=== PATIENT | female | born 1960 | race African-American/Black ===

== ENCOUNTER 2016-12-31 13:04 | Inpatient (IN) | payer MEDICAID ==
[~2016-12-31] VITALS: Ht 154.9 cm; Wt 90.0 kg
[~2016-12-31 13:04] MED LIST: ACET325T16 PO; ALBU2.5V5 NEB; ALPR0.5T5 PO; APIX5TAB PO; ASCO500T3 PO; ASPI81TA2 PO; CARV12.5 PO; CEPH-264 PO; CETI10TA22 PO; CLON0.5T3 PO; DEXT15CA PO; DIGO125T16 PO; FAMO-63 PO; FLUT1DIS5 IH; FURO-68 PO; GABA-585 PO; GLIM2TAB PO; GLUC1KIT IM; INSU100V13 SQ; IPRA3AMP IH; LEVO100T5 PO; LEVOTHYROXINE 100 MCG TABLET PO SCH; LINA5TAB PO; LOPE2TAB56 PO; METF500T4 PO; METO100T11 PO; MONT10TA9 PO; NAPH15DR20 OP; NEO/5DRO EACHEYE; OMEP20TA PO; PRED-220 PO; RISP0.5T18 PO; ROPI1TAB PO; SIME80TA PO; SIMV20TA3 PO; [UNRECOGNIZED DRUG - CODE] PO
--- NOTE | 2016-12-31 13:25 | EKG ---
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
[2016-12-31 13:59] LABS: BASO # 0.1 x10^3/uL (0.0-0.2); BASO % 1 % (0-3); EOS % 3 % (0-3); HEMATOCRIT 33.1 % (36.0-47.0); HEMOGLOBIN 10.8 g/dL (12.0-15.5); LYMPH # 2.5 x10^3/uL (1.0-4.8); LYMPH % 29 % (24-48); MEAN CORPUSCULAR HEMOGLOBIN 30 pg (25-35); MEAN CORPUSCULAR HGB CONC 33 g/dL (31-37); MEAN CORPUSCULAR VOLUME 93 fL (79-100); MONO % 7 % (0-9); NEUT % 60 % (31-73); PLATELET COUNT 168 x10^3/uL (140-400); RED BLOOD COUNT 3.54 x10^6/uL (3.50-5.40); WHITE BLOOD COUNT 8.4 x10^3/uL (4.0-11.0)
[2016-12-31 14:01] LABS: CREATININE 1.1 mg/dL (0.6-1.0); GFR 62.4
[2016-12-31 14:07] LABS: ALBUMIN 3.3 g/dL (3.4-5.0); ALBUMIN/GLOBULIN RATIO 0.8 (1.0-1.7); TOTAL BILIRUBIN 0.2 mg/dL (0.2-1.0); TOTAL PROTEIN 7.7 g/dL (6.4-8.2)
--- NOTE | 2016-12-31 14:15 | RAD ---
Portable chest, 12/31/2016: History: Chest pain, pacemaker failure Comparison is made to a study from 09/30/2016. A left-sided transvenous pacemaker remains in place 3 leads extending into the heart. The patient is rotated to the left. The heart is mildly enlarged. The pulmonary vascularity is normal. No pulmonary infiltrate is seen. A density in the left lateral costophrenic angle is probably due to an epicardial fat pad accentuated by patient rotation. No definite pleural fluid is seen. IMPRESSION: Suboptimal exam demonstrating no acute abnormality.
[2016-12-31 14:16] LABS: CKMB INDEX 0.6 % (0-4)
[2016-12-31] MEDS ORDERED: MAGNESIUM SULFATE 1GM 100 ML IV ONE (15:00)
--- NOTE | 2016-12-31 15:13 | PHYS DOC ---
Past Medical History Past Medical History: Anxiety, Arthritis, CHF, Depression, Diabetes-Type II, GERD, Hypertension, Schizophrenia, Other Additional Past Medical Histor: SCHIZO,RESTLESS LEG Past Surgical History: Pacemaker, Other Additional Past Surgical Histo: Pacemaker/defib Alcohol Use: None Drug Use: None Adult General Chief Complaint Chief Complaint: OTHER COMPLAINTS [facility] HPI Patient is a 56 year old female who presents with complains of left-sided chest pain that was shocking and severe in nature and dropped her to her knees. This occurred approximately 12:10 or 12:30 today. She thinks her ICD fired. She has resultant fatigue. She denies current chest pain. States it was brief. She denies cough, fever or chills, hemoptysis, dyspnea, orthopnea, leg pain or swelling, back pain, abdominal pain. Review of Systems Review of Systems Constitutional: Denies fever or chills [] Eyes: Denies change in visual acuity, redness, or eye pain [] HENT: Denies nasal congestion or sore throat [] Respiratory: Denies cough or shortness of breath [] Cardiovascular: No additional information not addressed in HPI [] GI: Denies abdominal pain, nausea, vomiting, bloody stools or diarrhea [] : Denies dysuria or hematuria [] Musculoskeletal: Denies back pain or joint pain [] Integument: Denies rash or skin lesions [] Neurologic: Denies headache, focal weakness or sensory changes [] Endocrine: Denies polyuria or polydipsia [] Current Medications Current Medications Current Medications Medications (Trade) Dose Ordered Sig/Eber Start Time Stop Time Status Last Admin Dose Admin Levothyroxine Sodium (Synthroid) 100 mcg DAILY06 12/31/16 06:00 12/31/16 18:42 DC Magnesium Sulfate/ Dextrose (Magnesium Sulfate PREMIX 1GM) 100 ml @ 100 mls/hr 1X ONCE 12/31/16 15:00 12/31/16 15:59 DC 12/31/16 15:07 100 MLS/HR Allergies Allergies Allergies Coded Allergies Type Severity Reaction Last Updated Verified lactose Allergy Intermediate 02/25/16 Yes lisinopril Allergy Intermediate 08/08/15 Yes Physical Exam Physical Exam Constitutional: Well developed, well nourished, no acute distress, non-toxic appearance. [] HENT: Normocephalic, atraumatic, bilateral external ears normal, oropharynx moist, nose normal. [] Eyes: PERRLA, EOMI. [] Neck: Normal range of motion, no tenderness, supple. [] Cardiovascular:Heart rate regular rhythm [] Lungs & Thorax: Bilateral breath sounds clear to auscultation. Left upper chest wall tenderness with no palpable or visual abnormality. ICD to left upper chest with no overlying skin changes [] Abdomen: Bowel sounds normal, soft, no tenderness. [] Skin: Warm, dry, no erythema, no rash. [] Back: No tenderness, no CVA tenderness. [] Extremities: No tenderness, ROM intact, no edema. [] Neurologic: Alert and oriented X 3, normal motor function, normal sensory function, no focal deficits noted. [] Psychologic: Affect normal, judgement normal, mood normal. [] Current Patient Data Vital Signs Vital Signs Date Time Temp Pulse Resp B/P Pulse Ox O2 Delivery O2 Flow Rate FiO2 12/31/16 14:44 62 14 118/58 98 Nasal Cannula 2 12/31/16 13:08 98.0 98.0 Lab Values Laboratory Tests Test 12/31/16 13:25 White Blood Count 8.4x10^3/uL (4.0-11.0) Red Blood Count 3.54x10^6/uL (3.50-5.40) Hemoglobin 10.8g/dL (12.0-15.5) L Hematocrit 33.1% (36.0-47.0) L Mean Corpuscular Volume 93fL (79-100) Mean Corpuscular Hemoglobin 30pg (25-35) Mean Corpuscular Hemoglobin Concent 33g/dL (31-37) Red Cell Distribution Width 15.0% (11.5-14.5) H Platelet Count 168x10^3/uL (140-400) Neutrophils (%) (Auto) 60% (31-73) Lymphocytes (%) (Auto) 29% (24-48) Monocytes (%) (Auto) 7% (0-9) Eosinophils (%) (Auto) 3% (0-3) Basophils (%) (Auto) 1% (0-3) Neutrophils # (Auto) 5.0x10^3uL (1.8-7.7) Lymphocytes # (Auto) 2.5x10^3/uL (1.0-4.8) Monocytes # (Auto) 0.6x10^3/uL (0.0-1.1) Eosinophils # (Auto) 0.2x10^3/uL (0.0-0.7) Basophils # (Auto) 0.1x10^3/uL (0.0-0.2) Sodium Level 141mmol/L (136-145) Potassium Level 4.0mmol/L (3.5-5.1) Chloride Level 101mmol/L (98-107) Carbon Dioxide Level 32mmol/L (21-32) Anion Gap 8 (6-14) Blood Urea Nitrogen 12mg/dL (7-20) Creatinine 1.1mg/dL (0.6-1.0) H Estimated GFR (Cockcroft-Gault) 62.4 BUN/Creatinine Ratio 11 (6-20) Glucose Level 168mg/dL (70-99) H Calcium Level 9.0mg/dL (8.5-10.1) Magnesium Level 1.7mg/dL (1.8-2.4) L Total Bilirubin 0.2mg/dL (0.2-1.0) Aspartate Amino Transferase (AST) 25U/L (15-37) Alanine Aminotransferase (ALT) 28U/L (14-59) Alkaline Phosphatase 103U/L (46-116) Creatine Kinase 164U/L (26-192) Creatine Kinase MB (Mass) 1.0ng/mL (0.0-3.6) Creatine Kinase MB Relative Index 0.6% (0-4) Troponin I Quantitative < 0.017ng/mL (0.000-0.055) Total Protein 7.7g/dL (6.4-8.2) Albumin 3.3g/dL (3.4-5.0) L Albumin/Globulin Ratio 0.8 (1.0-1.7) L Laboratory Tests 12/31/16 13:25 Laboratory Tests 12/31/16 13:25 EKG EKG EKG as interpreted by me as Ventricularly paced rhythm, rate 73, PVC, no ischemic changes Radiology/Procedures Radiology/Procedures Chest xray as interpreted by me with no acute cardiopulmonary disease process Course & Med Decision Making Course & Med Decision Making Pertinent Labs and Imaging studies reviewed. (See chart for details) Workup is unremarkable other than hypomagnesemia which is replaced IV. Her [facility] pacer interrogation showed no events causing her symptoms. We will admit for ACS rule out. Discussed case with Geovanna CORBIN, cardiology. Discussed case with Dr. Leon, who will admit. Lisa Disclaimer Juan Albertoon Disclaimer This electronic medical record was generated, in whole or in part, using a voice recognition dictation system. Departure Departure Impression: Primary Impression: Chest pain Additional Impression: Hypomagnesemia Disposition: ADMITTED INPATIENT Condition: STABLE Referrals: YAW MTZ (PCP) Problem Qualifiers Primary Impression: Chest pain Chest pain type: unspecified Qualified Code: R07.9 - Chest pain, unspecified Guerline BLEDSOE MD Dec 31, 2016 15:13
[2016-12-31] MEDS ORDERED: ONDANSETRON PF 4 MG/2 ML VIAL. IV PRN ×2 (15:15→17:47)
[2016-12-31] MEDS ORDERED: FENTANYL PF 100 MCG/2 ML VIAL. IV PRN (15:15)
[2016-12-31] MEDS ORDERED: ACETAMINOPHEN 325 MG TABLET. PO PRN ×2 (15:15→18:00)
--- NOTE | 2016-12-31 16:33 | PDOC2 ---
YADY HUMPHREY ADDICTION PSYCHIATRIST 12/31/16 1633: CARDIAC CONSULT DATE OF CONSULT Date of Consult DATE: 12/31/16 TIME: 16:15 REASON FOR CONSULT Reason for Consult: chest pain REFERRING PHYSICIAN Referring Physician: Dr. Eliud Pizarro SOURCE Source: Chart review, Patient HISTORY OF PRESENT ILLNESS HISTORY OF PRESENT ILLNESS 56 year old female who was eating lunch today when she developed a "light pain" in the left chest without radiation or associated symptoms. Does report palpations. She though her ICD had fired and presented to the ER. Interrogation has been completed without evidence of device shocking pt and with appropriate function. Has a history of tachydysrhythmias occurring in September with multiple ICD shocks with subsequent lengthening of the VT zone and resolution of symptoms. EKG with V pacing; atrial sensing. Initial troponin not consistent with AMI. Mg 1.7 and has been replaced. 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) Pulmonary: Asthma CENTRAL NERVOUS SYSTEM: Other (restless legs; sleep disorder) GI: GERD, Other (dysphagia) Heme/Onc: No pertinent hx Hepatobiliary: No pertinent hx Psych: Anxiety, Depression, Schizophrenia Musculoskeletal: Osteoarthritis, Other (obesity) Rheumatologic: No pertinent hx Infectious disease: No pertinent hx ENT: No pertinent hx Renal/: UTI Endocrine: Diabetes, Hypothyroidism PAST SURGICAL HISTORY Past Surgical History Pacemaker ([facility] [employer] DRIVER-D; [employer] leads) FAMILY HISTORY Family History: Family History Unknown SOCIAL HISTORY Social History Smoke: <1 pack per day ALCOHOL: none Drugs: None Lives: Long Term CURRENT MEDICATIONS CURRENT MEDICATIONS Current Medications Medications (Trade) Dose Ordered Sig/Eber Route PRN Reason Start Time Stop Time Status Last Admin Dose Admin Magnesium Sulfate/ Dextrose (Magnesium Sulfate PREMIX 1GM) 100 ml @ 100 mls/hr 1X ONCE IV 12/31/16 15:00 12/31/16 15:59 DC 12/31/16 15:07 ALLERGIES ALLERGIES: Coded Allergies: lactose (Verified Allergy, Intermediate, 02/25/16) lisinopril (Verified Allergy, Intermediate, 08/08/15) ROS Review of System 14 point review completed with pertinent positives in HPI PHYSICAL EXAM General: Alert, Oriented X3, Cooperative, No acute distress HEENT: Atraumatic, PERRLA Lungs: Clear to auscultation, Normal air movement Heart: Regular rate, Normal S1, Normal S2, No murmurs, Other (well healed ICD implant site left pectoral ) Abdomen: Normal bowel sounds, Soft, No tenderness Extremities: No edema, Normal pulses Skin: No rashes Neuro: Normal speech Psych/Mental Status: Mental status NL, Mood NL MUSCULOSKELETAL: No deformity VITALS VITALS Vital Signs Date Time Temp Pulse Resp B/P Pulse Ox O2 Delivery O2 Flow Rate FiO2 12/31/16 13:08 98.0 65 15 153/74 99 Nasal Cannula 2 98.0 LABS Lab: Laboratory Tests Test 12/31/16 13:25 White Blood Count 8.4x10^3/uL (4.0-11.0) Red Blood Count 3.54x10^6/uL (3.50-5.40) Hemoglobin 10.8g/dL (12.0-15.5) Hematocrit 33.1% (36.0-47.0) Mean Corpuscular Volume 93fL (79-100) Mean Corpuscular Hemoglobin 30pg (25-35) Mean Corpuscular Hemoglobin Concent 33g/dL (31-37) Red Cell Distribution Width 15.0% (11.5-14.5) Platelet Count 168x10^3/uL (140-400) Neutrophils (%) (Auto) 60% (31-73) Lymphocytes (%) (Auto) 29% (24-48) Monocytes (%) (Auto) 7% (0-9) Eosinophils (%) (Auto) 3% (0-3) Basophils (%) (Auto) 1% (0-3) Neutrophils # (Auto) 5.0x10^3uL (1.8-7.7) Lymphocytes # (Auto) 2.5x10^3/uL (1.0-4.8) Monocytes # (Auto) 0.6x10^3/uL (0.0-1.1) Eosinophils # (Auto) 0.2x10^3/uL (0.0-0.7) Basophils # (Auto) 0.1x10^3/uL (0.0-0.2) Sodium Level 141mmol/L (136-145) Potassium Level 4.0mmol/L (3.5-5.1) Chloride Level 101mmol/L (98-107) Carbon Dioxide Level 32mmol/L (21-32) Anion Gap 8 (6-14) Blood Urea Nitrogen 12mg/dL (7-20) Creatinine 1.1mg/dL (0.6-1.0) Estimated GFR (Cockcroft-Gault) 62.4 BUN/Creatinine Ratio 11 (6-20) Glucose Level 168mg/dL (70-99) Calcium Level 9.0mg/dL (8.5-10.1) Magnesium Level 1.7mg/dL (1.8-2.4) Total Bilirubin 0.2mg/dL (0.2-1.0) Aspartate Amino Transf (AST/SGOT) 25U/L (15-37) Alanine Aminotransferase (ALT/SGPT) 28U/L (14-59) Alkaline Phosphatase 103U/L (46-116) Creatine Kinase 164U/L (26-192) Creatine Kinase MB (Mass) 1.0ng/mL (0.0-3.6) Creatine Kinase MB Relative Index 0.6% (0-4) Troponin I Quantitative < 0.017ng/mL (0.000-0.055) Total Protein 7.7g/dL (6.4-8.2) Albumin 3.3g/dL (3.4-5.0) Albumin/Globulin Ratio 0.8 (1.0-1.7) IMAGES IMAGES CXR: Comparison is made to a study from 09/30/2016. A left-sided transvenous pacemaker remains in place 3 leads extending into the heart. The patient is rotated to the left. The heart is mildly enlarged. The pulmonary vascularity is normal. No pulmonary infiltrate is seen. A density in the left lateral costophrenic angle is probably due to an epicardial fat pad accentuated by patient rotation. No definite pleural fluid is seen. IMPRESSION: Suboptimal exam demonstrating no acute abnormality. EKG EKG no acute changes ECHOCARDIOGRAM ECHOCARDIOGRAM 02/2016: TTE: Moderate LV systolic dysfunction. EF 35-40%. Moderate mitral regurgitation. ASSESSMENT/PLAN ASSESSMENT/PLAN 1. chest pain no acute changes in EKG and initial troponin not consistent with AMI continue serial markers re-evaluate in a.m. 2. 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 chronic systolic HF with mod MR well compensated continue medical management 4. HTN controlled with meds 5. HLD continue statin therapy 6. atrial fib history rate control with BB OAC with Eliquis Problems: DEANNA PEMBERTON MD 12/31/16 1724: CARDIAC CONSULT ALLERGIES ALLERGIES: Coded Allergies: lactose (Verified Allergy, Intermediate, 02/25/16) lisinopril (Verified Allergy, Intermediate, 08/08/15) ASSESSMENT/PLAN ASSESSMENT/PLAN Patient seen and examined agree with progress practitioner note. 56-year-old woman well known to us with prior history of atrial fibrillation with a rapid ventricular response and inappropriate ICD shocks who presents with what appears to be a feeling of recurrent shocks. Her ICD interrogation today did not reveal any significant pathology. Patient has had some GI upset and given her cognitive impairment this is likely the cause of her symptoms. No further cardiac testing necessary at this time. Continue supportive care. Monitor overnight for any arrhythmias. Okay to discharge back to nursing facility tomorrow. Thank you for this consultation. Problems: YADY HUMPHREY APRN Dec 31, 2016 16:33 DEANNA PEMBERTON MD Dec 31, 2016 17:24
--- NOTE | 2016-12-31 16:50 | PDOC1 ---
History and Physical Date of Admission Date of Admission DATE: 12/31/16 TIME: 16:44 Identification/Chief Complaint Chief Complaint syncope while eating at [facility] Source Source: Caregiver, Chart review, Patient History of Present Illness History of Present Illness 56 y/o female, poor historian, resident of [facility] few yrs now, was eating a meatloaf and claims passed out, Unsure of details, She felt her heart palpitating she says prior to passing out, NO other sxs. HAs an indwelling defib /pacer for tachyarrhythmias (reason for previous admits). Now feels ok, hungry, munching on some chips PAcer interrogated, apparently no firing Pt admitted under the advice of cards I last saw her Sep 1016 for the ff: 1. Tachycardia/SVT/AFIB RVR with ICD SHOCK 2. CHF, systolic, stable, mod MR 3. htn 4. HLD 5. DM2 6.Hx of schizophrenia 7. Depression 8. anxiety 9. GERD Past Medical History Cardiovascular: CHF, HTN, Hyperlipidemia, Other Pulmonary: Asthma CENTRAL NERVOUS SYSTEM: Other GI: GERD, Other Heme/Onc: No pertinent hx Hepatobiliary: No pertinent hx Psych: Anxiety, Depression, Schizophrenia Musculoskeletal: Osteoarthritis, Other Rheumatologic: No pertinent hx Infectious disease: No pertinent hx Renal/: UTI Endocrine: Diabetes, Hypothyroidism Past Surgical History Past Surgical History: Pacemaker Family History Family History: Family History Unknown Social History Smoke: No ALCOHOL: none Drugs: None Current Problem List Problem List Problems Medical Problems: (1) Chest pain Status: Acute Problems: Current Medications Current Medications Current Medications Magnesium Sulfate/ Dextrose (Magnesium Sulfate PREMIX 1GM) 100 ml @ 100 mls/hr 1X ONCE IV Last administered on 12/31/16t 15:07; Start 12/31/16 at 15:00; Stop 12/31/16 at 15:59; Status DC Ondansetron HCl (Zofran) 4 mg PRN Q8HRS PRN IV NAUSEA/VOMITING; Start 12/31/16 at 15:15; Stop 01/01/17 at 15:14 Fentanyl Citrate (Fentanyl 2ml Vial) 50 mcg PRN Q2HR PRN IV PAIN; Start at 15:15; Stop 01/01/17 at 15:14 Acetaminophen (Tylenol) 650 mg PRN Q4HRS PRN PO FEVER; Start 12/31/16 at 15:15 ; Stop 01/01/17 at 15:14 Active Scripts Active Mapap (Acetaminophen) 325 Mg Tablet 650 Mg PO PRN Q6HRS PRN Metoprolol Succinate ( Xl ) (Metoprolol Succinate) 100 Mg Tab.er.24h 100 Mg PO DAILY Lanoxin (Digoxin) 125 Mcg Tablet 125 Mcg PO DAILY Eliquis (Apixaban) 5 Mg Tablet 5 Mg PO BID Reported Clonazepam 0.5 Mg Tablet 1 Tab PO BID Zyrtec (Cetirizine Hcl) 10 Mg Tablet 1 Tab PO DAILY Ascorbic Acid 500 Mg Tablet 500 Mg PO BID Tradjenta (Linagliptin) 5 Mg Tablet 1 Tab PO DAILY Simvastatin 20 Mg Tablet 1 Tab PO QHS Risperdal (Risperidone) 0.5 Mg Tablet 1 Tab PO QHS Requip (Ropinirole Hcl) 1 Mg Tablet 1 Tab PO QHS Pepcid (Famotidine) 20 Mg Tablet 1 Tab PO BID Omeprazole 20 Mg Tablet.dr 1 Tab PO DAILY Naphazoline Hcl 15 Ml Drops 15 Ml OP Q4HRS PRN Montelukast Sodium Tablet (Montelukast Sodium) 10 Mg Tablet 1 Tab PO DAILY Metformin Hcl 500 Mg Tablet 0.5 Tab PO BID Anti-Diarrhea (Loperamide Hcl) 2 Mg Tablet 2 Mg PO DAILY PRN Levothyroxine Sodium 100 Mcg Tablet 1 Tab PO DAILY Levemir (Insulin Detemir) 100 Unit/1 Ml Vial 20 Unit SQ BID Lasix (Furosemide) 40 Mg Tablet 1 Tab PO DAILY Lactase Enzyme (Lactase) 4,500 Unit Tablet 4,500 Unit PO Duoneb 0.5-3(2.5) Mg/3 Ml (Albuterol/Ipratropium) 3 Ml Ampul.neb 3 Ml IH QID Glucagon Emergency Kit (Glucagon,Human Recombinant) 1 Mg Kit 1 Mg IM PRN Gas-X (Simethicone) 80 Mg Tab.chew 160 Mg PO Q2HR PRN Gabapentin 100 Mg Capsule 200 Mg PO TID Cough Relief (Dextromethorphan Hbr) 15 Mg Capsule 15 Mg PO Q6HRS PRN Aspirin 81 Mg Tab.chew 1 Tab PO DAILY Amaryl (Glimepiride) 2 Mg Tablet 2 Mg PO DAILY Alprazolam Er (Alprazolam) 0.5 Mg Tab.er.24h 0.25 Mg PO TID Albuterol Sulfate Neb Soln (Albuterol Sulfate) 2.5 Mg/3 Ml Vial.neb 1 Vial NEB PRN Q4HRS Advair 500-50 Diskus (Fluticasone/Salmeterol) 1 Each Disk.w.dev 1 Puff IH BID Allergies Allergies: Coded Allergies: lactose (Verified Allergy, Intermediate, 02/25/16) lisinopril (Verified Allergy, Intermediate, 08/08/15) ROS General: No: Appetite, Chills, Fatigue, Malaise, Night Sweats, Other PSYCHOLOGICAL ROS: No: Anxiety, Behavioral Disorder, Concentration difficultie , Decreased libido, Depression, Disorientation, Hallucinations, Hostility, Irritablity, Memory difficulties, Mood Swings, Obsessive thoughts, Other, Physical abuse, Sexual abuse, Sleep disturbances, Suicidal ideation Eyes: No Blurry vision, No Decreased vision, No Double vision, No Dry eyes, No Excessive tearing, No Eye Pain, No Itchy Eyes, No Loss of vision, No Other, No Photophobia, No Scotomata, No Uses contacts, No Uses glasses HEENT: No: Epistaxis, Heacaches, Hearing change, Nasal congestion, Nasal discharge, Oral lesions, Other, Sinus pain, Sneezing, Snoring, Sore Throat, Tinnitus, Vertigo, Visual Changes, Vocal changes ALLERGY AND IMMUNOLOGY: No: Hives, Insect Bite Sensitivity, Itchy/Watery Eyes, Nasal Congestion, Other, Post Nasal Drip, Seasonal Allergies Hematological and Lymphatic: No: Bleeding Problems, Blood Clots, Blood Transfusions, Brusing, Night Sweats, Other, Pallor, Swollen Lymph Nodes ENDOCRINE: No: Breast Changes, Galactorrhea, Hair Pattern Changes, Hot Flashes , Malaise/lethargy, Mood Swings, Other, Palpitations, Polydipsia/polyuria, Skin Changes, Temperature Intolerance, Unexpected Weight Changes Breast: No New/Changing Breast Lumps, No Nipple changes, No Nipple discharge, No Other Respiratory: No: Cough, Hemoptysis, Orthopnea, Other, Pleuritic Pain, SOB with excertion, Shortness of breath, Sputum Changes, Stridor, Tachypnea, Wheezing Cardiovascular: No Chest Pain, No Edema, No Lt Headedness, No Orthopnea, No Other, No Palpitations, No Paroxysmal Noc. Dyspnea Gastrointestinal: No Abdominal Pain, No Constipation, No Diarrhea, No Hematochezia, No Melena, No Nausea, No Other, No Vomiting Genitourinary: No , No , No , No , No , No , No , No Discharge, No Dysuria, No Flank Pain, No Frequency, No Hematuria, No Incontinence, No Other, No Pain, No Retention, No Urgency Musculoskeletal: No Gait Disturbance, No Joint Pain, No Joint Stiffness, No Joint Swelling, No Muscle Pain, No Muscular Weakness, No Other, No Pain In:, No Swelling In: Neurological: No Behavorial Changes, No Bowel/Bladder ControlChng, No Confusion , No Dizziness, No Gait Disturbance, No Headaches, No Impaired Coord/balance, No Memory Loss, No Numbness/Tingling, No Other, No Seizures, No Speech Problems , No Tremors, No Visual Changes, No Weakness Skin: No Acne, No Dry Skin, No Eczema, No Hair Changes, No Lumps, No Mole Changes, No Mottling, No Nail Changes, No Other, No Pruritus, No Rash, No Skin Lesion Changes Physical Exam General: Alert, Oriented X3, Cooperative, No acute distress HEENT: Atraumatic, PERRLA Lungs: Clear to auscultation Heart: S1S2, RRR, no thrills, no rubs Cardiovascular: S1 Breasts: Normal Abdomen: Normal bowel sounds, Soft, No tenderness, No hepatosplenomegaly, No masses Rectal Exam: not examined Extremities: No clubbing, No cyanosis, No edema, Normal pulses, No tenderness/ swelling Skin: No rashes, No breakdown, No significant lesion Neuro: Normal gait, Normal speech, Strength at 5/5 X4 ext, Normal tone, Sensation intact, Cranial nerves 3-12 NL, Reflexes 2+ Psych/Mental Status: Mental status NL, Mood NL Vitals Vitals Vital Signs Date Time Temp Pulse Resp B/P Pulse Ox O2 Delivery O2 Flow Rate FiO2 12/31/16 13:08 98.0 65 15 153/74 99 Nasal Cannula 2 98.0 Labs Labs Laboratory Tests Test 12/31/16 13:25 White Blood Count 8.4x10^3/uL (4.0-11.0) Red Blood Count 3.54x10^6/uL (3.50-5.40) Hemoglobin 10.8g/dL (12.0-15.5) Hematocrit 33.1% (36.0-47.0) Mean Corpuscular Volume 93fL (79-100) Mean Corpuscular Hemoglobin 30pg (25-35) Mean Corpuscular Hemoglobin Concent 33g/dL (31-37) Red Cell Distribution Width 15.0% (11.5-14.5) Platelet Count 168x10^3/uL (140-400) Neutrophils (%) (Auto) 60% (31-73) Lymphocytes (%) (Auto) 29% (24-48) Monocytes (%) (Auto) 7% (0-9) Eosinophils (%) (Auto) 3% (0-3) Basophils (%) (Auto) 1% (0-3) Neutrophils # (Auto) 5.0x10^3uL (1.8-7.7) Lymphocytes # (Auto) 2.5x10^3/uL (1.0-4.8) Monocytes # (Auto) 0.6x10^3/uL (0.0-1.1) Eosinophils # (Auto) 0.2x10^3/uL (0.0-0.7) Basophils # (Auto) 0.1x10^3/uL (0.0-0.2) Sodium Level 141mmol/L (136-145) Potassium Level 4.0mmol/L (3.5-5.1) Chloride Level 101mmol/L (98-107) Carbon Dioxide Level 32mmol/L (21-32) Anion Gap 8 (6-14) Blood Urea Nitrogen 12mg/dL (7-20) Creatinine 1.1mg/dL (0.6-1.0) Estimated GFR (Cockcroft-Gault) 62.4 BUN/Creatinine Ratio 11 (6-20) Glucose Level 168mg/dL (70-99) Calcium Level 9.0mg/dL (8.5-10.1) Magnesium Level 1.7mg/dL (1.8-2.4) Total Bilirubin 0.2mg/dL (0.2-1.0) Aspartate Amino Transf (AST/SGOT) 25U/L (15-37) Alanine Aminotransferase (ALT/SGPT) 28U/L (14-59) Alkaline Phosphatase 103U/L (46-116) Creatine Kinase 164U/L (26-192) Creatine Kinase MB (Mass) 1.0ng/mL (0.0-3.6) Creatine Kinase MB Relative Index 0.6% (0-4) Troponin I Quantitative < 0.017ng/mL (0.000-0.055) Total Protein 7.7g/dL (6.4-8.2) Albumin 3.3g/dL (3.4-5.0) Albumin/Globulin Ratio 0.8 (1.0-1.7) Laboratory Tests Test 12/31/16 13:25 White Blood Count 8.4x10^3/uL (4.0-11.0) Red Blood Count 3.54x10^6/uL (3.50-5.40) Hemoglobin 10.8g/dL (12.0-15.5) Hematocrit 33.1% (36.0-47.0) Mean Corpuscular Volume 93fL (79-100) Mean Corpuscular Hemoglobin 30pg (25-35) Mean Corpuscular Hemoglobin Concent 33g/dL (31-37) Red Cell Distribution Width 15.0% (11.5-14.5) Platelet Count 168x10^3/uL (140-400) Neutrophils (%) (Auto) 60% (31-73) Lymphocytes (%) (Auto) 29% (24-48) Monocytes (%) (Auto) 7% (0-9) Eosinophils (%) (Auto) 3% (0-3) Basophils (%) (Auto) 1% (0-3) Neutrophils # (Auto) 5.0x10^3uL (1.8-7.7) Lymphocytes # (Auto) 2.5x10^3/uL (1.0-4.8) Monocytes # (Auto) 0.6x10^3/uL (0.0-1.1) Eosinophils # (Auto) 0.2x10^3/uL (0.0-0.7) Basophils # (Auto) 0.1x10^3/uL (0.0-0.2) Sodium Level 141mmol/L (136-145) Potassium Level 4.0mmol/L (3.5-5.1) Chloride Level 101mmol/L (98-107) Carbon Dioxide Level 32mmol/L (21-32) Anion Gap 8 (6-14) Blood Urea Nitrogen 12mg/dL (7-20) Creatinine 1.1mg/dL (0.6-1.0) Estimated GFR (Cockcroft-Gault) 62.4 BUN/Creatinine Ratio 11 (6-20) Glucose Level 168mg/dL (70-99) Calcium Level 9.0mg/dL (8.5-10.1) Magnesium Level 1.7mg/dL (1.8-2.4) Total Bilirubin 0.2mg/dL (0.2-1.0) Aspartate Amino Transf (AST/SGOT) 25U/L (15-37) Alanine Aminotransferase (ALT/SGPT) 28U/L (14-59) Alkaline Phosphatase 103U/L (46-116) Creatine Kinase 164U/L (26-192) Creatine Kinase MB (Mass) 1.0ng/mL (0.0-3.6) Creatine Kinase MB Relative Index 0.6% (0-4) Troponin I Quantitative < 0.017ng/mL (0.000-0.055) Total Protein 7.7g/dL (6.4-8.2) Albumin 3.3g/dL (3.4-5.0) Albumin/Globulin Ratio 0.8 (1.0-1.7) VTE Prophylaxis Ordered VTE Prophylaxis Devices: Yes VTE Pharmacological Prophylaxi: Yes Assessment/Plan Assessment/Plan 1. Syncope could be sec to arrhythmia, apparently pacer did not fire based on interrogation at ER. 2. TACHYarrhythmias with indwelling pacer 2.SNU resident 3. CHF, systolic, stable, mod MR 4. htn 5. HLD 6. DM2 7.Hx of schizophrenia 8. Depression 9. anxiety 10. GERD PLAn: Admit Further plans per cards resume home meds MIght need to adjust rate controlling agents, pending course here [facility] tele PT/OT while in house Seen at ER , dw pt LOUIS ELIZABETH MD Dec 31, 2016 16:49
--- NOTE | 2016-12-31 16:58 | ACF ---
Admission Forms Criteria CHEST PAIN Clinical Indications for Admission to Inpatient Care (Place 'X' for any and all applicable criteria): Admission is indicated for chest pain and ANY ONE of the following(1)(2)(3)(4)(5 ): [ ]I. Angina with acute coronary syndrome (Also use Myocardial Infarction or Angina guideline) [ ]II. Hemodynamic instability [ ]III. Angina needing acute intervention as indicated by ALL of the following( 11)(12): [ ]a) Unstable angina is present as indicated by angina that is ANY ONE of the following: [ ]i) New onset [ ]ii) Nocturnal [ ]iii) Prolonged at rest [ ]iv) Progressive [ ]b) Angina warrants acute intervention as indicated by ANY ONE of the following: [ ]i) Recurrent angina (e.g, not responding as previously to treatment) [ ]ii) Angina at rest or with low-level activities despite initial medical therapy [ ]iii) New or presumably new ST-segment depression on ECG [ ]iv) Signs or symptoms of heart failure (eg, dyspnea, pulmonary edema) [ ]v) New or worsening mitral regurgitation [ ]vi) Hemodynamic instability [ ]vii) Dangerous arrhythmia (eg, sustained ventricular tachycardia) [ ]viii) History of percutaneous coronary intervention within 6 months [ ]ix) History of coronary artery bypass graft surgery [ ]x) LINNETTE risk score of 2 or greater[A] [ ]xi) History of Diabetes(14) [ ]xii) High-risk cardiac ischemia findings on noninvasive testing (e.g, echocardiogram, treadmill testing, nuclear scan) [ ]xiii) Chronic renal insufficiency (ie, estimated GFR less than 60 mL/min/1.732m) [ ]xiv) Left ventricular ejection fraction less than 40% [ ]IV. Evidence of TN (eg, cardiac biomarkers positive, ST-segment elevation on ECG) also use Myocardial Infarction Criteria Form. [ ]V. Pulmonary edema [ ]. Respiratory distress [ ]VII. Chest pain indicative of serious diagnosis other than coronary artery disease (eg, aortic dissection) [ ]VIII. Contraindications and/or Inappropriate clinical situations for Observational Care in patients with Chest Pain, when ANY ONE of the following is required: [ ]a) Patient with risk factor for pulmonary embolism, acute coronary syndrome and myocardial infarction (18) [ ]b) Patient with Pulmonary embolism require an average LOS of 4.3 days, therefore emergency department observation management is inappropriate 18,23 [ ]c) Painful condition/s in the elderly, have the highest rate of recidivism after emergency department observation management (10.8%) 20,21,22 [ ]d) Elevated cardiac biomarker requires intensive and exhaustive care (19) [X]IX. General contraindications and/or Inappropriate clinical situations for Observational Care in patients with Chest Pain, when ANY ONE of the following is required: [X]a) Prediction of prolongation of LOS based on ANY ONE of the following may be considered as a contraindication for observational care 2, 3, 4, 5, 6, 7, 8, 9, 10, 11 [ ]i) Age > 65 yrs. [ ]ii) Patient arriving by ambulance [ ]iii) Patient with high acuity [X]iv) Patient requiring vital sign monitoring [ ]v) Patient on IV medication [ ]b) Systolic blood pressures 180mmHg 3,12 [ ]c) Patient with altered mental status including delirium and other alteration of consciousness, (3) [ ]d) Patient whose discharge disposition will be to a nursing home home or rehabilitation home should not be managed in Emergency Department Observation Unit. CMS rule requires 3 days hospital stay before such placement. 3,13 [ ]e) Patient with failure to thrive due to broad array of etiologies 3,16,17 [ ]f) Inability to ambulate 3,14 Extended stay beyond goal length of stay may be needed for (1)(28): [ ]a) Specific condition diagnosed after evaluation (eg, pulmonary embolism, aortic dissection) [ ]b) Unstable angina [ ]c) Continued suspicion of acute coronary syndrome with inability to complete needed cardiac evaluation (eg, patient clinically unable to undergo stress testing) [ ]d) Myocardial infarction (Contents from ANGINA and CHEST PAIN clinical indications for admission to inpatient care have been integrated in this form) The original [facility] content created by [employer] has been revised. The portions of the content which have been revised are identified through the use of italic text or in bold, and [employer] has neither reviewed nor approved the modified material. All other unmodified content is copyright [employer] [facility]. Please see references footnoted in the original [facility] [employer] edition 2016 Admission Criteria Met?: Yes JEFFERY JEAN Dec 31, 2016 16:58
[2016-12-31 17:55] VITALS: BP 144/69
[2016-12-31] MEDS ORDERED: DEXTROSE 50% 25 GM / 50ML DISP.SYRIN. IV PRN (18:00)
[2016-12-31] MEDS ORDERED: SIMETHICONE 80 MG TAB.CHEW PO PRN (18:00)
[2016-12-31] MEDS ORDERED: ALBUTEROL SULFATE 2.5 MG/3 ML NEBU. NEB PRN (18:00)
[2016-12-31] MEDS ORDERED: GLUCAGON,HUMAN RECOMBINANT 1 MG/ML VIAL. IM PRN (18:15)
[2016-12-31] MEDS ORDERED: LOPERAMIDE 2 MG CAPSULE PO PRN (18:15)
[2016-12-31] MEDS ORDERED: TETRAHYDROZOLINE 0.05% OPHTH SOLUTION 15ML BOTTLE. OU PRN (18:15)
[2016-12-31] MEDS ORDERED: GUAIFENESIN DM 200MG/20MG 10 ML SYRUP. PO PRN (18:15)
[2016-12-31] MEDS: METOPROLOL SUCC 24HR ER 100 MG TAB.ER.24H. PO SCH (18:28)
[2016-12-31] MEDS: METFORMIN 500 MG TABLET. PO SCH (18:28)
[2016-12-31 19:40] VITALS: BP 129/60
[2016-12-31] MEDS ORDERED: BUDESONIDE 0.5 MG/2 ML NEBU NEB SCH (20:00)
[2016-12-31] MEDS: IPRATRPIUM/ALBUTEROL 0.5/2.5MG 3 ML NEBU. IH SCH (20:11)
[2016-12-31] MEDS ORDERED: MONTELUKAST SODIUM 10 MG TABLET. PO SCH (21:00)
[2016-12-31] MEDS ORDERED: risperiDONE 0.25 MG TABLET. PO SCH (21:00)
[2016-12-31] MEDS ORDERED: rOPINIRole 1 MG TABLET. PO SCH (21:00)
[2016-12-31] MEDS ORDERED: SIMVASTATIN 20 MG TABLET PO SCH (21:00)
[2016-12-31] MEDS: GABAPENTIN 100 MG CAPSULE. PO SCH (21:44)
[2016-12-31] MEDS: ALPRAZOLAM 0.25 MG TABLET PO SCH (21:45)
[2016-12-31] MEDS: APIXABAN 5 MG TABLET. PO SCH (21:45)
[2016-12-31] MEDS: CLONAZEPAM 0.5 MG TABLET PO SCH (21:45)
[2016-12-31] MEDS: FAMOTIDINE 20 MG TABLET. PO SCH (21:45)
[2016-12-31] MEDS: ASCORBIC ACID 500 MG TABLET PO SCH (21:45)
[2016-12-31] MEDS: INSULIN DETEMIR 300 UNITS/3 ML INSULN.PEN. SQ SCH (21:58)
[2016-12-31 23:50] VITALS: BP 102/56
[2017-01-01] MEDS ORDERED: LEVOTHYROXINE 100 MCG TABLET PO SCH (06:00)
[2017-01-01 07:06] VITALS: BP 150/70
[2017-01-01] MEDS: IPRATRPIUM/ALBUTEROL 0.5/2.5MG 3 ML NEBU. IH SCH ×2 (07:14→11:26)
[2017-01-01] MEDS ORDERED: PANTOPRAZOLE 40 MG TABLET. PO SCH (07:30)
[2017-01-01] MEDS ORDERED: INSULIN ASPART 300 UNITS/3 ML INSULN.PEN SQ SCH (08:00)
[2017-01-01] MEDS ORDERED: LINAGLIPTIN 5 MG TABLET PO SCH (09:00)
[2017-01-01] MEDS ORDERED: DIGOXIN 125 MCG TABLET PO SCH (09:00)
[2017-01-01] MEDS ORDERED: GLIMEPIRIDE 2 MG TABLET PO SCH (09:00)
[2017-01-01] MEDS ORDERED: CETIRIZINE HCL 10 MG TABLET PO SCH (09:00)
[2017-01-01] MEDS ORDERED: FUROSEMIDE 40 MG TABLET PO SCH (09:00)
[2017-01-01] MEDS ORDERED: ASPIRIN 81 MG TAB.CHEW PO SCH (09:00)
[2017-01-01] MEDS: ALPRAZOLAM 0.25 MG TABLET PO SCH (09:16)
[2017-01-01] MEDS: METFORMIN 500 MG TABLET. PO SCH (09:16)
[2017-01-01] MEDS: GABAPENTIN 100 MG CAPSULE. PO SCH (09:16)
[2017-01-01] MEDS: ASCORBIC ACID 500 MG TABLET PO SCH (09:17)
[2017-01-01] MEDS: METOPROLOL SUCC 24HR ER 100 MG TAB.ER.24H. PO SCH (09:17)
[2017-01-01] MEDS: APIXABAN 5 MG TABLET. PO SCH (09:18)
[2017-01-01] MEDS: CLONAZEPAM 0.5 MG TABLET PO SCH (09:19)
[2017-01-01] MEDS: FAMOTIDINE 20 MG TABLET. PO SCH (09:19)
[2017-01-01] MEDS: INSULIN DETEMIR 300 UNITS/3 ML INSULN.PEN. SQ SCH (09:24)
[2017-01-01 10:01] VITALS: BP 135/68
[2017-01-01] MEDS ORDERED: ANTI-COAG MONITOR BY PHARMACY. MC PRN (10:45)
--- NOTE | 2017-01-01 11:07 | PDOC ---
CARDIO Progress Notes Date and Time Date of Service 01/01/17 Time of Evaluation 1010 Subjective Subjective: No Chest Pain, No shortness of breath, No Palpitations, Other ( wants to sleep) Vitals Vitals Vital Signs Date Time Temp Pulse Resp B/P Pulse Ox O2 Delivery O2 Flow Rate FiO2 01/01/17 10:01 98.2 75 16 135/68 97 Nasal Cannula 2.0 98.2 Weight Weight [ ] Input and Output Intake and Output Intake and Output 01/01/17 07:00 Intake Total 550 ml Balance 550 ml Intake Oral 550 ml # Voids 2 Laboratory Labs Laboratory Tests Test 12/31/16 13:25 12/31/16 18:13 12/31/16 19:03 12/31/16 21:15 White Blood Count 8.4x10^3/uL (4.0-11.0) Red Blood Count 3.54x10^6/uL (3.50-5.40) Hemoglobin 10.8g/dL (12.0-15.5) Hematocrit 33.1% (36.0-47.0) Mean Corpuscular Volume 93fL (79-100) Mean Corpuscular Hemoglobin 30pg (25-35) Mean Corpuscular Hemoglobin Concent 33g/dL (31-37) Red Cell Distribution Width 15.0% (11.5-14.5) Platelet Count 168x10^3/uL (140-400) Neutrophils (%) (Auto) 60% (31-73) Lymphocytes (%) (Auto) 29% (24-48) Monocytes (%) (Auto) 7% (0-9) Eosinophils (%) (Auto) 3% (0-3) Basophils (%) (Auto) 1% (0-3) Neutrophils # (Auto) 5.0x10^3uL (1.8-7.7) Lymphocytes # (Auto) 2.5x10^3/uL (1.0-4.8) Monocytes # (Auto) 0.6x10^3/uL (0.0-1.1) Eosinophils # (Auto) 0.2x10^3/uL (0.0-0.7) Basophils # (Auto) 0.1x10^3/uL (0.0-0.2) Sodium Level 141mmol/L (136-145) Potassium Level 4.0mmol/L (3.5-5.1) Chloride Level 101mmol/L (98-107) Carbon Dioxide Level 32mmol/L (21-32) Anion Gap 8 (6-14) Blood Urea Nitrogen 12mg/dL (7-20) Creatinine 1.1mg/dL (0.6-1.0) Estimated GFR (Cockcroft-Gault) 62.4 BUN/Creatinine Ratio 11 (6-20) Glucose Level 168mg/dL (70-99) Calcium Level 9.0mg/dL (8.5-10.1) Magnesium Level 1.7mg/dL (1.8-2.4) Total Bilirubin 0.2mg/dL (0.2-1.0) Aspartate Amino Transf (AST/SGOT) 25U/L (15-37) Alanine Aminotransferase (ALT/SGPT) 28U/L (14-59) Alkaline Phosphatase 103U/L (46-116) Creatine Kinase 164U/L (26-192) Creatine Kinase MB (Mass) 1.0ng/mL (0.0-3.6) Creatine Kinase MB Relative Index 0.6% (0-4) Troponin I Quantitative < 0.017ng/mL (0.000-0.055) < 0.017ng/mL (0.000-0.055) Total Protein 7.7g/dL (6.4-8.2) Albumin 3.3g/dL (3.4-5.0) Albumin/Globulin Ratio 0.8 (1.0-1.7) Glucose (Fingerstick) 205mg/dL (70-99) 194mg/dL (70-99) Test 12/31/16 21:43 01/01/17 08:40 Glucose (Fingerstick) 202mg/dL (70-99) Troponin I Quantitative < 0.017ng/mL (0.000-0.055) Physical Exam HEENT: Neck Supple W Full Motion Chest: Symmetric LUNGS: Clear to Auscultation, Other (diminished bases ) Heart: S1S2, RRR Abdomen: Soft N/T Extremities: 2+ Dorsalis Pedis Neurology: alert, oriented, follow commands Assessment Assessment 1. Shest pain 2. Presumed ischemic CMP 3. Chronic systolic HF 4. HTN 5. AFIB Recommendations Troponin series normal- AMI ruled out. Device interrogated- no discharge No acute events overnight on telemetry okay to discharge back to nursing facility from CV standpoint. MATY ROJAS APRN Jan 01, 2017 11:07
--- NOTE | 2017-01-01 13:48 | PDOC3 ---
Discharge Summary [facility] Date of Admission: Dec 31, 2016 Discharge Date: Jan 01, 2017 Admitting Diagnosis 1. Syncope 2/2 vasovagal possibly 2. TACHYarrhythmias with indwelling pacer, normal PPM interrogation 2.SNU resident 3. CHF, systolic, stable, mod MR 4. htn 5. HLD 6. DM2 7.Hx of schizophrenia 8. Depression 9. anxiety 10. GERD Problems: Final Diagnosis Problems Medical Problems: (1) Chest pain Status: Acute (2) Hypomagnesemia Status: Acute CONSULTS card Brief Hospital Course Ms. Mulligan is a 56 old F, from [facility], ICD/ppm, Comes for syncope while eating a meatloaf, felt palpitation, some chest pain. PPM checked no records of tachycardia or fire. dc back to SNF wo intervention. dc time 35min HEENT: Atraumatic, PERRLA Lungs: Clear to auscultation Heart: S1S2, RRR, no thrills, no rubs Cardiovascular: S1 Breasts: Normal Abdomen: Normal bowel sounds, Soft, No tenderness, No hepatosplenomegaly, No masses Rectal Exam: not examined Extremities: No clubbing, No cyanosis, No edema, Normal pulses, No tenderness/ swelling Skin: No rashes, No breakdown, No significant lesion Neuro: Normal gait, Normal speech, Strength at 5/5 X4 ext, Normal tone, Sensation intact, Cranial nerves 3-12 NL, Reflexes 2+ Psych/Mental Status: Mental status NL, Mood NL Patient History: Patient reports no known family medical history. Problems: Disposition snf CONDITION AT DISCHARGE: Improved Diet cardiac Scheduled Albuterol Sulfate (Albuterol Sulfate Neb Soln) 1 VIAL NEB PRN Q4HRS (Reported) Alprazolam (Alprazolam Er) 0.25 MG PO TID (Reported) Apixaban (Eliquis) 5 MG PO BID Ascorbic Acid (Ascorbic Acid) 500 MG PO BID (Reported) Aspirin (Aspirin) 1 TAB PO DAILY (Reported) Cetirizine Hcl (Zyrtec) 1 TAB PO DAILY (Reported) Clonazepam (Clonazepam) 1 TAB PO BID (Reported) Digoxin (Lanoxin) 125 MCG PO DAILY Famotidine (Pepcid) 1 TAB PO BID (Reported) Fluticasone/Salmeterol (Advair 500-50 Diskus) 1 PUFF IH BID (Reported) Furosemide (Lasix) 1 TAB PO DAILY (Reported) Gabapentin (Gabapentin) 200 MG PO TID (Reported) Glimepiride (Amaryl) 2 MG PO DAILY (Reported) Glucagon,Human Recombinant (Glucagon Emergency Kit) 1 MG IM PRN (Reported) Insulin Detemir (Levemir) 20 UNIT SQ BID (Reported) Ipratropium/Albuterol Sulfate (Duoneb 0.5-3(2.5) Mg/3 Ml) 3 ML IH QID (Reported ) Levothyroxine Sodium (Levothyroxine Sodium) 1 TAB PO DAILY (Reported) Linagliptin (Tradjenta) 1 TAB PO DAILY (Reported) Metformin Hcl (Metformin Hcl) 0.5 TAB PO BID (Reported) Metoprolol Succinate (Metoprolol Succinate ( Xl )) 100 MG PO DAILY Montelukast Sodium (Montelukast Sodium Tablet) 1 TAB PO DAILY (Reported) Omeprazole (Omeprazole) 1 TAB PO DAILY (Reported) Risperidone (Risperdal) 1 TAB PO QHS (Reported) Ropinirole Hcl (Requip) 1 TAB PO QHS (Reported) Simvastatin (Simvastatin) 1 TAB PO QHS (Reported) Scheduled PRN Acetaminophen (Mapap) 650 MG PO PRN Q6HRS PRN PRN MILD PAIN / TEMP Dextromethorphan Hbr (Cough Relief) 15 MG PO Q6HRS PRN PRN COUGH (Reported) Loperamide Hcl (Anti-Diarrhea) 2 MG PO DAILY PRN PRN DIARRHEA (Reported) Naphazoline Hcl (Naphazoline Hcl) 15 ML OP Q4HRS PRN PRN DRY EYE (Reported) Simethicone (Gas-X) 160 MG PO Q2HR PRN PRN GAS / BLOATING (Reported) Miscellaneous Medications Lactase (Lactase Enzyme) 4,500 UNIT PO (Reported) Follow Up pcp in 2 weeks AIDEN FANG MD Jan 01, 2017 13:48
== END 2017-01-01 13:10 | DRG 303 ==
LOC: ER 13:04 → ED HOLD 15:00 → 2 NORTH 17:47
PROVIDERS: ADMIT Internal Medicine; ATTEND Internal Medicine
DX: I25.5 Ischemic cardiomyopathy (principal); I50.22 Chronic systolic (congestive) heart failure; E03.9 Hypothyroidism, unspecified; E11.9 Type 2 diabetes mellitus without complications; E78.5 Hyperlipidemia, unspecified; F20.9 Schizophrenia, unspecified; F17.200 Nicotine dependence, unspecified, uncomplicated; F41.9 Anxiety disorder, unspecified; G25.81 Restless legs syndrome; I11.0 Hypertensive heart disease with heart failure; I34.0 Nonrheumatic mitral (valve) insufficiency; I48.91 Unspecified atrial fibrillation; J45.909 Unspecified asthma, uncomplicated; K21.9 Gastro-esophageal reflux disease without esophagitis; Z95.810 Presence of automatic (implantable) cardiac defibrillator; Z79.899 Other long term (current) drug therapy; Z88.8 Allergy status to other drugs, medicaments and biological substances
CPT/HCPCS: 36415; 71010; 80053; 82553; 82947; 83735; 84484; 85027; 87641; 93005; 94250; 94640; 96374; J1815; J3475; J7620; 99285-25

== ENCOUNTER 2018-03-20 21:52 | Inpatient (IN) | payer MEDICAID ==
[2018-03-20] MEDS: IPRATRPIUM/ALBUTEROL 0.5/2.5MG 3 ML NEBU. NEB ×2 (20:40→21:02)
[2018-03-20 20:44] LABS: ADD MAN DIFF? NO
[2018-03-20 20:47] LABS: BILIRUBIN,URINE NEGATIVE (NEG); CLARITY,URINE CLEAR; COLOR,URINE YELLOW; GLUCOSE,URINE NEGATIVE (NEG); NITRITE,URINE NEGATIVE (NEG); PROTEIN,URINE 30 mg/dL (NEG-TRACE)
[2018-03-20 20:49] LABS: BASO % 0 % (0-3); EOS # 0.2 x10^3/uL (0.0-0.7); EOS % 2 % (0-3); HEMATOCRIT 34.6 % (36.0-47.0); HEMOGLOBIN 11.5 g/dL (12.0-15.5); LYMPH # 1.7 x10^3/uL (1.0-4.8); LYMPH % 25 % (24-48); MEAN CORPUSCULAR HEMOGLOBIN 31 pg (25-35); MEAN CORPUSCULAR HGB CONC 33 g/dL (31-37); MEAN CORPUSCULAR VOLUME 94 fL (79-100); MONO % 15 % (0-9); NEUT # 3.8 x10^3uL (1.8-7.7); NEUT % 57 % (31-73); PLATELET COUNT 166 x10^3/uL (140-400); RED CELL DISTRIBUTION WIDTH 16.3 % (11.5-14.5); WHITE BLOOD COUNT 6.6 x10^3/uL (4.0-11.0)
[2018-03-20 20:57] LABS: BASE EXCESS ABG 5 mmol/L (-3-3); HCO3 ABG 31 mmol/L (21-28); PCO2 ABG 57 mmHg (35-46); PH ABG 7.36 (7.35-7.45); PO2 ABG 87 mmHg (75-108); SAT O2 ABG 96 % (92-99)
[2018-03-20 20:59] LABS: BACTERIA,URINE 0 /HPF (0-FEW); RBC,URINE 0 /HPF (0-2); WBC,URINE OCC /HPF (0-4)
[2018-03-20 21:00] LABS: HYALINE CASTS, URINE FEW /HPF
[2018-03-20] MEDS: DEXTROSE 50% 25 GM / 50ML DISP.SYRIN. IV (21:02)
[2018-03-20 21:03] LABS: ANION GAP 8 (6-14); BLOOD UREA NITROGEN 13 mg/dL (7-20); BUN/CREATININE RATIO 9 (6-20); CALCIUM 8.4 mg/dL (8.5-10.1); CARBON DIOXIDE 34 mmol/L (21-32); CHLORIDE 100 mmol/L (98-107); CREATININE 1.4 mg/dL (0.6-1.0); GFR 47.1; GLUCOSE 75 mg/dL (70-99); SODIUM 142 mmol/L (136-145)
[2018-03-20] MEDS: ACETAMINOPHEN 325 MG TABLET. PO (21:04)
[2018-03-20] MEDS: IV NORMAL SALINE 500ML BAG 500 ML IV (21:05)
[2018-03-20 21:11] LABS: LACTIC ACID 1.3 mmol/L (0.4-2.0); TROPONINI 0.025 ng/mL (0.000-0.055)
[2018-03-20 21:13] LABS: ALBUMIN 3.3 g/dL (3.4-5.0); ALBUMIN/GLOBULIN RATIO 0.6 (1.0-1.7); ALK PHOS 89 U/L (46-116); ALT (SGPT) 24 U/L (14-59); AST (SGOT) 28 U/L (15-37); DIG 0.8 ng/mL (0.9-2.0); TOTAL BILIRUBIN 0.3 mg/dL (0.2-1.0); TOTAL PROTEIN 8.4 g/dL (6.4-8.2)
[2018-03-20 21:18] LABS: NT-PRO BNP 768 pg/mL (0-124)
[2018-03-20 21:30] LABS: PROCALCITONIN < 0.10 ng/mL (0.00-0.10)
[2018-03-20 21:44] LABS: POC GLUCOSE 68 mg/dL (70-99)
[2018-03-20 21:44] LABS: POC GLUCOSE 151 mg/dL (70-99)
[2018-03-20 22:34] LABS: POC GLUCOSE 147 mg/dL (70-99)
[2018-03-20] MEDS: PIPERACILLIN/TAZOBACTAM 3.375 GM in IV NORMAL SALINE 50ML 50 ML IV (22:41)
[2018-03-20] MEDS: VANCOMYCIN 2 GM in IV 1/2 NORMAL SALINE 500 ML IV (23:35)
[2018-03-21] MEDS: IV DEXTROSE 5 %-0.45 % NACL 1,000 ML IV (01:00)
[2018-03-21] MEDS: VANCOMYCIN PER PHARMACY MC (03:24)
[2018-03-21] MEDS: ACETAMINOPHEN 325 MG TABLET. PO ×3 (03:33→23:14)
[2018-03-21] MEDS: PIPERACILLIN/TAZOBACTAM 3.375 GM in IV NORMAL SALINE 50ML 50 ML IV ×4 (06:16→23:12)
[2018-03-21 08:40] LABS: POC GLUCOSE 151 mg/dL (70-99)
[2018-03-21] MEDS: LACTOBACILLUS RHAMNOSUS GG 1 CAPSULE. PO ×2 (08:45→21:35)
[2018-03-21] MEDS: DOXYCYCLINE HYCLATE 100 MG TABLET PO ×2 (14:01→21:35)
[2018-03-21 14:20] LABS: MRSA BY PCR Negative (Negative)
[2018-03-21 18:27] LABS: POC GLUCOSE 90 mg/dL (70-99)
[2018-03-21] MEDS: ACETAMINOPHEN 650 MG SUPP.RECT. PR (18:28)
[2018-03-21] MEDS: IV NORMAL SALINE 1000ML BAG 1,000 ML IV ×2 (21:05→21:35)
[2018-03-21 21:56] LABS: LACTIC ACID 1.2 mmol/L (0.4-2.0)
[2018-03-21] MEDS: FUROSEMIDE 40 MG/4 ML VIAL. IVP (22:26)
[2018-03-22] MEDS: VANCOMYCIN 1.5 GM in IV 1/2 NORMAL SALINE 500 ML IV (00:12)
[2018-03-22] MEDS: IV NORMAL SALINE 1000ML BAG 1,000 ML IV ×2 (01:13→05:59)
[2018-03-22 05:21] LABS: BASO % 1 % (0-3); EOS # 0.1 x10^3/uL (0.0-0.7); EOS % 1 % (0-3); HEMOGLOBIN 10.4 g/dL (12.0-15.5); LYMPH # 2.1 x10^3/uL (1.0-4.8); LYMPH % 37 % (24-48); MEAN CORPUSCULAR HEMOGLOBIN 31 pg (25-35); MEAN CORPUSCULAR HGB CONC 32 g/dL (31-37); MEAN CORPUSCULAR VOLUME 95 fL (79-100); MONO % 19 % (0-9); NEUT # 2.4 x10^3uL (1.8-7.7); NEUT % 43 % (31-73); PLATELET COUNT 120 x10^3/uL (140-400); RED BLOOD COUNT 3.38 x10^6/uL (3.50-5.40); RED CELL DISTRIBUTION WIDTH 16.6 % (11.5-14.5); WHITE BLOOD COUNT 5.6 x10^3/uL (4.0-11.0)
[2018-03-22] MEDS: PIPERACILLIN/TAZOBACTAM 3.375 GM in IV NORMAL SALINE 50ML 50 ML IV ×4 (05:21→22:50)
[2018-03-22 05:44] LABS: ADD MAN DIFF? YES
[2018-03-22 05:59] LABS: ANION GAP 8 (6-14); BLOOD UREA NITROGEN 11 mg/dL (7-20); CALCIUM 7.2 mg/dL (8.5-10.1); CARBON DIOXIDE 30 mmol/L (21-32); CHLORIDE 103 mmol/L (98-107); CREATININE 1.2 mg/dL (0.6-1.0); GFR 56.2; GLUCOSE 65 mg/dL (70-99); POTASSIUM 3.8 mmol/L (3.5-5.1); SODIUM 141 mmol/L (136-145)
[2018-03-22 07:04] LABS: % ATYL 2 % (0-0); % BANDS 6 % (0-9); % BASOS 1 % (0-3); % LYMPHS 42 % (24-48); % MONOS 10 % (0-10); % SEGS 39 % (35-66); PLT ESTIMATE DECREASED (ADEQUATE)
[2018-03-22] MEDS: IPRATRPIUM/ALBUTEROL 0.5/2.5MG 3 ML NEBU. NEB ×4 (08:05→19:53)
[2018-03-22] MEDS ORDERED: DEXTROSE 50% 25 GM / 50ML DISP.SYRIN. IV ×2 (08:44→13:45)
[2018-03-22 08:55] LABS: POC GLUCOSE 196 mg/dL (70-99)
[2018-03-22 08:55] LABS: POC GLUCOSE 60 mg/dL (70-99)
[2018-03-22] MEDS: LACTOBACILLUS RHAMNOSUS GG 1 CAPSULE. PO ×2 (09:42→20:41)
[2018-03-22] MEDS: ACETAMINOPHEN 325 MG TABLET. PO (09:42)
[2018-03-22] MEDS: DOXYCYCLINE HYCLATE 100 MG TABLET PO ×2 (09:42→20:41)
[2018-03-22 09:51] LABS: POC GLUCOSE 188 mg/dL (70-99)
[2018-03-22] MEDS ORDERED: IPRATRPIUM/ALBUTEROL 0.5/2.5MG 3 ML NEBU. NEB ×2 (12:00)
[2018-03-22 12:02] LABS: MYCOPLASMA PATIENT NEGATIVE (NEGATIVE); NEGATIVE OBC MYCO NEG; POSITIVE OBC MYCO POS
[2018-03-22 12:35] LABS: POC GLUCOSE 117 mg/dL (70-99)
[2018-03-22] MEDS: CALCIUM CARBONATE 500 MG TAB.CHEW PO (13:28)
[2018-03-22] MEDS: VANCOMYCIN PER PHARMACY MC ×2 (13:32→13:36)
[2018-03-22] MEDS ORDERED: risperiDONE 0.25 MG TABLET. PO (13:45)
[2018-03-22] MEDS: GABAPENTIN 100 MG CAPSULE. PO ×2 (14:38→20:41)
[2018-03-22] MEDS: ASPIRIN CHEWABLE 81 MG TABLET. PO (14:38)
[2018-03-22] MEDS: APIXABAN 5 MG TABLET. PO ×2 (14:38→20:41)
[2018-03-22] MEDS: clonazePAM 0.5 MG TABLET PO ×2 (14:38→20:41)
[2018-03-22] MEDS: FAMOTIDINE 20 MG TABLET. PO ×2 (14:38→20:41)
[2018-03-22] MEDS: ASCORBIC ACID 500 MG TABLET PO ×2 (14:38→20:41)
[2018-03-22] MEDS: FUROSEMIDE 20 MG TABLET PO (14:38)
[2018-03-22] MEDS: CETIRIZINE HCL 10 MG TABLET. PO (14:38)
[2018-03-22] MEDS: risperiDONE 1 MG TABLET. PO ×2 (14:39→20:41)
[2018-03-22] MEDS: DIGOXIN 125 MCG TABLET. PO (14:39)
[2018-03-22] MEDS: MONTELUKAST SODIUM 10 MG TABLET. PO (14:40)
[2018-03-22] MEDS: METOPROLOL SUCC 24HR ER 100 MG TAB.ER.24H. PO (14:40)
[2018-03-22] MEDS: SIMETHICONE 80 MG TAB.CHEW PO ×2 (15:12→20:09)
[2018-03-22] MEDS: TERBINAFINE 250 MG TABLET. PO (15:12)
[2018-03-22] MEDS: NYSTATIN 100,000 UNIT/GM TOPICAL CREAM 15GM TUBE. TP ×2 (15:13→20:41)
[2018-03-22] MEDS: INSULIN LISPRO 300 UNITS/3 ML INSULN.PEN. SQ (17:00)
[2018-03-22 17:58] LABS: POC GLUCOSE 96 mg/dL (70-99)
[2018-03-22] MEDS: rOPINIRole 1 MG TABLET. PO (20:41)
[2018-03-22] MEDS: SIMVASTATIN 20 MG TABLET PO (20:41)
[2018-03-22 20:59] LABS: POC GLUCOSE 73 mg/dL (70-99)
[2018-03-23] LABS: VANC TR 7.2 mcg/mL (10.0-20.0)
[2018-03-23] MEDS: VANCOMYCIN 1.5 GM in IV 1/2 NORMAL SALINE 500 ML IV (00:19)
[2018-03-23] MEDS: PIPERACILLIN/TAZOBACTAM 3.375 GM in IV NORMAL SALINE 50ML 50 ML IV ×4 (04:35→23:00)
[2018-03-23 05:07] LABS: ADD MAN DIFF? NO
[2018-03-23 05:14] LABS: BASO % 1 % (0-3); EOS # 0.3 x10^3/uL (0.0-0.7); EOS % 5 % (0-3); HEMATOCRIT 29.3 % (36.0-47.0); HEMOGLOBIN 9.6 g/dL (12.0-15.5); LYMPH # 1.8 x10^3/uL (1.0-4.8); LYMPH % 32 % (24-48); MEAN CORPUSCULAR HEMOGLOBIN 31 pg (25-35); MEAN CORPUSCULAR HGB CONC 33 g/dL (31-37); MEAN CORPUSCULAR VOLUME 94 fL (79-100); MONO # 0.9 x10^3/uL (0.0-1.1); MONO % 15 % (0-9); NEUT # 2.7 x10^3uL (1.8-7.7); NEUT % 47 % (31-73); PLATELET COUNT 122 x10^3/uL (140-400); RED BLOOD COUNT 3.11 x10^6/uL (3.50-5.40); RED CELL DISTRIBUTION WIDTH 16.4 % (11.5-14.5); WHITE BLOOD COUNT 5.7 x10^3/uL (4.0-11.0)
[2018-03-23 05:47] LABS: ANION GAP 5 (6-14); BLOOD UREA NITROGEN 9 mg/dL (7-20); CALCIUM 7.5 mg/dL (8.5-10.1); CARBON DIOXIDE 34 mmol/L (21-32); CHLORIDE 102 mmol/L (98-107); CREATININE 1.2 mg/dL (0.6-1.0); GFR 56.2; GLUCOSE 131 mg/dL (70-99); POTASSIUM 3.8 mmol/L (3.5-5.1); SODIUM 141 mmol/L (136-145)
[2018-03-23] MEDS: LEVOTHYROXINE 112 MCG TABLET PO (06:30)
[2018-03-23] MEDS: IPRATRPIUM/ALBUTEROL 0.5/2.5MG 3 ML NEBU. NEB ×4 (07:48→20:15)
[2018-03-23] MEDS: INSULIN LISPRO 300 UNITS/3 ML INSULN.PEN. SQ ×3 (08:00→17:00)
[2018-03-23 08:51] LABS: POC GLUCOSE 95 mg/dL (70-99)
[2018-03-23] MEDS: DOXYCYCLINE HYCLATE 100 MG TABLET PO ×2 (08:59→21:09)
[2018-03-23] MEDS: FUROSEMIDE 20 MG TABLET PO (08:59)
[2018-03-23] MEDS: clonazePAM 0.5 MG TABLET PO ×2 (08:59→21:09)
[2018-03-23] MEDS: GABAPENTIN 100 MG CAPSULE. PO ×3 (08:59→21:09)
[2018-03-23] MEDS: LINEZOLID 600 MG TABLET PO ×2 (08:59→21:09)
[2018-03-23] MEDS: ASPIRIN CHEWABLE 81 MG TABLET. PO (08:59)
[2018-03-23] MEDS: METOPROLOL SUCC 24HR ER 100 MG TAB.ER.24H. PO (09:00)
[2018-03-23] MEDS: LACTOBACILLUS RHAMNOSUS GG 1 CAPSULE. PO ×2 (09:00→21:09)
[2018-03-23] MEDS: APIXABAN 5 MG TABLET. PO ×2 (09:00→21:09)
[2018-03-23] MEDS: CETIRIZINE HCL 10 MG TABLET. PO (09:00)
[2018-03-23] MEDS: ASCORBIC ACID 500 MG TABLET PO ×2 (09:00→21:09)
[2018-03-23] MEDS: risperiDONE 1 MG TABLET. PO ×2 (09:01→21:09)
[2018-03-23] MEDS: DIGOXIN 125 MCG TABLET. PO (09:01)
[2018-03-23] MEDS: GLIMEPIRIDE 2 MG TABLET. PO (09:01)
[2018-03-23] MEDS: FAMOTIDINE 20 MG TABLET. PO ×2 (09:02→21:09)
[2018-03-23] MEDS: MONTELUKAST SODIUM 10 MG TABLET. PO (09:09)
[2018-03-23] MEDS: NYSTATIN 100,000 UNIT/GM TOPICAL CREAM 15GM TUBE. TP ×2 (09:09→21:09)
[2018-03-23] MEDS: TERBINAFINE 250 MG TABLET. PO (10:06)
[2018-03-23] MEDS: CALCIUM CARBONATE 500 MG TAB.CHEW PO ×2 (10:06→21:09)
[2018-03-23 12:11] LABS: POC GLUCOSE 161 mg/dL (70-99)
[2018-03-23] MEDS: SIMETHICONE 80 MG TAB.CHEW PO (15:31)
[2018-03-23 17:43] LABS: POC GLUCOSE 170 mg/dL (70-99)
[2018-03-23 19:35] LABS: POC GLUCOSE 195 mg/dL (70-99)
[2018-03-23] MEDS: SIMVASTATIN 20 MG TABLET PO (21:09)
[2018-03-23] MEDS: rOPINIRole 1 MG TABLET. PO (21:09)
[2018-03-23 22:27] LABS: LEGIONELLA AG UR Negative (Negative)
[2018-03-24 03:59] LABS: ADD MAN DIFF? NO
[2018-03-24 04:03] LABS: BASO % 1 % (0-3); EOS # 0.4 x10^3/uL (0.0-0.7); EOS % 6 % (0-3); HEMATOCRIT 28.8 % (36.0-47.0); HEMOGLOBIN 9.6 g/dL (12.0-15.5); LYMPH # 1.9 x10^3/uL (1.0-4.8); LYMPH % 27 % (24-48); MEAN CORPUSCULAR HEMOGLOBIN 32 pg (25-35); MEAN CORPUSCULAR HGB CONC 33 g/dL (31-37); MEAN CORPUSCULAR VOLUME 94 fL (79-100); MONO # 0.8 x10^3/uL (0.0-1.1); MONO % 11 % (0-9); NEUT # 3.9 x10^3uL (1.8-7.7); NEUT % 56 % (31-73); PLATELET COUNT 125 x10^3/uL (140-400); RED BLOOD COUNT 3.06 x10^6/uL (3.50-5.40); RED CELL DISTRIBUTION WIDTH 16.1 % (11.5-14.5)
[2018-03-24 04:17] LABS: ANION GAP 5 (6-14); BLOOD UREA NITROGEN 8 mg/dL (7-20); CALCIUM 8.1 mg/dL (8.5-10.1); CARBON DIOXIDE 37 mmol/L (21-32); CHLORIDE 102 mmol/L (98-107); CREATININE 1.1 mg/dL (0.6-1.0); GFR 62.2; GLUCOSE 131 mg/dL (70-99); POTASSIUM 3.6 mmol/L (3.5-5.1); SODIUM 144 mmol/L (136-145)
[2018-03-24] MEDS: PIPERACILLIN/TAZOBACTAM 3.375 GM in IV NORMAL SALINE 50ML 50 ML IV (05:00)
[2018-03-24] MEDS ORDERED: LEVOTHYROXINE 112 MCG TABLET (06:00)
[2018-03-24] MEDS: LEVOTHYROXINE 112 MCG TABLET PO (07:00)
[2018-03-24] MEDS: IPRATRPIUM/ALBUTEROL 0.5/2.5MG 3 ML NEBU. NEB ×3 (08:00→15:05)
[2018-03-24 08:12] LABS: POC GLUCOSE 169 mg/dL (70-99)
[2018-03-24] MEDS: GABAPENTIN 100 MG CAPSULE. PO ×2 (08:51→13:50)
[2018-03-24] MEDS: DOXYCYCLINE HYCLATE 100 MG TABLET PO (08:51)
[2018-03-24] MEDS: ASCORBIC ACID 500 MG TABLET PO (08:51)
[2018-03-24] MEDS: TERBINAFINE 250 MG TABLET. PO (08:51)
[2018-03-24] MEDS: METOPROLOL SUCC 24HR ER 100 MG TAB.ER.24H. PO (08:52)
[2018-03-24] MEDS: LACTOBACILLUS RHAMNOSUS GG 1 CAPSULE. PO (08:52)
[2018-03-24] MEDS: DIGOXIN 125 MCG TABLET. PO (08:52)
[2018-03-24] MEDS: clonazePAM 0.5 MG TABLET PO (08:52)
[2018-03-24] MEDS: GLIMEPIRIDE 2 MG TABLET. PO (08:53)
[2018-03-24] MEDS: ASPIRIN CHEWABLE 81 MG TABLET. PO (08:53)
[2018-03-24] MEDS: risperiDONE 1 MG TABLET. PO (08:53)
[2018-03-24] MEDS: MONTELUKAST SODIUM 10 MG TABLET. PO (08:53)
[2018-03-24] MEDS: APIXABAN 5 MG TABLET. PO (08:53)
[2018-03-24] MEDS: FAMOTIDINE 20 MG TABLET. PO (08:53)
[2018-03-24] MEDS: CETIRIZINE HCL 10 MG TABLET. PO (08:53)
[2018-03-24] MEDS: FUROSEMIDE 20 MG TABLET PO (09:00)
[2018-03-24] MEDS: INSULIN LISPRO 300 UNITS/3 ML INSULN.PEN. SQ ×2 (09:02→12:00)
[2018-03-24] MEDS: NYSTATIN 100,000 UNIT/GM TOPICAL CREAM 15GM TUBE. TP (09:03)
[2018-03-24] MEDS: CALCIUM CARBONATE 500 MG TAB.CHEW PO (10:21)
[2018-03-24] MEDS: LINEZOLID 600 MG TABLET PO (10:22)
[2018-03-24 11:49] LABS: POC GLUCOSE 142 mg/dL (70-99)
[2018-03-24 16:20] LABS: SPECIMEN SOURCE Urine (.); STREP PNEUMO ANTIGEN Negative (Negative)
[2018-03-24] MEDS ORDERED: CEFPODOXIME PROXETIL 100 MG TABLET. PO (21:00)
== END 2018-03-24 19:00 | disposition home or self-care (01) | DRG 871 ==
LOC: 6 SOUTH 03-23 09:30 → 4 NORTH 03-21 01:04 → ER 21:52 → 4 NORTH 03-21 18:05 → 1 WEST ICU 03-21 18:45
DX: A41.9 Sepsis, unspecified organism (principal); J18.9 Pneumonia, unspecified organism; J96.21 Acute and chronic respiratory failure with hypoxia; N17.0 Acute kidney failure with tubular necrosis; I13.0 Hypertensive heart and chronic kidney disease with heart failure and stage 1 through stage 4 chronic kidney disease, or unspecified chronic kidney disease; G93.41 Metabolic encephalopathy; E11.22 Type 2 diabetes mellitus with diabetic chronic kidney disease; I50.9 Heart failure, unspecified; J44.0 Chronic obstructive pulmonary disease with (acute) lower respiratory infection; J44.1 Chronic obstructive pulmonary disease with (acute) exacerbation; N18.3 Chronic kidney disease, stage 3 (moderate); E03.9 Hypothyroidism, unspecified; E78.5 Hyperlipidemia, unspecified; F25.9 Schizoaffective disorder, unspecified; F41.9 Anxiety disorder, unspecified; G25.81 Restless legs syndrome; I48.91 Unspecified atrial fibrillation; F32.9 Major depressive disorder, single episode, unspecified; J31.0 Chronic rhinitis; Y95 Nosocomial condition; K76.0 Fatty (change of) liver, not elsewhere classified; M19.90 Unspecified osteoarthritis, unspecified site; K21.9 Gastro-esophageal reflux disease without esophagitis; Z88.8 Allergy status to other drugs, medicaments and biological substances; Z79.4 Long term (current) use of insulin; Z83.3 Family history of diabetes mellitus; Z86.718 Personal history of other venous thrombosis and embolism; Z87.891 Personal history of nicotine dependence; Z95.0 Presence of cardiac pacemaker; Z99.81 Dependence on supplemental oxygen
CPT/HCPCS: 36415; 36600; 51702; 71045; 71250; 80048; 80053; 80162; 80202; 81001; 82805; 82962; 83605; 83880; 84145; 84484; 85007; 85025; 86738; 87040; 87449; 87641; 93005; 94640; 94760; 96361; 96374; 97161-GP; 97165-GO; 97530-GP; 99285-25; J1815; J1940; J2543; J3370; J7030; J7040; J7042; J7620

== ENCOUNTER 2018-06-12 16:36 | Emergency (ER) | payer MEDICAID ==
[2018-06-12] MEDS: IPRATRPIUM/ALBUTEROL 0.5/2.5MG 3 ML NEBU. NEB (17:11)
[2018-06-12 18:17] LABS: ADD MAN DIFF? NO
[2018-06-12 18:19] LABS: BASO # 0.1 x10^3/uL (0.0-0.2); BASO % 1 % (0-3); EOS # 0.3 x10^3/uL (0.0-0.7); EOS % 4 % (0-3); HEMATOCRIT 36.6 % (36.0-47.0); HEMOGLOBIN 12.3 g/dL (12.0-15.5); LYMPH % 21 % (24-48); MEAN CORPUSCULAR HEMOGLOBIN 31 pg (25-35); MEAN CORPUSCULAR HGB CONC 34 g/dL (31-37); MEAN CORPUSCULAR VOLUME 94 fL (79-100); MONO # 0.6 x10^3/uL (0.0-1.1); MONO % 6 % (0-9); NEUT # 6.7 x10^3uL (1.8-7.7); NEUT % 69 % (31-73); PLATELET COUNT 163 x10^3/uL (140-400); RED BLOOD COUNT 3.91 x10^6/uL (3.50-5.40); RED CELL DISTRIBUTION WIDTH 15.2 % (11.5-14.5); WHITE BLOOD COUNT 9.7 x10^3/uL (4.0-11.0)
[2018-06-12 18:34] LABS: ANION GAP 3 (6-14); BLOOD UREA NITROGEN 9 mg/dL (7-20); BUN/CREATININE RATIO 8 (6-20); CARBON DIOXIDE 36 mmol/L (21-32); CHLORIDE 99 mmol/L (98-107); CREATININE 1.1 mg/dL (0.6-1.0); GFR 62.2; GLUCOSE 142 mg/dL (70-99); POTASSIUM 3.8 mmol/L (3.5-5.1); SODIUM 138 mmol/L (136-145)
[2018-06-12 18:39] LABS: ALBUMIN 3.3 g/dL (3.4-5.0); ALBUMIN/GLOBULIN RATIO 0.7 (1.0-1.7); ALK PHOS 117 U/L (46-116); ALT (SGPT) 21 U/L (14-59); AST (SGOT) 23 U/L (15-37); TOTAL BILIRUBIN 0.1 mg/dL (0.2-1.0); TOTAL PROTEIN 8.1 g/dL (6.4-8.2)
[2018-06-12 18:46] LABS: BILIRUBIN,URINE NEGATIVE (NEG); CLARITY,URINE CLEAR; COLOR,URINE YELLOW; GLUCOSE,URINE NEGATIVE (NEG); NITRITE,URINE NEGATIVE (NEG); PROTEIN,URINE NEGATIVE (NEG-TRACE)
[2018-06-12 18:53] LABS: BACTERIA,URINE 0 /HPF (0-FEW); RBC,URINE 0 /HPF (0-2); SQUAMOUS EPITHELIAL CELL,UR OCC /LPF; WBC,URINE OCC /HPF (0-4)
[2018-06-12] MEDS: ALBUTEROL SULFATE 2.5 MG/3 ML NEBU. NEB (19:14)
== END 2018-06-12 22:46 | disposition home or self-care (01) ==
LOC: ER 22:46
DX: J40 Bronchitis, not specified as acute or chronic (principal); K21.9 Gastro-esophageal reflux disease without esophagitis; E11.9 Type 2 diabetes mellitus without complications; I11.0 Hypertensive heart disease with heart failure; I50.9 Heart failure, unspecified; F20.9 Schizophrenia, unspecified; Z95.0 Presence of cardiac pacemaker; Z88.8 Allergy status to other drugs, medicaments and biological substances; Z91.011 Allergy to milk products
CPT/HCPCS: 36415; 71046; 80053; 81001; 85025; 93005; 94640; 99285-25; J7613; J7620

== ENCOUNTER 2018-08-11 03:13 | Emergency (ER) | payer MEDICAID ==
[~2018-08-11] VITALS: Ht 167.6 cm; Wt 83.9 kg
[2018-08-11 03:13] VITALS: BP 151/87
[~2018-08-11 03:13] MED LIST changes: +ACET325T9 PO; +ASPI-630 PO; -ASPI81TA2 PO; +AZIT250T PO; +CALC200T3 PO; +CEFP100T PO; +CLON0.5T11 PO; -CLON0.5T3 PO; -DIGO125T16 PO; +DIGO125T79 PO; +DOXY100T PO; +FURO20TA3 PO; +GUAI237L83 PO; +IBUP-1027 PO; -IPRA3AMP IH; +IPRA3AMP29 IH; +IPRA3AMP29 NEB; +LACT1CAP19 PO; +LEVO112T4 PO; -LEVOTHYROXINE 100 MCG TABLET PO SCH; -LINA5TAB PO; +LINA5TAB4 PO; +METF500T16 PO; -METF500T4 PO; +METO-247 PO; -METO100T11 PO; +NAPH15DR11 OP; +NYST15CR TP; +NYST15PO9 TP; -OMEP20TA PO; +OMEP20TA8 PO; +PRED50TA PO; -RISP0.5T18 PO; +RISP0.5T24 PO; +RISP0.5T3 PO; +RISP1TAB3 PO; +TERB250T11 PO; +[UNRECOGNIZED DRUG - CODE] PO
[2018-08-11] MEDS ORDERED: IBUPROFEN 400 MG TABLET. PO ONE (04:00)
--- NOTE | 2018-08-11 04:33 | PHYS DOC ---
Past Medical History Past Medical History: A-Fib, Anxiety, CHF, Constipation, Diabetes-Type II, GERD , Hypothyroid, Schizophrenia Additional Past Medical Histor: SCHIZO,RESTLESS LEG Past Surgical History: Pacemaker Additional Past Surgical Histo: Pacemaker/defib Alcohol Use: None Drug Use: None Adult General Chief Complaint Chief Complaint: OTHER COMPLAINTS HPI HPI 58-year-old female presents via EMS with report of waking up with sensation of taking sound in her left ear which is now resolved. Patient reports she thought it might be her pacemaker. Denies any chest pain or palpitations. Patient does report sore throat and nasal congestion. Patient reports she has been seen before for similar without acute process. Denies trauma. Denies fevers/chills. Review of Systems Review of Systems Constitutional: Denies fever or chills [] Eyes: Denies change in visual acuity, redness, or eye pain [] HENT: Reports nasal congestion and sore throat [] Respiratory: Denies cough or shortness of breath [] Cardiovascular: Denies chest pain or palpitations GI: Denies abdominal pain, nausea, vomiting,or diarrhea [] : Denies dysuria or hematuria [] Musculoskeletal: Denies back pain or joint pain [] Integument: Denies rash or skin lesions [] Neurologic: Denies headache, focal weakness or sensory changes [] Complete systems were reviewed and found to be within normal limits, except as documented in this note. Current Medications Current Medications Current Medications Medications (Trade) Dose Ordered Sig/Eber Start Time Stop Time Status Last Admin Dose Admin Ibuprofen (Motrin) 400 mg 1X ONCE 08/11/18 04:00 08/11/18 04:01 DC 08/11/18 04:00 400 MG Allergies Allergies Allergies Coded Allergies Type Severity Reaction Last Updated Verified lactose Allergy Intermediate 02/25/16 Yes lisinopril Allergy Intermediate 08/08/15 Yes Physical Exam Physical Exam Constitutional: Well developed, well nourished, no acute distress, non-toxic appearance. [] HENT: Normocephalic, atraumatic, bilateral external ears with partial cerumen noted in canals, visible partial TMs appear clear, oropharynx moist, mild erythema noted to pharynx, postnasal drip noted Eyes: PERRL, EOMI, conjunctiva normal, no discharge. [] Neck: Normal range of motion, no tenderness, supple, no meningeal signs Cardiovascular: Heart rate regular rhythm, Refill less than 2 seconds Lungs & Thorax: Bilateral breath sounds clear to auscultation, no wheezes or rales Abdomen: Soft, no tenderness Skin: Warm, dry, no erythema, no rash. [] ] Extremities: No tenderness, ROM intact, no edema. [] Neurologic: Alert and oriented X 3, normal motor function, normal sensory function, no focal deficits noted. [] Psychologic: Affect normal, judgement normal, mood- anxious Current Patient Data Vital Signs Vital Signs Date Time Temp Pulse Resp B/P (MAP) Pulse Ox O2 Delivery O2 Flow Rate FiO2 08/11/18 03:13 98.6 62 20 151/87 (108) 97 Nasal Cannula 2.0 98.6 EKG EKG @0400 Paced rhythm at 60bpm Radiology/Procedures Radiology/Procedures 2 view CXR (preliminary interpretation by ED physician): NO acute process Course & Med Decision Making Course & Med Decision Making Pertinent Labs and Imaging studies reviewed. (See chart for details) Patient presents from [facility] with report of taking sound in her left ear. No history of trauma. Also reports some URI type symptoms. Symptomatic treatment provided with oral steroid. EKG paced. Chest x-ray without acute process. Patient reports resolution of symptoms.Patient stable for discharge back to [facility] with outpatient follow-up with PCP/census enumerator. Discussed findings and plan with patient, who acknowledges understanding and agreement. Dragon Disclaimer Dragon Disclaimer This electronic medical record was generated, in whole or in part, using a voice recognition dictation system. Departure Departure Impression: Primary Impression: Normally functioning cardiac pacemaker present Additional Impression: URI (upper respiratory infection) Disposition: 01 HOME, SELF-CARE Condition: IMPROVED Referrals: [facility] (PCP) Patient Instructions: Pacemaker Follow-up, Upper Respiratory Infection, Adult, [id number] Additional Instructions: Please follow up with your census enumerator for further evaluation of your pacemaker. Problem Qualifiers Additional Impression: URI (upper respiratory infection) URI type: unspecified URI Qualified Codes: J06.9 - Acute upper respiratory infection, unspecified ASHLYN TIM DO Aug 11, 2018 04:33
--- NOTE | 2018-08-11 05:33 | EKG ---
[facility] [address] [place] [address] Test Date: 2018-08-11 Test Time: 04:00:38 Pat Name: MARCOS CLIFTON Department: Room: Gender: F Undercover Agent: DANIELE : 1960 Requested By: ASHLYN TIM Order Number: [id number] Reading MD: Kael Poole Measurements Intervals [place] Rate: 60 P: 90 VA: 160 QRS: -50 QRSD: 14 T: -68 QT: 410 QTc: 410 Interpretive Statements AV SEQUENTIAL PACED RHYTHM Electronically Signed On 08-15-2018 11:56:20 CDT by Kael Poole
--- NOTE | 2018-08-11 06:02 | RAD ---
PROCEDURE: CHEST PA LATERAL CLINICAL INDICATION: PT CAN HEAR PACEMAKER TICKING; NO CHEST PAIN COMPARISON: 06/12/2018 FINDINGS: Stable position of left chest wall cardiac pacer with its leads projecting over the heart. No pneumothorax identified. Cardiac and mediastinal contours unremarkable. No pulmonary consolidation or acute airspace disease. No acute osseous abnormalities identified. IMPRESSION: No pulmonary consolidation or acute airspace disease. Electronically signed by: Rayray Garvey DO (08/11/2018 5:58 AM) [facility]
== END 2018-08-11 05:42 | disposition home or self-care (01) ==
LOC: ER 03:13
DX: J06.9 Acute upper respiratory infection, unspecified (principal); Z95.0 Presence of cardiac pacemaker; K21.9 Gastro-esophageal reflux disease without esophagitis; E11.9 Type 2 diabetes mellitus without complications; I48.91 Unspecified atrial fibrillation; E03.9 Hypothyroidism, unspecified; F20.9 Schizophrenia, unspecified; F41.9 Anxiety disorder, unspecified; Z86.79 Personal history of other diseases of the circulatory system; Z88.8 Allergy status to other drugs, medicaments and biological substances; Z91.011 Allergy to milk products
CPT/HCPCS: 71046; 93005; 99284

== ENCOUNTER 2019-03-18 00:02 | Emergency (ER) | payer MEDICAID ==
[~2019-03-18] VITALS: Ht 154.9 cm; Wt 82.1 kg
[~2019-03-18 00:02] MED LIST changes: +LINA5TAB PO; -LINA5TAB4 PO; +LOPE2CAP88 PO
--- NOTE | 2019-03-18 00:12 | PHYS DOC ---
Past Medical History Past Medical History: A-Fib, Anxiety, CHF, Constipation, Diabetes-Type II, GERD, Hypothyroid, Schizophrenia Additional Past Medical Histor: SCHIZO,RESTLESS LEG Past Surgical History: Pacemaker Additional Past Surgical Histo: Pacemaker/defib Alcohol Use: None Drug Use: None Adult General Chief Complaint Chief Complaint: NAUSEA/VOMITING/DIARRHA HPI HPI Patient is a 58 year old F who presents with nausea, vomiting, and diarrhea. Patient has been sick for the last 1.5 days with nausea, vomiting, and diarrhea. She was found slumped forward on the toilet tonight with complaints of feeling woozy. Pt. denies passing out. Pt. denies any head or neck pain at this time. apparently per ems vomiting and diarrhea has been going around at the nursing facility where she came from. she reported a fever but this was not given report to nursing staff and afebrile here. did have some mild abdo cramping with the diarrhea but no abdo pain at this tiem. Review of Systems Review of Systems Constitutional: Reports fever or chills [] Eyes: Denies change in visual acuity, redness, or eye pain [] HENT: Denies nasal congestion or sore throat [] Respiratory: Denies cough or shortness of breath [] Cardiovascular: No additional information not addressed in HPI [] GI: Reports abdominal pain, nausea, Musculoskeletal: Denies back pain or joint pain [] Integument: Denies rash or skin lesions [] Neurologic: Denies headache, focal weakness or sensory changes [] Endocrine: Denies polyuria or polydipsia [] All other systems were reviewed and found to be within normal limits, except as documented in this note. Current Medications Current Medications Current Medications Medications (Trade) Dose Ordered Sig/Eber Start Time Stop Time Status Last Admin Dose Admin Ondansetron HCl (Zofran) 4 mg 1X ONCE 03/18/19 00:30 03/18/19 00:31 DC 03/18/19 00:42 4 MG Sodium Chloride 1,000 ml @ 1,000 mls/hr 1X ONCE 03/18/19 00:30 03/18/19 01:29 DC 03/18/19 00:41 1,000 MLS/HR Allergies Allergies Allergies Coded Allergies Type Severity Reaction Last Updated Verified lactose Allergy Intermediate 02/25/16 Yes lisinopril Allergy Intermediate 08/08/15 Yes Physical Exam Physical Exam Constitutional: Well developed, well nourished, no acute distress, non-toxic appearance. [] HENT: Normocephalic, atraumatic, bilateral external ears normal, oropharynx moist, no oral exudates, nose normal. [] Eyes: PERRLA, EOMI, conjunctiva normal, no discharge. [] Neck: Normal range of motion, no tenderness, supple, no stridor. [] Cardiovascular:Heart rate regular rhythm, no murmur [] Lungs & Thorax: Bilateral breath sounds clear to auscultation [] Abdomen: Bowel sounds normal, soft, no tenderness, no masses, no pulsatile masses. [] Skin: Warm, dry, no erythema, no rash. [] Back: No tenderness, no CVA tenderness. [] Extremities: No tenderness, no cyanosis, no clubbing, ROM intact, no edema. [] Neurologic: Alert and oriented X 3, normal motor function, normal sensory function, no focal deficits noted. [] Psychologic: Affect normal, judgement normal, mood normal. [] Current Patient Data Vital Signs Vital Signs Date Time Temp Pulse Resp B/P (MAP) Pulse Ox O2 Delivery O2 Flow Rate FiO2 03/18/19 03:43 96 23 109/57 (74) 100 Nasal Cannula 3.0 03/18/19 00:40 98.8 98.8 Lab Values Laboratory Tests Test 03/18/19 00:30 03/18/19 00:55 White Blood Count 10.8 x10^3/uL (4.0-11.0) Red Blood Count 3.90 x10^6/uL (3.50-5.40) Hemoglobin 11.3 g/dL (12.0-15.5) L Hematocrit 35.7 % (36.0-47.0) L Mean Corpuscular Volume 92 fL (79-100) Mean Corpuscular Hemoglobin 29 pg (25-35) Mean Corpuscular Hemoglobin Concent 32 g/dL (31-37) Red Cell Distribution Width 16.2 % (11.5-14.5) H Platelet Count 175 x10^3/uL (140-400) Neutrophils (%) (Auto) 80 % (31-73) H Lymphocytes (%) (Auto) 11 % (24-48) L Monocytes (%) (Auto) 7 % (0-9) Eosinophils (%) (Auto) 2 % (0-3) Basophils (%) (Auto) 0 % (0-3) Neutrophils # (Auto) 8.6 x10^3uL (1.8-7.7) H Lymphocytes # (Auto) 1.2 x10^3/uL (1.0-4.8) Monocytes # (Auto) 0.7 x10^3/uL (0.0-1.1) Eosinophils # (Auto) 0.2 x10^3/uL (0.0-0.7) Basophils # (Auto) 0.0 x10^3/uL (0.0-0.2) Sodium Level 141 mmol/L (136-145) Potassium Level 3.9 mmol/L (3.5-5.1) Chloride Level 100 mmol/L (98-107) Carbon Dioxide Level 35 mmol/L (21-32) H Anion Gap 6 (6-14) Blood Urea Nitrogen 9 mg/dL (7-20) Creatinine 1.1 mg/dL (0.6-1.0) H Estimated GFR (Cockcroft-Gault) 61.9 BUN/Creatinine Ratio 8 (6-20) Glucose Level 145 mg/dL (70-99) H Calcium Level 8.6 mg/dL (8.5-10.1) Total Bilirubin 0.2 mg/dL (0.2-1.0) Aspartate Amino Transferase (AST) 18 U/L (15-37) Alanine Aminotransferase (ALT) 19 U/L (14-59) Alkaline Phosphatase 136 U/L (46-116) H Total Protein 7.4 g/dL (6.4-8.2) Albumin 3.3 g/dL (3.4-5.0) L Albumin/Globulin Ratio 0.8 (1.0-1.7) L Urine Collection Type U cath Urine Color Mandy Urine Clarity Clear Urine pH 6.0 Urine Specific [place] 1.025 Urine Protein >=300 mg/dL (NEG-TRACE) Urine Glucose (UA) Negative mg/dL (NEG) Urine Ketones (Stick) Trace mg/dL (NEG) Urine Blood Negative (NEG) Urine Nitrite Negative (NEG) Urine Bilirubin Small (NEG) Urine Urobilinogen Dipstick 1.0 mg/dL (0.2 mg/dL) Urine Leukocyte Esterase Small (NEG) Urine RBC Occ /HPF (0-2) Urine WBC 1-4 /HPF (0-4) Urine Squamous Epithelial Cells Few /LPF Urine Amorphous Sediment Present /HPF Urine Bacteria Few /HPF (0-FEW) Urine Hyaline Casts Few /HPF Urine Granular Casts Occasional /HPF Urine Mucus Slight /LPF Laboratory Tests 03/18/19 00:30 Laboratory Tests 03/18/19 00:30 EKG EKG P waves present, V paced rate of 82, ST flattening V5-6, no STEMI[] Radiology/Procedures Radiology/Procedures [] Course & Med Decision Making Course & Med Decision Making Pertinent Labs and Imaging studies reviewed. (See chart for details) []labs look stable pt felt better after iv fluids, no events on monitor. dm, gerd anxiety, asthma recent pacemaker placement last month from nursing facility p/w n/v/d and near syncope, no actual syncope. liely viral gastroenteritis, benign abdo exam, labs essentially unremarkable. no stool while in the er, so i ordred stool culture but it was not collectable. d/c back to snf in stable condition. Dragon Disclaimer Dragon Disclaimer This electronic medical record was generated, in whole or in part, using a voice recognition dictation system. Departure Departure Impression: Primary Impression: Nausea vomiting and diarrhea Disposition: 03 TRANSFER SNF Condition: STABLE Referrals: [facility] (PCP) Scripts Ondansetron Hcl (ZOFRAN) 4 Mg Tablet 4 MG PO PRN TID PRN for NAUSEA/VOMITING, #15 nausea/vomiting Prov: CLEMENT WHALEY MD 03/18/19 CLEMENT WHALEY MD March 18, 2019 00:12
[2019-03-18] MEDS ORDERED: ONDANSETRON PF 4 MG/2 ML VIAL. IV ONE (00:30)
[2019-03-18] MEDS ORDERED: IV NORMAL SALINE 1000ML BAG 1,000 ML IV ONE (00:30)
[2019-03-18 02:03] LABS: BILIRUBIN,URINE SMALL (NEG); CLARITY,URINE CLEAR; COLOR,URINE AMBER; NITRITE,URINE NEGATIVE (NEG); PROTEIN,URINE >=300 mg/dL (NEG-TRACE)
[2019-03-18 02:15] LABS: BASO % 0 % (0-3); EOS # 0.2 x10^3/uL (0.0-0.7); EOS % 2 % (0-3); HEMATOCRIT 35.7 % (36.0-47.0); HEMOGLOBIN 11.3 g/dL (12.0-15.5); LYMPH # 1.2 x10^3/uL (1.0-4.8); LYMPH % 11 % (24-48); MEAN CORPUSCULAR HEMOGLOBIN 29 pg (25-35); MEAN CORPUSCULAR HGB CONC 32 g/dL (31-37); MEAN CORPUSCULAR VOLUME 92 fL (79-100); MONO # 0.7 x10^3/uL (0.0-1.1); MONO % 7 % (0-9); NEUT # 8.6 x10^3uL (1.8-7.7); NEUT % 80 % (31-73); PLATELET COUNT 175 x10^3/uL (140-400); RED CELL DISTRIBUTION WIDTH 16.2 % (11.5-14.5); WHITE BLOOD COUNT 10.8 x10^3/uL (4.0-11.0)
[2019-03-18 02:17] LABS: CALCIUM 8.6 mg/dL (8.5-10.1); CREATININE 1.1 mg/dL (0.6-1.0); GFR 61.9; POTASSIUM 3.9 mmol/L (3.5-5.1)
[2019-03-18 02:22] LABS: ALBUMIN 3.3 g/dL (3.4-5.0); ALBUMIN/GLOBULIN RATIO 0.8 (1.0-1.7); TOTAL BILIRUBIN 0.2 mg/dL (0.2-1.0); TOTAL PROTEIN 7.4 g/dL (6.4-8.2)
[2019-03-18 02:33] LABS: AMORPHOUS SEDIMENT,UR PRESENT /HPF; BACTERIA,URINE FEW /HPF (0-FEW); HYALINE CASTS, URINE FEW /HPF; RBC,URINE OCC /HPF (0-2); SQUAMOUS EPITHELIAL CELL,UR FEW /LPF
[2019-03-18 02:34] LABS: GRANULAR CASTS,URINE OCCASIONAL /HPF
[2019-03-18] MEDS ORDERED: ONDA4TAB7 PO (02:51)
[2019-03-18 03:43] VITALS: BP 109/57
--- NOTE | 2019-03-18 08:19 | EKG ---
[facility] [address] [place] [address] Test Date: 2019-03-18 Test Time: 00:20:19 Pat Name: MARCOS CLIFTON Department: Room: Gender: F Director Of Sports Performance: : 1960 Requested By: CLEMENT WHALEY Order Number: [id number] Reading MD: Arcadio Riley MD Measurements Intervals [place] Rate: 82 P: 59 ND: 180 QRS: -84 QRSD: 144 T: 90 QT: 420 QTc: 494 Interpretive Statements PROBABLE BI-V PACED RHYTHM SINUS RHYTHM Electronically Signed On 03-21-2019 14:08:13 CDT by Arcadio Riley MD
== END 2019-03-18 03:50 ==
LOC: ER 00:02
DX: R11.2 Nausea with vomiting, unspecified (principal); R19.7 Diarrhea, unspecified; I48.91 Unspecified atrial fibrillation; E03.9 Hypothyroidism, unspecified; E11.9 Type 2 diabetes mellitus without complications; F20.9 Schizophrenia, unspecified; K21.9 Gastro-esophageal reflux disease without esophagitis; Z86.79 Personal history of other diseases of the circulatory system; Z95.810 Presence of automatic (implantable) cardiac defibrillator; Z91.011 Allergy to milk products; Z88.8 Allergy status to other drugs, medicaments and biological substances
CPT/HCPCS: 36415; 80053; 81001; 85025; 93005; 96361; 96374; 99285; J2405; J7030

== ENCOUNTER 2020-01-24 01:03 | Emergency (ER) | payer MEDICAID ==
[~2020-01-24] VITALS: Ht 154.9 cm; Wt 87.3 kg
[~2020-01-24 01:03] MED LIST changes: +ACET325T21 PO; +ATOR10TA60 PO; +B CO PO; +CALC500T31 PO; +CARV25TA PO; -CETI10TA22 PO; +CETI10TA24 PO; +CHLO15MO2 PO; +CLON-77 PO; -CLON0.5T11 PO; +GUAI600T47 PO; +GUAIFENESIN PO; +INSU100V6 SQ; +KETO5DRO89 EACHEYE; +LOPE-101 PO; -LOPE2CAP88 PO; +LORA10TA3 PO; +MAGN400T5 PO; +MONT10TA49 PO; -MONT10TA9 PO; +ONDA4TAB7 PO; +PANT40TA77 PO; +POLY15DR18 EACHEYE; +POLY15DR20 EACHEYE; +ROPI1TAB4 PO; +SIMV20TA18 PO; -SIMV20TA3 PO; +TRAM50TA PO
--- NOTE | 2020-01-24 01:29 | PHYS DOC ---
Past Medical History Past Medical History: A-Fib, Anxiety, Asthma, CHF, Constipation, Diabetes-Type II, GERD, Hypothyroid, Schizophrenia Additional Past Medical Histor: SCHIZOAFFECTIVE, RESTLESS LEG Past Surgical History: Pacemaker Additional Past Surgical Histo: Pacemaker/defib Smoking Status: Former Smoker Alcohol Use: None Drug Use: None Adult General Chief Complaint Chief Complaint: MECHANICAL FALL [facility] HPI Patient is a 59 year old presents for evaluation after fall in the bathroom. Patient states she lost her balance and hit hear head on the wall. Patient denies any LOC. Denies nausea or vomiting or headache or seizure. Patient with GCS 15. Patient is not on blood thinning medications. Patient has no complaints. Review of Systems Review of Systems Constitutional: Denies fever or chills [] Eyes: Denies change in visual acuity, redness, or eye pain [] HENT: Denies nasal congestion or sore throat [] Respiratory: Denies cough or shortness of breath [] Cardiovascular: No additional information not addressed in HPI [] GI: Denies abdominal pain, nausea, vomiting, bloody stools or diarrhea [] : Denies dysuria or hematuria [] Musculoskeletal: Denies back pain or joint pain [] Integument: Denies rash or skin lesions [] Neurologic: Denies headache, focal weakness or sensory changes [] Endocrine: Denies polyuria or polydipsia [] All other systems were reviewed and found to be within normal limits, except as documented in this note. Allergies Allergies Allergies Coded Allergies Type Severity Reaction Last Updated Verified lactose Allergy Intermediate 02/25/16 Yes lisinopril Allergy Intermediate 08/08/15 Yes Physical Exam Physical Exam Constitutional: Well developed, well nourished, no acute distress, non-toxic appearance. [] HENT: Normocephalic, atraumatic, bilateral external ears normal, oropharynx moist, no oral exudates, nose normal. [] Eyes: PERRLA, EOMI, conjunctiva normal, no discharge. [] Neck: Normal range of motion, no tenderness, supple, no stridor. [] Cardiovascular:Heart rate regular rhythm, no murmur [] Lungs & Thorax: Bilateral breath sounds clear to auscultation [] Abdomen: Bowel sounds normal, soft, no tenderness, no masses, no pulsatile masses. [] Skin: Warm, dry, no erythema, no rash. [] Back: No tenderness, no CVA tenderness. [] Extremities: No tenderness, no cyanosis, no clubbing, ROM intact, no edema. [] Neurologic: Alert and oriented X 3, normal motor function, normal sensory function, no focal deficits noted. [[id number]] Psychologic: Affect normal, judgement normal, mood normal. [] EKG EKG [] Radiology/Procedures Radiology/Procedures [] Course & Med Decision Making Course & Med Decision Making Pertinent Labs and Imaging studies reviewed. (See chart for details) []The [facility] Head CT Rule suggests a head CT is not necessary for this patient (sensitivity 83-100% for all intracranial traumatic findings, sensitivity 100% for findings requiring neurosurgical intervention). Dragon Disclaimer Dragon Disclaimer This electronic medical record was generated, in whole or in part, using a voice recognition dictation system. Departure Departure Impression: Primary Impression: Fall Disposition: 01 HOME, SELF-CARE Condition: STABLE Referrals: [facility] (PCP) Problem Qualifiers Primary Impression: Fall Encounter type: initial encounter Qualified Codes: W19.XXXA - Unspecified fall, initial encounter DONN MORALES DO Jan 24, 2020 01:29
[2020-01-24 03:39] VITALS: BP 122/60
== END 2020-01-24 03:45 | disposition home or self-care (01) ==
LOC: ER 01:03
DX: S09.90XA Unspecified injury of head, initial encounter (principal); J45.909 Unspecified asthma, uncomplicated; I48.91 Unspecified atrial fibrillation; E11.9 Type 2 diabetes mellitus without complications; K21.9 Gastro-esophageal reflux disease without esophagitis; E03.9 Hypothyroidism, unspecified; F20.9 Schizophrenia, unspecified; G25.81 Restless legs syndrome; Z87.891 Personal history of nicotine dependence; Z95.0 Presence of cardiac pacemaker; Z91.011 Allergy to milk products; Z88.8 Allergy status to other drugs, medicaments and biological substances; W18.39XA Other fall on same level, initial encounter; Y93.89 Activity, other specified; Y92.89 Other specified places as the place of occurrence of the external cause; Y99.8 Other external cause status
CPT/HCPCS: 99285-25

== ENCOUNTER 2020-10-28 17:28 | Emergency (ER) | payer MEDICAID ==
[~2020-10-28] VITALS: Ht 160 cm; Wt 72.2 kg
[~2020-10-28 17:28] MED LIST changes: +ACET-2061 PO; -ACET325T16 PO; -CETI10TA24 PO; +CETI10TA74 PO; -LEVO112T4 PO; +LEVO112T49 PO; -RISP0.5T3 PO; +RISP0.5T62 PO; -RISP1TAB3 PO; +RISP1TAB88 PO; -TERB250T11 PO; +TERB250T84 PO
--- NOTE | 2020-10-28 18:05 | PHYS DOC ---
Past Medical History Past Medical History: A-Fib, Anxiety, Asthma, CHF, Constipation, Diabetes-Type II, GERD, Hypothyroid, Schizophrenia Additional Past Medical Histor: SCHIZOAFFECTIVE, RESTLESS LEG (TORI DE LA TORRE DO) Past Surgical History: Pacemaker Additional Past Surgical Histo: Pacemaker/defib (TORI DE LA TORRE DO) Smoking Status: Former Smoker Alcohol Use: None Drug Use: None (TORI DE LA TORRE DO) General Adult EDM: Chief Complaint: MECHANICAL FALL HPI: HPI: 60-year-old female past medical history of schizophrenia (why she requires SNF), A. fib on no AC, CAD, CHF on 3L NC with pacemaker, and dm, presents to the ED brought in by EMS from custodial facility status post unwitnessed fall, found down next to her walker. Last seen normal at 5 PM. Patient reports she does not recall falling and woke up on the floor, was coming from her bathroom. EMS reported an oxygenation of 70%, negative covid test today. Multiple episodes of brown watery diarrhea. Patient had a negative Covid antigen test today per ems. On arrival patient is GCS 15, alert and oriented. Denies any active pain in the ED. patient is a full code. Med list reviewed and patient has no underlying lung disease. (TORI DE LA TORRE DO) Review of Systems: Review of Systems: Constitutional: Denies fever or chills. [] Eyes: Denies change in visual acuity. [] HENT: Denies nasal congestion or sore throat. [] Respiratory: Denies cough or shortness of breath. [] Cardiovascular: Denies chest pain or edema. [] GI: Denies abdominal pain, nausea, vomiting, bloody stools or diarrhea. [] : Denies dysuria. [] Musculoskeletal: Denies back pain or joint pain. [] Integument: Denies rash. [] Neurologic: Denies headache, midline neck stiffness, focal weakness or sensory changes. [] Endocrine: Denies polyuria or polydipsia. [] Lymphatic: Denies swollen glands. [] Psychiatric: Denies depression or anxiety. [] (TORI DE LA TORRE DO) Heart Score: Risk Factors: Risk Factors: DM, Current or recent (<one month) smoker, HTN, HLP, family history of CAD, obesity. Risk Scores: Score 0 - 3: 2.5% MACE over next 6 weeks - Discharge Home Score 4 - 6: 20.3% MACE over next 6 weeks - Admit for Clinical Observation Score 7 - 10: 72.7% MACE over next 6 weeks - Early Invasive Strategies (TORI DE LA TORRE DO) Allergies: Allergies: Allergies Coded Allergies Type Severity Reaction Last Updated Verified lactose Allergy Intermediate 02/25/16 Yes lisinopril Allergy Intermediate 08/08/15 Yes (TORI DE LA TORRE DO) Physical Exam: PE: Constitutional: GCS 15, obese, appears fatigued but moves all extremities and responding appropriately HENT: Normocephalic, atraumatic, Eyes: JACINDA, EOMI, conjunctiva normal, no discharge. Neck: Normal range of motion, supple, Cardiovascular: S1/2 present, regular rhythm Lungs & Thorax: Speaking in full sentences, bilateral equal chest rise, no tachypnea or increased work of breathing Abdomen: soft, no tenderness, Skin: Warm, dry, Extremities: No tenderness, no cyanosis, Neurologic: Alert and oriented X 3, normal motor function, normal sensory function, no focal deficits noted, NIHSS Psychologic: Affect very flat, mood normal. [] Nexus C-spine criteria are negative: There is no post midline tenderness, the patient is not intoxicated, there is a normal level of alertness, there are no focal neurologic deficits and there are no distracting injuries. (TORI DE LA TORRE DO) EKG: EKG: [] (TORI DE LA TORRE DO) EKG: Paced rhythm, heart rate 84 bpm, wide-complex, right axis deviation, no ischemic changes (MARY ELLEN FREEMAN MD) Radiology/Procedures: Radiology/Procedures: [] (TORI DE LA TORRE DO) Radiology/Procedures: EXAM: CHEST ONE VIEW. HISTORY: Altered mental status, fall. COMPARISON: 12/01/2019. FINDINGS: A left-sided pacemaker/defibrillator has its leads in the right atrium, right ventricle and a left cardiac vein. There are small pleural effusions on the left greater than right. Left greater than right basilar opacities may reflect atelectasis or infiltrate in this setting. There is no pneumothorax. The heart is not enlarged. Enlargement of the pulmonary arteries suggests pulmonary arterial hypertension. No fractures are appreciated in the pelvis. The joint spaces and alignment of both hips are maintained. The sacroiliac joints appear somewhat widened with surrounding sclerosis. IMPRESSION: 1. Suspect a small to moderate left pleural effusion, with left greater than right basilar atelectasis or infiltrate. 2. Findings suggesting bilateral sacroiliitis. CT HEAD AND C-SPINE WO Date: 10/28/2020 6:12 PM Clinical Indication: Reason: ams / Spl. Instructions: / History: Comparison: 12/11/2018. Technique: 5 mm axial tomographic images were obtained of the head without contrast. These were viewed on brain and bone windows. CT imaging of the cervical spine was performed without contrast. Coronal and sagittal reformatted images were performed. One or more of the following dose reduction techniques were utilized: Automated exposure control (AEC), Adjustment of mA and/or kV according to patient size, Use of iterative reconstruction technique such as ASiR, CT scan done according to ALARA and image gently/image wisely HEAD FINDINGS: The brain parenchyma is normal in attenuation. No intra- or extra-axial mass or fluid collection. No acute hemorrhage. The ventricles are normal in size, shape, and morphology. The daniels-white matter junction is normal. The basilar cisterns are patent. The visualized paranasal sinuses are normal. The visualized portions of the orbits and globes are normal. The mastoid air cells are clear. No aggressive osseous lesion or fracture. CERVICAL SPINE FINDINGS: Straightening of the cervical lordosis. No acute fracture. 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 The intervertebral disc heights are maintained. No high-grade spinal canal stenosis or neural foraminal narrowing. The thyroid gland is normal. No cervical lymphadenopathy. The visualized aerodigestive tract is unremarkable. The visualized lung apices are clear. IMPRESSION: 1. No acute intracranial process. 2. No acute osseous abnormality of the cervical spine. (MARY ELLEN FREEMAN MD) Course & Med Decision Making: Course & Med Decision Making Pertinent Labs and Imaging studies reviewed. (See chart for details) Concern for unwitnessed fall, possible syncope. Orders placed for infection, trauma and syncope/cardiac process. Pt HD stable, afebrile, On 4L NC, in no respiratory distress. Due to shift change patient was signed out to Dr. Freeman for follow-up, reevaluation and dispo. ([facility]) Course & Med Decision Making No injuries on imaging., Patient continued to have diarrhea and given Lomotil. We will treat for diarrhea. Labs are at patient's baseline (MARY ELLEN FREEMAN MD) Dragon Disclaimer: Lisa Disclaimer: This electronic medical record was generated, in whole or in part, using a voice recognition dictation system. (TORI DE LA TORRE DO) Departure Departure Impression: Primary Impression: Fall Additional Impression: Diarrhea Disposition: DC HOME SELF CARE/HOMELESS Condition: STABLE Referrals: [facility]Z (PCP) Patient Instructions: Diet for Diarrhea, Adult Scripts Diphenoxylate Hcl/Atropine (LOMOTIL TABLET) 1 Each Tablet 1 TAB PO TID for diarrhea for 3 Days, #9 TAB Prov: MARY ELLEN FREEMAN MD 10/28/20 Dicyclomine Hcl (DICYCLOMINE HCL) 20 Mg Tablet 1 TAB PO TID for diarrhea for 10 Days, #30 TAB 1 Refill Prov: MARY ELLEN FREEMAN MD 10/28/20 Azithromycin (ZITHROMAX) 250 Mg Tablet 250 MG PO as directed for ANTI-BIOTIC, #6 TAB 0 Refills Take 2 PO x 1 days Then take 1 PO q 24 hour for the next 4 days Prov: MARY ELLEN FREEMAN MD 10/28/20 TORI DE LA TORRE DO Oct 28, 2020 18:05 MARY ELLEN FREEMAN MD Oct 28, 2020 20:30
[2020-10-28 18:27] LABS: BILIRUBIN,URINE NEGATIVE (NEG); CLARITY,URINE CLEAR; COLOR,URINE YELLOW; NITRITE,URINE NEGATIVE (NEG); PH,URINE 6.5 (<5.0-8.0); PROTEIN,URINE 100 mg/dL (NEG-TRACE); UROBILINOGEN,URINE 0.2 mg/dL (0.2 mg/dL)
[2020-10-28 18:36] LABS: BARBITURATES NEG (NEG); BENZODIAZEPINES NEG (NEG); CANNABINOIDS NEG (NEG); COCAINE NEG (NEG); METHADONE NEG (NEG); OPIATES NEG (NEG); PHENCYCLIDINE NEG (NEG)
[2020-10-28 18:38] LABS: AMPHETAMINE/METHAMPHETAMINE NEG (NEG)
[2020-10-28 18:41] LABS: BASO % 0 % (0-3); EOS # 0.1 x10^3/uL (0.0-0.7); EOS % 2 % (0-3); HEMATOCRIT 30.9 % (36.0-47.0); LYMPH # 0.9 x10^3/uL (1.0-4.8); LYMPH % 17 % (24-48); MEAN CORPUSCULAR HEMOGLOBIN 30 pg (25-35); MEAN CORPUSCULAR HGB CONC 32 g/dL (31-37); MEAN CORPUSCULAR VOLUME 93 fL (79-100); MONO # 0.5 x10^3/uL (0.0-1.1); MONO % 10 % (0-9); NEUT # 3.8 x10^3/uL (1.8-7.7); NEUT % 71 % (31-73); PLATELET COUNT 136 x10^3/uL (140-400); RED BLOOD COUNT 3.33 x10^6/uL (3.50-5.40); RED CELL DISTRIBUTION WIDTH 15.9 % (11.5-14.5); WHITE BLOOD COUNT 5.3 x10^3/uL (4.0-11.0)
[2020-10-28 18:41] LABS: HYALINE CASTS, URINE MANY /HPF
[2020-10-28 18:42] LABS: BACTERIA,URINE 0 /HPF (0-FEW); RBC,URINE 0 /HPF (0-2); WBC,URINE 0 /HPF (0-4)
[2020-10-28 18:52] LABS: PROTHROMBIN TIME PATIENT 12.9 SEC (11.7-14.0)
[2020-10-28 18:53] LABS: CALCIUM 8.9 mg/dL (8.5-10.1); CREATININE 1.1 mg/dL (0.6-1.0); GFR 61.5; POTASSIUM 3.6 mmol/L (3.5-5.1)
[2020-10-28 18:56] LABS: ACETAMIN < 2.0 mcg/ml (10-30); ETHANOL < 10 mg/dL (0-10); SALIC < 2.8 mg/dL (2.8-20.0)
[2020-10-28 18:59] LABS: ALBUMIN 2.9 g/dL (3.4-5.0); ALBUMIN/GLOBULIN RATIO 0.7 (1.0-1.7); MAGNESIUM 2.2 mg/dL (1.8-2.4); TOTAL BILIRUBIN 0.2 mg/dL (0.2-1.0); TOTAL PROTEIN 7.2 g/dL (6.4-8.2)
--- NOTE | 2020-10-28 19:05 | RAD ---
CT HEAD AND C-SPINE WO Date: 10/28/2020 6:12 PM Clinical Indication: Reason: ams / Spl. Instructions: / History: Comparison: 12/11/2018. Technique: 5 mm axial tomographic images were obtained of the head without contrast. These were view ed on brain and bone windows. CT imaging of the cervical spine was performed without contrast. Coron al and sagittal reformatted images were performed. One or more of the following dose reduction techni ques were utilized: Automated exposure control (AEC), Adjustment of mA and/or kV according to patient size, Use of iterative reconstruction technique such as ASiR, CT scan done according to ALARA and im age gently/image wisely HEAD FINDINGS: The brain parenchyma is normal in attenuation. No intra- or extra-axial mass or fluid collection. No acute hemorrhage. The ventricles are normal in size, shape, and morphology. The daniels-white matter billy ction is normal. The basilar cisterns are patent. The visualized paranasal sinuses are normal. The visualized portions of the orbits and globes are no rmal. The mastoid air cells are clear. No aggressive osseous lesion or fracture. CERVICAL SPINE FINDINGS: Straightening of the cervical lordosis. No acute fracture. 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 The intervertebral disc heights are maintained. No high-grade spinal canal stenosis or neural foramin al narrowing. The thyroid gland is normal. No cervical lymphadenopathy. The visualized aerodigestive tract is unrem arkable. The visualized lung apices are clear. IMPRESSION: 1. No acute intracranial process. 2. No acute osseous abnormality of the cervical spine. Electronically signed by: Jason Leslie MD (10/28/2020 7:03 PM) [facility]
[2020-10-28] MEDS ORDERED: DIPHENOXYLATE/ATROPINE TABLET. PO ONE (19:30)
--- NOTE | 2020-10-28 19:46 | RAD ---
EXAM: CHEST ONE VIEW. HISTORY: Altered mental status, fall. COMPARISON: 12/01/2019. FINDINGS: A left-sided pacemaker/defibrillator has its leads in the right atrium, right ventricle and a left cardiac vein. There are small pleural effusions on the left greater than right. Left greater than right basilar opa cities may reflect atelectasis or infiltrate in this setting. There is no pneumothorax. The heart is not enlarged. Enlargement of the pulmonary arteries suggests pulmonary arterial hypertension. No fractures are appreciated in the pelvis. The joint spaces and alignment of both hips are maintaine d. The sacroiliac joints appear somewhat widened with surrounding sclerosis. IMPRESSION: 1. Suspect a small to moderate left pleural effusion, with left greater than right basilar atelectasi s or infiltrate. 2. Findings suggesting bilateral sacroiliitis. Electronically signed by: Valdemar Alonso MD (10/28/2020 7:44 PM) [facility] [place]
[2020-10-28] MEDS ORDERED: AZITHROMYCIN 250 MG TABLET. PO ONE (20:15)
[2020-10-28] MEDS ORDERED: fentaNYL PF VIAL 100 MCG/2 ML VIAL IVP ONE (20:15)
[2020-10-28] MEDS ORDERED: DICYCLOMINE 20 MG/2 ML VIAL. IM ONE (20:15)
[2020-10-28] MEDS ORDERED: AZIT250T PO (20:30)
[2020-10-28] MEDS ORDERED: DIPH1TAB PO (20:30)
[2020-10-28] MEDS ORDERED: DICY20TA3 PO (20:30)
[2020-10-28 20:42] VITALS: BP 123/70
[2020-10-31] MEDS ORDERED: FOLI0.4T2 PO (05:10)
== END 2020-10-28 21:18 | disposition home or self-care (01) ==
LOC: ER 17:28
DX: R19.7 Diarrhea, unspecified (principal); F20.9 Schizophrenia, unspecified; I48.91 Unspecified atrial fibrillation; J45.909 Unspecified asthma, uncomplicated; E11.9 Type 2 diabetes mellitus without complications; K21.9 Gastro-esophageal reflux disease without esophagitis; E03.9 Hypothyroidism, unspecified; Z87.891 Personal history of nicotine dependence; Z95.0 Presence of cardiac pacemaker; Z91.011 Allergy to milk products; Z88.8 Allergy status to other drugs, medicaments and biological substances; W18.39XA Other fall on same level, initial encounter; Y93.89 Activity, other specified; Y92.89 Other specified places as the place of occurrence of the external cause; Y99.8 Other external cause status
CPT/HCPCS: 36415; 70450; 71045; 72125; 72170; 80053; 80307; 80329; 81001; 82550; 83735; 83880; 84484; 85025; 85610; 85730; 87040; 96372; 96374; 99285; G0480; J0500; J3010; 99282; 99283

== ENCOUNTER 2020-10-30 03:20 | Inpatient (IN) | payer MEDICAID ==
[~2020-10-30] VITALS: Ht 165.1 cm; Wt 88.7 kg
[2020-10-30] VITALS (10 sets, daily range): BP systolic 111–152; BP diastolic 58–75
[~2020-10-30 03:20] MED LIST changes: +DICY20TA3 PO; +DIPH1TAB PO
[2020-10-30] MEDS ORDERED: ACETAMINOPHEN 650 MG SUPP.RECT. PR ONE (03:45)
[2020-10-30 04:03] LABS: BILIRUBIN,URINE NEGATIVE (NEG); CLARITY,URINE CLEAR; COLOR,URINE YELLOW; NITRITE,URINE POSITIVE (NEG); PROTEIN,URINE 30 mg/dL (NEG-TRACE); UROBILINOGEN,URINE 0.2 mg/dL (0.2 mg/dL)
[2020-10-30 04:03] LABS: BASO % 0 % (0-3); EOS % 0 % (0-3); LYMPH # 1.1 x10^3/uL (1.0-4.8); LYMPH % 18 % (24-48); MEAN CORPUSCULAR HEMOGLOBIN 30 pg (25-35); MEAN CORPUSCULAR HGB CONC 32 g/dL (31-37); MEAN CORPUSCULAR VOLUME 93 fL (79-100); MONO # 0.6 x10^3/uL (0.0-1.1); MONO % 10 % (0-9); NEUT # 4.4 x10^3/uL (1.8-7.7); NEUT % 72 % (31-73); PLATELET COUNT 137 x10^3/uL (140-400); RED BLOOD COUNT 3.31 x10^6/uL (3.50-5.40); RED CELL DISTRIBUTION WIDTH 16.1 % (11.5-14.5); WHITE BLOOD COUNT 6.2 x10^3/uL (4.0-11.0)
[2020-10-30 04:10] LABS: BARBITURATES NEG (NEG); BENZODIAZEPINES NEG (NEG); CANNABINOIDS NEG (NEG); COCAINE NEG (NEG); METHADONE NEG (NEG); OPIATES NEG (NEG); PHENCYCLIDINE NEG (NEG)
[2020-10-30 04:11] LABS: CALCIUM 8.3 mg/dL (8.5-10.1); CREATININE 1.8 mg/dL (0.6-1.0); GFR 34.8; POTASSIUM 4.7 mmol/L (3.5-5.1)
[2020-10-30 04:11] LABS: AMORPHOUS SEDIMENT,UR PRESENT /HPF; BACTERIA,URINE MODERATE /HPF (0-FEW); HYALINE CASTS, URINE MANY /HPF; RBC,URINE RARE /HPF (0-2)
[2020-10-30 04:12] LABS: GRANULAR CASTS,URINE OCCASIONAL /HPF
[2020-10-30 04:16] LABS: AMPHETAMINE/METHAMPHETAMINE NEG (NEG)
[2020-10-30 04:17] LABS: ALBUMIN/GLOBULIN RATIO 0.7 (1.0-1.7); MAGNESIUM 2.4 mg/dL (1.8-2.4); TOTAL BILIRUBIN 0.2 mg/dL (0.2-1.0); TOTAL PROTEIN 7.6 g/dL (6.4-8.2)
--- NOTE | 2020-10-30 04:25 | RAD ---
INDICATION: Reason: fever / Spl. Instructions: / History: COMPARISON: October 28, 2020 FINDINGS: Single view of chest obtained. Enlarged cardiomediastinal silhouette with AICD again seen. The left mid to lower lung is obscured by the overlying enlarged cardiac silhouette as well as patient rotation. Mild interstitial and groundg lass opacities bilaterally. IMPRESSION: * Mild interstitial and groundglass opacities which could be from mild edema or interstitial infiltr ate. The left lower lung is obscured by the overlying enlarged cardiac silhouette. Electronically signed by: Pepe Zuniga MD (10/30/2020 4:23 AM) [id number]
[2020-10-30] MEDS ORDERED: IV NORMAL SALINE 1000ML BAG 1,000 ML IV ONE ×2 (04:30→05:30)
--- NOTE | 2020-10-30 04:34 | RAD ---
INDICATION: Reason: ams / Spl. Instructions: / History: COMPARISON: October 28, 2020 TECHNIQUE: Axial CT images obtained through the head without intravenous contrast. One or more of the following individualized dose reduction techniques were utilized for this examinat ion: 1. Automated exposure control; 2. Adjustment of the mA and/or kV according to patient size; 3 . Use of iterative reconstruction technique. FINDINGS: No intracranial hemorrhage. No midline shift. Basal cisterns patents. Ventricles and sulci are globally prominent. No acute osseous abnormality. Orbits and paranasal sinuses unremarkable. Scattered foci of low attenuation within the white matter. Calcifications at the basal ganglia again seen. IMPRESSION: 1. No acute intracranial hemorrhage. 2. Scattered regions of low attenuation within the white matter. Non-specific in nature but frequen tly secondary to chronic small vessel ischemic disease. If there is high clinical concern for acute e tiology MRI could better assess acuity. 3. Prominence of ventricles and sulci which is frequently secondary to age related volume loss. Electronically signed by: Pepe Zuniga MD (10/30/2020 4:31 AM) [id number]
[2020-10-30] MEDS ORDERED: PIPERACILLIN/TAZOBACTAM 3.375 GM in IV NORMAL SALINE 50ML 50 ML IV ONE (04:45)
[2020-10-30 04:46] LABS: BASE EXCESS ABG 5 mmol/L (-3-3); HCO3 ABG 34 mmol/L (21-28); PO2 ABG 104 mmHg (65-108); SAT O2 ABG 97 % (92-99)
[2020-10-30 04:48] LABS: FIO2 ABG 36; PCO2 ABG 82 mmHg (35-46)
[2020-10-30 05:23] LABS: INFLUENZA A PATIENT NEGATIVE (NEGATIVE); INFLUENZA B PATIENT NEGATIVE (NEGATIVE)
--- NOTE | 2020-10-30 05:38 | PHYS DOC ---
Past Medical History Past Medical History: A-Fib, Anxiety, Asthma, CHF, Constipation, Diabetes-Type II, GERD, Hypothyroid, Schizophrenia Additional Past Medical Histor: SCHIZOAFFECTIVE, RESTLESS LEG Past Surgical History: Pacemaker Additional Past Surgical Histo: Pacemaker/defib Smoking Status: Former Smoker Alcohol Use: None Drug Use: None General Adult EDM: Chief Complaint: ALTERED MENTAL STATUS HPI: HPI: Patient is a 60 year old who was sent here from retirement due to altered mental status. Patient was evaluated here on October 28 because she was found on the floor in her room at the retirement. CT scan of her head was normal. Patient was discharged back to the retirement, her retirement doctor wanted to have every 12-hour neuro check, so they checked her normal status this morning and found to be confused, therefore EMS was called to take her here for evaluation. Patient is on clonazepam,Risperdal and tramadol. Review of Systems: Review of Systems: not able to evaluate due to her condition Heart Score: HEART Score for Chest Pain: HEART Score for Chest Pain Response (Comments) Value History Slighlty/Non-Suspicious 0 ECG Nonspecific Repolarizatio 1 Age >45 - < 65 1 Risk Factors >3 Risk Factors or Hx CAD 2 Troponin >3 x Normal Limit 2 Total 6 Risk Factors: Risk Factors: DM, Current or recent (<one month) smoker, HTN, HLP, family history of CAD, obesity. Risk Scores: Score 0 - 3: 2.5% MACE over next 6 weeks - Discharge Home Score 4 - 6: 20.3% MACE over next 6 weeks - Admit for Clinical Observation Score 7 - 10: 72.7% MACE over next 6 weeks - Early Invasive Strategies Current Medications: Current Medications Medications (Trade) Dose Ordered Sig/Eber Start Time Stop Time Status Last Admin Dose Admin Acetaminophen (Tylenol Supp) 975 mg 1X ONCE 10/30/20 03:45 10/30/20 03:46 DC 10/30/20 03:54 975 MG Piperacillin Sod/ Tazobactam Sod 3.375 gm/Sodium Chloride 50 ml @ 100 mls/hr 1X ONCE 10/30/20 04:45 10/30/20 05:14 DC 10/30/20 04:54 100 MLS/HR Sodium Chloride 1,000 ml @ 1,000 mls/hr 1X ONCE 10/30/20 05:30 10/30/20 06:29 UNV 10/30/20 05:15 1,000 MLS/HR Allergies: Allergies: Allergies Coded Allergies Type Severity Reaction Last Updated Verified lactose Allergy Intermediate 02/25/16 Yes lisinopril Allergy Intermediate 08/08/15 Yes Physical Exam: PE: Constitutional: Well developed, well nourished, mild acute distress, toxic appearance. [] HENT: Normocephalic, atraumatic, bilateral external ears normal, oropharynx m oist, no oral exudates, nose normal. [] Eyes: PERRLA, EOMI, conjunctiva normal, no discharge. [] Neck: Normal range of motion, no tenderness, supple, no stridor. [] Cardiovascular:Heart rate regular rhythm, no murmur [] Lungs & Thorax: Bilateral breath crackles to auscultation [] Abdomen: Bowel sounds normal, soft, no tenderness, no masses, no pulsatile masses. [] Skin: Warm, dry, no erythema, no rash. [] Back: No tenderness, no CVA tenderness. [] Extremities: No tenderness, no cyanosis, no clubbing, ROM intact, no edema. [] Neurologic: patient was confused, moving all extremities, her speech was slow but confused, Psychologic: not able to evaluate. Current Patient Data: Labs: Laboratory Tests Test 10/30/20 03:35 10/30/20 03:45 10/30/20 04:45 10/30/20 04:49 Urine Collection Type U cath Urine Color Yellow Urine Clarity Clear Urine pH 6.0 (<5.0-8.0) Urine Specific [place] 1.020 (1.000-1.030) Urine Protein 30 mg/dL (NEG-TRACE) Urine Glucose (UA) Negative mg/dL (NEG) Urine Ketones (Stick) Negative mg/dL (NEG) Urine Blood Negative (NEG) Urine Nitrite Positive (NEG) Urine Bilirubin Negative (NEG) Urine Urobilinogen Dipstick 0.2 mg/dL (0.2 mg/dL) Urine Leukocyte Esterase Small (NEG) Urine RBC Rare /HPF (0-2) Urine WBC 5-10 /HPF (0-4) Urine Squamous Epithelial Cells Occ /LPF Urine Amorphous Sediment Present /HPF Urine Bacteria Moderate /HPF (0-FEW) Urine Hyaline Casts Many /HPF Urine Granular Casts Occasional /HPF Urine Mucus Marked /LPF Urine Opiates Screen Neg (NEG) Urine Methadone Screen Neg (NEG) Urine Barbiturates Neg (NEG) Urine Phencyclidine Screen Neg (NEG) Urine Amphetamine/Methamphetamine Neg (NEG) Urine Benzodiazepines Screen Neg (NEG) Urine Cocaine Screen Neg (NEG) Urine Cannabinoids Screen Neg (NEG) Urine Ethyl Alcohol Neg (NEG) White Blood Count 6.2 x10^3/uL (4.0-11.0) Red Blood Count 3.31 x10^6/uL (3.50-5.40) L Hemoglobin 10.0 g/dL (12.0-15.5) L Hematocrit 31.0 % (36.0-47.0) L Mean Corpuscular Volume 93 fL (79-100) Mean Corpuscular Hemoglobin 30 pg (25-35) Mean Corpuscular Hemoglobin Concent 32 g/dL (31-37) Red Cell Distribution Width 16.1 % (11.5-14.5) H Platelet Count 137 x10^3/uL (140-400) L Neutrophils (%) (Auto) 72 % (31-73) Lymphocytes (%) (Auto) 18 % (24-48) L Monocytes (%) (Auto) 10 % (0-9) H Eosinophils (%) (Auto) 0 % (0-3) Basophils (%) (Auto) 0 % (0-3) Neutrophils # (Auto) 4.4 x10^3/uL (1.8-7.7) Lymphocytes # (Auto) 1.1 x10^3/uL (1.0-4.8) Monocytes # (Auto) 0.6 x10^3/uL (0.0-1.1) Eosinophils # (Auto) 0.0 x10^3/uL (0.0-0.7) Basophils # (Auto) 0.0 x10^3/uL (0.0-0.2) Sodium Level 140 mmol/L (136-145) Potassium Level 4.7 mmol/L (3.5-5.1) Chloride Level 101 mmol/L (98-107) Carbon Dioxide Level 37 mmol/L (21-32) H Anion Gap 2 (6-14) L Blood Urea Nitrogen 12 mg/dL (7-20) Creatinine 1.8 mg/dL (0.6-1.0) H Estimated GFR (Cockcroft-Gault) 34.8 BUN/Creatinine Ratio 7 (6-20) Glucose Level 89 mg/dL (70-99) Lactic Acid Level 1.1 mmol/L (0.4-2.0) Calcium Level 8.3 mg/dL (8.5-10.1) L Magnesium Level 2.4 mg/dL (1.8-2.4) Total Bilirubin 0.2 mg/dL (0.2-1.0) Aspartate Amino Transferase (AST) 108 U/L (15-37) H Alanine Aminotransferase (ALT) 35 U/L (14-59) Alkaline Phosphatase 146 U/L (46-116) H Troponin I Quantitative 1.024 ng/mL (0.000-0.055) Total Protein 7.6 g/dL (6.4-8.2) Albumin 3.0 g/dL (3.4-5.0) L Albumin/Globulin Ratio 0.7 (1.0-1.7) L O2 Saturation 97 % (92-99) Arterial Blood pH 7.24 (7.35-7.45) L Arterial Blood pCO2 at Patient Temp 82 mmHg (35-46) *H Arterial Blood pO2 at Patient Temp 104 mmHg (65-108) Arterial Blood HCO3 34 mmol/L (21-28) H Arterial Blood Base Excess 5 mmol/L (-3-3) H FiO2 36 Influenza Type A Antigen Negative (NEGATIVE) Influenza Type B Antigen Negative (NEGATIVE) Laboratory Tests 10/30/20 03:45 Laboratory Tests 10/30/20 03:45 Vital Signs: Vital Signs Date Time Temp Pulse Resp B/P (MAP) Pulse Ox O2 Delivery O2 Flow Rate FiO2 10/30/20 04:59 100 BiPAP/CPAP 10/30/20 03:20 102.9 67 22 102/62 (75) 4.0 102.9 EKG: EKG: EKG was done at 340, HR OF 88 BPM, PVCs, paced, no STEMI. Radiology/Procedures: Radiology/Procedures: Intubation: Indication: Respiratory failure Consent: Unable to give consent due to emergent nature. Medications Used: see nursing note Procedure: The patient was placed in the appropriate position. Intubation was performed using Glidescope, ET # 7.5, SECURED 24 AT LIP. Initial confirmation of placement included bilateral breath sounds, tube fogging, adequate chest rise, adequate pulse oximetry reading. A chest x-ray to verify correct placement of the tube showed appropriate tube position. The patient tolerated the procedure well. Complications: none. [][id number] [place] [address] IMAGING REPORT Signed PATIENT: MARCOS CLIFTON ACCOUNT: [id number] : 1960 LOCATION: ER AGE: 60 SEX: F EXAM STATUS: REG ER ORD. PHYSICIAN: JUAN FRANCISCO MCGINNIS DO REASON: fever PROCEDURE: CHEST AP ONLY INDICATION: Reason: fever / Spl. Instructions: / History: COMPARISON: October 28, 2020 FINDINGS: Single view of chest obtained. Enlarged cardiomediastinal silhouette with AICD again seen. The left mid to lower lung is obscured by the overlying enlarged cardiac silhouette as well as patient rotation. Mild interstitial and groundglass opacities bilaterally. IMPRESSION: * Mild interstitial and groundglass opacities which could be from mild edema or interstitial infiltrate. The left lower lung is obscured by the overlying enlarged cardiac silhouette. Electronically signed by: Andrea Mejia MD (10/30/2020 4:23 AM) DESKTOP- [id number] DICTATED and SIGNED BY: ANDREA MEJIA MD DATE: 10/30/20 [id number] [address] IMAGING REPORT Signed PATIENT: MARCOS CLIFTON ACCOUNT: [id number] : 1960 LOCATION: ER AGE: 60 SEX: F EXAM STATUS: REG ER ORD. PHYSICIAN: JUAN FRANCISCO MCGINNIS DO REASON: ams PROCEDURE: CT HEAD WO CONTRAST INDICATION: Reason: ams / Spl. Instructions: / History: COMPARISON: October 28, 2020 TECHNIQUE: Axial CT images obtained through the head without intravenous contrast. One or more of the following individualized dose reduction techniques were utilized for this examination: 1. Automated exposure control; 2. Adjustment of the mA and/or kV according to patient size; 3. Use of iterative reconstruction technique. FINDINGS: No intracranial hemorrhage. No midline shift. Basal cisterns patents. Ventricles and sulci are globally prominent. No acute osseous abnormality. Orbits and paranasal sinuses unremarkable. Scattered foci of low attenuation within the white matter. Calcifications at the basal ganglia again seen. IMPRESSION: 1. No acute intracranial hemorrhage. 2. Scattered regions of low attenuation within the white matter. Non-specific in nature but frequently secondary to chronic small vessel ischemic disease. If there is high clinical concern for acute etiology MRI could better assess acuity. 3. Prominence of ventricles and sulci which is frequently secondary to age related volume loss. Electronically signed by: Andrea Mejia MD (10/30/2020 4:31 AM) DESKTOP- [id number] DICTATED and SIGNED BY: ANDREA MEJIA MD DATE: 10/30/20 [id number] Course & Med Decision Making: Course & Med Decision Making Pertinent Labs and Imaging studies reviewed. (See chart for details) Patient is a 60-year-old female who was sent here from retirement due to altered mental status. Patient was found to be hypercapnic. She was placed on BiPAP. Patient also found to have UTI, she was given IV fluid and IV antibiotic. Patient was hypoxic, her troponin elevated suspicious for pulmonary embolus, her creatinine level elevated, we will obtain VQ scan to evaluate for PE. Patient was given treatment dose of Lovenox in ER. Patient was on BIPAP for more than 1 hour, not getting better, therefore she was intubated. Critical care time was [45] minutes which includes time at bedside, spent in discussion of patient's care with specialist and/or family members, with in terpretation of laboratory and/or radiological studies and is exclusive of procedures. Dragon Disclaimer: Dragon Disclaimer: This electronic medical record was generated, in whole or in part, using a voice recognition dictation system. Departure Departure Impression: Primary Impression: Respiratory failure Additional Impressions: Hypercapnia AMS (altered mental status) UTI (urinary tract infection) Person under investigation for COVID-19 Disposition: 09 ADMITTED INPT THIS HOSP Admitting Physician: [facility]HT[facility] (DR. SANTOS) Condition: IMPROVED Referrals: [facility] (PCP) JUAN FRANCISCO MCGINNIS DO Oct 30, 2020 05:38
[2020-10-30] MEDS ORDERED: ONDANSETRON PF 4 MG/2 ML VIAL. IV PRN (06:00)
[2020-10-30] MEDS ORDERED: PIP/TAZO PER PHARMACY MC PRN (06:00)
[2020-10-30 06:30] LABS: BASE EXCESS ABG 4 mmol/L (-3-3); HCO3 ABG 33 mmol/L (21-28); PO2 ABG 90 mmHg (65-108); SAT O2 ABG 94 % (92-99)
[2020-10-30 06:40] LABS: FIO2 ABG 40; PCO2 ABG 81 mmHg (35-46)
[2020-10-30] MEDS ORDERED: MIDAZOLAM HCL 100 MG in IV NORMAL SALINE 100ML 100 ML IV ONE (06:45)
[2020-10-30] MEDS ORDERED: fentaNYL PF VIAL 100 MCG/2 ML VIAL IV ONE (07:30)
--- NOTE | 2020-10-30 08:04 | EKG ---
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
[2020-10-30] MEDS: IV NORMAL SALINE 1000ML BAG 1,000 ML IV SCH ×2 (08:12→22:15)
--- NOTE | 2020-10-30 08:21 | RAD ---
Examination: XR CHEST 1V History: post intubation Comparison/Correlation: 04/30/2020 4:11 AM Findings: Portable supine frontal view of the chest was obtained. Triple lead left-sided ICD is prese nt. Enteric tube terminates overlying the femoral component. Left basilar opacification noted right l ranjana field is unremarkable. No pneumothorax although the patient supine which may limit assessment. Tr acheal tube terminates approximately 0.6 cm from the laura. Mediastinum is within the left hemithora x. Impression: Left basilar consolidation similar to previous exam. Mediastinal shift to the left is evident and may represent atelectatic components. Tracheal tube terminates near the laura. Retraction by 1-2 cm should be considered. Electronically signed by: Rajiv Fry MD (10/30/2020 8:18 AM) [id number]
--- NOTE | 2020-10-30 08:24 | PDOC ---
PULMONARY PROGRESS NOTES DATE: 10/30/20 TIME: 08:24 Vitals Vital Signs Date Time Temp Pulse Resp B/P (MAP) Pulse Ox O2 Delivery O2 Flow Rate FiO2 10/30/20 07:38 24 99 Ventilator 10/30/20 05:42 84 105/56 (72) 40.0 10/30/20 03:20 102.9 102.9 General: Alert, No acute distress HEENT: Other Lungs: Clear Cardiovascular: S1, S2 Abdomen: Soft, Non-tender Extremities: Other Labs Laboratory Tests Test 10/30/20 03:35 10/30/20 03:45 10/30/20 04:45 10/30/20 04:49 Urine Collection Type U cath Urine Color Yellow Urine Clarity Clear Urine pH 6.0 (<5.0-8.0) Urine Specific [place] 1.020 (1.000-1.030) Urine Protein 30 mg/dL (NEG-TRACE) Urine Glucose (UA) Negative mg/dL (NEG) Urine Ketones (Stick) Negative mg/dL (NEG) Urine Blood Negative (NEG) Urine Nitrite Positive (NEG) Urine Bilirubin Negative (NEG) Urine Urobilinogen Dipstick 0.2 mg/dL (0.2 mg/dL) Urine Leukocyte Esterase Small (NEG) Urine RBC Rare /HPF (0-2) Urine WBC 5-10 /HPF (0-4) Urine Squamous Epithelial Cells Occ /LPF Urine Amorphous Sediment Present /HPF Urine Bacteria Moderate /HPF (0-FEW) Urine Hyaline Casts Many /HPF Urine Granular Casts Occasional /HPF Urine Mucus Marked /LPF Urine Opiates Screen Neg (NEG) Urine Methadone Screen Neg (NEG) Urine Barbiturates Neg (NEG) Urine Phencyclidine Screen Neg (NEG) Urine Amphetamine/Methamphetamine Neg (NEG) Urine Benzodiazepines Screen Neg (NEG) Urine Cocaine Screen Neg (NEG) Urine Cannabinoids Screen Neg (NEG) Urine Ethyl Alcohol Neg (NEG) White Blood Count 6.2 x10^3/uL (4.0-11.0) Red Blood Count 3.31 x10^6/uL (3.50-5.40) Hemoglobin 10.0 g/dL (12.0-15.5) Hematocrit 31.0 % (36.0-47.0) Mean Corpuscular Volume 93 fL (79-100) Mean Corpuscular Hemoglobin 30 pg (25-35) Mean Corpuscular Hemoglobin Concent 32 g/dL (31-37) Red Cell Distribution Width 16.1 % (11.5-14.5) Platelet Count 137 x10^3/uL (140-400) Neutrophils (%) (Auto) 72 % (31-73) Lymphocytes (%) (Auto) 18 % (24-48) Monocytes (%) (Auto) 10 % (0-9) Eosinophils (%) (Auto) 0 % (0-3) Basophils (%) (Auto) 0 % (0-3) Neutrophils # (Auto) 4.4 x10^3/uL (1.8-7.7) Lymphocytes # (Auto) 1.1 x10^3/uL (1.0-4.8) Monocytes # (Auto) 0.6 x10^3/uL (0.0-1.1) Eosinophils # (Auto) 0.0 x10^3/uL (0.0-0.7) Basophils # (Auto) 0.0 x10^3/uL (0.0-0.2) Sodium Level 140 mmol/L (136-145) Potassium Level 4.7 mmol/L (3.5-5.1) Chloride Level 101 mmol/L (98-107) Carbon Dioxide Level 37 mmol/L (21-32) Anion Gap 2 (6-14) Blood Urea Nitrogen 12 mg/dL (7-20) Creatinine 1.8 mg/dL (0.6-1.0) Estimated GFR (Cockcroft-Gault) 34.8 BUN/Creatinine Ratio 7 (6-20) Glucose Level 89 mg/dL (70-99) Lactic Acid Level 1.1 mmol/L (0.4-2.0) Calcium Level 8.3 mg/dL (8.5-10.1) Magnesium Level 2.4 mg/dL (1.8-2.4) Total Bilirubin 0.2 mg/dL (0.2-1.0) Aspartate Amino Transf (AST/SGOT) 108 U/L (15-37) Alanine Aminotransferase (ALT/SGPT) 35 U/L (14-59) Alkaline Phosphatase 146 U/L (46-116) Troponin I Quantitative 1.024 ng/mL (0.000-0.055) Total Protein 7.6 g/dL (6.4-8.2) Albumin 3.0 g/dL (3.4-5.0) Albumin/Globulin Ratio 0.7 (1.0-1.7) O2 Saturation 97 % (92-99) Arterial Blood pH 7.24 (7.35-7.45) Arterial Blood pCO2 at Patient Temp 82 mmHg (35-46) Arterial Blood pO2 at Patient Temp 104 mmHg (65-108) Arterial Blood HCO3 34 mmol/L (21-28) Arterial Blood Base Excess 5 mmol/L (-3-3) FiO2 36 Influenza Type A Antigen Negative (NEGATIVE) Influenza Type B Antigen Negative (NEGATIVE) Test 10/30/20 06:29 O2 Saturation 94 % (92-99) Arterial Blood pH 7.23 (7.35-7.45) Arterial Blood pCO2 at Patient Temp 81 mmHg (35-46) Arterial Blood pO2 at Patient Temp 90 mmHg (65-108) Arterial Blood HCO3 33 mmol/L (21-28) Arterial Blood Base Excess 4 mmol/L (-3-3) FiO2 40 Laboratory Tests Test 10/30/20 03:35 10/30/20 03:45 10/30/20 04:45 10/30/20 04:49 Urine Collection Type U cath Urine Color Yellow Urine Clarity Clear Urine pH 6.0 (<5.0-8.0) Urine Specific [place] 1.020 (1.000-1.030) Urine Protein 30 mg/dL (NEG-TRACE) Urine Glucose (UA) Negative mg/dL (NEG) Urine Ketones (Stick) Negative mg/dL (NEG) Urine Blood Negative (NEG) Urine Nitrite Positive (NEG) Urine Bilirubin Negative (NEG) Urine Urobilinogen Dipstick 0.2 mg/dL (0.2 mg/dL) Urine Leukocyte Esterase Small (NEG) Urine RBC Rare /HPF (0-2) Urine WBC 5-10 /HPF (0-4) Urine Squamous Epithelial Cells Occ /LPF Urine Amorphous Sediment Present /HPF Urine Bacteria Moderate /HPF (0-FEW) Urine Hyaline Casts Many /HPF Urine Granular Casts Occasional /HPF Urine Mucus Marked /LPF Urine Opiates Screen Neg (NEG) Urine Methadone Screen Neg (NEG) Urine Barbiturates Neg (NEG) Urine Phencyclidine Screen Neg (NEG) Urine Amphetamine/Methamphetamine Neg (NEG) Urine Benzodiazepines Screen Neg (NEG) Urine Cocaine Screen Neg (NEG) Urine Cannabinoids Screen Neg (NEG) Urine Ethyl Alcohol Neg (NEG) White Blood Count 6.2 x10^3/uL (4.0-11.0) Red Blood Count 3.31 x10^6/uL (3.50-5.40) Hemoglobin 10.0 g/dL (12.0-15.5) Hematocrit 31.0 % (36.0-47.0) Mean Corpuscular Volume 93 fL (79-100) Mean Corpuscular Hemoglobin 30 pg (25-35) Mean Corpuscular Hemoglobin Concent 32 g/dL (31-37) Red Cell Distribution Width 16.1 % (11.5-14.5) Platelet Count 137 x10^3/uL (140-400) Neutrophils (%) (Auto) 72 % (31-73) Lymphocytes (%) (Auto) 18 % (24-48) Monocytes (%) (Auto) 10 % (0-9) Eosinophils (%) (Auto) 0 % (0-3) Basophils (%) (Auto) 0 % (0-3) Neutrophils # (Auto) 4.4 x10^3/uL (1.8-7.7) Lymphocytes # (Auto) 1.1 x10^3/uL (1.0-4.8) Monocytes # (Auto) 0.6 x10^3/uL (0.0-1.1) Eosinophils # (Auto) 0.0 x10^3/uL (0.0-0.7) Basophils # (Auto) 0.0 x10^3/uL (0.0-0.2) Sodium Level 140 mmol/L (136-145) Potassium Level 4.7 mmol/L (3.5-5.1) Chloride Level 101 mmol/L (98-107) Carbon Dioxide Level 37 mmol/L (21-32) Anion Gap 2 (6-14) Blood Urea Nitrogen 12 mg/dL (7-20) Creatinine 1.8 mg/dL (0.6-1.0) Estimated GFR (Cockcroft-Gault) 34.8 BUN/Creatinine Ratio 7 (6-20) Glucose Level 89 mg/dL (70-99) Lactic Acid Level 1.1 mmol/L (0.4-2.0) Calcium Level 8.3 mg/dL (8.5-10.1) Magnesium Level 2.4 mg/dL (1.8-2.4) Total Bilirubin 0.2 mg/dL (0.2-1.0) Aspartate Amino Transf (AST/SGOT) 108 U/L (15-37) Alanine Aminotransferase (ALT/SGPT) 35 U/L (14-59) Alkaline Phosphatase 146 U/L (46-116) Troponin I Quantitative 1.024 ng/mL (0.000-0.055) Total Protein 7.6 g/dL (6.4-8.2) Albumin 3.0 g/dL (3.4-5.0) Albumin/Globulin Ratio 0.7 (1.0-1.7) O2 Saturation 97 % (92-99) Arterial Blood pH 7.24 (7.35-7.45) Arterial Blood pCO2 at Patient Temp 82 mmHg (35-46) Arterial Blood pO2 at Patient Temp 104 mmHg (65-108) Arterial Blood HCO3 34 mmol/L (21-28) Arterial Blood Base Excess 5 mmol/L (-3-3) FiO2 36 Influenza Type A Antigen Negative (NEGATIVE) Influenza Type B Antigen Negative (NEGATIVE) Test 10/30/20 06:29 O2 Saturation 94 % (92-99) Arterial Blood pH 7.23 (7.35-7.45) Arterial Blood pCO2 at Patient Temp 81 mmHg (35-46) Arterial Blood pO2 at Patient Temp 90 mmHg (65-108) Arterial Blood HCO3 33 mmol/L (21-28) Arterial Blood Base Excess 4 mmol/L (-3-3) FiO2 40 Medications Active Scripts Medications Dose Route/Sig Max Daily Dose Days Date Category Dose Instructions Lomotil Tablet (Diphenoxylate Hcl/Atropine) 1 Each Tablet 1 Tab PO TID 3 10/28/20 Rx Dicyclomine Hcl 20 Mg Tablet 1 Tab PO TID 10 10/28/20 Rx Zithromax (Azithromycin) 250 Mg Tablet 250 Mg PO DIRECTED 10/28/20 Rx Take 2 PO x 1 days Then take 1 PO q 24 hour for the next 4 days Doxycycline Hyclate 100 Mg Tablet 1 Tab PO BID 3 12/04/19 Rx Culturelle (Lactobacillus Rhamnosus Gg) 1 Each Cap.sprink 1 Cap PO BID 14 12/04/19 Rx Zofran (Ondansetron Hcl) 4 Mg Tablet 4 Mg PO Q8HRS PRN 12/02/19 Reported Tramadol Hcl 50 Mg Tablet 50 Mg PO Q6HRS PRN 12/02/19 Reported Tears Again (Polyvinyl Alcohol) 15 Ml Drops 2 Drop EACHEYE Q4HRS 30 12/02/19 Reported Polyvinyl Alcohol 15 Ml Drops 2 Drop EACHEYE Q4HRS 30 12/02/19 Reported Ropinirole Hcl 1 Mg Tablet 1 Mg PO BID 12/02/19 Reported Pantoprazole Sodium (Pantoprazole Sodium) 40 Mg Tablet.dr 40 Mg PO DAILYAC 12/02/19 Reported B-Complex Plus Vitamin C (B Complex With Vitamin C) 1 Each Tablet 1 Each PO DAILY 12/02/19 Reported Magnesium Oxide 400 Mg Tablet 400 Mg PO DAILY 12/02/19 Reported Loratadine 10 Mg Tablet 10 Mg PO DAILY 12/02/19 Reported Ketotifen Fumarate 5 Ml Drops 1 Drop EACHEYE BID 12/02/19 Reported Humalog (Insulin Lispro) 100 Unit/1 Ml Vial 100 Unit SQ BIDWMEALS 12/02/19 Reported 70 - 150 0 units 151 - 200 0 units 201 - 250 2 units 251 - 300 3 units 301 - 349 4 units if FSBS is under 70 or 350 and over call MD [guaifenesin Syrup] 10 Ml PO Q4HRS PRN 12/02/19 Reported Mucinex (Guaifenesin) 600 Mg Tablet.er 600 Mg PO BID 12/02/19 Reported Coreg (Carvedilol) 25 Mg Tablet 50 Mg PO BIDWMEALS 12/02/19 Reported Peridex (Chlorhexidine Gluconate) 15 Ml Mouthwash 15 Ml PO BID 30 12/02/19 Reported Swish in mouth for 30 seconds then spit out Calcium Carbonate 500 Mg Tablet 500 Mg PO Q4HRS 12/02/19 Reported Atorvastatin Calcium 10 Mg Tablet 10 Mg PO HS 12/02/19 Reported Acetaminophen 325 Mg Tablet 650 Mg PO Q6HRS 12/02/19 Reported Metformin Hcl 500 Mg Tablet 250 Mg PO BIDWMEALS 12/03/18 Reported Imodium A-D (Loperamide HCl) 2 Mg Capsule 2 Mg PO DAILY PRN 12/03/18 Reported Risperidone 0.5 Mg Tablet 0.5 Mg PO DAILY 03/21/18 Reported Risperidone 1 Mg Tablet 1 Tab PO QHS 03/21/18 Reported Levothyroxine Sodium 112 Mcg Tablet 1 Tab PO DAILY 03/21/18 Reported Advair 500-50 Diskus (Fluticasone/Salmeterol) 1 Each Disk.w.dev 1 Puff IH BID 03/21/18 Reported Nystatin 15 Gm Powder 1 Scott TP PRN BID PRN 03/21/18 Reported Clonazepam (Clonazepam) 0.5 Mg Tablet 1 Tab PO BID 09/30/16 Reported Montelukast Sodium Tablet (Montelukast Sodium) 10 Mg Tablet 1 Tab PO HS 02/18/16 Reported Gas-X (Simethicone) 80 Mg Tab.chew 160 Mg PO Q2HR PRN 02/18/16 Reported Gabapentin (Gabapentin) 100 Mg Capsule 100 Mg PO TID 02/18/16 Reported MIGUEL NOE MD Oct 30, 2020 08:24
[2020-10-30 08:50] LABS: BASE EXCESS ABG 5 mmol/L (-3-3); HCO3 ABG 30 mmol/L (21-28); PCO2 ABG 49 mmHg (35-46); PO2 ABG 75 mmHg (65-108); SAT O2 ABG 95 % (92-99)
[2020-10-30 08:53] LABS: FIO2 ABG 40% VENT
[2020-10-30] MEDS: PROPOFOL 100 ML IV PRN ×3 (09:20→23:40)
[2020-10-30] MEDS ORDERED: FUROSEMIDE 40 MG/4 ML VIAL. IVP ONE (09:45)
--- NOTE | 2020-10-30 09:57 | PDOC2 ---
MATY ROJAS POLICE RESERVES COMMANDER 10/30/20 0957: CARDIAC CONSULT DATE OF CONSULT Date of Consult DATE: 10/30/20 TIME: 09:47 REASON FOR CONSULT Reason for Consult: SOA Elevated troponin REFERRING PHYSICIAN Referring Physician: Dr. Palomares SOURCE Source: Chart review, Patient HISTORY OF PRESENT ILLNESS HISTORY OF PRESENT ILLNESS This is a 60 yo female who presented from nursing facility secondary to altered mental status. Was noted with hypercapnia, respiratory distress. Initially placed on BiPAP, but eventually required intubation. Troponin noted to be elevated, which prompted this consult. PAST MEDICAL HISTORY Past Medical History Cardiovascular: CHF, HTN, Hyperlipidemia, Other (CMP with [employer]-D: [facility]) Pulmonary: Asthma CENTRAL NERVOUS SYSTEM: Other (restless legs; sleep disorder) GI: GERD, Other (dysphagia) Heme/Onc: No pertinent hx Hepatobiliary: No pertinent hx Psych: Anxiety, Depression, Schizophrenia Musculoskeletal: Osteoarthritis, Other (obesity) Rheumatologic: No pertinent hx Infectious disease: No pertinent hx ENT: No pertinent hx Renal/: UTI Endocrine: Diabetes, Hypothyroidism PAST SURGICAL HISTORY Past Surgical History Pacemaker ([facility] [employer]-D; [employer] leads) FAMILY HISTORY Family History: Family History Unknown SOCIAL HISTORY Smoke: Quit ALCOHOL: none Drugs: None Lives: [facility] CURRENT MEDICATIONS CURRENT MEDICATIONS Current Medications Medications (Trade) Dose Ordered Sig/Eber Route PRN Reason Start Time Stop Time Status Last Admin Dose Admin Acetaminophen (Tylenol Supp) 975 mg 1X ONCE ND 10/30/20 03:45 10/30/20 03:46 DC 10/30/20 03:54 Piperacillin Sod/ Tazobactam Sod 3.375 gm/Sodium Chloride 50 ml @ 100 mls/hr 1X ONCE IV 10/30/20 04:45 10/30/20 05:14 DC 10/30/20 04:54 Sodium Chloride 1,000 ml @ 1,000 mls/hr 1X ONCE IV 10/30/20 04:30 10/30/20 05:29 DC 10/30/20 04:52 Sodium Chloride 1,000 ml @ 1,000 mls/hr 1X ONCE IV 10/30/20 05:30 10/30/20 06:29 DC 10/30/20 05:15 Sodium Chloride 1,000 ml @ 75 mls/hr [id number] IV 10/30/20 06:00 10/31/20 05:59 10/30/20 08:12 Enoxaparin Sodium (Lovenox 120mg Syringe) 110 mg 1X ONCE SQ 10/30/20 06:15 10/30/20 06:16 DC 10/30/20 06:27 Midazolam HCl 100 mg/Sodium Chloride 100 ml @ 0 mls/hr ONCE ONCE IV 10/30/20 06:45 10/30/20 06:46 DC 10/30/20 07:10 Fentanyl Citrate (Fentanyl 2ml Vial) 100 mcg 1X ONCE IV 10/30/20 07:30 10/30/20 07:31 DC 10/30/20 07:38 Propofol 100 ml @ 3.408 mls/ hr CONT PRN IV PER PROTOCOL 10/30/20 09:00 10/30/20 09:20 ALLERGIES ALLERGIES: Coded Allergies: lactose (Verified Allergy, Intermediate, 02/25/16) lisinopril (Verified Allergy, Intermediate, 08/08/15) ROS Review of System unobtainable PHYSICAL EXAM General: No acute distress Lungs: Other (mechanical vent ) Heart: Regular rate Abdomen: Soft Extremities: No edema Skin: No significant lesion Neuro: Other (sedated) MUSCULOSKELETAL: Osteoarthritic changes both hands VITALS/I&O VITALS/I&O: Vital Signs Date Time Temp Pulse Resp B/P (MAP) Pulse Ox O2 Delivery O2 Flow Rate FiO2 10/30/20 09:00 80 115/68 (84) 95 Ventilator 10/30/20 08:55 24 10/30/20 08:53 99.1 99.1 10/30/20 05:42 40.0 I & O 10/29/20 10/29/20 10/30/20 15:00 23:00 07:00 Intake Total 50 ml Balance 50 ml LABS Lab: Laboratory Tests Test 10/30/20 03:35 10/30/20 03:45 10/30/20 04:45 10/30/20 04:49 Urine Collection Type U cath Urine Color Yellow Urine Clarity Clear Urine pH 6.0 (<5.0-8.0) Urine Specific [place] 1.020 (1.000-1.030) Urine Protein 30 mg/dL (NEG-TRACE) Urine Glucose (UA) Negative mg/dL (NEG) Urine Ketones (Stick) Negative mg/dL (NEG) Urine Blood Negative (NEG) Urine Nitrite Positive (NEG) Urine Bilirubin Negative (NEG) Urine Urobilinogen Dipstick 0.2 mg/dL (0.2 mg/dL) Urine Leukocyte Esterase Small (NEG) Urine RBC Rare /HPF (0-2) Urine WBC 5-10 /HPF (0-4) Urine Squamous Epithelial Cells Occ /LPF Urine Amorphous Sediment Present /HPF Urine Bacteria Moderate /HPF (0-FEW) Urine Hyaline Casts Many /HPF Urine Granular Casts Occasional /HPF Urine Mucus Marked /LPF Urine Opiates Screen Neg (NEG) Urine Methadone Screen Neg (NEG) Urine Barbiturates Neg (NEG) Urine Phencyclidine Screen Neg (NEG) Urine Amphetamine/Methamphetamine Neg (NEG) Urine Benzodiazepines Screen Neg (NEG) Urine Cocaine Screen Neg (NEG) Urine Cannabinoids Screen Neg (NEG) Urine Ethyl Alcohol Neg (NEG) White Blood Count 6.2 x10^3/uL (4.0-11.0) Red Blood Count 3.31 x10^6/uL (3.50-5.40) L Hemoglobin 10.0 g/dL (12.0-15.5) L Hematocrit 31.0 % (36.0-47.0) L Mean Corpuscular Volume 93 fL (79-100) Mean Corpuscular Hemoglobin 30 pg (25-35) Mean Corpuscular Hemoglobin Concent 32 g/dL (31-37) Red Cell Distribution Width 16.1 % (11.5-14.5) H Platelet Count 137 x10^3/uL (140-400) L Neutrophils (%) (Auto) 72 % (31-73) Lymphocytes (%) (Auto) 18 % (24-48) L Monocytes (%) (Auto) 10 % (0-9) H Eosinophils (%) (Auto) 0 % (0-3) Basophils (%) (Auto) 0 % (0-3) Neutrophils # (Auto) 4.4 x10^3/uL (1.8-7.7) Lymphocytes # (Auto) 1.1 x10^3/uL (1.0-4.8) Monocytes # (Auto) 0.6 x10^3/uL (0.0-1.1) Eosinophils # (Auto) 0.0 x10^3/uL (0.0-0.7) Basophils # (Auto) 0.0 x10^3/uL (0.0-0.2) Sodium Level 140 mmol/L (136-145) Potassium Level 4.7 mmol/L (3.5-5.1) Chloride Level 101 mmol/L (98-107) Carbon Dioxide Level 37 mmol/L (21-32) H Anion Gap 2 (6-14) L Blood Urea Nitrogen 12 mg/dL (7-20) Creatinine 1.8 mg/dL (0.6-1.0) H Estimated GFR (Cockcroft-Gault) 34.8 BUN/Creatinine Ratio 7 (6-20) Glucose Level 89 mg/dL (70-99) Lactic Acid Level 1.1 mmol/L (0.4-2.0) Calcium Level 8.3 mg/dL (8.5-10.1) L Magnesium Level 2.4 mg/dL (1.8-2.4) Total Bilirubin 0.2 mg/dL (0.2-1.0) Aspartate Amino Transferase (AST) 108 U/L (15-37) H Alanine Aminotransferase (ALT) 35 U/L (14-59) Alkaline Phosphatase 146 U/L (46-116) H Troponin I Quantitative 1.024 ng/mL (0.000-0.055) GR-Ozz-P-Type Natriuretic Peptide 1867 pg/mL (0-124) H Total Protein 7.6 g/dL (6.4-8.2) Albumin 3.0 g/dL (3.4-5.0) L Albumin/Globulin Ratio 0.7 (1.0-1.7) L O2 Saturation 97 % (92-99) Arterial Blood pH 7.24 (7.35-7.45) L Arterial Blood pCO2 at Patient Temp 82 mmHg (35-46) *H Arterial Blood pO2 at Patient Temp 104 mmHg (65-108) Arterial Blood HCO3 34 mmol/L (21-28) H Arterial Blood Base Excess 5 mmol/L (-3-3) H FiO2 36 Influenza Type A Antigen Negative (NEGATIVE) Influenza Type B Antigen Negative (NEGATIVE) Test 10/30/20 06:29 10/30/20 08:45 O2 Saturation 94 % (92-99) 95 % (92-99) Arterial Blood pH 7.23 (7.35-7.45) L 7.41 (7.35-7.45) Arterial Blood pCO2 at Patient Temp 81 mmHg (35-46) *H 49 mmHg (35-46) H Arterial Blood pO2 at Patient Temp 90 mmHg (65-108) 75 mmHg (65-108) Arterial Blood HCO3 33 mmol/L (21-28) H 30 mmol/L (21-28) H Arterial Blood Base Excess 4 mmol/L (-3-3) H 5 mmol/L (-3-3) H FiO2 40 40% vent Laboratory Tests 10/30/20 03:45 Laboratory Tests 10/30/20 03:45 ECHOCARDIOGRAM ECHOCARDIOGRAM <Conclusion> Basal posterior wall hypokinesis. The Ejection Fraction is 45%. Mild to moderate mitral regurgitation. Trace tricuspid regurgitation with an estimated PAP of 36 mmHg. There is no evidence of significant pericardial effusion. DATE: 12/04/19 1013 ASSESSMENT/PLAN ASSESSMENT/PLAN 1. Acute respiratory failure requiting intubation with a/c CHF and possible PNA 2. Acute on chronic systolic CHF; s/p IV diuresis 3. Cardiomyopathy; s/p [employer]-d ([facility]). Echo 12/04 with LVEF 45%. Device check with normal function. No arrhythmias noted 4. NSTEMI; initial trop 1. Most probable type II, demand ischemia 5. AFIB; v-paced with underlying SR 6. Hypertension; controlled 7. Hyperlipidemia; statin 8. Diabetes, II 9. Hypothyroidism; on replacement 10. Encephalopathy 11. Anxiety, depression, schizoaffective disorder. 12. PUI; COVID pending Recommendations Trend troponin Lipids ASA; monitor PLTs SQ Heparin Resume coreg; will start at low-dose. Titrate up at BP allows. Echo if COVID negative Additional diuresis PRN Lung optimization as per pulm Consider outpatient ischemic evaluation Supportive care RADHA SWAN MD 10/30/20 1909: CARDIAC CONSULT ASSESSMENT/PLAN ASSESSMENT/PLAN Agree with TRACKMOBILE OPERATOR's assessment and plan. Trop elevation prob demand ischemia Recent echo results noted above - will repeat if covid negative Plan ischemic evaluation as outpatient Continue diuresis for ac on chr systolic HF Last [employer] device check showed normal function Thank you for your consultation MATY ROJAS APRN Oct 30, 2020 09:57 RADHA SWAN MD Oct 30, 2020 19:09
[2020-10-30] MEDS ORDERED: ETOMIDATE 20 MG/10 ML VIAL. IV ONE (10:43)
[2020-10-30] MEDS ORDERED: SUCCINYLCHOLINE 200 MG/10 ML VIAL. ONE (10:43)
--- NOTE | 2020-10-30 10:53 | RAD ---
XR CHEST 1V 10/30/2020 10:13 AM INDICATION: Post intubation COMPARISON: 10/30/2020 TECHNIQUE: Portable frontal view of the chest is provided. FINDINGS/ IMPRESSION: The cardiomediastinal silhouette is similar in appearance. There is improving aeration of the left jerry ng base with persistent small left pleural effusion with adjacent compressive atelectasis versus infi ltrate. Endotracheal tube terminates 1 to 2 cm above the laura. This may be retracted 2 cm. Nasogastric tube is in similar position. Left chest wall cardiac device is identified with leads projecting over the right atrium, right ventricle and coronary sinus. No suspicious osseous abnormality. Electronically signed by: Minnie Mahmood MD (10/30/2020 10:51 AM) [id number]
--- NOTE | 2020-10-30 11:01 | PDOC ---
PULMONARY PROGRESS NOTES DATE: 10/30/20 TIME: 11:01 Vitals Vital Signs Date Time Temp Pulse Resp B/P (MAP) Pulse Ox O2 Delivery O2 Flow Rate FiO2 10/30/20 10:00 70 24 117/63 (81) 100 Ventilator 10/30/20 08:53 99.1 99.1 10/30/20 05:42 40.0 General: Alert, No acute distress HEENT: Other Lungs: Clear Cardiovascular: S1, S2 Abdomen: Soft, Non-tender Extremities: Other Labs Laboratory Tests Test 10/30/20 03:35 10/30/20 03:45 10/30/20 04:45 10/30/20 04:49 Urine Collection Type U cath Urine Color Yellow Urine Clarity Clear Urine pH 6.0 (<5.0-8.0) Urine Specific [place] 1.020 (1.000-1.030) Urine Protein 30 mg/dL (NEG-TRACE) Urine Glucose (UA) Negative mg/dL (NEG) Urine Ketones (Stick) Negative mg/dL (NEG) Urine Blood Negative (NEG) Urine Nitrite Positive (NEG) Urine Bilirubin Negative (NEG) Urine Urobilinogen Dipstick 0.2 mg/dL (0.2 mg/dL) Urine Leukocyte Esterase Small (NEG) Urine RBC Rare /HPF (0-2) Urine WBC 5-10 /HPF (0-4) Urine Squamous Epithelial Cells Occ /LPF Urine Amorphous Sediment Present /HPF Urine Bacteria Moderate /HPF (0-FEW) Urine Hyaline Casts Many /HPF Urine Granular Casts Occasional /HPF Urine Mucus Marked /LPF Urine Opiates Screen Neg (NEG) Urine Methadone Screen Neg (NEG) Urine Barbiturates Neg (NEG) Urine Phencyclidine Screen Neg (NEG) Urine Amphetamine/Methamphetamine Neg (NEG) Urine Benzodiazepines Screen Neg (NEG) Urine Cocaine Screen Neg (NEG) Urine Cannabinoids Screen Neg (NEG) Urine Ethyl Alcohol Neg (NEG) White Blood Count 6.2 x10^3/uL (4.0-11.0) Red Blood Count 3.31 x10^6/uL (3.50-5.40) Hemoglobin 10.0 g/dL (12.0-15.5) Hematocrit 31.0 % (36.0-47.0) Mean Corpuscular Volume 93 fL (79-100) Mean Corpuscular Hemoglobin 30 pg (25-35) Mean Corpuscular Hemoglobin Concent 32 g/dL (31-37) Red Cell Distribution Width 16.1 % (11.5-14.5) Platelet Count 137 x10^3/uL (140-400) Neutrophils (%) (Auto) 72 % (31-73) Lymphocytes (%) (Auto) 18 % (24-48) Monocytes (%) (Auto) 10 % (0-9) Eosinophils (%) (Auto) 0 % (0-3) Basophils (%) (Auto) 0 % (0-3) Neutrophils # (Auto) 4.4 x10^3/uL (1.8-7.7) Lymphocytes # (Auto) 1.1 x10^3/uL (1.0-4.8) Monocytes # (Auto) 0.6 x10^3/uL (0.0-1.1) Eosinophils # (Auto) 0.0 x10^3/uL (0.0-0.7) Basophils # (Auto) 0.0 x10^3/uL (0.0-0.2) Sodium Level 140 mmol/L (136-145) Potassium Level 4.7 mmol/L (3.5-5.1) Chloride Level 101 mmol/L (98-107) Carbon Dioxide Level 37 mmol/L (21-32) Anion Gap 2 (6-14) Blood Urea Nitrogen 12 mg/dL (7-20) Creatinine 1.8 mg/dL (0.6-1.0) Estimated GFR (Cockcroft-Gault) 34.8 BUN/Creatinine Ratio 7 (6-20) Glucose Level 89 mg/dL (70-99) Lactic Acid Level 1.1 mmol/L (0.4-2.0) Calcium Level 8.3 mg/dL (8.5-10.1) Magnesium Level 2.4 mg/dL (1.8-2.4) Total Bilirubin 0.2 mg/dL (0.2-1.0) Aspartate Amino Transf (AST/SGOT) 108 U/L (15-37) Alanine Aminotransferase (ALT/SGPT) 35 U/L (14-59) Alkaline Phosphatase 146 U/L (46-116) Troponin I Quantitative 1.024 ng/mL (0.000-0.055) OU-Vpf-V-Type Natriuretic Peptide 1867 pg/mL (0-124) Total Protein 7.6 g/dL (6.4-8.2) Albumin 3.0 g/dL (3.4-5.0) Albumin/Globulin Ratio 0.7 (1.0-1.7) O2 Saturation 97 % (92-99) Arterial Blood pH 7.24 (7.35-7.45) Arterial Blood pCO2 at Patient Temp 82 mmHg (35-46) Arterial Blood pO2 at Patient Temp 104 mmHg (65-108) Arterial Blood HCO3 34 mmol/L (21-28) Arterial Blood Base Excess 5 mmol/L (-3-3) FiO2 36 Influenza Type A Antigen Negative (NEGATIVE) Influenza Type B Antigen Negative (NEGATIVE) Test 10/30/20 06:29 10/30/20 08:45 10/30/20 09:25 O2 Saturation 94 % (92-99) 95 % (92-99) Arterial Blood pH 7.23 (7.35-7.45) 7.41 (7.35-7.45) Arterial Blood pCO2 at Patient Temp 81 mmHg (35-46) 49 mmHg (35-46) Arterial Blood pO2 at Patient Temp 90 mmHg (65-108) 75 mmHg (65-108) Arterial Blood HCO3 33 mmol/L (21-28) 30 mmol/L (21-28) Arterial Blood Base Excess 4 mmol/L (-3-3) 5 mmol/L (-3-3) FiO2 40 40% vent Troponin I Quantitative 1.101 ng/mL (0.000-0.055) Laboratory Tests Test 10/30/20 03:35 10/30/20 03:45 10/30/20 04:45 10/30/20 04:49 Urine Collection Type U cath Urine Color Yellow Urine Clarity Clear Urine pH 6.0 (<5.0-8.0) Urine Specific [place] 1.020 (1.000-1.030) Urine Protein 30 mg/dL (NEG-TRACE) Urine Glucose (UA) Negative mg/dL (NEG) Urine Ketones (Stick) Negative mg/dL (NEG) Urine Blood Negative (NEG) Urine Nitrite Positive (NEG) Urine Bilirubin Negative (NEG) Urine Urobilinogen Dipstick 0.2 mg/dL (0.2 mg/dL) Urine Leukocyte Esterase Small (NEG) Urine RBC Rare /HPF (0-2) Urine WBC 5-10 /HPF (0-4) Urine Squamous Epithelial Cells Occ /LPF Urine Amorphous Sediment Present /HPF Urine Bacteria Moderate /HPF (0-FEW) Urine Hyaline Casts Many /HPF Urine Granular Casts Occasional /HPF Urine Mucus Marked /LPF Urine Opiates Screen Neg (NEG) Urine Methadone Screen Neg (NEG) Urine Barbiturates Neg (NEG) Urine Phencyclidine Screen Neg (NEG) Urine Amphetamine/Methamphetamine Neg (NEG) Urine Benzodiazepines Screen Neg (NEG) Urine Cocaine Screen Neg (NEG) Urine Cannabinoids Screen Neg (NEG) Urine Ethyl Alcohol Neg (NEG) White Blood Count 6.2 x10^3/uL (4.0-11.0) Red Blood Count 3.31 x10^6/uL (3.50-5.40) Hemoglobin 10.0 g/dL (12.0-15.5) Hematocrit 31.0 % (36.0-47.0) Mean Corpuscular Volume 93 fL (79-100) Mean Corpuscular Hemoglobin 30 pg (25-35) Mean Corpuscular Hemoglobin Concent 32 g/dL (31-37) Red Cell Distribution Width 16.1 % (11.5-14.5) Platelet Count 137 x10^3/uL (140-400) Neutrophils (%) (Auto) 72 % (31-73) Lymphocytes (%) (Auto) 18 % (24-48) Monocytes (%) (Auto) 10 % (0-9) Eosinophils (%) (Auto) 0 % (0-3) Basophils (%) (Auto) 0 % (0-3) Neutrophils # (Auto) 4.4 x10^3/uL (1.8-7.7) Lymphocytes # (Auto) 1.1 x10^3/uL (1.0-4.8) Monocytes # (Auto) 0.6 x10^3/uL (0.0-1.1) Eosinophils # (Auto) 0.0 x10^3/uL (0.0-0.7) Basophils # (Auto) 0.0 x10^3/uL (0.0-0.2) Sodium Level 140 mmol/L (136-145) Potassium Level 4.7 mmol/L (3.5-5.1) Chloride Level 101 mmol/L (98-107) Carbon Dioxide Level 37 mmol/L (21-32) Anion Gap 2 (6-14) Blood Urea Nitrogen 12 mg/dL (7-20) Creatinine 1.8 mg/dL (0.6-1.0) Estimated GFR (Cockcroft-Gault) 34.8 BUN/Creatinine Ratio 7 (6-20) Glucose Level 89 mg/dL (70-99) Lactic Acid Level 1.1 mmol/L (0.4-2.0) Calcium Level 8.3 mg/dL (8.5-10.1) Magnesium Level 2.4 mg/dL (1.8-2.4) Total Bilirubin 0.2 mg/dL (0.2-1.0) Aspartate Amino Transf (AST/SGOT) 108 U/L (15-37) Alanine Aminotransferase (ALT/SGPT) 35 U/L (14-59) Alkaline Phosphatase 146 U/L (46-116) Troponin I Quantitative 1.024 ng/mL (0.000-0.055) IC-Xdk-N-Type Natriuretic Peptide 1867 pg/mL (0-124) Total Protein 7.6 g/dL (6.4-8.2) Albumin 3.0 g/dL (3.4-5.0) Albumin/Globulin Ratio 0.7 (1.0-1.7) O2 Saturation 97 % (92-99) Arterial Blood pH 7.24 (7.35-7.45) Arterial Blood pCO2 at Patient Temp 82 mmHg (35-46) Arterial Blood pO2 at Patient Temp 104 mmHg (65-108) Arterial Blood HCO3 34 mmol/L (21-28) Arterial Blood Base Excess 5 mmol/L (-3-3) FiO2 36 Influenza Type A Antigen Negative (NEGATIVE) Influenza Type B Antigen Negative (NEGATIVE) Test 10/30/20 06:29 10/30/20 08:45 10/30/20 09:25 O2 Saturation 94 % (92-99) 95 % (92-99) Arterial Blood pH 7.23 (7.35-7.45) 7.41 (7.35-7.45) Arterial Blood pCO2 at Patient Temp 81 mmHg (35-46) 49 mmHg (35-46) Arterial Blood pO2 at Patient Temp 90 mmHg (65-108) 75 mmHg (65-108) Arterial Blood HCO3 33 mmol/L (21-28) 30 mmol/L (21-28) Arterial Blood Base Excess 4 mmol/L (-3-3) 5 mmol/L (-3-3) FiO2 40 40% vent Troponin I Quantitative 1.101 ng/mL (0.000-0.055) Medications Active Scripts Medications Dose Route/Sig Max Daily Dose Days Date Category Dose Instructions Lomotil Tablet (Diphenoxylate Hcl/Atropine) 1 Each Tablet 1 Tab PO TID 3 10/28/20 Rx Dicyclomine Hcl 20 Mg Tablet 1 Tab PO TID 10 10/28/20 Rx Zithromax (Azithromycin) 250 Mg Tablet 250 Mg PO DIRECTED 10/28/20 Rx Take 2 PO x 1 days Then take 1 PO q 24 hour for the next 4 days Doxycycline Hyclate 100 Mg Tablet 1 Tab PO BID 3 12/04/19 Rx Culturelle (Lactobacillus Rhamnosus Gg) 1 Each Cap.sprink 1 Cap PO BID 14 12/04/19 Rx Zofran (Ondansetron Hcl) 4 Mg Tablet 4 Mg PO Q8HRS PRN 12/02/19 Reported Tramadol Hcl 50 Mg Tablet 50 Mg PO Q6HRS PRN 12/02/19 Reported Tears Again (Polyvinyl Alcohol) 15 Ml Drops 2 Drop EACHEYE Q4HRS 30 12/02/19 Reported Polyvinyl Alcohol 15 Ml Drops 2 Drop EACHEYE Q4HRS 30 12/02/19 Reported Ropinirole Hcl 1 Mg Tablet 1 Mg PO BID 12/02/19 Reported Pantoprazole Sodium (Pantoprazole Sodium) 40 Mg Tablet.dr 40 Mg PO DAILYAC 12/02/19 Reported B-Complex Plus Vitamin C (B Complex With Vitamin C) 1 Each Tablet 1 Each PO DAILY 12/02/19 Reported Magnesium Oxide 400 Mg Tablet 400 Mg PO DAILY 12/02/19 Reported Loratadine 10 Mg Tablet 10 Mg PO DAILY 12/02/19 Reported Ketotifen Fumarate 5 Ml Drops 1 Drop EACHEYE BID 12/02/19 Reported Humalog (Insulin Lispro) 100 Unit/1 Ml Vial 100 Unit SQ BIDWMEALS 12/02/19 Reported 70 - 150 0 units 151 - 200 0 units 201 - 250 2 units 251 - 300 3 units 301 - 349 4 units if FSBS is under 70 or 350 and over call MD [guaifenesin Syrup] 10 Ml PO Q4HRS PRN 12/02/19 Reported Mucinex (Guaifenesin) 600 Mg Tablet.er 600 Mg PO BID 12/02/19 Reported Coreg (Carvedilol) 25 Mg Tablet 50 Mg PO BIDWMEALS 12/02/19 Reported Peridex (Chlorhexidine Gluconate) 15 Ml Mouthwash 15 Ml PO BID 30 12/02/19 Reported Swish in mouth for 30 seconds then spit out Calcium Carbonate 500 Mg Tablet 500 Mg PO Q4HRS 12/02/19 Reported Atorvastatin Calcium 10 Mg Tablet 10 Mg PO HS 12/02/19 Reported Acetaminophen 325 Mg Tablet 650 Mg PO Q6HRS 12/02/19 Reported Metformin Hcl 500 Mg Tablet 250 Mg PO BIDWMEALS 12/03/18 Reported Imodium A-D (Loperamide HCl) 2 Mg Capsule 2 Mg PO DAILY PRN 12/03/18 Reported Risperidone 0.5 Mg Tablet 0.5 Mg PO DAILY 03/21/18 Reported Risperidone 1 Mg Tablet 1 Tab PO QHS 03/21/18 Reported Levothyroxine Sodium 112 Mcg Tablet 1 Tab PO DAILY 03/21/18 Reported Advair 500-50 Diskus (Fluticasone/Salmeterol) 1 Each Disk.w.dev 1 Puff IH BID 03/21/18 Reported Nystatin 15 Gm Powder 1 Scott TP PRN BID PRN 03/21/18 Reported Clonazepam (Clonazepam) 0.5 Mg Tablet 1 Tab PO BID 09/30/16 Reported Montelukast Sodium Tablet (Montelukast Sodium) 10 Mg Tablet 1 Tab PO HS 02/18/16 Reported Gas-X (Simethicone) 80 Mg Tab.chew 160 Mg PO Q2HR PRN 02/18/16 Reported Gabapentin (Gabapentin) 100 Mg Capsule 100 Mg PO TID 02/18/16 Reported Impression . Full consult dictated Acute hypoxemic hypercapnic respiratory failure Possible sepsis Acute on chronic heart failure Rule out COVID-19 See orders MIGUEL NOE MD Oct 30, 2020 11:01
[2020-10-30] MEDS ORDERED: VANCOMYCIN 1.75 GM in IV NORMAL SALINE 500ML BAG 500 ML IV ONE (11:30)
[2020-10-30] MEDS: PIPERACILLIN/TAZOBACTAM 4.5 GM in IV NORMAL SALINE 100ML 100 ML IV SCH ×3 (11:38→23:41)
--- NOTE | 2020-10-30 11:48 | CONS ---
DATE OF CONSULTATION: 10/30/2020 ATTENDING PHYSICIAN: Denisse Fernandes DO REASON FOR CONSULTATION: The patient is seen in Pulmonary consultation at the request of Dr. Fernandes for acute on chronic hypercapnic hypoxemic respiratory failure, seen in the Emergency Department. HISTORY OF PRESENT ILLNESS: The patient is a 60-year-old who presented from halfway due to altered mental status. She was recently evaluated on 10/28/2020 after being found on the floor, in the halfway. She had a CT head, which was normal and was discharged back to the halfway. She now presents with increasing respiratory distress and mental status change. Initial arterial blood gas revealed a pH of 7.24, PaCO2 of 82, paO2 of 104. The patient was tried on BiPAP, failed BiPAP, her pH remained at 7.23 with a PaCO2 of 81. She is now ventilated with mechanical ventilation. Last arterial blood gas revealed a pH of 7.41, PaCO2 of 49, PaO2 of 75. I saw her in the Emergency Department. At that time, she was sedated and intubated. PAST MEDICAL HISTORY: Remarkable for chronic atrial fibrillation, anxiety, COPD, chronic heart failure, type 2 diabetes, hypothyroidism, schizophrenia, restless legs. PAST SURGICAL HISTORY: Previous pacemaker defibrillator. SOCIAL HISTORY: She is a former smoker. REVIEW OF SYSTEMS: Unobtainable secondary to the patient's condition. CURRENT MEDICATIONS: List was reviewed in the Emergency Department, the patient had been given some IV antibiotics. She had been started on Zosyn. ALLERGIES: LISTED TO LACTULOSE AND LISINOPRIL. PHYSICAL EXAMINATION: VITAL SIGNS: Stable. O2 saturation was greater than 92%. She did have a T-max of 102.9. HEENT: Eyes: The sclerae were nonicteric. NECK: Jugular venous distention was elevated. No lymphadenopathy. CHEST: Full expansion. LUNGS: Scattered rhonchi, no wheezes. CARDIOVASCULAR: Regular rate and rhythm with S1, S2, no S3. ABDOMEN: Soft, nontender. EXTREMITIES: No clubbing, cyanosis. Minimal edema. NEUROLOGICAL: The patient was sedated. LABORATORY DATA: Reviewed. White count was normal. Hemoglobin and hematocrit were noted. Electrolytes were noted. BUN was 12, creatinine was 1.8. Arterial blood gases indicated above. Urine drug screen was negative. UA was noted. Serology for influenza was negative. Serology for SARS-CoV-2 is pending. Chest x-ray revealed mild interstitial ground glass opacities throughout both lung aden. IMPRESSION: 1. Acute on chronic hypoxemic hypercapnic respiratory failure. 2. Abnormal x-ray compatible with acute on chronic congestive heart failure, possibly COVID-19. 3. Abnormal x-ray. 4. COVID-19 person of suspect. 5. Acute metabolic toxic encephalopathy. 6. History of status post pacemaker defibrillator implantation. 7. Restless legs syndrome. 8. Schizoaffective disorder. 9. Acute on chronic systolic heart failure. 9. Non-ST segment elevation myocardial infarction. 10. Cardiomyopathy, ejection fraction on 11/2019 revealed EF of 45%. 11. Atrial fibrillation with V paced, currently underlying sinus rhythm. 12. Hyperlipidemia. 13. Hypothyroidism. 14. Fever, rule out bacteremia. 15. Sepsis. PLAN: 1. Recommend continuing empiric antibiotics. 2. Rule out SARS COVID-19. 3. Diurese IV Lasix x 1. 4. Consult Cardiology, already performed. 5. Follow clinical course and make adjustments on minute ventilation. 6. DVT and GI prophylaxis. 7. Blood cultures x 2. I do appreciate the privilege in sharing in the patient's care. Total cumulative critical care time from 10:00 a.m. to 10:58 a.m. MIGUEL NOE MD DR: RAVI/natalia JOB#: [id number] / [id number]
[2020-10-30] MEDS ORDERED: ASPIRIN CHEWABLE 81 MG TABLET. PO ONE (15:15)
[2020-10-30 15:36] LABS: PROTHROMBIN TIME PATIENT 13.3 SEC (11.7-14.0)
--- NOTE | 2020-10-30 16:15 | NUR ---
Rec'd from ER per cart. Placed on Vent. Ettube secured. Mitts on, VSS. Hutchins to DD. SR/Paced. IV x 3 patent, Sedated on Propofol IV. No family here. Covid pending placed in isolation. Skin warm dry Will cont adm process From [facility]. Phoned them for med list to be faxed
[2020-10-30] MEDS: VANCOMYCIN PER PHARMACY MC PRN (16:21)
--- NOTE | 2020-10-30 16:21 | NUR ---
Pharmacy Vancomycin Dosing Note S:Consulted to monitor and dose vancomycin started 10/30/20. O:MARCOS CLIFTON is a 60 year old F with Empiric. Height: 5 feet, 5 inches Weight: 113.6 kg [place] Body Weight: 57.00 Adjusted Body Weight: 79.64 Dosing Weight: Actual Other Antibiotics: zosyn LABS: Last BUN: 12 Last Creatinine: 1.8 Creatinine Clearance: 42 mL/min Last WBC: 6.2 Tmax (past 24 hours): 102.9 I/O: 1999 Last dose given 10/30/20 at 1236 Vancomycin Dosing: Loading Dose: 1750 mg x1 Dosing Weight: Actual Target Trough: 10-20 A: Based on: patient's age, weight and renal function. P: 1. Begin Vancomycin 1750 mg IV q24h after initial loading dose. 2. Follow up Trough level on 11/01/20 at 1230. 3. Pharmacy will continue to monitor, follow and adjust therapy as needed. KATIANA [facility], 10/30/20 [id number]
[2020-10-30] MEDS: CARVEDILOL 3.125 MG TABLET. PO SCH (17:00)
[2020-10-30] MEDS: HEPARIN for SUB-Q USE 5,000 UNIT/ML VIAL. SQ SCH (22:15)
[2020-10-31] VITALS (22 sets, daily range): BP systolic 125–181; BP diastolic 62–93
[2020-10-31] MEDS ORDERED: CLON0.2T PO (05:10)
[2020-10-31] MEDS ORDERED: GUAI473L15 PO (05:10)
[2020-10-31] MEDS ORDERED: IPRA3AMP29 NEB (05:10)
[2020-10-31] MEDS ORDERED: IBUP-1027 PO (05:10)
[2020-10-31] MEDS ORDERED: POLY17PO29 PO (05:10)
[2020-10-31] MEDS ORDERED: FOLI0.4T5 PO (05:10)
[2020-10-31] MEDS ORDERED: MULT-121 PO (05:10)
[2020-10-31] MEDS ORDERED: FAMO20TA5 PO (05:10)
[2020-10-31] MEDS ORDERED: PEG15DRO4 OS (05:10)
[2020-10-31] MEDS ORDERED: LORA0.5T96 PO (05:10)
[2020-10-31] MEDS ORDERED: BUPR150T15 PO (05:10)
[2020-10-31] MEDS: PROPOFOL 100 ML IV PRN ×3 (05:49→12:07)
[2020-10-31] MEDS: PIPERACILLIN/TAZOBACTAM 4.5 GM in IV NORMAL SALINE 100ML 100 ML IV SCH ×3 (05:51→17:50)
[2020-10-31] MEDS: HEPARIN for SUB-Q USE 5,000 UNIT/ML VIAL. SQ SCH ×3 (06:00→22:09)
[2020-10-31] MEDS: fentaNYL PF VIAL 100 MCG/2 ML VIAL IVP PRN ×4 (07:38→20:08)
--- NOTE | 2020-10-31 08:21 | PDOC ---
PULMONARY PROGRESS NOTES DATE: 10/31/20 TIME: 08:21 Subjective Pt. remains on vent support 40% and % of peep low grade fever overnight no other concerns from nursing Vitals Vital Signs Date Time Temp Pulse Resp B/P (MAP) Pulse Ox O2 Delivery O2 Flow Rate FiO2 10/31/20 07:38 16 Ventilator 10/31/20 06:00 72 160/74 (102) 100 10/30/20 23:00 98.7 98.7 10/30/20 16:00 40.0 Comments intubated/sedated General: Alert, No acute distress HEENT: Other Lungs: Clear Cardiovascular: S1, S2 Abdomen: Soft, Non-tender Extremities: Other Labs Laboratory Tests Test 10/30/20 03:35 10/30/20 03:45 10/30/20 04:45 10/30/20 04:49 Urine Collection Type U cath Urine Color Yellow Urine Clarity Clear Urine pH 6.0 (<5.0-8.0) Urine Specific [place] 1.020 (1.000-1.030) Urine Protein 30 mg/dL (NEG-TRACE) Urine Glucose (UA) Negative mg/dL (NEG) Urine Ketones (Stick) Negative mg/dL (NEG) Urine Blood Negative (NEG) Urine Nitrite Positive (NEG) Urine Bilirubin Negative (NEG) Urine Urobilinogen Dipstick 0.2 mg/dL (0.2 mg/dL) Urine Leukocyte Esterase Small (NEG) Urine RBC Rare /HPF (0-2) Urine WBC 5-10 /HPF (0-4) Urine Squamous Epithelial Cells Occ /LPF Urine Amorphous Sediment Present /HPF Urine Bacteria Moderate /HPF (0-FEW) Urine Hyaline Casts Many /HPF Urine Granular Casts Occasional /HPF Urine Mucus Marked /LPF Urine Opiates Screen Neg (NEG) Urine Methadone Screen Neg (NEG) Urine Barbiturates Neg (NEG) Urine Phencyclidine Screen Neg (NEG) Urine Amphetamine/Methamphetamine Neg (NEG) Urine Benzodiazepines Screen Neg (NEG) Urine Cocaine Screen Neg (NEG) Urine Cannabinoids Screen Neg (NEG) Urine Ethyl Alcohol Neg (NEG) White Blood Count 6.2 x10^3/uL (4.0-11.0) Red Blood Count 3.31 x10^6/uL (3.50-5.40) Hemoglobin 10.0 g/dL (12.0-15.5) Hematocrit 31.0 % (36.0-47.0) Mean Corpuscular Volume 93 fL (79-100) Mean Corpuscular Hemoglobin 30 pg (25-35) Mean Corpuscular Hemoglobin Concent 32 g/dL (31-37) Red Cell Distribution Width 16.1 % (11.5-14.5) Platelet Count 137 x10^3/uL (140-400) Neutrophils (%) (Auto) 72 % (31-73) Lymphocytes (%) (Auto) 18 % (24-48) Monocytes (%) (Auto) 10 % (0-9) Eosinophils (%) (Auto) 0 % (0-3) Basophils (%) (Auto) 0 % (0-3) Neutrophils # (Auto) 4.4 x10^3/uL (1.8-7.7) Lymphocytes # (Auto) 1.1 x10^3/uL (1.0-4.8) Monocytes # (Auto) 0.6 x10^3/uL (0.0-1.1) Eosinophils # (Auto) 0.0 x10^3/uL (0.0-0.7) Basophils # (Auto) 0.0 x10^3/uL (0.0-0.2) Prothrombin Time 13.3 SEC (11.7-14.0) Prothromb Time International Ratio 1.1 (0.8-1.1) Sodium Level 140 mmol/L (136-145) Potassium Level 4.7 mmol/L (3.5-5.1) Chloride Level 101 mmol/L (98-107) Carbon Dioxide Level 37 mmol/L (21-32) Anion Gap 2 (6-14) Blood Urea Nitrogen 12 mg/dL (7-20) Creatinine 1.8 mg/dL (0.6-1.0) Estimated GFR (Cockcroft-Gault) 34.8 BUN/Creatinine Ratio 7 (6-20) Glucose Level 89 mg/dL (70-99) Lactic Acid Level 1.1 mmol/L (0.4-2.0) Calcium Level 8.3 mg/dL (8.5-10.1) Magnesium Level 2.4 mg/dL (1.8-2.4) Total Bilirubin 0.2 mg/dL (0.2-1.0) Aspartate Amino Transf (AST/SGOT) 108 U/L (15-37) Alanine Aminotransferase (ALT/SGPT) 35 U/L (14-59) Alkaline Phosphatase 146 U/L (46-116) Troponin I Quantitative 1.024 ng/mL (0.000-0.055) DZ-Hop-Q-Type Natriuretic Peptide 1867 pg/mL (0-124) Total Protein 7.6 g/dL (6.4-8.2) Albumin 3.0 g/dL (3.4-5.0) Albumin/Globulin Ratio 0.7 (1.0-1.7) O2 Saturation 97 % (92-99) Arterial Blood pH 7.24 (7.35-7.45) Arterial Blood pCO2 at Patient Temp 82 mmHg (35-46) Arterial Blood pO2 at Patient Temp 104 mmHg (65-108) Arterial Blood HCO3 34 mmol/L (21-28) Arterial Blood Base Excess 5 mmol/L (-3-3) FiO2 36 Influenza Type A Antigen Negative (NEGATIVE) Influenza Type B Antigen Negative (NEGATIVE) Test 10/30/20 06:29 10/30/20 08:45 10/30/20 09:25 10/30/20 11:29 O2 Saturation 94 % (92-99) 95 % (92-99) Arterial Blood pH 7.23 (7.35-7.45) 7.41 (7.35-7.45) Arterial Blood pCO2 at Patient Temp 81 mmHg (35-46) 49 mmHg (35-46) Arterial Blood pO2 at Patient Temp 90 mmHg (65-108) 75 mmHg (65-108) Arterial Blood HCO3 33 mmol/L (21-28) 30 mmol/L (21-28) Arterial Blood Base Excess 4 mmol/L (-3-3) 5 mmol/L (-3-3) FiO2 40 40% vent Troponin I Quantitative 1.101 ng/mL (0.000-0.055) Nasal Screen MRSA (PCR) Negative (NEGATIVE) Test 10/30/20 12:56 Troponin I Quantitative 0.892 ng/mL (0.000-0.055) Laboratory Tests Test 10/30/20 08:45 10/30/20 09:25 10/30/20 11:29 10/30/20 12:56 O2 Saturation 95 % (92-99) Arterial Blood pH 7.41 (7.35-7.45) Arterial Blood pCO2 at Patient Temp 49 mmHg (35-46) Arterial Blood pO2 at Patient Temp 75 mmHg (65-108) Arterial Blood HCO3 30 mmol/L (21-28) Arterial Blood Base Excess 5 mmol/L (-3-3) FiO2 40% vent Troponin I Quantitative 1.101 ng/mL (0.000-0.055) 0.892 ng/mL (0.000-0.055) Nasal Screen MRSA (PCR) Negative (NEGATIVE) Medications Active Scripts Medications Dose Route/Sig Max Daily Dose Days Date Category Dose Instructions Lomotil Tablet (Diphenoxylate Hcl/Atropine) 1 Each Tablet 1 Tab PO TID 3 10/28/20 Rx Dicyclomine Hcl 20 Mg Tablet 1 Tab PO TID 10 10/28/20 Rx Zithromax (Azithromycin) 250 Mg Tablet 250 Mg PO DIRECTED 10/28/20 Rx Take 2 PO x 1 days Then take 1 PO q 24 hour for the next 4 days Doxycycline Hyclate 100 Mg Tablet 1 Tab PO BID 3 12/04/19 Rx Culturelle (Lactobacillus Rhamnosus Gg) 1 Each Cap.sprink 1 Cap PO BID 14 12/04/19 Rx Zofran (Ondansetron Hcl) 4 Mg Tablet 4 Mg PO Q8HRS PRN 12/02/19 Reported Tramadol Hcl 50 Mg Tablet 50 Mg PO Q6HRS PRN 12/02/19 Reported Tears Again (Polyvinyl Alcohol) 15 Ml Drops 2 Drop EACHEYE Q4HRS 30 12/02/19 Reported Polyvinyl Alcohol 15 Ml Drops 2 Drop EACHEYE Q4HRS 30 12/02/19 Reported Ropinirole Hcl 1 Mg Tablet 1 Mg PO BID 12/02/19 Reported Pantoprazole Sodium (Pantoprazole Sodium) 40 Mg Tablet.dr 40 Mg PO DAILYAC 12/02/19 Reported B-Complex Plus Vitamin C (B Complex With Vitamin C) 1 Each Tablet 1 Each PO DAILY 12/02/19 Reported Magnesium Oxide 400 Mg Tablet 400 Mg PO DAILY 12/02/19 Reported Loratadine 10 Mg Tablet 10 Mg PO DAILY 12/02/19 Reported Ketotifen Fumarate 5 Ml Drops 1 Drop EACHEYE BID 12/02/19 Reported Humalog (Insulin Lispro) 100 Unit/1 Ml Vial 100 Unit SQ BIDWMEALS 12/02/19 Reported 70 - 150 0 units 151 - 200 0 units 201 - 250 2 units 251 - 300 3 units 301 - 349 4 units if FSBS is under 70 or 350 and over call MD [guaifenesin Syrup] 10 Ml PO Q4HRS PRN 12/02/19 Reported Mucinex (Guaifenesin) 600 Mg Tablet.er 600 Mg PO BID 12/02/19 Reported Coreg (Carvedilol) 25 Mg Tablet 50 Mg PO BIDWMEALS 12/02/19 Reported Peridex (Chlorhexidine Gluconate) 15 Ml Mouthwash 15 Ml PO BID 30 12/02/19 Reported Swish in mouth for 30 seconds then spit out Calcium Carbonate 500 Mg Tablet 500 Mg PO Q4HRS 12/02/19 Reported Atorvastatin Calcium 10 Mg Tablet 10 Mg PO HS 12/02/19 Reported Acetaminophen 325 Mg Tablet 650 Mg PO Q6HRS 12/02/19 Reported Metformin Hcl 500 Mg Tablet 250 Mg PO BIDWMEALS 12/03/18 Reported Imodium A-D (Loperamide HCl) 2 Mg Capsule 2 Mg PO DAILY PRN 12/03/18 Reported Risperidone 0.5 Mg Tablet 0.5 Mg PO DAILY 03/21/18 Reported Risperidone 1 Mg Tablet 1 Tab PO QHS 03/21/18 Reported Levothyroxine Sodium 112 Mcg Tablet 1 Tab PO DAILY 03/21/18 Reported Advair 500-50 Diskus (Fluticasone/Salmeterol) 1 Each Disk.w.dev 1 Puff IH BID 03/21/18 Reported Nystatin 15 Gm Powder 1 Scott TP PRN BID PRN 03/21/18 Reported Clonazepam (Clonazepam) 0.5 Mg Tablet 1 Tab PO BID 09/30/16 Reported Montelukast Sodium Tablet (Montelukast Sodium) 10 Mg Tablet 1 Tab PO HS 02/18/16 Reported Gas-X (Simethicone) 80 Mg Tab.chew 160 Mg PO Q2HR PRN 02/18/16 Reported Gabapentin (Gabapentin) 100 Mg Capsule 100 Mg PO TID 02/18/16 Reported Comments CXR Impression: No significant change in left basilar aeration. No new infiltrates. Impression . IMPRESSION: 1. Acute on chronic hypoxemic hypercapnic respiratory failure. 2. Abnormal x-ray compatible with acute on chronic congestive heart failure, possibly COVID-19. 3. Abnormal x-ray. 4. COVID-19 person of suspect. 5. Acute metabolic toxic encephalopathy. 6. History of status post pacemaker defibrillator implantation. 7. Restless legs syndrome. 8. Schizoaffective disorder. 9. Acute on chronic systolic heart failure. 9. Non-ST segment elevation myocardial infarction. 10. Cardiomyopathy, ejection fraction on 11/2019 revealed EF of 45%. 11. Atrial fibrillation with V paced, currently underlying sinus rhythm. 12. Hyperlipidemia. 13. Hypothyroidism. 14. Fever, rule out bacteremia. 15. Sepsis. Plan . PLAN: Continue current vent support 40% and peep of 5, Plan for sdation vacation and CPAP trial if ABG adequate proceed with extubation Follow CXR/ABG Continue ABX: currently on DOXY and zosyn Follow cardiology recs Continue Filomena PT/OT [employer] for tube feeding recs DVT/GI PPX D/W RN and RT Critical Care time [id number] MIGUEL NOE MD Oct 31, 2020 08:21
[2020-10-31 08:34] LABS: BASE EXCESS ABG 2 mmol/L (-3-3); HCO3 ABG 26 mmol/L (21-28); PCO2 ABG 35 mmHg (35-46); PO2 ABG 112 mmHg (65-108); SAT O2 ABG 98 % (92-99)
[2020-10-31 09:05] LABS: FIO2 ABG 40%+5
[2020-10-31 09:18] LABS: CALCIUM 7.2 mg/dL (8.5-10.1); CREATININE 1.4 mg/dL (0.6-1.0); GFR 46.6; POTASSIUM 3.2 mmol/L (3.5-5.1)
--- NOTE | 2020-10-31 09:26 | RAD ---
Examination: XR CHEST 1V History: vent/resp. fail Comparison/Correlation: 10/30/2020 Findings: Portable upright frontal view chest was obtained. Tracheal tube again seen. Left-sided ICD noted. Enteric tube again seen. Heart size is within normal limits. Elevation of the left hemidiaphragm is present. Opacification of the left lung base is noted. Small left pleural effusion again seen. No pneumothorax. Impression: No significant change in left basilar aeration. No new infiltrates. Electronically signed by: Rajiv Fry MD (10/31/2020 9:23 AM) [id number]
[2020-10-31] MEDS: CARVEDILOL 3.125 MG TABLET. PO SCH (09:27)
[2020-10-31] MEDS: ASPIRIN CHEWABLE 81 MG TABLET. PO SCH (09:28)
[2020-10-31 09:39] LABS: CHOLESTEROL/HDL RATIO 5.7
[2020-10-31] MEDS ORDERED: POTASSIUM BICARB 20 MEQ EFFERVESCENT TABLET. PO ONE (09:45)
[2020-10-31] MEDS: VANCOMYCIN PER PHARMACY MC PRN (09:51)
--- NOTE | 2020-10-31 11:04 | PDOC ---
[employer] PROGRESS NOTE Date of Service DOS: DATE: 10/31/20 TIME: 10:57 Chief Complaint Chief Complaint Acute hypoxemic hypercapnic respiratory failure Possible sepsis Acute on chronic heart failure Blood cultures positive COVID-19 PUI Heart failure PMH [place] AICD in UTI Hypocalcemia Hypertriglyceridemia Hypokalemia Anemia Hypoglycemia Elevated Cr History of Present Illness History of Present Illness 10/31 Patient seen and examined in ICU Patient sedated with propofol Possible COVID - pending under investigation Discussed with RN Chart reviewed Blood culture positive Vent settings as follows AC/18/450/40 Vitals/I&O Vitals/I&O: Vital Signs Date Time Temp Pulse Resp B/P (MAP) Pulse Ox O2 Delivery O2 Flow Rate FiO2 10/31/20 10:40 18 Ventilator 10/31/20 09:27 72 160/74 10/31/20 07:55 99 10/30/20 23:00 98.7 98.7 10/30/20 16:00 40.0 I & O 10/30/20 10/30/20 10/31/20 14:59 22:59 06:59 Intake Total 2100 ml 565 ml 844 ml Output Total 1325 ml 455 ml 215 ml Balance 775 ml 110 ml 629 ml Physical Exam General: No acute distress, Other Heart: Regular rate Lungs: Clear Abdomen: Soft, Other Extremities: No edema Skin: No rashes, No breakdown, No significant lesion Labs Labs: Laboratory Tests Test 10/30/20 11:29 10/30/20 12:56 10/31/20 07:55 10/31/20 08:00 Nasal Screen MRSA (PCR) Negative (NEGATIVE) Troponin I Quantitative 0.892 ng/mL (0.000-0.055) White Blood Count 4.0 x10^3/uL (4.0-11.0) Red Blood Count 3.24 x10^6/uL (3.50-5.40) Hemoglobin 9.9 g/dL (12.0-15.5) Hematocrit 29.9 % (36.0-47.0) Mean Corpuscular Volume 92 fL (79-100) Mean Corpuscular Hemoglobin 30 pg (25-35) Mean Corpuscular Hemoglobin Concent 33 g/dL (31-37) Red Cell Distribution Width 16.6 % (11.5-14.5) Platelet Count 122 x10^3/uL (140-400) Sodium Level 141 mmol/L (136-145) Potassium Level 3.2 mmol/L (3.5-5.1) Chloride Level 102 mmol/L (98-107) Carbon Dioxide Level 28 mmol/L (21-32) Anion Gap 11 (6-14) Blood Urea Nitrogen 11 mg/dL (7-20) Creatinine 1.4 mg/dL (0.6-1.0) Estimated GFR (Cockcroft-Gault) 46.6 Glucose Level 43 mg/dL (70-99) Calcium Level 7.2 mg/dL (8.5-10.1) Triglycerides Level 369 mg/dL (0-150) Cholesterol Level 109 mg/dL (0-200) LDL Cholesterol, Calculated 16 mg/dL (0-100) VLDL Cholesterol, Calculated 74 mg/dL (0-40) Non-HDL Cholesterol Calculated 90 mg/dL (0-129) HDL Cholesterol 19 mg/dL (40-60) Cholesterol/HDL Ratio 5.7 O2 Saturation 98 % (92-99) Arterial Blood pH 7.48 (7.35-7.45) Arterial Blood pCO2 at Patient Temp 35 mmHg (35-46) Arterial Blood pO2 at Patient Temp 112 mmHg (65-108) Arterial Blood HCO3 26 mmol/L (21-28) Arterial Blood Base Excess 2 mmol/L (-3-3) FiO2 40%+5 Assessment and Plan Assessmemt and Plan Problems Medical Problems: (1) AMS (altered mental status) Status: Acute (2) Hypercapnia Status: Acute (3) Person under investigation for COVID-19 Status: Acute (4) Respiratory failure Status: Acute (5) UTI (urinary tract infection) Status: Acute ASSESSMENT Acute hypoxemic hypercapnic respiratory failure Possible sepsis Acute on chronic heart failure Blood cultures positive COVID-19 PUI Heart failure PMH AZ AICD in UTI Hypocalcemia Hypertriglyceridemia Hypokalemia Anemia Hypoglycemia Elevated Cr PLAN Continue ICU monitoring Continue with Vancomycin and Zosyn Trial of Lasix Continue with propofol Full code Continue home meds DVT prophylaxis Comment Review of Relevant I have reviewed the following items lucas (where applicable) has been applied. Medications: Current Medications Medications (Trade) Dose Ordered Sig/Eber Route PRN Reason Start Time Stop Time Status Last Admin Dose Admin Piperacillin Sod/ Tazobactam Sod 4.5 gm/Sodium Chloride 100 ml @ 200 mls/hr Q6HRS IV 10/30/20 12:00 10/31/20 05:51 Vancomycin HCl (Vanco Per Pharmacy) 1 each PRN DAILY PRN [facility] SEE COMMENTS 10/30/20 11:00 10/31/20 09:51 Vancomycin HCl 1.75 gm/Sodium Chloride 500 ml @ 250 mls/hr ONCE ONCE IV 10/30/20 11:30 10/30/20 13:29 DC 10/30/20 12:36 Aspirin (Aspirin Chewable) 81 mg DAILYWBKFT PO 10/31/20 08:00 10/31/20 09:28 Heparin Sodium (Porcine) (Heparin Sodium) 5,000 unit Q8HRS SQ 10/30/20 22:00 10/31/20 06:00 Carvedilol (Coreg) 3.125 mg BIDWMEALS PO 10/30/20 17:00 10/31/20 09:27 Fentanyl Citrate (Fentanyl 2ml Vial) 50 mcg PRN Q2HR PRN IVP PAIN 10/31/20 07:45 10/31/20 10:40 Justifications for Admission Other Justification SHAHNAZ SANTOS III DO Oct 31, 2020 11:04
--- NOTE | 2020-10-31 11:06 | PDOC ---
Infectious Disease Note Vital Sign Vital Signs Vital Signs Date Time Temp Pulse Resp B/P (MAP) Pulse Ox O2 Delivery O2 Flow Rate FiO2 10/31/20 10:40 18 Ventilator 10/31/20 09:27 72 160/74 10/31/20 07:55 99 10/30/20 23:00 98.7 98.7 10/30/20 16:00 40.0 Labs Lab Laboratory Tests Test 10/30/20 11:29 10/30/20 12:56 10/31/20 07:55 10/31/20 08:00 Nasal Screen MRSA (PCR) Negative (NEGATIVE) Troponin I Quantitative 0.892 ng/mL (0.000-0.055) White Blood Count 4.0 x10^3/uL (4.0-11.0) Red Blood Count 3.24 x10^6/uL (3.50-5.40) Hemoglobin 9.9 g/dL (12.0-15.5) Hematocrit 29.9 % (36.0-47.0) Mean Corpuscular Volume 92 fL (79-100) Mean Corpuscular Hemoglobin 30 pg (25-35) Mean Corpuscular Hemoglobin Concent 33 g/dL (31-37) Red Cell Distribution Width 16.6 % (11.5-14.5) Platelet Count 122 x10^3/uL (140-400) Sodium Level 141 mmol/L (136-145) Potassium Level 3.2 mmol/L (3.5-5.1) Chloride Level 102 mmol/L (98-107) Carbon Dioxide Level 28 mmol/L (21-32) Anion Gap 11 (6-14) Blood Urea Nitrogen 11 mg/dL (7-20) Creatinine 1.4 mg/dL (0.6-1.0) Estimated GFR (Cockcroft-Gault) 46.6 Glucose Level 43 mg/dL (70-99) Calcium Level 7.2 mg/dL (8.5-10.1) Triglycerides Level 369 mg/dL (0-150) Cholesterol Level 109 mg/dL (0-200) LDL Cholesterol, Calculated 16 mg/dL (0-100) VLDL Cholesterol, Calculated 74 mg/dL (0-40) Non-HDL Cholesterol Calculated 90 mg/dL (0-129) HDL Cholesterol 19 mg/dL (40-60) Cholesterol/HDL Ratio 5.7 O2 Saturation 98 % (92-99) Arterial Blood pH 7.48 (7.35-7.45) Arterial Blood pCO2 at Patient Temp 35 mmHg (35-46) Arterial Blood pO2 at Patient Temp 112 mmHg (65-108) Arterial Blood HCO3 26 mmol/L (21-28) Arterial Blood Base Excess 2 mmol/L (-3-3) FiO2 40%+5 Micro Microbiology 10/30/20 Blood Culture - Final, Complete 10/30/20 Urine Culture - Preliminary, Resulted Objective Assessment pt seen, consult dictated Plan Plan of Care / JUNITO AMOS MD Oct 31, 2020 11:06
[2020-10-31] MEDS ORDERED: LOPERAMIDE 2 MG CAPSULE PO PRN (11:15)
[2020-10-31] MEDS ORDERED: SIMETHICONE 80 MG TAB.CHEW PO PRN ×2 (11:15→12:00)
[2020-10-31] MEDS ORDERED: IBUPROFEN 400 MG TABLET. PO PRN (11:15)
[2020-10-31] MEDS ORDERED: NYSTATIN TOPICAL POWDER 15GM BOTTLE. TP PRN (11:15)
[2020-10-31] MEDS ORDERED: traMADol 50 MG TABLET PO PRN (11:15)
[2020-10-31] MEDS ORDERED: LORazepam 0.5 MG TABLET PO PRN (11:15)
[2020-10-31 11:45] LABS: BASO % 1 % (0-3); EOS # 0.1 x10^3/uL (0.0-0.7); EOS % 3 % (0-3); HEMATOCRIT 29.8 % (36.0-47.0); HEMOGLOBIN 9.9 g/dL (12.0-15.5); LYMPH # 0.7 x10^3/uL (1.0-4.8); LYMPH % 19 % (24-48); MEAN CORPUSCULAR HEMOGLOBIN 31 pg (25-35); MEAN CORPUSCULAR HGB CONC 33 g/dL (31-37); MEAN CORPUSCULAR VOLUME 93 fL (79-100); MONO # 0.3 x10^3/uL (0.0-1.1); MONO % 8 % (0-9); NEUT # 2.7 x10^3/uL (1.8-7.7); NEUT % 69 % (31-73); PLATELET COUNT 124 x10^3/uL (140-400); RED CELL DISTRIBUTION WIDTH 16.7 % (11.5-14.5); WHITE BLOOD COUNT 3.9 x10^3/uL (4.0-11.0)
--- NOTE | 2020-10-31 11:51 | PDOC ---
MATY ROJAS [employer] 10/31/20 1151: CARDIO Progress Notes Date and Time Date of Service 10/31/20 Time of Evaluation 1110 Subjective Subjective: Other (intubated ) Vitals Vitals Vital Signs Date Time Temp Pulse Resp B/P (MAP) Pulse Ox O2 Delivery O2 Flow Rate FiO2 10/31/20 10:40 18 Ventilator 10/31/20 09:27 72 160/74 10/31/20 07:55 99 10/30/20 23:00 98.7 98.7 10/30/20 16:00 40.0 Weight Weight [ ] Input and Output Intake and Output Intake and Output 10/31/20 07:00 Intake Total 3509 ml Output Total 1995 ml Balance 1514 ml Intake IV Total 2665 ml Blood Product IV Normal Saline Flush 844 ml Output Urine Total 1895 ml Gastric Drainage Total 100 ml # Bowel Movements 102 Laboratory Labs Laboratory Tests Test 10/30/20 12:56 10/31/20 07:55 10/31/20 08:00 Troponin I Quantitative 0.892 ng/mL (0.000-0.055) Sodium Level 141 mmol/L (136-145) Potassium Level 3.2 mmol/L (3.5-5.1) Chloride Level 102 mmol/L (98-107) Carbon Dioxide Level 28 mmol/L (21-32) Anion Gap 11 (6-14) Blood Urea Nitrogen 11 mg/dL (7-20) Creatinine 1.4 mg/dL (0.6-1.0) Estimated GFR (Cockcroft-Gault) 46.6 Glucose Level 43 mg/dL (70-99) Calcium Level 7.2 mg/dL (8.5-10.1) Triglycerides Level 369 mg/dL (0-150) Cholesterol Level 109 mg/dL (0-200) LDL Cholesterol, Calculated 16 mg/dL (0-100) VLDL Cholesterol, Calculated 74 mg/dL (0-40) Non-HDL Cholesterol Calculated 90 mg/dL (0-129) HDL Cholesterol 19 mg/dL (40-60) Cholesterol/HDL Ratio 5.7 O2 Saturation 98 % (92-99) Arterial Blood pH 7.48 (7.35-7.45) Arterial Blood pCO2 at Patient Temp 35 mmHg (35-46) Arterial Blood pO2 at Patient Temp 112 mmHg (65-108) Arterial Blood HCO3 26 mmol/L (21-28) Arterial Blood Base Excess 2 mmol/L (-3-3) FiO2 40%+5 Microbiology Micro Microbiology 10/30/20 Blood Culture - Final, Complete 10/30/20 Urine Culture - Preliminary, Resulted Physical Exam HEENT: Neck Supple W Full Motion Chest: Symmetric LUNGS: Other (mechanical ventilation ) Heart: RRR (SR) Abdomen: Other (soft ) Extremities: No Edema Neurology: other (sedated ) Assessment Assessment 1. Acute respiratory failure requiting intubation with a/c CHF and possible PNA 2. Acute on chronic systolic CHF; s/p IV diuresis 3. Cardiomypeak trop 1. Most probable type II, demand ischemia 5. AFIB; v-paced with underlying SR 6. Hypertension; mildly elevated 7. Hyperlipidemia; statin 8. Diabetes, II 9. Hypothyroidism; on replacement 10. Encephalopathy 11. Anxiety, depression, schizoaffective disorder. 12. PUI; COVID pending 13. Hypokalemia; replaced Recommendations ASA, statin therapy Increase coreg Echo if COVID negative Additional diuresis PRN Lung optimization as per pulm Plan outpatient ischemic evaluation Supportive care Justicifation of Admission Dx: Justifications for Admission: Justification of Admission Dx: Yes Comments: PUI Acute respiratory failure Acute on chronic CHF RADHA SWAN MD 11/01/20 0544: CARDIO Progress Notes Assessment Assessment Late entry for 10/31/20. Agree with FOOD SAFETY SCIENTIST's assessment and plan. Trop elevation prob demand ischemia Plan ischemic evaluation as outpatient Continue diuresis for ac on chr systolic HF Last [employer] CHIEF-D device check showed normal function We will obtain 2D echo if covid negative MATY ROJAS APRN Oct 31, 2020 11:51 RADHA SWAN MD Nov 01, 2020 05:44
[2020-10-31] MEDS: IPRATRPIUM/ALBUTEROL 0.5/2.5MG 3 ML NEBU. NEB SCH ×3 (12:00→20:00)
[2020-10-31] MEDS: INSULIN LISPRO 300 UNITS/3 ML VIAL. SQ SCH ×2 (12:00→17:00)
[2020-10-31] MEDS ORDERED: CARVEDILOL 12.5 MG TABLET. PO SCH (12:00)
[2020-10-31] MEDS: POLYETHYLENE GLYCOL 3350 17 GM PACKET. PO SCH (12:00)
[2020-10-31] MEDS ORDERED: POLYVINYL ALCOHOL EACHEYE SCH (12:00)
[2020-10-31] MEDS: ACETAMINOPHEN 325 MG TABLET. PO SCH ×3 (12:00→23:46)
[2020-10-31] MEDS ORDERED: ONDANSETRON ODT 4 MG TAB.RAPDIS. PO PRN (12:30)
[2020-10-31] MEDS ORDERED: HYPROMELLOSE OS SCH (13:00)
[2020-10-31] MEDS ORDERED: VANCOMYCIN 1.75 GM in IV NORMAL SALINE 500ML BAG 500 ML IV SCH (13:00)
[2020-10-31] MEDS ORDERED: PEG OS SCH (13:00)
[2020-10-31] MEDS: ALBUTEROL SULFATE 2.5 MG/3 ML NEBU. NEB SCH ×2 (13:00→18:00)
[2020-10-31] MEDS ORDERED: GLYCERIN OS SCH (13:00)
[2020-10-31] MEDS: DOXYCYCLINE HYCLATE 100 MG TABLET PO SCH ×2 (13:04→20:06)
[2020-10-31] MEDS: LACTOBACILLUS RHAMNOSUS GG 1 CAPSULE. PO SCH ×2 (13:04→20:05)
[2020-10-31] MEDS: cloNIDine HCL 0.2 MG TABLET PO SCH ×3 (13:04→20:06)
[2020-10-31] MEDS: VITAMIN B COMPLEX TABLET. PO SCH (13:04)
[2020-10-31] MEDS: buPROPion XL 150 MG TAB.ER.24H. PO SCH (13:04)
[2020-10-31] MEDS: CALCIUM CARBONATE 500 MG TABLET PO SCH ×3 (13:04→20:00)
[2020-10-31] MEDS: MULTIVITAMIN with MINERAL TABLET. PO SCH (13:05)
[2020-10-31] MEDS: GABAPENTIN 100 MG CAPSULE. PO SCH ×2 (13:05→20:07)
[2020-10-31] MEDS: MAGNESIUM OXIDE 400 MG TABLET PO SCH (13:05)
[2020-10-31] MEDS: FOLIC ACID 1 MG TABLET. PO SCH (13:06)
[2020-10-31] MEDS: clonazePAM 0.5 MG TABLET PO SCH ×2 (13:07→20:05)
--- NOTE | 2020-10-31 13:10 | NUR ---
SS following up with discharge planning. SS reviewed pt chart and discussed with pt RN. Pt is LTC resident from [facility], ; fax [phone]. COVID19 test pending. Jorge reported that pt is tested bi-weekly at facility with a rapid test. Pt was last tested on 10/28/2020 and was negative. Pt is currently on the vent at 40%. Pt on IV Zosyn. Per RN, possible extubation soon in next 24 hours. SS will continue to follow for discharge planning.
[2020-10-31] MEDS: DICYCLOMINE HCL 10 MG CAPSULE PO SCH ×2 (14:00→21:00)
[2020-10-31] MEDS: DIPHENOXYLATE/ATROPINE TABLET. PO SCH ×2 (14:00→20:05)
--- NOTE | 2020-10-31 15:16 | CONS ---
DATE OF CONSULTATION: 10/31/2020 REQUESTING PHYSICIAN: Denisse Fernandes DO. REASON FOR CONSULTATION: Blood culture positive, UTI. HISTORY OF PRESENT ILLNESS: This is a 60-year-old female from [facility]. The patient was brought in because of altered mental status. The patient was found on the floor. The patient was hypoxic and has congestive heart failure. The patient was on BiPAP and she could not maintain as she was intubated. Currently, the patient is orally intubated, on a ventilator. The patient's COVID test is pending. Blood culture 1/4 gram-positive cocci in clusters. Urine was abnormal and urine culture is positive with gram-negative mary 100,000 colony forming units. The patient has had low-grade fever when she came in 102.9 and the white count has been normal. The patient is currently receiving Zosyn and vancomycin. No nausea, vomiting or diarrhea noted as per the RN. PAST MEDICAL HISTORY: Positive for schizoaffective disorder, peripheral neuropathy, congestive heart failure. The patient has a pacemaker in place/defibrillator, hyperlipidemia, atrial fibrillation, hypertension, COPD, asthma, obesity, depression and anxiety. SOCIAL HISTORY: The patient is a [facility] resident. REVIEW OF SYSTEMS: As per HPI through the patient's RN. The patient is not able to provide any information. CURRENT MEDICATIONS: Reviewed. PHYSICAL EXAMINATION: GENERAL: Sedated, orally intubated female, not in any distress. VITAL SIGNS: Stable. Temperature 98.7, pulse 69, respirations 18, blood pressure 149/71. HEENT: Both pupils are round and reacting. No conjunctival lesion. No lesion in the mouth. NECK: Supple, no JVP, no lymphadenopathy. LUNGS: Clear. HEART: S1, S2 regular. ABDOMEN: Benign. EXTREMITIES: No edema or cyanosis. SKIN: Unremarkable. NEUROLOGIC: The patient cannot be judged as sedated, on the ventilator. LABORATORY DATA: White count is 4000, hemoglobin 9.9, platelets of 122,000. BUN and creatinine are 11 and 1.4. Troponin up to 1.1. BNP 1867. Urinalysis 5-10 wbc's. MRSA screen negative. Influenza screen negative. Blood culture and urine culture as I mentioned. Chest x-ray is showing bibasilar infiltrate. IMPRESSION: 1. Blood culture positive 1/4 gram-positive cocci, most likely to be contaminant. 2. Urinary tract infection, gram-negative mary. 3. Respiratory failure. 4. Pulmonary infiltrate, probably congestive heart failure, although respiratory infection cannot be ruled out since she was encephalopathic, aspiration is possible. 5. Encephalopathy. 6. Schizophrenia. 7. Congestive heart failure. 8. Hypertension. 9. Obesity. 10. COVID pending. RECOMMENDATIONS: We will discontinue vancomycin. Continue Zosyn, supportive care. We will continue to follow the culture results and adjust. Thank you very much, Dr. Fernandes, for giving me opportunity to participate in this patient's care. JUNITO AMOS MD DR: ALEXIS/natalia JOB#: [id number] / [id number]
[2020-10-31 15:47] LABS: BASE EXCESS ABG -1 mmol/L (-3-3); HCO3 ABG 24 mmol/L (21-28); PCO2 ABG 42 mmHg (35-46); PO2 ABG 110 mmHg (65-108); SAT O2 ABG 97 % (92-99)
[2020-10-31] MEDS: POLYVINYL ALCOHOL 1.4% OPHTH SOLUTION 15ML BOTTLE. OU SCH ×3 (16:00→23:46)
--- NOTE | 2020-10-31 16:28 | NUR ---
Propofol turned off earlier. Pt woke right up and VELÁSQUEZ and follow commands. Remained calm and handled 30 min SBT well. ABG to Dr crawford. VSWNL. Extubated and placed on nasal cannula, Will titrate to keep sat >94%. Pt watching tv. Attempted to call son Toni back. OG removed as well. Able to get home meds down OG prior to extubation.
--- NOTE | 2020-10-31 16:43 | NUR ---
Breathing txs held due to + COVID status
[2020-10-31] MEDS: CARVEDILOL 12.5 MG TABLET. PO SCH (17:00)
[2020-10-31] MEDS ORDERED: INSULIN REGULAR 100 UNIT/ML 3ML VIAL. SQ SCH (17:00)
[2020-10-31] MEDS: metFORMIN 500 MG TABLET PO SCH (17:00)
[2020-10-31 17:46] LABS: FIO2 ABG 40%
[2020-10-31] MEDS ORDERED: DEXTROSE 50% 25 GM / 50ML DISP.SYRIN. IV PRN (18:00)
[2020-10-31] MEDS: DEXTROSE 50% 25 GM / 50ML DISP.SYRIN. IV PRN (18:14)
[2020-10-31] MEDS ORDERED: BUDESONIDE 0.5 MG/2 ML NEBU. NEB SCH (20:00)
[2020-10-31] MEDS: guaiFENesin ORAL 200 MG/10 ML LIQUID. PO PRN (20:04)
[2020-10-31] MEDS: FAMOTIDINE 20 MG TABLET. PO SCH (20:05)
[2020-10-31] MEDS: ATORVASTATIN CALCIUM 10 MG TABLET. PO SCH (20:06)
[2020-10-31] MEDS: risperiDONE 1 MG TABLET. PO SCH (20:07)
[2020-10-31] MEDS ORDERED: NON FORMULARY ITEM (Fluticasone/Salmeterol (Advair 500-50 Diskus) 1 PUFF) IH SCH (21:00)
[2020-11-01] VITALS (17 sets, daily range): BP systolic 85–178; BP diastolic 42–92
[2020-11-01] MEDS: CALCIUM CARBONATE 500 MG TABLET PO SCH ×7 (00:17→23:54)
[2020-11-01] MEDS: PIPERACILLIN/TAZOBACTAM 4.5 GM in IV NORMAL SALINE 100ML 100 ML IV SCH ×4 (00:18→18:44)
[2020-11-01] MEDS: IPRATRPIUM/ALBUTEROL 0.5/2.5MG 3 ML NEBU. NEB SCH ×7 (01:07→23:54)
[2020-11-01] MEDS: POLYVINYL ALCOHOL 1.4% OPHTH SOLUTION 15ML BOTTLE. OU SCH ×6 (04:00→23:56)
[2020-11-01] MEDS: ALBUTEROL SULFATE 2.5 MG/3 ML NEBU. NEB SCH ×5 (06:00→23:54)
[2020-11-01] MEDS: ACETAMINOPHEN 325 MG TABLET. PO SCH ×4 (06:00→23:54)
[2020-11-01] MEDS: HEPARIN for SUB-Q USE 5,000 UNIT/ML VIAL. SQ SCH ×3 (06:29→22:28)
[2020-11-01] MEDS: metFORMIN 500 MG TABLET PO SCH ×3 (08:00→17:00)
[2020-11-01] MEDS: INSULIN LISPRO 300 UNITS/3 ML VIAL. SQ SCH ×3 (08:00→17:00)
--- NOTE | 2020-11-01 08:10 | PDOC ---
Infectious Disease Note Subjective Subjective pt is feeling ok, extubated, on 4 lit only ROS ROS no n/v/d/ Vital Sign Vital Signs Vital Signs Date Time Temp Pulse Resp B/P (MAP) Pulse Ox O2 Delivery O2 Flow Rate FiO2 11/01/20 07:00 88 21 125/64 (84) 98 Nasal Cannula 4.0 11/01/20 04:00 98.8 98.8 Physical Exam PHYSICAL EXAM GENERAL: awake , comfortable VITAL SIGNS: Stable. HEENT: Both pupils are round and reacting. No conjunctival lesion. No lesion in the mouth. NECK: Supple, no JVP, no lymphadenopathy. LUNGS: Clear. HEART: S1, S2 regular. ABDOMEN: Benign. EXTREMITIES: No edema or cyanosis. SKIN: Unremarkable. NEUROLOGIC: awake, able to communicate Labs Lab Laboratory Tests Test 10/31/20 15:30 10/31/20 17:58 10/31/20 18:30 O2 Saturation 97 % (92-99) Arterial Blood pH 7.38 (7.35-7.45) Arterial Blood pCO2 at Patient Temp 42 mmHg (35-46) Arterial Blood pO2 at Patient Temp 110 mmHg (65-108) Arterial Blood HCO3 24 mmol/L (21-28) Arterial Blood Base Excess -1 mmol/L (-3-3) FiO2 40% Glucose (Fingerstick) 50 mg/dL (70-99) 147 mg/dL (70-99) Micro BLOOD CULTURE Final GRAM POSITIVE COCCI IN CLUSTERS, SUGGESTIVE OF STAPH, IN 1 OF 4 BOTTLES, TWO SETS DRAWN. CALLED TO IRAIS MORALES RN ON CVICU AT 9:30 ON 10/31/20 DW MT SENT TO [facility] FOR FURTHER WORKUP. URINE CULTURE Preliminary Preliminary GREATER THAN 100,000 CFU/ML GRAM NEGATIVE RODS FINAL ID= [KLEBSIELLA PNEUMONIAE] on 10/31/20 at 0955 Testing Performed by: [address] [address] For Inquires, the Physician may contact the Microbiology department at [phone] KLEBSIELLA PNEUMONIAE Unless otherwise specified, Testing Performed by: [facility] [address] [place] [address] For Inquires, the Physician may contact the Microbiology department at [phone] Objective Assessment IMPRESSION: 1. Blood culture positive 1/4 gram-positive cocci, most likely to be contaminant. 2. Urinary tract infection, gram-negative mary. 3. Respiratory failure. 4. Pulmonary infiltrate, probably congestive heart failure, although respiratory infection cannot be ruled out since she was encephalopathic, aspiration is possible. 5. Encephalopathy. 6. Schizophrenia. 7. Congestive heart failure. 8. Hypertension. 9. Obesity. 10. COVID pending. Plan Plan of Care cont zosyn for now cxr and resp status has improved significantly, all sec to chf, cont supportive care JUNITO AMOS MD Nov 01, 2020 08:10
[2020-11-01] MEDS: ASPIRIN CHEWABLE 81 MG TABLET. PO SCH (08:41)
[2020-11-01] MEDS: risperiDONE 1 MG TABLET. PO SCH (08:41)
[2020-11-01] MEDS: GABAPENTIN 100 MG CAPSULE. PO SCH ×3 (08:41→20:56)
[2020-11-01] MEDS: clonazePAM 0.5 MG TABLET PO SCH ×2 (08:41→20:56)
[2020-11-01] MEDS: LEVOTHYROXINE 112 MCG TABLET PO SCH (08:42)
[2020-11-01] MEDS: DICYCLOMINE HCL 10 MG CAPSULE PO SCH ×3 (08:42→20:56)
[2020-11-01] MEDS: buPROPion XL 150 MG TAB.ER.24H. PO SCH (08:42)
[2020-11-01] MEDS: CETIRIZINE HCL 10 MG TABLET. PO SCH (08:42)
[2020-11-01] MEDS: cloNIDine HCL 0.2 MG TABLET PO SCH ×3 (08:42→20:56)
[2020-11-01] MEDS: DOXYCYCLINE HYCLATE 100 MG TABLET PO SCH ×2 (08:43→20:56)
[2020-11-01] MEDS: CARVEDILOL 12.5 MG TABLET. PO SCH ×2 (08:43→17:00)
[2020-11-01] MEDS: rOPINIRole 1 MG TABLET. PO SCH (08:53)
[2020-11-01] MEDS ORDERED: RISPERIDONE 0.5 MG PO SCH (09:00)
[2020-11-01] MEDS: MULTIVITAMIN with MINERAL TABLET. PO SCH (09:00)
[2020-11-01] MEDS: POLYETHYLENE GLYCOL 3350 17 GM PACKET. PO SCH (09:00)
[2020-11-01] MEDS: DIPHENOXYLATE/ATROPINE TABLET. PO SCH ×3 (09:00→20:56)
[2020-11-01] MEDS: MAGNESIUM OXIDE 400 MG TABLET PO SCH (09:00)
[2020-11-01] MEDS: FOLIC ACID 1 MG TABLET. PO SCH (09:00)
[2020-11-01] MEDS: VITAMIN B COMPLEX TABLET. PO SCH (09:00)
[2020-11-01] MEDS: LACTOBACILLUS RHAMNOSUS GG 1 CAPSULE. PO SCH ×2 (09:00→20:56)
[2020-11-01 09:02] LABS: BASO % 1 % (0-3); EOS # 0.1 x10^3/uL (0.0-0.7); EOS % 2 % (0-3); HEMATOCRIT 27.9 % (36.0-47.0); HEMOGLOBIN 8.9 g/dL (12.0-15.5); LYMPH # 0.9 x10^3/uL (1.0-4.8); LYMPH % 19 % (24-48); MEAN CORPUSCULAR HEMOGLOBIN 30 pg (25-35); MEAN CORPUSCULAR HGB CONC 32 g/dL (31-37); MEAN CORPUSCULAR VOLUME 94 fL (79-100); MONO # 0.4 x10^3/uL (0.0-1.1); MONO % 10 % (0-9); NEUT % 68 % (31-73); PLATELET COUNT 100 x10^3/uL (140-400); RED BLOOD COUNT 2.97 x10^6/uL (3.50-5.40); RED CELL DISTRIBUTION WIDTH 16.7 % (11.5-14.5); WHITE BLOOD COUNT 4.4 x10^3/uL (4.0-11.0)
[2020-11-01 09:18] LABS: CALCIUM 6.7 mg/dL (8.5-10.1); CREATININE 0.9 mg/dL (0.6-1.0); GFR 77.5
--- NOTE | 2020-11-01 09:36 | PDOC ---
PULMONARY PROGRESS NOTES DATE: 11/01/20 TIME: 09:36 Subjective Now extubated on 10/31 on 4 liters N/C lethargic today no other concerns from nursing Vitals Vital Signs Date Time Temp Pulse Resp B/P (MAP) Pulse Ox O2 Delivery O2 Flow Rate FiO2 11/01/20 08:43 94 116/56 11/01/20 07:00 21 98 Nasal Cannula 4.0 11/01/20 04:00 98.8 98.8 General: Alert, No acute distress HEENT: Other Lungs: Clear Cardiovascular: S1, S2 Abdomen: Soft, Non-tender Extremities: Other Labs Laboratory Tests Test 10/30/20 11:29 10/30/20 12:56 10/31/20 07:55 10/31/20 08:00 Nasal Screen MRSA (PCR) Negative (NEGATIVE) Troponin I Quantitative 0.892 ng/mL (0.000-0.055) White Blood Count 3.9 x10^3/uL (4.0-11.0) Red Blood Count 3.20 x10^6/uL (3.50-5.40) Hemoglobin 9.9 g/dL (12.0-15.5) Hematocrit 29.8 % (36.0-47.0) Mean Corpuscular Volume 93 fL (79-100) Mean Corpuscular Hemoglobin 31 pg (25-35) Mean Corpuscular Hemoglobin Concent 33 g/dL (31-37) Red Cell Distribution Width 16.7 % (11.5-14.5) Platelet Count 124 x10^3/uL (140-400) Neutrophils (%) (Auto) 69 % (31-73) Lymphocytes (%) (Auto) 19 % (24-48) Monocytes (%) (Auto) 8 % (0-9) Eosinophils (%) (Auto) 3 % (0-3) Basophils (%) (Auto) 1 % (0-3) Neutrophils # (Auto) 2.7 x10^3/uL (1.8-7.7) Lymphocytes # (Auto) 0.7 x10^3/uL (1.0-4.8) Monocytes # (Auto) 0.3 x10^3/uL (0.0-1.1) Eosinophils # (Auto) 0.1 x10^3/uL (0.0-0.7) Basophils # (Auto) 0.0 x10^3/uL (0.0-0.2) Sodium Level 141 mmol/L (136-145) Potassium Level 3.2 mmol/L (3.5-5.1) Chloride Level 102 mmol/L (98-107) Carbon Dioxide Level 28 mmol/L (21-32) Anion Gap 11 (6-14) Blood Urea Nitrogen 11 mg/dL (7-20) Creatinine 1.4 mg/dL (0.6-1.0) Estimated GFR (Cockcroft-Gault) 46.6 Glucose Level 43 mg/dL (70-99) Calcium Level 7.2 mg/dL (8.5-10.1) Triglycerides Level 369 mg/dL (0-150) Cholesterol Level 109 mg/dL (0-200) LDL Cholesterol, Calculated 16 mg/dL (0-100) VLDL Cholesterol, Calculated 74 mg/dL (0-40) Non-HDL Cholesterol Calculated 90 mg/dL (0-129) HDL Cholesterol 19 mg/dL (40-60) Cholesterol/HDL Ratio 5.7 O2 Saturation 98 % (92-99) Arterial Blood pH 7.48 (7.35-7.45) Arterial Blood pCO2 at Patient Temp 35 mmHg (35-46) Arterial Blood pO2 at Patient Temp 112 mmHg (65-108) Arterial Blood HCO3 26 mmol/L (21-28) Arterial Blood Base Excess 2 mmol/L (-3-3) FiO2 40%+5 Test 10/31/20 15:30 10/31/20 17:58 10/31/20 18:30 11/01/20 08:10 O2 Saturation 97 % (92-99) Arterial Blood pH 7.38 (7.35-7.45) Arterial Blood pCO2 at Patient Temp 42 mmHg (35-46) Arterial Blood pO2 at Patient Temp 110 mmHg (65-108) Arterial Blood HCO3 24 mmol/L (21-28) Arterial Blood Base Excess -1 mmol/L (-3-3) FiO2 40% Glucose (Fingerstick) 50 mg/dL (70-99) 147 mg/dL (70-99) White Blood Count 4.4 x10^3/uL (4.0-11.0) Red Blood Count 2.97 x10^6/uL (3.50-5.40) Hemoglobin 8.9 g/dL (12.0-15.5) Hematocrit 27.9 % (36.0-47.0) Mean Corpuscular Volume 94 fL (79-100) Mean Corpuscular Hemoglobin 30 pg (25-35) Mean Corpuscular Hemoglobin Concent 32 g/dL (31-37) Red Cell Distribution Width 16.7 % (11.5-14.5) Platelet Count 100 x10^3/uL (140-400) Neutrophils (%) (Auto) 68 % (31-73) Lymphocytes (%) (Auto) 19 % (24-48) Monocytes (%) (Auto) 10 % (0-9) Eosinophils (%) (Auto) 2 % (0-3) Basophils (%) (Auto) 1 % (0-3) Neutrophils # (Auto) 3.0 x10^3/uL (1.8-7.7) Lymphocytes # (Auto) 0.9 x10^3/uL (1.0-4.8) Monocytes # (Auto) 0.4 x10^3/uL (0.0-1.1) Eosinophils # (Auto) 0.1 x10^3/uL (0.0-0.7) Basophils # (Auto) 0.0 x10^3/uL (0.0-0.2) Sodium Level 142 mmol/L (136-145) Potassium Level 4.0 mmol/L (3.5-5.1) Chloride Level 103 mmol/L (98-107) Carbon Dioxide Level 30 mmol/L (21-32) Anion Gap 9 (6-14) Blood Urea Nitrogen 7 mg/dL (7-20) Creatinine 0.9 mg/dL (0.6-1.0) Estimated GFR (Cockcroft-Gault) 77.5 Glucose Level 66 mg/dL (70-99) Calcium Level 6.7 mg/dL (8.5-10.1) Laboratory Tests Test 10/31/20 15:30 10/31/20 17:58 10/31/20 18:30 11/01/20 08:10 O2 Saturation 97 % (92-99) Arterial Blood pH 7.38 (7.35-7.45) Arterial Blood pCO2 at Patient Temp 42 mmHg (35-46) Arterial Blood pO2 at Patient Temp 110 mmHg (65-108) Arterial Blood HCO3 24 mmol/L (21-28) Arterial Blood Base Excess -1 mmol/L (-3-3) FiO2 40% Glucose (Fingerstick) 50 mg/dL (70-99) 147 mg/dL (70-99) White Blood Count 4.4 x10^3/uL (4.0-11.0) Red Blood Count 2.97 x10^6/uL (3.50-5.40) Hemoglobin 8.9 g/dL (12.0-15.5) Hematocrit 27.9 % (36.0-47.0) Mean Corpuscular Volume 94 fL (79-100) Mean Corpuscular Hemoglobin 30 pg (25-35) Mean Corpuscular Hemoglobin Concent 32 g/dL (31-37) Red Cell Distribution Width 16.7 % (11.5-14.5) Platelet Count 100 x10^3/uL (140-400) Neutrophils (%) (Auto) 68 % (31-73) Lymphocytes (%) (Auto) 19 % (24-48) Monocytes (%) (Auto) 10 % (0-9) Eosinophils (%) (Auto) 2 % (0-3) Basophils (%) (Auto) 1 % (0-3) Neutrophils # (Auto) 3.0 x10^3/uL (1.8-7.7) Lymphocytes # (Auto) 0.9 x10^3/uL (1.0-4.8) Monocytes # (Auto) 0.4 x10^3/uL (0.0-1.1) Eosinophils # (Auto) 0.1 x10^3/uL (0.0-0.7) Basophils # (Auto) 0.0 x10^3/uL (0.0-0.2) Sodium Level 142 mmol/L (136-145) Potassium Level 4.0 mmol/L (3.5-5.1) Chloride Level 103 mmol/L (98-107) Carbon Dioxide Level 30 mmol/L (21-32) Anion Gap 9 (6-14) Blood Urea Nitrogen 7 mg/dL (7-20) Creatinine 0.9 mg/dL (0.6-1.0) Estimated GFR (Cockcroft-Gault) 77.5 Glucose Level 66 mg/dL (70-99) Calcium Level 6.7 mg/dL (8.5-10.1) Medications Active Scripts Medications Dose Route/Sig Max Daily Dose Days Date Category Dose Instructions Lomotil Tablet (Diphenoxylate Hcl/Atropine) 1 Each Tablet 1 Tab PO TID 3 10/28/20 Rx Dicyclomine Hcl 20 Mg Tablet 1 Tab PO TID 10 10/28/20 Rx Zithromax (Azithromycin) 250 Mg Tablet 250 Mg PO DIRECTED 10/28/20 Rx Take 2 PO x 1 days Then take 1 PO q 24 hour for the next 4 days Doxycycline Hyclate 100 Mg Tablet 1 Tab PO BID 3 12/04/19 Rx Culturelle (Lactobacillus Rhamnosus Gg) 1 Each Cap.sprink 1 Cap PO BID 14 12/04/19 Rx Zofran (Ondansetron Hcl) 4 Mg Tablet 4 Mg PO Q8HRS PRN 12/02/19 Reported Tramadol Hcl 50 Mg Tablet 50 Mg PO Q6HRS PRN 12/02/19 Reported Tears Again (Polyvinyl Alcohol) 15 Ml Drops 2 Drop EACHEYE Q4HRS 30 12/02/19 Reported Polyvinyl Alcohol 15 Ml Drops 2 Drop EACHEYE Q4HRS 30 12/02/19 Reported Ropinirole Hcl 1 Mg Tablet 1 Mg PO BID 12/02/19 Reported Pantoprazole Sodium (Pantoprazole Sodium) 40 Mg Tablet.dr 40 Mg PO DAILYAC 12/02/19 Reported B-Complex Plus Vitamin C (B Complex With Vitamin C) 1 Each Tablet 1 Each PO DAILY 12/02/19 Reported Magnesium Oxide 400 Mg Tablet 400 Mg PO DAILY 12/02/19 Reported Loratadine 10 Mg Tablet 10 Mg PO DAILY 12/02/19 Reported Ketotifen Fumarate 5 Ml Drops 1 Drop EACHEYE BID 12/02/19 Reported Humalog (Insulin Lispro) 100 Unit/1 Ml Vial 100 Unit SQ BIDWMEALS 12/02/19 Reported 70 - 150 0 units 151 - 200 0 units 201 - 250 2 units 251 - 300 3 units 301 - 349 4 units if FSBS is under 70 or 350 and over call MD [guaifenesin Syrup] 10 Ml PO Q4HRS PRN 12/02/19 Reported Mucinex (Guaifenesin) 600 Mg Tablet.er 600 Mg PO BID 12/02/19 Reported Coreg (Carvedilol) 25 Mg Tablet 50 Mg PO BIDWMEALS 12/02/19 Reported Peridex (Chlorhexidine Gluconate) 15 Ml Mouthwash 15 Ml PO BID 30 12/02/19 Reported Swish in mouth for 30 seconds then spit out Calcium Carbonate 500 Mg Tablet 500 Mg PO Q4HRS 12/02/19 Reported Atorvastatin Calcium 10 Mg Tablet 10 Mg PO HS 12/02/19 Reported Acetaminophen 325 Mg Tablet 650 Mg PO Q6HRS 12/02/19 Reported Metformin Hcl 500 Mg Tablet 250 Mg PO BIDWMEALS 12/03/18 Reported Imodium A-D (Loperamide HCl) 2 Mg Capsule 2 Mg PO DAILY PRN 12/03/18 Reported Risperidone 0.5 Mg Tablet 0.5 Mg PO DAILY 03/21/18 Reported Risperidone 1 Mg Tablet 1 Tab PO QHS 03/21/18 Reported Levothyroxine Sodium 112 Mcg Tablet 1 Tab PO DAILY 03/21/18 Reported Advair 500-50 Diskus (Fluticasone/Salmeterol) 1 Each Disk.w.dev 1 Puff IH BID 03/21/18 Reported Nystatin 15 Gm Powder 1 Scott TP PRN BID PRN 03/21/18 Reported Clonazepam (Clonazepam) 0.5 Mg Tablet 1 Tab PO BID 09/30/16 Reported Montelukast Sodium Tablet (Montelukast Sodium) 10 Mg Tablet 1 Tab PO HS 02/18/16 Reported Gas-X (Simethicone) 80 Mg Tab.chew 160 Mg PO Q2HR PRN 02/18/16 Reported Gabapentin (Gabapentin) 100 Mg Capsule 100 Mg PO TID 02/18/16 Reported Comments CXR Impression: No significant change in left basilar aeration. No new infiltrates. Impression . IMPRESSION: 1. Acute on chronic hypoxemic hypercapnic respiratory failure. 2. Abnormal x-ray compatible with acute on chronic congestive heart failure, possibly COVID-19. 3. Abnormal x-ray. 4. COVID-19 person of suspect. 5. Acute metabolic toxic encephalopathy. 6. History of status post pacemaker defibrillator implantation. 7. Restless legs syndrome. 8. Schizoaffective disorder. 9. Acute on chronic systolic heart failure. 9. Non-ST segment elevation myocardial infarction. 10. Cardiomyopathy, ejection fraction on 11/2019 revealed EF of 45%. 11. Atrial fibrillation with V paced, currently underlying sinus rhythm. 12. Hyperlipidemia. 13. Hypothyroidism. 14. Fever, rule out bacteremia. 15. Sepsis. Plan . PLAN: Continue supplemental oxygen now on 4 liters N/C Extubated on 121/17, lethargic today will obtain ABG, may need BIPAP Follow CXR/ABG Continue ABX: currently on DOXY and zosyn Follow cardiology recs Continue Diureses PT/OT/ST Start PPN for nutritional support DVT/GI PPX D/W RN and RT MIGUEL NOE MD Nov 01, 2020 09:36
--- NOTE | 2020-11-01 10:37 | PDOC ---
[facility] PROGRESS NOTE Date of Service DOS: DATE: 11/01/20 TIME: 10:30 Chief Complaint Chief Complaint COVID Positive Acute hypoxemic hypercapnic respiratory failure Acute on chronic heart failure Blood cultures positive Heart failure PMH FL AICD in UTI Hypocalcemia Hypertriglyceridemia Hypokalemia Anemia Moderate to Severe Hypoglycemia (43) Elevated Cr History of Present Illness History of Present Illness 10/31 Patient seen and examined in ICU Patient sedated with propofol Possible COVID - pending under investigation Discussed with RN Chart reviewed Blood culture positive Vent settings as follows AC//450/40 11/01 Patient is COVID positive Patient seen and examined in ICU Patient sedated with propofol Discussed with RN Discussed with Nurse Manager Chart reviewed Blood cultures are positive Vitals/I&O Vitals/I&O: Vital Signs Date Time Temp Pulse Resp B/P (MAP) Pulse Ox O2 Delivery O2 Flow Rate FiO2 11/01/20 09:00 100 28 134/68 (90) 96 Nasal Cannula 4.0 11/01/20 08:00 97.6 97.6 I & O 10/31/20 10/31/20 11/01/20 15:00 23:00 07:00 Intake Total 338 ml 120 ml Output Total 650 ml 425 ml Balance 338 ml -530 ml -425 ml Physical Exam Physical Exam: GENERAL: awake , comfortable VITAL SIGNS: Stable. HEENT: Both pupils are round and reacting. No conjunctival lesion. No lesion in the mouth. NECK: Supple, no JVP, no lymphadenopathy. LUNGS: Clear. HEART: S1, S2 regular. ABDOMEN: Benign. EXTREMITIES: No edema or cyanosis. SKIN: Unremarkable. NEUROLOGIC: awake, able to communicate General: No acute distress, Other Heart: Regular rate Lungs: Clear Abdomen: Soft, Other Extremities: No edema Skin: No rashes, No breakdown, No significant lesion Labs Labs: Laboratory Tests Test 10/31/20 15:30 10/31/20 17:58 10/31/20 18:30 11/01/20 08:10 O2 Saturation 97 % (92-99) Arterial Blood pH 7.38 (7.35-7.45) Arterial Blood pCO2 at Patient Temp 42 mmHg (35-46) Arterial Blood pO2 at Patient Temp 110 mmHg (65-108) Arterial Blood HCO3 24 mmol/L (21-28) Arterial Blood Base Excess -1 mmol/L (-3-3) FiO2 40% Glucose (Fingerstick) 50 mg/dL (70-99) 147 mg/dL (70-99) White Blood Count 4.4 x10^3/uL (4.0-11.0) Red Blood Count 2.97 x10^6/uL (3.50-5.40) Hemoglobin 8.9 g/dL (12.0-15.5) Hematocrit 27.9 % (36.0-47.0) Mean Corpuscular Volume 94 fL (79-100) Mean Corpuscular Hemoglobin 30 pg (25-35) Mean Corpuscular Hemoglobin Concent 32 g/dL (31-37) Red Cell Distribution Width 16.7 % (11.5-14.5) Platelet Count 100 x10^3/uL (140-400) Neutrophils (%) (Auto) 68 % (31-73) Lymphocytes (%) (Auto) 19 % (24-48) Monocytes (%) (Auto) 10 % (0-9) Eosinophils (%) (Auto) 2 % (0-3) Basophils (%) (Auto) 1 % (0-3) Neutrophils # (Auto) 3.0 x10^3/uL (1.8-7.7) Lymphocytes # (Auto) 0.9 x10^3/uL (1.0-4.8) Monocytes # (Auto) 0.4 x10^3/uL (0.0-1.1) Eosinophils # (Auto) 0.1 x10^3/uL (0.0-0.7) Basophils # (Auto) 0.0 x10^3/uL (0.0-0.2) Sodium Level 142 mmol/L (136-145) Potassium Level 4.0 mmol/L (3.5-5.1) Chloride Level 103 mmol/L (98-107) Carbon Dioxide Level 30 mmol/L (21-32) Anion Gap 9 (6-14) Blood Urea Nitrogen 7 mg/dL (7-20) Creatinine 0.9 mg/dL (0.6-1.0) Estimated GFR (Cockcroft-Gault) 77.5 Glucose Level 66 mg/dL (70-99) Calcium Level 6.7 mg/dL (8.5-10.1) Assessment and Plan Assessmemt and Plan Problems Medical Problems: (1) AMS (altered mental status) Status: Acute (2) Hypercapnia Status: Acute (3) Person under investigation for COVID-19 Status: Acute (4) Respiratory failure Status: Acute (5) UTI (urinary tract infection) Status: Acute ASSESSMENT: COVID Positive Acute hypoxemic hypercapnic respiratory failure Acute on chronic heart failure Blood cultures positive Heart failure PMH FL AICD in UTI Hypocalcemia Hypertriglyceridemia Hypokalemia Anemia Moderate to Severe Hypoglycemia (43) Elevated Cr PLAN: Continue COVID protocol Continue ICU monitoring Order potassium for hypokalemia Order dextrose for hypoglycemia PT/OT Speech Therapy Labs tomorrow Continue home meds Full code Comment Review of Relevant I have reviewed the following items lucas (where applicable) has been applied. Medications: Current Medications Medications (Trade) Dose Ordered Sig/Eber Route PRN Reason Start Time Stop Time Status Last Admin Dose Admin Atorvastatin Calcium (Lipitor) 10 mg HS PO 10/31/20 21:00 10/31/20 20:06 Bupropion HCl (Wellbutrin Xl) 150 mg DAILY PO 10/31/20 12:00 11/01/20 08:42 Calcium Carbonate/ Glycine (Oscal) 500 mg Q4HRS PO 10/31/20 12:00 11/01/20 00:17 Clonazepam (KlonoPIN) 0.5 mg BID PO 10/31/20 12:00 11/01/20 08:41 Clonidine HCl (Catapres) 0.2 mg TID PO 10/31/20 12:00 11/01/20 08:42 Diphenoxylate HCl/ Atropine (Lomotil) 1 tab TID PO 10/31/20 14:00 10/31/20 20:05 Doxycycline Hyclate (Vibra-Tab) 100 mg BID PO 10/31/20 12:00 11/01/20 08:43 Famotidine (Pepcid) 20 mg HS PO 10/31/20 21:00 10/31/20 20:05 Gabapentin (Neurontin) 100 mg TID PO 10/31/20 14:00 11/01/20 08:41 Lactobacillus Rhamnosus (Culturelle) 1 cap BID PO 10/31/20 12:00 10/31/20 20:05 Levothyroxine Sodium (Synthroid) 112 mcg DAILY06 PO 11/01/20 09:00 11/01/20 08:42 Risperidone (RisperDAL) 1 mg QHS PO 10/31/20 21:00 11/01/20 08:41 Ropinirole HCl (Requip) 2 mg DAILY PO 11/01/20 09:00 11/01/20 08:53 Vitamin B Complex (Dustin B) 1 tab DAILY PO 10/31/20 12:00 10/31/20 13:04 Dicyclomine HCl (Bentyl) 20 mg TID PO 10/31/20 14:00 11/01/20 08:42 Folic Acid (Folic Acid) 0.5 mg DAILY PO 10/31/20 12:00 10/31/20 13:06 Cetirizine HCl (ZyrTEC) 10 mg DAILY PO 11/01/20 09:00 11/01/20 08:42 Magnesium Oxide (Magnesium Oxide) 400 mg DAILY PO 10/31/20 12:00 10/31/20 13:05 Multivitamins (Thera M Plus) 1 tab DAILY PO 10/31/20 12:30 10/31/20 13:05 Glycerin/ Hypromellose/ Polyethylene (Artificial Tears) 2 drop Q4HRS OU 10/31/20 16:00 11/01/20 08:00 Guaifenesin (Robitussin) 200 mg PRN Q4HRS PRN PO COUGH 10/31/20 12:45 10/31/20 20:04 Dextrose (Dextrose 50%-Water Syringe) 12.5 gm PRN Q15MIN PRN IV SEE COMMENTS 10/31/20 11:45 10/31/20 18:14 Carvedilol (Coreg) 12.5 mg BIDWMEALS PO 10/31/20 17:00 11/01/20 08:43 Justifications for Admission Other Justification SHAHNAZ SANTOS III DO Nov 01, 2020 10:37
[2020-11-01] MEDS: DEXTROSE 50% 25 GM / 50ML DISP.SYRIN. IV PRN (10:39)
--- NOTE | 2020-11-01 10:55 | HP ---
ADMIT DATE: 10/30/2020 CHIEF COMPLAINT: Shortness of breath and mental status change. HISTORY OF PRESENT ILLNESS: The patient is a pleasant 60-year-old female who lives in a shelter. She was brought to the ER with mental status change. She has been short of breath. She was found on the floor in her room. While in the ER, she was noted to have fulminant respiratory failure and had to be intubated. The patient is being examined on the ICU floor where we are ruling out COVID-19. PAST MEDICAL HISTORY: AFib, anxiety, asthma, CHF, constipation, diabetes, GERD, hypothyroidism, schizophrenia, restless leg syndrome, pacemaker. ALLERGIES: LACTOSE AND LISINOPRIL. FAMILY HISTORY: Diabetes. SOCIAL HISTORY: She used to smoke. No drink or drugs. She lives in a shelter. MEDICATIONS: Reviewed, please refer to the MRAD. REVIEW OF SYSTEMS: Unable to obtain. The patient is intubated. PHYSICAL EXAMINATION: VITALS: Within normal limits and are stable. GENERAL: She is sedated on the vent. HEENT: Normal cephalic atraumatic, external auditory canals are patent EYES: Extraocular muscles are intact, pupils are equally round and reactive to light and accommodation MUSCULOSKELETAL: Well developed, well nourished, good range of motion ENDOCRINE: No thyromegaly was palpated LYMPHATICS: No cervical chain or axillary nodes were noted HEMATOPOIETIC: No bruising NECK: Supple, no JVD, no thyromegaly was noted. LUNGS: Clear to auscultation in all lung aden without rhonchi or wheezing. HEART: RRR, S1, S2 present. Peripheral pulses intact, no obvious murmurs were noted. ABDOMEN: Soft, nontender. Positive bowel sounds no organomegaly, normal bowel sounds. EXTREMITIES: Without any cyanosis, clubbing, or edema. Pedal pulses intact, Homans sign is negative. NEUROLOGIC: She is sedated on the vent PSYCHIATRIC: She is sedated on the vent. SKIN: No ulcerations or rashes, good skin turgor, no jaundice. VASCULAR: Good capillary refill, neurovascular bundle appears to be intact. ASSESSMENT AND PLAN: Respiratory failure with possible COVID-19 and acute on chronic systolic and diastolic heart failure. The patient will be admitted. We consulted Pulmonary Medicine for the vent management. Consult Infectious Disease. ICU monitoring, home meds, deep venous thrombosis prophylaxis. Full code. PROGNOSIS: Guarded. SHAHNAZ SANTOS DO DR: WILLIAM/natalia JOB#: [id number] / [id number]
--- NOTE | 2020-11-01 11:39 | PDOC ---
ANURAG MANRIQUE [employer]INGO CLEANER 11/01/20 1139: CARDIO Progress Notes Date and Time Date of Service 11/01/2020 Time of Evaluation 1010 Subjective Subjective: Other (asleep) Vitals Vitals Vital Signs Date Time Temp Pulse Resp B/P (MAP) Pulse Ox O2 Delivery O2 Flow Rate FiO2 11/01/20 10:00 100 28 134/68 (90) 96 Nasal Cannula 4.0 11/01/20 08:00 97.6 97.6 Weight Weight [ ] Input and Output Intake and Output Intake and Output 11/01/20 07:00 Intake Total 458 ml Output Total 1075 ml Balance -617 ml Intake Oral 120 ml IV Total 338 ml Output Urine Total 1075 ml # Bowel Movements 1 Laboratory Labs Laboratory Tests Test 10/31/20 15:30 10/31/20 17:58 10/31/20 18:30 11/01/20 08:10 O2 Saturation 97 % (92-99) Arterial Blood pH 7.38 (7.35-7.45) Arterial Blood pCO2 at Patient Temp 42 mmHg (35-46) Arterial Blood pO2 at Patient Temp 110 mmHg (65-108) Arterial Blood HCO3 24 mmol/L (21-28) Arterial Blood Base Excess -1 mmol/L (-3-3) FiO2 40% Glucose (Fingerstick) 50 mg/dL (70-99) 147 mg/dL (70-99) White Blood Count 4.4 x10^3/uL (4.0-11.0) Red Blood Count 2.97 x10^6/uL (3.50-5.40) Hemoglobin 8.9 g/dL (12.0-15.5) Hematocrit 27.9 % (36.0-47.0) Mean Corpuscular Volume 94 fL (79-100) Mean Corpuscular Hemoglobin 30 pg (25-35) Mean Corpuscular Hemoglobin Concent 32 g/dL (31-37) Red Cell Distribution Width 16.7 % (11.5-14.5) Platelet Count 100 x10^3/uL (140-400) Neutrophils (%) (Auto) 68 % (31-73) Lymphocytes (%) (Auto) 19 % (24-48) Monocytes (%) (Auto) 10 % (0-9) Eosinophils (%) (Auto) 2 % (0-3) Basophils (%) (Auto) 1 % (0-3) Neutrophils # (Auto) 3.0 x10^3/uL (1.8-7.7) Lymphocytes # (Auto) 0.9 x10^3/uL (1.0-4.8) Monocytes # (Auto) 0.4 x10^3/uL (0.0-1.1) Eosinophils # (Auto) 0.1 x10^3/uL (0.0-0.7) Basophils # (Auto) 0.0 x10^3/uL (0.0-0.2) Sodium Level 142 mmol/L (136-145) Potassium Level 4.0 mmol/L (3.5-5.1) Chloride Level 103 mmol/L (98-107) Carbon Dioxide Level 30 mmol/L (21-32) Anion Gap 9 (6-14) Blood Urea Nitrogen 7 mg/dL (7-20) Creatinine 0.9 mg/dL (0.6-1.0) Estimated GFR (Cockcroft-Gault) 77.5 Glucose Level 66 mg/dL (70-99) Calcium Level 6.7 mg/dL (8.5-10.1) Microbiology Micro Microbiology 10/30/20 Blood Culture - Final, Complete 10/30/20 Urine Culture - Final, Complete 10/30/20 Antimicrobic Susceptibility - Final, Complete Physical Exam HEENT: Neck Supple W Full Motion Chest: Symmetric LUNGS: Other (diffuse crackles) Heart: RRR (V paced) Abdomen: Other (soft ) Extremities: Other (LE edema) Neurology: other (asleep) Assessment Assessment 1. Acute respiratory failure requiting intubation with a/c CHF and Covid PNA: post extubation 2. Acute on chronic systolic CHF 3. NSTEMI: peak trop 1. Most probable type II, demand ischemia 4. Cardiomyopathy: prior Ef at 45% 5. AFIB; v-paced with underlying SR 6. Hypertension; better 7. Hyperlipidemia; statin. High TG 8. Diabetes, II 9. Hypothyroidism; on replacement 10. Encephalopathy 11. Anxiety, depression, schizoaffective disorder. 13. Hypokalemia; resolved Recommendations 1. ASA, statin therapy. Consider Vascepa upon DC. Dietitian consult 2. Lasix IV today then PO daily. Unclear allergy to lisinopril. If no adverse issues then consider ARB. 3. Continue secondary prevention measures 4. Echo outpt when recovered from COVID 5. Lung optimization as per pulm 6. Plan outpatient ischemic evaluation 7. Supportive care Justicifation of Admission Dx: Justifications for Admission: Justification of Admission Dx: Yes RADHA SWAN MD 11/01/20 3400: CARDIO Progress Notes Assessment Assessment Agree with ASSISTANT PLANT MANAGER's assessment and plan. Trop elevation prob demand ischemia Plan ischemic evaluation as outpatient Ac on chr systolic HF better compensated with diuresis Last NATURAL HISTORY COLLECTIONS CURATOR-D device check showed normal function ANURAG MANRIQUE APRN Nov 01, 2020 11:39 RADHA SWAN MD Nov 01, 2020 18:50
[2020-11-01] MEDS ORDERED: FUROSEMIDE 40 MG/4 ML VIAL. IVP ONE (11:45)
--- NOTE | 2020-11-01 12:00 | NUR ---
Noon PO medications non administered due to pt being somnolent. RN asked pt if her psych medications always made her this tired and pt unable to respond appropriate. Spoke with son this AM and updated on pt condition. Will attempt to get a phone in her room so she can call him when she wakes up more.
[2020-11-01] MEDS ORDERED: AMINO AC 3%/ELECTROLYTE/GLYCER 1,000 ML IV SCH (13:00)
--- NOTE | 2020-11-01 13:04 | NUR ---
SS following up with discharge planning. SS reviewed pt chart and discussed with pt RN. Pt is currently requiring oxygen. COVID19 positive on PCR. Pt on IV Zosyn and PPN. Pt is LTC resident from [place], ; fax [phone]. SS phoned and faxed clinical updates to [place]. SS will continue to follow for discharge planning.
[2020-11-01] MEDS: AMINO AC 3%/ELECTROLYTE/GLYCER 1,000 ML IV SCH (13:42)
--- NOTE | 2020-11-01 14:00 | NUR ---
Pt's 1400 PO medications non administered-- pt still somnolent. BP 96/59.
--- NOTE | 2020-11-01 14:30 | NUR ---
Dr. Tracy rounded on pt and ordered blood gas and Bipap due to pt's mental status change. RT paged.
[2020-11-01 16:39] LABS: BASE EXCESS ABG 6 mmol/L (-3-3); HCO3 ABG 33 mmol/L (21-28); PO2 ABG 81 mmHg (65-108); SAT O2 ABG 95 % (92-99)
[2020-11-01 16:41] LABS: FIO2 ABG 38; PCO2 ABG 66 mmHg (35-46)
--- NOTE | 2020-11-01 16:54 | NUR ---
Speech evaluated pt and decided pt is not alert enough and does not have a strong enough swallow to have a diet order. NPO order placed. PO medications non administered. Pt receiving PPN @ 80/hr.
[2020-11-01] MEDS: FAMOTIDINE 20 MG TABLET. PO SCH (20:56)
[2020-11-01] MEDS: ATORVASTATIN CALCIUM 10 MG TABLET. PO SCH (20:56)
[2020-11-02] MEDS: PIPERACILLIN/TAZOBACTAM 4.5 GM in IV NORMAL SALINE 100ML 100 ML IV SCH ×4 (00:13→16:59)
[2020-11-02] MEDS: ACETAMINOPHEN 650 MG SUPP.RECT. PR PRN ×2 (00:13→07:27)
[2020-11-02 03:00] VITALS: BP 171/96
[2020-11-02] MEDS: AMINO AC 3%/ELECTROLYTE/GLYCER 1,000 ML IV SCH ×2 (03:08→14:27)
[2020-11-02] MEDS: IPRATRPIUM/ALBUTEROL 0.5/2.5MG 3 ML NEBU. NEB SCH ×2 (03:19→06:39)
[2020-11-02] MEDS: ACETAMINOPHEN 325 MG TABLET. PO SCH ×3 (03:19→17:28)
[2020-11-02] MEDS: LEVOTHYROXINE 112 MCG TABLET PO SCH (03:19)
[2020-11-02] MEDS: CALCIUM CARBONATE 500 MG TABLET PO SCH ×5 (03:19→20:00)
[2020-11-02] MEDS: ALBUTEROL SULFATE 2.5 MG/3 ML NEBU. NEB SCH (03:19)
[2020-11-02] MEDS: POLYVINYL ALCOHOL 1.4% OPHTH SOLUTION 15ML BOTTLE. OU SCH ×5 (03:24→22:18)
[2020-11-02] MEDS: HEPARIN for SUB-Q USE 5,000 UNIT/ML VIAL. SQ SCH ×3 (05:58→22:22)
--- NOTE | 2020-11-02 06:10 | NUR ---
NURSING NOTE Pt tolerated Bipap the whole shift. Pt frequently tried to take off the mask, had to reinterate to pt the need to wear bipap. Pt would vu. Frequent oral care provided. Pt currently resting at this time, O2@98% on bipap, RR 27, HR 104. Will monitor.
[2020-11-02] MEDS ORDERED: IPRATRPIUM/ALBUTEROL 0.5/2.5MG 3 ML NEBU. NEB PRN (07:00)
[2020-11-02 07:15] VITALS: BP 169/97
[2020-11-02 07:53] LABS: BASE EXCESS ABG 7 mmol/L (-3-3); FIO2 ABG 35%; HCO3 ABG 35 mmol/L (21-28); PCO2 ABG 58 mmHg (35-46); PO2 ABG 62 mmHg (65-108); SAT O2 ABG 92 % (92-99)
[2020-11-02] MEDS: metFORMIN 500 MG TABLET PO SCH ×2 (08:00→16:32)
[2020-11-02] MEDS: INSULIN LISPRO 300 UNITS/3 ML VIAL. SQ SCH ×3 (08:00→16:32)
[2020-11-02] MEDS: POTASSIUM CHLORIDE 10 MEQ TABLET.ER. PO SCH (08:00)
[2020-11-02] MEDS: ASPIRIN CHEWABLE 81 MG TABLET. PO SCH (08:00)
[2020-11-02] MEDS: CARVEDILOL 12.5 MG TABLET. PO SCH ×2 (08:00→16:32)
--- NOTE | 2020-11-02 08:00 | NUR ---
pt very agitated and anxious. patient stating she feels "delirious." patient keeps removing bipap and requesting water. patient given oral care by this rn. patient not wanting to keep bipap mask on. patient keeps yelling "help" and trying to get out of bed. Dr Fernandes paged for orders.
--- NOTE | 2020-11-02 08:21 | PDOC ---
[facility] [facility] PROGRESS NOTE Date of Service DOS: DATE: 11/02/20 TIME: 08:18 Chief Complaint Chief Complaint COVID Positive Acute hypoxemic hypercapnic respiratory failure Acute on chronic heart failure Blood cultures positive Heart failure PMH NH AICD in UTI Hypocalcemia Hypertriglyceridemia Anemia Low platelets Hypoglycemia (43) Elevated Cr History of Present Illness History of Present Illness 10/31 Patient seen and examined in ICU Patient sedated with propofol Possible COVID - pending under investigation Discussed with RN Chart reviewed Blood culture positive Vent settings as follows AC//450/40 11/01 Patient is COVID positive Patient seen and examined in ICU Patient sedated with propofol Discussed with RN Discussed with Counter Tender Chart reviewed Blood cultures are positive 11/02 Patient is COVID positive Patient seen and examined in ICU Propofol IV Discussed with RN Chart Reviewed Blood cultures positive Vitals/I&O Vitals/I&O: Vital Signs Date Time Temp Pulse Resp B/P (MAP) Pulse Ox O2 Delivery O2 Flow Rate FiO2 11/02/20 07:20 96 BiPAP/CPAP 11/02/20 07:15 100.8 97 22 169/97 (121) 100.8 11/01/20 14:00 4.0 I & O 11/01/20 11/01/20 11/02/20 15:00 23:00 07:00 Intake Total 1100 ml Output Total 515 ml 860 ml 850 ml Balance -515 ml -860 ml 250 ml Physical Exam Physical Exam: GENERAL: awake , comfortable VITAL SIGNS: Stable. HEENT: Both pupils are round and reacting. No conjunctival lesion. No lesion in the mouth. NECK: Supple, no JVP, no lymphadenopathy. LUNGS: Clear. HEART: S1, S2 regular. ABDOMEN: Benign. EXTREMITIES: No edema or cyanosis. SKIN: Unremarkable. NEUROLOGIC: awake, able to communicate General: No acute distress, Other Heart: Regular rate Lungs: Clear Abdomen: Soft, Other Extremities: No edema Skin: No rashes, No breakdown, No significant lesion Labs Labs: Laboratory Tests Test 11/01/20 12:08 11/01/20 16:30 11/01/20 18:36 11/02/20 07:30 Glucose (Fingerstick) 102 mg/dL (70-99) 124 mg/dL (70-99) O2 Saturation 95 % (92-99) 92 % (92-99) Arterial Blood pH 7.32 (7.35-7.45) 7.39 (7.35-7.45) Arterial Blood pCO2 at Patient Temp 66 mmHg (35-46) 58 mmHg (35-46) Arterial Blood pO2 at Patient Temp 81 mmHg (65-108) 62 mmHg (65-108) Arterial Blood HCO3 33 mmol/L (21-28) 35 mmol/L (21-28) Arterial Blood Base Excess 6 mmol/L (-3-3) 7 mmol/L (-3-3) FiO2 38 35% Test 11/02/20 07:35 Glucose (Fingerstick) 108 mg/dL (70-99) Assessment and Plan Assessmemt and Plan Problems Medical Problems: (1) AMS (altered mental status) Status: Acute (2) Hypercapnia Status: Acute (3) Person under investigation for COVID-19 Status: Acute (4) Respiratory failure Status: Acute (5) UTI (urinary tract infection) Status: Acute ASSESSMENT: COVID Positive Acute hypoxemic hypercapnic respiratory failure Acute on chronic heart failure Blood cultures positive Heart failure PMH NH AICD in UTI Hypocalcemia Hypertriglyceridemia Anemia Low platelets Hypoglycemia (43) Elevated Cr PLAN: Continue ICU monitoring PT/OT Speech therapy Home meds Full code Comment Review of Relevant I have reviewed the following items lucas (where applicable) has been applied. Medications: Current Medications Medications (Trade) Dose Ordered Sig/Eber Route PRN Reason Start Time Stop Time Status Last Admin Dose Admin Levothyroxine Sodium (Synthroid) 112 mcg DAILY06 PO 11/01/20 09:00 11/01/20 08:42 Ropinirole HCl (Requip) 2 mg DAILY PO 11/01/20 09:00 11/01/20 08:53 Cetirizine HCl (ZyrTEC) 10 mg DAILY PO 11/01/20 09:00 11/01/20 08:42 Furosemide (Lasix) 40 mg 1X ONCE IVP 11/01/20 11:45 11/01/20 11:46 DC 11/01/20 12:04 Amino Acids/ Glycerin/ Electrolytes 1,000 ml @ 80 mls/hr [id number] IV 11/01/20 13:30 11/02/20 03:08 Acetaminophen (Tylenol Supp) 650 mg PRN Q6HRS PRN ME MILD PAIN / TEMP > 100.3'F 11/02/20 00:00 11/02/20 07:27 Justifications for Admission Other Justification SHAHNAZ SANTOS III DO Nov 02, 2020 08:21
[2020-11-02] MEDS: CETIRIZINE HCL 10 MG TABLET. PO SCH (09:00)
[2020-11-02] MEDS: FUROSEMIDE 40 MG TABLET. PO SCH (09:00)
[2020-11-02] MEDS: POLYETHYLENE GLYCOL 3350 17 GM PACKET. PO SCH (09:00)
[2020-11-02] MEDS: LACTOBACILLUS RHAMNOSUS GG 1 CAPSULE. PO SCH ×2 (09:00→21:00)
[2020-11-02] MEDS: MAGNESIUM OXIDE 400 MG TABLET PO SCH (09:00)
[2020-11-02] MEDS: DIPHENOXYLATE/ATROPINE TABLET. PO SCH ×3 (09:00→21:00)
[2020-11-02] MEDS: DICYCLOMINE HCL 10 MG CAPSULE PO SCH ×3 (09:00→21:00)
[2020-11-02] MEDS: DOXYCYCLINE HYCLATE 100 MG TABLET PO SCH (09:00)
[2020-11-02] MEDS: MULTIVITAMIN with MINERAL TABLET. PO SCH (09:00)
[2020-11-02] MEDS: GABAPENTIN 100 MG CAPSULE. PO SCH ×3 (09:00→21:00)
[2020-11-02] MEDS: cloNIDine HCL 0.2 MG TABLET PO SCH ×3 (09:00→21:00)
[2020-11-02] MEDS: clonazePAM 0.5 MG TABLET PO SCH ×2 (09:00→21:00)
[2020-11-02] MEDS: FOLIC ACID 1 MG TABLET. PO SCH (09:00)
[2020-11-02] MEDS: rOPINIRole 1 MG TABLET. PO SCH (09:00)
[2020-11-02] MEDS: buPROPion XL 150 MG TAB.ER.24H. PO SCH (09:00)
[2020-11-02] MEDS: VITAMIN B COMPLEX TABLET. PO SCH (09:00)
[2020-11-02 11:00] VITALS: BP 173/95
[2020-11-02] MEDS: LABETALOL 20 MG/4 ML DISP.SYRIN. IVP PRN ×2 (11:39→14:40)
[2020-11-02] MEDS: HALOPERIDOL LACTATE 5 MG/ML VIAL. IVP PRN (11:39)
--- NOTE | 2020-11-02 13:18 | PDOC ---
PULMONARY PROGRESS NOTES DATE: 11/02/20 TIME: 13:15 Subjective Now extubated on 10/31 on BIPAP 35% Pt. is confused/agitated low grade fever overnight no other concerns from nursing Vitals Vital Signs Date Time Temp Pulse Resp B/P (MAP) Pulse Ox O2 Delivery O2 Flow Rate FiO2 11/02/20 12:38 100 Nasal Cannula 4.0 11/02/20 11:39 105 173/95 11/02/20 11:00 97.9 26 97.9 General: No acute distress, Confused HEENT: Other Lungs: Clear Cardiovascular: S1, S2 Abdomen: Soft, Non-tender Extremities: Other Labs Laboratory Tests Test 10/31/20 15:30 10/31/20 17:58 10/31/20 18:30 11/01/20 08:10 O2 Saturation 97 % (92-99) Arterial Blood pH 7.38 (7.35-7.45) Arterial Blood pCO2 at Patient Temp 42 mmHg (35-46) Arterial Blood pO2 at Patient Temp 110 mmHg (65-108) Arterial Blood HCO3 24 mmol/L (21-28) Arterial Blood Base Excess -1 mmol/L (-3-3) FiO2 40% Glucose (Fingerstick) 50 mg/dL (70-99) 147 mg/dL (70-99) White Blood Count 4.4 x10^3/uL (4.0-11.0) Red Blood Count 2.97 x10^6/uL (3.50-5.40) Hemoglobin 8.9 g/dL (12.0-15.5) Hematocrit 27.9 % (36.0-47.0) Mean Corpuscular Volume 94 fL (79-100) Mean Corpuscular Hemoglobin 30 pg (25-35) Mean Corpuscular Hemoglobin Concent 32 g/dL (31-37) Red Cell Distribution Width 16.7 % (11.5-14.5) Platelet Count 100 x10^3/uL (140-400) Neutrophils (%) (Auto) 68 % (31-73) Lymphocytes (%) (Auto) 19 % (24-48) Monocytes (%) (Auto) 10 % (0-9) Eosinophils (%) (Auto) 2 % (0-3) Basophils (%) (Auto) 1 % (0-3) Neutrophils # (Auto) 3.0 x10^3/uL (1.8-7.7) Lymphocytes # (Auto) 0.9 x10^3/uL (1.0-4.8) Monocytes # (Auto) 0.4 x10^3/uL (0.0-1.1) Eosinophils # (Auto) 0.1 x10^3/uL (0.0-0.7) Basophils # (Auto) 0.0 x10^3/uL (0.0-0.2) Sodium Level 142 mmol/L (136-145) Potassium Level 4.0 mmol/L (3.5-5.1) Chloride Level 103 mmol/L (98-107) Carbon Dioxide Level 30 mmol/L (21-32) Anion Gap 9 (6-14) Blood Urea Nitrogen 7 mg/dL (7-20) Creatinine 0.9 mg/dL (0.6-1.0) Estimated GFR (Cockcroft-Gault) 77.5 Glucose Level 66 mg/dL (70-99) Calcium Level 6.7 mg/dL (8.5-10.1) Test 11/01/20 12:08 11/01/20 16:30 11/01/20 18:36 11/02/20 07:30 Glucose (Fingerstick) 102 mg/dL (70-99) 124 mg/dL (70-99) O2 Saturation 95 % (92-99) 92 % (92-99) Arterial Blood pH 7.32 (7.35-7.45) 7.39 (7.35-7.45) Arterial Blood pCO2 at Patient Temp 66 mmHg (35-46) 58 mmHg (35-46) Arterial Blood pO2 at Patient Temp 81 mmHg (65-108) 62 mmHg (65-108) Arterial Blood HCO3 33 mmol/L (21-28) 35 mmol/L (21-28) Arterial Blood Base Excess 6 mmol/L (-3-3) 7 mmol/L (-3-3) FiO2 38 35% Test 11/02/20 07:35 11/02/20 11:44 Glucose (Fingerstick) 108 mg/dL (70-99) 122 mg/dL (70-99) Laboratory Tests Test 11/01/20 16:30 11/01/20 18:36 11/02/20 07:30 11/02/20 07:35 O2 Saturation 95 % (92-99) 92 % (92-99) Arterial Blood pH 7.32 (7.35-7.45) 7.39 (7.35-7.45) Arterial Blood pCO2 at Patient Temp 66 mmHg (35-46) 58 mmHg (35-46) Arterial Blood pO2 at Patient Temp 81 mmHg (65-108) 62 mmHg (65-108) Arterial Blood HCO3 33 mmol/L (21-28) 35 mmol/L (21-28) Arterial Blood Base Excess 6 mmol/L (-3-3) 7 mmol/L (-3-3) FiO2 38 35% Glucose (Fingerstick) 124 mg/dL (70-99) 108 mg/dL (70-99) Test 11/02/20 11:44 Glucose (Fingerstick) 122 mg/dL (70-99) Medications Active Scripts Medications Dose Route/Sig Max Daily Dose Days Date Category Dose Instructions Lomotil Tablet (Diphenoxylate Hcl/Atropine) 1 Each Tablet 1 Tab PO TID 3 10/28/20 Rx Dicyclomine Hcl 20 Mg Tablet 1 Tab PO TID 10 10/28/20 Rx Zithromax (Azithromycin) 250 Mg Tablet 250 Mg PO DIRECTED 10/28/20 Rx Take 2 PO x 1 days Then take 1 PO q 24 hour for the next 4 days Doxycycline Hyclate 100 Mg Tablet 1 Tab PO BID 3 12/04/19 Rx Culturelle (Lactobacillus Rhamnosus Gg) 1 Each Cap.sprink 1 Cap PO BID 14 12/04/19 Rx Zofran (Ondansetron Hcl) 4 Mg Tablet 4 Mg PO Q8HRS PRN 12/02/19 Reported Tramadol Hcl 50 Mg Tablet 50 Mg PO Q6HRS PRN 12/02/19 Reported Tears Again (Polyvinyl Alcohol) 15 Ml Drops 2 Drop EACHEYE Q4HRS 30 12/02/19 Reported Polyvinyl Alcohol 15 Ml Drops 2 Drop EACHEYE Q4HRS 30 12/02/19 Reported Ropinirole Hcl 1 Mg Tablet 1 Mg PO BID 12/02/19 Reported Pantoprazole Sodium (Pantoprazole Sodium) 40 Mg Tablet.dr 40 Mg PO DAILYAC 12/02/19 Reported B-Complex Plus Vitamin C (B Complex With Vitamin C) 1 Each Tablet 1 Each PO DAILY 12/02/19 Reported Magnesium Oxide 400 Mg Tablet 400 Mg PO DAILY 12/02/19 Reported Loratadine 10 Mg Tablet 10 Mg PO DAILY 12/02/19 Reported Ketotifen Fumarate 5 Ml Drops 1 Drop EACHEYE BID 12/02/19 Reported Humalog (Insulin Lispro) 100 Unit/1 Ml Vial 100 Unit SQ BIDWMEALS 12/02/19 Reported 70 - 150 0 units 151 - 200 0 units 201 - 250 2 units 251 - 300 3 units 301 - 349 4 units if FSBS is under 70 or 350 and over call MD [guaifenesin Syrup] 10 Ml PO Q4HRS PRN 12/02/19 Reported Mucinex (Guaifenesin) 600 Mg Tablet.er 600 Mg PO BID 12/02/19 Reported Coreg (Carvedilol) 25 Mg Tablet 50 Mg PO BIDWMEALS 12/02/19 Reported Peridex (Chlorhexidine Gluconate) 15 Ml Mouthwash 15 Ml PO BID 30 12/02/19 Reported Swish in mouth for 30 seconds then spit out Calcium Carbonate 500 Mg Tablet 500 Mg PO Q4HRS 12/02/19 Reported Atorvastatin Calcium 10 Mg Tablet 10 Mg PO HS 12/02/19 Reported Acetaminophen 325 Mg Tablet 650 Mg PO Q6HRS 12/02/19 Reported Metformin Hcl 500 Mg Tablet 250 Mg PO BIDWMEALS 12/03/18 Reported Imodium A-D (Loperamide HCl) 2 Mg Capsule 2 Mg PO DAILY PRN 12/03/18 Reported Risperidone 0.5 Mg Tablet 0.5 Mg PO DAILY 03/21/18 Reported Risperidone 1 Mg Tablet 1 Tab PO QHS 03/21/18 Reported Levothyroxine Sodium 112 Mcg Tablet 1 Tab PO DAILY 03/21/18 Reported Advair 500-50 Diskus (Fluticasone/Salmeterol) 1 Each Disk.w.dev 1 Puff IH BID 03/21/18 Reported Nystatin 15 Gm Powder 1 Scott TP PRN BID PRN 03/21/18 Reported Clonazepam (Clonazepam) 0.5 Mg Tablet 1 Tab PO BID 09/30/16 Reported Montelukast Sodium Tablet (Montelukast Sodium) 10 Mg Tablet 1 Tab PO HS 02/18/16 Reported Gas-X (Simethicone) 80 Mg Tab.chew 160 Mg PO Q2HR PRN 02/18/16 Reported Gabapentin (Gabapentin) 100 Mg Capsule 100 Mg PO TID 02/18/16 Reported Comments CXR Impression: No significant change in left basilar aeration. No new infiltrates. Impression . IMPRESSION: 1. Acute on chronic hypoxemic hypercapnic respiratory failure. 2. Abnormal x-ray compatible with acute on chronic congestive heart failure, possibly COVID-19. 3. Abnormal x-ray. 4. COVID-19 person of suspect. 5. Acute metabolic toxic encephalopathy. 6. History of status post pacemaker defibrillator implantation. 7. Restless legs syndrome. 8. Schizoaffective disorder. 9. Acute on chronic systolic heart failure. 9. Non-ST segment elevation myocardial infarction. 10. Cardiomyopathy, ejection fraction on 11/2019 revealed EF of 45%. 11. Atrial fibrillation with V paced, currently underlying sinus rhythm. 12. Hyperlipidemia. 13. Hypothyroidism. 14. Fever, rule out bacteremia. 15. Sepsis. Plan . PLAN: Continue supplemental oxygen now oBIPAP 35%, continue BIPAP Extubated on 121/17, Follow CXR-- avoid sedative medications PRN haldol for agitation Continue ABX: currently on DOXY and zosyn Follow cardiology recs Continue Didilipes PT/OT/ST PPN for nutritional support, Failed swallow study DVT/GI PPX D/W RN and RT MIGUEL NOE MD Nov 02, 2020 13:18
[2020-11-02 15:01] VITALS: BP 166/77
--- NOTE | 2020-11-02 16:11 | PDOC ---
Infectious Disease Note Subjective Subjective pt is less responsive, on bipap now ROS ROS no n/v/d/fever Vital Sign Vital Signs Vital Signs Date Time Temp Pulse Resp B/P (MAP) Pulse Ox O2 Delivery O2 Flow Rate FiO2 11/02/20 15:01 99.2 93 26 166/77 (106) 97 BiPAP/CPAP 99.2 11/02/20 12:38 4.0 Physical Exam PHYSICAL EXAM GENERAL: , comfortable VITAL SIGNS: Stable. HEENT: Both pupils are round and reacting. No conjunctival lesion. No lesion in the mouth. NECK: Supple, no JVP, no lymphadenopathy. LUNGS: Clear. HEART: S1, S2 regular. ABDOMEN: Benign. EXTREMITIES: No edema or cyanosis. SKIN: Unremarkable. NEUROLOGIC: lethargic Labs Lab Laboratory Tests Test 11/01/20 16:30 11/01/20 18:36 11/02/20 07:30 11/02/20 07:35 O2 Saturation 95 % (92-99) 92 % (92-99) Arterial Blood pH 7.32 (7.35-7.45) 7.39 (7.35-7.45) Arterial Blood pCO2 at Patient Temp 66 mmHg (35-46) 58 mmHg (35-46) Arterial Blood pO2 at Patient Temp 81 mmHg (65-108) 62 mmHg (65-108) Arterial Blood HCO3 33 mmol/L (21-28) 35 mmol/L (21-28) Arterial Blood Base Excess 6 mmol/L (-3-3) 7 mmol/L (-3-3) FiO2 38 35% Glucose (Fingerstick) 124 mg/dL (70-99) 108 mg/dL (70-99) Test 11/02/20 11:44 Glucose (Fingerstick) 122 mg/dL (70-99) Micro BLOOD CULTURE Final GRAM POSITIVE COCCI IN CLUSTERS, SUGGESTIVE OF STAPH, IN 1 OF 4 BOTTLES, TWO SETS DRAWN. CALLED TO IRAIS MORALES RN ON CVICU AT 9:30 ON 10/31/20 DW MT SENT TO [facility] FOR FURTHER WORKUP. URINE CULTURE Preliminary Preliminary GREATER THAN 100,000 CFU/ML GRAM NEGATIVE RODS FINAL ID= [KLEBSIELLA PNEUMONIAE] on 10/31/20 at 0955 Testing Performed by: [address] [id number] For Inquires, the Physician may contact the Microbiology department at [phone] KLEBSIELLA PNEUMONIAE Unless otherwise specified, Testing Performed by: [address] [address] For Inquires, the Physician may contact the Microbiology department at [phone] Objective Assessment IMPRESSION: 1. Blood culture positive 1/4 gram-positive cocci, most likely to be contaminant. 2. Urinary tract infection, gram-negative mary. 3. Respiratory failure. 4. Pulmonary infiltrate, probably congestive heart failure, although respiratory infection cannot be ruled out since she was encephalopathic, aspiration is possible. 5. Encephalopathy. 6. Schizophrenia. 7. Congestive heart failure. 8. Hypertension. 9. Obesity. 10. COVID pending. Plan Plan of Care cont zosyn for now cxr and resp status has improved significantly, all sec to chf, cont supportive care JUNITO AMOS MD Nov 02, 2020 16:11
[2020-11-02 19:30] VITALS: BP 165/89
[2020-11-02] MEDS: FAMOTIDINE 20 MG TABLET. PO SCH (21:00)
[2020-11-02] MEDS: ATORVASTATIN CALCIUM 10 MG TABLET. PO SCH (21:00)
[2020-11-02] MEDS: risperiDONE 1 MG TABLET. PO SCH (21:00)
[2020-11-02 23:00] VITALS: BP 154/91
[2020-11-03] VITALS (30 sets, daily range): BP systolic 67–155; BP diastolic 46–97
[2020-11-03] MEDS: POLYVINYL ALCOHOL 1.4% OPHTH SOLUTION 15ML BOTTLE. OU SCH ×7 (00:52→23:27)
[2020-11-03] MEDS: PIPERACILLIN/TAZOBACTAM 4.5 GM in IV NORMAL SALINE 100ML 100 ML IV SCH ×5 (00:54→23:27)
[2020-11-03] MEDS: LABETALOL 20 MG/4 ML DISP.SYRIN. IVP PRN (00:56)
[2020-11-03] MEDS: HALOPERIDOL LACTATE 5 MG/ML VIAL. IVP PRN ×2 (03:08→10:33)
[2020-11-03] MEDS: CALCIUM CARBONATE 500 MG TABLET PO SCH ×7 (03:10→23:27)
[2020-11-03] MEDS: AMINO AC 3%/ELECTROLYTE/GLYCER 1,000 ML IV SCH ×2 (04:30→16:19)
[2020-11-03 04:35] LABS: BASE EXCESS ABG 3 mmol/L (-3-3); HCO3 ABG 28 mmol/L (21-28); PCO2 ABG 49 mmHg (35-46); PO2 ABG 68 mmHg (65-108); SAT O2 ABG 92 % (92-99)
--- NOTE | 2020-11-03 04:45 | NUR ---
Pt's RR 40-50 per minute on BIPAP without any improvement from haldol. HR 120's. Paged RT. Did ABGs. Results have improved from yesterday. Will continue to monitor.
[2020-11-03 04:49] LABS: FIO2 ABG 35
[2020-11-03] MEDS: ACETAMINOPHEN 325 MG TABLET. PO SCH ×5 (06:00→23:27)
[2020-11-03] MEDS: LEVOTHYROXINE 112 MCG TABLET PO SCH (06:00)
[2020-11-03] MEDS ORDERED: ALBUTEROL SULFATE 2.5 MG/3 ML NEBU. NEB PRN (06:00)
[2020-11-03] MEDS: HEPARIN for SUB-Q USE 5,000 UNIT/ML VIAL. SQ SCH ×3 (06:21→21:39)
[2020-11-03] MEDS: ASPIRIN CHEWABLE 81 MG TABLET. PO SCH (08:00)
[2020-11-03] MEDS: metFORMIN 500 MG TABLET PO SCH ×2 (08:00→15:58)
[2020-11-03] MEDS: POTASSIUM CHLORIDE 10 MEQ TABLET.ER. PO SCH (08:00)
[2020-11-03] MEDS: INSULIN LISPRO 300 UNITS/3 ML VIAL. SQ SCH ×3 (08:00→16:41)
[2020-11-03] MEDS: CARVEDILOL 12.5 MG TABLET. PO SCH (08:00)
[2020-11-03] MEDS: DICYCLOMINE HCL 10 MG CAPSULE PO SCH ×3 (08:17→21:00)
[2020-11-03] MEDS: clonazePAM 0.5 MG TABLET PO SCH ×2 (08:18→21:00)
[2020-11-03] MEDS: LACTOBACILLUS RHAMNOSUS GG 1 CAPSULE. PO SCH ×2 (08:18→21:00)
[2020-11-03] MEDS: FUROSEMIDE 40 MG TABLET. PO SCH (08:18)
[2020-11-03] MEDS: FOLIC ACID 1 MG TABLET. PO SCH (08:18)
[2020-11-03] MEDS: cloNIDine HCL 0.2 MG TABLET PO SCH ×3 (08:18→21:00)
[2020-11-03] MEDS: MULTIVITAMIN with MINERAL TABLET. PO SCH (08:19)
[2020-11-03] MEDS: GABAPENTIN 100 MG CAPSULE. PO SCH ×3 (08:19→21:00)
[2020-11-03] MEDS: DIPHENOXYLATE/ATROPINE TABLET. PO SCH ×3 (08:19→21:00)
[2020-11-03] MEDS: VITAMIN B COMPLEX TABLET. PO SCH (08:19)
[2020-11-03] MEDS: rOPINIRole 1 MG TABLET. PO SCH (08:19)
[2020-11-03] MEDS: MAGNESIUM OXIDE 400 MG TABLET PO SCH (08:19)
[2020-11-03] MEDS: POLYETHYLENE GLYCOL 3350 17 GM PACKET. PO SCH (08:19)
[2020-11-03] MEDS: buPROPion XL 150 MG TAB.ER.24H. PO SCH (08:20)
[2020-11-03] MEDS: CETIRIZINE HCL 10 MG TABLET. PO SCH (08:20)
--- NOTE | 2020-11-03 09:55 | PDOC ---
[facility] [facility] PROGRESS NOTE Date of Service DOS: DATE: 11/03/20 TIME: 09:54 Chief Complaint Chief Complaint COVID Positive Acute hypoxemic hypercapnic respiratory failure Acute on chronic heart failure Blood cultures positive Heart failure PMH [place] AICD in UTI Hypocalcemia Hypertriglyceridemia Anemia Low platelets Hypoglycemia (43) Elevated Cr History of Present Illness History of Present Illness 10/31 Patient seen and examined in ICU Patient sedated with propofol Possible COVID - pending under investigation Discussed with RN Chart reviewed Blood culture positive Vent settings as follows AC/18/450/40 11/01 Patient is COVID positive Patient seen and examined in ICU Patient sedated with propofol Discussed with RN Discussed with Rep[employer]r [employer] Chart reviewed Blood cultures are positive 11/02 Patient is COVID positive Patient seen and examined in ICU Propofol IV Discussed with RN Chart Reviewed Blood cultures positive 11/03/2020 Patient resting w/ NAD on Bipap Patient is COVID positive Patient seen and examined in ICU Propofol IV Discussed with RN Chart Reviewed Blood cultures positive Vitals/I&O Vitals/I&O: Vital Signs Date Time Temp Pulse Resp B/P (MAP) Pulse Ox O2 Delivery O2 Flow Rate FiO2 11/03/20 07:09 96 BiPAP/CPAP 11/03/20 07:00 99.2 107 44 116/68 (84) 99.2 11/02/20 12:38 4.0 I & O 11/02/20 11/02/20 11/03/20 15:00 23:00 07:00 Intake Total 0 ml 1100 ml Output Total 850 ml 525 ml Balance -850 ml 575 ml Physical Exam Physical Exam: GENERAL: , comfortable VITAL SIGNS: Stable. HEENT: Both pupils are round and reacting. No conjunctival lesion. No lesion in the mouth. NECK: Supple, no JVP, no lymphadenopathy. LUNGS: Clear. HEART: S1, S2 regular. ABDOMEN: Benign. EXTREMITIES: No edema or cyanosis. SKIN: Unremarkable. NEUROLOGIC: lethargic General: No acute distress, Other Heart: Regular rate Lungs: Clear Abdomen: Soft, Other Extremities: No edema Skin: No rashes, No breakdown, No significant lesion Labs Labs: Laboratory Tests Test 11/02/20 11:44 11/02/20 16:18 11/02/20 22:29 11/03/20 04:26 Glucose (Fingerstick) 122 mg/dL (70-99) 117 mg/dL (70-99) 147 mg/dL (70-99) O2 Saturation 92 % (92-99) Arterial Blood pH 7.38 (7.35-7.45) Arterial Blood pCO2 at Patient Temp 49 mmHg (35-46) Arterial Blood pO2 at Patient Temp 68 mmHg (65-108) Arterial Blood HCO3 28 mmol/L (21-28) Arterial Blood Base Excess 3 mmol/L (-3-3) FiO2 35 Test 11/03/20 07:36 Glucose (Fingerstick) 114 mg/dL (70-99) Assessment and Plan Assessmemt and Plan ASSESSMENT: COVID Positive Acute hypoxemic hypercapnic respiratory failure Acute on chronic heart failure Blood cultures positive Heart failure PMH GA AICD in UTI Hypocalcemia Hypertriglyceridemia Anemia Low platelets Hypoglycemia (43) Elevated Cr PLAN: Continue BiPAP Trend labs PPN Continue ICU monitoring PT/OT Speech therapy Home meds Full code DVT PPX Problems Medical Problems: (1) AMS (altered mental status) Status: Acute (2) Hypercapnia Status: Acute (3) Person under investigation for COVID-19 Status: Acute (4) Respiratory failure Status: Acute (5) UTI (urinary tract infection) Status: Acute Comment Review of Relevant I have reviewed the following items lucas (where applicable) has been applied. Medications: Current Medications Medications (Trade) Dose Ordered Sig/Eber Route PRN Reason Start Time Stop Time Status Last Admin Dose Admin Haloperidol Lactate (Haldol Inj) 5 mg PRN Q6HRS PRN IVP AGITATION 11/02/20 11:00 11/03/20 03:08 Labetalol HCl (Normodyne Iv Push) 20 mg PRN Q2HR PRN IVP HYPERTENSION 11/02/20 11:30 11/03/20 00:56 Justifications for Admission Other Justification SHAHNAZ SANTOS III DO Nov 03, 2020 09:55
--- NOTE | 2020-11-03 10:26 | RAD ---
AP portable chest radiograph 11/03/2020 Clinical History: Shortness of breath, wheezing and edema. An AP erect portable digital radiograph of the chest was obtained. Comparison study is dated 10/31/2020. A left-sided pacemaker/defibrillator is unchanged in position. The patient is rotated to the left. Th e ET and NG tubes have been removed. The cardiac silhouette is mildly enlarged. The thoracic aorta is tortuous. Atherosclerotic calcification of the thoracic aorta is seen. Left lower lobe atelectasis a nd/or infiltrate with probable small pleural effusion is seen, unchanged. No pneumothorax is noted. T he osseous structures are unchanged. Impression: 1. The ET and NG tubes have been removed. 2. Left lower lobe atelectasis and/or infiltrate with probable small left pleural effusion, unchanged . Electronically signed by: Leon Bui MD (11/03/2020 10:23 AM) [id number]
[2020-11-03 10:47] LABS: HEMATOCRIT 34.2 % (36.0-47.0); HEMOGLOBIN 10.8 g/dL (12.0-15.5); RED BLOOD COUNT 3.68 x10^6/uL (3.50-5.40); RED CELL DISTRIBUTION WIDTH 16.3 % (11.5-14.5); WHITE BLOOD COUNT 6.9 x10^3/uL (4.0-11.0)
[2020-11-03 10:53] LABS: CALCIUM 7.7 mg/dL (8.5-10.1); CREATININE 1.3 mg/dL (0.6-1.0); GFR 50.7; POTASSIUM 4.3 mmol/L (3.5-5.1)
--- NOTE | 2020-11-03 11:31 | PDOC ---
PULMONARY PROGRESS NOTES DATE: 11/03/20 TIME: 11:28 Subjective Now extubated on 10/31 Patient remains on BiPAP, intermittent use of nasal cannula She is tachycardic and tachypneic today Afebrile Vitals Vital Signs Date Time Temp Pulse Resp B/P (MAP) Pulse Ox O2 Delivery O2 Flow Rate FiO2 11/03/20 11:03 98.3 117 32 153/90 (111) 96 BiPAP/CPAP 98.3 11/02/20 12:38 4.0 General: No acute distress, Confused HEENT: Other Lungs: Wheezing Cardiovascular: S1, S2 Abdomen: Soft, Non-tender Extremities: Other Skin: Warm, Dry Labs Laboratory Tests Test 11/01/20 12:08 11/01/20 16:30 11/01/20 18:36 11/02/20 07:30 Glucose (Fingerstick) 102 mg/dL (70-99) 124 mg/dL (70-99) O2 Saturation 95 % (92-99) 92 % (92-99) Arterial Blood pH 7.32 (7.35-7.45) 7.39 (7.35-7.45) Arterial Blood pCO2 at Patient Temp 66 mmHg (35-46) 58 mmHg (35-46) Arterial Blood pO2 at Patient Temp 81 mmHg (65-108) 62 mmHg (65-108) Arterial Blood HCO3 33 mmol/L (21-28) 35 mmol/L (21-28) Arterial Blood Base Excess 6 mmol/L (-3-3) 7 mmol/L (-3-3) FiO2 38 35% Test 11/02/20 07:35 11/02/20 11:44 11/02/20 16:18 11/02/20 22:29 Glucose (Fingerstick) 108 mg/dL (70-99) 122 mg/dL (70-99) 117 mg/dL (70-99) 147 mg/dL (70-99) Test 11/03/20 04:26 11/03/20 07:36 11/03/20 10:10 11/03/20 10:44 O2 Saturation 92 % (92-99) Arterial Blood pH 7.38 (7.35-7.45) Arterial Blood pCO2 at Patient Temp 49 mmHg (35-46) Arterial Blood pO2 at Patient Temp 68 mmHg (65-108) Arterial Blood HCO3 28 mmol/L (21-28) Arterial Blood Base Excess 3 mmol/L (-3-3) FiO2 35 Glucose (Fingerstick) 114 mg/dL (70-99) 106 mg/dL (70-99) White Blood Count 6.9 x10^3/uL (4.0-11.0) Red Blood Count 3.68 x10^6/uL (3.50-5.40) Hemoglobin 10.8 g/dL (12.0-15.5) Hematocrit 34.2 % (36.0-47.0) Mean Corpuscular Volume 93 fL (79-100) Mean Corpuscular Hemoglobin 29 pg (25-35) Mean Corpuscular Hemoglobin Concent 32 g/dL (31-37) Red Cell Distribution Width 16.3 % (11.5-14.5) Platelet Count 135 x10^3/uL (140-400) Sodium Level 132 mmol/L (136-145) Potassium Level 4.3 mmol/L (3.5-5.1) Chloride Level 98 mmol/L (98-107) Carbon Dioxide Level 27 mmol/L (21-32) Anion Gap 7 (6-14) Blood Urea Nitrogen 17 mg/dL (7-20) Creatinine 1.3 mg/dL (0.6-1.0) Estimated GFR (Cockcroft-Gault) 50.7 Glucose Level 110 mg/dL (70-99) Calcium Level 7.7 mg/dL (8.5-10.1) Laboratory Tests Test 11/02/20 11:44 11/02/20 16:18 11/02/20 22:29 11/03/20 04:26 Glucose (Fingerstick) 122 mg/dL (70-99) 117 mg/dL (70-99) 147 mg/dL (70-99) O2 Saturation 92 % (92-99) Arterial Blood pH 7.38 (7.35-7.45) Arterial Blood pCO2 at Patient Temp 49 mmHg (35-46) Arterial Blood pO2 at Patient Temp 68 mmHg (65-108) Arterial Blood HCO3 28 mmol/L (21-28) Arterial Blood Base Excess 3 mmol/L (-3-3) FiO2 35 Test 11/03/20 07:36 11/03/20 10:10 11/03/20 10:44 Glucose (Fingerstick) 114 mg/dL (70-99) 106 mg/dL (70-99) White Blood Count 6.9 x10^3/uL (4.0-11.0) Red Blood Count 3.68 x10^6/uL (3.50-5.40) Hemoglobin 10.8 g/dL (12.0-15.5) Hematocrit 34.2 % (36.0-47.0) Mean Corpuscular Volume 93 fL (79-100) Mean Corpuscular Hemoglobin 29 pg (25-35) Mean Corpuscular Hemoglobin Concent 32 g/dL (31-37) Red Cell Distribution Width 16.3 % (11.5-14.5) Platelet Count 135 x10^3/uL (140-400) Sodium Level 132 mmol/L (136-145) Potassium Level 4.3 mmol/L (3.5-5.1) Chloride Level 98 mmol/L (98-107) Carbon Dioxide Level 27 mmol/L (21-32) Anion Gap 7 (6-14) Blood Urea Nitrogen 17 mg/dL (7-20) Creatinine 1.3 mg/dL (0.6-1.0) Estimated GFR (Cockcroft-Gault) 50.7 Glucose Level 110 mg/dL (70-99) Calcium Level 7.7 mg/dL (8.5-10.1) Medications Active Scripts Medications Dose Route/Sig Max Daily Dose Days Date Category Dose Instructions Lomotil Tablet (Diphenoxylate Hcl/Atropine) 1 Each Tablet 1 Tab PO TID 3 10/28/20 Rx Dicyclomine Hcl 20 Mg Tablet 1 Tab PO TID 10 10/28/20 Rx Zithromax (Azithromycin) 250 Mg Tablet 250 Mg PO DIRECTED 10/28/20 Rx Take 2 PO x 1 days Then take 1 PO q 24 hour for the next 4 days Doxycycline Hyclate 100 Mg Tablet 1 Tab PO BID 3 12/04/19 Rx Culturelle (Lactobacillus Rhamnosus Gg) 1 Each Cap.sprink 1 Cap PO BID 14 12/04/19 Rx Zofran (Ondansetron Hcl) 4 Mg Tablet 4 Mg PO Q8HRS PRN 12/02/19 Reported Tramadol Hcl 50 Mg Tablet 50 Mg PO Q6HRS PRN 12/02/19 Reported Tears Again (Polyvinyl Alcohol) 15 Ml Drops 2 Drop EACHEYE Q4HRS 30 12/02/19 Reported Polyvinyl Alcohol 15 Ml Drops 2 Drop EACHEYE Q4HRS 30 12/02/19 Reported Ropinirole Hcl 1 Mg Tablet 1 Mg PO BID 12/02/19 Reported Pantoprazole Sodium (Pantoprazole Sodium) 40 Mg Tablet.dr 40 Mg PO DAILYAC 12/02/19 Reported B-Complex Plus Vitamin C (B Complex With Vitamin C) 1 Each Tablet 1 Each PO DAILY 12/02/19 Reported Magnesium Oxide 400 Mg Tablet 400 Mg PO DAILY 12/02/19 Reported Loratadine 10 Mg Tablet 10 Mg PO DAILY 12/02/19 Reported Ketotifen Fumarate 5 Ml Drops 1 Drop EACHEYE BID 12/02/19 Reported Humalog (Insulin Lispro) 100 Unit/1 Ml Vial 100 Unit SQ BIDWMEALS 12/02/19 Reported 70 - 150 0 units 151 - 200 0 units 201 - 250 2 units 251 - 300 3 units 301 - 349 4 units if FSBS is under 70 or 350 and over call MD [guaifenesin Syrup] 10 Ml PO Q4HRS PRN 12/02/19 Reported Mucinex (Guaifenesin) 600 Mg Tablet.er 600 Mg PO BID 12/02/19 Reported Coreg (Carvedilol) 25 Mg Tablet 50 Mg PO BIDWMEALS 12/02/19 Reported Peridex (Chlorhexidine Gluconate) 15 Ml Mouthwash 15 Ml PO BID 30 12/02/19 Reported Swish in mouth for 30 seconds then spit out Calcium Carbonate 500 Mg Tablet 500 Mg PO Q4HRS 12/02/19 Reported Atorvastatin Calcium 10 Mg Tablet 10 Mg PO HS 12/02/19 Reported Acetaminophen 325 Mg Tablet 650 Mg PO Q6HRS 12/02/19 Reported Metformin Hcl 500 Mg Tablet 250 Mg PO BIDWMEALS 12/03/18 Reported Imodium A-D (Loperamide HCl) 2 Mg Capsule 2 Mg PO DAILY PRN 12/03/18 Reported Risperidone 0.5 Mg Tablet 0.5 Mg PO DAILY 03/21/18 Reported Risperidone 1 Mg Tablet 1 Tab PO QHS 03/21/18 Reported Levothyroxine Sodium 112 Mcg Tablet 1 Tab PO DAILY 03/21/18 Reported Advair 500-50 Diskus (Fluticasone/Salmeterol) 1 Each Disk.w.dev 1 Puff IH BID 03/21/18 Reported Nystatin 15 Gm Powder 1 Scott TP PRN BID PRN 03/21/18 Reported Clonazepam (Clonazepam) 0.5 Mg Tablet 1 Tab PO BID 09/30/16 Reported Montelukast Sodium Tablet (Montelukast Sodium) 10 Mg Tablet 1 Tab PO HS 02/18/16 Reported Gas-X (Simethicone) 80 Mg Tab.chew 160 Mg PO Q2HR PRN 02/18/16 Reported Gabapentin (Gabapentin) 100 Mg Capsule 100 Mg PO TID 02/18/16 Reported Comments CXR 11/03 Impression: 1. The ET and NG tubes have been removed. 2. Left lower lobe atelectasis and/or infiltrate with probable small left pleural effusion, unchanged. Impression . IMPRESSION: 1. Acute on chronic hypoxemic hypercapnic respiratory failure, now extubated on BIPAP 2. Abnormal x-ray compatible with acute on chronic congestive heart failure, possibly COVID-19. 3. Abnormal x-ray. 4. COVID-19 person of suspect. 5. Acute metabolic toxic encephalopathy. 6. History of status post pacemaker defibrillator implantation. 7. Restless legs syndrome. 8. Schizoaffective disorder. 9. Acute on chronic systolic heart failure. 9. Non-ST segment elevation myocardial infarction. 10. Cardiomyopathy, ejection fraction on 11/2019 revealed EF of 45%. 11. Atrial fibrillation with V paced, currently underlying sinus rhythm. 12. Hyperlipidemia. 13. Hypothyroidism. 14. Fever, rule out bacteremia. 15. Sepsis. Plan . PLAN: Continue supplemental oxygen now on BIPAP 35%, continue BIPAP , intermittent nasal cannula as tolerated keep oxygen saturations greater than 92% Extubated on , Follow CXR--chest x-ray today shows left lower lobe effusion, will obtain noncontrast CT to further assess effusion and possible need for thoracentesis avoid sedative medications PRN haldol for agitation Continue ABX per infectious disease: zosyn Follow cardiology recs Continue Diureses, switch Coreg and Lasix to IV as the patient is n.p.o. PT/OT/ST PPN for nutritional support, Failed swallow study DVT/GI PPX D/W RN and RT MIGUEL NOE MD Nov 03, 2020 11:31
[2020-11-03] MEDS ORDERED: IV NORMAL SALINE 500ML BAG 500 ML IV PRN (12:00)
[2020-11-03] MEDS ORDERED: ATROPINE 0.5 MG/5 ML DISP.SYRINGE. IV PRN (12:00)
[2020-11-03] MEDS: DEXMEDETOMIDINE 400 MCG in IV NORMAL SALINE 100ML 96 ML IV PRN (12:34)
[2020-11-03] MEDS: FUROSEMIDE 40 MG/4 ML VIAL. IVP SCH (12:36)
[2020-11-03] MEDS: METOPROLOL IV PUSH 5 MG/5 ML VIAL. IVP SCH ×3 (12:36→23:27)
[2020-11-03] MEDS: NOREPINEPHRINE VIAL 8 MG in IV DEXTROSE 5% 250 ML IV PRN (13:45)
--- NOTE | 2020-11-03 19:18 | NUR ---
Pt given IV lasix and IV lopressor at around 1300. Precedex started at 1310. Vitals at 1310 showed bp of 57/42. ICU nurse and ICU charge nurse immediately in room. Pt head of bed lowered below the heart. 500cc fluid bolus given. No improvement in BP. Pt started on Levo and precedex stopped. After approx 30 minutes of levo map >65 patient denies any complaints. Levo stopped. ICU nurse communicated with Dr. Tracy. No new orders at this time. Pt resting comfortable at this time tolerating bipap. Will continue to monitor and follow plan of care.
[2020-11-03] MEDS: risperiDONE 1 MG TABLET. PO SCH (21:00)
[2020-11-03] MEDS: FAMOTIDINE 20 MG TABLET. PO SCH (21:00)
[2020-11-03] MEDS: ATORVASTATIN CALCIUM 10 MG TABLET. PO SCH (21:00)
[2020-11-04] VITALS (19 sets, daily range): BP systolic 99–146; BP diastolic 55–87
[2020-11-04] MEDS: DEXMEDETOMIDINE 400 MCG in IV NORMAL SALINE 100ML 96 ML IV PRN ×2 (01:08→05:42)
[2020-11-04] MEDS: POLYVINYL ALCOHOL 1.4% OPHTH SOLUTION 15ML BOTTLE. OU SCH ×5 (04:00→20:15)
[2020-11-04] MEDS: CALCIUM CARBONATE 500 MG TABLET PO SCH ×7 (04:00→19:31)
[2020-11-04] MEDS: AMINO AC 3%/ELECTROLYTE/GLYCER 1,000 ML IV SCH ×3 (04:52→21:53)
[2020-11-04] MEDS: PIPERACILLIN/TAZOBACTAM 4.5 GM in IV NORMAL SALINE 100ML 100 ML IV SCH (05:10)
[2020-11-04] MEDS: METOPROLOL IV PUSH 5 MG/5 ML VIAL. IVP SCH (05:11)
[2020-11-04] MEDS: ACETAMINOPHEN 325 MG TABLET. PO SCH ×5 (05:41→19:32)
[2020-11-04] MEDS: LEVOTHYROXINE 112 MCG TABLET PO SCH ×2 (05:41→19:31)
[2020-11-04] MEDS: NOREPINEPHRINE VIAL 8 MG in IV DEXTROSE 5% 250 ML IV PRN (05:54)
[2020-11-04] MEDS: HEPARIN for SUB-Q USE 5,000 UNIT/ML VIAL. SQ SCH ×3 (06:09→20:23)
[2020-11-04] MEDS: POTASSIUM CHLORIDE 10 MEQ TABLET.ER. PO SCH (08:00)
[2020-11-04] MEDS: metFORMIN 500 MG TABLET PO SCH ×2 (08:00→14:13)
[2020-11-04] MEDS: INSULIN LISPRO 300 UNITS/3 ML VIAL. SQ SCH ×3 (08:00→17:00)
[2020-11-04] MEDS: ASPIRIN CHEWABLE 81 MG TABLET. PO SCH (08:00)
[2020-11-04] MEDS: DIPHENOXYLATE/ATROPINE TABLET. PO SCH ×3 (08:15→19:29)
[2020-11-04] MEDS: LACTOBACILLUS RHAMNOSUS GG 1 CAPSULE. PO SCH ×2 (08:15→19:29)
[2020-11-04] MEDS: clonazePAM 0.5 MG TABLET PO SCH ×2 (08:15→19:29)
[2020-11-04] MEDS: DICYCLOMINE HCL 10 MG CAPSULE PO SCH ×3 (08:15→19:28)
[2020-11-04] MEDS: FOLIC ACID 1 MG TABLET. PO SCH (08:15)
[2020-11-04] MEDS: cloNIDine HCL 0.2 MG TABLET PO SCH ×3 (08:15→19:28)
[2020-11-04] MEDS: MAGNESIUM OXIDE 400 MG TABLET PO SCH (08:15)
[2020-11-04] MEDS: VITAMIN B COMPLEX TABLET. PO SCH (08:15)
[2020-11-04] MEDS: rOPINIRole 1 MG TABLET. PO SCH (08:16)
[2020-11-04] MEDS: MULTIVITAMIN with MINERAL TABLET. PO SCH (08:16)
[2020-11-04] MEDS: GABAPENTIN 100 MG CAPSULE. PO SCH ×3 (08:16→19:29)
[2020-11-04] MEDS: CETIRIZINE HCL 10 MG TABLET. PO SCH (08:16)
[2020-11-04] MEDS: POLYETHYLENE GLYCOL 3350 17 GM PACKET. PO SCH (08:16)
[2020-11-04] MEDS: buPROPion XL 150 MG TAB.ER.24H. PO SCH (08:16)
[2020-11-04] MEDS: FUROSEMIDE 40 MG/4 ML VIAL. IVP SCH (08:32)
--- NOTE | 2020-11-04 08:35 | PDOC ---
PULMONARY PROGRESS NOTES DATE: 11/04/20 TIME: 08:35 Subjective Now extubated on 10/31 Patient remains on BiPAP, intermittent use of nasal cannula She is tachycardic and tachypneic today Afebrile Vitals Vital Signs Date Time Temp Pulse Resp B/P (MAP) Pulse Ox O2 Delivery O2 Flow Rate FiO2 11/04/20 07:25 98 BiPAP/CPAP 11/04/20 05:17 71 30 118/70 (86) 11/03/20 22:47 97.7 97.7 General: No acute distress, Confused HEENT: Other Lungs: Wheezing Cardiovascular: S1, S2 Abdomen: Soft, Non-tender Extremities: Other Skin: Warm, Dry Labs Laboratory Tests Test 11/02/20 11:44 11/02/20 16:18 11/02/20 22:29 11/03/20 04:26 Glucose (Fingerstick) 122 mg/dL (70-99) 117 mg/dL (70-99) 147 mg/dL (70-99) O2 Saturation 92 % (92-99) Arterial Blood pH 7.38 (7.35-7.45) Arterial Blood pCO2 at Patient Temp 49 mmHg (35-46) Arterial Blood pO2 at Patient Temp 68 mmHg (65-108) Arterial Blood HCO3 28 mmol/L (21-28) Arterial Blood Base Excess 3 mmol/L (-3-3) FiO2 35 Test 11/03/20 07:36 11/03/20 10:10 11/03/20 10:44 11/03/20 16:24 Glucose (Fingerstick) 114 mg/dL (70-99) 106 mg/dL (70-99) 131 mg/dL (70-99) White Blood Count 6.9 x10^3/uL (4.0-11.0) Red Blood Count 3.68 x10^6/uL (3.50-5.40) Hemoglobin 10.8 g/dL (12.0-15.5) Hematocrit 34.2 % (36.0-47.0) Mean Corpuscular Volume 93 fL (79-100) Mean Corpuscular Hemoglobin 29 pg (25-35) Mean Corpuscular Hemoglobin Concent 32 g/dL (31-37) Red Cell Distribution Width 16.3 % (11.5-14.5) Platelet Count 135 x10^3/uL (140-400) Sodium Level 132 mmol/L (136-145) Potassium Level 4.3 mmol/L (3.5-5.1) Chloride Level 98 mmol/L (98-107) Carbon Dioxide Level 27 mmol/L (21-32) Anion Gap 7 (6-14) Blood Urea Nitrogen 17 mg/dL (7-20) Creatinine 1.3 mg/dL (0.6-1.0) Estimated GFR (Cockcroft-Gault) 50.7 Glucose Level 110 mg/dL (70-99) Calcium Level 7.7 mg/dL (8.5-10.1) Test 11/03/20 21:32 Glucose (Fingerstick) 114 mg/dL (70-99) Laboratory Tests Test 11/03/20 10:10 11/03/20 10:44 11/03/20 16:24 11/03/20 21:32 White Blood Count 6.9 x10^3/uL (4.0-11.0) Red Blood Count 3.68 x10^6/uL (3.50-5.40) Hemoglobin 10.8 g/dL (12.0-15.5) Hematocrit 34.2 % (36.0-47.0) Mean Corpuscular Volume 93 fL (79-100) Mean Corpuscular Hemoglobin 29 pg (25-35) Mean Corpuscular Hemoglobin Concent 32 g/dL (31-37) Red Cell Distribution Width 16.3 % (11.5-14.5) Platelet Count 135 x10^3/uL (140-400) Sodium Level 132 mmol/L (136-145) Potassium Level 4.3 mmol/L (3.5-5.1) Chloride Level 98 mmol/L (98-107) Carbon Dioxide Level 27 mmol/L (21-32) Anion Gap 7 (6-14) Blood Urea Nitrogen 17 mg/dL (7-20) Creatinine 1.3 mg/dL (0.6-1.0) Estimated GFR (Cockcroft-Gault) 50.7 Glucose Level 110 mg/dL (70-99) Calcium Level 7.7 mg/dL (8.5-10.1) Glucose (Fingerstick) 106 mg/dL (70-99) 131 mg/dL (70-99) 114 mg/dL (70-99) Medications Active Scripts Medications Dose Route/Sig Max Daily Dose Days Date Category Dose Instructions Lomotil Tablet (Diphenoxylate Hcl/Atropine) 1 Each Tablet 1 Tab PO TID 3 10/28/20 Rx Dicyclomine Hcl 20 Mg Tablet 1 Tab PO TID 10 10/28/20 Rx Zithromax (Azithromycin) 250 Mg Tablet 250 Mg PO DIRECTED 10/28/20 Rx Take 2 PO x 1 days Then take 1 PO q 24 hour for the next 4 days Doxycycline Hyclate 100 Mg Tablet 1 Tab PO BID 3 12/04/19 Rx Culturelle (Lactobacillus Rhamnosus Gg) 1 Each Cap.sprink 1 Cap PO BID 14 12/04/19 Rx Zofran (Ondansetron Hcl) 4 Mg Tablet 4 Mg PO Q8HRS PRN 12/02/19 Reported Tramadol Hcl 50 Mg Tablet 50 Mg PO Q6HRS PRN 12/02/19 Reported Tears Again (Polyvinyl Alcohol) 15 Ml Drops 2 Drop EACHEYE Q4HRS 30 12/02/19 Reported Polyvinyl Alcohol 15 Ml Drops 2 Drop EACHEYE Q4HRS 30 12/02/19 Reported Ropinirole Hcl 1 Mg Tablet 1 Mg PO BID 12/02/19 Reported Pantoprazole Sodium (Pantoprazole Sodium) 40 Mg Tablet.dr 40 Mg PO DAILYAC 12/02/19 Reported B-Complex Plus Vitamin C (B Complex With Vitamin C) 1 Each Tablet 1 Each PO DAILY 12/02/19 Reported Magnesium Oxide 400 Mg Tablet 400 Mg PO DAILY 12/02/19 Reported Loratadine 10 Mg Tablet 10 Mg PO DAILY 12/02/19 Reported Ketotifen Fumarate 5 Ml Drops 1 Drop EACHEYE BID 12/02/19 Reported Humalog (Insulin Lispro) 100 Unit/1 Ml Vial 100 Unit SQ BIDWMEALS 12/02/19 Reported 70 - 150 0 units 151 - 200 0 units 201 - 250 2 units 251 - 300 3 units 301 - 349 4 units if FSBS is under 70 or 350 and over call MD [guaifenesin Syrup] 10 Ml PO Q4HRS PRN 12/02/19 Reported Mucinex (Guaifenesin) 600 Mg Tablet.er 600 Mg PO BID 12/02/19 Reported Coreg (Carvedilol) 25 Mg Tablet 50 Mg PO BIDWMEALS 12/02/19 Reported Peridex (Chlorhexidine Gluconate) 15 Ml Mouthwash 15 Ml PO BID 30 12/02/19 Reported Swish in mouth for 30 seconds then spit out Calcium Carbonate 500 Mg Tablet 500 Mg PO Q4HRS 12/02/19 Reported Atorvastatin Calcium 10 Mg Tablet 10 Mg PO HS 12/02/19 Reported Acetaminophen 325 Mg Tablet 650 Mg PO Q6HRS 12/02/19 Reported Metformin Hcl 500 Mg Tablet 250 Mg PO BIDWMEALS 12/03/18 Reported Imodium A-D (Loperamide HCl) 2 Mg Capsule 2 Mg PO DAILY PRN 12/03/18 Reported Risperidone 0.5 Mg Tablet 0.5 Mg PO DAILY 03/21/18 Reported Risperidone 1 Mg Tablet 1 Tab PO QHS 03/21/18 Reported Levothyroxine Sodium 112 Mcg Tablet 1 Tab PO DAILY 03/21/18 Reported Advair 500-50 Diskus (Fluticasone/Salmeterol) 1 Each Disk.w.dev 1 Puff IH BID 03/21/18 Reported Nystatin 15 Gm Powder 1 Scott TP PRN BID PRN 03/21/18 Reported Clonazepam (Clonazepam) 0.5 Mg Tablet 1 Tab PO BID 09/30/16 Reported Montelukast Sodium Tablet (Montelukast Sodium) 10 Mg Tablet 1 Tab PO HS 02/18/16 Reported Gas-X (Simethicone) 80 Mg Tab.chew 160 Mg PO Q2HR PRN 02/18/16 Reported Gabapentin (Gabapentin) 100 Mg Capsule 100 Mg PO TID 02/18/16 Reported Comments CXR 11/03 Impression: 1. The ET and NG tubes have been removed. 2. Left lower lobe atelectasis and/or infiltrate with probable small left pleural effusion, unchanged. Impression . IMPRESSION: 1. Acute on chronic hypoxemic hypercapnic respiratory failure, now extubated on BIPAP 2. Abnormal x-ray compatible with acute on chronic congestive heart failure, possibly COVID-19. 3. Abnormal x-ray. 4. COVID-19 person of suspect. 5. Acute metabolic toxic encephalopathy. 6. History of status post pacemaker defibrillator implantation. 7. Restless legs syndrome. 8. Schizoaffective disorder. 9. Acute on chronic systolic heart failure. 9. Non-ST segment elevation myocardial infarction. 10. Cardiomyopathy, ejection fraction on 11/2019 revealed EF of 45%. 11. Atrial fibrillation with V paced, currently underlying sinus rhythm. 12. Hyperlipidemia. 13. Hypothyroidism. 14. Fever, rule out bacteremia. 15. Sepsis. Plan . PLAN: Continue supplemental oxygen now on BIPAP 35%, continue BIPAP , intermittent nasal cannula as tolerated keep oxygen saturations greater than 92% Extubated on 121/17, Follow CXR--chest x-ray today shows left lower lobe effusion, will obtain noncontrast CT to further assess effusion and possible need for thoracentesis avoid sedative medications PRN haldol for agitation Continue ABX per infectious disease: zosyn Follow cardiology recs Continue Diureses, switch Coreg and Lasix to IV as the patient is n.p.o. PT/OT/ST PPN for nutritional support, Failed swallow study DVT/GI PPX D/W RN and RT MIGUEL NOE MD Nov 04, 2020 08:35
--- NOTE | 2020-11-04 08:37 | PDOC ---
[facility] [facility] PROGRESS NOTE Date of Service DOS: DATE: 11/04/20 TIME: 08:30 Chief Complaint Chief Complaint COVID Positive Acute hypoxemic hypercapnic respiratory failure Acute on chronic heart failure Blood cultures positive Heart failure PMH HI AICD in UTI Hypocalcemia Hypertriglyceridemia Anemia Low platelets Hypoglycemia (43) Elevated Cr History of Present Illness History of Present Illness 10/31 Patient seen and examined in ICU Patient sedated with propofol Possible COVID - pending under investigation Discussed with RN Chart reviewed Blood culture positive Vent settings as follows AC/18/450/40 11/01 Patient is COVID positive Patient seen and examined in ICU Patient sedated with propofol Discussed with RN Discussed with Fruit Grader Operator Chart reviewed Blood cultures are positive 11/02 Patient is COVID positive Patient seen and examined in ICU Propofol IV Discussed with RN Chart Reviewed Blood cultures positive 11/03/2020 Patient resting w/ NAD on Bipap Patient is COVID positive Patient seen and examined in ICU Propofol IV Discussed with RN Chart Reviewed Blood cultures positive 11/04/2020 Patient seen and evaluated. Tachypneic, afebrile. Still breathing on BiPAP. Continue IV Zosyn, positive blood cultures most likely contaminant. Continue diuresis. She is on Levophed and Precedex. Still with some agitation. CT chest pending to evaluate possible thoracentesis. Total time spent 35 minutes, >50% time spent reviewing charts, reviewing labs, discussing with RN and adoption social worker. Vitals/I&O Vitals/I&O: Vital Signs Date Time Temp Pulse Resp B/P (MAP) Pulse Ox O2 Delivery O2 Flow Rate FiO2 11/04/20 07:25 98 BiPAP/CPAP 11/04/20 05:17 71 30 118/70 (86) 11/03/20 22:47 97.7 97.7 I & O 11/03/20 11/03/20 11/04/20 15:00 23:00 07:00 Intake Total 950 ml 658 ml Output Total 500 ml 450 ml Balance 450 ml 208 ml Physical Exam Physical Exam: General: No acute distress, Other Heart: Regular rate Lungs: Wheezing Abdomen: Soft, Other Extremities: No edema Skin: No rashes, No breakdown, No significant lesion Labs Labs: Laboratory Tests Test 11/03/20 10:10 11/03/20 10:44 11/03/20 16:24 11/03/20 21:32 White Blood Count 6.9 x10^3/uL (4.0-11.0) Red Blood Count 3.68 x10^6/uL (3.50-5.40) Hemoglobin 10.8 g/dL (12.0-15.5) Hematocrit 34.2 % (36.0-47.0) Mean Corpuscular Volume 93 fL (79-100) Mean Corpuscular Hemoglobin 29 pg (25-35) Mean Corpuscular Hemoglobin Concent 32 g/dL (31-37) Red Cell Distribution Width 16.3 % (11.5-14.5) Platelet Count 135 x10^3/uL (140-400) Sodium Level 132 mmol/L (136-145) Potassium Level 4.3 mmol/L (3.5-5.1) Chloride Level 98 mmol/L (98-107) Carbon Dioxide Level 27 mmol/L (21-32) Anion Gap 7 (6-14) Blood Urea Nitrogen 17 mg/dL (7-20) Creatinine 1.3 mg/dL (0.6-1.0) Estimated GFR (Cockcroft-Gault) 50.7 Glucose Level 110 mg/dL (70-99) Calcium Level 7.7 mg/dL (8.5-10.1) Glucose (Fingerstick) 106 mg/dL (70-99) 131 mg/dL (70-99) 114 mg/dL (70-99) Assessment and Plan Assessmemt and Plan Problems Medical Problems: (1) AMS (altered mental status) Status: Acute (2) Hypercapnia Status: Acute (3) Person under investigation for COVID-19 Status: Acute (4) Respiratory failure Status: Acute (5) UTI (urinary tract infection) Status: Acute Comment Review of Relevant I have reviewed the following items lucas (where applicable) has been applied. Medications: Current Medications Medications (Trade) Dose Ordered Sig/Eber Route PRN Reason Start Time Stop Time Status Last Admin Dose Admin Metoprolol Tartrate (Lopressor Vial) 5 mg Q6HRS IVP 11/03/20 12:00 11/04/20 05:11 Furosemide (Lasix) 40 mg DAILY IVP 11/03/20 12:00 11/03/20 12:36 Dexmedetomidine HCl 400 mcg/ Sodium Chloride 100 ml @ 0 mls/hr CONT PRN IV PER PROTOCOL 11/03/20 12:00 11/04/20 05:42 Sodium Chloride 500 ml @ 500 mls/hr 1X PRN PRN IV SEE COMMENTS 11/03/20 12:00 11/03/20 13:34 Norepinephrine Bitartrate 8 mg/ Dextrose 258 ml @ 17.202 mls/ hr CONT PRN IV PER PROTOCOL 11/03/20 13:45 11/04/20 05:54 Justifications for Admission Other Justification STONEY TILLMAN MD Nov 04, 2020 08:37
--- NOTE | 2020-11-04 09:58 | PDOC ---
Infectious Disease Note Subjective: Subjective Pt remains on 4L O2 some loose bm per rn Vital Signs: Vital Signs Vital Signs Date Time Temp Pulse Resp B/P (MAP) Pulse Ox O2 Delivery O2 Flow Rate FiO2 11/04/20 08:00 Nasal Cannula 4.0 11/04/20 07:25 98 11/04/20 05:17 71 30 118/70 (86) 11/03/20 22:47 97.7 97.7 Physical Exam: PHYSICAL EXAM GENERAL: , comfortable VITAL SIGNS: Stable. HEENT: Both pupils are round and reacting. No conjunctival lesion. No lesion in the mouth. NECK: Supple, no JVP, no lymphadenopathy. LUNGS: Clear. HEART: S1, S2 regular. ABDOMEN: Benign. EXTREMITIES: No edema or cyanosis. SKIN: Unremarkable. NEUROLOGIC: lethargic Medications: Inpatient Meds: Current Medications Medications (Trade) Dose Ordered Sig/Eber Start Time Stop Time Status Last Admin Dose Admin Acetaminophen (Tylenol Supp) 650 mg PRN Q6HRS PRN 11/02/20 00:00 11/02/20 07:27 650 MG Acetaminophen (Tylenol) 650 mg Q6HRS 10/31/20 12:00 Albuterol Sulfate (Ventolin Neb Soln) 2.5 mg PRN Q6HRS PRN 11/03/20 06:00 Albuterol/ Ipratropium (Duoneb) 3 ml PRN Q4HRS PRN 11/02/20 07:00 11/02/20 07:03 DC Amino Acids/ Glycerin/ Electrolytes 1,000 ml @ 80 mls/hr [id number] 11/01/20 13:30 11/04/20 04:52 80 MLS/HR Aspirin (Aspirin Chewable) 81 mg DAILYWBKFT 10/31/20 08:00 11/01/20 08:41 81 MG Atorvastatin Calcium (Lipitor) 10 mg HS 10/31/20 21:00 10/31/20 20:06 10 MG Atropine Sulfate (ATROPINE 0.5mg SYRINGE) 0.5 mg PRN Q5MIN PRN 11/03/20 12:00 Budesonide (Pulmicort) 0.5 mg RTBID 10/31/20 20:00 11/01/20 13:52 DC Bupropion HCl (Wellbutrin Xl) 150 mg DAILY 10/31/20 12:00 11/01/20 08:42 150 MG Calcium Carbonate/ Glycine (Oscal) 500 mg Q4HRS 10/31/20 12:00 11/01/20 00:17 500 MG Carvedilol (Coreg) 12.5 mg BIDWMEALS 10/31/20 17:00 11/03/20 11:10 DC 11/01/20 08:43 12.5 MG Cetirizine HCl (ZyrTEC) 10 mg DAILY 11/01/20 09:00 11/01/20 08:42 10 MG Clonazepam (KlonoPIN) 0.5 mg BID 10/31/20 12:00 11/01/20 08:41 0.5 MG Clonidine HCl (Catapres) 0.2 mg TID 10/31/20 12:00 11/01/20 08:42 0.2 MG Dexmedetomidine HCl 400 mcg/ Sodium Chloride 100 ml @ 0 mls/hr CONT PRN 11/03/20 12:00 11/04/20 05:42 22.1 MLS/HR Dextrose (Dextrose 50%-Water Syringe) 12.5 gm PRN Q15MIN PRN 10/31/20 18:00 UNV Dicyclomine HCl (Bentyl) 20 mg TID 10/31/20 14:00 11/01/20 08:42 20 MG Diphenoxylate HCl/ Atropine (Lomotil) 1 tab TID 10/31/20 14:00 10/31/20 20:05 1 TAB Doxycycline Hyclate (Vibra-Tab) 100 mg BID 10/31/20 12:00 11/02/20 16:50 DC 11/01/20 08:43 100 MG Enoxaparin Sodium (Lovenox 120mg Syringe) 110 mg 1X ONCE 10/30/20 06:15 10/30/20 06:16 DC 10/30/20 06:27 110 MG Etomidate (Amidate) 20 mg STK-MED ONCE 10/30/20 10:43 10/30/20 10:43 DC Famotidine (Pepcid) 20 mg HS 10/31/20 21:00 10/31/20 20:05 20 MG Fentanyl Citrate (Fentanyl 2ml Vial) 50 mcg PRN Q2HR PRN 10/31/20 07:45 10/31/20 20:08 50 MCG Folic Acid (Folic Acid) 0.5 mg DAILY 10/31/20 12:00 10/31/20 13:06 0.5 MG Furosemide (Lasix) 40 mg DAILY 11/03/20 12:00 11/04/20 08:32 40 MG Gabapentin (Neurontin) 100 mg TID 10/31/20 14:00 11/01/20 08:41 100 MG Glycerin/ Hypromellose/ Polyethylene (Artificial Tears) 2 drop Q4HRS 10/31/20 16:00 11/04/20 04:00 2 DROP Guaifenesin (Robitussin) 200 mg PRN Q4HRS PRN 10/31/20 12:45 10/31/20 20:04 200 MG Haloperidol Lactate (Haldol Inj) 5 mg PRN Q6HRS PRN 11/02/20 11:00 11/03/20 10:33 5 MG Heparin Sodium (Porcine) (Heparin Sodium) 5,000 unit Q8HRS 10/30/20 22:00 11/04/20 06:09 5,000 UNIT Ibuprofen (Motrin) 400 mg PRN Q6HRS PRN 10/31/20 11:15 Insulin Human Lispro (HumaLOG) 0-5 UNITS TIDWMEALS 10/31/20 12:00 Insulin Human Regular (HumuLIN R VIAL) 100 unit BIDWMEALS 10/31/20 17:00 UNV Labetalol HCl (Normodyne Iv Push) 20 mg PRN Q2HR PRN 11/02/20 11:30 11/03/20 00:56 20 MG Lactobacillus Rhamnosus (Culturelle) 1 cap BID 10/31/20 12:00 10/31/20 20:05 1 CAP Levothyroxine Sodium (Synthroid) 112 mcg DAILY06 11/01/20 09:00 11/01/20 08:42 112 MCG Loperamide HCl (Imodium) 2 mg PRN DAILY PRN 10/31/20 11:15 Lorazepam (Ativan Inj) 2 mg PRN Q4HRS PRN 11/02/20 08:30 11/03/20 09:19 2 MG Lorazepam (Ativan) 0.5 mg PRN Q8HRS PRN 10/31/20 11:15 Magnesium Oxide (Magnesium Oxide) 400 mg DAILY 10/31/20 12:00 10/31/20 13:05 400 MG Metformin HCl (Glucophage) 250 mg BIDWMEALS 10/31/20 17:00 Metoprolol Tartrate (Lopressor Vial) 5 mg Q6HRS 11/03/20 12:00 11/04/20 09:21 DC 11/04/20 05:11 5 MG Midazolam HCl 100 mg/Sodium Chloride 100 ml @ 0 mls/hr ONCE ONCE 10/30/20 06:45 10/30/20 06:46 DC 10/30/20 07:10 1 MLS/HR Multivitamins (Thera M Plus) 1 tab DAILY 10/31/20 12:30 10/31/20 13:05 1 TAB Non-Formulary Medication (Fluticasone/ Salmeterol (Advair 500-50 Diskus)) 1 puff BID 10/31/20 21:00 UNV Non-Formulary Medication (Peg 400/ Hypromellose/ Glycerin (Artificial Tears Drops)) 1 drop QID 10/31/20 13:00 UNV Non-Formulary Medication (Polyvinyl Alcohol (Tears Again)) 2 drop Q4HRS 10/31/20 12:00 UNV Non-Formulary Medication (Risperidone ) 0.5 mg DAILY 11/01/20 09:00 UNV Norepinephrine Bitartrate 8 mg/ Dextrose 258 ml @ 17.202 mls/ hr CONT PRN 11/03/20 13:45 11/04/20 05:54 8.3 MLS/HR Nystatin (Nystop) 1 luis PRN BID PRN 10/31/20 11:15 Ondansetron HCl (Zofran Odt) 4 mg PRN Q8HRS PRN 10/31/20 12:30 Ondansetron HCl (Zofran) 4 mg PRN Q8HRS PRN 10/30/20 06:00 10/31/20 05:59 DC Piperacillin Sod/ Tazobactam Sod (Zosyn Per Pharmacy) 1 each PRN DAILY PRN 10/30/20 06:00 Piperacillin Sod/ Tazobactam Sod 3.375 gm/Sodium Chloride 50 ml @ 100 mls/hr 1X ONCE 10/30/20 04:45 10/30/20 05:14 DC 10/30/20 04:54 100 MLS/HR Piperacillin Sod/ Tazobactam Sod 4.5 gm/Sodium Chloride 100 ml @ 200 mls/hr Q6HRS 10/30/20 12:00 11/04/20 05:10 200 MLS/HR Polyethylene Glycol (miraLAX PACKET) 17 gm DAILY 10/31/20 12:00 Potassium Bicarbonate (Potassium Effervescent Tablet) 80 meq 1X ONCE 10/31/20 09:45 10/31/20 09:46 DC 10/31/20 13:20 80 MEQ Potassium Chloride (Klor-Con) 10 meq DAILYWBKFT 11/02/20 08:00 Propofol 100 ml @ 3.408 mls/ hr CONT PRN 10/30/20 09:00 10/31/20 12:07 3.408 MLS/HR Risperidone (RisperDAL) 1 mg QHS 10/31/20 21:00 11/01/20 08:41 1 MG Ropinirole HCl (Requip) 2 mg DAILY 11/01/20 09:00 11/01/20 08:53 2 MG Simethicone (Gas-X) 160 mg PRN Q2HR PRN 10/31/20 12:00 Sodium Chloride 500 ml @ 500 mls/hr 1X PRN PRN 11/03/20 12:00 11/03/20 13:34 500 MLS/HR Succinylcholine Chloride (Anectine) 200 mg STK-MED ONCE 10/30/20 10:43 10/30/20 10:44 DC Tramadol HCl (Ultram) 50 mg PRN Q6HRS PRN 10/31/20 11:15 Vancomycin HCl (Vanco Per Pharmacy) 1 each PRN DAILY PRN 10/30/20 11:00 10/31/20 11:11 DC 10/31/20 09:51 1 EACH Vancomycin HCl (Vancomycin Trough Level) 1 each 1X ONCE 11/01/20 12:30 10/31/20 13:36 DC Vancomycin HCl 1.75 gm/Sodium Chloride 500 ml @ 250 mls/hr Q24H 10/31/20 13:00 10/31/20 11:11 DC Vitamin B Complex (Dustin B) 1 tab DAILY 10/31/20 12:00 10/31/20 13:04 1 TAB Labs: Lab Laboratory Tests Test 11/03/20 10:10 11/03/20 10:44 11/03/20 16:24 11/03/20 21:32 White Blood Count 6.9 x10^3/uL (4.0-11.0) Red Blood Count 3.68 x10^6/uL (3.50-5.40) Hemoglobin 10.8 g/dL (12.0-15.5) Hematocrit 34.2 % (36.0-47.0) Mean Corpuscular Volume 93 fL (79-100) Mean Corpuscular Hemoglobin 29 pg (25-35) Mean Corpuscular Hemoglobin Concent 32 g/dL (31-37) Red Cell Distribution Width 16.3 % (11.5-14.5) Platelet Count 135 x10^3/uL (140-400) Sodium Level 132 mmol/L (136-145) Potassium Level 4.3 mmol/L (3.5-5.1) Chloride Level 98 mmol/L (98-107) Carbon Dioxide Level 27 mmol/L (21-32) Anion Gap 7 (6-14) Blood Urea Nitrogen 17 mg/dL (7-20) Creatinine 1.3 mg/dL (0.6-1.0) Estimated GFR (Cockcroft-Gault) 50.7 Glucose Level 110 mg/dL (70-99) Calcium Level 7.7 mg/dL (8.5-10.1) Glucose (Fingerstick) 106 mg/dL (70-99) 131 mg/dL (70-99) 114 mg/dL (70-99) Test 11/04/20 08:46 Glucose (Fingerstick) 121 mg/dL (70-99) Objective: Assessment: COVID positive Blood culture positive 1/4 gram-positive cocci, most likely to be contaminant. Urinary tract infection, Kleb Respiratory failure. Pulmonary infiltrate, Encephalopathy. Schizophrenia. Congestive heart failure. Hypertension. Obesity. Plan: Plan of Care KATY Landon f/u CT chest cont supportive care CARRIE AMOS MD Nov 04, 2020 09:58
--- NOTE | 2020-11-04 11:50 | PDOC ---
CARDIO Progress Notes Date and Time Date of Service 11/04/20 Time of Evaluation 1145 Subjective Subjective: No Chest Pain, No Palpitations, Other (no reported complaints ) Vitals Vitals Vital Signs Date Time Temp Pulse Resp B/P (MAP) Pulse Ox O2 Delivery O2 Flow Rate FiO2 11/04/20 11:00 76 30 99/55 (70) 99 Room Air 11/04/20 08:00 4.0 11/03/20 22:47 97.7 97.7 Weight Weight [ ] Input and Output Intake and Output Intake and Output 11/04/20 07:00 Intake Total 1608 ml Output Total 950 ml Balance 658 ml Intake Oral 0 ml IV Total 1608 ml Output Urine Total 950 ml # Bowel Movements 4 Laboratory Labs Laboratory Tests Test 11/03/20 16:24 11/03/20 21:32 11/04/20 08:46 Glucose (Fingerstick) 131 mg/dL (70-99) 114 mg/dL (70-99) 121 mg/dL (70-99) Microbiology Micro Microbiology 10/30/20 Blood Culture - Final, Complete 10/30/20 Urine Culture - Final, Complete 10/30/20 Antimicrobic Susceptibility - Final, Complete Physical Exam HEENT: Neck Supple W Full Motion Chest: Symmetric LUNGS: Other (on NC) Heart: RRR (SR wtih vpacing ) Abdomen: Other (soft ) Extremities: Other (trace LE edema) Neurology: alert, follow commands Assessment Assessment 1. Acute respiratory failure requiting intubation with a/c CHF and Covid PNA: s/p extubation 2. Acute on chronic systolic CHF; better compensated with diuresis 3. NSTEMI: peak trop 1. Most probable type II, demand ischemia 4. Cardiomyopathy: prior Ef at 45% 5. AFIB; v-paced with underlying SR 6. Hypertension; better 7. Hyperlipidemia; statin. High TG 8. Diabetes, II 9. Hypothyroidism; on replacement 10. Encephalopathy with underlying anxiety, depression, schizoaffective disorder. Recommendations Lasix therapy ASA, statin. Consider Vascepa upon DC Continue secondary prevention measures Echo outpt when recovered from COVID Lung optimization as per pulm Plan outpatient ischemic evaluation Supportive care Justicifation of Admission Dx: Justifications for Admission: Justification of Admission Dx: Yes MATY ROJAS APRN Nov 04, 2020 11:50
[2020-11-04] MEDS: HALOPERIDOL LACTATE 5 MG/ML VIAL. IVP PRN ×2 (12:47→20:15)
[2020-11-04] MEDS ORDERED: ALBUTEROL SULFATE 8GM INHALER. INH PRN (13:45)
[2020-11-04] MEDS ORDERED: METOPROLOL IV PUSH 5 MG/5 ML VIAL. IVP ONE (14:30)
--- NOTE | 2020-11-04 16:09 | RAD ---
EXAM: CT CHEST WITHOUT CONTRAST HISTORY: Pleural effusion, respiratory failure COMPARISON: CT chest 12/03/2019 TECHNIQUE: Helical CT of the chest performed without contrast. Coronal and sagittal reformats were o btained. One or more of the following individualized dose reduction techniques were utilized for this examinat ion: 1. Automated exposure control 2. Adjustment of the mA and/or kV according to patient size 3. Use of iterative reconstruction technique. FINDINGS: Heart and great vessels: The heart is enlarged. A pacemaker/AICD is noted. Minimal pericardial fluid, decreased from prior CT. Thoracic aorta is normal in caliber. Mediastinum and mumtaz: No lymphadenopathy. There are calcified right hilar lymph nodes. Lungs and pleura: There is increased confluent opacities in the left upper and lower lobes. There are mild scattered subpleural groundglass opacities in the right lung and mild perihilar opacities in th e right upper lobe. Calcified granuloma seen in the right upper lobe. Trace bilateral pleural effusio ns. Chest wall and axillae: Chest wall is unremarkable. No axillary lymphadenopathy. Upper abdomen: The nasogastric tube has been removed. There is mesh material in the upper anterior ab domen. Bones: No acute osseous abnormality. IMPRESSION: 1. Cardiomegaly. 2. Increased consolidative opacities in the left lung and scattered groundglass opacities in the rig ht lung are suspicious for pneumonia. Some of the opacities in the left upper lobe are chronic scarri ng or atelectasis present on prior exam. 3. New trace bilateral pleural effusions. No large or drainable pleural effusion. Electronically signed by: Renetta Edouard MD (11/04/2020 4:07 PM) [id number]
[2020-11-04] MEDS: ATORVASTATIN CALCIUM 10 MG TABLET. PO SCH (19:29)
[2020-11-04] MEDS: FAMOTIDINE 20 MG TABLET. PO SCH (19:29)
[2020-11-04] MEDS: risperiDONE 1 MG TABLET. PO SCH (19:30)
[2020-11-05] VITALS (12 sets, daily range): BP systolic 106–163; BP diastolic 65–94
[2020-11-05] MEDS: POLYVINYL ALCOHOL 1.4% OPHTH SOLUTION 15ML BOTTLE. OU SCH ×7 (00:24→22:47)
[2020-11-05] MEDS: HALOPERIDOL LACTATE 5 MG/ML VIAL. IVP PRN ×3 (03:10→18:42)
[2020-11-05] MEDS: HEPARIN for SUB-Q USE 5,000 UNIT/ML VIAL. SQ SCH ×3 (05:22→21:37)
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
[2020-11-05] MEDS: ASPIRIN CHEWABLE 81 MG TABLET. PO SCH (07:15)
[2020-11-05] MEDS: DICYCLOMINE HCL 10 MG CAPSULE PO SCH ×3 (07:15→20:59)
[2020-11-05] MEDS: CALCIUM CARBONATE 500 MG TABLET PO SCH ×5 (07:15→22:48)
[2020-11-05] MEDS: metFORMIN 500 MG TABLET PO SCH ×2 (07:15→16:15)
[2020-11-05] MEDS: cloNIDine HCL 0.2 MG TABLET PO SCH ×3 (07:15→20:59)
[2020-11-05] MEDS: POTASSIUM CHLORIDE 10 MEQ TABLET.ER. PO SCH (07:15)
[2020-11-05] MEDS: MULTIVITAMIN with MINERAL TABLET. PO SCH (07:16)
[2020-11-05] MEDS: MAGNESIUM OXIDE 400 MG TABLET PO SCH (07:16)
[2020-11-05] MEDS: clonazePAM 0.5 MG TABLET PO SCH ×2 (07:16→21:00)
[2020-11-05] MEDS: DIPHENOXYLATE/ATROPINE TABLET. PO SCH ×3 (07:16→21:00)
[2020-11-05] MEDS: rOPINIRole 1 MG TABLET. PO SCH (07:16)
[2020-11-05] MEDS: LACTOBACILLUS RHAMNOSUS GG 1 CAPSULE. PO SCH ×2 (07:16→20:59)
[2020-11-05] MEDS: GABAPENTIN 100 MG CAPSULE. PO SCH ×3 (07:16→21:00)
[2020-11-05] MEDS: VITAMIN B COMPLEX TABLET. PO SCH (07:16)
[2020-11-05] MEDS: buPROPion XL 150 MG TAB.ER.24H. PO SCH (07:16)
[2020-11-05] MEDS: POLYETHYLENE GLYCOL 3350 17 GM PACKET. PO SCH (07:16)
[2020-11-05] MEDS: FOLIC ACID 1 MG TABLET. PO SCH (07:16)
[2020-11-05] MEDS: CETIRIZINE HCL 10 MG TABLET. PO SCH (07:17)
[2020-11-05] MEDS: ACETAMINOPHEN 325 MG TABLET. PO SCH ×3 (07:17→22:48)
[2020-11-05] MEDS: INSULIN LISPRO 300 UNITS/3 ML VIAL. SQ SCH ×3 (08:00→17:00)
[2020-11-05] MEDS: DEXTROSE 50% 25 GM / 50ML DISP.SYRIN. IV PRN (08:30)
[2020-11-05] MEDS: DEXAMETHASONE SOD PHOS 4 MG/ML VIAL IVP SCH (08:30)
[2020-11-05] MEDS: METOPROLOL IV PUSH 5 MG/5 ML VIAL. IVP SCH ×3 (08:31→17:40)
--- NOTE | 2020-11-05 08:34 | NUR ---
Around 0730 patient had a run of 7 beats of VT, HR in the 130s. BILLY Champion with cardiology notified new orders received. IVP Lopressor given patient HR now in low 100's. Will continue to monitor. Patient is currently on Bipap, COVID positive.
[2020-11-05] MEDS ORDERED: DOXYCYCLINE HYCLATE 100 MG TABLET PO SCH (09:00)
--- NOTE | 2020-11-05 09:01 | PDOC ---
Infectious Disease Note Subjective: Subjective Pt back on bipap Remains anxious and tachycardic Vital Signs: Vital Signs Vital Signs Date Time Temp Pulse Resp B/P (MAP) Pulse Ox O2 Delivery O2 Flow Rate FiO2 11/05/20 08:31 130 160/89 11/05/20 02:32 26 93 BiPAP/CPAP 11/04/20 23:00 99.1 99.1 11/04/20 20:59 4.0 Physical Exam: PHYSICAL EXAM GENERAL: , comfortable on BiPAP HEENT: Both pupils are round and reacting. No conjunctival lesion. No lesion in the mouth. NECK: Supple, no JVP, no lymphadenopathy. LUNGS: Clear. HEART: S1, S2 regular. ABDOMEN: Soft bowel sounds present nontender nondistended EXTREMITIES: No edema or cyanosis. SKIN: Unremarkable. NEUROLOGIC: lethargic Medications: Inpatient Meds: Current Medications Medications (Trade) Dose Ordered Sig/Eber Start Time Stop Time Status Last Admin Dose Admin Acetaminophen (Tylenol Supp) 650 mg PRN Q6HRS PRN 11/02/20 00:00 11/02/20 07:27 650 MG Acetaminophen (Tylenol) 650 mg Q6HRS 10/31/20 12:00 Albuterol Sulfate (Ventolin Hfa) 1 puff PRN Q6HRS PRN 11/04/20 13:45 11/04/20 13:50 1 PUFF Albuterol Sulfate (Ventolin Neb Soln) 2.5 mg PRN Q6HRS PRN 11/03/20 06:00 Albuterol/ Ipratropium (Duoneb) 3 ml PRN Q4HRS PRN 11/02/20 07:00 11/02/20 07:03 DC Amino Acids/ Glycerin/ Electrolytes 1,000 ml @ 80 mls/hr [id number] 11/01/20 13:30 11/04/20 21:53 80 MLS/HR Aspirin (Aspirin Chewable) 81 mg DAILYWBKFT 10/31/20 08:00 11/01/20 08:41 81 MG Atorvastatin Calcium (Lipitor) 10 mg HS 10/31/20 21:00 10/31/20 20:06 10 MG Atropine Sulfate (ATROPINE 0.5mg SYRINGE) 0.5 mg PRN Q5MIN PRN 11/03/20 12:00 Budesonide (Pulmicort) 0.5 mg RTBID 10/31/20 20:00 11/01/20 13:52 DC Bupropion HCl (Wellbutrin Xl) 150 mg DAILY 10/31/20 12:00 11/01/20 08:42 150 MG Calcium Carbonate/ Glycine (Oscal) 500 mg Q4HRS 10/31/20 12:00 11/01/20 00:17 500 MG Carvedilol (Coreg) 12.5 mg BIDWMEALS 10/31/20 17:00 11/03/20 11:10 DC 11/01/20 08:43 12.5 MG Cetirizine HCl (ZyrTEC) 10 mg DAILY 11/01/20 09:00 11/01/20 08:42 10 MG Clonazepam (KlonoPIN) 0.5 mg BID 10/31/20 12:00 11/01/20 08:41 0.5 MG Clonidine HCl (Catapres) 0.2 mg TID 10/31/20 12:00 11/01/20 08:42 0.2 MG Dexamethasone Sodium Phosphate (Decadron) 6 mg DAILY 11/05/20 09:00 11/05/20 08:30 6 MG Dexmedetomidine HCl 400 mcg/ Sodium Chloride 100 ml @ 0 mls/hr CONT PRN 11/03/20 12:00 11/04/20 05:42 22.1 MLS/HR Dextrose (Dextrose 50%-Water Syringe) 12.5 gm PRN Q15MIN PRN 10/31/20 18:00 UNV Dicyclomine HCl (Bentyl) 20 mg TID 10/31/20 14:00 11/01/20 08:42 20 MG Diphenoxylate HCl/ Atropine (Lomotil) 1 tab TID 10/31/20 14:00 10/31/20 20:05 1 TAB Doxycycline Hyclate (Vibra-Tab) 100 mg BID 10/31/20 12:00 11/02/20 16:50 DC 11/01/20 08:43 100 MG Enoxaparin Sodium (Lovenox 120mg Syringe) 110 mg 1X ONCE 10/30/20 06:15 10/30/20 06:16 DC 10/30/20 06:27 110 MG Etomidate (Amidate) 20 mg STK-MED ONCE 10/30/20 10:43 10/30/20 10:43 DC Famotidine (Pepcid) 20 mg HS 10/31/20 21:00 10/31/20 20:05 20 MG Fentanyl Citrate (Fentanyl 2ml Vial) 50 mcg PRN Q2HR PRN 10/31/20 07:45 10/31/20 20:08 50 MCG Folic Acid (Folic Acid) 0.5 mg DAILY 10/31/20 12:00 10/31/20 13:06 0.5 MG Furosemide (Lasix) 40 mg DAILY 11/03/20 12:00 11/04/20 08:32 40 MG Gabapentin (Neurontin) 100 mg TID 10/31/20 14:00 11/01/20 08:41 100 MG Glycerin/ Hypromellose/ Polyethylene (Artificial Tears) 2 drop Q4HRS 10/31/20 16:00 11/05/20 04:48 2 DROP Guaifenesin (Robitussin) 200 mg PRN Q4HRS PRN 10/31/20 12:45 10/31/20 20:04 200 MG Haloperidol Lactate (Haldol Inj) 5 mg PRN Q6HRS PRN 11/02/20 11:00 11/05/20 08:30 5 MG Heparin Sodium (Porcine) (Heparin Sodium) 5,000 unit Q8HRS 10/30/20 22:00 11/05/20 05:22 5,000 UNIT Ibuprofen (Motrin) 400 mg PRN Q6HRS PRN 10/31/20 11:15 Insulin Human Lispro (HumaLOG) 0-5 UNITS TIDWMEALS 10/31/20 12:00 Insulin Human Regular (HumuLIN R VIAL) 100 unit BIDWMEALS 10/31/20 17:00 UNV Labetalol HCl (Normodyne Iv Push) 20 mg PRN Q2HR PRN 11/02/20 11:30 11/03/20 00:56 20 MG Lactobacillus Rhamnosus (Culturelle) 1 cap BID 10/31/20 12:00 10/31/20 20:05 1 CAP Levothyroxine Sodium (Synthroid) 112 mcg DAILY06 11/01/20 09:00 11/01/20 08:42 112 MCG Loperamide HCl (Imodium) 2 mg PRN DAILY PRN 10/31/20 11:15 Lorazepam (Ativan Inj) 2 mg PRN Q4HRS PRN 11/02/20 08:30 11/05/20 05:20 2 MG Lorazepam (Ativan) 0.5 mg PRN Q8HRS PRN 10/31/20 11:15 Magnesium Oxide (Magnesium Oxide) 400 mg DAILY 10/31/20 12:00 10/31/20 13:05 400 MG Metformin HCl (Glucophage) 250 mg BIDWMEALS 10/31/20 17:00 Metoprolol Tartrate (Lopressor Vial) 5 mg Q6HRS 11/05/20 08:15 11/05/20 08:31 5 MG Midazolam HCl 100 mg/Sodium Chloride 100 ml @ 0 mls/hr ONCE ONCE 10/30/20 06:45 10/30/20 06:46 DC 10/30/20 07:10 1 MLS/HR Multivitamins (Thera M Plus) 1 tab DAILY 10/31/20 12:30 10/31/20 13:05 1 TAB Non-Formulary Medication (Fluticasone/ Salmeterol (Advair 500-50 Diskus)) 1 puff BID 10/31/20 21:00 UNV Non-Formulary Medication (Peg 400/ Hypromellose/ Glycerin (Artificial Tears Drops)) 1 drop QID 10/31/20 13:00 UNV Non-Formulary Medication (Polyvinyl Alcohol (Tears Again)) 2 drop Q4HRS 10/31/20 12:00 UNV Non-Formulary Medication (Risperidone ) 0.5 mg DAILY 11/01/20 09:00 UNV Norepinephrine Bitartrate 8 mg/ Dextrose 258 ml @ 17.202 mls/ hr CONT PRN 11/03/20 13:45 11/04/20 05:54 8.3 MLS/HR Nystatin (Nystop) 1 luis PRN BID PRN 10/31/20 11:15 Ondansetron HCl (Zofran Odt) 4 mg PRN Q8HRS PRN 10/31/20 12:30 Ondansetron HCl (Zofran) 4 mg PRN Q8HRS PRN 10/30/20 06:00 10/31/20 05:59 DC Piperacillin Sod/ Tazobactam Sod (Zosyn Per Pharmacy) 1 each PRN DAILY PRN 10/30/20 06:00 Piperacillin Sod/ Tazobactam Sod 3.375 gm/Sodium Chloride 50 ml @ 100 mls/hr 1X ONCE 10/30/20 04:45 10/30/20 05:14 DC 10/30/20 04:54 100 MLS/HR Piperacillin Sod/ Tazobactam Sod 4.5 gm/Sodium Chloride 100 ml @ 200 mls/hr Q6HRS 10/30/20 12:00 11/04/20 09:59 DC 11/04/20 05:10 200 MLS/HR Polyethylene Glycol (miraLAX PACKET) 17 gm DAILY 10/31/20 12:00 Potassium Bicarbonate (Potassium Effervescent Tablet) 80 meq 1X ONCE 10/31/20 09:45 10/31/20 09:46 DC 10/31/20 13:20 80 MEQ Potassium Chloride (Klor-Con) 10 meq DAILYWBKFT 11/02/20 08:00 Propofol 100 ml @ 3.408 mls/ hr CONT PRN 10/30/20 09:00 10/31/20 12:07 3.408 MLS/HR Risperidone (RisperDAL) 1 mg QHS 10/31/20 21:00 11/01/20 08:41 1 MG Ropinirole HCl (Requip) 2 mg DAILY 11/01/20 09:00 11/01/20 08:53 2 MG Simethicone (Gas-X) 160 mg PRN Q2HR PRN 10/31/20 12:00 Sodium Chloride 500 ml @ 500 mls/hr 1X PRN PRN 11/03/20 12:00 11/03/20 13:34 500 MLS/HR Succinylcholine Chloride (Anectine) 200 mg STK-MED ONCE 10/30/20 10:43 10/30/20 10:44 DC Tramadol HCl (Ultram) 50 mg PRN Q6HRS PRN 10/31/20 11:15 Vancomycin HCl (Vanco Per Pharmacy) 1 each PRN DAILY PRN 10/30/20 11:00 10/31/20 11:11 DC 10/31/20 09:51 1 EACH Vancomycin HCl (Vancomycin Trough Level) 1 each 1X ONCE 11/01/20 12:30 10/31/20 13:36 DC Vancomycin HCl 1.75 gm/Sodium Chloride 500 ml @ 250 mls/hr Q24H 10/31/20 13:00 10/31/20 11:11 DC Vitamin B Complex (Dustin B) 1 tab DAILY 10/31/20 12:00 10/31/20 13:04 1 TAB Labs: Lab Laboratory Tests Test 11/04/20 12:16 11/04/20 20:03 11/05/20 07:49 11/05/20 07:55 Glucose (Fingerstick) 79 mg/dL (70-99) 78 mg/dL (70-99) 55 mg/dL (70-99) 182 mg/dL (70-99) Objective: Assessment: COVID positive Blood culture positive 1/4 gram-positive cocci, most likely to be contaminant. Urinary tract infection, Kleb Respiratory failure. Pulmonary infiltrate, Encephalopathy. Schizophrenia. Congestive heart failure. Hypertension. Obesity. Plan: Plan of Care Restart zosyn CT chest noted cont supportive care Maintain aspiration precaution Discussed with CARRIE HENSON MD Nov 05, 2020 09:01
[2020-11-05 09:06] LABS: BASO % 1 % (0-3); EOS % 1 % (0-3); HEMATOCRIT 31.2 % (36.0-47.0); HEMOGLOBIN 9.9 g/dL (12.0-15.5); LYMPH # 0.8 x10^3/uL (1.0-4.8); LYMPH % 15 % (24-48); MEAN CORPUSCULAR HEMOGLOBIN 29 pg (25-35); MEAN CORPUSCULAR HGB CONC 32 g/dL (31-37); MEAN CORPUSCULAR VOLUME 92 fL (79-100); MONO # 0.8 x10^3/uL (0.0-1.1); MONO % 15 % (0-9); NEUT # 3.8 x10^3/uL (1.8-7.7); NEUT % 69 % (31-73); PLATELET COUNT 139 x10^3/uL (140-400); RED BLOOD COUNT 3.37 x10^6/uL (3.50-5.40); WHITE BLOOD COUNT 5.5 x10^3/uL (4.0-11.0)
[2020-11-05 09:22] LABS: CALCIUM 7.6 mg/dL (8.5-10.1); GFR 19.3; POTASSIUM 4.3 mmol/L (3.5-5.1)
[2020-11-05 09:26] LABS: BASE EXCESS ABG -1 mmol/L (-3-3); HCO3 ABG 24 mmol/L (21-28); PCO2 ABG 44 mmHg (35-46); PO2 ABG 73 mmHg (65-108); SAT O2 ABG 93 % (92-99)
[2020-11-05 09:34] LABS: FIO2 ABG 30% BIPAP
--- NOTE | 2020-11-05 10:01 | PDOC ---
PULMONARY PROGRESS NOTES DATE: 11/05/20 TIME: 09:59 Subjective Now extubated on 10/31 Patient remains on BiPAP, intermittent use of nasal cannula She is tachycardic and tachypneic today Afebrile Vitals Vital Signs Date Time Temp Pulse Resp B/P (MAP) Pulse Ox O2 Delivery O2 Flow Rate FiO2 11/05/20 08:31 130 160/89 11/05/20 02:32 26 93 BiPAP/CPAP 11/04/20 23:00 99.1 99.1 11/04/20 20:59 4.0 General: No acute distress, Confused HEENT: Other Lungs: Wheezing Cardiovascular: S1, S2 Abdomen: Soft, Non-tender Extremities: Other Skin: Warm, Dry Labs Laboratory Tests Test 11/03/20 10:10 11/03/20 10:44 11/03/20 16:24 11/03/20 21:32 White Blood Count 6.9 x10^3/uL (4.0-11.0) Red Blood Count 3.68 x10^6/uL (3.50-5.40) Hemoglobin 10.8 g/dL (12.0-15.5) Hematocrit 34.2 % (36.0-47.0) Mean Corpuscular Volume 93 fL (79-100) Mean Corpuscular Hemoglobin 29 pg (25-35) Mean Corpuscular Hemoglobin Concent 32 g/dL (31-37) Red Cell Distribution Width 16.3 % (11.5-14.5) Platelet Count 135 x10^3/uL (140-400) Sodium Level 132 mmol/L (136-145) Potassium Level 4.3 mmol/L (3.5-5.1) Chloride Level 98 mmol/L (98-107) Carbon Dioxide Level 27 mmol/L (21-32) Anion Gap 7 (6-14) Blood Urea Nitrogen 17 mg/dL (7-20) Creatinine 1.3 mg/dL (0.6-1.0) Estimated GFR (Cockcroft-Gault) 50.7 Glucose Level 110 mg/dL (70-99) Calcium Level 7.7 mg/dL (8.5-10.1) Glucose (Fingerstick) 106 mg/dL (70-99) 131 mg/dL (70-99) 114 mg/dL (70-99) Test 11/04/20 08:46 11/04/20 12:16 11/04/20 20:03 11/05/20 06:29 Glucose (Fingerstick) 121 mg/dL (70-99) 79 mg/dL (70-99) 78 mg/dL (70-99) White Blood Count 5.5 x10^3/uL (4.0-11.0) Red Blood Count 3.37 x10^6/uL (3.50-5.40) Hemoglobin 9.9 g/dL (12.0-15.5) Hematocrit 31.2 % (36.0-47.0) Mean Corpuscular Volume 92 fL (79-100) Mean Corpuscular Hemoglobin 29 pg (25-35) Mean Corpuscular Hemoglobin Concent 32 g/dL (31-37) Red Cell Distribution Width 17.0 % (11.5-14.5) Platelet Count 139 x10^3/uL (140-400) Neutrophils (%) (Auto) 69 % (31-73) Lymphocytes (%) (Auto) 15 % (24-48) Monocytes (%) (Auto) 15 % (0-9) Eosinophils (%) (Auto) 1 % (0-3) Basophils (%) (Auto) 1 % (0-3) Neutrophils # (Auto) 3.8 x10^3/uL (1.8-7.7) Lymphocytes # (Auto) 0.8 x10^3/uL (1.0-4.8) Monocytes # (Auto) 0.8 x10^3/uL (0.0-1.1) Eosinophils # (Auto) 0.0 x10^3/uL (0.0-0.7) Basophils # (Auto) 0.0 x10^3/uL (0.0-0.2) Sodium Level 137 mmol/L (136-145) Potassium Level 4.3 mmol/L (3.5-5.1) Chloride Level 100 mmol/L (98-107) Carbon Dioxide Level 26 mmol/L (21-32) Anion Gap 11 (6-14) Blood Urea Nitrogen 39 mg/dL (7-20) Creatinine 3.0 mg/dL (0.6-1.0) Estimated GFR (Cockcroft-Gault) 19.3 Glucose Level 62 mg/dL (70-99) Calcium Level 7.6 mg/dL (8.5-10.1) Magnesium Level 2.6 mg/dL (1.8-2.4) Test 11/05/20 07:49 11/05/20 07:55 11/05/20 08:55 Glucose (Fingerstick) 55 mg/dL (70-99) 182 mg/dL (70-99) O2 Saturation 93 % (92-99) Arterial Blood pH 7.36 (7.35-7.45) Arterial Blood pCO2 at Patient Temp 44 mmHg (35-46) Arterial Blood pO2 at Patient Temp 73 mmHg (65-108) Arterial Blood HCO3 24 mmol/L (21-28) Arterial Blood Base Excess -1 mmol/L (-3-3) FiO2 30% bipap Laboratory Tests Test 11/04/20 12:16 11/04/20 20:03 11/05/20 06:29 11/05/20 07:49 Glucose (Fingerstick) 79 mg/dL (70-99) 78 mg/dL (70-99) 55 mg/dL (70-99) White Blood Count 5.5 x10^3/uL (4.0-11.0) Red Blood Count 3.37 x10^6/uL (3.50-5.40) Hemoglobin 9.9 g/dL (12.0-15.5) Hematocrit 31.2 % (36.0-47.0) Mean Corpuscular Volume 92 fL (79-100) Mean Corpuscular Hemoglobin 29 pg (25-35) Mean Corpuscular Hemoglobin Concent 32 g/dL (31-37) Red Cell Distribution Width 17.0 % (11.5-14.5) Platelet Count 139 x10^3/uL (140-400) Neutrophils (%) (Auto) 69 % (31-73) Lymphocytes (%) (Auto) 15 % (24-48) Monocytes (%) (Auto) 15 % (0-9) Eosinophils (%) (Auto) 1 % (0-3) Basophils (%) (Auto) 1 % (0-3) Neutrophils # (Auto) 3.8 x10^3/uL (1.8-7.7) Lymphocytes # (Auto) 0.8 x10^3/uL (1.0-4.8) Monocytes # (Auto) 0.8 x10^3/uL (0.0-1.1) Eosinophils # (Auto) 0.0 x10^3/uL (0.0-0.7) Basophils # (Auto) 0.0 x10^3/uL (0.0-0.2) Sodium Level 137 mmol/L (136-145) Potassium Level 4.3 mmol/L (3.5-5.1) Chloride Level 100 mmol/L (98-107) Carbon Dioxide Level 26 mmol/L (21-32) Anion Gap 11 (6-14) Blood Urea Nitrogen 39 mg/dL (7-20) Creatinine 3.0 mg/dL (0.6-1.0) Estimated GFR (Cockcroft-Gault) 19.3 Glucose Level 62 mg/dL (70-99) Calcium Level 7.6 mg/dL (8.5-10.1) Magnesium Level 2.6 mg/dL (1.8-2.4) Test 11/05/20 07:55 11/05/20 08:55 Glucose (Fingerstick) 182 mg/dL (70-99) O2 Saturation 93 % (92-99) Arterial Blood pH 7.36 (7.35-7.45) Arterial Blood pCO2 at Patient Temp 44 mmHg (35-46) Arterial Blood pO2 at Patient Temp 73 mmHg (65-108) Arterial Blood HCO3 24 mmol/L (21-28) Arterial Blood Base Excess -1 mmol/L (-3-3) FiO2 30% bipap Medications Active Scripts Medications Dose Route/Sig Max Daily Dose Days Date Category Dose Instructions Lomotil Tablet (Diphenoxylate Hcl/Atropine) 1 Each Tablet 1 Tab PO TID 3 10/28/20 Rx Dicyclomine Hcl 20 Mg Tablet 1 Tab PO TID 10 10/28/20 Rx Zithromax (Azithromycin) 250 Mg Tablet 250 Mg PO DIRECTED 10/28/20 Rx Take 2 PO x 1 days Then take 1 PO q 24 hour for the next 4 days Doxycycline Hyclate 100 Mg Tablet 1 Tab PO BID 3 12/04/19 Rx Culturelle (Lactobacillus Rhamnosus Gg) 1 Each Cap.sprink 1 Cap PO BID 14 12/04/19 Rx Zofran (Ondansetron Hcl) 4 Mg Tablet 4 Mg PO Q8HRS PRN 12/02/19 Reported Tramadol Hcl 50 Mg Tablet 50 Mg PO Q6HRS PRN 12/02/19 Reported Tears Again (Polyvinyl Alcohol) 15 Ml Drops 2 Drop EACHEYE Q4HRS 30 12/02/19 Reported Polyvinyl Alcohol 15 Ml Drops 2 Drop EACHEYE Q4HRS 30 12/02/19 Reported Ropinirole Hcl 1 Mg Tablet 1 Mg PO BID 12/02/19 Reported Pantoprazole Sodium (Pantoprazole Sodium) 40 Mg Tablet.dr 40 Mg PO DAILYAC 12/02/19 Reported B-Complex Plus Vitamin C (B Complex With Vitamin C) 1 Each Tablet 1 Each PO DAILY 12/02/19 Reported Magnesium Oxide 400 Mg Tablet 400 Mg PO DAILY 12/02/19 Reported Loratadine 10 Mg Tablet 10 Mg PO DAILY 12/02/19 Reported Ketotifen Fumarate 5 Ml Drops 1 Drop EACHEYE BID 12/02/19 Reported Humalog (Insulin Lispro) 100 Unit/1 Ml Vial 100 Unit SQ BIDWMEALS 12/02/19 Reported 70 - 150 0 units 151 - 200 0 units 201 - 250 2 units 251 - 300 3 units 301 - 349 4 units if FSBS is under 70 or 350 and over call MD [guaifenesin Syrup] 10 Ml PO Q4HRS PRN 12/02/19 Reported Mucinex (Guaifenesin) 600 Mg Tablet.er 600 Mg PO BID 12/02/19 Reported Coreg (Carvedilol) 25 Mg Tablet 50 Mg PO BIDWMEALS 12/02/19 Reported Peridex (Chlorhexidine Gluconate) 15 Ml Mouthwash 15 Ml PO BID 30 12/02/19 Reported Swish in mouth for 30 seconds then spit out Calcium Carbonate 500 Mg Tablet 500 Mg PO Q4HRS 12/02/19 Reported Atorvastatin Calcium 10 Mg Tablet 10 Mg PO HS 12/02/19 Reported Acetaminophen 325 Mg Tablet 650 Mg PO Q6HRS 12/02/19 Reported Metformin Hcl 500 Mg Tablet 250 Mg PO BIDWMEALS 12/03/18 Reported Imodium A-D (Loperamide HCl) 2 Mg Capsule 2 Mg PO DAILY PRN 12/03/18 Reported Risperidone 0.5 Mg Tablet 0.5 Mg PO DAILY 03/21/18 Reported Risperidone 1 Mg Tablet 1 Tab PO QHS 03/21/18 Reported Levothyroxine Sodium 112 Mcg Tablet 1 Tab PO DAILY 03/21/18 Reported Advair 500-50 Diskus (Fluticasone/Salmeterol) 1 Each Disk.w.dev 1 Puff IH BID 03/21/18 Reported Nystatin 15 Gm Powder 1 Scott TP PRN BID PRN 03/21/18 Reported Clonazepam (Clonazepam) 0.5 Mg Tablet 1 Tab PO BID 09/30/16 Reported Montelukast Sodium Tablet (Montelukast Sodium) 10 Mg Tablet 1 Tab PO HS 02/18/16 Reported Gas-X (Simethicone) 80 Mg Tab.chew 160 Mg PO Q2HR PRN 02/18/16 Reported Gabapentin (Gabapentin) 100 Mg Capsule 100 Mg PO TID 02/18/16 Reported Comments CXR 11/03 Impression: 1. The ET and NG tubes have been removed. 2. Left lower lobe atelectasis and/or infiltrate with probable small left pleural effusion, unchanged. ct chest 1. Cardiomegaly. 2. Increased consolidative opacities in the left lung and scattered groundglass opacities in the right lung are suspicious for pneumonia. Some of the opacities in the left upper lobe are chronic scarring or atelectasis present on prior exam. 3. New trace bilateral pleural effusions. No large or drainable pleural effusion. Electronically signed by: Renetta Edouard MD (11/04/2020 4:07 PM) [id number] Impression . IMPRESSION: 1. Acute on chronic hypoxemic hypercapnic respiratory failure, now extubated on BIPAP 2. Abnormal x-ray compatible with acute on chronic congestive heart failure,/ COVID-19. 3. Abnormal ct chest c/w COVID-19 PNEUMONIA/ ? BACTERIAL PNA 4. COVID-19 5. Acute metabolic toxic encephalopathy. 6. History of status post pacemaker defibrillator implantation. 7. Restless legs syndrome. 8. Schizoaffective disorder. 9. Acute on chronic systolic heart failure. 9. Non-ST segment elevation myocardial infarction. 10. Cardiomyopathy, ejection fraction on 11/2019 revealed EF of 45%. 11. Atrial fibrillation with V paced, currently underlying sinus rhythm. 12. Hyperlipidemia. 13. Hypothyroidism. 14. Fever, rule out bacteremia. 15. Sepsis. Plan . PLAN: Continue supplemental oxygen now on BIPAP 35%, continue BIPAP , intermittent nasal cannula as tolerated keep oxygen saturations greater than 92% Extubated on 121/, avoid sedative medications PRN haldol for agitation Continue ABX per infectious disease: zosyn Follow cardiology recs Continue Diureses, switch Coreg and Lasix to IV as the patient is n.p.o. PT/OT/ST PPN for nutritional support, Failed swallow study DVT/GI PPX will to discuss advance directives D/W RN and RT MERRY STOKES MD Nov 05, 2020 10:01
[2020-11-05] MEDS: FUROSEMIDE 40 MG/4 ML VIAL. IVP SCH (10:27)
[2020-11-05] MEDS: PIPERACILLIN/TAZOBACTAM 3.375 GM in IV NORMAL SALINE 50ML 50 ML IV SCH ×2 (12:17→17:40)
--- NOTE | 2020-11-05 13:17 | NUR ---
SS following up with discharge planning. SS reviewed pt chart and discussed with pt RN. Pt is currently on BIPAP at 35%. COVID19 positive. Pt on IV Zosyn and PPN. Pt is LTC resident from [facility], ; fax [phone]. Not ready. SS will continue to follow for discharge planning.
--- NOTE | 2020-11-05 13:42 | PDOC ---
CARDIO Progress Notes Date and Time Date of Service 11/05/20 Time of Evaluation 1130 Subjective Subjective: No Chest Pain, No Palpitations, Other (restless at time. ) Vitals Vitals Vital Signs Date Time Temp Pulse Resp B/P (MAP) Pulse Ox O2 Delivery O2 Flow Rate FiO2 11/05/20 12:20 95 BiPAP/CPAP 11/05/20 12:17 99 149/80 11/05/20 10:00 26 11/05/20 08:00 35.0 11/05/20 07:00 99.3 99.3 Weight Weight [ ] Input and Output Intake and Output Intake and Output 11/05/20 07:00 Intake Total 2000 ml Output Total 1000 ml Balance 1000 ml Intake Oral 0 ml IV Total 2000 ml Output Urine Total 1000 ml # Bowel Movements 3 Laboratory Labs Laboratory Tests Test 11/04/20 20:03 11/05/20 06:29 11/05/20 07:49 11/05/20 07:55 Glucose (Fingerstick) 78 mg/dL (70-99) 55 mg/dL (70-99) 182 mg/dL (70-99) White Blood Count 5.5 x10^3/uL (4.0-11.0) Red Blood Count 3.37 x10^6/uL (3.50-5.40) Hemoglobin 9.9 g/dL (12.0-15.5) Hematocrit 31.2 % (36.0-47.0) Mean Corpuscular Volume 92 fL (79-100) Mean Corpuscular Hemoglobin 29 pg (25-35) Mean Corpuscular Hemoglobin Concent 32 g/dL (31-37) Red Cell Distribution Width 17.0 % (11.5-14.5) Platelet Count 139 x10^3/uL (140-400) Neutrophils (%) (Auto) 69 % (31-73) Lymphocytes (%) (Auto) 15 % (24-48) Monocytes (%) (Auto) 15 % (0-9) Eosinophils (%) (Auto) 1 % (0-3) Basophils (%) (Auto) 1 % (0-3) Neutrophils # (Auto) 3.8 x10^3/uL (1.8-7.7) Lymphocytes # (Auto) 0.8 x10^3/uL (1.0-4.8) Monocytes # (Auto) 0.8 x10^3/uL (0.0-1.1) Eosinophils # (Auto) 0.0 x10^3/uL (0.0-0.7) Basophils # (Auto) 0.0 x10^3/uL (0.0-0.2) Sodium Level 137 mmol/L (136-145) Potassium Level 4.3 mmol/L (3.5-5.1) Chloride Level 100 mmol/L (98-107) Carbon Dioxide Level 26 mmol/L (21-32) Anion Gap 11 (6-14) Blood Urea Nitrogen 39 mg/dL (7-20) Creatinine 3.0 mg/dL (0.6-1.0) Estimated GFR (Cockcroft-Gault) 19.3 Glucose Level 62 mg/dL (70-99) Calcium Level 7.6 mg/dL (8.5-10.1) Magnesium Level 2.6 mg/dL (1.8-2.4) Test 11/05/20 08:55 11/05/20 12:24 O2 Saturation 93 % (92-99) Arterial Blood pH 7.36 (7.35-7.45) Arterial Blood pCO2 at Patient Temp 44 mmHg (35-46) Arterial Blood pO2 at Patient Temp 73 mmHg (65-108) Arterial Blood HCO3 24 mmol/L (21-28) Arterial Blood Base Excess -1 mmol/L (-3-3) FiO2 30% bipap Glucose (Fingerstick) 104 mg/dL (70-99) Microbiology Micro Microbiology 10/30/20 Blood Culture - Final, Complete 10/30/20 Urine Culture - Final, Complete 10/30/20 Antimicrobic Susceptibility - Final, Complete Physical Exam HEENT: Neck Supple W Full Motion Chest: Symmetric LUNGS: Other (on BiPAP) Heart: RRR (SR wtih vpacing ) Abdomen: Other (soft ) Extremities: Other (trace LE edema) Neurology: other (sleeping ) Assessment Assessment 1. Acute respiratory failure requiting intubation with a/c CHF and Covid PNA: s/p extubation 2. Acute on chronic systolic CHF; better compensated with diuresis 3. NSTEMI: peak trop 1. Most probable type II, demand ischemia 4. Cardiomyopathy: prior EF at 45% 5. PAFIB; noted with AFIB with RVR this am. Converted back to SR. presently v- paced with underlying SR 6. Hypertension; better 7. Hyperlipidemia; statin. High TG 8. Diabetes, II 9. Hypothyroidism; on replacement 10. Encephalopathy with underlying anxiety, depression, schizoaffective disorder. Recommendations Lasix therapy Add metoprolol for rate control Consider antiarrhythmic therapy is further paroxysms of AFIB noted ASA, statin. Consider Vascepa upon DC Secondary prevention measures Echo outpt when recovered from COVID Lung optimization as per pulm Plan outpatient ischemic evaluation Supportive care Justicifation of Admission Dx: Justifications for Admission: Justification of Admission Dx: Yes MATY ROJAS APRN Nov 05, 2020 13:42
[2020-11-05] MEDS: AMINO AC 3%/ELECTROLYTE/GLYCER 1,000 ML IV SCH (17:39)
[2020-11-05] MEDS: ATORVASTATIN CALCIUM 10 MG TABLET. PO SCH (21:00)
[2020-11-05] MEDS: FAMOTIDINE 20 MG TABLET. PO SCH (21:00)
[2020-11-05] MEDS: risperiDONE 1 MG TABLET. PO SCH (21:00)
[2020-11-06] VITALS (8 sets, daily range): BP systolic 136–176; BP diastolic 76–112
[2020-11-06] MEDS: METOPROLOL IV PUSH 5 MG/5 ML VIAL. IVP SCH ×5 (00:03→23:44)
[2020-11-06] MEDS: PIPERACILLIN/TAZOBACTAM 3.375 GM in IV NORMAL SALINE 50ML 50 ML IV SCH ×2 (00:04→06:00)
[2020-11-06] MEDS: HALOPERIDOL LACTATE 5 MG/ML VIAL. IVP PRN ×2 (01:12→18:08)
--- NOTE | 2020-11-06 01:41 | NUR ---
Rectal tube placed. Patient has had 4 liquid stools since shift change. Buttocks and between thighs are excoriated, and painful to patient. Luna cream placed. Pt tolerated procedure well. Will continue to monitor.
[2020-11-06] MEDS: CALCIUM CARBONATE 500 MG TABLET PO SCH ×6 (02:36→23:46)
[2020-11-06] MEDS: POLYVINYL ALCOHOL 1.4% OPHTH SOLUTION 15ML BOTTLE. OU SCH ×6 (02:36→23:46)
--- NOTE | 2020-11-06 05:47 | NUR ---
No IV access at this time. 3 nurses attempted a total of 6 times, nursing circus supervisor attempt x3, anesthesia attempt, all unsuccessful. Per Dr. Santo, ok to get PICC line if anesthesia is unable to obtain. Will notify nursing circus supervisor.
[2020-11-06] MEDS: LEVOTHYROXINE 112 MCG TABLET PO SCH (06:00)
[2020-11-06] MEDS: AMINO AC 3%/ELECTROLYTE/GLYCER 1,000 ML IV SCH ×2 (06:00→23:40)
[2020-11-06] MEDS: ACETAMINOPHEN 325 MG TABLET. PO SCH ×4 (06:00→23:45)
[2020-11-06] MEDS: HEPARIN for SUB-Q USE 5,000 UNIT/ML VIAL. SQ SCH ×3 (06:39→21:15)
[2020-11-06] MEDS: INSULIN LISPRO 300 UNITS/3 ML VIAL. SQ SCH ×3 (08:00→17:00)
[2020-11-06] MEDS: POTASSIUM CHLORIDE 10 MEQ TABLET.ER. PO SCH (08:00)
[2020-11-06] MEDS: ASPIRIN CHEWABLE 81 MG TABLET. PO SCH (08:00)
[2020-11-06] MEDS: metFORMIN 500 MG TABLET PO SCH ×2 (08:00→15:38)
[2020-11-06] MEDS: LACTOBACILLUS RHAMNOSUS GG 1 CAPSULE. PO SCH ×2 (08:46→21:10)
[2020-11-06] MEDS: DICYCLOMINE HCL 10 MG CAPSULE PO SCH ×3 (08:46→21:09)
[2020-11-06] MEDS: cloNIDine HCL 0.2 MG TABLET PO SCH ×3 (08:46→21:09)
[2020-11-06] MEDS: POLYETHYLENE GLYCOL 3350 17 GM PACKET. PO SCH (08:47)
[2020-11-06] MEDS: FOLIC ACID 1 MG TABLET. PO SCH (08:47)
[2020-11-06] MEDS: clonazePAM 0.5 MG TABLET PO SCH ×2 (08:47→21:10)
[2020-11-06] MEDS: VITAMIN B COMPLEX TABLET. PO SCH (08:47)
[2020-11-06] MEDS: MAGNESIUM OXIDE 400 MG TABLET PO SCH (08:47)
[2020-11-06] MEDS: MULTIVITAMIN with MINERAL TABLET. PO SCH (08:47)
[2020-11-06] MEDS: DIPHENOXYLATE/ATROPINE TABLET. PO SCH ×3 (08:47→21:10)
[2020-11-06] MEDS: GABAPENTIN 100 MG CAPSULE. PO SCH ×3 (08:47→21:10)
[2020-11-06] MEDS: rOPINIRole 1 MG TABLET. PO SCH (08:47)
[2020-11-06] MEDS: buPROPion XL 150 MG TAB.ER.24H. PO SCH (08:48)
[2020-11-06] MEDS: CETIRIZINE HCL 10 MG TABLET. PO SCH (08:48)
--- NOTE | 2020-11-06 08:59 | PDOC ---
Infectious Disease Note Subjective: Subjective Patient more alert this morning On O2 by nasal cannula Vital Signs: Vital Signs Vital Signs Date Time Temp Pulse Resp B/P (MAP) Pulse Ox O2 Delivery O2 Flow Rate FiO2 11/06/20 02:00 96 23 167/94 (118) 97 BiPAP/CPAP 11/05/20 20:18 2.0 11/05/20 19:00 97.2 97.2 Physical Exam: PHYSICAL EXAM GENERAL: Alert awake female HEENT: Both pupils are round and reacting. No conjunctival lesion. No lesion in the mouth. NECK: Supple, no JVP, no lymphadenopathy. LUNGS: Clear. HEART: S1, S2 regular. ABDOMEN: Soft bowel sounds present nontender nondistended Fecal tube present EXTREMITIES: No edema or cyanosis. SKIN: Unremarkable. NEUROLOGIC: Alert awake Medications: Inpatient Meds: Current Medications Medications (Trade) Dose Ordered Sig/Eber Start Time Stop Time Status Last Admin Dose Admin Acetaminophen (Tylenol Supp) 650 mg PRN Q6HRS PRN 11/02/20 00:00 11/02/20 07:27 650 MG Acetaminophen (Tylenol) 650 mg Q6HRS 10/31/20 12:00 Albuterol Sulfate (Ventolin Hfa) 1 puff PRN Q6HRS PRN 11/04/20 13:45 11/04/20 13:50 1 PUFF Albuterol Sulfate (Ventolin Neb Soln) 2.5 mg PRN Q6HRS PRN 11/03/20 06:00 Albuterol/ Ipratropium (Duoneb) 3 ml PRN Q4HRS PRN 11/02/20 07:00 11/02/20 07:03 DC Amino Acids/ Glycerin/ Electrolytes 1,000 ml @ 80 mls/hr [id number] 11/01/20 13:30 11/05/20 17:39 80 MLS/HR Aspirin (Aspirin Chewable) 81 mg [id number] 10/31/20 08:00 11/01/20 08:41 81 MG Atorvastatin Calcium (Lipitor) 10 mg HS 10/31/20 21:00 10/31/20 20:06 10 MG Atropine Sulfate (ATROPINE 0.5mg SYRINGE) 0.5 mg PRN Q5MIN PRN 11/03/20 12:00 Budesonide (Pulmicort) 0.5 mg RTBID 10/31/20 20:00 11/01/20 13:52 DC Bupropion HCl (Wellbutrin Xl) 150 mg DAILY 10/31/20 12:00 11/01/20 08:42 150 MG Calcium Carbonate/ Glycine (Oscal) 500 mg Q4HRS 10/31/20 12:00 11/01/20 00:17 500 MG Carvedilol (Coreg) 12.5 mg BIDWMEALS 10/31/20 17:00 11/03/20 11:10 DC 11/01/20 08:43 12.5 MG Cetirizine HCl (ZyrTEC) 10 mg DAILY 11/01/20 09:00 11/01/20 08:42 10 MG Clonazepam (KlonoPIN) 0.5 mg BID 10/31/20 12:00 11/01/20 08:41 0.5 MG Clonidine HCl (Catapres) 0.2 mg TID 10/31/20 12:00 11/01/20 08:42 0.2 MG Dexamethasone Sodium Phosphate (Decadron) 6 mg DAILY 11/05/20 09:00 11/05/20 08:30 6 MG Dexmedetomidine HCl 400 mcg/ Sodium Chloride 100 ml @ 0 mls/hr CONT PRN 11/03/20 12:00 11/04/20 05:42 22.1 MLS/HR Dextrose (Dextrose 50%-Water Syringe) 12.5 gm PRN Q15MIN PRN 10/31/20 18:00 UNV Dicyclomine HCl (Bentyl) 20 mg TID 10/31/20 14:00 11/01/20 08:42 20 MG Diphenoxylate HCl/ Atropine (Lomotil) 1 tab TID 10/31/20 14:00 10/31/20 20:05 1 TAB Doxycycline Hyclate (Vibra-Tab) 100 mg BID 11/05/20 09:00 11/05/20 09:43 DC Enoxaparin Sodium (Lovenox 120mg Syringe) 110 mg 1X ONCE 10/30/20 06:15 10/30/20 06:16 DC 10/30/20 06:27 110 MG Etomidate (Amidate) 20 mg STK-MED ONCE 10/30/20 10:43 10/30/20 10:43 DC Famotidine (Pepcid) 20 mg HS 12/17/20 21:00 10/31/20 20:05 20 MG Fentanyl Citrate (Fentanyl 2ml Vial) 50 mcg PRN Q2HR PRN 10/31/20 07:45 10/31/20 20:08 50 MCG Folic Acid (Folic Acid) 0.5 mg DAILY 10/31/20 12:00 10/31/20 13:06 0.5 MG Furosemide (Lasix) 40 mg DAILY 11/03/20 12:00 11/05/20 10:27 40 MG Gabapentin (Neurontin) 100 mg TID 10/31/20 14:00 11/01/20 08:41 100 MG Glycerin/ Hypromellose/ Polyethylene (Artificial Tears) 2 drop Q4HRS 10/31/20 16:00 11/06/20 08:00 2 DROP Guaifenesin (Robitussin) 200 mg PRN Q4HRS PRN 10/31/20 12:45 10/31/20 20:04 200 MG Haloperidol Lactate (Haldol Inj) 5 mg PRN Q6HRS PRN 11/02/20 11:00 11/06/20 01:12 5 MG Heparin Sodium (Porcine) (Heparin Sodium) 5,000 unit Q8HRS 10/30/20 22:00 11/06/20 06:39 5,000 UNIT Ibuprofen (Motrin) 400 mg PRN Q6HRS PRN 10/31/20 11:15 Insulin Human Lispro (HumaLOG) 0-5 UNITS TIDWMEALS 10/31/20 12:00 Insulin Human Regular (HumuLIN R VIAL) 100 unit BIDWMEALS 10/31/20 17:00 UNV Labetalol HCl (Normodyne Iv Push) 20 mg PRN Q2HR PRN 11/02/20 11:30 11/03/20 00:56 20 MG Lactobacillus Rhamnosus (Culturelle) 1 cap BID 10/31/20 12:00 10/31/20 20:05 1 CAP Levothyroxine Sodium (Synthroid) 112 mcg DAILY06 11/01/20 09:00 11/01/20 08:42 112 MCG Loperamide HCl (Imodium) 2 mg PRN DAILY PRN 10/31/20 11:15 Lorazepam (Ativan Inj) 2 mg PRN Q4HRS PRN 11/02/20 08:30 11/05/20 05:20 2 MG Lorazepam (Ativan) 0.5 mg PRN Q8HRS PRN 10/31/20 11:15 Magnesium Oxide (Magnesium Oxide) 400 mg DAILY 10/31/20 12:00 10/31/20 13:05 400 MG Metformin HCl (Glucophage) 250 mg BIDWMEALS 10/31/20 17:00 Metoprolol Tartrate (Lopressor Vial) 5 mg Q6HRS 11/05/20 08:15 11/06/20 00:03 5 MG Midazolam HCl 100 mg/Sodium Chloride 100 ml @ 0 mls/hr ONCE ONCE 10/30/20 06:45 10/30/20 06:46 DC 10/30/20 07:10 1 MLS/HR Multivitamins (Thera M Plus) 1 tab DAILY 10/31/20 12:30 10/31/20 13:05 1 TAB Non-Formulary Medication (Fluticasone/ Salmeterol (Advair 500-50 Diskus)) 1 puff BID 10/31/20 21:00 UNV Non-Formulary Medication (Peg 400/ Hypromellose/ Glycerin (Artificial Tears Drops)) 1 drop QID 10/31/20 13:00 UNV Non-Formulary Medication (Polyvinyl Alcohol (Tears Again)) 2 drop Q4HRS 10/31/20 12:00 UNV Non-Formulary Medication (Risperidone ) 0.5 mg DAILY 11/01/20 09:00 UNV Norepinephrine Bitartrate 8 mg/ Dextrose 258 ml @ 17.202 mls/ hr CONT PRN 11/03/20 13:45 11/04/20 05:54 8.3 MLS/HR Nystatin (Nystop) 1 luis PRN BID PRN 10/31/20 11:15 Ondansetron HCl (Zofran Odt) 4 mg PRN Q8HRS PRN 10/31/20 12:30 Ondansetron HCl (Zofran) 4 mg PRN Q8HRS PRN 10/30/20 06:00 10/31/20 05:59 DC Piperacillin Sod/ Tazobactam Sod (Zosyn Per Pharmacy) 1 each PRN DAILY PRN 10/30/20 06:00 Piperacillin Sod/ Tazobactam Sod 3.375 gm/Sodium Chloride 50 ml @ 100 mls/hr Q6HRS 11/05/20 12:00 11/06/20 00:04 100 MLS/HR Piperacillin Sod/ Tazobactam Sod 4.5 gm/Sodium Chloride 100 ml @ 200 mls/hr Q6HRS 10/30/20 12:00 11/04/20 09:59 DC 11/04/20 05:10 200 MLS/HR Polyethylene Glycol (miraLAX PACKET) 17 gm DAILY 10/31/20 12:00 Potassium Bicarbonate (Potassium Effervescent Tablet) 80 meq 1X ONCE 10/31/20 09:45 10/31/20 09:46 DC 10/31/20 13:20 80 MEQ Potassium Chloride (Klor-Con) 10 meq DAILYWBKFT 11/02/20 08:00 Propofol 100 ml @ 3.408 mls/ hr CONT PRN 10/30/20 09:00 10/31/20 12:07 3.408 MLS/HR Risperidone (RisperDAL) 1 mg QHS 10/31/20 21:00 11/01/20 08:41 1 MG Ropinirole HCl (Requip) 2 mg DAILY 11/01/20 09:00 11/01/20 08:53 2 MG Simethicone (Gas-X) 160 mg PRN Q2HR PRN 10/31/20 12:00 Sodium Chloride 500 ml @ 500 mls/hr 1X PRN PRN 11/03/20 12:00 11/03/20 13:34 500 MLS/HR Succinylcholine Chloride (Anectine) 200 mg STK-MED ONCE 10/30/20 10:43 10/30/20 10:44 DC Tramadol HCl (Ultram) 50 mg PRN Q6HRS PRN 10/31/20 11:15 Vancomycin HCl (Vanco Per Pharmacy) 1 each PRN DAILY PRN 10/30/20 11:00 10/31/20 11:11 DC 10/31/20 09:51 1 EACH Vancomycin HCl (Vancomycin Trough Level) 1 each 1X ONCE 11/01/20 12:30 10/31/20 13:36 DC Vancomycin HCl 1.75 gm/Sodium Chloride 500 ml @ 250 mls/hr Q24H 10/31/20 13:00 12/17/20 11:11 DC Vitamin B Complex (Dustin B) 1 tab DAILY 10/31/20 12:00 10/31/20 13:04 1 TAB Labs: Lab Laboratory Tests Test 11/05/20 12:24 11/05/20 16:57 11/06/20 08:18 Glucose (Fingerstick) 104 mg/dL (70-99) 132 mg/dL (70-99) 94 mg/dL (70-99) Objective: Assessment: COVID positive Blood culture positive 1/4 gram-positive cocci, most likely to be contaminant. Urinary tract infection, Kleb Respiratory failure. Pulmonary infiltrate, Encephalopathy. Schizophrenia. Congestive heart failure. Hypertension. Obesity. Plan: Plan of Care Discontinue Zosyn P.o. Augmentin if swallow eval remains negative Awaiting swallow eval CT chest noted cont supportive care Maintain aspiration precaution Discussed with CARRIE HENSON MD Nov 06, 2020 08:59
--- NOTE | 2020-11-06 09:41 | PDOC ---
PULMONARY PROGRESS NOTES DATE: 11/06/20 TIME: 09:39 Subjective Now extubated on 10/31 Patient remains on/off BiPAP, intermittent use of nasal cannula Afebrile Vitals Vital Signs Date Time Temp Pulse Resp B/P (MAP) Pulse Ox O2 Delivery O2 Flow Rate FiO2 11/06/20 02:00 96 23 167/94 (118) 97 BiPAP/CPAP 11/05/20 20:18 2.0 11/05/20 19:00 97.2 97.2 General: No acute distress Lungs: Clear Cardiovascular: S1, S2 Abdomen: Soft, Non-tender Extremities: Other Skin: Warm, Dry Labs Laboratory Tests Test 11/04/20 12:16 11/04/20 20:03 11/05/20 06:29 11/05/20 07:49 Glucose (Fingerstick) 79 mg/dL (70-99) 78 mg/dL (70-99) 55 mg/dL (70-99) White Blood Count 5.5 x10^3/uL (4.0-11.0) Red Blood Count 3.37 x10^6/uL (3.50-5.40) Hemoglobin 9.9 g/dL (12.0-15.5) Hematocrit 31.2 % (36.0-47.0) Mean Corpuscular Volume 92 fL (79-100) Mean Corpuscular Hemoglobin 29 pg (25-35) Mean Corpuscular Hemoglobin Concent 32 g/dL (31-37) Red Cell Distribution Width 17.0 % (11.5-14.5) Platelet Count 139 x10^3/uL (140-400) Neutrophils (%) (Auto) 69 % (31-73) Lymphocytes (%) (Auto) 15 % (24-48) Monocytes (%) (Auto) 15 % (0-9) Eosinophils (%) (Auto) 1 % (0-3) Basophils (%) (Auto) 1 % (0-3) Neutrophils # (Auto) 3.8 x10^3/uL (1.8-7.7) Lymphocytes # (Auto) 0.8 x10^3/uL (1.0-4.8) Monocytes # (Auto) 0.8 x10^3/uL (0.0-1.1) Eosinophils # (Auto) 0.0 x10^3/uL (0.0-0.7) Basophils # (Auto) 0.0 x10^3/uL (0.0-0.2) Sodium Level 137 mmol/L (136-145) Potassium Level 4.3 mmol/L (3.5-5.1) Chloride Level 100 mmol/L (98-107) Carbon Dioxide Level 26 mmol/L (21-32) Anion Gap 11 (6-14) Blood Urea Nitrogen 39 mg/dL (7-20) Creatinine 3.0 mg/dL (0.6-1.0) Estimated GFR (Cockcroft-Gault) 19.3 Glucose Level 62 mg/dL (70-99) Calcium Level 7.6 mg/dL (8.5-10.1) Magnesium Level 2.6 mg/dL (1.8-2.4) Test 11/05/20 07:55 11/05/20 08:55 11/05/20 12:24 11/05/20 16:57 Glucose (Fingerstick) 182 mg/dL (70-99) 104 mg/dL (70-99) 132 mg/dL (70-99) O2 Saturation 93 % (92-99) Arterial Blood pH 7.36 (7.35-7.45) Arterial Blood pCO2 at Patient Temp 44 mmHg (35-46) Arterial Blood pO2 at Patient Temp 73 mmHg (65-108) Arterial Blood HCO3 24 mmol/L (21-28) Arterial Blood Base Excess -1 mmol/L (-3-3) FiO2 30% bipap Test 11/06/20 08:18 Glucose (Fingerstick) 94 mg/dL (70-99) Laboratory Tests Test 11/05/20 12:24 11/05/20 16:57 11/06/20 08:18 Glucose (Fingerstick) 104 mg/dL (70-99) 132 mg/dL (70-99) 94 mg/dL (70-99) Medications Active Scripts Medications Dose Route/Sig Max Daily Dose Days Date Category Dose Instructions Lomotil Tablet (Diphenoxylate Hcl/Atropine) 1 Each Tablet 1 Tab PO TID 3 10/28/20 Rx Dicyclomine Hcl 20 Mg Tablet 1 Tab PO TID 10 10/28/20 Rx Zithromax (Azithromycin) 250 Mg Tablet 250 Mg PO DIRECTED 10/28/20 Rx Take 2 PO x 1 days Then take 1 PO q 24 hour for the next 4 days Doxycycline Hyclate 100 Mg Tablet 1 Tab PO BID 3 12/04/19 Rx Culturelle (Lactobacillus Rhamnosus Gg) 1 Each Cap.sprink 1 Cap PO BID 14 12/04/19 Rx Zofran (Ondansetron Hcl) 4 Mg Tablet 4 Mg PO Q8HRS PRN 12/02/19 Reported Tramadol Hcl 50 Mg Tablet 50 Mg PO Q6HRS PRN 12/02/19 Reported Tears Again (Polyvinyl Alcohol) 15 Ml Drops 2 Drop EACHEYE Q4HRS 30 12/02/19 Reported Polyvinyl Alcohol 15 Ml Drops 2 Drop EACHEYE Q4HRS 30 12/02/19 Reported Ropinirole Hcl 1 Mg Tablet 1 Mg PO BID 12/02/19 Reported Pantoprazole Sodium (Pantoprazole Sodium) 40 Mg Tablet.dr 40 Mg PO DAILYAC 12/02/19 Reported B-Complex Plus Vitamin C (B Complex With Vitamin C) 1 Each Tablet 1 Each PO DAILY 12/02/19 Reported Magnesium Oxide 400 Mg Tablet 400 Mg PO DAILY 12/02/19 Reported Loratadine 10 Mg Tablet 10 Mg PO DAILY 12/02/19 Reported Ketotifen Fumarate 5 Ml Drops 1 Drop EACHEYE BID 12/02/19 Reported Humalog (Insulin Lispro) 100 Unit/1 Ml Vial 100 Unit SQ BIDWMEALS 12/02/19 Reported 70 - 150 0 units 151 - 200 0 units 201 - 250 2 units 251 - 300 3 units 301 - 349 4 units if FSBS is under 70 or 350 and over call MD [guaifenesin Syrup] 10 Ml PO Q4HRS PRN 12/02/19 Reported Mucinex (Guaifenesin) 600 Mg Tablet.er 600 Mg PO BID 12/02/19 Reported Coreg (Carvedilol) 25 Mg Tablet 50 Mg PO BIDWMEALS 12/02/19 Reported Peridex (Chlorhexidine Gluconate) 15 Ml Mouthwash 15 Ml PO BID 30 12/02/19 Reported Swish in mouth for 30 seconds then spit out Calcium Carbonate 500 Mg Tablet 500 Mg PO Q4HRS 12/02/19 Reported Atorvastatin Calcium 10 Mg Tablet 10 Mg PO HS 12/02/19 Reported Acetaminophen 325 Mg Tablet 650 Mg PO Q6HRS 12/02/19 Reported Metformin Hcl 500 Mg Tablet 250 Mg PO BIDWMEALS 12/03/18 Reported Imodium A-D (Loperamide HCl) 2 Mg Capsule 2 Mg PO DAILY PRN 12/03/18 Reported Risperidone 0.5 Mg Tablet 0.5 Mg PO DAILY 03/21/18 Reported Risperidone 1 Mg Tablet 1 Tab PO QHS 03/21/18 Reported Levothyroxine Sodium 112 Mcg Tablet 1 Tab PO DAILY 03/21/18 Reported Advair 500-50 Diskus (Fluticasone/Salmeterol) 1 Each Disk.w.dev 1 Puff IH BID 03/21/18 Reported Nystatin 15 Gm Powder 1 Scott TP PRN BID PRN 03/21/18 Reported Clonazepam (Clonazepam) 0.5 Mg Tablet 1 Tab PO BID 09/30/16 Reported Montelukast Sodium Tablet (Montelukast Sodium) 10 Mg Tablet 1 Tab PO HS 02/18/16 Reported Gas-X (Simethicone) 80 Mg Tab.chew 160 Mg PO Q2HR PRN 02/18/16 Reported Gabapentin (Gabapentin) 100 Mg Capsule 100 Mg PO TID 02/18/16 Reported Comments CXR 11/03 Impression: 1. The ET and NG tubes have been removed. 2. Left lower lobe atelectasis and/or infiltrate with probable small left pleural effusion, unchanged. ct chest 1. Cardiomegaly. 2. Increased consolidative opacities in the left lung and scattered groundglass opacities in the right lung are suspicious for pneumonia. Some of the opacities in the left upper lobe are chronic scarring or atelectasis present on prior exam. 3. New trace bilateral pleural effusions. No large or drainable pleural effusion. Electronically signed by: Renetta Edouard MD (11/04/2020 4:07 PM) [id number] Impression . IMPRESSION: 1. Acute on chronic hypoxemic hypercapnic respiratory failure, now extubated off BIPAP 2. Abnormal x-ray compatible with acute on chronic congestive heart failure,/ COVID-19. 3. Abnormal ct chest c/w COVID-19 PNEUMONIA/ ? BACTERIAL PNA 4. COVID-19 5. Acute metabolic toxic encephalopathy. 6. History of status post pacemaker defibrillator implantation. 7. Restless legs syndrome. 8. Schizoaffective disorder. 9. Acute on chronic systolic heart failure. 9. Non-ST segment elevation myocardial infarction. 10. Cardiomyopathy, ejection fraction on 11/2019 revealed EF of 45%. 11. Atrial fibrillation with V paced, currently underlying sinus rhythm. 12. Hyperlipidemia. 13. Hypothyroidism. 14. Fever, rule out bacteremia. 15. Sepsis. Plan . PLAN: Continue supplemental oxygen , use BIPAP 35%,qhs , intermittent nasal cannula as tolerated keep oxygen saturations greater than 92% Extubated on , avoid sedative medications PRN haldol for agitation Continue ABX per infectious disease: garysyn Follow cardiology recs Continue Diureses, PT/OT/ST PPN for nutritional support, Failed swallow study DVT/GI PPX discussed advance directives with son 11/05. full code D/W RN and RT MERRY STOKES MD Nov 06, 2020 09:41
[2020-11-06 09:43] LABS: BASO # 0.1 x10^3/uL (0.0-0.2); BASO % 1 % (0-3); EOS % 0 % (0-3); HEMATOCRIT 29.7 % (36.0-47.0); HEMOGLOBIN 9.8 g/dL (12.0-15.5); LYMPH # 0.5 x10^3/uL (1.0-4.8); LYMPH % 8 % (24-48); MEAN CORPUSCULAR HEMOGLOBIN 30 pg (25-35); MEAN CORPUSCULAR HGB CONC 33 g/dL (31-37); MEAN CORPUSCULAR VOLUME 92 fL (79-100); MONO % 15 % (0-9); NEUT # 5.3 x10^3/uL (1.8-7.7); NEUT % 76 % (31-73); PLATELET COUNT 189 x10^3/uL (140-400); RED BLOOD COUNT 3.23 x10^6/uL (3.50-5.40); RED CELL DISTRIBUTION WIDTH 16.5 % (11.5-14.5)
[2020-11-06 10:01] LABS: CREATININE 3.7 mg/dL (0.6-1.0); GFR 15.2; POTASSIUM 4.3 mmol/L (3.5-5.1)
--- NOTE | 2020-11-06 11:12 | PDOC ---
[employer] PROGRESS NOTE Date of Service DOS: DATE: 11/06/20 TIME: 11:03 Chief Complaint Chief Complaint COVID Positive Acute hypoxemic hypercapnic respiratory failure Acute on chronic heart failure Blood cultures positive Heart failure PMH IA AICD in UTI Hypocalcemia Hypertriglyceridemia Anemia Low platelets Hypoglycemia (43) Elevated Cr History of Present Illness History of Present Illness 10/31 Patient seen and examined in ICU Patient sedated with propofol Possible COVID - pending under investigation Discussed with RN Chart reviewed Blood culture positive Vent settings as follows AC/18/450/40 11/01 Patient is COVID positive Patient seen and examined in ICU Patient sedated with propofol Discussed with RN Discussed with General Manager [employer] Chart reviewed Blood cultures are positive 11/02 Patient is COVID positive Patient seen and examined in ICU Propofol IV Discussed with RN Chart Reviewed Blood cultures positive 11/03/2020 Patient resting w/ NAD on Bipap Patient is COVID positive Patient seen and examined in ICU Propofol IV Discussed with RN Chart Reviewed Blood cultures positive 11/04/2020 Patient seen and evaluated. Tachypneic, afebrile. Still breathing on BiPAP. Continue IV Zosyn, positive blood cultures most likely contaminant. Continue diuresis. She is on Levophed and Precedex. Still with some agitation. CT chest pending to evaluate possible thoracentesis. Total time spent 35 minutes, >50% time spent reviewing charts, reviewing labs, discussing with RN and certified social workers in health care. 11/05/2020 Patient seen and evaluated. She is still intermittently requiring BiPAP. Afebrile, tachypneic, tachycardic. Sedated with Haldol. CT chest yesterday showing trace bilateral pleural effusion, no drainable fluid collection. Continue COVID-19 treatment with steroids and supportive care. 11/06/2020 Patient seen and evaluated, status post extubation 10/31. Afebrile, tachycardic. She is breathing intermittently on BiPAP, currently on 2 L nasal cannula. States she is hungry, swallow eval pending. Continue steroids and antibiotics, per ID. Continue diuresis. Vitals/I&O Vitals/I&O: Vital Signs Date Time Temp Pulse Resp B/P (MAP) Pulse Ox O2 Delivery O2 Flow Rate FiO2 11/06/20 08:00 Nasal Cannula 2.0 11/06/20 07:00 96.1 106 175/97 (123) 97 96.1 11/06/20 02:00 23 I & O 11/05/20 11/05/20 11/06/20 15:00 23:00 07:00 Intake Total 50 ml Output Total 450 ml 400 ml Balance -450 ml -350 ml Physical Exam Physical Exam: GENERAL: Alert awake female HEENT: Both pupils are round and reacting. No conjunctival lesion. No lesion in the mouth. NECK: Supple, no JVP, no lymphadenopathy. LUNGS: Clear. HEART: S1, S2 regular. ABDOMEN: Soft bowel sounds present nontender nondistended Fecal tube present EXTREMITIES: No edema or cyanosis. SKIN: Unremarkable. NEUROLOGIC: Alert awake General: No acute distress, Other Heart: Regular rate Lungs: Clear Abdomen: Soft, Other Extremities: No edema Skin: No rashes, No breakdown, No significant lesion Labs Labs: Laboratory Tests Test 11/05/20 12:24 11/05/20 16:57 11/06/20 08:18 11/06/20 09:15 Glucose (Fingerstick) 104 mg/dL (70-99) 132 mg/dL (70-99) 94 mg/dL (70-99) White Blood Count 7.0 x10^3/uL (4.0-11.0) Red Blood Count 3.23 x10^6/uL (3.50-5.40) Hemoglobin 9.8 g/dL (12.0-15.5) Hematocrit 29.7 % (36.0-47.0) Mean Corpuscular Volume 92 fL (79-100) Mean Corpuscular Hemoglobin 30 pg (25-35) Mean Corpuscular Hemoglobin Concent 33 g/dL (31-37) Red Cell Distribution Width 16.5 % (11.5-14.5) Platelet Count 189 x10^3/uL (140-400) Neutrophils (%) (Auto) 76 % (31-73) Lymphocytes (%) (Auto) 8 % (24-48) Monocytes (%) (Auto) 15 % (0-9) Eosinophils (%) (Auto) 0 % (0-3) Basophils (%) (Auto) 1 % (0-3) Neutrophils # (Auto) 5.3 x10^3/uL (1.8-7.7) Lymphocytes # (Auto) 0.5 x10^3/uL (1.0-4.8) Monocytes # (Auto) 1.0 x10^3/uL (0.0-1.1) Eosinophils # (Auto) 0.0 x10^3/uL (0.0-0.7) Basophils # (Auto) 0.1 x10^3/uL (0.0-0.2) Sodium Level 136 mmol/L (136-145) Potassium Level 4.3 mmol/L (3.5-5.1) Chloride Level 100 mmol/L (98-107) Carbon Dioxide Level 26 mmol/L (21-32) Anion Gap 10 (6-14) Blood Urea Nitrogen 48 mg/dL (7-20) Creatinine 3.7 mg/dL (0.6-1.0) Estimated GFR (Cockcroft-Gault) 15.2 Glucose Level 96 mg/dL (70-99) Calcium Level 8.0 mg/dL (8.5-10.1) Assessment and Plan Assessmemt and Plan Problems Medical Problems: (1) AMS (altered mental status) Status: Acute (2) Hypercapnia Status: Acute (3) Person under investigation for COVID-19 Status: Acute (4) Respiratory failure Status: Acute (5) UTI (urinary tract infection) Status: Acute Comment Review of Relevant I have reviewed the following items lucas (where applicable) has been applied. Medications: Current Medications Medications (Trade) Dose Ordered Sig/Eber Route PRN Reason Start Time Stop Time Status Last Admin Dose Admin Piperacillin Sod/ Tazobactam Sod 3.375 gm/Sodium Chloride 50 ml @ 100 mls/hr Q6HRS IV 11/05/20 12:00 11/06/20 09:15 DC 11/06/20 00:04 Justifications for Admission Other Justification STONEY TILLMAN MD Nov 06, 2020 11:12
--- NOTE | 2020-11-06 11:35 | PDOC ---
MATY ROJAS CERTIFIED PERSONAL FINANCE COUNSELOR 11/06/20 1135: CARDIO Progress Notes Date and Time Date of Service 11/06/20 Time of Evaluation 1130 Subjective Subjective: No Chest Pain, No Palpitations, Other (restless at time. ) Vitals Vitals Vital Signs Date Time Temp Pulse Resp B/P (MAP) Pulse Ox O2 Delivery O2 Flow Rate FiO2 11/06/20 08:00 Nasal Cannula 2.0 11/06/20 07:00 96.1 106 175/97 (123) 97 96.1 11/06/20 02:00 23 Weight Weight [ ] Input and Output Intake and Output Intake and Output 11/06/20 07:00 Intake Total 50 ml Output Total 850 ml Balance -800 ml IV Total 50 ml Output Urine Total 850 ml # Bowel Movements 4 Laboratory Labs Laboratory Tests Test 11/05/20 12:24 11/05/20 16:57 11/06/20 08:18 11/06/20 09:15 Glucose (Fingerstick) 104 mg/dL (70-99) 132 mg/dL (70-99) 94 mg/dL (70-99) White Blood Count 7.0 x10^3/uL (4.0-11.0) Red Blood Count 3.23 x10^6/uL (3.50-5.40) Hemoglobin 9.8 g/dL (12.0-15.5) Hematocrit 29.7 % (36.0-47.0) Mean Corpuscular Volume 92 fL (79-100) Mean Corpuscular Hemoglobin 30 pg (25-35) Mean Corpuscular Hemoglobin Concent 33 g/dL (31-37) Red Cell Distribution Width 16.5 % (11.5-14.5) Platelet Count 189 x10^3/uL (140-400) Neutrophils (%) (Auto) 76 % (31-73) Lymphocytes (%) (Auto) 8 % (24-48) Monocytes (%) (Auto) 15 % (0-9) Eosinophils (%) (Auto) 0 % (0-3) Basophils (%) (Auto) 1 % (0-3) Neutrophils # (Auto) 5.3 x10^3/uL (1.8-7.7) Lymphocytes # (Auto) 0.5 x10^3/uL (1.0-4.8) Monocytes # (Auto) 1.0 x10^3/uL (0.0-1.1) Eosinophils # (Auto) 0.0 x10^3/uL (0.0-0.7) Basophils # (Auto) 0.1 x10^3/uL (0.0-0.2) Sodium Level 136 mmol/L (136-145) Potassium Level 4.3 mmol/L (3.5-5.1) Chloride Level 100 mmol/L (98-107) Carbon Dioxide Level 26 mmol/L (21-32) Anion Gap 10 (6-14) Blood Urea Nitrogen 48 mg/dL (7-20) Creatinine 3.7 mg/dL (0.6-1.0) Estimated GFR (Cockcroft-Gault) 15.2 Glucose Level 96 mg/dL (70-99) Calcium Level 8.0 mg/dL (8.5-10.1) Microbiology Micro Microbiology 10/30/20 Blood Culture - Final, Complete 10/30/20 Urine Culture - Final, Complete 10/30/20 Antimicrobic Susceptibility - Final, Complete Physical Exam HEENT: Neck Supple W Full Motion Chest: Symmetric LUNGS: Other (on BiPAP) Heart: RRR (SR wtih vpacing ) Abdomen: Other (soft ) Extremities: Other (trace LE edema) Neurology: other (sleeping ) Assessment Assessment 1. Acute respiratory failure requiting intubation with a/c CHF and Covid PNA: s/p extubation 2. Acute on chronic systolic CHF; improved with diuresis 3. NSTEMI: peak trop 1. Most probable type II, demand ischemia 4. Cardiomyopathy: prior EF at 45% 5. PAFIB; periods of AFIB with RVR noted. Converted back to SR and has been maintaining. presently v-paced with underlying SR 6. Hypertension; better 7. Hyperlipidemia; statin. 8. Diabetes, II 9. Hypothyroidism; on replacement 10. Encephalopathy with underlying anxiety, depression, schizoaffective disorder. 11. JACKIE; Cr ^ 3.7 Recommendations Discontinue lasix, avoid nephrotoxins Gentle hydration. Will need PICC line Consult renal Metoprolol for rate control Consider antiarrhythmic therapy if further paroxysms of AFIB noted ASA, statin. Secondary prevention Echo outpt when recovered from COVID Ongoing lung optimization Plan outpatient ischemic evaluation Supportive care Justicifation of Admission Dx: Justifications for Admission: Justification of Admission Dx: Yes PASNOORI,RADHA R MD 11/07/20 0854: CARDIO Progress Notes Assessment Assessment Patient seen and examined 11/06/20. Agree with CYBER SYSTEMS ADMINISTRATOR's assessment and plan. Acute on chronic systolic heart failure improved with diuresis but BUN/creati nine level increased. Agree with holding diuretics. Acute respiratory failure s/p extubation, pulmonary team following. Troponin elevation most probably demand ischemia. Plan 2D echo once she is recovered from Covid pneumonia. We will consider ischemic evaluation as an outpatient. PAF, presently V paced. Telemetry showed episodes of AF with RVR. Agree with initiating antiarrhythmic therapy if these paroxysms continue. MATY ROJAS APRN Nov 06, 2020 11:35 RADHA SWAN MD Nov 07, 2020 08:54
[2020-11-06] MEDS ORDERED: IV NORMAL SALINE 1000ML BAG 1,000 ML IV SCH (12:00)
--- NOTE | 2020-11-06 13:59 | NUR ---
SS following up with discharge planning. SS reviewed pt chart and discussed with pt RN. Pt is now on nasal canula oxygen at two liters. Pt getting PICC today. NPO. ST following. COVID19 positive. Pt had rectal tube placed last night. Pt is LTC resident from [facility], ; fax [phone], and is able to return when medically stable for discharge. SS will continue to follow for discharge planning.
--- NOTE | 2020-11-06 14:17 | PDOC2 ---
CONSULT Date of Consult Date of Consult DATE: 11/06/20 TIME: 14:10 Reason for Consult Reason for Consult: JACKIE Referring Physician Referring Physician: TOM Identification/Chief Complaint Chief Complaint SOB AND CONFUSION Source Source: Chart review History of Present Illness Reason for Visit: THIS IS A 60 YR FROM A [facility]. THERE DUE TO SCHIZOAFFECTIVE DISORDER. PT NOTED TO BE HYPOXIC AND IN CHF. HAS BEEN DIURESED. ALSO NOTED TO HAVE COVID 19 . HAS BEEN INTUBATED ON THE VENT AND NOW EXTUBATED. HAS CKD STAGE 2 BASED ON GFR WITH A NL CR, HOWEVER HAS HAD JACKIE WITH CR UP TO 3.7 TODAY. ALSO HAS HAD TX FOR COVID 19 AND ANTIBIOTICS PER ID. SHE REMAINS CONFUSED AND UNABLE TO GIVE A PROPER HISTORY. NO NEPHROTOXIN EXPOSURE NOTED. HEMODYNAMICALLY SHE IS STABLE. NO OTHER HX Past Medical History Cardiovascular: CHF, HTN, Hyperlipidemia, Other Pulmonary: Asthma CENTRAL NERVOUS SYSTEM: Other GI: GERD, Other Heme/Onc: No pertinent hx Hepatobiliary: No pertinent hx Psych: Anxiety, Depression, Schizophrenia Musculoskeletal: Osteoarthritis, Other Rheumatologic: No pertinent hx Infectious disease: No pertinent hx Renal/: Chronic renal insuff, UTI Endocrine: Diabetes, Hypothyroidism Past Surgical History Past Surgical History: Pacemaker Family History Family History: Family History Unknown Social History Quit ALCOHOL: none Drugs: None Lives: Group Home Domestic Violence: Neg Current Problem List Problem List Problems Medical Problems: (1) AMS (altered mental status) Status: Acute (2) Hypercapnia Status: Acute (3) Person under investigation for COVID-19 Status: Acute (4) Respiratory failure Status: Acute (5) UTI (urinary tract infection) Status: Acute Current Medications Current Medications Current Medications Acetaminophen (Tylenol Supp) 975 mg 1X ONCE PA Last administered on 10/30/20at 03:54; Start 10/30/20 at 03:45; Stop 10/30/20 at 03:46; Status DC Piperacillin Sod/ Tazobactam Sod 3.375 gm/Sodium Chloride 50 ml @ 100 mls/hr 1X ONCE IV Last administered on 10/30/20at 04:54; Start 10/30/20 at 04:45; Stop 10/30/20 at 05:14; Status DC Sodium Chloride 1,000 ml @ 1,000 mls/hr 1X ONCE IV Last administered on 10/30/20at 04:52; Start 10/30/20 at 04:30; Stop 10/30/20 at 05:29; Status DC Sodium Chloride 1,000 ml @ 1,000 mls/hr 1X ONCE IV Last administered on 10/30/20at 05:15; Start 10/30/20 at 05:30; Stop 10/30/20 at 06:29; Status DC Ondansetron HCl (Zofran) 4 mg PRN Q8HRS PRN IV NAUSEA/VOMITING; Start 10/30/20 at 06:00; Stop 10/31/20 at 05:59; Status DC Sodium Chloride 1,000 ml @ 75 mls/hr [id number] IV Last administered on 10/30/20a t 22:15; Start 10/30/20 at 06:00; Stop 10/31/20 at 05:59; Status DC Piperacillin Sod/ Tazobactam Sod (Zosyn Per Pharmacy) 1 each PRN DAILY PRN MC SEE COMMENTS; Start 10/30/20 at 06:00; Stop 11/06/20 at 11:03; Status DC Enoxaparin Sodium (Lovenox 120mg Syringe) 110 mg 1X ONCE SQ Last administered on 10/30/20at 06:27; Start 10/30/20 at 06:15; Stop 10/30/20 at 06:16; Status DC Midazolam HCl 100 mg/Sodium Chloride 100 ml @ 0 mls/hr ONCE ONCE IV Last administered on 10/30/20at 07:10; Start 10/30/20 at 06:45; Stop 10/30/20 at 06:46; Status DC Fentanyl Citrate (Fentanyl 2ml Vial) 100 mcg 1X ONCE IV Last administered on 1 12/31/19at 07:38; Start 10/30/20 at 07:30; Stop 10/30/20 at 07:31; Status DC Piperacillin Sod/ Tazobactam Sod 4.5 gm/Sodium Chloride 100 ml @ 200 mls/hr Q6HRS IV Last administered on 11/04/20at 05:10; Start 10/30/20 at 12:00; Stop 11/04/20 at 09:59; Status DC Propofol 100 ml @ 3.408 mls/ hr CONT PRN IV PER PROTOCOL Last administered on 10/31/20at 12:07; Start 10/30/20 at 09:00 Furosemide (Lasix) 40 mg 1X ONCE IVP Last administered on 10/30/20at 10:06; Start 10/30/20 at 09:45; Stop 10/30/20 at 09:46; Status DC Etomidate (Amidate) 20 mg STK-MED ONCE IV ; Start 10/30/20 at 10:43; Stop 10/30/20 at 10:43; Status DC Succinylcholine Chloride (Anectine) 200 mg STK-MED ONCE .ROUTE ; Start 10/30/20 at 10:43; Stop 10/30/20 at 10:44; Status DC Vancomycin HCl (Vanco Per Pharmacy) 1 each PRN DAILY PRN MC SEE COMMENTS Last administered on 10/31/20at 09:51; Start 10/30/20 at 11:00; Stop 10/31/20 at 11:11; Status DC Vancomycin HCl 1.75 gm/Sodium Chloride 500 ml @ 250 mls/hr ONCE ONCE IV Last administered on 10/30/20at 12:36; Start 10/30/20 at 11:30; Stop 10/30/20 at 13:29; Status DC Aspirin (Aspirin Chewable) 324 mg 1X ONCE PO ; Start 10/30/20 at 15:15; Stop 10/30/20 at 15:22; Status DC Aspirin (Aspirin Chewable) 81 mg DAILYWBKFT PO Last administered on 11/01/20at 08:41; Start 10/31/20 at 08:00 Heparin Sodium (Porcine) (Heparin Sodium) 5,000 unit Q8HRS SQ Last administered on 11/06/20at 06:39; Start 10/30/20 at 22:00 Carvedilol (Coreg) 3.125 mg BIDWMEALS PO Last administered on 10/31/20at 09:27; Start 10/30/20 at 17:00; Stop 10/31/20 at 15:45; Status DC Vancomycin HCl 1.75 gm/Sodium Chloride 500 ml @ 250 mls/hr Q24H IV ; Start 10/31/20 at 13:00; Stop 10/31/20 at 11:11; Status DC Fentanyl Citrate (Fentanyl 2ml Vial) 50 mcg PRN Q2HR PRN IVP PAIN Last administered on 10/31/20at 20:08; Start 10/31/20 at 07:45 Vancomycin HCl (Vancomycin Trough Level) 1 each 1X ONCE MC ; Start 11/01/20 at 12:30; Stop 10/31/20 at 13:36; Status DC Potassium Bicarbonate (Potassium Effervescent Tablet) 80 meq 1X ONCE PO Last administered on 10/31/20at 13:20; Start 10/31/20 at 09:45; Stop 10/31/20 at 09:46; Status DC Acetaminophen (Tylenol) 650 mg Q6HRS PO ; Start 10/31/20 at 12:00 Atorvastatin Calcium (Lipitor) 10 mg HS PO Last administered on 10/31/20at 20:06; Start 10/31/20 at 21:00 Bupropion HCl (Wellbutrin Xl) 150 mg DAILY PO Last administered on 11/01/20at 08:42; Start 10/31/20 at 12:00 Calcium Carbonate/ Glycine (Oscal) 500 mg Q4HRS PO Last administered on 11/01/20at 00:17; Start 10/31/20 at 12:00 Clonazepam (KlonoPIN) 0.5 mg BID PO Last administered on 11/01/20at 08:41; Start 10/31/20 at 12:00 Clonidine HCl (Catapres) 0.2 mg TID PO Last administered on 11/01/20at 08:42; Start 10/31/20 at 12:00 Diphenoxylate HCl/ Atropine (Lomotil) 1 tab TID PO Last administered on 10/31/20at 20:05; Start 10/31/20 at 14:00 Doxycycline Hyclate (Vibra-Tab) 100 mg BID PO Last administered on 11/01/20at 08:43; Start 10/31/20 at 12:00; Stop 11/02/20 at 16:50; Status DC Famotidine (Pepcid) 20 mg HS PO Last administered on 10/31/20at 20:05; Start 10/31/20 at 21:00 Gabapentin (Neurontin) 100 mg TID PO Last administered on 11/01/20at 08:41; Start 10/31/20 at 14:00 Ibuprofen (Motrin) 400 mg PRN Q6HRS PRN PO INFLAMMATION; Start 10/31/20 at 11:15 Insulin Human Regular (HumuLIN R VIAL) 100 unit BIDWMEALS SQ ; Start 10/31/20 at 17:00; Status UNV Albuterol/ Ipratropium (Duoneb) 3 ml Q4HRS NEB ; Start 10/31/20 at 12:00; Stop 11/02/20 at 07:02; Status DC Lactobacillus Rhamnosus (Culturelle) 1 cap BID PO Last administered on 10/31/20at 20:05; Start 10/31/20 at 12:00 Levothyroxine Sodium (Synthroid) 112 mcg DAILY06 PO Last administered on 11/01/20at 08:42; Start 11/01/20 at 09:00 Loperamide HCl (Imodium) 2 mg PRN DAILY PRN PO DIARRHEA; Start 10/31/20 at 11:15 Lorazepam (Ativan) 0.5 mg PRN Q8HRS PRN PO ANXIETY; Start 10/31/20 at 11:15 Metformin HCl (Glucophage) 250 mg BIDWMEALS PO ; Start 10/31/20 at 17:00 Nystatin (Nystop) 1 scott PRN BID PRN TP RASH; Start 10/31/20 at 11:15 Polyethylene Glycol (miraLAX PACKET) 17 gm DAILY PO ; Start 10/31/20 at 12:00 Risperidone (RisperDAL) 1 mg QHS PO Last administered on 11/01/20at 08:41; Start 10/31/20 at 21:00 Ropinirole HCl (Requip) 2 mg DAILY PO Last administered on 11/01/20at 08:53; Start 11/01/20 at 09:00 Simethicone (Gas-X) 160 mg Q2HR PRN PO GAS / BLOATING; Start 10/31/20 at 11:15; Stop 10/31/20 at 11:52; Status DC Tramadol HCl (Ultram) 50 mg PRN Q6HRS PRN PO MILD TO MODERATE PAIN; Start 10/31/20 at 11:15 Vitamin B Complex (Dustin B) 1 tab DAILY PO Last administered on 10/31/20at 13:04; Start 10/31/20 at 12:00 Carvedilol (Coreg) 50 mg BIDWMEALS PO ; Start 10/31/20 at 12:00; Stop 10/31/20 at 13:34; Status DC Dicyclomine HCl (Bentyl) 20 mg TID PO Last administered on 11/01/20at 08:42; Start 10/31/20 at 14:00 Non-Formulary Medication (Fluticasone/ Salmeterol (Advair 500-50 Diskus)) 1 puff BID IH ; Start 10/31/20 at 21:00; Status UNV Folic Acid (Folic Acid) 0.5 mg DAILY PO Last administered on 10/31/20at 13:06; Start 10/31/20 at 12:00 Cetirizine HCl (ZyrTEC) 10 mg DAILY PO Last administered on 11/01/20at 08:42; Start 11/01/20 at 09:00 Magnesium Oxide (Magnesium Oxide) 400 mg DAILY PO Last administered on 10/31/20at 13:05; Start 10/31/20 at 12:00 Multivitamins (Thera M Plus) 1 tab DAILY PO Last administered on 10/31/20at 13:05; Start 10/31/20 at 12:30 Ondansetron HCl (Zofran Odt) 4 mg PRN Q8HRS PRN PO NAUSEA/VOMITING; Start 10/31/20 at 12:30 Non-Formulary Medication (Peg 400/ Hypromellose/ Glycerin (Artificial Tears Drops)) 1 drop QID OS ; Start 10/31/20 at 13:00; Status UNV Glycerin/ Hypromellose/ Polyethylene (Artificial Tears) 2 drop Q4HRS OU Last administered on 11/06/20at 12:00; Start 10/31/20 at 16:00 Non-Formulary Medication (Polyvinyl Alcohol (Tears Again)) 2 drop Q4HRS EACHEYE ; Start 10/31/20 at 12:00; Status UNV Non-Formulary Medication (Risperidone ) 0.5 mg DAILY PO ; Start 11/01/20 at 09:00; Status UNV Guaifenesin (Robitussin) 200 mg PRN Q4HRS PRN PO COUGH Last administered on 10/31/20at 20:04; Start 10/31/20 at 12:45 Insulin Human Lispro (HumaLOG) 0-5 UNITS TIDWMEALS SQ ; Start 10/31/20 at 12:00 Dextrose (Dextrose 50%-Water Syringe) 12.5 gm PRN Q15MIN PRN IV SEE COMMENTS Last administered on 11/05/20at 08:30; Start 10/31/20 at 11:45 Simethicone (Gas-X) 160 mg PRN Q2HR PRN PO GAS / BLOATING; Start 10/31/20 at 12:00 Albuterol Sulfate (Ventolin Neb Soln) 2.5 mg Q6HRS NEB ; Start 10/31/20 at 13:00; Stop 11/02/20 at 07:02; Status DC Budesonide (Pulmicort) 0.5 mg RTBID NEB ; Start 10/31/20 at 20:00; Stop 11/01/20 at 13:52; Status DC Carvedilol (Coreg) 12.5 mg BIDWMEALS PO Last administered on 11/01/20at 08:43; Start 10/31/20 at 17:00; Stop 11/03/20 at 11:10; Status DC Dextrose (Dextrose 50%-Water Syringe) 12.5 gm PRN Q15MIN PRN IV SEE COMMENTS; Start 10/31/20 at 18:00; Status UNV Furosemide (Lasix) 40 mg 1X ONCE IVP Last administered on 11/01/20at 12:04; Start 11/01/20 at 11:45; Stop 11/01/20 at 11:46; Status DC Furosemide (Lasix) 40 mg DAILY PO ; Start 11/02/20 at 09:00; Stop 11/03/20 at 11:10; Status DC Potassium Chloride (Klor-Con) 10 meq DAILYWBKFT PO ; Start 11/02/20 at 08:00 Amino Acids/ Glycerin/ Electrolytes 1,000 ml @ 80 mls/hr [id number] IV ; Start 11/01/20 at 13:00; Stop 11/01/20 at 13:00; Status DC Amino Acids/ Glycerin/ Electrolytes 1,000 ml @ 80 mls/hr [id number] IV Last administered on 11/05/20at 17:39; Start 11/01/20 at 13:30 Acetaminophen (Tylenol Supp) 650 mg PRN Q6HRS PRN PA MILD PAIN / TEMP > 100.3'F Last administered on 11/02/20at 07:27; Start 11/02/20 at 00:00 Albuterol Sulfate (Ventolin Neb Soln) 2.5 mg PRN Q6HRS PRN NEB WHEEZING; Start 11/03/20 at 06:00 Albuterol/ Ipratropium (Duoneb) 3 ml PRN Q4HRS PRN NEB WHEEZING; Start 11/02/20 at 07:00; Stop 11/02/20 at 07:03; Status DC Lorazepam (Ativan Inj) 2 mg PRN Q4HRS PRN IVP ANXIETY / AGITATION Last administered on 11/05/20at 05:20; Start 11/02/20 at 08:30 Haloperidol Lactate (Haldol Inj) 5 mg PRN Q6HRS PRN IVP AGITATION Last administered on 11/06/20at 01:12; Start 11/02/20 at 11:00 Labetalol HCl (Normodyne Iv Push) 20 mg PRN Q2HR PRN IVP HYPERTENSION Last administered on 11/03/20at 00:56; Start 11/02/20 at 11:30 Metoprolol Tartrate (Lopressor Vial) 5 mg Q6HRS IVP Last administered on 11/04/20at 05:11; Start 11/03/20 at 12:00; Stop 11/04/20 at 09:21; Status DC Furosemide (Lasix) 40 mg DAILY IVP Last administered on 11/05/20at 10:27; Start 11/03/20 at 12:00; Stop 11/06/20 at 11:34; Status DC Dexmedetomidine HCl 400 mcg/ Sodium Chloride 100 ml @ 0 mls/hr CONT PRN IV PER PROTOCOL Last administered on 11/04/20at 05:42; Start 11/03/20 at 12:00 Sodium Chloride 500 ml @ 500 mls/hr 1X PRN PRN IV SEE COMMENTS Last administered on 11/03/20at 13:34; Start 11/03/20 at 12:00 Atropine Sulfate (ATROPINE 0.5mg SYRINGE) 0.5 mg PRN Q5MIN PRN IV SEE COMMENTS; Start 11/03/20 at 12:00 Norepinephrine Bitartrate 8 mg/ Dextrose 258 ml @ 17.202 mls/ hr CONT PRN IV PER PROTOCOL Last administered on 11/04/20at 05:54; Start 11/03/20 at 13:45 Albuterol Sulfate (Ventolin Hfa) 1 puff PRN Q6HRS PRN INH SHORTNESS OF AIR Last administered on 11/04/20at 13:50; Start 11/04/20 at 13:45 Metoprolol Tartrate (Lopressor Vial) 5 mg 1X ONCE IVP Last administered on 11/04/20at 14:36; Start 11/04/20 at 14:30; Stop 11/04/20 at 14:31; Status DC Dexamethasone Sodium Phosphate (Decadron) 6 mg DAILY IVP Last administered on 11/05/20at 08:30; Start 11/05/20 at 09:00 Metoprolol Tartrate (Lopressor Vial) 5 mg Q6HRS IVP Last administered on 11/06/20at 00:03; Start 11/05/20 at 08:15 Piperacillin Sod/ Tazobactam Sod 3.375 gm/Sodium Chloride 50 ml @ 100 mls/hr Q6HRS IV Last administered on 11/06/20at 00:04; Start 11/05/20 at 12:00; Stop 11/06/20 at 09:15; Status DC Doxycycline Hyclate (Vibra-Tab) 100 mg BID PO ; Start 11/05/20 at 09:00; Stop 11/05/20 at 09:43; Status DC Sodium Chloride 1,000 ml @ 125 mls/hr CONT PRN IV ; Start 11/06/20 at 12:00 Active Scripts Active Lomotil Tablet (Diphenoxylate Hcl/Atropine) 1 Each Tablet 1 Tab PO TID 3 Days Dicyclomine Hcl 20 Mg Tablet 1 Tab PO TID 10 Days Zithromax (Azithromycin) 250 Mg Tablet 250 Mg PO DIRECTED Take 2 PO x 1 days Then take 1 PO q 24 hour for the next 4 days Doxycycline Hyclate 100 Mg Tablet 1 Tab PO BID 3 Days Culturelle (Lactobacillus Rhamnosus Gg) 1 Each Cap.sprink 1 Cap PO BID 14 Days Reported Wellbutrin Xl (Bupropion Hcl) 150 Mg Tab.er.24h 150 Mg PO DAILY Artificial Tears Drops (Peg 400/Hypromellose/Glycerin) 15 Ml Drops 1 Drop OS QID 30 Days Folic Acid 0.4 Mg Tablet 0.4 Mg PO DAILY Duoneb 0.5-3(2.5) Mg/3 Ml (Albuterol/Ipratropium) 3 Ml Ampul.neb 3 Ml NEB Q4HRS Clonidine Hcl 0.2 Mg Tablet 0.2 Mg PO TID Ativan (Lorazepam) 0.5 Mg Tablet 0.5 Mg PO Q8HRS PRN Ibuprofen 400 Mg Tablet 400 Mg PO PRN Q6HRS PRN Guaifenesin Ac Cough Syrup (Guaifenesin/Codeine Phosphate) 473 Ml Liquid 10 Ml PO PRN Q4-6HRS PRN MDD 60 Milliliter(s) 4 Days Multiple Vitamins (Multivitamin) 1 Each Tablet 1 Tab PO DAILY 30 Days Miralax (Polyethylene Glycol 3350) 17 Gm Powd.pack 1 Packet PO DAILY 2 Days dissolve in water Famotidine 20 Mg Tablet 20 Mg PO HS Zofran (Ondansetron Hcl) 4 Mg Tablet 4 Mg PO Q8HRS PRN Tramadol Hcl 50 Mg Tablet 50 Mg PO Q6HRS PRN Tears Again (Polyvinyl Alcohol) 15 Ml Drops 2 Drop EACHEYE Q4HRS 30 Days Polyvinyl Alcohol 15 Ml Drops 2 Drop EACHEYE Q4HRS 30 Days Ropinirole Hcl 1 Mg Tablet 1 Mg PO BID B-Complex Plus Vitamin C (B Complex With Vitamin C) 1 Each Tablet 1 Each PO DAILY Magnesium Oxide 400 Mg Tablet 400 Mg PO DAILY Loratadine 10 Mg Tablet 10 Mg PO DAILY Humalog (Insulin Lispro) 100 Unit/1 Ml Vial 100 Unit SQ BIDWMEALS 70 - 150 0 units 151 - 200 0 units 201 - 250 2 units 251 - 300 3 units 301 - 349 4 units if FSBS is under 70 or 350 and over call MD [guaifenesin Syrup] 10 Ml PO Q4HRS PRN Coreg (Carvedilol) 25 Mg Tablet 50 Mg PO BIDWMEALS Peridex (Chlorhexidine Gluconate) 15 Ml Mouthwash 15 Ml PO BID 30 Days Swish in mouth for 30 seconds then spit out Calcium Carbonate 500 Mg Tablet 500 Mg PO Q4HRS Atorvastatin Calcium 10 Mg Tablet 10 Mg PO HS Acetaminophen 325 Mg Tablet 650 Mg PO Q6HRS Metformin Hcl 500 Mg Tablet 250 Mg PO BIDWMEALS Imodium A-D (Loperamide HCl) 2 Mg Capsule 2 Mg PO DAILY PRN Risperidone 0.5 Mg Tablet 0.5 Mg PO DAILY Risperidone 1 Mg Tablet 1 Tab PO QHS Levothyroxine Sodium 112 Mcg Tablet 1 Tab PO DAILY Advair 500-50 Diskus (Fluticasone/Salmeterol) 1 Each Disk.w.dev 1 Puff IH BID Nystatin 15 Gm Powder 1 Scott TP PRN BID PRN Clonazepam (Clonazepam) 0.5 Mg Tablet 1 Tab PO BID Gas-X (Simethicone) 80 Mg Tab.chew 160 Mg PO Q2HR PRN Gabapentin (Gabapentin) 100 Mg Capsule 100 Mg PO TID Allergies Allergies: Coded Allergies: lactose (Verified Allergy, Intermediate, 02/25/16) lisinopril (Verified Allergy, Intermediate, 08/08/15) ROS Review of System UNABLE TO PROPERLY OBTAIN FROM THIS CONFUSED PT Physical Exam General: Alert, Cooperative, No acute distress HEENT: PERRLA Lungs: Clear to auscultation, Normal air movement Heart: Regular rate Abdomen: Normal bowel sounds Extremities: No clubbing Skin: No breakdown Neuro: Other (CONFUSED, NO ASYMETRY) Psych/Mental Status: Other (FLAT CONFUSED AFFECT) MUSCULOSKELETAL: No deformity, No swelling Vitals VITALS Vital Signs Date Time Temp Pulse Resp B/P (MAP) Pulse Ox O2 Delivery O2 Flow Rate FiO2 11/06/20 11:00 97.8 106 155/86 (109) 97 Nasal Cannula 2.0 97.8 11/06/20 02:00 23 Labs Labs Laboratory Tests Test 11/04/20 20:03 11/05/20 06:29 11/05/20 07:49 11/05/20 07:55 Glucose (Fingerstick) 78 mg/dL (70-99) 55 mg/dL (70-99) 182 mg/dL (70-99) White Blood Count 5.5 x10^3/uL (4.0-11.0) Red Blood Count 3.37 x10^6/uL (3.50-5.40) Hemoglobin 9.9 g/dL (12.0-15.5) Hematocrit 31.2 % (36.0-47.0) Mean Corpuscular Volume 92 fL (79-100) Mean Corpuscular Hemoglobin 29 pg (25-35) Mean Corpuscular Hemoglobin Concent 32 g/dL (31-37) Red Cell Distribution Width 17.0 % (11.5-14.5) Platelet Count 139 x10^3/uL (140-400) Neutrophils (%) (Auto) 69 % (31-73) Lymphocytes (%) (Auto) 15 % (24-48) Monocytes (%) (Auto) 15 % (0-9) Eosinophils (%) (Auto) 1 % (0-3) Basophils (%) (Auto) 1 % (0-3) Neutrophils # (Auto) 3.8 x10^3/uL (1.8-7.7) Lymphocytes # (Auto) 0.8 x10^3/uL (1.0-4.8) Monocytes # (Auto) 0.8 x10^3/uL (0.0-1.1) Eosinophils # (Auto) 0.0 x10^3/uL (0.0-0.7) Basophils # (Auto) 0.0 x10^3/uL (0.0-0.2) Sodium Level 137 mmol/L (136-145) Potassium Level 4.3 mmol/L (3.5-5.1) Chloride Level 100 mmol/L (98-107) Carbon Dioxide Level 26 mmol/L (21-32) Anion Gap 11 (6-14) Blood Urea Nitrogen 39 mg/dL (7-20) Creatinine 3.0 mg/dL (0.6-1.0) Estimated GFR (Cockcroft-Gault) 19.3 Glucose Level 62 mg/dL (70-99) Calcium Level 7.6 mg/dL (8.5-10.1) Magnesium Level 2.6 mg/dL (1.8-2.4) Test 11/05/20 08:55 11/05/20 12:24 11/05/20 16:57 11/06/20 08:18 O2 Saturation 93 % (92-99) Arterial Blood pH 7.36 (7.35-7.45) Arterial Blood pCO2 at Patient Temp 44 mmHg (35-46) Arterial Blood pO2 at Patient Temp 73 mmHg (65-108) Arterial Blood HCO3 24 mmol/L (21-28) Arterial Blood Base Excess -1 mmol/L (-3-3) FiO2 30% bipap Glucose (Fingerstick) 104 mg/dL (70-99) 132 mg/dL (70-99) 94 mg/dL (70-99) Test 11/06/20 09:15 11/06/20 11:44 White Blood Count 7.0 x10^3/uL (4.0-11.0) Red Blood Count 3.23 x10^6/uL (3.50-5.40) Hemoglobin 9.8 g/dL (12.0-15.5) Hematocrit 29.7 % (36.0-47.0) Mean Corpuscular Volume 92 fL (79-100) Mean Corpuscular Hemoglobin 30 pg (25-35) Mean Corpuscular Hemoglobin Concent 33 g/dL (31-37) Red Cell Distribution Width 16.5 % (11.5-14.5) Platelet Count 189 x10^3/uL (140-400) Neutrophils (%) (Auto) 76 % (31-73) Lymphocytes (%) (Auto) 8 % (24-48) Monocytes (%) (Auto) 15 % (0-9) Eosinophils (%) (Auto) 0 % (0-3) Basophils (%) (Auto) 1 % (0-3) Neutrophils # (Auto) 5.3 x10^3/uL (1.8-7.7) Lymphocytes # (Auto) 0.5 x10^3/uL (1.0-4.8) Monocytes # (Auto) 1.0 x10^3/uL (0.0-1.1) Eosinophils # (Auto) 0.0 x10^3/uL (0.0-0.7) Basophils # (Auto) 0.1 x10^3/uL (0.0-0.2) Sodium Level 136 mmol/L (136-145) Potassium Level 4.3 mmol/L (3.5-5.1) Chloride Level 100 mmol/L (98-107) Carbon Dioxide Level 26 mmol/L (21-32) Anion Gap 10 (6-14) Blood Urea Nitrogen 48 mg/dL (7-20) Creatinine 3.7 mg/dL (0.6-1.0) Estimated GFR (Cockcroft-Gault) 15.2 Glucose Level 96 mg/dL (70-99) Calcium Level 8.0 mg/dL (8.5-10.1) Glucose (Fingerstick) 92 mg/dL (70-99) Laboratory Tests Test 11/05/20 16:57 11/06/20 08:18 11/06/20 09:15 11/06/20 11:44 Glucose (Fingerstick) 132 mg/dL (70-99) 94 mg/dL (70-99) 92 mg/dL (70-99) White Blood Count 7.0 x10^3/uL (4.0-11.0) Red Blood Count 3.23 x10^6/uL (3.50-5.40) Hemoglobin 9.8 g/dL (12.0-15.5) Hematocrit 29.7 % (36.0-47.0) Mean Corpuscular Volume 92 fL (79-100) Mean Corpuscular Hemoglobin 30 pg (25-35) Mean Corpuscular Hemoglobin Concent 33 g/dL (31-37) Red Cell Distribution Width 16.5 % (11.5-14.5) Platelet Count 189 x10^3/uL (140-400) Neutrophils (%) (Auto) 76 % (31-73) Lymphocytes (%) (Auto) 8 % (24-48) Monocytes (%) (Auto) 15 % (0-9) Eosinophils (%) (Auto) 0 % (0-3) Basophils (%) (Auto) 1 % (0-3) Neutrophils # (Auto) 5.3 x10^3/uL (1.8-7.7) Lymphocytes # (Auto) 0.5 x10^3/uL (1.0-4.8) Monocytes # (Auto) 1.0 x10^3/uL (0.0-1.1) Eosinophils # (Auto) 0.0 x10^3/uL (0.0-0.7) Basophils # (Auto) 0.1 x10^3/uL (0.0-0.2) Sodium Level 136 mmol/L (136-145) Potassium Level 4.3 mmol/L (3.5-5.1) Chloride Level 100 mmol/L (98-107) Carbon Dioxide Level 26 mmol/L (21-32) Anion Gap 10 (6-14) Blood Urea Nitrogen 48 mg/dL (7-20) Creatinine 3.7 mg/dL (0.6-1.0) Estimated GFR (Cockcroft-Gault) 15.2 Glucose Level 96 mg/dL (70-99) Calcium Level 8.0 mg/dL (8.5-10.1) Assessment/Plan Assessment/Plan IMP JACKIE-ATN-CR OF 3.7 CKD STAGE 2 WITH NL BASELINE CR DEHYDRATION [id number] CM WITH EF OF 45% COVID 19 INFECTION RESP FAILURE SCHIZOPHRENIA UTI KLEBSIELLA PLAN STOP DIURESIS HYDRATION REPEAT UA LABS IN AM WILL FOLLOW SUMA SCHMID MD Nov 06, 2020 14:17
--- NOTE | 2020-11-06 16:02 | RAD ---
AP chest. HISTORY: PICC line placement AP view was taken of the chest. There is a right arm PICC line which extends to the superior vena cav a in good position. Left pacemaker is unchanged. There is left retrocardiac density from atelectasis or infiltrate or pleural effusion. There has been no significant change compared to the prior study f rom November 03. IMPRESSION: 1. Right PICC line in good position. 2. Little other change. Electronically signed by: Cecil Krishnan MD (11/06/2020 3:59 PM) [id number]
[2020-11-06] MEDS: DEXAMETHASONE SOD PHOS 4 MG/ML VIAL IVP SCH (16:10)
[2020-11-06] MEDS: IV NORMAL SALINE 1000ML BAG 1,000 ML IV SCH ×2 (16:30→23:41)
[2020-11-06 17:04] LABS: BILIRUBIN,URINE NEGATIVE (NEG); CLARITY,URINE CLEAR; COLOR,URINE YELLOW; NITRITE,URINE NEGATIVE (NEG); PROTEIN,URINE >=300 mg/dL (NEG-TRACE); UROBILINOGEN,URINE 0.2 mg/dL (0.2 mg/dL)
[2020-11-06 17:12] LABS: BACTERIA,URINE 0 /HPF (0-FEW); WBC,URINE OCC /HPF (0-4)
[2020-11-06] MEDS: ATORVASTATIN CALCIUM 10 MG TABLET. PO SCH (21:00)
[2020-11-06] MEDS: FAMOTIDINE 20 MG TABLET. PO SCH (21:09)
[2020-11-06] MEDS: risperiDONE 1 MG TABLET. PO SCH (21:10)
[2020-11-07 03:00] VITALS: BP 134/79
[2020-11-07] MEDS: CALCIUM CARBONATE 500 MG TABLET PO SCH ×5 (04:00→20:04)
[2020-11-07] MEDS: ACETAMINOPHEN 325 MG TABLET. PO SCH ×3 (06:50→17:26)
[2020-11-07] MEDS: LEVOTHYROXINE 112 MCG TABLET PO SCH (06:50)
[2020-11-07] MEDS: METOPROLOL IV PUSH 5 MG/5 ML VIAL. IVP SCH ×3 (06:51→17:26)
[2020-11-07] MEDS: HEPARIN for SUB-Q USE 5,000 UNIT/ML VIAL. SQ SCH ×3 (06:52→21:05)
[2020-11-07 07:00] VITALS: BP 135/69
[2020-11-07 07:19] LABS: BASO % 0 % (0-3); EOS % 0 % (0-3); HEMATOCRIT 28.3 % (36.0-47.0); HEMOGLOBIN 9.4 g/dL (12.0-15.5); LYMPH # 0.4 x10^3/uL (1.0-4.8); LYMPH % 6 % (24-48); MEAN CORPUSCULAR HEMOGLOBIN 30 pg (25-35); MEAN CORPUSCULAR HGB CONC 33 g/dL (31-37); MEAN CORPUSCULAR VOLUME 92 fL (79-100); MONO # 0.5 x10^3/uL (0.0-1.1); MONO % 9 % (0-9); NEUT # 4.8 x10^3/uL (1.8-7.7); NEUT % 84 % (31-73); PLATELET COUNT 168 x10^3/uL (140-400); RED CELL DISTRIBUTION WIDTH 16.6 % (11.5-14.5); WHITE BLOOD COUNT 5.7 x10^3/uL (4.0-11.0)
[2020-11-07 07:24] LABS: CALCIUM 7.5 mg/dL (8.5-10.1); CREATININE 3.3 mg/dL (0.6-1.0); GFR 17.3; POTASSIUM 4.9 mmol/L (3.5-5.1)
[2020-11-07] MEDS: INSULIN LISPRO 300 UNITS/3 ML VIAL. SQ SCH ×3 (08:00→17:27)
[2020-11-07] MEDS: POLYVINYL ALCOHOL 1.4% OPHTH SOLUTION 15ML BOTTLE. OU SCH ×4 (08:00→20:03)
--- NOTE | 2020-11-07 08:41 | PDOC ---
Infectious Disease Note Subjective: Subjective Patient more alert this morning On O2 by nasal cannula Vital Signs: Vital Signs Vital Signs Date Time Temp Pulse Resp B/P (MAP) Pulse Ox O2 Delivery O2 Flow Rate FiO2 11/07/20 08:29 96 Nasal Cannula 4.0 11/07/20 06:51 86 143/80 11/07/20 03:00 24 11/06/20 23:00 97.0 97.0 Physical Exam: PHYSICAL EXAM GENERAL: Alert awake female HEENT: Both pupils are round and reacting. No conjunctival lesion. No lesion in the mouth. NECK: Supple, no JVP, no lymphadenopathy. LUNGS: Clear. HEART: S1, S2 regular. ABDOMEN: Soft bowel sounds present nontender nondistended Fecal tube present EXTREMITIES: No edema or cyanosis. SKIN: Unremarkable. NEUROLOGIC: Alert awake Medications: Inpatient Meds: Current Medications Medications (Trade) Dose Ordered Sig/Eber Start Time Stop Time Status Last Admin Dose Admin Acetaminophen (Tylenol Supp) 650 mg PRN Q6HRS PRN 11/02/20 00:00 11/02/20 07:27 650 MG Acetaminophen (Tylenol) 650 mg Q6HRS 10/31/20 12:00 11/07/20 06:50 650 MG Albuterol Sulfate (Ventolin Hfa) 1 puff PRN Q6HRS PRN 11/04/20 13:45 11/04/20 13:50 1 PUFF Albuterol Sulfate (Ventolin Neb Soln) 2.5 mg PRN Q6HRS PRN 11/03/20 06:00 Albuterol/ Ipratropium (Duoneb) 3 ml PRN Q4HRS PRN 11/02/20 07:00 11/02/20 07:03 DC Amino Acids/ Glycerin/ Electrolytes 1,000 ml @ 80 mls/hr [id number] 11/01/20 13:30 11/06/20 23:40 80 MLS/HR Aspirin (Aspirin Chewable) 81 mg [id number] 10/31/20 08:00 11/01/20 08:41 81 MG Atorvastatin Calcium (Lipitor) 10 mg HS 10/31/20 21:00 11/06/20 21:00 10 MG Atropine Sulfate (ATROPINE 0.5mg SYRINGE) 0.5 mg PRN Q5MIN PRN 12/20/20 12:00 Budesonide (Pulmicort) 0.5 mg RTBID 10/31/20 20:00 11/01/20 13:52 DC Bupropion HCl (Wellbutrin Xl) 150 mg DAILY 10/31/20 12:00 11/01/20 08:42 150 MG Calcium Carbonate/ Glycine (Oscal) 500 mg Q4HRS 10/31/20 12:00 11/06/20 21:10 500 MG Carvedilol (Coreg) 12.5 mg BIDWMEALS 10/31/20 17:00 11/03/20 11:10 DC 11/01/20 08:43 12.5 MG Cetirizine HCl (ZyrTEC) 10 mg DAILY 11/01/20 09:00 11/01/20 08:42 10 MG Clonazepam (KlonoPIN) 0.5 mg BID 10/31/20 12:00 11/06/20 21:10 0.5 MG Clonidine HCl (Catapres) 0.2 mg TID 10/31/20 12:00 11/06/20 21:09 0.2 MG Dexamethasone Sodium Phosphate (Decadron) 6 mg DAILY 11/05/20 09:00 11/06/20 16:10 6 MG Dexmedetomidine HCl 400 mcg/ Sodium Chloride 100 ml @ 0 mls/hr CONT PRN 11/03/20 12:00 11/04/20 05:42 22.1 MLS/HR Dextrose (Dextrose 50%-Water Syringe) 12.5 gm PRN Q15MIN PRN 10/31/20 18:00 UNV Dicyclomine HCl (Bentyl) 20 mg TID 10/31/20 14:00 11/06/20 21:09 20 MG Diphenoxylate HCl/ Atropine (Lomotil) 1 tab TID 10/31/20 14:00 11/06/20 21:10 1 TAB Doxycycline Hyclate (Vibra-Tab) 100 mg BID 11/05/20 09:00 11/05/20 09:43 DC Enoxaparin Sodium (Lovenox 120mg Syringe) 110 mg 1X ONCE 10/30/20 06:15 10/30/20 06:16 DC 10/30/20 06:27 110 MG Etomidate (Amidate) 20 mg STK-MED ONCE 10/30/20 10:43 10/30/20 10:43 DC Famotidine (Pepcid) 20 mg HS 10/31/20 21:00 11/06/20 21:09 20 MG Fentanyl Citrate (Fentanyl 2ml Vial) 50 mcg PRN Q2HR PRN 10/31/20 07:45 10/31/20 20:08 50 MCG Folic Acid (Folic Acid) 0.5 mg DAILY 10/31/20 12:00 10/31/20 13:06 0.5 MG Furosemide (Lasix) 40 mg DAILY 11/03/20 12:00 11/06/20 11:34 DC 11/05/20 10:27 40 MG Gabapentin (Neurontin) 100 mg TID 10/31/20 14:00 11/06/20 21:10 100 MG Glycerin/ Hypromellose/ Polyethylene (Artificial Tears) 2 drop Q4HRS 10/31/20 16:00 11/06/20 20:00 2 DROP Guaifenesin (Robitussin) 200 mg PRN Q4HRS PRN 10/31/20 12:45 10/31/20 20:04 200 MG Haloperidol Lactate (Haldol Inj) 5 mg PRN Q6HRS PRN 11/02/20 11:00 11/06/20 18:08 5 MG Heparin Sodium (Porcine) (Heparin Sodium) 5,000 unit Q8HRS 10/30/20 22:00 11/07/20 06:52 5,000 UNIT Ibuprofen (Motrin) 400 mg PRN Q6HRS PRN 10/31/20 11:15 Insulin Human Lispro (HumaLOG) 0-5 UNITS TIDWMEALS 10/31/20 12:00 Insulin Human Regular (HumuLIN R VIAL) 100 unit BIDWMEALS 10/31/20 17:00 UNV Labetalol HCl (Normodyne Iv Push) 20 mg PRN Q2HR PRN 11/02/20 11:30 11/03/20 00:56 20 MG Lactobacillus Rhamnosus (Culturelle) 1 cap BID 10/31/20 12:00 11/06/20 21:10 1 CAP Levothyroxine Sodium (Synthroid) 112 mcg DAILY06 11/01/20 09:00 11/07/20 06:50 112 MCG Loperamide HCl (Imodium) 2 mg PRN DAILY PRN 10/31/20 11:15 Lorazepam (Ativan Inj) 2 mg PRN Q4HRS PRN 11/02/20 08:30 11/05/20 05:20 2 MG Lorazepam (Ativan) 0.5 mg PRN Q8HRS PRN 10/31/20 11:15 Magnesium Oxide (Magnesium Oxide) 400 mg DAILY 10/31/20 12:00 10/31/20 13:05 400 MG Metformin HCl (Glucophage) 250 mg BIDWMEALS 10/31/20 17:00 Metoprolol Tartrate (Lopressor Vial) 5 mg Q6HRS 11/05/20 08:15 11/07/20 06:51 5 MG Midazolam HCl 100 mg/Sodium Chloride 100 ml @ 0 mls/hr ONCE ONCE 10/30/20 06:45 10/30/20 06:46 DC 10/30/20 07:10 1 MLS/HR Multivitamins (Thera M Plus) 1 tab DAILY 10/31/20 12:30 10/31/20 13:05 1 TAB Non-Formulary Medication (Fluticasone/ Salmeterol (Advair 500-50 Diskus)) 1 puff BID 10/31/20 21:00 UNV Non-Formulary Medication (Peg 400/ Hypromellose/ Glycerin (Artificial Tears Drops)) 1 drop QID 10/31/20 13:00 UNV Non-Formulary Medication (Polyvinyl Alcohol (Tears Again)) 2 drop Q4HRS 10/31/20 12:00 UNV Non-Formulary Medication (Risperidone ) 0.5 mg DAILY 11/01/20 09:00 UNV Norepinephrine Bitartrate 8 mg/ Dextrose 258 ml @ 17.202 mls/ hr CONT PRN 11/03/20 13:45 11/04/20 05:54 8.3 MLS/HR Nystatin (Nystop) 1 luis PRN BID PRN 10/31/20 11:15 Ondansetron HCl (Zofran Odt) 4 mg PRN Q8HRS PRN 10/31/20 12:30 Ondansetron HCl (Zofran) 4 mg PRN Q8HRS PRN 10/30/20 06:00 10/31/20 05:59 DC Piperacillin Sod/ Tazobactam Sod (Zosyn Per Pharmacy) 1 each PRN DAILY PRN 10/30/20 06:00 11/06/20 11:03 DC Piperacillin Sod/ Tazobactam Sod 3.375 gm/Sodium Chloride 50 ml @ 100 mls/hr Q6HRS 11/05/20 12:00 11/06/20 09:15 DC 11/06/20 00:04 100 MLS/HR Piperacillin Sod/ Tazobactam Sod 4.5 gm/Sodium Chloride 100 ml @ 200 mls/hr Q6HRS 10/30/20 12:00 11/04/20 09:59 DC 11/04/20 05:10 200 MLS/HR Polyethylene Glycol (miraLAX PACKET) 17 gm DAILY 10/31/20 12:00 Potassium Bicarbonate (Potassium Effervescent Tablet) 80 meq 1X ONCE 10/31/20 09:45 10/31/20 09:46 DC 10/31/20 13:20 80 MEQ Potassium Chloride (Klor-Con) 10 meq DAILYWBKFT 11/02/20 08:00 Propofol 100 ml @ 3.408 mls/ hr CONT PRN 10/30/20 09:00 10/31/20 12:07 3.408 MLS/HR Risperidone (RisperDAL) 1 mg QHS 10/31/20 21:00 11/06/20 21:10 1 MG Ropinirole HCl (Requip) 2 mg DAILY 11/01/20 09:00 11/01/20 08:53 2 MG Simethicone (Gas-X) 160 mg PRN Q2HR PRN 10/31/20 12:00 11/06/20 17:23 160 MG Sodium Chloride 1,000 ml @ 125 mls/hr Q8H 11/06/20 16:30 11/06/20 23:41 125 MLS/HR Succinylcholine Chloride (Anectine) 200 mg STK-MED ONCE 10/30/20 10:43 10/30/20 10:44 DC Tramadol HCl (Ultram) 50 mg PRN Q6HRS PRN 10/31/20 11:15 Vancomycin HCl (Vanco Per Pharmacy) 1 each PRN DAILY PRN 10/30/20 11:00 10/31/20 11:11 DC 10/31/20 09:51 1 EACH Vancomycin HCl (Vancomycin Trough Level) 1 each 1X ONCE 11/01/20 12:30 10/31/20 13:36 DC Vancomycin HCl 1.75 gm/Sodium Chloride 500 ml @ 250 mls/hr Q24H 10/31/20 13:00 10/31/20 11:11 DC Vitamin B Complex (Dustin B) 1 tab DAILY 10/31/20 12:00 10/31/20 13:04 1 TAB Labs: Lab Laboratory Tests Test 11/06/20 09:15 11/06/20 11:44 11/06/20 16:40 11/06/20 17:14 White Blood Count 7.0 x10^3/uL (4.0-11.0) Red Blood Count 3.23 x10^6/uL (3.50-5.40) Hemoglobin 9.8 g/dL (12.0-15.5) Hematocrit 29.7 % (36.0-47.0) Mean Corpuscular Volume 92 fL (79-100) Mean Corpuscular Hemoglobin 30 pg (25-35) Mean Corpuscular Hemoglobin Concent 33 g/dL (31-37) Red Cell Distribution Width 16.5 % (11.5-14.5) Platelet Count 189 x10^3/uL (140-400) Neutrophils (%) (Auto) 76 % (31-73) Lymphocytes (%) (Auto) 8 % (24-48) Monocytes (%) (Auto) 15 % (0-9) Eosinophils (%) (Auto) 0 % (0-3) Basophils (%) (Auto) 1 % (0-3) Neutrophils # (Auto) 5.3 x10^3/uL (1.8-7.7) Lymphocytes # (Auto) 0.5 x10^3/uL (1.0-4.8) Monocytes # (Auto) 1.0 x10^3/uL (0.0-1.1) Eosinophils # (Auto) 0.0 x10^3/uL (0.0-0.7) Basophils # (Auto) 0.1 x10^3/uL (0.0-0.2) Sodium Level 136 mmol/L (136-145) Potassium Level 4.3 mmol/L (3.5-5.1) Chloride Level 100 mmol/L (98-107) Carbon Dioxide Level 26 mmol/L (21-32) Anion Gap 10 (6-14) Blood Urea Nitrogen 48 mg/dL (7-20) Creatinine 3.7 mg/dL (0.6-1.0) Estimated GFR (Cockcroft-Gault) 15.2 Glucose Level 96 mg/dL (70-99) Calcium Level 8.0 mg/dL (8.5-10.1) Glucose (Fingerstick) 92 mg/dL (70-99) 126 mg/dL (70-99) Urine Collection Type Unknown Urine Color Yellow Urine Clarity Clear Urine pH 6.0 (<5.0-8.0) Urine Specific [place] 1.020 (1.000-1.030) Urine Protein >=300 mg/dL (NEG-TRACE) Urine Glucose (UA) Negative mg/dL (NEG) Urine Ketones (Stick) Negative mg/dL (NEG) Urine Blood Small (NEG) Urine Nitrite Negative (NEG) Urine Bilirubin Negative (NEG) Urine Urobilinogen Dipstick 0.2 mg/dL (0.2 mg/dL) Urine Leukocyte Esterase Negative (NEG) Urine RBC 1-2 /HPF (0-2) Urine WBC Occ /HPF (0-4) Urine Bacteria 0 /HPF (0-FEW) Test 11/07/20 07:05 White Blood Count 5.7 x10^3/uL (4.0-11.0) Red Blood Count 3.10 x10^6/uL (3.50-5.40) Hemoglobin 9.4 g/dL (12.0-15.5) Hematocrit 28.3 % (36.0-47.0) Mean Corpuscular Volume 92 fL (79-100) Mean Corpuscular Hemoglobin 30 pg (25-35) Mean Corpuscular Hemoglobin Concent 33 g/dL (31-37) Red Cell Distribution Width 16.6 % (11.5-14.5) Platelet Count 168 x10^3/uL (140-400) Neutrophils (%) (Auto) 84 % (31-73) Lymphocytes (%) (Auto) 6 % (24-48) Monocytes (%) (Auto) 9 % (0-9) Eosinophils (%) (Auto) 0 % (0-3) Basophils (%) (Auto) 0 % (0-3) Neutrophils # (Auto) 4.8 x10^3/uL (1.8-7.7) Lymphocytes # (Auto) 0.4 x10^3/uL (1.0-4.8) Monocytes # (Auto) 0.5 x10^3/uL (0.0-1.1) Eosinophils # (Auto) 0.0 x10^3/uL (0.0-0.7) Basophils # (Auto) 0.0 x10^3/uL (0.0-0.2) Sodium Level 135 mmol/L (136-145) Potassium Level 4.9 mmol/L (3.5-5.1) Chloride Level 101 mmol/L (98-107) Carbon Dioxide Level 27 mmol/L (21-32) Anion Gap 7 (6-14) Blood Urea Nitrogen 48 mg/dL (7-20) Creatinine 3.3 mg/dL (0.6-1.0) Estimated GFR (Cockcroft-Gault) 17.3 Glucose Level 190 mg/dL (70-99) Calcium Level 7.5 mg/dL (8.5-10.1) Objective: Assessment: COVID positive Blood culture positive 1/4 gram-positive cocci, most likely to be contaminant. Urinary tract infection, Kleb treated Respiratory failure. Pulmonary infiltrate, Encephalopathy. Schizophrenia. Congestive heart failure. Hypertension. Obesity. Plan: Plan of Care P.o. Augmentin CT chest noted cont supportive care Maintain aspiration precaution Discussed with CARRIE HENSON MD Nov 07, 2020 08:41
[2020-11-07] MEDS: DIPHENOXYLATE/ATROPINE TABLET. PO SCH ×3 (09:00→20:05)
[2020-11-07] MEDS: clonazePAM 0.5 MG TABLET PO SCH ×2 (09:04→20:05)
[2020-11-07] MEDS: CETIRIZINE HCL 10 MG TABLET. PO SCH (09:04)
[2020-11-07] MEDS: MAGNESIUM OXIDE 400 MG TABLET PO SCH (09:04)
[2020-11-07] MEDS: GABAPENTIN 100 MG CAPSULE. PO SCH ×3 (09:04→20:11)
[2020-11-07] MEDS: DICYCLOMINE HCL 10 MG CAPSULE PO SCH ×3 (09:04→20:04)
[2020-11-07] MEDS: FOLIC ACID 1 MG TABLET. PO SCH (09:04)
[2020-11-07] MEDS: cloNIDine HCL 0.2 MG TABLET PO SCH ×3 (09:06→20:05)
[2020-11-07] MEDS: ASPIRIN CHEWABLE 81 MG TABLET. PO SCH (09:06)
[2020-11-07] MEDS: LACTOBACILLUS RHAMNOSUS GG 1 CAPSULE. PO SCH ×2 (09:06→20:05)
[2020-11-07] MEDS: metFORMIN 500 MG TABLET PO SCH ×2 (09:07→17:25)
[2020-11-07] MEDS: MULTIVITAMIN with MINERAL TABLET. PO SCH (09:07)
[2020-11-07] MEDS: buPROPion XL 150 MG TAB.ER.24H. PO SCH (09:07)
[2020-11-07] MEDS: rOPINIRole 1 MG TABLET. PO SCH (09:07)
[2020-11-07] MEDS: POTASSIUM CHLORIDE 10 MEQ TABLET.ER. PO SCH (09:08)
[2020-11-07] MEDS: DEXAMETHASONE SOD PHOS 4 MG/ML VIAL IVP SCH (09:08)
[2020-11-07] MEDS: AMINO AC 3%/ELECTROLYTE/GLYCER 1,000 ML IV SCH ×2 (09:09→19:54)
--- NOTE | 2020-11-07 09:21 | PDOC ---
CARDIO Progress Notes Date and Time Date of Service 11/07/2020 Time of Evaluation 1030 Subjective Subjective: No Chest Pain, No Palpitations, Other (SOA better) Vitals Vitals Vital Signs Date Time Temp Pulse Resp B/P (MAP) Pulse Ox O2 Delivery O2 Flow Rate FiO2 11/07/20 09:06 86 143/80 11/07/20 08:29 96 Nasal Cannula 4.0 11/07/20 03:00 24 11/06/20 23:00 97.0 97.0 Weight Weight [ ] Input and Output Intake and Output Intake and Output 11/07/20 07:00 Intake Total 851 ml Output Total 650 ml Balance 201 ml Intake Oral 600 ml IV Total 251 ml Output Urine Total 600 ml Stool Total 50 ml Laboratory Labs Laboratory Tests Test 11/06/20 11:44 11/06/20 16:40 11/06/20 17:14 11/07/20 07:05 Glucose (Fingerstick) 92 mg/dL (70-99) 126 mg/dL (70-99) Urine Collection Type Unknown Urine Color Yellow Urine Clarity Clear Urine pH 6.0 (<5.0-8.0) Urine Specific [place] 1.020 (1.000-1.030) Urine Protein >=300 mg/dL (NEG-TRACE) Urine Glucose (UA) Negative mg/dL (NEG) Urine Ketones (Stick) Negative mg/dL (NEG) Urine Blood Small (NEG) Urine Nitrite Negative (NEG) Urine Bilirubin Negative (NEG) Urine Urobilinogen Dipstick 0.2 mg/dL (0.2 mg/dL) Urine Leukocyte Esterase Negative (NEG) Urine RBC 1-2 /HPF (0-2) Urine WBC Occ /HPF (0-4) Urine Bacteria 0 /HPF (0-FEW) White Blood Count 5.7 x10^3/uL (4.0-11.0) Red Blood Count 3.10 x10^6/uL (3.50-5.40) Hemoglobin 9.4 g/dL (12.0-15.5) Hematocrit 28.3 % (36.0-47.0) Mean Corpuscular Volume 92 fL (79-100) Mean Corpuscular Hemoglobin 30 pg (25-35) Mean Corpuscular Hemoglobin Concent 33 g/dL (31-37) Red Cell Distribution Width 16.6 % (11.5-14.5) Platelet Count 168 x10^3/uL (140-400) Neutrophils (%) (Auto) 84 % (31-73) Lymphocytes (%) (Auto) 6 % (24-48) Monocytes (%) (Auto) 9 % (0-9) Eosinophils (%) (Auto) 0 % (0-3) Basophils (%) (Auto) 0 % (0-3) Neutrophils # (Auto) 4.8 x10^3/uL (1.8-7.7) Lymphocytes # (Auto) 0.4 x10^3/uL (1.0-4.8) Monocytes # (Auto) 0.5 x10^3/uL (0.0-1.1) Eosinophils # (Auto) 0.0 x10^3/uL (0.0-0.7) Basophils # (Auto) 0.0 x10^3/uL (0.0-0.2) Sodium Level 135 mmol/L (136-145) Potassium Level 4.9 mmol/L (3.5-5.1) Chloride Level 101 mmol/L (98-107) Carbon Dioxide Level 27 mmol/L (21-32) Anion Gap 7 (6-14) Blood Urea Nitrogen 48 mg/dL (7-20) Creatinine 3.3 mg/dL (0.6-1.0) Estimated GFR (Cockcroft-Gault) 17.3 Glucose Level 190 mg/dL (70-99) Calcium Level 7.5 mg/dL (8.5-10.1) Microbiology Micro Microbiology 10/30/20 Blood Culture - Final, Complete 10/30/20 Urine Culture - Final, Complete 10/30/20 Antimicrobic Susceptibility - Final, Complete Physical Exam HEENT: Neck Supple W Full Motion Chest: Symmetric Heart: RRR (V paced) Abdomen: Other (soft ) Neurology: alert, oriented, follow commands Other Exams visual exam, discussed with RN, SOA much better no discomfort. Assessment Assessment 1. Acute respiratory failure requiting intubation with a/c CHF and Covid PNA: s/p extubation 2. Acute on chronic systolic CHF: appears compensated 3. NSTEMI: peak trop 1. Most probable type II, demand ischemia 4. Cardiomyopathy: prior EF at 45% 5. PAFIB; periods of AFIB with RVR noted. Maintaining V paced rhythm sinus otherwise 6. Hypertension; controlled 7. Hyperlipidemia; statin. 8. Diabetes, II 9. Hypothyroidism; on replacement 10. Encephalopathy with underlying anxiety, depression, schizoaffective disorder. 11. JACKIE; Cr was at 3.7 down to 3.3 Recommendations Holding diurese, avoid nephrotoxins, IVF ongoing per nephrology Metoprolol for rate control Consider antiarrhythmic therapy if further paroxysms of AFIB noted ASA, statin. Secondary prevention measures Echo outpt when recovered from COVID Ongoing lung optimization Plan outpatient ischemic evaluation Supportive care Justicifation of Admission Dx: Justifications for Admission: Justification of Admission Dx: Yes ANURAG MANRIQUE [employer] Nov 07, 2020 09:21
[2020-11-07] MEDS: POLYETHYLENE GLYCOL 3350 17 GM PACKET. PO SCH (09:53)
[2020-11-07] MEDS: VITAMIN B COMPLEX TABLET. PO SCH (09:53)
--- NOTE | 2020-11-07 10:50 | PDOC ---
Renal-Progress Notes Subjective Notes Notes LESS CONFUSED History of Present Illness Hx of present illness STABLE Vitals Vitals Vital Signs Date Time Temp Pulse Resp B/P (MAP) Pulse Ox O2 Delivery O2 Flow Rate FiO2 11/07/20 09:06 86 143/80 11/07/20 08:29 96 Nasal Cannula 4.0 11/07/20 03:00 24 11/06/20 23:00 97.0 97.0 Weight Weight [ ] I.O. Intake and Output Intake and Output 11/07/20 07:00 Intake Total 851 ml Output Total 650 ml Balance 201 ml Intake Oral 600 ml IV Total 251 ml Output Urine Total 600 ml Stool Total 50 ml Labs Labs Laboratory Tests Test 11/06/20 11:44 11/06/20 16:40 11/06/20 17:14 11/07/20 07:05 Glucose (Fingerstick) 92 mg/dL (70-99) 126 mg/dL (70-99) Urine Collection Type Unknown Urine Color Yellow Urine Clarity Clear Urine pH 6.0 (<5.0-8.0) Urine Specific [place] 1.020 (1.000-1.030) Urine Protein >=300 mg/dL (NEG-TRACE) Urine Glucose (UA) Negative mg/dL (NEG) Urine Ketones (Stick) Negative mg/dL (NEG) Urine Blood Small (NEG) Urine Nitrite Negative (NEG) Urine Bilirubin Negative (NEG) Urine Urobilinogen Dipstick 0.2 mg/dL (0.2 mg/dL) Urine Leukocyte Esterase Negative (NEG) Urine RBC 1-2 /HPF (0-2) Urine WBC Occ /HPF (0-4) Urine Bacteria 0 /HPF (0-FEW) White Blood Count 5.7 x10^3/uL (4.0-11.0) Red Blood Count 3.10 x10^6/uL (3.50-5.40) Hemoglobin 9.4 g/dL (12.0-15.5) Hematocrit 28.3 % (36.0-47.0) Mean Corpuscular Volume 92 fL (79-100) Mean Corpuscular Hemoglobin 30 pg (25-35) Mean Corpuscular Hemoglobin Concent 33 g/dL (31-37) Red Cell Distribution Width 16.6 % (11.5-14.5) Platelet Count 168 x10^3/uL (140-400) Neutrophils (%) (Auto) 84 % (31-73) Lymphocytes (%) (Auto) 6 % (24-48) Monocytes (%) (Auto) 9 % (0-9) Eosinophils (%) (Auto) 0 % (0-3) Basophils (%) (Auto) 0 % (0-3) Neutrophils # (Auto) 4.8 x10^3/uL (1.8-7.7) Lymphocytes # (Auto) 0.4 x10^3/uL (1.0-4.8) Monocytes # (Auto) 0.5 x10^3/uL (0.0-1.1) Eosinophils # (Auto) 0.0 x10^3/uL (0.0-0.7) Basophils # (Auto) 0.0 x10^3/uL (0.0-0.2) Sodium Level 135 mmol/L (136-145) Potassium Level 4.9 mmol/L (3.5-5.1) Chloride Level 101 mmol/L (98-107) Carbon Dioxide Level 27 mmol/L (21-32) Anion Gap 7 (6-14) Blood Urea Nitrogen 48 mg/dL (7-20) Creatinine 3.3 mg/dL (0.6-1.0) Estimated GFR (Cockcroft-Gault) 17.3 Glucose Level 190 mg/dL (70-99) Calcium Level 7.5 mg/dL (8.5-10.1) Test 11/07/20 10:06 Glucose (Fingerstick) 150 mg/dL (70-99) Micro Micro Microbiology 10/30/20 Blood Culture - Final, Complete 10/30/20 Urine Culture - Final, Complete 10/30/20 Antimicrobic Susceptibility - Final, Complete Review of Systems Constitutional: yes: other (CONFUSED BUT LESS SO) Physical Exam General Appearance: no apparent distress Skin: warm Respiratory: decreased breath sounds Heart: S1S2 Abdomen: soft, bowel sounds present Genitourinary: bladder flat Extremities: pulses present Neurology: alert, confused, other Musculoskeletal: Osteoarthritis, Other Assessment Assessment IMP JACKIE-ATN-CR OF 3.7 ON ADMIT - IMPROVED TO 3.3 CKD STAGE 2 WITH NL BASELINE CR DEHYDRATION [id number] CM WITH EF OF 45% COVID 19 INFECTION RESP FAILURE SCHIZOPHRENIA UTI KLEBSIELLA-CLEARING PLAN STOP DIURESIS HYDRATION UO IS IMPROVING LABS IN AM WILL FOLLOW SUMA SCHMID MD Nov 07, 2020 10:50
[2020-11-07 11:00] VITALS: BP 149/90
--- NOTE | 2020-11-07 11:22 | PDOC ---
PULMONARY PROGRESS NOTES DATE: 11/07/20 TIME: 11:21 Subjective Now extubated on 10/31 Patient remains on/off BiPAP, intermittent use of nasal cannula Afebrile Vitals Vital Signs Date Time Temp Pulse Resp B/P (MAP) Pulse Ox O2 Delivery O2 Flow Rate FiO2 11/07/20 09:06 86 143/80 11/07/20 08:29 96 Nasal Cannula 4.0 11/07/20 07:00 98.4 98.4 11/07/20 03:00 24 General: No acute distress Lungs: Clear Cardiovascular: S1, S2 Abdomen: Soft, Non-tender Extremities: Other Skin: Warm, Dry Labs Laboratory Tests Test 11/05/20 12:24 11/05/20 16:57 11/06/20 08:18 11/06/20 09:15 Glucose (Fingerstick) 104 mg/dL (70-99) 132 mg/dL (70-99) 94 mg/dL (70-99) White Blood Count 7.0 x10^3/uL (4.0-11.0) Red Blood Count 3.23 x10^6/uL (3.50-5.40) Hemoglobin 9.8 g/dL (12.0-15.5) Hematocrit 29.7 % (36.0-47.0) Mean Corpuscular Volume 92 fL (79-100) Mean Corpuscular Hemoglobin 30 pg (25-35) Mean Corpuscular Hemoglobin Concent 33 g/dL (31-37) Red Cell Distribution Width 16.5 % (11.5-14.5) Platelet Count 189 x10^3/uL (140-400) Neutrophils (%) (Auto) 76 % (31-73) Lymphocytes (%) (Auto) 8 % (24-48) Monocytes (%) (Auto) 15 % (0-9) Eosinophils (%) (Auto) 0 % (0-3) Basophils (%) (Auto) 1 % (0-3) Neutrophils # (Auto) 5.3 x10^3/uL (1.8-7.7) Lymphocytes # (Auto) 0.5 x10^3/uL (1.0-4.8) Monocytes # (Auto) 1.0 x10^3/uL (0.0-1.1) Eosinophils # (Auto) 0.0 x10^3/uL (0.0-0.7) Basophils # (Auto) 0.1 x10^3/uL (0.0-0.2) Sodium Level 136 mmol/L (136-145) Potassium Level 4.3 mmol/L (3.5-5.1) Chloride Level 100 mmol/L (98-107) Carbon Dioxide Level 26 mmol/L (21-32) Anion Gap 10 (6-14) Blood Urea Nitrogen 48 mg/dL (7-20) Creatinine 3.7 mg/dL (0.6-1.0) Estimated GFR (Cockcroft-Gault) 15.2 Glucose Level 96 mg/dL (70-99) Calcium Level 8.0 mg/dL (8.5-10.1) Test 11/06/20 11:44 11/06/20 16:40 11/06/20 17:14 11/07/20 07:05 Glucose (Fingerstick) 92 mg/dL (70-99) 126 mg/dL (70-99) Urine Collection Type Unknown Urine Color Yellow Urine Clarity Clear Urine pH 6.0 (<5.0-8.0) Urine Specific [place] 1.020 (1.000-1.030) Urine Protein >=300 mg/dL (NEG-TRACE) Urine Glucose (UA) Negative mg/dL (NEG) Urine Ketones (Stick) Negative mg/dL (NEG) Urine Blood Small (NEG) Urine Nitrite Negative (NEG) Urine Bilirubin Negative (NEG) Urine Urobilinogen Dipstick 0.2 mg/dL (0.2 mg/dL) Urine Leukocyte Esterase Negative (NEG) Urine RBC 1-2 /HPF (0-2) Urine WBC Occ /HPF (0-4) Urine Bacteria 0 /HPF (0-FEW) White Blood Count 5.7 x10^3/uL (4.0-11.0) Red Blood Count 3.10 x10^6/uL (3.50-5.40) Hemoglobin 9.4 g/dL (12.0-15.5) Hematocrit 28.3 % (36.0-47.0) Mean Corpuscular Volume 92 fL (79-100) Mean Corpuscular Hemoglobin 30 pg (25-35) Mean Corpuscular Hemoglobin Concent 33 g/dL (31-37) Red Cell Distribution Width 16.6 % (11.5-14.5) Platelet Count 168 x10^3/uL (140-400) Neutrophils (%) (Auto) 84 % (31-73) Lymphocytes (%) (Auto) 6 % (24-48) Monocytes (%) (Auto) 9 % (0-9) Eosinophils (%) (Auto) 0 % (0-3) Basophils (%) (Auto) 0 % (0-3) Neutrophils # (Auto) 4.8 x10^3/uL (1.8-7.7) Lymphocytes # (Auto) 0.4 x10^3/uL (1.0-4.8) Monocytes # (Auto) 0.5 x10^3/uL (0.0-1.1) Eosinophils # (Auto) 0.0 x10^3/uL (0.0-0.7) Basophils # (Auto) 0.0 x10^3/uL (0.0-0.2) Sodium Level 135 mmol/L (136-145) Potassium Level 4.9 mmol/L (3.5-5.1) Chloride Level 101 mmol/L (98-107) Carbon Dioxide Level 27 mmol/L (21-32) Anion Gap 7 (6-14) Blood Urea Nitrogen 48 mg/dL (7-20) Creatinine 3.3 mg/dL (0.6-1.0) Estimated GFR (Cockcroft-Gault) 17.3 Glucose Level 190 mg/dL (70-99) Calcium Level 7.5 mg/dL (8.5-10.1) Test 11/07/20 10:06 Glucose (Fingerstick) 150 mg/dL (70-99) Laboratory Tests Test 11/06/20 11:44 11/06/20 16:40 11/06/20 17:14 11/07/20 07:05 Glucose (Fingerstick) 92 mg/dL (70-99) 126 mg/dL (70-99) Urine Collection Type Unknown Urine Color Yellow Urine Clarity Clear Urine pH 6.0 (<5.0-8.0) Urine Specific [place] 1.020 (1.000-1.030) Urine Protein >=300 mg/dL (NEG-TRACE) Urine Glucose (UA) Negative mg/dL (NEG) Urine Ketones (Stick) Negative mg/dL (NEG) Urine Blood Small (NEG) Urine Nitrite Negative (NEG) Urine Bilirubin Negative (NEG) Urine Urobilinogen Dipstick 0.2 mg/dL (0.2 mg/dL) Urine Leukocyte Esterase Negative (NEG) Urine RBC 1-2 /HPF (0-2) Urine WBC Occ /HPF (0-4) Urine Bacteria 0 /HPF (0-FEW) White Blood Count 5.7 x10^3/uL (4.0-11.0) Red Blood Count 3.10 x10^6/uL (3.50-5.40) Hemoglobin 9.4 g/dL (12.0-15.5) Hematocrit 28.3 % (36.0-47.0) Mean Corpuscular Volume 92 fL (79-100) Mean Corpuscular Hemoglobin 30 pg (25-35) Mean Corpuscular Hemoglobin Concent 33 g/dL (31-37) Red Cell Distribution Width 16.6 % (11.5-14.5) Platelet Count 168 x10^3/uL (140-400) Neutrophils (%) (Auto) 84 % (31-73) Lymphocytes (%) (Auto) 6 % (24-48) Monocytes (%) (Auto) 9 % (0-9) Eosinophils (%) (Auto) 0 % (0-3) Basophils (%) (Auto) 0 % (0-3) Neutrophils # (Auto) 4.8 x10^3/uL (1.8-7.7) Lymphocytes # (Auto) 0.4 x10^3/uL (1.0-4.8) Monocytes # (Auto) 0.5 x10^3/uL (0.0-1.1) Eosinophils # (Auto) 0.0 x10^3/uL (0.0-0.7) Basophils # (Auto) 0.0 x10^3/uL (0.0-0.2) Sodium Level 135 mmol/L (136-145) Potassium Level 4.9 mmol/L (3.5-5.1) Chloride Level 101 mmol/L (98-107) Carbon Dioxide Level 27 mmol/L (21-32) Anion Gap 7 (6-14) Blood Urea Nitrogen 48 mg/dL (7-20) Creatinine 3.3 mg/dL (0.6-1.0) Estimated GFR (Cockcroft-Gault) 17.3 Glucose Level 190 mg/dL (70-99) Calcium Level 7.5 mg/dL (8.5-10.1) Test 11/07/20 10:06 Glucose (Fingerstick) 150 mg/dL (70-99) Medications Active Scripts Medications Dose Route/Sig Max Daily Dose Days Date Category Dose Instructions Lomotil Tablet (Diphenoxylate Hcl/Atropine) 1 Each Tablet 1 Tab PO TID 3 10/28/20 Rx Dicyclomine Hcl 20 Mg Tablet 1 Tab PO TID 10 10/28/20 Rx Zithromax (Azithromycin) 250 Mg Tablet 250 Mg PO DIRECTED 10/28/20 Rx Take 2 PO x 1 days Then take 1 PO q 24 hour for the next 4 days Doxycycline Hyclate 100 Mg Tablet 1 Tab PO BID 3 12/04/19 Rx Culturelle (Lactobacillus Rhamnosus Gg) 1 Each Cap.sprink 1 Cap PO BID 14 12/04/19 Rx Zofran (Ondansetron Hcl) 4 Mg Tablet 4 Mg PO Q8HRS PRN 12/02/19 Reported Tramadol Hcl 50 Mg Tablet 50 Mg PO Q6HRS PRN 12/02/19 Reported Tears Again (Polyvinyl Alcohol) 15 Ml Drops 2 Drop EACHEYE Q4HRS 30 12/02/19 Reported Polyvinyl Alcohol 15 Ml Drops 2 Drop EACHEYE Q4HRS 30 12/02/19 Reported Ropinirole Hcl 1 Mg Tablet 1 Mg PO BID 12/02/19 Reported Pantoprazole Sodium (Pantoprazole Sodium) 40 Mg Tablet.dr 40 Mg PO DAILYAC 12/02/19 Reported B-Complex Plus Vitamin C (B Complex With Vitamin C) 1 Each Tablet 1 Each PO DAILY 12/02/19 Reported Magnesium Oxide 400 Mg Tablet 400 Mg PO DAILY 12/02/19 Reported Loratadine 10 Mg Tablet 10 Mg PO DAILY 12/02/19 Reported Ketotifen Fumarate 5 Ml Drops 1 Drop EACHEYE BID 12/02/19 Reported Humalog (Insulin Lispro) 100 Unit/1 Ml Vial 100 Unit SQ BIDWMEALS 12/02/19 Reported 70 - 150 0 units 151 - 200 0 units 201 - 250 2 units 251 - 300 3 units 301 - 349 4 units if FSBS is under 70 or 350 and over call MD [guaifenesin Syrup] 10 Ml PO Q4HRS PRN 12/02/19 Reported Mucinex (Guaifenesin) 600 Mg Tablet.er 600 Mg PO BID 12/02/19 Reported Coreg (Carvedilol) 25 Mg Tablet 50 Mg PO BIDWMEALS 12/02/19 Reported Peridex (Chlorhexidine Gluconate) 15 Ml Mouthwash 15 Ml PO BID 30 12/02/19 Reported Swish in mouth for 30 seconds then spit out Calcium Carbonate 500 Mg Tablet 500 Mg PO Q4HRS 12/02/19 Reported Atorvastatin Calcium 10 Mg Tablet 10 Mg PO HS 12/02/19 Reported Acetaminophen 325 Mg Tablet 650 Mg PO Q6HRS 12/02/19 Reported Metformin Hcl 500 Mg Tablet 250 Mg PO BIDWMEALS 12/03/18 Reported Imodium A-D (Loperamide HCl) 2 Mg Capsule 2 Mg PO DAILY PRN 12/03/18 Reported Risperidone 0.5 Mg Tablet 0.5 Mg PO DAILY 03/21/18 Reported Risperidone 1 Mg Tablet 1 Tab PO QHS 03/21/18 Reported Levothyroxine Sodium 112 Mcg Tablet 1 Tab PO DAILY 03/21/18 Reported Advair 500-50 Diskus (Fluticasone/Salmeterol) 1 Each Disk.w.dev 1 Puff IH BID 03/21/18 Reported Nystatin 15 Gm Powder 1 Scott TP PRN BID PRN 03/21/18 Reported Clonazepam (Clonazepam) 0.5 Mg Tablet 1 Tab PO BID 09/30/16 Reported Montelukast Sodium Tablet (Montelukast Sodium) 10 Mg Tablet 1 Tab PO HS 02/18/16 Reported Gas-X (Simethicone) 80 Mg Tab.chew 160 Mg PO Q2HR PRN 02/18/16 Reported Gabapentin (Gabapentin) 100 Mg Capsule 100 Mg PO TID 02/18/16 Reported Comments CXR 11/03 Impression: 1. The ET and NG tubes have been removed. 2. Left lower lobe atelectasis and/or infiltrate with probable small left pleural effusion, unchanged. ct chest 1. Cardiomegaly. 2. Increased consolidative opacities in the left lung and scattered groundglass opacities in the right lung are suspicious for pneumonia. Some of the opacities in the left upper lobe are chronic scarring or atelectasis present on prior exam. 3. New trace bilateral pleural effusions. No large or drainable pleural effusion. Electronically signed by: Renetta Edouard MD (11/04/2020 4:07 PM) [id number] Impression . IMPRESSION: 1. Acute on chronic hypoxemic hypercapnic respiratory failure, now extubated off BIPAP 2. Abnormal x-ray compatible with acute on chronic congestive heart failure,/ COVID-19. 3. Abnormal ct chest c/w COVID-19 PNEUMONIA/ ? BACTERIAL PNA 4. COVID-19 5. Acute metabolic toxic encephalopathy. 6. History of status post pacemaker defibrillator implantation. 7. Restless legs syndrome. 8. Schizoaffective disorder. 9. Acute on chronic systolic heart failure. 9. Non-ST segment elevation myocardial infarction. 10. Cardiomyopathy, ejection fraction on 11/2019 revealed EF of 45%. 11. Atrial fibrillation with V paced, currently underlying sinus rhythm. 12. Hyperlipidemia. 13. Hypothyroidism. 14. Fever, rule out bacteremia. 15. Sepsis. Plan . PLAN: Continue supplemental oxygen , use BIPAP 35%,qhs , intermittent nasal cannula as tolerated keep oxygen saturations greater than 92% Extubated on , avoid sedative medications PRN haldol for agitation Continue ABX per infectious disease: zosyn Follow cardiology recs Continue Diureses, PT/OT/ST PPN for nutritional support, Failed swallow study DVT/GI PPX discussed advance directives with son 11/05. full code D/W RN and RT MERRY STOKES MD Nov 07, 2020 11:22
--- NOTE | 2020-11-07 11:46 | NUR ---
SS following up with discharge planning. SS reviewed pt chart and discussed with pt RN. Pt is now on nasal canula oxygen at two liters. Pt on Dysphagia I diet with honey thick liquids. ST following. COVID19 positive. Rectal tube in place. Pt is LTC resident from [facility], ; fax [phone], and is able to return when medically stable for discharge. SS phoned and faxed clinical updates to [facility]. SS will continue to follow for discharge planning.
--- NOTE | 2020-11-07 12:33 | PDOC ---
[employer] PROGRESS NOTE Date of Service DOS: DATE: 11/07/20 TIME: 12:32 Chief Complaint Chief Complaint COVID Positive Acute hypoxemic hypercapnic respiratory failure Acute on chronic heart failure Blood cultures positive Heart failure PMH MD AICD in UTI Hypocalcemia Hypertriglyceridemia Anemia Low platelets Hypoglycemia (43) Elevated Cr History of Present Illness History of Present Illness 10/31 Patient seen and examined in ICU Patient sedated with propofol Possible COVID - pending under investigation Discussed with RN Chart reviewed Blood culture positive Vent settings as follows AC/18/450/40 11/01 Patient is COVID positive Patient seen and examined in ICU Patient sedated with propofol Discussed with RN Discussed with [employer] Chart reviewed Blood cultures are positive 11/02 Patient is COVID positive Patient seen and examined in ICU Propofol IV Discussed with RN Chart Reviewed Blood cultures positive 11/03/2020 Patient resting w/ NAD on Bipap Patient is COVID positive Patient seen and examined in ICU Propofol IV Discussed with RN Chart Reviewed Blood cultures positive 11/04/2020 Patient seen and evaluated. Tachypneic, afebrile. Still breathing on BiPAP. Continue IV Zosyn, positive blood cultures most likely contaminant. Continue diuresis. She is on Levophed and Precedex. Still with some agitation. CT chest pending to evaluate possible thoracentesis. Total time spent 35 minutes, >50% time spent reviewing charts, reviewing labs, discussing with RN and healthcare social worker. 11/05/2020 Patient seen and evaluated. She is still intermittently requiring BiPAP. Afebrile, tachypneic, tachycardic. Sedated with Haldol. CT chest yesterday showing trace bilateral pleural effusion, no drainable fluid collection. Continue COVID-19 treatment with steroids and supportive care. 11/06/2020 Patient seen and evaluated, status post extubation 10/31. Afebrile, tachycardic. She is breathing intermittently on BiPAP, currently on 2 L nasal cannula. States she is hungry, swallow eval pending. Continue steroids and antibiotics, per ID. Continue diuresis. 11/07/2020 Patient seen evaluate bedside. Status post extubation on 1217. Rising creatinine of 3.3. Pending nephrology evaluation.> 50% time spent in patient chart, labs, and imaging review and in discussion with RN and SW Vitals/I&O Vitals/I&O: Vital Signs Date Time Temp Pulse Resp B/P (MAP) Pulse Ox O2 Delivery O2 Flow Rate FiO2 11/07/20 11:00 98.2 78 21 149/90 (109) 92 Nasal Cannula 2.0 98.2 I & O 11/06/20 11/06/20 11/07/20 15:00 23:00 07:00 Intake Total 851 ml Output Total 300 ml 350 ml Balance -300 ml 501 ml Physical Exam Physical Exam: GENERAL: Alert awake female HEENT: Both pupils are round and reacting. No conjunctival lesion. No lesion in the mouth. NECK: Supple, no JVP, no lymphadenopathy. LUNGS: Clear. HEART: S1, S2 regular. ABDOMEN: Soft bowel sounds present nontender nondistended Fecal tube present EXTREMITIES: No edema or cyanosis. SKIN: Unremarkable. NEUROLOGIC: Alert awake General: Alert, Cooperative, No acute distress Heart: Regular rate Lungs: Clear Abdomen: Normal bowel sounds Extremities: No clubbing Skin: No breakdown Labs Labs: Laboratory Tests Test 11/06/20 16:40 11/06/20 17:14 11/07/20 07:05 11/07/20 10:06 Urine Collection Type Unknown Urine Color Yellow Urine Clarity Clear Urine pH 6.0 (<5.0-8.0) Urine Specific [place] 1.020 (1.000-1.030) Urine Protein >=300 mg/dL (NEG-TRACE) Urine Glucose (UA) Negative mg/dL (NEG) Urine Ketones (Stick) Negative mg/dL (NEG) Urine Blood Small (NEG) Urine Nitrite Negative (NEG) Urine Bilirubin Negative (NEG) Urine Urobilinogen Dipstick 0.2 mg/dL (0.2 mg/dL) Urine Leukocyte Esterase Negative (NEG) Urine RBC 1-2 /HPF (0-2) Urine WBC Occ /HPF (0-4) Urine Bacteria 0 /HPF (0-FEW) Glucose (Fingerstick) 126 mg/dL (70-99) 150 mg/dL (70-99) White Blood Count 5.7 x10^3/uL (4.0-11.0) Red Blood Count 3.10 x10^6/uL (3.50-5.40) Hemoglobin 9.4 g/dL (12.0-15.5) Hematocrit 28.3 % (36.0-47.0) Mean Corpuscular Volume 92 fL (79-100) Mean Corpuscular Hemoglobin 30 pg (25-35) Mean Corpuscular Hemoglobin Concent 33 g/dL (31-37) Red Cell Distribution Width 16.6 % (11.5-14.5) Platelet Count 168 x10^3/uL (140-400) Neutrophils (%) (Auto) 84 % (31-73) Lymphocytes (%) (Auto) 6 % (24-48) Monocytes (%) (Auto) 9 % (0-9) Eosinophils (%) (Auto) 0 % (0-3) Basophils (%) (Auto) 0 % (0-3) Neutrophils # (Auto) 4.8 x10^3/uL (1.8-7.7) Lymphocytes # (Auto) 0.4 x10^3/uL (1.0-4.8) Monocytes # (Auto) 0.5 x10^3/uL (0.0-1.1) Eosinophils # (Auto) 0.0 x10^3/uL (0.0-0.7) Basophils # (Auto) 0.0 x10^3/uL (0.0-0.2) Sodium Level 135 mmol/L (136-145) Potassium Level 4.9 mmol/L (3.5-5.1) Chloride Level 101 mmol/L (98-107) Carbon Dioxide Level 27 mmol/L (21-32) Anion Gap 7 (6-14) Blood Urea Nitrogen 48 mg/dL (7-20) Creatinine 3.3 mg/dL (0.6-1.0) Estimated GFR (Cockcroft-Gault) 17.3 Glucose Level 190 mg/dL (70-99) Calcium Level 7.5 mg/dL (8.5-10.1) Assessment and Plan Assessmemt and Plan Problems Medical Problems: (1) AMS (altered mental status) Status: Acute (2) Hypercapnia Status: Acute (3) Person under investigation for COVID-19 Status: Acute (4) Respiratory failure Status: Acute (5) UTI (urinary tract infection) Status: Acute Comment Review of Relevant I have reviewed the following items lucas (where applicable) has been applied. Medications: Current Medications Medications (Trade) Dose Ordered Sig/Eber Route PRN Reason Start Time Stop Time Status Last Admin Dose Admin Sodium Chloride 1,000 ml @ 125 mls/hr Q8H IV 11/06/20 16:30 11/07/20 10:52 DC 11/06/20 23:41 Justifications for Admission Other Justification SARAVANAN VINCENT MD Nov 07, 2020 12:33
[2020-11-07] MEDS: AMOXICILLIN/K CLAV 500/125MG TABLET. PO SCH ×2 (12:34→20:04)
[2020-11-07 15:00] VITALS: BP 153/80
[2020-11-07 19:00] VITALS: BP 140/80
[2020-11-07] MEDS: FAMOTIDINE 20 MG TABLET. PO SCH (20:06)
[2020-11-07] MEDS: ATORVASTATIN CALCIUM 10 MG TABLET. PO SCH (20:06)
[2020-11-07] MEDS: risperiDONE 1 MG TABLET. PO SCH (20:06)
[2020-11-07] MEDS: HALOPERIDOL LACTATE 5 MG/ML VIAL. IVP PRN (20:11)
[2020-11-07 23:00] VITALS: BP 148/82
[2020-11-08] MEDS: ACETAMINOPHEN 325 MG TABLET. PO SCH ×4 (00:32→18:29)
[2020-11-08] MEDS: CALCIUM CARBONATE 500 MG TABLET PO SCH ×6 (00:32→20:39)
[2020-11-08] MEDS: POLYVINYL ALCOHOL 1.4% OPHTH SOLUTION 15ML BOTTLE. OU SCH ×6 (00:42→20:00)
[2020-11-08] MEDS: METOPROLOL IV PUSH 5 MG/5 ML VIAL. IVP SCH ×4 (00:46→18:30)
[2020-11-08 03:30] VITALS: BP 119/72
--- NOTE | 2020-11-08 04:22 | NUR ---
Patient c/o "my bottom hurts". Upon turning patient to assess bottom rectal tube noted to be laying in bed no longer in patient's rectum. "I don't want that back in".
[2020-11-08] MEDS: AMINO AC 3%/ELECTROLYTE/GLYCER 1,000 ML IV SCH ×2 (05:41→15:11)
[2020-11-08] MEDS: HEPARIN for SUB-Q USE 5,000 UNIT/ML VIAL. SQ SCH ×3 (05:42→21:13)
[2020-11-08] MEDS: LEVOTHYROXINE 112 MCG TABLET PO SCH (05:44)
[2020-11-08 06:42] LABS: CALCIUM 8.2 mg/dL (8.5-10.1); CREATININE 2.9 mg/dL (0.6-1.0); GFR 20.1; POTASSIUM 5.5 mmol/L (3.5-5.1)
[2020-11-08 07:23] LABS: BASO # 0.1 x10^3/uL (0.0-0.2); BASO % 1 % (0-3); EOS % 0 % (0-3); HEMATOCRIT 28.8 % (36.0-47.0); HEMOGLOBIN 9.3 g/dL (12.0-15.5); LYMPH # 0.5 x10^3/uL (1.0-4.8); LYMPH % 6 % (24-48); MEAN CORPUSCULAR HEMOGLOBIN 30 pg (25-35); MEAN CORPUSCULAR HGB CONC 32 g/dL (31-37); MEAN CORPUSCULAR VOLUME 91 fL (79-100); MONO # 0.8 x10^3/uL (0.0-1.1); MONO % 11 % (0-9); NEUT % 82 % (31-73); PLATELET COUNT 203 x10^3/uL (140-400); RED BLOOD COUNT 3.15 x10^6/uL (3.50-5.40); RED CELL DISTRIBUTION WIDTH 16.4 % (11.5-14.5); WHITE BLOOD COUNT 7.3 x10^3/uL (4.0-11.0)
[2020-11-08 07:30] VITALS: BP 140/70
[2020-11-08] MEDS: INSULIN LISPRO 300 UNITS/3 ML VIAL. SQ SCH ×3 (08:00→17:38)
[2020-11-08] MEDS: POTASSIUM CHLORIDE 10 MEQ TABLET.ER. PO SCH (08:00)
[2020-11-08] MEDS: LACTOBACILLUS RHAMNOSUS GG 1 CAPSULE. PO SCH ×2 (09:00→20:38)
[2020-11-08] MEDS: POLYETHYLENE GLYCOL 3350 17 GM PACKET. PO SCH (09:13)
[2020-11-08] MEDS: rOPINIRole 1 MG TABLET. PO SCH (09:13)
[2020-11-08] MEDS: FOLIC ACID 1 MG TABLET. PO SCH (09:13)
[2020-11-08] MEDS: VITAMIN B COMPLEX TABLET. PO SCH (09:14)
[2020-11-08] MEDS: AMOXICILLIN/K CLAV 500/125MG TABLET. PO SCH (09:14)
[2020-11-08] MEDS: MULTIVITAMIN with MINERAL TABLET. PO SCH (09:14)
[2020-11-08] MEDS: GABAPENTIN 100 MG CAPSULE. PO SCH ×3 (09:14→20:40)
[2020-11-08] MEDS: DIPHENOXYLATE/ATROPINE TABLET. PO SCH ×3 (09:14→20:40)
[2020-11-08] MEDS: MAGNESIUM OXIDE 400 MG TABLET PO SCH (09:14)
[2020-11-08] MEDS: cloNIDine HCL 0.2 MG TABLET PO SCH ×3 (09:15→21:12)
[2020-11-08] MEDS: CETIRIZINE HCL 10 MG TABLET. PO SCH (09:15)
[2020-11-08] MEDS: DICYCLOMINE HCL 10 MG CAPSULE PO SCH ×3 (09:15→20:38)
[2020-11-08] MEDS: buPROPion XL 150 MG TAB.ER.24H. PO SCH (09:15)
[2020-11-08] MEDS: clonazePAM 0.5 MG TABLET PO SCH ×2 (09:15→21:12)
[2020-11-08] MEDS: ASPIRIN CHEWABLE 81 MG TABLET. PO SCH (09:15)
[2020-11-08] MEDS: DEXAMETHASONE SOD PHOS 4 MG/ML VIAL IVP SCH (09:16)
--- NOTE | 2020-11-08 09:29 | PDOC ---
PULMONARY PROGRESS NOTES DATE: 11/08/20 TIME: 09:27 Subjective Now extubated on 10/31 BIPAP at night and N/C during the day Afebrile No overnight concerns from nursing Vitals Vital Signs Date Time Temp Pulse Resp B/P (MAP) Pulse Ox O2 Delivery O2 Flow Rate FiO2 11/08/20 09:15 80 11/08/20 05:44 119/72 11/08/20 03:30 98.1 22 96 Nasal Cannula 4.0 98.1 ROS: No Nausea, No Chest Pain, No Abdominal Pain, No Increase Cough General: Alert, No acute distress, Confused Lungs: Clear Cardiovascular: S1, S2 Abdomen: Soft, Non-tender Extremities: Other Skin: Warm, Dry Labs Laboratory Tests Test 11/06/20 11:44 11/06/20 16:40 11/06/20 17:14 11/07/20 07:05 Glucose (Fingerstick) 92 mg/dL (70-99) 126 mg/dL (70-99) Urine Collection Type Unknown Urine Color Yellow Urine Clarity Clear Urine pH 6.0 (<5.0-8.0) Urine Specific [place] 1.020 (1.000-1.030) Urine Protein >=300 mg/dL (NEG-TRACE) Urine Glucose (UA) Negative mg/dL (NEG) Urine Ketones (Stick) Negative mg/dL (NEG) Urine Blood Small (NEG) Urine Nitrite Negative (NEG) Urine Bilirubin Negative (NEG) Urine Urobilinogen Dipstick 0.2 mg/dL (0.2 mg/dL) Urine Leukocyte Esterase Negative (NEG) Urine RBC 1-2 /HPF (0-2) Urine WBC Occ /HPF (0-4) Urine Bacteria 0 /HPF (0-FEW) White Blood Count 5.7 x10^3/uL (4.0-11.0) Red Blood Count 3.10 x10^6/uL (3.50-5.40) Hemoglobin 9.4 g/dL (12.0-15.5) Hematocrit 28.3 % (36.0-47.0) Mean Corpuscular Volume 92 fL (79-100) Mean Corpuscular Hemoglobin 30 pg (25-35) Mean Corpuscular Hemoglobin Concent 33 g/dL (31-37) Red Cell Distribution Width 16.6 % (11.5-14.5) Platelet Count 168 x10^3/uL (140-400) Neutrophils (%) (Auto) 84 % (31-73) Lymphocytes (%) (Auto) 6 % (24-48) Monocytes (%) (Auto) 9 % (0-9) Eosinophils (%) (Auto) 0 % (0-3) Basophils (%) (Auto) 0 % (0-3) Neutrophils # (Auto) 4.8 x10^3/uL (1.8-7.7) Lymphocytes # (Auto) 0.4 x10^3/uL (1.0-4.8) Monocytes # (Auto) 0.5 x10^3/uL (0.0-1.1) Eosinophils # (Auto) 0.0 x10^3/uL (0.0-0.7) Basophils # (Auto) 0.0 x10^3/uL (0.0-0.2) Sodium Level 135 mmol/L (136-145) Potassium Level 4.9 mmol/L (3.5-5.1) Chloride Level 101 mmol/L (98-107) Carbon Dioxide Level 27 mmol/L (21-32) Anion Gap 7 (6-14) Blood Urea Nitrogen 48 mg/dL (7-20) Creatinine 3.3 mg/dL (0.6-1.0) Estimated GFR (Cockcroft-Gault) 17.3 Glucose Level 190 mg/dL (70-99) Calcium Level 7.5 mg/dL (8.5-10.1) Test 11/07/20 10:06 11/07/20 12:48 11/07/20 17:15 11/07/20 20:33 Glucose (Fingerstick) 150 mg/dL (70-99) 193 mg/dL (70-99) 215 mg/dL (70-99) 233 mg/dL (70-99) Test 11/08/20 06:00 White Blood Count 7.3 x10^3/uL (4.0-11.0) Red Blood Count 3.15 x10^6/uL (3.50-5.40) Hemoglobin 9.3 g/dL (12.0-15.5) Hematocrit 28.8 % (36.0-47.0) Mean Corpuscular Volume 91 fL (79-100) Mean Corpuscular Hemoglobin 30 pg (25-35) Mean Corpuscular Hemoglobin Concent 32 g/dL (31-37) Red Cell Distribution Width 16.4 % (11.5-14.5) Platelet Count 203 x10^3/uL (140-400) Neutrophils (%) (Auto) 82 % (31-73) Lymphocytes (%) (Auto) 6 % (24-48) Monocytes (%) (Auto) 11 % (0-9) Eosinophils (%) (Auto) 0 % (0-3) Basophils (%) (Auto) 1 % (0-3) Neutrophils # (Auto) 6.0 x10^3/uL (1.8-7.7) Lymphocytes # (Auto) 0.5 x10^3/uL (1.0-4.8) Monocytes # (Auto) 0.8 x10^3/uL (0.0-1.1) Eosinophils # (Auto) 0.0 x10^3/uL (0.0-0.7) Basophils # (Auto) 0.1 x10^3/uL (0.0-0.2) Sodium Level 133 mmol/L (136-145) Potassium Level 5.5 mmol/L (3.5-5.1) Chloride Level 96 mmol/L (98-107) Carbon Dioxide Level 26 mmol/L (21-32) Anion Gap 11 (6-14) Blood Urea Nitrogen 59 mg/dL (7-20) Creatinine 2.9 mg/dL (0.6-1.0) Estimated GFR (Cockcroft-Gault) 20.1 Glucose Level 156 mg/dL (70-99) Calcium Level 8.2 mg/dL (8.5-10.1) Laboratory Tests Test 11/07/20 10:06 11/07/20 12:48 11/07/20 17:15 11/07/20 20:33 Glucose (Fingerstick) 150 mg/dL (70-99) 193 mg/dL (70-99) 215 mg/dL (70-99) 233 mg/dL (70-99) Test 11/08/20 06:00 White Blood Count 7.3 x10^3/uL (4.0-11.0) Red Blood Count 3.15 x10^6/uL (3.50-5.40) Hemoglobin 9.3 g/dL (12.0-15.5) Hematocrit 28.8 % (36.0-47.0) Mean Corpuscular Volume 91 fL (79-100) Mean Corpuscular Hemoglobin 30 pg (25-35) Mean Corpuscular Hemoglobin Concent 32 g/dL (31-37) Red Cell Distribution Width 16.4 % (11.5-14.5) Platelet Count 203 x10^3/uL (140-400) Neutrophils (%) (Auto) 82 % (31-73) Lymphocytes (%) (Auto) 6 % (24-48) Monocytes (%) (Auto) 11 % (0-9) Eosinophils (%) (Auto) 0 % (0-3) Basophils (%) (Auto) 1 % (0-3) Neutrophils # (Auto) 6.0 x10^3/uL (1.8-7.7) Lymphocytes # (Auto) 0.5 x10^3/uL (1.0-4.8) Monocytes # (Auto) 0.8 x10^3/uL (0.0-1.1) Eosinophils # (Auto) 0.0 x10^3/uL (0.0-0.7) Basophils # (Auto) 0.1 x10^3/uL (0.0-0.2) Sodium Level 133 mmol/L (136-145) Potassium Level 5.5 mmol/L (3.5-5.1) Chloride Level 96 mmol/L (98-107) Carbon Dioxide Level 26 mmol/L (21-32) Anion Gap 11 (6-14) Blood Urea Nitrogen 59 mg/dL (7-20) Creatinine 2.9 mg/dL (0.6-1.0) Estimated GFR (Cockcroft-Gault) 20.1 Glucose Level 156 mg/dL (70-99) Calcium Level 8.2 mg/dL (8.5-10.1) Medications Active Scripts Medications Dose Route/Sig Max Daily Dose Days Date Category Dose Instructions Lomotil Tablet (Diphenoxylate Hcl/Atropine) 1 Each Tablet 1 Tab PO TID 3 10/28/20 Rx Dicyclomine Hcl 20 Mg Tablet 1 Tab PO TID 10 10/28/20 Rx Zithromax (Azithromycin) 250 Mg Tablet 250 Mg PO DIRECTED 10/28/20 Rx Take 2 PO x 1 days Then take 1 PO q 24 hour for the next 4 days Doxycycline Hyclate 100 Mg Tablet 1 Tab PO BID 3 12/04/19 Rx Culturelle (Lactobacillus Rhamnosus Gg) 1 Each Cap.sprink 1 Cap PO BID 14 12/04/19 Rx Zofran (Ondansetron Hcl) 4 Mg Tablet 4 Mg PO Q8HRS PRN 12/02/19 Reported Tramadol Hcl 50 Mg Tablet 50 Mg PO Q6HRS PRN 12/02/19 Reported Tears Again (Polyvinyl Alcohol) 15 Ml Drops 2 Drop EACHEYE Q4HRS 30 12/02/19 Reported Polyvinyl Alcohol 15 Ml Drops 2 Drop EACHEYE Q4HRS 30 12/02/19 Reported Ropinirole Hcl 1 Mg Tablet 1 Mg PO BID 12/02/19 Reported Pantoprazole Sodium (Pantoprazole Sodium) 40 Mg Tablet.dr 40 Mg PO DAILYAC 12/02/19 Reported B-Complex Plus Vitamin C (B Complex With Vitamin C) 1 Each Tablet 1 Each PO DAILY 12/02/19 Reported Magnesium Oxide 400 Mg Tablet 400 Mg PO DAILY 12/02/19 Reported Loratadine 10 Mg Tablet 10 Mg PO DAILY 12/02/19 Reported Ketotifen Fumarate 5 Ml Drops 1 Drop EACHEYE BID 12/02/19 Reported Humalog (Insulin Lispro) 100 Unit/1 Ml Vial 100 Unit SQ BIDWMEALS 12/02/19 Reported 70 - 150 0 units 151 - 200 0 units 201 - 250 2 units 251 - 300 3 units 301 - 349 4 units if FSBS is under 70 or 350 and over call MD [guaifenesin Syrup] 10 Ml PO Q4HRS PRN 12/02/19 Reported Mucinex (Guaifenesin) 600 Mg Tablet.er 600 Mg PO BID 12/02/19 Reported Coreg (Carvedilol) 25 Mg Tablet 50 Mg PO BIDWMEALS 12/02/19 Reported Peridex (Chlorhexidine Gluconate) 15 Ml Mouthwash 15 Ml PO BID 30 12/02/19 Reported Swish in mouth for 30 seconds then spit out Calcium Carbonate 500 Mg Tablet 500 Mg PO Q4HRS 12/02/19 Reported Atorvastatin Calcium 10 Mg Tablet 10 Mg PO HS 12/02/19 Reported Acetaminophen 325 Mg Tablet 650 Mg PO Q6HRS 12/02/19 Reported Metformin Hcl 500 Mg Tablet 250 Mg PO BIDWMEALS 12/03/18 Reported Imodium A-D (Loperamide HCl) 2 Mg Capsule 2 Mg PO DAILY PRN 12/03/18 Reported Risperidone 0.5 Mg Tablet 0.5 Mg PO DAILY 03/21/18 Reported Risperidone 1 Mg Tablet 1 Tab PO QHS 03/21/18 Reported Levothyroxine Sodium 112 Mcg Tablet 1 Tab PO DAILY 03/21/18 Reported Advair 500-50 Diskus (Fluticasone/Salmeterol) 1 Each Disk.w.dev 1 Puff IH BID 03/21/18 Reported Nystatin 15 Gm Powder 1 Scott TP PRN BID PRN 03/21/18 Reported Clonazepam (Clonazepam) 0.5 Mg Tablet 1 Tab PO BID 09/30/16 Reported Montelukast Sodium Tablet (Montelukast Sodium) 10 Mg Tablet 1 Tab PO HS 02/18/16 Reported Gas-X (Simethicone) 80 Mg Tab.chew 160 Mg PO Q2HR PRN 02/18/16 Reported Gabapentin (Gabapentin) 100 Mg Capsule 100 Mg PO TID 02/18/[address] chest 1. Cardiomegaly. 2. Increased consolidative opacities in the left lung and scattered groundglass opacities in the right lung are suspicious for pneumonia. Some of the opacities in the left upper lobe are chronic scarring or atelectasis present on prior exam. 3. New trace bilateral pleural effusions. No large or drainable pleural effusion. Electronically signed by: Renetta Edouard MD (11/04/2020 4:07 PM) [id number] Impression . IMPRESSION: 1. Acute on chronic hypoxemic hypercapnic respiratory failure, now extubated off BIPAP, improving 2. Abnormal x-ray compatible with acute on chronic congestive heart failure,/ COVID-19. 3. Abnormal ct chest c/w COVID-19 PNEUMONIA/ ? BACTERIAL PNA 4. COVID-19 5. Acute metabolic toxic encephalopathy. 6. History of status post pacemaker defibrillator implantation. 7. Restless legs syndrome. 8. Schizoaffective disorder. 9. Acute on chronic systolic heart failure. 9. Non-ST segment elevation myocardial infarction. 10. Cardiomyopathy, ejection fraction on 11/2019 revealed EF of 45%. 11. Atrial fibrillation with V paced, currently underlying sinus rhythm. 12. Hyperlipidemia. 13. Hypothyroidism. 14. Fever, rule out bacteremia. 15. Sepsis. Plan . PLAN: Continue supplemental oxygen , use BIPAP 35%,qhs , intermittent nasal cannula as tolerated keep oxygen saturations greater than 92% Extubated on 121, avoid sedative medications PRN haldol for agitation Continue ABX per infectious disease: now on amoxicillin po Follow cardiology recs Follow nephrology recs, renal function improving PT/OT/ST PPN for nutritional support, Failed swallow study DVT/GI PPX D/W RN and RT MERRY STOKES MD Nov 08, 2020 09:29
--- NOTE | 2020-11-08 10:44 | PDOC ---
Infectious Disease Note Subjective: Subjective Patient remains on nasal O2 Vital Signs: Vital Signs Vital Signs Date Time Temp Pulse Resp B/P (MAP) Pulse Ox O2 Delivery O2 Flow Rate FiO2 11/08/20 09:15 80 11/08/20 05:44 119/72 11/08/20 03:30 98.1 22 96 Nasal Cannula 4.0 98.1 Physical Exam: PHYSICAL EXAM GENERAL: Alert awake female HEENT: Both pupils are round and reacting. No conjunctival lesion. No lesion in the mouth. NECK: Supple, no JVP, no lymphadenopathy. LUNGS: Clear. HEART: S1, S2 regular. ABDOMEN: Soft bowel sounds present nontender nondistended Fecal tube present EXTREMITIES: No edema or cyanosis. SKIN: Unremarkable. NEUROLOGIC: Alert awake Medications: Inpatient Meds: Current Medications Medications (Trade) Dose Ordered Sig/Eber Start Time Stop Time Status Last Admin Dose Admin Acetaminophen (Tylenol Supp) 650 mg PRN Q6HRS PRN 11/02/20 00:00 11/02/20 07:27 650 MG Acetaminophen (Tylenol) 650 mg Q6HRS 10/31/20 12:00 11/08/20 05:45 650 MG Albuterol Sulfate (Ventolin Hfa) 1 puff PRN Q6HRS PRN 11/04/20 13:45 11/04/20 13:50 1 PUFF Albuterol Sulfate (Ventolin Neb Soln) 2.5 mg PRN Q6HRS PRN 11/03/20 06:00 Albuterol/ Ipratropium (Duoneb) 3 ml PRN Q4HRS PRN 11/02/20 07:00 11/02/20 07:03 DC Amino Acids/ Glycerin/ Electrolytes 1,000 ml @ 100 mls/hr Q10H 11/01/20 13:30 11/08/20 05:41 100 MLS/HR Amoxicillin/ Clavulanate Potassium (Augmentin 500/ 125mg) 1 tab BID 11/07/20 10:00 11/08/20 09:14 1 TAB Aspirin (Aspirin Chewable) 81 mg DAILYWBKFT 10/31/20 08:00 11/08/20 09:15 81 MG Atorvastatin Calcium (Lipitor) 10 mg HS 10/31/20 21:00 11/07/20 20:06 10 MG Atropine Sulfate (ATROPINE 0.5mg SYRINGE) 0.5 mg PRN Q5MIN PRN 11/03/20 12:00 Budesonide (Pulmicort) 0.5 mg RTBID 10/31/20 20:00 11/01/20 13:52 DC Bupropion HCl (Wellbutrin Xl) 150 mg DAILY 10/31/20 12:00 11/08/20 09:15 150 MG Calcium Carbonate/ Glycine (Oscal) 500 mg Q4HRS 10/31/20 12:00 11/08/20 09:18 500 MG Carvedilol (Coreg) 12.5 mg BIDWMEALS 10/31/20 17:00 11/03/20 11:10 DC 11/01/20 08:43 12.5 MG Cetirizine HCl (ZyrTEC) 10 mg DAILY 11/01/20 09:00 11/08/20 09:15 10 MG Clonazepam (KlonoPIN) 0.5 mg BID 10/31/20 12:00 11/08/20 09:15 0.5 MG Clonidine HCl (Catapres) 0.2 mg TID 10/31/20 12:00 11/08/20 09:15 0.2 MG Dexamethasone Sodium Phosphate (Decadron) 6 mg DAILY 11/05/20 09:00 11/08/20 09:16 6 MG Dexmedetomidine HCl 400 mcg/ Sodium Chloride 100 ml @ 0 mls/hr CONT PRN 11/03/20 12:00 11/04/20 05:42 22.1 MLS/HR Dextrose (Dextrose 50%-Water Syringe) 12.5 gm PRN Q15MIN PRN 10/31/20 18:00 UNV Dicyclomine HCl (Bentyl) 20 mg TID 10/31/20 14:00 11/08/20 09:15 20 MG Diphenoxylate HCl/ Atropine (Lomotil) 1 tab TID 10/31/20 14:00 11/08/20 09:14 1 TAB Doxycycline Hyclate (Vibra-Tab) 100 mg BID 11/05/20 09:00 11/05/20 09:43 DC Enoxaparin Sodium (Lovenox 120mg Syringe) 110 mg 1X ONCE 10/30/20 06:15 10/30/20 06:16 DC 10/30/20 06:27 110 MG Etomidate (Amidate) 20 mg STK-MED ONCE 10/30/20 10:43 10/30/20 10:43 DC Famotidine (Pepcid) 20 mg HS 10/31/20 21:00 11/07/20 20:06 20 MG Fentanyl Citrate (Fentanyl 2ml Vial) 50 mcg PRN Q2HR PRN 10/31/20 07:45 10/31/20 20:08 50 MCG Folic Acid (Folic Acid) 0.5 mg DAILY 10/31/20 12:00 11/08/20 09:13 0.5 MG Furosemide (Lasix) 40 mg DAILY 11/03/20 12:00 11/06/20 11:34 DC 11/05/20 10:27 40 MG Gabapentin (Neurontin) 100 mg TID 10/31/20 14:00 11/08/20 09:14 100 MG Glycerin/ Hypromellose/ Polyethylene (Artificial Tears) 2 drop Q4HRS 10/31/20 16:00 11/08/20 08:00 2 DROP Guaifenesin (Robitussin) 200 mg PRN Q4HRS PRN 10/31/20 12:45 10/31/20 20:04 200 MG Haloperidol Lactate (Haldol Inj) 5 mg PRN Q6HRS PRN 11/02/20 11:00 11/07/20 20:11 5 MG Heparin Sodium (Porcine) (Heparin Sodium) 5,000 unit Q8HRS 10/30/20 22:00 11/08/20 05:42 5,000 UNIT Ibuprofen (Motrin) 400 mg PRN Q6HRS PRN 10/31/20 11:15 Insulin Human Lispro (HumaLOG) 0-5 UNITS TIDWMEALS 10/31/20 12:00 11/07/20 17:27 3 UNITS Insulin Human Regular (HumuLIN R VIAL) 100 unit BIDWMEALS 10/31/20 17:00 UNV Labetalol HCl (Normodyne Iv Push) 20 mg PRN Q2HR PRN 11/02/20 11:30 11/03/20 00:56 20 MG Lactobacillus Rhamnosus (Culturelle) 1 cap BID 10/31/20 12:00 11/08/20 09:00 1 CAP Levothyroxine Sodium (Synthroid) 112 mcg DAILY06 11/01/20 09:00 11/08/20 05:44 112 MCG Loperamide HCl (Imodium) 2 mg PRN DAILY PRN 10/31/20 11:15 11/07/20 09:53 2 MG Lorazepam (Ativan Inj) 2 mg PRN Q4HRS PRN 11/02/20 08:30 11/05/20 05:20 2 MG Lorazepam (Ativan) 0.5 mg PRN Q8HRS PRN 10/31/20 11:15 Magnesium Oxide (Magnesium Oxide) 400 mg DAILY 10/31/20 12:00 11/08/20 09:14 400 MG Metformin HCl (Glucophage) 250 mg BIDWMEALS 10/31/20 17:00 11/08/20 08:58 DC 11/07/20 17:25 250 MG Metoprolol Tartrate (Lopressor Vial) 5 mg Q6HRS 11/05/20 08:15 11/08/20 05:44 5 MG Midazolam HCl 100 mg/Sodium Chloride 100 ml @ 0 mls/hr ONCE ONCE 10/30/20 06:45 10/30/20 06:46 DC 10/30/20 07:10 1 MLS/HR Multivitamins (Thera M Plus) 1 tab DAILY 10/31/20 12:30 11/08/20 09:14 1 TAB Non-Formulary Medication (Fluticasone/ Salmeterol (Advair 500-50 Diskus)) 1 puff BID 10/31/20 21:00 UNV Non-Formulary Medication (Peg 400/ Hypromellose/ Glycerin (Artificial Tears Drops)) 1 drop QID 10/31/20 13:00 UNV Non-Formulary Medication (Polyvinyl Alcohol (Tears Again)) 2 drop Q4HRS 10/31/20 12:00 UNV Non-Formulary Medication (Risperidone ) 0.5 mg DAILY 11/01/20 09:00 UNV Norepinephrine Bitartrate 8 mg/ Dextrose 258 ml @ 17.202 mls/ hr CONT PRN 11/03/20 13:45 11/04/20 05:54 8.3 MLS/HR Nystatin (Nystop) 1 luis PRN BID PRN 10/31/20 11:15 Ondansetron HCl (Zofran Odt) 4 mg PRN Q8HRS PRN 10/31/20 12:30 Ondansetron HCl (Zofran) 4 mg PRN Q8HRS PRN 10/30/20 06:00 10/31/20 05:59 DC Piperacillin Sod/ Tazobactam Sod (Zosyn Per Pharmacy) 1 each PRN DAILY PRN 10/30/20 06:00 11/06/20 11:03 DC Piperacillin Sod/ Tazobactam Sod 3.375 gm/Sodium Chloride 50 ml @ 100 mls/hr Q6HRS 11/05/20 12:00 11/06/20 09:15 DC 11/06/20 00:04 100 MLS/HR Piperacillin Sod/ Tazobactam Sod 4.5 gm/Sodium Chloride 100 ml @ 200 mls/hr Q6HRS 10/30/20 12:00 11/04/20 09:59 DC 11/04/20 05:10 200 MLS/HR Polyethylene Glycol (miraLAX PACKET) 17 gm DAILY 10/31/20 12:00 11/08/20 09:13 17 GM Potassium Bicarbonate (Potassium Effervescent Tablet) 80 meq 1X ONCE 10/31/20 09:45 10/31/20 09:46 DC 10/31/20 13:20 80 MEQ Potassium Chloride (Klor-Con) 10 meq DAILYWBKFT 11/02/20 08:00 11/07/20 09:08 10 MEQ Propofol 100 ml @ 3.408 mls/ hr CONT PRN 10/30/20 09:00 10/31/20 12:07 3.408 MLS/HR Risperidone (RisperDAL) 1 mg QHS 10/31/20 21:00 11/07/20 20:06 1 MG Ropinirole HCl (Requip) 2 mg DAILY 11/01/20 09:00 11/08/20 09:13 2 MG Simethicone (Gas-X) 160 mg PRN Q2HR PRN 10/31/20 12:00 11/06/20 17:23 160 MG Sodium Chloride 1,000 ml @ 125 mls/hr Q8H 11/06/20 16:30 11/07/20 10:52 DC 11/06/20 23:41 125 MLS/HR Succinylcholine Chloride (Anectine) 200 mg STK-MED ONCE 10/30/20 10:43 10/30/20 10:44 DC Tramadol HCl (Ultram) 50 mg PRN Q6HRS PRN 10/31/20 11:15 Vancomycin HCl (Vanco Per Pharmacy) 1 each PRN DAILY PRN 10/30/20 11:00 10/31/20 11:11 DC 10/31/20 09:51 1 EACH Vancomycin HCl (Vancomycin Trough Level) 1 each 1X ONCE 11/01/20 12:30 10/31/20 13:36 DC Vancomycin HCl 1.75 gm/Sodium Chloride 500 ml @ 250 mls/hr Q24H 10/31/20 13:00 10/31/20 11:11 DC Vitamin B Complex (Dustin B) 1 tab DAILY 10/31/20 12:00 11/08/20 09:14 1 TAB Labs: Lab Laboratory Tests Test 11/07/20 12:48 11/07/20 17:15 11/07/20 20:33 11/08/20 06:00 Glucose (Fingerstick) 193 mg/dL (70-99) 215 mg/dL (70-99) 233 mg/dL (70-99) White Blood Count 7.3 x10^3/uL (4.0-11.0) Red Blood Count 3.15 x10^6/uL (3.50-5.40) Hemoglobin 9.3 g/dL (12.0-15.5) Hematocrit 28.8 % (36.0-47.0) Mean Corpuscular Volume 91 fL (79-100) Mean Corpuscular Hemoglobin 30 pg (25-35) Mean Corpuscular Hemoglobin Concent 32 g/dL (31-37) Red Cell Distribution Width 16.4 % (11.5-14.5) Platelet Count 203 x10^3/uL (140-400) Neutrophils (%) (Auto) 82 % (31-73) Lymphocytes (%) (Auto) 6 % (24-48) Monocytes (%) (Auto) 11 % (0-9) Eosinophils (%) (Auto) 0 % (0-3) Basophils (%) (Auto) 1 % (0-3) Neutrophils # (Auto) 6.0 x10^3/uL (1.8-7.7) Lymphocytes # (Auto) 0.5 x10^3/uL (1.0-4.8) Monocytes # (Auto) 0.8 x10^3/uL (0.0-1.1) Eosinophils # (Auto) 0.0 x10^3/uL (0.0-0.7) Basophils # (Auto) 0.1 x10^3/uL (0.0-0.2) Sodium Level 133 mmol/L (136-145) Potassium Level 5.5 mmol/L (3.5-5.1) Chloride Level 96 mmol/L (98-107) Carbon Dioxide Level 26 mmol/L (21-32) Anion Gap 11 (6-14) Blood Urea Nitrogen 59 mg/dL (7-20) Creatinine 2.9 mg/dL (0.6-1.0) Estimated GFR (Cockcroft-Gault) 20.1 Glucose Level 156 mg/dL (70-99) Calcium Level 8.2 mg/dL (8.5-10.1) Objective: Assessment: COVID positive Blood culture positive 1/4 gram-positive cocci, most likely to be contaminant. Urinary tract infection, Kleb treated Acute respiratory failure. Could be from underlying Covid and or CHF Pulmonary infiltrate, Encephalopathy. Schizophrenia. Congestive heart failure. Hypertension. Obesity. Plan: Plan of Care DC Augmentin as patient has completed antibiotic regimen course cont supportive care Discussed with CARRIE HENSON MD Nov 08, 2020 10:44
[2020-11-08 11:25] VITALS: BP 172/78
--- NOTE | 2020-11-08 12:40 | PDOC ---
[employer] PROGRESS NOTE Date of Service DOS: DATE: 11/08/20 TIME: 12:40 Chief Complaint Chief Complaint COVID Positive Acute hypoxemic hypercapnic respiratory failure Acute on chronic heart failure Blood cultures positive Heart failure PMH KS AICD in UTI Hypocalcemia Hypertriglyceridemia Anemia Low platelets Hypoglycemia (43) Elevated Cr History of Present Illness History of Present Illness 10/31 Patient seen and examined in ICU Patient sedated with propofol Possible COVID - pending under investigation Discussed with RN Chart reviewed Blood culture positive Vent settings as follows AC/18/450/40 11/01 Patient is COVID positive Patient seen and examined in ICU Patient sedated with propofol Discussed with RN Discussed with Top And Seat Cover Fitter Chart reviewed Blood cultures are positive 11/02 Patient is COVID positive Patient seen and examined in ICU Propofol IV Discussed with RN Chart Reviewed Blood cultures positive 11/03/2020 Patient resting w/ NAD on Bipap Patient is COVID positive Patient seen and examined in ICU Propofol IV Discussed with RN Chart Reviewed Blood cultures positive 11/04/2020 Patient seen and evaluated. Tachypneic, afebrile. Still breathing on BiPAP. Continue IV Zosyn, positive blood cultures most likely contaminant. Continue diuresis. She is on Levophed and Precedex. Still with some agitation. CT chest pending to evaluate possible thoracentesis. Total time spent 35 minutes, >50% time spent reviewing charts, reviewing labs, discussing with RN and social services technician. 11/05/2020 Patient seen and evaluated. She is still intermittently requiring BiPAP. Afebrile, tachypneic, tachycardic. Sedated with Haldol. CT chest yesterday showing trace bilateral pleural effusion, no drainable fluid collection. Continue COVID-19 treatment with steroids and supportive care. 11/06/2020 Patient seen and evaluated, status post extubation 10/31. Afebrile, tachycardic. She is breathing intermittently on BiPAP, currently on 2 L nasal cannula. States she is hungry, swallow eval pending. Continue steroids and antibiotics, per ID. Continue diuresis. 11/07/2020 Patient seen evaluate bedside. Status post extubation on 1217. Rising creatinine of 3.3. Pending nephrology evaluation.> 50% time spent in patient chart, labs, and imaging review and in discussion with RN and SW 11/08/2020 Patient seen and examined bedside. No acute events overnight. Saturating 96% on 4 L nasal cannula during the day and tolerating 35% on BiPAP. Passed speech swallow study and is currently on a dysphagia diet. Augmentin discontinued today per ID.> 50% time spent in patient chart, labs, and imaging review and in discussion with RN and SW Vitals/I&O Vitals/I&O: Vital Signs Date Time Temp Pulse Resp B/P (MAP) Pulse Ox O2 Delivery O2 Flow Rate FiO2 11/08/20 09:15 80 11/08/20 08:20 Nasal Cannula 4.0 11/08/20 05:44 119/72 11/08/20 03:30 98.1 22 96 98.1 I & O 11/07/20 11/07/20 11/08/20 15:00 23:00 07:00 Intake Total 240 ml 1500 ml Output Total 300 ml 1500 ml 1000 ml Balance -60 ml 0 ml -1000 ml Physical Exam Physical Exam: GENERAL: Alert awake female HEENT: Both pupils are round and reacting. No conjunctival lesion. No lesion in the mouth. NECK: Supple, no JVP, no lymphadenopathy. LUNGS: Clear. HEART: S1, S2 regular. ABDOMEN: Soft bowel sounds present nontender nondistended Fecal tube present EXTREMITIES: No edema or cyanosis. SKIN: Unremarkable. NEUROLOGIC: Alert awake General: Alert, Cooperative, No acute distress Heart: Regular rate Lungs: Clear Abdomen: Normal bowel sounds Extremities: No clubbing Skin: No breakdown Labs Labs: Laboratory Tests Test 11/07/20 12:48 11/07/20 17:15 11/07/20 20:33 11/08/20 06:00 Glucose (Fingerstick) 193 mg/dL (70-99) 215 mg/dL (70-99) 233 mg/dL (70-99) White Blood Count 7.3 x10^3/uL (4.0-11.0) Red Blood Count 3.15 x10^6/uL (3.50-5.40) Hemoglobin 9.3 g/dL (12.0-15.5) Hematocrit 28.8 % (36.0-47.0) Mean Corpuscular Volume 91 fL (79-100) Mean Corpuscular Hemoglobin 30 pg (25-35) Mean Corpuscular Hemoglobin Concent 32 g/dL (31-37) Red Cell Distribution Width 16.4 % (11.5-14.5) Platelet Count 203 x10^3/uL (140-400) Neutrophils (%) (Auto) 82 % (31-73) Lymphocytes (%) (Auto) 6 % (24-48) Monocytes (%) (Auto) 11 % (0-9) Eosinophils (%) (Auto) 0 % (0-3) Basophils (%) (Auto) 1 % (0-3) Neutrophils # (Auto) 6.0 x10^3/uL (1.8-7.7) Lymphocytes # (Auto) 0.5 x10^3/uL (1.0-4.8) Monocytes # (Auto) 0.8 x10^3/uL (0.0-1.1) Eosinophils # (Auto) 0.0 x10^3/uL (0.0-0.7) Basophils # (Auto) 0.1 x10^3/uL (0.0-0.2) Sodium Level 133 mmol/L (136-145) Potassium Level 5.5 mmol/L (3.5-5.1) Chloride Level 96 mmol/L (98-107) Carbon Dioxide Level 26 mmol/L (21-32) Anion Gap 11 (6-14) Blood Urea Nitrogen 59 mg/dL (7-20) Creatinine 2.9 mg/dL (0.6-1.0) Estimated GFR (Cockcroft-Gault) 20.1 Glucose Level 156 mg/dL (70-99) Calcium Level 8.2 mg/dL (8.5-10.1) Test 11/08/20 09:42 Glucose (Fingerstick) 143 mg/dL (70-99) Assessment and Plan Assessmemt and Plan Problems Medical Problems: (1) AMS (altered mental status) Status: Acute (2) Hypercapnia Status: Acute (3) Person under investigation for COVID-19 Status: Acute (4) Respiratory failure Status: Acute (5) UTI (urinary tract infection) Status: Acute Comment Review of Relevant I have reviewed the following items lucas (where applicable) has been applied. Justifications for Admission Other Justification SARAVANAN VINCENT MD Nov 08, 2020 12:40
--- NOTE | 2020-11-08 14:34 | PDOC ---
Renal-Progress Notes Subjective Notes Notes NONE History of Present Illness Hx of present illness NO CHANGES Vitals Vitals Vital Signs Date Time Temp Pulse Resp B/P (MAP) Pulse Ox O2 Delivery O2 Flow Rate FiO2 11/08/20 12:53 98 11/08/20 08:20 Nasal Cannula 4.0 11/08/20 05:44 119/72 11/08/20 03:30 98.1 22 96 98.1 Weight Weight [ ] I.O. Intake and Output Intake and Output 11/08/20 07:00 Intake Total 1740 ml Output Total 2800 ml Balance -1060 ml Intake Oral 740 ml IV Total 1000 ml Output Urine Total 2800 ml # Bowel Movements 1 Labs Labs Laboratory Tests Test 11/07/20 17:15 11/07/20 20:33 11/08/20 06:00 11/08/20 09:42 Glucose (Fingerstick) 215 mg/dL (70-99) 233 mg/dL (70-99) 143 mg/dL (70-99) White Blood Count 7.3 x10^3/uL (4.0-11.0) Red Blood Count 3.15 x10^6/uL (3.50-5.40) Hemoglobin 9.3 g/dL (12.0-15.5) Hematocrit 28.8 % (36.0-47.0) Mean Corpuscular Volume 91 fL (79-100) Mean Corpuscular Hemoglobin 30 pg (25-35) Mean Corpuscular Hemoglobin Concent 32 g/dL (31-37) Red Cell Distribution Width 16.4 % (11.5-14.5) Platelet Count 203 x10^3/uL (140-400) Neutrophils (%) (Auto) 82 % (31-73) Lymphocytes (%) (Auto) 6 % (24-48) Monocytes (%) (Auto) 11 % (0-9) Eosinophils (%) (Auto) 0 % (0-3) Basophils (%) (Auto) 1 % (0-3) Neutrophils # (Auto) 6.0 x10^3/uL (1.8-7.7) Lymphocytes # (Auto) 0.5 x10^3/uL (1.0-4.8) Monocytes # (Auto) 0.8 x10^3/uL (0.0-1.1) Eosinophils # (Auto) 0.0 x10^3/uL (0.0-0.7) Basophils # (Auto) 0.1 x10^3/uL (0.0-0.2) Sodium Level 133 mmol/L (136-145) Potassium Level 5.5 mmol/L (3.5-5.1) Chloride Level 96 mmol/L (98-107) Carbon Dioxide Level 26 mmol/L (21-32) Anion Gap 11 (6-14) Blood Urea Nitrogen 59 mg/dL (7-20) Creatinine 2.9 mg/dL (0.6-1.0) Estimated GFR (Cockcroft-Gault) 20.1 Glucose Level 156 mg/dL (70-99) Calcium Level 8.2 mg/dL (8.5-10.1) Test 11/08/20 13:04 Glucose (Fingerstick) 181 mg/dL (70-99) Micro Micro Microbiology 10/30/20 Blood Culture - Final, Complete 10/30/20 Urine Culture - Final, Complete 10/30/20 Antimicrobic Susceptibility - Final, Complete Review of Systems Constitutional: yes: other (CONFUSED BUT LESS SO) Physical Exam General Appearance: no apparent distress Skin: warm Respiratory: decreased breath sounds Heart: S1S2 Abdomen: soft, bowel sounds present Genitourinary: bladder flat Extremities: pulses present Neurology: alert, oriented, follow commands Musculoskeletal: Osteoarthritis, Other Assessment Assessment IMP JACKIE-ATN-CR OF 3.7 ON ADMIT - IMPROVED TO 2.9 HYPERKALEMIA CKD STAGE 2 WITH NL BASELINE CR DEHYDRATION [id number] CM WITH EF OF 45% COVID 19 INFECTION RESP FAILURE SCHIZOPHRENIA UTI KLEBSIELLA-CLEARING PLAN STOPPED DIURESIS HYDRATION STOP KCL UO IS IMPROVING LABS IN AM WILL FOLLOW SUMA SCHMID MD Nov 08, 2020 14:34
--- NOTE | 2020-11-08 14:47 | PDOC ---
PROGRESS NOTES Date of Service: DATE: 11/08/20 TIME: 14:44 Subjective Subjective No acute events overnight. Passed swallow study. Currently on 4 L oxygen per nasal cannula and tolerating 35% on BiPAP Objective Objective Vital Signs Date Time Temp Pulse Resp B/P (MAP) Pulse Ox O2 Delivery O2 Flow Rate FiO2 11/08/20 12:53 98 11/08/20 08:20 Nasal Cannula 4.0 11/08/20 05:44 119/72 11/08/20 03:30 98.1 22 96 98.1 Intake and Output 11/08/20 07:00 Intake Total 1740 ml Output Total 2800 ml Balance -1060 ml Intake Oral 740 ml IV Total 1000 ml Output Urine Total 2800 ml # Bowel Movements 1 Physical Exam Abdomen: Normal bowel sounds Heart: Regular rate Extremities: No clubbing General: Alert, Cooperative, No acute distress HEENT: PERRLA Lungs: Clear to auscultation, Normal air movement MUSCULOSKELETAL: No deformity, No swelling Neuro: Other (CONFUSED, NO ASYMETRY) Psych/Mental Status: Other (FLAT CONFUSED AFFECT) Skin: No breakdown Assessment Assessment 1. Acute respiratory failure requiting intubation with a/c CHF and Covid PNA: s/p extubation, pulmonary team following 2. Acute on chronic systolic CHF: appears better compensated 3. NSTEMI: peak trop 1. Most probable type II, demand ischemia. Plan ischemic evaluation as an outpatient. 4. Cardiomyopathy: prior EF at 45%. Plan 2D echo once recovered from Covid. 5. PAFIB. Presently sinus rhythm. 6. Hypertension; controlled 7. Hyperlipidemia; statin. 8. Diabetes, II 9. Hypothyroidism; on replacement 10. Encephalopathy with underlying anxiety, depression, schizoaffective disorder. 11. JACKIE; nephrology following. Plan Plan of Care Problems Medical Problems: (1) AMS (altered mental status) Status: Acute (2) Hypercapnia Status: Acute (3) Person under investigation for COVID-19 Status: Acute (4) Respiratory failure Status: Acute (5) UTI (urinary tract infection) Status: Acute Comment Review of Relevant I have reviewed the following items lucas (where applicable) has been applied. Labs Laboratory Tests Test 11/07/20 17:15 11/07/20 20:33 11/08/20 06:00 11/08/20 09:42 Glucose (Fingerstick) 215 mg/dL (70-99) 233 mg/dL (70-99) 143 mg/dL (70-99) White Blood Count 7.3 x10^3/uL (4.0-11.0) Red Blood Count 3.15 x10^6/uL (3.50-5.40) Hemoglobin 9.3 g/dL (12.0-15.5) Hematocrit 28.8 % (36.0-47.0) Mean Corpuscular Volume 91 fL (79-100) Mean Corpuscular Hemoglobin 30 pg (25-35) Mean Corpuscular Hemoglobin Concent 32 g/dL (31-37) Red Cell Distribution Width 16.4 % (11.5-14.5) Platelet Count 203 x10^3/uL (140-400) Neutrophils (%) (Auto) 82 % (31-73) Lymphocytes (%) (Auto) 6 % (24-48) Monocytes (%) (Auto) 11 % (0-9) Eosinophils (%) (Auto) 0 % (0-3) Basophils (%) (Auto) 1 % (0-3) Neutrophils # (Auto) 6.0 x10^3/uL (1.8-7.7) Lymphocytes # (Auto) 0.5 x10^3/uL (1.0-4.8) Monocytes # (Auto) 0.8 x10^3/uL (0.0-1.1) Eosinophils # (Auto) 0.0 x10^3/uL (0.0-0.7) Basophils # (Auto) 0.1 x10^3/uL (0.0-0.2) Sodium Level 133 mmol/L (136-145) Potassium Level 5.5 mmol/L (3.5-5.1) Chloride Level 96 mmol/L (98-107) Carbon Dioxide Level 26 mmol/L (21-32) Anion Gap 11 (6-14) Blood Urea Nitrogen 59 mg/dL (7-20) Creatinine 2.9 mg/dL (0.6-1.0) Estimated GFR (Cockcroft-Gault) 20.1 Glucose Level 156 mg/dL (70-99) Calcium Level 8.2 mg/dL (8.5-10.1) Test 11/08/20 13:04 Glucose (Fingerstick) 181 mg/dL (70-99) Microbiology 10/30/20 Blood Culture - Final, Complete 10/30/20 Urine Culture - Final, Complete 10/30/20 Antimicrobic Susceptibility - Final, Complete Vitals/I & O Vital Sign - Last 24 Hours 11/07/20 11/07/20 11/07/20 11/07/20 15:00 15:04 17:26 19:00 Temp 98.0 97.5 98.0 97.5 Pulse 72 78 78 68 Resp 19 22 B/P (MAP) 153/80 (104) 149/90 149/90 140/80 (100) Pulse Ox 97 99 O2 Delivery Nasal Cannula Nasal Cannula O2 Flow Rate 2.0 4.0 11/07/20 11/07/20 11/07/20 11/08/20 20:00 20:05 23:00 00:46 Temp 97.5 97.5 Pulse 78 65 78 Resp 22 B/P (MAP) 149/90 148/82 (104) 149/90 Pulse Ox 98 O2 Delivery Nasal Cannula Nasal Cannula O2 Flow Rate 4.0 4.0 11/08/20 11/08/20 11/08/20 11/08/20 03:30 05:44 08:20 09:15 Temp 98.1 98.1 Pulse 73 73 80 Resp 22 B/P (MAP) 119/72 (88) 119/72 Pulse Ox 96 O2 Delivery Nasal Cannula Nasal Cannula O2 Flow Rate 4.0 4.0 11/08/20 12:53 Pulse 98 Intake and Output 11/07/20 11/07/20 11/08/20 15:00 23:00 07:00 Intake Total 240 ml 1500 ml Output Total 300 ml 1500 ml 1000 ml Balance -60 ml 0 ml -1000 ml RADHA SWAN MD Nov 08, 2020 14:47
[2020-11-08 15:00] VITALS: BP 166/79
[2020-11-08 19:00] VITALS: BP 147/83
[2020-11-08] MEDS: risperiDONE 1 MG TABLET. PO SCH (20:39)
[2020-11-08] MEDS: ATORVASTATIN CALCIUM 10 MG TABLET. PO SCH (20:41)
[2020-11-08] MEDS: FAMOTIDINE 20 MG TABLET. PO SCH (21:12)
--- NOTE | 2020-11-08 22:53 | NUR ---
Patient continues to roll to her left side after repositioning to right side. Pt turns self in bed and refuses to lay on right side or on her back for taking PO medications, crushed in pudding. Pt able to swallow when HOB upright although pt is curled onto her left side.
[2020-11-08 23:19] VITALS: BP 142/69
[2020-11-09] VITALS (11 sets, daily range): BP systolic 118–202; BP diastolic 7–115
[2020-11-09] MEDS: AMINO AC 3%/ELECTROLYTE/GLYCER 1,000 ML IV SCH ×2 (00:38→08:28)
[2020-11-09] MEDS: METOPROLOL IV PUSH 5 MG/5 ML VIAL. IVP SCH ×4 (00:39→17:18)
[2020-11-09] MEDS: POLYVINYL ALCOHOL 1.4% OPHTH SOLUTION 15ML BOTTLE. OU SCH ×6 (04:00→20:00)
[2020-11-09] MEDS: CALCIUM CARBONATE 500 MG TABLET PO SCH ×6 (05:18→20:00)
[2020-11-09 05:24] LABS: BASO # 0.1 x10^3/uL (0.0-0.2); BASO % 1 % (0-3); EOS % 0 % (0-3); HEMATOCRIT 29.4 % (36.0-47.0); HEMOGLOBIN 9.6 g/dL (12.0-15.5); LYMPH # 0.4 x10^3/uL (1.0-4.8); LYMPH % 5 % (24-48); MEAN CORPUSCULAR HEMOGLOBIN 30 pg (25-35); MEAN CORPUSCULAR HGB CONC 33 g/dL (31-37); MEAN CORPUSCULAR VOLUME 92 fL (79-100); MONO # 0.8 x10^3/uL (0.0-1.1); MONO % 10 % (0-9); NEUT % 84 % (31-73); PLATELET COUNT 227 x10^3/uL (140-400); RED BLOOD COUNT 3.21 x10^6/uL (3.50-5.40); RED CELL DISTRIBUTION WIDTH 16.4 % (11.5-14.5); WHITE BLOOD COUNT 8.3 x10^3/uL (4.0-11.0)
[2020-11-09] MEDS: ACETAMINOPHEN 325 MG TABLET. PO SCH ×4 (05:26→17:18)
[2020-11-09] MEDS: LEVOTHYROXINE 112 MCG TABLET PO SCH (05:26)
[2020-11-09] MEDS: HEPARIN for SUB-Q USE 5,000 UNIT/ML VIAL. SQ SCH ×3 (05:30→22:01)
[2020-11-09 05:37] LABS: CALCIUM 9.1 mg/dL (8.5-10.1); GFR 19.3
[2020-11-09 05:43] LABS: POTASSIUM 6.4 mmol/L (3.5-5.1)
[2020-11-09] MEDS: INSULIN LISPRO 300 UNITS/3 ML VIAL. SQ SCH ×3 (08:00→18:31)
[2020-11-09] MEDS: DIPHENOXYLATE/ATROPINE TABLET. PO SCH ×3 (08:24→21:00)
[2020-11-09] MEDS: buPROPion XL 150 MG TAB.ER.24H. PO SCH (08:24)
[2020-11-09] MEDS: DICYCLOMINE HCL 10 MG CAPSULE PO SCH ×3 (08:24→21:00)
[2020-11-09] MEDS: VITAMIN B COMPLEX TABLET. PO SCH (08:24)
[2020-11-09] MEDS: LACTOBACILLUS RHAMNOSUS GG 1 CAPSULE. PO SCH ×2 (08:24→21:00)
[2020-11-09] MEDS: cloNIDine HCL 0.2 MG TABLET PO SCH ×3 (08:25→21:00)
[2020-11-09] MEDS: clonazePAM 0.5 MG TABLET PO SCH ×2 (08:25→21:00)
[2020-11-09] MEDS: FOLIC ACID 1 MG TABLET. PO SCH (08:25)
[2020-11-09] MEDS: MAGNESIUM OXIDE 400 MG TABLET PO SCH (08:25)
[2020-11-09] MEDS: CETIRIZINE HCL 10 MG TABLET. PO SCH (08:25)
[2020-11-09] MEDS: GABAPENTIN 100 MG CAPSULE. PO SCH ×3 (08:25→21:00)
[2020-11-09] MEDS: ASPIRIN CHEWABLE 81 MG TABLET. PO SCH (08:25)
[2020-11-09] MEDS: MULTIVITAMIN with MINERAL TABLET. PO SCH (08:25)
[2020-11-09] MEDS: DEXAMETHASONE SOD PHOS 4 MG/ML VIAL IVP SCH (08:26)
[2020-11-09] MEDS: rOPINIRole 1 MG TABLET. PO SCH (08:26)
[2020-11-09] MEDS: POLYETHYLENE GLYCOL 3350 17 GM PACKET. PO SCH (09:00)
--- NOTE | 2020-11-09 09:23 | PDOC ---
PROGRESS NOTES Date of Service: DATE: 11/09/20 TIME: 09:23 Subjective Subjective Mildly confused today Objective Objective Vital Signs Date Time Temp Pulse Resp B/P (MAP) Pulse Ox O2 Delivery O2 Flow Rate FiO2 11/09/20 08:25 70 11/09/20 05:22 145/73 11/09/20 02:30 97.9 20 2 Nasal Cannula 98.0 97.9 Intake and Output 11/09/20 07:00 Intake Total 1880 ml Output Total 1600 ml Balance 280 ml Intake Oral 480 ml IV Total 1400 ml Output Urine Total 1600 ml Physical Exam Abdomen: Normal bowel sounds Heart: Regular rate Extremities: No clubbing General: Alert, Cooperative, No acute distress HEENT: PERRLA Lungs: Clear to auscultation, Normal air movement MUSCULOSKELETAL: No deformity, No swelling Neuro: Other (CONFUSED, NO ASYMETRY) Psych/Mental Status: Other (FLAT CONFUSED AFFECT) Skin: No breakdown Assessment Assessment 1. Acute respiratory failure requiting intubation with a/c CHF and Covid PNA: s/p extubation, pulmonary team following 2. Acute on chronic systolic CHF: appears better compensated 3. NSTEMI: Most probable type II, demand ischemia. Plan ischemic evaluation as an outpatient. 4. Cardiomyopathy: prior EF at 45%. Plan 2D echo once recovered from Covid. 5. PAFIB. Presently V paced 6. Hypertension; controlled 7. Hyperlipidemia; statin. 8. Diabetes, II 9. Hypothyroidism; on replacement 10. Encephalopathy with underlying anxiety, depression, schizoaffective disorder. 11. JACKIE, hyperkalemia, nephrology following. Plan Plan of Care Problems Medical Problems: (1) AMS (altered mental status) Status: Acute (2) Hypercapnia Status: Acute (3) Person under investigation for COVID-19 Status: Acute (4) Respiratory failure Status: Acute (5) UTI (urinary tract infection) Status: Acute Comment Review of Relevant I have reviewed the following items lucas (where applicable) has been applied. Labs Laboratory Tests Test 11/08/20 09:42 11/08/20 13:04 11/08/20 17:17 11/08/20 23:28 Glucose (Fingerstick) 143 mg/dL (70-99) 181 mg/dL (70-99) 236 mg/dL (70-99) 199 mg/dL (70-99) Test 12/26/20 05:00 White Blood Count 8.3 x10^3/uL (4.0-11.0) Red Blood Count 3.21 x10^6/uL (3.50-5.40) Hemoglobin 9.6 g/dL (12.0-15.5) Hematocrit 29.4 % (36.0-47.0) Mean Corpuscular Volume 92 fL (79-100) Mean Corpuscular Hemoglobin 30 pg (25-35) Mean Corpuscular Hemoglobin Concent 33 g/dL (31-37) Red Cell Distribution Width 16.4 % (11.5-14.5) Platelet Count 227 x10^3/uL (140-400) Neutrophils (%) (Auto) 84 % (31-73) Lymphocytes (%) (Auto) 5 % (24-48) Monocytes (%) (Auto) 10 % (0-9) Eosinophils (%) (Auto) 0 % (0-3) Basophils (%) (Auto) 1 % (0-3) Neutrophils # (Auto) 7.0 x10^3/uL (1.8-7.7) Lymphocytes # (Auto) 0.4 x10^3/uL (1.0-4.8) Monocytes # (Auto) 0.8 x10^3/uL (0.0-1.1) Eosinophils # (Auto) 0.0 x10^3/uL (0.0-0.7) Basophils # (Auto) 0.1 x10^3/uL (0.0-0.2) Sodium Level 132 mmol/L (136-145) Potassium Level 6.4 mmol/L (3.5-5.1) Chloride Level 102 mmol/L (98-107) Carbon Dioxide Level 26 mmol/L (21-32) Anion Gap 4 (6-14) Blood Urea Nitrogen 64 mg/dL (7-20) Creatinine 3.0 mg/dL (0.6-1.0) Estimated GFR (Cockcroft-Gault) 19.3 Glucose Level 145 mg/dL (70-99) Calcium Level 9.1 mg/dL (8.5-10.1) Microbiology 10/30/20 Blood Culture - Final, Complete 10/30/20 Urine Culture - Final, Complete 10/30/20 Antimicrobic Susceptibility - Final, Complete Vitals/I & O Vital Sign - Last 24 Hours 11/08/20 11/08/20 11/08/20 11/08/20 11:25 12:53 15:00 15:11 Temp 98.4 98.7 98.4 98.7 Pulse 84 98 84 90 Resp 22 22 B/P (MAP) 172/78 (109) 166/79 (108) Pulse Ox 96 96 O2 Delivery Nasal Cannula Nasal Cannula O2 Flow Rate 4.0 4.0 11/08/20 11/08/20 11/08/20 11/08/20 18:30 19:00 20:00 21:12 Temp 98.4 98.4 Pulse 65 65 65 Resp 20 B/P (MAP) 147/83 (104) 166/79 Pulse Ox 98 O2 Delivery Nasal Cannula Nasal Cannula O2 Flow Rate 4.0 4.0 11/08/20 11/09/20 11/09/20 11/09/20 23:19 00:39 02:30 05:22 Temp 97.5 97.9 97.5 97.9 Pulse 62 62 67 67 Resp 20 B/P (MAP) 142/69 (93) 142/69 145/73 (97) 145/73 Pulse Ox 100 2 O2 Delivery Nasal Cannula Nasal Cannula O2 Flow Rate 4.0 98.0 11/09/20 08:25 Pulse 70 Intake and Output 11/08/20 11/08/20 11/09/20 15:00 23:00 07:00 Intake Total 100 ml 200 ml 1580 ml Output Total 650 ml 950 ml Balance 100 ml -450 ml 630 ml RADHA SWAN MD Nov 09, 2020 09:23
[2020-11-09] MEDS ORDERED: POLYETHYLENE GLYCOL 3350 17 GM PACKET. PO PRN (10:30)
--- NOTE | 2020-11-09 10:39 | PDOC ---
PULMONARY PROGRESS NOTES DATE: 11/09/20 TIME: 10:37 Subjective Now extubated on 10/31 on 2 liters N/C more confused and agitated today No overnight concerns from nursing Vitals Vital Signs Date Time Temp Pulse Resp B/P (MAP) Pulse Ox O2 Delivery O2 Flow Rate FiO2 11/09/20 08:25 70 11/09/20 08:15 Nasal Cannula 2.0 11/09/20 07:30 97.9 20 187/115 (139) 2 97.9 ROS: No Nausea, No Chest Pain, No Abdominal Pain, No Increase Cough General: Alert, No acute distress, Confused Lungs: Clear Cardiovascular: S1, S2 Abdomen: Soft, Non-tender Extremities: Other Skin: Warm, Dry Labs Laboratory Tests Test 11/07/20 12:48 11/07/20 17:15 11/07/20 20:33 11/08/20 06:00 Glucose (Fingerstick) 193 mg/dL (70-99) 215 mg/dL (70-99) 233 mg/dL (70-99) White Blood Count 7.3 x10^3/uL (4.0-11.0) Red Blood Count 3.15 x10^6/uL (3.50-5.40) Hemoglobin 9.3 g/dL (12.0-15.5) Hematocrit 28.8 % (36.0-47.0) Mean Corpuscular Volume 91 fL (79-100) Mean Corpuscular Hemoglobin 30 pg (25-35) Mean Corpuscular Hemoglobin Concent 32 g/dL (31-37) Red Cell Distribution Width 16.4 % (11.5-14.5) Platelet Count 203 x10^3/uL (140-400) Neutrophils (%) (Auto) 82 % (31-73) Lymphocytes (%) (Auto) 6 % (24-48) Monocytes (%) (Auto) 11 % (0-9) Eosinophils (%) (Auto) 0 % (0-3) Basophils (%) (Auto) 1 % (0-3) Neutrophils # (Auto) 6.0 x10^3/uL (1.8-7.7) Lymphocytes # (Auto) 0.5 x10^3/uL (1.0-4.8) Monocytes # (Auto) 0.8 x10^3/uL (0.0-1.1) Eosinophils # (Auto) 0.0 x10^3/uL (0.0-0.7) Basophils # (Auto) 0.1 x10^3/uL (0.0-0.2) Sodium Level 133 mmol/L (136-145) Potassium Level 5.5 mmol/L (3.5-5.1) Chloride Level 96 mmol/L (98-107) Carbon Dioxide Level 26 mmol/L (21-32) Anion Gap 11 (6-14) Blood Urea Nitrogen 59 mg/dL (7-20) Creatinine 2.9 mg/dL (0.6-1.0) Estimated GFR (Cockcroft-Gault) 20.1 Glucose Level 156 mg/dL (70-99) Calcium Level 8.2 mg/dL (8.5-10.1) Test 11/08/20 09:42 11/08/20 13:04 11/08/20 17:17 11/08/20 23:28 Glucose (Fingerstick) 143 mg/dL (70-99) 181 mg/dL (70-99) 236 mg/dL (70-99) 199 mg/dL (70-99) Test 11/09/20 05:00 White Blood Count 8.3 x10^3/uL (4.0-11.0) Red Blood Count 3.21 x10^6/uL (3.50-5.40) Hemoglobin 9.6 g/dL (12.0-15.5) Hematocrit 29.4 % (36.0-47.0) Mean Corpuscular Volume 92 fL (79-100) Mean Corpuscular Hemoglobin 30 pg (25-35) Mean Corpuscular Hemoglobin Concent 33 g/dL (31-37) Red Cell Distribution Width 16.4 % (11.5-14.5) Platelet Count 227 x10^3/uL (140-400) Neutrophils (%) (Auto) 84 % (31-73) Lymphocytes (%) (Auto) 5 % (24-48) Monocytes (%) (Auto) 10 % (0-9) Eosinophils (%) (Auto) 0 % (0-3) Basophils (%) (Auto) 1 % (0-3) Neutrophils # (Auto) 7.0 x10^3/uL (1.8-7.7) Lymphocytes # (Auto) 0.4 x10^3/uL (1.0-4.8) Monocytes # (Auto) 0.8 x10^3/uL (0.0-1.1) Eosinophils # (Auto) 0.0 x10^3/uL (0.0-0.7) Basophils # (Auto) 0.1 x10^3/uL (0.0-0.2) Sodium Level 132 mmol/L (136-145) Potassium Level 6.4 mmol/L (3.5-5.1) Chloride Level 102 mmol/L (98-107) Carbon Dioxide Level 26 mmol/L (21-32) Anion Gap 4 (6-14) Blood Urea Nitrogen 64 mg/dL (7-20) Creatinine 3.0 mg/dL (0.6-1.0) Estimated GFR (Cockcroft-Gault) 19.3 Glucose Level 145 mg/dL (70-99) Calcium Level 9.1 mg/dL (8.5-10.1) Laboratory Tests Test 11/08/20 13:04 11/08/20 17:17 11/08/20 23:28 11/09/20 05:00 Glucose (Fingerstick) 181 mg/dL (70-99) 236 mg/dL (70-99) 199 mg/dL (70-99) White Blood Count 8.3 x10^3/uL (4.0-11.0) Red Blood Count 3.21 x10^6/uL (3.50-5.40) Hemoglobin 9.6 g/dL (12.0-15.5) Hematocrit 29.4 % (36.0-47.0) Mean Corpuscular Volume 92 fL (79-100) Mean Corpuscular Hemoglobin 30 pg (25-35) Mean Corpuscular Hemoglobin Concent 33 g/dL (31-37) Red Cell Distribution Width 16.4 % (11.5-14.5) Platelet Count 227 x10^3/uL (140-400) Neutrophils (%) (Auto) 84 % (31-73) Lymphocytes (%) (Auto) 5 % (24-48) Monocytes (%) (Auto) 10 % (0-9) Eosinophils (%) (Auto) 0 % (0-3) Basophils (%) (Auto) 1 % (0-3) Neutrophils # (Auto) 7.0 x10^3/uL (1.8-7.7) Lymphocytes # (Auto) 0.4 x10^3/uL (1.0-4.8) Monocytes # (Auto) 0.8 x10^3/uL (0.0-1.1) Eosinophils # (Auto) 0.0 x10^3/uL (0.0-0.7) Basophils # (Auto) 0.1 x10^3/uL (0.0-0.2) Sodium Level 132 mmol/L (136-145) Potassium Level 6.4 mmol/L (3.5-5.1) Chloride Level 102 mmol/L (98-107) Carbon Dioxide Level 26 mmol/L (21-32) Anion Gap 4 (6-14) Blood Urea Nitrogen 64 mg/dL (7-20) Creatinine 3.0 mg/dL (0.6-1.0) Estimated GFR (Cockcroft-Gault) 19.3 Glucose Level 145 mg/dL (70-99) Calcium Level 9.1 mg/dL (8.5-10.1) Medications Active Scripts Medications Dose Route/Sig Max Daily Dose Days Date Category Dose Instructions Lomotil Tablet (Diphenoxylate Hcl/Atropine) 1 Each Tablet 1 Tab PO TID 3 10/28/20 Rx Dicyclomine Hcl 20 Mg Tablet 1 Tab PO TID 10 10/28/20 Rx Zithromax (Azithromycin) 250 Mg Tablet 250 Mg PO DIRECTED 10/28/20 Rx Take 2 PO x 1 days Then take 1 PO q 24 hour for the next 4 days Doxycycline Hyclate 100 Mg Tablet 1 Tab PO BID 3 12/04/19 Rx Culturelle (Lactobacillus Rhamnosus Gg) 1 Each Cap.sprink 1 Cap PO BID 14 12/04/19 Rx Zofran (Ondansetron Hcl) 4 Mg Tablet 4 Mg PO Q8HRS PRN 12/02/19 Reported Tramadol Hcl 50 Mg Tablet 50 Mg PO Q6HRS PRN 12/02/19 Reported Tears Again (Polyvinyl Alcohol) 15 Ml Drops 2 Drop EACHEYE Q4HRS 30 12/02/19 Reported Polyvinyl Alcohol 15 Ml Drops 2 Drop EACHEYE Q4HRS 30 12/02/19 Reported Ropinirole Hcl 1 Mg Tablet 1 Mg PO BID 12/02/19 Reported Pantoprazole Sodium (Pantoprazole Sodium) 40 Mg Tablet.dr 40 Mg PO DAILYAC 12/02/19 Reported B-Complex Plus Vitamin C (B Complex With Vitamin C) 1 Each Tablet 1 Each PO DAILY 12/02/19 Reported Magnesium Oxide 400 Mg Tablet 400 Mg PO DAILY 12/02/19 Reported Loratadine 10 Mg Tablet 10 Mg PO DAILY 12/02/19 Reported Ketotifen Fumarate 5 Ml Drops 1 Drop EACHEYE BID 12/02/19 Reported Humalog (Insulin Lispro) 100 Unit/1 Ml Vial 100 Unit SQ BIDWMEALS 12/02/19 Reported 70 - 150 0 units 151 - 200 0 units 201 - 250 2 units 251 - 300 3 units 301 - 349 4 units if FSBS is under 70 or 350 and over call MD [guaifenesin Syrup] 10 Ml PO Q4HRS PRN 12/02/19 Reported Mucinex (Guaifenesin) 600 Mg Tablet.er 600 Mg PO BID 12/02/19 Reported Coreg (Carvedilol) 25 Mg Tablet 50 Mg PO BIDWMEALS 12/02/19 Reported Peridex (Chlorhexidine Gluconate) 15 Ml Mouthwash 15 Ml PO BID 30 12/02/19 Reported Swish in mouth for 30 seconds then spit out Calcium Carbonate 500 Mg Tablet 500 Mg PO Q4HRS 12/02/19 Reported Atorvastatin Calcium 10 Mg Tablet 10 Mg PO HS 12/02/19 Reported Acetaminophen 325 Mg Tablet 650 Mg PO Q6HRS 12/02/19 Reported Metformin Hcl 500 Mg Tablet 250 Mg PO BIDWMEALS 12/03/18 Reported Imodium A-D (Loperamide HCl) 2 Mg Capsule 2 Mg PO DAILY PRN 12/03/18 Reported Risperidone 0.5 Mg Tablet 0.5 Mg PO DAILY 03/21/18 Reported Risperidone 1 Mg Tablet 1 Tab PO QHS 03/21/18 Reported Levothyroxine Sodium 112 Mcg Tablet 1 Tab PO DAILY 03/21/18 Reported Advair 500-50 Diskus (Fluticasone/Salmeterol) 1 Each Disk.w.dev 1 Puff IH BID 03/21/18 Reported Nystatin 15 Gm Powder 1 Scott TP PRN BID PRN 03/21/18 Reported Clonazepam (Clonazepam) 0.5 Mg Tablet 1 Tab PO BID 09/30/16 Reported Montelukast Sodium Tablet (Montelukast Sodium) 10 Mg Tablet 1 Tab PO HS 02/18/16 Reported Gas-X (Simethicone) 80 Mg Tab.chew 160 Mg PO Q2HR PRN 02/18/16 Reported Gabapentin (Gabapentin) 100 Mg Capsule 100 Mg PO TID 02/18/[address] chest 1. Cardiomegaly. 2. Increased consolidative opacities in the left lung and scattered groundglass opacities in the right lung are suspicious for pneumonia. Some of the opacities in the left upper lobe are chronic scarring or atelectasis present on prior exam. 3. New trace bilateral pleural effusions. No large or drainable pleural effusion. Electronically signed by: Renetta Edouard MD (11/04/2020 4:07 PM) [id number] Impression . IMPRESSION: 1. Acute on chronic hypoxemic hypercapnic respiratory failure, now extubated off BIPAP, improving 2. Abnormal x-ray compatible with acute on chronic congestive heart failure,/ COVID-19. 3. Abnormal ct chest c/w COVID-19 PNEUMONIA/ ? BACTERIAL PNA 4. COVID-19 5. Acute metabolic toxic encephalopathy. 6. History of status post pacemaker defibrillator implantation. 7. Restless legs syndrome. 8. Schizoaffective disorder. 9. Acute on chronic systolic heart failure. 9. Non-ST segment elevation myocardial infarction. 10. Cardiomyopathy, ejection fraction on 11/2019 revealed EF of 45%. 11. Atrial fibrillation with V paced, currently underlying sinus rhythm. 12. Hyperlipidemia. 13. Hypothyroidism. 14. Fever, rule out bacteremia. 15. Sepsis. 16. JACKIE Plan . PLAN: Continue supplemental oxygen now on 2 liters N/C Extubated on 121/17, avoid sedative medications PRN haldol for agitation Continue ABX per infectious disease now off ABX Follow cardiology recs Follow nephrology recs, worsenig renal function and hyperkalemia today PT/OT/ST PPN for nutritional support, Failed swallow study DVT/GI PPX D/W MERRY MARTIN MD Nov 09, 2020 10:39
--- NOTE | 2020-11-09 10:45 | NUR ---
Nursing: Patient confused. Oriented to self. Restless. Patient frequently moving in bed. Incontinent of stool x4. Patient took morning PO medications crushed in applesauce. Patient took only a few bites of breakfast. Auditory Hallucinations.
--- NOTE | 2020-11-09 11:06 | PDOC ---
[employer] PROGRESS NOTE Date of Service DOS: DATE: 11/09/20 TIME: 11:05 Chief Complaint Chief Complaint COVID Positive Acute hypoxemic hypercapnic respiratory failure Acute on chronic heart failure Blood cultures positive Heart failure PMH MT AICD in UTI Hypocalcemia Hypertriglyceridemia Anemia Low platelets Hypoglycemia (43) Elevated Cr History of Present Illness History of Present Illness 10/31 Patient seen and examined in ICU Patient sedated with propofol Possible COVID - pending under investigation Discussed with RN Chart reviewed Blood culture positive Vent settings as follows AC/18/450/40 11/01 Patient is COVID positive Patient seen and examined in ICU Patient sedated with propofol Discussed with RN Discussed with Applied Behavior Specialist Chart reviewed Blood cultures are positive 11/02 Patient is COVID positive Patient seen and examined in ICU Propofol IV Discussed with RN Chart Reviewed Blood cultures positive 11/03/2020 Patient resting w/ NAD on Bipap Patient is COVID positive Patient seen and examined in ICU Propofol IV Discussed with RN Chart Reviewed Blood cultures positive 11/04/2020 Patient seen and evaluated. Tachypneic, afebrile. Still breathing on BiPAP. Continue IV Zosyn, positive blood cultures most likely contaminant. Continue diuresis. She is on Levophed and Precedex. Still with some agitation. CT chest pending to evaluate possible thoracentesis. Total time spent 35 minutes, >50% time spent reviewing charts, reviewing labs, discussing with RN and director of social media marketing. 11/05/2020 Patient seen and evaluated. She is still intermittently requiring BiPAP. Afebrile, tachypneic, tachycardic. Sedated with Haldol. CT chest yesterday showing trace bilateral pleural effusion, no drainable fluid collection. Continue COVID-19 treatment with steroids and supportive care. 11/06/2020 Patient seen and evaluated, status post extubation 10/31. Afebrile, tachycardic. She is breathing intermittently on BiPAP, currently on 2 L nasal cannula. States she is hungry, swallow eval pending. Continue steroids and antibiotics, per ID. Continue diuresis. 11/07/2020 Patient seen evaluate bedside. Status post extubation on 1217. Rising creatinine of 3.3. Pending nephrology evaluation.> 50% time spent in patient chart, labs, and imaging review and in discussion with RN and SW 11/08/2020 Patient seen and examined bedside. No acute events overnight. Saturating 96% on 4 L nasal cannula during the day and tolerating 35% on BiPAP. Passed speech swallow study and is currently on a dysphagia diet. Augmentin discontinued today per ID.> 50% time spent in patient chart, labs, and imaging review and in discussion with RN and MADDIE 11/09/2020 No acute events overnight. Patient is afebrile. Patient seen and examined bedside. Is somewhat more confused and agitated today mainly due to incontinence to stool. Rectal tube has been removed Hutchins is intact. Will encourage thickened liquids of 240 cc every 6 hours mainly due to JACKIE and worsening potassium. Will defer the rest of the management to nephrology for improving renal function.> 50% time spent in patient chart, labs, and imaging review and in discussion with RN and MADDIE Vitals/I&O Vitals/I&O: Vital Signs Date Time Temp Pulse Resp B/P (MAP) Pulse Ox O2 Delivery O2 Flow Rate FiO2 11/09/20 08:25 70 11/09/20 08:15 Nasal Cannula 2.0 11/09/20 07:30 97.9 20 187/115 (139) 2 97.9 I & O 11/08/20 11/08/20 11/09/20 15:00 23:00 07:00 Intake Total 100 ml 200 ml 1580 ml Output Total 650 ml 950 ml Balance 100 ml -450 ml 630 ml Physical Exam Physical Exam: GENERAL: Alert awake female HEENT: Both pupils are round and reacting. No conjunctival lesion. No lesion in the mouth. NECK: Supple, no JVP, no lymphadenopathy. LUNGS: Clear. HEART: S1, S2 regular. ABDOMEN: Soft bowel sounds present nontender nondistended Fecal tube present EXTREMITIES: No edema or cyanosis. SKIN: Unremarkable. NEUROLOGIC: Alert awake General: Alert, Cooperative, No acute distress Heart: Regular rate Lungs: Clear Abdomen: Normal bowel sounds Extremities: No clubbing Skin: No breakdown Labs Labs: Laboratory Tests Test 11/08/20 13:04 11/08/20 17:17 11/08/20 23:28 11/09/20 05:00 Glucose (Fingerstick) 181 mg/dL (70-99) 236 mg/dL (70-99) 199 mg/dL (70-99) White Blood Count 8.3 x10^3/uL (4.0-11.0) Red Blood Count 3.21 x10^6/uL (3.50-5.40) Hemoglobin 9.6 g/dL (12.0-15.5) Hematocrit 29.4 % (36.0-47.0) Mean Corpuscular Volume 92 fL (79-100) Mean Corpuscular Hemoglobin 30 pg (25-35) Mean Corpuscular Hemoglobin Concent 33 g/dL (31-37) Red Cell Distribution Width 16.4 % (11.5-14.5) Platelet Count 227 x10^3/uL (140-400) Neutrophils (%) (Auto) 84 % (31-73) Lymphocytes (%) (Auto) 5 % (24-48) Monocytes (%) (Auto) 10 % (0-9) Eosinophils (%) (Auto) 0 % (0-3) Basophils (%) (Auto) 1 % (0-3) Neutrophils # (Auto) 7.0 x10^3/uL (1.8-7.7) Lymphocytes # (Auto) 0.4 x10^3/uL (1.0-4.8) Monocytes # (Auto) 0.8 x10^3/uL (0.0-1.1) Eosinophils # (Auto) 0.0 x10^3/uL (0.0-0.7) Basophils # (Auto) 0.1 x10^3/uL (0.0-0.2) Sodium Level 132 mmol/L (136-145) Potassium Level 6.4 mmol/L (3.5-5.1) Chloride Level 102 mmol/L (98-107) Carbon Dioxide Level 26 mmol/L (21-32) Anion Gap 4 (6-14) Blood Urea Nitrogen 64 mg/dL (7-20) Creatinine 3.0 mg/dL (0.6-1.0) Estimated GFR (Cockcroft-Gault) 19.3 Glucose Level 145 mg/dL (70-99) Calcium Level 9.1 mg/dL (8.5-10.1) Assessment and Plan Assessmemt and Plan Problems Medical Problems: (1) AMS (altered mental status) Status: Acute (2) Hypercapnia Status: Acute (3) Person under investigation for COVID-19 Status: Acute (4) Respiratory failure Status: Acute (5) UTI (urinary tract infection) Status: Acute Comment Review of Relevant I have reviewed the following items lucas (where applicable) has been applied. Justifications for Admission Other Justification SARAVANAN VINCENT MD Nov 09, 2020 11:06
--- NOTE | 2020-11-09 14:38 | PDOC ---
Renal-Progress Notes Subjective Notes Notes NO NEW COMPLAINTS History of Present Illness Hx of present illness SOME CONFUSION Vitals Vitals Vital Signs Date Time Temp Pulse Resp B/P (MAP) Pulse Ox O2 Delivery O2 Flow Rate FiO2 11/09/20 13:28 80 11/09/20 12:37 164/98 (120) 11/09/20 11:05 98.1 24 2 Nasal Cannula 97.0 98.1 Weight Weight [ ] I.O. Intake and Output Intake and Output 11/09/20 07:00 Intake Total 1880 ml Output Total 1600 ml Balance 280 ml Intake Oral 480 ml IV Total 1400 ml Output Urine Total 1600 ml Labs Labs Laboratory Tests Test 11/08/20 17:17 11/08/20 23:28 11/09/20 05:00 11/09/20 08:53 Glucose (Fingerstick) 236 mg/dL (70-99) 199 mg/dL (70-99) 109 mg/dL (70-99) White Blood Count 8.3 x10^3/uL (4.0-11.0) Red Blood Count 3.21 x10^6/uL (3.50-5.40) Hemoglobin 9.6 g/dL (12.0-15.5) Hematocrit 29.4 % (36.0-47.0) Mean Corpuscular Volume 92 fL (79-100) Mean Corpuscular Hemoglobin 30 pg (25-35) Mean Corpuscular Hemoglobin Concent 33 g/dL (31-37) Red Cell Distribution Width 16.4 % (11.5-14.5) Platelet Count 227 x10^3/uL (140-400) Neutrophils (%) (Auto) 84 % (31-73) Lymphocytes (%) (Auto) 5 % (24-48) Monocytes (%) (Auto) 10 % (0-9) Eosinophils (%) (Auto) 0 % (0-3) Basophils (%) (Auto) 1 % (0-3) Neutrophils # (Auto) 7.0 x10^3/uL (1.8-7.7) Lymphocytes # (Auto) 0.4 x10^3/uL (1.0-4.8) Monocytes # (Auto) 0.8 x10^3/uL (0.0-1.1) Eosinophils # (Auto) 0.0 x10^3/uL (0.0-0.7) Basophils # (Auto) 0.1 x10^3/uL (0.0-0.2) Sodium Level 132 mmol/L (136-145) Potassium Level 6.4 mmol/L (3.5-5.1) Chloride Level 102 mmol/L (98-107) Carbon Dioxide Level 26 mmol/L (21-32) Anion Gap 4 (6-14) Blood Urea Nitrogen 64 mg/dL (7-20) Creatinine 3.0 mg/dL (0.6-1.0) Estimated GFR (Cockcroft-Gault) 19.3 Glucose Level 145 mg/dL (70-99) Calcium Level 9.1 mg/dL (8.5-10.1) Test 11/09/20 11:04 Glucose (Fingerstick) 139 mg/dL (70-99) Micro Micro Microbiology 10/30/20 Blood Culture - Final, Complete 10/30/20 Urine Culture - Final, Complete 10/30/20 Antimicrobic Susceptibility - Final, Complete Review of Systems Constitutional: yes: other (CONFUSED BUT LESS SO) Physical Exam General Appearance: no apparent distress Skin: warm Respiratory: decreased breath sounds Heart: S1S2 Abdomen: soft, bowel sounds present Genitourinary: bladder flat Extremities: pulses present Neurology: alert, oriented, follow commands Musculoskeletal: Osteoarthritis, Other Assessment Assessment IMP JACKIE-ATN-CR OF 3.7 ON ADMIT - IMPROVED TO 3.0-NO CKD HX HYPERKALEMIA-RECURRENT CKD STAGE 2 WITH NL BASELINE CR DEHYDRATION [id number] CM WITH EF OF 45% COVID 19 INFECTION RESP FAILURE SCHIZOPHRENIA UTI KLEBSIELLA-CLEARING PLAN STOP PPN HYDRATION WITH HCO3 STOPEPED KCL UO IS IMPROVING RENAL SONOGRAM LABS IN AM WILL FOLLOW SUMA SCHMID MD Nov 09, 2020 14:38
[2020-11-09] MEDS ORDERED: DEXTROSE 50% 25 GM / 50ML DISP.SYRIN. IV ONE (15:00)
[2020-11-09] MEDS ORDERED: INSULIN LISPRO 300 UNITS/3 ML VIAL. IV ONE (15:00)
[2020-11-09] MEDS ORDERED: INSULIN REGULAR 100 UNIT/ML 3ML VIAL. IV ONE (15:00)
[2020-11-09] MEDS: SODIUM BICARBONATE VIAL 50 MEQ in IV 1/2 NORMAL SALINE 1,000 ML IV SCH (19:52)
[2020-11-09] MEDS: FAMOTIDINE 20 MG TABLET. PO SCH (21:00)
[2020-11-09] MEDS: risperiDONE 1 MG TABLET. PO SCH (21:00)
[2020-11-09] MEDS: ATORVASTATIN CALCIUM 10 MG TABLET. PO SCH (21:00)
[2020-11-09] MEDS ORDERED: ZIPRASIDONE IM 20 MG VIAL. IM PRN (22:45)
[2020-11-10] VITALS (10 sets, daily range): BP systolic 131–185; BP diastolic 72–96
--- NOTE | 2020-11-10 00:13 | NUR ---
Patient's Altered Mental Status required RN to hold PO meds and pt desatting, rapid response called, pt placed on BiPap at 100% FIO2, will try to titrate O2 down to return to FiO2 35% original BiPap settings. Pt given 2mg IVP ativan per JAN and tachypnea and oxygen saturation improved.
[2020-11-10] MEDS: METOPROLOL IV PUSH 5 MG/5 ML VIAL. IVP SCH ×4 (00:27→18:11)
[2020-11-10] MEDS: CALCIUM CARBONATE 500 MG TABLET PO SCH ×6 (04:00→21:23)
[2020-11-10] MEDS: POLYVINYL ALCOHOL 1.4% OPHTH SOLUTION 15ML BOTTLE. OU SCH ×6 (04:00→20:00)
[2020-11-10] MEDS: ACETAMINOPHEN 325 MG TABLET. PO SCH ×4 (05:33→18:12)
[2020-11-10] MEDS: LEVOTHYROXINE 112 MCG TABLET PO SCH (05:33)
[2020-11-10] MEDS: HEPARIN for SUB-Q USE 5,000 UNIT/ML VIAL. SQ SCH ×3 (05:36→21:25)
[2020-11-10 05:39] LABS: CALCIUM 9.5 mg/dL (8.5-10.1); CREATININE 2.8 mg/dL (0.6-1.0); GFR 20.9
[2020-11-10 05:51] LABS: POTASSIUM 6.7 mmol/L (3.5-5.1)
[2020-11-10] MEDS ORDERED: DEXTROSE 50% 25 GM / 50ML DISP.SYRIN. IV ONE (06:30)
[2020-11-10] MEDS ORDERED: INSULIN REGULAR 100 UNIT/ML 3ML VIAL. IV ONE (06:30)
[2020-11-10] MEDS ORDERED: SODIUM POLYSTYRENE SULFON/SORB 15 GM/60 ML ORAL.SUSP. PO ONE ×2 (06:30→19:00)
[2020-11-10] MEDS ORDERED: SODIUM BICARB ADULT 8.4% 50 MEQ/50 ML DISP.SYRIN. IV ONE (06:30)
[2020-11-10] MEDS: INSULIN LISPRO 300 UNITS/3 ML VIAL. SQ SCH ×3 (08:00→17:00)
[2020-11-10] MEDS: SODIUM BICARBONATE VIAL 50 MEQ in IV 1/2 NORMAL SALINE 1,000 ML IV SCH ×3 (08:39→23:40)
[2020-11-10] MEDS: GABAPENTIN 100 MG CAPSULE. PO SCH ×3 (09:00→21:23)
[2020-11-10] MEDS: MULTIVITAMIN with MINERAL TABLET. PO SCH (09:00)
[2020-11-10] MEDS: MAGNESIUM OXIDE 400 MG TABLET PO SCH (09:00)
[2020-11-10] MEDS: VITAMIN B COMPLEX TABLET. PO SCH (09:00)
[2020-11-10] MEDS: FOLIC ACID 1 MG TABLET. PO SCH (09:00)
[2020-11-10] MEDS: CETIRIZINE HCL 10 MG TABLET. PO SCH (09:00)
--- NOTE | 2020-11-10 10:48 | PDOC ---
PULMONARY PROGRESS NOTES DATE: 11/10/20 TIME: 10:43 Subjective Received 2 mg IV ativan last night, placed on BIPAP for hypoxia. extubated on 10/31 Vitals Vital Signs Date Time Temp Pulse Resp B/P (MAP) Pulse Ox O2 Delivery O2 Flow Rate FiO2 11/10/20 08:45 91 BiPAP/CPAP 11/10/20 07:59 94.6 69 22 169/85 (113) 94.6 11/09/20 20:00 12.0 Comments visual exam done due to COVID resting on BIPAP, 60%FIO2 ROS: No Nausea, No Chest Pain, No Abdominal Pain, No Increase Cough Labs Laboratory Tests Test 11/08/20 13:04 11/08/20 17:17 11/08/20 23:28 11/09/20 05:00 Glucose (Fingerstick) 181 mg/dL (70-99) 236 mg/dL (70-99) 199 mg/dL (70-99) White Blood Count 8.3 x10^3/uL (4.0-11.0) Red Blood Count 3.21 x10^6/uL (3.50-5.40) Hemoglobin 9.6 g/dL (12.0-15.5) Hematocrit 29.4 % (36.0-47.0) Mean Corpuscular Volume 92 fL (79-100) Mean Corpuscular Hemoglobin 30 pg (25-35) Mean Corpuscular Hemoglobin Concent 33 g/dL (31-37) Red Cell Distribution Width 16.4 % (11.5-14.5) Platelet Count 227 x10^3/uL (140-400) Neutrophils (%) (Auto) 84 % (31-73) Lymphocytes (%) (Auto) 5 % (24-48) Monocytes (%) (Auto) 10 % (0-9) Eosinophils (%) (Auto) 0 % (0-3) Basophils (%) (Auto) 1 % (0-3) Neutrophils # (Auto) 7.0 x10^3/uL (1.8-7.7) Lymphocytes # (Auto) 0.4 x10^3/uL (1.0-4.8) Monocytes # (Auto) 0.8 x10^3/uL (0.0-1.1) Eosinophils # (Auto) 0.0 x10^3/uL (0.0-0.7) Basophils # (Auto) 0.1 x10^3/uL (0.0-0.2) Sodium Level 132 mmol/L (136-145) Potassium Level 6.4 mmol/L (3.5-5.1) Chloride Level 102 mmol/L (98-107) Carbon Dioxide Level 26 mmol/L (21-32) Anion Gap 4 (6-14) Blood Urea Nitrogen 64 mg/dL (7-20) Creatinine 3.0 mg/dL (0.6-1.0) Estimated GFR (Cockcroft-Gault) 19.3 Glucose Level 145 mg/dL (70-99) Calcium Level 9.1 mg/dL (8.5-10.1) Test 11/09/20 08:53 11/09/20 11:04 11/09/20 17:56 11/09/20 21:32 Glucose (Fingerstick) 109 mg/dL (70-99) 139 mg/dL (70-99) 215 mg/dL (70-99) 229 mg/dL (70-99) Test 11/10/20 05:00 11/10/20 07:51 11/10/20 08:44 Sodium Level 132 mmol/L (136-145) Potassium Level 6.7 mmol/L (3.5-5.1) Chloride Level 102 mmol/L (98-107) Carbon Dioxide Level 27 mmol/L (21-32) Anion Gap 3 (6-14) Blood Urea Nitrogen 65 mg/dL (7-20) Creatinine 2.8 mg/dL (0.6-1.0) Estimated GFR (Cockcroft-Gault) 20.9 Glucose Level 99 mg/dL (70-99) Calcium Level 9.5 mg/dL (8.5-10.1) Glucose (Fingerstick) 69 mg/dL (70-99) 126 mg/dL (70-99) Laboratory Tests Test 11/09/20 11:04 11/09/20 17:56 11/09/20 21:32 11/10/20 05:00 Glucose (Fingerstick) 139 mg/dL (70-99) 215 mg/dL (70-99) 229 mg/dL (70-99) Sodium Level 132 mmol/L (136-145) Potassium Level 6.7 mmol/L (3.5-5.1) Chloride Level 102 mmol/L (98-107) Carbon Dioxide Level 27 mmol/L (21-32) Anion Gap 3 (6-14) Blood Urea Nitrogen 65 mg/dL (7-20) Creatinine 2.8 mg/dL (0.6-1.0) Estimated GFR (Cockcroft-Gault) 20.9 Glucose Level 99 mg/dL (70-99) Calcium Level 9.5 mg/dL (8.5-10.1) Test 11/10/20 07:51 11/10/20 08:44 Glucose (Fingerstick) 69 mg/dL (70-99) 126 mg/dL (70-99) Medications Active Scripts Medications Dose Route/Sig Max Daily Dose Days Date Category Dose Instructions Lomotil Tablet (Diphenoxylate Hcl/Atropine) 1 Each Tablet 1 Tab PO TID 3 10/28/20 Rx Dicyclomine Hcl 20 Mg Tablet 1 Tab PO TID 10 10/28/20 Rx Zithromax (Azithromycin) 250 Mg Tablet 250 Mg PO DIRECTED 10/28/20 Rx Take 2 PO x 1 days Then take 1 PO q 24 hour for the next 4 days Doxycycline Hyclate 100 Mg Tablet 1 Tab PO BID 3 12/04/19 Rx Culturelle (Lactobacillus Rhamnosus Gg) 1 Each Cap.sprink 1 Cap PO BID 14 12/04/19 Rx Zofran (Ondansetron Hcl) 4 Mg Tablet 4 Mg PO Q8HRS PRN 12/02/19 Reported Tramadol Hcl 50 Mg Tablet 50 Mg PO Q6HRS PRN 12/02/19 Reported Tears Again (Polyvinyl Alcohol) 15 Ml Drops 2 Drop EACHEYE Q4HRS 30 12/02/19 Reported Polyvinyl Alcohol 15 Ml Drops 2 Drop EACHEYE Q4HRS 30 12/02/19 Reported Ropinirole Hcl 1 Mg Tablet 1 Mg PO BID 12/02/19 Reported Pantoprazole Sodium (Pantoprazole Sodium) 40 Mg Tablet.dr 40 Mg PO DAILYAC 12/02/19 Reported B-Complex Plus Vitamin C (B Complex With Vitamin C) 1 Each Tablet 1 Each PO DAILY 12/02/19 Reported Magnesium Oxide 400 Mg Tablet 400 Mg PO DAILY 12/02/19 Reported Loratadine 10 Mg Tablet 10 Mg PO DAILY 12/02/19 Reported Ketotifen Fumarate 5 Ml Drops 1 Drop EACHEYE BID 12/02/19 Reported Humalog (Insulin Lispro) 100 Unit/1 Ml Vial 100 Unit SQ BIDWMEALS 12/02/19 Reported 70 - 150 0 units 151 - 200 0 units 201 - 250 2 units 251 - 300 3 units 301 - 349 4 units if FSBS is under 70 or 350 and over call MD [guaifenesin Syrup] 10 Ml PO Q4HRS PRN 12/02/19 Reported Mucinex (Guaifenesin) 600 Mg Tablet.er 600 Mg PO BID 12/02/19 Reported Coreg (Carvedilol) 25 Mg Tablet 50 Mg PO BIDWMEALS 12/02/19 Reported Peridex (Chlorhexidine Gluconate) 15 Ml Mouthwash 15 Ml PO BID 30 12/02/19 Reported Swish in mouth for 30 seconds then spit out Calcium Carbonate 500 Mg Tablet 500 Mg PO Q4HRS 12/02/19 Reported Atorvastatin Calcium 10 Mg Tablet 10 Mg PO HS 12/02/19 Reported Acetaminophen 325 Mg Tablet 650 Mg PO Q6HRS 12/02/19 Reported Metformin Hcl 500 Mg Tablet 250 Mg PO BIDWMEALS 12/03/18 Reported Imodium A-D (Loperamide HCl) 2 Mg Capsule 2 Mg PO DAILY PRN 12/03/18 Reported Risperidone 0.5 Mg Tablet 0.5 Mg PO DAILY 03/21/18 Reported Risperidone 1 Mg Tablet 1 Tab PO QHS 03/21/18 Reported Levothyroxine Sodium 112 Mcg Tablet 1 Tab PO DAILY 03/21/18 Reported Advair 500-50 Diskus (Fluticasone/Salmeterol) 1 Each Disk.w.dev 1 Puff IH BID 03/21/18 Reported Nystatin 15 Gm Powder 1 Scott TP PRN BID PRN 03/21/18 Reported Clonazepam (Clonazepam) 0.5 Mg Tablet 1 Tab PO BID 09/30/16 Reported Montelukast Sodium Tablet (Montelukast Sodium) 10 Mg Tablet 1 Tab PO HS 02/18/16 Reported Gas-X (Simethicone) 80 Mg Tab.chew 160 Mg PO Q2HR PRN 02/18/16 Reported Gabapentin (Gabapentin) 100 Mg Capsule 100 Mg PO TID 02/18/[address] chest 1. Cardiomegaly. 2. Increased consolidative opacities in the left lung and scattered groundglass opacities in the right lung are suspicious for pneumonia. Some of the opacities in the left upper lobe are chronic scarring or atelectasis present on prior exam. 3. New trace bilateral pleural effusions. No large or drainable pleural effusion. Electronically signed by: Renetta Edouard MD (11/04/2020 4:07 PM) [id number] Impression . IMPRESSION: 1. Acute on chronic hypoxemic hypercapnic respiratory failure, extubated .10/31, Has been restless on/off. received ativan last night/ increase hypoxia/ on BIPAP/ 60% 2. Abnormal x-ray compatible with acute on chronic congestive heart failure,/ COVID-19. 3. Abnormal ct chest c/w COVID-19 PNEUMONIA/ ? BACTERIAL PNA 4. COVID-19 5. Acute metabolic toxic encephalopathy. 6. History of status post pacemaker defibrillator implantation. 7. Restless legs syndrome. 8. Schizoaffective disorder. 9. Acute on chronic systolic heart failure. 9. Non-ST segment elevation myocardial infarction. 10. Cardiomyopathy, ejection fraction on 11/2019 revealed EF of 45%. 11. Atrial fibrillation with V paced, currently underlying sinus rhythm. 12. Hyperlipidemia. 13. Hypothyroidism. 14. Fever, rule out bacteremia. 15. Sepsis.resolved 16. JACKIE Plan . PLAN: d/w RN, reduce prn ativan dos eto 0.5 mg suspect hypoventilation post benzo, will check ABG once awake, try off BIPAP Extubated on , avoid sedative medications PRN haldol for agitation off ABX Follow cardiology recs Follow nephrology recs, worsenig renal function and hyperkalemia / follow renal rec PT/OT/ST PPN for nutritional support, Failed swallow study DVT/GI PPX D/W RN MERRY STOKES MD Nov 10, 2020 10:48
[2020-11-10 11:43] LABS: BASE EXCESS ABG 0 mmol/L (-3-3); HCO3 ABG 26 mmol/L (21-28); PCO2 ABG 46 mmHg (35-46); PO2 ABG 93 mmHg (65-108); SAT O2 ABG 96 % (92-99)
[2020-11-10 11:48] LABS: FIO2 ABG BIPAP 50%
--- NOTE | 2020-11-10 12:02 | PDOC ---
[employer] [facility] PROGRESS NOTE Date of Service DOS: DATE: 11/10/20 TIME: 12:00 Chief Complaint Chief Complaint COVID Positive Acute hypoxemic hypercapnic respiratory failure Acute on chronic heart failure Blood cultures positive Heart failure PMH PA AICD in UTI Hypocalcemia Hypertriglyceridemia Anemia Low platelets Hypoglycemia (43) Elevated Cr History of Present Illness History of Present Illness 10/31 Patient seen and examined in ICU Patient sedated with propofol Possible COVID - pending under investigation Discussed with RN Chart reviewed Blood culture positive Vent settings as follows AC/18/450/40 11/01 Patient is COVID positive Patient seen and examined in ICU Patient sedated with propofol Discussed with RN Discussed with Insurance Checker Chart reviewed Blood cultures are positive 11/02 Patient is COVID positive Patient seen and examined in ICU Propofol IV Discussed with RN Chart Reviewed Blood cultures positive 11/03/2020 Patient resting w/ NAD on Bipap Patient is COVID positive Patient seen and examined in ICU Propofol IV Discussed with RN Chart Reviewed Blood cultures positive 11/04/2020 Patient seen and evaluated. Tachypneic, afebrile. Still breathing on BiPAP. Continue IV Zosyn, positive blood cultures most likely contaminant. Continue diuresis. She is on Levophed and Precedex. Still with some agitation. CT chest pending to evaluate possible thoracentesis. Total time spent 35 minutes, >50% time spent reviewing charts, reviewing labs, discussing with RN and social professionals. 11/05/2020 Patient seen and evaluated. She is still intermittently requiring BiPAP. Afebrile, tachypneic, tachycardic. Sedated with Haldol. CT chest yesterday showing trace bilateral pleural effusion, no drainable fluid collection. Continue COVID-19 treatment with steroids and supportive care. 11/06/2020 Patient seen and evaluated, status post extubation 10/31. Afebrile, tachycardic. She is breathing intermittently on BiPAP, currently on 2 L nasal cannula. States she is hungry, swallow eval pending. Continue steroids and antibiotics, per ID. Continue diuresis. 11/07/2020 Patient seen evaluate bedside. Status post extubation on 1217. Rising creatinine of 3.3. Pending nephrology evaluation.> 50% time spent in patient chart, labs, and imaging review and in discussion with RN and SW 11/08/2020 Patient seen and examined bedside. No acute events overnight. Saturating 96% on 4 L nasal cannula during the day and tolerating 35% on BiPAP. Passed speech swallow study and is currently on a dysphagia diet. Augmentin discontinued today per ID.> 50% time spent in patient chart, labs, and imaging review and in discussion with RN and MADDIE 11/09/2020 No acute events overnight. Patient is afebrile. Patient seen and examined bedside. Is somewhat more confused and agitated today mainly due to incontinence to stool. Rectal tube has been removed Hutchins is intact. Will encourage thickened liquids of 240 cc every 6 hours mainly due to JACKIE and worsening potassium. Will defer the rest of the management to nephrology for improving renal function.> 50% time spent in patient chart, labs, and imaging review and in discussion with RN and MADDIE 11/10/2020 Patient given 2 mg IV Ativan last night and subsequently placed on BiPAP. Will change dose to 0.5 p.o. Ativan and see if we can wean off BiPAP and put back on nasal cannula. Patient's chart, labs, images were reviewed and discussed with RN Vitals/I&O Vitals/I&O: Vital Signs Date Time Temp Pulse Resp B/P (MAP) Pulse Ox O2 Delivery O2 Flow Rate FiO2 11/10/20 11:49 96 BiPAP/CPAP 11/10/20 08:00 12.0 11/10/20 07:59 94.6 69 22 169/85 (113) 94.6 l I & O 11/09/20 11/09/20 11/10/20 15:00 23:00 07:00 Intake Total 220 ml 400 ml Output Total 750 ml 1000 ml 650 ml Balance -530 ml -600 ml -650 ml Physical Exam Physical Exam: GENERAL: Alert awake female HEENT: Both pupils are round and reacting. No conjunctival lesion. No lesion in the mouth. NECK: Supple, no JVP, no lymphadenopathy. LUNGS: Clear. HEART: S1, S2 regular. ABDOMEN: Soft bowel sounds present nontender nondistended Fecal tube present EXTREMITIES: No edema or cyanosis. SKIN: Unremarkable. NEUROLOGIC: Alert awake General: Alert, Cooperative, No acute distress Heart: Regular rate Abdomen: Normal bowel sounds Extremities: No clubbing Skin: No breakdown Labs Labs: Laboratory Tests Test 11/09/20 17:56 11/09/20 21:32 11/10/20 05:00 11/10/20 07:51 Glucose (Fingerstick) 215 mg/dL (70-99) 229 mg/dL (70-99) 69 mg/dL (70-99) Sodium Level 132 mmol/L (136-145) Potassium Level 6.7 mmol/L (3.5-5.1) Chloride Level 102 mmol/L (98-107) Carbon Dioxide Level 27 mmol/L (21-32) Anion Gap 3 (6-14) Blood Urea Nitrogen 65 mg/dL (7-20) Creatinine 2.8 mg/dL (0.6-1.0) Estimated GFR (Cockcroft-Gault) 20.9 Glucose Level 99 mg/dL (70-99) Calcium Level 9.5 mg/dL (8.5-10.1) Test 11/10/20 08:44 11/10/20 09:12 Glucose (Fingerstick) 126 mg/dL (70-99) O2 Saturation 96 % (92-99) Arterial Blood pH 7.36 (7.35-7.45) Arterial Blood pCO2 at Patient Temp 46 mmHg (35-46) Arterial Blood pO2 at Patient Temp 93 mmHg (65-108) Arterial Blood HCO3 26 mmol/L (21-28) Arterial Blood Base Excess 0 mmol/L (-3-3) FiO2 Bipap 50% Assessment and Plan Assessmemt and Plan Problems Medical Problems: (1) AMS (altered mental status) Status: Acute (2) Hypercapnia Status: Acute (3) Person under investigation for COVID-19 Status: Acute (4) Respiratory failure Status: Acute (5) UTI (urinary tract infection) Status: Acute Comment Review of Relevant I have reviewed the following items lucas (where applicable) has been applied. Medications: Current Medications Medications (Trade) Dose Ordered Sig/Eber Route PRN Reason Start Time Stop Time Status Last Admin Dose Admin Sodium Bicarbonate 50 meq/Sodium Chloride 1,050 ml @ 100 mls/hr [id number] IV 11/09/20 16:00 11/10/20 08:39 Dextrose (Dextrose 50%-Water Syringe) 25 gm 1X ONCE IV 11/09/20 15:00 11/09/20 15:01 DC 11/09/20 15:06 Insulin Human Regular (HumuLIN R VIAL) 10 unit 1X ONCE IV 11/09/20 15:00 11/09/20 15:01 DC 11/09/20 15:13 Sodium Bicarbonate (Sodium Bicarb Adult 8.4% Syr) 50 meq 1X ONCE IV 11/10/20 06:30 11/10/20 06:31 DC 11/10/20 07:41 Dextrose (Dextrose 50%-Water Syringe) 25 gm 1X ONCE IV 11/10/20 06:30 11/10/20 06:31 DC 11/10/20 07:42 Insulin Human Regular (HumuLIN R VIAL) 10 unit 1X ONCE IV 11/10/20 06:30 11/10/20 06:31 DC 11/10/20 07:43 Justifications for Admission Other Justification SARAVANAN VINCENT MD Nov 10, 2020 12:02
--- NOTE | 2020-11-10 12:10 | PDOC ---
PROGRESS NOTES Date of Service: DATE: 11/10/20 TIME: 12:09 Subjective Subjective On BiPAP, 60% FiO2 Objective Objective Vital Signs Date Time Temp Pulse Resp B/P (MAP) Pulse Ox O2 Delivery O2 Flow Rate FiO2 11/10/20 11:49 96 BiPAP/CPAP 11/10/20 08:00 12.0 11/10/20 07:59 94.6 69 22 169/85 (113) 94.6 Intake and Output 11/10/20 07:00 Intake Total 620 ml Output Total 2400 ml Balance -1780 ml Intake Oral 220 ml IV Total 400 ml Output Urine Total 2400 ml # Bowel Movements 8 Physical Exam Abdomen: Normal bowel sounds Heart: Regular rate Extremities: No clubbing General: Alert, Cooperative, No acute distress HEENT: PERRLA Lungs: Clear to auscultation, Normal air movement MUSCULOSKELETAL: No deformity, No swelling Neuro: Other (CONFUSED, NO ASYMETRY) Psych/Mental Status: Other (FLAT CONFUSED AFFECT) Skin: No breakdown Assessment Assessment 1. Acute respiratory failure requiting intubation with a/c CHF and Covid PNA: s/p extubation, pulmonary team following 2. Acute on chronic systolic CHF: appears better compensated 3. NSTEMI: Most probable type II, demand ischemia. Plan ischemic evaluation as an outpatient. 4. Cardiomyopathy: prior EF at 45%. Plan 2D echo once recovered from Covid. 5. PAFIB. Presently V paced 6. Hypertension; controlled 7. Hyperlipidemia; statin. 8. Diabetes, II 9. Hypothyroidism; on replacement 10. Encephalopathy with underlying anxiety, depression, schizoaffective disorder. 11. JACKIE, hyperkalemia, nephrology following. Plan Plan of Care Problems Medical Problems: (1) AMS (altered mental status) Status: Acute (2) Hypercapnia Status: Acute (3) Person under investigation for COVID-19 Status: Acute (4) Respiratory failure Status: Acute (5) UTI (urinary tract infection) Status: Acute Comment Review of Relevant I have reviewed the following items lucas (where applicable) has been applied. Labs Laboratory Tests Test 11/09/20 17:56 11/09/20 21:32 11/10/20 05:00 11/10/20 07:51 Glucose (Fingerstick) 215 mg/dL (70-99) 229 mg/dL (70-99) 69 mg/dL (70-99) Sodium Level 132 mmol/L (136-145) Potassium Level 6.7 mmol/L (3.5-5.1) Chloride Level 102 mmol/L (98-107) Carbon Dioxide Level 27 mmol/L (21-32) Anion Gap 3 (6-14) Blood Urea Nitrogen 65 mg/dL (7-20) Creatinine 2.8 mg/dL (0.6-1.0) Estimated GFR (Cockcroft-Gault) 20.9 Glucose Level 99 mg/dL (70-99) Calcium Level 9.5 mg/dL (8.5-10.1) Test 11/10/20 08:44 11/10/20 09:12 Glucose (Fingerstick) 126 mg/dL (70-99) O2 Saturation 96 % (92-99) Arterial Blood pH 7.36 (7.35-7.45) Arterial Blood pCO2 at Patient Temp 46 mmHg (35-46) Arterial Blood pO2 at Patient Temp 93 mmHg (65-108) Arterial Blood HCO3 26 mmol/L (21-28) Arterial Blood Base Excess 0 mmol/L (-3-3) FiO2 Bipap 50% Microbiology 10/30/20 Blood Culture - Final, Complete 10/30/20 Urine Culture - Final, Complete 10/30/20 Antimicrobic Susceptibility - Final, Complete Medications Current Medications Dextrose (Dextrose 50%-Water Syringe) 25 gm 1X ONCE IV Last administered on 11/09/20at 15:06; Start 11/09/20 at 15:00; Stop 11/09/20 at 15:01; Status DC Dextrose (Dextrose 50%-Water Syringe) 25 gm 1X ONCE IV Last administered on 11/10/20at 07:42; Start 11/10/20 at 06:30; Stop 11/10/20 at 06:31; Status DC Insulin Human Lispro (HumaLOG) 10 units 1X ONCE IV ; Start 11/09/20 at 15:00; Stop 11/09/20 at 14:56; Status DC Insulin Human Regular (HumuLIN R VIAL) 10 unit 1X ONCE IV Last administered on 11/09/20at 15:13; Start 11/09/20 at 15:00; Stop 11/09/20 at 15:01; Status DC Insulin Human Regular (HumuLIN R VIAL) 10 unit 1X ONCE IV Last administered on 11/10/20at 07:43; Start 11/10/20 at 06:30; Stop 11/10/20 at 06:31; Status DC Lorazepam (Ativan Inj) 0.5 mg PRN Q4HRS PRN IVP ANXIETY / AGITATION; Start 11/10/20 at 09:15 Sodium Bicarbonate 50 meq/Sodium Chloride 1,050 ml @ 100 mls/hr [id number] IV Last administered on 11/10/20at 08:39; Start 11/09/20 at 16:00 Sodium Polystyrene Sulfonate (Kayexalate) 30 gm 1X ONCE PO ; Start 11/10/20 at 06:30; Stop 11/10/20 at 06:31; Status DC Sodium Bicarbonate (Sodium Bicarb Adult 8.4% Syr) 50 meq 1X ONCE IV Last administered on 11/10/20at 07:41; Start 11/10/20 at 06:30; Stop 11/10/20 at 06:31; Status DC Ziprasidone (Geodon Im) 10 mg PRN QHS PRN IM ANXIETY / AGITATION; Start 10/16 05/04 at 22:45 Vitals/I & O Vital Sign - Last 24 Hours 11/09/20 11/09/20 11/09/20 11/09/20 12:12 12:37 13:28 15:30 Temp 98.0 98.0 Pulse 98 81 80 87 Resp 24 B/P (MAP) 164/98 (120) 186/84 (118) Pulse Ox 2 O2 Delivery Nasal Cannula O2 Flow Rate 97.0 11/09/20 11/09/20 11/09/20 11/09/20 17:18 19:20 19:30 20:00 Temp 97.4 97.4 Pulse 85 130 114 Resp 24 36 B/P (MAP) 202/115 (144) 164/74 (104) Pulse Ox 68 72 O2 Delivery Nasal Cannula Venturi Mask Nasal Cannula O2 Flow Rate 12.0 15.0 12.0 11/09/20 11/09/20 11/09/20 11/09/20 20:00 20:24 20:30 21:02 Pulse 136 96 Resp 33 29 B/P (MAP) 138/85 (102) Pulse Ox 84 94 99 98 O2 Delivery BiPAP/CPAP BiPAP/CPAP BiPAP/CPAP BiPAP/CPAP 11/09/20 11/09/20 11/09/20 11/10/20 21:30 22:30 23:30 00:00 Temp 97.6 97.6 Pulse 72 62 60 Resp 23 18 19 B/P (MAP) 127/75 (92) 118/7 (44) 119/73 (88) Pulse Ox 99 100 100 98 O2 Delivery BiPAP/CPAP BiPAP/CPAP BiPAP/CPAP 11/10/20 11/10/20 11/10/20 11/10/20 00:27 00:30 01:30 02:30 Pulse 60 70 68 70 Resp 18 18 B/P (MAP) 119/73 131/73 (92) 143/76 (98) 152/82 (105) Pulse Ox 100 97 98 11/10/20 11/10/20 11/10/20 11/10/20 03:30 04:00 04:30 05:24 Temp 97.7 97.7 Pulse 74 74 70 Resp 20 19 B/P (MAP) 154/91 (112) 163/92 (115) 152/82 Pulse Ox 99 98 96 O2 Delivery BiPAP/CPAP 11/10/20 11/10/20 11/10/20 11/10/20 07:59 08:00 08:45 11:49 Temp 94.6 94.6 Pulse 69 Resp 22 B/P (MAP) 169/85 (113) Pulse Ox 95 91 96 O2 Delivery BiPAP/CPAP Bi-pap BiPAP/CPAP BiPAP/CPAP O2 Flow Rate 12.0 Intake and Output 11/09/20 11/09/20 11/10/20 15:00 23:00 07:00 Intake Total 220 ml 400 ml Output Total 750 ml 1000 ml 650 ml Balance -530 ml -600 ml -650 ml RADHA SWAN MD Nov 10, 2020 12:10
[2020-11-10] MEDS: DIPHENOXYLATE/ATROPINE TABLET. PO SCH ×3 (14:00→21:00)
[2020-11-10] MEDS: cloNIDine HCL 0.2 MG TABLET PO SCH ×3 (14:00→21:24)
[2020-11-10] MEDS: DICYCLOMINE HCL 10 MG CAPSULE PO SCH ×3 (14:00→21:23)
[2020-11-10] MEDS: DEXTROSE 50% 25 GM / 50ML DISP.SYRIN. IV PRN (14:01)
[2020-11-10] MEDS: ASPIRIN CHEWABLE 81 MG TABLET. PO SCH (14:02)
[2020-11-10] MEDS: rOPINIRole 1 MG TABLET. PO SCH (14:03)
[2020-11-10] MEDS: LACTOBACILLUS RHAMNOSUS GG 1 CAPSULE. PO SCH ×2 (14:03→21:23)
[2020-11-10] MEDS: buPROPion XL 150 MG TAB.ER.24H. PO SCH (14:05)
[2020-11-10] MEDS: DEXAMETHASONE SOD PHOS 4 MG/ML VIAL IVP SCH (14:05)
--- NOTE | 2020-11-10 15:11 | PDOC ---
Renal-Progress Notes Subjective Notes Notes SOMNOLENT History of Present Illness Hx of present illness STABLE Vitals Vitals Vital Signs Date Time Temp Pulse Resp B/P (MAP) Pulse Ox O2 Delivery O2 Flow Rate FiO2 11/10/20 14:06 69 169/85 11/10/20 11:59 96.4 20 97 BiPAP/CPAP 96.4 11/10/20 08:00 12.0 Weight Weight [ ] I.O. Intake and Output Intake and Output 11/10/20 07:00 Intake Total 620 ml Output Total 2400 ml Balance -1780 ml Intake Oral 220 ml IV Total 400 ml Output Urine Total 2400 ml # Bowel Movements 8 Labs Labs Laboratory Tests Test 11/09/20 17:56 11/09/20 21:32 11/10/20 05:00 11/10/20 07:51 Glucose (Fingerstick) 215 mg/dL (70-99) 229 mg/dL (70-99) 69 mg/dL (70-99) Sodium Level 132 mmol/L (136-145) Potassium Level 6.7 mmol/L (3.5-5.1) Chloride Level 102 mmol/L (98-107) Carbon Dioxide Level 27 mmol/L (21-32) Anion Gap 3 (6-14) Blood Urea Nitrogen 65 mg/dL (7-20) Creatinine 2.8 mg/dL (0.6-1.0) Estimated GFR (Cockcroft-Gault) 20.9 Glucose Level 99 mg/dL (70-99) Calcium Level 9.5 mg/dL (8.5-10.1) Test 11/10/20 08:44 11/10/20 09:12 Glucose (Fingerstick) 126 mg/dL (70-99) O2 Saturation 96 % (92-99) Arterial Blood pH 7.36 (7.35-7.45) Arterial Blood pCO2 at Patient Temp 46 mmHg (35-46) Arterial Blood pO2 at Patient Temp 93 mmHg (65-108) Arterial Blood HCO3 26 mmol/L (21-28) Arterial Blood Base Excess 0 mmol/L (-3-3) FiO2 Bipap 50% Micro Micro Microbiology 10/30/20 Blood Culture - Final, Complete 10/30/20 Urine Culture - Final, Complete 10/30/20 Antimicrobic Susceptibility - Final, Complete Review of Systems Constitutional: yes: other (CONFUSED BUT LESS SO) Physical Exam General Appearance: no apparent distress Skin: warm Respiratory: decreased breath sounds Heart: S1S2 Abdomen: soft, bowel sounds present Genitourinary: bladder flat Extremities: pulses present Neurology: alert, oriented, follow commands Musculoskeletal: Osteoarthritis, Other Assessment Assessment IMP JACKIE-ATN-CR OF 3.7 ON ADMIT - IMPROVED TO 3.0-NO CKD HX HYPERKALEMIA-RECURRENT CKD STAGE 2 WITH NL BASELINE CR DEHYDRATION [id number] CM WITH EF OF 45% COVID 19 INFECTION RESP FAILURE SCHIZOPHRENIA UTI KLEBSIELLA-CLEARING PLAN STOPPED PPN HYDRATION WITH HCO3 OFF KCL UO IS IMPROVING RENAL SONOGRAM PENDING LABS IN AM WILL FOLLOW WILL CHECK TTKG SPOT URINE K LAB REPORTS NO HEMOLYSIS MORE KAYEXALATE, DEXTROSE AND INSULIN GIVEN TODAY SUMA SCHMID MD Nov 10, 2020 15:11
[2020-11-10] MEDS: clonazePAM 0.5 MG TABLET PO SCH ×2 (18:12→21:23)
--- NOTE | 2020-11-10 20:55 | RAD ---
Exam: Ultrasound renal complete Indication: Acute kidney injury, Covid Technique: Real-time grayscale and color Doppler images of the kidney were obtained by the department pediatric physician. Comparisons: None FINDINGS: Right kidney measures 11.1 cm in length. No hydronephrosis. Left kidney measures 11.3 cm in length. No hydronephrosis. Bladder is decompressed not well seen. Visualized portions aorta and IVC are unremarkable. IMPRESSION: No hydronephrosis. Electronically signed by: Leonel Hamilton MD (11/10/2020 8:52 PM) JEROD
[2020-11-10] MEDS: ATORVASTATIN CALCIUM 10 MG TABLET. PO SCH (21:23)
[2020-11-10] MEDS: risperiDONE 1 MG TABLET. PO SCH (21:23)
[2020-11-10] MEDS: FAMOTIDINE 20 MG TABLET. PO SCH (21:23)
[2020-11-10] MEDS: guaiFENesin ORAL 200 MG/10 ML LIQUID. PO PRN (21:24)
[2020-11-10] MEDS: HALOPERIDOL LACTATE 5 MG/ML VIAL. IVP PRN (23:40)
[2020-11-11] MEDS: METOPROLOL IV PUSH 5 MG/5 ML VIAL. IVP SCH ×3 (00:32→11:00)
[2020-11-11] MEDS: CALCIUM CARBONATE 500 MG TABLET PO SCH ×6 (00:33→21:38)
[2020-11-11] MEDS: ACETAMINOPHEN 325 MG TABLET. PO SCH ×5 (00:33→21:43)
[2020-11-11 03:00] VITALS: BP 187/78
[2020-11-11] MEDS: POLYVINYL ALCOHOL 1.4% OPHTH SOLUTION 15ML BOTTLE. OU SCH ×6 (04:00→20:00)
[2020-11-11] MEDS: HEPARIN for SUB-Q USE 5,000 UNIT/ML VIAL. SQ SCH ×3 (05:28→21:41)
[2020-11-11] MEDS: LEVOTHYROXINE 112 MCG TABLET PO SCH (05:29)
[2020-11-11 07:00] VITALS: BP 176/89
[2020-11-11] MEDS: INSULIN LISPRO 300 UNITS/3 ML VIAL. SQ SCH ×3 (08:00→16:24)
[2020-11-11] MEDS: clonazePAM 0.5 MG TABLET PO SCH ×2 (09:00→21:39)
[2020-11-11] MEDS: MULTIVITAMIN with MINERAL TABLET. PO SCH (09:00)
[2020-11-11] MEDS: DIPHENOXYLATE/ATROPINE TABLET. PO SCH ×3 (09:00→21:39)
[2020-11-11] MEDS: ASPIRIN CHEWABLE 81 MG TABLET. PO SCH (09:12)
[2020-11-11] MEDS: DICYCLOMINE HCL 10 MG CAPSULE PO SCH ×3 (09:12→21:40)
[2020-11-11] MEDS: buPROPion XL 150 MG TAB.ER.24H. PO SCH (09:12)
[2020-11-11] MEDS: LACTOBACILLUS RHAMNOSUS GG 1 CAPSULE. PO SCH ×2 (09:13→21:38)
[2020-11-11] MEDS: VITAMIN B COMPLEX TABLET. PO SCH (09:13)
[2020-11-11] MEDS: rOPINIRole 1 MG TABLET. PO SCH (09:13)
[2020-11-11] MEDS: CETIRIZINE HCL 10 MG TABLET. PO SCH (09:14)
[2020-11-11] MEDS: GABAPENTIN 100 MG CAPSULE. PO SCH ×3 (09:14→21:41)
[2020-11-11] MEDS: MAGNESIUM OXIDE 400 MG TABLET PO SCH (09:14)
[2020-11-11] MEDS: FOLIC ACID 1 MG TABLET. PO SCH (09:14)
[2020-11-11] MEDS: cloNIDine HCL 0.2 MG TABLET PO SCH ×3 (09:14→21:40)
[2020-11-11] MEDS: DEXAMETHASONE SOD PHOS 4 MG/ML VIAL IVP SCH (09:15)
--- NOTE | 2020-11-11 10:15 | PDOC ---
PULMONARY PROGRESS NOTES DATE: 11/11/20 TIME: 10:13 Subjective extubated on 10/31 on 5 liters N/C, restless today HTN no other concerns from nursing Vitals Vital Signs Date Time Temp Pulse Resp B/P (MAP) Pulse Ox O2 Delivery O2 Flow Rate FiO2 11/11/20 09:14 128 178/76 11/11/20 03:00 20 94 Nasal Cannula 5.0 11/10/20 23:00 98.1 98.1 Comments visual exam done due to COVID-19 pandemic RRR Restless N/C No edema ROS: No Nausea, No Chest Pain, No Abdominal Pain, No Increase Cough Labs Laboratory Tests Test 11/09/20 11:04 11/09/20 17:56 11/09/20 21:32 11/10/20 05:00 Glucose (Fingerstick) 139 mg/dL (70-99) 215 mg/dL (70-99) 229 mg/dL (70-99) Sodium Level 132 mmol/L (136-145) Potassium Level 6.7 mmol/L (3.5-5.1) Chloride Level 102 mmol/L (98-107) Carbon Dioxide Level 27 mmol/L (21-32) Anion Gap 3 (6-14) Blood Urea Nitrogen 65 mg/dL (7-20) Creatinine 2.8 mg/dL (0.6-1.0) Estimated GFR (Cockcroft-Gault) 20.9 Glucose Level 99 mg/dL (70-99) Calcium Level 9.5 mg/dL (8.5-10.1) Test 11/10/20 07:51 11/10/20 08:44 11/10/20 09:12 11/10/20 18:18 Glucose (Fingerstick) 69 mg/dL (70-99) 126 mg/dL (70-99) 140 mg/dL (70-99) O2 Saturation 96 % (92-99) Arterial Blood pH 7.36 (7.35-7.45) Arterial Blood pCO2 at Patient Temp 46 mmHg (35-46) Arterial Blood pO2 at Patient Temp 93 mmHg (65-108) Arterial Blood HCO3 26 mmol/L (21-28) Arterial Blood Base Excess 0 mmol/L (-3-3) FiO2 Bipap 50% Test 11/11/20 09:20 Glucose (Fingerstick) 64 mg/dL (70-99) Laboratory Tests Test 11/10/20 18:18 11/11/20 09:20 Glucose (Fingerstick) 140 mg/dL (70-99) 64 mg/dL (70-99) Medications Active Scripts Medications Dose Route/Sig Max Daily Dose Days Date Category Dose Instructions Lomotil Tablet (Diphenoxylate Hcl/Atropine) 1 Each Tablet 1 Tab PO TID 3 10/28/20 Rx Dicyclomine Hcl 20 Mg Tablet 1 Tab PO TID 10 10/28/20 Rx Zithromax (Azithromycin) 250 Mg Tablet 250 Mg PO DIRECTED 10/28/20 Rx Take 2 PO x 1 days Then take 1 PO q 24 hour for the next 4 days Doxycycline Hyclate 100 Mg Tablet 1 Tab PO BID 3 12/04/19 Rx Culturelle (Lactobacillus Rhamnosus Gg) 1 Each Cap.sprink 1 Cap PO BID 14 12/04/19 Rx Zofran (Ondansetron Hcl) 4 Mg Tablet 4 Mg PO Q8HRS PRN 12/02/19 Reported Tramadol Hcl 50 Mg Tablet 50 Mg PO Q6HRS PRN 12/02/19 Reported Tears Again (Polyvinyl Alcohol) 15 Ml Drops 2 Drop EACHEYE Q4HRS 30 12/02/19 Reported Polyvinyl Alcohol 15 Ml Drops 2 Drop EACHEYE Q4HRS 30 12/02/19 Reported Ropinirole Hcl 1 Mg Tablet 1 Mg PO BID 12/02/19 Reported Pantoprazole Sodium (Pantoprazole Sodium) 40 Mg Tablet.dr 40 Mg PO DAILYAC 12/02/19 Reported B-Complex Plus Vitamin C (B Complex With Vitamin C) 1 Each Tablet 1 Each PO DAILY 12/02/19 Reported Magnesium Oxide 400 Mg Tablet 400 Mg PO DAILY 12/02/19 Reported Loratadine 10 Mg Tablet 10 Mg PO DAILY 12/02/19 Reported Ketotifen Fumarate 5 Ml Drops 1 Drop EACHEYE BID 12/02/19 Reported Humalog (Insulin Lispro) 100 Unit/1 Ml Vial 100 Unit SQ BIDWMEALS 12/02/19 Reported 70 - 150 0 units 151 - 200 0 units 201 - 250 2 units 251 - 300 3 units 301 - 349 4 units if FSBS is under 70 or 350 and over call MD [guaifenesin Syrup] 10 Ml PO Q4HRS PRN 12/02/19 Reported Mucinex (Guaifenesin) 600 Mg Tablet.er 600 Mg PO BID 12/02/19 Reported Coreg (Carvedilol) 25 Mg Tablet 50 Mg PO BIDWMEALS 12/02/19 Reported Peridex (Chlorhexidine Gluconate) 15 Ml Mouthwash 15 Ml PO BID 30 12/02/19 Reported Swish in mouth for 30 seconds then spit out Calcium Carbonate 500 Mg Tablet 500 Mg PO Q4HRS 12/02/19 Reported Atorvastatin Calcium 10 Mg Tablet 10 Mg PO HS 12/02/19 Reported Acetaminophen 325 Mg Tablet 650 Mg PO Q6HRS 12/02/19 Reported Metformin Hcl 500 Mg Tablet 250 Mg PO BIDWMEALS 12/03/18 Reported Imodium A-D (Loperamide HCl) 2 Mg Capsule 2 Mg PO DAILY PRN 12/03/18 Reported Risperidone 0.5 Mg Tablet 0.5 Mg PO DAILY 03/21/18 Reported Risperidone 1 Mg Tablet 1 Tab PO QHS 03/21/18 Reported Levothyroxine Sodium 112 Mcg Tablet 1 Tab PO DAILY 03/21/18 Reported Advair 500-50 Diskus (Fluticasone/Salmeterol) 1 Each Disk.w.dev 1 Puff IH BID 03/21/18 Reported Nystatin 15 Gm Powder 1 Scott TP PRN BID PRN 03/21/18 Reported Clonazepam (Clonazepam) 0.5 Mg Tablet 1 Tab PO BID 09/30/16 Reported Montelukast Sodium Tablet (Montelukast Sodium) 10 Mg Tablet 1 Tab PO HS 02/18/16 Reported Gas-X (Simethicone) 80 Mg Tab.chew 160 Mg PO Q2HR PRN 02/18/16 Reported Gabapentin (Gabapentin) 100 Mg Capsule 100 Mg PO TID 02/18/[address] chest 1. Cardiomegaly. 2. Increased consolidative opacities in the left lung and scattered groundglass opacities in the right lung are suspicious for pneumonia. Some of the opacities in the left upper lobe are chronic scarring or atelectasis present on prior exam. 3. New trace bilateral pleural effusions. No large or drainable pleural effus ion. Electronically signed by: Renetta Edouard MD (11/04/2020 4:07 PM) [id number] Impression . IMPRESSION: 1. Acute on chronic hypoxemic hypercapnic respiratory failure, extubated .12/17, Has been restless on/off. received ativan night of 11/09/ increase hypoxia/ on BIPAP/ 60%, now more awake, off BIPAP 2. Abnormal x-ray compatible with acute on chronic congestive heart failure,/ COVID-19. 3. Abnormal ct chest c/w COVID-19 PNEUMONIA/ ? BACTERIAL PNA 4. COVID-19 5. Acute metabolic toxic encephalopathy. 6. History of status post pacemaker defibrillator implantation. 7. Restless legs syndrome. 8. Schizoaffective disorder. 9. Acute on chronic systolic heart failure. 9. Non-ST segment elevation myocardial infarction. 10. Cardiomyopathy, ejection fraction on 11/2019 revealed EF of 45%. 11. Atrial fibrillation with V paced, currently underlying sinus rhythm. 12. Hyperlipidemia. 13. Hypothyroidism. 14. Fever, rule out bacteremia. 15. Sepsis.resolved 16. JACKIE Plan . PLAN: Extubated on , N/C during the day BIPAP at night avoid sedative medications PRN haldol for agitation Off ABX Follow cardiology recs Follow nephrology recs, worsening renal function HTN per [facility] PT/OT/ST PPN for nutritional support, Failed swallow study DVT/GI PPX D/W MERRY MARTIN MD Nov 11, 2020 10:15
[2020-11-11] MEDS: SODIUM BICARBONATE VIAL 50 MEQ in IV 1/2 NORMAL SALINE 1,000 ML IV SCH ×2 (10:34→22:28)
[2020-11-11 11:00] VITALS: BP 155/69
--- NOTE | 2020-11-11 11:53 | PDOC ---
[facility] PROGRESS NOTE Date of Service DOS: DATE: 11/11/20 TIME: 11:51 Chief Complaint Chief Complaint COVID Positive Acute hypoxemic hypercapnic respiratory failure Acute on chronic heart failure Blood cultures positive Heart failure PMH NE AICD in UTI Hypocalcemia Hypertriglyceridemia Anemia Low platelets Hypoglycemia (43) Elevated Cr Hyperkalemia History of Present Illness History of Present Illness 10/31 Patient seen and examined in ICU Patient sedated with propofol Possible COVID - pending under investigation Discussed with RN Chart reviewed Blood culture positive Vent settings as follows AC/18/450/40 11/01 Patient is COVID positive Patient seen and examined in ICU Patient sedated with propofol Discussed with RN Discussed with [employer] Interest Calculator Clerk Chart reviewed Blood cultures are positive 11/02 Patient is COVID positive Patient seen and examined in ICU Propofol IV Discussed with RN Chart Reviewed Blood cultures positive 11/03/2020 Patient resting w/ NAD on Bipap Patient is COVID positive Patient seen and examined in ICU Propofol IV Discussed with RN Chart Reviewed Blood cultures positive 11/04/2020 Patient seen and evaluated. Tachypneic, afebrile. Still breathing on BiPAP. Continue IV Zosyn, positive blood cultures most likely contaminant. Continue diuresis. She is on Levophed and Precedex. Still with some agitation. CT chest pending to evaluate possible thoracentesis. Total time spent 35 minutes, >50% time spent reviewing charts, reviewing labs, discussing with RN and criminal justice social worker. 11/05/2020 Patient seen and evaluated. She is still intermittently requiring BiPAP. Afebrile, tachypneic, tachycardic. Sedated with Haldol. CT chest yesterday showing trace bilateral pleural effusion, no drainable fluid collection. Continue COVID-19 treatment with steroids and supportive care. 11/06/2020 Patient seen and evaluated, status post extubation 10/31. Afebrile, tachycard ic. She is breathing intermittently on BiPAP, currently on 2 L nasal cannula. States she is hungry, swallow eval pending. Continue steroids and antibiotics, per ID. Continue diuresis. 11/07/2020 Patient seen evaluate bedside. Status post extubation on 1217. Rising creatinine of 3.3. Pending nephrology evaluation.> 50% time spent in patient chart, labs, and imaging review and in discussion with RN and SW 11/08/2020 Patient seen and examined bedside. No acute events overnight. Saturating 96% on 4 L nasal cannula during the day and tolerating 35% on BiPAP. Passed speech swallow study and is currently on a dysphagia diet. Augmentin discontinued today per ID.> 50% time spent in patient chart, labs, and imaging review and in discussion with RN and MADDIE 11/09/2020 No acute events overnight. Patient is afebrile. Patient seen and examined bedside. Is somewhat more confused and agitated today mainly due to incontinence to stool. Rectal tube has been removed Hutchins is intact. Will encourage thickened liquids of 240 cc every 6 hours mainly due to JACKIE and worsening potassium. Will defer the rest of the management to nephrology for improving renal function.> 50% time spent in patient chart, labs, and imaging review and in discussion with RN and MADDIE 11/10/2020 Patient given 2 mg IV Ativan last night and subsequently placed on BiPAP. Will change dose to 0.5 p.o. Ativan and see if we can wean off BiPAP and put back on nasal cannula. Patient's chart, labs, images were reviewed and discussed with RN 11/11/2020 No acute events overnight. Patient tolerated BiPAP at night. Currently saturating 94% on 5 L nasal cannula. Elevating potassium levels. Sodium bicarb started. Patient's chart, labs, images were reviewed and discussed with RN Vitals/I&O Vitals/I&O: Vital Signs Date Time Temp Pulse Resp B/P (MAP) Pulse Ox O2 Delivery O2 Flow Rate FiO2 11/11/20 11:00 128 165/76 11/11/20 03:00 20 94 Nasal Cannula 5.0 11/10/20 23:00 98.1 98.1 I & O 11/10/20 11/10/20 11/11/20 15:00 23:00 07:00 Output Total 200 ml 400 ml Balance -200 ml -400 ml Physical Exam Physical Exam: GENERAL: Alert awake female HEENT: Both pupils are round and reacting. No conjunctival lesion. No lesion in the mouth. NECK: Supple, no JVP, no lymphadenopathy. LUNGS: Clear. HEART: S1, S2 regular. ABDOMEN: Soft bowel sounds present nontender nondistended Fecal tube present EXTREMITIES: No edema or cyanosis. SKIN: Unremarkable. NEUROLOGIC: Alert awake General: Alert, Cooperative, No acute distress Heart: Regular rate Abdomen: Normal bowel sounds Extremities: No clubbing Skin: No breakdown Labs Labs: Laboratory Tests Test 11/10/20 18:18 11/11/20 09:20 Glucose (Fingerstick) 140 mg/dL (70-99) 64 mg/dL (70-99) Assessment and Plan Assessmemt and Plan Problems Medical Problems: (1) AMS (altered mental status) Status: Acute (2) Hypercapnia Status: Acute (3) Person under investigation for COVID-19 Status: Acute (4) Respiratory failure Status: Acute (5) UTI (urinary tract infection) Status: Acute Comment Review of Relevant I have reviewed the following items lucas (where applicable) has been applied. Medications: Current Medications Medications (Trade) Dose Ordered Sig/Eber Route PRN Reason Start Time Stop Time Status Last Admin Dose Admin Sodium Polystyrene Sulfonate (Kayexalate) 15 gm 1X ONCE PO 11/10/20 19:00 11/10/20 19:01 DC 11/10/20 18:11 Justifications for Admission Other Justification SARAVANAN VINCENT MD Nov 11, 2020 11:53
--- NOTE | 2020-11-11 12:06 | PDOC ---
DATE OF SERVICE DATE: 11/11/20 TIME: 12:00 SUBJECTIVE ROS extubated on 10/31 on 5 liters N/C, restless today no other concerns from nursing OBJECTIVE Vital Signs Vital Signs Date Time Temp Pulse Resp B/P (MAP) Pulse Ox O2 Delivery O2 Flow Rate FiO2 11/11/20 11:00 128 165/76 11/11/20 03:00 20 94 Nasal Cannula 5.0 11/10/20 23:00 98.1 98.1 I & 0 Intake and Output 11/11/20 07:00 Output Total 600 ml Balance -600 ml Output Urine Total 600 ml # Bowel Movements 6 PHYSICAL EXAM Physical Exam General Appearance: no apparent distress Skin: warm Respiratory: decreased breath sounds Heart: S1S2 Abdomen: soft, bowel sounds present Genitourinary: bladder flat Extremities: pulses present Neurology: alert, oriented, follow commands Musculoskeletal: Osteoarthritis, Other DIAGNOSIS/ASSESSMENT Assessment & Plan JACKIE-ATN- Labs pending Supportive care , strict I/O Avoid nephrotoxins, Ibuprofen listed in her hospital med list CKD stage 2/3 [id number] CM WITH EF OF 45% COVID 19 INFECTION RESP FAILURE SCHIZOPHRENIA UTI KLEBSIELLA-CLEARING COMMENT/RELEVANT DATA Meds Current Medications Medications (Trade) Dose Ordered Sig/Eber Start Time Stop Time Status Last Admin Dose Admin Acetaminophen (Tylenol Supp) 650 mg PRN Q6HRS PRN 11/02/20 00:00 11/02/20 07:27 650 MG Acetaminophen (Tylenol) 650 mg Q6HRS 10/31/20 12:00 11/11/20 05:29 650 MG Albuterol Sulfate (Ventolin Hfa) 1 puff PRN Q6HRS PRN 11/04/20 13:45 11/04/20 13:50 1 PUFF Albuterol Sulfate (Ventolin Neb Soln) 2.5 mg PRN Q6HRS PRN 11/03/20 06:00 Albuterol/ Ipratropium (Duoneb) 3 ml PRN Q4HRS PRN 11/02/20 07:00 11/02/20 07:03 DC Amino Acids/ Glycerin/ Electrolytes 1,000 ml @ 100 mls/hr Q10H 11/01/20 13:30 11/09/20 14:40 DC 11/09/20 08:28 100 MLS/HR Amoxicillin/ Clavulanate Potassium (Augmentin 500/ 125mg) 1 tab BID 11/07/20 10:00 11/08/20 10:45 DC 11/08/20 09:14 1 TAB Aspirin (Aspirin Chewable) 81 mg DAILYWBKFT 10/31/20 08:00 11/11/20 09:12 81 MG Atorvastatin Calcium (Lipitor) 10 mg HS 10/31/20 21:00 11/10/20 21:23 10 MG Atropine Sulfate (ATROPINE 0.5mg SYRINGE) 0.5 mg PRN Q5MIN PRN 11/03/20 12:00 Budesonide (Pulmicort) 0.5 mg RTBID 10/31/20 20:00 11/01/20 13:52 DC Bupropion HCl (Wellbutrin Xl) 150 mg DAILY 10/31/20 12:00 11/11/20 09:12 150 MG Calcium Carbonate/ Glycine (Oscal) 500 mg Q4HRS 10/31/20 12:00 11/11/20 09:14 500 MG Carvedilol (Coreg) 12.5 mg BIDWMEALS 10/31/20 17:00 11/03/20 11:10 DC 11/01/20 08:43 12.5 MG Cetirizine HCl (ZyrTEC) 10 mg DAILY 11/01/20 09:00 11/11/20 09:14 10 MG Clonazepam (KlonoPIN) 0.5 mg BID 10/31/20 12:00 11/11/20 09:00 0.5 MG Clonidine HCl (Catapres) 0.2 mg TID 10/31/20 12:00 11/11/20 09:14 0.2 MG Dexamethasone Sodium Phosphate (Decadron) 6 mg DAILY 11/05/20 09:00 11/11/20 10:17 DC 11/11/20 09:15 6 MG Dexmedetomidine HCl 400 mcg/ Sodium Chloride 100 ml @ 0 mls/hr CONT PRN 11/03/20 12:00 11/04/20 05:42 22.1 MLS/HR Dextrose (Dextrose 50%-Water Syringe) 25 gm 1X ONCE 11/10/20 06:30 11/10/20 06:31 DC 11/10/20 07:42 25 GM Dicyclomine HCl (Bentyl) 20 mg TID 10/31/20 14:00 11/11/20 09:12 20 MG Diphenoxylate HCl/ Atropine (Lomotil) 1 tab TID 10/31/20 14:00 11/10/20 21:00 1 TAB Doxycycline Hyclate (Vibra-Tab) 100 mg BID 11/05/20 09:00 11/05/20 09:43 DC Enoxaparin Sodium (Lovenox 120mg Syringe) 110 mg 1X ONCE 10/30/20 06:15 10/30/20 06:16 DC 10/30/20 06:27 110 MG Etomidate (Amidate) 20 mg STK-MED ONCE 10/30/20 10:43 10/30/20 10:43 DC Famotidine (Pepcid) 20 mg HS 10/31/20 21:00 11/10/20 21:23 20 MG Fentanyl Citrate (Fentanyl 2ml Vial) 50 mcg PRN Q2HR PRN 10/31/20 07:45 10/31/20 20:08 50 MCG Folic Acid (Folic Acid) 0.5 mg DAILY 10/31/20 12:00 11/11/20 09:14 0.5 MG Furosemide (Lasix) 40 mg DAILY 11/03/20 12:00 11/06/20 11:34 DC 11/05/20 10:27 40 MG Gabapentin (Neurontin) 100 mg TID 10/31/20 14:00 11/11/20 09:14 100 MG Glycerin/ Hypromellose/ Polyethylene (Artificial Tears) 2 drop Q4HRS 10/31/20 16:00 11/11/20 08:00 2 DROP Guaifenesin (Robitussin) 200 mg PRN Q4HRS PRN 10/31/20 12:45 11/10/20 21:24 200 MG Haloperidol Lactate (Haldol Inj) 5 mg PRN Q6HRS PRN 11/02/20 11:00 11/10/20 23:40 5 MG Heparin Sodium (Porcine) (Heparin Sodium) 5,000 unit Q8HRS 10/30/20 22:00 11/11/20 05:28 5,000 UNIT Ibuprofen (Motrin) 400 mg PRN Q6HRS PRN 10/31/20 11:15 Insulin Human Lispro (HumaLOG) 10 units 1X ONCE 11/09/20 15:00 11/09/20 14:56 DC Insulin Human Regular (HumuLIN R VIAL) 10 unit 1X ONCE 11/10/20 06:30 11/10/20 06:31 DC 11/10/20 07:43 10 UNIT Labetalol HCl (Normodyne Iv Push) 20 mg PRN Q2HR PRN 11/02/20 11:30 11/03/20 00:56 20 MG Lactobacillus Rhamnosus (Culturelle) 1 cap BID 10/31/20 12:00 11/11/20 09:13 1 CAP Levothyroxine Sodium (Synthroid) 112 mcg DAILY06 11/01/20 09:00 11/11/20 05:29 112 MCG Loperamide HCl (Imodium) 2 mg PRN DAILY PRN 10/31/20 11:15 11/07/20 09:53 2 MG Lorazepam (Ativan Inj) 0.5 mg PRN Q4HRS PRN 11/10/20 09:15 11/11/20 11:01 0.5 MG Lorazepam (Ativan) 0.5 mg PRN Q8HRS PRN 10/31/20 11:15 11/10/20 14:03 0.5 MG Magnesium Oxide (Magnesium Oxide) 400 mg DAILY 10/31/20 12:00 11/11/20 09:14 400 MG Metformin HCl (Glucophage) 250 mg BIDWMEALS 10/31/20 17:00 11/08/20 08:58 DC 11/07/20 17:25 250 MG Metoprolol Tartrate (Lopressor Vial) 5 mg Q6HRS 11/05/20 08:15 11/11/20 11:00 5 MG Midazolam HCl 100 mg/Sodium Chloride 100 ml @ 0 mls/hr ONCE ONCE 10/30/20 06:45 10/30/20 06:46 DC 10/30/20 07:10 1 MLS/HR Multivitamins (Thera M Plus) 1 tab DAILY 10/31/20 12:30 11/11/20 09:00 1 TAB Non-Formulary Medication (Fluticasone/ Salmeterol (Advair 500-50 Diskus)) 1 puff BID 10/31/20 21:00 UNV Non-Formulary Medication (Peg 400/ Hypromellose/ Glycerin (Artificial Tears Drops)) 1 drop QID 10/31/20 13:00 UNV Non-Formulary Medication (Polyvinyl Alcohol (Tears Again)) 2 drop Q4HRS 10/31/20 12:00 UNV Non-Formulary Medication (Risperidone ) 0.5 mg DAILY 11/01/20 09:00 UNV Norepinephrine Bitartrate 8 mg/ Dextrose 258 ml @ 17.202 mls/ hr CONT PRN 11/03/20 13:45 11/11/20 10:17 DC 11/04/20 05:54 8.3 MLS/HR Nystatin (Nystop) 1 luis PRN BID PRN 10/31/20 11:15 Ondansetron HCl (Zofran Odt) 4 mg PRN Q8HRS PRN 10/31/20 12:30 Ondansetron HCl (Zofran) 4 mg PRN Q8HRS PRN 10/30/20 06:00 10/31/20 05:59 DC Piperacillin Sod/ Tazobactam Sod (Zosyn Per Pharmacy) 1 each PRN DAILY PRN 10/30/20 06:00 11/06/20 11:03 DC Piperacillin Sod/ Tazobactam Sod 3.375 gm/Sodium Chloride 50 ml @ 100 mls/hr Q6HRS 11/05/20 12:00 11/06/20 09:15 DC 11/06/20 00:04 100 MLS/HR Piperacillin Sod/ Tazobactam Sod 4.5 gm/Sodium Chloride 100 ml @ 200 mls/hr Q6HRS 10/30/20 12:00 11/04/20 09:59 DC 11/04/20 05:10 200 MLS/HR Polyethylene Glycol (miraLAX PACKET) 17 gm PRN DAILY PRN 11/09/20 10:30 Potassium Bicarbonate (Potassium Effervescent Tablet) 80 meq 1X ONCE 10/31/20 09:45 10/31/20 09:46 DC 10/31/20 13:20 80 MEQ Potassium Chloride (Klor-Con) 10 meq DAILYWBKFT 11/02/20 08:00 11/08/20 14:35 DC 11/07/20 09:08 10 MEQ Propofol 100 ml @ 3.408 mls/ hr CONT PRN 10/30/20 09:00 10/31/20 12:07 3.408 MLS/HR Risperidone (RisperDAL) 1 mg QHS 10/31/20 21:00 11/10/20 21:23 1 MG Ropinirole HCl (Requip) 2 mg DAILY 11/01/20 09:00 11/11/20 09:13 2 MG Simethicone (Gas-X) 160 mg PRN Q2HR PRN 10/31/20 12:00 11/06/20 17:23 160 MG Sodium Bicarbonate 50 meq/Sodium Chloride 1,050 ml @ 100 mls/hr [id number] 11/09/20 16:00 11/11/20 10:34 100 MLS/HR Sodium Polystyrene Sulfonate (Kayexalate) 15 gm 1X ONCE 11/10/20 19:00 11/10/20 19:01 DC 11/10/20 18:11 15 GM Sodium Bicarbonate (Sodium Bicarb Adult 8.4% Syr) 50 meq 1X ONCE 11/10/20 06:30 11/10/20 06:31 DC 11/10/20 07:41 50 MEQ Sodium Chloride 1,000 ml @ 125 mls/hr Q8H 11/06/20 16:30 11/07/20 10:52 DC 11/06/20 23:41 125 MLS/HR Succinylcholine Chloride (Anectine) 200 mg STK-MED ONCE 10/30/20 10:43 10/30/20 10:44 DC Tramadol HCl (Ultram) 50 mg PRN Q6HRS PRN 10/31/20 11:15 Vancomycin HCl (Vanco Per Pharmacy) 1 each PRN DAILY PRN 10/30/20 11:00 10/31/20 11:11 DC 10/31/20 09:51 1 EACH Vancomycin HCl (Vancomycin Trough Level) 1 each 1X ONCE 11/01/20 12:30 10/31/20 13:36 DC Vancomycin HCl 1.75 gm/Sodium Chloride 500 ml @ 250 mls/hr Q24H 10/31/20 13:00 10/31/20 11:11 DC Vitamin B Complex (Dustin B) 1 tab DAILY 10/31/20 12:00 11/11/20 09:13 1 TAB Ziprasidone (Geodon Im) 10 mg PRN QHS PRN 11/09/20 22:45 Lab Laboratory Tests Test 11/10/20 18:18 11/11/20 09:20 Glucose (Fingerstick) 140 mg/dL (70-99) 64 mg/dL (70-99) Results All relevant outside records, renal labs, imaging studies, telemetry/EKG's were reviewed. Justicifation of Admission Dx: Justifications for Admission: Justification of Admission Dx: Yes SARAHI SORENSEN MD Nov 11, 2020 12:06
--- NOTE | 2020-11-11 12:42 | NUR ---
SW following. Discussed with RN, pt from [facility], 5L oxygen, dysphagia I, COVID-19 positive. Pt quite confused today. Pt will return to [facility] when medically stable. SW will continue to follow.
[2020-11-11 13:16] LABS: CALCIUM 8.6 mg/dL (8.5-10.1); CREATININE 2.6 mg/dL (0.6-1.0); GFR 22.8
[2020-11-11 15:00] VITALS: BP 162/85
--- NOTE | 2020-11-11 15:58 | PDOC ---
PROGRESS NOTES Date of Service: DATE: 11/11/20 TIME: 15:58 Objective Objective Vital Signs Date Time Temp Pulse Resp B/P (MAP) Pulse Ox O2 Delivery O2 Flow Rate FiO2 11/11/20 15:00 98.0 89 20 162/85 (110) 93 Nasal Cannula 3.0 98.0 Intake and Output 11/11/20 07:00 Output Total 600 ml Balance -600 ml Output Urine Total 600 ml # Bowel Movements 6 Physical Exam Abdomen: Normal bowel sounds Heart: Regular rate Extremities: No clubbing General: Alert, Cooperative, No acute distress HEENT: PERRLA Lungs: Clear to auscultation, Normal air movement MUSCULOSKELETAL: No deformity, No swelling Neuro: Other (CONFUSED, NO ASYMETRY) Psych/Mental Status: Other (FLAT CONFUSED AFFECT) Skin: No breakdown Assessment Assessment Problems Medical Problems: (1) AMS (altered mental status) Status: Acute (2) Hypercapnia Status: Acute (3) Person under investigation for COVID-19 Status: Acute (4) Respiratory failure Status: Acute (5) UTI (urinary tract infection) Status: Acute Plan Plan of Care Problems Medical Problems: (1) AMS (altered mental status) Status: Acute (2) Hypercapnia Status: Acute (3) Person under investigation for COVID-19 Status: Acute (4) Respiratory failure Status: Acute (5) UTI (urinary tract infection) Status: Acute Comment Review of Relevant I have reviewed the following items lucas (where applicable) has been applied. Labs Laboratory Tests Test 11/10/20 18:18 11/11/20 09:20 11/11/20 12:45 11/11/20 12:55 Glucose (Fingerstick) 140 mg/dL (70-99) 64 mg/dL (70-99) 111 mg/dL (70-99) Sodium Level 140 mmol/L (136-145) Potassium Level 5.0 mmol/L (3.5-5.1) Chloride Level 103 mmol/L (98-107) Carbon Dioxide Level 35 mmol/L (21-32) Anion Gap 2 (6-14) Blood Urea Nitrogen 54 mg/dL (7-20) Creatinine 2.6 mg/dL (0.6-1.0) Estimated GFR (Cockcroft-Gault) 22.8 Glucose Level 111 mg/dL (70-99) Calcium Level 8.6 mg/dL (8.5-10.1) Microbiology 10/30/20 Blood Culture - Final, Complete 10/30/20 Urine Culture - Final, Complete 10/30/20 Antimicrobic Susceptibility - Final, Complete Medications Current Medications Sodium Polystyrene Sulfonate (Kayexalate) 15 gm 1X ONCE PO Last administered on 11/10/20at 18:11; Start 11/10/20 at 19:00; Stop 11/10/20 at 19:01; Status DC Vitals/I & O Vital Sign - Last 24 Hours 11/10/20 11/10/20 11/10/20 11/10/20 15:59 18:11 19:00 20:00 Temp 96.6 98.1 96.6 98.1 Pulse 100 100 96 Resp 21 B/P (MAP) 180/90 (120) 180/90 185/96 (125) Pulse Ox 97 94 O2 Delivery Nasal Cannula Nasal Cannula Nasal Cannula O2 Flow Rate 5.0 5.0 3.0 11/10/20 11/10/20 11/10/20 11/11/20 20:44 21:24 23:00 00:32 Temp 98.1 98.1 Pulse 96 88 96 Resp 21 B/P (MAP) 185/96 165/88 (113) 185/96 Pulse Ox 86 94 O2 Delivery Room Air Nasal Cannula O2 Flow Rate 5.0 11/11/20 11/11/20 11/11/20 11/11/20 03:00 05:27 07:00 08:00 Temp 98.1 98.1 Pulse 92 92 118 Resp 20 B/P (MAP) 187/78 (114) 187/78 176/89 (118) Pulse Ox 94 94 O2 Delivery Nasal Cannula Nasal Cannula Nasal Cannula O2 Flow Rate 5.0 3.0 3.0 11/11/20 11/11/20 11/11/20 11/11/20 08:00 09:14 11:00 11:00 Temp 97.8 97.8 Pulse 128 128 128 Resp 20 B/P (MAP) 178/76 165/76 155/69 (97) Pulse Ox 93 O2 Delivery Nasal Cannula O2 Flow Rate 3.0 3.0 11/11/20 11/11/20 12:40 15:00 Temp 98.0 98.0 Pulse 128 89 Resp 20 B/P (MAP) 165/76 162/85 (110) Pulse Ox 93 O2 Delivery Nasal Cannula O2 Flow Rate 3.0 Intake and Output 11/10/20 11/10/20 11/11/20 15:00 23:00 07:00 Output Total 200 ml 400 ml Balance -200 ml -400 ml RADHA SWAN MD Nov 11, 2020 15:58
--- NOTE | 2020-11-11 16:05 | PDOC ---
[facility] 11/11/20 1605: CARDIO Progress Notes Date and Time Date of Service 11/11/20 Time of Evaluation 1115 Subjective Subjective: Other (sleeping ) Vitals Vitals Vital Signs Date Time Temp Pulse Resp B/P (MAP) Pulse Ox O2 Delivery O2 Flow Rate FiO2 11/11/20 15:00 98.0 89 20 162/85 (110) 93 Nasal Cannula 3.0 98.0 Weight Weight [ ] Input and Output Intake and Output Intake and Output 11/11/20 07:00 Output Total 600 ml Balance -600 ml Output Urine Total 600 ml # Bowel Movements 6 Laboratory Labs Laboratory Tests Test 11/10/20 18:18 11/11/20 09:20 11/11/20 12:45 11/11/20 12:55 Glucose (Fingerstick) 140 mg/dL (70-99) 64 mg/dL (70-99) 111 mg/dL (70-99) Sodium Level 140 mmol/L (136-145) Potassium Level 5.0 mmol/L (3.5-5.1) Chloride Level 103 mmol/L (98-107) Carbon Dioxide Level 35 mmol/L (21-32) Anion Gap 2 (6-14) Blood Urea Nitrogen 54 mg/dL (7-20) Creatinine 2.6 mg/dL (0.6-1.0) Estimated GFR (Cockcroft-Gault) 22.8 Glucose Level 111 mg/dL (70-99) Calcium Level 8.6 mg/dL (8.5-10.1) Microbiology Micro Microbiology 10/30/20 Blood Culture - Final, Complete 10/30/20 Urine Culture - Final, Complete 10/30/20 Antimicrobic Susceptibility - Final, Complete Review of Systems Constitutional: yes: other (CONFUSED BUT LESS SO) Physical Exam HEENT: Neck Supple W Full Motion Chest: Symmetric LUNGS: Other (on 2L NC ) Heart: RRR (V paced wtih underling SR ) Abdomen: Other (nondistended ) Extremities: Other (trace bilateral LE edema ) Neurology: other (sleeping, RN reports intermittent confusion ) Assessment Assessment 1. Acute respiratory failure requiting intubation with a/c CHF and Covid PNA: s/p extubation, on NC 2. Acute on chronic systolic CHF: appears better compensated 3. NSTEMI: Most probable type II, demand ischemia. 4. Cardiomyopathy: prior EF at 45%. 5. PAFIB. Presently V paced with underling SR 6. Hypertension; controlled 7. Hyperlipidemia; statin. 8. Diabetes, II 9. Hypothyroidism; on replacement 10. Encephalopathy with underlying anxiety, depression, schizoaffective disorder. 11. JACKIE, hyperkalemia, nephrology following. Recommendations Metoprolol for rate control; convert to long-acting given CMP No ACEi/ARB with JACKIE ASA, statin. Secondary prevention Echo outpt when recovered from COVID Ongoing lung optimization Plan outpatient ischemic evaluation Supportive care Justicifation of Admission Dx: Justifications for Admission: Justification of Admission Dx: Yes RADHA SWAN MD 11/11/20 1608: CARDIO Progress Notes Assessment Assessment Agree with CORPORATE SECRETARY's assessment and plan. Patient continues to be confused. Acute on chronic systolic heart failure better compensated. Non-STEMI most probably demand ischemia. Plan outpatient ischemic evaluation. PAF, currently atrial sensed ventricular paced rhythm on telemetry. Nephrology following for acute renal insufficiency and hyperkalemia. MATY ROJAS APRN Nov 11, 2020 16:05 RADHA SWAN MD Nov 11, 2020 16:08
[2020-11-11] MEDS ORDERED: METOPROLOL IV PUSH 5 MG/5 ML VIAL. IVP PRN (16:15)
[2020-11-11 19:45] VITALS: BP 170/93
[2020-11-11] MEDS: ATORVASTATIN CALCIUM 10 MG TABLET. PO SCH (21:38)
[2020-11-11] MEDS: risperiDONE 1 MG TABLET. PO SCH (21:39)
[2020-11-11] MEDS: FAMOTIDINE 20 MG TABLET. PO SCH (21:39)
[2020-11-11 23:20] VITALS: BP 153/77
[2020-11-12] MEDS: CALCIUM CARBONATE 500 MG TABLET PO SCH ×6 (00:14→21:31)
[2020-11-12 03:00] VITALS: BP 183/115
[2020-11-12] MEDS: POLYVINYL ALCOHOL 1.4% OPHTH SOLUTION 15ML BOTTLE. OU SCH ×6 (03:54→20:00)
[2020-11-12] MEDS: LEVOTHYROXINE 112 MCG TABLET PO SCH (05:23)
[2020-11-12] MEDS: ACETAMINOPHEN 325 MG TABLET. PO SCH ×3 (05:24→17:41)
[2020-11-12] MEDS: LABETALOL 20 MG/4 ML DISP.SYRIN. IVP PRN (05:24)
[2020-11-12] MEDS: HEPARIN for SUB-Q USE 5,000 UNIT/ML VIAL. SQ SCH ×3 (06:00→21:33)
--- NOTE | 2020-11-12 06:07 | NUR ---
pt. with vaginal bleeding, heparin dose held temporarily this am.
[2020-11-12 06:13] LABS: CALCIUM 8.2 mg/dL (8.5-10.1); CREATININE 2.4 mg/dL (0.6-1.0); POTASSIUM 4.5 mmol/L (3.5-5.1)
[2020-11-12 07:00] VITALS: BP 187/92
[2020-11-12] MEDS: INSULIN LISPRO 300 UNITS/3 ML VIAL. SQ SCH ×3 (08:00→16:53)
[2020-11-12] MEDS: SODIUM BICARBONATE VIAL 50 MEQ in IV 1/2 NORMAL SALINE 1,000 ML IV SCH ×2 (09:41→21:07)
[2020-11-12] MEDS: GABAPENTIN 100 MG CAPSULE. PO SCH ×3 (09:42→21:31)
[2020-11-12] MEDS: ASPIRIN CHEWABLE 81 MG TABLET. PO SCH (09:42)
[2020-11-12] MEDS: METOPROLOL SUCC 24HR ER 100 MG TAB.ER.24H. PO SCH (09:42)
[2020-11-12] MEDS: clonazePAM 0.5 MG TABLET PO SCH ×2 (09:42→21:30)
[2020-11-12] MEDS: FOLIC ACID 1 MG TABLET. PO SCH (09:43)
[2020-11-12] MEDS: MAGNESIUM OXIDE 400 MG TABLET PO SCH (09:43)
[2020-11-12] MEDS: MULTIVITAMIN with MINERAL TABLET. PO SCH (09:43)
[2020-11-12] MEDS: LACTOBACILLUS RHAMNOSUS GG 1 CAPSULE. PO SCH ×2 (09:43→21:31)
[2020-11-12] MEDS: CETIRIZINE HCL 10 MG TABLET. PO SCH (09:43)
[2020-11-12] MEDS: rOPINIRole 1 MG TABLET. PO SCH (09:43)
[2020-11-12] MEDS: buPROPion XL 150 MG TAB.ER.24H. PO SCH (09:43)
[2020-11-12] MEDS: cloNIDine HCL 0.2 MG TABLET PO SCH ×3 (09:43→21:31)
[2020-11-12] MEDS: VITAMIN B COMPLEX TABLET. PO SCH (09:43)
[2020-11-12] MEDS: DIPHENOXYLATE/ATROPINE TABLET. PO SCH ×3 (09:44→21:31)
[2020-11-12] MEDS: DICYCLOMINE HCL 10 MG CAPSULE PO SCH ×3 (09:48→21:30)
[2020-11-12 11:20] VITALS: BP 135/72
--- NOTE | 2020-11-12 11:23 | PDOC ---
DATE OF SERVICE DATE: 11/12/20 TIME: 11:23 SUBJECTIVE ROS Stable, confused OBJECTIVE Vital Signs Vital Signs Date Time Temp Pulse Resp B/P (MAP) Pulse Ox O2 Delivery O2 Flow Rate FiO2 11/12/20 11:20 97.4 85 18 135/72 (93) 96 Nasal Cannula 3.0 97.4 I & 0 Intake and Output 11/12/20 07:00 Intake Total 950 ml Output Total 2410 ml Balance -1460 ml Intake Oral 950 ml Output Urine Total 2410 ml PHYSICAL EXAM Physical Exam General Appearance: no apparent distress HEEN OM moist Skin: no rash Respiratory: decreased breath sounds Heart: S1S2 Abdomen: soft, obese bowel sounds present Genitourinary: Hutchins + Extremities: no edema Neurology: confused DIAGNOSIS/ASSESSMENT Assessment & Plan JACKIE-ATN- improving , Supportive care , strict I/O ,avoid nephrotoxins, CKD stage 2/3 CHF compensated / CM with EF 45% COVID Positive Acute hypoxemic hypercapnic respiratory failure- extubated Blood cultures positive AICD in UTI COMMENT/RELEVANT DATA Meds Current Medications Medications (Trade) Dose Ordered Sig/Eber Start Time Stop Time Status Last Admin Dose Admin Acetaminophen (Tylenol Supp) 650 mg PRN Q6HRS PRN 11/02/20 00:00 11/02/20 07:27 650 MG Acetaminophen (Tylenol) 650 mg Q6HRS 10/31/20 12:00 11/12/20 05:24 650 MG Albuterol Sulfate (Ventolin Hfa) 1 puff PRN Q6HRS PRN 11/04/20 13:45 11/04/20 13:50 1 PUFF Albuterol Sulfate (Ventolin Neb Soln) 2.5 mg PRN Q6HRS PRN 11/03/20 06:00 Albuterol/ Ipratropium (Duoneb) 3 ml PRN Q4HRS PRN 11/02/20 07:00 11/02/20 07:03 DC Amino Acids/ Glycerin/ Electrolytes 1,000 ml @ 100 mls/hr Q10H 11/01/20 13:30 11/09/20 14:40 DC 11/09/20 08:28 100 MLS/HR Amoxicillin/ Clavulanate Potassium (Augmentin 500/ 125mg) 1 tab BID 11/07/20 10:00 11/08/20 10:45 DC 11/08/20 09:14 1 TAB Aspirin (Aspirin Chewable) 81 mg DAILYWBKFT 10/31/20 08:00 11/12/20 09:42 81 MG Atorvastatin Calcium (Lipitor) 10 mg HS 10/31/20 21:00 11/11/20 21:38 10 MG Atropine Sulfate (ATROPINE 0.5mg SYRINGE) 0.5 mg PRN Q5MIN PRN 11/03/20 12:00 Budesonide (Pulmicort) 0.5 mg RTBID 10/31/20 20:00 11/01/20 13:52 DC Bupropion HCl (Wellbutrin Xl) 150 mg DAILY 10/31/20 12:00 11/12/20 09:43 150 MG Calcium Carbonate/ Glycine (Oscal) 500 mg Q4HRS 10/31/20 12:00 11/12/20 09:42 500 MG Carvedilol (Coreg) 12.5 mg BIDWMEALS 10/31/20 17:00 11/03/20 11:10 DC 11/01/20 08:43 12.5 MG Cetirizine HCl (ZyrTEC) 10 mg DAILY 11/01/20 09:00 11/12/20 09:43 10 MG Clonazepam (KlonoPIN) 0.5 mg BID 10/31/20 12:00 11/12/20 09:42 0.5 MG Clonidine HCl (Catapres) 0.2 mg TID 10/31/20 12:00 11/12/20 09:43 0.2 MG Dexamethasone Sodium Phosphate (Decadron) 6 mg DAILY 11/05/20 09:00 11/11/20 10:17 DC 11/11/20 09:15 6 MG Dexmedetomidine HCl 400 mcg/ Sodium Chloride 100 ml @ 0 mls/hr CONT PRN 11/03/20 12:00 11/04/20 05:42 22.1 MLS/HR Dextrose (Dextrose 50%-Water Syringe) 25 gm 1X ONCE 11/10/20 06:30 11/10/20 06:31 DC 11/10/20 07:42 25 GM Dicyclomine HCl (Bentyl) 20 mg TID 10/31/20 14:00 11/12/20 09:48 20 MG Diphenoxylate HCl/ Atropine (Lomotil) 1 tab TID 10/31/20 14:00 11/12/20 09:44 1 TAB Doxycycline Hyclate (Vibra-Tab) 100 mg BID 11/05/20 09:00 11/05/20 09:43 DC Enoxaparin Sodium (Lovenox 120mg Syringe) 110 mg 1X ONCE 10/30/20 06:15 10/30/20 06:16 DC 10/30/20 06:27 110 MG Etomidate (Amidate) 20 mg STK-MED ONCE 10/30/20 10:43 10/30/20 10:43 DC Famotidine (Pepcid) 20 mg HS 10/31/20 21:00 11/11/20 21:39 20 MG Fentanyl Citrate (Fentanyl 2ml Vial) 50 mcg PRN Q2HR PRN 10/31/20 07:45 10/31/20 20:08 50 MCG Folic Acid (Folic Acid) 0.5 mg DAILY 10/31/20 12:00 11/12/20 09:43 0.5 MG Furosemide (Lasix) 40 mg DAILY 11/03/20 12:00 11/06/20 11:34 DC 11/05/20 10:27 40 MG Gabapentin (Neurontin) 100 mg TID 10/31/20 14:00 11/12/20 09:42 100 MG Glycerin/ Hypromellose/ Polyethylene (Artificial Tears) 2 drop Q4HRS 10/31/20 16:00 11/12/20 08:00 2 DROP Guaifenesin (Robitussin) 200 mg PRN Q4HRS PRN 10/31/20 12:45 11/10/20 21:24 200 MG Haloperidol Lactate (Haldol Inj) 5 mg PRN Q6HRS PRN 11/02/20 11:00 11/10/20 23:40 5 MG Heparin Sodium (Porcine) (Heparin Sodium) 5,000 unit Q8HRS 10/30/20 22:00 11/11/20 21:41 5,000 UNIT Ibuprofen (Motrin) 400 mg PRN Q6HRS PRN 10/31/20 11:15 Insulin Human Lispro (HumaLOG) 10 units 1X ONCE 11/09/20 15:00 11/09/20 14:56 DC Insulin Human Regular (HumuLIN R VIAL) 10 unit 1X ONCE 11/10/20 06:30 11/10/20 06:31 DC 11/10/20 07:43 10 UNIT Labetalol HCl (Normodyne Iv Push) 20 mg PRN Q2HR PRN 11/02/20 11:30 11/12/20 05:24 20 MG Lactobacillus Rhamnosus (Culturelle) 1 cap BID 10/31/20 12:00 11/12/20 09:43 1 CAP Levothyroxine Sodium (Synthroid) 112 mcg DAILY06 11/01/20 09:00 11/12/20 05:23 112 MCG Loperamide HCl (Imodium) 2 mg PRN DAILY PRN 10/31/20 11:15 11/07/20 09:53 2 MG Lorazepam (Ativan Inj) 0.5 mg PRN Q4HRS PRN 11/10/20 09:15 11/12/20 03:55 0.5 MG Lorazepam (Ativan) 0.5 mg PRN Q8HRS PRN 10/31/20 11:15 11/10/20 14:03 0.5 MG Magnesium Oxide (Magnesium Oxide) 400 mg DAILY 10/31/20 12:00 11/12/20 09:43 400 MG Metformin HCl (Glucophage) 250 mg BIDWMEALS 10/31/20 17:00 11/08/20 08:58 DC 11/07/20 17:25 250 MG Metoprolol Succinate (Toprol Xl) 100 mg DAILY 11/12/20 09:00 11/12/20 09:42 100 MG Metoprolol Tartrate (Lopressor Vial) 5 mg PRN Q6HRS PRN 11/11/20 16:15 Midazolam HCl 100 mg/Sodium Chloride 100 ml @ 0 mls/hr ONCE ONCE 10/30/20 06:45 10/30/20 06:46 DC 10/30/20 07:10 1 MLS/HR Multivitamins (Thera M Plus) 1 tab DAILY 10/31/20 12:30 11/12/20 09:43 1 TAB Non-Formulary Medication (Fluticasone/ Salmeterol (Advair 500-50 Diskus)) 1 puff BID 10/31/20 21:00 UNV Non-Formulary Medication (Peg 400/ Hypromellose/ Glycerin (Artificial Tears Drops)) 1 drop QID 10/31/20 13:00 UNV Non-Formulary Medication (Polyvinyl Alcohol (Tears Again)) 2 drop Q4HRS 10/31/20 12:00 UNV Non-Formulary Medication (Risperidone ) 0.5 mg DAILY 11/01/20 09:00 UNV Norepinephrine Bitartrate 8 mg/ Dextrose 258 ml @ 17.202 mls/ hr CONT PRN 11/03/20 13:45 11/11/20 10:17 DC 11/04/20 05:54 8.3 MLS/HR Nystatin (Nystop) 1 luis PRN BID PRN 10/31/20 11:15 Ondansetron HCl (Zofran Odt) 4 mg PRN Q8HRS PRN 10/31/20 12:30 Ondansetron HCl (Zofran) 4 mg PRN Q8HRS PRN 10/30/20 06:00 10/31/20 05:59 DC Piperacillin Sod/ Tazobactam Sod (Zosyn Per Pharmacy) 1 each PRN DAILY PRN 10/30/20 06:00 11/06/20 11:03 DC Piperacillin Sod/ Tazobactam Sod 3.375 gm/Sodium Chloride 50 ml @ 100 mls/hr Q6HRS 11/05/20 12:00 11/06/20 09:15 DC 11/06/20 00:04 100 MLS/HR Piperacillin Sod/ Tazobactam Sod 4.5 gm/Sodium Chloride 100 ml @ 200 mls/hr Q6HRS 10/30/20 12:00 11/04/20 09:59 DC 11/04/20 05:10 200 MLS/HR Polyethylene Glycol (miraLAX PACKET) 17 gm PRN DAILY PRN 11/09/20 10:30 Potassium Bicarbonate (Potassium Effervescent Tablet) 80 meq 1X ONCE 10/31/20 09:45 10/31/20 09:46 DC 10/31/20 13:20 80 MEQ Potassium Chloride (Klor-Con) 10 meq DAILYWBKFT 11/02/20 08:00 11/08/20 14:35 DC 11/07/20 09:08 10 MEQ Propofol 100 ml @ 3.408 mls/ hr CONT PRN 10/30/20 09:00 10/31/20 12:07 3.408 MLS/HR Risperidone (RisperDAL) 1 mg QHS 10/31/20 21:00 11/11/20 21:39 1 MG Ropinirole HCl (Requip) 2 mg DAILY 11/01/20 09:00 11/12/20 09:43 2 MG Simethicone (Gas-X) 160 mg PRN Q2HR PRN 10/31/20 12:00 11/06/20 17:23 160 MG Sodium Bicarbonate 50 meq/Sodium Chloride 1,050 ml @ 100 mls/hr [id number] 11/09/20 16:00 11/12/20 09:41 100 MLS/HR Sodium Polystyrene Sulfonate (Kayexalate) 15 gm 1X ONCE 11/10/20 19:00 11/10/20 19:01 DC 11/10/20 18:11 15 GM Sodium Bicarbonate (Sodium Bicarb Adult 8.4% Syr) 50 meq 1X ONCE 11/10/20 06:30 11/10/20 06:31 DC 11/10/20 07:41 50 MEQ Sodium Chloride 1,000 ml @ 125 mls/hr Q8H 11/06/20 16:30 11/07/20 10:52 DC 11/06/20 23:41 125 MLS/HR Succinylcholine Chloride (Anectine) 200 mg STK-MED ONCE 10/30/20 10:43 10/30/20 10:44 DC Tramadol HCl (Ultram) 50 mg PRN Q6HRS PRN 10/31/20 11:15 Vancomycin HCl (Vanco Per Pharmacy) 1 each PRN DAILY PRN 10/30/20 11:00 10/31/20 11:11 DC 10/31/20 09:51 1 EACH Vancomycin HCl (Vancomycin Trough Level) 1 each 1X ONCE 11/01/20 12:30 10/31/20 13:36 DC Vancomycin HCl 1.75 gm/Sodium Chloride 500 ml @ 250 mls/hr Q24H 10/31/20 13:00 10/31/20 11:11 DC Vitamin B Complex (Dustin B) 1 tab DAILY 10/31/20 12:00 11/12/20 09:43 1 TAB Ziprasidone (Geodon Im) 10 mg PRN QHS PRN 11/09/20 22:45 Lab Laboratory Tests Test 11/11/20 12:45 11/11/20 12:55 11/11/20 16:23 11/12/20 05:00 Glucose (Fingerstick) 111 mg/dL (70-99) 152 mg/dL (70-99) Sodium Level 140 mmol/L (136-145) 137 mmol/L (136-145) Potassium Level 5.0 mmol/L (3.5-5.1) 4.5 mmol/L (3.5-5.1) Chloride Level 103 mmol/L (98-107) 102 mmol/L (98-107) Carbon Dioxide Level 35 mmol/L (21-32) 33 mmol/L (21-32) Anion Gap 2 (6-14) 2 (6-14) Blood Urea Nitrogen 54 mg/dL (7-20) 48 mg/dL (7-20) Creatinine 2.6 mg/dL (0.6-1.0) 2.4 mg/dL (0.6-1.0) Estimated GFR (Cockcroft-Gault) 22.8 25.0 Glucose Level 111 mg/dL (70-99) 80 mg/dL (70-99) Calcium Level 8.6 mg/dL (8.5-10.1) 8.2 mg/dL (8.5-10.1) Test 11/12/20 07:59 11/12/20 11:11 Glucose (Fingerstick) 74 mg/dL (70-99) 118 mg/dL (70-99) Results All relevant outside records, renal labs, imaging studies, telemetry/EKG's were reviewed. Justicifation of Admission Dx: Justifications for Admission: Justification of Admission Dx: Yes SARAHI SORENSEN MD Nov 12, 2020 11:23
--- NOTE | 2020-11-12 11:53 | PDOC ---
[employer] PROGRESS NOTE Date of Service DOS: DATE: 11/12/20 TIME: 11:52 Chief Complaint Chief Complaint COVID Positive Acute hypoxemic hypercapnic respiratory failure Acute on chronic heart failure Blood cultures positive Heart failure PMH NH AICD in UTI Hypocalcemia Hypertriglyceridemia Anemia Low platelets Hypoglycemia (43) Elevated Cr Hyperkalemia History of Present Illness History of Present Illness 10/31 Patient seen and examined in ICU Patient sedated with propofol Possible COVID - pending under investigation Discussed with RN Chart reviewed Blood culture positive Vent settings as follows AC/18/450/40 11/01 Patient is COVID positive Patient seen and examined in ICU Patient sedated with propofol Discussed with RN Discussed with Glaze Handler Chart reviewed Blood cultures are positive 11/02 Patient is COVID positive Patient seen and examined in ICU Propofol IV Discussed with RN Chart Reviewed Blood cultures positive 11/03/2020 Patient resting w/ NAD on Bipap Patient is COVID positive Patient seen and examined in ICU Propofol IV Discussed with RN Chart Reviewed Blood cultures positive 11/04/2020 Patient seen and evaluated. Tachypneic, afebrile. Still breathing on BiPAP. Continue IV Zosyn, positive blood cultures most likely contaminant. Continue diuresis. She is on Levophed and Precedex. Still with some agitation. CT chest pending to evaluate possible thoracentesis. Total time spent 35 minutes, >50% time spent reviewing charts, reviewing labs, discussing with RN and executive secretary social welfare. 11/05/2020 Patient seen and evaluated. She is still intermittently requiring BiPAP. Afebrile, tachypneic, tachycardic. Sedated with Haldol. CT chest yesterday showing trace bilateral pleural effusion, no drainable fluid collection. Continue COVID-19 treatment with steroids and supportive care. 11/06/2020 Patient seen and evaluated, status post extubation 10/31. Afebrile, tachycard ic. She is breathing intermittently on BiPAP, currently on 2 L nasal cannula. States she is hungry, swallow eval pending. Continue steroids and antibiotics, per ID. Continue diuresis. 11/07/2020 Patient seen evaluate bedside. Status post extubation on 1217. Rising creatinine of 3.3. Pending nephrology evaluation.> 50% time spent in patient chart, labs, and imaging review and in discussion with RN and SW 11/08/2020 Patient seen and examined bedside. No acute events overnight. Saturating 96% on 4 L nasal cannula during the day and tolerating 35% on BiPAP. Passed speech swallow study and is currently on a dysphagia diet. Augmentin discontinued today per ID.> 50% time spent in patient chart, labs, and imaging review and in discussion with RN and MADDIE 11/09/2020 No acute events overnight. Patient is afebrile. Patient seen and examined bedside. Is somewhat more confused and agitated today mainly due to incontinence to stool. Rectal tube has been removed Hutchins is intact. Will encourage thickened liquids of 240 cc every 6 hours mainly due to JACKIE and worsening potassium. Will defer the rest of the management to nephrology for improving renal function.> 50% time spent in patient chart, labs, and imaging review and in discussion with RN and MADDIE 11/10/2020 Patient given 2 mg IV Ativan last night and subsequently placed on BiPAP. Will change dose to 0.5 p.o. Ativan and see if we can wean off BiPAP and put back on nasal cannula. Patient's chart, labs, images were reviewed and discussed with RN 11/11/2020 No acute events overnight. Patient tolerated BiPAP at night. Currently saturating 94% on 5 L nasal cannula. Elevating potassium levels. Sodium bicarb started. Patient's chart, labs, images were reviewed and discussed with RN 11/12/2020 No acute events overnight. Patient's drowsy this morning but saturating 95% on 3 L nasal cannula. Cannulated patient had some vaginal bleeding and the heparin was held this morning. Discussion with the RN states that her Hutchins might have been tugged causing that episode of bleeding. However patient has not been bleeding this morning and Hutchins and rectal tube was not placed. Patient's ney t, labs, images were reviewed and discussed with RN Vitals/I&O Vitals/I&O: Vital Signs Date Time Temp Pulse Resp B/P (MAP) Pulse Ox O2 Delivery O2 Flow Rate FiO2 11/12/20 11:20 97.4 85 18 135/72 (93) 96 Nasal Cannula 3.0 97.4 I & O 11/11/20 11/11/20 11/12/20 14:59 22:59 06:59 Intake Total 550 ml 400 ml Output Total 600 ml 410 ml 1400 ml Balance -50 ml -10 ml -1400 ml Physical Exam Physical Exam: GENERAL: Alert awake female HEENT: Both pupils are round and reacting. No conjunctival lesion. No lesion in the mouth. NECK: Supple, no JVP, no lymphadenopathy. LUNGS: Clear. HEART: S1, S2 regular. ABDOMEN: Soft bowel sounds present nontender nondistended Fecal tube present EXTREMITIES: No edema or cyanosis. SKIN: Unremarkable. NEUROLOGIC: Alert awake General: Alert, Cooperative, No acute distress Heart: Regular rate Abdomen: Normal bowel sounds Extremities: No clubbing Skin: No breakdown Labs Labs: Laboratory Tests Test 11/11/20 12:45 11/11/20 12:55 11/11/20 16:23 11/12/20 05:00 Glucose (Fingerstick) 111 mg/dL (70-99) 152 mg/dL (70-99) Sodium Level 140 mmol/L (136-145) 137 mmol/L (136-145) Potassium Level 5.0 mmol/L (3.5-5.1) 4.5 mmol/L (3.5-5.1) Chloride Level 103 mmol/L (98-107) 102 mmol/L (98-107) Carbon Dioxide Level 35 mmol/L (21-32) 33 mmol/L (21-32) Anion Gap 2 (6-14) 2 (6-14) Blood Urea Nitrogen 54 mg/dL (7-20) 48 mg/dL (7-20) Creatinine 2.6 mg/dL (0.6-1.0) 2.4 mg/dL (0.6-1.0) Estimated GFR (Cockcroft-Gault) 22.8 25.0 Glucose Level 111 mg/dL (70-99) 80 mg/dL (70-99) Calcium Level 8.6 mg/dL (8.5-10.1) 8.2 mg/dL (8.5-10.1) Test 11/12/20 07:59 11/12/20 11:11 Glucose (Fingerstick) 74 mg/dL (70-99) 118 mg/dL (70-99) Assessment and Plan Assessmemt and Plan Problems Medical Problems: (1) AMS (altered mental status) Status: Acute (2) Hypercapnia Status: Acute (3) Person under investigation for COVID-19 Status: Acute (4) Respiratory failure Status: Acute (5) UTI (urinary tract infection) Status: Acute Comment Review of Relevant I have reviewed the following items lucas (where applicable) has been applied. Medications: Current Medications Medications (Trade) Dose Ordered Sig/Eber Route PRN Reason Start Time Stop Time Status Last Admin Dose Admin Metoprolol Succinate (Toprol Xl) 100 mg DAILY PO 11/12/20 09:00 11/12/20 09:42 Justifications for Admission Other Justification SARAVANAN VINCENT MD Nov 12, 2020 11:53
--- NOTE | 2020-11-12 12:23 | NUR ---
SS following up with discharge planning. SS reviewed pt chart and discussed with pt RN. Pt is currently requiring oxygen. COVID19 test positive. Nephrology following. PT/OT recommending senior care unit. Pt is LT resident from [facility], ; fax [phone], and is able to return when medically stable for discharge. SS will continue to follow for discharge planning.
[2020-11-12 15:00] VITALS: BP 118/68
--- NOTE | 2020-11-12 16:02 | PDOC ---
PULMONARY PROGRESS NOTES DATE: 11/12/20 TIME: 16:01 Subjective extubated on 10/31 on 3liters N/C reported vaginal/mills bleeding no other concerns from nursing Vitals Vital Signs Date Time Temp Pulse Resp B/P (MAP) Pulse Ox O2 Delivery O2 Flow Rate FiO2 11/12/20 15:00 97.8 75 20 118/68 (85) 98 Nasal Cannula 3.0 97.8 Comments visual exam done due to COVID-19 pandemic RRR Restless N/C No edema ROS: No Nausea, No Chest Pain, No Abdominal Pain, No Increase Cough Labs Laboratory Tests Test 11/10/20 18:18 11/11/20 09:20 11/11/20 12:45 11/11/20 12:55 Glucose (Fingerstick) 140 mg/dL (70-99) 64 mg/dL (70-99) 111 mg/dL (70-99) Sodium Level 140 mmol/L (136-145) Potassium Level 5.0 mmol/L (3.5-5.1) Chloride Level 103 mmol/L (98-107) Carbon Dioxide Level 35 mmol/L (21-32) Anion Gap 2 (6-14) Blood Urea Nitrogen 54 mg/dL (7-20) Creatinine 2.6 mg/dL (0.6-1.0) Estimated GFR (Cockcroft-Gault) 22.8 Glucose Level 111 mg/dL (70-99) Calcium Level 8.6 mg/dL (8.5-10.1) Test 11/11/20 16:23 11/12/20 05:00 11/12/20 07:59 11/12/20 11:11 Glucose (Fingerstick) 152 mg/dL (70-99) 74 mg/dL (70-99) 118 mg/dL (70-99) Sodium Level 137 mmol/L (136-145) Potassium Level 4.5 mmol/L (3.5-5.1) Chloride Level 102 mmol/L (98-107) Carbon Dioxide Level 33 mmol/L (21-32) Anion Gap 2 (6-14) Blood Urea Nitrogen 48 mg/dL (7-20) Creatinine 2.4 mg/dL (0.6-1.0) Estimated GFR (Cockcroft-Gault) 25.0 Glucose Level 80 mg/dL (70-99) Calcium Level 8.2 mg/dL (8.5-10.1) Laboratory Tests Test 11/11/20 16:23 11/12/20 05:00 11/12/20 07:59 11/12/20 11:11 Glucose (Fingerstick) 152 mg/dL (70-99) 74 mg/dL (70-99) 118 mg/dL (70-99) Sodium Level 137 mmol/L (136-145) Potassium Level 4.5 mmol/L (3.5-5.1) Chloride Level 102 mmol/L (98-107) Carbon Dioxide Level 33 mmol/L (21-32) Anion Gap 2 (6-14) Blood Urea Nitrogen 48 mg/dL (7-20) Creatinine 2.4 mg/dL (0.6-1.0) Estimated GFR (Cockcroft-Gault) 25.0 Glucose Level 80 mg/dL (70-99) Calcium Level 8.2 mg/dL (8.5-10.1) Medications Active Scripts Medications Dose Route/Sig Max Daily Dose Days Date Category Dose Instructions Lomotil Tablet (Diphenoxylate Hcl/Atropine) 1 Each Tablet 1 Tab PO TID 3 10/28/20 Rx Dicyclomine Hcl 20 Mg Tablet 1 Tab PO TID 10 10/28/20 Rx Zithromax (Azithromycin) 250 Mg Tablet 250 Mg PO DIRECTED 10/28/20 Rx Take 2 PO x 1 days Then take 1 PO q 24 hour for the next 4 days Doxycycline Hyclate 100 Mg Tablet 1 Tab PO BID 3 12/04/19 Rx Culturelle (Lactobacillus Rhamnosus Gg) 1 Each Cap.sprink 1 Cap PO BID 14 12/04/19 Rx Zofran (Ondansetron Hcl) 4 Mg Tablet 4 Mg PO Q8HRS PRN 12/02/19 Reported Tramadol Hcl 50 Mg Tablet 50 Mg PO Q6HRS PRN 12/02/19 Reported Tears Again (Polyvinyl Alcohol) 15 Ml Drops 2 Drop EACHEYE Q4HRS 30 12/02/19 Reported Polyvinyl Alcohol 15 Ml Drops 2 Drop EACHEYE Q4HRS 30 12/02/19 Reported Ropinirole Hcl 1 Mg Tablet 1 Mg PO BID 12/02/19 Reported Pantoprazole Sodium (Pantoprazole Sodium) 40 Mg Tablet.dr 40 Mg PO DAILYAC 12/02/19 Reported B-Complex Plus Vitamin C (B Complex With Vitamin C) 1 Each Tablet 1 Each PO DAILY 12/02/19 Reported Magnesium Oxide 400 Mg Tablet 400 Mg PO DAILY 12/02/19 Reported Loratadine 10 Mg Tablet 10 Mg PO DAILY 12/02/19 Reported Ketotifen Fumarate 5 Ml Drops 1 Drop EACHEYE BID 12/02/19 Reported Humalog (Insulin Lispro) 100 Unit/1 Ml Vial 100 Unit SQ BIDWMEALS 12/02/19 Reported 70 - 150 0 units 151 - 200 0 units 201 - 250 2 units 251 - 300 3 units 301 - 349 4 units if FSBS is under 70 or 350 and over call MD [guaifenesin Syrup] 10 Ml PO Q4HRS PRN 12/02/19 Reported Mucinex (Guaifenesin) 600 Mg Tablet.er 600 Mg PO BID 12/02/19 Reported Coreg (Carvedilol) 25 Mg Tablet 50 Mg PO BIDWMEALS 12/02/19 Reported Peridex (Chlorhexidine Gluconate) 15 Ml Mouthwash 15 Ml PO BID 30 12/02/19 Reported Swish in mouth for 30 seconds then spit out Calcium Carbonate 500 Mg Tablet 500 Mg PO Q4HRS 12/02/19 Reported Atorvastatin Calcium 10 Mg Tablet 10 Mg PO HS 12/02/19 Reported Acetaminophen 325 Mg Tablet 650 Mg PO Q6HRS 12/02/19 Reported Metformin Hcl 500 Mg Tablet 250 Mg PO BIDWMEALS 12/03/18 Reported Imodium A-D (Loperamide HCl) 2 Mg Capsule 2 Mg PO DAILY PRN 12/03/18 Reported Risperidone 0.5 Mg Tablet 0.5 Mg PO DAILY 03/21/18 Reported Risperidone 1 Mg Tablet 1 Tab PO QHS 03/21/18 Reported Levothyroxine Sodium 112 Mcg Tablet 1 Tab PO DAILY 03/21/18 Reported Advair 500-50 Diskus (Fluticasone/Salmeterol) 1 Each Disk.w.dev 1 Puff IH BID 03/21/18 Reported Nystatin 15 Gm Powder 1 Scott TP PRN BID PRN 03/21/18 Reported Clonazepam (Clonazepam) 0.5 Mg Tablet 1 Tab PO BID 09/30/16 Reported Montelukast Sodium Tablet (Montelukast Sodium) 10 Mg Tablet 1 Tab PO HS 02/18/16 Reported Gas-X (Simethicone) 80 Mg Tab.chew 160 Mg PO Q2HR PRN 02/18/16 Reported Gabapentin (Gabapentin) 100 Mg Capsule 100 Mg PO TID 02/18/[address] chest 1. Cardiomegaly. 2. Increased consolidative opacities in the left lung and scattered groundglass opacities in the right lung are suspicious for pneumonia. Some of the opacities in the left upper lobe are chronic scarring or atelectasis present on prior exam . 3. New trace bilateral pleural effusions. No large or drainable pleural effusion. Electronically signed by: Renetta Edouard MD (11/04/2020 4:07 PM) [id number] Impression . IMPRESSION: 1. Acute on chronic hypoxemic hypercapnic respiratory failure, extubated .10/31, Has been restless on/off. received ativan night of 11/09/ increase hypoxia/ on BIPAP/ 60%, now more awake, off BIPAP 2. Abnormal x-ray compatible with acute on chronic congestive heart failure,/ COVID-19. 3. Abnormal ct chest c/w COVID-19 PNEUMONIA/ ? BACTERIAL PNA 4. COVID-19 5. Acute metabolic toxic encephalopathy. 6. History of status post pacemaker defibrillator implantation. 7. Restless legs syndrome. 8. Schizoaffective disorder. 9. Acute on chronic systolic heart failure. 9. Non-ST segment elevation myocardial infarction. 10. Cardiomyopathy, ejection fraction on 11/2019 revealed EF of 45%. 11. Atrial fibrillation with V paced, currently underlying sinus rhythm. 12. Hyperlipidemia. 13. Hypothyroidism. 14. Fever, rule out bacteremia. 15. Sepsis.resolved 16. JACKIE Plan . PLAN: Extubated on , N/C during the day avoid sedative medications PRN haldol for agitation Off ABX Follow cardiology recs Follow nephrology recs, worsening renal function PT/OT/ST Social work for D/C planning DVT/GI PPX D/W MIGUEL VALENCIA MD Nov 12, 2020 16:02
--- NOTE | 2020-11-12 16:37 | PDOC ---
MATY ROJAS SDV PILOT/NAVIGATOR/DDS OPERATOR 11/12/20 1637: CARDIO Progress Notes Date and Time Date of Service 11/12/20 Time of Evaluation 1215 Subjective Subjective: Other (sleeping ) Vitals Vitals Vital Signs Date Time Temp Pulse Resp B/P (MAP) Pulse Ox O2 Delivery O2 Flow Rate FiO2 11/12/20 15:00 97.8 75 20 118/68 (85) 98 Nasal Cannula 3.0 97.8 Weight Weight [ ] Input and Output Intake and Output Intake and Output 11/12/20 07:00 Intake Total 950 ml Output Total 2410 ml Balance -1460 ml Intake Oral 950 ml Output Urine Total 2410 ml Laboratory Labs Laboratory Tests Test 11/12/20 05:00 11/12/20 07:59 11/12/20 11:11 Sodium Level 137 mmol/L (136-145) Potassium Level 4.5 mmol/L (3.5-5.1) Chloride Level 102 mmol/L (98-107) Carbon Dioxide Level 33 mmol/L (21-32) Anion Gap 2 (6-14) Blood Urea Nitrogen 48 mg/dL (7-20) Creatinine 2.4 mg/dL (0.6-1.0) Estimated GFR (Cockcroft-Gault) 25.0 Glucose Level 80 mg/dL (70-99) Calcium Level 8.2 mg/dL (8.5-10.1) Glucose (Fingerstick) 74 mg/dL (70-99) 118 mg/dL (70-99) Microbiology Micro Microbiology 10/30/20 Blood Culture - Final, Complete 10/30/20 Urine Culture - Final, Complete 10/30/20 Antimicrobic Susceptibility - Final, Complete Review of Systems Constitutional: yes: other (CONFUSED BUT LESS SO) Physical Exam HEENT: Neck Supple W Full Motion Chest: Symmetric LUNGS: Other (on 2L NC ) Heart: RRR (V paced wtih underling SR ) Abdomen: Other (nondistended ) Extremities: Other (trace bilateral LE edema ) Neurology: other (sleeping, RN reports intermittent confusion ) Assessment Assessment 1. Acute respiratory failure requiting intubation with a/c CHF and Covid PNA: s/p extubation, on NC 2. Acute on chronic systolic CHF: appears better compensated 3. NSTEMI: Most probable type II, demand ischemia. 4. Cardiomyopathy: prior EF at 45%. 5. PAFIB. Presently V paced with underling SR 6. Hypertension; controlled 7. Hyperlipidemia; statin. 8. Diabetes, II 9. Hypothyroidism; on replacement 10. Encephalopathy with underlying anxiety, depression, schizoaffective disorder. 11. JACKIE, hyperkalemia, nephrology following. Recommendations Metoprolol for rate control, HF optimization No ACEi/ARB with JACKIE ASA, statin. Secondary prevention Echo outpt when recovered from COVID Ongoing lung optimization Plan outpatient ischemic evaluation Supportive care Justicifation of Admission Dx: Justifications for Admission: Justification of Admission Dx: Yes RADHA SWAN MD 11/12/20 1900: CARDIO Progress Notes Assessment Assessment Agree with GRAPHITE DISK ASSEMBLER's assessment and plan. Acute on chronic systolic heart failure better compensated. Non-STEMI most probably demand ischemia. Plan outpatient ischemic evaluation. PAF, currently atrial sensed ventricular paced rhythm on telemetry. Hyperkalemia resolved. Nephrology following. MATY ROJAS APRN Nov 12, 2020 16:37 RADHA SWAN MD Nov 12, 2020 19:00
[2020-11-12 20:24] VITALS: BP 119/65
[2020-11-12] MEDS: FAMOTIDINE 20 MG TABLET. PO SCH (21:31)
[2020-11-12] MEDS: risperiDONE 1 MG TABLET. PO SCH (21:32)
[2020-11-12] MEDS: ATORVASTATIN CALCIUM 10 MG TABLET. PO SCH (21:32)
[2020-11-12 23:50] VITALS: BP 147/75
[2020-11-13 03:53] VITALS: BP 148/89
[2020-11-13] MEDS: POLYVINYL ALCOHOL 1.4% OPHTH SOLUTION 15ML BOTTLE. OU SCH ×7 (04:00→23:51)
[2020-11-13] MEDS: CALCIUM CARBONATE 500 MG TABLET PO SCH ×7 (04:04→23:51)
[2020-11-13] MEDS: LEVOTHYROXINE 112 MCG TABLET PO SCH (05:20)
[2020-11-13] MEDS: ACETAMINOPHEN 325 MG TABLET. PO SCH ×5 (05:20→23:51)
[2020-11-13] MEDS: HEPARIN for SUB-Q USE 5,000 UNIT/ML VIAL. SQ SCH ×3 (05:22→21:20)
[2020-11-13 05:59] LABS: CALCIUM 8.4 mg/dL (8.5-10.1); CREATININE 2.7 mg/dL (0.6-1.0); GFR 21.8; POTASSIUM 4.7 mmol/L (3.5-5.1)
[2020-11-13] MEDS: SODIUM BICARBONATE VIAL 50 MEQ in IV 1/2 NORMAL SALINE 1,000 ML IV SCH (06:20)
[2020-11-13 07:00] VITALS: BP 169/93
[2020-11-13] MEDS: INSULIN LISPRO 300 UNITS/3 ML VIAL. SQ SCH ×3 (08:00→17:00)
[2020-11-13] MEDS: ASPIRIN CHEWABLE 81 MG TABLET. PO SCH ×2 (08:00→09:01)
[2020-11-13] MEDS: rOPINIRole 1 MG TABLET. PO SCH (09:00)
[2020-11-13] MEDS: VITAMIN B COMPLEX TABLET. PO SCH (09:00)
[2020-11-13] MEDS: cloNIDine HCL 0.2 MG TABLET PO SCH ×3 (09:01→21:17)
[2020-11-13] MEDS: MAGNESIUM OXIDE 400 MG TABLET PO SCH (09:01)
[2020-11-13] MEDS: DICYCLOMINE HCL 10 MG CAPSULE PO SCH ×3 (09:01→21:18)
[2020-11-13] MEDS: LACTOBACILLUS RHAMNOSUS GG 1 CAPSULE. PO SCH ×2 (09:01→21:18)
[2020-11-13] MEDS: CETIRIZINE HCL 10 MG TABLET. PO SCH (09:01)
[2020-11-13] MEDS: buPROPion XL 150 MG TAB.ER.24H. PO SCH (09:02)
[2020-11-13] MEDS: METOPROLOL SUCC 24HR ER 100 MG TAB.ER.24H. PO SCH (09:02)
[2020-11-13] MEDS: MULTIVITAMIN with MINERAL TABLET. PO SCH (09:02)
[2020-11-13] MEDS: FOLIC ACID 1 MG TABLET. PO SCH (09:02)
[2020-11-13] MEDS: GABAPENTIN 100 MG CAPSULE. PO SCH ×3 (09:02→21:18)
[2020-11-13] MEDS: DIPHENOXYLATE/ATROPINE TABLET. PO SCH ×3 (09:02→21:17)
[2020-11-13] MEDS: clonazePAM 0.5 MG TABLET PO SCH (09:03)
--- NOTE | 2020-11-13 10:52 | PDOC ---
DATE OF SERVICE DATE: 11/13/20 TIME: 10:50 SUBJECTIVE ROS Stable, has baseline Psych Diagnosis, PO intake poor, No N/V. OBJECTIVE Vital Signs Vital Signs Date Time Temp Pulse Resp B/P (MAP) Pulse Ox O2 Delivery O2 Flow Rate FiO2 11/13/20 09:02 81 169/93 11/13/20 08:00 Nasal Cannula 3.0 11/13/20 07:00 98.0 16 99 98.0 I & 0 Intake and Output 11/13/20 07:00 Intake Total 330 ml Output Total 2700 ml Balance -2370 ml Intake Oral 330 ml Output Urine Total 1700 ml Stool Total 1000 ml PHYSICAL EXAM Physical Exam General Appearance: no apparent distress HEEN OM moist Skin: no rash Respiratory: decreased breath sounds Heart: S1S2 Abdomen: soft, obese bowel sounds present Genitourinary: Hutchins + Extremities: no edema Neurology: confused DIAGNOSIS/ASSESSMENT Assessment & Plan JACKIE-ATN- improving - Cr was down to 2.4 yesterday, 2.7 today Switch IVF to D5 1/2 NS, DC IV bicarb gtt , Supportive care , strict I/O (last 24 hrs 330/1700 (Urine) + 1000 (stool) ) ,avoid nephrotoxins, Dw RN CKD stage 2/3 CHF compensated / CM with EF 45% COVID Positive Acute hypoxemic hypercapnic respiratory failure- extubated Blood cultures positive AICD in UTI COMMENT/RELEVANT DATA Meds Current Medications Medications (Trade) Dose Ordered Sig/Eber Start Time Stop Time Status Last Admin Dose Admin Acetaminophen (Tylenol Supp) 650 mg PRN Q6HRS PRN 11/02/20 00:00 11/02/20 07:27 650 MG Acetaminophen (Tylenol) 650 mg Q6HRS 10/31/20 12:00 11/13/20 05:20 650 MG Albuterol Sulfate (Ventolin Hfa) 1 puff PRN Q6HRS PRN 11/04/20 13:45 11/04/20 13:50 1 PUFF Albuterol Sulfate (Ventolin Neb Soln) 2.5 mg PRN Q6HRS PRN 11/03/20 06:00 Albuterol/ Ipratropium (Duoneb) 3 ml PRN Q4HRS PRN 11/02/20 07:00 11/02/20 07:03 DC Amino Acids/ Glycerin/ Electrolytes 1,000 ml @ 100 mls/hr Q10H 11/01/20 13:30 11/09/20 14:40 DC 11/09/20 08:28 100 MLS/HR Amoxicillin/ Clavulanate Potassium (Augmentin 500/ 125mg) 1 tab BID 11/07/20 10:00 11/08/20 10:45 DC 11/08/20 09:14 1 TAB Aspirin (Aspirin Chewable) 81 mg DAILYWBKFT 10/31/20 08:00 11/12/20 09:42 81 MG Atorvastatin Calcium (Lipitor) 10 mg HS 10/31/20 21:00 11/12/20 21:32 10 MG Atropine Sulfate (ATROPINE 0.5mg SYRINGE) 0.5 mg PRN Q5MIN PRN 11/03/20 12:00 11/13/20 08:16 DC Budesonide (Pulmicort) 0.5 mg RTBID 10/31/20 20:00 11/01/20 13:52 DC Bupropion HCl (Wellbutrin Xl) 150 mg DAILY 10/31/20 12:00 11/13/20 09:02 150 MG Calcium Carbonate/ Glycine (Oscal) 500 mg Q4HRS 10/31/20 12:00 11/13/20 09:01 500 MG Carvedilol (Coreg) 12.5 mg BIDWMEALS 10/31/20 17:00 11/03/20 11:10 DC 11/01/20 08:43 12.5 MG Cetirizine HCl (ZyrTEC) 10 mg DAILY 11/01/20 09:00 11/13/20 09:01 10 MG Clonazepam (KlonoPIN) 0.5 mg BID 10/31/20 12:00 11/13/20 09:03 0.5 MG Clonidine HCl (Catapres) 0.2 mg TID 10/31/20 12:00 11/13/20 09:01 0.2 MG Dexamethasone Sodium Phosphate (Decadron) 6 mg DAILY 11/05/20 09:00 11/11/20 10:17 DC 11/11/20 09:15 6 MG Dexmedetomidine HCl 400 mcg/ Sodium Chloride 100 ml @ 0 mls/hr CONT PRN 11/03/20 12:00 11/13/20 08:16 DC 11/04/20 05:42 22.1 MLS/HR Dextrose (Dextrose 50%-Water Syringe) 25 gm 1X ONCE 11/10/20 06:30 11/10/20 06:31 DC 11/10/20 07:42 25 GM Dicyclomine HCl (Bentyl) 20 mg TID 10/31/20 14:00 11/13/20 09:01 20 MG Diphenoxylate HCl/ Atropine (Lomotil) 1 tab TID 10/31/20 14:00 11/13/20 09:02 1 TAB Doxycycline Hyclate (Vibra-Tab) 100 mg BID 11/05/20 09:00 11/05/20 09:43 DC Enoxaparin Sodium (Lovenox 120mg Syringe) 110 mg 1X ONCE 10/30/20 06:15 10/30/20 06:16 DC 10/30/20 06:27 110 MG Etomidate (Amidate) 20 mg STK-MED ONCE 10/30/20 10:43 10/30/20 10:43 DC Famotidine (Pepcid) 20 mg HS 10/31/20 21:00 11/12/20 21:31 20 MG Fentanyl Citrate (Fentanyl 2ml Vial) 50 mcg PRN Q2HR PRN 10/31/20 07:45 10/31/20 20:08 50 MCG Folic Acid (Folic Acid) 0.5 mg DAILY 10/31/20 12:00 11/13/20 09:02 0.5 MG Furosemide (Lasix) 40 mg DAILY 11/03/20 12:00 11/06/20 11:34 DC 11/05/20 10:27 40 MG Gabapentin (Neurontin) 100 mg TID 10/31/20 14:00 11/13/20 09:02 100 MG Glycerin/ Hypromellose/ Polyethylene (Artificial Tears) 2 drop Q4HRS 10/31/20 16:00 11/13/20 09:03 2 DROP Guaifenesin (Robitussin) 200 mg PRN Q4HRS PRN 10/31/20 12:45 11/10/20 21:24 200 MG Haloperidol Lactate (Haldol Inj) 5 mg PRN Q6HRS PRN 11/02/20 11:00 11/10/20 23:40 5 MG Heparin Sodium (Porcine) (Heparin Sodium) 5,000 unit Q8HRS 10/30/20 22:00 11/13/20 05:22 5,000 UNIT Ibuprofen (Motrin) 400 mg PRN Q6HRS PRN 10/31/20 11:15 Insulin Human Lispro (HumaLOG) 10 units 1X ONCE 11/09/20 15:00 11/09/20 14:56 DC Insulin Human Regular (HumuLIN R VIAL) 10 unit 1X ONCE 11/10/20 06:30 11/10/20 06:31 DC 11/10/20 07:43 10 UNIT Labetalol HCl (Normodyne Iv Push) 20 mg PRN Q2HR PRN 11/02/20 11:30 11/12/20 05:24 20 MG Lactobacillus Rhamnosus (Culturelle) 1 cap BID 10/31/20 12:00 11/13/20 09:01 1 CAP Levothyroxine Sodium (Synthroid) 112 mcg DAILY06 11/01/20 09:00 11/13/20 05:20 112 MCG Loperamide HCl (Imodium) 2 mg PRN DAILY PRN 10/31/20 11:15 11/07/20 09:53 2 MG Lorazepam (Ativan Inj) 0.5 mg PRN Q4HRS PRN 11/10/20 09:15 11/12/20 03:55 0.5 MG Lorazepam (Ativan) 0.5 mg PRN Q8HRS PRN 10/31/20 11:15 11/10/20 14:03 0.5 MG Magnesium Oxide (Magnesium Oxide) 400 mg DAILY 10/31/20 12:00 11/13/20 09:01 400 MG Metformin HCl (Glucophage) 250 mg BIDWMEALS 10/31/20 17:00 11/08/20 08:58 DC 11/07/20 17:25 250 MG Metoprolol Succinate (Toprol Xl) 100 mg DAILY 11/12/20 09:00 11/13/20 09:02 100 MG Metoprolol Tartrate (Lopressor Vial) 5 mg PRN Q6HRS PRN 11/11/20 16:15 Midazolam HCl 100 mg/Sodium Chloride 100 ml @ 0 mls/hr ONCE ONCE 10/30/20 06:45 10/30/20 06:46 DC 10/30/20 07:10 1 MLS/HR Multivitamins (Thera M Plus) 1 tab DAILY 10/31/20 12:30 11/13/20 09:02 1 TAB Non-Formulary Medication (Fluticasone/ Salmeterol (Advair 500-50 Diskus)) 1 puff BID 10/31/20 21:00 UNV Non-Formulary Medication (Peg 400/ Hypromellose/ Glycerin (Artificial Tears Drops)) 1 drop QID 10/31/20 13:00 UNV Non-Formulary Medication (Polyvinyl Alcohol (Tears Again)) 2 drop Q4HRS 10/31/20 12:00 UNV Non-Formulary Medication (Risperidone ) 0.5 mg DAILY 11/01/20 09:00 UNV Norepinephrine Bitartrate 8 mg/ Dextrose 258 ml @ 17.202 mls/ hr CONT PRN 11/03/20 13:45 11/11/20 10:17 DC 11/04/20 05:54 8.3 MLS/HR Nystatin (Nystop) 1 luis PRN BID PRN 10/31/20 11:15 Ondansetron HCl (Zofran Odt) 4 mg PRN Q8HRS PRN 10/31/20 12:30 Ondansetron HCl (Zofran) 4 mg PRN Q8HRS PRN 10/30/20 06:00 10/31/20 05:59 DC Piperacillin Sod/ Tazobactam Sod (Zosyn Per Pharmacy) 1 each PRN DAILY PRN 10/30/20 06:00 11/06/20 11:03 DC Piperacillin Sod/ Tazobactam Sod 3.375 gm/Sodium Chloride 50 ml @ 100 mls/hr Q6HRS 11/05/20 12:00 11/06/20 09:15 DC 11/06/20 00:04 100 MLS/HR Piperacillin Sod/ Tazobactam Sod 4.5 gm/Sodium Chloride 100 ml @ 200 mls/hr Q6HRS 10/30/20 12:00 11/04/20 09:59 DC 11/04/20 05:10 200 MLS/HR Polyethylene Glycol (miraLAX PACKET) 17 gm PRN DAILY PRN 11/09/20 10:30 Potassium Bicarbonate (Potassium Effervescent Tablet) 80 meq 1X ONCE 10/31/20 09:45 12/17/20 09:46 DC 10/31/20 13:20 80 MEQ Potassium Chloride (Klor-Con) 10 meq DAILYWBKFT 11/02/20 08:00 11/08/20 14:35 DC 11/07/20 09:08 10 MEQ Propofol 100 ml @ 3.408 mls/ hr CONT PRN 10/30/20 09:00 11/13/20 08:16 DC 10/31/20 12:07 3.408 MLS/HR Risperidone (RisperDAL) 1 mg QHS 10/31/20 21:00 11/12/20 21:32 1 MG Ropinirole HCl (Requip) 2 mg DAILY 11/01/20 09:00 11/13/20 09:00 2 MG Simethicone (Gas-X) 160 mg PRN Q2HR PRN 10/31/20 12:00 11/06/20 17:23 160 MG Sodium Bicarbonate 50 meq/Sodium Chloride 1,050 ml @ 100 mls/hr [id number] 11/09/20 16:00 11/13/20 06:20 100 MLS/HR Sodium Polystyrene Sulfonate (Kayexalate) 15 gm 1X ONCE 11/10/20 19:00 11/10/20 19:01 DC 11/10/20 18:11 15 GM Sodium Bicarbonate (Sodium Bicarb Adult 8.4% Syr) 50 meq 1X ONCE 11/10/20 06:30 11/10/20 06:31 DC 11/10/20 07:41 50 MEQ Sodium Chloride 1,000 ml @ 125 mls/hr Q8H 11/06/20 16:30 11/07/20 10:52 DC 11/06/20 23:41 125 MLS/HR Succinylcholine Chloride (Anectine) 200 mg STK-MED ONCE 10/30/20 10:43 10/30/20 10:44 DC Tramadol HCl (Ultram) 50 mg PRN Q6HRS PRN 10/31/20 11:15 Vancomycin HCl (Vanco Per Pharmacy) 1 each PRN DAILY PRN 10/30/20 11:00 10/31/20 11:11 DC 10/31/20 09:51 1 EACH Vancomycin HCl (Vancomycin Trough Level) 1 each 1X ONCE 11/01/20 12:30 10/31/20 13:36 DC Vancomycin HCl 1.75 gm/Sodium Chloride 500 ml @ 250 mls/hr Q24H 10/31/20 13:00 10/31/20 11:11 DC Vitamin B Complex (Dustin B) 1 tab DAILY 10/31/20 12:00 11/13/20 09:00 1 TAB Ziprasidone (Geodon Im) 10 mg PRN QHS PRN 11/09/20 22:45 Lab Laboratory Tests Test 11/12/20 11:11 11/12/20 16:42 11/12/20 20:51 11/13/20 05:30 Glucose (Fingerstick) 118 mg/dL (70-99) 106 mg/dL (70-99) 104 mg/dL (70-99) Sodium Level 138 mmol/L (136-145) Potassium Level 4.7 mmol/L (3.5-5.1) Chloride Level 102 mmol/L (98-107) Carbon Dioxide Level 36 mmol/L (21-32) Anion Gap 0 (6-14) Blood Urea Nitrogen 43 mg/dL (7-20) Creatinine 2.7 mg/dL (0.6-1.0) Estimated GFR (Cockcroft-Gault) 21.8 Glucose Level 95 mg/dL (70-99) Calcium Level 8.4 mg/dL (8.5-10.1) Test 11/13/20 08:00 Glucose (Fingerstick) 88 mg/dL (70-99) Results All relevant outside records, renal labs, imaging studies, telemetry/EKG's were reviewed. Justicifation of Admission Dx: Justifications for Admission: Justification of Admission Dx: Yes SARAHI SORENSEN MD Nov 13, 2020 10:52
[2020-11-13 11:00] VITALS: BP 148/80
[2020-11-13] MEDS: IV DEXTROSE 5 %-0.45 % NACL 1,000 ML IV SCH ×2 (11:51→23:30)
--- NOTE | 2020-11-13 13:13 | PDOC ---
PULMONARY PROGRESS NOTES DATE: 11/13/20 TIME: 13:12 Subjective extubated on 10/31 on 3liters N/C Lethargic on examination this morning received IV Ativan no other concerns from nursing Vitals Vital Signs Date Time Temp Pulse Resp B/P (MAP) Pulse Ox O2 Delivery O2 Flow Rate FiO2 11/13/20 11:00 97.0 72 17 148/80 (102) 98 Nasal Cannula 3.0 97.0 Comments visual exam done due to COVID-19 pandemic RRR Lethargic N/C No edema ROS: No Nausea, No Chest Pain, No Abdominal Pain, No Increase Cough Labs Laboratory Tests Test 11/11/20 16:23 11/12/20 05:00 11/12/20 07:59 11/12/20 11:11 Glucose (Fingerstick) 152 mg/dL (70-99) 74 mg/dL (70-99) 118 mg/dL (70-99) Sodium Level 137 mmol/L (136-145) Potassium Level 4.5 mmol/L (3.5-5.1) Chloride Level 102 mmol/L (98-107) Carbon Dioxide Level 33 mmol/L (21-32) Anion Gap 2 (6-14) Blood Urea Nitrogen 48 mg/dL (7-20) Creatinine 2.4 mg/dL (0.6-1.0) Estimated GFR (Cockcroft-Gault) 25.0 Glucose Level 80 mg/dL (70-99) Calcium Level 8.2 mg/dL (8.5-10.1) Test 11/12/20 16:42 11/12/20 20:51 11/13/20 05:30 11/13/20 08:00 Glucose (Fingerstick) 106 mg/dL (70-99) 104 mg/dL (70-99) 88 mg/dL (70-99) Sodium Level 138 mmol/L (136-145) Potassium Level 4.7 mmol/L (3.5-5.1) Chloride Level 102 mmol/L (98-107) Carbon Dioxide Level 36 mmol/L (21-32) Anion Gap 0 (6-14) Blood Urea Nitrogen 43 mg/dL (7-20) Creatinine 2.7 mg/dL (0.6-1.0) Estimated GFR (Cockcroft-Gault) 21.8 Glucose Level 95 mg/dL (70-99) Calcium Level 8.4 mg/dL (8.5-10.1) Test 11/13/20 11:47 Glucose (Fingerstick) 123 mg/dL (70-99) Laboratory Tests Test 11/12/20 16:42 11/12/20 20:51 11/13/20 05:30 11/13/20 08:00 Glucose (Fingerstick) 106 mg/dL (70-99) 104 mg/dL (70-99) 88 mg/dL (70-99) Sodium Level 138 mmol/L (136-145) Potassium Level 4.7 mmol/L (3.5-5.1) Chloride Level 102 mmol/L (98-107) Carbon Dioxide Level 36 mmol/L (21-32) Anion Gap 0 (6-14) Blood Urea Nitrogen 43 mg/dL (7-20) Creatinine 2.7 mg/dL (0.6-1.0) Estimated GFR (Cockcroft-Gault) 21.8 Glucose Level 95 mg/dL (70-99) Calcium Level 8.4 mg/dL (8.5-10.1) Test 11/13/20 11:47 Glucose (Fingerstick) 123 mg/dL (70-99) Medications Active Scripts Medications Dose Route/Sig Max Daily Dose Days Date Category Dose Instructions Lomotil Tablet (Diphenoxylate Hcl/Atropine) 1 Each Tablet 1 Tab PO TID 3 10/28/20 Rx Dicyclomine Hcl 20 Mg Tablet 1 Tab PO TID 10 10/28/20 Rx Zithromax (Azithromycin) 250 Mg Tablet 250 Mg PO DIRECTED 10/28/20 Rx Take 2 PO x 1 days Then take 1 PO q 24 hour for the next 4 days Doxycycline Hyclate 100 Mg Tablet 1 Tab PO BID 3 12/04/19 Rx Culturelle (Lactobacillus Rhamnosus Gg) 1 Each Cap.sprink 1 Cap PO BID 14 12/04/19 Rx Zofran (Ondansetron Hcl) 4 Mg Tablet 4 Mg PO Q8HRS PRN 12/02/19 Reported Tramadol Hcl 50 Mg Tablet 50 Mg PO Q6HRS PRN 12/02/19 Reported Tears Again (Polyvinyl Alcohol) 15 Ml Drops 2 Drop EACHEYE Q4HRS 30 12/02/19 Reported Polyvinyl Alcohol 15 Ml Drops 2 Drop EACHEYE Q4HRS 30 1/18/20 Reported Ropinirole Hcl 1 Mg Tablet 1 Mg PO BID 12/02/19 Reported Pantoprazole Sodium (Pantoprazole Sodium) 40 Mg Tablet.dr 40 Mg PO DAILYAC 12/02/19 Reported B-Complex Plus Vitamin C (B Complex With Vitamin C) 1 Each Tablet 1 Each PO DAILY 12/02/19 Reported Magnesium Oxide 400 Mg Tablet 400 Mg PO DAILY 12/02/19 Reported Loratadine 10 Mg Tablet 10 Mg PO DAILY 12/02/19 Reported Ketotifen Fumarate 5 Ml Drops 1 Drop EACHEYE BID 12/02/19 Reported Humalog (Insulin Lispro) 100 Unit/1 Ml Vial 100 Unit SQ BIDWMEALS 12/02/19 Reported 70 - 150 0 units 151 - 200 0 units 201 - 250 2 units 251 - 300 3 units 301 - 349 4 units if FSBS is under 70 or 350 and over call MD [guaifenesin Syrup] 10 Ml PO Q4HRS PRN 12/02/19 Reported Mucinex (Guaifenesin) 600 Mg Tablet.er 600 Mg PO BID 12/02/19 Reported Coreg (Carvedilol) 25 Mg Tablet 50 Mg PO BIDWMEALS 12/02/19 Reported Peridex (Chlorhexidine Gluconate) 15 Ml Mouthwash 15 Ml PO BID 30 12/02/19 Reported Swish in mouth for 30 seconds then spit out Calcium Carbonate 500 Mg Tablet 500 Mg PO Q4HRS 12/02/19 Reported Atorvastatin Calcium 10 Mg Tablet 10 Mg PO HS 12/02/19 Reported Acetaminophen 325 Mg Tablet 650 Mg PO Q6HRS 12/02/19 Reported Metformin Hcl 500 Mg Tablet 250 Mg PO BIDWMEALS 12/03/18 Reported Imodium A-D (Loperamide HCl) 2 Mg Capsule 2 Mg PO DAILY PRN 12/03/18 Reported Risperidone 0.5 Mg Tablet 0.5 Mg PO DAILY 03/21/18 Reported Risperidone 1 Mg Tablet 1 Tab PO QHS 03/21/18 Reported Levothyroxine Sodium 112 Mcg Tablet 1 Tab PO DAILY 03/21/18 Reported Advair 500-50 Diskus (Fluticasone/Salmeterol) 1 Each Disk.w.dev 1 Puff IH BID 03/21/18 Reported Nystatin 15 Gm Powder 1 Scott TP PRN BID PRN 03/21/18 Reported Clonazepam (Clonazepam) 0.5 Mg Tablet 1 Tab PO BID 09/30/16 Reported Montelukast Sodium Tablet (Montelukast Sodium) 10 Mg Tablet 1 Tab PO HS 02/18/16 Reported Gas-X (Simethicone) 80 Mg Tab.chew 160 Mg PO Q2HR PRN 02/18/16 Reported Gabapentin (Gabapentin) 100 Mg Capsule 100 Mg PO TID 02/18/[address] chest 1. Cardiomegaly. 2. Increased consolidative opacities in the left lung and scattered groundglass opacities in the right lung are suspicious for pneumonia. Some of the opacities in the left upper lobe are chronic scarring or atelectasis present on prior exam. 3. New trace bilateral pleural effusions. No large or drainable pleural effusion. Electronically signed by: Renetta Edouard MD (11/04/2020 4:07 PM) [id number] Impression . IMPRESSION: 1. Acute on chronic hypoxemic hypercapnic respiratory failure, extubated .10/31, Has been restless on/off. received ativan night of 11/09/ increase hypoxia/ on BIPAP/ 60%, now more awake, off BIPAP 2. Abnormal x-ray compatible with acute on chronic congestive heart failure,/ COVID-19. 3. Abnormal ct chest c/w COVID-19 PNEUMONIA/ ? BACTERIAL PNA 4. COVID-19 5. Acute metabolic toxic encephalopathy. 6. History of status post pacemaker defibrillator implantation. 7. Restless legs syndrome. 8. Schizoaffective disorder. 9. Acute on chronic systolic heart failure. 9. Non-ST segment elevation myocardial infarction. 10. Cardiomyopathy, ejection fraction on 11/2019 revealed EF of 45%. 11. Atrial fibrillation with V paced, currently underlying sinus rhythm. 12. Hyperlipidemia. 13. Hypothyroidism. 14. Fever, rule out bacteremia. 15. Sepsis.resolved 16. JACKIE Plan . PLAN: Extubated on , N/C during the day avoid sedative medications--- DC all benzodiazepines PRN haldol for agitation Off ABX Follow cardiology recs Follow nephrology recs, PT/OT/ST Social work for D/C planning DVT/GI PPX D/W MIGUEL VALENCIA MD Nov 13, 2020 13:13
[2020-11-13] MEDS ORDERED: HALOPERIDOL LACTATE 5 MG/ML VIAL. IVP PRN (13:15)
--- NOTE | 2020-11-13 13:49 | NUR ---
SS following up with discharge planning. SS reviewed pt chart and discussed with pt RN. Pt is currently requiring oxygen at three liters nasal canula. COVID19 positive. Rectal tube removed today. Hutchins in place. BICARB drip being discontinued. Pt is LTC resident from [facility], ; fax [phone], and is able to return when medically ready. SS will continue to follow for discharge planning.
--- NOTE | 2020-11-13 13:55 | PDOC ---
[employer] PROGRESS NOTE Date of Service DOS: DATE: 11/13/20 TIME: 13:54 Chief Complaint Chief Complaint COVID Positive Acute hypoxemic hypercapnic respiratory failure Acute on chronic heart failure Blood cultures positive Heart failure PMH MA AICD in UTI Hypocalcemia Hypertriglyceridemia Anemia Low platelets Hypoglycemia (43) Elevated Cr Hyperkalemia History of Present Illness History of Present Illness 10/31 Patient seen and examined in ICU Patient sedated with propofol Possible COVID - pending under investigation Discussed with RN Chart reviewed Blood culture positive Vent settings as follows AC/18/450/40 11/01 Patient is COVID positive Patient seen and examined in ICU Patient sedated with propofol Discussed with RN Discussed with Sub Arc Operator Chart reviewed Blood cultures are positive 11/02 Patient is COVID positive Patient seen and examined in ICU Propofol IV Discussed with RN Chart Reviewed Blood cultures positive 11/03/2020 Patient resting w/ NAD on Bipap Patient is COVID positive Patient seen and examined in ICU Propofol IV Discussed with RN Chart Reviewed Blood cultures positive 11/04/2020 Patient seen and evaluated. Tachypneic, afebrile. Still breathing on BiPAP. Continue IV Zosyn, positive blood cultures most likely contaminant. Continue diuresis. She is on Levophed and Precedex. Still with some agitation. CT chest pending to evaluate possible thoracentesis. Total time spent 35 minutes, >50% time spent reviewing charts, reviewing labs, discussing with RN and social work msw. 11/05/2020 Patient seen and evaluated. She is still intermittently requiring BiPAP. Afebrile, tachypneic, tachycardic. Sedated with Haldol. CT chest yesterday showing trace bilateral pleural effusion, no drainable fluid collection. Continue COVID-19 treatment with steroids and supportive care. 11/06/2020 Patient seen and evaluated, status post extubation 10/31. Afebrile, tachycard ic. She is breathing intermittently on BiPAP, currently on 2 L nasal cannula. States she is hungry, swallow eval pending. Continue steroids and antibiotics, per ID. Continue diuresis. 11/07/2020 Patient seen evaluate bedside. Status post extubation on 1217. Rising creatinine of 3.3. Pending nephrology evaluation.> 50% time spent in patient chart, labs, and imaging review and in discussion with RN and SW 11/08/2020 Patient seen and examined bedside. No acute events overnight. Saturating 96% on 4 L nasal cannula during the day and tolerating 35% on BiPAP. Passed speech swallow study and is currently on a dysphagia diet. Augmentin discontinued today per ID.> 50% time spent in patient chart, labs, and imaging review and in discussion with RN and MADDIE 11/09/2020 No acute events overnight. Patient is afebrile. Patient seen and examined bedside. Is somewhat more confused and agitated today mainly due to incontinence to stool. Rectal tube has been removed Hutcihns is intact. Will encourage thickened liquids of 240 cc every 6 hours mainly due to JACKIE and worsening potassium. Will defer the rest of the management to nephrology for improving renal function.> 50% time spent in patient chart, labs, and imaging review and in discussion with RN and MADDIE 11/10/2020 Patient given 2 mg IV Ativan last night and subsequently placed on BiPAP. Will change dose to 0.5 p.o. Ativan and see if we can wean off BiPAP and put back on nasal cannula. Patient's chart, labs, images were reviewed and discussed with RN 11/11/2020 No acute events overnight. Patient tolerated BiPAP at night. Currently saturating 94% on 5 L nasal cannula. Elevating potassium levels. Sodium bicarb started. Patient's chart, labs, images were reviewed and discussed with RN 11/12/2020 No acute events overnight. Patient's drowsy this morning but saturating 95% on 3 L nasal cannula. Cannulated patient had some vaginal bleeding and the heparin was held this morning. Discussion with the RN states that her Hutchins might have been tugged causing that episode of bleeding. However patient has not been bleeding this morning and Hutchins and rectal tube was not placed. Patient's ney t, labs, images were reviewed and discussed with RN 11/13/2020 No acute events overnight. Patient continues to be drowsy but is following commands and able to make requests for the nurse. Patient saturating 98% on 3 L nasal cannula. Still has some vaginal bleeding around the Hutchins. Rectal tube will be removed today. Will discuss with nephrology for Hutchins removal. Consult gynecology for vaginal bleeding. Patient's chart, labs, images were reviewed and discussed with RN Vitals/I&O Vitals/I&O: Vital Signs Date Time Temp Pulse Resp B/P (MAP) Pulse Ox O2 Delivery O2 Flow Rate FiO2 11/13/20 11:00 97.0 72 17 148/80 (102) 98 Nasal Cannula 3.0 97.0 I & O 11/12/20 11/12/20 11/13/20 15:00 23:00 07:00 Intake Total 170 ml 20 ml 590 ml Output Total 1850 ml 850 ml Balance 170 ml -1830 ml -260 ml Physical Exam Physical Exam: GENERAL: Alert awake female HEENT: Both pupils are round and reacting. No conjunctival lesion. No lesion in the mouth. NECK: Supple, no JVP, no lymphadenopathy. LUNGS: Clear. HEART: S1, S2 regular. ABDOMEN: Soft bowel sounds present nontender nondistended Fecal tube present EXTREMITIES: No edema or cyanosis. SKIN: Unremarkable. NEUROLOGIC: Alert awake General: Alert, Cooperative, No acute distress Heart: Regular rate Abdomen: Normal bowel sounds Extremities: No clubbing Skin: No breakdown Labs Labs: Laboratory Tests Test 11/12/20 16:42 11/12/20 20:51 11/13/20 05:30 11/13/20 08:00 Glucose (Fingerstick) 106 mg/dL (70-99) 104 mg/dL (70-99) 88 mg/dL (70-99) Sodium Level 138 mmol/L (136-145) Potassium Level 4.7 mmol/L (3.5-5.1) Chloride Level 102 mmol/L (98-107) Carbon Dioxide Level 36 mmol/L (21-32) Anion Gap 0 (6-14) Blood Urea Nitrogen 43 mg/dL (7-20) Creatinine 2.7 mg/dL (0.6-1.0) Estimated GFR (Cockcroft-Gault) 21.8 Glucose Level 95 mg/dL (70-99) Calcium Level 8.4 mg/dL (8.5-10.1) Test 11/13/20 11:47 Glucose (Fingerstick) 123 mg/dL (70-99) Assessment and Plan Assessmemt and Plan Problems Medical Problems: (1) AMS (altered mental status) Status: Acute (2) Hypercapnia Status: Acute (3) Person under investigation for COVID-19 Status: Acute (4) Respiratory failure Status: Acute (5) UTI (urinary tract infection) Status: Acute Comment Review of Relevant I have reviewed the following items lucas (where applicable) has been applied. Medications: Current Medications Medications (Trade) Dose Ordered Sig/Eber Route PRN Reason Start Time Stop Time Status Last Admin Dose Admin Dextrose/Sodium Chloride 1,000 ml @ 75 mls/hr [id number] IV 11/13/20 11:15 11/13/20 11:51 Justifications for Admission Other Justification SARAVANAN VINCENT MD Nov 13, 2020 13:55
--- NOTE | 2020-11-13 14:51 | PDOC2 ---
CONSULT Date of Consult Date of Consult DATE: 11/13/20 TIME: 14:50 Reason for Consult Reason for Consult: VB History of Present Illness Reason for Visit: 60y admitted from ER for altered mental status on 10/30. The pt was found on the [facility] in [facility] on 10[facility]28. A CT head returned nml, so the pt was d/c back to the [facility]. When she returned 12-hour neuro check were performed and the morning of admission the pt was found to be confused. The pt was admitted to the ICU. Covid testing and BCxs returned positive. This weekend the pt began to have light vaginal bleeding. At times the blood is noted to have clots present. She has been bleeding since. The pt is still too sedated to gather a good menstrual history. PMH: A-Fib, Anxiety, Asthma, CHF, Constipation, Diabetes-Type II, GERD, Hypothyroid, Schizophrenia PSH: Pacemaker Past Medical History Cardiovascular: CHF, HTN, Hyperlipidemia, Other Pulmonary: Asthma CENTRAL NERVOUS SYSTEM: Other GI: GERD, Other Heme/Onc: No pertinent hx Hepatobiliary: No pertinent hx Psych: Anxiety, Depression, Schizophrenia Musculoskeletal: Osteoarthritis, Other Rheumatologic: No pertinent hx Infectious disease: No pertinent hx Renal/: Chronic renal insuff, UTI Endocrine: Diabetes, Hypothyroidism Past Surgical History Past Surgical History: Pacemaker Family History Family History: Family History Unknown Social History Quit ALCOHOL: none Drugs: None Lives: [facility] Domestic Violence: Neg Current Problem List Problem List Problems Medical Problems: (1) AMS (altered mental status) Status: Acute (2) Hypercapnia Status: Acute (3) Person under investigation for COVID-19 Status: Acute (4) Respiratory failure Status: Acute (5) UTI (urinary tract infection) Status: Acute Current Medications Current Medications Current Medications Acetaminophen (Tylenol Supp) 975 mg 1X ONCE NJ Last administered on 10/30/20at 03:54; Start 10/30/20 at 03:45; Stop 10/30/20 at 03:46; Status DC Piperacillin Sod/ Tazobactam Sod 3.375 gm/Sodium Chloride 50 ml @ 100 mls/hr 1X ONCE IV Last administered on 10/30/20at 04:54; Start 10/30/20 at 04:45; Stop 10/30/20 at 05:14; Status DC Sodium Chloride 1,000 ml @ 1,000 mls/hr 1X ONCE IV Last administered on 10/30/20at 04:52; Start 10/30/20 at 04:30; Stop 10/30/20 at 05:29; Status DC Sodium Chloride 1,000 ml @ 1,000 mls/hr 1X ONCE IV Last administered on 10/30/20at 05:15; Start 10/30/20 at 05:30; Stop 10/30/20 at 06:29; Status DC Ondansetron HCl (Zofran) 4 mg PRN Q8HRS PRN IV NAUSEA/VOMITING; Start 10/30/20 at 06:00; Stop 10/31/20 at 05:59; Status DC Sodium Chloride 1,000 ml @ 75 mls/hr [id number] IV Last administered on 10/30/20at 22:15; Start 10/30/20 at 06:00; Stop 10/31/20 at 05:59; Status DC Piperacillin Sod/ Tazobactam Sod (Zosyn Per Pharmacy) 1 each PRN DAILY PRN [facility] SEE COMMENTS; Start 10/30/20 at 06:00; Stop 11/06/20 at 11:03; Status DC Enoxaparin Sodium (Lovenox 120mg Syringe) 110 mg 1X ONCE SQ Last administered on 10/30/20at 06:27; Start 10/30/20 at 06:15; Stop 10/30/20 at 06:16; Status DC Midazolam HCl 100 mg/Sodium Chloride 100 ml @ 0 mls/hr ONCE ONCE IV Last administered on 10/30/20at 07:10; Start 10/30/20 at 06:45; Stop 10/30/20 at 06:46; Status DC Fentanyl Citrate (Fentanyl 2ml Vial) 100 mcg 1X ONCE IV Last administered on 10/30/20at 07:38; Start 10/30/20 at 07:30; Stop 10/30/20 at 07:31; Status DC Piperacillin Sod/ Tazobactam Sod 4.5 gm/Sodium Chloride 100 ml @ 200 mls/hr Q6HRS IV Last administered on 11/04/20at 05:10; Start 10/30/20 at 12:00; Stop 11/04/20 at 09:59; Status DC Propofol 100 ml @ 3.408 mls/ hr CONT PRN IV PER PROTOCOL Last administered on 10/31/20at 12:07; Start 10/30/20 at 09:00; Stop 11/13/20 at 08:16; Status DC Furosemide (Lasix) 40 mg 1X ONCE IVP Last administered on 10/30/20at 10:06; Start 10/30/20 at 09:45; Stop 10/30/20 at 09:46; Status DC Etomidate (Amidate) 20 mg STK-MED ONCE IV ; Start 10/30/20 at 10:43; Stop at 10:43; Status DC Succinylcholine Chloride (Anectine) 200 mg STK-MED ONCE .ROUTE ; Start 10/30/20 at 10:43; Stop 10/30/20 at 10:44; Status DC Vancomycin HCl (Vanco Per Pharmacy) 1 each PRN DAILY PRN [facility] SEE COMMENTS Last administered on 10/31/20at 09:51; Start 10/30/20 at 11:00; Stop 10/31/20 at 11:11; Status DC Vancomycin HCl 1.75 gm/Sodium Chloride 500 ml @ 250 mls/hr ONCE ONCE IV Last administered on 10/30/20at 12:36; Start 10/30/20 at 11:30; Stop 10/30/20 at 13:29; Status DC Aspirin (Aspirin Chewable) 324 mg 1X ONCE PO ; Start 10/30/20 at 15:15; Stop 10/30/20 at 15:22; Status DC Aspirin (Aspirin Chewable) 81 mg DAILYWBKFT PO Last administered on 11/12/20at 09:42; Start 10/31/20 at 08:00 Heparin Sodium (Porcine) (Heparin Sodium) 5,000 unit Q8HRS SQ Last administered on 11/13/20at 05:22; Start 10/30/20 at 22:00 Carvedilol (Coreg) 3.125 mg BIDWMEALS PO Last administered on 10/31/20at 09:27; Start 10/30/20 at 17:00; Stop 10/31/20 at 15:45; Status DC Vancomycin HCl 1.75 gm/Sodium Chloride 500 ml @ 250 mls/hr Q24H IV ; Start 10/31/20 at 13:00; Stop 10/31/20 at 11:11; Status DC Fentanyl Citrate (Fentanyl 2ml Vial) 50 mcg PRN Q2HR PRN IVP PAIN Last administered on 10/31/20at 20:08; Start 10/31/20 at 07:45 Vancomycin HCl (Vancomycin Trough Level) 1 each 1X ONCE MC ; Start 11/01/20 at 12:30; Stop 10/31/20 at 13:36; Status DC Potassium Bicarbonate (Potassium Effervescent Tablet) 80 meq 1X ONCE PO Last administered on 10/31/20at 13:20; Start 10/31/20 at 09:45; Stop 10/31/20 at 09:46; Status DC Acetaminophen (Tylenol) 650 mg Q6HRS PO Last administered on 11/13/20 05:20; Start 10/31/20 at 12:00 Atorvastatin Calcium (Lipitor) 10 mg HS PO Last administered on 11/12/20at 21:32; Start 10/31/20 at 21:00 Bupropion HCl (Wellbutrin Xl) 150 mg DAILY PO Last administered on 11/13/20 09:02; Start 10/31/20 at 12:00 Calcium Carbonate/ Glycine (Oscal) 500 mg Q4HRS PO Last administered on 11/13/20 09:01; Start 10/31/20 at 12:00 Clonazepam (KlonoPIN) 0.5 mg BID PO Last administered on 11/13/20 09:03; Start 10/31/20 at 12:00; Stop 11/13/20 at 13:12; Status DC Clonidine HCl (Catapres) 0.2 mg TID PO Last administered on 11/13/20 09:01; Start 10/31/20 at 12:00 Diphenoxylate HCl/ Atropine (Lomotil) 1 tab TID PO Last administered on 11/13/20 09:02; Start 10/31/20 at 14:00 Doxycycline Hyclate (Vibra-Tab) 100 mg BID PO Last administered on 11/01/20at 08:43; Start 10/31/20 at 12:00; Stop 11/02/20 at 16:50; Status DC Famotidine (Pepcid) 20 mg HS PO Last administered on 11/12/20 21:31; Start 10/31/20 at 21:00 Gabapentin (Neurontin) 100 mg TID PO Last administered on 11/13/20at 09:02; Start 10/31/20 at 14:00 Ibuprofen (Motrin) 400 mg PRN Q6HRS PRN PO INFLAMMATION; Start 10/31/20 at 11:15 Insulin Human Regular (HumuLIN R VIAL) 100 unit BIDWMEALS SQ ; Start 10/31/20 at 17:00; Status UNV Albuterol/ Ipratropium (Duoneb) 3 ml Q4HRS NEB ; Start 10/31/20 at 12:00; Stop 11/02/20 at 07:02; Status DC Lactobacillus Rhamnosus (Culturelle) 1 cap BID PO Last administered on 11/13/20at 09:01; Start 10/31/20 at 12:00 Levothyroxine Sodium (Synthroid) 112 mcg DAILY06 PO Last administered on 11/13/20at 05:20; Start 11/01/20 at 09:00 Loperamide HCl (Imodium) 2 mg PRN DAILY PRN PO DIARRHEA Last administered on 11/07/20at 09:53; Start 10/31/20 at 11:15 Lorazepam (Ativan) 0.5 mg PRN Q8HRS PRN PO ANXIETY Last administered on 11/10/20at 14:03; Start 10/31/20 at 11:15 Metformin HCl (Glucophage) 250 mg BIDWMEALS PO Last administered on 11/07/20at 17:25; Start 10/31/20 at 17:00; Stop 11/08/20 at 08:58; Status DC Nystatin (Nystop) 1 scott PRN BID PRN TP RASH; Start 10/31/20 at 11:15 Polyethylene Glycol (miraLAX PACKET) 17 gm DAILY PO Last administered on 11/08/20at 09:13; Start 10/31/20 at 12:00; Stop 11/09/20 at 10:19; Status DC Risperidone (RisperDAL) 1 mg QHS PO Last administered on 11/12/20at 21:32; Start 10/31/20 at 21:00 Ropinirole HCl (Requip) 2 mg DAILY PO Last administered on 11/13/20at 09:00; Start 11/01/20 at 09:00 Simethicone (Gas-X) 160 mg Q2HR PRN PO GAS / BLOATING; Start 10/31/20 at 11:15; Stop 10/31/20 at 11:52; Status DC Tramadol HCl (Ultram) 50 mg PRN Q6HRS PRN PO MILD TO MODERATE PAIN; Start 10/31/20 at 11:15 Vitamin B Complex (Dustin B) 1 tab DAILY PO Last administered on 11/13/20at 09:00; Start 10/31/20 at 12:00 Carvedilol (Coreg) 50 mg BIDWMEALS PO ; Start 10/31/20 at 12:00; Stop 10/31/20 at 13:34; Status DC Dicyclomine HCl (Bentyl) 20 mg TID PO Last administered on 11/13/20 09:01; Start 10/31/20 at 14:00 Non-Formulary Medication (Fluticasone/ Salmeterol (Advair 500-50 Diskus)) 1 puff BID IH ; Start 10/31/20 at 21:00; Status UNV Folic Acid (Folic Acid) 0.5 mg DAILY PO Last administered on 11/13/20 09:02; Start 10/31/20 at 12:00 Cetirizine HCl (ZyrTEC) 10 mg DAILY PO Last administered on 11/13/20 09:01; Start 11/01/20 at 09:00 Magnesium Oxide (Magnesium Oxide) 400 mg DAILY PO Last administered on 11/13/20 09:01; Start 10/31/20 at 12:00 Multivitamins (Thera M Plus) 1 tab DAILY PO Last administered on 11/13/20at 09:02; Start 10/31/20 at 12:30 Ondansetron HCl (Zofran Odt) 4 mg PRN Q8HRS PRN PO NAUSEA/VOMITING; Start 10/31/20 at 12:30 Non-Formulary Medication (Peg 400/ Hypromellose/ Glycerin (Artificial Tears Drops)) 1 drop QID OS ; Start 10/31/20 at 13:00; Status UNV Glycerin/ Hypromellose/ Polyethylene (Artificial Tears) 2 drop Q4HRS OU Last administered on 11/13/20at 11:51; Start 10/31/20 at 16:00 Non-Formulary Medication (Polyvinyl Alcohol (Tears Again)) 2 drop Q4HRS EACHEYE ; Start 10/31/20 at 12:00; Status UNV Non-Formulary Medication (Risperidone ) 0.5 mg DAILY PO ; Start 11/01/20 at 09:00; Status UNV Guaifenesin (Robitussin) 200 mg PRN Q4HRS PRN PO COUGH Last administered on 11/10/20at 21:24; Start 10/31/20 at 12:45 Insulin Human Lispro (HumaLOG) 0-5 UNITS TIDWMEALS SQ Last administered on 11/09/20at 18:31; Start 10/31/20 at 12:00 Dextrose (Dextrose 50%-Water Syringe) 12.5 gm PRN Q15MIN PRN IV SEE COMMENTS Last administered on 11/10/20at 14:01; Start 10/31/20 at 11:45 Simethicone (Gas-X) 160 mg PRN Q2HR PRN PO GAS / BLOATING Last administered on 11/06/20at 17:23; Start 10/31/20 at 12:00 Albuterol Sulfate (Ventolin Neb Soln) 2.5 mg Q6HRS NEB ; Start 10/31/20 at 13:00; Stop 11/02/20 at 07:02; Status DC Budesonide (Pulmicort) 0.5 mg RTBID NEB ; Start 10/31/20 at 20:00; Stop 11/01/20 at 13:52; Status DC Carvedilol (Coreg) 12.5 mg BIDWMEALS PO Last administered on 11/01/20at 08:43; Start 10/31/20 at 17:00; Stop 11/03/20 at 11:10; Status DC Dextrose (Dextrose 50%-Water Syringe) 12.5 gm PRN Q15MIN PRN IV SEE COMMENTS; Start 10/31/20 at 18:00; Status UNV Furosemide (Lasix) 40 mg 1X ONCE IVP Last administered on 11/01/20at 12:04; Start 11/01/20 at 11:45; Stop 11/01/20 at 11:46; Status DC Furosemide (Lasix) 40 mg DAILY PO ; Start 11/02/20 at 09:00; Stop 11/03/20 at 11:10; Status DC Potassium Chloride (Klor-Con) 10 meq DAILYWBKFT PO Last administered on 11/07/20at 09:08; Start 11/02/20 at 08:00; Stop 11/08/20 at 14:35; Status DC Amino Acids/ Glycerin/ Electrolytes 1,000 ml @ 80 mls/hr [id number] IV ; Start 11/01/20 at 13:00; Stop 11/01/20 at 13:00; Status DC Amino Acids/ Glycerin/ Electrolytes 1,000 ml @ 100 mls/hr Q10H IV Last administered on 11/09/20at 08:28; Start 11/01/20 at 13:30; Stop 11/09/20 at 14:40; Status DC Acetaminophen (Tylenol Supp) 650 mg PRN Q6HRS PRN NJ MILD PAIN / TEMP > 100.3'F Last administered on 11/02/20at 07:27; Start 11/02/20 at 00:00 Albuterol Sulfate (Ventolin Neb Soln) 2.5 mg PRN Q6HRS PRN NEB WHEEZING; Start 11/03/20 at 06:00 Albuterol/ Ipratropium (Duoneb) 3 ml PRN Q4HRS PRN NEB WHEEZING; Start 11/02/20 at 07:00; Stop 11/02/20 at 07:03; Status DC Lorazepam (Ativan Inj) 2 mg PRN Q4HRS PRN IVP ANXIETY / AGITATION Last administered on 11/09/20at 19:52; Start 11/02/20 at 08:30; Stop 11/10/20 at 09:16; Status DC Haloperidol Lactate (Haldol Inj) 5 mg PRN Q6HRS PRN IVP AGITATION-2ND CHOICE Last administered on 11/10/20at 23:40; Start 11/02/20 at 11:00; Stop 11/13/20 at 13:15; Status DC Labetalol HCl (Normodyne Iv Push) 20 mg PRN Q2HR PRN IVP HYPERTENSION Last a dministered on 11/12/20at 05:24; Start 11/02/20 at 11:30 Metoprolol Tartrate (Lopressor Vial) 5 mg Q6HRS IVP Last administered on 11/04/20at 05:11; Start 11/03/20 at 12:00; Stop 11/04/20 at 09:21; Status DC Furosemide (Lasix) 40 mg DAILY IVP Last administered on 11/05/20at 10:27; Start 11/03/20 at 12:00; Stop 11/06/20 at 11:34; Status DC Dexmedetomidine HCl 400 mcg/ Sodium Chloride 100 ml @ 0 mls/hr CONT PRN IV PER PROTOCOL Last administered on 11/04/20at 05:42; Start 11/03/20 at 12:00; Stop 11/13/20 at 08:16; Status DC Sodium Chloride 500 ml @ 500 mls/hr 1X PRN PRN IV SEE COMMENTS Last administered on 11/03/20at 13:34; Start 11/03/20 at 12:00; Stop 11/13/20 at 08:16; Status DC Atropine Sulfate (ATROPINE 0.5mg SYRINGE) 0.5 mg PRN Q5MIN PRN IV SEE COMMENTS; Start 11/03/20 at 12:00; Stop 11/13/20 at 08:16; Status DC Norepinephrine Bitartrate 8 mg/ Dextrose 258 ml @ 17.202 mls/ hr CONT PRN IV PER PROTOCOL Last administered on 11/04/20at 05:54; Start 11/03/20 at 13:45; Stop 11/11/20 at 10:17; Status DC Albuterol Sulfate (Ventolin Hfa) 1 puff PRN Q6HRS PRN INH SHORTNESS OF AIR Last administered on 11/04/20at 13:50; Start 11/04/20 at 13:45 Metoprolol Tartrate (Lopressor Vial) 5 mg 1X ONCE IVP Last administered on 11/04/20at 14:36; Start 11/04/20 at 14:30; Stop 11/04/20 at 14:31; Status DC Dexamethasone Sodium Phosphate (Decadron) 6 mg DAILY IVP Last administered on 11/11/20at 09:15; Start 11/05/20 at 09:00; Stop 11/11/20 at 10:17; Status DC Metoprolol Tartrate (Lopressor Vial) 5 mg Q6HRS IVP Last administered on 11/11/20at 11:00; Start 11/05/20 at 08:15; Stop 11/11/20 at 16:02; Status DC Piperacillin Sod/ Tazobactam Sod 3.375 gm/Sodium Chloride 50 ml @ 100 mls/hr Q6HRS IV Last administered on 11/06/20at 00:04; Start 11/05/20 at 12:00; Stop 11/06/20 at 09:15; Status DC Doxycycline Hyclate (Vibra-Tab) 100 mg BID PO ; Start 11/05/20 at 09:00; Stop 11/05/20 at 09:43; Status DC Sodium Chloride 1,000 ml @ 125 mls/hr CONT PRN IV ; Start 11/06/20 at 12:00 Sodium Chloride 1,000 ml @ 125 mls/hr Q8H IV Last administered on 11/06/20at 23:41; Start 11/06/20 at 16:30; Stop 11/07/20 at 10:52; Status DC Amoxicillin/ Clavulanate Potassium (Augmentin 500/ 125mg) 1 tab BID PO Last administered on 11/08/20at 09:14; Start 11/07/20 at 10:00; Stop 11/08/20 at 10:45; Status DC Polyethylene Glycol (miraLAX PACKET) 17 gm PRN DAILY PRN PO CONSTIPATION; Start 11/09/20 at 10:30 Sodium Bicarbonate 50 meq/Sodium Chloride 1,050 ml @ 100 mls/hr [id number] IV Last administered on 11/13/20at 06:20; Start 11/09/20 at 16:00; Stop 11/13/20 at 11:10; Status DC Dextrose (Dextrose 50%-Water Syringe) 25 gm 1X ONCE IV Last administered on 11/09/20at 15:06; Start 11/09/20 at 15:00; Stop 11/09/20 at 15:01; Status DC Insulin Human Lispro (HumaLOG) 10 units 1X ONCE IV ; Start 11/09/20 at 15:00; Stop 11/09/20 at 14:56; Status DC Insulin Human Regular (HumuLIN R VIAL) 10 unit 1X ONCE IV Last administered on 11/09/20at 15:13; Start 11/09/20 at 15:00; Stop 11/09/20 at 15:01; Status DC Ziprasidone (Geodon Im) 10 mg PRN QHS PRN IM ANXIETY / AGITATION; Start 11/09/20 at 22:45 Sodium Bicarbonate (Sodium Bicarb Adult 8.4% Syr) 50 meq 1X ONCE IV Last administered on 11/10/20at 07:41; Start 11/10/20 at 06:30; Stop 11/10/20 at 06:31; Status DC Dextrose (Dextrose 50%-Water Syringe) 25 gm 1X ONCE IV Last administered on 11/10/20at 07:42; Start 11/10/20 at 06:30; Stop 11/10/20 at 06:31; Status DC Insulin Human Regular (HumuLIN R VIAL) 10 unit 1X ONCE IV Last administered on 11/10/20at 07:43; Start 11/10/20 at 06:30; Stop 11/10/20 at 06:31; Status DC Sodium Polystyrene Sulfonate (Kayexalate) 30 gm 1X ONCE PO Last administered on 11/10/20at 14:02; Start 11/10/20 at 06:30; Stop 11/10/20 at 06:31; Status DC Lorazepam (Ativan Inj) 0.5 mg PRN Q4HRS PRN IVP ANXIETY / AGITATION Last administered on 11/12/20at 03:55; Start 11/10/20 at 09:15; Stop 11/13/20 at 13:12; Status DC Sodium Polystyrene Sulfonate (Kayexalate) 15 gm 1X ONCE PO Last administered on 11/10/20at 18:11; Start 11/10/20 at 19:00; Stop 11/10/20 at 19:01; Status DC Metoprolol Tartrate (Lopressor Vial) 5 mg PRN Q6HRS PRN IVP TACHYCARDIA; Start 11/11/20 at 16:15 Metoprolol Succinate (Toprol Xl) 100 mg DAILY PO Last administered on 11/13/20at 09:02; Start 11/12/20 at 09:00 Dextrose/Sodium Chloride 1,000 ml @ 75 mls/hr [id number] IV Last administered on 11/13/20at 11:51; Start 11/13/20 at 11:15 Haloperidol Lactate (Haldol Inj) 5 mg PRN Q6HRS PRN IVP AGITATION; Start 11/13/20 at 13:15 Active Scripts Active Lomotil Tablet (Diphenoxylate Hcl/Atropine) 1 Each Tablet 1 Tab PO TID 3 Days Dicyclomine Hcl 20 Mg Tablet 1 Tab PO TID 10 Days Zithromax (Azithromycin) 250 Mg Tablet 250 Mg PO DIRECTED Take 2 PO x 1 days Then take 1 PO q 24 hour for the next 4 days Doxycycline Hyclate 100 Mg Tablet 1 Tab PO BID 3 Days Culturelle (Lactobacillus Rhamnosus Gg) 1 Each Cap.sprink 1 Cap PO BID 14 Days Reported Wellbutrin Xl (Bupropion Hcl) 150 Mg Tab.er.24h 150 Mg PO DAILY Artificial Tears Drops (Peg 400/Hypromellose/Glycerin) 15 Ml Drops 1 Drop OS QID 30 Days Folic Acid 0.4 Mg Tablet 0.4 Mg PO DAILY Duoneb 0.5-3(2.5) Mg/3 Ml (Albuterol/Ipratropium) 3 Ml Ampul.neb 3 Ml NEB Q4HRS Clonidine Hcl 0.2 Mg Tablet 0.2 Mg PO TID Ativan (Lorazepam) 0.5 Mg Tablet 0.5 Mg PO Q8HRS PRN Ibuprofen 400 Mg Tablet 400 Mg PO PRN Q6HRS PRN Guaifenesin Ac Cough Syrup (Guaifenesin/Codeine Phosphate) 473 Ml Liquid 10 Ml PO PRN Q4-6HRS PRN MDD 60 Milliliter(s) 4 Days Multiple Vitamins (Multivitamin) 1 Each Tablet 1 Tab PO DAILY 30 Days Miralax (Polyethylene Glycol 3350) 17 Gm Powd.pack 1 Packet PO DAILY 2 Days dissolve in water Famotidine 20 Mg Tablet 20 Mg PO HS Zofran (Ondansetron Hcl) 4 Mg Tablet 4 Mg PO Q8HRS PRN Tramadol Hcl 50 Mg Tablet 50 Mg PO Q6HRS PRN Tears Again (Polyvinyl Alcohol) 15 Ml Drops 2 Drop EACHEYE Q4HRS 30 Days Polyvinyl Alcohol 15 Ml Drops 2 Drop EACHEYE Q4HRS 30 Days Ropinirole Hcl 1 Mg Tablet 1 Mg PO BID B-Complex Plus Vitamin C (B Complex With Vitamin C) 1 Each Tablet 1 Each PO DAILY Magnesium Oxide 400 Mg Tablet 400 Mg PO DAILY Loratadine 10 Mg Tablet 10 Mg PO DAILY Humalog (Insulin Lispro) 100 Unit/1 Ml Vial 100 Unit SQ BIDWMEALS 70 - 150 0 units 151 - 200 0 units 201 - 250 2 units 251 - 300 3 units 301 - 349 4 units if FSBS is under 70 or 350 and over call MD [guaifenesin Syrup] 10 Ml PO Q4HRS PRN Coreg (Carvedilol) 25 Mg Tablet 50 Mg PO BIDWMEALS Peridex (Chlorhexidine Gluconate) 15 Ml Mouthwash 15 Ml PO BID 30 Days Swish in mouth for 30 seconds then spit out Calcium Carbonate 500 Mg Tablet 500 Mg PO Q4HRS Atorvastatin Calcium 10 Mg Tablet 10 Mg PO HS Acetaminophen 325 Mg Tablet 650 Mg PO Q6HRS Metformin Hcl 500 Mg Tablet 250 Mg PO BIDWMEALS Imodium A-D (Loperamide HCl) 2 Mg Capsule 2 Mg PO DAILY PRN Risperidone 0.5 Mg Tablet 0.5 Mg PO DAILY Risperidone 1 Mg Tablet 1 Tab PO QHS Levothyroxine Sodium 112 Mcg Tablet 1 Tab PO DAILY Advair 500-50 Diskus (Fluticasone/Salmeterol) 1 Each Disk.w.dev 1 Puff IH BID Nystatin 15 Gm Powder 1 Scott TP PRN BID PRN Clonazepam (Clonazepam) 0.5 Mg Tablet 1 Tab PO BID Gas-X (Simethicone) 80 Mg Tab.chew 160 Mg PO Q2HR PRN Gabapentin (Gabapentin) 100 Mg Capsule 100 Mg PO TID Allergies Allergies: Coded Allergies: lactose (Verified Allergy, Intermediate, 02/25/16) lisinopril (Verified Allergy, Intermediate, 08/08/15) Physical Exam Physical Exam CHEST: Full expansion. LUNGS: Scattered rhonchi, no wheezes. CARDIOVASCULAR: Regular rate and rhythm with S1, S2, no S3. ABDOMEN: Soft, nontender. EXTREMITIES: No clubbing, cyanosis. Minimal edema. NEUROLOGICAL: The patient sedated. Vitals VITALS Vital Signs Date Time Temp Pulse Resp B/P (MAP) Pulse Ox O2 Delivery O2 Flow Rate FiO2 11/13/20 11:00 97.0 72 17 148/80 (102) 98 Nasal Cannula 3.0 97.0 Labs Labs Laboratory Tests Test 11/11/20 16:23 11/12/20 05:00 11/12/20 07:59 11/12/20 11:11 Glucose (Fingerstick) 152 mg/dL (70-99) 74 mg/dL (70-99) 118 mg/dL (70-99) Sodium Level 137 mmol/L (136-145) Potassium Level 4.5 mmol/L (3.5-5.1) Chloride Level 102 mmol/L (98-107) Carbon Dioxide Level 33 mmol/L (21-32) Anion Gap 2 (6-14) Blood Urea Nitrogen 48 mg/dL (7-20) Creatinine 2.4 mg/dL (0.6-1.0) Estimated GFR (Cockcroft-Gault) 25.0 Glucose Level 80 mg/dL (70-99) Calcium Level 8.2 mg/dL (8.5-10.1) Test 11/12/20 16:42 11/12/20 20:51 11/13/20 05:30 11/13/20 08:00 Glucose (Fingerstick) 106 mg/dL (70-99) 104 mg/dL (70-99) 88 mg/dL (70-99) Sodium Level 138 mmol/L (136-145) Potassium Level 4.7 mmol/L (3.5-5.1) Chloride Level 102 mmol/L (98-107) Carbon Dioxide Level 36 mmol/L (21-32) Anion Gap 0 (6-14) Blood Urea Nitrogen 43 mg/dL (7-20) Creatinine 2.7 mg/dL (0.6-1.0) Estimated GFR (Cockcroft-Gault) 21.8 Glucose Level 95 mg/dL (70-99) Calcium Level 8.4 mg/dL (8.5-10.1) Test 11/13/20 11:47 Glucose (Fingerstick) 123 mg/dL (70-99) Laboratory Tests Test 11/12/20 16:42 11/12/20 20:51 11/13/20 05:30 11/13/20 08:00 Glucose (Fingerstick) 106 mg/dL (70-99) 104 mg/dL (70-99) 88 mg/dL (70-99) Sodium Level 138 mmol/L (136-145) Potassium Level 4.7 mmol/L (3.5-5.1) Chloride Level 102 mmol/L (98-107) Carbon Dioxide Level 36 mmol/L (21-32) Anion Gap 0 (6-14) Blood Urea Nitrogen 43 mg/dL (7-20) Creatinine 2.7 mg/dL (0.6-1.0) Estimated GFR (Cockcroft-Gault) 21.8 Glucose Level 95 mg/dL (70-99) Calcium Level 8.4 mg/dL (8.5-10.1) Test 11/13/20 11:47 Glucose (Fingerstick) 123 mg/dL (70-99) Assessment/Plan Assessment/Plan Assessment: 60y F admitted for altered mental status Recommendations: 1.) Postmenopausal bleeding Although I cannot gather her age of menopause, it is likely that she was prior to admission since the average age is 52yo. The greatest concern with PMB is endometrial CA, although not the most likely cause. An ultrasound should be able to exclude endometrial CA if she is found to have a thin endometrial lining (?4 mm). Since she is not bleeding heavy this test does not need to be performed until she is out of the ICU. Also with the amt of bleeding she is having it is not necessary to hold ASA and Heparin. 2.) COVID Positive 3.) Blood cultures positive 4.) Sepsis - resolved Acute hypoxemic hypercapnic respiratory failure extubated 10/31 5.) Acute on chronic systolic heart failure 6.) H/o CA 7.) Cardiomyopathy - EF of 45%. 8.) A-fib - h/o pacemaker 9.) UTI 10.) Anemia Hgb 9.6 11.) Thrombocytopenia resolved, last 227 12.) YULIYA Cr 2.7 13.) Acute metabolic toxic encephalopathy 14.) Schizoaffective disorder 15.) Will cont to follow ASHLYN ROTH MD Nov 13, 2020 14:51
[2020-11-13 15:00] VITALS: BP 147/79
--- NOTE | 2020-11-13 16:48 | NUR ---
Noon and 1400 PO meds held d/t pt too drowsy and unable to follow nurse's direction to swallow.
[2020-11-13 19:00] VITALS: BP 146/90
[2020-11-13] MEDS: risperiDONE 1 MG TABLET. PO SCH (21:18)
[2020-11-13] MEDS: ATORVASTATIN CALCIUM 10 MG TABLET. PO SCH (21:18)
[2020-11-13] MEDS: FAMOTIDINE 20 MG TABLET. PO SCH (21:18)
[2020-11-13 22:48] VITALS: BP 150/79
[2020-11-14 03:00] VITALS: BP 164/82
[2020-11-14] MEDS: POLYVINYL ALCOHOL 1.4% OPHTH SOLUTION 15ML BOTTLE. OU SCH ×6 (04:00→23:57)
[2020-11-14] MEDS: CALCIUM CARBONATE 500 MG TABLET PO SCH ×6 (04:00→23:57)
[2020-11-14] MEDS: LEVOTHYROXINE 112 MCG TABLET PO SCH (05:35)
[2020-11-14] MEDS: ACETAMINOPHEN 325 MG TABLET. PO SCH ×4 (05:35→23:57)
[2020-11-14] MEDS: HEPARIN for SUB-Q USE 5,000 UNIT/ML VIAL. SQ SCH ×3 (05:36→20:52)
[2020-11-14 06:20] LABS: ALBUMIN 1.5 g/dL (3.4-5.0); ALBUMIN/GLOBULIN RATIO 0.4 (1.0-1.7); CALCIUM 8.1 mg/dL (8.5-10.1); CREATININE 2.6 mg/dL (0.6-1.0); GFR 22.8; POTASSIUM 4.4 mmol/L (3.5-5.1); TOTAL BILIRUBIN 0.2 mg/dL (0.2-1.0); TOTAL PROTEIN 5.4 g/dL (6.4-8.2)
[2020-11-14 07:00] VITALS: BP 145/104
[2020-11-14] MEDS: INSULIN LISPRO 300 UNITS/3 ML VIAL. SQ SCH ×3 (08:00→17:00)
[2020-11-14] MEDS: LACTOBACILLUS RHAMNOSUS GG 1 CAPSULE. PO SCH ×2 (08:20→20:49)
[2020-11-14] MEDS: buPROPion XL 150 MG TAB.ER.24H. PO SCH (08:20)
[2020-11-14] MEDS: CETIRIZINE HCL 10 MG TABLET. PO SCH (08:20)
[2020-11-14] MEDS: METOPROLOL SUCC 24HR ER 100 MG TAB.ER.24H. PO SCH (08:21)
[2020-11-14] MEDS: VITAMIN B COMPLEX TABLET. PO SCH (08:21)
[2020-11-14] MEDS: GABAPENTIN 100 MG CAPSULE. PO SCH ×3 (08:21→20:49)
[2020-11-14] MEDS: ASPIRIN CHEWABLE 81 MG TABLET. PO SCH (08:21)
[2020-11-14] MEDS: MAGNESIUM OXIDE 400 MG TABLET PO SCH (08:22)
[2020-11-14] MEDS: rOPINIRole 1 MG TABLET. PO SCH (08:22)
[2020-11-14] MEDS: MULTIVITAMIN with MINERAL TABLET. PO SCH (08:22)
[2020-11-14] MEDS: DICYCLOMINE HCL 10 MG CAPSULE PO SCH ×3 (08:22→20:49)
[2020-11-14] MEDS: FOLIC ACID 1 MG TABLET. PO SCH (08:22)
[2020-11-14] MEDS: DIPHENOXYLATE/ATROPINE TABLET. PO SCH ×3 (08:26→20:52)
[2020-11-14] MEDS: cloNIDine HCL 0.2 MG TABLET PO SCH ×3 (08:26→20:49)
--- NOTE | 2020-11-14 09:45 | PDOC ---
CUSTOMER ADVOCACY MANAGER PROGRESS NOTE Date of Service: DATE: 11/14/20 TIME: 09:44 Subjective: Pt able to communicate today, but still confused. When asked what was the age of her last period, they pt replied 60yo (her current age) Objective: Vital Signs: Vital Signs Date Time Temp Pulse Resp B/P (MAP) Pulse Ox O2 Delivery O2 Flow Rate FiO2 11/13/20 07:00 98.0 81 16 169/93 (118) 99 Nasal Cannula 3.0 98.0 Vital Signs Date Time Temp Pulse Resp B/P (MAP) Pulse Ox O2 Delivery O2 Flow Rate FiO2 11/14/20 08:26 75 145/104 11/14/20 07:00 96.8 20 96 Nasal Cannula 3.0 96.8 Labs: Laboratory Tests Test 11/13/20 11:47 11/13/20 20:06 11/14/20 05:30 Glucose (Fingerstick) 123 mg/dL (70-99) H 159 mg/dL (70-99) H Sodium Level 139 mmol/L (136-145) Potassium Level 4.4 mmol/L (3.5-5.1) Chloride Level 103 mmol/L (98-107) Carbon Dioxide Level 35 mmol/L (21-32) H Anion Gap 1 (6-14) L Blood Urea Nitrogen 34 mg/dL (7-20) H Creatinine 2.6 mg/dL (0.6-1.0) H Estimated GFR (Cockcroft-Gault) 22.8 BUN/Creatinine Ratio 13 (6-20) Glucose Level 122 mg/dL (70-99) H Calcium Level 8.1 mg/dL (8.5-10.1) L Total Bilirubin 0.2 mg/dL (0.2-1.0) Aspartate Amino Transferase (AST) 38 U/L (15-37) H Alanine Aminotransferase (ALT) 18 U/L (14-59) Alkaline Phosphatase 76 U/L (46-116) Total Protein 5.4 g/dL (6.4-8.2) L Albumin 1.5 g/dL (3.4-5.0) L Albumin/Globulin Ratio 0.4 (1.0-1.7) L Laboratory Tests 11/14/20 05:30 Laboratory Tests 11/14/20 05:30 Physical Exam: CHEST: Full expansion. LUNGS: Scattered rhonchi, no wheezes. CARDIOVASCULAR: Regular rate and rhythm with S1, S2, no S3. ABDOMEN: Soft, nontender. EXTREMITIES: No clubbing, cyanosis. Minimal edema. NEUROLOGICAL: The patient sedated. Assessment & Plan: A/P 60y F admitted for altered mental status 1.) Postmenopausal bleeding Pelvic u/s ordered to r/o thickened endometrium. Consider performing after neg covid to decrease risk of exposure to radiology department. 2.) COVID Positive possible retest today 3.) Blood cultures positive 4.) Sepsis - resolved 5.) Acute hypoxemic hypercapnic respiratory failure extubated 10/31 6.) Acute on chronic systolic heart failure 7.) H/o [place] 8.) Cardiomyopathy - EF of 45%. 9.) A-fib - h/o pacemaker 10.) UTI 11.) Anemia Hgb 9.6 12.) Thrombocytopenia resolved, last 227 13.) YULIYA Cr 2.7, nephrology consulted 14.) Acute metabolic toxic encephalopathy 15.) Schizoaffective disorder 16.) Will cont to follow ASHLYN ROTH MD Nov 14, 2020 09:45
--- NOTE | 2020-11-14 09:55 | NUR ---
SS following up with discharge planning. SS reviewed pt chart and discussed with pt RN. Pt is currently requiring oxygen at three liters nasal canula. COVID19 positive. Pt having pelvic ultrasound. Currently awaiting Nephrology to sign off. Possible discharge back to [facility], ; fax [phone], today if specialists sign off. SS phoned and faxed clinical updates to [facility]. SS will continue to follow for discharge planning.
--- NOTE | 2020-11-14 10:52 | PDOC ---
DATE OF SERVICE DATE: 11/14/20 TIME: 10:47 SUBJECTIVE ROS Stable,appetite better OBJECTIVE Vital Signs Vital Signs Date Time Temp Pulse Resp B/P (MAP) Pulse Ox O2 Delivery O2 Flow Rate FiO2 11/14/20 08:26 75 145/104 11/14/20 08:00 Nasal Cannula 3.0 11/14/20 07:00 96.8 20 96 96.8 I & 0 Intake and Output 11/14/20 07:00 Intake Total 1437 ml Output Total 1900 ml Balance -463 ml Intake Oral 120 ml IV Total 1317 ml Output Urine Total 1900 ml PHYSICAL EXAM Physical Exam General Appearance: no apparent distress HEEN OM moist Skin: no rash Respiratory: decreased breath sounds Heart: S1S2 Abdomen: soft, obese bowel sounds present Genitourinary: Hutchins + Extremities: no edema Neurology: stable DIAGNOSIS/ASSESSMENT Assessment & Plan JACKIE-ATN- improving Switched to D5 1/2 NS on 11/13 , continue IVF, strict I/O UOP adequate avoid nephrotoxins, Dw RN CKD stage 2/3 CHF compensated / CM with EF 45% COVID Positive Acute hypoxemic hypercapnic respiratory failure- extubated Blood cultures positive AICD in UTI COMMENT/RELEVANT DATA Meds Current Medications Medications (Trade) Dose Ordered Sig/Eber Start Time Stop Time Status Last Admin Dose Admin Acetaminophen (Tylenol Supp) 650 mg PRN Q6HRS PRN 11/02/20 00:00 11/02/20 07:27 650 MG Acetaminophen (Tylenol) 650 mg Q6HRS 10/31/20 12:00 11/14/20 05:35 650 MG Albuterol Sulfate (Ventolin Hfa) 1 puff PRN Q6HRS PRN 11/04/20 13:45 11/04/20 13:50 1 PUFF Albuterol Sulfate (Ventolin Neb Soln) 2.5 mg PRN Q6HRS PRN 11/03/20 06:00 Albuterol/ Ipratropium (Duoneb) 3 ml PRN Q4HRS PRN 11/02/20 07:00 11/02/20 07:03 DC Amino Acids/ Glycerin/ Electrolytes 1,000 ml @ 100 mls/hr Q10H 11/01/20 13:30 11/09/20 14:40 DC 11/09/20 08:28 100 MLS/HR Amoxicillin/ Clavulanate Potassium (Augmentin 500/ 125mg) 1 tab BID 11/07/20 10:00 11/08/20 10:45 DC 11/08/20 09:14 1 TAB Aspirin (Aspirin Chewable) 81 mg [id number] 10/31/20 08:00 11/14/20 08:21 81 MG Atorvastatin Calcium (Lipitor) 10 mg HS 10/31/20 21:00 11/13/20 21:18 10 MG Atropine Sulfate (ATROPINE 0.5mg SYRINGE) 0.5 mg PRN Q5MIN PRN 11/03/20 12:00 11/13/20 08:16 DC Budesonide (Pulmicort) 0.5 mg RTBID 10/31/20 20:00 11/01/20 13:52 DC Bupropion HCl (Wellbutrin Xl) 150 mg DAILY 10/31/20 12:00 11/14/20 08:20 150 MG Calcium Carbonate/ Glycine (Oscal) 500 mg Q4HRS 10/31/20 12:00 11/14/20 08:21 500 MG Carvedilol (Coreg) 12.5 mg BIDWMEALS 10/31/20 17:00 11/03/20 11:10 DC 11/01/20 08:43 12.5 MG Cetirizine HCl (ZyrTEC) 10 mg DAILY 11/01/20 09:00 11/14/20 08:20 10 MG Clonazepam (KlonoPIN) 0.5 mg BID 10/31/20 12:00 11/13/20 13:12 DC 11/13/20 09:03 0.5 MG Clonidine HCl (Catapres) 0.2 mg TID 10/31/20 12:00 11/14/20 08:26 0.2 MG Dexamethasone Sodium Phosphate (Decadron) 6 mg DAILY 11/05/20 09:00 11/11/20 10:17 DC 11/11/20 09:15 6 MG Dexmedetomidine HCl 400 mcg/ Sodium Chloride 100 ml @ 0 mls/hr CONT PRN 11/03/20 12:00 11/13/20 08:16 DC 11/04/20 05:42 22.1 MLS/HR Dextrose (Dextrose 50%-Water Syringe) 25 gm 1X ONCE 11/10/20 06:30 11/10/20 06:31 DC 11/10/20 07:42 25 GM Dextrose/Sodium Chloride 1,000 ml @ 75 mls/hr [id number] 11/13/20 11:15 11/13/20 23:30 75 MLS/HR Dicyclomine HCl (Bentyl) 20 mg TID 10/31/20 14:00 11/14/20 08:22 20 MG Diphenoxylate HCl/ Atropine (Lomotil) 1 tab TID 10/31/20 14:00 11/14/20 08:26 1 TAB Doxycycline Hyclate (Vibra-Tab) 100 mg BID 11/05/20 09:00 11/05/20 09:43 DC Enoxaparin Sodium (Lovenox 120mg Syringe) 110 mg 1X ONCE 10/30/20 06:15 10/30/20 06:16 DC 10/30/20 06:27 110 MG Etomidate (Amidate) 20 mg STK-MED ONCE 10/30/20 10:43 10/30/20 10:43 DC Famotidine (Pepcid) 20 mg HS 10/31/20 21:00 11/13/20 21:18 20 MG Fentanyl Citrate (Fentanyl 2ml Vial) 50 mcg PRN Q2HR PRN 10/31/20 07:45 10/31/20 20:08 50 MCG Folic Acid (Folic Acid) 0.5 mg DAILY 10/31/20 12:00 11/14/20 08:22 0.5 MG Furosemide (Lasix) 40 mg DAILY 11/03/20 12:00 11/06/20 11:34 DC 11/05/20 10:27 40 MG Gabapentin (Neurontin) 100 mg TID 10/31/20 14:00 11/14/20 08:21 100 MG Glycerin/ Hypromellose/ Polyethylene (Artificial Tears) 2 drop Q4HRS 10/31/20 16:00 11/14/20 08:20 2 DROP Guaifenesin (Robitussin) 200 mg PRN Q4HRS PRN 10/31/20 12:45 11/10/20 21:24 200 MG Haloperidol Lactate (Haldol Inj) 5 mg PRN Q6HRS PRN 11/13/20 13:15 Heparin Sodium (Porcine) (Heparin Sodium) 5,000 unit Q8HRS 10/30/20 22:00 11/14/20 05:36 5,000 UNIT Ibuprofen (Motrin) 400 mg PRN Q6HRS PRN 10/31/20 11:15 Insulin Human Lispro (HumaLOG) 10 units 1X ONCE 11/09/20 15:00 11/09/20 14:56 DC Insulin Human Regular (HumuLIN R VIAL) 10 unit 1X ONCE 11/10/20 06:30 11/10/20 06:31 DC 11/10/20 07:43 10 UNIT Labetalol HCl (Normodyne Iv Push) 20 mg PRN Q2HR PRN 11/02/20 11:30 11/12/20 05:24 20 MG Lactobacillus Rhamnosus (Culturelle) 1 cap BID 10/31/20 12:00 11/14/20 08:20 1 CAP Levothyroxine Sodium (Synthroid) 112 mcg DAILY06 11/01/20 09:00 11/14/20 05:35 112 MCG Loperamide HCl (Imodium) 2 mg PRN DAILY PRN 10/31/20 11:15 11/07/20 09:53 2 MG Lorazepam (Ativan Inj) 0.5 mg PRN Q4HRS PRN 11/10/20 09:15 11/13/20 13:12 DC 11/12/20 03:55 0.5 MG Lorazepam (Ativan) 0.5 mg PRN Q8HRS PRN 10/31/20 11:15 11/10/20 14:03 0.5 MG Magnesium Oxide (Magnesium Oxide) 400 mg DAILY 10/31/20 12:00 11/14/20 08:22 400 MG Metformin HCl (Glucophage) 250 mg BIDWMEALS 10/31/20 17:00 11/08/20 08:58 DC 11/07/20 17:25 250 MG Metoprolol Succinate (Toprol Xl) 100 mg DAILY 11/12/20 09:00 11/14/20 08:21 100 MG Metoprolol Tartrate (Lopressor Vial) 5 mg PRN Q6HRS PRN 11/11/20 16:15 Midazolam HCl 100 mg/Sodium Chloride 100 ml @ 0 mls/hr ONCE ONCE 10/30/20 06:45 10/30/20 06:46 DC 10/30/20 07:10 1 MLS/HR Multivitamins (Thera M Plus) 1 tab DAILY 10/31/20 12:30 11/14/20 08:22 1 TAB Non-Formulary Medication (Fluticasone/ Salmeterol (Advair 500-50 Diskus)) 1 puff BID 10/31/20 21:00 UNV Non-Formulary Medication (Peg 400/ Hypromellose/ Glycerin (Artificial Tears Drops)) 1 drop QID 10/31/20 13:00 UNV Non-Formulary Medication (Polyvinyl Alcohol (Tears Again)) 2 drop Q4HRS 10/31/20 12:00 UNV Non-Formulary Medication (Risperidone ) 0.5 mg DAILY 11/01/20 09:00 UNV Norepinephrine Bitartrate 8 mg/ Dextrose 258 ml @ 17.202 mls/ hr CONT PRN 11/03/20 13:45 11/11/20 10:17 DC 11/04/20 05:54 8.3 MLS/HR Nystatin (Nystop) 1 luis PRN BID PRN 10/31/20 11:15 11/14/20 08:19 1 LUIS Ondansetron HCl (Zofran Odt) 4 mg PRN Q8HRS PRN 10/31/20 12:30 Ondansetron HCl (Zofran) 4 mg PRN Q8HRS PRN 10/30/20 06:00 10/31/20 05:59 DC Piperacillin Sod/ Tazobactam Sod (Zosyn Per Pharmacy) 1 each PRN DAILY PRN 10/30/20 06:00 11/06/20 11:03 DC Piperacillin Sod/ Tazobactam Sod 3.375 gm/Sodium Chloride 50 ml @ 100 mls/hr Q6HRS 11/05/20 12:00 11/06/20 09:15 DC 11/06/20 00:04 100 MLS/HR Piperacillin Sod/ Tazobactam Sod 4.5 gm/Sodium Chloride 100 ml @ 200 mls/hr Q6HRS 10/30/20 12:00 11/04/20 09:59 DC 11/04/20 05:10 200 MLS/HR Polyethylene Glycol (miraLAX PACKET) 17 gm PRN DAILY PRN 11/09/20 10:30 Potassium Bicarbonate (Potassium Effervescent Tablet) 80 meq 1X ONCE 10/31/20 09:45 10/31/20 09:46 DC 10/31/20 13:20 80 MEQ Potassium Chloride (Klor-Con) 10 meq [id number] 11/02/20 08:00 11/08/20 14:35 DC 11/07/20 09:08 10 MEQ Propofol 100 ml @ 3.408 mls/ hr CONT PRN 10/30/20 09:00 11/13/20 08:16 DC 10/31/20 12:07 3.408 MLS/HR Risperidone (RisperDAL) 1 mg QHS 10/31/20 21:00 11/13/20 21:18 1 MG Ropinirole HCl (Requip) 2 mg DAILY 11/01/20 09:00 11/14/20 08:22 2 MG Simethicone (Gas-X) 160 mg PRN Q2HR PRN 10/31/20 12:00 11/06/20 17:23 160 MG Sodium Bicarbonate 50 meq/Sodium Chloride 1,050 ml @ 100 mls/hr [id number] 11/09/20 16:00 11/13/20 11:10 DC 11/13/20 06:20 100 MLS/HR Sodium Polystyrene Sulfonate (Kayexalate) 15 gm 1X ONCE 11/10/20 19:00 11/10/20 19:01 DC 11/10/20 18:11 15 GM Sodium Bicarbonate (Sodium Bicarb Adult 8.4% Syr) 50 meq 1X ONCE 11/10/20 06:30 11/10/20 06:31 DC 11/10/20 07:41 50 MEQ Sodium Chloride 1,000 ml @ 125 mls/hr Q8H 11/06/20 16:30 11/07/20 10:52 DC 11/06/20 23:41 125 MLS/HR Succinylcholine Chloride (Anectine) 200 mg STK-MED ONCE 10/30/20 10:43 10/30/20 10:44 DC Tramadol HCl (Ultram) 50 mg PRN Q6HRS PRN 10/31/20 11:15 Vancomycin HCl (Vanco Per Pharmacy) 1 each PRN DAILY PRN 10/30/20 11:00 10/31/20 11:11 DC 10/31/20 09:51 1 EACH Vancomycin HCl (Vancomycin Trough Level) 1 each 1X ONCE 11/01/20 12:30 10/31/20 13:36 DC Vancomycin HCl 1.75 gm/Sodium Chloride 500 ml @ 250 mls/hr Q24H 10/31/20 13:00 10/31/20 11:11 DC Vitamin B Complex (Dustin B) 1 tab DAILY 10/31/20 12:00 11/14/20 08:21 1 TAB Ziprasidone (Geodon Im) 10 mg PRN QHS PRN 11/09/20 22:45 Lab Laboratory Tests Test 11/13/20 11:47 11/13/20 20:06 11/14/20 05:30 Glucose (Fingerstick) 123 mg/dL (70-99) 159 mg/dL (70-99) Sodium Level 139 mmol/L (136-145) Potassium Level 4.4 mmol/L (3.5-5.1) Chloride Level 103 mmol/L (98-107) Carbon Dioxide Level 35 mmol/L (21-32) Anion Gap 1 (6-14) Blood Urea Nitrogen 34 mg/dL (7-20) Creatinine 2.6 mg/dL (0.6-1.0) Estimated GFR (Cockcroft-Gault) 22.8 BUN/Creatinine Ratio 13 (6-20) Glucose Level 122 mg/dL (70-99) Calcium Level 8.1 mg/dL (8.5-10.1) Total Bilirubin 0.2 mg/dL (0.2-1.0) Aspartate Amino Transf (AST/SGOT) 38 U/L (15-37) Alanine Aminotransferase (ALT/SGPT) 18 U/L (14-59) Alkaline Phosphatase 76 U/L (46-116) Total Protein 5.4 g/dL (6.4-8.2) Albumin 1.5 g/dL (3.4-5.0) Albumin/Globulin Ratio 0.4 (1.0-1.7) Results All relevant outside records, renal labs, imaging studies, telemetry/EKG's were reviewed. Justicifation of Admission Dx: Justifications for Admission: Justification of Admission Dx: Yes SARAHI SORENSEN MD Nov 14, 2020 10:51
[2020-11-14 11:00] VITALS: BP 147/77
[2020-11-14] MEDS: IV DEXTROSE 5 %-0.45 % NACL 1,000 ML IV SCH ×2 (13:01→20:55)
--- NOTE | 2020-11-14 13:11 | RAD ---
US PRE HYSTEROSALPINGOGRAM History: Reason: postmenopausal bleeding/COVID POSITIVE / Spl. Instructions: / History: Comparison: None Technique: Grayscale and color Doppler imaging of the pelvis was performed using transabdominal tech nique. Findings: The uterus measures 9.0 x 7.7 x 5.6 cm. Several heterogeneous lesions within the uterus largest lynn uring 4.6 x 3.4 cm and 4.0 x 3.3 cm. The endometrial stripe measures 10 mm. Bilateral ovaries not identified due to positioning and overlying structures. No adnexal masses are s een. No free fluid. IMPRESSION: 1. Thickened endometrium, may relate to endometrial hyperplasia although endometrial carcinoma is po ssible. Recommend further clinical evaluation and biopsy if indicated. 2. Several uterine masses, likely fibroids. Electronically signed by: Wilfredo Nagel DO (11/14/2020 1:09 PM) [id number]
--- NOTE | 2020-11-14 14:00 | PDOC ---
PULMONARY PROGRESS NOTES DATE: 11/14/20 TIME: 13:58 Subjective extubated on 10/31 on 3liters N/C alert and awake today having vaginal bleeding again today per RN no other concerns from nursing Vitals Vital Signs Date Time Temp Pulse Resp B/P (MAP) Pulse Ox O2 Delivery O2 Flow Rate FiO2 11/14/20 12:59 66 147/77 11/14/20 11:00 95.8 18 99 Nasal Cannula 3.0 95.8 Comments visual exam done due to COVID-19 pandemic RRR Lethargic N/C No edema ROS: No Nausea, No Chest Pain, No Abdominal Pain, No Increase Cough Labs Laboratory Tests Test 11/12/20 16:42 11/12/20 20:51 11/13/20 05:30 11/13/20 08:00 Glucose (Fingerstick) 106 mg/dL (70-99) 104 mg/dL (70-99) 88 mg/dL (70-99) Sodium Level 138 mmol/L (136-145) Potassium Level 4.7 mmol/L (3.5-5.1) Chloride Level 102 mmol/L (98-107) Carbon Dioxide Level 36 mmol/L (21-32) Anion Gap 0 (6-14) Blood Urea Nitrogen 43 mg/dL (7-20) Creatinine 2.7 mg/dL (0.6-1.0) Estimated GFR (Cockcroft-Gault) 21.8 Glucose Level 95 mg/dL (70-99) Calcium Level 8.4 mg/dL (8.5-10.1) Test 11/13/20 11:47 11/13/20 20:06 11/14/20 05:30 11/14/20 08:07 Glucose (Fingerstick) 123 mg/dL (70-99) 159 mg/dL (70-99) 123 mg/dL (70-99) Sodium Level 139 mmol/L (136-145) Potassium Level 4.4 mmol/L (3.5-5.1) Chloride Level 103 mmol/L (98-107) Carbon Dioxide Level 35 mmol/L (21-32) Anion Gap 1 (6-14) Blood Urea Nitrogen 34 mg/dL (7-20) Creatinine 2.6 mg/dL (0.6-1.0) Estimated GFR (Cockcroft-Gault) 22.8 BUN/Creatinine Ratio 13 (6-20) Glucose Level 122 mg/dL (70-99) Calcium Level 8.1 mg/dL (8.5-10.1) Total Bilirubin 0.2 mg/dL (0.2-1.0) Aspartate Amino Transf (AST/SGOT) 38 U/L (15-37) Alanine Aminotransferase (ALT/SGPT) 18 U/L (14-59) Alkaline Phosphatase 76 U/L (46-116) Total Protein 5.4 g/dL (6.4-8.2) Albumin 1.5 g/dL (3.4-5.0) Albumin/Globulin Ratio 0.4 (1.0-1.7) Test 11/14/20 11:44 Glucose (Fingerstick) 178 mg/dL (70-99) Laboratory Tests Test 11/13/20 20:06 11/14/20 05:30 11/14/20 08:07 11/14/20 11:44 Glucose (Fingerstick) 159 mg/dL (70-99) 123 mg/dL (70-99) 178 mg/dL (70-99) Sodium Level 139 mmol/L (136-145) Potassium Level 4.4 mmol/L (3.5-5.1) Chloride Level 103 mmol/L (98-107) Carbon Dioxide Level 35 mmol/L (21-32) Anion Gap 1 (6-14) Blood Urea Nitrogen 34 mg/dL (7-20) Creatinine 2.6 mg/dL (0.6-1.0) Estimated GFR (Cockcroft-Gault) 22.8 BUN/Creatinine Ratio 13 (6-20) Glucose Level 122 mg/dL (70-99) Calcium Level 8.1 mg/dL (8.5-10.1) Total Bilirubin 0.2 mg/dL (0.2-1.0) Aspartate Amino Transf (AST/SGOT) 38 U/L (15-37) Alanine Aminotransferase (ALT/SGPT) 18 U/L (14-59) Alkaline Phosphatase 76 U/L (46-116) Total Protein 5.4 g/dL (6.4-8.2) Albumin 1.5 g/dL (3.4-5.0) Albumin/Globulin Ratio 0.4 (1.0-1.7) Medications Active Scripts Medications Dose Route/Sig Max Daily Dose Days Date Category Dose Instructions Lomotil Tablet (Diphenoxylate Hcl/Atropine) 1 Each Tablet 1 Tab PO TID 3 10/28/20 Rx Dicyclomine Hcl 20 Mg Tablet 1 Tab PO TID 10 10/28/20 Rx Zithromax (Azithromycin) 250 Mg Tablet 250 Mg PO DIRECTED 10/28/20 Rx Take 2 PO x 1 days Then take 1 PO q 24 hour for the next 4 days Doxycycline Hyclate 100 Mg Tablet 1 Tab PO BID 3 12/04/19 Rx Culturelle (Lactobacillus Rhamnosus Gg) 1 Each Cap.sprink 1 Cap PO BID 14 12/04/19 Rx Zofran (Ondansetron Hcl) 4 Mg Tablet 4 Mg PO Q8HRS PRN 12/02/19 Reported Tramadol Hcl 50 Mg Tablet 50 Mg PO Q6HRS PRN 12/02/19 Reported Tears Again (Polyvinyl Alcohol) 15 Ml Drops 2 Drop EACHEYE Q4HRS 30 12/02/19 Reported Polyvinyl Alcohol 15 Ml Drops 2 Drop EACHEYE Q4HRS 30 12/02/19 Reported Ropinirole Hcl 1 Mg Tablet 1 Mg PO BID 12/02/19 Reported Pantoprazole Sodium (Pantoprazole Sodium) 40 Mg Tablet.dr 40 Mg PO DAILYAC 12/02/19 Reported B-Complex Plus Vitamin C (B Complex With Vitamin C) 1 Each Tablet 1 Each PO DAILY 12/02/19 Reported Magnesium Oxide 400 Mg Tablet 400 Mg PO DAILY 12/02/19 Reported Loratadine 10 Mg Tablet 10 Mg PO DAILY 12/02/19 Reported Ketotifen Fumarate 5 Ml Drops 1 Drop EACHEYE BID 12/02/19 Reported Humalog (Insulin Lispro) 100 Unit/1 Ml Vial 100 Unit SQ BIDWMEALS 12/02/19 Reported 70 - 150 0 units 151 - 200 0 units 201 - 250 2 units 251 - 300 3 units 301 - 349 4 units if FSBS is under 70 or 350 and over call MD [guaifenesin Syrup] 10 Ml PO Q4HRS PRN 12/02/19 Reported Mucinex (Guaifenesin) 600 Mg Tablet.er 600 Mg PO BID 12/02/19 Reported Coreg (Carvedilol) 25 Mg Tablet 50 Mg PO BIDWMEALS 12/02/19 Reported Peridex (Chlorhexidine Gluconate) 15 Ml Mouthwash 15 Ml PO BID 30 12/02/19 Reported Swish in mouth for 30 seconds then spit out Calcium Carbonate 500 Mg Tablet 500 Mg PO Q4HRS 12/02/19 Reported Atorvastatin Calcium 10 Mg Tablet 10 Mg PO HS 12/02/19 Reported Acetaminophen 325 Mg Tablet 650 Mg PO Q6HRS 12/02/19 Reported Metformin Hcl 500 Mg Tablet 250 Mg PO BIDWMEALS 12/03/18 Reported Imodium A-D (Loperamide HCl) 2 Mg Capsule 2 Mg PO DAILY PRN 12/03/18 Reported Risperidone 0.5 Mg Tablet 0.5 Mg PO DAILY 03/21/18 Reported Risperidone 1 Mg Tablet 1 Tab PO QHS 03/21/18 Reported Levothyroxine Sodium 112 Mcg Tablet 1 Tab PO DAILY 03/21/18 Reported Advair 500-50 Diskus (Fluticasone/Salmeterol) 1 Each Disk.w.dev 1 Puff IH BID 03/21/18 Reported Nystatin 15 Gm Powder 1 Scott TP PRN BID PRN 03/21/18 Reported Clonazepam (Clonazepam) 0.5 Mg Tablet 1 Tab PO BID 09/30/16 Reported Montelukast Sodium Tablet (Montelukast Sodium) 10 Mg Tablet 1 Tab PO HS 02/18/16 Reported Gas-X (Simethicone) 80 Mg Tab.chew 160 Mg PO Q2HR PRN 02/18/16 Reported Gabapentin (Gabapentin) 100 Mg Capsule 100 Mg PO TID 02/18/[address] chest 1. Cardiomegaly. 2. Increased consolidative opacities in the left lung and scattered groundglass opacities in the right lung are suspicious for pneumonia. Some of the opacities in the left upper lobe are chronic scarring or atelectasis present on prior exam. 3. New trace bilateral pleural effusions. No large or drainable pleural effusion. Electronically signed by: Renetta Edouard MD (11/04/2020 4:07 PM) [id number] U/S IMPRESSION: 1. Thickened endometrium, may relate to endometrial hyperplasia although endometrial carcinoma is possible. Recommend further clinical evaluation and biopsy if indicated. 2. Several uterine masses, likely fibroids. Impression . IMPRESSION: 1. Acute on chronic hypoxemic hypercapnic respiratory failure, extubated ., Has been restless on/off. received ativan night of 11/09/ increase hypoxia/ on BIPAP/ 60%, now more awake, off BIPAP 2. Abnormal x-ray compatible with acute on chronic congestive heart failure,/ COVID-19. 3. Abnormal ct chest c/w COVID-19 PNEUMONIA/ ? BACTERIAL PNA 4. COVID-19 5. Acute metabolic toxic encephalopathy. 6. History of status post pacemaker defibrillator implantation. 7. Restless legs syndrome. 8. Schizoaffective disorder. 9. Acute on chronic systolic heart failure. 9. Non-ST segment elevation myocardial infarction. 10. Cardiomyopathy, ejection fraction on 11/2019 revealed EF of 45%. 11. Atrial fibrillation with V paced, currently underlying sinus rhythm. 12. Hyperlipidemia. 13. Hypothyroidism. 14. Fever, rule out bacteremia. 15. Sepsis.resolved 16. JACKIE Plan . PLAN: Extubated on , N/C during the day avoid sedative medications--- DC all benzodiazepines PRN haldol for agitation Off ABX Follow OB recs 2/2/ vaginal bleeding and abnormal U/S Follow cardiology recs Follow nephrology recs PT/OT/ST DVT/GI PPX D/W MIGUEL VALENCIA MD Nov 14, 2020 14:00
[2020-11-14 15:00] VITALS: BP 112/64
[2020-11-14 19:23] VITALS: BP 126/60
--- NOTE | 2020-11-14 19:48 | PDOC ---
[employer] PROGRESS NOTE Date of Service DOS: DATE: 11/14/20 TIME: 19:47 Chief Complaint Chief Complaint COVID Positive Acute hypoxemic hypercapnic respiratory failure Acute on chronic heart failure Blood cultures positive Heart failure PMH ME AICD in UTI Hypocalcemia Hypertriglyceridemia Anemia Low platelets Hypoglycemia (43) Elevated Cr Hyperkalemia Vaginal bleeding concerning for endometrial CA History of Present Illness History of Present Illness 10/31 Patient seen and examined in ICU Patient sedated with propofol Possible COVID - pending under investigation Discussed with RN Chart reviewed Blood culture positive Vent settings as follows AC/18/450/40 11/01 Patient is COVID positive Patient seen and examined in ICU Patient sedated with propofol Discussed with RN Discussed with Space Control Supervisor Chart reviewed Blood cultures are positive 11/02 Patient is COVID positive Patient seen and examined in ICU Propofol IV Discussed with RN Chart Reviewed Blood cultures positive 11/03/2020 Patient resting w/ NAD on Bipap Patient is COVID positive Patient seen and examined in ICU Propofol IV Discussed with RN Chart Reviewed Blood cultures positive 11/04/2020 Patient seen and evaluated. Tachypneic, afebrile. Still breathing on BiPAP. Continue IV Zosyn, positive blood cultures most likely contaminant. Continue diuresis. She is on Levophed and Precedex. Still with some agitation. CT chest pending to evaluate possible thoracentesis. Total time spent 35 minutes, >50% time spent reviewing charts, reviewing labs, discussing with RN and manager social responsibility. 11/05/2020 Patient seen and evaluated. She is still intermittently requiring BiPAP. A febrile, tachypneic, tachycardic. Sedated with Haldol. CT chest yesterday showing trace bilateral pleural effusion, no drainable fluid collection. Continue COVID-19 treatment with steroids and supportive care. 11/06/2020 Patient seen and evaluated, status post extubation 10/31. Afebrile, tachycardic. She is breathing intermittently on BiPAP, currently on 2 L nasal cannula. States she is hungry, swallow eval pending. Continue steroids and antibiotics, per ID. Continue diuresis. 11/07/2020 Patient seen evaluate bedside. Status post extubation on 1217. Rising creatinine of 3.3. Pending nephrology evaluation.> 50% time spent in patient chart, labs, and imaging review and in discussion with RN and SW 11/08/2020 Patient seen and examined bedside. No acute events overnight. Saturating 96% on 4 L nasal cannula during the day and tolerating 35% on BiPAP. Passed speech swallow study and is currently on a dysphagia diet. Augmentin discontinued today per ID.> 50% time spent in patient chart, labs, and imaging review and in discussion with RN and MADDIE 11/09/2020 No acute events overnight. Patient is afebrile. Patient seen and examined bedside. Is somewhat more confused and agitated today mainly due to incontinence to stool. Rectal tube has been removed Hutchins is intact. Will encourage thickened liquids of 240 cc every 6 hours mainly due to JACKIE and worsening potassium. Will defer the rest of the management to nephrology for improving renal function.> 50% time spent in patient chart, labs, and imaging enry he and in discussion with RN and MADDIE 11/10/2020 Patient given 2 mg IV Ativan last night and subsequently placed on BiPAP. Will change dose to 0.5 p.o. Ativan and see if we can wean off BiPAP and put back on nasal cannula. Patient's chart, labs, images were reviewed and discussed with RN 11/11/2020 No acute events overnight. Patient tolerated BiPAP at night. Currently satura ting 94% on 5 L nasal cannula. Elevating potassium levels. Sodium bicarb started. Patient's chart, labs, images were reviewed and discussed with RN 11/12/2020 No acute events overnight. Patient's drowsy this morning but saturating 95% on 3 L nasal cannula. Cannulated patient had some vaginal bleeding and the heparin was held this morning. Discussion with the RN states that her Hutchins might have been tugged causing that episode of bleeding. However patient has not been bleeding this morning and Hutchins and rectal tube was not placed. Patient's chart, labs, images were reviewed and discussed with RN 11/13/2020 No acute events overnight. Patient continues to be drowsy but is following commands and able to make requests for the nurse. Patient saturating 98% on 3 L nasal cannula. Still has some vaginal bleeding around the Hutchins. Rectal tube will be removed today. Will discuss with nephrology for Hutchins removal. Consult gynecology for vaginal bleeding. Patient's chart, labs, images were reviewed and discussed with RN 11/14/20 Continues to be confused and lethargic. Patient is able to communicate. Vitals/I&O Vitals/I&O: Vital Signs Date Time Temp Pulse Resp B/P (MAP) Pulse Ox O2 Delivery O2 Flow Rate FiO2 11/14/20 15:00 97.5 64 18 112/64 (80) 97 Nasal Cannula 3.0 97.5 I & O 11/13/20 11/13/20 11/14/20 14:59 22:59 06:59 Intake Total 450 ml 570 ml 417 ml Output Total 1200 ml 700 ml Balance 450 ml -630 ml -283 ml Physical Exam Physical Exam: GENERAL: Alert awake female HEENT: Both pupils are round and reacting. No conjunctival lesion. No lesion in the mouth. NECK: Supple, no JVP, no lymphadenopathy. LUNGS: Clear. HEART: S1, S2 regular. ABDOMEN: Soft bowel sounds present nontender nondistended Fecal tube present EXTREMITIES: No edema or cyanosis. SKIN: Unremarkable. NEUROLOGIC: Alert awake General: Alert, Cooperative, No acute distress Heart: Regular rate Abdomen: Normal bowel sounds Extremities: No clubbing Skin: No breakdown Labs Labs: Laboratory Tests Test 11/13/20 20:06 11/14/20 05:30 11/14/20 08:07 11/14/20 11:44 Glucose (Fingerstick) 159 mg/dL (70-99) 123 mg/dL (70-99) 178 mg/dL (70-99) Sodium Level 139 mmol/L (136-145) Potassium Level 4.4 mmol/L (3.5-5.1) Chloride Level 103 mmol/L (98-107) Carbon Dioxide Level 35 mmol/L (21-32) Anion Gap 1 (6-14) Blood Urea Nitrogen 34 mg/dL (7-20) Creatinine 2.6 mg/dL (0.6-1.0) Estimated GFR (Cockcroft-Gault) 22.8 BUN/Creatinine Ratio 13 (6-20) Glucose Level 122 mg/dL (70-99) Calcium Level 8.1 mg/dL (8.5-10.1) Total Bilirubin 0.2 mg/dL (0.2-1.0) Aspartate Amino Transf (AST/SGOT) 38 U/L (15-37) Alanine Aminotransferase (ALT/SGPT) 18 U/L (14-59) Alkaline Phosphatase 76 U/L (46-116) Total Protein 5.4 g/dL (6.4-8.2) Albumin 1.5 g/dL (3.4-5.0) Albumin/Globulin Ratio 0.4 (1.0-1.7) Test 11/14/20 16:34 Glucose (Fingerstick) 294 mg/dL (70-99) Assessment and Plan Assessmemt and Plan Problems Medical Problems: (1) AMS (altered mental status) Status: Acute (2) Hypercapnia Status: Acute (3) Person under investigation for COVID-19 Status: Acute (4) Respiratory failure Status: Acute (5) UTI (urinary tract infection) Status: Acute Comment Review of Relevant I have reviewed the following items lucas (where applicable) has been applied. Justifications for Admission Other Justification SARAVANAN VINCENT MD Nov 14, 2020 19:48
--- NOTE | 2020-11-14 20:45 | RAD ---
Exam: Chest one view INDICATION: Covid positive TECHNIQUE: Frontal view of the chest Comparisons: 11/06/2020 FINDINGS: Right-sided PICC with tip at the SVC. There is an AICD with leads terminating the right atrium, ventr icle and coronary sinus. Heart is mildly enlarged. Pulmonary vessels are within normal limits. Hazy bibasilar airspace disease with more focal consolidation at the left lung base obscuring the lef t hemidiaphragm. IMPRESSION: Bibasilar airspace disease greater on the right, could relate to a combination of effusion, atelectas is and/or pneumonia. Electronically signed by: Leonel Hamilton MD (11/14/2020 8:43 PM) [facility]
[2020-11-14] MEDS: risperiDONE 1 MG TABLET. PO SCH (20:49)
[2020-11-14] MEDS: FAMOTIDINE 20 MG TABLET. PO SCH (20:49)
[2020-11-14] MEDS: ATORVASTATIN CALCIUM 10 MG TABLET. PO SCH (20:49)
[2020-11-14 21:42] LABS: BILIRUBIN,URINE NEGATIVE (NEG); CLARITY,URINE CLEAR; COLOR,URINE YELLOW; NITRITE,URINE NEGATIVE (NEG); PH,URINE 7.5 (<5.0-8.0); PROTEIN,URINE 100 mg/dL (NEG-TRACE); UROBILINOGEN,URINE 0.2 mg/dL (0.2 mg/dL)
[2020-11-14 21:48] LABS: BACTERIA,URINE 0 /HPF (0-FEW); RBC,URINE OCC /HPF (0-2); WBC,URINE OCC /HPF (0-4)
[2020-11-14 23:31] VITALS: BP 143/69
[2020-11-15] MEDS: CALCIUM CARBONATE 500 MG TABLET PO SCH ×6 (03:03→22:03)
[2020-11-15] MEDS: POLYVINYL ALCOHOL 1.4% OPHTH SOLUTION 15ML BOTTLE. OU SCH ×6 (03:03→22:03)
[2020-11-15 03:59] VITALS: BP 175/92
[2020-11-15] MEDS: ACETAMINOPHEN 325 MG TABLET. PO SCH ×4 (04:37→22:04)
[2020-11-15] MEDS: LEVOTHYROXINE 112 MCG TABLET PO SCH (05:01)
[2020-11-15] MEDS: HEPARIN for SUB-Q USE 5,000 UNIT/ML VIAL. SQ SCH ×3 (05:02→22:02)
[2020-11-15 06:33] LABS: ALBUMIN 1.6 g/dL (3.4-5.0); CREATININE 2.9 mg/dL (0.6-1.0); GFR 20.1; PHOSPHORUS 4.5 mg/dL (2.6-4.7); POTASSIUM 4.6 mmol/L (3.5-5.1)
[2020-11-15 07:00] VITALS: BP 180/92
[2020-11-15] MEDS: VITAMIN B COMPLEX TABLET. PO SCH (08:13)
[2020-11-15] MEDS: CETIRIZINE HCL 10 MG TABLET. PO SCH (08:13)
[2020-11-15] MEDS: MULTIVITAMIN with MINERAL TABLET. PO SCH (08:13)
[2020-11-15] MEDS: rOPINIRole 1 MG TABLET. PO SCH (08:13)
[2020-11-15] MEDS: buPROPion XL 150 MG TAB.ER.24H. PO SCH (08:13)
[2020-11-15] MEDS: cloNIDine HCL 0.2 MG TABLET PO SCH ×3 (08:14→22:01)
[2020-11-15] MEDS: DICYCLOMINE HCL 10 MG CAPSULE PO SCH ×3 (08:14→22:01)
[2020-11-15] MEDS: LACTOBACILLUS RHAMNOSUS GG 1 CAPSULE. PO SCH ×2 (08:14→22:01)
[2020-11-15] MEDS: ASPIRIN CHEWABLE 81 MG TABLET. PO SCH (08:14)
[2020-11-15] MEDS: DIPHENOXYLATE/ATROPINE TABLET. PO SCH ×3 (08:14→22:01)
[2020-11-15] MEDS: GABAPENTIN 100 MG CAPSULE. PO SCH ×3 (08:15→22:01)
[2020-11-15] MEDS: FOLIC ACID 1 MG TABLET. PO SCH (08:15)
[2020-11-15] MEDS: METOPROLOL SUCC 24HR ER 100 MG TAB.ER.24H. PO SCH (08:23)
[2020-11-15] MEDS: MAGNESIUM OXIDE 400 MG TABLET PO SCH (09:00)
[2020-11-15] MEDS: INSULIN LISPRO 300 UNITS/3 ML VIAL. SQ SCH ×3 (09:15→17:00)
--- NOTE | 2020-11-15 10:04 | PDOC ---
[facility] [facility] PROGRESS NOTE Date of Service DOS: DATE: 11/15/20 TIME: 10:02 Chief Complaint Chief Complaint COVID Positive Acute hypoxemic hypercapnic respiratory failure Acute on chronic heart failure Blood cultures positive Heart failure PMH AK AICD in UTI Hypocalcemia Hypertriglyceridemia Anemia Low platelets Hypoglycemia (43) Elevated Cr Hyperkalemia Vaginal bleeding concerning for endometrial CA History of Present Illness History of Present Illness 11/15/2020 Patient seen exam Chart reviewed She appears weak and ill 10/31 Patient seen and examined in ICU Patient sedated with propofol Possible COVID - pending under investigation Discussed with RN Chart reviewed Blood culture positive Vent settings as follows AC/18/450/40 11/01 Patient is COVID positive Patient seen and examined in ICU Patient sedated with propofol Discussed with RN Discussed with Railway Switchman Chart reviewed Blood cultures are positive 11/02 Patient is COVID positive Patient seen and examined in ICU Propofol IV Discussed with RN Chart Reviewed Blood cultures positive 11/03/2020 Patient resting w/ NAD on Bipap Patient is COVID positive Patient seen and examined in ICU Propofol IV Discussed with RN Chart Reviewed Blood cultures positive 11/04/2020 Patient seen and evaluated. Tachypneic, afebrile. Still breathing on BiPAP. Continue IV Zosyn, positive blood cultures most likely contaminant. Continue diuresis. She is on Levophed and Precedex. Still with some agitation. CT chest pending to evaluate possible thoracentesis. Total time spent 35 minutes, >50% time spent reviewing charts, reviewing labs, discussing with RN and social science analyst. 11/05/2020 Patient seen and evaluated. She is still intermittently requiring BiPAP. Afebrile, tachypneic, tachycardic. Sedated with Haldol. CT chest yesterday showing trace bilateral pleural effusion, no drainable fluid collection. Continue COVID-19 treatment with steroids and supportive care. 11/06/2020 Patient seen and evaluated, status post extubation 10/31. Afebrile, tachycardic. She is breathing intermittently on BiPAP, currently on 2 L nasal cannula. States she is hungry, swallow eval pending. Continue steroids and antibiotics, per ID. Continue diuresis. 11/07/2020 Patient seen evaluate bedside. Status post extubation on 1217. Rising creatinine of 3.3. Pending nephrology evaluation.> 50% time spent in patient chart, labs, and imaging review and in discussion with RN and SW 11/08/2020 Patient seen and examined bedside. No acute events overnight. Saturating 96% on 4 L nasal cannula during the day and tolerating 35% on BiPAP. Passed speech swallow study and is currently on a dysphagia diet. Augmentin discontinued today per ID.> 50% time spent in patient chart, labs, and imaging review and in discussion with RN and SW 11/09/2020 No acute events overnight. Patient is afebrile. Patient seen and examined bedside. Is somewhat more confused and agitated today mainly due to incontinence to stool. Rectal tube has been removed Hutchins is intact. Will encourage thickened liquids of 240 cc every 6 hours mainly due to JACKIE and worsening potassium. Will defer the rest of the management to nephrology for improving renal function.> 50% time spent in patient chart, labs, and imaging review and in discussion with RN and MADDIE 11/10/2020 Patient given 2 mg IV Ativan last night and subsequently placed on BiPAP. Will change dose to 0.5 p.o. Ativan and see if we can wean off BiPAP and put back on nasal cannula. Patient's chart, labs, images were reviewed and discussed with RN 11/11/2020 No acute events overnight. Patient tolerated BiPAP at night. Currently saturating 94% on 5 L nasal cannula. Elevating potassium levels. Sodium bicarb started. Patient's chart, labs, images were reviewed and discussed with RN 11/12/2020 No acute events overnight. Patient's drowsy this morning but saturating 95% on 3 L nasal cannula. Cannulated patient had some vaginal bleeding and the heparin was held this morning. Discussion with the RN states that her Hutchins might have been tugged causing that episode of bleeding. However patient has not been bleeding this morning and Hutchins and rectal tube was not placed. Patient's chart, labs, images were reviewed and discussed with RN 11/13/2020 No acute events overnight. Patient continues to be drowsy but is following c ommands and able to make requests for the nurse. Patient saturating 98% on 3 L nasal cannula. Still has some vaginal bleeding around the Hutchins. Rectal tube will be removed today. Will discuss with nephrology for Hutchins removal. Consult gynecology for vaginal bleeding. Patient's chart, labs, images were reviewed and discussed with RN 11/14/20 Continues to be confused and lethargic. Patient is able to communicate. Vitals/I&O Vitals/I&O: Vital Signs Date Time Temp Pulse Resp B/P (MAP) Pulse Ox O2 Delivery O2 Flow Rate FiO2 11/15/20 08:23 88 175/92 11/15/20 07:00 97.7 16 97 Nasal Cannula 4.0 97.7 I & O 11/14/20 11/14/20 11/15/20 15:00 23:00 07:00 Intake Total 240 ml 1000 ml 900 ml Output Total 1500 ml Balance 240 ml 1000 ml -600 ml Physical Exam Physical Exam: GENERAL: Weak ill and confused HEENT: Both pupils are round and reacting. No conjunctival lesion. No lesion in the mouth. NECK: Supple, no JVP, no lymphadenopathy. LUNGS: Clear. HEART: S1, S2 regular. ABDOMEN: Soft bowel sounds present nontender nondistended Fecal tube present EXTREMITIES: No edema or cyanosis. SKIN: Unremarkable. NEUROLOGIC: Lethargic General: mild distress, Other (Appears lethargic) Heart: Regular rate Lungs: Crackles Abdomen: Normal bowel sounds Extremities: No clubbing Skin: No breakdown Labs Labs: Laboratory Tests Test 11/14/20 11:44 11/14/20 16:34 11/14/20 21:04 11/14/20 21:20 Glucose (Fingerstick) 178 mg/dL (70-99) 294 mg/dL (70-99) 142 mg/dL (70-99) Urine Collection Type U cath Urine Color Yellow Urine Clarity Clear Urine pH 7.5 (<5.0-8.0) Urine Specific [place] <=1.005 (1.000-1.030) Urine Protein 100 mg/dL (NEG-TRACE) Urine Glucose (UA) Negative mg/dL (NEG) Urine Ketones (Stick) Negative mg/dL (NEG) Urine Blood Negative (NEG) Urine Nitrite Negative (NEG) Urine Bilirubin Negative (NEG) Urine Urobilinogen Dipstick 0.2 mg/dL (0.2 mg/dL) Urine Leukocyte Esterase Negative (NEG) Urine RBC Occ /HPF (0-2) Urine WBC Occ /HPF (0-4) Urine Bacteria 0 /HPF (0-FEW) Test 11/15/20 06:00 11/15/20 07:31 Sodium Level 141 mmol/L (136-145) Potassium Level 4.6 mmol/L (3.5-5.1) Chloride Level 104 mmol/L (98-107) Carbon Dioxide Level 36 mmol/L (21-32) Anion Gap 1 (6-14) Blood Urea Nitrogen 31 mg/dL (7-20) Creatinine 2.9 mg/dL (0.6-1.0) Estimated GFR (Cockcroft-Gault) 20.1 Glucose Level 110 mg/dL (70-99) Calcium Level 9.0 mg/dL (8.5-10.1) Phosphorus Level 4.5 mg/dL (2.6-4.7) Albumin 1.6 g/dL (3.4-5.0) Glucose (Fingerstick) 162 mg/dL (70-99) Assessment and Plan Assessmemt and Plan Problems Medical Problems: (1) AMS (altered mental status) Status: Acute (2) Hypercapnia Status: Acute (3) Person under investigation for COVID-19 Status: Acute (4) Respiratory failure Status: Acute (5) UTI (urinary tract infection) Status: Acute COVID Positive Acute hypoxemic hypercapnic respiratory failure Acute on chronic heart failure Blood cultures positive Heart failure PMH AK AICD in UTI Hypocalcemia Hypertriglyceridemia Anemia Low platelets Hypoglycemia (43) Elevated Cr Hyperkalemia Vaginal bleeding concerning for Plan Covid protocol Cardiac monitoring Trend labs Home meds DVT prophylaxis Full code Appreciate subspecialist input Prognosis guarded Per pulmonary recommendations see the following; avoid sedative medications--- DC all benzodiazepines PRN haldol for agitation Off ABX Follow OB recs 2/2/ vaginal bleeding and abnormal U/S Follow cardiology recs Follow nephrology recs PT/OT/ST DVT/GI PPX Comment Review of Relevant I have reviewed the following items lucas (where applicable) has been applied. Justifications for Admission Other Justification SHAHNAZ SANTOS III DO Nov 15, 2020 10:04
[2020-11-15 11:00] VITALS: BP 141/73
--- NOTE | 2020-11-15 11:03 | PDOC ---
[employer] PROGRESS NOTE Date of Service: DATE: 11/15/20 TIME: 11:02 Subjective: No change Objective: Vital Signs: Vital Signs Date Time Temp Pulse Resp B/P (MAP) Pulse Ox O2 Delivery O2 Flow Rate FiO2 11/14/20 07:00 96.8 75 20 145/104 (118) 96 Nasal Cannula 3.0 96.8 Vital Signs Date Time Temp Pulse Resp B/P (MAP) Pulse Ox O2 Delivery O2 Flow Rate FiO2 11/15/20 08:23 88 175/92 11/15/20 07:00 97.7 16 97 Nasal Cannula 4.0 97.7 Labs: Laboratory Tests Test 11/14/20 11:44 11/14/20 16:34 11/14/20 21:04 11/14/20 21:20 Glucose (Fingerstick) 178 mg/dL (70-99) H 294 mg/dL (70-99) H 142 mg/dL (70-99) H Urine Collection Type U cath Urine Color Yellow Urine Clarity Clear Urine pH 7.5 (<5.0-8.0) Urine Specific [place] <=1.005 (1.000-1.030) Urine Protein 100 mg/dL (NEG-TRACE) Urine Glucose (UA) Negative mg/dL (NEG) Urine Ketones (Stick) Negative mg/dL (NEG) Urine Blood Negative (NEG) Urine Nitrite Negative (NEG) Urine Bilirubin Negative (NEG) Urine Urobilinogen Dipstick 0.2 mg/dL (0.2 mg/dL) Urine Leukocyte Esterase Negative (NEG) Urine RBC Occ /HPF (0-2) Urine WBC Occ /HPF (0-4) Urine Bacteria 0 /HPF (0-FEW) Test 11/15/20 06:00 11/15/20 07:31 Sodium Level 141 mmol/L (136-145) Potassium Level 4.6 mmol/L (3.5-5.1) Chloride Level 104 mmol/L (98-107) Carbon Dioxide Level 36 mmol/L (21-32) H Anion Gap 1 (6-14) L Blood Urea Nitrogen 31 mg/dL (7-20) H Creatinine 2.9 mg/dL (0.6-1.0) H Estimated GFR (Cockcroft-Gault) 20.1 Glucose Level 110 mg/dL (70-99) H Calcium Level 9.0 mg/dL (8.5-10.1) Phosphorus Level 4.5 mg/dL (2.6-4.7) Albumin 1.6 g/dL (3.4-5.0) L Glucose (Fingerstick) 162 mg/dL (70-99) H Laboratory Tests 11/15/20 06:00 Laboratory Tests 11/15/20 06:00 Physical Exam: CHEST: Full expansion. LUNGS: Scattered rhonchi, no wheezes. CARDIOVASCULAR: Regular rate and rhythm with S1, S2, no S3. ABDOMEN: Soft, nontender. EXTREMITIES: No clubbing, cyanosis. Minimal edema. NEUROLOGICAL: The patient sedated. Assessment & Plan: A/P 60y F admitted for altered mental status 1.) Postmenopausal bleeding Pelvic u/s revealed 1. Thickened endometrium, may relate to endometrial hyperplasia although endometrial carcinoma is possible. Recommend further clinical evaluation and biopsy if indicated. 2. Several uterine masses, likely fibroids. Will need endometrial sample via EMB or D&C. Can be arranged as an outpt 2.) COVID Positive 10/30/20 3.) Blood cultures positive 4.) Sepsis - resolved 5.) Acute hypoxemic hypercapnic respiratory failure extubated 10/31 6.) Acute on chronic systolic heart failure 7.) H/o VA 8.) Cardiomyopathy - EF of 45%. 9.) A-fib - h/o pacemaker 10.) UTI 11.) Anemia Hgb 9.6 12.) Thrombocytopenia resolved, last 227 13.) YULIYA Cr 2.7, nephrology consulted 14.) Acute metabolic toxic encephalopathy 15.) Schizoaffective disorder 16.) Will cont to follow ASHLYN ROTH MD Nov 15, 2020 11:03
--- NOTE | 2020-11-15 12:29 | PDOC ---
PULMONARY PROGRESS NOTES DATE: 11/15/20 TIME: 12:25 Subjective extubated on 10/31 on 4 liters N/C alert and awake today no other concerns from nursing Vitals Vital Signs Date Time Temp Pulse Resp B/P (MAP) Pulse Ox O2 Delivery O2 Flow Rate FiO2 11/15/20 11:00 96.9 83 16 141/73 (95) 99 Nasal Cannula 4.0 96.9 Comments visual exam done due to COVID-19 pandemic RRR Awake and alert N/C No edema ROS: No Nausea, No Chest Pain, No Abdominal Pain, No Increase Cough Lungs: Crackles Labs Laboratory Tests Test 11/13/20 20:06 11/14/20 05:30 11/14/20 08:07 11/14/20 11:44 Glucose (Fingerstick) 159 mg/dL (70-99) 123 mg/dL (70-99) 178 mg/dL (70-99) Sodium Level 139 mmol/L (136-145) Potassium Level 4.4 mmol/L (3.5-5.1) Chloride Level 103 mmol/L (98-107) Carbon Dioxide Level 35 mmol/L (21-32) Anion Gap 1 (6-14) Blood Urea Nitrogen 34 mg/dL (7-20) Creatinine 2.6 mg/dL (0.6-1.0) Estimated GFR (Cockcroft-Gault) 22.8 BUN/Creatinine Ratio 13 (6-20) Glucose Level 122 mg/dL (70-99) Calcium Level 8.1 mg/dL (8.5-10.1) Total Bilirubin 0.2 mg/dL (0.2-1.0) Aspartate Amino Transf (AST/SGOT) 38 U/L (15-37) Alanine Aminotransferase (ALT/SGPT) 18 U/L (14-59) Alkaline Phosphatase 76 U/L (46-116) Total Protein 5.4 g/dL (6.4-8.2) Albumin 1.5 g/dL (3.4-5.0) Albumin/Globulin Ratio 0.4 (1.0-1.7) Test 11/14/20 16:34 11/14/20 21:04 11/14/20 21:20 11/15/20 06:00 Glucose (Fingerstick) 294 mg/dL (70-99) 142 mg/dL (70-99) Urine Collection Type U cath Urine Color Yellow Urine Clarity Clear Urine pH 7.5 (<5.0-8.0) Urine Specific [place] <=1.005 (1.000-1.030) Urine Protein 100 mg/dL (NEG-TRACE) Urine Glucose (UA) Negative mg/dL (NEG) Urine Ketones (Stick) Negative mg/dL (NEG) Urine Blood Negative (NEG) Urine Nitrite Negative (NEG) Urine Bilirubin Negative (NEG) Urine Urobilinogen Dipstick 0.2 mg/dL (0.2 mg/dL) Urine Leukocyte Esterase Negative (NEG) Urine RBC Occ /HPF (0-2) Urine WBC Occ /HPF (0-4) Urine Bacteria 0 /HPF (0-FEW) Sodium Level 141 mmol/L (136-145) Potassium Level 4.6 mmol/L (3.5-5.1) Chloride Level 104 mmol/L (98-107) Carbon Dioxide Level 36 mmol/L (21-32) Anion Gap 1 (6-14) Blood Urea Nitrogen 31 mg/dL (7-20) Creatinine 2.9 mg/dL (0.6-1.0) Estimated GFR (Cockcroft-Gault) 20.1 Glucose Level 110 mg/dL (70-99) Calcium Level 9.0 mg/dL (8.5-10.1) Phosphorus Level 4.5 mg/dL (2.6-4.7) Albumin 1.6 g/dL (3.4-5.0) Test 11/15/20 07:31 11/15/20 11:59 Glucose (Fingerstick) 162 mg/dL (70-99) 112 mg/dL (70-99) Laboratory Tests Test 11/14/20 16:34 11/14/20 21:04 11/14/20 21:20 11/15/20 06:00 Glucose (Fingerstick) 294 mg/dL (70-99) 142 mg/dL (70-99) Urine Collection Type U cath Urine Color Yellow Urine Clarity Clear Urine pH 7.5 (<5.0-8.0) Urine Specific [place] <=1.005 (1.000-1.030) Urine Protein 100 mg/dL (NEG-TRACE) Urine Glucose (UA) Negative mg/dL (NEG) Urine Ketones (Stick) Negative mg/dL (NEG) Urine Blood Negative (NEG) Urine Nitrite Negative (NEG) Urine Bilirubin Negative (NEG) Urine Urobilinogen Dipstick 0.2 mg/dL (0.2 mg/dL) Urine Leukocyte Esterase Negative (NEG) Urine RBC Occ /HPF (0-2) Urine WBC Occ /HPF (0-4) Urine Bacteria 0 /HPF (0-FEW) Sodium Level 141 mmol/L (136-145) Potassium Level 4.6 mmol/L (3.5-5.1) Chloride Level 104 mmol/L (98-107) Carbon Dioxide Level 36 mmol/L (21-32) Anion Gap 1 (6-14) Blood Urea Nitrogen 31 mg/dL (7-20) Creatinine 2.9 mg/dL (0.6-1.0) Estimated GFR (Cockcroft-Gault) 20.1 Glucose Level 110 mg/dL (70-99) Calcium Level 9.0 mg/dL (8.5-10.1) Phosphorus Level 4.5 mg/dL (2.6-4.7) Albumin 1.6 g/dL (3.4-5.0) Test 11/15/20 07:31 11/15/20 11:59 Glucose (Fingerstick) 162 mg/dL (70-99) 112 mg/dL (70-99) Medications Active Scripts Medications Dose Route/Sig Max Daily Dose Days Date Category Dose Instructions Lomotil Tablet (Diphenoxylate Hcl/Atropine) 1 Each Tablet 1 Tab PO TID 3 10/28/20 Rx Dicyclomine Hcl 20 Mg Tablet 1 Tab PO TID 10 10/28/20 Rx Zithromax (Azithromycin) 250 Mg Tablet 250 Mg PO DIRECTED 10/28/20 Rx Take 2 PO x 1 days Then take 1 PO q 24 hour for the next 4 days Doxycycline Hyclate 100 Mg Tablet 1 Tab PO BID 3 12/04/19 Rx Culturelle (Lactobacillus Rhamnosus Gg) 1 Each Cap.sprink 1 Cap PO BID 14 12/04/19 Rx Zofran (Ondansetron Hcl) 4 Mg Tablet 4 Mg PO Q8HRS PRN 12/02/19 Reported Tramadol Hcl 50 Mg Tablet 50 Mg PO Q6HRS PRN 12/02/19 Reported Tears Again (Polyvinyl Alcohol) 15 Ml Drops 2 Drop EACHEYE Q4HRS 30 12/02/19 Reported Polyvinyl Alcohol 15 Ml Drops 2 Drop EACHEYE Q4HRS 30 12/02/19 Reported Ropinirole Hcl 1 Mg Tablet 1 Mg PO BID 12/02/19 Reported Pantoprazole Sodium (Pantoprazole Sodium) 40 Mg Tablet.dr 40 Mg PO DAILYAC 12/02/19 Reported B-Complex Plus Vitamin C (B Complex With Vitamin C) 1 Each Tablet 1 Each PO DAILY 12/02/19 Reported Magnesium Oxide 400 Mg Tablet 400 Mg PO DAILY 12/02/19 Reported Loratadine 10 Mg Tablet 10 Mg PO DAILY 12/02/19 Reported Ketotifen Fumarate 5 Ml Drops 1 Drop EACHEYE BID 12/02/19 Reported Humalog (Insulin Lispro) 100 Unit/1 Ml Vial 100 Unit SQ BIDWMEALS 12/02/19 Reported 70 - 150 0 units 151 - 200 0 units 201 - 250 2 units 251 - 300 3 units 301 - 349 4 units if FSBS is under 70 or 350 and over call MD [guaifenesin Syrup] 10 Ml PO Q4HRS PRN 12/02/19 Reported Mucinex (Guaifenesin) 600 Mg Tablet.er 600 Mg PO BID 12/02/19 Reported Coreg (Carvedilol) 25 Mg Tablet 50 Mg PO BIDWMEALS 12/02/19 Reported Peridex (Chlorhexidine Gluconate) 15 Ml Mouthwash 15 Ml PO BID 30 12/02/19 Reported Swish in mouth for 30 seconds then spit out Calcium Carbonate 500 Mg Tablet 500 Mg PO Q4HRS 12/02/19 Reported Atorvastatin Calcium 10 Mg Tablet 10 Mg PO HS 12/02/19 Reported Acetaminophen 325 Mg Tablet 650 Mg PO Q6HRS 12/02/19 Reported Metformin Hcl 500 Mg Tablet 250 Mg PO BIDWMEALS 12/03/18 Reported Imodium A-D (Loperamide HCl) 2 Mg Capsule 2 Mg PO DAILY PRN 12/03/18 Reported Risperidone 0.5 Mg Tablet 0.5 Mg PO DAILY 03/21/18 Reported Risperidone 1 Mg Tablet 1 Tab PO QHS 03/21/18 Reported Levothyroxine Sodium 112 Mcg Tablet 1 Tab PO DAILY 03/21/18 Reported Advair 500-50 Diskus (Fluticasone/Salmeterol) 1 Each Disk.w.dev 1 Puff IH BID 03/21/18 Reported Nystatin 15 Gm Powder 1 Scott TP PRN BID PRN 03/21/18 Reported Clonazepam (Clonazepam) 0.5 Mg Tablet 1 Tab PO BID 09/30/16 Reported Montelukast Sodium Tablet (Montelukast Sodium) 10 Mg Tablet 1 Tab PO HS 02/18/16 Reported Gas-X (Simethicone) 80 Mg Tab.chew 160 Mg PO Q2HR PRN 02/18/16 Reported Gabapentin (Gabapentin) 100 Mg Capsule 100 Mg PO TID 02/18/[address] chest 1. Cardiomegaly. 2. Increased consolidative opacities in the left lung and scattered groundglass opacities in the right lung are suspicious for pneumonia. Some of the opacities in the left upper lobe are chronic scarring or atelectasis present on prior exam. 3. New trace bilateral pleural effusions. No large or drainable pleural effusion. Electronically signed by: Renetta Edouard MD (11/04/2020 4:07 PM) [id number] U/S IMPRESSION: 1. Thickened endometrium, may relate to endometrial hyperplasia although endometrial carcinoma is possible. Recommend further clinical evaluation and biopsy if indicated. 2. Several uterine masses, likely fibroids. Impression . IMPRESSION: 1. Acute on chronic hypoxemic hypercapnic respiratory failure, extubated .10/31, Has been restless on/off. received ativan night of 11/09/ increase hypoxia/ on BIPAP/ 60%, now more awake, off BIPAP 2. Abnormal x-ray compatible with acute on chronic congestive heart failure,/ COVID-19. 3. Abnormal ct chest c/w COVID-19 PNEUMONIA/ ? BACTERIAL PNA 4. COVID-19 5. Acute metabolic toxic encephalopathy. 6. History of status post pacemaker defibrillator implantation. 7. Restless legs syndrome. 8. Schizoaffective disorder. 9. Acute on chronic systolic heart failure. 9. Non-ST segment elevation myocardial infarction. 10. Cardiomyopathy, ejection fraction on 11/2019 revealed EF of 45%. 11. Atrial fibrillation with V paced, currently underlying sinus rhythm. 12. Hyperlipidemia. 13. Hypothyroidism. 14. Fever, rule out bacteremia. 15. Sepsis.resolved 16. JACKIE Plan . PLAN: Extubated on , N/C during the day avoid sedative medications PRN haldol for agitation Off ABX Follow OB recs 2/2/ vaginal bleeding and abnormal U/S,Will need endometrial sample via EMB or D&C. Can be arranged as an outpt Follow cardiology recs--- Plan outpatient ischemic evaluation, ECHO when recovered from COVID-19 Follow nephrology recs PT/OT/ST DVT/GI PPX social work for D/C planning D/W MIGUEL VALENCIA MD Nov 15, 2020 12:29
[2020-11-15 15:00] VITALS: BP 131/73
[2020-11-15] MEDS: IV DEXTROSE 5 %-0.45 % NACL 1,000 ML IV SCH (16:33)
[2020-11-15 19:00] VITALS: BP 164/84
[2020-11-15] MEDS: FAMOTIDINE 20 MG TABLET. PO SCH (22:02)
[2020-11-15] MEDS: risperiDONE 1 MG TABLET. PO SCH (22:02)
[2020-11-15] MEDS: ATORVASTATIN CALCIUM 10 MG TABLET. PO SCH (22:02)
[2020-11-15 22:59] VITALS: BP 147/80
[2020-11-16] MEDS: POLYVINYL ALCOHOL 1.4% OPHTH SOLUTION 15ML BOTTLE. OU SCH ×6 (03:22→23:27)
[2020-11-16 03:23] VITALS: BP 180/88
[2020-11-16] MEDS: CALCIUM CARBONATE 500 MG TABLET PO SCH ×6 (03:23→23:27)
[2020-11-16] MEDS: LEVOTHYROXINE 112 MCG TABLET PO SCH (05:25)
[2020-11-16] MEDS: HEPARIN for SUB-Q USE 5,000 UNIT/ML VIAL. SQ SCH ×3 (05:26→20:25)
[2020-11-16] MEDS: IV DEXTROSE 5 %-0.45 % NACL 1,000 ML IV SCH ×3 (05:26→20:49)
[2020-11-16] MEDS: ACETAMINOPHEN 325 MG TABLET. PO SCH ×4 (05:27→23:27)
[2020-11-16 06:10] LABS: UR POTASSIUM 7.9 mmol/L (Not Estab.)
[2020-11-16 06:28] LABS: ALBUMIN 1.6 g/dL (3.4-5.0); CALCIUM 9.2 mg/dL (8.5-10.1); CREATININE 3.1 mg/dL (0.6-1.0); GFR 18.6; PHOSPHORUS 4.4 mg/dL (2.6-4.7); POTASSIUM 4.8 mmol/L (3.5-5.1)
[2020-11-16 07:00] VITALS: BP 151/94
[2020-11-16] MEDS: INSULIN LISPRO 300 UNITS/3 ML VIAL. SQ SCH ×3 (08:00→17:00)
[2020-11-16] MEDS: ASPIRIN CHEWABLE 81 MG TABLET. PO SCH (09:45)
[2020-11-16] MEDS: buPROPion XL 150 MG TAB.ER.24H. PO SCH (09:45)
[2020-11-16] MEDS: GABAPENTIN 100 MG CAPSULE. PO SCH ×3 (09:45→20:25)
[2020-11-16] MEDS: MULTIVITAMIN with MINERAL TABLET. PO SCH (09:45)
[2020-11-16] MEDS: rOPINIRole 1 MG TABLET. PO SCH (09:45)
[2020-11-16] MEDS: MAGNESIUM OXIDE 400 MG TABLET PO SCH (09:46)
[2020-11-16] MEDS: FOLIC ACID 1 MG TABLET. PO SCH (09:46)
[2020-11-16] MEDS: DIPHENOXYLATE/ATROPINE TABLET. PO SCH ×3 (09:46→20:25)
[2020-11-16] MEDS: LACTOBACILLUS RHAMNOSUS GG 1 CAPSULE. PO SCH ×2 (09:46→20:25)
[2020-11-16] MEDS: METOPROLOL SUCC 24HR ER 100 MG TAB.ER.24H. PO SCH (09:47)
[2020-11-16] MEDS: VITAMIN B COMPLEX TABLET. PO SCH (09:48)
[2020-11-16] MEDS: CETIRIZINE HCL 10 MG TABLET. PO SCH (09:48)
[2020-11-16] MEDS: cloNIDine HCL 0.2 MG TABLET PO SCH ×3 (09:48→20:25)
--- NOTE | 2020-11-16 10:27 | PDOC ---
PULMONARY PROGRESS NOTES DATE: 11/16/20 TIME: 10:26 Subjective extubated on 10/31 on 2 liters N/C alert and awake today no other concerns from nursing Vitals Vital Signs Date Time Temp Pulse Resp B/P (MAP) Pulse Ox O2 Delivery O2 Flow Rate FiO2 11/16/20 09:48 93 151/94 11/16/20 07:00 98.6 18 95 Nasal Cannula 2.0 98.6 Comments visual exam done due to COVID-19 pandemic RRR Awake and alert N/C No edema ROS: No Nausea, No Chest Pain, No Abdominal Pain, No Increase Cough General: Alert Lungs: Clear Labs Laboratory Tests Test 11/14/20 11:44 11/14/20 16:34 11/14/20 20:45 11/14/20 21:04 Glucose (Fingerstick) 178 mg/dL (70-99) 294 mg/dL (70-99) 142 mg/dL (70-99) Urine Sodium 65 mmol/L (Not Estab.) Urine Potassium 7.9 mmol/L (Not Estab.) Urine Chloride 45 mmol/L (Not Estab.) Test 11/14/20 21:20 11/15/20 06:00 11/15/20 07:31 11/15/20 11:59 Urine Collection Type U cath Urine Color Yellow Urine Clarity Clear Urine pH 7.5 (<5.0-8.0) Urine Specific [place] <=1.005 (1.000-1.030) Urine Protein 100 mg/dL (NEG-TRACE) Urine Glucose (UA) Negative mg/dL (NEG) Urine Ketones (Stick) Negative mg/dL (NEG) Urine Blood Negative (NEG) Urine Nitrite Negative (NEG) Urine Bilirubin Negative (NEG) Urine Urobilinogen Dipstick 0.2 mg/dL (0.2 mg/dL) Urine Leukocyte Esterase Negative (NEG) Urine RBC Occ /HPF (0-2) Urine WBC Occ /HPF (0-4) Urine Bacteria 0 /HPF (0-FEW) Sodium Level 141 mmol/L (136-145) Potassium Level 4.6 mmol/L (3.5-5.1) Chloride Level 104 mmol/L (98-107) Carbon Dioxide Level 36 mmol/L (21-32) Anion Gap 1 (6-14) Blood Urea Nitrogen 31 mg/dL (7-20) Creatinine 2.9 mg/dL (0.6-1.0) Estimated GFR (Cockcroft-Gault) 20.1 Glucose Level 110 mg/dL (70-99) Calcium Level 9.0 mg/dL (8.5-10.1) Phosphorus Level 4.5 mg/dL (2.6-4.7) Albumin 1.6 g/dL (3.4-5.0) Glucose (Fingerstick) 162 mg/dL (70-99) 112 mg/dL (70-99) Test 11/15/20 16:54 11/15/20 20:57 11/16/20 05:45 11/16/20 08:26 Glucose (Fingerstick) 76 mg/dL (70-99) 89 mg/dL (70-99) 81 mg/dL (70-99) Sodium Level 140 mmol/L (136-145) Potassium Level 4.8 mmol/L (3.5-5.1) Chloride Level 104 mmol/L (98-107) Carbon Dioxide Level 35 mmol/L (21-32) Anion Gap 1 (6-14) Blood Urea Nitrogen 25 mg/dL (7-20) Creatinine 3.1 mg/dL (0.6-1.0) Estimated GFR (Cockcroft-Gault) 18.6 Glucose Level 95 mg/dL (70-99) Calcium Level 9.2 mg/dL (8.5-10.1) Phosphorus Level 4.4 mg/dL (2.6-4.7) Albumin 1.6 g/dL (3.4-5.0) Laboratory Tests Test 11/15/20 11:59 11/15/20 16:54 11/15/20 20:57 11/16/20 05:45 Glucose (Fingerstick) 112 mg/dL (70-99) 76 mg/dL (70-99) 89 mg/dL (70-99) Sodium Level 140 mmol/L (136-145) Potassium Level 4.8 mmol/L (3.5-5.1) Chloride Level 104 mmol/L (98-107) Carbon Dioxide Level 35 mmol/L (21-32) Anion Gap 1 (6-14) Blood Urea Nitrogen 25 mg/dL (7-20) Creatinine 3.1 mg/dL (0.6-1.0) Estimated GFR (Cockcroft-Gault) 18.6 Glucose Level 95 mg/dL (70-99) Calcium Level 9.2 mg/dL (8.5-10.1) Phosphorus Level 4.4 mg/dL (2.6-4.7) Albumin 1.6 g/dL (3.4-5.0) Test 11/16/20 08:26 Glucose (Fingerstick) 81 mg/dL (70-99) Medications Active Scripts Medications Dose Route/Sig Max Daily Dose Days Date Category Dose Instructions Lomotil Tablet (Diphenoxylate Hcl/Atropine) 1 Each Tablet 1 Tab PO TID 3 10/28/20 Rx Dicyclomine Hcl 20 Mg Tablet 1 Tab PO TID 10 10/28/20 Rx Zithromax (Azithromycin) 250 Mg Tablet 250 Mg PO DIRECTED 10/28/20 Rx Take 2 PO x 1 days Then take 1 PO q 24 hour for the next 4 days Doxycycline Hyclate 100 Mg Tablet 1 Tab PO BID 3 12/04/19 Rx Culturelle (Lactobacillus Rhamnosus Gg) 1 Each Cap.sprink 1 Cap PO BID 14 12/04/19 Rx Zofran (Ondansetron Hcl) 4 Mg Tablet 4 Mg PO Q8HRS PRN 12/02/19 Reported Tramadol Hcl 50 Mg Tablet 50 Mg PO Q6HRS PRN 12/02/19 Reported Tears Again (Polyvinyl Alcohol) 15 Ml Drops 2 Drop EACHEYE Q4HRS 30 12/02/19 Reported Polyvinyl Alcohol 15 Ml Drops 2 Drop EACHEYE Q4HRS 30 12/02/19 Reported Ropinirole Hcl 1 Mg Tablet 1 Mg PO BID 12/02/19 Reported Pantoprazole Sodium (Pantoprazole Sodium) 40 Mg Tablet.dr 40 Mg PO DAILYAC 12/02/19 Reported B-Complex Plus Vitamin C (B Complex With Vitamin C) 1 Each Tablet 1 Each PO DAILY 12/02/19 Reported Magnesium Oxide 400 Mg Tablet 400 Mg PO DAILY 12/02/19 Reported Loratadine 10 Mg Tablet 10 Mg PO DAILY 12/02/19 Reported Ketotifen Fumarate 5 Ml Drops 1 Drop EACHEYE BID 12/02/19 Reported Humalog (Insulin Lispro) 100 Unit/1 Ml Vial 100 Unit SQ BIDWMEALS 12/02/19 Reported 70 - 150 0 units 151 - 200 0 units 201 - 250 2 units 251 - 300 3 units 301 - 349 4 units if FSBS is under 70 or 350 and over call MD [guaifenesin Syrup] 10 Ml PO Q4HRS PRN 12/02/19 Reported Mucinex (Guaifenesin) 600 Mg Tablet.er 600 Mg PO BID 12/02/19 Reported Coreg (Carvedilol) 25 Mg Tablet 50 Mg PO BIDWMEALS 12/02/19 Reported Peridex (Chlorhexidine Gluconate) 15 Ml Mouthwash 15 Ml PO BID 30 12/02/19 Reported Swish in mouth for 30 seconds then spit out Calcium Carbonate 500 Mg Tablet 500 Mg PO Q4HRS 12/02/19 Reported Atorvastatin Calcium 10 Mg Tablet 10 Mg PO HS 12/02/19 Reported Acetaminophen 325 Mg Tablet 650 Mg PO Q6HRS 12/02/19 Reported Metformin Hcl 500 Mg Tablet 250 Mg PO BIDWMEALS 12/03/18 Reported Imodium A-D (Loperamide HCl) 2 Mg Capsule 2 Mg PO DAILY PRN 12/03/18 Reported Risperidone 0.5 Mg Tablet 0.5 Mg PO DAILY 03/21/18 Reported Risperidone 1 Mg Tablet 1 Tab PO QHS 03/21/18 Reported Levothyroxine Sodium 112 Mcg Tablet 1 Tab PO DAILY 03/21/18 Reported Advair 500-50 Diskus (Fluticasone/Salmeterol) 1 Each Disk.w.dev 1 Puff IH BID 03/21/18 Reported Nystatin 15 Gm Powder 1 Scott TP PRN BID PRN 03/21/18 Reported Clonazepam (Clonazepam) 0.5 Mg Tablet 1 Tab PO BID 09/30/16 Reported Montelukast Sodium Tablet (Montelukast Sodium) 10 Mg Tablet 1 Tab PO HS 02/18/16 Reported Gas-X (Simethicone) 80 Mg Tab.chew 160 Mg PO Q2HR PRN 02/18/16 Reported Gabapentin (Gabapentin) 100 Mg Capsule 100 Mg PO TID 02/18/[address] chest 1. Cardiomegaly. 2. Increased consolidative opacities in the left lung and scattered groundglass opacities in the right lung are suspicious for pneumonia. Some of the opacities in the left upper lobe are chronic scarring or atelectasis present on prior exam . 3. New trace bilateral pleural effusions. No large or drainable pleural effusion. Electronically signed by: Renetta Edouard MD (11/04/2020 4:07 PM) [id number] U/S IMPRESSION: 1. Thickened endometrium, may relate to endometrial hyperplasia although en dometrial carcinoma is possible. Recommend further clinical evaluation and biopsy if indicated. 2. Several uterine masses, likely fibroids. Impression . IMPRESSION: 1. Acute on chronic hypoxemic hypercapnic respiratory failure, extubated .10/31, Has been restless on/off. received ativan night of 11/09/ increase hypoxia/ on BIPAP/ 60%, now more awake, off BIPAP 2. Abnormal x-ray compatible with acute on chronic congestive heart failure,/ COVID-19. 3. Abnormal ct chest c/w COVID-19 PNEUMONIA/ ? BACTERIAL PNA 4. COVID-19 5. Acute metabolic toxic encephalopathy. 6. History of status post pacemaker defibrillator implantation. 7. Restless legs syndrome. 8. Schizoaffective disorder. 9. Acute on chronic systolic heart failure. 9. Non-ST segment elevation myocardial infarction. 10. Cardiomyopathy, ejection fraction on 11/2019 revealed EF of 45%. 11. Atrial fibrillation with V paced, currently underlying sinus rhythm. 12. Hyperlipidemia. 13. Hypothyroidism. 14. Fever, rule out bacteremia. 15. Sepsis.resolved 16. JACKIE Plan . PLAN: Extubated on , N/C during the day avoid sedative medications PRN haldol for agitation Off ABX Follow OB recs 2/2/ vaginal bleeding and abnormal U/S,Will need endometrial sample via EMB or D&C. Can be arranged as an outpt Follow cardiology recs--- Plan outpatient ischemic evaluation, ECHO when recovered from COVID-19 Follow nephrology recs-- worsening renal function-- monitor PT/OT/ST DVT/GI PPX social work for D/C planning D/W MIGUEL VALENCIA MD Nov 16, 2020 10:27
--- NOTE | 2020-11-16 10:46 | PDOC ---
PROGRESS NOTES Date of Service: DATE: 11/16/20 TIME: 10:46 Chief Complaint Chief Complaint COVID Positive Acute hypoxemic hypercapnic respiratory failure Acute on chronic heart failure Blood cultures positive Heart failure PMH RI AICD in UTI Hypocalcemia Hypertriglyceridemia Anemia Low platelets Hypoglycemia (43) Elevated Cr Hyperkalemia Vaginal bleeding concerning for endometrial CA History of Present Illness History of Present Illness 11/15/2020 Patient seen exam Chart reviewed She appears weak and ill 10/31 Patient seen and examined in ICU Patient sedated with propofol Possible COVID - pending under investigation Discussed with RN Chart reviewed Blood culture positive Vent settings as follows AC/18/450/40 11/01 Patient is COVID positive Patient seen and examined in ICU Patient sedated with propofol Discussed with RN Discussed with Flight Coordinator Chart reviewed Blood cultures are positive 11/02 Patient is COVID positive Patient seen and examined in ICU Propofol IV Discussed with RN Chart Reviewed Blood cultures positive 11/03/2020 Patient resting w/ NAD on Bipap Patient is COVID positive Patient seen and examined in ICU Propofol IV Discussed with RN Chart Reviewed Blood cultures positive 11/04/2020 Patient seen and evaluated. Tachypneic, afebrile. Still breathing on BiPAP. Continue IV Zosyn, positive blood cultures most likely contaminant. Continue diuresis. She is on Levophed and Precedex. Still with some agitation. CT chest pending to evaluate possible thoracentesis. 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 11/05/2020 Patient seen and evaluated. She is still intermittently requiring BiPAP. Afebrile, tachypneic, tachycardic. Sedated with Haldol. CT chest yesterday showing trace bilateral pleural effusion, no drainable fluid collection. Continue COVID-19 treatment with steroids and supportive care. 11/06/2020 Patient seen and evaluated, status post extubation 10/31. Afebrile, tachycardic. She is breathing intermittently on BiPAP, currently on 2 L nasal cannula. States she is hungry, swallow eval pending. Continue steroids and antibiotics, per ID. Continue diuresis. 11/07/2020 Patient seen evaluate bedside. Status post extubation on 1217. Rising creatinine of 3.3. Pending nephrology evaluation.> 50% time spent in patient chart, labs, and imaging review and in discussion with RN and SW 11/08/2020 Patient seen and examined bedside. No acute events overnight. Saturating 96% on 4 L nasal cannula during the day and tolerating 35% on BiPAP. Passed speech swallow study and is currently on a dysphagia diet. Augmentin discontinued today per ID.> 50% time spent in patient chart, labs, and imaging review and in discussion with RN and MADDIE 11/09/2020 No acute events overnight. Patient is afebrile. Patient seen and examined bedside. Is somewhat more confused and agitated today mainly due to incontine nce to stool. Rectal tube has been removed Hutchins is intact. Will encourage thickened liquids of 240 cc every 6 hours mainly due to JACKIE and worsening potassium. Will defer the rest of the management to nephrology for improving renal function.> 50% time spent in patient chart, labs, and imaging review and in discussion with RN and MADDIE 11/10/2020 Patient given 2 mg IV Ativan last night and subsequently placed on BiPAP. Will change dose to 0.5 p.o. Ativan and see if we can wean off BiPAP and put back on nasal cannula. Patient's chart, labs, images were reviewed and discussed with RN 11/11/2020 No acute events overnight. Patient tolerated BiPAP at night. Currently saturating 94% on 5 L nasal cannula. Elevating potassium levels. Sodium bicarb started. Patient's chart, labs, images were reviewed and discussed with RN 11/12/2020 No acute events overnight. Patient's drowsy this morning but saturating 95% on 3 L nasal cannula. Cannulated patient had some vaginal bleeding and the heparin was held this morning. Discussion with the RN states that her Hutchins might have been tugged causing that episode of bleeding. However patient has not been bleeding this morning and Hutchins and rectal tube was not placed. Patient's chart, labs, images were reviewed and discussed with RN 11/13/2020 No acute events overnight. Patient continues to be drowsy but is following commands and able to make requests for the nurse. Patient saturating 98% on 3 L nasal cannula. Still has some vaginal bleeding around the Hutchins. Rectal tube will be removed today. Will discuss with nephrology for Hutchins removal. Consult gynecology for vaginal bleeding. Patient's chart, labs, images were reviewed and discussed with RN 11/14/20 Continues to be confused and lethargic. Patient is able to communicate. Vitals Vitals Vital Signs Date Time Temp Pulse Resp B/P (MAP) Pulse Ox O2 Delivery O2 Flow Rate FiO2 11/16/20 09:48 93 151/94 11/16/20 07:00 98.6 18 95 Nasal Cannula 2.0 98.6 Physical Exam Physical Exam GENERAL: Weak ill and confused HEENT: Both pupils are round and reacting. No conjunctival lesion. No lesion in the mouth. NECK: Supple, no JVP, no lymphadenopathy. LUNGS: Clear. HEART: S1, S2 regular. ABDOMEN: Soft bowel sounds present nontender nondistended Fecal tube present EXTREMITIES: No edema or cyanosis. SKIN: Unremarkable. NEUROLOGIC: Lethargic General: mild distress, Other (Appears lethargic) Heart: Regular rate Lungs: Clear Abdomen: Normal bowel sounds Extremities: No clubbing Skin: No breakdown Labs LABS Laboratory Tests Test 11/15/20 11:59 11/15/20 16:54 11/15/20 20:57 11/16/20 05:45 Glucose (Fingerstick) 112 mg/dL (70-99) 76 mg/dL (70-99) 89 mg/dL (70-99) Sodium Level 140 mmol/L (136-145) Potassium Level 4.8 mmol/L (3.5-5.1) Chloride Level 104 mmol/L (98-107) Carbon Dioxide Level 35 mmol/L (21-32) Anion Gap 1 (6-14) Blood Urea Nitrogen 25 mg/dL (7-20) Creatinine 3.1 mg/dL (0.6-1.0) Estimated GFR (Cockcroft-Gault) 18.6 Glucose Level 95 mg/dL (70-99) Calcium Level 9.2 mg/dL (8.5-10.1) Phosphorus Level 4.4 mg/dL (2.6-4.7) Albumin 1.6 g/dL (3.4-5.0) Test 11/16/20 08:26 Glucose (Fingerstick) 81 mg/dL (70-99) Assessment and Plan Assessmemt and Plan Problems Medical Problems: (1) AMS (altered mental status) Status: Acute (2) Hypercapnia Status: Acute (3) Person under investigation for COVID-19 Status: Acute (4) Respiratory failure Status: Acute (5) UTI (urinary tract infection) Status: Acute Comment Review of Relevant I have reviewed the following items lucas (where applicable) has been applied. Labs Laboratory Tests Test 11/14/20 11:44 11/14/20 16:34 11/14/20 20:45 11/14/20 21:04 Glucose (Fingerstick) 178 mg/dL (70-99) 294 mg/dL (70-99) 142 mg/dL (70-99) Urine Sodium 65 mmol/L (Not Estab.) Urine Potassium 7.9 mmol/L (Not Estab.) Urine Chloride 45 mmol/L (Not Estab.) Test 11/14/20 21:20 11/15/20 06:00 11/15/20 07:31 11/15/20 11:59 Urine Collection Type U cath Urine Color Yellow Urine Clarity Clear Urine pH 7.5 (<5.0-8.0) Urine Specific [place] <=1.005 (1.000-1.030) Urine Protein 100 mg/dL (NEG-TRACE) Urine Glucose (UA) Negative mg/dL (NEG) Urine Ketones (Stick) Negative mg/dL (NEG) Urine Blood Negative (NEG) Urine Nitrite Negative (NEG) Urine Bilirubin Negative (NEG) Urine Urobilinogen Dipstick 0.2 mg/dL (0.2 mg/dL) Urine Leukocyte Esterase Negative (NEG) Urine RBC Occ /HPF (0-2) Urine WBC Occ /HPF (0-4) Urine Bacteria 0 /HPF (0-FEW) Sodium Level 141 mmol/L (136-145) Potassium Level 4.6 mmol/L (3.5-5.1) Chloride Level 104 mmol/L (98-107) Carbon Dioxide Level 36 mmol/L (21-32) Anion Gap 1 (6-14) Blood Urea Nitrogen 31 mg/dL (7-20) Creatinine 2.9 mg/dL (0.6-1.0) Estimated GFR (Cockcroft-Gault) 20.1 Glucose Level 110 mg/dL (70-99) Calcium Level 9.0 mg/dL (8.5-10.1) Phosphorus Level 4.5 mg/dL (2.6-4.7) Albumin 1.6 g/dL (3.4-5.0) Glucose (Fingerstick) 162 mg/dL (70-99) 112 mg/dL (70-99) Test 11/15/20 16:54 11/15/20 20:57 11/16/20 05:45 11/16/20 08:26 Glucose (Fingerstick) 76 mg/dL (70-99) 89 mg/dL (70-99) 81 mg/dL (70-99) Sodium Level 140 mmol/L (136-145) Potassium Level 4.8 mmol/L (3.5-5.1) Chloride Level 104 mmol/L (98-107) Carbon Dioxide Level 35 mmol/L (21-32) Anion Gap 1 (6-14) Blood Urea Nitrogen 25 mg/dL (7-20) Creatinine 3.1 mg/dL (0.6-1.0) Estimated GFR (Cockcroft-Gault) 18.6 Glucose Level 95 mg/dL (70-99) Calcium Level 9.2 mg/dL (8.5-10.1) Phosphorus Level 4.4 mg/dL (2.6-4.7) Albumin 1.6 g/dL (3.4-5.0) Laboratory Tests Test 11/15/20 11:59 11/15/20 16:54 11/15/20 20:57 11/16/20 05:45 Glucose (Fingerstick) 112 mg/dL (70-99) 76 mg/dL (70-99) 89 mg/dL (70-99) Sodium Level 140 mmol/L (136-145) Potassium Level 4.8 mmol/L (3.5-5.1) Chloride Level 104 mmol/L (98-107) Carbon Dioxide Level 35 mmol/L (21-32) Anion Gap 1 (6-14) Blood Urea Nitrogen 25 mg/dL (7-20) Creatinine 3.1 mg/dL (0.6-1.0) Estimated GFR (Cockcroft-Gault) 18.6 Glucose Level 95 mg/dL (70-99) Calcium Level 9.2 mg/dL (8.5-10.1) Phosphorus Level 4.4 mg/dL (2.6-4.7) Albumin 1.6 g/dL (3.4-5.0) Test 11/16/20 08:26 Glucose (Fingerstick) 81 mg/dL (70-99) Microbiology 10/30/20 Blood Culture - Final, Complete 10/30/20 Urine Culture - Final, Complete 10/30/20 Antimicrobic Susceptibility - Final, Complete Medications Current Medications Acetaminophen (Tylenol Supp) 975 mg 1X ONCE AR Last administered on 10/30/20at 03:54; Start 10/30/20 at 03:45; Stop 10/30/20 at 03:46; Status DC Piperacillin Sod/ Tazobactam Sod 3.375 gm/Sodium Chloride 50 ml @ 100 mls/hr 1X ONCE IV Last administered on 10/30/20at 04:54; Start 10/30/20 at 04:45; Stop 10/30/20 at 05:14; Status DC Sodium Chloride 1,000 ml @ 1,000 mls/hr 1X ONCE IV Last administered on 10/30/20at 04:52; Start 10/30/20 at 04:30; Stop 10/30/20 at 05:29; Status DC Sodium Chloride 1,000 ml @ 1,000 mls/hr 1X ONCE IV Last administered on 10/30/20at 05:15; Start 10/30/20 at 05:30; Stop 10/30/20 at 06:29; Status DC Ondansetron HCl (Zofran) 4 mg PRN Q8HRS PRN IV NAUSEA/VOMITING; Start 10/30/20 at 06:00; Stop 10/31/20 at 05:59; Status DC Sodium Chloride 1,000 ml @ 75 mls/hr [id number] IV Last administered on 10/30/20at 22:15; Start 10/30/20 at 06:00; Stop 10/31/20 at 05:59; Status DC Piperacillin Sod/ Tazobactam Sod (Zosyn Per Pharmacy) 1 each PRN DAILY PRN MC SEE COMMENTS; Start 10/30/20 at 06:00; Stop 11/06/20 at 11:03; Status DC Enoxaparin Sodium (Lovenox 120mg Syringe) 110 mg 1X ONCE SQ Last administered on 10/30/20at 06:27; Start 10/30/20 at 06:15; Stop 10/30/20 at 06:16; Status DC Midazolam HCl 100 mg/Sodium Chloride 100 ml @ 0 mls/hr ONCE ONCE IV Last administered on 10/30/20at 07:10; Start 10/30/20 at 06:45; Stop 10/30/20 at 06:46; Status DC Fentanyl Citrate (Fentanyl 2ml Vial) 100 mcg 1X ONCE IV Last administered on 10/30/20at 07:38; Start 10/30/20 at 07:30; Stop 10/30/20 at 07:31; Status DC Piperacillin Sod/ Tazobactam Sod 4.5 gm/Sodium Chloride 100 ml @ 200 mls/hr Q6HRS IV Last administered on 11/04/20at 05:10; Start 10/30/20 at 12:00; Stop 11/04/20 at 09:59; Status DC Propofol 100 ml @ 3.408 mls/ hr CONT PRN IV PER PROTOCOL Last administered on 10/31/20at 12:07; Start 10/30/20 at 09:00; Stop 11/13/20 at 08:16; Status DC Furosemide (Lasix) 40 mg 1X ONCE IVP Last administered on 10/30/20at 10:06; Start 10/30/20 at 09:45; Stop 10/30/20 at 09:46; Status DC Etomidate (Amidate) 20 mg STK-MED ONCE IV ; Start 10/30/20 at 10:43; Stop 10/30/20 at 10:43; Status DC Succinylcholine Chloride (Anectine) 200 mg STK-MED ONCE .ROUTE ; Start 10/30/20 at 10:43; Stop 10/30/20 at 10:44; Status DC Vancomycin HCl (Vanco Per Pharmacy) 1 each PRN DAILY PRN MC SEE COMMENTS Last administered on 10/31/20at 09:51; Start 10/30/20 at 11:00; Stop 10/31/20 at 11:11; Status DC Vancomycin HCl 1.75 gm/Sodium Chloride 500 ml @ 250 mls/hr ONCE ONCE IV Last administered on 10/30/20at 12:36; Start 10/30/20 at 11:30; Stop 10/30/20 at 13:29; Status DC Aspirin (Aspirin Chewable) 324 mg 1X ONCE PO ; Start 10/30/20 at 15:15; Stop 10/30/20 at 15:22; Status DC Aspirin (Aspirin Chewable) 81 mg DAILYWBKFT PO Last administered on 11/16/20at 09:45; Start 10/31/20 at 08:00 Heparin Sodium (Porcine) (Heparin Sodium) 5,000 unit Q8HRS SQ Last administered on 11/16/20 05:26; Start 10/30/20 at 22:00 Carvedilol (Coreg) 3.125 mg BIDWMEALS PO Last administered on 10/31/20at 09:27; Start 10/30/20 at 17:00; Stop 10/31/20 at 15:45; Status DC Vancomycin HCl 1.75 gm/Sodium Chloride 500 ml @ 250 mls/hr Q24H IV ; Start 10/31/20 at 13:00; Stop 10/31/20 at 11:11; Status DC Fentanyl Citrate (Fentanyl 2ml Vial) 50 mcg PRN Q2HR PRN IVP PAIN Last administered on 10/31/20at 20:08; Start 10/31/20 at 07:45 Vancomycin HCl (Vancomycin Trough Level) 1 each 1X ONCE MC ; Start 11/01/20 at 12:30; Stop 10/31/20 at 13:36; Status DC Potassium Bicarbonate (Potassium Effervescent Tablet) 80 meq 1X ONCE PO Last administered on 10/31/20at 13:20; Start 10/31/20 at 09:45; Stop 10/31/20 at 09:46; Status DC Acetaminophen (Tylenol) 650 mg Q6HRS PO Last administered on 11/15/20 16:23; Start 10/31/20 at 12:00 Atorvastatin Calcium (Lipitor) 10 mg HS PO Last administered on 11/15/20 22:02; Start 10/31/20 at 21:00 Bupropion HCl (Wellbutrin Xl) 150 mg DAILY PO Last administered on 11/16/20 09:45; Start 10/31/20 at 12:00 Calcium Carbonate/ Glycine (Oscal) 500 mg Q4HRS PO Last administered on 11/16/20 09:47; Start 10/31/20 at 12:00 Clonazepam (KlonoPIN) 0.5 mg BID PO Last administered on 11/13/20at 09:03; Start 10/31/20 at 12:00; Stop 11/13/20 at 13:12; Status DC Clonidine HCl (Catapres) 0.2 mg TID PO Last administered on 11/16/20 09:48; Start 10/31/20 at 12:00 Diphenoxylate HCl/ Atropine (Lomotil) 1 tab TID PO Last administered on 11/16/20 09:46; Start 10/31/20 at 14:00 Doxycycline Hyclate (Vibra-Tab) 100 mg BID PO Last administered on 11/01/20 08:43; Start 10/31/20 at 12:00; Stop 11/02/20 at 16:50; Status DC Famotidine (Pepcid) 20 mg HS PO Last administered on 11/15/20 22:02; Start 10/31/20 at 21:00 Gabapentin (Neurontin) 100 mg TID PO Last administered on 11/16/20 09:45; St art 10/31/20 at 14:00 Ibuprofen (Motrin) 400 mg PRN Q6HRS PRN PO INFLAMMATION; Start 10/31/20 at 11:15; Stop 11/14/20 at 20:11; Status DC Insulin Human Regular (HumuLIN R VIAL) 100 unit BIDWMEALS SQ ; Start 10/31/20 at 17:00; Status UNV Albuterol/ Ipratropium (Duoneb) 3 ml Q4HRS NEB ; Start 10/31/20 at 12:00; Stop 11/02/20 at 07:02; Status DC Lactobacillus Rhamnosus (Culturelle) 1 cap BID PO Last administered on 11/16/20 09:46; Start 10/31/20 at 12:00 Levothyroxine Sodium (Synthroid) 112 mcg DAILY06 PO Last administered on 11/16/20 05:25; Start 11/01/20 at 09:00 Loperamide HCl (Imodium) 2 mg PRN DAILY PRN PO DIARRHEA Last administered on 11/07/20at 09:53; Start 10/31/20 at 11:15 Lorazepam (Ativan) 0.5 mg PRN Q8HRS PRN PO ANXIETY Last administered on 11/10/20at 14:03; Start 10/31/20 at 11:15 Metformin HCl (Glucophage) 250 mg BIDWMEALS PO Last administered on 11/07/20at 17:25; Start 10/31/20 at 17:00; Stop 11/08/20 at 08:58; Status DC Nystatin (Nystop) 1 scott PRN BID PRN TP RASH Last administered on 11/14/20at 08:19; Start 10/31/20 at 11:15 Polyethylene Glycol (miraLAX PACKET) 17 gm DAILY PO Last administered on 01/09/20 09:13; Start 10/31/20 at 12:00; Stop 11/09/20 at 10:19; Status DC Risperidone (RisperDAL) 1 mg QHS PO Last administered on 11/15/20 22:02; Start 10/31/20 at 21:00 Ropinirole HCl (Requip) 2 mg DAILY PO Last administered on 11/16/20 09:45; S tart 11/01/20 at 09:00 Simethicone (Gas-X) 160 mg Q2HR PRN PO GAS / BLOATING; Start 10/31/20 at 11:15; Stop 10/31/20 at 11:52; Status DC Tramadol HCl (Ultram) 50 mg PRN Q6HRS PRN PO MILD TO MODERATE PAIN; Start 10/31/20 at 11:15 Vitamin B Complex (Dustin B) 1 tab DAILY PO Last administered on 11/16/20 09:48; Start 10/31/20 at 12:00 Carvedilol (Coreg) 50 mg BIDWMEALS PO ; Start 10/31/20 at 12:00; Stop 10/31/20 at 13:34; Status DC Dicyclomine HCl (Bentyl) 20 mg TID PO Last administered on 11/15/20 22:01; Start 10/31/20 at 14:00 Non-Formulary Medication (Fluticasone/ Salmeterol (Advair 500-50 Diskus)) 1 puff BID IH ; Start 10/31/20 at 21:00; Status UNV Folic Acid (Folic Acid) 0.5 mg DAILY PO Last administered on 11/16/20 09:46; Start 10/31/20 at 12:00 Cetirizine HCl (ZyrTEC) 10 mg DAILY PO Last administered on 11/16/20 09:48; Start 11/01/20 at 09:00 Magnesium Oxide (Magnesium Oxide) 400 mg DAILY PO Last administered on 11/16/20 09:46; Start 10/31/20 at 12:00 Multivitamins (Thera M Plus) 1 tab DAILY PO Last administered on 11/16/20 09:45; Start 10/31/20 at 12:30 Ondansetron HCl (Zofran Odt) 4 mg PRN Q8HRS PRN PO NAUSEA/VOMITING; Start 10/31/20 at 12:30 Non-Formulary Medication (Peg 400/ Hypromellose/ Glycerin (Artificial Tears Drops)) 1 drop QID OS ; Start 10/31/20 at 13:00; Status UNV Glycerin/ Hypromellose/ Polyethylene (Artificial Tears) 2 drop Q4HRS OU Last ad ministered on 11/16/20at 09:58; Start 10/31/20 at 16:00 Non-Formulary Medication (Polyvinyl Alcohol (Tears Again)) 2 drop Q4HRS EACHEYE ; Start 10/31/20 at 12:00; Status UNV Non-Formulary Medication (Risperidone ) 0.5 mg DAILY PO ; Start 11/01/20 at 09:00; Status UNV Guaifenesin (Robitussin) 200 mg PRN Q4HRS PRN PO COUGH Last administered on 11/10/20at 21:24; Start 10/31/20 at 12:45 Insulin Human Lispro (HumaLOG) 0-5 UNITS TIDWMEALS SQ Last administered on 11/15/20at 09:15; Start 10/31/20 at 12:00 Dextrose (Dextrose 50%-Water Syringe) 12.5 gm PRN Q15MIN PRN IV SEE COMMENTS Last administered on 11/10/20at 14:01; Start 10/31/20 at 11:45 Simethicone (Gas-X) 160 mg PRN Q2HR PRN PO GAS / BLOATING Last administered on 11/06/20at 17:23; Start 10/31/20 at 12:00 Albuterol Sulfate (Ventolin Neb Soln) 2.5 mg Q6HRS NEB ; Start 10/31/20 at 13:00; Stop 11/02/20 at 07:02; Status DC Budesonide (Pulmicort) 0.5 mg RTBID NEB ; Start 10/31/20 at 20:00; Stop 11/01/20 at 13:52; Status DC Carvedilol (Coreg) 12.5 mg BIDWMEALS PO Last administered on 11/01/20at 08:43; Start 10/31/20 at 17:00; Stop 11/03/20 at 11:10; Status DC Dextrose (Dextrose 50%-Water Syringe) 12.5 gm PRN Q15MIN PRN IV SEE COMMENTS; Start 10/31/20 at 18:00; Status UNV Furosemide (Lasix) 40 mg 1X ONCE IVP Last administered on 11/01/20at 12:04; Start 11/01/20 at 11:45; Stop 11/01/20 at 11:46; Status DC Furosemide (Lasix) 40 mg DAILY PO ; Start 11/02/20 at 09:00; Stop 11/03/20 at 11:10; Status DC Potassium Chloride (Klor-Con) 10 meq DAILYWBKFT PO Last administered on 11/07/20at 09:08; Start 11/02/20 at 08:00; Stop 11/08/20 at 14:35; Status DC Amino Acids/ Glycerin/ Electrolytes 1,000 ml @ 80 mls/hr [id number] IV ; Start 11/01/20 at 13:00; Stop 11/01/20 at 13:00; Status DC Amino Acids/ Glycerin/ Electrolytes 1,000 ml @ 100 mls/hr Q10H IV Last administered on 11/09/20at 08:28; Start 11/01/20 at 13:30; Stop 11/09/20 at 14:40; Status DC Acetaminophen (Tylenol Supp) 650 mg PRN Q6HRS PRN AR MILD PAIN / TEMP > 100.3'F Last administered on 11/02/20at 07:27; Start 11/02/20 at 00:00 Albuterol Sulfate (Ventolin Neb Soln) 2.5 mg PRN Q6HRS PRN NEB WHEEZING; Start 11/03/20 at 06:00 Albuterol/ Ipratropium (Duoneb) 3 ml PRN Q4HRS PRN NEB WHEEZING; Start 11/02/20 at 07:00; Stop 11/02/20 at 07:03; Status DC Lorazepam (Ativan Inj) 2 mg PRN Q4HRS PRN IVP ANXIETY / AGITATION Last administered on 11/09/20at 19:52; Start 11/02/20 at 08:30; Stop 11/10/20 at 09:16; Status DC Haloperidol Lactate (Haldol Inj) 5 mg PRN Q6HRS PRN IVP AGITATION-2ND CHOICE Last administered on 11/10/20at 23:40; Start 11/02/20 at 11:00; Stop 11/13/20 at 13:15; Status DC Labetalol HCl (Normodyne Iv Push) 20 mg PRN Q2HR PRN IVP HYPERTENSION Last administered on 11/12/20at 05:24; Start 11/02/20 at 11:30 Metoprolol Tartrate (Lopressor Vial) 5 mg Q6HRS IVP Last administered on 11/04/20at 05:11; Start 11/03/20 at 12:00; Stop 11/04/20 at 09:21; Status DC Furosemide (Lasix) 40 mg DAILY IVP Last administered on 11/05/20at 10:27; Start 11/03/20 at 12:00; Stop 11/06/20 at 11:34; Status DC Dexmedetomidine HCl 400 mcg/ Sodium Chloride 100 ml @ 0 mls/hr CONT PRN IV PER PROTOCOL Last administered on 11/04/20at 05:42; Start 11/03/20 at 12:00; Stop 11/13/20 at 08:16; Status DC Sodium Chloride 500 ml @ 500 mls/hr 1X PRN PRN IV SEE COMMENTS Last administered on 11/03/20at 13:34; Start 11/03/20 at 12:00; Stop 11/13/20 at 08:16; Status DC Atropine Sulfate (ATROPINE 0.5mg SYRINGE) 0.5 mg PRN Q5MIN PRN IV SEE COMMENTS; Start 11/03/20 at 12:00; Stop 11/13/20 at 08:16; Status DC Norepinephrine Bitartrate 8 mg/ Dextrose 258 ml @ 17.202 mls/ hr CONT PRN IV PER PROTOCOL Last administered on 11/04/20at 05:54; Start 11/03/20 at 13:45; Stop 11/11/20 at 10:17; Status DC Albuterol Sulfate (Ventolin Hfa) 1 puff PRN Q6HRS PRN INH SHORTNESS OF AIR Last administered on 11/04/20at 13:50; Start 11/04/20 at 13:45 Metoprolol Tartrate (Lopressor Vial) 5 mg 1X ONCE IVP Last administered on 11/04/20at 14:36; Start 11/04/20 at 14:30; Stop 11/04/20 at 14:31; Status DC Dexamethasone Sodium Phosphate (Decadron) 6 mg DAILY IVP Last administered on 11/11/20at 09:15; Start 11/05/20 at 09:00; Stop 11/11/20 at 10:17; Status DC Metoprolol Tartrate (Lopressor Vial) 5 mg Q6HRS IVP Last administered on 11/11/20at 11:00; Start 11/05/20 at 08:15; Stop 11/11/20 at 16:02; Status DC Piperacillin Sod/ Tazobactam Sod 3.375 gm/Sodium Chloride 50 ml @ 100 mls/hr Q6HRS IV Last administered on 11/06/20at 00:04; Start 11/05/20 at 12:00; Stop 11/06/20 at 09:15; Status DC Doxycycline Hyclate (Vibra-Tab) 100 mg BID PO ; Start 11/05/20 at 09:00; Stop 11/05/20 at 09:43; Status DC Sodium Chloride 1,000 ml @ 125 mls/hr CONT PRN IV ; Start 11/06/20 at 12:00 Sodium Chloride 1,000 ml @ 125 mls/hr Q8H IV Last administered on 11/06/20at 23:41; Start 11/06/20 at 16:30; Stop 11/07/20 at 10:52; Status DC Amoxicillin/ Clavulanate Potassium (Augmentin 500/ 125mg) 1 tab BID PO Last administered on 11/08/20at 09:14; Start 11/07/20 at 10:00; Stop 11/08/20 at 10:45; Status DC Polyethylene Glycol (miraLAX PACKET) 17 gm PRN DAILY PRN PO CONSTIPATION; Start 11/09/20 at 10:30 Sodium Bicarbonate 50 meq/Sodium Chloride 1,050 ml @ 100 mls/hr [id number] IV Last administered on 11/13/20at 06:20; Start 11/09/20 at 16:00; Stop 11/13/20 at 11:10; Status DC Dextrose (Dextrose 50%-Water Syringe) 25 gm 1X ONCE IV Last administered on 11/09/20at 15:06; Start 11/09/20 at 15:00; Stop 11/09/20 at 15:01; Status DC Insulin Human Lispro (HumaLOG) 10 units 1X ONCE IV ; Start 11/09/20 at 15:00; Stop 11/09/20 at 14:56; Status DC Insulin Human Regular (HumuLIN R VIAL) 10 unit 1X ONCE IV Last administered on 11/09/20at 15:13; Start 11/09/20 at 15:00; Stop 11/09/20 at 15:01; Status DC Ziprasidone (Geodon Im) 10 mg PRN QHS PRN IM ANXIETY / AGITATION; Start 11/09/20 at 22:45 Sodium Bicarbonate (Sodium Bicarb Adult 8.4% Syr) 50 meq 1X ONCE IV Last administered on 11/10/20at 07:41; Start 11/10/20 at 06:30; Stop 11/10/20 at 06:31; Status DC Dextrose (Dextrose 50%-Water Syringe) 25 gm 1X ONCE IV Last administered on 11/10/20at 07:42; Start 11/10/20 at 06:30; Stop 11/10/20 at 06:31; Status DC Insulin Human Regular (HumuLIN R VIAL) 10 unit 1X ONCE IV Last administered on 11/10/20at 07:43; Start 11/10/20 at 06:30; Stop 11/10/20 at 06:31; Status DC Sodium Polystyrene Sulfonate (Kayexalate) 30 gm 1X ONCE PO Last administered on 11/10/20at 14:02; Start 11/10/20 at 06:30; Stop 11/10/20 at 06:31; Status DC Lorazepam (Ativan Inj) 0.5 mg PRN Q4HRS PRN IVP ANXIETY / AGITATION Last administered on 11/12/20at 03:55; Start 11/10/20 at 09:15; Stop 11/13/20 at 13:12; Status DC Sodium Polystyrene Sulfonate (Kayexalate) 15 gm 1X ONCE PO Last administered on 11/10/20at 18:11; Start 11/10/20 at 19:00; Stop 11/10/20 at 19:01; Status DC Metoprolol Tartrate (Lopressor Vial) 5 mg PRN Q6HRS PRN IVP TACHYCARDIA; Start 11/11/20 at 16:15 Metoprolol Succinate (Toprol Xl) 100 mg DAILY PO Last administered on 11/16/20at 09:47; Start 11/12/20 at 09:00 Dextrose/Sodium Chloride 1,000 ml @ 75 mls/hr [id number] IV Last administered on 11/16/20at 05:47; Start 11/13/20 at 11:15 Haloperidol Lactate (Haldol Inj) 5 mg PRN Q6HRS PRN IVP AGITATION; Start 11/13/20 at 13:15 Active Scripts Active Lomotil Tablet (Diphenoxylate Hcl/Atropine) 1 Each Tablet 1 Tab PO TID 3 Days Dicyclomine Hcl 20 Mg Tablet 1 Tab PO TID 10 Days Zithromax (Azithromycin) 250 Mg Tablet 250 Mg PO DIRECTED Take 2 PO x 1 days Then take 1 PO q 24 hour for the next 4 days Doxycycline Hyclate 100 Mg Tablet 1 Tab PO BID 3 Days Culturelle (Lactobacillus Rhamnosus Gg) 1 Each Cap.sprink 1 Cap PO BID 14 Days Reported Wellbutrin Xl (Bupropion Hcl) 150 Mg Tab.er.24h 150 Mg PO DAILY Artificial Tears Drops (Peg 400/Hypromellose/Glycerin) 15 Ml Drops 1 Drop OS QID 30 Days Folic Acid 0.4 Mg Tablet 0.4 Mg PO DAILY Duoneb 0.5-3(2.5) Mg/3 Ml (Albuterol/Ipratropium) 3 Ml Ampul.neb 3 Ml NEB Q4HRS Clonidine Hcl 0.2 Mg Tablet 0.2 Mg PO TID Ativan (Lorazepam) 0.5 Mg Tablet 0.5 Mg PO Q8HRS PRN Ibuprofen 400 Mg Tablet 400 Mg PO PRN Q6HRS PRN Guaifenesin Ac Cough Syrup (Guaifenesin/Codeine Phosphate) 473 Ml Liquid 10 Ml PO PRN Q4-6HRS PRN MDD 60 Milliliter(s) 4 Days Multiple Vitamins (Multivitamin) 1 Each Tablet 1 Tab PO DAILY 30 Days Miralax (Polyethylene Glycol 3350) 17 Gm Powd.pack 1 Packet PO DAILY 2 Days dissolve in water Famotidine 20 Mg Tablet 20 Mg PO HS Zofran (Ondansetron Hcl) 4 Mg Tablet 4 Mg PO Q8HRS PRN Tramadol Hcl 50 Mg Tablet 50 Mg PO Q6HRS PRN Tears Again (Polyvinyl Alcohol) 15 Ml Drops 2 Drop EACHEYE Q4HRS 30 Days Polyvinyl Alcohol 15 Ml Drops 2 Drop EACHEYE Q4HRS 30 Days Ropinirole Hcl 1 Mg Tablet 1 Mg PO BID B-Complex Plus Vitamin C (B Complex With Vitamin C) 1 Each Tablet 1 Each PO DAILY Magnesium Oxide 400 Mg Tablet 400 Mg PO DAILY Loratadine 10 Mg Tablet 10 Mg PO DAILY Humalog (Insulin Lispro) 100 Unit/1 Ml Vial 100 Unit SQ BIDWMEALS 70 - 150 0 units 151 - 200 0 units 201 - 250 2 units 251 - 300 3 units 301 - 349 4 units if FSBS is under 70 or 350 and over call MD [guaifenesin Syrup] 10 Ml PO Q4HRS PRN Coreg (Carvedilol) 25 Mg Tablet 50 Mg PO BIDWMEALS Peridex (Chlorhexidine Gluconate) 15 Ml Mouthwash 15 Ml PO BID 30 Days Swish in mouth for 30 seconds then spit out Calcium Carbonate 500 Mg Tablet 500 Mg PO Q4HRS Atorvastatin Calcium 10 Mg Tablet 10 Mg PO HS Acetaminophen 325 Mg Tablet 650 Mg PO Q6HRS Metformin Hcl 500 Mg Tablet 250 Mg PO BIDWMEALS Imodium A-D (Loperamide HCl) 2 Mg Capsule 2 Mg PO DAILY PRN Risperidone 0.5 Mg Tablet 0.5 Mg PO DAILY Risperidone 1 Mg Tablet 1 Tab PO QHS Levothyroxine Sodium 112 Mcg Tablet 1 Tab PO DAILY Advair 500-50 Diskus (Fluticasone/Salmeterol) 1 Each Disk.w.dev 1 Puff IH BID Nystatin 15 Gm Powder 1 Scott TP PRN BID PRN Clonazepam (Clonazepam) 0.5 Mg Tablet 1 Tab PO BID Gas-X (Simethicone) 80 Mg Tab.chew 160 Mg PO Q2HR PRN Gabapentin (Gabapentin) 100 Mg Capsule 100 Mg PO TID Vitals/I & O Vital Sign - Last 24 Hours 11/15/20 11/15/20 11/15/20 11/15/20 11:00 15:00 16:20 19:00 Temp 96.9 96.4 97.8 96.9 96.4 97.8 Pulse 83 78 78 82 Resp 16 16 20 B/P (MAP) 141/73 (95) 131/73 (92) 131/73 164/84 (110) Pulse Ox 99 100 96 O2 Delivery Nasal Cannula Nasal Cannula Nasal Cannula O2 Flow Rate 4.0 4.0 4.0 11/15/20 11/15/20 11/15/20 11/16/20 20:00 22:01 22:59 03:23 Temp 98.0 97.9 98.0 97.9 Pulse 82 81 81 Resp 22 18 B/P (MAP) 164/84 147/80 (102) 180/88 (118) Pulse Ox 98 94 O2 Delivery Nasal Cannula Nasal Cannula Nasal Cannula O2 Flow Rate 3.0 4.0 4.0 11/16/20 11/16/20 11/16/20 07:00 09:47 09:48 Temp 98.6 98.6 Pulse 93 93 93 Resp 18 B/P (MAP) 151/94 (113) 151/94 151/94 Pulse Ox 95 O2 Delivery Nasal Cannula O2 Flow Rate 2.0 Intake and Output 11/15/20 11/15/20 11/16/20 15:00 23:00 07:00 Intake Total 0 ml 900 ml Output Total 1500 ml Balance -1500 ml 900 ml Justicifation of Admission Dx: Justifications for Admission: Justification of Admission Dx: Yes WAYNE TROY MD Nov 16, 2020 10:46
[2020-11-16 11:00] VITALS: BP 180/94
[2020-11-16] MEDS: DICYCLOMINE HCL 10 MG CAPSULE PO SCH ×3 (13:22→20:39)
[2020-11-16 15:00] VITALS: BP 164/89
[2020-11-16 19:55] VITALS: BP 143/80
[2020-11-16] MEDS: FAMOTIDINE 20 MG TABLET. PO SCH (20:25)
[2020-11-16] MEDS: risperiDONE 1 MG TABLET. PO SCH (20:25)
[2020-11-16] MEDS: ATORVASTATIN CALCIUM 10 MG TABLET. PO SCH (20:25)
[2020-11-16 23:15] VITALS: BP 130/66
[2020-11-17 03:59] VITALS: BP 144/87
[2020-11-17] MEDS: POLYVINYL ALCOHOL 1.4% OPHTH SOLUTION 15ML BOTTLE. OU SCH ×5 (04:00→20:45)
[2020-11-17] MEDS: CALCIUM CARBONATE 500 MG TABLET PO SCH ×5 (04:00→20:45)
[2020-11-17] MEDS: LEVOTHYROXINE 112 MCG TABLET PO SCH (05:01)
[2020-11-17] MEDS: HEPARIN for SUB-Q USE 5,000 UNIT/ML VIAL. SQ SCH ×3 (05:02→20:46)
[2020-11-17] MEDS: ACETAMINOPHEN 325 MG TABLET. PO SCH ×3 (05:02→17:59)
[2020-11-17 06:04] LABS: ALBUMIN 1.5 g/dL (3.4-5.0); CALCIUM 9.2 mg/dL (8.5-10.1); CREATININE 3.4 mg/dL (0.6-1.0)
[2020-11-17 06:05] LABS: GFR 16.7; PHOSPHORUS 4.7 mg/dL (2.6-4.7); POTASSIUM 4.7 mmol/L (3.5-5.1)
[2020-11-17 06:10] VITALS: BP 151/84
[2020-11-17] MEDS: INSULIN LISPRO 300 UNITS/3 ML VIAL. SQ SCH ×3 (08:00→17:00)
[2020-11-17] MEDS: ASPIRIN CHEWABLE 81 MG TABLET. PO SCH (08:00)
[2020-11-17] MEDS: DICYCLOMINE HCL 10 MG CAPSULE PO SCH ×3 (09:00→21:29)
[2020-11-17] MEDS: rOPINIRole 1 MG TABLET. PO SCH (09:00)
[2020-11-17] MEDS: GABAPENTIN 100 MG CAPSULE. PO SCH ×3 (09:00→20:45)
[2020-11-17] MEDS: FOLIC ACID 1 MG TABLET. PO SCH (09:00)
[2020-11-17] MEDS: METOPROLOL SUCC 24HR ER 100 MG TAB.ER.24H. PO SCH (09:00)
[2020-11-17] MEDS: CETIRIZINE HCL 10 MG TABLET. PO SCH (09:00)
[2020-11-17] MEDS: DIPHENOXYLATE/ATROPINE TABLET. PO SCH ×3 (09:00→20:45)
[2020-11-17] MEDS: LACTOBACILLUS RHAMNOSUS GG 1 CAPSULE. PO SCH ×2 (09:00→20:45)
[2020-11-17] MEDS: cloNIDine HCL 0.2 MG TABLET PO SCH ×3 (09:00→21:29)
[2020-11-17] MEDS: buPROPion XL 150 MG TAB.ER.24H. PO SCH (09:00)
[2020-11-17] MEDS: MULTIVITAMIN with MINERAL TABLET. PO SCH (09:00)
[2020-11-17] MEDS: MAGNESIUM OXIDE 400 MG TABLET PO SCH (09:00)
[2020-11-17] MEDS: VITAMIN B COMPLEX TABLET. PO SCH (09:00)
[2020-11-17 11:00] VITALS: BP 147/85
[2020-11-17] MEDS: IV DEXTROSE 5 %-0.45 % NACL 1,000 ML IV SCH (11:00)
--- NOTE | 2020-11-17 12:17 | PDOC ---
PROGRESS NOTES Date of Service: DATE: 11/17/20 TIME: 12:17 Chief Complaint Chief Complaint impression COVID Positive Acute kidney injury with possible ATN Acute hypoxemic hypercapnic respiratory failure Acute on chronic heart failure Blood cultures positive Heart failure PMH CO AICD in UTI Hypocalcemia Hypertriglyceridemia Anemia Low platelets Hypoglycemia (43) Elevated Cr Hyperkalemia Vaginal bleeding concerning for endometrial CA Creatinine continues to worsen despite ongoing IV fluids and good urine output. Cannot rule out element of interstitial nephritis. nephrology consult ASO TITER CRP History of Present Illness History of Present Illness 11/17/2020 Patient seen exam Chart reviewed She appears weak, confused Acute kidney injury with possible ATN 10/31 Patient seen and examined in ICU Patient sedated with propofol Possible COVID - pending under investigation Discussed with RN Chart reviewed Blood culture positive Vent settings as follows AC/18/450/40 11/01 Patient is COVID positive Patient seen and examined in ICU Patient sedated with propofol Discussed with RN Discussed with Injection Molding Operator Chart reviewed Blood cultures are positive 11/02 Patient is COVID positive Patient seen and examined in ICU Propofol IV Discussed with RN Chart Reviewed Blood cultures positive 11/03/2020 Patient resting w/ NAD on Bipap Patient is COVID positive Patient seen and examined in ICU Propofol IV Discussed with RN Chart Reviewed Blood cultures positive 11/04/2020 Patient seen and evaluated. Tachypneic, afebrile. Still breathing on BiPAP. Continue IV Zosyn, positive blood cultures most likely contaminant. Continue diuresis. She is on Levophed and Precedex. Still with some agitation. CT chest pending to evaluate possible thoracentesis. Total time spent 35 minutes, >50% time spent reviewing charts, reviewing labs, discussing with RN and older adult social work specialist. 11/05/2020 Patient seen and evaluated. She is still intermittently requiring BiPAP. Afebrile, tachypneic, tachycardic. Sedated with Haldol. CT chest yesterday showing trace bilateral pleural effusion, no drainable fluid collection. Continue COVID-19 treatment with steroids and supportive care. 11/06/2020 Patient seen and evaluated, status post extubation 10/31. Afebrile, tachycardic. She is breathing intermittently on BiPAP, currently on 2 L nasal cannula. States she is hungry, swallow eval pending. Continue steroids and antibiotics, per ID. Continue diuresis. 11/07/2020 Patient seen evaluate bedside. Status post extubation on 1217. Rising creatinine of 3.3. Pending nephrology evaluation.> 50% time spent in patient chart, labs, and imaging review and in discussion with RN and MADDIE 11/08/2020 Patient seen and examined bedside. No acute events overnight. Saturating 96% on 4 L nasal cannula during the day and tolerating 35% on BiPAP. Passed speech swallow study and is currently on a dysphagia diet. Augmentin discontinued today per ID.> 50% time spent in patient chart, labs, and imaging review and in discussion with RN and MADDIE 11/09/2020 No acute events overnight. Patient is afebrile. Patient seen and examined bedside. Is somewhat more confused and agitated today mainly due to inc ontinence to stool. Rectal tube has been removed Hutchins is intact. Will encourage thickened liquids of 240 cc every 6 hours mainly due to JACKIE and worsening potassium. Will defer the rest of the management to nephrology for improving renal function.> 50% time spent in patient chart, labs, and imaging review and in discussion with RN and MADDIE 11/10/2020 Patient given 2 mg IV Ativan last night and subsequently placed on BiPAP. Will change dose to 0.5 p.o. Ativan and see if we can wean off BiPAP and put back on nasal cannula. Patient's chart, labs, images were reviewed and discussed with RN 11/11/2020 No acute events overnight. Patient tolerated BiPAP at night. Currently saturating 94% on 5 L nasal cannula. Elevating potassium levels. Sodium bicarb started. Patient's chart, labs, images were reviewed and discussed with RN 11/12/2020 No acute events overnight. Patient's drowsy this morning but saturating 95% on 3 L nasal cannula. Cannulated patient had some vaginal bleeding and the heparin was held this morning. Discussion with the RN states that her Hutchins might have been tugged causing that episode of bleeding. However patient has not been bleeding this morning and Hutchins and rectal tube was not placed. Patient's chart, labs, images were reviewed and discussed with RN 11/13/2020 No acute events overnight. Patient continues to be drowsy but is following commands and able to make requests for the nurse. Patient saturating 98% on 3 L nasal cannula. Still has some vaginal bleeding around the Hutchins. Rectal tube will be removed today. Will discuss with nephrology for Hutchins removal. Consult gynecology for vaginal bleeding. Patient's chart, labs, images were reviewed and discussed with RN 11/14/20 Continues to be confused and lethargic. Patient is able to communicate. Vitals Vitals Vital Signs Date Time Temp Pulse Resp B/P (MAP) Pulse Ox O2 Delivery O2 Flow Rate FiO2 11/17/20 09:00 86 151/84 11/17/20 06:10 97.5 18 100 Nasal Cannula 2.0 97.5 Physical Exam Physical Exam GENERAL: Weak ill and confused HEENT: Both pupils are round and reacting. No conjunctival lesion. No lesion in the mouth. NECK: Supple, no JVP, no lymphadenopathy. LUNGS: Clear. HEART: S1, S2 regular. ABDOMEN: Soft bowel sounds present nontender nondistended Fecal tube present EXTREMITIES: No edema or cyanosis. SKIN: Unremarkable. NEUROLOGIC: Lethargic General: mild distress, Other (Appears lethargic) Heart: Regular rate Lungs: Clear Abdomen: Normal bowel sounds Extremities: No clubbing Skin: No breakdown Labs LABS sit edge of bed Learning Preferences * One-on-One Instruction * Demonstration Problem List (body system elements) * Impaired fnctnl mobility * Heart Rate * Level of Consciousness * Strength * Cognition * Obesity * Balance * Respiration/perfusion * Coordination * Knowledge-safe techniques Patient condition at conclusion of therapy * Pt in bed * Bed alarm on * Call light in reach * Phone in reach * PtIn no apparent distress * Pt denies further needs Communicated Patient Care With (Name, Title) * ANDREI Smart Goal 1 - Bed Mobility Assistance Required * Min Assistance Goal 1 Assessment * Appropriate - Continue Goal 2 - Transfers Assistance Required * Min Assistance Goal 2 - Transfer Type * Sit to Stand Goal 2 Assessment * Appropriate - Continue Goal 3 - Ambulation Assistance Required * Two-Person Assistance Goal 3 - Ambulation Distance * 10' Goal 3 - Ambulation Device * Roller Walker Goal 3 Assessment * Appropriate - Continue Goal 5 * Pt will sit EOB for 5 min maintaining balance indep with or without UE support Goal 5 Assessment * Appropriate - Continue Treatment Plan * Therapeutic Exercise * Bed Mobility Training * Transfer training * Gait Training * Neuromuscular Re-Ed * Dynamic Balance Training Frequency of Treatment Expected * 6 visits/week Duration of Treatment Expected * 2 weeks Discharge Recommendations * Nursing Home Unit Laboratory Tests Test 11/16/20 18:08 11/16/20 20:41 11/17/20 05:00 11/17/20 09:05 Glucose (Fingerstick) 110 mg/dL (70-99) 144 mg/dL (70-99) 108 mg/dL (70-99) Sodium Level 141 mmol/L (136-145) Potassium Level 4.7 mmol/L (3.5-5.1) Chloride Level 103 mmol/L (98-107) Carbon Dioxide Level 35 mmol/L (21-32) Anion Gap 3 (6-14) Blood Urea Nitrogen 22 mg/dL (7-20) Creatinine 3.4 mg/dL (0.6-1.0) Estimated GFR (Cockcroft-Gault) 16.7 Glucose Level 108 mg/dL (70-99) Calcium Level 9.2 mg/dL (8.5-10.1) Phosphorus Level 4.7 mg/dL (2.6-4.7) Albumin 1.5 g/dL (3.4-5.0) Assessment and Plan Assessmemt and Plan Problems Medical Problems: (1) AMS (altered mental status) Status: Acute (2) Hypercapnia Status: Acute (3) Person under investigation for COVID-19 Status: Acute (4) Respiratory failure Status: Acute (5) UTI (urinary tract infection) Status: Acute Comment Review of Relevant I have reviewed the following items lucas (where applicable) has been applied. Labs Laboratory Tests Test 11/15/20 16:54 11/15/20 20:57 11/16/20 05:45 11/16/20 08:26 Glucose (Fingerstick) 76 mg/dL (70-99) 89 mg/dL (70-99) 81 mg/dL (70-99) Sodium Level 140 mmol/L (136-145) Potassium Level 4.8 mmol/L (3.5-5.1) Chloride Level 104 mmol/L (98-107) Carbon Dioxide Level 35 mmol/L (21-32) Anion Gap 1 (6-14) Blood Urea Nitrogen 25 mg/dL (7-20) Creatinine 3.1 mg/dL (0.6-1.0) Estimated GFR (Cockcroft-Gault) 18.6 Glucose Level 95 mg/dL (70-99) Calcium Level 9.2 mg/dL (8.5-10.1) Phosphorus Level 4.4 mg/dL (2.6-4.7) Albumin 1.6 g/dL (3.4-5.0) Test 11/16/20 12:17 11/16/20 18:08 11/16/20 20:41 11/17/20 05:00 Glucose (Fingerstick) 107 mg/dL (70-99) 110 mg/dL (70-99) 144 mg/dL (70-99) Sodium Level 141 mmol/L (136-145) Potassium Level 4.7 mmol/L (3.5-5.1) Chloride Level 103 mmol/L (98-107) Carbon Dioxide Level 35 mmol/L (21-32) Anion Gap 3 (6-14) Blood Urea Nitrogen 22 mg/dL (7-20) Creatinine 3.4 mg/dL (0.6-1.0) Estimated GFR (Cockcroft-Gault) 16.7 Glucose Level 108 mg/dL (70-99) Calcium Level 9.2 mg/dL (8.5-10.1) Phosphorus Level 4.7 mg/dL (2.6-4.7) Albumin 1.5 g/dL (3.4-5.0) Test 11/17/20 09:05 Glucose (Fingerstick) 108 mg/dL (70-99) Laboratory Tests Test 11/16/20 18:08 11/16/20 20:41 11/17/20 05:00 11/17/20 09:05 Glucose (Fingerstick) 110 mg/dL (70-99) 144 mg/dL (70-99) 108 mg/dL (70-99) Sodium Level 141 mmol/L (136-145) Potassium Level 4.7 mmol/L (3.5-5.1) Chloride Level 103 mmol/L (98-107) Carbon Dioxide Level 35 mmol/L (21-32) Anion Gap 3 (6-14) Blood Urea Nitrogen 22 mg/dL (7-20) Creatinine 3.4 mg/dL (0.6-1.0) Estimated GFR (Cockcroft-Gault) 16.7 Glucose Level 108 mg/dL (70-99) Calcium Level 9.2 mg/dL (8.5-10.1) Phosphorus Level 4.7 mg/dL (2.6-4.7) Albumin 1.5 g/dL (3.4-5.0) Microbiology 10/30/20 Blood Culture - Final, Complete 10/30/20 Urine Culture - Final, Complete 10/30/20 Antimicrobic Susceptibility - Final, Complete Medications Current Medications Acetaminophen (Tylenol Supp) 975 mg 1X ONCE MD Last administered on 10/30/20at 03:54; Start 10/30/20 at 03:45; Stop 10/30/20 at 03:46; Status DC Piperacillin Sod/ Tazobactam Sod 3.375 gm/Sodium Chloride 50 ml @ 100 mls/hr 1X ONCE IV Last administered on 10/30/20at 04:54; Start 10/30/20 at 04:45; Stop 10/30/20 at 05:14; Status DC Sodium Chloride 1,000 ml @ 1,000 mls/hr 1X ONCE IV Last administered on 1 12/31/19at 04:52; Start 10/30/20 at 04:30; Stop 10/30/20 at 05:29; Status DC Sodium Chloride 1,000 ml @ 1,000 mls/hr 1X ONCE IV Last administered on 10/30/20at 05:15; Start 10/30/20 at 05:30; Stop 10/30/20 at 06:29; Status DC Ondansetron HCl (Zofran) 4 mg PRN Q8HRS PRN IV NAUSEA/VOMITING; Start 10/30/20 at 06:00; Stop 10/31/20 at 05:59; Status DC Sodium Chloride 1,000 ml @ 75 mls/hr [id number] IV Last administered on 10/30/20at 22:15; Start 10/30/20 at 06:00; Stop 10/31/20 at 05:59; Status DC Piperacillin Sod/ Tazobactam Sod (Zosyn Per Pharmacy) 1 each PRN DAILY PRN MC SEE COMMENTS; Start 10/30/20 at 06:00; Stop 11/06/20 at 11:03; Status DC Enoxaparin Sodium (Lovenox 120mg Syringe) 110 mg 1X ONCE SQ Last administered on 10/30/20at 06:27; Start 10/30/20 at 06:15; Stop 10/30/20 at 06:16; Status DC Midazolam HCl 100 mg/Sodium Chloride 100 ml @ 0 mls/hr ONCE ONCE IV Last administered on 10/30/20at 07:10; Start 10/30/20 at 06:45; Stop 10/30/20 at 06:46; Status DC Fentanyl Citrate (Fentanyl 2ml Vial) 100 mcg 1X ONCE IV Last administered on 10/30/20at 07:38; Start 10/30/20 at 07:30; Stop 10/30/20 at 07:31; Status DC Piperacillin Sod/ Tazobactam Sod 4.5 gm/Sodium Chloride 100 ml @ 200 mls/hr Q6HRS IV Last administered on 11/04/20at 05:10; Start 10/30/20 at 12:00; Stop 11/04/20 at 09:59; Status DC Propofol 100 ml @ 3.408 mls/ hr CONT PRN IV PER PROTOCOL Last administered on 10/31/20at 12:07; Start 10/30/20 at 09:00; Stop 11/13/20 at 08:16; Status DC Furosemide (Lasix) 40 mg 1X ONCE IVP Last administered on 10/30/20at 10:06; Start 10/30/20 at 09:45; Stop 10/30/20 at 09:46; Status DC Etomidate (Amidate) 20 mg STK-MED ONCE IV ; Start 10/30/20 at 10:43; Stop 10/30/20 at 10:43; Status DC Succinylcholine Chloride (Anectine) 200 mg STK-MED ONCE .ROUTE ; Start 10/30/20 at 10:43; Stop 10/30/20 at 10:44; Status DC Vancomycin HCl (Vanco Per Pharmacy) 1 each PRN DAILY PRN MC SEE COMMENTS Last administered on 10/31/20at 09:51; Start 10/30/20 at 11:00; Stop 10/31/20 at 11:11; Status DC Vancomycin HCl 1.75 gm/Sodium Chloride 500 ml @ 250 mls/hr ONCE ONCE IV Last administered on 10/30/20at 12:36; Start 10/30/20 at 11:30; Stop 10/30/20 at 13:29; Status DC Aspirin (Aspirin Chewable) 324 mg 1X ONCE PO ; Start 10/30/20 at 15:15; Stop 10/30/20 at 15:22; Status DC Aspirin (Aspirin Chewable) 81 mg DAILYWBKFT PO Last administered on 11/17/20 08:00; Start 10/31/20 at 08:00 Heparin Sodium (Porcine) (Heparin Sodium) 5,000 unit Q8HRS SQ Last administered on 11/17/20 05:02; Start 10/30/20 at 22:00 Carvedilol (Coreg) 3.125 mg BIDWMEALS PO Last administered on 10/31/20at 09:27; Start 10/30/20 at 17:00; Stop 10/31/20 at 15:45; Status DC Vancomycin HCl 1.75 gm/Sodium Chloride 500 ml @ 250 mls/hr Q24H IV ; Start 10/31/20 at 13:00; Stop 10/31/20 at 11:11; Status DC Fentanyl Citrate (Fentanyl 2ml Vial) 50 mcg PRN Q2HR PRN IVP PAIN Last administered on 10/31/20at 20:08; Start 10/31/20 at 07:45 Vancomycin HCl (Vancomycin Trough Level) 1 each 1X ONCE MC ; Start 11/01/20 at 12:30; Stop 10/31/20 at 13:36; Status DC Potassium Bicarbonate (Potassium Effervescent Tablet) 80 meq 1X ONCE PO Last administered on 10/31/20at 13:20; Start 10/31/20 at 09:45; Stop 10/31/20 at 09:46; Status DC Acetaminophen (Tylenol) 650 mg Q6HRS PO Last administered on 11/16/20 18:00; Start 10/31/20 at 12:00 Atorvastatin Calcium (Lipitor) 10 mg HS PO Last administered on 11/16/20 20:25; Start 10/31/20 at 21:00 Bupropion HCl (Wellbutrin Xl) 150 mg DAILY PO Last administered on 11/17/20 09:00; Start 10/31/20 at 12:00 Calcium Carbonate/ Glycine (Oscal) 500 mg Q4HRS PO Last administered on 11/17/20 08:00; Start 10/31/20 at 12:00 Clonazepam (KlonoPIN) 0.5 mg BID PO Last administered on 11/13/20 09:03; Start 10/31/20 at 12:00; Stop 11/13/20 at 13:12; Status DC Clonidine HCl (Catapres) 0.2 mg TID PO Last administered on 11/17/20 09:00; Start 10/31/20 at 12:00 Diphenoxylate HCl/ Atropine (Lomotil) 1 tab TID PO Last administered on 11/17/20 09:00; Start 10/31/20 at 14:00 Doxycycline Hyclate (Vibra-Tab) 100 mg BID PO Last administered on 11/01/20at 08:43; Start 10/31/20 at 12:00; Stop 11/02/20 at 16:50; Status DC Famotidine (Pepcid) 20 mg HS PO Last administered on 11/16/20 20:25; Start 10/31/20 at 21:00 Gabapentin (Neurontin) 100 mg TID PO Last administered on 11/17/20 09:00; Start 10/31/20 at 14:00 Ibuprofen (Motrin) 400 mg PRN Q6HRS PRN PO INFLAMMATION; Start 10/31/20 at 11:15; Stop 11/14/20 at 20:11; Status DC Insulin Human Regular (HumuLIN R VIAL) 100 unit BIDWMEALS SQ ; Start 10/31/20 at 17:00; Status UNV Albuterol/ Ipratropium (Duoneb) 3 ml Q4HRS NEB ; Start 10/31/20 at 12:00; Stop 11/02/20 at 07:02; Status DC Lactobacillus Rhamnosus (Culturelle) 1 cap BID PO Last administered on 11/17/20 09:00; Start 10/31/20 at 12:00 Levothyroxine Sodium (Synthroid) 112 mcg DAILY06 PO Last administered on 11/17/20 05:01; Start 11/01/20 at 09:00 Loperamide HCl (Imodium) 2 mg PRN DAILY PRN PO DIARRHEA Last administered on 11/07/20at 09:53; Start 10/31/20 at 11:15 Lorazepam (Ativan) 0.5 mg PRN Q8HRS PRN PO ANXIETY Last administered on 11/10/20at 14:03; Start 10/31/20 at 11:15 Metformin HCl (Glucophage) 250 mg BIDWMEALS PO Last administered on 11/07/20at 17:25; Start 10/31/20 at 17:00; Stop 11/08/20 at 08:58; Status DC Nystatin (Nystop) 1 scott PRN BID PRN TP RASH Last administered on 11/14/20at 08:19; Start 10/31/20 at 11:15 Polyethylene Glycol (miraLAX PACKET) 17 gm DAILY PO Last administered on 11/08/20at 09:13; Start 10/31/20 at 12:00; Stop 11/09/20 at 10:19; Status DC Risperidone (RisperDAL) 1 mg QHS PO Last administered on 11/16/20 20:25; Start 10/31/20 at 21:00 Ropinirole HCl (Requip) 2 mg DAILY PO Last administered on 11/17/20 09:00; Start 11/01/20 at 09:00 Simethicone (Gas-X) 160 mg Q2HR PRN PO GAS / BLOATING; Start 10/31/20 at 11:15; Stop 10/31/20 at 11:52; Status DC Tramadol HCl (Ultram) 50 mg PRN Q6HRS PRN PO MILD TO MODERATE PAIN; Start at 11:15 Vitamin B Complex (Dustin B) 1 tab DAILY PO Last administered on 11/17/20 09:00; Start 10/31/20 at 12:00 Carvedilol (Coreg) 50 mg BIDWMEALS PO ; Start 10/31/20 at 12:00; Stop 10/31/20 at 13:34; Status DC Dicyclomine HCl (Bentyl) 20 mg TID PO Last administered on 11/17/20 09:00; Start 10/31/20 at 14:00 Non-Formulary Medication (Fluticasone/ Salmeterol (Advair 500-50 Diskus)) 1 puff BID IH ; Start 10/31/20 at 21:00; Status UNV Folic Acid (Folic Acid) 0.5 mg DAILY PO Last administered on 11/17/20 09:00; Start 10/31/20 at 12:00 Cetirizine HCl (ZyrTEC) 10 mg DAILY PO Last administered on 11/17/20 09:00; Start 11/01/20 at 09:00 Magnesium Oxide (Magnesium Oxide) 400 mg DAILY PO Last administered on 11/17/20 09:00; Start 10/31/20 at 12:00 Multivitamins (Thera M Plus) 1 tab DAILY PO Last administered on 11/17/20 09:00; Start 10/31/20 at 12:30 Ondansetron HCl (Zofran Odt) 4 mg PRN Q8HRS PRN PO NAUSEA/VOMITING; Start 10/31/20 at 12:30 Non-Formulary Medication (Peg 400/ Hypromellose/ Glycerin (Artificial Tears Drops)) 1 drop QID OS ; Start 10/31/20 at 13:00; Status UNV Glycerin/ Hypromellose/ Polyethylene (Artificial Tears) 2 drop Q4HRS OU Last administered on 11/17/20 08:00; Start 10/31/20 at 16:00 Non-Formulary Medication (Polyvinyl Alcohol (Tears Again)) 2 drop Q4HRS EACHEYE ; Start 10/31/20 at 12:00; Status UNV Non-Formulary Medication (Risperidone ) 0.5 mg DAILY PO ; Start 11/01/20 at 09:00; Status UNV Guaifenesin (Robitussin) 200 mg PRN Q4HRS PRN PO COUGH Last administered on 11/10/20at 21:24; Start 10/31/20 at 12:45 Insulin Human Lispro (HumaLOG) 0-5 UNITS TIDWMEALS SQ Last administered on 11/15/20 09:15; Start 10/31/20 at 12:00 Dextrose (Dextrose 50%-Water Syringe) 12.5 gm PRN Q15MIN PRN IV SEE COMMENTS Last administered on 11/10/20at 14:01; Start 10/31/20 at 11:45 Simethicone (Gas-X) 160 mg PRN Q2HR PRN PO GAS / BLOATING Last administered on 11/06/20at 17:23; Start 10/31/20 at 12:00 Albuterol Sulfate (Ventolin Neb Soln) 2.5 mg Q6HRS NEB ; Start 10/31/20 at 13:00; Stop 11/02/20 at 07:02; Status DC Budesonide (Pulmicort) 0.5 mg RTBID NEB ; Start 10/31/20 at 20:00; Stop 11/01/20 at 13:52; Status DC Carvedilol (Coreg) 12.5 mg BIDWMEALS PO Last administered on 11/01/20at 08:43; Start 10/31/20 at 17:00; Stop 11/03/20 at 11:10; Status DC Dextrose (Dextrose 50%-Water Syringe) 12.5 gm PRN Q15MIN PRN IV SEE COMMENTS; Start 10/31/20 at 18:00; Status UNV Furosemide (Lasix) 40 mg 1X ONCE IVP Last administered on 11/01/20at 12:04; Start 11/01/20 at 11:45; Stop 11/01/20 at 11:46; Status DC Furosemide (Lasix) 40 mg DAILY PO ; Start 11/02/20 at 09:00; Stop 11/03/20 at 11:10; Status DC Potassium Chloride (Klor-Con) 10 meq DAILYWBKFT PO Last administered on 11/07/20at 09:08; Start 11/02/20 at 08:00; Stop 11/08/20 at 14:35; Status DC Amino Acids/ Glycerin/ Electrolytes 1,000 ml @ 80 mls/hr [id number] IV ; Start 11/01/20 at 13:00; Stop 11/01/20 at 13:00; Status DC Amino Acids/ Glycerin/ Electrolytes 1,000 ml @ 100 mls/hr Q10H IV Last administered on 11/09/20at 08:28; Start 11/01/20 at 13:30; Stop 11/09/20 at 14:40; Status DC Acetaminophen (Tylenol Supp) 650 mg PRN Q6HRS PRN MD MILD PAIN / TEMP > 100.3'F Last administered on 11/02/20at 07:27; Start 11/02/20 at 00:00 Albuterol Sulfate (Ventolin Neb Soln) 2.5 mg PRN Q6HRS PRN NEB WHEEZING; Start 11/03/20 at 06:00 Albuterol/ Ipratropium (Duoneb) 3 ml PRN Q4HRS PRN NEB WHEEZING; Start at 07:00; Stop 11/02/20 at 07:03; Status DC Lorazepam (Ativan Inj) 2 mg PRN Q4HRS PRN IVP ANXIETY / AGITATION Last adm inistered on 11/09/20at 19:52; Start 11/02/20 at 08:30; Stop 11/10/20 at 09:16; Status DC Haloperidol Lactate (Haldol Inj) 5 mg PRN Q6HRS PRN IVP AGITATION-2ND CHOICE Last administered on 11/10/20at 23:40; Start 11/02/20 at 11:00; Stop 11/13/20 at 13:15; Status DC Labetalol HCl (Normodyne Iv Push) 20 mg PRN Q2HR PRN IVP HYPERTENSION Last administered on 11/12/20at 05:24; Start 11/02/20 at 11:30 Metoprolol Tartrate (Lopressor Vial) 5 mg Q6HRS IVP Last administered on 11/04/20at 05:11; Start 11/03/20 at 12:00; Stop 11/04/20 at 09:21; Status DC Furosemide (Lasix) 40 mg DAILY IVP Last administered on 11/05/20at 10:27; Sta rt 11/03/20 at 12:00; Stop 11/06/20 at 11:34; Status DC Dexmedetomidine HCl 400 mcg/ Sodium Chloride 100 ml @ 0 mls/hr CONT PRN IV PER PROTOCOL Last administered on 11/04/20at 05:42; Start 11/03/20 at 12:00; Stop 11/13/20 at 08:16; Status DC Sodium Chloride 500 ml @ 500 mls/hr 1X PRN PRN IV SEE COMMENTS Last administered on 11/03/20at 13:34; Start 11/03/20 at 12:00; Stop 11/13/20 at 08:16; Status DC Atropine Sulfate (ATROPINE 0.5mg SYRINGE) 0.5 mg PRN Q5MIN PRN IV SEE COMMENTS; Start 11/03/20 at 12:00; Stop 11/13/20 at 08:16; Status DC Norepinephrine Bitartrate 8 mg/ Dextrose 258 ml @ 17.202 mls/ hr CONT PRN IV PER PROTOCOL Last administered on 11/04/20at 05:54; Start 11/03/20 at 13:45; Stop 11/11/20 at 10:17; Status DC Albuterol Sulfate (Ventolin Hfa) 1 puff PRN Q6HRS PRN INH SHORTNESS OF AIR Last administered on 11/04/20at 13:50; Start 11/04/20 at 13:45 Metoprolol Tartrate (Lopressor Vial) 5 mg 1X ONCE IVP Last administered on 11/04/20at 14:36; Start 11/04/20 at 14:30; Stop 11/04/20 at 14:31; Status DC Dexamethasone Sodium Phosphate (Decadron) 6 mg DAILY IVP Last administered on 11/11/20at 09:15; Start 11/05/20 at 09:00; Stop 11/11/20 at 10:17; Status DC Metoprolol Tartrate (Lopressor Vial) 5 mg Q6HRS IVP Last administered on 11/11/20at 11:00; Start 11/05/20 at 08:15; Stop 11/11/20 at 16:02; Status DC Piperacillin Sod/ Tazobactam Sod 3.375 gm/Sodium Chloride 50 ml @ 100 mls/hr Q6HRS IV Last administered on 11/06/20at 00:04; Start 11/05/20 at 12:00; Stop 11/06/20 at 09:15; Status DC Doxycycline Hyclate (Vibra-Tab) 100 mg BID PO ; Start 11/05/20 at 09:00; Stop 11/05/20 at 09:43; Status DC Sodium Chloride 1,000 ml @ 125 mls/hr CONT PRN IV ; Start 11/06/20 at 12:00 Sodium Chloride 1,000 ml @ 125 mls/hr Q8H IV Last administered on 11/06/20at 23:41; Start 11/06/20 at 16:30; Stop 11/07/20 at 10:52; Status DC Amoxicillin/ Clavulanate Potassium (Augmentin 500/ 125mg) 1 tab BID PO Last administered on 11/08/20at 09:14; Start 11/07/20 at 10:00; Stop 11/08/20 at 10:45; Status DC Polyethylene Glycol (miraLAX PACKET) 17 gm PRN DAILY PRN PO CONSTIPATION; Start 11/09/20 at 10:30 Sodium Bicarbonate 50 meq/Sodium Chloride 1,050 ml @ 100 mls/hr [id number] IV Last administered on 11/13/20at 06:20; Start 11/09/20 at 16:00; Stop 11/13/20 at 11:10; Status DC Dextrose (Dextrose 50%-Water Syringe) 25 gm 1X ONCE IV Last administered on 11/09/20at 15:06; Start 11/09/20 at 15:00; Stop 11/09/20 at 15:01; Status DC Insulin Human Lispro (HumaLOG) 10 units 1X ONCE IV ; Start 11/09/20 at 15:00; Stop 11/09/20 at 14:56; Status DC Insulin Human Regular (HumuLIN R VIAL) 10 unit 1X ONCE IV Last administered on 11/09/20at 15:13; Start 11/09/20 at 15:00; Stop 11/09/20 at 15:01; Status DC Ziprasidone (Geodon Im) 10 mg PRN QHS PRN IM ANXIETY / AGITATION; Start 11/09/20 at 22:45 Sodium Bicarbonate (Sodium Bicarb Adult 8.4% Syr) 50 meq 1X ONCE IV Last admin istered on 11/10/20at 07:41; Start 11/10/20 at 06:30; Stop 11/10/20 at 06:31; Status DC Dextrose (Dextrose 50%-Water Syringe) 25 gm 1X ONCE IV Last administered on 11/10/20at 07:42; Start 11/10/20 at 06:30; Stop 11/10/20 at 06:31; Status DC Insulin Human Regular (HumuLIN R VIAL) 10 unit 1X ONCE IV Last administered on 11/10/20at 07:43; Start 11/10/20 at 06:30; Stop 11/10/20 at 06:31; Status DC Sodium Polystyrene Sulfonate (Kayexalate) 30 gm 1X ONCE PO Last administered on 11/10/20at 14:02; Start 11/10/20 at 06:30; Stop 11/10/20 at 06:31; Status DC Lorazepam (Ativan Inj) 0.5 mg PRN Q4HRS PRN IVP ANXIETY / AGITATION Last administered on 11/12/20at 03:55; Start 11/10/20 at 09:15; Stop 11/13/20 at 13:12; Status DC Sodium Polystyrene Sulfonate (Kayexalate) 15 gm 1X ONCE PO Last administered on 11/10/20at 18:11; Start 11/10/20 at 19:00; Stop 11/10/20 at 19:01; Status DC Metoprolol Tartrate (Lopressor Vial) 5 mg PRN Q6HRS PRN IVP TACHYCARDIA; Start 11/11/20 at 16:15 Metoprolol Succinate (Toprol Xl) 100 mg DAILY PO Last administered on 11/17/20at 09:00; Start 11/12/20 at 09:00 Dextrose/Sodium Chloride 1,000 ml @ 75 mls/hr [id number] IV Last administered on 11/16/20at 20:49; Start 11/13/20 at 11:15 Haloperidol Lactate (Haldol Inj) 5 mg PRN Q6HRS PRN IVP AGITATION; Start 11/13/20 at 13:15 Active Scripts Active Lomotil Tablet (Diphenoxylate Hcl/Atropine) 1 Each Tablet 1 Tab PO TID 3 Days Dicyclomine Hcl 20 Mg Tablet 1 Tab PO TID 10 Days Zithromax (Azithromycin) 250 Mg Tablet 250 Mg PO DIRECTED Take 2 PO x 1 days Then take 1 PO q 24 hour for the next 4 days Doxycycline Hyclate 100 Mg Tablet 1 Tab PO BID 3 Days Culturelle (Lactobacillus Rhamnosus Gg) 1 Each Cap.sprink 1 Cap PO BID 14 Days Reported Wellbutrin Xl (Bupropion Hcl) 150 Mg Tab.er.24h 150 Mg PO DAILY Artificial Tears Drops (Peg 400/Hypromellose/Glycerin) 15 Ml Drops 1 Drop OS QID 30 Days Folic Acid 0.4 Mg Tablet 0.4 Mg PO DAILY Duoneb 0.5-3(2.5) Mg/3 Ml (Albuterol/Ipratropium) 3 Ml Ampul.neb 3 Ml NEB Q4HRS Clonidine Hcl 0.2 Mg Tablet 0.2 Mg PO TID Ativan (Lorazepam) 0.5 Mg Tablet 0.5 Mg PO Q8HRS PRN Ibuprofen 400 Mg Tablet 400 Mg PO PRN Q6HRS PRN Guaifenesin Ac Cough Syrup (Guaifenesin/Codeine Phosphate) 473 Ml Liquid 10 Ml PO PRN Q4-6HRS PRN MDD 60 Milliliter(s) 4 Days Multiple Vitamins (Multivitamin) 1 Each Tablet 1 Tab PO DAILY 30 Days Miralax (Polyethylene Glycol 3350) 17 Gm Powd.pack 1 Packet PO DAILY 2 Days dissolve in water Famotidine 20 Mg Tablet 20 Mg PO HS Zofran (Ondansetron Hcl) 4 Mg Tablet 4 Mg PO Q8HRS PRN Tramadol Hcl 50 Mg Tablet 50 Mg PO Q6HRS PRN Tears Again (Polyvinyl Alcohol) 15 Ml Drops 2 Drop EACHEYE Q4HRS 30 Days Polyvinyl Alcohol 15 Ml Drops 2 Drop EACHEYE Q4HRS 30 Days Ropinirole Hcl 1 Mg Tablet 1 Mg PO BID B-Complex Plus Vitamin C (B Complex With Vitamin C) 1 Each Tablet 1 Each PO DAILY Magnesium Oxide 400 Mg Tablet 400 Mg PO DAILY Loratadine 10 Mg Tablet 10 Mg PO DAILY Humalog (Insulin Lispro) 100 Unit/1 Ml Vial 100 Unit SQ BIDWMEALS 70 - 150 0 units 151 - 200 0 units 201 - 250 2 units 251 - 300 3 units 301 - 349 4 units if FSBS is under 70 or 350 and over call MD [guaifenesin Syrup] 10 Ml PO Q4HRS PRN Coreg (Carvedilol) 25 Mg Tablet 50 Mg PO BIDWMEALS Peridex (Chlorhexidine Gluconate) 15 Ml Mouthwash 15 Ml PO BID 30 Days Swish in mouth for 30 seconds then spit out Calcium Carbonate 500 Mg Tablet 500 Mg PO Q4HRS Atorvastatin Calcium 10 Mg Tablet 10 Mg PO HS Acetaminophen 325 Mg Tablet 650 Mg PO Q6HRS Metformin Hcl 500 Mg Tablet 250 Mg PO BIDWMEALS Imodium A-D (Loperamide HCl) 2 Mg Capsule 2 Mg PO DAILY PRN Risperidone 0.5 Mg Tablet 0.5 Mg PO DAILY Risperidone 1 Mg Tablet 1 Tab PO QHS Levothyroxine Sodium 112 Mcg Tablet 1 Tab PO DAILY Advair 500-50 Diskus (Fluticasone/Salmeterol) 1 Each Disk.w.dev 1 Puff IH BID Nystatin 15 Gm Powder 1 Scott TP PRN BID PRN Clonazepam (Clonazepam) 0.5 Mg Tablet 1 Tab PO BID Gas-X (Simethicone) 80 Mg Tab.chew 160 Mg PO Q2HR PRN Gabapentin (Gabapentin) 100 Mg Capsule 100 Mg PO TID Vitals/I & O Vital Sign - Last 24 Hours 11/16/20 11/16/20 11/16/20 11/16/20 14:00 15:00 19:34 19:55 Temp 98.0 97.8 98.0 97.8 Pulse 92 92 85 Resp 18 16 B/P (MAP) 164/89 164/89 (114) 143/80 (101) Pulse Ox 96 96 O2 Delivery Nasal Cannula Nasal Cannula Nasal Cannula O2 Flow Rate 2.0 3.0 2.5 11/16/20 11/16/20 11/16/20 11/17/20 20:25 20:38 23:15 03:59 Temp 98.5 98.1 98.5 98.1 Pulse 85 75 82 Resp 16 16 B/P (MAP) 143/80 130/66 (87) 144/87 (106) Pulse Ox 95 96 100 O2 Delivery Nasal Cannula Nasal Cannula Nasal Cannula O2 Flow Rate 2.0 2.0 2.0 11/17/20 11/17/20 11/17/20 06:10 09:00 09:00 Temp 97.5 97.5 Pulse 86 86 86 Resp 18 B/P (MAP) 151/84 (106) 151/84 151/84 Pulse Ox 100 O2 Delivery Nasal Cannula O2 Flow Rate 2.0 Intake and Output 11/16/20 11/16/20 11/17/20 15:00 23:00 07:00 Intake Total 950 ml Output Total 550 ml 1450 ml Balance -550 ml -500 ml Justicifation of Admission Dx: Justifications for Admission: Justification of Admission Dx: Yes WAYNE TROY MD Nov 17, 2020 12:17
--- NOTE | 2020-11-17 13:47 | PDOC ---
PULMONARY PROGRESS NOTES DATE: 11/17/20 TIME: 13:44 Subjective extubated on 10/31 on 3 liters N/C alert and awake today Nursing reports that the patient is having mild hallucinations Vitals Vital Signs Date Time Temp Pulse Resp B/P (MAP) Pulse Ox O2 Delivery O2 Flow Rate FiO2 11/17/20 09:00 86 151/84 11/17/20 06:10 97.5 18 100 Nasal Cannula 2.0 97.5 Comments visual exam done due to COVID-19 pandemic RRR Awake and alert N/C No edema ROS: No Nausea, No Chest Pain, No Abdominal Pain, No Increase Cough General: Alert Lungs: Clear Cardiovascular: S1, S2 Labs Laboratory Tests Test 11/15/20 16:54 11/15/20 20:57 11/16/20 05:45 11/16/20 08:26 Glucose (Fingerstick) 76 mg/dL (70-99) 89 mg/dL (70-99) 81 mg/dL (70-99) Sodium Level 140 mmol/L (136-145) Potassium Level 4.8 mmol/L (3.5-5.1) Chloride Level 104 mmol/L (98-107) Carbon Dioxide Level 35 mmol/L (21-32) Anion Gap 1 (6-14) Blood Urea Nitrogen 25 mg/dL (7-20) Creatinine 3.1 mg/dL (0.6-1.0) Estimated GFR (Cockcroft-Gault) 18.6 Glucose Level 95 mg/dL (70-99) Calcium Level 9.2 mg/dL (8.5-10.1) Phosphorus Level 4.4 mg/dL (2.6-4.7) Albumin 1.6 g/dL (3.4-5.0) Test 11/16/20 12:17 11/16/20 18:08 11/16/20 20:41 11/17/20 05:00 Glucose (Fingerstick) 107 mg/dL (70-99) 110 mg/dL (70-99) 144 mg/dL (70-99) Sodium Level 141 mmol/L (136-145) Potassium Level 4.7 mmol/L (3.5-5.1) Chloride Level 103 mmol/L (98-107) Carbon Dioxide Level 35 mmol/L (21-32) Anion Gap 3 (6-14) Blood Urea Nitrogen 22 mg/dL (7-20) Creatinine 3.4 mg/dL (0.6-1.0) Estimated GFR (Cockcroft-Gault) 16.7 Glucose Level 108 mg/dL (70-99) Calcium Level 9.2 mg/dL (8.5-10.1) Phosphorus Level 4.7 mg/dL (2.6-4.7) Albumin 1.5 g/dL (3.4-5.0) Test 11/17/20 09:05 11/17/20 11:57 Glucose (Fingerstick) 108 mg/dL (70-99) 139 mg/dL (70-99) Laboratory Tests Test 11/16/20 18:08 11/16/20 20:41 11/17/20 05:00 11/17/20 09:05 Glucose (Fingerstick) 110 mg/dL (70-99) 144 mg/dL (70-99) 108 mg/dL (70-99) Sodium Level 141 mmol/L (136-145) Potassium Level 4.7 mmol/L (3.5-5.1) Chloride Level 103 mmol/L (98-107) Carbon Dioxide Level 35 mmol/L (21-32) Anion Gap 3 (6-14) Blood Urea Nitrogen 22 mg/dL (7-20) Creatinine 3.4 mg/dL (0.6-1.0) Estimated GFR (Cockcroft-Gault) 16.7 Glucose Level 108 mg/dL (70-99) Calcium Level 9.2 mg/dL (8.5-10.1) Phosphorus Level 4.7 mg/dL (2.6-4.7) Albumin 1.5 g/dL (3.4-5.0) Test 11/17/20 11:57 Glucose (Fingerstick) 139 mg/dL (70-99) Medications Active Scripts Medications Dose Route/Sig Max Daily Dose Days Date Category Dose Instructions Lomotil Tablet (Diphenoxylate Hcl/Atropine) 1 Each Tablet 1 Tab PO TID 3 10/28/20 Rx Dicyclomine Hcl 20 Mg Tablet 1 Tab PO TID 10 10/28/20 Rx Zithromax (Azithromycin) 250 Mg Tablet 250 Mg PO DIRECTED 10/28/20 Rx Take 2 PO x 1 days Then take 1 PO q 24 hour for the next 4 days Doxycycline Hyclate 100 Mg Tablet 1 Tab PO BID 3 12/04/19 Rx Culturelle (Lactobacillus Rhamnosus Gg) 1 Each Cap.sprink 1 Cap PO BID 14 12/04/19 Rx Zofran (Ondansetron Hcl) 4 Mg Tablet 4 Mg PO Q8HRS PRN 12/02/19 Reported Tramadol Hcl 50 Mg Tablet 50 Mg PO Q6HRS PRN 12/02/19 Reported Tears Again (Polyvinyl Alcohol) 15 Ml Drops 2 Drop EACHEYE Q4HRS 30 12/02/19 Reported Polyvinyl Alcohol 15 Ml Drops 2 Drop EACHEYE Q4HRS 30 12/02/19 Reported Ropinirole Hcl 1 Mg Tablet 1 Mg PO BID 12/02/19 Reported Pantoprazole Sodium (Pantoprazole Sodium) 40 Mg Tablet.dr 40 Mg PO DAILYAC 12/02/19 Reported B-Complex Plus Vitamin C (B Complex With Vitamin C) 1 Each Tablet 1 Each PO DAILY 12/02/19 Reported Magnesium Oxide 400 Mg Tablet 400 Mg PO DAILY 12/02/19 Reported Loratadine 10 Mg Tablet 10 Mg PO DAILY 12/02/19 Reported Ketotifen Fumarate 5 Ml Drops 1 Drop EACHEYE BID 12/02/19 Reported Humalog (Insulin Lispro) 100 Unit/1 Ml Vial 100 Unit SQ BIDWMEALS 12/02/19 Reported 70 - 150 0 units 151 - 200 0 units 201 - 250 2 units 251 - 300 3 units 301 - 349 4 units if FSBS is under 70 or 350 and over call MD [guaifenesin Syrup] 10 Ml PO Q4HRS PRN 12/02/19 Reported Mucinex (Guaifenesin) 600 Mg Tablet.er 600 Mg PO BID 12/02/19 Reported Coreg (Carvedilol) 25 Mg Tablet 50 Mg PO BIDWMEALS 12/02/19 Reported Peridex (Chlorhexidine Gluconate) 15 Ml Mouthwash 15 Ml PO BID 30 12/02/19 Reported Swish in mouth for 30 seconds then spit out Calcium Carbonate 500 Mg Tablet 500 Mg PO Q4HRS 12/02/19 Reported Atorvastatin Calcium 10 Mg Tablet 10 Mg PO HS 12/02/19 Reported Acetaminophen 325 Mg Tablet 650 Mg PO Q6HRS 12/02/19 Reported Metformin Hcl 500 Mg Tablet 250 Mg PO BIDWMEALS 12/03/18 Reported Imodium A-D (Loperamide HCl) 2 Mg Capsule 2 Mg PO DAILY PRN 12/03/18 Reported Risperidone 0.5 Mg Tablet 0.5 Mg PO DAILY 03/21/18 Reported Risperidone 1 Mg Tablet 1 Tab PO QHS 03/21/18 Reported Levothyroxine Sodium 112 Mcg Tablet 1 Tab PO DAILY 03/21/18 Reported Advair 500-50 Diskus (Fluticasone/Salmeterol) 1 Each Disk.w.dev 1 Puff IH BID 03/21/18 Reported Nystatin 15 Gm Powder 1 Scott TP PRN BID PRN 03/21/18 Reported Clonazepam (Clonazepam) 0.5 Mg Tablet 1 Tab PO BID 09/30/16 Reported Montelukast Sodium Tablet (Montelukast Sodium) 10 Mg Tablet 1 Tab PO HS 02/18/16 Reported Gas-X (Simethicone) 80 Mg Tab.chew 160 Mg PO Q2HR PRN 02/18/16 Reported Gabapentin (Gabapentin) 100 Mg Capsule 100 Mg PO TID 02/18/[address] chest 1. Cardiomegaly. 2. Increased consolidative opacities in the left lung and scattered groundglass opacities in the right lung are suspicious for pneumonia. Some of the opacities in the left upper lobe are chronic scarring or atelectasis present on prior exam. 3. New trace bilateral pleural effusions. No large or drainable pleural effusion. Electronically signed by: Renetta Edouard MD (11/04/2020 4:07 PM) [id number] U/S IMPRESSION: 1. Thickened endometrium, may relate to endometrial hyperplasia although endometrial carcinoma is possible. Recommend further clinical evaluation and biopsy if indicated. 2. Several uterine masses, likely fibroids. Impression . IMPRESSION: 1. Acute on chronic hypoxemic hypercapnic respiratory failure, extubated .10/31, Has been restless on/off. received ativan night of 11/09/ increase hypoxia/ on BIPAP/ 60%, now more awake, off BIPAP 2. Abnormal x-ray compatible with acute on chronic congestive heart failure,/ COVID-19. 3. Abnormal ct chest c/w COVID-19 PNEUMONIA/ ? BACTERIAL PNA 4. COVID-19 5. Acute metabolic toxic encephalopathy. 6. History of status post pacemaker defibrillator implantation. 7. Restless legs syndrome. 8. Schizoaffective disorder. 9. Acute on chronic systolic heart failure. 9. Non-ST segment elevation myocardial infarction. 10. Cardiomyopathy, ejection fraction on 11/2019 revealed EF of 45%. 11. Atrial fibrillation with V paced, currently underlying sinus rhythm. 12. Hyperlipidemia. 13. Hypothyroidism. 14. Fever, rule out bacteremia. 15. Sepsis.resolved 16. JACKIE Plan . PLAN: Extubated on 121/17, N/C during the day avoid sedative medications PRN haldol for agitation Off ABX Follow OB recs 2/2/ vaginal bleeding and abnormal U/S,Will need endometrial sample via EMB or D&C. Can be arranged as an outpt Follow cardiology recs--- Plan outpatient ischemic evaluation, ECHO when recovered from COVID-19 Follow nephrology recs-- worsening renal function-- monitor PT/OT/ST--on no dysphasia 1 diet per speech Hypertension Per PCP DVT/GI PPX social work for D/C planning D/W MIGUEL VALENCIA MD Nov 17, 2020 13:47
[2020-11-17 15:00] VITALS: BP 156/89
--- NOTE | 2020-11-17 15:04 | PDOC ---
DATE OF SERVICE: DOS: DATE: 11/17/20 TIME: 15:00 SUBJECTIVE ROS Follow-up for acute kidney injury Patient remains confused OBJECTIVE Vital Signs Vital Signs Date Time Temp Pulse Resp B/P (MAP) Pulse Ox O2 Delivery O2 Flow Rate FiO2 11/17/20 09:00 86 151/84 11/17/20 06:10 97.5 18 100 Nasal Cannula 2.0 97.5 I & 0 Intake and Output 11/17/20 07:00 Intake Total 950 ml Output Total 2000 ml Balance -1050 ml Intake Oral 50 ml IV Total 900 ml Output Urine Total 2000 ml PHYSICAL EXAM Physical Exam Unable to examine patient at this time due to COVID-19 isolation precautions Physical exam as documented by other providers were reviewed and corroborated with patient's nurse DIAGNOSIS/ASSESSMENT Assessment & Plan Acute kidney injury with possible ATN. Creatinine continues to worsen despite ongoing IV fluids and good urine output. Cannot rule out element of interstiti al nephritis. Covid 19 associated nephropathy cannot be ruled out. UA will be rechecked. Alkalosis: Currently not on any obviously incrementing agents. Severe hypoalbuminemia: Suspect due to ongoing COVID-19 infection and metabolic state. Will order urine protein creatinine ratio for quantitation ANEMIA; start Aranap as ordered, Transfuse as needed HTN: Not renovascular in nature per se. Current BP meds as reviewed. See orders for changes. COVID-19 positive COMMENT/RELEVANT DATA Meds Current Medications Medications (Trade) Dose Ordered Sig/Eber Start Time Stop Time Status Last Admin Dose Admin Acetaminophen (Tylenol Supp) 650 mg PRN Q6HRS PRN 11/02/20 00:00 11/02/20 07:27 650 MG Acetaminophen (Tylenol) 650 mg Q6HRS 10/31/20 12:00 11/16/20 18:00 650 MG Albuterol Sulfate (Ventolin Hfa) 1 puff PRN Q6HRS PRN 11/04/20 13:45 11/04/20 13:50 1 PUFF Albuterol Sulfate (Ventolin Neb Soln) 2.5 mg PRN Q6HRS PRN 11/03/20 06:00 Albuterol/ Ipratropium (Duoneb) 3 ml PRN Q4HRS PRN 11/02/20 07:00 11/02/20 07:03 DC Amino Acids/ Glycerin/ Electrolytes 1,000 ml @ 100 mls/hr Q10H 11/01/20 13:30 11/09/20 14:40 DC 11/09/20 08:28 100 MLS/HR Amoxicillin/ Clavulanate Potassium (Augmentin 500/ 125mg) 1 tab BID 11/07/20 10:00 11/08/20 10:45 DC 11/08/20 09:14 1 TAB Aspirin (Aspirin Chewable) 81 mg [id number] 10/31/20 08:00 11/17/20 08:00 81 MG Atorvastatin Calcium (Lipitor) 10 mg HS 10/31/20 21:00 11/16/20 20:25 10 MG Atropine Sulfate (ATROPINE 0.5mg SYRINGE) 0.5 mg PRN Q5MIN PRN 11/03/20 12:00 11/13/20 08:16 DC Budesonide (Pulmicort) 0.5 mg RTBID 10/31/20 20:00 11/01/20 13:52 DC Bupropion HCl (Wellbutrin Xl) 150 mg DAILY 10/31/20 12:00 11/17/20 09:00 150 MG Calcium Carbonate/ Glycine (Oscal) 500 mg Q4HRS 10/31/20 12:00 11/17/20 08:00 500 MG Carvedilol (Coreg) 12.5 mg BIDWMEALS 10/31/20 17:00 11/03/20 11:10 DC 11/01/20 08:43 12.5 MG Cetirizine HCl (ZyrTEC) 10 mg DAILY 11/01/20 09:00 11/17/20 09:00 10 MG Clonazepam (KlonoPIN) 0.5 mg BID 10/31/20 12:00 11/13/20 13:12 DC 11/13/20 09:03 0.5 MG Clonidine HCl (Catapres) 0.2 mg TID 10/31/20 12:00 11/17/20 09:00 0.2 MG Dexamethasone Sodium Phosphate (Decadron) 6 mg DAILY 11/05/20 09:00 11/11/20 10:17 DC 11/11/20 09:15 6 MG Dexmedetomidine HCl 400 mcg/ Sodium Chloride 100 ml @ 0 mls/hr CONT PRN 11/03/20 12:00 11/13/20 08:16 DC 11/04/20 05:42 22.1 MLS/HR Dextrose (Dextrose 50%-Water Syringe) 25 gm 1X ONCE 11/10/20 06:30 11/10/20 06:31 DC 11/10/20 07:42 25 GM Dextrose/Sodium Chloride 1,000 ml @ 75 mls/hr [id number] 11/13/20 11:15 11/16/20 20:49 75 MLS/HR Dicyclomine HCl (Bentyl) 20 mg TID 10/31/20 14:00 11/17/20 09:00 20 MG Diphenoxylate HCl/ Atropine (Lomotil) 1 tab TID 10/31/20 14:00 11/17/20 09:00 1 TAB Doxycycline Hyclate (Vibra-Tab) 100 mg BID 11/05/20 09:00 11/05/20 09:43 DC Enoxaparin Sodium (Lovenox 120mg Syringe) 110 mg 1X ONCE 10/30/20 06:15 10/30/20 06:16 DC 10/30/20 06:27 110 MG Etomidate (Amidate) 20 mg STK-MED ONCE 10/30/20 10:43 10/30/20 10:43 DC Famotidine (Pepcid) 20 mg HS 10/31/20 21:00 11/16/20 20:25 20 MG Fentanyl Citrate (Fentanyl 2ml Vial) 50 mcg PRN Q2HR PRN 10/31/20 07:45 10/31/20 20:08 50 MCG Folic Acid (Folic Acid) 0.5 mg DAILY 10/31/20 12:00 11/17/20 09:00 0.5 MG Furosemide (Lasix) 40 mg DAILY 11/03/20 12:00 11/06/20 11:34 DC 11/05/20 10:27 40 MG Gabapentin (Neurontin) 100 mg TID 10/31/20 14:00 11/17/20 09:00 100 MG Glycerin/ Hypromellose/ Polyethylene (Artificial Tears) 2 drop Q4HRS 10/31/20 16:00 11/17/20 08:00 2 DROP Guaifenesin (Robitussin) 200 mg PRN Q4HRS PRN 10/31/20 12:45 11/10/20 21:24 200 MG Haloperidol Lactate (Haldol Inj) 5 mg PRN Q6HRS PRN 11/13/20 13:15 Heparin Sodium (Porcine) (Heparin Sodium) 5,000 unit Q8HRS 10/30/20 22:00 11/17/20 05:02 5,000 UNIT Ibuprofen (Motrin) 400 mg PRN Q6HRS PRN 10/31/20 11:15 11/14/20 20:11 DC Insulin Human Lispro (HumaLOG) 10 units 1X ONCE 11/09/20 15:00 11/09/20 14:56 DC Insulin Human Regular (HumuLIN R VIAL) 10 unit 1X ONCE 11/10/20 06:30 11/10/20 06:31 DC 11/10/20 07:43 10 UNIT Labetalol HCl (Normodyne Iv Push) 20 mg PRN Q2HR PRN 11/02/20 11:30 11/12/20 05:24 20 MG Lactobacillus Rhamnosus (Culturelle) 1 cap BID 10/31/20 12:00 11/17/20 09:00 1 CAP Levothyroxine Sodium (Synthroid) 112 mcg DAILY06 11/01/20 09:00 11/17/20 05:01 112 MCG Loperamide HCl (Imodium) 2 mg PRN DAILY PRN 10/31/20 11:15 11/07/20 09:53 2 MG Lorazepam (Ativan Inj) 0.5 mg PRN Q4HRS PRN 11/10/20 09:15 11/13/20 13:12 DC 11/12/20 03:55 0.5 MG Lorazepam (Ativan) 0.5 mg PRN Q8HRS PRN 10/31/20 11:15 11/10/20 14:03 0.5 MG Magnesium Oxide (Magnesium Oxide) 400 mg DAILY 10/31/20 12:00 11/17/20 09:00 400 MG Metformin HCl (Glucophage) 250 mg BIDWMEALS 10/31/20 17:00 11/08/20 08:58 DC 11/07/20 17:25 250 MG Metoprolol Succinate (Toprol Xl) 100 mg DAILY 11/12/20 09:00 11/17/20 09:00 100 MG Metoprolol Tartrate (Lopressor Vial) 5 mg PRN Q6HRS PRN 12/28/20 16:15 Midazolam HCl 100 mg/Sodium Chloride 100 ml @ 0 mls/hr ONCE ONCE 10/30/20 06:45 10/30/20 06:46 DC 10/30/20 07:10 1 MLS/HR Multivitamins (Thera M Plus) 1 tab DAILY 10/31/20 12:30 11/17/20 09:00 1 TAB Non-Formulary Medication (Fluticasone/ Salmeterol (Advair 500-50 Diskus)) 1 puff BID 10/31/20 21:00 UNV Non-Formulary Medication (Peg 400/ Hypromellose/ Glycerin (Artificial Tears Drops)) 1 drop QID 10/31/20 13:00 UNV Non-Formulary Medication (Polyvinyl Alcohol (Tears Again)) 2 drop Q4HRS 10/31/20 12:00 UNV Non-Formulary Medication (Risperidone ) 0.5 mg DAILY 11/01/20 09:00 UNV Norepinephrine Bitartrate 8 mg/ Dextrose 258 ml @ 17.202 mls/ hr CONT PRN 11/03/20 13:45 11/11/20 10:17 DC 11/04/20 05:54 8.3 MLS/HR Nystatin (Nystop) 1 luis PRN BID PRN 10/31/20 11:15 11/14/20 08:19 1 LUIS Ondansetron HCl (Zofran Odt) 4 mg PRN Q8HRS PRN 10/31/20 12:30 Ondansetron HCl (Zofran) 4 mg PRN Q8HRS PRN 10/30/20 06:00 10/31/20 05:59 DC Piperacillin Sod/ Tazobactam Sod (Zosyn Per Pharmacy) 1 each PRN DAILY PRN 10/30/20 06:00 11/06/20 11:03 DC Piperacillin Sod/ Tazobactam Sod 3.375 gm/Sodium Chloride 50 ml @ 100 mls/hr Q6HRS 11/05/20 12:00 11/06/20 09:15 DC 11/06/20 00:04 100 MLS/HR Piperacillin Sod/ Tazobactam Sod 4.5 gm/Sodium Chloride 100 ml @ 200 mls/hr Q6HRS 10/30/20 12:00 11/04/20 09:59 DC 11/04/20 05:10 200 MLS/HR Polyethylene Glycol (miraLAX PACKET) 17 gm PRN DAILY PRN 11/09/20 10:30 Potassium Bicarbonate (Potassium Effervescent Tablet) 80 meq 1X ONCE 10/31/20 09:45 10/31/20 09:46 DC 10/31/20 13:20 80 MEQ Potassium Chloride (Klor-Con) 10 meq [id number] 11/02/20 08:00 11/08/20 14:35 DC 11/07/20 09:08 10 MEQ Propofol 100 ml @ 3.408 mls/ hr CONT PRN 10/30/20 09:00 11/13/20 08:16 DC 10/31/20 12:07 3.408 MLS/HR Risperidone (RisperDAL) 1 mg QHS 10/31/20 21:00 11/16/20 20:25 1 MG Ropinirole HCl (Requip) 2 mg DAILY 11/01/20 09:00 11/17/20 09:00 2 MG Simethicone (Gas-X) 160 mg PRN Q2HR PRN 10/31/20 12:00 11/06/20 17:23 160 MG Sodium Bicarbonate 50 meq/Sodium Chloride 1,050 ml @ 100 mls/hr [id number] 11/09/20 16:00 11/13/20 11:10 DC 11/13/20 06:20 100 MLS/HR Sodium Polystyrene Sulfonate (Kayexalate) 15 gm 1X ONCE 11/10/20 19:00 11/10/20 19:01 DC 11/10/20 18:11 15 GM Sodium Bicarbonate (Sodium Bicarb Adult 8.4% Syr) 50 meq 1X ONCE 11/10/20 06:30 11/10/20 06:31 DC 11/10/20 07:41 50 MEQ Sodium Chloride 1,000 ml @ 125 mls/hr Q8H 11/06/20 16:30 11/07/20 10:52 DC 11/06/20 23:41 125 MLS/HR Succinylcholine Chloride (Anectine) 200 mg STK-MED ONCE 10/30/20 10:43 10/30/20 10:44 DC Tramadol HCl (Ultram) 50 mg PRN Q6HRS PRN 10/31/20 11:15 Vancomycin HCl (Vanco Per Pharmacy) 1 each PRN DAILY PRN 10/30/20 11:00 10/31/20 11:11 DC 10/31/20 09:51 1 EACH Vancomycin HCl (Vancomycin Trough Level) 1 each 1X ONCE 11/01/20 12:30 10/31/20 13:36 DC Vancomycin HCl 1.75 gm/Sodium Chloride 500 ml @ 250 mls/hr Q24H 10/31/20 13:00 10/31/20 11:11 DC Vitamin B Complex (Dustin B) 1 tab DAILY 10/31/20 12:00 11/17/20 09:00 1 TAB Ziprasidone (Geodon Im) 10 mg PRN QHS PRN 11/09/20 22:45 Lab Laboratory Tests Test 11/16/20 18:08 11/16/20 20:41 11/17/20 05:00 11/17/20 09:05 Glucose (Fingerstick) 110 mg/dL (70-99) 144 mg/dL (70-99) 108 mg/dL (70-99) Sodium Level 141 mmol/L (136-145) Potassium Level 4.7 mmol/L (3.5-5.1) Chloride Level 103 mmol/L (98-107) Carbon Dioxide Level 35 mmol/L (21-32) Anion Gap 3 (6-14) Blood Urea Nitrogen 22 mg/dL (7-20) Creatinine 3.4 mg/dL (0.6-1.0) Estimated GFR (Cockcroft-Gault) 16.7 Glucose Level 108 mg/dL (70-99) Calcium Level 9.2 mg/dL (8.5-10.1) Phosphorus Level 4.7 mg/dL (2.6-4.7) Albumin 1.5 g/dL (3.4-5.0) Test 11/17/20 11:57 Glucose (Fingerstick) 139 mg/dL (70-99) Results All relevant outside records, renal labs, imaging studies, telemetry/EKG's were reviewed. Justicifation of Admission Dx: Justifications for Admission: Justification of Admission Dx: Yes LINDSAY AMOS MD Nov 17, 2020 15:04
[2020-11-17 19:00] VITALS: BP 154/81
[2020-11-17] MEDS: risperiDONE 1 MG TABLET. PO SCH (20:45)
[2020-11-17] MEDS: ATORVASTATIN CALCIUM 10 MG TABLET. PO SCH (20:45)
[2020-11-17] MEDS: FAMOTIDINE 20 MG TABLET. PO SCH (20:45)
[2020-11-17] MEDS ORDERED: DARBEPOETIN ALFA 60 MCG/0.3 ML DISP.SYRIN. SQ SCH (21:00)
[2020-11-17 22:00] LABS: BILIRUBIN,URINE NEGATIVE (NEG); CLARITY,URINE CLEAR; COLOR,URINE YELLOW; NITRITE,URINE NEGATIVE (NEG); PH,URINE 7.5 (<5.0-8.0); PROTEIN,URINE 100 mg/dL (NEG-TRACE); UROBILINOGEN,URINE 0.2 mg/dL (0.2 mg/dL)
[2020-11-17 22:07] LABS: RBC,URINE OCC /HPF (0-2); WBC,URINE OCC /HPF (0-4)
[2020-11-17 22:08] LABS: BACTERIA,URINE 0 /HPF (0-FEW)
[2020-11-17 23:02] VITALS: BP 142/87
[2020-11-18] MEDS: IV DEXTROSE 5 %-0.45 % NACL 1,000 ML IV SCH ×2 (01:16→17:56)
[2020-11-18 03:39] VITALS: BP 174/96
[2020-11-18] MEDS: CALCIUM CARBONATE 500 MG TABLET PO SCH ×6 (03:50→20:58)
[2020-11-18] MEDS: POLYVINYL ALCOHOL 1.4% OPHTH SOLUTION 15ML BOTTLE. OU SCH ×6 (03:50→20:54)
[2020-11-18] MEDS: LEVOTHYROXINE 112 MCG TABLET PO SCH (05:33)
[2020-11-18] MEDS: ACETAMINOPHEN 325 MG TABLET. PO SCH ×4 (05:34→18:00)
[2020-11-18] MEDS: HEPARIN for SUB-Q USE 5,000 UNIT/ML VIAL. SQ SCH ×3 (05:34→20:55)
[2020-11-18 06:04] LABS: BASO # 0.1 x10^3/uL (0.0-0.2); BASO % 1 % (0-3); EOS # 0.2 x10^3/uL (0.0-0.7); EOS % 2 % (0-3); HEMATOCRIT 25.1 % (36.0-47.0); LYMPH # 1.2 x10^3/uL (1.0-4.8); LYMPH % 16 % (24-48); MEAN CORPUSCULAR HEMOGLOBIN 30 pg (25-35); MEAN CORPUSCULAR HGB CONC 32 g/dL (31-37); MEAN CORPUSCULAR VOLUME 93 fL (79-100); MONO # 0.7 x10^3/uL (0.0-1.1); MONO % 9 % (0-9); NEUT # 5.4 x10^3/uL (1.8-7.7); NEUT % 72 % (31-73); PLATELET COUNT 168 x10^3/uL (140-400); RED BLOOD COUNT 2.69 x10^6/uL (3.50-5.40); RED CELL DISTRIBUTION WIDTH 16.4 % (11.5-14.5); WHITE BLOOD COUNT 7.6 x10^3/uL (4.0-11.0)
[2020-11-18 06:14] LABS: ALBUMIN 1.7 g/dL (3.4-5.0); ALBUMIN/GLOBULIN RATIO 0.4 (1.0-1.7); CALCIUM 9.2 mg/dL (8.5-10.1); CREATININE 3.5 mg/dL (0.6-1.0); GFR 16.2; PHOSPHORUS 4.8 mg/dL (2.6-4.7); POTASSIUM 4.3 mmol/L (3.5-5.1); TOTAL BILIRUBIN 0.3 mg/dL (0.2-1.0); TOTAL PROTEIN 6.5 g/dL (6.4-8.2)
[2020-11-18 07:00] VITALS: BP 172/105
[2020-11-18] MEDS: INSULIN LISPRO 300 UNITS/3 ML VIAL. SQ SCH ×3 (08:00→17:00)
[2020-11-18] MEDS: guaiFENesin ORAL 200 MG/10 ML LIQUID. PO PRN (08:43)
[2020-11-18] MEDS: buPROPion XL 150 MG TAB.ER.24H. PO SCH (08:45)
[2020-11-18] MEDS: LACTOBACILLUS RHAMNOSUS GG 1 CAPSULE. PO SCH ×2 (08:47→20:54)
[2020-11-18] MEDS: ASPIRIN CHEWABLE 81 MG TABLET. PO SCH (08:47)
[2020-11-18] MEDS: DIPHENOXYLATE/ATROPINE TABLET. PO SCH ×3 (08:47→20:54)
[2020-11-18] MEDS: FOLIC ACID 1 MG TABLET. PO SCH (08:47)
[2020-11-18] MEDS: cloNIDine HCL 0.2 MG TABLET PO SCH ×3 (08:48→20:54)
[2020-11-18] MEDS: DICYCLOMINE HCL 10 MG CAPSULE PO SCH ×3 (08:48→20:55)
[2020-11-18] MEDS: CETIRIZINE HCL 10 MG TABLET. PO SCH (08:49)
[2020-11-18] MEDS: VITAMIN B COMPLEX TABLET. PO SCH (08:49)
[2020-11-18] MEDS: GABAPENTIN 100 MG CAPSULE. PO SCH ×3 (08:49→20:55)
[2020-11-18] MEDS: rOPINIRole 1 MG TABLET. PO SCH (08:49)
[2020-11-18] MEDS: MAGNESIUM OXIDE 400 MG TABLET PO SCH (08:50)
[2020-11-18] MEDS: MULTIVITAMIN with MINERAL TABLET. PO SCH (08:52)
[2020-11-18] MEDS: METOPROLOL SUCC 24HR ER 100 MG TAB.ER.24H. PO SCH (08:52)
--- NOTE | 2020-11-18 10:16 | PDOC ---
DATE OF SERVICE DATE: 11/18/20 TIME: 10:14 SUBJECTIVE ROS Stable OBJECTIVE Vital Signs Vital Signs Date Time Temp Pulse Resp B/P (MAP) Pulse Ox O2 Delivery O2 Flow Rate FiO2 11/18/20 08:52 98 172/105 11/18/20 07:00 97.6 20 98 Nasal Cannula 5.0 97.6 I & 0 Intake and Output 11/18/20 07:00 Intake Total 960 ml Output Total 925 ml Balance 35 ml Intake Oral 60 ml IV Total 900 ml Output Urine Total 925 ml PHYSICAL EXAM Physical Exam General Appearance: no apparent distress HEEN OM moist Skin: no rash Respiratory: decreased breath sounds Heart: S1S2 Abdomen: soft, obese bowel sounds present Genitourinary: [place] + Extremities: no edema Neurology: confused DIAGNOSIS/ASSESSMENT Assessment & Plan JACKIE-ATN- stable, no improvement , UA No Micr hematuria Supportive care , strict I/O ,avoid nephrotoxins, may consider renal Biopsy Anemia - Hgb dropping, postmenopausal bleeding , Gynec following Proteinuria- Nephrotic, No Micr hematuria , No WBC's or cast CKD stage 2/3 CHF compensated / CM with EF 45% COVID Positive Acute hypoxemic hypercapnic respiratory failure- extubated Blood cultures positive AICD in UTI COMMENT/RELEVANT DATA Meds Current Medications Medications (Trade) Dose Ordered Sig/Eber Start Time Stop Time Status Last Admin Dose Admin Acetaminophen (Tylenol Supp) 650 mg PRN Q6HRS PRN 11/02/20 00:00 11/02/20 07:27 650 MG Acetaminophen (Tylenol) 650 mg Q6HRS 10/31/20 12:00 11/18/20 08:45 650 MG Albuterol Sulfate (Ventolin Hfa) 1 puff PRN Q6HRS PRN 11/04/20 13:45 11/04/20 13:50 1 PUFF Albuterol Sulfate (Ventolin Neb Soln) 2.5 mg PRN Q6HRS PRN 11/03/20 06:00 Albuterol/ Ipratropium (Duoneb) 3 ml PRN Q4HRS PRN 11/02/20 07:00 11/02/20 07:03 DC Amino Acids/ Glycerin/ Electrolytes 1,000 ml @ 100 mls/hr Q10H 11/01/20 13:30 11/09/20 14:40 DC 11/09/20 08:28 100 MLS/HR Amoxicillin/ Clavulanate Potassium (Augmentin 500/ 125mg) 1 tab BID 11/07/20 10:00 11/08/20 10:45 DC 11/08/20 09:14 1 TAB Aspirin (Aspirin Chewable) 81 mg [id number] 10/31/20 08:00 11/18/20 08:47 81 MG Atorvastatin Calcium (Lipitor) 10 mg HS 10/31/20 21:00 11/17/20 20:45 10 MG Atropine Sulfate (ATROPINE 0.5mg SYRINGE) 0.5 mg PRN Q5MIN PRN 11/03/20 12:00 11/13/20 08:16 DC Budesonide (Pulmicort) 0.5 mg RTBID 10/31/20 20:00 11/01/20 13:52 DC Bupropion HCl (Wellbutrin Xl) 150 mg DAILY 10/31/20 12:00 11/18/20 08:45 150 MG Calcium Carbonate/ Glycine (Oscal) 500 mg Q4HRS 10/31/20 12:00 11/18/20 08:47 500 MG Carvedilol (Coreg) 12.5 mg BIDWMEALS 10/31/20 17:00 11/03/20 11:10 DC 11/01/20 08:43 12.5 MG Cetirizine HCl (ZyrTEC) 10 mg DAILY 11/01/20 09:00 11/18/20 08:49 10 MG Clonazepam (KlonoPIN) 0.5 mg BID 10/31/20 12:00 11/13/20 13:12 DC 11/13/20 09:03 0.5 MG Clonidine HCl (Catapres) 0.2 mg TID 10/31/20 12:00 11/18/20 08:48 0.2 MG Darbepoetin Nick (ARANESP for DIALYSIS PTS) 60 mcg WEEKLYHS 11/17/20 21:00 11/17/20 20:46 60 MCG Dexamethasone Sodium Phosphate (Decadron) 6 mg DAILY 11/05/20 09:00 11/11/20 10:17 DC 11/11/20 09:15 6 MG Dexmedetomidine HCl 400 mcg/ Sodium Chloride 100 ml @ 0 mls/hr CONT PRN 11/03/20 12:00 11/13/20 08:16 DC 11/04/20 05:42 22.1 MLS/HR Dextrose (Dextrose 50%-Water Syringe) 25 gm 1X ONCE 11/10/20 06:30 11/10/20 06:31 DC 11/10/20 07:42 25 GM Dextrose/Sodium Chloride 1,000 ml @ 75 mls/hr [id number] 11/13/20 11:15 11/18/20 01:16 75 MLS/HR Dicyclomine HCl (Bentyl) 20 mg TID 10/31/20 14:00 11/18/20 08:48 20 MG Diphenoxylate HCl/ Atropine (Lomotil) 1 tab TID 10/31/20 14:00 11/18/20 08:47 1 TAB Doxycycline Hyclate (Vibra-Tab) 100 mg BID 11/05/20 09:00 11/05/20 09:43 DC Enoxaparin Sodium (Lovenox 120mg Syringe) 110 mg 1X ONCE 10/30/20 06:15 10/30/20 06:16 DC 10/30/20 06:27 110 MG Etomidate (Amidate) 20 mg STK-MED ONCE 10/30/20 10:43 10/30/20 10:43 DC Famotidine (Pepcid) 20 mg HS 10/31/20 21:00 11/17/20 20:45 20 MG Fentanyl Citrate (Fentanyl 2ml Vial) 50 mcg PRN Q2HR PRN 10/31/20 07:45 10/31/20 20:08 50 MCG Folic Acid (Folic Acid) 0.5 mg DAILY 10/31/20 12:00 11/18/20 08:47 0.5 MG Furosemide (Lasix) 40 mg DAILY 11/03/20 12:00 11/06/20 11:34 DC 11/05/20 10:27 40 MG Gabapentin (Neurontin) 100 mg TID 10/31/20 14:00 11/18/20 08:49 100 MG Glycerin/ Hypromellose/ Polyethylene (Artificial Tears) 2 drop Q4HRS 10/31/20 16:00 11/17/20 20:45 2 DROP Guaifenesin (Robitussin) 200 mg PRN Q4HRS PRN 10/31/20 12:45 11/18/20 08:43 200 MG Haloperidol Lactate (Haldol Inj) 5 mg PRN Q6HRS PRN 11/13/20 13:15 Heparin Sodium (Porcine) (Heparin Sodium) 5,000 unit Q8HRS 10/30/20 22:00 11/18/20 05:34 5,000 UNIT Ibuprofen (Motrin) 400 mg PRN Q6HRS PRN 10/31/20 11:15 11/14/20 20:11 DC Insulin Human Lispro (HumaLOG) 10 units 1X ONCE 11/09/20 15:00 11/09/20 14:56 DC Insulin Human Regular (HumuLIN R VIAL) 10 unit 1X ONCE 11/10/20 06:30 11/10/20 06:31 DC 11/10/20 07:43 10 UNIT Labetalol HCl (Normodyne Iv Push) 20 mg PRN Q2HR PRN 11/02/20 11:30 11/12/20 05:24 20 MG Lactobacillus Rhamnosus (Culturelle) 1 cap BID 10/31/20 12:00 11/18/20 08:47 1 CAP Levothyroxine Sodium (Synthroid) 112 mcg DAILY06 11/01/20 09:00 11/18/20 05:33 112 MCG Loperamide HCl (Imodium) 2 mg PRN DAILY PRN 10/31/20 11:15 11/07/20 09:53 2 MG Lorazepam (Ativan Inj) 0.5 mg PRN Q4HRS PRN 11/10/20 09:15 11/13/20 13:12 DC 11/12/20 03:55 0.5 MG Lorazepam (Ativan) 0.5 mg PRN Q8HRS PRN 10/31/20 11:15 11/10/20 14:03 0.5 MG Magnesium Oxide (Magnesium Oxide) 400 mg DAILY 10/31/20 12:00 11/18/20 08:50 400 MG Metformin HCl (Glucophage) 250 mg BIDWMEALS 10/31/20 17:00 11/08/20 08:58 DC 11/07/20 17:25 250 MG Metoprolol Succinate (Toprol Xl) 100 mg DAILY 11/12/20 09:00 11/18/20 08:52 100 MG Metoprolol Tartrate (Lopressor Vial) 5 mg PRN Q6HRS PRN 11/11/20 16:15 Midazolam HCl 100 mg/Sodium Chloride 100 ml @ 0 mls/hr ONCE ONCE 10/30/20 06:45 10/30/20 06:46 DC 10/30/20 07:10 1 MLS/HR Multivitamins (Thera M Plus) 1 tab DAILY 10/31/20 12:30 11/18/20 08:52 1 TAB Non-Formulary Medication (Fluticasone/ Salmeterol (Advair 500-50 Diskus)) 1 puff BID 10/31/20 21:00 UNV Non-Formulary Medication (Peg 400/ Hypromellose/ Glycerin (Artificial Tears Drops)) 1 drop QID 10/31/20 13:00 UNV Non-Formulary Medication (Polyvinyl Alcohol (Tears Again)) 2 drop Q4HRS 10/31/20 12:00 UNV Non-Formulary Medication (Risperidone ) 0.5 mg DAILY 11/01/20 09:00 UNV Norepinephrine Bitartrate 8 mg/ Dextrose 258 ml @ 17.202 mls/ hr CONT PRN 11/03/20 13:45 11/11/20 10:17 DC 11/04/20 05:54 8.3 MLS/HR Nystatin (Nystop) 1 luis PRN BID PRN 10/31/20 11:15 11/14/20 08:19 1 LUIS Ondansetron HCl (Zofran Odt) 4 mg PRN Q8HRS PRN 10/31/20 12:30 Ondansetron HCl (Zofran) 4 mg PRN Q8HRS PRN 10/30/20 06:00 10/31/20 05:59 DC Piperacillin Sod/ Tazobactam Sod (Zosyn Per Pharmacy) 1 each PRN DAILY PRN 10/30/20 06:00 11/06/20 11:03 DC Piperacillin Sod/ Tazobactam Sod 3.375 gm/Sodium Chloride 50 ml @ 100 mls/hr Q6HRS 11/05/20 12:00 11/06/20 09:15 DC 11/06/20 00:04 100 MLS/HR Piperacillin Sod/ Tazobactam Sod 4.5 gm/Sodium Chloride 100 ml @ 200 mls/hr Q6HRS 10/30/20 12:00 11/04/20 09:59 DC 11/04/20 05:10 200 MLS/HR Polyethylene Glycol (miraLAX PACKET) 17 gm PRN DAILY PRN 11/09/20 10:30 Potassium Bicarbonate (Potassium Effervescent Tablet) 80 meq 1X ONCE 10/31/20 09:45 10/31/20 09:46 DC 10/31/20 13:20 80 MEQ Potassium Chloride (Klor-Con) 10 meq [id number] 11/02/20 08:00 11/08/20 14:35 DC 11/07/20 09:08 10 MEQ Propofol 100 ml @ 3.408 mls/ hr CONT PRN 10/30/20 09:00 11/13/20 08:16 DC 10/31/20 12:07 3.408 MLS/HR Risperidone (RisperDAL) 1 mg QHS 10/31/20 21:00 11/17/20 20:45 1 MG Ropinirole HCl (Requip) 2 mg DAILY 11/01/20 09:00 11/18/20 08:49 2 MG Simethicone (Gas-X) 160 mg PRN Q2HR PRN 10/31/20 12:00 11/06/20 17:23 160 MG Sodium Bicarbonate 50 meq/Sodium Chloride 1,050 ml @ 100 mls/hr [id number] 11/09/20 16:00 11/13/20 11:10 DC 11/13/20 06:20 100 MLS/HR Sodium Polystyrene Sulfonate (Kayexalate) 15 gm 1X ONCE 11/10/20 19:00 11/10/20 19:01 DC 11/10/20 18:11 15 GM Sodium Bicarbonate (Sodium Bicarb Adult 8.4% Syr) 50 meq 1X ONCE 11/10/20 06:30 11/10/20 06:31 DC 11/10/20 07:41 50 MEQ Sodium Chloride 1,000 ml @ 125 mls/hr Q8H 11/06/20 16:30 11/07/20 10:52 DC 11/06/20 23:41 125 MLS/HR Succinylcholine Chloride (Anectine) 200 mg STK-MED ONCE 10/30/20 10:43 10/30/20 10:44 DC Tramadol HCl (Ultram) 50 mg PRN Q6HRS PRN 12/17/20 11:15 Vancomycin HCl (Vanco Per Pharmacy) 1 each PRN DAILY PRN 10/30/20 11:00 10/31/20 11:11 DC 10/31/20 09:51 1 EACH Vancomycin HCl (Vancomycin Trough Level) 1 each 1X ONCE 11/01/20 12:30 10/31/20 13:36 DC Vancomycin HCl 1.75 gm/Sodium Chloride 500 ml @ 250 mls/hr Q24H 10/31/20 13:00 10/31/20 11:11 DC Vitamin B Complex (Dustin B) 1 tab DAILY 10/31/20 12:00 11/18/20 08:49 1 TAB Ziprasidone (Geodon Im) 10 mg PRN QHS PRN 11/09/20 22:45 Lab Laboratory Tests Test 11/17/20 11:57 11/17/20 17:31 11/17/20 21:23 11/17/20 21:30 Glucose (Fingerstick) 139 mg/dL (70-99) 124 mg/dL (70-99) 101 mg/dL (70-99) Urine Collection Type Unknown Urine Color Yellow Urine Clarity Clear Urine pH 7.5 (<5.0-8.0) Urine Specific [place] 1.010 (1.000-1.030) Urine Protein 100 mg/dL (NEG-TRACE) Urine Glucose (UA) Negative mg/dL (NEG) Urine Ketones (Stick) Negative mg/dL (NEG) Urine Blood Trace (NEG) Urine Nitrite Negative (NEG) Urine Bilirubin Negative (NEG) Urine Urobilinogen Dipstick 0.2 mg/dL (0.2 mg/dL) Urine Leukocyte Esterase Negative (NEG) Urine RBC Occ /HPF (0-2) Urine WBC Occ /HPF (0-4) Urine Bacteria 0 /HPF (0-FEW) Urine Mucus Slight /LPF Urine Random Creatinine 32.0 mg/dL (Not Establ.) Urine Random Total Protein 173.4 mg/dL (Not Establ.) Urine Protein/Creatinine Ratio 5419 mg/g (0-200) Test 11/18/20 05:00 11/18/20 06:13 White Blood Count 7.6 x10^3/uL (4.0-11.0) Red Blood Count 2.69 x10^6/uL (3.50-5.40) Hemoglobin 8.0 g/dL (12.0-15.5) Hematocrit 25.1 % (36.0-47.0) Mean Corpuscular Volume 93 fL (79-100) Mean Corpuscular Hemoglobin 30 pg (25-35) Mean Corpuscular Hemoglobin Concent 32 g/dL (31-37) Red Cell Distribution Width 16.4 % (11.5-14.5) Platelet Count 168 x10^3/uL (140-400) Neutrophils (%) (Auto) 72 % (31-73) Lymphocytes (%) (Auto) 16 % (24-48) Monocytes (%) (Auto) 9 % (0-9) Eosinophils (%) (Auto) 2 % (0-3) Basophils (%) (Auto) 1 % (0-3) Neutrophils # (Auto) 5.4 x10^3/uL (1.8-7.7) Lymphocytes # (Auto) 1.2 x10^3/uL (1.0-4.8) Monocytes # (Auto) 0.7 x10^3/uL (0.0-1.1) Eosinophils # (Auto) 0.2 x10^3/uL (0.0-0.7) Basophils # (Auto) 0.1 x10^3/uL (0.0-0.2) Sodium Level 140 mmol/L (136-145) Potassium Level 4.3 mmol/L (3.5-5.1) Chloride Level 102 mmol/L (98-107) Carbon Dioxide Level 34 mmol/L (21-32) Anion Gap 4 (6-14) Blood Urea Nitrogen 19 mg/dL (7-20) Creatinine 3.5 mg/dL (0.6-1.0) Estimated GFR (Cockcroft-Gault) 16.2 BUN/Creatinine Ratio 5 (6-20) Glucose Level 98 mg/dL (70-99) Calcium Level 9.2 mg/dL (8.5-10.1) Phosphorus Level 4.8 mg/dL (2.6-4.7) Total Bilirubin 0.3 mg/dL (0.2-1.0) Aspartate Amino Transf (AST/SGOT) 49 U/L (15-37) Alanine Aminotransferase (ALT/SGPT) 24 U/L (14-59) Alkaline Phosphatase 101 U/L (46-116) Total Protein 6.5 g/dL (6.4-8.2) Albumin 1.7 g/dL (3.4-5.0) Albumin/Globulin Ratio 0.4 (1.0-1.7) Glucose (Fingerstick) 114 mg/dL (70-99) Results All relevant outside records, renal labs, imaging studies, telemetry/EKG's were reviewed. Justicifation of Admission Dx: Justifications for Admission: Justification of Admission Dx: Yes SARAHI SORENSEN MD Nov 18, 2020 10:16
[2020-11-18 11:00] VITALS: BP 177/94
--- NOTE | 2020-11-18 11:34 | PDOC ---
PULMONARY PROGRESS NOTES DATE: 11/18/20 TIME: 11:34 Subjective on 3 liters N/C resting comfortably no overnight events Vitals Vital Signs Date Time Temp Pulse Resp B/P (MAP) Pulse Ox O2 Delivery O2 Flow Rate FiO2 11/18/20 08:52 98 172/105 11/18/20 08:00 Nasal Cannula 5.0 11/18/20 07:00 97.6 20 98 97.6 Comments visual exam done due to COVID-19 pandemic RRR Awake and alert N/C No edema ROS: No Nausea, No Chest Pain, No Abdominal Pain, No Increase Cough General: Alert Lungs: Clear Cardiovascular: S1, S2 Labs Laboratory Tests Test 11/16/20 12:17 11/16/20 18:08 11/16/20 20:41 11/17/20 05:00 Glucose (Fingerstick) 107 mg/dL (70-99) 110 mg/dL (70-99) 144 mg/dL (70-99) Sodium Level 141 mmol/L (136-145) Potassium Level 4.7 mmol/L (3.5-5.1) Chloride Level 103 mmol/L (98-107) Carbon Dioxide Level 35 mmol/L (21-32) Anion Gap 3 (6-14) Blood Urea Nitrogen 22 mg/dL (7-20) Creatinine 3.4 mg/dL (0.6-1.0) Estimated GFR (Cockcroft-Gault) 16.7 Glucose Level 108 mg/dL (70-99) Calcium Level 9.2 mg/dL (8.5-10.1) Phosphorus Level 4.7 mg/dL (2.6-4.7) C-Reactive Protein, Quantitative 64.0 mg/L (0-3.3) Albumin 1.5 g/dL (3.4-5.0) Test 11/17/20 09:05 11/17/20 11:57 11/17/20 17:31 11/17/20 21:23 Glucose (Fingerstick) 108 mg/dL (70-99) 139 mg/dL (70-99) 124 mg/dL (70-99) 101 mg/dL (70-99) Test 11/17/20 21:30 11/18/20 05:00 11/18/20 06:13 Urine Collection Type Unknown Urine Color Yellow Urine Clarity Clear Urine pH 7.5 (<5.0-8.0) Urine Specific [place] 1.010 (1.000-1.030) Urine Protein 100 mg/dL (NEG-TRACE) Urine Glucose (UA) Negative mg/dL (NEG) Urine Ketones (Stick) Negative mg/dL (NEG) Urine Blood Trace (NEG) Urine Nitrite Negative (NEG) Urine Bilirubin Negative (NEG) Urine Urobilinogen Dipstick 0.2 mg/dL (0.2 mg/dL) Urine Leukocyte Esterase Negative (NEG) Urine RBC Occ /HPF (0-2) Urine WBC Occ /HPF (0-4) Urine Bacteria 0 /HPF (0-FEW) Urine Mucus Slight /LPF Urine Random Creatinine 32.0 mg/dL (Not Establ.) Urine Random Total Protein 173.4 mg/dL (Not Establ.) Urine Protein/Creatinine Ratio 5419 mg/g (0-200) White Blood Count 7.6 x10^3/uL (4.0-11.0) Red Blood Count 2.69 x10^6/uL (3.50-5.40) Hemoglobin 8.0 g/dL (12.0-15.5) Hematocrit 25.1 % (36.0-47.0) Mean Corpuscular Volume 93 fL (79-100) Mean Corpuscular Hemoglobin 30 pg (25-35) Mean Corpuscular Hemoglobin Concent 32 g/dL (31-37) Red Cell Distribution Width 16.4 % (11.5-14.5) Platelet Count 168 x10^3/uL (140-400) Neutrophils (%) (Auto) 72 % (31-73) Lymphocytes (%) (Auto) 16 % (24-48) Monocytes (%) (Auto) 9 % (0-9) Eosinophils (%) (Auto) 2 % (0-3) Basophils (%) (Auto) 1 % (0-3) Neutrophils # (Auto) 5.4 x10^3/uL (1.8-7.7) Lymphocytes # (Auto) 1.2 x10^3/uL (1.0-4.8) Monocytes # (Auto) 0.7 x10^3/uL (0.0-1.1) Eosinophils # (Auto) 0.2 x10^3/uL (0.0-0.7) Basophils # (Auto) 0.1 x10^3/uL (0.0-0.2) Sodium Level 140 mmol/L (136-145) Potassium Level 4.3 mmol/L (3.5-5.1) Chloride Level 102 mmol/L (98-107) Carbon Dioxide Level 34 mmol/L (21-32) Anion Gap 4 (6-14) Blood Urea Nitrogen 19 mg/dL (7-20) Creatinine 3.5 mg/dL (0.6-1.0) Estimated GFR (Cockcroft-Gault) 16.2 BUN/Creatinine Ratio 5 (6-20) Glucose Level 98 mg/dL (70-99) Calcium Level 9.2 mg/dL (8.5-10.1) Phosphorus Level 4.8 mg/dL (2.6-4.7) Total Bilirubin 0.3 mg/dL (0.2-1.0) Aspartate Amino Transf (AST/SGOT) 49 U/L (15-37) Alanine Aminotransferase (ALT/SGPT) 24 U/L (14-59) Alkaline Phosphatase 101 U/L (46-116) Total Protein 6.5 g/dL (6.4-8.2) Albumin 1.7 g/dL (3.4-5.0) Albumin/Globulin Ratio 0.4 (1.0-1.7) Glucose (Fingerstick) 114 mg/dL (70-99) Laboratory Tests Test 11/17/20 11:57 11/17/20 17:31 11/17/20 21:23 11/17/20 21:30 Glucose (Fingerstick) 139 mg/dL (70-99) 124 mg/dL (70-99) 101 mg/dL (70-99) Urine Collection Type Unknown Urine Color Yellow Urine Clarity Clear Urine pH 7.5 (<5.0-8.0) Urine Specific [place] 1.010 (1.000-1.030) Urine Protein 100 mg/dL (NEG-TRACE) Urine Glucose (UA) Negative mg/dL (NEG) Urine Ketones (Stick) Negative mg/dL (NEG) Urine Blood Trace (NEG) Urine Nitrite Negative (NEG) Urine Bilirubin Negative (NEG) Urine Urobilinogen Dipstick 0.2 mg/dL (0.2 mg/dL) Urine Leukocyte Esterase Negative (NEG) Urine RBC Occ /HPF (0-2) Urine WBC Occ /HPF (0-4) Urine Bacteria 0 /HPF (0-FEW) Urine Mucus Slight /LPF Urine Random Creatinine 32.0 mg/dL (Not Establ.) Urine Random Total Protein 173.4 mg/dL (Not Establ.) Urine Protein/Creatinine Ratio 5419 mg/g (0-200) Test 11/18/20 05:00 11/18/20 06:13 White Blood Count 7.6 x10^3/uL (4.0-11.0) Red Blood Count 2.69 x10^6/uL (3.50-5.40) Hemoglobin 8.0 g/dL (12.0-15.5) Hematocrit 25.1 % (36.0-47.0) Mean Corpuscular Volume 93 fL (79-100) Mean Corpuscular Hemoglobin 30 pg (25-35) Mean Corpuscular Hemoglobin Concent 32 g/dL (31-37) Red Cell Distribution Width 16.4 % (11.5-14.5) Platelet Count 168 x10^3/uL (140-400) Neutrophils (%) (Auto) 72 % (31-73) Lymphocytes (%) (Auto) 16 % (24-48) Monocytes (%) (Auto) 9 % (0-9) Eosinophils (%) (Auto) 2 % (0-3) Basophils (%) (Auto) 1 % (0-3) Neutrophils # (Auto) 5.4 x10^3/uL (1.8-7.7) Lymphocytes # (Auto) 1.2 x10^3/uL (1.0-4.8) Monocytes # (Auto) 0.7 x10^3/uL (0.0-1.1) Eosinophils # (Auto) 0.2 x10^3/uL (0.0-0.7) Basophils # (Auto) 0.1 x10^3/uL (0.0-0.2) Sodium Level 140 mmol/L (136-145) Potassium Level 4.3 mmol/L (3.5-5.1) Chloride Level 102 mmol/L (98-107) Carbon Dioxide Level 34 mmol/L (21-32) Anion Gap 4 (6-14) Blood Urea Nitrogen 19 mg/dL (7-20) Creatinine 3.5 mg/dL (0.6-1.0) Estimated GFR (Cockcroft-Gault) 16.2 BUN/Creatinine Ratio 5 (6-20) Glucose Level 98 mg/dL (70-99) Calcium Level 9.2 mg/dL (8.5-10.1) Phosphorus Level 4.8 mg/dL (2.6-4.7) Total Bilirubin 0.3 mg/dL (0.2-1.0) Aspartate Amino Transf (AST/SGOT) 49 U/L (15-37) Alanine Aminotransferase (ALT/SGPT) 24 U/L (14-59) Alkaline Phosphatase 101 U/L (46-116) Total Protein 6.5 g/dL (6.4-8.2) Albumin 1.7 g/dL (3.4-5.0) Albumin/Globulin Ratio 0.4 (1.0-1.7) Glucose (Fingerstick) 114 mg/dL (70-99) Medications Active Scripts Medications Dose Route/Sig Max Daily Dose Days Date Category Dose Instructions Lomotil Tablet (Diphenoxylate Hcl/Atropine) 1 Each Tablet 1 Tab PO TID 3 10/28/20 Rx Dicyclomine Hcl 20 Mg Tablet 1 Tab PO TID 10 10/28/20 Rx Zithromax (Azithromycin) 250 Mg Tablet 250 Mg PO DIRECTED 10/28/20 Rx Take 2 PO x 1 days Then take 1 PO q 24 hour for the next 4 days Doxycycline Hyclate 100 Mg Tablet 1 Tab PO BID 3 12/04/19 Rx Culturelle (Lactobacillus Rhamnosus Gg) 1 Each Cap.sprink 1 Cap PO BID 14 12/04/19 Rx Zofran (Ondansetron Hcl) 4 Mg Tablet 4 Mg PO Q8HRS PRN 12/02/19 Reported Tramadol Hcl 50 Mg Tablet 50 Mg PO Q6HRS PRN 12/02/19 Reported Tears Again (Polyvinyl Alcohol) 15 Ml Drops 2 Drop EACHEYE Q4HRS 30 12/02/19 Reported Polyvinyl Alcohol 15 Ml Drops 2 Drop EACHEYE Q4HRS 30 12/02/19 Reported Ropinirole Hcl 1 Mg Tablet 1 Mg PO BID 12/02/19 Reported Pantoprazole Sodium (Pantoprazole Sodium) 40 Mg Tablet.dr 40 Mg PO DAILYAC 12/02/19 Reported B-Complex Plus Vitamin C (B Complex With Vitamin C) 1 Each Tablet 1 Each PO DAILY 12/02/19 Reported Magnesium Oxide 400 Mg Tablet 400 Mg PO DAILY 12/02/19 Reported Loratadine 10 Mg Tablet 10 Mg PO DAILY 12/02/19 Reported Ketotifen Fumarate 5 Ml Drops 1 Drop EACHEYE BID 12/02/19 Reported Humalog (Insulin Lispro) 100 Unit/1 Ml Vial 100 Unit SQ BIDWMEALS 12/02/19 Reported 70 - 150 0 units 151 - 200 0 units 201 - 250 2 units 251 - 300 3 units 301 - 349 4 units if FSBS is under 70 or 350 and over call MD [guaifenesin Syrup] 10 Ml PO Q4HRS PRN 12/02/19 Reported Mucinex (Guaifenesin) 600 Mg Tablet.er 600 Mg PO BID 12/02/19 Reported Coreg (Carvedilol) 25 Mg Tablet 50 Mg PO BIDWMEALS 12/02/19 Reported Peridex (Chlorhexidine Gluconate) 15 Ml Mouthwash 15 Ml PO BID 30 12/02/19 Reported Swish in mouth for 30 seconds then spit out Calcium Carbonate 500 Mg Tablet 500 Mg PO Q4HRS 12/02/19 Reported Atorvastatin Calcium 10 Mg Tablet 10 Mg PO HS 12/02/19 Reported Acetaminophen 325 Mg Tablet 650 Mg PO Q6HRS 12/02/19 Reported Metformin Hcl 500 Mg Tablet 250 Mg PO BIDWMEALS 12/03/18 Reported Imodium A-D (Loperamide HCl) 2 Mg Capsule 2 Mg PO DAILY PRN 12/03/18 Reported Risperidone 0.5 Mg Tablet 0.5 Mg PO DAILY 03/21/18 Reported Risperidone 1 Mg Tablet 1 Tab PO QHS 03/21/18 Reported Levothyroxine Sodium 112 Mcg Tablet 1 Tab PO DAILY 03/21/18 Reported Advair 500-50 Diskus (Fluticasone/Salmeterol) 1 Each Disk.w.dev 1 Puff IH BID 03/21/18 Reported Nystatin 15 Gm Powder 1 Scott TP PRN BID PRN 03/21/18 Reported Clonazepam (Clonazepam) 0.5 Mg Tablet 1 Tab PO BID 09/30/16 Reported Montelukast Sodium Tablet (Montelukast Sodium) 10 Mg Tablet 1 Tab PO HS 02/18/16 Reported Gas-X (Simethicone) 80 Mg Tab.chew 160 Mg PO Q2HR PRN 02/18/16 Reported Gabapentin (Gabapentin) 100 Mg Capsule 100 Mg PO TID 02/18/[address] chest 1. Cardiomegaly. 2. Increased consolidative opacities in the left lung and scattered groundglass opacities in the right lung are suspicious for pneumonia. Some of the opacities in the left upper lobe are chronic scarring or atelectasis present on prior exam. 3. New trace bilateral pleural effusions. No large or drainable pleural effusion. Electronically signed by: Renetta Edouard MD (11/04/2020 4:07 PM) [id number] U/S IMPRESSION: 1. Thickened endometrium, may relate to endometrial hyperplasia although endometrial carcinoma is possible. Recommend further clinical evaluation and biopsy if indicated. 2. Several uterine masses, likely fibroids. Impression . IMPRESSION: 1. Acute on chronic hypoxemic hypercapnic respiratory failure, extubated .10/31, Has been restless on/off. received ativan night of 11/09/ increase hypoxia/ on BIPAP/ 60%, now more awake, off BIPAP 2. Abnormal x-ray compatible with acute on chronic congestive heart failure,/ COVID-19. 3. Abnormal ct chest c/w COVID-19 PNEUMONIA/ ? BACTERIAL PNA 4. COVID-19 5. Acute metabolic toxic encephalopathy. 6. History of status post pacemaker defibrillator implantation. 7. Restless legs syndrome. 8. Schizoaffective disorder. 9. Acute on chronic systolic heart failure. 9. Non-ST segment elevation myocardial infarction. 10. Cardiomyopathy, ejection fraction on 11/2019 revealed EF of 45%. 11. Atrial fibrillation with V paced, currently underlying sinus rhythm. 12. Hyperlipidemia. 13. Hypothyroidism. 14. Fever, rule out bacteremia. 15. Sepsis.resolved 16. JACKIE Plan . PLAN: Supplemental oxygen to keep sats above 92%, on 3 liters N/C Follow OB recs 2/2/ vaginal bleeding and abnormal U/S,Will need endometrial sample via EMB or D&C. Can be arranged as an outpt Follow cardiology recs--- Plan outpatient ischemic evaluation, ECHO when recovered from COVID-19 Follow nephrology recs-- worsening renal function-- monitor PT/OT/ST--on no dysphasia 1 diet per speech Hypertension Per PCP DVT/GI PPX social work for D/C planning D/W MIGUEL VALENCIA MD Nov 18, 2020 11:34
--- NOTE | 2020-11-18 12:39 | NUR ---
SS following up with discharge planning. SS reviewed pt chart and discussed with pt RN. Pt is currently requiring oxygen via nasal canula. Pt is [facility] resident from [place], ; fax . COVID19 positive. PT/OT recommended half-way unit. Pt has mills in place. Wound care consulted for wounds. Per RN, pt having D&C on 11/20/2020. SS will continue to follow for discharge planning.
--- NOTE | 2020-11-18 12:56 | PDOC ---
RN ACUTE PROGRESS NOTE Date of Service: DATE: 11/18/20 TIME: 12:54 Subjective: Nurse notes that the pt has what appears to be a significant yeast infection of vulva and pannus not responding well to nystatin cream. Objective: Vital Signs: Vital Signs Date Time Temp Pulse Resp B/P (MAP) Pulse Ox O2 Delivery O2 Flow Rate FiO2 11/17/20 08:00 Nasal Cannula 3.0 11/17/20 09:00 86 151/84 11/17/20 11:00 98.0 16 100 98.0 Vital Signs Date Time Temp Pulse Resp B/P (MAP) Pulse Ox O2 Delivery O2 Flow Rate FiO2 11/18/20 11:00 97.8 92 22 177/94 (121) 98 Nasal Cannula 5.0 97.8 Labs: Laboratory Tests Test 11/17/20 17:31 11/17/20 21:23 11/17/20 21:30 11/18/20 05:00 Glucose (Fingerstick) 124 mg/dL (70-99) H 101 mg/dL (70-99) H Urine Collection Type Unknown Urine Color Yellow Urine Clarity Clear Urine pH 7.5 (<5.0-8.0) Urine Specific [place] 1.010 (1.000-1.030) Urine Protein 100 mg/dL (NEG-TRACE) Urine Glucose (UA) Negative mg/dL (NEG) Urine Ketones (Stick) Negative mg/dL (NEG) Urine Blood Trace (NEG) Urine Nitrite Negative (NEG) Urine Bilirubin Negative (NEG) Urine Urobilinogen Dipstick 0.2 mg/dL (0.2 mg/dL) Urine Leukocyte Esterase Negative (NEG) Urine RBC Occ /HPF (0-2) Urine WBC Occ /HPF (0-4) Urine Bacteria 0 /HPF (0-FEW) Urine Mucus Slight /LPF Urine Random Creatinine 32.0 mg/dL (Not Establ.) Urine Random Total Protein 173.4 mg/dL (Not Establ.) Urine Protein/Creatinine Ratio 5419 mg/g (0-200) H White Blood Count 7.6 x10^3/uL (4.0-11.0) Red Blood Count 2.69 x10^6/uL (3.50-5.40) L Hemoglobin 8.0 g/dL (12.0-15.5) L Hematocrit 25.1 % (36.0-47.0) L Mean Corpuscular Volume 93 fL (79-100) Mean Corpuscular Hemoglobin 30 pg (25-35) Mean Corpuscular Hemoglobin Concent 32 g/dL (31-37) Red Cell Distribution Width 16.4 % (11.5-14.5) H Platelet Count 168 x10^3/uL (140-400) Neutrophils (%) (Auto) 72 % (31-73) Lymphocytes (%) (Auto) 16 % (24-48) L Monocytes (%) (Auto) 9 % (0-9) Eosinophils (%) (Auto) 2 % (0-3) Basophils (%) (Auto) 1 % (0-3) Neutrophils # (Auto) 5.4 x10^3/uL (1.8-7.7) Lymphocytes # (Auto) 1.2 x10^3/uL (1.0-4.8) Monocytes # (Auto) 0.7 x10^3/uL (0.0-1.1) Eosinophils # (Auto) 0.2 x10^3/uL (0.0-0.7) Basophils # (Auto) 0.1 x10^3/uL (0.0-0.2) Sodium Level 140 mmol/L (136-145) Potassium Level 4.3 mmol/L (3.5-5.1) Chloride Level 102 mmol/L (98-107) Carbon Dioxide Level 34 mmol/L (21-32) H Anion Gap 4 (6-14) L Blood Urea Nitrogen 19 mg/dL (7-20) Creatinine 3.5 mg/dL (0.6-1.0) H Estimated GFR (Cockcroft-Gault) 16.2 BUN/Creatinine Ratio 5 (6-20) L Glucose Level 98 mg/dL (70-99) Calcium Level 9.2 mg/dL (8.5-10.1) Phosphorus Level 4.8 mg/dL (2.6-4.7) H Total Bilirubin 0.3 mg/dL (0.2-1.0) Aspartate Amino Transferase (AST) 49 U/L (15-37) H Alanine Aminotransferase (ALT) 24 U/L (14-59) Alkaline Phosphatase 101 U/L (46-116) Total Protein 6.5 g/dL (6.4-8.2) Albumin 1.7 g/dL (3.4-5.0) L Albumin/Globulin Ratio 0.4 (1.0-1.7) L Test 11/18/20 06:13 11/18/20 10:20 Glucose (Fingerstick) 114 mg/dL (70-99) H 126 mg/dL (70-99) H Laboratory Tests 11/18/20 05:00 Laboratory Tests 11/18/20 05:00 Laboratory Tests 11/18/20 05:00 Physical Exam: GENERAL: Weak ill and confused HEENT: Both pupils are round and reacting. No conjunctival lesion. No lesion in the mouth. NECK: Supple, no JVP, no lymphadenopathy. LUNGS: Clear. HEART: S1, S2 regular. ABDOMEN: Soft bowel sounds present nontender nondistended Fecal tube present EXTREMITIES: No edema or cyanosis. SKIN: Unremarkable. NEUROLOGIC: Lethargic Assessment & Plan: A/P 60y F admitted for altered mental status 1.) Postmenopausal bleeding Thickened endometrium (10 mm) on pelvic u/s. Since stay may be extended may be better to obtain endometrial sample while an inpt. Scheduled for D&C on 11/20/20 at 10:30 am. Discussed with pts POA (Toni Mulligan). Plans to come in to sign consent. Covid (re-)testing performed for surgery 2.) COVID Positive 10/30/20 3.) Blood cultures positive 4.) Sepsis - resolved 5.) Acute hypoxemic hypercapnic respiratory failure extubated 10/31 6.) Acute on chronic systolic heart failure 7.) H/o OK 8.) Cardiomyopathy - EF of 45%. 9.) A-fib - h/o pacemaker 10.) UTI 11.) Anemia Hgb 9.6 12.) Thrombocytopenia resolved, last 227 13.) YULIYA Cr 2.7, nephrology consulted 14.) Acute metabolic toxic encephalopathy 15.) Schizoaffective disorder 16.) Will cont to follow ASHLYN ROTH MD Nov 18, 2020 12:56
[2020-11-18 15:00] VITALS: BP 128/67
--- NOTE | 2020-11-18 16:13 | PDOC ---
[facility] PROGRESS NOTE Date of Service DOS: DATE: 11/18/20 TIME: 16:11 Chief Complaint Chief Complaint impression COVID Positive Acute kidney injury with possible ATN Acute hypoxemic hypercapnic respiratory failure Acute on chronic heart failure Blood cultures positive Heart failure PMH MD AICD in UTI Hypocalcemia Hypertriglyceridemia Anemia Low platelets Hypoglycemia (43) Elevated Cr Hyperkalemia Vaginal bleeding concerning for endometrial CA Creatinine continues to worsen despite ongoing IV fluids and good urine output. Cannot rule out element of interstitial nephritis. nephrology consult ASO TITER CRP History of Present Illness History of Present Illness 11/18/2020 Patient seen and evaluated. Charts and labs reviewed. Patient currently breathing on 5 L nasal cannula. Discussed with RN, patient is having worsening kidney function despite IV fluids. Avoid nephrotoxins, and follow-up nephrology recommendations. 11/17/2020 Patient seen exam Chart reviewed She appears weak, confused Acute kidney injury with possible ATN 10/31 Patient seen and examined in ICU Patient sedated with propofol Possible COVID - pending under investigation Discussed with RN Chart reviewed Blood culture positive Vent settings as follows AC/18/450/40 11/01 Patient is COVID positive Patient seen and examined in ICU Patient sedated with propofol Discussed with RN Discussed with Parachute Line Tier Chart reviewed Blood cultures are positive 11/02 Patient is COVID positive Patient seen and examined in ICU Propofol IV Discussed with RN Chart Reviewed Blood cultures positive 11/03/2020 Patient resting w/ NAD on Bipap Patient is COVID positive Patient seen and examined in ICU Propofol IV Discussed with RN Chart Reviewed Blood cultures positive 11/04/2020 Patient seen and evaluated. Tachypneic, afebrile. Still breathing on BiPAP. Continue IV Zosyn, positive blood cultures most likely contaminant. Continue diuresis. She is on Levophed and Precedex. Still with some agitation. CT chest pending to evaluate possible thoracentesis. Total time spent 35 minutes, >50% time spent reviewing charts, reviewing labs, discussing with RN and social work instructor. 11/05/2020 Patient seen and evaluated. She is still intermittently requiring BiPAP. Afebrile, tachypneic, tachycardic. Sedated with Haldol. CT chest yesterday showing trace bilateral pleural effusion, no drainable fluid collection. Continue COVID-19 treatment with steroids and supportive care. 11/06/2020 Patient seen and evaluated, status post extubation 10/31. Afebrile, tachycardi c. She is breathing intermittently on BiPAP, currently on 2 L nasal cannula. States she is hungry, swallow eval pending. Continue steroids and antibiotics, per ID. Continue diuresis. 11/07/2020 Patient seen evaluate bedside. Status post extubation on 1216. Rising creatinine of 3.3. Pending nephrology evaluation.> 50% time spent in patient chart, labs, and imaging review and in discussion with RN and SW 11/08/2020 Patient seen and examined bedside. No acute events overnight. Saturating 96% on 4 L nasal cannula during the day and tolerating 35% on BiPAP. Passed speech swallow study and is currently on a dysphagia diet. Augmentin discontinued today per ID.> 50% time spent in patient chart, labs, and imaging review and in discussion with RN and SW 11/09/2020 No acute events overnight. Patient is afebrile. Patient seen and examined bedside. Is somewhat more confused and agitated today mainly due to incontinence to stool. Rectal tube has been removed Hutchins is intact. Will encourage thickened liquids of 240 cc every 6 hours mainly due to JACKIE and worsening potassium. Will defer the rest of the management to nephrology for improving renal function.> 50% time spent in patient chart, labs, and imaging review and in discussion with RN and MADDIE 11/10/2020 Patient given 2 mg IV Ativan last night and subsequently placed on BiPAP. Will change dose to 0.5 p.o. Ativan and see if we can wean off BiPAP and put back on nasal cannula. Patient's chart, labs, images were reviewed and discussed with RN 11/11/2020 No acute events overnight. Patient tolerated BiPAP at night. Currently saturating 94% on 5 L nasal cannula. Elevating potassium levels. Sodium bicarb started. Patient's chart, labs, images were reviewed and discussed with RN 11/12/2020 No acute events overnight. Patient's drowsy this morning but saturating 95% on 3 L nasal cannula. Cannulated patient had some vaginal bleeding and the heparin was held this morning. Discussion with the RN states that her Hutchins might have been tugged causing that episode of bleeding. However patient has not been bleeding this morning and Hutchins and rectal tube was not placed. Patient's chart , labs, images were reviewed and discussed with RN 11/13/2020 No acute events overnight. Patient continues to be drowsy but is following commands and able to make requests for the nurse. Patient saturating 98% on 3 L nasal cannula. Still has some vaginal bleeding around the Hutchins. Rectal tube will be removed today. Will discuss with nephrology for Hutchins removal. Consult gynecology for vaginal bleeding. Patient's chart, labs, images were reviewed and discussed with RN 11/14/20 Continues to be confused and lethargic. Patient is able to communicate. Vitals/I&O Vitals/I&O: Vital Signs Date Time Temp Pulse Resp B/P (MAP) Pulse Ox O2 Delivery O2 Flow Rate FiO2 11/18/20 11:00 97.8 92 22 177/94 (121) 98 Nasal Cannula 5.0 97.8 I & O 11/17/20 11/17/20 11/18/20 15:00 23:00 07:00 Intake Total 60 ml 900 ml Output Total 925 ml 0 ml Balance -865 ml 900 ml Physical Exam Physical Exam: GENERAL: Weak ill and confused HEENT: Both pupils are round and reacting. No conjunctival lesion. No lesion in the mouth. NECK: Supple, no JVP, no lymphadenopathy. LUNGS: Clear. HEART: S1, S2 regular. ABDOMEN: Soft bowel sounds present nontender nondistended Fecal tube present EXTREMITIES: No edema or cyanosis. SKIN: Unremarkable. NEUROLOGIC: Lethargic General: mild distress, Other (Appears lethargic) Heart: Regular rate Lungs: Clear Abdomen: Normal bowel sounds Extremities: No clubbing Skin: No breakdown Labs Labs: Laboratory Tests Test 11/17/20 17:31 11/17/20 21:23 11/17/20 21:30 11/18/20 05:00 Glucose (Fingerstick) 124 mg/dL (70-99) 101 mg/dL (70-99) Urine Collection Type Unknown Urine Color Yellow Urine Clarity Clear Urine pH 7.5 (<5.0-8.0) Urine Specific [place] 1.010 (1.000-1.030) Urine Protein 100 mg/dL (NEG-TRACE) Urine Glucose (UA) Negative mg/dL (NEG) Urine Ketones (Stick) Negative mg/dL (NEG) Urine Blood Trace (NEG) Urine Nitrite Negative (NEG) Urine Bilirubin Negative (NEG) Urine Urobilinogen Dipstick 0.2 mg/dL (0.2 mg/dL) Urine Leukocyte Esterase Negative (NEG) Urine RBC Occ /HPF (0-2) Urine WBC Occ /HPF (0-4) Urine Bacteria 0 /HPF (0-FEW) Urine Mucus Slight /LPF Urine Random Creatinine 32.0 mg/dL (Not Establ.) Urine Random Total Protein 173.4 mg/dL (Not Establ.) Urine Protein/Creatinine Ratio 5419 mg/g (0-200) White Blood Count 7.6 x10^3/uL (4.0-11.0) Red Blood Count 2.69 x10^6/uL (3.50-5.40) Hemoglobin 8.0 g/dL (12.0-15.5) Hematocrit 25.1 % (36.0-47.0) Mean Corpuscular Volume 93 fL (79-100) Mean Corpuscular Hemoglobin 30 pg (25-35) Mean Corpuscular Hemoglobin Concent 32 g/dL (31-37) Red Cell Distribution Width 16.4 % (11.5-14.5) Platelet Count 168 x10^3/uL (140-400) Neutrophils (%) (Auto) 72 % (31-73) Lymphocytes (%) (Auto) 16 % (24-48) Monocytes (%) (Auto) 9 % (0-9) Eosinophils (%) (Auto) 2 % (0-3) Basophils (%) (Auto) 1 % (0-3) Neutrophils # (Auto) 5.4 x10^3/uL (1.8-7.7) Lymphocytes # (Auto) 1.2 x10^3/uL (1.0-4.8) Monocytes # (Auto) 0.7 x10^3/uL (0.0-1.1) Eosinophils # (Auto) 0.2 x10^3/uL (0.0-0.7) Basophils # (Auto) 0.1 x10^3/uL (0.0-0.2) Sodium Level 140 mmol/L (136-145) Potassium Level 4.3 mmol/L (3.5-5.1) Chloride Level 102 mmol/L (98-107) Carbon Dioxide Level 34 mmol/L (21-32) Anion Gap 4 (6-14) Blood Urea Nitrogen 19 mg/dL (7-20) Creatinine 3.5 mg/dL (0.6-1.0) Estimated GFR (Cockcroft-Gault) 16.2 BUN/Creatinine Ratio 5 (6-20) Glucose Level 98 mg/dL (70-99) Calcium Level 9.2 mg/dL (8.5-10.1) Phosphorus Level 4.8 mg/dL (2.6-4.7) Total Bilirubin 0.3 mg/dL (0.2-1.0) Aspartate Amino Transf (AST/SGOT) 49 U/L (15-37) Alanine Aminotransferase (ALT/SGPT) 24 U/L (14-59) Alkaline Phosphatase 101 U/L (46-116) Total Protein 6.5 g/dL (6.4-8.2) Albumin 1.7 g/dL (3.4-5.0) Albumin/Globulin Ratio 0.4 (1.0-1.7) Test 11/18/20 06:13 11/18/20 10:20 Glucose (Fingerstick) 114 mg/dL (70-99) 126 mg/dL (70-99) Assessment and Plan Assessmemt and Plan Problems Medical Problems: (1) AMS (altered mental status) Status: Acute (2) Hypercapnia Status: Acute (3) Person under investigation for COVID-19 Status: Acute (4) Respiratory failure Status: Acute (5) UTI (urinary tract infection) Status: Acute Comment Review of Relevant I have reviewed the following items lucas (where applicable) has been applied. Medications: Current Medications Medications (Trade) Dose Ordered Sig/Eber Route PRN Reason Start Time Stop Time Status Last Admin Dose Admin Darbepoetin Nick (ARANESP for DIALYSIS PTS) 60 mcg WEEKLYHS SQ 11/17/20 21:00 11/17/20 20:46 Justifications for Admission Other Justification STONEY TILLMAN MD Nov 18, 2020 16:13
--- NOTE | 2020-11-18 17:17 | NUR ---
Wound/Ostomy Care Wound Type/Assessment: Wound consult for buttock wounds. Cleansed and assessed wounds, Pt has severe yeast to groin and vagina, clusters of vesicles noted to bilateral buttocks. Treatment Recommendations/Plan: apply calazime and offload as much as possible Education provided: PU prevention and WC POC discussed with [employer] Offloading surface/device: [email or web address] Recommended Referrals/Tests: buttocks need assessment by Dr Nagel for possible STD Discharge Recommendations for dressings: continue as above noted
[2020-11-18 20:10] VITALS: BP 140/81
[2020-11-18] MEDS: FAMOTIDINE 20 MG TABLET. PO SCH (20:54)
[2020-11-18] MEDS: ATORVASTATIN CALCIUM 10 MG TABLET. PO SCH (20:55)
[2020-11-18] MEDS: risperiDONE 1 MG TABLET. PO SCH (20:55)
[2020-11-18 23:30] VITALS: BP 121/68
[2020-11-19 03:47] VITALS: BP 140/75
[2020-11-19] MEDS: CALCIUM CARBONATE 500 MG TABLET PO SCH ×5 (04:00→16:00)
[2020-11-19] MEDS: POLYVINYL ALCOHOL 1.4% OPHTH SOLUTION 15ML BOTTLE. OU SCH ×6 (04:00→20:00)
[2020-11-19] MEDS: HEPARIN for SUB-Q USE 5,000 UNIT/ML VIAL. SQ SCH ×3 (05:10→22:03)
[2020-11-19] MEDS: ACETAMINOPHEN 325 MG TABLET. PO SCH ×3 (05:10→14:30)
[2020-11-19] MEDS: LEVOTHYROXINE 112 MCG TABLET PO SCH (05:10)
[2020-11-19 05:45] LABS: ALBUMIN 1.5 g/dL (3.4-5.0); CALCIUM 9.2 mg/dL (8.5-10.1); CREATININE 3.6 mg/dL (0.6-1.0); GFR 15.7; PHOSPHORUS 5.2 mg/dL (2.6-4.7)
[2020-11-19] MEDS: IV DEXTROSE 5 %-0.45 % NACL 1,000 ML IV SCH (05:49)
[2020-11-19 07:00] VITALS: BP 133/101
[2020-11-19] MEDS: INSULIN LISPRO 300 UNITS/3 ML VIAL. SQ SCH ×3 (08:00→17:00)
[2020-11-19] MEDS: DIPHENOXYLATE/ATROPINE TABLET. PO SCH ×2 (09:00→14:00)
[2020-11-19] MEDS: GABAPENTIN 100 MG CAPSULE. PO SCH ×3 (09:04→22:03)
[2020-11-19] MEDS: DICYCLOMINE HCL 10 MG CAPSULE PO SCH ×3 (09:05→22:02)
[2020-11-19] MEDS: ASPIRIN CHEWABLE 81 MG TABLET. PO SCH (09:05)
[2020-11-19] MEDS: VITAMIN B COMPLEX TABLET. PO SCH (09:05)
[2020-11-19] MEDS: rOPINIRole 1 MG TABLET. PO SCH (09:05)
[2020-11-19] MEDS: METOPROLOL SUCC 24HR ER 100 MG TAB.ER.24H. PO SCH (09:06)
[2020-11-19] MEDS: MULTIVITAMIN with MINERAL TABLET. PO SCH (09:06)
[2020-11-19] MEDS: CETIRIZINE HCL 10 MG TABLET. PO SCH (09:06)
[2020-11-19] MEDS: MAGNESIUM OXIDE 400 MG TABLET PO SCH (09:06)
[2020-11-19] MEDS: FOLIC ACID 1 MG TABLET. PO SCH (09:06)
[2020-11-19] MEDS: cloNIDine HCL 0.2 MG TABLET PO SCH ×3 (09:06→22:03)
[2020-11-19] MEDS: buPROPion XL 150 MG TAB.ER.24H. PO SCH (09:06)
[2020-11-19] MEDS: LACTOBACILLUS RHAMNOSUS GG 1 CAPSULE. PO SCH ×2 (09:08→22:02)
--- NOTE | 2020-11-19 10:06 | PDOC ---
DATE OF SERVICE DATE: 11/19/20 TIME: 10:05 SUBJECTIVE ROS Stable OBJECTIVE Vital Signs Vital Signs Date Time Temp Pulse Resp B/P (MAP) Pulse Ox O2 Delivery O2 Flow Rate FiO2 11/19/20 09:06 92 133/101 11/19/20 08:00 Nasal Cannula 15.0 11/19/20 07:00 97.8 18 94 97.8 I & 0 Intake and Output 11/19/20 07:00 Intake Total 1480 ml Output Total 1400 ml Balance 80 ml Intake Oral 580 ml IV Total 900 ml Output Urine Total 1400 ml PHYSICAL EXAM Physical Exam General Appearance: no apparent distress HEEN OM moist Skin: no rash Respiratory: decreased breath sounds Heart: S1S2 Abdomen: soft, obese bowel sounds present Genitourinary: Hutchins + Extremities: no edema DIAGNOSIS/ASSESSMENT Assessment & Plan JACKIE- Suspect ATN- no improvement , UA No Micr hematuria , will ordere Renal Bx Supportive care , strict I/O ,avoid nephrotoxins, Anemia - Hgb dropping, postmenopausal bleeding , Gynec following Proteinuria- Nephrotic, No Micr hematuria , No WBC's or cast CKD stage 2/3 CHF compensated / CM with EF 45% COVID Positive Acute hypoxemic hypercapnic respiratory failure- extubated Blood cultures positive AICD in UTI COMMENT/RELEVANT DATA Meds Current Medications Medications (Trade) Dose Ordered Sig/Eber Start Time Stop Time Status Last Admin Dose Admin Acetaminophen (Tylenol Supp) 650 mg PRN Q6HRS PRN 11/02/20 00:00 11/02/20 07:27 650 MG Acetaminophen (Tylenol) 650 mg Q6HRS 10/31/20 12:00 11/18/20 08:45 650 MG Albuterol Sulfate (Ventolin Hfa) 1 puff PRN Q6HRS PRN 11/04/20 13:45 11/04/20 13:50 1 PUFF Albuterol Sulfate (Ventolin Neb Soln) 2.5 mg PRN Q6HRS PRN 11/03/20 06:00 Albuterol/ Ipratropium (Duoneb) 3 ml PRN Q4HRS PRN 11/02/20 07:00 11/02/20 07:03 DC Amino Acids/ Glycerin/ Electrolytes 1,000 ml @ 100 mls/hr Q10H 11/01/20 13:30 11/09/20 14:40 DC 11/09/20 08:28 100 MLS/HR Amoxicillin/ Clavulanate Potassium (Augmentin 500/ 125mg) 1 tab BID 11/07/20 10:00 11/08/20 10:45 DC 11/08/20 09:14 1 TAB Aspirin (Aspirin Chewable) 81 mg [id number] 10/31/20 08:00 11/19/20 09:05 81 MG Atorvastatin Calcium (Lipitor) 10 mg HS 10/31/20 21:00 11/18/20 20:55 10 MG Atropine Sulfate (ATROPINE 0.5mg SYRINGE) 0.5 mg PRN Q5MIN PRN 11/03/20 12:00 11/13/20 08:16 DC Budesonide (Pulmicort) 0.5 mg RTBID 10/31/20 20:00 11/01/20 13:52 DC Bupropion HCl (Wellbutrin Xl) 150 mg DAILY 10/31/20 12:00 11/19/20 09:06 150 MG Calcium Carbonate/ Glycine (Oscal) 500 mg Q4HRS 10/31/20 12:00 11/19/20 09:06 500 MG Carvedilol (Coreg) 12.5 mg BIDWMEALS 10/31/20 17:00 11/03/20 11:10 DC 11/01/20 08:43 12.5 MG Cetirizine HCl (ZyrTEC) 10 mg DAILY 11/01/20 09:00 11/19/20 09:06 10 MG Clonazepam (KlonoPIN) 0.5 mg BID 10/31/20 12:00 11/13/20 13:12 DC 11/13/20 09:03 0.5 MG Clonidine HCl (Catapres) 0.2 mg TID 10/31/20 12:00 11/19/20 09:06 0.2 MG Darbepoetin Nick (ARANESP for DIALYSIS PTS) 60 mcg WEEKLYHS 11/17/20 21:00 11/17/20 20:46 60 MCG Dexamethasone Sodium Phosphate (Decadron) 6 mg DAILY 11/05/20 09:00 11/11/20 10:17 DC 11/11/20 09:15 6 MG Dexmedetomidine HCl 400 mcg/ Sodium Chloride 100 ml @ 0 mls/hr CONT PRN 11/03/20 12:00 11/13/20 08:16 DC 11/04/20 05:42 22.1 MLS/HR Dextrose (Dextrose 50%-Water Syringe) 25 gm 1X ONCE 11/10/20 06:30 11/10/20 06:31 DC 11/10/20 07:42 25 GM Dextrose/Sodium Chloride 1,000 ml @ 75 mls/hr [id number] 11/13/20 11:15 11/19/20 05:49 75 MLS/HR Dicyclomine HCl (Bentyl) 20 mg TID 10/31/20 14:00 11/19/20 09:05 20 MG Diphenoxylate HCl/ Atropine (Lomotil) 1 tab TID 10/31/20 14:00 11/18/20 20:54 1 TAB Doxycycline Hyclate (Vibra-Tab) 100 mg BID 11/05/20 09:00 11/05/20 09:43 DC Enoxaparin Sodium (Lovenox 120mg Syringe) 110 mg 1X ONCE 10/30/20 06:15 10/30/20 06:16 DC 10/30/20 06:27 110 MG Etomidate (Amidate) 20 mg STK-MED ONCE 10/30/20 10:43 10/30/20 10:43 DC Famotidine (Pepcid) 20 mg HS 10/31/20 21:00 11/18/20 20:54 20 MG Fentanyl Citrate (Fentanyl 2ml Vial) 50 mcg PRN Q2HR PRN 10/31/20 07:45 10/31/20 20:08 50 MCG Folic Acid (Folic Acid) 0.5 mg DAILY 10/31/20 12:00 11/19/20 09:06 0.5 MG Furosemide (Lasix) 40 mg DAILY 11/03/20 12:00 11/06/20 11:34 DC 11/05/20 10:27 40 MG Gabapentin (Neurontin) 100 mg TID 10/31/20 14:00 11/19/20 09:04 100 MG Glycerin/ Hypromellose/ Polyethylene (Artificial Tears) 2 drop Q4HRS 10/31/20 16:00 11/19/20 09:04 2 DROP Guaifenesin (Robitussin) 200 mg PRN Q4HRS PRN 10/31/20 12:45 11/18/20 08:43 200 MG Haloperidol Lactate (Haldol Inj) 5 mg PRN Q6HRS PRN 11/13/20 13:15 Heparin Sodium (Porcine) (Heparin Sodium) 5,000 unit Q8HRS 10/30/20 22:00 11/19/20 05:10 5,000 UNIT Ibuprofen (Motrin) 400 mg PRN Q6HRS PRN 10/31/20 11:15 11/14/20 20:11 DC Insulin Human Lispro (HumaLOG) 10 units 1X ONCE 11/09/20 15:00 11/09/20 14:56 DC Insulin Human Regular (HumuLIN R VIAL) 10 unit 1X ONCE 11/10/20 06:30 11/10/20 06:31 DC 11/10/20 07:43 10 UNIT Labetalol HCl (Normodyne Iv Push) 20 mg PRN Q2HR PRN 11/02/20 11:30 11/12/20 05:24 20 MG Lactobacillus Rhamnosus (Culturelle) 1 cap BID 10/31/20 12:00 11/19/20 09:08 1 CAP Levothyroxine Sodium (Synthroid) 112 mcg DAILY06 11/01/20 09:00 11/19/20 05:10 112 MCG Loperamide HCl (Imodium) 2 mg PRN DAILY PRN 10/31/20 11:15 11/07/20 09:53 2 MG Lorazepam (Ativan Inj) 0.5 mg PRN Q4HRS PRN 11/10/20 09:15 11/13/20 13:12 DC 11/12/20 03:55 0.5 MG Lorazepam (Ativan) 0.5 mg PRN Q8HRS PRN 10/31/20 11:15 11/10/20 14:03 0.5 MG Magnesium Oxide (Magnesium Oxide) 400 mg DAILY 10/31/20 12:00 11/19/20 09:06 400 MG Metformin HCl (Glucophage) 250 mg BIDWMEALS 10/31/20 17:00 11/08/20 08:58 DC 11/07/20 17:25 250 MG Metoprolol Succinate (Toprol Xl) 100 mg DAILY 11/12/20 09:00 11/19/20 09:06 100 MG Metoprolol Tartrate (Lopressor Vial) 5 mg PRN Q6HRS PRN 11/11/20 16:15 Midazolam HCl 100 mg/Sodium Chloride 100 ml @ 0 mls/hr ONCE ONCE 10/30/20 06:45 10/30/20 06:46 DC 10/30/20 07:10 1 MLS/HR Multivitamins (Thera M Plus) 1 tab DAILY 10/31/20 12:30 11/19/20 09:06 1 TAB Non-Formulary Medication (Fluticasone/ Salmeterol (Advair 500-50 Diskus)) 1 puff BID 10/31/20 21:00 UNV Non-Formulary Medication (Peg 400/ Hypromellose/ Glycerin (Artificial Tears Drops)) 1 drop QID 10/31/20 13:00 UNV Non-Formulary Medication (Polyvinyl Alcohol (Tears Again)) 2 drop Q4HRS 10/31/20 12:00 UNV Non-Formulary Medication (Risperidone ) 0.5 mg DAILY 11/01/20 09:00 UNV Norepinephrine Bitartrate 8 mg/ Dextrose 258 ml @ 17.202 mls/ hr CONT PRN 11/03/20 13:45 11/11/20 10:17 DC 11/04/20 05:54 8.3 MLS/HR Nystatin (Nystop) 1 luis PRN BID PRN 10/31/20 11:15 11/14/20 08:19 1 LUIS Ondansetron HCl (Zofran Odt) 4 mg PRN Q8HRS PRN 10/31/20 12:30 Ondansetron HCl (Zofran) 4 mg PRN Q8HRS PRN 10/30/20 06:00 10/31/20 05:59 DC Piperacillin Sod/ Tazobactam Sod (Zosyn Per Pharmacy) 1 each PRN DAILY PRN 10/30/20 06:00 11/06/20 11:03 DC Piperacillin Sod/ Tazobactam Sod 3.375 gm/Sodium Chloride 50 ml @ 100 mls/hr Q6HRS 11/05/20 12:00 11/06/20 09:15 DC 11/06/20 00:04 100 MLS/HR Piperacillin Sod/ Tazobactam Sod 4.5 gm/Sodium Chloride 100 ml @ 200 mls/hr Q6HRS 10/30/20 12:00 11/04/20 09:59 DC 11/04/20 05:10 200 MLS/HR Polyethylene Glycol (miraLAX PACKET) 17 gm PRN DAILY PRN 11/09/20 10:30 Potassium Bicarbonate (Potassium Effervescent Tablet) 80 meq 1X ONCE 10/31/20 09:45 10/31/20 09:46 DC 10/31/20 13:20 80 MEQ Potassium Chloride (Klor-Con) 10 meq [id number] 11/02/20 08:00 11/08/20 14:35 DC 11/07/20 09:08 10 MEQ Propofol 100 ml @ 3.408 mls/ hr CONT PRN 10/30/20 09:00 11/13/20 08:16 DC 10/31/20 12:07 3.408 MLS/HR Risperidone (RisperDAL) 1 mg QHS 10/31/20 21:00 11/18/20 20:55 1 MG Ropinirole HCl (Requip) 2 mg DAILY 11/01/20 09:00 11/19/20 09:05 2 MG Simethicone (Gas-X) 160 mg PRN Q2HR PRN 10/31/20 12:00 11/06/20 17:23 160 MG Sodium Bicarbonate 50 meq/Sodium Chloride 1,050 ml @ 100 mls/hr [id number] 11/09/20 16:00 11/13/20 11:10 DC 11/13/20 06:20 100 MLS/HR Sodium Polystyrene Sulfonate (Kayexalate) 15 gm 1X ONCE 11/10/20 19:00 11/10/20 19:01 DC 11/10/20 18:11 15 GM Sodium Bicarbonate (Sodium Bicarb Adult 8.4% Syr) 50 meq 1X ONCE 11/10/20 06:30 11/10/20 06:31 DC 11/10/20 07:41 50 MEQ Sodium Chloride 1,000 ml @ 125 mls/hr Q8H 11/06/20 16:30 11/07/20 10:52 DC 11/06/20 23:41 125 MLS/HR Succinylcholine Chloride (Anectine) 200 mg STK-MED ONCE 10/30/20 10:43 10/30/20 10:44 DC Tramadol HCl (Ultram) 50 mg PRN Q6HRS PRN 10/31/20 11:15 Vancomycin HCl (Vanco Per Pharmacy) 1 each PRN DAILY PRN 10/30/20 11:00 10/31/20 11:11 DC 10/31/20 09:51 1 EACH Vancomycin HCl (Vancomycin Trough Level) 1 each 1X ONCE 11/01/20 12:30 10/31/20 13:36 DC Vancomycin HCl 1.75 gm/Sodium Chloride 500 ml @ 250 mls/hr Q24H 10/31/20 13:00 10/31/20 11:11 DC Vitamin B Complex (Dustin B) 1 tab DAILY 10/31/20 12:00 11/19/20 09:05 1 TAB Ziprasidone (Geodon Im) 10 mg PRN QHS PRN 11/09/20 22:45 Lab Laboratory Tests Test 11/18/20 10:20 11/18/20 21:02 11/19/20 05:00 11/19/20 07:05 Glucose (Fingerstick) 126 mg/dL (70-99) 118 mg/dL (70-99) 113 mg/dL (70-99) Sodium Level 141 mmol/L (136-145) Potassium Level 4.0 mmol/L (3.5-5.1) Chloride Level 104 mmol/L (98-107) Carbon Dioxide Level 35 mmol/L (21-32) Anion Gap 2 (6-14) Blood Urea Nitrogen 18 mg/dL (7-20) Creatinine 3.6 mg/dL (0.6-1.0) Estimated GFR (Cockcroft-Gault) 15.7 Glucose Level 98 mg/dL (70-99) Calcium Level 9.2 mg/dL (8.5-10.1) Phosphorus Level 5.2 mg/dL (2.6-4.7) Albumin 1.5 g/dL (3.4-5.0) Results All relevant outside records, renal labs, imaging studies, telemetry/EKG's were reviewed. Justicifation of Admission Dx: Justifications for Admission: Justification of Admission Dx: Yes SARAHI SORENSEN MD Nov 19, 2020 10:06
--- NOTE | 2020-11-19 10:46 | PDOC ---
PULMONARY PROGRESS NOTES DATE: 11/19/20 TIME: 10:44 Subjective on 3 liters N/C up to chair, awake and alert today no overnight events Vitals Vital Signs Date Time Temp Pulse Resp B/P (MAP) Pulse Ox O2 Delivery O2 Flow Rate FiO2 11/19/20 09:06 92 133/101 11/19/20 08:00 Nasal Cannula 15.0 11/19/20 07:00 97.8 18 94 97.8 Comments visual exam done due to COVID-19 pandemic RRR Awake and alert N/C No edema ROS: No Nausea, No Chest Pain, No Abdominal Pain, No Increase Cough General: Alert Lungs: Clear Cardiovascular: S1, S2 Labs Laboratory Tests Test 11/17/20 11:57 11/17/20 17:31 11/17/20 21:23 11/17/20 21:30 Glucose (Fingerstick) 139 mg/dL (70-99) 124 mg/dL (70-99) 101 mg/dL (70-99) Urine Collection Type Unknown Urine Color Yellow Urine Clarity Clear Urine pH 7.5 (<5.0-8.0) Urine Specific [place] 1.010 (1.000-1.030) Urine Protein 100 mg/dL (NEG-TRACE) Urine Glucose (UA) Negative mg/dL (NEG) Urine Ketones (Stick) Negative mg/dL (NEG) Urine Blood Trace (NEG) Urine Nitrite Negative (NEG) Urine Bilirubin Negative (NEG) Urine Urobilinogen Dipstick 0.2 mg/dL (0.2 mg/dL) Urine Leukocyte Esterase Negative (NEG) Urine RBC Occ /HPF (0-2) Urine WBC Occ /HPF (0-4) Urine Bacteria 0 /HPF (0-FEW) Urine Mucus Slight /LPF Urine Random Creatinine 32.0 mg/dL (Not Establ.) Urine Random Total Protein 173.4 mg/dL (Not Establ.) Urine Protein/Creatinine Ratio 5419 mg/g (0-200) Test 11/18/20 05:00 11/18/20 06:13 11/18/20 10:20 11/18/20 21:02 White Blood Count 7.6 x10^3/uL (4.0-11.0) Red Blood Count 2.69 x10^6/uL (3.50-5.40) Hemoglobin 8.0 g/dL (12.0-15.5) Hematocrit 25.1 % (36.0-47.0) Mean Corpuscular Volume 93 fL (79-100) Mean Corpuscular Hemoglobin 30 pg (25-35) Mean Corpuscular Hemoglobin Concent 32 g/dL (31-37) Red Cell Distribution Width 16.4 % (11.5-14.5) Platelet Count 168 x10^3/uL (140-400) Neutrophils (%) (Auto) 72 % (31-73) Lymphocytes (%) (Auto) 16 % (24-48) Monocytes (%) (Auto) 9 % (0-9) Eosinophils (%) (Auto) 2 % (0-3) Basophils (%) (Auto) 1 % (0-3) Neutrophils # (Auto) 5.4 x10^3/uL (1.8-7.7) Lymphocytes # (Auto) 1.2 x10^3/uL (1.0-4.8) Monocytes # (Auto) 0.7 x10^3/uL (0.0-1.1) Eosinophils # (Auto) 0.2 x10^3/uL (0.0-0.7) Basophils # (Auto) 0.1 x10^3/uL (0.0-0.2) Sodium Level 140 mmol/L (136-145) Potassium Level 4.3 mmol/L (3.5-5.1) Chloride Level 102 mmol/L (98-107) Carbon Dioxide Level 34 mmol/L (21-32) Anion Gap 4 (6-14) Blood Urea Nitrogen 19 mg/dL (7-20) Creatinine 3.5 mg/dL (0.6-1.0) Estimated GFR (Cockcroft-Gault) 16.2 BUN/Creatinine Ratio 5 (6-20) Glucose Level 98 mg/dL (70-99) Calcium Level 9.2 mg/dL (8.5-10.1) Phosphorus Level 4.8 mg/dL (2.6-4.7) Total Bilirubin 0.3 mg/dL (0.2-1.0) Aspartate Amino Transf (AST/SGOT) 49 U/L (15-37) Alanine Aminotransferase (ALT/SGPT) 24 U/L (14-59) Alkaline Phosphatase 101 U/L (46-116) Total Protein 6.5 g/dL (6.4-8.2) Albumin 1.7 g/dL (3.4-5.0) Albumin/Globulin Ratio 0.4 (1.0-1.7) Glucose (Fingerstick) 114 mg/dL (70-99) 126 mg/dL (70-99) 118 mg/dL (70-99) Test 11/19/20 05:00 11/19/20 07:05 Sodium Level 141 mmol/L (136-145) Potassium Level 4.0 mmol/L (3.5-5.1) Chloride Level 104 mmol/L (98-107) Carbon Dioxide Level 35 mmol/L (21-32) Anion Gap 2 (6-14) Blood Urea Nitrogen 18 mg/dL (7-20) Creatinine 3.6 mg/dL (0.6-1.0) Estimated GFR (Cockcroft-Gault) 15.7 Glucose Level 98 mg/dL (70-99) Calcium Level 9.2 mg/dL (8.5-10.1) Phosphorus Level 5.2 mg/dL (2.6-4.7) Albumin 1.5 g/dL (3.4-5.0) Glucose (Fingerstick) 113 mg/dL (70-99) Laboratory Tests Test 11/18/20 21:02 11/19/20 05:00 11/19/20 07:05 Glucose (Fingerstick) 118 mg/dL (70-99) 113 mg/dL (70-99) Sodium Level 141 mmol/L (136-145) Potassium Level 4.0 mmol/L (3.5-5.1) Chloride Level 104 mmol/L (98-107) Carbon Dioxide Level 35 mmol/L (21-32) Anion Gap 2 (6-14) Blood Urea Nitrogen 18 mg/dL (7-20) Creatinine 3.6 mg/dL (0.6-1.0) Estimated GFR (Cockcroft-Gault) 15.7 Glucose Level 98 mg/dL (70-99) Calcium Level 9.2 mg/dL (8.5-10.1) Phosphorus Level 5.2 mg/dL (2.6-4.7) Albumin 1.5 g/dL (3.4-5.0) Medications Active Scripts Medications Dose Route/Sig Max Daily Dose Days Date Category Dose Instructions Lomotil Tablet (Diphenoxylate Hcl/Atropine) 1 Each Tablet 1 Tab PO TID 3 10/28/20 Rx Dicyclomine Hcl 20 Mg Tablet 1 Tab PO TID 10 10/28/20 Rx Zithromax (Azithromycin) 250 Mg Tablet 250 Mg PO DIRECTED 10/28/20 Rx Take 2 PO x 1 days Then take 1 PO q 24 hour for the next 4 days Doxycycline Hyclate 100 Mg Tablet 1 Tab PO BID 3 12/04/19 Rx Culturelle (Lactobacillus Rhamnosus Gg) 1 Each Cap.sprink 1 Cap PO BID 14 12/04/19 Rx Zofran (Ondansetron Hcl) 4 Mg Tablet 4 Mg PO Q8HRS PRN 12/02/19 Reported Tramadol Hcl 50 Mg Tablet 50 Mg PO Q6HRS PRN 12/02/19 Reported Tears Again (Polyvinyl Alcohol) 15 Ml Drops 2 Drop EACHEYE Q4HRS 30 12/02/19 Reported Polyvinyl Alcohol 15 Ml Drops 2 Drop EACHEYE Q4HRS 30 12/02/19 Reported Ropinirole Hcl 1 Mg Tablet 1 Mg PO BID 12/02/19 Reported Pantoprazole Sodium (Pantoprazole Sodium) 40 Mg Tablet.dr 40 Mg PO DAILYAC 12/02/19 Reported B-Complex Plus Vitamin C (B Complex With Vitamin C) 1 Each Tablet 1 Each PO DAILY 12/02/19 Reported Magnesium Oxide 400 Mg Tablet 400 Mg PO DAILY 12/02/19 Reported Loratadine 10 Mg Tablet 10 Mg PO DAILY 12/02/19 Reported Ketotifen Fumarate 5 Ml Drops 1 Drop EACHEYE BID 12/02/19 Reported Humalog (Insulin Lispro) 100 Unit/1 Ml Vial 100 Unit SQ BIDWMEALS 12/02/19 Reported 70 - 150 0 units 151 - 200 0 units 201 - 250 2 units 251 - 300 3 units 301 - 349 4 units if FSBS is under 70 or 350 and over call MD [guaifenesin Syrup] 10 Ml PO Q4HRS PRN 12/02/19 Reported Mucinex (Guaifenesin) 600 Mg Tablet.er 600 Mg PO BID 12/02/19 Reported Coreg (Carvedilol) 25 Mg Tablet 50 Mg PO BIDWMEALS 12/02/19 Reported Peridex (Chlorhexidine Gluconate) 15 Ml Mouthwash 15 Ml PO BID 30 12/02/19 Reported Swish in mouth for 30 seconds then spit out Calcium Carbonate 500 Mg Tablet 500 Mg PO Q4HRS 12/02/19 Reported Atorvastatin Calcium 10 Mg Tablet 10 Mg PO HS 12/02/19 Reported Acetaminophen 325 Mg Tablet 650 Mg PO Q6HRS 12/02/19 Reported Metformin Hcl 500 Mg Tablet 250 Mg PO BIDWMEALS 12/03/18 Reported Imodium A-D (Loperamide HCl) 2 Mg Capsule 2 Mg PO DAILY PRN 12/03/18 Reported Risperidone 0.5 Mg Tablet 0.5 Mg PO DAILY 03/21/18 Reported Risperidone 1 Mg Tablet 1 Tab PO QHS 03/21/18 Reported Levothyroxine Sodium 112 Mcg Tablet 1 Tab PO DAILY 03/21/18 Reported Advair 500-50 Diskus (Fluticasone/Salmeterol) 1 Each Disk.w.dev 1 Puff IH BID 03/21/18 Reported Nystatin 15 Gm Powder 1 Scott TP PRN BID PRN 03/21/18 Reported Clonazepam (Clonazepam) 0.5 Mg Tablet 1 Tab PO BID 09/30/16 Reported Montelukast Sodium Tablet (Montelukast Sodium) 10 Mg Tablet 1 Tab PO HS 02/18/16 Reported Gas-X (Simethicone) 80 Mg Tab.chew 160 Mg PO Q2HR PRN 02/18/16 Reported Gabapentin (Gabapentin) 100 Mg Capsule 100 Mg PO TID 02/18/[address] chest 1. Cardiomegaly. 2. Increased consolidative opacities in the left lung and scattered groundglass opacities in the right lung are suspicious for pneumonia. Some of the opacities in the left upper lobe are chronic scarring or atelectasis present on prior exam. 3. New trace bilateral pleural effusions. No large or drainable pleural effusion. Electronically signed by: Renetta Edouard MD (11/04/2020 4:07 PM) [id number] U/S IMPRESSION: 1. Thickened endometrium, may relate to endometrial hyperplasia although endometrial carcinoma is possible. Recommend further clinical evaluation and biopsy if indicated. 2. Several uterine masses, likely fibroids. Impression . IMPRESSION: 1. Acute on chronic hypoxemic hypercapnic respiratory failure, extubated .10/31, Has been restless on/off. received ativan night of 11/09/ increase hypoxia/ on BIPAP/ 60%, now more awake, off BIPAP 2. Abnormal x-ray compatible with acute on chronic congestive heart failure,/ COVID-19. 3. Abnormal ct chest c/w COVID-19 PNEUMONIA/ ? BACTERIAL PNA 4. COVID-19 5. Acute metabolic toxic encephalopathy. 6. History of status post pacemaker defibrillator implantation. 7. Restless legs syndrome. 8. Schizoaffective disorder. 9. Acute on chronic systolic heart failure. 9. Non-ST segment elevation myocardial infarction. 10. Cardiomyopathy, ejection fraction on 11/2019 revealed EF of 45%. 11. Atrial fibrillation with V paced, currently underlying sinus rhythm. 12. Hyperlipidemia. 13. Hypothyroidism. 14. Fever, rule out bacteremia. 15. Sepsis.resolved 16. JACKIE Plan . PLAN: Supplemental oxygen to keep sats above 92%, on 3 liters N/C, stable from a respiratory standpoint Follow OB recs 2/2/ vaginal bleeding and abnormal Scheduled for D&C on 11/20/20 at 10:30 am. Follow cardiology recs--- Plan outpatient ischemic evaluation, ECHO when kaitlin jo ann from COVID-19 Follow nephrology recs-- worsening renal function-- monitor PT/OT/ST--on no dysphasia 1 diet per speech Hypertension Per PCP DVT/GI PPX social work for D/C planning-- SNF D/W RN we sill sign off at this time , please call with any questions or concerns MERRY STOKES MD Nov 19, 2020 10:46
[2020-11-19 10:58] VITALS: BP 116/67
--- NOTE | 2020-11-19 11:00 | PDOC ---
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 The pt is a little more lucid this am, discussed the w/u of PMB with her. Objective: Vital Signs: Vital Signs Date Time Temp Pulse Resp B/P (MAP) Pulse Ox O2 Delivery O2 Flow Rate FiO2 11/18/20 07:00 97.6 98 20 172/105 (127) 98 Nasal Cannula 5.0 97.6 Vital Signs Date Time Temp Pulse Resp B/P (MAP) Pulse Ox O2 Delivery O2 Flow Rate FiO2 11/19/20 10:58 98.0 95 20 116/67 (83) 92 Nasal Cannula 3.0 98.0 Labs: Laboratory Tests Test 11/18/20 21:02 11/19/20 05:00 11/19/20 07:05 Glucose (Fingerstick) 118 mg/dL (70-99) H 113 mg/dL (70-99) H Sodium Level 141 mmol/L (136-145) Potassium Level 4.0 mmol/L (3.5-5.1) Chloride Level 104 mmol/L (98-107) Carbon Dioxide Level 35 mmol/L (21-32) H Anion Gap 2 (6-14) L Blood Urea Nitrogen 18 mg/dL (7-20) Creatinine 3.6 mg/dL (0.6-1.0) H Estimated GFR (Cockcroft-Gault) 15.7 Glucose Level 98 mg/dL (70-99) Calcium Level 9.2 mg/dL (8.5-10.1) Phosphorus Level 5.2 mg/dL (2.6-4.7) H Albumin 1.5 g/dL (3.4-5.0) L Laboratory Tests 11/19/20 05:00 Laboratory Tests 11/19/20 05:00 Physical Exam: GENERAL: Weak ill and confused HEENT: Both pupils are round and reacting. No conjunctival lesion. No lesion in the mouth. NECK: Supple, no JVP, no lymphadenopathy. LUNGS: Clear. HEART: S1, S2 regular. ABDOMEN: Soft bowel sounds present nontender nondistended Fecal tube present EXTREMITIES: No edema or cyanosis. SKIN: Unremarkable. NEUROLOGIC: Lethargic Assessment & Plan: A/P 60y F admitted for altered mental status 1.) Postmenopausal bleeding Thickened endometrium (10 mm) on pelvic u/s. Eber eduled for H/S, D&C on 11/20/20 at 10:30 am. NPO at midnight. Covid (re-)testing performed for surgery, did not obtain rapid yesterday, so advised to get this am. 2.) COVID Positive 10/30/20 3.) Blood cultures positive 4.) Sepsis - resolved 5.) Acute hypoxemic hypercapnic respiratory failure extubated 10/31 6.) Acute on chronic systolic heart failure 7.) H/o DC 8.) Cardiomyopathy - EF of 45%. 9.) A-fib - h/o pacemaker 10.) UTI 11.) Anemia Hgb 9.6 12.) Thrombocytopenia resolved, last 227 13.) YULIYA Cr 2.7, nephrology consulted 14.) Acute metabolic toxic encephalopathy 15.) Schizoaffective disorder 16.) Will cont to follow ASHLYN ROTH MD Nov 19, 2020 11:00
--- NOTE | 2020-11-19 14:32 | NUR ---
SS following up with discharge planning. SS reviewed pt chart and discussed with pt RN. Pt is currently requiring oxygen at three liters nasal canula. COVID19 positive. PT/OT recommending residential unit. Pt is LT resident from [facility], ; fax [phone]. Pt scheduled for D&C and kidney biopsy tomorrow, 11/20/2020. SS will continue to follow for discharge planning.
[2020-11-19 15:22] VITALS: BP 112/63
--- NOTE | 2020-11-19 15:49 | PDOC ---
[employer] PROGRESS NOTE Date of Service DOS: DATE: 11/19/20 TIME: 15:45 Chief Complaint Chief Complaint impression COVID Positive Acute kidney injury with possible ATN Acute hypoxemic hypercapnic respiratory failure Acute on chronic heart failure Blood cultures positive Heart failure PMH AK AICD in UTI Hypocalcemia Hypertriglyceridemia Anemia Low platelets Hypoglycemia (43) Elevated Cr Hyperkalemia Vaginal bleeding concerning for endometrial CA Creatinine continues to worsen despite ongoing IV fluids and good urine output. Cannot rule out element of interstitial nephritis. nephrology consult ASO TITER CRP History of Present Illness History of Present Illness 11/19/2020 Patient seen and evaluated. Breathing on 3 L nasal cannula. She does complain of some itching to her groin. On evaluation there is intertrigo. Can be treated by keeping affected area clean and dry, using topical antifungal powder to reduce friction and help soothe skin recommendation. She will have a kidney biopsy to evaluate worsening kidney function. Discussed with RN. 11/18/2020 Patient seen and evaluated. Charts and labs reviewed. Patient currently breathing on 5 L nasal cannula. Discussed with RN, patient is having worsening kidney function despite IV fluids. Avoid nephrotoxins, and follow-up nephrology recommendations. 11/17/2020 Patient seen exam Chart reviewed She appears weak, confused Acute kidney injury with possible ATN 10/31 Patient seen and examined in ICU Patient sedated with propofol Possible COVID - pending under investigation Discussed with RN Chart reviewed Blood culture positive Vent settings as follows AC/18/450/40 11/01 Patient is COVID positive Patient seen and examined in ICU Patient sedated with propofol Discussed with RN Discussed with [employer] Consultant Chart reviewed Blood cultures are positive 11/02 Patient is COVID positive Patient seen and examined in ICU Propofol IV Discussed with RN Chart Reviewed Blood cultures positive 11/03/2020 Patient resting w/ NAD on Bipap Patient is COVID positive Patient seen and examined in ICU Propofol IV Discussed with RN Chart Reviewed Blood cultures positive 11/04/2020 Patient seen and evaluated. Tachypneic, afebrile. Still breathing on BiPAP. Continue IV Zosyn, positive blood cultures most likely contaminant. Continue diuresis. She is on Levophed and Precedex. Still with some agitation. CT chest pending to evaluate possible thoracentesis. Total time spent 35 minutes, >50% time spent reviewing charts, reviewing labs, discussing with RN and public health social worker. 11/05/2020 Patient seen and evaluated. She is still intermittently requiring BiPAP. Afebrile, tachypneic, tachycardic. Sedated with Haldol. CT chest yesterday showing trace bilateral pleural effusion, no drainable fluid collection. Continue COVID-19 treatment with steroids and supportive care. 11/06/2020 Patient seen and evaluated, status post extubation 10/31. Afebrile, tach ycardic. She is breathing intermittently on BiPAP, currently on 2 L nasal cannula. States she is hungry, swallow eval pending. Continue steroids and antibiotics, per ID. Continue diuresis. 11/07/2020 Patient seen evaluate bedside. Status post extubation on 121. Rising creatinine of 3.3. Pending nephrology evaluation.> 50% time spent in patient chart, labs, and imaging review and in discussion with RN and SW 11/08/2020 Patient seen and examined bedside. No acute events overnight. Saturating 96% on 4 L nasal cannula during the day and tolerating 35% on BiPAP. Passed speech swallow study and is currently on a dysphagia diet. Augmentin discontinued today per ID.> 50% time spent in patient chart, labs, and imaging review and in discussion with RN and MADDIE 11/09/2020 No acute events overnight. Patient is afebrile. Patient seen and examined bedside. Is somewhat more confused and agitated today mainly due to incontinence to stool. Rectal tube has been removed Hutchins is intact. Will encourage thickened liquids of 240 cc every 6 hours mainly due to JACKIE and worsening potassium. Will defer the rest of the management to nephrology for improving renal function.> 50% time spent in patient chart, labs, and imaging review and in discussion with RN and MADDIE 11/10/2020 Patient given 2 mg IV Ativan last night and subsequently placed on BiPAP. Will change dose to 0.5 p.o. Ativan and see if we can wean off BiPAP and put back on nasal cannula. Patient's chart, labs, images were reviewed and discussed with RN 11/11/2020 No acute events overnight. Patient tolerated BiPAP at night. Currently saturating 94% on 5 L nasal cannula. Elevating potassium levels. Sodium bicarb started. Patient's chart, labs, images were reviewed and discussed with RN 11/12/2020 No acute events overnight. Patient's drowsy this morning but saturating 95% on 3 L nasal cannula. Cannulated patient had some vaginal bleeding and the heparin was held this morning. Discussion with the RN states that her Hutchins might have been tugged causing that episode of bleeding. However patient has not been bleeding this morning and Hutchins and rectal tube was not placed. Patient's chart, labs, images were reviewed and discussed with RN 11/13/2020 No acute events overnight. Patient continues to be drowsy but is following commands and able to make requests for the nurse. Patient saturating 98% on 3 L nasal cannula. Still has some vaginal bleeding around the Hutchins. Rectal tube will be removed today. Will discuss with nephrology for Hutchins removal. Consult gynecology for vaginal bleeding. Patient's chart, labs, images were reviewed and discussed with RN 11/14/20 Continues to be confused and lethargic. Patient is able to communicate. Vitals/I&O Vitals/I&O: Vital Signs Date Time Temp Pulse Resp B/P (MAP) Pulse Ox O2 Delivery O2 Flow Rate FiO2 11/19/20 15:22 98.2 100 20 112/63 (79) 94 Nasal Cannula 3.0 98.2 I & O 11/18/20 11/18/20 11/19/20 15:00 23:00 07:00 Intake Total 100 ml 480 ml 900 ml Output Total 400 ml 1000 ml Balance 100 ml 80 ml -100 ml Physical Exam Physical Exam: GENERAL: Weak ill and confused HEENT: Both pupils are round and reacting. No conjunctival lesion. No lesion in the mouth. NECK: Supple, no JVP, no lymphadenopathy. LUNGS: Clear. HEART: S1, S2 regular. ABDOMEN: Soft bowel sounds present nontender nondistended Fecal tube present EXTREMITIES: No edema or cyanosis. SKIN: Unremarkable. NEUROLOGIC: Lethargic General: mild distress, Other (Appears lethargic) Heart: Regular rate Lungs: Clear Abdomen: Normal bowel sounds Extremities: No clubbing Skin: No breakdown Labs Labs: Laboratory Tests Test 11/18/20 21:02 11/19/20 05:00 11/19/20 07:05 11/19/20 09:50 Glucose (Fingerstick) 118 mg/dL (70-99) 113 mg/dL (70-99) Sodium Level 141 mmol/L (136-145) Potassium Level 4.0 mmol/L (3.5-5.1) Chloride Level 104 mmol/L (98-107) Carbon Dioxide Level 35 mmol/L (21-32) Anion Gap 2 (6-14) Blood Urea Nitrogen 18 mg/dL (7-20) Creatinine 3.6 mg/dL (0.6-1.0) Estimated GFR (Cockcroft-Gault) 15.7 Glucose Level 98 mg/dL (70-99) Calcium Level 9.2 mg/dL (8.5-10.1) Phosphorus Level 5.2 mg/dL (2.6-4.7) Albumin 1.5 g/dL (3.4-5.0) SARS-CoV-2 Antigen (Rapid) Negative (NEGATIVE) Test 11/19/20 11:26 Glucose (Fingerstick) 163 mg/dL (70-99) Assessment and Plan Assessmemt and Plan Problems Medical Problems: (1) AMS (altered mental status) Status: Acute (2) Hypercapnia Status: Acute (3) Person under investigation for COVID-19 Status: Acute (4) Respiratory failure Status: Acute (5) UTI (urinary tract infection) Status: Acute Comment Review of Relevant I have reviewed the following items lucas (where applicable) has been applied. Justifications for Admission Other Justification STONEY TILLMAN MD Nov 19, 2020 15:49
[2020-11-19] MEDS ORDERED: DIPHENOXYLATE/ATROPINE TABLET. PO PRN (16:15)
[2020-11-19] MEDS ORDERED: ACETAMINOPHEN 325 MG TABLET. PO PRN (16:45)
[2020-11-19 19:30] VITALS: BP 130/78
[2020-11-19] MEDS: FAMOTIDINE 20 MG TABLET. PO SCH (22:01)
[2020-11-19] MEDS: ATORVASTATIN CALCIUM 10 MG TABLET. PO SCH (22:02)
[2020-11-19] MEDS: risperiDONE 1 MG TABLET. PO SCH (22:03)
[2020-11-19 23:10] VITALS: BP 169/84
[2020-11-20 02:15] VITALS: BP 189/97
[2020-11-20] MEDS: POLYVINYL ALCOHOL 1.4% OPHTH SOLUTION 15ML BOTTLE. OU SCH ×5 (04:00→16:00)
[2020-11-20] MEDS: HEPARIN for SUB-Q USE 5,000 UNIT/ML VIAL. SQ SCH ×3 (06:00→13:40)
[2020-11-20] MEDS: LEVOTHYROXINE 112 MCG TABLET PO SCH (06:28)
[2020-11-20 07:00] VITALS: BP 184/98
[2020-11-20] MEDS ORDERED: fentaNYL PF VIAL 100 MCG/2 ML VIAL IV PRN ×2 (07:00)
[2020-11-20] MEDS ORDERED: PROCHLORPERAZINE 10 MG/2 ML VIAL. IV PRN (07:00)
[2020-11-20] MEDS ORDERED: HYDROmorphone 2 MG/ML VIAL IV PRN (07:00)
[2020-11-20] MEDS ORDERED: IV RINGERS,LACTATED 1000ML 1,000 ML IV SCH (07:00)
[2020-11-20] MEDS ORDERED: MORPHINE SULFATE 2 MG/ML VIAL. IV PRN (07:00)
[2020-11-20] MEDS ORDERED: ONDANSETRON PF 4 MG/2 ML VIAL. IV PRN (07:00)
[2020-11-20] MEDS ORDERED: LIDOCAINE 1% PF 2 ML VIAL. ID PRN (07:00)
[2020-11-20 07:45] LABS: ALBUMIN 1.8 g/dL (3.4-5.0); CALCIUM 9.7 mg/dL (8.5-10.1); CREATININE 3.7 mg/dL (0.6-1.0); GFR 15.2; PHOSPHORUS 5.2 mg/dL (2.6-4.7); POTASSIUM 4.1 mmol/L (3.5-5.1)
[2020-11-20] MEDS: INSULIN LISPRO 300 UNITS/3 ML VIAL. SQ SCH ×3 (08:00→17:00)
[2020-11-20] MEDS ORDERED: CALCIUM CARBONATE 500 MG TABLET PO SCH (09:00)
[2020-11-20] MEDS ORDERED: PROPOFOL 10 MG/ML (20ML) VIAL. IV ONE (09:02)
[2020-11-20] MEDS ORDERED: ONDANSETRON PF 4 MG/2 ML VIAL. ONE (09:02)
[2020-11-20] MEDS ORDERED: DEXAMETHASONE SOD PHOS 4 MG/ML VIAL ONE (09:02)
[2020-11-20] MEDS ORDERED: LIDOCAINE 2% PF 5 ML VIAL. ONE (09:02)
--- NOTE | 2020-11-20 09:40 | SNU/HH DC ---
DISCHARGE ORDERS DISCHARGE INFORMATION: DISCHARGE DATE: Nov 20, 2020 FINAL DIAGNOSIS Problems Medical Problems: (1) AMS (altered mental status) Status: Acute (2) Hypercapnia Status: Acute (3) Person under investigation for COVID-19 Status: Acute (4) Respiratory failure Status: Acute (5) UTI (urinary tract infection) Status: Acute CONDITION ON DISCHARGE: Stable CODE STATUS: Code Status: Full [facility] SNF STAY <30 DAYS: No POST DISCHARGE ORDERS: ACTIVITY ORDERS: No restrictions WEIGHT BEARING STATUS: No restrictions DIET AFTER DISCHARGE: Cardiac WOUND/INCISION CARE: No wound care needed CHECKS AFTER DISCHARGE: CHECKS AFTER DISCHARGE: Check blood press - daily, Check blood sugar, ac/hs TREATMENT/EQUIPMENT ORDERS: ADAPTIVE EQUIPMENT NEEDED: None RESPIRATORY EQUIPMENT NEEDED: Oxygen, BiPAP DISCHARGE MEDICATIONS: Home Meds Active Scripts Diphenoxylate Hcl/Atropine (LOMOTIL TABLET) 1 Each Tablet, 1 TAB PO TID for diarrhea for 3 Days, #9 TAB Prov:MARY ELLEN FREEMAN MD 10/28/20 Dicyclomine Hcl (DICYCLOMINE HCL) 20 Mg Tablet, 1 TAB PO TID for diarrhea for 10 Days, #30 TAB 1 Refill Prov:MARY ELLEN FREEMAN MD 10/28/20 Azithromycin (ZITHROMAX) 250 Mg Tablet, 250 MG PO as directed for ANTI-BIOTIC, #6 TAB 0 Refills Take 2 PO x 1 days Then take 1 PO q 24 hour for the next 4 days Prov:MARY ELLEN FREEMAN MD 10/28/20 Doxycycline Hyclate (DOXYCYCLINE HYCLATE) 100 Mg Tablet, 1 TAB PO BID for COPD for 3 Days, #6 TAB Prov:CRISPIN SCHROEDER MD 12/04/19 Lactobacillus Rhamnosus Gg (CULTURELLE) 1 Each Cap.sprink, 1 CAP PO BID for COPD for 14 Days, #28 CAP Prov:CRISPIN SCHROEDER MD 12/04/19 Reported Medications Bupropion Hcl (WELLBUTRIN XL) 150 Mg Tab.er.24h, 150 MG PO DAILY for major depressive disorder, TAB.SR 10/31/20 Peg 400/Hypromellose/Glycerin (ARTIFICIAL TEARS DROPS) 15 Ml Drops, 1 DROP OS QID for irritation for 30 Days, #15 ML 0 Refills 10/31/20 Folic Acid (FOLIC ACID) 0.4 Mg Tablet, 0.4 MG PO DAILY for SUPPLEMENT, TAB 10/31/20 Ipratropium/Albuterol Sulfate (DUONEB 0.5-3(2.5) MG/3 ML) 3 Ml Ampul.neb, 3 ML NEB Q4HRS for sob, EACH 10/31/20 Clonidine Hcl (CLONIDINE HCL) 0.2 Mg Tablet, 0.2 MG PO TID for related to heart failure, TAB 10/31/20 Lorazepam (ATIVAN) 0.5 Mg Tablet, 0.5 MG PO Q8HRS PRN for ANXIETY, TAB 10/31/20 Ibuprofen (IBUPROFEN) 400 Mg Tablet, 400 MG PO PRN Q6HRS PRN for pain, TAB 10/31/20 Guaifenesin/Codeine Phosphate (GUAIFENESIN AC COUGH SYRUP) 473 Ml Liquid, 10 ML PO PRN Q4-6HRS PRN for cough and congestion MDD 60 Milliliter(s) for 4 Days, #240 ML 0 Refills 10/31/20 Multivitamin (MULTIPLE VITAMINS) 1 Each Tablet, 1 TAB PO DAILY for deficiency of other vitamins for 30 Days, #30 TAB 0 Refills 10/31/20 Polyethylene Glycol 3350 (MIRALAX) 17 Gm Powd.pack, 1 PACKET PO DAILY for constipation for 2 Days, #2 PACKET 0 Refills dissolve in water 10/31/20 Famotidine (FAMOTIDINE) 20 Mg Tablet, 20 MG PO HS for gerd, TAB 10/31/20 Ondansetron Hcl (ZOFRAN) 4 Mg Tablet, 4 MG PO Q8HRS PRN for NAUSEA/VOMITING, TAB 12/02/19 Tramadol Hcl (TRAMADOL HCL) 50 Mg Tablet, 50 MG PO Q6HRS PRN for PAIN, TAB 12/02/19 Polyvinyl Alcohol (TEARS AGAIN) 15 Ml Drops, 2 DROP EACHEYE Q4HRS for Dry Eyes for 30 Days, #15 ML 0 Refills 12/02/19 Polyvinyl Alcohol (POLYVINYL ALCOHOL) 15 Ml Drops, 2 DROP EACHEYE Q4HRS for dry eyes for 30 Days, #15 ML 0 Refills 12/02/19 Ropinirole Hcl (ROPINIROLE HCL) 1 Mg Tablet, 1 MG PO BID for restless leg , TAB 12/02/19 B Complex With Vitamin C (B-COMPLEX PLUS VITAMIN C) 1 Each Tablet, 1 EACH PO DAILY for supplement, TAB 12/02/19 Magnesium Oxide (MAGNESIUM OXIDE) 400 Mg Tablet, 400 MG PO DAILY for Supplement, TAB 12/02/19 Loratadine (LORATADINE) 10 Mg Tablet, 10 MG PO DAILY for Allergic Rhinitis, TAB 12/02/19 Insulin Lispro (HUMALOG) 100 Unit/1 Ml Vial, 100 UNIT SQ BIDWMEALS for hyperglycemia, VIAL 70 - 150 0 units 151 - 200 0 units 201 - 250 2 units 251 - 300 3 units 301 - 349 4 units if FSBS is under 70 or 350 and over call MD 12/02/19 [guaifenesin Syrup] No Conflict Check, 10 ML PO Q4HRS PRN for COUGH 12/02/19 Carvedilol (COREG) 25 Mg Tablet, 50 MG PO BIDWMEALS for CARDIAC, TAB 12/02/19 Chlorhexidine Gluconate (PERIDEX) 15 Ml Mouthwash, 15 ML PO BID for Erosion of Teeth for 30 Days, #946 ML 0 Refills Swish in mouth for 30 seconds then spit out 12/02/19 Calcium Carbonate (CALCIUM CARBONATE) 500 Mg Tablet, 500 MG PO Q4HRS for Heartburn, TAB 12/02/19 Atorvastatin Calcium (ATORVASTATIN CALCIUM) 10 Mg Tablet, 10 MG PO HS for FOR CHOLESTEROL, #30 TAB 0 Refills 12/02/19 Acetaminophen (ACETAMINOPHEN) 325 Mg Tablet, 650 MG PO Q6HRS for pain/temp, TAB 12/02/19 Metformin Hcl (METFORMIN HCL) 500 Mg Tablet, 250 MG PO BIDWMEALS for ANTI- DIABETIC, TAB 0 Refills 12/03/18 Loperamide HCl (Imodium A-D) 2 Mg Capsule, 2 MG PO DAILY PRN for DIARRHEA, CAP 12/03/18 Risperidone (RISPERIDONE) 0.5 Mg Tablet, 0.5 MG PO DAILY, TAB 03/21/18 Risperidone (RISPERIDONE) 1 Mg Tablet, 1 TAB PO QHS, #30 TAB 1 Refill 03/21/18 Levothyroxine Sodium (LEVOTHYROXINE SODIUM) 112 Mcg Tablet, 1 TAB PO DAILY, #30 TAB 5 Refills 03/21/18 Fluticasone/Salmeterol (ADVAIR 500-50 DISKUS) 1 Each Disk.w.dev, 1 PUFF IH BID, #1 INHALER 5 Refills 03/21/18 Nystatin (NYSTATIN) 15 Gm Powder, 1 TRAMAINE TP PRN BID PRN for RASH, #1 BOTTLE 03/21/18 Clonazepam (CLONAZEPAM ) 0.5 Mg Tablet, 1 TAB PO BID, #60 TAB 1 Refill 09/30/16 Simethicone (GAS-X) 80 Mg Tab.chew, 160 MG PO Q2HR PRN for GAS / BLOATING, TAB.CHEW 02/18/16 Gabapentin (GABAPENTIN ) 100 Mg Capsule, 100 MG PO TID for pain, CAP 02/18/16 STONEY TILLMAN MD Nov 20, 2020 09:40
[2020-11-20] MEDS ORDERED: INSULIN LISPRO 100 UNIT/ML 3ML VIAL for OP,RR ONLY. SQ PRN (09:45)
--- NOTE | 2020-11-20 09:51 | PDOC ---
[employer] PROGRESS NOTE Date of Service DOS: DATE: 11/20/20 TIME: 09:51 Chief Complaint Chief Complaint impression COVID Positive Acute kidney injury with possible ATN Acute hypoxemic hypercapnic respiratory failure Acute on chronic heart failure Blood cultures positive Heart failure PMH AR AICD in UTI Hypocalcemia Hypertriglyceridemia Anemia Low platelets Hypoglycemia (43) Elevated Cr Hyperkalemia Vaginal bleeding concerning for endometrial CA Creatinine continues to worsen despite ongoing IV fluids and good urine output. Cannot rule out element of interstitial nephritis. nephrology consult ASO TITER CRP History of Present Illness History of Present Illness 11/20/2020 Patient seen and evaluated. She is to have a D&C today. She was scheduled to have a kidney biopsy, but this may have to be done as outpatient as she will have to be off her aspirin for 5 days prior. She can potentially return to assisted living facility today. Greater than 30 min spent managing the discharge of this patient. 11/19/2020 Patient seen and evaluated. Breathing on 3 L nasal cannula. She does complain of some itching to her groin. On evaluation there is intertrigo. Can be treated by keeping affected area clean and dry, using topical antifungal powder to reduce friction and help soothe skin recommendation. She will have a kidney biopsy to evaluate worsening kidney function. Discussed with RN. 11/18/2020 Patient seen and evaluated. Charts and labs reviewed. Patient currently breathing on 5 L nasal cannula. Discussed with RN, patient is having worsening kidney function despite IV fluids. Avoid nephrotoxins, and follow-up nephrology recommendations. 11/17/2020 Patient seen exam Chart reviewed She appears weak, confused Acute kidney injury with possible ATN 10/31 Patient seen and examined in ICU Patient sedated with propofol Possible COVID - pending under investigation Discussed with RN Chart reviewed Blood culture positive Vent settings as follows AC/18/450/40 11/01 Patient is COVID positive Patient seen and examined in ICU Patient sedated with propofol Discussed with RN Discussed with Sweatband Separator Chart reviewed Blood cultures are positive 11/02 Patient is COVID positive Patient seen and examined in ICU Propofol IV Discussed with RN Chart Reviewed Blood cultures positive 11/03/2020 Patient resting w/ NAD on Bipap Patient is COVID positive Patient seen and examined in ICU Propofol IV Discussed with RN Chart Reviewed Blood cultures positive 11/04/2020 Patient seen and evaluated. Tachypneic, afebrile. Still breathing on BiPAP. Continue IV Zosyn, positive blood cultures most likely contaminant. Continue diuresis. She is on Levophed and Precedex. Still with some agitation. CT chest pending to evaluate possible thoracentesis. Total time spent 35 minutes, >50% time spent reviewing charts, reviewing labs, discussing with RN and hospice social worker. 11/05/2020 Patient seen and evaluated. She is still intermittently requiring BiPAP. Afebrile, tachypneic, tachycardic. Sedated with Haldol. CT chest yesterday showing trace bilateral pleural effusion, no drainable fluid collection. Continue COVID-19 treatment with steroids and supportive care. 11/06/2020 Patient seen and evaluated, status post extubation 10/31. Afebrile, tachycardic. She is breathing intermittently on BiPAP, currently on 2 L nasal cannula. States she is hungry, swallow eval pending. Continue steroids and antibiotics, per ID. Continue diuresis. 11/07/2020 Patient seen evaluate bedside. Status post extubation on 121. Rising creatinine of 3.3. Pending nephrology evaluation.> 50% time spent in patient chart, labs, and imaging review and in discussion with RN and SW 11/08/2020 Patient seen and examined bedside. No acute events overnight. Saturating 96% on 4 L nasal cannula during the day and tolerating 35% on BiPAP. Passed speech swallow study and is currently on a dysphagia diet. Augmentin discontinued today per ID.> 50% time spent in patient chart, labs, and imaging review and in discussion with RN and MADDIE 11/09/2020 No acute events overnight. Patient is afebrile. Patient seen and examined bedside. Is somewhat more confused and agitated today mainly due to incontine nce to stool. Rectal tube has been removed Hutchins is intact. Will encourage thickened liquids of 240 cc every 6 hours mainly due to JACKIE and worsening potassium. Will defer the rest of the management to nephrology for improving renal function.> 50% time spent in patient chart, labs, and imaging review and in discussion with RN and MADDIE 11/10/2020 Patient given 2 mg IV Ativan last night and subsequently placed on BiPAP. Will change dose to 0.5 p.o. Ativan and see if we can wean off BiPAP and put back on nasal cannula. Patient's chart, labs, images were reviewed and discussed with RN 11/11/2020 No acute events overnight. Patient tolerated BiPAP at night. Currently saturating 94% on 5 L nasal cannula. Elevating potassium levels. Sodium bicarb started. Patient's chart, labs, images were reviewed and discussed with RN 11/12/2020 No acute events overnight. Patient's drowsy this morning but saturating 95% on 3 L nasal cannula. Cannulated patient had some vaginal bleeding and the heparin was held this morning. Discussion with the RN states that her Hutchins might have been tugged causing that episode of bleeding. However patient has not been bleeding this morning and Hutchins and rectal tube was not placed. Patient's chart, labs, images were reviewed and discussed with RN 11/13/2020 No acute events overnight. Patient continues to be drowsy but is following commands and able to make requests for the nurse. Patient saturating 98% on 3 L nasal cannula. Still has some vaginal bleeding around the Hutchins. Rectal tube will be removed today. Will discuss with nephrology for Hutchins removal. Consult gynecology for vaginal bleeding. Patient's chart, labs, images were reviewed and discussed with RN 11/14/20 Continues to be confused and lethargic. Patient is able to communicate. Vitals/I&O Vitals/I&O: Vital Signs Date Time Temp Pulse Resp B/P (MAP) Pulse Ox O2 Delivery O2 Flow Rate FiO2 11/20/20 07:50 96 Nasal Cannula 3.0 11/20/20 07:00 97.6 92 20 184/98 (126) 97.6 I & O 11/19/20 11/19/20 11/20/20 14:55 22:55 06:55 Intake Total 240 ml 240 ml 0 ml Output Total 800 ml 450 ml 500 ml Balance -560 ml -210 ml -500 ml Physical Exam Physical Exam: GENERAL: Weak ill and confused HEENT: Both pupils are round and reacting. No conjunctival lesion. No lesion in the mouth. NECK: Supple, no JVP, no lymphadenopathy. LUNGS: Clear. HEART: S1, S2 regular. ABDOMEN: Soft bowel sounds present nontender nondistended Fecal tube present EXTREMITIES: No edema or cyanosis. SKIN: Unremarkable. NEUROLOGIC: Lethargic General: No acute distress, Other (Appears lethargic) Heart: Regular rate Lungs: Clear Abdomen: Normal bowel sounds Extremities: No clubbing Skin: No breakdown Labs Labs: Laboratory Tests Test 11/19/20 09:50 11/19/20 11:26 11/19/20 16:31 11/19/20 20:38 SARS-CoV-2 Antigen (Rapid) Negative (NEGATIVE) Glucose (Fingerstick) 163 mg/dL (70-99) 147 mg/dL (70-99) 129 mg/dL (70-99) Test 11/20/20 06:45 11/20/20 07:32 Sodium Level 138 mmol/L (136-145) Potassium Level 4.1 mmol/L (3.5-5.1) Chloride Level 102 mmol/L (98-107) Carbon Dioxide Level 35 mmol/L (21-32) Anion Gap 1 (6-14) Blood Urea Nitrogen 16 mg/dL (7-20) Creatinine 3.7 mg/dL (0.6-1.0) Estimated GFR (Cockcroft-Gault) 15.2 Glucose Level 95 mg/dL (70-99) Calcium Level 9.7 mg/dL (8.5-10.1) Phosphorus Level 5.2 mg/dL (2.6-4.7) Albumin 1.8 g/dL (3.4-5.0) Glucose (Fingerstick) 97 mg/dL (70-99) Assessment and Plan Assessmemt and Plan Problems Medical Problems: (1) AMS (altered mental status) Status: Acute (2) Hypercapnia Status: Acute (3) Person under investigation for COVID-19 Status: Acute (4) Respiratory failure Status: Acute (5) UTI (urinary tract infection) Status: Acute Comment Review of Relevant I have reviewed the following items lucas (where applicable) has been applied. Justifications for Admission Other Justification STONEY TILLMAN MD Nov 20, 2020 09:51
[2020-11-20 11:00] VITALS: BP 134/80
[2020-11-20] MEDS ORDERED: PHENYLEPHRINE in 0.9% NACL PF 1 MG/10 ML SYRINGE. IV ONE (11:01)
[2020-11-20] MEDS ORDERED: SEVOFLURANE 31 TO 60 MINUTES. IH ONE (11:14)
--- NOTE | 2020-11-20 11:34 | PDOC4 ---
OPERATIVE NOTE: PreOp Dx: 1.) Postmenopausal bleeding, 2.) H/o COVID 10/30/20 (neg rapid prior to procedure), 3.) Blood cultures positive, 4.) Sepsis resolved, 5.) Acute on chronic systolic heart failure, 6.) H/o IN, 7.) Cardiomyopathy, 8.) A-fib - h/o pacemaker, 9.) Anemia, 10.) Thrombocytopenia resolved, 11.) YULIYA, 12.) Acute metabolic toxic encephalopathy, 13.) Schizoaffective disorder PostOp Dx: same Procedure: H/S, D&C Surgeon: Amy Roth Anesthesia: LMA EBL: 10 cc Fluids: 150 cc UOP: 25 cc Findings: Excoriation and inflammation of the vulva, small mass at the posterior of the fundus, a larger mass at the anterior of the endometrial cavity. Most likely fibroids, but possible polyps. The masses and the endometrium appear benign. Complications: none Path: endometrial curettage ASHLYN ROTH MD Nov 20, 2020 11:34
[2020-11-20] MEDS: FOLIC ACID 1 MG TABLET. PO SCH (12:03)
[2020-11-20] MEDS: CETIRIZINE HCL 10 MG TABLET. PO SCH (12:03)
[2020-11-20] MEDS: VITAMIN B COMPLEX TABLET. PO SCH (12:04)
[2020-11-20] MEDS: GABAPENTIN 100 MG CAPSULE. PO SCH ×2 (12:04→13:40)
[2020-11-20] MEDS: ASPIRIN CHEWABLE 81 MG TABLET. PO SCH (12:04)
[2020-11-20] MEDS: LACTOBACILLUS RHAMNOSUS GG 1 CAPSULE. PO SCH (12:04)
[2020-11-20] MEDS: MAGNESIUM OXIDE 400 MG TABLET PO SCH (12:04)
[2020-11-20] MEDS: MULTIVITAMIN with MINERAL TABLET. PO SCH (12:04)
[2020-11-20] MEDS: DICYCLOMINE HCL 10 MG CAPSULE PO SCH ×2 (12:05→13:39)
[2020-11-20] MEDS: buPROPion XL 150 MG TAB.ER.24H. PO SCH (12:05)
[2020-11-20] MEDS: cloNIDine HCL 0.2 MG TABLET PO SCH ×2 (12:05→13:40)
[2020-11-20] MEDS: METOPROLOL SUCC 24HR ER 100 MG TAB.ER.24H. PO SCH (12:05)
--- NOTE | 2020-11-20 12:49 | OP ---
DATE OF SURGERY: 11/20/2020 PREOPERATIVE DIAGNOSES: 1. Postmenopausal bleeding. 2. History of COVID on 10/30/2020 with rapid COVID negative prior to procedure. 3. Positive blood cultures. 4. Sepsis, resolved. 5. Acute on chronic systolic heart failure. 6. History of myocardial infarction. 7. Cardiomyopathy. 8. Atrial fibrillation with pacemaker. 9. Anemia. 10. Thrombocytopenia, resolved. 11. Acute renal insufficiency. 12. Acute metabolic toxic encephalopathy. 13. Schizoaffective disorder. POSTOPERATIVE DIAGNOSES: 1. Postmenopausal bleeding. 2. History of COVID on 10/30/2020 with rapid COVID negative prior to procedure. 3. Positive blood cultures. 4. Sepsis, resolved. 5. Acute on chronic systolic heart failure. 6. History of myocardial infarction. 7. Cardiomyopathy. 8. Atrial fibrillation with pacemaker. 9. Anemia. 10. Thrombocytopenia, resolved. 11. Acute renal insufficiency. 12. Acute metabolic toxic encephalopathy. 13. Schizoaffective disorder. PROCEDURE: Hysteroscopy, D and C. SURGEON: Ashlyn Roth MD ANESTHESIA: LMA. ESTIMATED BLOOD LOSS: 10 mL. FLUIDS: 150 mL. URINE OUTPUT: 25 mL. FINDINGS: Exoneration and inflammation of the vulva, small mass in the posterior of the fundus with a larger mass in the anterior of the endometrial cavity both of these most likely fibroids, but also possible polyps. Both masses and endometrium appeared benign. COMPLICATIONS: None. PATHOLOGY: Endometrial curetting. DESCRIPTION OF PROCEDURE: The patient was taken to the operating room where an LMA was placed without difficulty. The patient was prepped and draped in normal sterile fashion. A speculum was placed in the patient's vagina to visualize the cervix. The anterior lip of the cervix was then grasped with a single tooth tenaculum. Cervical os was dilated to allow for the hysteroscope to be placed. Once the hysteroscope was placed, the above findings were noted. The hysteroscope was then removed. At that point, the curetting was performed in all 4 quadrants. Specimen was then taken to the pathology. Once this was complete, a single tooth tenaculum was removed. No bleeding was seen at the tenaculum site. Good hemostasis was noted. At that point, the patient was taken to the recovery room in stable condition. ASHLYN ROTH MD DR: BASIA/natalia JOB#: [id number] / [id number]
--- NOTE | 2020-11-20 13:12 | PDOC ---
DATE OF SERVICE DATE: 11/20/20 TIME: 10:15 SUBJECTIVE ROS Pt gone for D and C , Overall Stable per nursing OBJECTIVE Vital Signs Vital Signs Date Time Temp Pulse Resp B/P (MAP) Pulse Ox O2 Delivery O2 Flow Rate FiO2 11/20/20 12:05 90 133/70 11/20/20 11:50 98.8 18 93 Nasal Cannula 4 98.8 I & 0 Intake and Output 11/20/20 07:00 Intake Total 480 ml Output Total 1750 ml Balance -1270 ml Intake Oral 480 ml Output Urine Total 1750 ml PHYSICAL EXAM Physical Exam General Appearance: no apparent distress HEEN OM moist Skin: no rash Respiratory: decreased breath sounds Heart: S1S2 Abdomen: soft, obese bowel sounds present Genitourinary: Hutch[place] + Extremities: no edema DIAGNOSIS/ASSESSMENT Assessment & Plan JACKIE- Suspect ATN- no improvement , UA No Micr hematuria , Renal Bx ordered , per nursing report IR unable to at this time and recommned holding for 5-7 days and they are planning to schedule as OP Supportive care , strict I/O ,avoid nephrotoxins Anemia - Hgb dropping, postmenopausal bleeding , D and C today Proteinuria- Nephrotic, No Micr hematuria , No WBC's or cast CKD stage 2/3 CHF compensated / CM with EF 45% COVID Positive Acute hypoxemic hypercapnic respiratory failure- extubated Blood cultures positive AICD in UTI COMMENT/RELEVANT DATA Meds Current Medications Medications (Trade) Dose Ordered Sig/Eber Start Time Stop Time Status Last Admin Dose Admin Acetaminophen (Tylenol Supp) 650 mg PRN Q6HRS PRN 11/02/20 00:00 11/02/20 07:27 650 MG Acetaminophen (Tylenol) 650 mg PRN Q6HRS PRN 11/19/20 16:45 Albuterol Sulfate (Ventolin Hfa) 1 puff PRN Q6HRS PRN 11/04/20 13:45 11/04/20 13:50 1 PUFF Albuterol Sulfate (Ventolin Neb Soln) 2.5 mg PRN Q6HRS PRN 11/03/20 06:00 Albuterol/ Ipratropium (Duoneb) 3 ml PRN Q4HRS PRN 11/02/20 07:00 11/02/20 07:03 DC Amino Acids/ Glycerin/ Electrolytes 1,000 ml @ 100 mls/hr Q10H 11/01/20 13:30 11/09/20 14:40 DC 11/09/20 08:28 100 MLS/HR Amoxicillin/ Clavulanate Potassium (Augmentin 500/ 125mg) 1 tab BID 11/07/20 10:00 11/08/20 10:45 DC 11/08/20 09:14 1 TAB Aspirin (Aspirin Chewable) 81 mg [id number] 10/31/20 08:00 11/20/20 12:04 81 MG Atorvastatin Calcium (Lipitor) 10 mg HS 10/31/20 21:00 11/19/20 22:02 10 MG Atropine Sulfate (ATROPINE 0.5mg SYRINGE) 0.5 mg PRN Q5MIN PRN 11/03/20 12:00 11/13/20 08:16 DC Budesonide (Pulmicort) 0.5 mg RTBID 10/31/20 20:00 11/01/20 13:52 DC Bupropion HCl (Wellbutrin Xl) 150 mg DAILY 10/31/20 12:00 11/20/20 12:05 150 MG Calcium Carbonate/ Glycine (Oscal) 500 mg DAILY 11/20/20 09:00 11/20/20 12:04 500 MG Carvedilol (Coreg) 12.5 mg BIDWMEALS 10/31/20 17:00 11/03/20 11:10 DC 11/01/20 08:43 12.5 MG Cetirizine HCl (ZyrTEC) 10 mg DAILY 11/01/20 09:00 11/20/20 12:03 10 MG Clonazepam (KlonoPIN) 0.5 mg BID 10/31/20 12:00 11/13/20 13:12 DC 11/13/20 09:03 0.5 MG Clonidine HCl (Catapres) 0.2 mg TID 10/31/20 12:00 11/20/20 12:05 0.2 MG Darbepoetin Nick (ARANESP for DIALYSIS PTS) 60 mcg WEEKLYHS 11/17/20 21:00 11/17/20 20:46 60 MCG Dexamethasone Sodium Phosphate (Decadron) 4 mg STK-MED ONCE 11/20/20 09:02 11/20/20 09:02 DC Dexmedetomidine HCl 400 mcg/ Sodium Chloride 100 ml @ 0 mls/hr CONT PRN 11/03/20 12:00 11/13/20 08:16 DC 11/04/20 05:42 22.1 MLS/HR Dextrose (Dextrose 50%-Water Syringe) 25 gm 1X ONCE 11/10/20 06:30 11/10/20 06:31 DC 11/10/20 07:42 25 GM Dextrose/Sodium Chloride 1,000 ml @ 75 mls/hr [id number] 11/13/20 11:15 11/19/20 05:49 75 MLS/HR Dicyclomine HCl (Bentyl) 20 mg TID 10/31/20 14:00 11/20/20 12:05 20 MG Diphenoxylate HCl/ Atropine (Lomotil) 1 tab PRN TID PRN 11/19/20 16:15 Doxycycline Hyclate (Vibra-Tab) 100 mg BID 11/05/20 09:00 11/05/20 09:43 DC Enoxaparin Sodium (Lovenox 120mg Syringe) 110 mg 1X ONCE 10/30/20 06:15 10/30/20 06:16 DC 10/30/20 06:27 110 MG Etomidate (Amidate) 20 mg STK-MED ONCE 10/30/20 10:43 10/30/20 10:43 DC Famotidine (Pepcid) 20 mg HS 10/31/20 21:00 11/19/20 22:01 20 MG Fentanyl Citrate (Fentanyl 2ml Vial) 50 mcg PRN Q5MIN PRN 11/20/20 07:00 11/21/20 06:59 Folic Acid (Folic Acid) 0.5 mg DAILY 10/31/20 12:00 11/20/20 12:03 0.5 MG Furosemide (Lasix) 40 mg DAILY 11/03/20 12:00 11/06/20 11:34 DC 11/05/20 10:27 40 MG Gabapentin (Neurontin) 100 mg TID 10/31/20 14:00 11/20/20 12:04 100 MG Glycerin/ Hypromellose/ Polyethylene (Artificial Tears) 2 drop Q4HRS 10/31/20 16:00 11/20/20 12:21 2 DROP Guaifenesin (Robitussin) 200 mg PRN Q4HRS PRN 10/31/20 12:45 11/18/20 08:43 200 MG Haloperidol Lactate (Haldol Inj) 5 mg PRN Q6HRS PRN 11/13/20 13:15 Heparin Sodium (Porcine) (Heparin Sodium) 5,000 unit Q8HRS 10/30/20 22:00 11/19/20 22:03 5,000 UNIT Hydromorphone HCl (Dilaudid) 0.5 mg PRN Q10MIN PRN 11/20/20 07:00 11/21/20 06:59 Ibuprofen (Motrin) 400 mg PRN Q6HRS PRN 10/31/20 11:15 11/14/20 20:11 DC Insulin Human Lispro (HumaLOG VIAL for OP,RR ONLY) 0-10 units PRN Q1HR PRN 11/20/20 09:45 11/21/20 09:44 Insulin Human Lispro (HumaLOG) 10 units 1X ONCE 11/09/20 15:00 11/09/20 14:56 DC Insulin Human Regular (HumuLIN R VIAL) 10 unit 1X ONCE 11/10/20 06:30 11/10/20 06:31 DC 11/10/20 07:43 10 UNIT Labetalol HCl (Normodyne Iv Push) 20 mg PRN Q2HR PRN 11/02/20 11:30 11/12/20 05:24 20 MG Lactobacillus Rhamnosus (Culturelle) 1 cap BID 10/31/20 12:00 11/20/20 12:04 1 CAP Levothyroxine Sodium (Synthroid) 112 mcg DAILY06 11/01/20 09:00 11/20/20 06:28 112 MCG Lidocaine HCl (Lidocaine Pf 2% Vial) 5 ml STK-MED ONCE 11/20/20 09:02 11/20/20 09:02 DC Lidocaine HCl (Xylocaine-Mpf 1% 2ml Vial) 2 ml PRN 1X PRN 11/20/20 07:00 11/21/20 06:59 Loperamide HCl (Imodium) 2 mg PRN DAILY PRN 10/31/20 11:15 11/07/20 09:53 2 MG Lorazepam (Ativan Inj) 0.5 mg PRN Q4HRS PRN 11/10/20 09:15 11/13/20 13:12 DC 11/12/20 03:55 0.5 MG Lorazepam (Ativan) 0.5 mg PRN Q8HRS PRN 10/31/20 11:15 11/10/20 14:03 0.5 MG Magnesium Oxide (Magnesium Oxide) 400 mg DAILY 10/31/20 12:00 11/20/20 12:04 400 MG Metformin HCl (Glucophage) 250 mg BIDWMEALS 10/31/20 17:00 11/08/20 08:58 DC 11/07/20 17:25 250 MG Metoprolol Succinate (Toprol Xl) 100 mg DAILY 11/12/20 09:00 11/20/20 12:05 100 MG Metoprolol Tartrate (Lopressor Vial) 5 mg PRN Q6HRS PRN 11/11/20 16:15 Midazolam HCl 100 mg/Sodium Chloride 100 ml @ 0 mls/hr ONCE ONCE 10/30/20 06:45 10/30/20 06:46 DC 10/30/20 07:10 1 MLS/HR Morphine Sulfate (Morphine Sulfate) 1 mg PRN Q10MIN PRN 11/20/20 07:00 11/21/20 06:59 Multivitamins (Thera M Plus) 1 tab DAILY 10/31/20 12:30 11/20/20 12:04 1 TAB Non-Formulary Medication (Fluticasone/ Salmeterol (Advair 500-50 Diskus)) 1 puff BID 10/31/20 21:00 UNV Non-Formulary Medication (Peg 400/ Hypromellose/ Glycerin (Artificial Tears Drops)) 1 drop QID 10/31/20 13:00 UNV Non-Formulary Medication (Polyvinyl Alcohol (Tears Again)) 2 drop Q4HRS 10/31/20 12:00 UNV Non-Formulary Medication (Risperidone ) 0.5 mg DAILY 11/01/20 09:00 UNV Norepinephrine Bitartrate 8 mg/ Dextrose 258 ml @ 17.202 mls/ hr CONT PRN 11/03/20 13:45 11/11/20 10:17 DC 11/04/20 05:54 8.3 MLS/HR Nystatin (Nystop) 1 ulis PRN BID PRN 10/31/20 11:15 11/14/20 08:19 1 LUIS Ondansetron HCl (Zofran Odt) 4 mg PRN Q8HRS PRN 10/31/20 12:30 Ondansetron HCl (Zofran) 4 mg STK-MED ONCE 11/20/20 09:02 11/20/20 09:02 DC Phenylephrine HCl (PHENYLEPHRINE in 0.9% NACL PF) 1 mg STK-MED ONCE 11/20/20 11:01 11/20/20 11:01 DC Piperacillin Sod/ Tazobactam Sod (Zosyn Per Pharmacy) 1 each PRN DAILY PRN 10/30/20 06:00 11/06/20 11:03 DC Piperacillin Sod/ Tazobactam Sod 3.375 gm/Sodium Chloride 50 ml @ 100 mls/hr Q6HRS 11/05/20 12:00 11/06/20 09:15 DC 11/06/20 00:04 100 MLS/HR Piperacillin Sod/ Tazobactam Sod 4.5 gm/Sodium Chloride 100 ml @ 200 mls/hr Q6HRS 10/30/20 12:00 11/04/20 09:59 DC 11/04/20 05:10 200 MLS/HR Polyethylene Glycol (miraLAX PACKET) 17 gm PRN DAILY PRN 11/09/20 10:30 Potassium Bicarbonate (Potassium Effervescent Tablet) 80 meq 1X ONCE 10/31/20 09:45 10/31/20 09:46 DC 10/31/20 13:20 80 MEQ Potassium Chloride (Klor-Con) 10 meq [id number] 11/02/20 08:00 11/08/20 14:35 DC 11/07/20 09:08 10 MEQ Prochlorperazine Edisylate (Compazine) 5 mg PACU PRN PRN 11/20/20 07:00 11/21/20 06:59 Propofol (Diprivan) 200 mg STK-MED ONCE 11/20/20 09:02 11/20/20 09:02 DC Ringer's Solution 1,000 ml @ 30 mls/hr Q24H 11/20/20 07:00 11/20/20 18:59 11/20/20 10:19 30 MLS/HR Risperidone (RisperDAL) 1 mg QHS 10/31/20 21:00 11/19/20 22:03 1 MG Ropinirole HCl (Requip) 2 mg HS 11/20/20 21:00 Sevoflurane (Ultane) 30 ml STK-MED ONCE 11/20/20 11:14 11/20/20 11:14 DC Simethicone (Gas-X) 160 mg PRN Q2HR PRN 10/31/20 12:00 11/06/20 17:23 160 MG Sodium Bicarbonate 50 meq/Sodium Chloride 1,050 ml @ 100 mls/hr [id number] 11/09/20 16:00 11/13/20 11:10 DC 11/13/20 06:20 100 MLS/HR Sodium Polystyrene Sulfonate (Kayexalate) 15 gm 1X ONCE 11/10/20 19:00 11/10/20 19:01 DC 11/10/20 18:11 15 GM Sodium Bicarbonate (Sodium Bicarb Adult 8.4% Syr) 50 meq 1X ONCE 11/10/20 06:30 11/10/20 06:31 DC 11/10/20 07:41 50 MEQ Sodium Chloride 1,000 ml @ 125 mls/hr Q8H 11/06/20 16:30 11/07/20 10:52 DC 11/06/20 23:41 125 MLS/HR Succinylcholine Chloride (Anectine) 200 mg STK-MED ONCE 10/30/20 10:43 10/30/20 10:44 DC Tramadol HCl (Ultram) 50 mg PRN Q6HRS PRN 10/31/20 11:15 11/19/20 22:02 50 MG Vancomycin HCl (Vanco Per Pharmacy) 1 each PRN DAILY PRN 10/30/20 11:00 10/31/20 11:11 DC 10/31/20 09:51 1 EACH Vancomycin HCl (Vancomycin Trough Level) 1 each 1X ONCE 11/01/20 12:30 10/31/20 13:36 DC Vancomycin HCl 1.75 gm/Sodium Chloride 500 ml @ 250 mls/hr Q24H 10/31/20 13:00 10/31/20 11:11 DC Vitamin B Complex (Dustin B) 1 tab DAILY 10/31/20 12:00 11/20/20 12:04 1 TAB Ziprasidone (Geodon Im) 10 mg PRN QHS PRN 11/09/20 22:45 Lab Laboratory Tests Test 11/19/20 16:31 11/19/20 20:38 11/20/20 06:45 1/6/21 07:32 Glucose (Fingerstick) 147 mg/dL (70-99) 129 mg/dL (70-99) 97 mg/dL (70-99) Sodium Level 138 mmol/L (136-145) Potassium Level 4.1 mmol/L (3.5-5.1) Chloride Level 102 mmol/L (98-107) Carbon Dioxide Level 35 mmol/L (21-32) Anion Gap 1 (6-14) Blood Urea Nitrogen 16 mg/dL (7-20) Creatinine 3.7 mg/dL (0.6-1.0) Estimated GFR (Cockcroft-Gault) 15.2 Glucose Level 95 mg/dL (70-99) Calcium Level 9.7 mg/dL (8.5-10.1) Phosphorus Level 5.2 mg/dL (2.6-4.7) Albumin 1.8 g/dL (3.4-5.0) Test 11/20/20 10:25 11/20/20 11:37 11/20/20 12:01 Glucose (Fingerstick) 82 mg/dL (70-99) 86 mg/dL (70-99) 93 mg/dL (70-99) Results All relevant outside records, renal labs, imaging studies, telemetry/EKG's were reviewed. Justicifation of Admission Dx: Justifications for Admission: Justification of Admission Dx: Yes SARAHI SORENSEN MD Nov 20, 2020 13:12
[2020-11-20 15:00] VITALS: BP 136/72
--- NOTE | 2020-11-20 15:47 | NUR ---
SS following up with discharge planning. SS reviewed pt chart and discussed with pt RN. Pt is currently requiring oxygen via nasal canula. COVID19 positive. Pt had D&C today. Pt unable to have kidney biopsy. Discharge orders received for return to facility at [facility], ; fax [phone]. SS phoned and faxed discharge orders and clinical to [place]. Pt will discharge today and return to [place] at 1830 via [facility] scheduled by facility. Pt, pt's RN, and pt's family notified.
--- NOTE | 2020-11-20 17:37 | NUR ---
REPORT GIVEN TO [facility] NURSE. PICC LINE REMOVED FORM RIGHT ARM. AWAITS TRANSPORTATION.
--- NOTE | 2020-11-20 18:40 | NUR ---
TRANSPORTATION IS HERE, ESCORTED PATIENT OFF UNIT PER WHEELCHAIR.
[2020-11-20] MEDS ORDERED: rOPINIRole 1 MG TABLET. PO SCH (21:00)
--- NOTE | 2020-11-21 13:50 | PDOC3 ---
Discharge Summary Visit Information Date of Admission: Nov 01, 2020 Date of Discharge: Nov 20, 2020 Final Diagnosis Problems Medical Problems: (1) AMS (altered mental status) Status: Acute (2) Hypercapnia Status: Acute (3) Person under investigation for COVID-19 Status: Acute (4) Respiratory failure Status: Acute (5) UTI (urinary tract infection) Status: Acute Brief Hospital Course Allergies Allergies Coded Allergies Type Severity Reaction Last Updated Verified lactose Allergy Intermediate 02/25/16 Yes lisinopril Allergy Intermediate 08/08/15 Yes Vital Signs Vital Signs Date Time Temp Pulse Resp B/P (MAP) Pulse Ox O2 Delivery O2 Flow Rate FiO2 11/20/20 15:00 97.8 75 18 136/72 (93) 100 Nasal Cannula 3.0 97.8 Lab Results Laboratory Tests Test 11/19/20 16:31 11/19/20 20:38 11/20/20 06:45 11/20/20 07:32 Glucose (Fingerstick) 147 mg/dL (70-99) 129 mg/dL (70-99) 97 mg/dL (70-99) Sodium Level 138 mmol/L (136-145) Potassium Level 4.1 mmol/L (3.5-5.1) Chloride Level 102 mmol/L (98-107) Carbon Dioxide Level 35 mmol/L (21-32) Anion Gap 1 (6-14) Blood Urea Nitrogen 16 mg/dL (7-20) Creatinine 3.7 mg/dL (0.6-1.0) Estimated GFR (Cockcroft-Gault) 15.2 Glucose Level 95 mg/dL (70-99) Calcium Level 9.7 mg/dL (8.5-10.1) Phosphorus Level 5.2 mg/dL (2.6-4.7) Albumin 1.8 g/dL (3.4-5.0) Test 11/20/20 10:25 11/20/20 11:37 11/20/20 12:01 11/20/20 16:46 Glucose (Fingerstick) 82 mg/dL (70-99) 86 mg/dL (70-99) 93 mg/dL (70-99) 183 mg/dL (70-99) Laboratory Tests Test 11/20/20 16:46 Glucose (Fingerstick) 183 mg/dL (70-99) Brief Hospital Course Ms. Mulligan is a 60 old female who presented with acute on chronic hypoxemic hypercapnic respiratory failure secondary to COVID-19 pneumonia, acute on chronic congestive heart failure, acute on chronic renal insufficiency, bacteremia, and postmenopausal bleeding. She was initially intubated and placed in the ICU, but subsequently extubated on 10/31. Consultations were placed to pulmonology, cardiology, and ID. Positive blood cultures obtained most likely contaminant. Due to worsening kidney function consultation was placed to nephrology. Her kidney function did not improve with her modalities, so patient was scheduled for a renal biopsy. Unfortunately her interventional radiologist did not feel comfortable performing this procedure until patient has been off aspirin for 5 to 7 days, so she was scheduled for outpatient renal biopsy. Her hemoglobin continued to drop due to postmenopausal bleeding, so consultations were placed to [employer] and patient had a D&C on 11/20/2020. She was discharged to a nursing facility to follow-up for outpatient renal biopsy. Discharge Information Condition at Discharge: Stable Disposition/Orders: D/C to Another Facility Scheduled Acetaminophen (Acetaminophen) 325 Mg Tablet, 650 MG PO Q6HRS for pain/temp, (Reported) Entered as Reported by: ELYSSA BOOTH on 12/02/19224 Last Action: Continued on 10/31/201103 by NIAL CASTALEN Atorvastatin Calcium (Atorvastatin Calcium) 10 Mg Tablet, 10 MG PO HS for FOR CHOLESTEROL, #30 Ref 0 (Reported) Entered as Reported by: ELYSSA BOOTH on 12/02/19225 Last Action: Continued on 10/31/201103 by NIAL CASTALEN B Complex With Vitamin C (B-Complex Plus Vitamin C) 1 Each Tablet, 1 EACH PO DAILY for supplement, (Reported) Entered as Reported by: ELYSSA BOOTH on 12/02/19310 Last Action: Converted on 10/31/201103 by NIAL CASTALEN Bupropion Hcl (Wellbutrin Xl) 150 Mg Tab.er.24h, 150 MG PO DAILY for major depressive disorder, (Reported) Entered as Reported by: DAVIE BERRIOS on 10/31/20 0510 Last Taken: 150 on Unknown Date & Time Last Action: Continued on 10/31/201103 by NIAL CASTALEN Calcium Carbonate (Calcium Carbonate) 500 Mg Tablet, 500 MG PO Q4HRS for Heartburn, (Reported) Entered as Reported by: ELYSSA BOOTH on 12/02/19227 Last Action: Continued on 10/31/201103 by NIAL CASTLE Carvedilol (Coreg) 25 Mg Tablet, 50 MG PO BIDWMEALS for CARDIAC, (Reported) Entered as Reported by: ELYSSA BOOTH on 12/02/19235 Last Action: Converted on 10/31/201103 by NIAL CASTLE Chlorhexidine Gluconate (Peridex) 15 Ml Mouthwash, 15 ML PO BID for Erosion of Teeth for 30 Days, #946 Ref 0 (Reported) Swish in mouth for 30 seconds then spit out Entered as Reported by: ELYSSA BOOTH on 12/02/19233 Last Action: Reviewed on 10/31/20437 by DAVIE BERRIOS Clonazepam (Clonazepam ) 0.5 Mg Tablet, 1 TAB PO BID, #60 Ref 1 (Reported) Entered as Reported by: Fozia Yoon on 09/30/16 0645 Last Action: Continued on 10/31/201103 by NIAL CASTLE Clonidine Hcl (Clonidine Hcl) 0.2 Mg Tablet, 0.2 MG PO TID for related to heart failure, (Reported) Entered as Reported by: DAVIE BERRIOS on 10/31/20509 Last Taken: 0.2 on Unknown Date & Time Last Action: Continued on 10/31/201103 by NIAL CASTLE Dicyclomine Hcl (Dicyclomine Hcl) 20 Mg Tablet, 1 TAB PO TID for diarrhea for 10 Days, #30 Ref 1 Prescribed by: MARY ELLEN FREEMAN MD on 10/28/202029 Last Action: Converted on 10/31/201103 by NIAL CASTLE Diphenoxylate Hcl/Atropine (Lomotil Tablet) 1 Each Tablet, 1 TAB PO TID for diarrhea for 3 Days, #9 Prescribed by: MARY ELLEN FREEMAN MD on 10/28/202029 Last Action: Continued on 10/31/201103 by NIAL CASTLE Famotidine (Famotidine) 20 Mg Tablet, 20 MG PO HS for gerd, (Reported) Entered as Reported by: DAVIE BERRIOS on 10/31/20509 Last Taken: 20 on Unknown Date & Time Last Action: Continued on 10/31/201103 by NIAL CASTLE Fluticasone/Salmeterol (Advair 500-50 Diskus) 1 Each Disk.w.dev, 1 PUFF IH BID, #1 Ref 5 (Reported) Entered as Reported by: MARITZA SPIVEY on 03/21/18 0803 Last Action: Converted on 10/31/20 110 by NIAL CASTLE Folic Acid (Folic Acid) 0.4 Mg Tablet, 0.4 MG PO DAILY for SUPPLEMENT, (Reported) Entered as Reported by: DAVIE BERRIOS on 10/31/20 0510 Last Taken: 400 mcg on Unknown Date & Time Last Action: Converted on 10/31/201103 by NIAL CASTLE Gabapentin (Gabapentin ) 100 Mg Capsule, 100 MG PO TID for pain, (Reported) Entered as Reported by: ODIN RALPH on 02/18/16 1101 Last Action: Continued on 10/31/201103 by NIAL CASTLE Insulin Lispro (Humalog) 100 Unit/1 Ml Vial, 100 UNIT SQ BIDWMEALS for hyperglycemia, (Reported) 70 - 150 0 units 151 - 200 0 units 201 - 250 2 units 251 - 300 3 units 301 - 349 4 units if FSBS is under 70 or 350 and over call MD Entered as Reported by: ELYSSA BOOTH on 12/02/19 0257 Last Action: Continued on 10/31/201103 by NIAL CASTLE Ipratropium/Albuterol Sulfate (Duoneb 0.5-3(2.5) Mg/3 Ml) 3 Ml Ampul.neb, 3 ML NEB Q4HRS for sob, (Reported) Entered as Reported by: DAVIE BERRIOS on 10/31/20 0510 Last Taken: 0.5-2.5 mg /3ml on Unknown Date & Time Last Action: Continued on 10/31/20 110 by NIAL CASTLE Lactobacillus Rhamnosus Gg (Culturelle) 1 Each Cap.sprink, 1 CAP PO BID for COPD for 14 Days, #28 Prescribed by: CRISPIN SCHROEDER MD on 12/04/19 1311 Last Action: Continued on 10/31/201103 by NIAL CASTLE Levothyroxine Sodium (Levothyroxine Sodium) 112 Mcg Tablet, 1 TAB PO DAILY, #30 Ref 5 (Reported) Entered as Reported by: MARITZA SPIVEY on 03/21/18 0803 Last Action: Continued on 10/31/201103 by NIAL CASTLE Loratadine (Loratadine) 10 Mg Tablet, 10 MG PO DAILY for Allergic Rhinitis, (Reported) Entered as Reported by: ELYSSA BOOTH on 12/02/19 0303 Last Action: Converted on 10/31/201103 by NIAL CASTLE Magnesium Oxide (Magnesium Oxide) 400 Mg Tablet, 400 MG PO DAILY for Supplement, (Reported) Entered as Reported by: ELYSSA BOOTH on 12/02/19 0304 Last Action: Converted on 10/31/201103 by NIAL CASTLE Metformin Hcl (Metformin Hcl) 500 Mg Tablet, 250 MG PO BIDWMEALS for ANTI- DIABETIC, Ref 0 (Reported) Entered as Reported by: SAMIRA GONZALES on 12/03/182228 Last Action: Continued on 10/31/201103 by NIAL CASTLE Multivitamin (Multiple Vitamins) 1 Each Tablet, 1 TAB PO DAILY for deficiency of other vitamins for 30 Days, #30 Ref 0 (Reported) Entered as Reported by: DAVIE BERRIOS on 10/31/20509 Last Taken: 1 tab on Unknown Date & Time Last Action: Converted on 10/31/201103 by NIAL CASTLE Peg 400/Hypromellose/Glycerin (Artificial Tears Drops) 15 Ml Drops, 1 DROP OS QID for irritation for 30 Days, #15 Ref 0 (Reported) Entered as Reported by: DAVIE BERRIOS on 10/31/20509 Last Taken: 1 drop on Unknown Date & Time Last Action: Converted on 10/31/201103 by NIAL CASTLE Polyethylene Glycol 3350 (Miralax) 17 Gm Powd.pack, 1 PACKET PO DAILY for constipation for 2 Days, #2 Ref 0 (Reported) dissolve in water Entered as Reported by: DAVIE BERRIOS on 10/31/20509 Last Taken: 17 gram on Unknown Date & Time Last Action: Continued on 10/31/201103 by NIAL CASTLE Polyvinyl Alcohol (Polyvinyl Alcohol) 15 Ml Drops, 2 DROP EACHEYE Q4HRS for dry eyes for 30 Days, #15 Ref 0 (Reported) Entered as Reported by: ELYSSA BOOTH on 12/02/19 0320 Last Action: Converted on 10/31/201103 by NIAL CASTLE Polyvinyl Alcohol (Tears Again) 15 Ml Drops, 2 DROP EACHEYE Q4HRS for Dry Eyes for 30 Days, #15 Ref 0 (Reported) Entered as Reported by: EYLSSA BOOTH on 12/02/192 Last Action: Converted on 10/31/201103 by SHAHNAZ SANTOS Risperidone (Risperidone) 1 Mg Tablet, 1 TAB PO QHS, #30 Ref 1 (Reported) Entered as Reported by: MARITZA SPIVEY on 03/21/18802 Last Action: Continued on 10/31/201103 by SHAHNAZ SANTOS Risperidone (Risperidone) 0.5 Mg Tablet, 0.5 MG PO DAILY, (Reported) Entered as Reported by: MARITZA SPIVEY on 03/21/18802 Last Action: Converted on 10/31/201103 by SHAHNAZ SANTOS Ropinirole Hcl (Ropinirole Hcl) 1 Mg Tablet, 1 MG PO BID for restless leg , (Reported) Entered as Reported by: ELYSSA BOOTH on 12/02/197 Last Action: Continued on 10/31/201103 by SHAHNAZ SANTOS Scheduled PRN Guaifenesin/Codeine Phosphate (Guaifenesin Ac Cough Syrup) 473 Ml Liquid, 10 ML PO PRN Q4-6HRS PRN for cough and congestion MDD 60 Milliliter(s) for 4 Days, #240 Ref 0 (Reported) Entered as Reported by: DAVIE BERRIOS on 10/31/20509 Last Taken: 10 ml on Unknown Date & Time Last Action: New Order on 509 by DAVIE BERRIOS Ibuprofen (Ibuprofen) 400 Mg Tablet, 400 MG PO PRN Q6HRS PRN for pain, (Reported) Entered as Reported by: DAVIE BERRIOS on 10/31/20509 Last Taken: 400 mg on Unknown Date & Time Last Action: Continued on 10/31/201103 by SHAHNAZ SANTOS Loperamide HCl (Imodium A-D) 2 Mg Capsule, 2 MG PO DAILY PRN for DIARRHEA, (Reported) Entered as Reported by: SAMIRA GONZALES on 12/03/18 5285 Last Action: Continued on 10/31/201103 by SHAHNAZ SANTOS Lorazepam (Ativan) 0.5 Mg Tablet, 0.5 MG PO Q8HRS PRN for ANXIETY, (Reported) Entered as Reported by: DAVIE BERRIOS on 10/31/20 0510 Last Taken: 0.5 on Unknown Date & Time Last Action: Continued on 10/31/201103 by SHAHNAZ SANTOS Nystatin (Nystatin) 15 Gm Powder, 1 TRAMAINE TP PRN BID PRN for RASH, #1 (Reported) Entered as Reported by: MARITZA SPIVEY on 03/21/18 0803 Last Action: Continued on 10/31/201103 by SHAHNAZ SANTOS Ondansetron Hcl (Zofran) 4 Mg Tablet, 4 MG PO Q8HRS PRN for NAUSEA/VOMITING, (Re ported) Entered as Reported by: ELYSSA BOOTH on 12/02/19 0324 Last Action: Converted on 10/31/201103 by SHAHNAZ SANTOS Simethicone (Gas-X) 80 Mg Tab.chew, 160 MG PO Q2HR PRN for GAS / BLOATING, (Reported) Entered as Reported by: ODIN RALPH on 02/18/16 1101 Last Action: Continued on 10/31/201103 by SHAHNAZ SANTOS Tramadol Hcl (Tramadol Hcl) 50 Mg Tablet, 50 MG PO Q6HRS PRN for PAIN, (Reported) Entered as Reported by: ELYSSA BOOTH on 12/02/19 0323 Last Action: Continued on 10/31/201103 by SHAHNAZ SANTOS [guaifenesin Syrup] , 10 ML PO Q4HRS PRN for COUGH, (Reported) Entered as Reported by: ELYSSA BOOTH on 12/02/19 0247 Last Action: Converted on 10/31/201103 by SHAHNAZ SANTOS Discontinued Medications Azithromycin (Zithromax) 250 Mg Tablet, 250 MG PO as directed for ANTI-BIOTIC, #6 Ref 0 Take 2 PO x 1 days Then take 1 PO q 24 hour for the next 4 days Prescribed by: MARY ELLEN FREEMAN MD on 10/28/20 2030 Last Action: Reviewed on 10/31/20 0438 by DAVIE BERRIOS Doxycycline Hyclate (Doxycycline Hyclate) 100 Mg Tablet, 1 TAB PO BID for COPD for 3 Days, #6 Prescribed by: CRISPIN SCHROEDER MD on 12/04/19 1311 Last Action: Continued on 10/31/20 1104 by SHAHNAZ SANTOS Justicifation of Admission Dx: Justifications for Admission: Justification of Admission Dx: Yes STONEY TILLMAN MD Nov 21, 2020 13:50
[2020-11-22] MEDS ORDERED: DOXY100C2 PO (13:16)
--- NOTE | 2020-11-22 18:48 | PATHOLOGY ---
[facility] Accession Number: [id number] . 01 Material submitted: . endometrium - ENDOMETRIAL CURETTINGS . 01 Clinical history: . POSTMENOPAUSAL BLEEDING HYSTEROSCOPY D AND C RESPIRATORY FAILURE . 02 Diagnosis: Endometrial curettings: - Endometrial polyps. - Disordered proliferative endometrium. (JPM:madi; 11/22/2020) S 11/22/2020 0930 Local . 02 Comment: There is no atypia or evidence of malignancy. (JPM:madi; 11/22/2020) . 02 Electronically signed: . Toi Gordon MD, Pathologist NPI- [id number] . 01 Gross description: . Received in formalin labeled "Bing Mulligan, endometrial curettings" is a 2.6 x 1.5 x 0.2 cm aggregate of red-brown friable soft tissue fragments. The specimen is submitted entirely in A1. ([facility]; 11/21/2020) [facility] 11/21/2020 1247 Local . 02 Pathologist provided ICD-10: N84.0, N85.8 . 02 CPT . 287870 Specimen Comment: A courtesy copy of this report has been sent to [phone] Specimen Comment: [id number] Specimen Comment: Report sent to / DR SANTOS Performed at: 01 [facility] [address], [place] [id number] MD Joaquín Johnston MD Phone: [phone] Performed at: 02 [facility] [address] [place], [place] [id number] MD Toi Gordon MD Phone: [phone]
== END 2020-11-20 18:40 | DRG 853 ==
LOC: ER 03:20 → ED HOLD 05:34 → CVICU 16:07 → 2 SOUTH 11-14 19:52
PROVIDERS: ADMIT Internal Medicine; ATTEND Internal Medicine
PROC: 5A1945Z Respiratory Ventilation, 24-96 Consecutive Hours (ICD-10-PCS; 2020-10-30)
PROC: 0BH17EZ Insertion of Endotracheal Airway into Trachea, Via Natural or Artificial Opening (ICD-10-PCS; 2020-10-30)
PROC: 5A09357 Assistance with Respiratory Ventilation, Less than 24 Consecutive Hours, Continuous Positive Airway Pressure (ICD-10-PCS; 2020-10-30)
PROC: 5A09357 Assistance with Respiratory Ventilation, Less than 24 Consecutive Hours, Continuous Positive Airway Pressure (ICD-10-PCS; 2020-11-01)
PROC: 5A09457 Assistance with Respiratory Ventilation, 24-96 Consecutive Hours, Continuous Positive Airway Pressure (ICD-10-PCS; 2020-11-02)
PROC: 5A09357 Assistance with Respiratory Ventilation, Less than 24 Consecutive Hours, Continuous Positive Airway Pressure (ICD-10-PCS; 2020-11-04)
PROC: 5A09357 Assistance with Respiratory Ventilation, Less than 24 Consecutive Hours, Continuous Positive Airway Pressure (ICD-10-PCS; 2020-11-05)
PROC: 5A09357 Assistance with Respiratory Ventilation, Less than 24 Consecutive Hours, Continuous Positive Airway Pressure (ICD-10-PCS; 2020-11-06)
PROC: 5A09357 Assistance with Respiratory Ventilation, Less than 24 Consecutive Hours, Continuous Positive Airway Pressure (ICD-10-PCS; 2020-11-09)
PROC: 0UDB8ZZ Extraction of Endometrium, Via Natural or Artificial Opening Endoscopic (ICD-10-PCS; principal; 2020-11-20 10:30)
DX: A41.9 Sepsis, unspecified organism (principal); U07.1 COVID-19; J96.21 Acute and chronic respiratory failure with hypoxia; I50.23 Acute on chronic systolic (congestive) heart failure; I21.4 Non-ST elevation (NSTEMI) myocardial infarction; J96.22 Acute and chronic respiratory failure with hypercapnia; G92 Toxic encephalopathy; N17.0 Acute kidney failure with tubular necrosis; J12.82 Pneumonia due to coronavirus disease 2019; I42.9 Cardiomyopathy, unspecified; I13.0 Hypertensive heart and chronic kidney disease with heart failure and stage 1 through stage 4 chronic kidney disease, or unspecified chronic kidney disease; J44.0 Chronic obstructive pulmonary disease with (acute) lower respiratory infection; J98.11 Atelectasis; N39.0 Urinary tract infection, site not specified; K21.9 Gastro-esophageal reflux disease without esophagitis; F41.9 Anxiety disorder, unspecified; F25.9 Schizoaffective disorder, unspecified; G25.81 Restless legs syndrome; I48.0 Paroxysmal atrial fibrillation; M19.90 Unspecified osteoarthritis, unspecified site; E78.5 Hyperlipidemia, unspecified; F32.9 Major depressive disorder, single episode, unspecified; E03.9 Hypothyroidism, unspecified; D25.9 Leiomyoma of uterus, unspecified; D64.9 Anemia, unspecified; D69.6 Thrombocytopenia, unspecified; N18.2 Chronic kidney disease, stage 2 (mild); E11.22 Type 2 diabetes mellitus with diabetic chronic kidney disease; E11.649 Type 2 diabetes mellitus with hypoglycemia without coma; E66.9 Obesity, unspecified; E78.1 Pure hyperglyceridemia; E83.51 Hypocalcemia; E86.0 Dehydration; E87.5 Hyperkalemia; E87.6 Hypokalemia; K03.2 Erosion of teeth; L30.4 Erythema intertrigo; N95.0 Postmenopausal bleeding; Z68.32 Body mass index [BMI] 32.0-32.9, adult; Z88.8 Allergy status to other drugs, medicaments and biological substances; I25.2 Old myocardial infarction; Z79.4 Long term (current) use of insulin; Z79.51 Long term (current) use of inhaled steroids; Z79.899 Other long term (current) drug therapy; Z87.891 Personal history of nicotine dependence; Z95.0 Presence of cardiac pacemaker; Z83.3 Family history of diabetes mellitus
CPT/HCPCS: 36415; 36569; 36600; 70450; 71045; 71250; 76770; 76856; 80048; 80053; 80061; 80069; 80307; 81001; 82436; 82570; 82805; 82962; 83605; 83735; 83880; 84100; 84133; 84156; 84300; 84484; 85025; 85027; 85610; 86060; 86140; 87040; 87077; 87086; 87186; 87205; 87426; 87641; 87804; 88305; 93005; 94002; 94003; 94660; 94760; J0882; J1100; J1630; J1644; J1650; J1815; J1940; J2060; J2250; J2370; J2405; J2543; J2704; J3010; J3370; J3490; J7030; J7040; J7042; J7060; J7120; U0003; 92526-GN; 92610-GN; 97530-GO; 97530-GP; 97535-GO; G0378

== ENCOUNTER 2020-11-21 08:50 | Observation (INO) | payer MEDICAID ==
[~2020-11-21] VITALS: Ht 162.6 cm; Wt 90.9 kg
[~2020-11-21 08:50] MED LIST changes: +BUPR150T15 PO; +CLON0.2T PO; +FAMO20TA5 PO; +FOLI0.4T5 PO; +GUAI473L15 PO; +LORA0.5T96 PO; +MULT-121 PO; +PEG15DRO4 OS; +POLY17PO29 PO
--- NOTE | 2020-11-21 09:04 | ED.ADGEN ---
Past Medical History Past Medical History: A-Fib, Anxiety, Asthma, CHF, Constipation, Diabetes-Type II, GERD, Hypothyroid, Schizophrenia Additional Past Medical Histor: SCHIZOAFFECTIVE, RESTLESS LEG Past Surgical History: Pacemaker Additional Past Surgical Histo: Pacemaker/defib Smoking Status: Former Smoker Alcohol Use: None Drug Use: None General Adult EDM: Chief Complaint: MECHANICAL FALL HPI: HPI: Patient is a 60-year-old female who arrives via EMS after experiencing a fall just prior to arrival. Patient was reportedly reaching for something when she fell from her wheelchair. Patient does reside in a halfway and despite falling denies any pain or injury from the fall. Upon arrival to the emergency department the patient does appear to be sedated. The patient's medications include Klonopin however at this time I am not certain as to whether or not she has received this. She is a very poor historian and does not provide history otherwise. She does however deny any pain. She is awake, alert and nontoxic- appearing. Review of Systems: Review of Systems: Constitutional: Denies fever or chills. [] Eyes: Denies change in visual acuity. [] HENT: Denies nasal congestion or sore throat. [] Respiratory: Denies cough or shortness of breath. [] Cardiovascular: Denies chest pain or edema. [] GI: Denies abdominal pain, nausea, vomiting, bloody stools or diarrhea. [] : Denies dysuria. [] Musculoskeletal: Denies back pain or joint pain. [] Integument: Denies rash. [] Neurologic: Denies headache, focal weakness or sensory changes. [] Endocrine: Denies polyuria or polydipsia. [] Lymphatic: Denies swollen glands. [] Psychiatric: Denies depression or anxiety. [] Family History: Family History: Noncontributory Allergies: Allergies: Allergies Coded Allergies Type Severity Reaction Last Updated Verified lactose Allergy Intermediate 02/25/16 Yes lisinopril Allergy Intermediate 08/08/15 Yes Physical Exam: PE: Constitutional: Somnolent. Well developed, well nourished, no acute distress, non-toxic appearance. [] HENT: Normocephalic, atraumatic, bilateral external ears normal, oropharynx moist, no oral exudates, nose normal. [] Eyes: PERRLA, EOMI, conjunctiva normal, no discharge. [] Neck: Normal range of motion, no tenderness, supple, no stridor. [] Cardiovascular:Heart rate regular rhythm, no murmur [] Lungs & Thorax: Bilateral breath sounds clear to auscultation [] Abdomen: Bowel sounds normal, soft, no tenderness, no masses, no pulsatile masses. [] Skin: Warm, dry, no erythema, no rash. [] Back: No tenderness, no CVA tenderness. [] Extremities: No tenderness, no cyanosis, no clubbing, ROM intact, no edema. [] Neurologic: Somnolent. normal motor function, normal sensory function, no focal deficits noted. [] Psychologic: Affect normal, judgement normal, mood normal. [] Current Patient Data: Labs: Laboratory Tests Test 11/21/20 09:19 11/21/20 09:35 White Blood Count 9.9 x10^3/uL (4.0-11.0) Red Blood Count 2.56 x10^6/uL (3.50-5.40) L Hemoglobin 7.6 g/dL (12.0-15.5) L Hematocrit 24.0 % (36.0-47.0) L Mean Corpuscular Volume 94 fL (79-100) Mean Corpuscular Hemoglobin 30 pg (25-35) Mean Corpuscular Hemoglobin Concent 32 g/dL (31-37) Red Cell Distribution Width 16.1 % (11.5-14.5) H Platelet Count 178 x10^3/uL (140-400) Neutrophils (%) (Auto) 78 % (31-73) H Lymphocytes (%) (Auto) 14 % (24-48) L Monocytes (%) (Auto) 8 % (0-9) Eosinophils (%) (Auto) 0 % (0-3) Basophils (%) (Auto) 1 % (0-3) Neutrophils # (Auto) 7.7 x10^3/uL (1.8-7.7) Lymphocytes # (Auto) 1.4 x10^3/uL (1.0-4.8) Monocytes # (Auto) 0.7 x10^3/uL (0.0-1.1) Eosinophils # (Auto) 0.0 x10^3/uL (0.0-0.7) Basophils # (Auto) 0.1 x10^3/uL (0.0-0.2) Sodium Level 140 mmol/L (136-145) Potassium Level 4.4 mmol/L (3.5-5.1) Chloride Level 101 mmol/L (98-107) Carbon Dioxide Level 35 mmol/L (21-32) H Anion Gap 4 (6-14) L Blood Urea Nitrogen 19 mg/dL (7-20) Creatinine 3.5 mg/dL (0.6-1.0) H Estimated GFR (Cockcroft-Gault) 16.2 BUN/Creatinine Ratio 5 (6-20) L Glucose Level 97 mg/dL (70-99) Calcium Level 9.1 mg/dL (8.5-10.1) Total Bilirubin 0.2 mg/dL (0.2-1.0) Aspartate Amino Transferase (AST) 49 U/L (15-37) H Alanine Aminotransferase (ALT) 37 U/L (14-59) Alkaline Phosphatase 106 U/L (46-116) Troponin I Quantitative < 0.017 ng/mL (0.000-0.055) [id number]-Type Natriuretic Peptide 40808 pg/mL (0-124) H Total Protein 6.4 g/dL (6.4-8.2) Albumin 1.9 g/dL (3.4-5.0) L Albumin/Globulin Ratio 0.4 (1.0-1.7) L Urine Collection Type Unknown Urine Color Yellow Urine Clarity Clear Urine pH 6.5 (<5.0-8.0) Urine Specific [place] 1.020 (1.000-1.030) Urine Protein >=300 mg/dL (NEG-TRACE) Urine Glucose (UA) Negative mg/dL (NEG) Urine Ketones (Stick) Negative mg/dL (NEG) Urine Blood Negative (NEG) Urine Nitrite Negative (NEG) Urine Bilirubin Negative (NEG) Urine Urobilinogen Dipstick 0.2 mg/dL (0.2 mg/dL) Urine Leukocyte Esterase Negative (NEG) Urine RBC 0 /HPF (0-2) Urine WBC 1-4 /HPF (0-4) Urine Squamous Epithelial Cells Few /LPF Urine Transitional Epithelial Cells Few /LPF Urine Renal Epithelial Cells Occ /LPF Urine Bacteria 0 /HPF (0-FEW) Urine Hyaline Casts Occasional /HPF Urine Mucus Slight /LPF Urine Opiates Screen Neg (NEG) Urine Methadone Screen Neg (NEG) Urine Barbiturates Neg (NEG) Urine Phencyclidine Screen Neg (NEG) Urine Amphetamine/Methamphetamine Neg (NEG) Urine Benzodiazepines Screen Neg (NEG) Urine Cocaine Screen Neg (NEG) Urine Cannabinoids Screen Neg (NEG) Urine Ethyl Alcohol Neg (NEG) Laboratory Tests 11/21/20 09:19 Laboratory Tests 11/21/20 09:19 Vital Signs: Vital Signs Date Time Temp Pulse Resp B/P (MAP) Pulse Ox O2 Delivery O2 Flow Rate FiO2 11/21/20 08:52 97.4 72 20 130/69 (89) 100 Nasal Cannula 3.0 97.4 EKG: EKG: [] EKG was obtained at 0910 hrs. A sinus rhythm was revealed with a ventricular rate of 72 bpm with abnormal right axis deviation. There are instances of ST/T wave morphology change however these do appear to be old in nature in the inferior and lateral leads. Intervals are otherwise normal. Heart Score: Risk Factors: Risk Factors: DM, Current or recent (<one month) smoker, HTN, HLP, family history of CAD, obesity. Risk Scores: Score 0 - 3: 2.5% MACE over next 6 weeks - Discharge Home Score 4 - 6: 20.3% MACE over next 6 weeks - Admit for Clinical Observation Score 7 - 10: 72.7% MACE over next 6 weeks - Early Invasive Strategies Radiology/Procedures: Radiology/Procedures: [] Impression: [facility] [address] [place] [address] IMAGING REPORT Signed PATIENT: MARCOS CLIFTON ACCOUNT: [id number] : 1960 LOCATION: ER AGE: 60 SEX: F EXAM STATUS: REG ER ORD. PHYSICIAN: ROB RAY DO REASON: Trauma/altered mental status PROCEDURE: CT HEAD WO CONTRAST CT HEAD/BRAIN WO History: Reason: Trauma/altered mental status / Spl. Instructions: / History: Comparison: October 30, 2020 Technique: Noncontrast CT imaging was performed of the head. Exposure: One or more of the following individualized dose reduction techniques were utilized for this examination: 1. Automated exposure control 2. Adjustment of the mA and/or kV according to patient size 3. Use of iterative reconstruction technique. Findings: No intracranial hemorrhage. No mass effect. No hydrocephalus. Mild brain parenchymal volume loss. Mild foci of decreased attenuation within the hemispheric white matter, most often due to chronic microvascular ischemia. Imaged orbits are unremarkable. Partial opacification of the right frontal sinus. Mastoid air cells are clear. Chronically unfused C1 anterior and posterior fractures. Impression: 1. No acute intracranial abnormality. Electronically signed by: Wilfredo Nagel DO (11/21/2020 10:25 AM) [id number] DICTATED and SIGNED BY: WILFREDO NAGEL DO DATE: 11/21/20 [id number] [facility] [address] [place] [address] IMAGING REPORT Signed PATIENT: MARCOS CLIFTON ACCOUNT: [id number] : 1960 LOCATION: ER AGE: 60 SEX: F EXAM STATUS: REG ER ORD. PHYSICIAN: ROB RAY DO REASON: Trauma, FALL OUT OF WHEELCHAIR, AMS PROCEDURE: PORTABLE CHEST 1V XR CHEST 1V CLINICAL INDICATIONS: Trauma, FALL OUT OF WHEELCHAIR, altered mental status COMPARISON: November 14, 2020. Findings: Persistent unchanged left-sided pleural effusion and associated compressive atelectasis or consolidative left lung base infiltrate is seen which is unchanged. There is a small right-sided pleural effusion with mild right lung base atelectasis. No pneumothorax is seen. 3-lead pacemaker is again evident. Cardiomegaly is seen which is unchanged. Mediastinum is stable. Pulmonary vasculature is unchanged. No obvious deformity of the rib cage or either shoulder girdle is seen. The left lateral lower rib cage is obscured by overlying pacemaker device. IMPRESSION: Stable left-sided pleural effusion and associated compressive atel ectasis or left lung base consolidative infiltrate. New small right-sided pleural effusion with associated mild right lung base atelectasis. No pneumothorax is seen. Electronically signed by: Amor Pete MD (11/21/2020 9:45 AM) [id number] DICTATED and SIGNED BY: AMOR PETE MD DATE: 11/21/20 [id number] Course & Med Decision Making: Course & Med Decision Making Pertinent Labs and Imaging studies reviewed. (See chart for details) [] Lisa Disclaimer: Lisa Disclaimer: This electronic medical record was generated, in whole or in part, using a voice recognition dictation system. Departure Departure Referrals: [facility] (PCP) ROB RAY DO Nov 21, 2020 09:04
[2020-11-21 09:35] LABS: BASO # 0.1 x10^3/uL (0.0-0.2); BASO % 1 % (0-3); EOS % 0 % (0-3); HEMOGLOBIN 7.6 g/dL (12.0-15.5); LYMPH # 1.4 x10^3/uL (1.0-4.8); LYMPH % 14 % (24-48); MEAN CORPUSCULAR HEMOGLOBIN 30 pg (25-35); MEAN CORPUSCULAR HGB CONC 32 g/dL (31-37); MEAN CORPUSCULAR VOLUME 94 fL (79-100); MONO # 0.7 x10^3/uL (0.0-1.1); MONO % 8 % (0-9); NEUT # 7.7 x10^3/uL (1.8-7.7); NEUT % 78 % (31-73); PLATELET COUNT 178 x10^3/uL (140-400); RED BLOOD COUNT 2.56 x10^6/uL (3.50-5.40); RED CELL DISTRIBUTION WIDTH 16.1 % (11.5-14.5); WHITE BLOOD COUNT 9.9 x10^3/uL (4.0-11.0)
[2020-11-21 09:46] LABS: CALCIUM 9.1 mg/dL (8.5-10.1); CREATININE 3.5 mg/dL (0.6-1.0); GFR 16.2; POTASSIUM 4.4 mmol/L (3.5-5.1)
--- NOTE | 2020-11-21 09:47 | RAD ---
XR CHEST 1V CLINICAL INDICATIONS: Trauma, FALL OUT OF WHEELCHAIR, altered mental status COMPARISON: November 14, 2020. Findings: Persistent unchanged left-sided pleural effusion and associated compressive atelectasis or consolidative left lung base infiltrate is seen which is unchanged. There is a small right-sided pleu ral effusion with mild right lung base atelectasis. No pneumothorax is seen. 3-lead pacemaker is agai n evident. Cardiomegaly is seen which is unchanged. Mediastinum is stable. Pulmonary vasculature is u nchanged. No obvious deformity of the rib cage or either shoulder girdle is seen. The left lateral lo wer rib cage is obscured by overlying pacemaker device. IMPRESSION: Stable left-sided pleural effusion and associated compressive atelectasis or left lung ba se consolidative infiltrate. New small right-sided pleural effusion with associated mild right lung base atelectasis. No pneumothorax is seen. Electronically signed by: Ubaldo Pete MD (11/21/2020 9:45 AM) [id number]
[2020-11-21 09:52] LABS: ALBUMIN 1.9 g/dL (3.4-5.0); ALBUMIN/GLOBULIN RATIO 0.4 (1.0-1.7); TOTAL BILIRUBIN 0.2 mg/dL (0.2-1.0); TOTAL PROTEIN 6.4 g/dL (6.4-8.2)
[2020-11-21 10:03] LABS: BILIRUBIN,URINE NEGATIVE (NEG); CLARITY,URINE CLEAR; COLOR,URINE YELLOW; NITRITE,URINE NEGATIVE (NEG); PH,URINE 6.5 (<5.0-8.0); PROTEIN,URINE >=300 mg/dL (NEG-TRACE); UROBILINOGEN,URINE 0.2 mg/dL (0.2 mg/dL)
[2020-11-21 10:23] LABS: BACTERIA,URINE 0 /HPF (0-FEW); HYALINE CASTS, URINE OCCASIONAL /HPF; RBC,URINE 0 /HPF (0-2)
--- NOTE | 2020-11-21 10:27 | RAD ---
CT HEAD/BRAIN WO History: Reason: Trauma/altered mental status / Spl. Instructions: / History: Comparison: October 30, 2020 Technique: Noncontrast CT imaging was performed of the head. Exposure: One or more of the following individualized dose reduction techniques were utilized for thi s examination: 1. Automated exposure control 2. Adjustment of the mA and/or kV according to patient size 3. Use of iterative reconstruction technique. Findings: No intracranial hemorrhage. No mass effect. No hydrocephalus. Mild brain parenchymal volume loss. Mi ld foci of decreased attenuation within the hemispheric white matter, most often due to chronic micro vascular ischemia. Imaged orbits are unremarkable. Partial opacification of the right frontal sinus. Mastoid air cells a re clear. Chronically unfused C1 anterior and posterior fractures. Impression: 1. No acute intracranial abnormality. Electronically signed by: Wilfredo Nagel DO (11/21/2020 10:25 AM) [id number]
[2020-11-21 10:28] LABS: AMPHETAMINE/METHAMPHETAMINE NEG (NEG); BARBITURATES NEG (NEG); BENZODIAZEPINES NEG (NEG); CANNABINOIDS NEG (NEG); COCAINE NEG (NEG); METHADONE NEG (NEG); OPIATES NEG (NEG); PHENCYCLIDINE NEG (NEG)
[2020-11-21 12:32] LABS: HEMATOCRIT 23.5 % (36.0-47.0); HEMOGLOBIN 7.5 g/dL (12.0-15.5); RED BLOOD COUNT 2.49 x10^6/uL (3.50-5.40); RED CELL DISTRIBUTION WIDTH 16.2 % (11.5-14.5); WHITE BLOOD COUNT 10.6 x10^3/uL (4.0-11.0)
[2020-11-21] MEDS ORDERED: ONDANSETRON PF 4 MG/2 ML VIAL. IV PRN (13:00)
--- NOTE | 2020-11-21 13:32 | PDOC1 ---
History and Physical Date of Admission Date of Admission DATE: 11/21/20 TIME: 13:31 Identification/Chief Complaint Chief Complaint Fall Source Source: Chart review, Patient History of Present Illness History of Present Illness Patient 60-year-old intermediate resident with past medical history of schizophrenia, who presents to the ER after a fall at her intermediate today. Patient was just discharged from our service yesterday after prolonged stay secondary to COVID-19 pneumonia, acute respiratory failure, acute renal insufficiency, and postmenopausal bleeding. At baseline she feels on 3 to 4 L nasal cannula. Patient reportedly had a fall from her wheelchair today, and was sent to the ER for evaluation. Upon arrival patient appears lethargic, but denies any pain. Chest x-ray obtained on admission showed stable left-sided pleural effusion but new small right-sided pleural effusion. She is not on any blood thinners. However, due to precipitous drop in hemoglobin, new small right pleural effusion, and recent fall, will admit patient for observation overnight. Past Medical History Cardiovascular: CHF, HTN, Hyperlipidemia, Other Pulmonary: Asthma CENTRAL NERVOUS SYSTEM: Other GI: GERD, Other Heme/Onc: No pertinent hx Hepatobiliary: No pertinent hx Psych: Anxiety, Depression, Schizophrenia Musculoskeletal: Osteoarthritis, Other Rheumatologic: No pertinent hx Infectious disease: No pertinent hx Renal/: Chronic renal insuff, UTI Endocrine: Diabetes, Hypothyroidism Past Surgical History Past Surgical History: Pacemaker Family History Family History: Family History Unknown Social History Smoke: No ALCOHOL: none Drugs: None Current Medications Current Medications Current Medications Ondansetron HCl (Zofran) 4 mg PRN Q8HRS PRN IV NAUSEA/VOMITING; Start 11/21/20 at 13:00; Stop 11/22/20 at 12:59 Active Scripts Active Lomotil Tablet (Diphenoxylate Hcl/Atropine) 1 Each Tablet 1 Tab PO TID 3 Days Dicyclomine Hcl 20 Mg Tablet 1 Tab PO TID 10 Days Culturelle (Lactobacillus Rhamnosus Gg) 1 Each Cap.sprink 1 Cap PO BID 14 Days Reported Wellbutrin Xl (Bupropion Hcl) 150 Mg Tab.er.24h 150 Mg PO DAILY Artificial Tears Drops (Peg 400/Hypromellose/Glycerin) 15 Ml Drops 1 Drop OS QID 30 Days Folic Acid 0.4 Mg Tablet 0.4 Mg PO DAILY Duoneb 0.5-3(2.5) Mg/3 Ml (Albuterol/Ipratropium) 3 Ml Ampul.neb 3 Ml NEB Q4HRS Clonidine Hcl 0.2 Mg Tablet 0.2 Mg PO TID Ativan (Lorazepam) 0.5 Mg Tablet 0.5 Mg PO Q8HRS PRN Ibuprofen 400 Mg Tablet 400 Mg PO PRN Q6HRS PRN Guaifenesin Ac Cough Syrup (Guaifenesin/Codeine Phosphate) 473 Ml Liquid 10 Ml PO PRN Q4-6HRS PRN MDD 60 Milliliter(s) 4 Days Multiple Vitamins (Multivitamin) 1 Each Tablet 1 Tab PO DAILY 30 Days Miralax (Polyethylene Glycol 3350) 17 Gm Powd.pack 1 Packet PO DAILY 2 Days dissolve in water Famotidine 20 Mg Tablet 20 Mg PO HS Zofran (Ondansetron Hcl) 4 Mg Tablet 4 Mg PO Q8HRS PRN Tramadol Hcl 50 Mg Tablet 50 Mg PO Q6HRS PRN Tears Again (Polyvinyl Alcohol) 15 Ml Drops 2 Drop EACHEYE Q4HRS 30 Days Polyvinyl Alcohol 15 Ml Drops 2 Drop EACHEYE Q4HRS 30 Days Ropinirole Hcl 1 Mg Tablet 1 Mg PO BID B-Complex Plus Vitamin C (B Complex With Vitamin C) 1 Each Tablet 1 Each PO DAILY Magnesium Oxide 400 Mg Tablet 400 Mg PO DAILY Loratadine 10 Mg Tablet 10 Mg PO DAILY Humalog (Insulin Lispro) 100 Unit/1 Ml Vial 100 Unit SQ BIDWMEALS 70 - 150 0 units 151 - 200 0 units 201 - 250 2 units 251 - 300 3 units 301 - 349 4 units if FSBS is under 70 or 350 and over call MD [guaifenesin Syrup] 10 Ml PO Q4HRS PRN Coreg (Carvedilol) 25 Mg Tablet 50 Mg PO BIDWMEALS Peridex (Chlorhexidine Gluconate) 15 Ml Mouthwash 15 Ml PO BID 30 Days Swish in mouth for 30 seconds then spit out Calcium Carbonate 500 Mg Tablet 500 Mg PO Q4HRS Atorvastatin Calcium 10 Mg Tablet 10 Mg PO HS Acetaminophen 325 Mg Tablet 650 Mg PO Q6HRS Metformin Hcl 500 Mg Tablet 250 Mg PO BIDWMEALS Imodium A-D (Loperamide HCl) 2 Mg Capsule 2 Mg PO DAILY PRN Risperidone 0.5 Mg Tablet 0.5 Mg PO DAILY Risperidone 1 Mg Tablet 1 Tab PO QHS Levothyroxine Sodium 112 Mcg Tablet 1 Tab PO DAILY Advair 500-50 Diskus (Fluticasone/Salmeterol) 1 Each Disk.w.dev 1 Puff IH BID Nystatin 15 Gm Powder 1 Scott TP PRN BID PRN Clonazepam (Clonazepam) 0.5 Mg Tablet 1 Tab PO BID Gas-X (Simethicone) 80 Mg Tab.chew 160 Mg PO Q2HR PRN Gabapentin (Gabapentin) 100 Mg Capsule 100 Mg PO TID Allergies Allergies: Coded Allergies: lactose (Verified Allergy, Intermediate, 02/25/16) lisinopril (Verified Allergy, Intermediate, 08/08/15) ROS Review of System GENERAL: No history of weight change, weakness or fevers. SKIN: No bruising, hair changes or rashes. EYES: No blurred, double or loss of vision. NOSE AND THROAT: No history of nosebleeds, hoarseness or sore throat. HEART: Denies chest pain, denies palpitations. LUNGS: Denies cough, hemoptysis, wheezing or shortness of breath. GASTROINTESTINAL: Denies nausea, vomiting, abdominal pain. GENITOURINARY: Denies dysuria, frequency, urgency, hematuria. NEUROLOGIC: Denies history of numbness, tingling, tremor or weakness. PSYCHIATRIC: Denies anxiety, denies depression. ENDOCRINE: No history of heat or cold intolerance, polyuria or polydipsia. EXTREMITIES: Denies muscle weakness, joint pain, pain on walking or stiffness. Physical Exam Physical Exam General: Alert, Cooperative, No acute distress HEENT: PERRLA, EOMI Lungs: Bibasilar Rales, Normal air movement Heart: RRR, no murmurs Cardiovascular: S1, S2 Abdomen: Normal bowel sounds, Soft, No tenderness Extremities: No clubbing, No cyanosis Skin: No rashes, No significant lesion Neuro: Normal speech, Normal tone, Sensation intact Psych/Mental Status: Lethargic, confused Vitals Vitals Vital Signs Date Time Temp Pulse Resp B/P (MAP) Pulse Ox O2 Delivery O2 Flow Rate FiO2 11/21/20 08:52 97.4 72 20 130/69 (89) 100 Nasal Cannula 3.0 97.4 Labs Labs Laboratory Tests Test 11/21/20 09:19 11/21/20 09:35 11/21/20 12:10 White Blood Count 9.9 x10^3/uL (4.0-11.0) 10.6 x10^3/uL (4.0-11.0) Red Blood Count 2.56 x10^6/uL (3.50-5.40) 2.49 x10^6/uL (3.50-5.40) Hemoglobin 7.6 g/dL (12.0-15.5) 7.5 g/dL (12.0-15.5) Hematocrit 24.0 % (36.0-47.0) 23.5 % (36.0-47.0) Mean Corpuscular Volume 94 fL (79-100) 94 fL (79-100) Mean Corpuscular Hemoglobin 30 pg (25-35) 30 pg (25-35) Mean Corpuscular Hemoglobin Concent 32 g/dL (31-37) 32 g/dL (31-37) Red Cell Distribution Width 16.1 % (11.5-14.5) 16.2 % (11.5-14.5) Platelet Count 178 x10^3/uL (140-400) 138 x10^3/uL (140-400) Neutrophils (%) (Auto) 78 % (31-73) Lymphocytes (%) (Auto) 14 % (24-48) Monocytes (%) (Auto) 8 % (0-9) Eosinophils (%) (Auto) 0 % (0-3) Basophils (%) (Auto) 1 % (0-3) Neutrophils # (Auto) 7.7 x10^3/uL (1.8-7.7) Lymphocytes # (Auto) 1.4 x10^3/uL (1.0-4.8) Monocytes # (Auto) 0.7 x10^3/uL (0.0-1.1) Eosinophils # (Auto) 0.0 x10^3/uL (0.0-0.7) Basophils # (Auto) 0.1 x10^3/uL (0.0-0.2) Sodium Level 140 mmol/L (136-145) Potassium Level 4.4 mmol/L (3.5-5.1) Chloride Level 101 mmol/L (98-107) Carbon Dioxide Level 35 mmol/L (21-32) Anion Gap 4 (6-14) Blood Urea Nitrogen 19 mg/dL (7-20) Creatinine 3.5 mg/dL (0.6-1.0) Estimated GFR (Cockcroft-Gault) 16.2 BUN/Creatinine Ratio 5 (6-20) Glucose Level 97 mg/dL (70-99) Calcium Level 9.1 mg/dL (8.5-10.1) Total Bilirubin 0.2 mg/dL (0.2-1.0) Aspartate Amino Transf (AST/SGOT) 49 U/L (15-37) Alanine Aminotransferase (ALT/SGPT) 37 U/L (14-59) Alkaline Phosphatase 106 U/L (46-116) Troponin I Quantitative < 0.017 ng/mL (0.000-0.055) DM-Qff-W-Type Natriuretic Peptide 25261 pg/mL (0-124) Total Protein 6.4 g/dL (6.4-8.2) Albumin 1.9 g/dL (3.4-5.0) Albumin/Globulin Ratio 0.4 (1.0-1.7) Urine Collection Type Unknown Urine Color Yellow Urine Clarity Clear Urine pH 6.5 (<5.0-8.0) Urine Specific Patriot 1.020 (1.000-1.030) Urine Protein >=300 mg/dL (NEG-TRACE) Urine Glucose (UA) Negative mg/dL (NEG) Urine Ketones (Stick) Negative mg/dL (NEG) Urine Blood Negative (NEG) Urine Nitrite Negative (NEG) Urine Bilirubin Negative (NEG) Urine Urobilinogen Dipstick 0.2 mg/dL (0.2 mg/dL) Urine Leukocyte Esterase Negative (NEG) Urine RBC 0 /HPF (0-2) Urine WBC 1-4 /HPF (0-4) Urine Squamous Epithelial Cells Few /LPF Urine Transitional Epithelial Cells Few /LPF Urine Renal Epithelial Cells Occ /LPF Urine Bacteria 0 /HPF (0-FEW) Urine Hyaline Casts Occasional /HPF Urine Mucus Slight /LPF Urine Opiates Screen Neg (NEG) Urine Methadone Screen Neg (NEG) Urine Barbiturates Neg (NEG) Urine Phencyclidine Screen Neg (NEG) Urine Amphetamine/Methamphetamine Neg (NEG) Urine Benzodiazepines Screen Neg (NEG) Urine Cocaine Screen Neg (NEG) Urine Cannabinoids Screen Neg (NEG) Urine Ethyl Alcohol Neg (NEG) Laboratory Tests Test 11/21/20 09:19 1/7/21 09:35 11/21/20 12:10 White Blood Count 9.9 x10^3/uL (4.0-11.0) 10.6 x10^3/uL (4.0-11.0) Red Blood Count 2.56 x10^6/uL (3.50-5.40) 2.49 x10^6/uL (3.50-5.40) Hemoglobin 7.6 g/dL (12.0-15.5) 7.5 g/dL (12.0-15.5) Hematocrit 24.0 % (36.0-47.0) 23.5 % (36.0-47.0) Mean Corpuscular Volume 94 fL (79-100) 94 fL (79-100) Mean Corpuscular Hemoglobin 30 pg (25-35) 30 pg (25-35) Mean Corpuscular Hemoglobin Concent 32 g/dL (31-37) 32 g/dL (31-37) Red Cell Distribution Width 16.1 % (11.5-14.5) 16.2 % (11.5-14.5) Platelet Count 178 x10^3/uL (140-400) 138 x10^3/uL (140-400) Neutrophils (%) (Auto) 78 % (31-73) Lymphocytes (%) (Auto) 14 % (24-48) Monocytes (%) (Auto) 8 % (0-9) Eosinophils (%) (Auto) 0 % (0-3) Basophils (%) (Auto) 1 % (0-3) Neutrophils # (Auto) 7.7 x10^3/uL (1.8-7.7) Lymphocytes # (Auto) 1.4 x10^3/uL (1.0-4.8) Monocytes # (Auto) 0.7 x10^3/uL (0.0-1.1) Eosinophils # (Auto) 0.0 x10^3/uL (0.0-0.7) Basophils # (Auto) 0.1 x10^3/uL (0.0-0.2) Sodium Level 140 mmol/L (136-145) Potassium Level 4.4 mmol/L (3.5-5.1) Chloride Level 101 mmol/L (98-107) Carbon Dioxide Level 35 mmol/L (21-32) Anion Gap 4 (6-14) Blood Urea Nitrogen 19 mg/dL (7-20) Creatinine 3.5 mg/dL (0.6-1.0) Estimated GFR (Cockcroft-Gault) 16.2 BUN/Creatinine Ratio 5 (6-20) Glucose Level 97 mg/dL (70-99) Calcium Level 9.1 mg/dL (8.5-10.1) Total Bilirubin 0.2 mg/dL (0.2-1.0) Aspartate Amino Transf (AST/SGOT) 49 U/L (15-37) Alanine Aminotransferase (ALT/SGPT) 37 U/L (14-59) Alkaline Phosphatase 106 U/L (46-116) Troponin I Quantitative < 0.017 ng/mL (0.000-0.055) PC-Neh-A-Type Natriuretic Peptide 84394 pg/mL (0-124) Total Protein 6.4 g/dL (6.4-8.2) Albumin 1.9 g/dL (3.4-5.0) Albumin/Globulin Ratio 0.4 (1.0-1.7) Urine Collection Type Unknown Urine Color Yellow Urine Clarity Clear Urine pH 6.5 (<5.0-8.0) Urine Specific Patriot 1.020 (1.000-1.030) Urine Protein >=300 mg/dL (NEG-TRACE) Urine Glucose (UA) Negative mg/dL (NEG) Urine Ketones (Stick) Negative mg/dL (NEG) Urine Blood Negative (NEG) Urine Nitrite Negative (NEG) Urine Bilirubin Negative (NEG) Urine Urobilinogen Dipstick 0.2 mg/dL (0.2 mg/dL) Urine Leukocyte Esterase Negative (NEG) Urine RBC 0 /HPF (0-2) Urine WBC 1-4 /HPF (0-4) Urine Squamous Epithelial Cells Few /LPF Urine Transitional Epithelial Cells Few /LPF Urine Renal Epithelial Cells Occ /LPF Urine Bacteria 0 /HPF (0-FEW) Urine Hyaline Casts Occasional /HPF Urine Mucus Slight /LPF Urine Opiates Screen Neg (NEG) Urine Methadone Screen Neg (NEG) Urine Barbiturates Neg (NEG) Urine Phencyclidine Screen Neg (NEG) Urine Amphetamine/Methamphetamine Neg (NEG) Urine Benzodiazepines Screen Neg (NEG) Urine Cocaine Screen Neg (NEG) Urine Cannabinoids Screen Neg (NEG) Urine Ethyl Alcohol Neg (NEG) Images Images XR CHEST 1V CLINICAL INDICATIONS: Trauma, FALL OUT OF WHEELCHAIR, altered mental status COMPARISON: November 14, 2020. Findings: Persistent unchanged left-sided pleural effusion and associated compressive atelectasis or consolidative left lung base infiltrate is seen which is unchanged. There is a small right-sided pleural effusion with mild right lung base atelectasis. No pneumothorax is seen. 3-lead pacemaker is again evident. Cardiomegaly is seen which is unchanged. Mediastinum is stable. Pulmonary vasculature is unchanged. No obvious deformity of the rib cage or either shoulder girdle is seen. The left lateral lower rib cage is obscured by overlying pacemaker device. IMPRESSION: Stable left-sided pleural effusion and associated compressive atelectasis or left lung base consolidative infiltrate. New small right-sided pleural effusion with associated mild right lung base atelectasis. No pneumothorax is seen. CT HEAD/BRAIN WO History: Reason: Trauma/altered mental status / Spl. Instructions: / History: Comparison: October 30, 2020 Technique: Noncontrast CT imaging was performed of the head. Exposure: One or more of the following individualized dose reduction techniques were utilized for this examination: 1. Automated exposure control 2. Adjustment of the mA and/or kV according to patient size 3. Use of iterative reconstruction technique. Findings: No intracranial hemorrhage. No mass effect. No hydrocephalus. Mild brain parenchymal volume loss. Mild foci of decreased attenuation within the hemispheric white matter, most often due to chronic microvascular ischemia. Imaged orbits are unremarkable. Partial opacification of the right frontal sinus. Mastoid air cells are clear. Chronically unfused C1 anterior and posterior fractures. Impression: 1. No acute intracranial abnormality. VTE Prophylaxis Ordered VTE Prophylaxis Devices: Yes VTE Pharmacological Prophylaxi: No Assessment/Plan Assessment/Plan COVID-19 Acute on chronic congestive heart failure New right pleural effusion Anemia secondary to postmenopausal bleeding Severe malnutrition Plan: Patient had D&C performed yesterday at this facility; most recent documented hemoglobin on 11/18 was 8.0, and today hemoglobin is 7.5. We will continue diuresis for congestive heart failure She is on aspirin, but this medication has been stopped for the past few days; will monitor patient overnight and discharge to her intermediate tomorrow She has outpatient renal biopsy scheduled once she has been off aspirin 5-7 days Resume home medications FEN - Cardiac diet PPX - SCDs FULL CODE Dispo - observation for above Justifications for Admission Other Justification STONEY TILLMAN MD Nov 21, 2020 13:32
[2020-11-21] MEDS ORDERED: ONDANSETRON PF 4 MG/2 ML VIAL. IVP PRN (14:00)
[2020-11-21] MEDS ORDERED: CALCIUM CARBONATE 500 MG TAB.CHEW PO PRN (14:00)
[2020-11-21] MEDS ORDERED: ACETAMINOPHEN 325 MG TABLET. PO PRN (14:00)
[2020-11-21] MEDS ORDERED: BISACODYL 10 MG SUPP.RECT. PR PRN (14:00)
[2020-11-21] MEDS ORDERED: ZOLPIDEM 5 MG TABLET. PO PRN (14:00)
[2020-11-21] MEDS ORDERED: MAG HYDROX/ALUMINUM HYD/SIMETH 30 ML ORAL.SUSP PO PRN (14:00)
[2020-11-21] MEDS ORDERED: MAGNESIUM HYDROXIDE 2,400 MG/30 ML ORAL.SUSP. PO PRN (14:00)
[2020-11-21 14:40] VITALS: BP 135/68
[2020-11-21 19:00] VITALS: BP 116/58
[2020-11-21 23:00] VITALS: BP 116/65
[2020-11-22 03:00] VITALS: BP 114/60
[2020-11-22 07:00] VITALS: BP 136/74
[2020-11-22 11:00] VITALS: BP 152/82
--- NOTE | 2020-11-22 11:23 | PDOC ---
[employer] PROGRESS NOTE Date of Service DOS: DATE: 11/22/20 TIME: 11:17 Chief Complaint Chief Complaint A/P: Fall - ct head negative, no other pain complaints, no fracture CHF s/p AICD not tolerant of BB, allergic to IZZY/ARB. 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 Encephalopathy - chronic due to schizophrenia Schizophrenia - stable Hypertension. Obesity COVID positive - 10/30/2020, still positive JACKIE- Suspect ATN- no improvement , UA No Micr hematuria - Renal Bx ordered , per nursing report IR unable to at this time and recommned holding for 5-7 days and they are planning to schedule as OP Supportive care , strict I/O ,avoid nephrotoxins Anemia - Hgb dropping, postmenopausal bleeding , D and C 11/20/2019, stable now Proteinuria- Nephrotic, No Micr hematuria , No WBC's or cast CKD stage 2/3 Cardiomyopathy with EF 45% s/p AICD History of Present Illness History of Present Illness Ms Mulligan is a 60 yo F w/ PMHx schizoaffective disorder, CHF with AICD in place, HLD, afib, depression with anxiety, HTN who returns to the hospital after a fall at her senior living 11/21/2020. Patient was just discharged the day prior after prolonged stay secondary to COVID-19 pneumonia (tested positive on 10/30/2020 - still positive on 11/21/20), acute respiratory failure, acute renal insufficiency, and postmenopausal bleeding s/p D&C. At baseline she feels on 3 to 4 L nasal cannula, stays in [facility] SN[facility]. Patient reportedly had a fall from her wheelchair, and was sent to the ER for evaluation. Feeling improved. CT head negative. No pain complaints. Stable on home O2. Eating well. No concerns. Imaging, prior hospital stay reviewed. Vitals/I&O Vitals/I&O: Vital Signs Date Time Temp Pulse Resp B/P (MAP) Pulse Ox O2 Delivery O2 Flow Rate FiO2 11/22/20 08:00 3.0 11/22/20 07:00 96.9 75 13 136/74 (94) 99 Nasal Cannula 96.9 I & O 11/21/20 11/21/20 11/22/20 14:59 22:59 06:59 Intake Total 0 ml 240 ml Balance 0 ml 240 ml Physical Exam General: Alert, Cooperative Lungs: Clear Labs Labs: Laboratory Tests Test 11/21/20 12:10 11/21/20 12:56 White Blood Count 10.6 x10^3/uL (4.0-11.0) Red Blood Count 2.49 x10^6/uL (3.50-5.40) Hemoglobin 7.5 g/dL (12.0-15.5) Hematocrit 23.5 % (36.0-47.0) Mean Corpuscular Volume 94 fL (79-100) Mean Corpuscular Hemoglobin 30 pg (25-35) Mean Corpuscular Hemoglobin Concent 32 g/dL (31-37) Red Cell Distribution Width 16.2 % (11.5-14.5) Platelet Count 138 x10^3/uL (140-400) Coronavirus (PCR) Detected (Not Detected) Assessment and Plan Assessmemt and Plan Problems Medical Problems: (1) Anemia Status: Acute (2) CHF (congestive heart failure) Status: Acute (3) Person under investigation for COVID-19 Status: Acute Comment Review of Relevant I have reviewed the following items lucas (where applicable) has been applied. Medications: Current Medications Medications (Trade) Dose Ordered Sig/Eber Route PRN Reason Start Time Stop Time Status Last Admin Dose Admin Zolpidem Tartrate (Ambien) 5 mg PRN QHS PRN PO INSOMNIA, MAY REPEAT IN 1HR 11/21/20 14:00 11/21/20 21:51 Justifications for Admission Other Justification Fall, new right pleural effusion HAMILTON PEREZ MD Nov 22, 2020 11:23
--- NOTE | 2020-11-22 13:15 | SNU/HH DC ---
DISCHARGE ORDERS DISCHARGE INFORMATION: DISCHARGE DATE: Nov 22, 2020 FINAL DIAGNOSIS Problems Medical Problems: (1) Anemia Status: Acute (2) CHF (congestive heart failure) Status: Acute (3) Person under investigation for COVID-19 Status: Acute CONDITION ON DISCHARGE: Stable CODE STATUS: Code Status: Full POST DISCHARGE ORDERS: ACTIVITY ORDERS: No restrictions WEIGHT BEARING STATUS: No restrictions DIET AFTER DISCHARGE: Cardiac WOUND/INCISION CARE: No wound care needed CHECKS AFTER DISCHARGE: CHECKS AFTER DISCHARGE: Check blood press - daily, Check blood sugar, ac/hs TREATMENT/EQUIPMENT ORDERS: ADAPTIVE EQUIPMENT NEEDED: None RESPIRATORY EQUIPMENT NEEDED: Oxygen, BiPAP DISCHARGE MEDICATIONS: Home Meds Active Scripts Doxycycline Hyclate (DOXYCYCLINE HYCLATE) 100 Mg Capsule, 1 CAP PO BID for pneumonia for 7 Days, #14 CAP Prov:HAMILTON PEREZ MD 11/22/20 Diphenoxylate Hcl/Atropine (LOMOTIL TABLET) 1 Each Tablet, 1 TAB PO TID for diarrhea for 3 Days, #9 TAB Prov:MARY ELLEN FREEMAN MD 10/28/20 Dicyclomine Hcl (DICYCLOMINE HCL) 20 Mg Tablet, 1 TAB PO TID for diarrhea for 10 Days, #30 TAB 1 Refill Prov:MARY ELLEN FREEMAN MD 10/28/20 Lactobacillus Rhamnosus Gg (CULTURELLE) 1 Each Cap.sprink, 1 CAP PO BID for COPD for 14 Days, #28 CAP Prov:CRISPIN SCHROEDER MD 12/04/19 Reported Medications Bupropion Hcl (WELLBUTRIN XL) 150 Mg Tab.er.24h, 150 MG PO DAILY for major depressive disorder, TAB.SR 10/31/20 Peg 400/Hypromellose/Glycerin (ARTIFICIAL TEARS DROPS) 15 Ml Drops, 1 DROP OS QID for irritation for 30 Days, #15 ML 0 Refills 10/31/20 Folic Acid (FOLIC ACID) 0.4 Mg Tablet, 0.4 MG PO DAILY for SUPPLEMENT, TAB 10/31/20 Ipratropium/Albuterol Sulfate (DUONEB 0.5-3(2.5) MG/3 ML) 3 Ml Ampul.neb, 3 ML NEB Q4HRS for sob, EACH 10/31/20 Clonidine Hcl (CLONIDINE HCL) 0.2 Mg Tablet, 0.2 MG PO TID for related to heart failure, TAB 10/31/20 Multivitamin (MULTIPLE VITAMINS) 1 Each Tablet, 1 TAB PO DAILY for deficiency of other vitamins for 30 Days, #30 TAB 0 Refills 10/31/20 Polyethylene Glycol 3350 (MIRALAX) 17 Gm Powd.pack, 1 PACKET PO DAILY for constipation for 2 Days, #2 PACKET 0 Refills dissolve in water 10/31/20 Famotidine (FAMOTIDINE) 20 Mg Tablet, 20 MG PO HS for gerd, TAB 10/31/20 Ondansetron Hcl (ZOFRAN) 4 Mg Tablet, 4 MG PO Q8HRS PRN for NAUSEA/VOMITING, TAB 12/02/19 Polyvinyl Alcohol (TEARS AGAIN) 15 Ml Drops, 2 DROP EACHEYE Q4HRS for Dry Eyes for 30 Days, #15 ML 0 Refills 12/02/19 Polyvinyl Alcohol (POLYVINYL ALCOHOL) 15 Ml Drops, 2 DROP EACHEYE Q4HRS for dry eyes for 30 Days, #15 ML 0 Refills 12/02/19 Ropinirole Hcl (ROPINIROLE HCL) 1 Mg Tablet, 1 MG PO BID for restless leg , TAB 12/02/19 B Complex With Vitamin C (B-COMPLEX PLUS VITAMIN C) 1 Each Tablet, 1 EACH PO DAILY for supplement, TAB 12/02/19 Magnesium Oxide (MAGNESIUM OXIDE) 400 Mg Tablet, 400 MG PO DAILY for Supplement, TAB 12/02/19 Loratadine (LORATADINE) 10 Mg Tablet, 10 MG PO DAILY for Allergic Rhinitis, TAB 12/02/19 Insulin Lispro (HUMALOG) 100 Unit/1 Ml Vial, 100 UNIT SQ BIDWMEALS for hyperglycemia, VIAL 70 - 150 0 units 151 - 200 0 units 201 - 250 2 units 251 - 300 3 units 301 - 349 4 units if FSBS is under 70 or 350 and over call MD 12/02/19 [guaifenesin Syrup] No Conflict Check, 10 ML PO Q4HRS PRN for COUGH 12/02/19 Carvedilol (COREG) 25 Mg Tablet, 50 MG PO BIDWMEALS for CARDIAC, TAB 12/02/19 Chlorhexidine Gluconate (PERIDEX) 15 Ml Mouthwash, 15 ML PO BID for Erosion of Teeth for 30 Days, #946 ML 0 Refills Swish in mouth for 30 seconds then spit out 12/02/19 Calcium Carbonate (CALCIUM CARBONATE) 500 Mg Tablet, 500 MG PO Q4HRS for Heartburn, TAB 12/02/19 Atorvastatin Calcium (ATORVASTATIN CALCIUM) 10 Mg Tablet, 10 MG PO HS for FOR CHOLESTEROL, #30 TAB 0 Refills 12/02/19 Acetaminophen (ACETAMINOPHEN) 325 Mg Tablet, 650 MG PO Q6HRS for pain/temp, TAB 12/02/19 Metformin Hcl (METFORMIN HCL) 500 Mg Tablet, 250 MG PO BIDWMEALS for ANTI- DIABETIC, TAB 0 Refills 12/03/18 Loperamide HCl (Imodium A-D) 2 Mg Capsule, 2 MG PO DAILY PRN for DIARRHEA, CAP 12/03/18 Risperidone (RISPERIDONE) 0.5 Mg Tablet, 0.5 MG PO DAILY, TAB 03/21/18 Risperidone (RISPERIDONE) 1 Mg Tablet, 1 TAB PO QHS, #30 TAB 1 Refill 03/21/18 Levothyroxine Sodium (LEVOTHYROXINE SODIUM) 112 Mcg Tablet, 1 TAB PO DAILY, #30 TAB 5 Refills 03/21/18 Fluticasone/Salmeterol (ADVAIR 500-50 DISKUS) 1 Each Disk.w.dev, 1 PUFF IH BID, #1 INHALER 5 Refills 03/21/18 Nystatin (NYSTATIN) 15 Gm Powder, 1 TRAMAINE TP PRN BID PRN for RASH, #1 BOTTLE 03/21/18 Clonazepam (CLONAZEPAM ) 0.5 Mg Tablet, 1 TAB PO BID, #60 TAB 1 Refill 09/30/16 Simethicone (GAS-X) 80 Mg Tab.chew, 160 MG PO Q2HR PRN for GAS / BLOATING, TAB.CHEW 02/18/16 Gabapentin (GABAPENTIN ) 100 Mg Capsule, 100 MG PO TID for pain, CAP 02/18/16 Discontinued Reported Medications Lorazepam (ATIVAN) 0.5 Mg Tablet, 0.5 MG PO Q8HRS PRN for ANXIETY, TAB 10/31/20 Ibuprofen (IBUPROFEN) 400 Mg Tablet, 400 MG PO PRN Q6HRS PRN for pain, TAB 10/31/20 Guaifenesin/Codeine Phosphate (GUAIFENESIN AC COUGH SYRUP) 473 Ml Liquid, 10 ML PO PRN Q4-6HRS PRN for cough and congestion MDD 60 Milliliter(s) for 4 Days, #240 ML 0 Refills 12/17/20 Tramadol Hcl (TRAMADOL HCL) 50 Mg Tablet, 50 MG PO Q6HRS PRN for PAIN, TAB 12/02/19 Discontinued Scripts Azithromycin (ZITHROMAX) 250 Mg Tablet, 250 MG PO as directed for ANTI-BIOTIC, #6 TAB 0 Refills Take 2 PO x 1 days Then take 1 PO q 24 hour for the next 4 days Prov:MARY ELLEN FREEMAN MD 10/28/20 Doxycycline Hyclate (DOXYCYCLINE HYCLATE) 100 Mg Tablet, 1 TAB PO BID for COPD for 3 Days, #6 TAB Prov:CRISPIN SCHROEDER MD 12/04/19 HAMILTON PEREZ MD Nov 22, 2020 13:15
[2020-11-22] MEDS ORDERED: DOXY100C2 PO (13:16)
--- NOTE | 2020-11-22 13:28 | PDOC3 ---
Discharge Summary Visit Information Date of Admission: Nov 21, 2020 Date of Discharge: Nov 22, 2020 Admitting Diagnosis: Fall Final Diagnosis Problems Medical Problems: (1) Anemia Status: Acute (2) CHF (congestive heart failure) Status: Acute (3) Person under investigation for COVID-19 Status: Acute Brief Hospital Course Allergies Allergies Coded Allergies Type Severity Reaction Last Updated Verified lactose Allergy Intermediate 02/25/16 Yes lisinopril Allergy Intermediate 08/08/15 Yes Vital Signs Vital Signs Date Time Temp Pulse Resp B/P (MAP) Pulse Ox O2 Delivery O2 Flow Rate FiO2 11/22/20 11:00 96.9 82 16 152/82 (105) 95 Nasal Cannula 4.0 96.9 Lab Results Laboratory Tests Test 11/21/20 09:19 11/21/20 09:35 11/21/20 12:10 11/21/20 12:56 White Blood Count 9.9 x10^3/uL (4.0-11.0) 10.6 x10^3/uL (4.0-11.0) Red Blood Count 2.56 x10^6/uL (3.50-5.40) 2.49 x10^6/uL (3.50-5.40) Hemoglobin 7.6 g/dL (12.0-15.5) 7.5 g/dL (12.0-15.5) Hematocrit 24.0 % (36.0-47.0) 23.5 % (36.0-47.0) Mean Corpuscular Volume 94 fL (79-100) 94 fL (79-100) Mean Corpuscular Hemoglobin 30 pg (25-35) 30 pg (25-35) Mean Corpuscular Hemoglobin Concent 32 g/dL (31-37) 32 g/dL (31-37) Red Cell Distribution Width 16.1 % (11.5-14.5) 16.2 % (11.5-14.5) Platelet Count 178 x10^3/uL (140-400) 138 x10^3/uL (140-400) Neutrophils (%) (Auto) 78 % (31-73) Lymphocytes (%) (Auto) 14 % (24-48) Monocytes (%) (Auto) 8 % (0-9) Eosinophils (%) (Auto) 0 % (0-3) Basophils (%) (Auto) 1 % (0-3) Neutrophils # (Auto) 7.7 x10^3/uL (1.8-7.7) Lymphocytes # (Auto) 1.4 x10^3/uL (1.0-4.8) Monocytes # (Auto) 0.7 x10^3/uL (0.0-1.1) Eosinophils # (Auto) 0.0 x10^3/uL (0.0-0.7) Basophils # (Auto) 0.1 x10^3/uL (0.0-0.2) Sodium Level 140 mmol/L (136-145) Potassium Level 4.4 mmol/L (3.5-5.1) Chloride Level 101 mmol/L (98-107) Carbon Dioxide Level 35 mmol/L (21-32) Anion Gap 4 (6-14) Blood Urea Nitrogen 19 mg/dL (7-20) Creatinine 3.5 mg/dL (0.6-1.0) Estimated GFR (Cockcroft-Gault) 16.2 BUN/Creatinine Ratio 5 (6-20) Glucose Level 97 mg/dL (70-99) Calcium Level 9.1 mg/dL (8.5-10.1) Total Bilirubin 0.2 mg/dL (0.2-1.0) Aspartate Amino Transf (AST/SGOT) 49 U/L (15-37) Alanine Aminotransferase (ALT/SGPT) 37 U/L (14-59) Alkaline Phosphatase 106 U/L (46-116) Troponin I Quantitative < 0.017 ng/mL (0.000-0.055) TT-Tay-P-Type Natriuretic Peptide 89627 pg/mL (0-124) Total Protein 6.4 g/dL (6.4-8.2) Albumin 1.9 g/dL (3.4-5.0) Albumin/Globulin Ratio 0.4 (1.0-1.7) Urine Collection Type Unknown Urine Color Yellow Urine Clarity Clear Urine pH 6.5 (<5.0-8.0) Urine Specific [place] 1.020 (1.000-1.030) Urine Protein >=300 mg/dL (NEG-TRACE) Urine Glucose (UA) Negative mg/dL (NEG) Urine Ketones (Stick) Negative mg/dL (NEG) Urine Blood Negative (NEG) Urine Nitrite Negative (NEG) Urine Bilirubin Negative (NEG) Urine Urobilinogen Dipstick 0.2 mg/dL (0.2 mg/dL) Urine Leukocyte Esterase Negative (NEG) Urine RBC 0 /HPF (0-2) Urine WBC 1-4 /HPF (0-4) Urine Squamous Epithelial Cells Few /LPF Urine Transitional Epithelial Cells Few /LPF Urine Renal Epithelial Cells Occ /LPF Urine Bacteria 0 /HPF (0-FEW) Urine Hyaline Casts Occasional /HPF Urine Mucus Slight /LPF Urine Opiates Screen Neg (NEG) Urine Methadone Screen Neg (NEG) Urine Barbiturates Neg (NEG) Urine Phencyclidine Screen Neg (NEG) Urine Amphetamine/Methamphetamine Neg (NEG) Urine Benzodiazepines Screen Neg (NEG) Urine Cocaine Screen Neg (NEG) Urine Cannabinoids Screen Neg (NEG) Urine Ethyl Alcohol Neg (NEG) Coronavirus (PCR) Detected (Not Detected) Brief Hospital Course Ms Mulligan is a 60 yo F w/ PMHx schizoaffective disorder, CHF with AICD in place, HLD, afib, depression with anxiety, HTN who returns to the hospital after a fall at her care home 11/21/2020. Patient was just discharged the day prior after prolonged stay secondary to COVID-19 pneumonia (tested positive on 10/30/2020 - still positive on 11/21/20), acute respiratory failure, acute renal insufficiency, and postmenopausal bleeding s/p D&C. At baseline she feels on 3 to 4 L nasal cannula, stays in longterm psych SNF. Patient reportedly had a fall from her wheelchair, and was sent to the ER for evaluation. Feeling improved after IV lasix and pain control. CT head negative. No pain complaints. Stable on home O2. Eating well. No concerns. Imaging, prior hospital stay reviewed. Has outpatient plans for renal biopsy for worsening renal failure. Problem list: Fall - ct head negative, no other pain complaints, no fracture CHF s/p AICD not tolerant of BB, allergic to IZZY/ARB. 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 Encephalopathy - chronic due to schizophrenia Schizophrenia - stable Hypertension. Obesity COVID positive - 10/30/2020, still positive JACKIE- Suspect ATN- no improvement , UA No Micr hematuria - Renal Bx ordered , per nursing report IR unable to at this time and recommned holding for 5-7 days and they are planning to schedule as OP Supportive care , strict I/O ,avoid nephrotoxins Anemia - Hgb dropping, postmenopausal bleeding , D and C 11/20/2019, stable now Proteinuria- Nephrotic, No Micr hematuria , No WBC's or cast CKD stage 2/3 Cardiomyopathy with EF 45% s/p AICD Greater than 30 minutes spent on d/c to SNF Discharge Information Condition at Discharge: Stable Follow Up: Weeks Disposition/Orders: D/C to Another Facility Scheduled Acetaminophen (Acetaminophen) 325 Mg Tablet, 650 MG PO Q6HRS for pain/temp, (Reported) Entered as Reported by: ELYSSA BOOTH on 12/02/19224 Last Taken: Unknown Dose on Unknown Date & Time Last Action: HELD on 11/21/201645 by STONEY TILLMAN MD Atorvastatin Calcium (Atorvastatin Calcium) 10 Mg Tablet, 10 MG PO HS for FOR CHOLESTEROL, #30 Ref 0 (Reported) Entered as Reported by: ELYSSA BOOTH on 12/02/19225 Last Taken: Unknown Dose on Unknown Date & Time Last Action: Reviewed on 11/21/201608 by MATT QUINONES B Complex With Vitamin C (B-Complex Plus Vitamin C) 1 Each Tablet, 1 EACH PO DAILY for supplement, (Reported) Entered as Reported by: ELYSAS BOOTH on 12/02/19310 Last Action: HELD on 11/21/201645 by STONEY TILLMAN MD Bupropion Hcl (Wellbutrin Xl) 150 Mg Tab.er.24h, 150 MG PO DAILY for major depressive disorder, (Reported) Entered as Reported by: DAVIE BERRIOS on 10/31/20 0510 Last Taken: Unknown Dose on Unknown Date & Time Last Action: Reviewed on 11/21/201608 by MATT QUINONES Calcium Carbonate (Calcium Carbonate) 500 Mg Tablet, 500 MG PO Q4HRS for Heartburn, (Reported) Entered as Reported by: ELYSSA BOOTH on 12/02/19227 Last Taken: Unknown Dose on Unknown Date & Time Last Action: HELD on 11/21/201645 by STONEY TILLMAN MD Carvedilol (Coreg) 25 Mg Tablet, 50 MG PO BIDWMEALS for CARDIAC, (Reported) Entered as Reported by: ELYSSA BOOTH on 12/02/19 0236 Last Taken: Unknown Dose on Unknown Date & Time Last Action: Reviewed on 11/21/20 160 by MATT QUINONES Chlorhexidine Gluconate (Peridex) 15 Ml Mouthwash, 15 ML PO BID for Erosion of Teeth for 30 Days, #946 Ref 0 (Reported) Swish in mouth for 30 seconds then spit out Entered as Reported by: ELYSSA BOOTH on 12/02/19 0234 Last Taken: Unknown Dose on Unknown Date & Time Last Action: HELD on 11/21/201645 by STONEY TILLMAN MD Clonazepam (Clonazepam ) 0.5 Mg Tablet, 1 TAB PO BID, #60 Ref 1 (Reported) Entered as Reported by: Fozia Yoon on 09/30/16 0645 Last Taken: Unknown Dose on Unknown Date & Time Last Action: HELD on 11/21/201645 by STONEY TILLMAN MD Clonidine Hcl (Clonidine Hcl) 0.2 Mg Tablet, 0.2 MG PO TID for related to heart failure, (Reported) Entered as Reported by: DAVIE BERRIOS on 10/31/20 0510 Last Taken: Unknown Dose on Unknown Date & Time Last Action: Reviewed on 11/21/201608 by MATT QUINONES Dicyclomine Hcl (Dicyclomine Hcl) 20 Mg Tablet, 1 TAB PO TID for diarrhea for 10 Days, #30 Ref 1 Prescribed by: MARY ELLEN FREEMAN MD on 10/28/20 2030 Last Action: HELD on 11/21/201645 by STONEY TILLMAN MD Diphenoxylate Hcl/Atropine (Lomotil Tablet) 1 Each Tablet, 1 TAB PO TID for diarrhea for 3 Days, #9 Prescribed by: MARY ELLEN FREEMAN MD on 10/28/20 2030 Last Action: HELD on 11/21/201645 by STONEY TILLMAN MD Doxycycline Hyclate (Doxycycline Hyclate) 100 Mg Capsule, 1 CAP PO BID for pneumonia for 7 Days, #14 Prescribed by: HAMILTON PEREZ MD on 11/22/20 1316 Famotidine (Famotidine) 20 Mg Tablet, 20 MG PO HS for gerd, (Reported) Entered as Reported by: DAVIE BERRIOS on 10/31/20 0510 Last Taken: Unknown Dose on Unknown Date & Time Last Action: Reviewed on 11/21/20 160 by MATT QUINONES Fluticasone/Salmeterol (Advair 500-50 Diskus) 1 Each Disk.w.dev, 1 PUFF IH BID, #1 Ref 5 (Reported) Entered as Reported by: MARITZA SPIVEY on 03/21/18 0803 Last Taken: Unknown Dose on Unknown Date & Time Last Action: Reviewed on 11/21/201608 by MATT QUINONES Folic Acid (Folic Acid) 0.4 Mg Tablet, 0.4 MG PO DAILY for SUPPLEMENT, (Reported) Entered as Reported by: DAVIE BERRIOS on 10/31/20 0510 Last Taken: Unknown Dose on Unknown Date & Time Last Action: HELD on 11/21/201645 by STONEY TILLMAN MD Gabapentin (Gabapentin ) 100 Mg Capsule, 100 MG PO TID for pain, (Reported) Entered as Reported by: ODIN RALPH on 02/18/16 1101 Last Taken: Unknown Dose on Unknown Date & Time Last Action: Reviewed on 11/21/201608 by MATT QUINONES Insulin Lispro (Humalog) 100 Unit/1 Ml Vial, 100 UNIT SQ BIDWMEALS for hyperglycemia, (Reported) 70 - 150 0 units 151 - 200 0 units 201 - 250 2 units 251 - 300 3 units 301 - 349 4 units if FSBS is under 70 or 350 and over call Entered as Reported by: ELYSSA BOOTH on 12/02/19 0257 Last Taken: Unknown Dose on Unknown Date & Time Last Action: Reviewed on 11/21/201608 by MATT QUINONES Ipratropium/Albuterol Sulfate (Duoneb 0.5-3(2.5) Mg/3 Ml) 3 Ml Ampul.neb, 3 ML NEB Q4HRS for sob, (Reported) Entered as Reported by: DAVIE BERRIOS on 10/31/20 0510 Last Taken: Unknown Dose on Unknown Date & Time Last Action: HELD on 11/21/201645 by STONEY TILLMAN MD Lactobacillus Rhamnosus Gg (Culturelle) 1 Each Cap.sprink, 1 CAP PO BID for COPD for 14 Days, #28 Prescribed by: CRISPIN SCHROEDER MD on 12/04/19 1311 Last Action: HELD on 11/21/201645 by STONEY TILLMAN MD Levothyroxine Sodium (Levothyroxine Sodium) 112 Mcg Tablet, 1 TAB PO DAILY, #30 Ref 5 (Reported) Entered as Reported by: MARITZA SPIVEY on 03/21/18 08 Last Taken: Unknown Dose on Unknown Date & Time Last Action: Reviewed on 11/21/201608 by MATT QUINONES Loratadine (Loratadine) 10 Mg Tablet, 10 MG PO DAILY for Allergic Rhinitis, (Reported) Entered as Reported by: ELYSSA BOOTH on 12/02/19 0303 Last Taken: Unknown Dose on Unknown Date & Time Last Action: Reviewed on 11/21/201608 by MATT QUINONES Magnesium Oxide (Magnesium Oxide) 400 Mg Tablet, 400 MG PO DAILY for Supplement, (Reported) Entered as Reported by: ELYSSA BOOTH on 12/02/19 0304 Last Taken: Unknown Dose on Unknown Date & Time Last Action: HELD on 06/04 by STONEY TILLMAN MD Metformin Hcl (Metformin Hcl) 500 Mg Tablet, 250 MG PO BIDWMEALS for ANTI-D IABETIC, Ref 0 (Reported) Entered as Reported by: SAMIRA GONZALES on 12/03/182228 Last Taken: Unknown Dose on Unknown Date & Time Last Action: Reviewed on 11/21/201608 by MATT QUINONES Multivitamin (Multiple Vitamins) 1 Each Tablet, 1 TAB PO DAILY for deficiency of other vitamins for 30 Days, #30 Ref 0 (Reported) Entered as Reported by: DAVIE BERRIOS on 10/31/20509 Last Taken: Unknown Dose on Unknown Date & Time Last Action: HELD on 11/21/201645 by STONEY TILLMAN MD Peg 400/Hypromellose/Glycerin (Artificial Tears Drops) 15 Ml Drops, 1 DROP OS QID for irritation for 30 Days, #15 Ref 0 (Reported) Entered as Reported by: DAVIE BERRIOS on 10/31/20509 Last Taken: Unknown Dose on Unknown Date & Time Last Action: HELD on 11/21/201645 by STONEY TILLMAN MD Polyethylene Glycol 3350 (Miralax) 17 Gm Powd.pack, 1 PACKET PO DAILY for constipation for 2 Days, #2 Ref 0 (Reported) dissolve in water Entered as Reported by: DAVIE BERRIOS on 12/17/20 0510 Last Taken: Unknown Dose on Unknown Date & Time Last Action: HELD on 11/21/201645 by STONEY TILLMAN MD Polyvinyl Alcohol (Polyvinyl Alcohol) 15 Ml Drops, 2 DROP EACHEYE Q4HRS for dry eyes for 30 Days, #15 Ref 0 (Reported) Entered as Reported by: ELYSSA BOOTH on 12/02/19 0320 Last Action: HELD on 11/21/201645 by STONEY TILLMAN MD Polyvinyl Alcohol (Tears Again) 15 Ml Drops, 2 DROP EACHEYE Q4HRS for Dry Eyes for 30 Days, #15 Ref 0 (Reported) Entered as Reported by: ELYSSA BOOTH on 12/02/19 0322 Last Taken: Unknown Dose on Unknown Date & Time Last Action: HELD on 11/21/201645 by STONEY TILLMAN MD Risperidone (Risperidone) 1 Mg Tablet, 1 TAB PO QHS, #30 Ref 1 (Reported) Entered as Reported by: MARITZA SPIVEY on 03/21/18802 Last Taken: Unknown Dose on Unknown Date & Time Last Action: Reviewed on 11/21/201608 by MATT QUINONES Risperidone (Risperidone) 0.5 Mg Tablet, 0.5 MG PO DAILY, (Reported) Entered as Reported by: MARITZA SPIVEY on 03/21/18802 Last Action: HELD on 11/21/201645 by STONEY TILLMAN MD Ropinirole Hcl (Ropinirole Hcl) 1 Mg Tablet, 1 MG PO BID for restless leg , (Reported) Entered as Reported by: ELYSSA BOOTH on 12/02/197 Last Taken: Unknown Dose on Unknown Date & Time Last Action: Reviewed on 11/21/201608 by MATT QUINONES Scheduled PRN Loperamide HCl (Imodium A-D) 2 Mg Capsule, 2 MG PO DAILY PRN for DIARRHEA, (Reported) Entered as Reported by: SAMIRA GONZALES on 12/03/182228 Last Taken: Unknown Dose on Unknown Date & Time Last Action: HELD on 11/21/201645 by STONEY TILLMAN MD Nystatin (Nystatin) 15 Gm Powder, 1 TRAMAINE TP PRN BID PRN for RASH, #1 (Reported) Entered as Reported by: MARITZA SPIVEY on 5/7/18 0803 Last Taken: Unknown Dose on Unknown Date & Time Last Action: Reviewed on 11/21/20 160 by MATT QUINONES Ondansetron Hcl (Zofran) 4 Mg Tablet, 4 MG PO Q8HRS PRN for NAUSEA/VOMITING, (Reported) Entered as Reported by: ELYSSA BOOTH on 12/02/19 0324 Last Taken: Unknown Dose on Unknown Date & Time Last Action: HELD on 11/21/201645 by STONEY TILLMAN MD Simethicone (Gas-X) 80 Mg Tab.chew, 160 MG PO Q2HR PRN for GAS / BLOATING, (Reported) Entered as Reported by: ODIN RALPH on 02/18/16 1101 Last Taken: Unknown Dose on Unknown Date & Time Last Action: HELD on 11/21/201645 by STONEY TILLMAN MD [guaifenesin Syrup] , 10 ML PO Q4HRS PRN for COUGH, (Reported) Entered as Reported by: ELYSSA BOOTH on 12/02/19 0247 Last Taken: Unknown Dose on Unknown Date & Time Last Action: HELD on 11/21/201645 by STONEY TILLMAN MD Discontinued Medications Azithromycin (Zithromax) 250 Mg Tablet, 250 MG PO as directed for ANTI-BIOTIC, #6 Ref 0 Take 2 PO x 1 days Then take 1 PO q 24 hour for the next 4 days Prescribed by: MARY ELLEN FREEMAN MD on 10/28/20 2030 Doxycycline Hyclate (Doxycycline Hyclate) 100 Mg Tablet, 1 TAB PO BID for COPD for 3 Days, #6 Prescribed by: CRISPIN SCHROEDER MD on 12/04/19 1311 Guaifenesin/Codeine Phosphate (Guaifenesin Ac Cough Syrup) 473 Ml Liquid, 10 ML PO PRN Q4-6HRS PRN for cough and congestion MDD 60 Milliliter(s) for 4 Days, #240 Ref 0 (Reported) Entered as Reported by: DAVIE BERRIOS on 10/31/20 0510 Last Action: HELD on 11/21/201645 by STONEY TILLMAN MD Ibuprofen (Ibuprofen) 400 Mg Tablet, 400 MG PO PRN Q6HRS PRN for pain, (Reported) Entered as Reported by: DAVIE BERRIOS on 10/31/20 0510 Last Taken: Unknown Dose on Unknown Date & Time Last Action: HELD on 11/21/20 1646 by STONEY TILLMAN MD Lorazepam (Ativan) 0.5 Mg Tablet, 0.5 MG PO Q8HRS PRN for ANXIETY, (Reported) Entered as Reported by: DAVIE BERRIOS on 10/31/20 0510 Last Taken: Unknown Dose on Unknown Date & Time Last Action: Reviewed on 11/21/20 160 by MATT QUINONES Tramadol Hcl (Tramadol Hcl) 50 Mg Tablet, 50 MG PO Q6HRS PRN for PAIN, (Reported) Entered as Reported by: ELYSSA BOOTH on 12/02/19 0323 Last Taken: Unknown Dose on Unknown Date & Time Last Action: Reviewed on 11/21/20 1609 by MATT QUINONES Justicifation of Admission Dx: Justifications for Admission: Justification of Admission Dx: Yes HAMILTON PEREZ MD Nov 22, 2020 13:28
--- NOTE | 2020-11-22 15:06 | NUR ---
SW following for discharge planning. Spoke with RN and reviewed chart. Pt to discharge back to [facility] today, 11/22. Discharge orders phoned and faxed. Packet of clinicals ready to be sent with pt. RN to call report. Transportation arranged for 1500 with 02 per the facility. No further SW needs at this time.
[2020-11-22 19:00] VITALS: BP 165/83
--- NOTE | 2020-11-22 20:30 | NUR ---
Transportation for [facility] arrived to fiber picker patient. Apparently the box truck driver did not know the patient was Covid positive. He stated that he did not transport Covid patients and [facility]
[2020-11-22] MEDS ORDERED: risperiDONE 1 MG TABLET. PO SCH (22:00)
[2020-11-22] MEDS ORDERED: ATORVASTATIN CALCIUM 10 MG TABLET. PO SCH (22:00)
[2020-11-22] MEDS: FUROSEMIDE 40 MG/4 ML VIAL. IVP SCH (22:00)
[2020-11-22 23:38] VITALS: BP 152/82
[2020-11-23] MEDS: GABAPENTIN 100 MG CAPSULE. PO SCH ×3 (00:28→15:28)
[2020-11-23] MEDS: CARVEDILOL 12.5 MG TABLET. PO SCH ×3 (00:28→17:35)
[2020-11-23 03:53] VITALS: BP 185/88
[2020-11-23] MEDS ORDERED: LEVOTHYROXINE 112 MCG TABLET PO SCH (06:00)
[2020-11-23 07:00] VITALS: BP 171/102
--- NOTE | 2020-11-23 07:38 | PDOC ---
[employer] NOTE Date of Service DOS: DATE: 11/23/20 TIME: 07:38 Chief Complaint Chief Complaint A/P: Fall - ct head negative, no other pain complaints, no fracture CHF s/p AICD not tolerant of BB, allergic to IZZY/ARB. 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 Encephalopathy - chronic due to schizophrenia Schizophrenia - stable Hypertension. Obesity COVID positive - 10/30/2020, still positive JACKIE- Suspect ATN- no improvement , UA No Micr hematuria - Renal Bx ordered , per nursing report IR unable to at this time and recommned holding for 5-7 days and they are planning to schedule as OP Supportive care , strict I/O ,avoid nephrotoxins Anemia - Hgb dropping, postmenopausal bleeding , D and C 11/20/2019, stable now Proteinuria- Nephrotic, No Micr hematuria , No WBC's or cast CKD stage 2/3 Cardiomyopathy with EF 45% s/p AICD History of Present Illness History of Present Illness Ms Mulligan is a 60 yo F w/ PMHx schizoaffective disorder, CHF with AICD in place, HLD, afib, depression with anxiety, HTN who [facility] to the hospital [facility] Patient was just discharged the day prior after prolonged stay secondary to COVID-19 pneumonia (tested positive on 10/30/2020 - still positive on 11/21/20), acute respiratory failure, acute renal insufficiency, and postmenopausal bleeding s/p D&C. At baseline she feels on 3 to 4 L nasal cannula, stays in group home psych SNF. Patient reportedly had a fall from her wheelchair, and was sent to the ER for evaluation. 11/22: Feeling improved. CT head negative. No pain complaints. Stable on home O2. Eating well. No concerns. Imaging, prior hospital stay reviewed. Breathing stable on her home O2. COVID 19 still positive currently. Eating well Vitals/I&O Vitals/I&O: Vital Signs Date Time Temp Pulse Resp B/P (MAP) Pulse Ox O2 Delivery O2 Flow Rate FiO2 11/23/20 03:53 97.7 75 19 185/88 (120) 97 Nasal Cannula 4.0 97.7 I & O 11/22/20 11/22/20 11/23/20 15:00 23:00 07:00 Intake Total 420 ml 480 ml 240 ml Balance 420 ml 480 ml 240 ml Physical Exam General: Alert, Cooperative Lungs: Clear Assessment and Plan Assessmemt and Plan Problems Medical Problems: (1) Anemia Status: Acute (2) CHF (congestive heart failure) Status: Acute (3) Person under investigation for COVID-19 Status: Acute Comment Review of Relevant I have reviewed the following items lucas (where applicable) has been applied. Medications: Current Medications Medications (Trade) Dose Ordered Sig/Eber Route PRN Reason Start Time Stop Time Status Last Admin Dose Admin Atorvastatin Calcium (Lipitor) 10 mg HS PO 11/22/20 22:00 11/23/20 00:28 Gabapentin (Neurontin) 100 mg TID PO 11/22/20 22:00 11/23/20 00:28 Risperidone (RisperDAL) 1 mg QHS PO 11/22/20 22:00 11/23/20 00:28 Carvedilol (Coreg) 25 mg BIDWMEALS PO 11/22/20 22:00 11/23/20 00:28 Justifications for Admission Other Justification Fall, new right pleural effusion HAMILTON PEREZ MD Nov 23, 2020 07:38
[2020-11-23] MEDS ORDERED: POLYETHYLENE GLYCOL 3350 17 GM PACKET. PO SCH (09:00)
[2020-11-23] MEDS ORDERED: risperiDONE 0.25 MG TABLET. PO SCH (09:00)
[2020-11-23] MEDS ORDERED: buPROPion XL 150 MG TAB.ER.24H. PO SCH (09:00)
[2020-11-23] MEDS: FUROSEMIDE 40 MG/4 ML VIAL. IVP SCH ×2 (09:43→14:00)
[2020-11-23 11:00] VITALS: BP 162/82
[2020-11-23 15:00] VITALS: BP 155/81
[2020-11-23 17:35] VITALS: BP 162/82
--- NOTE | 2020-11-23 18:06 | NUR ---
Heidi willard [facility] arranged for EMS to come oyster picker pt and take her back to her facility, pt stated that she did not want to go back there cause they were not nice. we changed pt and got her rdy for EMS oyster picker. Called report at 1800 to Anca at the facility. Gorge Diop RN
[2020-12-17] MEDS ORDERED: CLON-77 PO (11:17)
== END 2020-11-23 18:15 | disposition home or self-care (01) ==
LOC: ER 08:50 → INTOOBSV 12:15 → 6 SOUTH 12:15
PROVIDERS: ADMIT Internal Medicine; ATTEND Internal Medicine
DX: U07.1 COVID-19 (principal); J90 Pleural effusion, not elsewhere classified; E43 Unspecified severe protein-calorie malnutrition; D64.9 Anemia, unspecified; E03.9 Hypothyroidism, unspecified; I13.0 Hypertensive heart and chronic kidney disease with heart failure and stage 1 through stage 4 chronic kidney disease, or unspecified chronic kidney disease; I50.33 Acute on chronic diastolic (congestive) heart failure; N18.2 Chronic kidney disease, stage 2 (mild); J45.909 Unspecified asthma, uncomplicated; E11.22 Type 2 diabetes mellitus with diabetic chronic kidney disease; E66.9 Obesity, unspecified; E78.5 Hyperlipidemia, unspecified; G25.81 Restless legs syndrome; F25.9 Schizoaffective disorder, unspecified; I42.9 Cardiomyopathy, unspecified; I48.91 Unspecified atrial fibrillation; K21.9 Gastro-esophageal reflux disease without esophagitis; M19.90 Unspecified osteoarthritis, unspecified site; G93.40 Encephalopathy, unspecified; N17.9 Acute kidney failure, unspecified; Z86.718 Personal history of other venous thrombosis and embolism; Z95.810 Presence of automatic (implantable) cardiac defibrillator; Z87.440 Personal history of urinary (tract) infections; Z79.84 Long term (current) use of oral hypoglycemic drugs; Z68.37 Body mass index [BMI] 37.0-37.9, adult; Z79.899 Other long term (current) drug therapy; Z87.891 Personal history of nicotine dependence; W05.0XXA Fall from non-moving wheelchair, initial encounter; Y92.129 Unspecified place in nursing home as the place of occurrence of the external cause
CPT/HCPCS: 36415; 70450; 71045; 80053; 80307; 81001; 83880; 84484; 85025; 85027; 93005; 96374; 99285; G0378; J1940; U0003; G0379

== ENCOUNTER 2020-11-25 20:28 | Inpatient (IN) | payer MEDICAID ==
[~2020-11-25] VITALS: Ht 162.6 cm; Wt 82.6 kg
[~2020-11-25 20:28] MED LIST changes: +DOXY100C2 PO
[2020-11-25] MEDS ORDERED: IV NORMAL SALINE 1000ML BAG 1,000 ML IV ONE ×2 (20:45→23:15)
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
[2020-11-25 20:58] LABS: BASO # 0.1 x10^3/uL (0.0-0.2); BASO % 1 % (0-3); EOS # 0.2 x10^3/uL (0.0-0.7); EOS % 2 % (0-3); HEMATOCRIT 25.1 % (36.0-47.0); HEMOGLOBIN 8.1 g/dL (12.0-15.5); LYMPH # 1.6 x10^3/uL (1.0-4.8); LYMPH % 17 % (24-48); MEAN CORPUSCULAR HEMOGLOBIN 31 pg (25-35); MEAN CORPUSCULAR HGB CONC 32 g/dL (31-37); MEAN CORPUSCULAR VOLUME 95 fL (79-100); MONO # 0.7 x10^3/uL (0.0-1.1); MONO % 7 % (0-9); NEUT # 6.7 x10^3/uL (1.8-7.7); NEUT % 72 % (31-73); PLATELET COUNT 89 x10^3/uL (140-400); RED BLOOD COUNT 2.66 x10^6/uL (3.50-5.40); RED CELL DISTRIBUTION WIDTH 17.7 % (11.5-14.5); WHITE BLOOD COUNT 9.3 x10^3/uL (4.0-11.0)
[2020-11-25 21:10] LABS: CALCIUM 8.1 mg/dL (8.5-10.1); CREATININE 3.2 mg/dL (0.6-1.0); GFR 17.9; POTASSIUM 3.8 mmol/L (3.5-5.1)
--- NOTE | 2020-11-25 21:10 | RAD ---
XR CHEST 1V History: Reason: hypoxic / Spl. Instructions: / History: Comparison: November 21, 2020 Findings: Small to moderate left pleural effusion, unchanged. Small right pleural effusion, unchanged. Increase d patchy left mid and bibasilar opacities. Unchanged heart size. Stable left-sided pacemaker. No pneu mothorax. Impression: 1. Increased patchy mid and bibasilar opacities, represent atelectasis or developing consolidations. 2. Bilateral pleural effusions, left greater than right, unchanged. Electronically signed by: Wilfredo Nagel DO (11/25/2020 9:08 PM) [facility]
[2020-11-25 21:25] LABS: ALBUMIN/GLOBULIN RATIO 0.5 (1.0-1.7); MAGNESIUM 2.2 mg/dL (1.8-2.4); TOTAL BILIRUBIN 0.3 mg/dL (0.2-1.0); TOTAL PROTEIN 6.3 g/dL (6.4-8.2)
[2020-11-25] MEDS ORDERED: DEXAMETHASONE SOD PHOS 20 MG/5 ML VIAL. IV ONE (23:15)
[2020-11-25] MEDS ORDERED: ONDANSETRON PF 4 MG/2 ML VIAL. IV PRN (23:15)
[2020-11-25] MEDS ORDERED: ACETAMINOPHEN 325 MG TABLET. PO PRN (23:15)
[2020-11-25] MEDS ORDERED: AZITHRMYCN 500MG IVPB FOR OMNI 250 ML IV ONE (23:15)
[2020-11-25] MEDS ORDERED: cefTRIAXone IV Push 1 GM VIAL. IVP ONE (23:15)
[2020-11-25] MEDS ORDERED: VANCOMYCIN 1.25 GM in IV NORMAL SALINE 250ML 250 ML IV ONE (23:30)
[2020-11-25] MEDS ORDERED: PIPERACILLIN/TAZOBACTAM 2.25 GM in IV NORMAL SALINE 50ML 50 ML IV ONE (23:30)
--- NOTE | 2020-11-26 02:11 | EKG ---
[facility] [address] [place] [id number] Test Date: 2020-11-25 Test Time: 20:41:46 Pat Name: MARCOS CLIFTON Department: Room: Gender: F Chicken Boner: : 1960 Requested By: MARY ELLEN FREEMAN Order Number: [id number] Reading MD: Measurements Intervals [place] Rate: 111 P: 208 MO: 136 QRS: -29 QRSD: 148 T: 90 QT: 368 QTc: 504 Interpretive Statements SINUS TACHYCARDIA LEFT ATRIAL ABNORMALITY LEFTWARD AXIS RIGHT BUNDLE BRANCH BLOCK QRS(T) CONTOUR ABNORMALITY CONSIDER ANTEROLATERAL INFARCT ABNORMAL ECG RI6.02 No previous ECG available for comparison
[2020-11-26] MEDS ORDERED: IBUP400T99 PO (08:14)
[2020-11-26] MEDS ORDERED: LORA0.5T96 PO (08:20)
[2020-11-26] MEDS ORDERED: TRAM50TA PO (08:20)
[2020-11-26] MEDS ORDERED: MAG-115 PO (08:20)
[2020-11-26 09:05] LABS: BASO % 1 % (0-3); EOS % 0 % (0-3); HEMATOCRIT 24.8 % (36.0-47.0); HEMOGLOBIN 7.9 g/dL (12.0-15.5); LYMPH # 0.4 x10^3/uL (1.0-4.8); LYMPH % 5 % (24-48); MEAN CORPUSCULAR HEMOGLOBIN 30 pg (25-35); MEAN CORPUSCULAR HGB CONC 32 g/dL (31-37); MEAN CORPUSCULAR VOLUME 95 fL (79-100); MONO # 0.1 x10^3/uL (0.0-1.1); MONO % 1 % (0-9); NEUT # 8.3 x10^3/uL (1.8-7.7); NEUT % 94 % (31-73); PLATELET COUNT 70 x10^3/uL (140-400); RED CELL DISTRIBUTION WIDTH 18.1 % (11.5-14.5); WHITE BLOOD COUNT 8.8 x10^3/uL (4.0-11.0)
[2020-11-26 09:19] LABS: CALCIUM 7.7 mg/dL (8.5-10.1); GFR 19.3; POTASSIUM 4.3 mmol/L (3.5-5.1)
[2020-11-26 10:00] LABS: % BANDS 2 % (0-9); % LYMPHS 3 % (24-48); % MONOS 1 % (0-10); % SEGS 94 % (35-66); ANISOCYTOSIS MOD; NUCLEATED RBC 1; PLT ESTIMATE DECREASED (ADEQUATE); TOXIC VACUOLATION SLIGHT
[2020-11-26 10:01] LABS: POLYCHROMASIA SLIGHT
--- NOTE | 2020-11-26 10:14 | PDOC1 ---
History and Physical Date of Admission Date of Admission DATE: 11/26/20 TIME: 10:14 Identification/Chief Complaint Chief Complaint INC CONFUSION, ALTERED MENTATION// SOA History of Present Illness History of Present Illness SEEN IN ER WITH WORSENING HYPOXIA 60 year old female coming in from nursing facility for worsening mental status and hypoxia. Per staff report she was satting in the 80s on 2.5 L nasal cannula. Patient was hospitalized at this facility for Covid 19 and intubated. Her test was + October 30. She was also seen again and discharged yesterday after a 3-day stay. baseline on 2.5 L nasal cannula Ms Mulligan is a 60 yo F w/ PMHx schizoaffective disorder, CHF with AICD in place, HLD, afib, depression with anxiety, HTN who returns to the hospital after a fall RECENTLY, D/C ON 11-23, Patient was just discharged the day prior after prolonged stay secondary to COVID-19 pneumonia (tested positive on 10/30/2020 - still positive on 11/21/20), acute respiratory failure, acute renal insufficiency, and postmenopausal bleeding s/p D&C. At baseline she feels on 3 to 4 L nasal cannula, [facility]. Patient reportedly HAD ALTERED MENTAL STATUS WITH WORSENING HYPOXIA and was sent to the ER for evaluation. Past Medical History Past Medical History Past Medical History Past Medical History Past Medical History: A-Fib, Anxiety, Asthma, CHF, Constipation, Depression, Diabetes-Type II, GERD, High Cholesterol, Hypothyroid, Schizophrenia, Other Additional Past Medical Histor: SCHIZOAFFECTIVE, RESTLESS LEG Past Surgical History: Pacemaker Additional Past Surgical Histo: Pacemaker/defib/BATTERY REPLACED Smoking Status: Former Smoker Alcohol Use: None Drug Use: None FHX OBESITY Cardiovascular: CHF, HTN, Hyperlipidemia, Other Pulmonary: Asthma CENTRAL NERVOUS SYSTEM: Other GI: GERD, Other Heme/Onc: No pertinent hx Hepatobiliary: No pertinent hx Psych: Anxiety, Depression, Schizophrenia Musculoskeletal: Osteoarthritis, Other Rheumatologic: No pertinent hx Infectious disease: No pertinent hx Renal/: Chronic renal insuff, UTI Endocrine: Diabetes, Hypothyroidism Past Surgical History Past Surgical History: Pacemaker Family History Family History: Hypertension, Family History Unknown Social History Smoke: No ALCOHOL: none Drugs: None Current Problem List Problem List Problems Medical Problems: (1) COVID-19 Status: Acute (2) HCAP (healthcare-associated pneumonia) Status: Acute Current Medications Current Medications Current Medications Sodium Chloride 1,000 ml @ 1,000 mls/hr 1X ONCE IV Last administered on 11/25/20at 20:52; Start 11/25/20 at 20:45; Stop 11/25/20 at 21:44; Status DC Dexamethasone Sodium Phosphate (Decadron) 10 mg 1X ONCE IV Last administered on 11/25/20at 23:54; Start 11/25/20 at 23:15; Stop 11/25/20 at 23:16; Status DC Ceftriaxone Sodium (Rocephin) 1 gm 1X ONCE IVP ; Start 11/25/20 at 23:15; Stop 11/25/20 at 23:25; Status DC Azithromycin 250 ml @ 250 mls/hr 1X ONCE IV ; Start 11/25/20 at 23:15; Stop 11/25/20 at 23:25; Status DC Ondansetron HCl (Zofran) 4 mg PRN Q8HRS PRN IV NAUSEA/VOMITING; Start 11/25/20 at 23:15; Stop 11/26/20 at 23:14 Acetaminophen (Tylenol) 650 mg PRN Q4HRS PRN PO FEVER > 100.3'F; Start 11/25/20 at 23:15; Stop 11/26/20 at 23:14 Sodium Chloride 1,000 ml @ 75 mls/hr 1X ONCE IV Last administered on 11/25/20at 23:55; Start 11/25/20 at 23:15; Stop 11/26/20 at 12:34 Piperacillin Sod/ Tazobactam Sod 2.25 gm/Sodium Chloride 50 ml @ 100 mls/hr 1X ONCE IV Last administered on 11/25/20at 23:30; Start 11/25/20 at 23:30; Stop 11/25/20 at 23:59; Status DC Vancomycin HCl 1.25 gm/Sodium Chloride 250 ml @ 250 mls/hr 1X ONCE IV Last administered on 11/26/20at 00:38; Start 11/25/20 at 23:30; Stop 11/26/20 at 00:29; Status DC Active Scripts Active Dicyclomine Hcl 20 Mg Tablet 1 Tab PO TID 10 Days Reported Tramadol Hcl 50 Mg Tablet 50 Mg PO Q6HRS PRN Mylanta Maximum Strength Liq (Mag Hydrox/Aluminum Hyd/Simeth) 355 Ml Oral.susp 30 Ml PO PRN PRN Ativan (Lorazepam) 0.5 Mg Tablet 0.5 Mg PO Q8HRS PRN Ibu (Ibuprofen) 400 Mg Tablet 1 Tab PO Q6HRS PRN 5 Days NEEDED FOR PAIN Wellbutrin Xl (Bupropion Hcl) 150 Mg Tab.er.24h 150 Mg PO DAILY Artificial Tears Drops (Peg 400/Hypromellose/Glycerin) 15 Ml Drops 1 Drop OS QID 30 Days Folic Acid 0.4 Mg Tablet 0.4 Mg PO DAILY Duoneb 0.5-3(2.5) Mg/3 Ml (Albuterol/Ipratropium) 3 Ml Ampul.neb 3 Ml NEB Q4HRS Clonidine Hcl 0.2 Mg Tablet 0.2 Mg PO TID Multiple Vitamins (Multivitamin) 1 Each Tablet 1 Tab PO DAILY 30 Days Miralax (Polyethylene Glycol 3350) 17 Gm Powd.pack 1 Packet PO DAILY 2 Days dissolve in water Famotidine 20 Mg Tablet 20 Mg PO HS Zofran (Ondansetron Hcl) 4 Mg Tablet 4 Mg PO Q8HRS PRN Tears Again (Polyvinyl Alcohol) 15 Ml Drops 2 Drop EACHEYE Q4HRS 30 Days Polyvinyl Alcohol 15 Ml Drops 2 Drop EACHEYE Q4HRS 30 Days Ropinirole Hcl 1 Mg Tablet 1 Mg PO BID Magnesium Oxide 400 Mg Tablet 400 Mg PO DAILY Loratadine 10 Mg Tablet 10 Mg PO DAILY Humalog (Insulin Lispro) 100 Unit/1 Ml Vial 100 Unit SQ BIDWMEALS 70 - 150 0 units 151 - 200 0 units 201 - 250 2 units 251 - 300 3 units 301 - 349 4 units if FSBS is under 70 or 350 and over call MD [guaifenesin Syrup] 10 Ml PO Q4HRS PRN Coreg (Carvedilol) 25 Mg Tablet 50 Mg PO BIDWMEALS Peridex (Chlorhexidine Gluconate) 15 Ml Mouthwash 15 Ml PO BID 30 Days Swish in mouth for 30 seconds then spit out Calcium Carbonate 500 Mg Tablet 500 Mg PO Q4HRS Atorvastatin Calcium 10 Mg Tablet 10 Mg PO HS Acetaminophen 325 Mg Tablet 650 Mg PO Q6HRS Metformin Hcl 500 Mg Tablet 250 Mg PO BIDWMEALS Imodium A-D (Loperamide HCl) 2 Mg Capsule 2 Mg PO DAILY PRN Risperidone 0.5 Mg Tablet 2 Mg PO DAILY Risperidone 1 Mg Tablet 1 Tab PO QHS Levothyroxine Sodium 112 Mcg Tablet 1 Tab PO DAILY Advair 500-50 Diskus (Fluticasone/Salmeterol) 1 Each Disk.w.dev 1 Puff IH BID Nystatin 15 Gm Powder 1 Scott TP PRN BID PRN Clonazepam (Clonazepam) 0.5 Mg Tablet 1 Tab PO BID Gas-X (Simethicone) 80 Mg Tab.chew 160 Mg PO Q2HR PRN Gabapentin (Gabapentin) 100 Mg Capsule 100 Mg PO TID Allergies Allergies: Coded Allergies: lactose (Verified Allergy, Intermediate, 02/25/16) lisinopril (Verified Allergy, Intermediate, 08/08/15) ROS General: YES: Fatigue, Malaise; No: Chills, Night Sweats, Appetite, Other PSYCHOLOGICAL ROS: YES: Concentration difficultie, Disorientation Eyes: Yes Decreased vision; No Blurry vision, No Double vision, No Dry eyes, No Excessive tearing, No Eye Pain, No Itchy Eyes, No Loss of vision, No Photophobia, No Scotomata, No Uses contacts, No Uses glasses, No Other HEENT: No: Heacaches, Visual Changes, Hearing change, Nasal congestion, Nasal discharge, Oral lesions, Sinus pain, Sore Throat, Epistaxis, Sneezing, Snoring, Tinnitus, Vertigo, Vocal changes, Other ALLERGY AND IMMUNOLOGY: YES: Hives; No: Itchy/Watery Eyes, Nasal Congestion, Post Nasal Drip, Seasonal Allergies, Other Hematological and Lymphatic: No: Bleeding Problems, Blood Clots, Blood Transfusions, Brusing, Night Sweats, Pallor, Swollen Lymph Nodes, Other ENDOCRINE: No: Breast Changes, Galactorrhea, Hair Pattern Changes, Hot Flashes, Malaise/lethargy, Mood Swings, Palpitations, Polydipsia/polyuria, Skin Changes, Temperature Intolerance, Unexpected Weight Changes, Other Respiratory: YES: Cough, Shortness of breath Cardiovascular: No Chest Pain, No Palpitations, No Orthopnea, No Paroxysmal Noc. Dyspnea, No Edema, No Lt Headedness, No Other Gastrointestinal: No Nausea, No Vomiting, No Abdominal Pain, No Diarrhea, No Constipation, No Melena, No Hematochezia, No Other Genitourinary: No Dysuria, No Frequency, No Incontinence, No Hematuria, No Retention, No Discharge, No Urgency, No Pain, No Flank Pain, No Other, No , No , No , No , No , No , No Musculoskeletal: Yes Gait Disturbance, Yes Joint Stiffness Neurological: Yes Confusion; No Behavorial Changes, No Bowel/Bladder ControlChng, No Dizziness, No Gait Disturbance, No Headaches, No Impaired Coord/balance, No Memory Loss, No Numbness/Tingling, No Seizures, No Speech Problems, No Tremors, No Visual Changes, No Weakness, No Other Skin: Yes Dry Skin; No Eczema, No Hair Changes, No Lumps, No Mole Changes, No Mottling, No Nail Changes, No Pruritus, No Rash, No Skin Lesion Changes, No Other, No Acne Physical Exam Physical Exam Constitutional: Well developed, well nourished, no acute distress, non-toxic appearance. [] HENT: Normocephalic, atraumatic, bilateral external ears normal, nose normal, dry mucous membrane. [] Eyes: PERRLA, conjunctiva normal, no discharge. [] Neck: No rigidity, supple, no stridor. [] Cardiovascular: Regular rate and rhythm, brisk cap refill [] Lungs & Thorax: Non labored symmetric respirations, no tachypnea or respiratory distress [] Abdomen: Soft, nondistended no tenderness palpation, no guarding. Skin: Warm, dry, no erythema, no rash. [] Back: No tenderness, no CVA tenderness. [] Extremities: No deformities, range of motion grossly intact, no lower extremity edema [] Neurologic: Alert and oriented X 2, no focal deficits noted. [] Psychologic: Affect normal, judgment normal, mood normal. [] General: No acute distress Breasts: Not examined Rectal Exam: not examined PELVIC: Examination not indicated Extremities: No cyanosis Neuro: Cranial nerves 3-12 NL Psych/Mental Status: Mental status NL, Mood NL Vitals Vitals Vital Signs Date Time Temp Pulse Resp B/P (MAP) Pulse Ox O2 Delivery O2 Flow Rate FiO2 11/26/20 06:30 112 22 94 11/25/20 20:30 97.7 148/77 (100) Nasal Cannula 4.0 97.7 Labs Labs Laboratory Tests Test 11/25/20 20:50 11/26/20 08:35 White Blood Count 9.3 x10^3/uL (4.0-11.0) 8.8 x10^3/uL (4.0-11.0) Red Blood Count 2.66 x10^6/uL (3.50-5.40) 2.60 x10^6/uL (3.50-5.40) Hemoglobin 8.1 g/dL (12.0-15.5) 7.9 g/dL (12.0-15.5) Hematocrit 25.1 % (36.0-47.0) 24.8 % (36.0-47.0) Mean Corpuscular Volume 95 fL (79-100) 95 fL (79-100) Mean Corpuscular Hemoglobin 31 pg (25-35) 30 pg (25-35) Mean Corpuscular Hemoglobin Concent 32 g/dL (31-37) 32 g/dL (31-37) Red Cell Distribution Width 17.7 % (11.5-14.5) 18.1 % (11.5-14.5) Platelet Count 89 x10^3/uL (140-400) 70 x10^3/uL (140-400) Neutrophils (%) (Auto) 72 % (31-73) 94 % (31-73) Lymphocytes (%) (Auto) 17 % (24-48) 5 % (24-48) Monocytes (%) (Auto) 7 % (0-9) 1 % (0-9) Eosinophils (%) (Auto) 2 % (0-3) 0 % (0-3) Basophils (%) (Auto) 1 % (0-3) 1 % (0-3) Neutrophils # (Auto) 6.7 x10^3/uL (1.8-7.7) 8.3 x10^3/uL (1.8-7.7) Lymphocytes # (Auto) 1.6 x10^3/uL (1.0-4.8) 0.4 x10^3/uL (1.0-4.8) Monocytes # (Auto) 0.7 x10^3/uL (0.0-1.1) 0.1 x10^3/uL (0.0-1.1) Eosinophils # (Auto) 0.2 x10^3/uL (0.0-0.7) 0.0 x10^3/uL (0.0-0.7) Basophils # (Auto) 0.1 x10^3/uL (0.0-0.2) 0.0 x10^3/uL (0.0-0.2) Sodium Level 145 mmol/L (136-145) 140 mmol/L (136-145) Potassium Level 3.8 mmol/L (3.5-5.1) 4.3 mmol/L (3.5-5.1) Chloride Level 103 mmol/L (98-107) 102 mmol/L (98-107) Carbon Dioxide Level 34 mmol/L (21-32) 32 mmol/L (21-32) Anion Gap 8 (6-14) 6 (6-14) Blood Urea Nitrogen 16 mg/dL (7-20) 17 mg/dL (7-20) Creatinine 3.2 mg/dL (0.6-1.0) 3.0 mg/dL (0.6-1.0) Estimated GFR (Cockcroft-Gault) 17.9 19.3 BUN/Creatinine Ratio 5 (6-20) Glucose Level 133 mg/dL (70-99) 238 mg/dL (70-99) Lactic Acid Level 1.2 mmol/L (0.4-2.0) Calcium Level 8.1 mg/dL (8.5-10.1) 7.7 mg/dL (8.5-10.1) Magnesium Level 2.2 mg/dL (1.8-2.4) Total Bilirubin 0.3 mg/dL (0.2-1.0) Aspartate Amino Transf (AST/SGOT) 39 U/L (15-37) Alanine Aminotransferase (ALT/SGPT) 25 U/L (14-59) Alkaline Phosphatase 132 U/L (46-116) Myoglobin 182 ng/mL (9-82) Troponin I Quantitative 0.090 ng/mL (0.000-0.055) 0.035 ng/mL (0.000-0.055) Total Protein 6.3 g/dL (6.4-8.2) Albumin 2.0 g/dL (3.4-5.0) Albumin/Globulin Ratio 0.5 (1.0-1.7) Thyroid Stimulating Hormone (TSH) 24.215 uIU/mL (0.358-3.74) Segmented Neutrophils % 94 % (35-66) Band Neutrophils % 2 % (0-9) Lymphocytes % 3 % (24-48) Monocytes % 1 % (0-10) Nucleated Red Blood Cells 1 Toxic Vacuolation Slight Platelet Estimate Decreased (ADEQUATE) Polychromasia Slight Anisocytosis Mod Creatine Kinase 220 U/L (26-192) Laboratory Tests Test 11/25/20 20:50 11/26/20 08:35 White Blood Count 9.3 x10^3/uL (4.0-11.0) 8.8 x10^3/uL (4.0-11.0) Red Blood Count 2.66 x10^6/uL (3.50-5.40) 2.60 x10^6/uL (3.50-5.40) Hemoglobin 8.1 g/dL (12.0-15.5) 7.9 g/dL (12.0-15.5) Hematocrit 25.1 % (36.0-47.0) 24.8 % (36.0-47.0) Mean Corpuscular Volume 95 fL (79-100) 95 fL (79-100) Mean Corpuscular Hemoglobin 31 pg (25-35) 30 pg (25-35) Mean Corpuscular Hemoglobin Concent 32 g/dL (31-37) 32 g/dL (31-37) Red Cell Distribution Width 17.7 % (11.5-14.5) 18.1 % (11.5-14.5) Platelet Count 89 x10^3/uL (140-400) 70 x10^3/uL (140-400) Neutrophils (%) (Auto) 72 % (31-73) 94 % (31-73) Lymphocytes (%) (Auto) 17 % (24-48) 5 % (24-48) Monocytes (%) (Auto) 7 % (0-9) 1 % (0-9) Eosinophils (%) (Auto) 2 % (0-3) 0 % (0-3) Basophils (%) (Auto) 1 % (0-3) 1 % (0-3) Neutrophils # (Auto) 6.7 x10^3/uL (1.8-7.7) 8.3 x10^3/uL (1.8-7.7) Lymphocytes # (Auto) 1.6 x10^3/uL (1.0-4.8) 0.4 x10^3/uL (1.0-4.8) Monocytes # (Auto) 0.7 x10^3/uL (0.0-1.1) 0.1 x10^3/uL (0.0-1.1) Eosinophils # (Auto) 0.2 x10^3/uL (0.0-0.7) 0.0 x10^3/uL (0.0-0.7) Basophils # (Auto) 0.1 x10^3/uL (0.0-0.2) 0.0 x10^3/uL (0.0-0.2) Sodium Level 145 mmol/L (136-145) 140 mmol/L (136-145) Potassium Level 3.8 mmol/L (3.5-5.1) 4.3 mmol/L (3.5-5.1) Chloride Level 103 mmol/L (98-107) 102 mmol/L (98-107) Carbon Dioxide Level 34 mmol/L (21-32) 32 mmol/L (21-32) Anion Gap 8 (6-14) 6 (6-14) Blood Urea Nitrogen 16 mg/dL (7-20) 17 mg/dL (7-20) Creatinine 3.2 mg/dL (0.6-1.0) 3.0 mg/dL (0.6-1.0) Estimated GFR (Cockcroft-Gault) 17.9 19.3 BUN/Creatinine Ratio 5 (6-20) Glucose Level 133 mg/dL (70-99) 238 mg/dL (70-99) Lactic Acid Level 1.2 mmol/L (0.4-2.0) Calcium Level 8.1 mg/dL (8.5-10.1) 7.7 mg/dL (8.5-10.1) Magnesium Level 2.2 mg/dL (1.8-2.4) Total Bilirubin 0.3 mg/dL (0.2-1.0) Aspartate Amino Transf (AST/SGOT) 39 U/L (15-37) Alanine Aminotransferase (ALT/SGPT) 25 U/L (14-59) Alkaline Phosphatase 132 U/L (46-116) Myoglobin 182 ng/mL (9-82) Troponin I Quantitative 0.090 ng/mL (0.000-0.055) 0.035 ng/mL (0.000-0.055) Total Protein 6.3 g/dL (6.4-8.2) Albumin 2.0 g/dL (3.4-5.0) Albumin/Globulin Ratio 0.5 (1.0-1.7) Thyroid Stimulating Hormone (TSH) 24.215 uIU/mL (0.358-3.74) Segmented Neutrophils % 94 % (35-66) Band Neutrophils % 2 % (0-9) Lymphocytes % 3 % (24-48) Monocytes % 1 % (0-10) Nucleated Red Blood Cells 1 Toxic Vacuolation Slight Platelet Estimate Decreased (ADEQUATE) Polychromasia Slight Anisocytosis Mod Creatine Kinase 220 U/L (26-192) Images Images XR CHEST 1V History: Reason: hypoxic / Spl. Instructions: / History: Comparison: November 21, 2020 Findings: Small to moderate left pleural effusion, unchanged. Small right pleural eff usion, unchanged. Increased patchy left mid and bibasilar opacities. Unchanged heart size. Stable left-sided pacemaker. No pneumothorax. Impression: 1. Increased patchy mid and bibasilar opacities, represent atelectasis or developing consolidations. 2. Bilateral pleural effusions, left greater than right, unchanged. Electronically signed by: Wilfredo Nagel DO (11/25/2020 9:08 PM) [facility] DICTATED and SIGNED BY: WILFREDO NAGEL DO DATE: 11/25/20 [id number] VTE Prophylaxis Ordered VTE Prophylaxis Devices: Yes VTE Pharmacological Prophylaxi: Yes Assessment/Plan Assessment/Plan IMPRESSION ACUTE ALTERED MENTAL STATUS Metabolic encephalopathy with underlying anxiety, depression, schizoaffective disorder. PNEUMONIA Increased patchy mid and bibasilar opacities, represent atelectasis or developing consolidations. possible aspiration pneumonia Bilateral pleural effusions, left greater than right, unchanged. RECENT Fall - ct head negative, no other pain complaints, no fracture CHF s/p AICD not tolerant of BB, allergic to IZZY/ARB. Diuresed History of DVT bilateral legs on Eliquis for life SNU resident-generalized weakness Obesity BMI 37 Blood culture positive 11/18 gram-positive cocci, most likely to be contaminant. Encephalopathy - chronic due to schizophrenia Schizophrenia - Hypertension. Obesity COVID positive - 10/30/2020, still positive JACKIE- Suspect ATN- no improvement , UA No Micr hematuria - Renal Bx ordered , per nursing report IR unable to at this time Supportive care , strict I/O ,avoid nephrotoxins Anemia - Hgb dropping, postmenopausal bleeding , D and C 11/20/2019, stable now Proteinuria- Nephrotic, No Micr hematuria , No WBC's or cast CKD stage 2/3 Cardiomyopathy with EF 45% s/p AICD PLAN ADMIT Consult pulmonary consult nephrology IV FLUID SUPPORT pt/ot/st Justifications for Admission Other Justification Fall, new right pleural effusion WAYNE TROY MD Nov 26, 2020 10:14
[2020-11-26 10:24] LABS: BILIRUBIN,URINE NEGATIVE (NEG); CLARITY,URINE CLEAR; COLOR,URINE YELLOW; NITRITE,URINE NEGATIVE (NEG); PH,URINE 6.5 (<5.0-8.0); PROTEIN,URINE >=300 mg/dL (NEG-TRACE); UROBILINOGEN,URINE 0.2 mg/dL (0.2 mg/dL)
[2020-11-26] MEDS ORDERED: ONDANSETRON PF 4 MG/2 ML VIAL. IV PRN (10:30)
[2020-11-26] MEDS ORDERED: SODIUM PHOSPHATES 19/7GM 133 ML ENEMA. PR PRN (10:30)
[2020-11-26] MEDS ORDERED: ACETAMINOPHEN 325 MG TABLET. PO PRN (10:30)
[2020-11-26] MEDS ORDERED: guaiFENesin ORAL 200 MG/10 ML LIQUID. PO PRN (10:30)
[2020-11-26] MEDS ORDERED: ACETAMINOPHEN 650 MG SUPP.RECT. PR PRN (10:30)
[2020-11-26] MEDS ORDERED: 0.9 % SODIUM CHLORIDE 10 ML DISP.SYRIN. IV PRN (10:30)
[2020-11-26] MEDS ORDERED: ALBUTEROL SULFATE 2.5 MG/3 ML NEBU. NEB PRN (10:30)
[2020-11-26] MEDS ORDERED: DOCUSATE SODIUM 100 MG CAPSULE. PO PRN (10:30)
[2020-11-26 10:39] LABS: RBC,URINE OCC /HPF (0-2); WBC,URINE 0 /HPF (0-4)
[2020-11-26 10:40] LABS: BACTERIA,URINE 0 /HPF (0-FEW)
--- NOTE | 2020-11-26 11:04 | PDOC ---
MATY ROJAS COAL CAGER 11/26/20 1104: CARDIO Progress Notes Date and Time Date of Service 11/26/20 Time of Evaluation 1240 Subjective Subjective: No Chest Pain, No shortness of breath, Other (drowsy ) Vitals Vitals Vital Signs Date Time Temp Pulse Resp B/P (MAP) Pulse Ox O2 Delivery O2 Flow Rate FiO2 11/26/20 06:30 112 22 94 11/25/20 20:30 97.7 148/77 (100) Nasal Cannula 4.0 97.7 Weight Weight [ ] Input and Output Intake and Output Intake and Output 11/26/20 07:00 Intake Total 1300 ml Balance 1300 ml Intake IV Total 1300 ml Laboratory Labs Laboratory Tests Test 11/25/20 20:50 11/26/20 08:35 White Blood Count 9.3 x10^3/uL (4.0-11.0) 8.8 x10^3/uL (4.0-11.0) Red Blood Count 2.66 x10^6/uL (3.50-5.40) 2.60 x10^6/uL (3.50-5.40) Hemoglobin 8.1 g/dL (12.0-15.5) 7.9 g/dL (12.0-15.5) Hematocrit 25.1 % (36.0-47.0) 24.8 % (36.0-47.0) Mean Corpuscular Volume 95 fL (79-100) 95 fL (79-100) Mean Corpuscular Hemoglobin 31 pg (25-35) 30 pg (25-35) Mean Corpuscular Hemoglobin Concent 32 g/dL (31-37) 32 g/dL (31-37) Red Cell Distribution Width 17.7 % (11.5-14.5) 18.1 % (11.5-14.5) Platelet Count 89 x10^3/uL (140-400) 70 x10^3/uL (140-400) Neutrophils (%) (Auto) 72 % (31-73) 94 % (31-73) Lymphocytes (%) (Auto) 17 % (24-48) 5 % (24-48) Monocytes (%) (Auto) 7 % (0-9) 1 % (0-9) Eosinophils (%) (Auto) 2 % (0-3) 0 % (0-3) Basophils (%) (Auto) 1 % (0-3) 1 % (0-3) Neutrophils # (Auto) 6.7 x10^3/uL (1.8-7.7) 8.3 x10^3/uL (1.8-7.7) Lymphocytes # (Auto) 1.6 x10^3/uL (1.0-4.8) 0.4 x10^3/uL (1.0-4.8) Monocytes # (Auto) 0.7 x10^3/uL (0.0-1.1) 0.1 x10^3/uL (0.0-1.1) Eosinophils # (Auto) 0.2 x10^3/uL (0.0-0.7) 0.0 x10^3/uL (0.0-0.7) Basophils # (Auto) 0.1 x10^3/uL (0.0-0.2) 0.0 x10^3/uL (0.0-0.2) Sodium Level 145 mmol/L (136-145) 140 mmol/L (136-145) Potassium Level 3.8 mmol/L (3.5-5.1) 4.3 mmol/L (3.5-5.1) Chloride Level 103 mmol/L (98-107) 102 mmol/L (98-107) Carbon Dioxide Level 34 mmol/L (21-32) 32 mmol/L (21-32) Anion Gap 8 (6-14) 6 (6-14) Blood Urea Nitrogen 16 mg/dL (7-20) 17 mg/dL (7-20) Creatinine 3.2 mg/dL (0.6-1.0) 3.0 mg/dL (0.6-1.0) Estimated GFR (Cockcroft-Gault) 17.9 19.3 BUN/Creatinine Ratio 5 (6-20) Glucose Level 133 mg/dL (70-99) 238 mg/dL (70-99) Lactic Acid Level 1.2 mmol/L (0.4-2.0) Calcium Level 8.1 mg/dL (8.5-10.1) 7.7 mg/dL (8.5-10.1) Magnesium Level 2.2 mg/dL (1.8-2.4) Total Bilirubin 0.3 mg/dL (0.2-1.0) Aspartate Amino Transf (AST/SGOT) 39 U/L (15-37) Alanine Aminotransferase (ALT/SGPT) 25 U/L (14-59) Alkaline Phosphatase 132 U/L (46-116) Myoglobin 182 ng/mL (9-82) Troponin I Quantitative 0.090 ng/mL (0.000-0.055) 0.035 ng/mL (0.000-0.055) Total Protein 6.3 g/dL (6.4-8.2) Albumin 2.0 g/dL (3.4-5.0) Albumin/Globulin Ratio 0.5 (1.0-1.7) Thyroid Stimulating Hormone (TSH) 24.215 uIU/mL (0.358-3.74) Segmented Neutrophils % 94 % (35-66) Band Neutrophils % 2 % (0-9) Lymphocytes % 3 % (24-48) Monocytes % 1 % (0-10) Nucleated Red Blood Cells 1 Toxic Vacuolation Slight Platelet Estimate Decreased (ADEQUATE) Polychromasia Slight Anisocytosis Mod Creatine Kinase 220 U/L (26-192) Physical Exam HEENT: Neck Supple W Full Motion Chest: Symmetric LUNGS: Other (diminished bases) Heart: RRR (v-pace with underlying SR) Abdomen: Soft N/T, Other (obese) Extremities: Other (1+ bilateral LE edema ) Neurology: alert, confused, other (drowsy) Assessment Assessment HPI: This is a 60 yo female who has had lengthy hospitalized recently due to COVID PNA and required intubation. She initially presented 10/30/20 from nursing facility and was positive for COVID at that time. Was treated with steroids and antibiotic therapy and eventually extubated. Was discharged 11/20/20 back to nursing facility. She returned 11/21/20 due to fall and lethargy. Was discharge 11/23/20. She returned yesterday due to altered mental status and hypoxia. Troponin noted to be mildly elevated, which prompted this consult. Patient is presently drowsy and cannot tell me what prompted her arrival today. Assessment 1. Metabolic encephalopathy with underlying anxiety, depression, schizoaffective disorder. 2. Acute respiratory failure with recent COVID PNA requiting intubation 3. Acute on chronic systolic CHF 4. Mild troponin elevated; peak 0.09. Most probable type II, demand ischemia. 5. Cardiomyopathy s/p AICD ([place]): prior EF at 45%. 6. PAFIB; presently v-paced with underlying SR. Episode of NSVT vs aberrant AFIB noted 7. Hypertension; controlled 8. Hyperlipidemia; statin. 9. Diabetes, II 10. JACKIE on CKD 11. Hypothyroidism; on replacement Recommendations Metoprolol for rate control, HF optimization Device interrogation No ACEi/ARB with JACKIE Mild diuresis with monitoring of renal function ASA, statin. Secondary prevention Echo if COVID negative Ongoing lung optimization Plan outpatient ischemic evaluation Supportive care Justicifation of Admission Dx: Justifications for Admission: Justification of Admission Dx: Yes RADHA SWAN MD 11/26/201811: CARDIO Progress Notes Assessment Assessment Patient seen and examined. Agree with LAP MACHINE OPERATOR's assessment and plan. Continue diuresis for ac on chr systolic HF Brief wide complex tachy probably atrial fib with aberrant conduction - agree with device interrogation. Continue metoprolol. Continue management of metabolic encephalopathy per IM Patient recently treated for Covid PNA. Covid test this admission pending. Slight troponin elevation probably demand ischemia. Agree with 2D echo if covid negative Plan ischemic evaluation as outpatient. Thank you for your consultation MATY ROJAS APRN Nov 26, 2020 11:04 RADHA SWAN MD Nov 26, 2020 18:12
[2020-11-26] MEDS ORDERED: SIMETHICONE 80 MG TAB.CHEW PO PRN (12:15)
[2020-11-26] MEDS ORDERED: NYSTATIN TOPICAL POWDER 15GM BOTTLE. TP PRN (12:15)
[2020-11-26] MEDS: ENOXAPARIN 30 MG/0.3 ML SYRINGE. SQ SCH (12:34)
[2020-11-26] MEDS: IV NORMAL SALINE 1000ML BAG 1,000 ML IV SCH ×2 (12:35→20:36)
[2020-11-26] MEDS: GABAPENTIN 100 MG CAPSULE. PO SCH ×2 (15:01→20:35)
[2020-11-26 15:40] VITALS: BP 120/58
--- NOTE | 2020-11-26 15:55 | PDOC2 ---
CONSULT Date of Consult Date of Consult DATE: 11/26/20 TIME: 15:45 Reason for Consult Reason for Consult: JACKIE Referring Physician Referring Physician: WOODROW Identification/Chief Complaint Chief Complaint CONFUSION Source Source: Chart review History of Present Illness Reason for Visit: THIS IS A 60 YR OLD [place] WITH CONFUSION AND HYPOXIA. HAS CHRONIC O2 NEEDS AT 3 TO 4 LITERS. RECENTLY WAS DX WITH COVID 19 PNEUMONIA, INTUBATED AND THEN SUCCESSFULLY EXTUBATED. HAS MILD CKD WITH CR OF ABOUT 1.0-1.2 BASELINE WITH GFR C/W STAGE 2 TO 3A. HAD A CR OF ABOUT 3.0 BY D/C AND A RENAL BX WAS CONSIDERED BUT NOT DONE SHE WAS ON ANTICOAGULATION AND DECONDITIONED. SHE DID NOT NEED DIALYSIS HOWEVER, UA NOTED FOR PROTEINURIA AND TRACE RBC. INTAKE HAS BEEN POOR . Past Medical History Cardiovascular: CHF, HTN, Hyperlipidemia, Other Pulmonary: Asthma CENTRAL NERVOUS SYSTEM: Other GI: GERD, Other Heme/Onc: No pertinent hx Hepatobiliary: No pertinent hx Psych: Anxiety, Depression, Schizophrenia Musculoskeletal: Osteoarthritis, Other Rheumatologic: No pertinent hx Infectious disease: No pertinent hx Renal/: Chronic renal insuff, Acute renal failure, UTI Endocrine: Diabetes, Hypothyroidism Past Surgical History Past Surgical History: Pacemaker Family History Family History: Hypertension, Family History Unknown Social History No ALCOHOL: none Drugs: None Lives: Retirement Domestic Violence: Neg Current Problem List Problem List Problems Medical Problems: (1) COVID-19 Status: Acute (2) HCAP (healthcare-associated pneumonia) Status: Acute Current Medications Current Medications Current Medications Sodium Chloride 1,000 ml @ 1,000 mls/hr 1X ONCE IV Last administered on 11/25/20at 20:52; Start 11/25/20 at 20:45; Stop 11/25/20 at 21:44; Status DC Dexamethasone Sodium Phosphate (Decadron) 10 mg 1X ONCE IV Last administered on 11/25/20at 23:54; Start 11/25/20 at 23:15; Stop 11/25/20 at 23:16; Status DC Ceftriaxone Sodium (Rocephin) 1 gm 1X ONCE IVP ; Start 11/25/20 at 23:15; Stop 11/25/20 at 23:25; Status DC Azithromycin 250 ml @ 250 mls/hr 1X ONCE IV ; Start 11/25/20 at 23:15; Stop 11/25/20 at 23:25; Status DC Ondansetron HCl (Zofran) 4 mg PRN Q8HRS PRN IV NAUSEA/VOMITING; Start 11/25/20 at 23:15; Stop 11/26/20 at 23:14 Acetaminophen (Tylenol) 650 mg PRN Q4HRS PRN PO FEVER > 100.3'F; Start 11/25/20 at 23:15; Stop 11/26/20 at 23:14 Sodium Chloride 1,000 ml @ 75 mls/hr 1X ONCE IV Last administered on 11/25/20at 23:55; Start 11/25/20 at 23:15; Stop 11/26/20 at 12:34; Status DC Piperacillin Sod/ Tazobactam Sod 2.25 gm/Sodium Chloride 50 ml @ 100 mls/hr 1X ONCE IV Last administered on 11/25/20at 23:30; Start 11/25/20 at 23:30; Stop 11/25/20 at 23:59; Status DC Vancomycin HCl 1.25 gm/Sodium Chloride 250 ml @ 250 mls/hr 1X ONCE IV Last administered on 11/26/20at 00:38; Start 11/25/20 at 23:30; Stop 11/26/20 at 00:29; Status DC Sodium Chloride (Normal Saline Flush) 3 ml QSHIFT PRN IV AFTER MEDS AND BLOOD DRAWS; Start 11/26/20 at 10:30 Sodium Chloride 1,000 ml @ 75 mls/hr [id number] IV Last administered on 11/26/20at 12:35; Start 11/26/20 at 10:30 Ondansetron HCl (Zofran) 4 mg PRN Q4HRS PRN IV NAUSEA/VOMITING; Start 11/26/20 at 10:30 Acetaminophen (Tylenol) 650 mg PRN Q4HRS PRN PO TEMP OVER 100.4F OR MILD PAIN; Start 11/26/20 at 10:30 Acetaminophen (Tylenol Supp) 650 mg PRN Q4HRS PRN AK TEMP OVER 100.4F OR MILD PAIN; Start 11/26/20 at 10:30 Sodium Monofluorophosphate (Fleet Adult) 133 ml PRN DAILY PRN AK CONSTIPATION; Start 11/26/20 at 10:30 Docusate Sodium (Colace) 100 mg PRN BID PRN PO HARD STOOLS; Start 11/26/20 at 10:30 Albuterol Sulfate (Ventolin Neb Soln) 2.5 mg PRN Q4HRS PRN NEB SHORTNESS OF BREATH; Start 11/26/20 at 10:30 Guaifenesin (Robitussin) 200 mg PRN Q4HRS PRN PO COUGH; Start 11/26/20 at 10:30 Enoxaparin Sodium (Lovenox 30mg Syringe) 30 mg Q24H SQ Last administered on 11/26/20at 12:34; Start 11/26/20 at 11:00 Acetaminophen (Tylenol) 650 mg Q6HRS PO ; Start 11/26/20 at 18:00; Status UNV Atorvastatin Calcium (Lipitor) 10 mg HS PO ; Start 11/26/20 at 21:00 Bupropion HCl (Wellbutrin Xl) 150 mg DAILY PO ; Start 11/27/20 at 09:00 Calcium Carbonate/ Glycine (Oscal) 500 mg DAILY PO ; Start 11/27/20 at 09:00 Chlorhexidine Gluconate (Peridex) 15 ml BID SWSP ; Start 11/26/20 at 21:00 Famotidine (Pepcid) 20 mg HS PO ; Start 11/26/20 at 21:00 Gabapentin (Neurontin) 100 mg TID PO Last administered on 11/26/20at 15:01; Start 11/26/20 at 14:00 Albuterol/ Ipratropium (Duoneb) 3 ml Q4HRS NEB ; Start 11/26/20 at 16:00 Levothyroxine Sodium (Synthroid) 112 mcg DAILY06 PO ; Start 11/27/20 at 06:00 Nystatin (Nystop) 1 scott PRN BID PRN TP RASH; Start 11/26/20 at 12:15 Polyethylene Glycol (miraLAX PACKET) 17 gm DAILY PO ; Start 11/27/20 at 09:00 Ropinirole HCl (Requip) 1 mg BID PO ; Start 11/26/20 at 21:00 Simethicone (Gas-X) 160 mg PRN Q2HRS PRN PO GAS / BLOATING; Start 11/26/20 at 12:15 Active Scripts Active Dicyclomine Hcl 20 Mg Tablet 1 Tab PO TID 10 Days Reported Tramadol Hcl 50 Mg Tablet 50 Mg PO Q6HRS PRN Mylanta Maximum Strength Liq (Mag Hydrox/Aluminum Hyd/Simeth) 355 Ml Oral.susp 30 Ml PO PRN PRN Ativan (Lorazepam) 0.5 Mg Tablet 0.5 Mg PO Q8HRS PRN Ibu (Ibuprofen) 400 Mg Tablet 1 Tab PO Q6HRS PRN 5 Days NEEDED FOR PAIN Wellbutrin Xl (Bupropion Hcl) 150 Mg Tab.er.24h 150 Mg PO DAILY Artificial Tears Drops (Peg 400/Hypromellose/Glycerin) 15 Ml Drops 1 Drop OS QID 30 Days Folic Acid 0.4 Mg Tablet 0.4 Mg PO DAILY Duoneb 0.5-3(2.5) Mg/3 Ml (Albuterol/Ipratropium) 3 Ml Ampul.neb 3 Ml NEB Q4HRS Clonidine Hcl 0.2 Mg Tablet 0.2 Mg PO TID Multiple Vitamins (Multivitamin) 1 Each Tablet 1 Tab PO DAILY 30 Days Miralax (Polyethylene Glycol 3350) 17 Gm Powd.pack 1 Packet PO DAILY 2 Days dissolve in water Famotidine 20 Mg Tablet 20 Mg PO HS Zofran (Ondansetron Hcl) 4 Mg Tablet 4 Mg PO Q8HRS PRN Tears Again (Polyvinyl Alcohol) 15 Ml Drops 2 Drop EACHEYE Q4HRS 30 Days Polyvinyl Alcohol 15 Ml Drops 2 Drop EACHEYE Q4HRS 30 Days Ropinirole Hcl 1 Mg Tablet 1 Mg PO BID Magnesium Oxide 400 Mg Tablet 400 Mg PO DAILY Loratadine 10 Mg Tablet 10 Mg PO DAILY Humalog (Insulin Lispro) 100 Unit/1 Ml Vial 100 Unit SQ BIDWMEALS 70 - 150 0 units 151 - 200 0 units 201 - 250 2 units 251 - 300 3 units 301 - 349 4 units if FSBS is under 70 or 350 and over call MD [guaifenesin Syrup] 10 Ml PO Q4HRS PRN Coreg (Carvedilol) 25 Mg Tablet 50 Mg PO BIDWMEALS Peridex (Chlorhexidine Gluconate) 15 Ml Mouthwash 15 Ml PO BID 30 Days Swish in mouth for 30 seconds then spit out Calcium Carbonate 500 Mg Tablet 500 Mg PO Q4HRS Atorvastatin Calcium 10 Mg Tablet 10 Mg PO HS Acetaminophen 325 Mg Tablet 650 Mg PO Q6HRS Metformin Hcl 500 Mg Tablet 250 Mg PO BIDWMEALS Imodium A-D (Loperamide HCl) 2 Mg Capsule 2 Mg PO DAILY PRN Risperidone 0.5 Mg Tablet 2 Mg PO DAILY Risperidone 1 Mg Tablet 1 Tab PO QHS Levothyroxine Sodium 112 Mcg Tablet 1 Tab PO DAILY Advair 500-50 Diskus (Fluticasone/Salmeterol) 1 Each Disk.w.dev 1 Puff IH BID Nystatin 15 Gm Powder 1 Scott TP PRN BID PRN Clonazepam (Clonazepam) 0.5 Mg Tablet 1 Tab PO BID Gas-X (Simethicone) 80 Mg Tab.chew 160 Mg PO Q2HR PRN Gabapentin (Gabapentin) 100 Mg Capsule 100 Mg PO TID Allergies Allergies: Coded Allergies: lactose (Verified Allergy, Intermediate, 02/25/16) lisinopril (Verified Allergy, Intermediate, 08/08/15) ROS Review of System UNABLE TO OBTAIN Physical Exam General: Cooperative HEENT: Atraumatic, Other (DRY MUCOSA) Lungs: Other (DECREASED AT BASES) Heart: Regular rate Abdomen: Normal bowel sounds, Soft Extremities: No cyanosis Skin: No rashes Neuro: Other (NO ASYMMETRY) Psych/Mental Status: Other (FLAT) MUSCULOSKELETAL: No joint tenderness, No deformity Vitals VITALS Vital Signs Date Time Temp Pulse Resp B/P (MAP) Pulse Ox O2 Delivery O2 Flow Rate FiO2 11/26/20 15:40 96.9 92 16 120/58 (78) 91 Nasal Cannula 2.0 96.9 Labs Labs Laboratory Tests Test 11/25/20 20:50 11/26/20 08:35 11/26/20 10:12 White Blood Count 9.3 x10^3/uL (4.0-11.0) 8.8 x10^3/uL (4.0-11.0) Red Blood Count 2.66 x10^6/uL (3.50-5.40) 2.60 x10^6/uL (3.50-5.40) Hemoglobin 8.1 g/dL (12.0-15.5) 7.9 g/dL (12.0-15.5) Hematocrit 25.1 % (36.0-47.0) 24.8 % (36.0-47.0) Mean Corpuscular Volume 95 fL (79-100) 95 fL (79-100) Mean Corpuscular Hemoglobin 31 pg (25-35) 30 pg (25-35) Mean Corpuscular Hemoglobin Concent 32 g/dL (31-37) 32 g/dL (31-37) Red Cell Distribution Width 17.7 % (11.5-14.5) 18.1 % (11.5-14.5) Platelet Count 89 x10^3/uL (140-400) 70 x10^3/uL (140-400) Neutrophils (%) (Auto) 72 % (31-73) 94 % (31-73) Lymphocytes (%) (Auto) 17 % (24-48) 5 % (24-48) Monocytes (%) (Auto) 7 % (0-9) 1 % (0-9) Eosinophils (%) (Auto) 2 % (0-3) 0 % (0-3) Basophils (%) (Auto) 1 % (0-3) 1 % (0-3) Neutrophils # (Auto) 6.7 x10^3/uL (1.8-7.7) 8.3 x10^3/uL (1.8-7.7) Lymphocytes # (Auto) 1.6 x10^3/uL (1.0-4.8) 0.4 x10^3/uL (1.0-4.8) Monocytes # (Auto) 0.7 x10^3/uL (0.0-1.1) 0.1 x10^3/uL (0.0-1.1) Eosinophils # (Auto) 0.2 x10^3/uL (0.0-0.7) 0.0 x10^3/uL (0.0-0.7) Basophils # (Auto) 0.1 x10^3/uL (0.0-0.2) 0.0 x10^3/uL (0.0-0.2) Sodium Level 145 mmol/L (136-145) 140 mmol/L (136-145) Potassium Level 3.8 mmol/L (3.5-5.1) 4.3 mmol/L (3.5-5.1) Chloride Level 103 mmol/L (98-107) 102 mmol/L (98-107) Carbon Dioxide Level 34 mmol/L (21-32) 32 mmol/L (21-32) Anion Gap 8 (6-14) 6 (6-14) Blood Urea Nitrogen 16 mg/dL (7-20) 17 mg/dL (7-20) Creatinine 3.2 mg/dL (0.6-1.0) 3.0 mg/dL (0.6-1.0) Estimated GFR (Cockcroft-Gault) 17.9 19.3 BUN/Creatinine Ratio 5 (6-20) Glucose Level 133 mg/dL (70-99) 238 mg/dL (70-99) Lactic Acid Level 1.2 mmol/L (0.4-2.0) Calcium Level 8.1 mg/dL (8.5-10.1) 7.7 mg/dL (8.5-10.1) Magnesium Level 2.2 mg/dL (1.8-2.4) Total Bilirubin 0.3 mg/dL (0.2-1.0) Aspartate Amino Transf (AST/SGOT) 39 U/L (15-37) Alanine Aminotransferase (ALT/SGPT) 25 U/L (14-59) Alkaline Phosphatase 132 U/L (46-116) Myoglobin 182 ng/mL (9-82) Troponin I Quantitative 0.090 ng/mL (0.000-0.055) 0.035 ng/mL (0.000-0.055) Total Protein 6.3 g/dL (6.4-8.2) Albumin 2.0 g/dL (3.4-5.0) Albumin/Globulin Ratio 0.5 (1.0-1.7) Thyroid Stimulating Hormone (TSH) 24.215 uIU/mL (0.358-3.74) Segmented Neutrophils % 94 % (35-66) Band Neutrophils % 2 % (0-9) Lymphocytes % 3 % (24-48) Monocytes % 1 % (0-10) Nucleated Red Blood Cells 1 Toxic Vacuolation Slight Platelet Estimate Decreased (ADEQUATE) Polychromasia Slight Anisocytosis Mod Creatine Kinase 220 U/L (26-192) Urine Collection Type Void Urine Color Yellow Urine Clarity Clear Urine pH 6.5 (<5.0-8.0) Urine Specific [place] 1.010 (1.000-1.030) Urine Protein >=300 mg/dL (NEG-TRACE) Urine Glucose (UA) 100 mg/dL (NEG) Urine Ketones (Stick) Negative mg/dL (NEG) Urine Blood Small (NEG) Urine Nitrite Negative (NEG) Urine Bilirubin Negative (NEG) Urine Urobilinogen Dipstick 0.2 mg/dL (0.2 mg/dL) Urine Leukocyte Esterase Negative (NEG) Urine RBC Occ /HPF (0-2) Urine WBC 0 /HPF (0-4) Urine Bacteria 0 /HPF (0-FEW) Laboratory Tests Test 11/25/20 20:50 11/26/20 08:35 11/26/20 10:12 White Blood Count 9.3 x10^3/uL (4.0-11.0) 8.8 x10^3/uL (4.0-11.0) Red Blood Count 2.66 x10^6/uL (3.50-5.40) 2.60 x10^6/uL (3.50-5.40) Hemoglobin 8.1 g/dL (12.0-15.5) 7.9 g/dL (12.0-15.5) Hematocrit 25.1 % (36.0-47.0) 24.8 % (36.0-47.0) Mean Corpuscular Volume 95 fL (79-100) 95 fL (79-100) Mean Corpuscular Hemoglobin 31 pg (25-35) 30 pg (25-35) Mean Corpuscular Hemoglobin Concent 32 g/dL (31-37) 32 g/dL (31-37) Red Cell Distribution Width 17.7 % (11.5-14.5) 18.1 % (11.5-14.5) Platelet Count 89 x10^3/uL (140-400) 70 x10^3/uL (140-400) Neutrophils (%) (Auto) 72 % (31-73) 94 % (31-73) Lymphocytes (%) (Auto) 17 % (24-48) 5 % (24-48) Monocytes (%) (Auto) 7 % (0-9) 1 % (0-9) Eosinophils (%) (Auto) 2 % (0-3) 0 % (0-3) Basophils (%) (Auto) 1 % (0-3) 1 % (0-3) Neutrophils # (Auto) 6.7 x10^3/uL (1.8-7.7) 8.3 x10^3/uL (1.8-7.7) Lymphocytes # (Auto) 1.6 x10^3/uL (1.0-4.8) 0.4 x10^3/uL (1.0-4.8) Monocytes # (Auto) 0.7 x10^3/uL (0.0-1.1) 0.1 x10^3/uL (0.0-1.1) Eosinophils # (Auto) 0.2 x10^3/uL (0.0-0.7) 0.0 x10^3/uL (0.0-0.7) Basophils # (Auto) 0.1 x10^3/uL (0.0-0.2) 0.0 x10^3/uL (0.0-0.2) Sodium Level 145 mmol/L (136-145) 140 mmol/L (136-145) Potassium Level 3.8 mmol/L (3.5-5.1) 4.3 mmol/L (3.5-5.1) Chloride Level 103 mmol/L (98-107) 102 mmol/L (98-107) Carbon Dioxide Level 34 mmol/L (21-32) 32 mmol/L (21-32) Anion Gap 8 (6-14) 6 (6-14) Blood Urea Nitrogen 16 mg/dL (7-20) 17 mg/dL (7-20) Creatinine 3.2 mg/dL (0.6-1.0) 3.0 mg/dL (0.6-1.0) Estimated GFR (Cockcroft-Gault) 17.9 19.3 BUN/Creatinine Ratio 5 (6-20) Glucose Level 133 mg/dL (70-99) 238 mg/dL (70-99) Lactic Acid Level 1.2 mmol/L (0.4-2.0) Calcium Level 8.1 mg/dL (8.5-10.1) 7.7 mg/dL (8.5-10.1) Magnesium Level 2.2 mg/dL (1.8-2.4) Total Bilirubin 0.3 mg/dL (0.2-1.0) Aspartate Amino Transf (AST/SGOT) 39 U/L (15-37) Alanine Aminotransferase (ALT/SGPT) 25 U/L (14-59) Alkaline Phosphatase 132 U/L (46-116) Myoglobin 182 ng/mL (9-82) Troponin I Quantitative 0.090 ng/mL (0.000-0.055) 0.035 ng/mL (0.000-0.055) Total Protein 6.3 g/dL (6.4-8.2) Albumin 2.0 g/dL (3.4-5.0) Albumin/Globulin Ratio 0.5 (1.0-1.7) Thyroid Stimulating Hormone (TSH) 24.215 uIU/mL (0.358-3.74) Segmented Neutrophils % 94 % (35-66) Band Neutrophils % 2 % (0-9) Lymphocytes % 3 % (24-48) Monocytes % 1 % (0-10) Nucleated Red Blood Cells 1 Toxic Vacuolation Slight Platelet Estimate Decreased (ADEQUATE) Polychromasia Slight Anisocytosis Mod Creatine Kinase 220 U/L (26-192) Urine Collection Type Void Urine Color Yellow Urine Clarity Clear Urine pH 6.5 (<5.0-8.0) Urine Specific [place] 1.010 (1.000-1.030) Urine Protein >=300 mg/dL (NEG-TRACE) Urine Glucose (UA) 100 mg/dL (NEG) Urine Ketones (Stick) Negative mg/dL (NEG) Urine Blood Small (NEG) Urine Nitrite Negative (NEG) Urine Bilirubin Negative (NEG) Urine Urobilinogen Dipstick 0.2 mg/dL (0.2 mg/dL) Urine Leukocyte Esterase Negative (NEG) Urine RBC Occ /HPF (0-2) Urine WBC 0 /HPF (0-4) Urine Bacteria 0 /HPF (0-FEW) Assessment/Plan Assessment/Plan IMP JACKIE-ATN CKD STAGE 2 TO 3A MET ENCEPHALOPATHY RECENT COVID 19 PNA WITH ACUTE RESP FAILURE CM WITH EF OF 45% AND AICD P AFIB DM II HTN PLAN AVOID NEPHROTOXINS HYDRATION SUPPLEMENTAL O2 WILL FOLLOW SUMA SCHMID MD Nov 26, 2020 15:55
[2020-11-26] MEDS ORDERED: FUROSEMIDE 40 MG/4 ML VIAL. IVP ONE (16:00)
[2020-11-26] MEDS ORDERED: IPRATRPIUM/ALBUTEROL 0.5/2.5MG 3 ML NEBU. NEB SCH (16:00)
[2020-11-26] MEDS: IPRATROPIUM/ALBUTEROL 20/100mcg/INH INHALER. INH SCH ×2 (17:00→20:34)
[2020-11-26] MEDS ORDERED: ACETAMINOPHEN 325 MG TABLET. PO SCH (18:00)
[2020-11-26 19:00] VITALS: BP 116/62
[2020-11-26] MEDS: rOPINIRole 1 MG TABLET. PO SCH (20:34)
[2020-11-26] MEDS: FAMOTIDINE 20 MG TABLET. PO SCH (20:34)
[2020-11-26] MEDS: CHLORHEXIDINE 0.12% 15 ML MOUTHWASH. SWSP SCH (20:35)
[2020-11-26] MEDS: ATORVASTATIN CALCIUM 10 MG TABLET. PO SCH (20:35)
[2020-11-26 22:38] VITALS: BP 144/71
[2020-11-27 02:42] VITALS: BP 164/84
[2020-11-27] MEDS: LEVOTHYROXINE 112 MCG TABLET PO SCH (06:25)
[2020-11-27 07:00] VITALS: BP 157/84
[2020-11-27] MEDS: POLYETHYLENE GLYCOL 3350 17 GM PACKET. PO SCH (08:38)
[2020-11-27] MEDS: buPROPion XL 150 MG TAB.ER.24H. PO SCH (08:38)
[2020-11-27] MEDS: GABAPENTIN 100 MG CAPSULE. PO SCH ×3 (08:38→22:55)
[2020-11-27] MEDS: CHLORHEXIDINE 0.12% 15 ML MOUTHWASH. SWSP SCH ×2 (08:38→22:55)
[2020-11-27] MEDS: rOPINIRole 1 MG TABLET. PO SCH ×2 (08:38→22:55)
[2020-11-27] MEDS: CALCIUM CARBONATE 500 MG TABLET PO SCH (08:38)
[2020-11-27] MEDS: IPRATROPIUM/ALBUTEROL 20/100mcg/INH INHALER. INH SCH ×4 (08:38→22:57)
[2020-11-27 09:21] LABS: CALCIUM 7.4 mg/dL (8.5-10.1); CREATININE 2.9 mg/dL (0.6-1.0); GFR 20.1; POTASSIUM 3.9 mmol/L (3.5-5.1); URIC ACID 6.3 mg/dL (2.6-6.0)
[2020-11-27] MEDS: ENOXAPARIN 30 MG/0.3 ML SYRINGE. SQ SCH (10:52)
[2020-11-27] MEDS: MULTIVITAMIN with MINERAL TABLET. PO SCH (10:52)
[2020-11-27] MEDS: ASCORBIC ACID 500 MG TABLET PO SCH (10:52)
[2020-11-27 11:00] VITALS: BP 140/77
--- NOTE | 2020-11-27 12:26 | PDOC ---
PROGRESS NOTES Date of Service: DATE: 11/27/20 TIME: 12:25 Chief Complaint Chief Complaint VTE Prophylaxis Ordered VTE Prophylaxis Devices: Yes VTE Pharmacological Prophylaxi: Yes Assessment/Plan Assessment/Plan IMPRESSION ACUTE ALTERED MENTAL STATUS Metabolic encephalopathy with underlying anxiety, depression, schizoaffective disorder. PNEUMONIA Increased patchy mid and bibasilar opacities, represent atelectasis or developing consolidations. possible aspiration pneumonia Bilateral pleural effusions, left greater than right, unchanged. RECENT Fall - ct head negative, no other pain complaints, no fracture CHF s/p AICD not tolerant of BB, allergic to IZZY/ARB. 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 Encephalopathy - chronic due to schizophrenia Schizophrenia - Hypertension. Obesity COVID positive - 10/30/2020, still positive JACKIE- Suspect ATN- no improvement , UA No Micr hematuria - Renal Bx ordered , per nursing report IR unable to at this time Supportive care , strict I/O ,avoid nephrotoxins Anemia - Hgb dropping, postmenopausal bleeding , D and C 11/20/2019, stable now Proteinuria- Nephrotic, No Micr hematuria , No WBC's or cast CKD stage 2/3 Cardiomyopathy with EF 45% s/p AICD PLAN ADMIT Consult pulmonary consult nephrology IV FLUID SUPPORT pt/ot/st Secondary prevention Echo if COVID negative Ongoing lung optimization Plan outpatient ischemic evaluation Justifications for Admission Justifications for Admission Other Justification Fall, new right pleural effusion History of Present Illness History of Present Illness Identification/Chief Complaint Chief Complaint INC CONFUSION, ALTERED MENTATION// SOA History of Present Illness History of Present Illness SEEN IN ER WITH WORSENING HYPOXIA 60 year old female coming in from nursing facility for worsening mental status and hypoxia. Per staff report she was satting in the 80s on 2.5 L nasal cannula. Patient was hospitalized at this fa cility for Covid 19 and intubated. Her test was + October 30. She was also seen again and discharged yesterday after a 3-day stay. baseline on 2.5 L nasal cannula Ms Mulligan is a 60 yo F w/ PMHx schizoaffective disorder, CHF with AICD in place, HLD, afib, depression with anxiety, HTN who returns to the hospital after a fall RECENTLY, D/C ON 11-23, Patient was just discharged the day prior after prolonged stay secondary to COVID-19 pneumonia (tested positive on 10/30/2020 - still positive on 11/21/20), acute respiratory failure, acute renal insufficiency, and postmenopausal bleeding s/p D&C. At baseline she feels on 3 to 4 L nasal cannula, [facility] Patient reportedly HAD ALTERED MENTAL STATUS WITH WORSENING HYPOXIA and was sent to the ER for evaluation. Past Medical History Past Medical History Past Medical History Past Medical History Past Medical History: A-Fib, Anxiety, Asthma, CHF, Constipation, Depression, Diabetes-Type II, GERD, High Cholesterol, Hypothyroid, Schizophrenia, Other Additional Past Medical Histor: SCHIZOAFFECTIVE, RESTLESS LEG Past Surgical History: Pacemaker Additional Past Surgical Histo: Pacemaker/defib/BATTERY REPLACED Smoking Status: Former Smoker Alcohol Use: None Drug Use: None FHX OBESITY Cardiovascular: CHF, HTN, Hyperlipidemia, Other Pulmonary: Asthma CENTRAL NERVOUS SYSTEM: Other GI: GERD, Other Heme/Onc: No pertinent hx Hepatobiliary: No pertinent hx Psych: Anxiety, Depression, Schizophrenia Musculoskeletal: Osteoarthritis, Other Rheumatologic: No pertinent hx Infectious disease: No pertinent hx Renal/: Chronic renal insuff, UTI Endocrine: Diabetes, Hypothyroidism Past Surgical History Past Surgical History: Pacemaker Family History Family History: Hypertension, Family History Unknown Social History Smoke: No ALCOHOL: none Drugs: None Current Problem List Problem List Problems Medical Problems: (1) COVID-19 Status: Acute (2) HCAP (healthcare-associated pneumonia) Vitals Vitals Vital Signs Date Time Temp Pulse Resp B/P (MAP) Pulse Ox O2 Delivery O2 Flow Rate FiO2 11/27/20 11:00 97.5 106 18 140/77 (98) 90 Nasal Cannula 2.0 97.5 Physical Exam Physical Exam Eyes: PERRLA, conjunctiva normal, no discharge. [] Neck: No rigidity, supple, no stridor. [] Cardiovascular: Regular rate and rhythm, brisk cap refill [] Lungs & Thorax: Non labored symmetric respirations, no tachypnea or respiratory distress [] Abdomen: Soft, nondistended no tenderness palpation, no guarding. Skin: Warm, dry, no erythema, no rash. [] Back: No tenderness, no CVA tenderness. [] Extremities: No deformities, range of motion grossly intact, no lower extremity edema [] Neurologic: Alert and oriented X 2, no focal deficits noted. [] Psychologic: Affect normal, judgment normal, mood normal. [] General: No acute distress Breasts: Not examined Rectal Exam: not examined PELVIC: Examination not indicated Extremities: No cyanosis Neuro: Cranial nerves 3-12 NL General: Cooperative Heart: Regular rate Lungs: Clear Abdomen: Normal bowel sounds, Soft Extremities: No cyanosis Skin: No rashes Labs LABS PATIENT: MARCOS MULLIGAN ACCOUNT: [id number] : 1960 LOCATION: ER AGE: 60 SEX: F EXAM STATUS: REG ER ORD. PHYSICIAN: MARY ELLEN FREEMAN MD REASON: hypoxic PROCEDURE: CHEST AP ONLY XR CHEST 1V History: Reason: hypoxic / Spl. Instructions: / History: Comparison: November 21, 2020 Findings: Small to moderate left pleural effusion, unchanged. Small right pleural effusion, unchanged. Increased patchy left mid and bibasilar opacities. Unchanged heart size. Stable left-sided pacemaker. No pneumothorax. Impression: 1. Increased patchy mid and bibasilar opacities, represent atelectasis or developing consolidations. 2. Bilateral pleural effusions, left greater than right, unchanged. Electronically signed by: Wilfredo Nagel DO (11/25/2020 9:08 PM) [facility] DICTATED and SIGNED BY: WILFREDO NAGEL DO DATE: 11/25/20 [id number] Laboratory Tests Test 11/27/20 08:10 Sodium Level 146 mmol/L (136-145) Potassium Level 3.9 mmol/L (3.5-5.1) Chloride Level 106 mmol/L (98-107) Carbon Dioxide Level 32 mmol/L (21-32) Anion Gap 8 (6-14) Blood Urea Nitrogen 17 mg/dL (7-20) Creatinine 2.9 mg/dL (0.6-1.0) Estimated GFR (Cockcroft-Gault) 20.1 Glucose Level 92 mg/dL (70-99) Uric Acid 6.3 mg/dL (2.6-6.0) Calcium Level 7.4 mg/dL (8.5-10.1) Assessment and Plan Assessmemt and Plan Problems Medical Problems: (1) COVID-19 Status: Acute (2) HCAP (healthcare-associated pneumonia) Status: Acute Comment Review of Relevant I have reviewed the following items lucas (where applicable) has been applied. Labs Laboratory Tests Test 11/25/20 20:50 11/26/20 08:35 11/26/20 10:12 11/27/20 08:10 White Blood Count 9.3 x10^3/uL (4.0-11.0) 8.8 x10^3/uL (4.0-11.0) Red Blood Count 2.66 x10^6/uL (3.50-5.40) 2.60 x10^6/uL (3.50-5.40) Hemoglobin 8.1 g/dL (12.0-15.5) 7.9 g/dL (12.0-15.5) Hematocrit 25.1 % (36.0-47.0) 24.8 % (36.0-47.0) Mean Corpuscular Volume 95 fL (79-100) 95 fL (79-100) Mean Corpuscular Hemoglobin 31 pg (25-35) 30 pg (25-35) Mean Corpuscular Hemoglobin Concent 32 g/dL (31-37) 32 g/dL (31-37) Red Cell Distribution Width 17.7 % (11.5-14.5) 18.1 % (11.5-14.5) Platelet Count 89 x10^3/uL (140-400) 70 x10^3/uL (140-400) Neutrophils (%) (Auto) 72 % (31-73) 94 % (31-73) Lymphocytes (%) (Auto) 17 % (24-48) 5 % (24-48) Monocytes (%) (Auto) 7 % (0-9) 1 % (0-9) Eosinophils (%) (Auto) 2 % (0-3) 0 % (0-3) Basophils (%) (Auto) 1 % (0-3) 1 % (0-3) Neutrophils # (Auto) 6.7 x10^3/uL (1.8-7.7) 8.3 x10^3/uL (1.8-7.7) Lymphocytes # (Auto) 1.6 x10^3/uL (1.0-4.8) 0.4 x10^3/uL (1.0-4.8) Monocytes # (Auto) 0.7 x10^3/uL (0.0-1.1) 0.1 x10^3/uL (0.0-1.1) Eosinophils # (Auto) 0.2 x10^3/uL (0.0-0.7) 0.0 x10^3/uL (0.0-0.7) Basophils # (Auto) 0.1 x10^3/uL (0.0-0.2) 0.0 x10^3/uL (0.0-0.2) Sodium Level 145 mmol/L (136-145) 140 mmol/L (136-145) 146 mmol/L (136-145) Potassium Level 3.8 mmol/L (3.5-5.1) 4.3 mmol/L (3.5-5.1) 3.9 mmol/L (3.5-5.1) Chloride Level 103 mmol/L (98-107) 102 mmol/L (98-107) 106 mmol/L (98-107) Carbon Dioxide Level 34 mmol/L (21-32) 32 mmol/L (21-32) 32 mmol/L (21-32) Anion Gap 8 (6-14) 6 (6-14) 8 (6-14) Blood Urea Nitrogen 16 mg/dL (7-20) 17 mg/dL (7-20) 17 mg/dL (7-20) Creatinine 3.2 mg/dL (0.6-1.0) 3.0 mg/dL (0.6-1.0) 2.9 mg/dL (0.6-1.0) Estimated GFR (Cockcroft-Gault) 17.9 19.3 20.1 BUN/Creatinine Ratio 5 (6-20) Glucose Level 133 mg/dL (70-99) 238 mg/dL (70-99) 92 mg/dL (70-99) Lactic Acid Level 1.2 mmol/L (0.4-2.0) Calcium Level 8.1 mg/dL (8.5-10.1) 7.7 mg/dL (8.5-10.1) 7.4 mg/dL (8.5-10.1) Magnesium Level 2.2 mg/dL (1.8-2.4) Total Bilirubin 0.3 mg/dL (0.2-1.0) Aspartate Amino Transf (AST/SGOT) 39 U/L (15-37) Alanine Aminotransferase (ALT/SGPT) 25 U/L (14-59) Alkaline Phosphatase 132 U/L (46-116) Myoglobin 182 ng/mL (9-82) Troponin I Quantitative 0.090 ng/mL (0.000-0.055) 0.035 ng/mL (0.000-0.055) Total Protein 6.3 g/dL (6.4-8.2) Albumin 2.0 g/dL (3.4-5.0) Albumin/Globulin Ratio 0.5 (1.0-1.7) Thyroid Stimulating Hormone (TSH) 24.215 uIU/mL (0.358-3.74) Segmented Neutrophils % 94 % (35-66) Band Neutrophils % 2 % (0-9) Lymphocytes % 3 % (24-48) Monocytes % 1 % (0-10) Nucleated Red Blood Cells 1 Toxic Vacuolation Slight Platelet Estimate Decreased (ADEQUATE) Polychromasia Slight Anisocytosis Mod Creatine Kinase 220 U/L (26-192) WL-Kdl-[id number]-Type Natriuretic Peptide 5243 pg/mL (0-124) Urine Collection Type Void Urine Color Yellow Urine Clarity Clear Urine pH 6.5 (<5.0-8.0) Urine Specific [place] 1.010 (1.000-1.030) Urine Protein >=300 mg/dL (NEG-TRACE) Urine Glucose (UA) 100 mg/dL (NEG) Urine Ketones (Stick) Negative mg/dL (NEG) Urine Blood Small (NEG) Urine Nitrite Negative (NEG) Urine Bilirubin Negative (NEG) Urine Urobilinogen Dipstick 0.2 mg/dL (0.2 mg/dL) Urine Leukocyte Esterase Negative (NEG) Urine RBC Occ /HPF (0-2) Urine WBC 0 /HPF (0-4) Urine Bacteria 0 /HPF (0-FEW) Uric Acid 6.3 mg/dL (2.6-6.0) Laboratory Tests Test 11/27/20 08:10 Sodium Level 146 mmol/L (136-145) Potassium Level 3.9 mmol/L (3.5-5.1) Chloride Level 106 mmol/L (98-107) Carbon Dioxide Level 32 mmol/L (21-32) Anion Gap 8 (6-14) Blood Urea Nitrogen 17 mg/dL (7-20) Creatinine 2.9 mg/dL (0.6-1.0) Estimated GFR (Cockcroft-Gault) 20.1 Glucose Level 92 mg/dL (70-99) Uric Acid 6.3 mg/dL (2.6-6.0) Calcium Level 7.4 mg/dL (8.5-10.1) Microbiology 11/25/20 Blood Culture - Preliminary, Resulted NO GROWTH AFTER 1 DAY Medications Current Medications Sodium Chloride 1,000 ml @ 1,000 mls/hr 1X ONCE IV Last administered on 11/25/20at 20:52; Start 11/25/20 at 20:45; Stop 11/25/20 at 21:44; Status DC Dexamethasone Sodium Phosphate (Decadron) 10 mg 1X ONCE IV Last administered on 11/25/20at 23:54; Start 11/25/20 at 23:15; Stop 11/25/20 at 23:16; Status DC Ceftriaxone Sodium (Rocephin) 1 gm 1X ONCE IVP ; Start 11/25/20 at 23:15; Stop 11/25/20 at 23:25; Status DC Azithromycin 250 ml @ 250 mls/hr 1X ONCE IV ; Start 11/25/20 at 23:15; Stop 11/25/20 at 23:25; Status DC Ondansetron HCl (Zofran) 4 mg PRN Q8HRS PRN IV NAUSEA/VOMITING; Start 11/25/20 at 23:15; Stop 11/26/20 at 23:14; Status DC Acetaminophen (Tylenol) 650 mg PRN Q4HRS PRN PO FEVER > 100.3'F; Start 11/25/20 at 23:15; Stop 11/26/20 at 23:14; Status DC Sodium Chloride 1,000 ml @ 75 mls/hr 1X ONCE IV Last administered on 11/25/20at 23:55; Start 11/25/20 at 23:15; Stop 11/26/20 at 12:34; Status DC Piperacillin Sod/ Tazobactam Sod 2.25 gm/Sodium Chloride 50 ml @ 100 mls/hr 1X ONCE IV Last administered on 11/25/20at 23:30; Start 11/25/20 at 23:30; Stop 11/25/20 at 23:59; Status DC Vancomycin HCl 1.25 gm/Sodium Chloride 250 ml @ 250 mls/hr 1X ONCE IV Last administered on 11/26/20at 00:38; Start 11/25/20 at 23:30; Stop 11/26/20 at 00:29; Status DC Sodium Chloride (Normal Saline Flush) 3 ml QSHIFT PRN IV AFTER MEDS AND BLOOD DRAWS; Start 11/26/20 at 10:30 Sodium Chloride 1,000 ml @ 75 mls/hr [id number] IV Last administered on 11/26/20at 20:36; Start 11/26/20 at 10:30 Ondansetron HCl (Zofran) 4 mg PRN Q4HRS PRN IV NAUSEA/VOMITING; Start 11/26/20 at 10:30 Acetaminophen (Tylenol) 650 mg PRN Q4HRS PRN PO TEMP OVER 100.4F OR MILD PAIN; Start 11/26/20 at 10:30 Acetaminophen (Tylenol Supp) 650 mg PRN Q4HRS PRN WA TEMP OVER 100.4F OR MILD PAIN; Start 11/26/20 at 10:30 Sodium Monofluorophosphate (Fleet Adult) 133 ml PRN DAILY PRN WA CONSTIPATION; Start 11/26/20 at 10:30 Docusate Sodium (Colace) 100 mg PRN BID PRN PO HARD STOOLS; Start 11/26/20 at 10:30 Albuterol Sulfate (Ventolin Neb Soln) 2.5 mg PRN Q4HRS PRN NEB SHORTNESS OF BREATH; Start 11/26/20 at 10:30 Guaifenesin (Robitussin) 200 mg PRN Q4HRS PRN PO COUGH; Start 11/26/20 at 10:30 Enoxaparin Sodium (Lovenox 30mg Syringe) 30 mg Q24H SQ Last administered on 11/27/20at 10:52; Start 11/26/20 at 11:00 Acetaminophen (Tylenol) 650 mg Q6HRS PO ; Start 11/26/20 at 18:00; Status UNV Atorvastatin Calcium (Lipitor) 10 mg HS PO Last administered on 11/26/20at 20:35; Start 11/26/20 at 21:00 Bupropion HCl (Wellbutrin Xl) 150 mg DAILY PO Last administered on 11/27/20 08:38; Start 11/27/20 at 09:00 Calcium Carbonate/ Glycine (Oscal) 500 mg DAILY PO Last administered on 11/27/20at 08:38; Start 11/27/20 at 09:00 Chlorhexidine Gluconate (Peridex) 15 ml BID SWSP Last administered on 11/27/20 08:38; Start 11/26/20 at 21:00 Famotidine (Pepcid) 20 mg HS PO Last administered on 11/26/20at 20:34; Start 11/26/20 at 21:00 Gabapentin (Neurontin) 100 mg TID PO Last administered on 11/27/20 08:38; Start 11/26/20 at 14:00 Albuterol/ Ipratropium (Duoneb) 3 ml Q4HRS NEB ; Start 11/26/20 at 16:00; Stop 11/26/20 at 16:29; Status DC Levothyroxine Sodium (Synthroid) 112 mcg DAILY06 PO Last administered on 11/27/20at 06:25; Start 11/27/20 at 06:00 Nystatin (Nystop) 1 scott PRN BID PRN TP RASH; Start 11/26/20 at 12:15 Polyethylene Glycol (miraLAX PACKET) 17 gm DAILY PO Last administered on 11/27/20at 08:38; Start 11/27/20 at 09:00 Ropinirole HCl (Requip) 1 mg BID PO Last administered on 11/27/20 08:38; Start 11/26/20 at 21:00 Simethicone (Gas-X) 160 mg PRN Q2HRS PRN PO GAS / BLOATING; Start 11/26/20 at 12:15 Furosemide (Lasix) 40 mg 1X ONCE IVP Last administered on 11/26/20at 16:19; Start 11/26/20 at 16:00; Stop 11/26/20 at 16:01; Status DC Albuterol/ Ipratropium (Combivent Respimat 20-100 Mcg) 1 puff RTQID INH Last administered on 11/27/20at 10:53; Start 11/26/20 at 17:00 Multivitamins (Thera M Plus) 1 tab DAILY PO Last administered on 11/27/20at 10:52; Start 11/27/20 at 11:00 Ascorbic Acid (Vitamin C) 500 mg DAILY PO Last administered on 11/27/20at 10:52; Start 11/27/20 at 11:00 Active Scripts Active Dicyclomine Hcl 20 Mg Tablet 1 Tab PO TID 10 Days Reported Tramadol Hcl 50 Mg Tablet 50 Mg PO Q6HRS PRN Mylanta Maximum Strength Liq (Mag Hydrox/Aluminum Hyd/Simeth) 355 Ml Oral.susp 30 Ml PO PRN PRN Ativan (Lorazepam) 0.5 Mg Tablet 0.5 Mg PO Q8HRS PRN Ibu (Ibuprofen) 400 Mg Tablet 1 Tab PO Q6HRS PRN 5 Days NEEDED FOR PAIN Wellbutrin Xl (Bupropion Hcl) 150 Mg Tab.er.24h 150 Mg PO DAILY Artificial Tears Drops (Peg 400/Hypromellose/Glycerin) 15 Ml Drops 1 Drop OS QID 30 Days Folic Acid 0.4 Mg Tablet 0.4 Mg PO DAILY Duoneb 0.5-3(2.5) Mg/3 Ml (Albuterol/Ipratropium) 3 Ml Ampul.neb 3 Ml NEB Q4HRS Clonidine Hcl 0.2 Mg Tablet 0.2 Mg PO TID Multiple Vitamins (Multivitamin) 1 Each Tablet 1 Tab PO DAILY 30 Days Miralax (Polyethylene Glycol 3350) 17 Gm Powd.pack 1 Packet PO DAILY 2 Days dissolve in water Famotidine 20 Mg Tablet 20 Mg PO HS Zofran (Ondansetron Hcl) 4 Mg Tablet 4 Mg PO Q8HRS PRN Tears Again (Polyvinyl Alcohol) 15 Ml Drops 2 Drop EACHEYE Q4HRS 30 Days Polyvinyl Alcohol 15 Ml Drops 2 Drop EACHEYE Q4HRS 30 Days Ropinirole Hcl 1 Mg Tablet 1 Mg PO BID Magnesium Oxide 400 Mg Tablet 400 Mg PO DAILY Loratadine 10 Mg Tablet 10 Mg PO DAILY Humalog (Insulin Lispro) 100 Unit/1 Ml Vial 100 Unit SQ BIDWMEALS 70 - 150 0 units 151 - 200 0 units 201 - 250 2 units 251 - 300 3 units 301 - 349 4 units if FSBS is under 70 or 350 and over call MD [guaifenesin Syrup] 10 Ml PO Q4HRS PRN Coreg (Carvedilol) 25 Mg Tablet 50 Mg PO BIDWMEALS Peridex (Chlorhexidine Gluconate) 15 Ml Mouthwash 15 Ml PO BID 30 Days Swish in mouth for 30 seconds then spit out Calcium Carbonate 500 Mg Tablet 500 Mg PO Q4HRS Atorvastatin Calcium 10 Mg Tablet 10 Mg PO HS Acetaminophen 325 Mg Tablet 650 Mg PO Q6HRS Metformin Hcl 500 Mg Tablet 250 Mg PO BIDWMEALS Imodium A-D (Loperamide HCl) 2 Mg Capsule 2 Mg PO DAILY PRN Risperidone 0.5 Mg Tablet 2 Mg PO DAILY Risperidone 1 Mg Tablet 1 Tab PO QHS Levothyroxine Sodium 112 Mcg Tablet 1 Tab PO DAILY Advair 500-50 Diskus (Fluticasone/Salmeterol) 1 Each Disk.w.dev 1 Puff IH BID Nystatin 15 Gm Powder 1 Scott TP PRN BID PRN Clonazepam (Clonazepam) 0.5 Mg Tablet 1 Tab PO BID Gas-X (Simethicone) 80 Mg Tab.chew 160 Mg PO Q2HR PRN Gabapentin (Gabapentin) 100 Mg Capsule 100 Mg PO TID Vitals/I & O Vital Sign - Last 24 Hours 11/26/20 11/26/20 11/26/20 11/26/20 12:35 13:35 15:40 16:33 Temp 96.9 96.9 Pulse 90 88 92 Resp 19 20 16 B/P (MAP) 120/58 (78) Pulse Ox 96 94 91 92 O2 Delivery Nasal Cannula Nasal Cannula O2 Flow Rate 2.0 2.0 11/26/20 11/26/20 11/26/20 11/27/20 19:00 20:00 22:38 02:42 Temp 97.9 97.8 97.9 97.9 97.8 97.9 Pulse 83 97 120 Resp 18 18 18 B/P (MAP) 116/62 (80) 144/71 (95) 164/84 (110) Pulse Ox 98 94 90 O2 Delivery Nasal Cannula Nasal Cannula Nasal Cannula Nasal Cannula O2 Flow Rate 2.0 2.0 2.0 2.0 11/27/20 11/27/20 11/27/20 07:00 08:00 11:00 Temp 97.9 97.5 97.9 97.5 Pulse 120 106 Resp 20 18 B/P (MAP) 157/84 (108) 140/77 (98) Pulse Ox 95 90 O2 Delivery Nasal Cannula Nasal Cannula Nasal Cannula O2 Flow Rate 2.0 3.0 2.0 Intake and Output 0 11/26/20 11/26/20 11/27/20 15:00 23:00 07:00 Intake Total 1130 ml 300 ml Balance 1130 ml 300 ml Justicifation of Admission Dx: Justifications for Admission: Justification of Admission Dx: Yes WAYNE TROY MD Nov 27, 2020 12:26
[2020-11-27] MEDS: IV NORMAL SALINE 1000ML BAG 1,000 ML IV SCH (13:49)
--- NOTE | 2020-11-27 14:11 | NUR ---
SW following for discharge planning. Spoke with RN and reviewed chart. Pt on 2l 02, oral medications, COVID positive. Pt resides in LTC at [facility]. SW faxed clinicals to update. Discharge plan is back to DC when stable.
--- NOTE | 2020-11-27 14:44 | PDOC ---
ANURAG MANRIQUE SAW FILER 11/27/20 1444: CARDIO Progress Notes Date and Time Date of Service 11/27/2020 Time of Evaluation 1140 Subjective Subjective: No Chest Pain, No Palpitations, Other (SOA better) Vitals Vitals Vital Signs Date Time Temp Pulse Resp B/P (MAP) Pulse Ox O2 Delivery O2 Flow Rate FiO2 11/27/20 11:00 97.5 106 18 140/77 (98) 90 Nasal Cannula 2.0 97.5 Weight Weight [ ] Input and Output Intake and Output Intake and Output 11/27/20 07:00 Intake Total 1430 ml Balance 1430 ml Intake Oral 300 ml IV Total 1130 ml # Voids 4 # Bowel Movements 2 Laboratory Labs Laboratory Tests Test 11/27/20 08:10 Sodium Level 146 mmol/L (136-145) Potassium Level 3.9 mmol/L (3.5-5.1) Chloride Level 106 mmol/L (98-107) Carbon Dioxide Level 32 mmol/L (21-32) Anion Gap 8 (6-14) Blood Urea Nitrogen 17 mg/dL (7-20) Creatinine 2.9 mg/dL (0.6-1.0) Estimated GFR (Cockcroft-Gault) 20.1 Glucose Level 92 mg/dL (70-99) Uric Acid 6.3 mg/dL (2.6-6.0) Calcium Level 7.4 mg/dL (8.5-10.1) Microbiology Micro Microbiology 11/25/20 Blood Culture - Preliminary, Resulted NO GROWTH AFTER 1 DAY Physical Exam HEENT: Neck Supple W Full Motion Chest: Symmetric LUNGS: Other (diminished bases) Heart: RRR (v-pace with underlying SR) Abdomen: Soft N/T, Other (obese) Extremities: Other (1+ bilateral LE edema ) Neurology: alert, oriented, follow commands, confused, other (drowsy) Assessment Assessment 1. Metabolic encephalopathy with underlying anxiety, depression, schizo affective disorder. 2. Acute respiratory failure with recent COVID PNA requiting intubation. SOA better. Covid-19 again + on 11/21/2020 3. Acute on chronic systolic CHF: appears compensated 4. Mild troponin elevated; peak 0.09. Most probable type II, demand ischemia. 5. Cardiomyopathy s/p AICD ([place]): prior EF at 45%. 6. PAFIB; presently v-paced with underlying sinus tach. no further arrhythmias 7. Hypertension; controlled 8. Hyperlipidemia; statin. 9. Diabetes, II 10. JACKIE on CKD: nephrology following. CR improved at 2.9 11. Hypothyroidism; on replacement Recommendations 1. Tachy currently as BB was not resumed. Metoprolol for rate control, HF optimization. Will consider hydralazine/imdur addition if BP remains labile. 2. No ACEi/ARB with JACKIE 3. Lasix PRN 4. Secondary prevention measures 5. Consider ID input in regards to pt possible infectious state with again + PCR for covid-19 6. Plan outpatient ischemic evaluation Justicifation of Admission Dx: Justifications for Admission: Justification of Admission Dx: Yes RADHA SWAN MD 11/28/20 0600: CARDIO Progress Notes Assessment Assessment Patient seen 11/27/20. Agree with DIRECTOR OF BUSINESS CONTINUITY's assessment and plan. Ac on chr systolic HF better compensated Tele showed V-paced rhythm Agree with resuming metoprolol Continue management of metabolic encephalopathy per IM Slight troponin elevation probably demand ischemia. Plan ischemic evaluation as outpatient. ANURAG MANRIQUE APRN Nov 27, 2020 14:44 RADHA SWAN MD Nov 28, 2020 06:00
--- NOTE | 2020-11-27 14:46 | NUR ---
called consult to dr latoya eduardo at this time
[2020-11-27 15:00] VITALS: BP 141/86
[2020-11-27] MEDS ORDERED: METOPROLOL SUCC 24HR ER 100 MG TAB.ER.24H. PO ONE (15:00)
--- NOTE | 2020-11-27 15:57 | NUR ---
Wound/Ostomy Care Wound Type/Assessment: consult for left buttock wound, pt known to WC team from previous admission. Wound of unknown origin, started as blisters per our charting, appears to be resolving. Treatment Recommendations/Plan: Cleanse wounds and apply calazime bid and prn Education provided: pt educated on PU prevention and turning while in bed Offloading surface/device: pillows, purple wedge Recommended Referrals/Tests: n/a Discharge Recommendations for dressings: continue with calazime cream bid and prn
--- NOTE | 2020-11-27 18:00 | PDOC ---
Renal-Progress Notes Subjective Notes Notes NO NEW COMPLAINT History of Present Illness Hx of present illness NO ACUTE CHANGES Vitals Vitals Vital Signs Date Time Temp Pulse Resp B/P (MAP) Pulse Ox O2 Delivery O2 Flow Rate FiO2 11/27/20 15:00 97.5 102 18 141/86 (104) 94 Nasal Cannula 2.0 97.5 Weight Weight [ ] I.O. Intake and Output Intake and Output 11/27/20 07:00 Intake Total 1430 ml Balance 1430 ml Intake Oral 300 ml IV Total 1130 ml # Voids 4 # Bowel Movements 2 Labs Labs Laboratory Tests Test 11/27/20 08:10 Sodium Level 146 mmol/L (136-145) Potassium Level 3.9 mmol/L (3.5-5.1) Chloride Level 106 mmol/L (98-107) Carbon Dioxide Level 32 mmol/L (21-32) Anion Gap 8 (6-14) Blood Urea Nitrogen 17 mg/dL (7-20) Creatinine 2.9 mg/dL (0.6-1.0) Estimated GFR (Cockcroft-Gault) 20.1 Glucose Level 92 mg/dL (70-99) Uric Acid 6.3 mg/dL (2.6-6.0) Calcium Level 7.4 mg/dL (8.5-10.1) Micro Micro Microbiology 11/26/20 Blood Culture - Preliminary, Resulted NO GROWTH AFTER 1 DAY Review of Systems Constitutional: yes: other (CONFUSED) Physical Exam General Appearance: no apparent distress Skin: warm Respiratory: decreased breath sounds Heart: S1S2 Abdomen: soft, bowel sounds present Neurology: alert, follow commands, confused, other (drowsy) Musculoskeletal: Osteoarthritis, Other Assessment Assessment IMP [id number] TO 2.9 FROM 3.2 HYPERNATREMIA CKD STAGE 2 TO 3A MET ENCEPHALOPATHY RECENT COVID 19 PNA WITH ACUTE RESP FAILURE CM WITH EF OF 45% AND AICD P AFIB DM II HTN PLAN AVOID NEPHROTOXINS HYDRATION-HYPOTONIC SALINE SUPPLEMENTAL O2 WILL FOLLOW SUMA SCHMID MD Nov 27, 2020 18:00
[2020-11-27 20:02] VITALS: BP 179/90
[2020-11-27] MEDS: ATORVASTATIN CALCIUM 10 MG TABLET. PO SCH (22:55)
[2020-11-27] MEDS: FAMOTIDINE 20 MG TABLET. PO SCH (22:55)
[2020-11-27] MEDS: IV 1/2 NORMAL SALINE 1,000 ML IV SCH (22:56)
[2020-11-27 23:02] VITALS: BP 154/87
[2020-11-28 03:22] VITALS: BP 138/88
[2020-11-28] MEDS: LEVOTHYROXINE 112 MCG TABLET PO SCH (06:12)
[2020-11-28 07:00] VITALS: BP 180/100
[2020-11-28] MEDS: IPRATROPIUM/ALBUTEROL 20/100mcg/INH INHALER. INH SCH ×4 (08:28→21:37)
[2020-11-28] MEDS: IV 1/2 NORMAL SALINE 1,000 ML IV SCH ×2 (08:28→20:55)
[2020-11-28] MEDS: GABAPENTIN 100 MG CAPSULE. PO SCH ×3 (08:29→21:37)
[2020-11-28] MEDS: rOPINIRole 1 MG TABLET. PO SCH ×2 (08:29→21:37)
[2020-11-28] MEDS: CHLORHEXIDINE 0.12% 15 ML MOUTHWASH. SWSP SCH ×3 (08:29→21:37)
[2020-11-28] MEDS: ENOXAPARIN 30 MG/0.3 ML SYRINGE. SQ SCH (08:29)
[2020-11-28] MEDS: buPROPion XL 150 MG TAB.ER.24H. PO SCH (08:29)
[2020-11-28] MEDS: ASCORBIC ACID 500 MG TABLET PO SCH (08:30)
[2020-11-28] MEDS: POLYETHYLENE GLYCOL 3350 17 GM PACKET. PO SCH ×2 (08:30→09:00)
[2020-11-28] MEDS: METOPROLOL SUCC 24HR ER 100 MG TAB.ER.24H. PO SCH (08:30)
[2020-11-28] MEDS: CALCIUM CARBONATE 500 MG TABLET PO SCH (08:30)
[2020-11-28] MEDS: MULTIVITAMIN with MINERAL TABLET. PO SCH (08:30)
--- NOTE | 2020-11-28 08:43 | PDOC ---
PROGRESS NOTES Date of Service: DATE: 11/28/20 TIME: 08:42 Chief Complaint Chief Complaint VTE Prophylaxis Ordered VTE Prophylaxis Devices: Yes VTE Pharmacological Prophylaxi: Yes Assessment/Plan Assessment/Plan IMPRESSION ACUTE ALTERED MENTAL STATUS acute Metabolic encephalopathy with underlying anxiety, depression, schizoaffective disorder. PNEUMONIA Increased patchy mid and bibasilar opacities, represent atelectasis or developing consolidations. possible aspiration pneumonia Bilateral pleural effusions, left greater than right, unchanged. RECENT Fall - ct head negative, no other pain complaints, no fracture CHF s/p AICD not tolerant of BB, allergic to IZZY/ARB. 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 Encephalopathy - chronic due to schizophrenia Schizophrenia - Hypertension. Obesity COVID positive - 10/30/2020, still positive, RECOVERING JACKIE- Suspect ATN- no improvement , UA No Micr hematuria - Renal Bx ordered , per nursing report IR unable to at this time Supportive care , strict I/O ,avoid nephrotoxins Anemia - Hgb dropping, postmenopausal bleeding , D and C 11/20/2019, stable now Proteinuria- Nephrotic, No Micr hematuria , No WBC's or cast CKD stage 2/3 Cardiomyopathy with EF 45% s/p AICD Small to moderate left pleural effusion, unchanged. Small right pleural effusion, unchanged. Increased patchy left mid and bibasilar opacities PLAN ADMIT Consult pulmonary consult nephrology IV FLUID SUPPORT pt/ot/st Secondary prevention Echo if COVID negative Ongoing lung optimization Plan outpatient ischemic evaluation D/W RN Justifications for Admission Justifications for Admission Other Justification Fall, new right pleural effusion History of Present Illness History of Present Illness Identification/Chief Complaint Chief Complaint INC CONFUSION, ALTERED MENTATION// SOA History of Present Illness History of Present Illness SEEN IN ER WITH WORSENING HYPOXIA 60 year old female coming in from nursing facility for worsening mental status and hypoxia. Per staff report she was satting in the 80s on 2.5 L nasal cannula. Patient was hospitalized at this facility for Covid 19 and intubated. Her test was + October 30. She was also seen again and discharged yesterday after a 3-day stay. baseline on 2.5 L nasal cannula Ms Mulligan is a 60 yo F w/ PMHx schizoaffective disorder, CHF with AICD in place, HLD, afib, depression with anxiety, HTN who returns to the hospital after a fall RECENTLY, D/C ON 11-23, Patient was just discharged the day prior after prolonged stay secondary to COVID-19 pneumonia (tested positive on 10/30/2020 - still positive on 11/21/20), acute respiratory failure, acute renal insufficiency, and postmenopausal bleeding s/p D&C. At baseline she feels on 3 to 4 L nasal cannula, stays in sn[facility] psych SNF. Patient reportedly HAD ALTERED MENTAL STATUS WITH WORSENING HYPOXIA and was sent to the ER for evaluation. Past Medical History Past Medical History Past Medical History Past Medical History Past Medical History: A-Fib, Anxiety, Asthma, CHF, Constipation, Depression, Diabetes-Type II, GERD, High Cholesterol, Hypothyroid, Schizophrenia, Other Additional Past Medical Histor: SCHIZOAFFECTIVE, RESTLESS LEG Past Surgical History: Pacemaker Additional Past Surgical Histo: Pacemaker/defib/BATTERY REPLACED Smoking Status: Former Smoker Alcohol Use: None Drug Use: None FHX OBESITY Cardiovascular: CHF, HTN, Hyperlipidemia, Other Pulmonary: Asthma CENTRAL NERVOUS SYSTEM: Other GI: GERD, Other Heme/Onc: No pertinent hx Hepatobiliary: No pertinent hx Psych: Anxiety, Depression, Schizophrenia Musculoskeletal: Osteoarthritis, Other Rheumatologic: No pertinent hx Infectious disease: No pertinent hx Renal/: Chronic renal insuff, UTI Endocrine: Diabetes, Hypothyroidism Past Surgical History Past Surgical History: Pacemaker Family History Family History: Hypertension, Family History Unknown Social History Smoke: No ALCOHOL: none Drugs: None Current Problem List Problem List Problems Medical Problems: (1) COVID-19 Status: Acute (2) HCAP (healthcare-associated pneumonia) Vitals Vitals Vital Signs Date Time Temp Pulse Resp B/P (MAP) Pulse Ox O2 Delivery O2 Flow Rate FiO2 11/28/20 08:30 94 138/88 11/28/20 03:22 97.5 20 96 Nasal Cannula 2.0 97.5 Physical Exam Physical Exam Eyes: PERRLA, conjunctiva normal, no discharge. [] Neck: No rigidity, supple, no stridor. [] Cardiovascular: Regular rate and rhythm, brisk cap refill [] Lungs & Thorax: Non labored symmetric respirations, no tachypnea or respiratory distress [] Abdomen: Soft, nondistended no tenderness palpation, no guarding. Skin: Warm, dry, no erythema, no rash. [] Back: No tenderness, no CVA tenderness. [] Extremities: No deformities, range of motion grossly intact, no lower extremity edema [] Neurologic: Alert and oriented X 2, no focal deficits noted. [] Psychologic: Affect normal, judgment normal, mood normal. [] General: No acute distress Breasts: Not examined Rectal Exam: not examined PELVIC: Examination not indicated Extremities: No cyanosis Neuro: Cranial nerves 3-12 NL General: Cooperative Heart: Regular rate Lungs: Clear Abdomen: Normal bowel sounds, Soft, No tenderness Extremities: No cyanosis Skin: No rashes Labs LABS XR CHEST 1V History: Reason: hypoxic / Spl. Instructions: / History: Comparison: November 21, 2020 Findings: Small to moderate left pleural effusion, unchanged. Small right pleural effusion, unchanged. Increased patchy left mid and bibasilar opacities. Unchanged heart size. Stable left-sided pacemaker. No pneumothorax. Impression: 1. Increased patchy mid and bibasilar opacities, represent atelectasis or developing consolidations. 2. Bilateral pleural effusions, left greater than right, unchanged. Electronically signed by: Wilfredo Nagel DO (11/25/2020 9:08 PM) [facility] DICTATED and SIGNED BY: WILFREDO NAGEL DO XR CHEST 1V History: Reason: hypoxic / Spl. Instructions: / History: Comparison: November 21, 2020 Findings: Small to moderate left pleural effusion, unchanged. Small right pleural effusion, unchanged. Increased patchy left mid and bibasilar opacities. Unchanged heart size. Stable left-sided pacemaker. No pneumothorax. Impression: 1. Increased patchy mid and bibasilar opacities, represent atelectasis or developing consolidations. 2. Bilateral pleural effusions, left greater than right, unchanged. Electronically signed by: Wilfredo Nagel DO (11/25/2020 9:08 PM) [facility] DICTATED and SIGNED BY: WILFREDO NAGEL DO SPEC #: [id number] KELLY: 11/25/20 STATUS: RES REQ #: [id number] RECD: 11/26/20-[address]: MARY ELLEN FREEMAN MD SOURCE: BLOOD ENTR: 11/25/[address]: LUCAS MORA MD [facility]: ORDERED: BCULT Procedure Result BLOOD CULTURE Preliminary NO GROWTH AFTER 2 DAYS Laboratory Tests Test 11/27/20 20:45 11/28/20 07:59 Glucose (Fingerstick) 100 mg/dL (70-99) 85 mg/dL (70-99) Assessment and Plan Assessmemt and Plan Problems Medical Problems: (1) COVID-19 Status: Acute (2) HCAP (healthcare-associated pneumonia) Status: Acute CKD STAGE 2 TO 3A MET ENCEPHALOPATHY RECENT COVID 19 PNA WITH ACUTE RESP FAILURE CM WITH EF OF 45% AND AICD Comment Review of Relevant I have reviewed the following items lcuas (where applicable) has been applied. Labs Laboratory Tests Test 11/26/20 10:12 11/27/20 08:10 11/27/20 20:45 11/28/20 07:59 Urine Collection Type Void Urine Color Yellow Urine Clarity Clear Urine pH 6.5 (<5.0-8.0) Urine Specific [place] 1.010 (1.000-1.030) Urine Protein >=300 mg/dL (NEG-TRACE) Urine Glucose (UA) 100 mg/dL (NEG) Urine Ketones (Stick) Negative mg/dL (NEG) Urine Blood Small (NEG) Urine Nitrite Negative (NEG) Urine Bilirubin Negative (NEG) Urine Urobilinogen Dipstick 0.2 mg/dL (0.2 mg/dL) Urine Leukocyte Esterase Negative (NEG) Urine RBC Occ /HPF (0-2) Urine WBC 0 /HPF (0-4) Urine Bacteria 0 /HPF (0-FEW) Sodium Level 146 mmol/L (136-145) Potassium Level 3.9 mmol/L (3.5-5.1) Chloride Level 106 mmol/L (98-107) Carbon Dioxide Level 32 mmol/L (21-32) Anion Gap 8 (6-14) Blood Urea Nitrogen 17 mg/dL (7-20) Creatinine 2.9 mg/dL (0.6-1.0) Estimated GFR (Cockcroft-Gault) 20.1 Glucose Level 92 mg/dL (70-99) Uric Acid 6.3 mg/dL (2.6-6.0) Calcium Level 7.4 mg/dL (8.5-10.1) Glucose (Fingerstick) 100 mg/dL (70-99) 85 mg/dL (70-99) Laboratory Tests Test 11/27/20 20:45 11/28/20 07:59 Glucose (Fingerstick) 100 mg/dL (70-99) 85 mg/dL (70-99) Microbiology 11/26/20 Blood Culture - Preliminary, Resulted NO GROWTH AFTER 1 DAY Medications Current Medications Sodium Chloride 1,000 ml @ 1,000 mls/hr 1X ONCE IV Last administered on at 20:52; Start 11/25/20 at 20:45; Stop 11/25/20 at 21:44; Status DC Dexamethasone Sodium Phosphate (Decadron) 10 mg 1X ONCE IV Last administered on 11/25/20at 23:54; Start 11/25/20 at 23:15; Stop 11/25/20 at 23:16; Status DC Ceftriaxone Sodium (Rocephin) 1 gm 1X ONCE IVP ; Start 11/25/20 at 23:15; Stop 11/25/20 at 23:25; Status DC Azithromycin 250 ml @ 250 mls/hr 1X ONCE IV ; Start 11/25/20 at 23:15; Stop 11/25/20 at 23:25; Status DC Ondansetron HCl (Zofran) 4 mg PRN Q8HRS PRN IV NAUSEA/VOMITING; Start 11/25/20 at 23:15; Stop 11/26/20 at 23:14; Status DC Acetaminophen (Tylenol) 650 mg PRN Q4HRS PRN PO FEVER > 100.3'F; Start 11/25/20 at 23:15; Stop 11/26/20 at 23:14; Status DC Sodium Chloride 1,000 ml @ 75 mls/hr 1X ONCE IV Last administered on 11/25/20at 23:55; Start 11/25/20 at 23:15; Stop 11/26/20 at 12:34; Status DC Piperacillin Sod/ Tazobactam Sod 2.25 gm/Sodium Chloride 50 ml @ 100 mls/hr 1X ONCE IV Last administered on 11/25/20at 23:30; Start 11/25/20 at 23:30; Stop 11/25/20 at 23:59; Status DC Vancomycin HCl 1.25 gm/Sodium Chloride 250 ml @ 250 mls/hr 1X ONCE IV Last administered on 11/26/20at 00:38; Start 11/25/20 at 23:30; Stop 11/26/20 at 00:29; Status DC Sodium Chloride (Normal Saline Flush) 3 ml QSHIFT PRN IV AFTER MEDS AND BLOOD DRAWS; Start 11/26/20 at 10:30 Sodium Chloride 1,000 ml @ 75 mls/hr [id number] IV Last administered on 11/27/20at 13:49; Start 11/26/20 at 10:30; Stop 11/27/20 at 18:02; Status DC Ondansetron HCl (Zofran) 4 mg PRN Q4HRS PRN IV NAUSEA/VOMITING; Start 11/26/20 at 10:30 Acetaminophen (Tylenol) 650 mg PRN Q4HRS PRN PO TEMP OVER 100.4F OR MILD PAIN; Start 11/26/20 at 10:30 Acetaminophen (Tylenol Supp) 650 mg PRN Q4HRS PRN [place] TEMP OVER 100.4F OR MILD PAIN; Start 11/26/20 at 10:30 Sodium Monofluorophosphate (Fleet Adult) 133 ml PRN DAILY PRN [place] CONSTIPATION; Start 11/26/20 at 10:30 Docusate Sodium (Colace) 100 mg PRN BID PRN PO HARD STOOLS; Start 11/26/20 at 10:30 Albuterol Sulfate (Ventolin Neb Soln) 2.5 mg PRN Q4HRS PRN NEB SHORTNESS OF BREATH; Start 11/26/20 at 10:30 Guaifenesin (Robitussin) 200 mg PRN Q4HRS PRN PO COUGH; Start 11/26/20 at 10:30 Enoxaparin Sodium (Lovenox 30mg Syringe) 30 mg Q24H SQ Last administered on 11/28/20at 08:29; Start 11/26/20 at 11:00 Acetaminophen (Tylenol) 650 mg Q6HRS PO ; Start 11/26/20 at 18:00; Status UNV Atorvastatin Calcium (Lipitor) 10 mg HS PO Last administered on 11/27/20at 22:55; Start 11/26/20 at 21:00 Bupropion HCl (Wellbutrin Xl) 150 mg DAILY PO Last administered on 11/28/20at 08:29; Start 11/27/20 at 09:00 Calcium Carbonate/ Glycine (Oscal) 500 mg DAILY PO Last administered on 11/28/20at 08:30; Start 11/27/20 at 09:00 Chlorhexidine Gluconate (Peridex) 15 ml BID SWSP Last administered on 11/28/20at 08:29; Start 11/26/20 at 21:00 Famotidine (Pepcid) 20 mg HS PO Last administered on 11/27/20at 22:55; Start 11/26/20 at 21:00 Gabapentin (Neurontin) 100 mg TID PO Last administered on 11/28/20at 08:29; Start 11/26/20 at 14:00 Albuterol/ Ipratropium (Duoneb) 3 ml Q4HRS NEB ; Start 11/26/20 at 16:00; Stop 11/26/20 at 16:29; Status DC Levothyroxine Sodium (Synthroid) 112 mcg DAILY06 PO Last administered on 11/28/20at 06:12; Start 11/27/20 at 06:00 Nystatin (Nystop) 1 scott PRN BID PRN TP RASH; Start 11/26/20 at 12:15 Polyethylene Glycol (miraLAX PACKET) 17 gm DAILY PO Last administered on 11/28/20at 08:30; Start 11/27/20 at 09:00 Ropinirole HCl (Requip) 1 mg BID PO Last administered on 11/28/20at 08:29; Start 11/26/20 at 21:00 Simethicone (Gas-X) 160 mg PRN Q2HRS PRN PO GAS / BLOATING; Start 11/26/20 at 12:15 Furosemide (Lasix) 40 mg 1X ONCE IVP Last administered on 11/26/20at 16:19; Start 11/26/20 at 16:00; Stop 11/26/20 at 16:01; Status DC Albuterol/ Ipratropium (Combivent Respimat 20-100 Mcg) 1 puff RTQID INH Last administered on 11/28/20at 08:28; Start 11/26/20 at 17:00 Multivitamins (Thera M Plus) 1 tab DAILY PO Last administered on 11/28/20at 08:30; Start 11/27/20 at 11:00 Ascorbic Acid (Vitamin C) 500 mg DAILY PO Last administered on 11/28/20 08:30; Start 11/27/20 at 11:00 Metoprolol Succinate (Toprol Xl) 100 mg DAILY PO Last administered on 11/28/20at 08:30; Start 11/28/20 at 09:00 Metoprolol Succinate (Toprol Xl) 100 mg 1X ONCE PO Last administered on 11/27/20at 14:51; Start 11/27/20 at 15:00; Stop 11/27/20 at 15:01; Status DC Sodium Chloride 1,000 ml @ 75 mls/hr [id number] IV Last administered on 11/28/20 08:28; Start 11/27/20 at 18:15 Active Scripts Active Dicyclomine Hcl 20 Mg Tablet 1 Tab PO TID 10 Days Reported Tramadol Hcl 50 Mg Tablet 50 Mg PO Q6HRS PRN Mylanta Maximum Strength Liq (Mag Hydrox/Aluminum Hyd/Simeth) 355 Ml Oral.susp 30 Ml PO PRN PRN Ativan (Lorazepam) 0.5 Mg Tablet 0.5 Mg PO Q8HRS PRN Ibu (Ibuprofen) 400 Mg Tablet 1 Tab PO Q6HRS PRN 5 Days NEEDED FOR PAIN Wellbutrin Xl (Bupropion Hcl) 150 Mg Tab.er.24h 150 Mg PO DAILY Artificial Tears Drops (Peg 400/Hypromellose/Glycerin) 15 Ml Drops 1 Drop OS QID 30 Days Folic Acid 0.4 Mg Tablet 0.4 Mg PO DAILY Duoneb 0.5-3(2.5) Mg/3 Ml (Albuterol/Ipratropium) 3 Ml Ampul.neb 3 Ml NEB Q4HRS Clonidine Hcl 0.2 Mg Tablet 0.2 Mg PO TID Multiple Vitamins (Multivitamin) 1 Each Tablet 1 Tab PO DAILY 30 Days Miralax (Polyethylene Glycol 3350) 17 Gm Powd.pack 1 Packet PO DAILY 2 Days dissolve in water Famotidine 20 Mg Tablet 20 Mg PO HS Zofran (Ondansetron Hcl) 4 Mg Tablet 4 Mg PO Q8HRS PRN Tears Again (Polyvinyl Alcohol) 15 Ml Drops 2 Drop EACHEYE Q4HRS 30 Days Polyvinyl Alcohol 15 Ml Drops 2 Drop EACHEYE Q4HRS 30 Days Ropinirole Hcl 1 Mg Tablet 1 Mg PO BID Magnesium Oxide 400 Mg Tablet 400 Mg PO DAILY Loratadine 10 Mg Tablet 10 Mg PO DAILY Humalog (Insulin Lispro) 100 Unit/1 Ml Vial 100 Unit SQ BIDWMEALS 70 - 150 0 units 151 - 200 0 units 201 - 250 2 units 251 - 300 3 units 301 - 349 4 units if FSBS is under 70 or 350 and over call MD [guaifenesin Syrup] 10 Ml PO Q4HRS PRN Coreg (Carvedilol) 25 Mg Tablet 50 Mg PO BIDWMEALS Peridex (Chlorhexidine Gluconate) 15 Ml Mouthwash 15 Ml PO BID 30 Days Swish in mouth for 30 seconds then spit out Calcium Carbonate 500 Mg Tablet 500 Mg PO Q4HRS Atorvastatin Calcium 10 Mg Tablet 10 Mg PO HS Acetaminophen 325 Mg Tablet 650 Mg PO Q6HRS Metformin Hcl 500 Mg Tablet 250 Mg PO BIDWMEALS Imodium A-D (Loperamide HCl) 2 Mg Capsule 2 Mg PO DAILY PRN Risperidone 0.5 Mg Tablet 2 Mg PO DAILY Risperidone 1 Mg Tablet 1 Tab PO QHS Levothyroxine Sodium 112 Mcg Tablet 1 Tab PO DAILY Advair 500-50 Diskus (Fluticasone/Salmeterol) 1 Each Disk.w.dev 1 Puff IH BID Nystatin 15 Gm Powder 1 Scott TP PRN BID PRN Clonazepam (Clonazepam) 0.5 Mg Tablet 1 Tab PO BID Gas-X (Simethicone) 80 Mg Tab.chew 160 Mg PO Q2HR PRN Gabapentin (Gabapentin) 100 Mg Capsule 100 Mg PO TID Vitals/I & O Vital Sign - Last 24 Hours 11/27/20 11/27/20 11/27/20 11/27/20 11:00 14:51 15:00 20:00 Temp 97.5 97.5 97.5 97.5 Pulse 106 106 102 Resp 18 18 B/P (MAP) 140/77 (98) 140/77 141/86 (104) Pulse Ox 90 94 O2 Delivery Nasal Cannula Nasal Cannula Nasal Cannula O2 Flow Rate 2.0 2.0 3.0 11/27/20 11/27/20 11/28/20 11/28/20 20:02 23:02 03:22 08:30 Temp 98.0 98.4 97.5 98.0 98.4 97.5 Pulse 104 95 94 94 Resp 20 20 20 B/P (MAP) 179/90 (119) 154/87 (109) 138/88 (105) 138/88 Pulse Ox 94 96 96 O2 Delivery Nasal Cannula Nasal Cannula Nasal Cannula O2 Flow Rate 2.0 2.0 2.0 Intake and Output 11/27/20 11/27/20 11/28/20 15:00 23:00 07:00 Intake Total 1275 ml 300 ml Balance 1275 ml 300 ml Justicifation of Admission Dx: Justifications for Admission: Justification of Admission Dx: Yes WAYNE TROY MD Nov 28, 2020 08:42
[2020-11-28 09:45] LABS: CALCIUM 7.6 mg/dL (8.5-10.1); CREATININE 2.7 mg/dL (0.6-1.0); GFR 21.8
[2020-11-28 11:00] VITALS: BP 151/107
--- NOTE | 2020-11-28 11:49 | PDOC ---
Renal-Progress Notes Subjective Notes Notes NO NEW COMPLAINTS History of Present Illness Hx of present illness STABLE Vitals Vitals Vital Signs Date Time Temp Pulse Resp B/P (MAP) Pulse Ox O2 Delivery O2 Flow Rate FiO2 11/28/20 11:00 97.5 102 18 151/107 (122) 94 Nasal Cannula 2.0 97.5 Weight Weight [ ] I.O. Intake and Output Intake and Output 11/28/20 07:00 Intake Total 1575 ml Balance 1575 ml Intake Oral 575 ml IV Total 1000 ml # Voids 8 Labs Labs Laboratory Tests Test 11/27/20 20:45 11/28/20 07:59 11/28/20 08:30 Glucose (Fingerstick) 100 mg/dL (70-99) 85 mg/dL (70-99) Sodium Level 142 mmol/L (136-145) Potassium Level 4.0 mmol/L (3.5-5.1) Chloride Level 104 mmol/L (98-107) Carbon Dioxide Level 33 mmol/L (21-32) Anion Gap 5 (6-14) Blood Urea Nitrogen 19 mg/dL (7-20) Creatinine 2.7 mg/dL (0.6-1.0) Estimated GFR (Cockcroft-Gault) 21.8 Glucose Level 79 mg/dL (70-99) Calcium Level 7.6 mg/dL (8.5-10.1) Micro Micro Microbiology 11/26/20 Blood Culture - Preliminary, Resulted NO GROWTH AFTER 1 DAY Review of Systems Constitutional: yes: other (CONFUSED) Physical Exam General Appearance: no apparent distress Skin: warm Respiratory: decreased breath sounds Heart: S1S2 Abdomen: soft, bowel sounds present Neurology: alert, follow commands, confused, other (drowsy) Musculoskeletal: Osteoarthritis, Other Assessment Assessment IMP GIA-OLW-SFLP TO 2.7 FROM 3.2 HYPERNATREMIA CKD STAGE 2 TO 3A MET ENCEPHALOPATHY RECENT COVID 19 PNA WITH ACUTE RESP FAILURE CM WITH EF OF 45% AND AICD P AFIB DM II HTN PLAN AVOID NEPHROTOXINS HYDRATION-HYPOTONIC SALINE SUPPLEMENTAL O2 WILL FOLLOW SUMA SCHMID MD Nov 28, 2020 11:49
--- NOTE | 2020-11-28 12:03 | PDOC ---
CARDIO Progress Notes Date and Time Date of Service 11/28/20 Time of Evaluation 1200 Subjective Subjective: No Chest Pain, No Palpitations, Other (SOA better) Vitals Vitals Vital Signs Date Time Temp Pulse Resp B/P (MAP) Pulse Ox O2 Delivery O2 Flow Rate FiO2 11/28/20 11:00 97.5 102 18 151/107 (122) 94 Nasal Cannula 2.0 97.5 Weight Weight [ ] Input and Output Intake and Output Intake and Output 11/28/20 07:00 Intake Total 1575 ml Balance 1575 ml Intake Oral 575 ml IV Total 1000 ml # Voids 8 Laboratory Labs Laboratory Tests Test 11/27/20 20:45 11/28/20 07:59 11/28/20 08:30 Glucose (Fingerstick) 100 mg/dL (70-99) 85 mg/dL (70-99) Sodium Level 142 mmol/L (136-145) Potassium Level 4.0 mmol/L (3.5-5.1) Chloride Level 104 mmol/L (98-107) Carbon Dioxide Level 33 mmol/L (21-32) Anion Gap 5 (6-14) Blood Urea Nitrogen 19 mg/dL (7-20) Creatinine 2.7 mg/dL (0.6-1.0) Estimated GFR (Cockcroft-Gault) 21.8 Glucose Level 79 mg/dL (70-99) Calcium Level 7.6 mg/dL (8.5-10.1) Microbiology Micro Microbiology 11/26/20 Blood Culture - Preliminary, Resulted NO GROWTH AFTER 1 DAY Review of Systems Constitutional: yes: other (CONFUSED) Physical Exam HEENT: Neck Supple W Full Motion Chest: Symmetric LUNGS: Other (diminished bases) Heart: RRR (v-pace with underlying SR) Abdomen: Soft N/T, Other (obese) Extremities: Other (1+ bilateral LE edema ) Neurology: alert, follow commands, confused Assessment Assessment 1. Metabolic encephalopathy with underlying anxiety, depression, schizoaffective disorder. 2. Acute respiratory failure with recent COVID PNA requiting intubation. SOA better. Covid-19 again + on 11/21/2020 3. Acute on chronic systolic CHF: appears compensated 4. Mild troponin elevated; peak 0.09. Most probable type II, demand ischemia. 5. Cardiomyopathy s/p AICD ([place]): prior EF at 45%. 6. PAFIB; presently v-paced with underlying sinus rhythm 7. Hypertension; controlled 8. Hyperlipidemia; statin. 9. Diabetes, II 10. JACKIE on CKD: nephrology following. CR improved at 2.7 11. Hypothyroidism; on replacement Recommendations Continue Metoprolol for rate control, HF optimization No ACEi/ARB with JACKIE Lasix PRN ASA, statin. Secondary prevention Limited echo to assess LV systolic function Plan outpatient ischemic evaluation Follow up with Dr. Poole as scheduled. Supportive care Justicifation of Admission Dx: Justifications for Admission: Justification of Admission Dx: Yes MATY ROJAS APRN Nov 28, 2020 12:03
--- NOTE | 2020-11-28 13:25 | CONS ---
DATE OF CONSULTATION: 11/28/2020 REFERRING PHYSICIAN: Dr. Carrington. REASON FOR CONSULTATION: COVID-19 positive. HISTORY OF PRESENT ILLNESS: A 60-year-old female coming in from nursing facility to [facility] on 11/25/2020 for worsening mental status and hypoxia. The patient was recently discharged to the facility after being diagnosed with COVID-19 infection and acute respiratory failure, subsequent to that on 10/30. The patient was discharged in the last week of October. Baseline is on 2.5 liters O2 by nasal cannula. The patient is unable to give history. History obtained from medical chart and staff. The patient has history of schizoaffective disorder, depression, anxiety, CHF with AICD in place, CKD, hyperlipidemia, diabetes, atrial fibrillation, hypertension, who returned to the hospital after a fall recently. The patient had admission to the hospital in the first week of November. Repeat COVID-19 was positive on 11/21/2020. She underwent CT head due to fall, which was negative for any acute abnormality. The patient remains afebrile on 3 liters O2 by nasal cannula, currently is on about 2 liters by nasal cannula. White count on admission was 9.3, creatinine was 3.2, previously was 3.5. Mild troponin elevation, albumin of 2.0. UA negative except for proteinuria. COVID-19 is detected positive again. ID consultation has been requested for the same. PAST MEDICAL HISTORY: Schizoaffective disorder, depression, anxiety, peripheral neuropathy, congestive heart failure, AICD in place, hyperlipidemia, diabetes, atrial fibrillation, COPD, asthma, and obesity. ALLERGIES: LACTULOSE, LISINOPRIL. SOCIAL HISTORY: shelter resident. No smoking, no alcohol. REVIEW OF SYSTEMS: Limited, the patient is unable to give any details. Discussed with RN. CURRENT MEDICATIONS: Antibiotics none reviewed. PHYSICAL EXAMINATION: VITAL SIGNS: Temperature 97.5, pulse 102, respiratory rate 18, blood pressure 151/107, oxygen saturation 94% on 2 liters. GENERAL: Sedated, but arousable female, on 2 liters O2 by nasal cannula, in no acute distress. HEENT: Normocephalic, atraumatic, anicteric. No thrush. NECK: Supple, no JVD. LUNGS: Clear bilaterally. Decreased breath sound at the bases. HEART: S1, S2, tachycardia. ABDOMEN: Soft, bowel sounds present, nontender, nondistended. EXTREMITIES: No edema, no cyanosis. GENITOURINARY: No [place]. DERMATOLOGIC: Warm, dry. No generalized rash. NEUROLOGIC: Unable to poker in as the patient is drowsy, arousable. PSYCHIATRIC: Unable to assess. LABORATORY DATA: WBC 8.8, hemoglobin 7.9, hematocrit 24.6, platelets 70. IMPRESSION: 1. History of COVID-19 with acute respiratory failure in 10/2020. Repeat test positive here. 2. Encephalopathy, likely metabolic with underlying schizoaffective disorder, anxiety and depression. 3. Acute on chronic congestive heart failure, compensated. 4. Mild troponin elevation. 5. Cardiomyopathy, status post automatic implantable cardioverter-defibrillator. 6. Paroxysmal atrial fibrillation. 7. Diabetes mellitus. 8. Acute kidney injury on chronic kidney disease. 9. Hypothyroidism. 10. Hypertension/hyperlipidemia. 11. Thrombocytopenia. RECOMMENDATIONS: 1. COVID-19 is known to remains positive in some patients for weeks after initial infection. 2. Maintain aspiration precaution. 3. Monitor off antibiotics. 4. Continue supportive care. 5. History of fall. CT head negative 11/21/2020. 6. Discussed with nursing staff. Thank you for allowing me to participate in this patient's care. If you have any questions, do not hesitate to contact me. CARRIE AMOS MD DR: AMAURY/natalia JOB#: [id number] / [id number] KIARA
[2020-11-28 15:00] VITALS: BP 165/95
--- NOTE | 2020-11-28 16:38 | NUR ---
SW following for discharge planning. Spoke with RN and reviewed chart. Discharge plan remains back to [facility] when stable.
[2020-11-28 19:35] VITALS: BP 146/79
[2020-11-28] MEDS: FAMOTIDINE 20 MG TABLET. PO SCH (21:37)
[2020-11-28] MEDS: ATORVASTATIN CALCIUM 10 MG TABLET. PO SCH (21:37)
[2020-11-28 23:12] VITALS: BP 140/81
[2020-11-29 03:44] VITALS: BP 131/83
[2020-11-29 04:13] LABS: BASO # 0.1 x10^3/uL (0.0-0.2); BASO % 1 % (0-3); EOS # 0.3 x10^3/uL (0.0-0.7); EOS % 3 % (0-3); HEMATOCRIT 25.7 % (36.0-47.0); LYMPH # 1.8 x10^3/uL (1.0-4.8); LYMPH % 18 % (24-48); MEAN CORPUSCULAR HEMOGLOBIN 30 pg (25-35); MEAN CORPUSCULAR HGB CONC 31 g/dL (31-37); MEAN CORPUSCULAR VOLUME 97 fL (79-100); MONO # 1.1 x10^3/uL (0.0-1.1); MONO % 12 % (0-9); NEUT # 6.6 x10^3/uL (1.8-7.7); NEUT % 67 % (31-73); PLATELET COUNT 70 x10^3/uL (140-400); RED BLOOD COUNT 2.66 x10^6/uL (3.50-5.40); RED CELL DISTRIBUTION WIDTH 18.1 % (11.5-14.5); WHITE BLOOD COUNT 9.9 x10^3/uL (4.0-11.0)
[2020-11-29 05:14] LABS: CALCIUM 8.1 mg/dL (8.5-10.1); CREATININE 2.8 mg/dL (0.6-1.0); GFR 20.9; POTASSIUM 4.1 mmol/L (3.5-5.1)
[2020-11-29] MEDS: LEVOTHYROXINE 112 MCG TABLET PO SCH (06:04)
[2020-11-29 07:00] VITALS: BP 142/83
[2020-11-29] MEDS: IPRATROPIUM/ALBUTEROL 20/100mcg/INH INHALER. INH SCH ×4 (08:36→20:00)
[2020-11-29] MEDS: POLYETHYLENE GLYCOL 3350 17 GM PACKET. PO SCH (08:36)
[2020-11-29] MEDS: MULTIVITAMIN with MINERAL TABLET. PO SCH (08:40)
[2020-11-29] MEDS: ASCORBIC ACID 500 MG TABLET PO SCH (08:40)
[2020-11-29] MEDS: GABAPENTIN 100 MG CAPSULE. PO SCH ×3 (08:40→20:07)
[2020-11-29] MEDS: rOPINIRole 1 MG TABLET. PO SCH ×2 (08:40→20:07)
[2020-11-29] MEDS: buPROPion XL 150 MG TAB.ER.24H. PO SCH (08:40)
[2020-11-29] MEDS: CALCIUM CARBONATE 500 MG TABLET PO SCH (08:40)
[2020-11-29] MEDS: METOPROLOL SUCC 24HR ER 100 MG TAB.ER.24H. PO SCH (08:40)
[2020-11-29] MEDS: CHLORHEXIDINE 0.12% 15 ML MOUTHWASH. SWSP SCH ×2 (08:42→20:07)
--- NOTE | 2020-11-29 08:50 | PDOC ---
PROGRESS NOTES Date of Service: DATE: 11/29/20 TIME: 08:50 Chief Complaint Chief Complaint VTE Prophylaxis Ordered VTE Prophylaxis Devices: Yes VTE Pharmacological Prophylaxi: Yes Assessment/Plan Assessment/Plan IMPRESSION ACUTE ALTERED MENTAL STATUS acute hypoxic respiratory failure acute Metabolic encephalopathy with underlying anxiety, depression, schizoaffective disorder. PNEUMONIA Increased patchy mid and bibasilar opacities, represent atelectasis or developing consolidations. possible aspiration pneumonia Bilateral pleural effusions, left greater than right, unchanged. RECENT Fall - ct head negative, no other pain complaints, no fracture CHF s/p AICD not tolerant of BB, allergic to IZZY/ARB. 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 Encephalopathy - chronic due to schizophrenia Schizophrenia - Hypertension. Obesity COVID positive - 10/30/2020, still positive, RECOVERING acute renal injury- Suspect ATN- no improvement , UA No Micr hematuria - recent Renal Bx ordered , per nursing report IR unable to at this time cr 2.8 Supportive care , strict I/O ,avoid nephrotoxins Anemia - Hgb dropping, postmenopausal bleeding , D and C 11/20/2019, stable now Proteinuria- Nephrotic, No Micr hematuria , No WBC's or cast CKD stage 2/3 Cardiomyopathy with EF 45% s/p AICD Small to moderate left pleural effusion, unchanged. Small right pleural effusion, unchanged. Increased patchy left mid and bibasilar opacities PLAN ADMIT Consult pulmonary consult nephrology IV FLUID SUPPORT // HYDRATION-HYPOTONIC SALINE pt/ot/st Secondary prevention Echo if COVID negative Ongoing lung optimization Plan outpatient ischemic evaluation D/W RN Justifications for Admission Justifications for Admission Other Justification Fall, new right pleural effusion History of Present Illness History of Present Illness Identification/Chief Complaint Chief Complaint INC CONFUSION, ALTERED MENTATION// SOA History of Present Illness History of Present Illness SEEN IN ER WITH WORSENING HYPOXIA 60 year old female coming in from nursing facility for worsening mental status and hypoxia. Per staff report she was satting in the 80s on 2.5 L nasal cannula. Patient was hospitalized at this facility for Covid 19 and intubated. Her test was + October 30. She was also seen again and discharged yesterday after a 3-day stay. baseline on 2.5 L nasal cannula Ms Mulligan is a 60 yo F w/ PMHx schizoaffective disorder, CHF with AICD in place, HLD, afib, depression with anxiety, HTN who returns to the hospital after a fall RECENTLY, D/C ON 11-23, Patient was just discharged the day prior after prolonged stay secondary to COVID-19 pneumonia (tested positive on 10/30/2020 - still positive on 11/21/20), acute respiratory failure, acute renal insufficiency, and postmenopausal bleeding s/p D&C. At baseline she feels on 3 to 4 L nasal cannula, stays in [facility] SNF. Patient reportedly HAD ALTERED MENTAL STATUS WITH WORSENING HYPOXIA and was sent to the ER for evaluation. Past Medical History Past Medical History Past Medical History Past Medical History Past Medical History: A-Fib, Anxiety, Asthma, CHF, Constipation, Depression, Diabetes-Type II, GERD, High Cholesterol, Hypothyroid, Schizophrenia, Other Additional Past Medical Histor: SCHIZOAFFECTIVE, RESTLESS LEG Past Surgical History: Pacemaker Additional Past Surgical Histo: Pacemaker/defib/BATTERY REPLACED Smoking Status: Former Smoker Alcohol Use: None Drug Use: None FHX OBESITY Cardiovascular: CHF, HTN, Hyperlipidemia, Other Pulmonary: Asthma CENTRAL NERVOUS SYSTEM: Other GI: GERD, Other Heme/Onc: No pertinent hx Hepatobiliary: No pertinent hx Psych: Anxiety, Depression, Schizophrenia Musculoskeletal: Osteoarthritis, Other Rheumatologic: No pertinent hx Infectious disease: No pertinent hx Renal/: Chronic renal insuff, UTI Endocrine: Diabetes, Hypothyroidism Past Surgical History Past Surgical History: Pacemaker Family History Family History: Hypertension, Family History Unknown Social History Smoke: No ALCOHOL: none Drugs: None Current Problem List Problem List Problems Medical Problems: (1) COVID-19 Status: Acute (2) HCAP (healthcare-associated pneumonia) Vitals Vitals Vital Signs Date Time Temp Pulse Resp B/P (MAP) Pulse Ox O2 Delivery O2 Flow Rate FiO2 11/29/20 08:40 96 142/83 11/29/20 07:00 98.1 23 99 Nasal Cannula 4.0 98.1 Physical Exam Physical Exam Eyes: PERRLA, conjunctiva normal, no discharge. [] Neck: No rigidity, supple, no stridor. [] Cardiovascular: Regular rate and rhythm, brisk cap refill [] Lungs & Thorax: Non labored symmetric respirations, no tachypnea or respiratory distress [] Abdomen: Soft, nondistended no tenderness palpation, no guarding. Skin: Warm, dry, no erythema, no rash. [] Back: No tenderness, no CVA tenderness. [] Extremities: No deformities, range of motion grossly intact, no lower extremity edema [] Neurologic: Alert and oriented X 2, no focal deficits noted. [] Psychologic: Affect normal, judgment normal, mood normal. [] General: No acute distress Breasts: Not examined Rectal Exam: not examined PELVIC: Examination not indicated Extremities: No cyanosis Neuro: Cranial nerves 3-12 NL General: Cooperative, No acute distress Heart: Regular rate Lungs: Clear, Crackles Abdomen: Normal bowel sounds, Soft, No tenderness Extremities: No cyanosis Skin: No rashes Labs LABS XR CHEST 1V History: Reason: hypoxic / Spl. Instructions: / History: Comparison: November 21, 2020 Findings: Small to moderate left pleural effusion, unchanged. Small right pleural effusion, unchanged. Increased patchy left mid and bibasilar opacities. Unchanged heart size. Stable left-sided pacemaker. No pneumothorax. Impression: 1. Increased patchy mid and bibasilar opacities, represent atelectasis or developing consolidations. 2. Bilateral pleural effusions, left greater than right, unchanged. Electronically signed by: Wilfredo Nagel DO (11/25/2020 9:08 PM) [facility] DICTATED and SIGNED BY: WILFREDO NAGEL DO DATE: 11/25/20 [id number] Laboratory Tests Test 11/28/20 21:10 11/29/20 04:00 11/29/20 08:08 Glucose (Fingerstick) 141 mg/dL (70-99) 143 mg/dL (70-99) White Blood Count 9.9 x10^3/uL (4.0-11.0) Red Blood Count 2.66 x10^6/uL (3.50-5.40) Hemoglobin 8.0 g/dL (12.0-15.5) Hematocrit 25.7 % (36.0-47.0) Mean Corpuscular Volume 97 fL (79-100) Mean Corpuscular Hemoglobin 30 pg (25-35) Mean Corpuscular Hemoglobin Concent 31 g/dL (31-37) Red Cell Distribution Width 18.1 % (11.5-14.5) Platelet Count 70 x10^3/uL (140-400) Neutrophils (%) (Auto) 67 % (31-73) Lymphocytes (%) (Auto) 18 % (24-48) Monocytes (%) (Auto) 12 % (0-9) Eosinophils (%) (Auto) 3 % (0-3) Basophils (%) (Auto) 1 % (0-3) Neutrophils # (Auto) 6.6 x10^3/uL (1.8-7.7) Lymphocytes # (Auto) 1.8 x10^3/uL (1.0-4.8) Monocytes # (Auto) 1.1 x10^3/uL (0.0-1.1) Eosinophils # (Auto) 0.3 x10^3/uL (0.0-0.7) Basophils # (Auto) 0.1 x10^3/uL (0.0-0.2) Sodium Level 140 mmol/L (136-145) Potassium Level 4.1 mmol/L (3.5-5.1) Chloride Level 105 mmol/L (98-107) Carbon Dioxide Level 35 mmol/L (21-32) Anion Gap 0 (6-14) Blood Urea Nitrogen 21 mg/dL (7-20) Creatinine 2.8 mg/dL (0.6-1.0) Estimated GFR (Cockcroft-Gault) 20.9 Glucose Level 117 mg/dL (70-99) Calcium Level 8.1 mg/dL (8.5-10.1) Assessment and Plan Assessmemt and Plan Problems Medical Problems: (1) COVID-19 Status: Acute (2) HCAP (healthcare-associated pneumonia) Status: Acute Comment Review of Relevant I have reviewed the following items lucas (where applicable) has been applied. Labs Laboratory Tests Test 11/27/20 20:45 11/28/20 07:59 11/28/20 08:30 11/28/20 21:10 Glucose (Fingerstick) 100 mg/dL (70-99) 85 mg/dL (70-99) 141 mg/dL (70-99) Sodium Level 142 mmol/L (136-145) Potassium Level 4.0 mmol/L (3.5-5.1) Chloride Level 104 mmol/L (98-107) Carbon Dioxide Level 33 mmol/L (21-32) Anion Gap 5 (6-14) Blood Urea Nitrogen 19 mg/dL (7-20) Creatinine 2.7 mg/dL (0.6-1.0) Estimated GFR (Cockcroft-Gault) 21.8 Glucose Level 79 mg/dL (70-99) Calcium Level 7.6 mg/dL (8.5-10.1) Test 11/29/20 04:00 11/29/20 08:08 White Blood Count 9.9 x10^3/uL (4.0-11.0) Red Blood Count 2.66 x10^6/uL (3.50-5.40) Hemoglobin 8.0 g/dL (12.0-15.5) Hematocrit 25.7 % (36.0-47.0) Mean Corpuscular Volume 97 fL (79-100) Mean Corpuscular Hemoglobin 30 pg (25-35) Mean Corpuscular Hemoglobin Concent 31 g/dL (31-37) Red Cell Distribution Width 18.1 % (11.5-14.5) Platelet Count 70 x10^3/uL (140-400) Neutrophils (%) (Auto) 67 % (31-73) Lymphocytes (%) (Auto) 18 % (24-48) Monocytes (%) (Auto) 12 % (0-9) Eosinophils (%) (Auto) 3 % (0-3) Basophils (%) (Auto) 1 % (0-3) Neutrophils # (Auto) 6.6 x10^3/uL (1.8-7.7) Lymphocytes # (Auto) 1.8 x10^3/uL (1.0-4.8) Monocytes # (Auto) 1.1 x10^3/uL (0.0-1.1) Eosinophils # (Auto) 0.3 x10^3/uL (0.0-0.7) Basophils # (Auto) 0.1 x10^3/uL (0.0-0.2) Sodium Level 140 mmol/L (136-145) Potassium Level 4.1 mmol/L (3.5-5.1) Chloride Level 105 mmol/L (98-107) Carbon Dioxide Level 35 mmol/L (21-32) Anion Gap 0 (6-14) Blood Urea Nitrogen 21 mg/dL (7-20) Creatinine 2.8 mg/dL (0.6-1.0) Estimated GFR (Cockcroft-Gault) 20.9 Glucose Level 117 mg/dL (70-99) Calcium Level 8.1 mg/dL (8.5-10.1) Glucose (Fingerstick) 143 mg/dL (70-99) Laboratory Tests Test 11/28/20 21:10 11/29/20 04:00 11/29/20 08:08 Glucose (Fingerstick) 141 mg/dL (70-99) 143 mg/dL (70-99) White Blood Count 9.9 x10^3/uL (4.0-11.0) Red Blood Count 2.66 x10^6/uL (3.50-5.40) Hemoglobin 8.0 g/dL (12.0-15.5) Hematocrit 25.7 % (36.0-47.0) Mean Corpuscular Volume 97 fL (79-100) Mean Corpuscular Hemoglobin 30 pg (25-35) Mean Corpuscular Hemoglobin Concent 31 g/dL (31-37) Red Cell Distribution Width 18.1 % (11.5-14.5) Platelet Count 70 x10^3/uL (140-400) Neutrophils (%) (Auto) 67 % (31-73) Lymphocytes (%) (Auto) 18 % (24-48) Monocytes (%) (Auto) 12 % (0-9) Eosinophils (%) (Auto) 3 % (0-3) Basophils (%) (Auto) 1 % (0-3) Neutrophils # (Auto) 6.6 x10^3/uL (1.8-7.7) Lymphocytes # (Auto) 1.8 x10^3/uL (1.0-4.8) Monocytes # (Auto) 1.1 x10^3/uL (0.0-1.1) Eosinophils # (Auto) 0.3 x10^3/uL (0.0-0.7) Basophils # (Auto) 0.1 x10^3/uL (0.0-0.2) Sodium Level 140 mmol/L (136-145) Potassium Level 4.1 mmol/L (3.5-5.1) Chloride Level 105 mmol/L (98-107) Carbon Dioxide Level 35 mmol/L (21-32) Anion Gap 0 (6-14) Blood Urea Nitrogen 21 mg/dL (7-20) Creatinine 2.8 mg/dL (0.6-1.0) Estimated GFR (Cockcroft-Gault) 20.9 Glucose Level 117 mg/dL (70-99) Calcium Level 8.1 mg/dL (8.5-10.1) Microbiology 11/26/20 Blood Culture - Preliminary, Resulted NO GROWTH AFTER 2 DAYS Medications Current Medications Sodium Chloride 1,000 ml @ 1,000 mls/hr 1X ONCE IV Last administered on 11/25/20at 20:52; Start 11/25/20 at 20:45; Stop 11/25/20 at 21:44; Status DC Dexamethasone Sodium Phosphate (Decadron) 10 mg 1X ONCE IV Last administered on 11/25/20at 23:54; Start 11/25/20 at 23:15; Stop 11/25/20 at 23:16; Status DC Ceftriaxone Sodium (Rocephin) 1 gm 1X ONCE IVP ; Start 11/25/20 at 23:15; Stop 11/25/20 at 23:25; Status DC Azithromycin 250 ml @ 250 mls/hr 1X ONCE IV ; Start 11/25/20 at 23:15; Stop 11/25/20 at 23:25; Status DC Ondansetron HCl (Zofran) 4 mg PRN Q8HRS PRN IV NAUSEA/VOMITING; Start 11/25/20 at 23:15; Stop 11/26/20 at 23:14; Status DC Acetaminophen (Tylenol) 650 mg PRN Q4HRS PRN PO FEVER > 100.3'F; Start 11/25/20 at 23:15; Stop 11/26/20 at 23:14; Status DC Sodium Chloride 1,000 ml @ 75 mls/hr 1X ONCE IV Last administered on 11/25/20at 23:55; Start 11/25/20 at 23:15; Stop 11/26/20 at 12:34; Status DC Piperacillin Sod/ Tazobactam Sod 2.25 gm/Sodium Chloride 50 ml @ 100 mls/hr 1X ONCE IV Last administered on 11/25/20at 23:30; Start 11/25/20 at 23:30; Stop 11/25/20 at 23:59; Status DC Vancomycin HCl 1.25 gm/Sodium Chloride 250 ml @ 250 mls/hr 1X ONCE IV Last administered on 11/26/20at 00:38; Start 11/25/20 at 23:30; Stop 11/26/20 at 00:29; Status DC Sodium Chloride (Normal Saline Flush) 3 ml QSHIFT PRN IV AFTER MEDS AND BLOOD DRAWS; Start 11/26/20 at 10:30 Sodium Chloride 1,000 ml @ 75 mls/hr [id number] IV Last administered on 11/27/20at 13:49; Start 11/26/20 at 10:30; Stop 11/27/20 at 18:02; Status DC Ondansetron HCl (Zofran) 4 mg PRN Q4HRS PRN IV NAUSEA/VOMITING; Start 11/26/20 at 10:30 Acetaminophen (Tylenol) 650 mg PRN Q4HRS PRN PO TEMP OVER 100.4F OR MILD PAIN; Start 11/26/20 at 10:30 Acetaminophen (Tylenol Supp) 650 mg PRN Q4HRS PRN GA TEMP OVER 100.4F OR MILD PAIN; Start 11/26/20 at 10:30 Sodium Monofluorophosphate (Fleet Adult) 133 ml PRN DAILY PRN GA CONSTIPATION; Start 11/26/20 at 10:30 Docusate Sodium (Colace) 100 mg PRN BID PRN PO HARD STOOLS; Start 11/26/20 at 10:30 Albuterol Sulfate (Ventolin Neb Soln) 2.5 mg PRN Q4HRS PRN NEB SHORTNESS OF BREATH; Start 11/26/20 at 10:30 Guaifenesin (Robitussin) 200 mg PRN Q4HRS PRN PO COUGH; Start 11/26/20 at 10:30 Enoxaparin Sodium (Lovenox 30mg Syringe) 30 mg Q24H SQ Last administered on 11/28/20at 08:29; Start 11/26/20 at 11:00 Acetaminophen (Tylenol) 650 mg Q6HRS PO ; Start 11/26/20 at 18:00; Status UNV Atorvastatin Calcium (Lipitor) 10 mg HS PO Last administered on 11/28/20 21:37; Start 11/26/20 at 21:00 Bupropion HCl (Wellbutrin Xl) 150 mg DAILY PO Last administered on 11/29/20at 08:40; Start 11/27/20 at 09:00 Calcium Carbonate/ Glycine (Oscal) 500 mg DAILY PO Last administered on 11/29/20at 08:40; Start 11/27/20 at 09:00 Chlorhexidine Gluconate (Peridex) 15 ml BID SWSP Last administered on 11/29/20 08:42; Start 11/26/20 at 21:00 Famotidine (Pepcid) 20 mg HS PO Last administered on 11/28/20 21:37; Start 11/26/20 at 21:00 Gabapentin (Neurontin) 100 mg TID PO Last administered on 11/29/20at 08:40; Start 11/26/20 at 14:00 Albuterol/ Ipratropium (Duoneb) 3 ml Q4HRS NEB ; Start 11/26/20 at 16:00; Stop 11/26/20 at 16:29; Status DC Levothyroxine Sodium (Synthroid) 112 mcg DAILY06 PO Last administered on 11/29/20at 06:04; Start 11/27/20 at 06:00 Nystatin (Nystop) 1 scott PRN BID PRN TP RASH Last administered on 11/29/20at 08:36; Start 11/26/20 at 12:15 Polyethylene Glycol (miraLAX PACKET) 17 gm DAILY PO Last administered on 11/29/20at 08:36; Start 11/27/20 at 09:00 Ropinirole HCl (Requip) 1 mg BID PO Last administered on 11/29/20at 08:40; Start 11/26/20 at 21:00 Simethicone (Gas-X) 160 mg PRN Q2HRS PRN PO GAS / BLOATING; Start 11/26/20 at 12:15 Furosemide (Lasix) 40 mg 1X ONCE IVP Last administered on 11/26/20at 16:19; Start 11/26/20 at 16:00; Stop 11/26/20 at 16:01; Status DC Albuterol/ Ipratropium (Combivent Respimat 20-100 Mcg) 1 puff RTQID INH Last administered on 11/29/20at 08:36; Start 11/26/20 at 17:00 Multivitamins (Thera M Plus) 1 tab DAILY PO Last administered on 11/29/20at 08: 40; Start 11/27/20 at 11:00 Ascorbic Acid (Vitamin C) 500 mg DAILY PO Last administered on 11/29/20at 08:40; Start 11/27/20 at 11:00 Metoprolol Succinate (Toprol Xl) 100 mg DAILY PO Last administered on 11/29/20at 08:40; Start 11/28/20 at 09:00 Metoprolol Succinate (Toprol Xl) 100 mg 1X ONCE PO Last administered on 11/27/20at 14:51; Start 11/27/20 at 15:00; Stop 11/27/20 at 15:01; Status DC Sodium Chloride 1,000 ml @ 75 mls/hr [id number] IV Last administered on 11/28/20at 08:28; Start 11/27/20 at 18:15 Active Scripts Active Dicyclomine Hcl 20 Mg Tablet 1 Tab PO TID 10 Days Reported Tramadol Hcl 50 Mg Tablet 50 Mg PO Q6HRS PRN Mylanta Maximum Strength Liq (Mag Hydrox/Aluminum Hyd/Simeth) 355 Ml Oral.susp 30 Ml PO PRN PRN Ativan (Lorazepam) 0.5 Mg Tablet 0.5 Mg PO Q8HRS PRN Ibu (Ibuprofen) 400 Mg Tablet 1 Tab PO Q6HRS PRN 5 Days NEEDED FOR PAIN Wellbutrin Xl (Bupropion Hcl) 150 Mg Tab.er.24h 150 Mg PO DAILY Artificial Tears Drops (Peg 400/Hypromellose/Glycerin) 15 Ml Drops 1 Drop OS QID 30 Days Folic Acid 0.4 Mg Tablet 0.4 Mg PO DAILY Duoneb 0.5-3(2.5) Mg/3 Ml (Albuterol/Ipratropium) 3 Ml Ampul.neb 3 Ml NEB Q4HRS Clonidine Hcl 0.2 Mg Tablet 0.2 Mg PO TID Multiple Vitamins (Multivitamin) 1 Each Tablet 1 Tab PO DAILY 30 Days Miralax (Polyethylene Glycol 3350) 17 Gm Powd.pack 1 Packet PO DAILY 2 Days dissolve in water Famotidine 20 Mg Tablet 20 Mg PO HS Zofran (Ondansetron Hcl) 4 Mg Tablet 4 Mg PO Q8HRS PRN Tears Again (Polyvinyl Alcohol) 15 Ml Drops 2 Drop EACHEYE Q4HRS 30 Days Polyvinyl Alcohol 15 Ml Drops 2 Drop EACHEYE Q4HRS 30 Days Ropinirole Hcl 1 Mg Tablet 1 Mg PO BID Magnesium Oxide 400 Mg Tablet 400 Mg PO DAILY Loratadine 10 Mg Tablet 10 Mg PO DAILY Humalog (Insulin Lispro) 100 Unit/1 Ml Vial 100 Unit SQ BIDWMEALS 70 - 150 0 units 151 - 200 0 units 201 - 250 2 units 251 - 300 3 units 301 - 349 4 units if FSBS is under 70 or 350 and over call MD [guaifenesin Syrup] 10 Ml PO Q4HRS PRN Coreg (Carvedilol) 25 Mg Tablet 50 Mg PO BIDWMEALS Peridex (Chlorhexidine Gluconate) 15 Ml Mouthwash 15 Ml PO BID 30 Days Swish in mouth for 30 seconds then spit out Calcium Carbonate 500 Mg Tablet 500 Mg PO Q4HRS Atorvastatin Calcium 10 Mg Tablet 10 Mg PO HS Acetaminophen 325 Mg Tablet 650 Mg PO Q6HRS Metformin Hcl 500 Mg Tablet 250 Mg PO BIDWMEALS Imodium A-D (Loperamide HCl) 2 Mg Capsule 2 Mg PO DAILY PRN Risperidone 0.5 Mg Tablet 2 Mg PO DAILY Risperidone 1 Mg Tablet 1 Tab PO QHS Levothyroxine Sodium 112 Mcg Tablet 1 Tab PO DAILY Advair 500-50 Diskus (Fluticasone/Salmeterol) 1 Each Disk.w.dev 1 Puff IH BID Nystatin 15 Gm Powder 1 Scott TP PRN BID PRN Clonazepam (Clonazepam) 0.5 Mg Tablet 1 Tab PO BID Gas-X (Simethicone) 80 Mg Tab.chew 160 Mg PO Q2HR PRN Gabapentin (Gabapentin) 100 Mg Capsule 100 Mg PO TID Vitals/I & O Vital Sign - Last 24 Hours 11/28/20 11/28/20 11/28/20 11/28/20 11:00 15:00 19:35 20:00 Temp 97.5 97.5 98.1 97.5 97.5 98.1 Pulse 102 97 99 Resp 18 18 24 B/P (MAP) 151/107 (122) 165/95 (118) 146/79 (101) Pulse Ox 94 90 91 O2 Delivery Nasal Cannula Nasal Cannula Nasal Cannula Nasal Cannula O2 Flow Rate 2.0 2.0 4.0 4.0 11/28/20 11/29/20 11/29/20 11/29/20 23:12 03:44 07:00 08:40 Temp 99.0 98.4 98.1 99.0 98.4 98.1 Pulse 100 96 96 96 Resp 24 20 23 B/P (MAP) 140/81 (100) 131/83 (99) 142/83 (102) 142/83 Pulse Ox 97 99 99 O2 Delivery Nasal Cannula Nasal Cannula Nasal Cannula O2 Flow Rate 4.0 4.0 4.0 Intake and Output 11/28/20 11/28/20 11/29/20 15:00 23:00 07:00 Intake Total 100 ml 350 ml Balance 100 ml 350 ml Justicifation of Admission Dx: Justifications for Admission: Justification of Admission Dx: Yes WAYNE TROY MD Nov 29, 2020 08:50
[2020-11-29 11:00] VITALS: BP 165/96
[2020-11-29] MEDS: ENOXAPARIN 30 MG/0.3 ML SYRINGE. SQ SCH (11:13)
[2020-11-29] MEDS: IV 1/2 NORMAL SALINE 1,000 ML IV SCH (11:13)
[2020-11-29] MEDS ORDERED: BARIUM SULFATE 40% (APPLE) 148 GM PWD. PO ONE (12:45)
--- NOTE | 2020-11-29 13:19 | PDOC ---
Infectious Disease Note Subjective: Subjective Patient is more alert today Says feels better Remains on 4 L O2 by nasal cannula No acute issues per RN Vital Signs: Vital Signs Vital Signs Date Time Temp Pulse Resp B/P (MAP) Pulse Ox O2 Delivery O2 Flow Rate FiO2 11/29/20 11:00 96.6 98 47 165/96 (119) 100 Nasal Cannula 4.0 96.6 Physical Exam: PHYSICAL EXAM GENERAL: Alert awake on O2 by nasal cannula, in no acute distress. HEENT: Normocephalic, atraumatic, anicteric. No thrush. NECK: Supple, no JVD. LUNGS: Clear bilaterally. Decreased breath sound at the bases. HEART: S1, S2, tachycardia. ABDOMEN: Soft, bowel sounds present, nontender, nondistended. EXTREMITIES: No edema, no cyanosis. GENITOURINARY: No Hutchins. DERMATOLOGIC: Warm, dry. No generalized rash. NEUROLOGIC: Alert awake PSYCHIATRIC: Calm cooperative Medications: Inpatient Meds: Current Medications Medications (Trade) Dose Ordered Sig/Eber Start Time Stop Time Status Last Admin Dose Admin Acetaminophen (Tylenol Supp) 650 mg PRN Q4HRS PRN 11/26/20 10:30 Acetaminophen (Tylenol) 650 mg Q6HRS 11/26/20 18:00 UNV Albuterol Sulfate (Ventolin Neb Soln) 2.5 mg PRN Q4HRS PRN 11/26/20 10:30 Albuterol/ Ipratropium (Combivent Respimat 20-100 Mcg) 1 puff RTQID 11/26/20 17:00 11/29/20 11:13 1 PUFF Albuterol/ Ipratropium (Duoneb) 3 ml Q4HRS 11/26/20 16:00 11/26/20 16:29 DC Ascorbic Acid (Vitamin C) 500 mg DAILY 11/27/20 11:00 11/29/20 08:40 500 MG Atorvastatin Calcium (Lipitor) 10 mg HS 11/26/20 21:00 11/28/20 21:37 10 MG Azithromycin 250 ml @ 250 mls/hr 1X ONCE 11/25/20 23:15 11/25/20 23:25 DC Barium Sulfate (Varibar Thin Liquid Apple) 148 gm 1X ONCE 11/29/20 12:45 11/29/20 12:46 DC Bupropion HCl (Wellbutrin Xl) 150 mg DAILY 11/27/20 09:00 11/29/20 08:40 150 MG Calcium Carbonate/ Glycine (Oscal) 500 mg DAILY 11/27/20 09:00 11/29/20 08:40 500 MG Ceftriaxone Sodium (Rocephin) 1 gm 1X ONCE 11/25/20 23:15 11/25/20 23:25 DC Chlorhexidine Gluconate (Peridex) 15 ml BID 11/26/20 21:00 11/29/20 08:42 15 ML Dexamethasone Sodium Phosphate (Decadron) 10 mg 1X ONCE 11/25/20 23:15 11/25/20 23:16 DC 11/25/20 23:54 10 MG Docusate Sodium (Colace) 100 mg PRN BID PRN 11/26/20 10:30 Enoxaparin Sodium (Lovenox 30mg Syringe) 30 mg Q24H 11/26/20 11:00 11/29/20 11:13 30 MG Famotidine (Pepcid) 20 mg HS 11/26/20 21:00 11/28/20 21:37 20 MG Furosemide (Lasix) 40 mg 1X ONCE 11/26/20 16:00 11/26/20 16:01 DC 11/26/20 16:19 40 MG Gabapentin (Neurontin) 100 mg TID 11/26/20 14:00 11/29/20 08:40 100 MG Guaifenesin (Robitussin) 200 mg PRN Q4HRS PRN 11/26/20 10:30 Levothyroxine Sodium (Synthroid) 112 mcg DAILY06 11/27/20 06:00 11/29/20 06:04 112 MCG Metoprolol Succinate (Toprol Xl) 100 mg 1X ONCE 11/27/20 15:00 11/27/20 15:01 DC 11/27/20 14:51 100 MG Multivitamins (Thera M Plus) 1 tab DAILY 11/27/20 11:00 11/29/20 08:40 1 TAB Nystatin (Nystop) 1 luis PRN BID PRN 11/26/20 12:15 11/29/20 08:36 1 LUIS Ondansetron HCl (Zofran) 4 mg PRN Q4HRS PRN 11/26/20 10:30 Piperacillin Sod/ Tazobactam Sod 2.25 gm/Sodium Chloride 50 ml @ 100 mls/hr 1X ONCE 11/25/20 23:30 11/25/20 23:59 DC 11/25/20 23:30 100 MLS/HR Polyethylene Glycol (miraLAX PACKET) 17 gm DAILY 11/27/20 09:00 11/29/20 08:36 17 GM Ropinirole HCl (Requip) 1 mg BID 11/26/20 21:00 11/29/20 08:40 1 MG Simethicone (Gas-X) 160 mg PRN Q2HRS PRN 11/26/20 12:15 Sodium Monofluorophosphate (Fleet Adult) 133 ml PRN DAILY PRN 11/26/20 10:30 Sodium Chloride 1,000 ml @ 75 mls/hr [id number] 11/27/20 18:15 11/29/20 11:13 75 MLS/HR Sodium Chloride (Normal Saline Flush) 3 ml QSHIFT PRN 11/26/20 10:30 Vancomycin HCl 1.25 gm/Sodium Chloride 250 ml @ 250 mls/hr 1X ONCE 11/25/20 23:30 11/26/20 00:29 DC 11/26/20 00:38 250 MLS/HR Labs: Lab Laboratory Tests Test 11/28/20 21:10 11/29/20 04:00 11/29/20 08:08 11/29/20 11:32 Glucose (Fingerstick) 141 mg/dL (70-99) 143 mg/dL (70-99) 110 mg/dL (70-99) White Blood Count 9.9 x10^3/uL (4.0-11.0) Red Blood Count 2.66 x10^6/uL (3.50-5.40) Hemoglobin 8.0 g/dL (12.0-15.5) Hematocrit 25.7 % (36.0-47.0) Mean Corpuscular Volume 97 fL (79-100) Mean Corpuscular Hemoglobin 30 pg (25-35) Mean Corpuscular Hemoglobin Concent 31 g/dL (31-37) Red Cell Distribution Width 18.1 % (11.5-14.5) Platelet Count 70 x10^3/uL (140-400) Neutrophils (%) (Auto) 67 % (31-73) Lymphocytes (%) (Auto) 18 % (24-48) Monocytes (%) (Auto) 12 % (0-9) Eosinophils (%) (Auto) 3 % (0-3) Basophils (%) (Auto) 1 % (0-3) Neutrophils # (Auto) 6.6 x10^3/uL (1.8-7.7) Lymphocytes # (Auto) 1.8 x10^3/uL (1.0-4.8) Monocytes # (Auto) 1.1 x10^3/uL (0.0-1.1) Eosinophils # (Auto) 0.3 x10^3/uL (0.0-0.7) Basophils # (Auto) 0.1 x10^3/uL (0.0-0.2) Sodium Level 140 mmol/L (136-145) Potassium Level 4.1 mmol/L (3.5-5.1) Chloride Level 105 mmol/L (98-107) Carbon Dioxide Level 35 mmol/L (21-32) Anion Gap 0 (6-14) Blood Urea Nitrogen 21 mg/dL (7-20) Creatinine 2.8 mg/dL (0.6-1.0) Estimated GFR (Cockcroft-Gault) 20.9 Glucose Level 117 mg/dL (70-99) Calcium Level 8.1 mg/dL (8.5-10.1) Objective: Assessment: 1. COVID-19 infection with history of COVID-19 with acute respiratory failure in 10/2020. Repeat COVID test positive has been noted in the patient's for a couple of weeks after the initial infection. 2. Encephalopathy, likely metabolic with underlying schizoaffective disorder, anxiety and depression. 3. Acute on chronic congestive heart failure, compensated. 4. Mild troponin elevation. 5. Cardiomyopathy, status post automatic implantable cardioverter-defibrillator. 6. Paroxysmal atrial fibrillation. 7. Diabetes mellitus. 8. Acute kidney injury on chronic kidney disease. 9. Hypothyroidism. 10. Hypertension/hyperlipidemia. 11. Thrombocytopenia. Plan: Plan of Care 1. COVID-19 remains positive in some patients for weeks after initial infection. 2. Maintain aspiration precaution. 3. Monitor off antibiotics. 4. Continue supportive care. ID will sign off. Call if any questions Discussed with nursing staff. CARRIE AMOS MD Nov 29, 2020 13:19
--- NOTE | 2020-11-29 13:22 | PDOC ---
Renal-Progress Notes Subjective Notes Notes NO NEW COMPLAINTS History of Present Illness Hx of present illness STABLE Vitals Vitals Vital Signs Date Time Temp Pulse Resp B/P (MAP) Pulse Ox O2 Delivery O2 Flow Rate FiO2 11/29/20 11:00 96.6 98 47 165/96 (119) 100 Nasal Cannula 4.0 96.6 Weight Weight [ ] I.O. Intake and Output Intake and Output 11/29/20 07:00 Intake Total 450 ml Balance 450 ml Intake Oral 450 ml # Voids 8 Labs Labs Laboratory Tests Test 11/28/20 21:10 11/29/20 04:00 11/29/20 08:08 11/29/20 11:32 Glucose (Fingerstick) 141 mg/dL (70-99) 143 mg/dL (70-99) 110 mg/dL (70-99) White Blood Count 9.9 x10^3/uL (4.0-11.0) Red Blood Count 2.66 x10^6/uL (3.50-5.40) Hemoglobin 8.0 g/dL (12.0-15.5) Hematocrit 25.7 % (36.0-47.0) Mean Corpuscular Volume 97 fL (79-100) Mean Corpuscular Hemoglobin 30 pg (25-35) Mean Corpuscular Hemoglobin Concent 31 g/dL (31-37) Red Cell Distribution Width 18.1 % (11.5-14.5) Platelet Count 70 x10^3/uL (140-400) Neutrophils (%) (Auto) 67 % (31-73) Lymphocytes (%) (Auto) 18 % (24-48) Monocytes (%) (Auto) 12 % (0-9) Eosinophils (%) (Auto) 3 % (0-3) Basophils (%) (Auto) 1 % (0-3) Neutrophils # (Auto) 6.6 x10^3/uL (1.8-7.7) Lymphocytes # (Auto) 1.8 x10^3/uL (1.0-4.8) Monocytes # (Auto) 1.1 x10^3/uL (0.0-1.1) Eosinophils # (Auto) 0.3 x10^3/uL (0.0-0.7) Basophils # (Auto) 0.1 x10^3/uL (0.0-0.2) Sodium Level 140 mmol/L (136-145) Potassium Level 4.1 mmol/L (3.5-5.1) Chloride Level 105 mmol/L (98-107) Carbon Dioxide Level 35 mmol/L (21-32) Anion Gap 0 (6-14) Blood Urea Nitrogen 21 mg/dL (7-20) Creatinine 2.8 mg/dL (0.6-1.0) Estimated GFR (Cockcroft-Gault) 20.9 Glucose Level 117 mg/dL (70-99) Calcium Level 8.1 mg/dL (8.5-10.1) Micro Micro Microbiology 11/26/20 Blood Culture - Preliminary, Resulted NO GROWTH AFTER 2 DAYS Review of Systems Constitutional: yes: other (CONFUSED) Physical Exam General Appearance: no apparent distress Skin: warm Respiratory: decreased breath sounds Heart: S1S2 Abdomen: soft, bowel sounds present Neurology: alert, follow commands, confused Musculoskeletal: Osteoarthritis, Other Assessment Assessment IMP [id number] TO 2.8 FROM 3.2 HYPERNATREMIA CKD STAGE 2 TO 3A MET ENCEPHALOPATHY RECENT COVID 19 PNA WITH ACUTE RESP FAILURE CM WITH EF OF 45% AND AICD P AFIB DM II HTN PLAN AVOID NEPHROTOXINS HYDRATION-HYPOTONIC SALINE SUPPLEMENTAL O2 WILL FOLLOW SUMA SCHMID MD Nov 29, 2020 13:22
[2020-11-29 15:00] VITALS: BP 144/93
--- NOTE | 2020-11-29 16:04 | NUR ---
SW following for discharge planning. Spoke with RN and reviewed chart. Discharge plan remains back to [facility] when stable.
[2020-11-29 19:00] VITALS: BP 150/93
[2020-11-29] MEDS: FAMOTIDINE 20 MG TABLET. PO SCH (20:07)
[2020-11-29] MEDS: ATORVASTATIN CALCIUM 10 MG TABLET. PO SCH (20:07)
[2020-11-29 22:46] VITALS: BP 141/83
[2020-11-30] MEDS: IV 1/2 NORMAL SALINE 1,000 ML IV SCH (02:27)
[2020-11-30 03:00] VITALS: BP 161/92
[2020-11-30 05:31] LABS: CALCIUM 8.1 mg/dL (8.5-10.1); CREATININE 2.6 mg/dL (0.6-1.0); GFR 22.8; POTASSIUM 4.4 mmol/L (3.5-5.1)
[2020-11-30] MEDS: LEVOTHYROXINE 112 MCG TABLET PO SCH (06:06)
[2020-11-30 07:00] VITALS: BP 147/78
[2020-11-30] MEDS: POLYETHYLENE GLYCOL 3350 17 GM PACKET. PO SCH (08:51)
[2020-11-30] MEDS: CHLORHEXIDINE 0.12% 15 ML MOUTHWASH. SWSP SCH ×3 (08:51→21:03)
[2020-11-30] MEDS: MULTIVITAMIN with MINERAL TABLET. PO SCH (08:51)
[2020-11-30] MEDS: METOPROLOL SUCC 24HR ER 100 MG TAB.ER.24H. PO SCH (08:52)
[2020-11-30] MEDS: CALCIUM CARBONATE 500 MG TABLET PO SCH (08:52)
[2020-11-30] MEDS: GABAPENTIN 100 MG CAPSULE. PO SCH ×4 (08:52→21:02)
[2020-11-30] MEDS: ASCORBIC ACID 500 MG TABLET PO SCH (08:52)
[2020-11-30] MEDS: rOPINIRole 1 MG TABLET. PO SCH ×3 (08:52→21:02)
[2020-11-30] MEDS: ENOXAPARIN 30 MG/0.3 ML SYRINGE. SQ SCH (08:53)
[2020-11-30] MEDS: buPROPion XL 150 MG TAB.ER.24H. PO SCH (09:10)
[2020-11-30] MEDS: IPRATROPIUM/ALBUTEROL 20/100mcg/INH INHALER. INH SCH ×4 (09:10→20:00)
--- NOTE | 2020-11-30 09:14 | RAD ---
PROCEDURE: DG VIDEO SWALLOW STUDY STUDY DATE: 11/29/2020 CLINICAL INDICATION / HISTORY: Reason: dysphagia /FT 2.9min / Spl. Instructions: / History: . TECHNIQUE: Real-time fluoroscopic imaging examination was performed in conjunction with speech therap y. The patient was administered barium labeled thin liquids, honey, pudding, and solid consistency c ompounds. FLUOROSCOPY TIME: 2.9 minutes. Number of Images: 0 COMPARISON: Chest x-ray 11/25/2020 FINDINGS: The patient exhibited normal oral control. Reduced bolus formation and propulsion was obse rved along with an increase in transit time in the oral stage. There was mild delay in swallow initia tion. No flash penetration was observed with thin liquids, nectar, and honey consistency compounds. No definite aspiration was observed. Cricopharyngeal bar with mild backflow of ingested contents into the hypopharynx was observed. The patient tolerated solid barium label compounds. IMPRESSION: Mild dysphasia of the oral and pharyngeal phases as described.. No evidence of aspiratio n. Please refer to speech pathology notes for complete details and recommendations. Electronically signed by: Woodrow Salinas MD (11/30/2020 9:12 AM) [facility]
--- NOTE | 2020-11-30 10:20 | PDOC ---
PROGRESS NOTES Date of Service: DATE: 11/30/20 TIME: 10:20 Chief Complaint Chief Complaint VTE Prophylaxis Ordered VTE Prophylaxis Devices: Yes VTE Pharmacological Prophylaxi: Yes Assessment/Plan Assessment/Plan IMPRESSION ACUTE ALTERED MENTAL STATUS, SLOW TO IMPROVE acute hypoxic respiratory failure acute Metabolic encephalopathy with underlying anxiety, depression, schizoaffective disorder. PNEUMONIA Increased patchy mid and bibasilar opacities, represent atelectasis or developing consolidations. possible aspiration pneumonia Bilateral pleural effusions, left greater than right, unchanged. RECENT Fall - ct head negative, no other pain complaints, no fracture CHF s/p AICD not tolerant of BB, allergic to IZZY/ARB. 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 Encephalopathy - chronic due to schizophrenia Schizophrenia - Hypertension. Obesity COVID positive - 10/30/2020, still positive, RECOVERING acute renal injury- Suspect ATN- no improvement , UA No Micr hematuria - recent Renal Bx ordered , per nursing report IR unable to at this time cr 2.8 Supportive care , strict I/O ,avoid nephrotoxins Anemia - Hgb dropping, postmenopausal bleeding , D and C 11/20/2019, stable now Proteinuria- Nephrotic, No Micr hematuria , No WBC's or cast CKD stage 2/3 Cardiomyopathy with EF 45% s/p AICD Small to moderate left pleural effusion, unchanged. Small right pleural effusion, unchanged. Increased patchy left mid and bibasilar opacities Mild dysphasia of the oral and pharyngeal phases . No evidence of aspiration PLAN ADMIT Consult pulmonary consult nephrology IV FLUID SUPPORT // HYDRATION-HYPOTONIC SALINE pt/ot/st Secondary prevention Echo if COVID negative Ongoing lung optimization Plan outpatient ischemic evaluation FOLLOW RENAL FUNCTION OFF antibiotics cxr 1-16 D/W RN Justifications for Admission Justifications for Admission Other Justification Fall, new right pleural effusion History of Present Illness History of Present Illness Identification/Chief Complaint Chief Complaint INC CONFUSION, ALTERED MENTATION// SOA History of Present Illness History of Present Illness SEEN IN ER WITH WORSENING HYPOXIA 60 year old female coming in from nursing facility for worsening mental status and hypoxia. Per staff report she was satting in the 80s on 2.5 L nasal cannula. Patient was hospitalized at this facility for Covid 19 and intubated. Her test was + October 30. She was also seen again and discharged yesterday after a 3-day stay. baseline on 2.5 L nasal cannula Ms Mulligan is a 60 yo F w/ PMHx schizoaffective disorder, CHF with AICD in place, HLD, afib, depression with anxiety, HTN who returns to the hospital after a fall RECENTLY, D/C ON 11-23, Patient was just discharged the day prior after prolonged stay secondary to COVID-19 pneumonia (tested positive on 10/30/2020 - still positive on 11/21/20), acute respiratory failure, acute renal insufficiency, and postmenopausal bleeding s/p D&C. At baseline she feels on 3 to 4 L nasal cannula, stays in nursing home psych SNF. Patient reportedly HAD ALTERED MENTAL STATUS WITH WORSENING HYPOXIA and was sent to the ER for evaluation. Past Medical History Past Medical History Past Medical History Past Medical History Past Medical History: A-Fib, Anxiety, Asthma, CHF, Constipation, Depression, Diabetes-Type II, GERD, High Cholesterol, Hypothyroid, Schizophrenia, Other Additional Past Medical Histor: SCHIZOAFFECTIVE, RESTLESS LEG Past Surgical History: Pacemaker Additional Past Surgical Histo: Pacemaker/defib/BATTERY REPLACED Smoking Status: Former Smoker Alcohol Use: None Drug Use: None FHX OBESITY Cardiovascular: CHF, HTN, Hyperlipidemia, Other Pulmonary: Asthma CENTRAL NERVOUS SYSTEM: Other GI: GERD, Other Heme/Onc: No pertinent hx Hepatobiliary: No pertinent hx Psych: Anxiety, Depression, Schizophrenia Musculoskeletal: Osteoarthritis, Other Rheumatologic: No pertinent hx Infectious disease: No pertinent hx Renal/: Chronic renal insuff, UTI Endocrine: Diabetes, Hypothyroidism Past Surgical History Past Surgical History: Pacemaker Family History Family History: Hypertension, Family History Unknown Social History Smoke: No ALCOHOL: none Drugs: None Current Problem List Problem List Problems Medical Problems: (1) COVID-19 Status: Acute (2) HCAP (healthcare-associated pneumonia) Vitals Vitals Vital Signs Date Time Temp Pulse Resp B/P (MAP) Pulse Ox O2 Delivery O2 Flow Rate FiO2 11/30/20 08:52 89 147/78 11/30/20 07:00 97.2 18 98 Nasal Cannula 4.0 97.2 Physical Exam Physical Exam GENERAL: Alert awake on O2 by nasal cannula, in no acute distress. HEENT: Normocephalic, atraumatic, anicteric. No thrush. NECK: Supple, no JVD. LUNGS: Clear bilaterally. Decreased breath sound at the bases. HEART: S1, S2, tachycardia. ABDOMEN: Soft, bowel sounds present, nontender, nondistended. EXTREMITIES: No edema, no cyanosis. GENITOURINARY: No Hutchins. DERMATOLOGIC: Warm, dry. No generalized rash. NEUROLOGIC: Alert awake PSYCHIATRIC: Calm cooperative General: Cooperative, No acute distress Heart: Regular rate Lungs: Clear, Crackles Abdomen: Normal bowel sounds, Soft, No tenderness Extremities: No cyanosis Skin: No rashes Labs LABS XR CHEST 1V History: Reason: hypoxic / Spl. Instructions: / History: Comparison: November 21, 2020 Findings: Small to moderate left pleural effusion, unchanged. Small right pleural effusion, unchanged. Increased patchy left mid and bibasilar opacities. Unchanged heart size. Stable left-sided pacemaker. No pneumothorax. Impression: 1. Increased patchy mid and bibasilar opacities, represent atelectasis or developing consolidations. 2. Bilateral pleural effusions, left greater than right, unchanged. Electronically signed by: Wilfredo Nagel DO (11/25/2020 9:08 PM) [facility] DICTATED and SIGNED BY: WILFREDO NAGEL DO DATE: 11/25/20 [id number] PROCEDURE: DG VIDEO SWALLOW STUDY STUDY DATE: 11/29/2020 CLINICAL INDICATION / HISTORY: Reason: dysphagia /FT 2.9min / Spl. Instructions: / History: . TECHNIQUE: Real-time fluoroscopic imaging examination was performed in conjunction with speech therapy. The patient was administered barium labeled thin liquids, honey, pudding, and solid consistency compounds. FLUOROSCOPY TIME: 2.9 minutes. Number of Images: 0 COMPARISON: Chest x-ray 11/25/2020 FINDINGS: The patient exhibited normal oral control. Reduced bolus formation and propulsion was observed along with an increase in transit time in the oral stage. There was mild delay in swallow initiation. No flash penetration was observed with thin liquids, nectar, and honey consistency compounds. No definite aspiration was observed. Cricopharyngeal bar with mild backflow of ingested contents into the hypopharynx was observed. The patient tolerated solid barium label compounds. IMPRESSION: Mild dysphasia of the oral and pharyngeal phases as described.. No evidence of aspiration. Please refer to speech pathology notes for complete details and recommendations. Electronically signed by: Kendall Salinas MD (11/30/2020 9:12 AM) [facility] [place] DICTATED and SIGNED BY: KENDALL SALINAS MD DATE: 11/30/20 [id number] Laboratory Tests Test 11/29/20 11:32 11/29/20 15:32 11/29/20 19:37 11/30/20 04:30 Glucose (Fingerstick) 110 mg/dL (70-99) 113 mg/dL (70-99) 92 mg/dL (70-99) Sodium Level 142 mmol/L (136-145) Potassium Level 4.4 mmol/L (3.5-5.1) Chloride Level 103 mmol/L (98-107) Carbon Dioxide Level 34 mmol/L (21-32) Anion Gap 5 (6-14) Blood Urea Nitrogen 22 mg/dL (7-20) Creatinine 2.6 mg/dL (0.6-1.0) Estimated GFR (Cockcroft-Gault) 22.8 Glucose Level 79 mg/dL (70-99) Calcium Level 8.1 mg/dL (8.5-10.1) Phosphorus Level 5.0 mg/dL (2.6-4.7) Albumin 2.0 g/dL (3.4-5.0) Assessment and Plan Assessmemt and Plan Problems Medical Problems: (1) COVID-19 Status: Acute (2) HCAP (healthcare-associated pneumonia) Status: Acute Comment Review of Relevant I have reviewed the following items lucas (where applicable) has been applied. Labs Laboratory Tests Test 11/28/20 17:19 11/28/20 21:10 11/29/20 04:00 11/29/20 08:08 Glucose (Fingerstick) 92 mg/dL (70-99) 141 mg/dL (70-99) 143 mg/dL (70-99) White Blood Count 9.9 x10^3/uL (4.0-11.0) Red Blood Count 2.66 x10^6/uL (3.50-5.40) Hemoglobin 8.0 g/dL (12.0-15.5) Hematocrit 25.7 % (36.0-47.0) Mean Corpuscular Volume 97 fL (79-100) Mean Corpuscular Hemoglobin 30 pg (25-35) Mean Corpuscular Hemoglobin Concent 31 g/dL (31-37) Red Cell Distribution Width 18.1 % (11.5-14.5) Platelet Count 70 x10^3/uL (140-400) Neutrophils (%) (Auto) 67 % (31-73) Lymphocytes (%) (Auto) 18 % (24-48) Monocytes (%) (Auto) 12 % (0-9) Eosinophils (%) (Auto) 3 % (0-3) Basophils (%) (Auto) 1 % (0-3) Neutrophils # (Auto) 6.6 x10^3/uL (1.8-7.7) Lymphocytes # (Auto) 1.8 x10^3/uL (1.0-4.8) Monocytes # (Auto) 1.1 x10^3/uL (0.0-1.1) Eosinophils # (Auto) 0.3 x10^3/uL (0.0-0.7) Basophils # (Auto) 0.1 x10^3/uL (0.0-0.2) Sodium Level 140 mmol/L (136-145) Potassium Level 4.1 mmol/L (3.5-5.1) Chloride Level 105 mmol/L (98-107) Carbon Dioxide Level 35 mmol/L (21-32) Anion Gap 0 (6-14) Blood Urea Nitrogen 21 mg/dL (7-20) Creatinine 2.8 mg/dL (0.6-1.0) Estimated GFR (Cockcroft-Gault) 20.9 Glucose Level 117 mg/dL (70-99) Calcium Level 8.1 mg/dL (8.5-10.1) Test 11/29/20 11:32 11/29/20 15:32 11/29/20 19:37 11/30/20 04:30 Glucose (Fingerstick) 110 mg/dL (70-99) 113 mg/dL (70-99) 92 mg/dL (70-99) Sodium Level 142 mmol/L (136-145) Potassium Level 4.4 mmol/L (3.5-5.1) Chloride Level 103 mmol/L (98-107) Carbon Dioxide Level 34 mmol/L (21-32) Anion Gap 5 (6-14) Blood Urea Nitrogen 22 mg/dL (7-20) Creatinine 2.6 mg/dL (0.6-1.0) Estimated GFR (Cockcroft-Gault) 22.8 Glucose Level 79 mg/dL (70-99) Calcium Level 8.1 mg/dL (8.5-10.1) Phosphorus Level 5.0 mg/dL (2.6-4.7) Albumin 2.0 g/dL (3.4-5.0) Laboratory Tests Test 11/29/20 11:32 11/29/20 15:32 11/29/20 19:37 11/30/20 04:30 Glucose (Fingerstick) 110 mg/dL (70-99) 113 mg/dL (70-99) 92 mg/dL (70-99) Sodium Level 142 mmol/L (136-145) Potassium Level 4.4 mmol/L (3.5-5.1) Chloride Level 103 mmol/L (98-107) Carbon Dioxide Level 34 mmol/L (21-32) Anion Gap 5 (6-14) Blood Urea Nitrogen 22 mg/dL (7-20) Creatinine 2.6 mg/dL (0.6-1.0) Estimated GFR (Cockcroft-Gault) 22.8 Glucose Level 79 mg/dL (70-99) Calcium Level 8.1 mg/dL (8.5-10.1) Phosphorus Level 5.0 mg/dL (2.6-4.7) Albumin 2.0 g/dL (3.4-5.0) Microbiology 11/26/20 Blood Culture - Preliminary, Resulted NO GROWTH AFTER 3 DAYS Medications Current Medications Sodium Chloride 1,000 ml @ 1,000 mls/hr 1X ONCE IV Last administered on 11/25/20at 20:52; Start 11/25/20 at 20:45; Stop 11/25/20 at 21:44; Status DC Dexamethasone Sodium Phosphate (Decadron) 10 mg 1X ONCE IV Last administered o n 11/25/20at 23:54; Start 11/25/20 at 23:15; Stop 11/25/20 at 23:16; Status DC Ceftriaxone Sodium (Rocephin) 1 gm 1X ONCE IVP ; Start 11/25/20 at 23:15; Stop 11/25/20 at 23:25; Status DC Azithromycin 250 ml @ 250 mls/hr 1X ONCE IV ; Start 11/25/20 at 23:15; Stop 11/25/20 at 23:25; Status DC Ondansetron HCl (Zofran) 4 mg PRN Q8HRS PRN IV NAUSEA/VOMITING; Start 11/25/20 at 23:15; Stop 11/26/20 at 23:14; Status DC Acetaminophen (Tylenol) 650 mg PRN Q4HRS PRN PO FEVER > 100.3'F; Start 11/25/20 at 23:15; Stop 11/26/20 at 23:14; Status DC Sodium Chloride 1,000 ml @ 75 mls/hr 1X ONCE IV Last administered on 11/25/20at 23:55; Start 11/25/20 at 23:15; Stop 11/26/20 at 12:34; Status DC Piperacillin Sod/ Tazobactam Sod 2.25 gm/Sodium Chloride 50 ml @ 100 mls/hr 1X ONCE IV Last administered on 11/25/20at 23:30; Start 11/25/20 at 23:30; Stop 11/25/20 at 23:59; Status DC Vancomycin HCl 1.25 gm/Sodium Chloride 250 ml @ 250 mls/hr 1X ONCE IV Last administered on 11/26/20at 00:38; Start 11/25/20 at 23:30; Stop 11/26/20 at 00:29; Status DC Sodium Chloride (Normal Saline Flush) 3 ml QSHIFT PRN IV AFTER MEDS AND BLOOD DRAWS; Start 11/26/20 at 10:30 Sodium Chloride 1,000 ml @ 75 mls/hr [id number] IV Last administered on 11/27/20at 13:49; Start 11/26/20 at 10:30; Stop 11/27/20 at 18:02; Status DC Ondansetron HCl (Zofran) 4 mg PRN Q4HRS PRN IV NAUSEA/VOMITING; Start 11/26/20 at 10:30 Acetaminophen (Tylenol) 650 mg PRN Q4HRS PRN PO TEMP OVER 100.4F OR MILD PAIN; Start 11/26/20 at 10:30 Acetaminophen (Tylenol Supp) 650 mg PRN Q4HRS PRN IA TEMP OVER 100.4F OR MILD PAIN; Start 11/26/20 at 10:30 Sodium Monofluorophosphate (Fleet Adult) 133 ml PRN DAILY PRN IA CONSTIPATION; Start 11/26/20 at 10:30 Docusate Sodium (Colace) 100 mg PRN BID PRN PO HARD STOOLS; Start 11/26/20 at 10:30 Albuterol Sulfate (Ventolin Neb Soln) 2.5 mg PRN Q4HRS PRN NEB SHORTNESS OF BREATH; Start 11/26/20 at 10:30 Guaifenesin (Robitussin) 200 mg PRN Q4HRS PRN PO COUGH; Start 11/26/20 at 10:30 Enoxaparin Sodium (Lovenox 30mg Syringe) 30 mg Q24H SQ Last administered on 11/30/20at 08:53; Start 11/26/20 at 11:00 Acetaminophen (Tylenol) 650 mg Q6HRS PO ; Start 11/26/20 at 18:00; Status UNV Atorvastatin Calcium (Lipitor) 10 mg HS PO Last administered on 11/29/20at 20:07; Start 11/26/20 at 21:00 Bupropion HCl (Wellbutrin Xl) 150 mg DAILY PO Last administered on 11/30/20at 09:10; Start 11/27/20 at 09:00 Calcium Carbonate/ Glycine (Oscal) 500 mg DAILY PO Last administered on 11/30/20at 08:52; Start 11/27/20 at 09:00 Chlorhexidine Gluconate (Peridex) 15 ml BID SWSP Last administered on 11/30/20at 08:51; Start 11/26/20 at 21:00 Famotidine (Pepcid) 20 mg HS PO Last administered on 11/29/20at 20:07; Start 11/26/20 at 21:00 Gabapentin (Neurontin) 100 mg TID PO Last administered on 11/30/20at 08:52; Start 11/26/20 at 14:00 Albuterol/ Ipratropium (Duoneb) 3 ml Q4HRS NEB ; Start 11/26/20 at 16:00; Stop 11/26/20 at 16:29; Status DC Levothyroxine Sodium (Synthroid) 112 mcg DAILY06 PO Last administered on 11/30/20at 06:06; Start 11/27/20 at 06:00 Nystatin (Nystop) 1 scott PRN BID PRN TP RASH Last administered on 11/29/20at 08:36; Start 11/26/20 at 12:15 Polyethylene Glycol (miraLAX PACKET) 17 gm DAILY PO Last administered on 11/30/20at 08:51; Start 11/27/20 at 09:00 Ropinirole HCl (Requip) 1 mg BID PO Last administered on 11/30/20at 08:52; Start 11/26/20 at 21:00 Simethicone (Gas-X) 160 mg PRN Q2HRS PRN PO GAS / BLOATING; Start 11/26/20 at 12:15 Furosemide (Lasix) 40 mg 1X ONCE IVP Last administered on 11/26/20at 16:19; Start 11/26/20 at 16:00; Stop 11/26/20 at 16:01; Status DC Albuterol/ Ipratropium (Combivent Respimat 20-100 Mcg) 1 puff RTQID INH Last administered on 11/30/20at 09:10; Start 11/26/20 at 17:00 Multivitamins (Thera M Plus) 1 tab DAILY PO Last administered on 11/30/20 08:51; Start 11/27/20 at 11:00 Ascorbic Acid (Vitamin C) 500 mg DAILY PO Last administered on 11/30/20at 08:52; Start 11/27/20 at 11:00 Metoprolol Succinate (Toprol Xl) 100 mg DAILY PO Last administered on 11/30/20at 08:52; Start 11/28/20 at 09:00 Metoprolol Succinate (Toprol Xl) 100 mg 1X ONCE PO Last administered on 11/27/20at 14:51; Start 11/27/20 at 15:00; Stop 11/27/20 at 15:01; Status DC Sodium Chloride 1,000 ml @ 75 mls/hr [id number] IV Last administered on 11/30/20at 02:27; Start 11/27/20 at 18:15 Barium Sulfate (Varibar Thin Liquid Apple) 148 gm 1X ONCE PO Last administered on 11/29/20at 13:30; Start 11/29/20 at 12:45; Stop 11/29/20 at 12:46; Status DC Active Scripts Active Dicyclomine Hcl 20 Mg Tablet 1 Tab PO TID 10 Days Reported Tramadol Hcl 50 Mg Tablet 50 Mg PO Q6HRS PRN Mylanta Maximum Strength Liq (Mag Hydrox/Aluminum Hyd/Simeth) 355 Ml Oral.susp 30 Ml PO PRN PRN Ativan (Lorazepam) 0.5 Mg Tablet 0.5 Mg PO Q8HRS PRN Ibu (Ibuprofen) 400 Mg Tablet 1 Tab PO Q6HRS PRN 5 Days NEEDED FOR PAIN Wellbutrin Xl (Bupropion Hcl) 150 Mg Tab.er.24h 150 Mg PO DAILY Artificial Tears Drops (Peg 400/Hypromellose/Glycerin) 15 Ml Drops 1 Drop OS QID 30 Days Folic Acid 0.4 Mg Tablet 0.4 Mg PO DAILY Duoneb 0.5-3(2.5) Mg/3 Ml (Albuterol/Ipratropium) 3 Ml Ampul.neb 3 Ml NEB Q4HRS Clonidine Hcl 0.2 Mg Tablet 0.2 Mg PO TID Multiple Vitamins (Multivitamin) 1 Each Tablet 1 Tab PO DAILY 30 Days Miralax (Polyethylene Glycol 3350) 17 Gm Powd.pack 1 Packet PO DAILY 2 Days dissolve in water Famotidine 20 Mg Tablet 20 Mg PO HS Zofran (Ondansetron Hcl) 4 Mg Tablet 4 Mg PO Q8HRS PRN Tears Again (Polyvinyl Alcohol) 15 Ml Drops 2 Drop EACHEYE Q4HRS 30 Days Polyvinyl Alcohol 15 Ml Drops 2 Drop EACHEYE Q4HRS 30 Days Ropinirole Hcl 1 Mg Tablet 1 Mg PO BID Magnesium Oxide 400 Mg Tablet 400 Mg PO DAILY Loratadine 10 Mg Tablet 10 Mg PO DAILY Humalog (Insulin Lispro) 100 Unit/1 Ml Vial 100 Unit SQ BIDWMEALS 70 - 150 0 units 151 - 200 0 units 201 - 250 2 units 251 - 300 3 units 301 - 349 4 units if FSBS is under 70 or 350 and over call MD [guaifenesin Syrup] 10 Ml PO Q4HRS PRN Coreg (Carvedilol) 25 Mg Tablet 50 Mg PO BIDWMEALS Peridex (Chlorhexidine Gluconate) 15 Ml Mouthwash 15 Ml PO BID 30 Days Swish in mouth for 30 seconds then spit out Calcium Carbonate 500 Mg Tablet 500 Mg PO Q4HRS Atorvastatin Calcium 10 Mg Tablet 10 Mg PO HS Acetaminophen 325 Mg Tablet 650 Mg PO Q6HRS Metformin Hcl 500 Mg Tablet 250 Mg PO BIDWMEALS Imodium A-D (Loperamide HCl) 2 Mg Capsule 2 Mg PO DAILY PRN Risperidone 0.5 Mg Tablet 2 Mg PO DAILY Risperidone 1 Mg Tablet 1 Tab PO QHS Levothyroxine Sodium 112 Mcg Tablet 1 Tab PO DAILY Advair 500-50 Diskus (Fluticasone/Salmeterol) 1 Each Disk.w.dev 1 Puff IH BID Nystatin 15 Gm Powder 1 Scott TP PRN BID PRN Clonazepam (Clonazepam) 0.5 Mg Tablet 1 Tab PO BID Gas-X (Simethicone) 80 Mg Tab.chew 160 Mg PO Q2HR PRN Gabapentin (Gabapentin) 100 Mg Capsule 100 Mg PO TID Vitals/I & O Vital Sign - Last 24 Hours 11/29/20 11/29/20 11/29/20 11/29/20 11:00 15:00 19:00 20:00 Temp 96.6 97.2 97.6 96.6 97.2 97.6 Pulse 98 91 90 Resp 47 21 18 B/P (MAP) 165/96 (119) 144/93 (110) 150/93 (112) Pulse Ox 100 96 97 O2 Delivery Nasal Cannula Nasal Cannula Nasal Cannula Nasal Cannula O2 Flow Rate 4.0 4.0 4.0 4.0 11/29/20 11/30/20 11/30/20 11/30/20 22:46 03:00 07:00 08:52 Temp 96.1 98.0 97.2 96.1 98.0 97.2 Pulse 89 90 89 89 Resp 18 18 18 B/P (MAP) 141/83 (102) 161/92 (115) 147/78 (101) 147/78 Pulse Ox 94 96 98 O2 Delivery Nasal Cannula Nasal Cannula Nasal Cannula O2 Flow Rate 4.0 4.0 4.0 Intake and Output 11/29/20 11/29/20 11/30/20 15:00 23:00 07:00 Intake Total 100 ml 100 ml 0 ml Output Total 800 ml Balance -700 ml 100 ml 0 ml Justicifation of Admission Dx: Justifications for Admission: Justification of Admission Dx: Yes WAYNE TROY MD Nov 30, 2020 10:20
[2020-11-30 11:07] VITALS: BP 158/94
--- NOTE | 2020-11-30 11:57 | PDOC ---
Infectious Disease Note Subjective: Subjective Patient is more alert today Says feels better Remains on O2 by nasal cannula No acute issues per RN Vital Signs: Vital Signs Vital Signs Date Time Temp Pulse Resp B/P (MAP) Pulse Ox O2 Delivery O2 Flow Rate FiO2 11/30/20 11:07 98.8 92 18 158/94 (115) 98 Nasal Cannula 4.0 98.8 Physical Exam: PHYSICAL EXAM GENERAL: Alert awake on O2 by nasal cannula, in no acute distress. HEENT: Normocephalic, atraumatic, anicteric. No thrush. NECK: Supple, no JVD. LUNGS: Clear bilaterally. Decreased breath sound at the bases. HEART: S1, S2, tachycardia. ABDOMEN: Soft, bowel sounds present, nontender, nondistended. EXTREMITIES: No edema, no cyanosis. GENITOURINARY: No Hutchins. DERMATOLOGIC: Warm, dry. No generalized rash. NEUROLOGIC: Alert awake PSYCHIATRIC: Calm cooperative Medications: Inpatient Meds: Current Medications Medications (Trade) Dose Ordered Sig/Eber Start Time Stop Time Status Last Admin Dose Admin Acetaminophen (Tylenol Supp) 650 mg PRN Q4HRS PRN 11/26/20 10:30 Acetaminophen (Tylenol) 650 mg Q6HRS 11/26/20 18:00 UNV Albuterol Sulfate (Ventolin Neb Soln) 2.5 mg PRN Q4HRS PRN 11/26/20 10:30 Albuterol/ Ipratropium (Combivent Respimat 20-100 Mcg) 1 puff RTQID 11/26/20 17:00 11/30/20 09:10 1 PUFF Albuterol/ Ipratropium (Duoneb) 3 ml Q4HRS 11/26/20 16:00 11/26/20 16:29 DC Ascorbic Acid (Vitamin C) 500 mg DAILY 11/27/20 11:00 11/30/20 08:52 500 MG Atorvastatin Calcium (Lipitor) 10 mg HS 11/26/20 21:00 11/29/20 20:07 10 MG Azithromycin 250 ml @ 250 mls/hr 1X ONCE 11/25/20 23:15 11/25/20 23:25 DC Barium Sulfate (Varibar Thin Liquid Apple) 148 gm 1X ONCE 11/29/20 12:45 11/29/20 12:46 DC 11/29/20 13:30 148 GM Bupropion HCl (Wellbutrin Xl) 150 mg DAILY 11/27/20 09:00 11/30/20 09:10 150 MG Calcium Carbonate/ Glycine (Oscal) 500 mg DAILY 11/27/20 09:00 11/30/20 08:52 500 MG Ceftriaxone Sodium (Rocephin) 1 gm 1X ONCE 11/25/20 23:15 11/25/20 23:25 DC Chlorhexidine Gluconate (Peridex) 15 ml BID 11/26/20 21:00 11/30/20 08:51 15 ML Dexamethasone Sodium Phosphate (Decadron) 10 mg 1X ONCE 11/25/20 23:15 11/25/20 23:16 DC 11/25/20 23:54 10 MG Docusate Sodium (Colace) 100 mg PRN BID PRN 11/26/20 10:30 Enoxaparin Sodium (Lovenox 30mg Syringe) 30 mg Q24H 11/26/20 11:00 11/30/20 08:53 30 MG Famotidine (Pepcid) 20 mg HS 11/26/20 21:00 11/29/20 20:07 20 MG Furosemide (Lasix) 40 mg 1X ONCE 11/26/20 16:00 11/26/20 16:01 DC 11/26/20 16:19 40 MG Gabapentin (Neurontin) 100 mg TID 11/26/20 14:00 11/30/20 08:52 100 MG Guaifenesin (Robitussin) 200 mg PRN Q4HRS PRN 11/26/20 10:30 Levothyroxine Sodium (Synthroid) 112 mcg DAILY06 11/27/20 06:00 11/30/20 06:06 112 MCG Metoprolol Succinate (Toprol Xl) 100 mg 1X ONCE 11/27/20 15:00 11/27/20 15:01 DC 11/27/20 14:51 100 MG Multivitamins (Thera M Plus) 1 tab DAILY 11/27/20 11:00 11/30/20 08:51 1 TAB Nystatin (Nystop) 1 luis PRN BID PRN 11/26/20 12:15 11/29/20 08:36 1 LUIS Ondansetron HCl (Zofran) 4 mg PRN Q4HRS PRN 11/26/20 10:30 Piperacillin Sod/ Tazobactam Sod 2.25 gm/Sodium Chloride 50 ml @ 100 mls/hr 1X ONCE 11/25/20 23:30 11/25/20 23:59 DC 11/25/20 23:30 100 MLS/HR Polyethylene Glycol (miraLAX PACKET) 17 gm DAILY 11/27/20 09:00 11/30/20 08:51 17 GM Ropinirole HCl (Requip) 1 mg BID 11/26/20 21:00 11/30/20 08:52 1 MG Simethicone (Gas-X) 160 mg PRN Q2HRS PRN 11/26/20 12:15 Sodium Monofluorophosphate (Fleet Adult) 133 ml PRN DAILY PRN 11/26/20 10:30 Sodium Chloride 1,000 ml @ 75 mls/hr [id number] 11/27/20 18:15 11/30/20 02:27 75 MLS/HR Sodium Chloride (Normal Saline Flush) 3 ml QSHIFT PRN 11/26/20 10:30 Vancomycin HCl 1.25 gm/Sodium Chloride 250 ml @ 250 mls/hr 1X ONCE 11/25/20 23:30 11/26/20 00:29 DC 11/26/20 00:38 250 MLS/HR Labs: Lab Laboratory Tests Test 11/29/20 15:32 11/29/20 19:37 11/30/20 04:30 Glucose (Fingerstick) 113 mg/dL (70-99) 92 mg/dL (70-99) Sodium Level 142 mmol/L (136-145) Potassium Level 4.4 mmol/L (3.5-5.1) Chloride Level 103 mmol/L (98-107) Carbon Dioxide Level 34 mmol/L (21-32) Anion Gap 5 (6-14) Blood Urea Nitrogen 22 mg/dL (7-20) Creatinine 2.6 mg/dL (0.6-1.0) Estimated GFR (Cockcroft-Gault) 22.8 Glucose Level 79 mg/dL (70-99) Calcium Level 8.1 mg/dL (8.5-10.1) Phosphorus Level 5.0 mg/dL (2.6-4.7) Albumin 2.0 g/dL (3.4-5.0) Objective: Assessment: 1. COVID-19 infection with history of COVID-19 with acute respiratory failure in 10/2020. Repeat COVID test positive has been noted in the patient's for a couple of weeks after the initial infection. 2. Encephalopathy, likely metabolic with underlying schizoaffective disorder, anxiety and depression. 3. Acute on chronic congestive heart failure, compensated. 4. Mild troponin elevation. 5. Cardiomyopathy, status post automatic implantable cardioverter-defibrillator. 6. Paroxysmal atrial fibrillation. 7. Diabetes mellitus. 8. Acute kidney injury on chronic kidney disease. 9. Hypothyroidism. 10. Hypertension/hyperlipidemia. 11. Thrombocytopenia. Plan: Plan of Care 1. COVID-19 remains positive in some patients for weeks after initial infection. 2. Maintain aspiration precaution. 3. Monitor off antibiotics. 4. Continue supportive care. ID will sign off. Call if any questions Discussed with nursing staff. CARRIE AMOS MD Nov 30, 2020 11:57
--- NOTE | 2020-11-30 14:43 | PDOC ---
PROGRESS NOTES Date of Service DATE: 11/30/20 TIME: 14:42 Subjective Subjective IN FOLLOW UP OF ARF AND CKD Objective Objective Vital Signs Date Time Temp Pulse Resp B/P (MAP) Pulse Ox O2 Delivery O2 Flow Rate FiO2 11/30/20 11:07 98.8 92 18 158/94 (115) 98 Nasal Cannula 4.0 98.8 Intake and Output 11/30/20 07:00 Intake Total 200 ml Output Total 800 ml Balance -600 ml Intake Oral 200 ml Output Urine Total 800 ml # Voids 1 Physical Exam Physical Exam NO BEDSIDE EXAM DUE TO COVID19 Diagnosis RENAL FAILURE: Acute (Acute tubular necrosis), Chronic (CKD stage III) Assessment Assessment Problems Medical Problems: (1) COVID-19 Status: Acute (2) HCAP (healthcare-associated pneumonia) Status: Acute Plan Plan of Care CONT FLUID BALANCE AND FOLLOW Comment Review of Relevant I have reviewed the following items lucas (where applicable) has been applied. Labs Laboratory Tests Test 11/28/20 17:19 11/28/20 21:10 11/29/20 04:00 11/29/20 08:08 Glucose (Fingerstick) 92 mg/dL (70-99) 141 mg/dL (70-99) 143 mg/dL (70-99) White Blood Count 9.9 x10^3/uL (4.0-11.0) Red Blood Count 2.66 x10^6/uL (3.50-5.40) Hemoglobin 8.0 g/dL (12.0-15.5) Hematocrit 25.7 % (36.0-47.0) Mean Corpuscular Volume 97 fL (79-100) Mean Corpuscular Hemoglobin 30 pg (25-35) Mean Corpuscular Hemoglobin Concent 31 g/dL (31-37) Red Cell Distribution Width 18.1 % (11.5-14.5) Platelet Count 70 x10^3/uL (140-400) Neutrophils (%) (Auto) 67 % (31-73) Lymphocytes (%) (Auto) 18 % (24-48) Monocytes (%) (Auto) 12 % (0-9) Eosinophils (%) (Auto) 3 % (0-3) Basophils (%) (Auto) 1 % (0-3) Neutrophils # (Auto) 6.6 x10^3/uL (1.8-7.7) Lymphocytes # (Auto) 1.8 x10^3/uL (1.0-4.8) Monocytes # (Auto) 1.1 x10^3/uL (0.0-1.1) Eosinophils # (Auto) 0.3 x10^3/uL (0.0-0.7) Basophils # (Auto) 0.1 x10^3/uL (0.0-0.2) Sodium Level 140 mmol/L (136-145) Potassium Level 4.1 mmol/L (3.5-5.1) Chloride Level 105 mmol/L (98-107) Carbon Dioxide Level 35 mmol/L (21-32) Anion Gap 0 (6-14) Blood Urea Nitrogen 21 mg/dL (7-20) Creatinine 2.8 mg/dL (0.6-1.0) Estimated GFR (Cockcroft-Gault) 20.9 Glucose Level 117 mg/dL (70-99) Calcium Level 8.1 mg/dL (8.5-10.1) Test 11/29/20 11:32 11/29/20 15:32 11/29/20 19:37 11/30/20 04:30 Glucose (Fingerstick) 110 mg/dL (70-99) 113 mg/dL (70-99) 92 mg/dL (70-99) Sodium Level 142 mmol/L (136-145) Potassium Level 4.4 mmol/L (3.5-5.1) Chloride Level 103 mmol/L (98-107) Carbon Dioxide Level 34 mmol/L (21-32) Anion Gap 5 (6-14) Blood Urea Nitrogen 22 mg/dL (7-20) Creatinine 2.6 mg/dL (0.6-1.0) Estimated GFR (Cockcroft-Gault) 22.8 Glucose Level 79 mg/dL (70-99) Calcium Level 8.1 mg/dL (8.5-10.1) Phosphorus Level 5.0 mg/dL (2.6-4.7) Albumin 2.0 g/dL (3.4-5.0) Test 11/30/20 11:34 Glucose (Fingerstick) 106 mg/dL (70-99) Laboratory Tests Test 11/29/20 15:32 11/29/20 19:37 11/30/20 04:30 1/16/21 11:34 Glucose (Fingerstick) 113 mg/dL (70-99) 92 mg/dL (70-99) 106 mg/dL (70-99) Sodium Level 142 mmol/L (136-145) Potassium Level 4.4 mmol/L (3.5-5.1) Chloride Level 103 mmol/L (98-107) Carbon Dioxide Level 34 mmol/L (21-32) Anion Gap 5 (6-14) Blood Urea Nitrogen 22 mg/dL (7-20) Creatinine 2.6 mg/dL (0.6-1.0) Estimated GFR (Cockcroft-Gault) 22.8 Glucose Level 79 mg/dL (70-99) Calcium Level 8.1 mg/dL (8.5-10.1) Phosphorus Level 5.0 mg/dL (2.6-4.7) Albumin 2.0 g/dL (3.4-5.0) Microbiology 11/26/20 Blood Culture - Preliminary, Resulted NO GROWTH AFTER 3 DAYS Medications Current Medications Sodium Chloride 1,000 ml @ 1,000 mls/hr 1X ONCE IV Last administered on 11/25/20at 20:52; Start 11/25/20 at 20:45; Stop 11/25/20 at 21:44; Status DC Dexamethasone Sodium Phosphate (Decadron) 10 mg 1X ONCE IV Last administered on 11/25/20at 23:54; Start 11/25/20 at 23:15; Stop 11/25/20 at 23:16; Status DC Ceftriaxone Sodium (Rocephin) 1 gm 1X ONCE IVP ; Start 11/25/20 at 23:15; Stop 11/25/20 at 23:25; Status DC Azithromycin 250 ml @ 250 mls/hr 1X ONCE IV ; Start 11/25/20 at 23:15; Stop 11/25/20 at 23:25; Status DC Ondansetron HCl (Zofran) 4 mg PRN Q8HRS PRN IV NAUSEA/VOMITING; Start 11/25/20 at 23:15; Stop 11/26/20 at 23:14; Status DC Acetaminophen (Tylenol) 650 mg PRN Q4HRS PRN PO FEVER > 100.3'F; Start 11/25/20 at 23:15; Stop 11/26/20 at 23:14; Status DC Sodium Chloride 1,000 ml @ 75 mls/hr 1X ONCE IV Last administered on 11/25/20 at 23:55; Start 11/25/20 at 23:15; Stop 11/26/20 at 12:34; Status DC Piperacillin Sod/ Tazobactam Sod 2.25 gm/Sodium Chloride 50 ml @ 100 mls/hr 1X ONCE IV Last administered on 11/25/20at 23:30; Start 11/25/20 at 23:30; Stop 11/25/20 at 23:59; Status DC Vancomycin HCl 1.25 gm/Sodium Chloride 250 ml @ 250 mls/hr 1X ONCE IV Last administered on 11/26/20at 00:38; Start 11/25/20 at 23:30; Stop 11/26/20 at 00:29; Status DC Sodium Chloride (Normal Saline Flush) 3 ml QSHIFT PRN IV AFTER MEDS AND BLOOD DRAWS; Start 11/26/20 at 10:30 Sodium Chloride 1,000 ml @ 75 mls/hr [id number] IV Last administered on 11/27/20at 13:49; Start 11/26/20 at 10:30; Stop 11/27/20 at 18:02; Status DC Ondansetron HCl (Zofran) 4 mg PRN Q4HRS PRN IV NAUSEA/VOMITING; Start 11/26/20 at 10:30 Acetaminophen (Tylenol) 650 mg PRN Q4HRS PRN PO TEMP OVER 100.4F OR MILD PAIN; Start 11/26/20 at 10:30 Acetaminophen (Tylenol Supp) 650 mg PRN Q4HRS PRN ND TEMP OVER 100.4F OR MILD PAIN; Start 11/26/20 at 10:30 Sodium Monofluorophosphate (Fleet Adult) 133 ml PRN DAILY PRN ND CONSTIPATION; Start 11/26/20 at 10:30 Docusate Sodium (Colace) 100 mg PRN BID PRN PO HARD STOOLS; Start 11/26/20 at 10:30 Albuterol Sulfate (Ventolin Neb Soln) 2.5 mg PRN Q4HRS PRN NEB SHORTNESS OF BREATH; Start 11/26/20 at 10:30 Guaifenesin (Robitussin) 200 mg PRN Q4HRS PRN PO COUGH; Start 11/26/20 at 10:30 Enoxaparin Sodium (Lovenox 30mg Syringe) 30 mg Q24H SQ Last administered on 11/30/20at 08:53; Start 11/26/20 at 11:00 Acetaminophen (Tylenol) 650 mg Q6HRS PO ; Start 11/26/20 at 18:00; Status UNV Atorvastatin Calcium (Lipitor) 10 mg HS PO Last administered on 11/29/20at 20:07; Start 11/26/20 at 21:00 Bupropion HCl (Wellbutrin Xl) 150 mg DAILY PO Last administered on 11/30/20at 09:10; Start 11/27/20 at 09:00 Calcium Carbonate/ Glycine (Oscal) 500 mg DAILY PO Last administered on 11/30/20 08:52; Start 11/27/20 at 09:00 Chlorhexidine Gluconate (Peridex) 15 ml BID SWSP Last administered on 11/30/20at 08:51; Start 11/26/20 at 21:00 Famotidine (Pepcid) 20 mg HS PO Last administered on 11/29/20at 20:07; Start 11/26/20 at 21:00 Gabapentin (Neurontin) 100 mg TID PO Last administered on 11/30/20at 13:42; Start 11/26/20 at 14:00 Albuterol/ Ipratropium (Duoneb) 3 ml Q4HRS NEB ; Start 11/26/20 at 16:00; Stop 11/26/20 at 16:29; Status DC Levothyroxine Sodium (Synthroid) 112 mcg DAILY06 PO Last administered on 11/30/20at 06:06; Start 11/27/20 at 06:00 Nystatin (Nystop) 1 scott PRN BID PRN TP RASH Last administered on 11/29/20at 08:36; Start 11/26/20 at 12:15 Polyethylene Glycol (miraLAX PACKET) 17 gm DAILY PO Last administered on 11/30/20 08:51; Start 11/27/20 at 09:00 Ropinirole HCl (Requip) 1 mg BID PO Last administered on 11/30/20at 08:52; Start 11/26/20 at 21:00 Simethicone (Gas-X) 160 mg PRN Q2HRS PRN PO GAS / BLOATING; Start 11/26/20 at 12:15 Furosemide (Lasix) 40 mg 1X ONCE IVP Last administered on 11/26/20at 16:19; Start 11/26/20 at 16:00; Stop 11/26/20 at 16:01; Status DC Albuterol/ Ipratropium (Combivent Respimat 20-100 Mcg) 1 puff RTQID INH Last administered on 11/30/20at 12:06; Start 11/26/20 at 17:00 Multivitamins (Thera M Plus) 1 tab DAILY PO Last administered on 11/30/20at 08:51; Start 11/27/20 at 11:00 Ascorbic Acid (Vitamin C) 500 mg DAILY PO Last administered on 11/30/20at 08:52; Start 11/27/20 at 11:00 Metoprolol Succinate (Toprol Xl) 100 mg DAILY PO Last administered on 11/30/20at 08:52; Start 11/28/20 at 09:00 Metoprolol Succinate (Toprol Xl) 100 mg 1X ONCE PO Last administered on 11/27/20at 14:51; Start 11/27/20 at 15:00; Stop 11/27/20 at 15:01; Status DC Sodium Chloride 1,000 ml @ 75 mls/hr [id number] IV Last administered on 11/30/20at 02:27; Start 11/27/20 at 18:15 Barium Sulfate (Varibar Thin Liquid Apple) 148 gm 1X ONCE PO Last administered on 11/29/20at 13:30; Start 11/29/20 at 12:45; Stop 11/29/20 at 12:46; Status DC Active Scripts Active Dicyclomine Hcl 20 Mg Tablet 1 Tab PO TID 10 Days Reported Tramadol Hcl 50 Mg Tablet 50 Mg PO Q6HRS PRN Mylanta Maximum Strength Liq (Mag Hydrox/Aluminum Hyd/Simeth) 355 Ml Oral.susp 30 Ml PO PRN PRN Ativan (Lorazepam) 0.5 Mg Tablet 0.5 Mg PO Q8HRS PRN Ibu (Ibuprofen) 400 Mg Tablet 1 Tab PO Q6HRS PRN 5 Days NEEDED FOR PAIN Wellbutrin Xl (Bupropion Hcl) 150 Mg Tab.er.24h 150 Mg PO DAILY Artificial Tears Drops (Peg 400/Hypromellose/Glycerin) 15 Ml Drops 1 Drop OS QID 30 Days Folic Acid 0.4 Mg Tablet 0.4 Mg PO DAILY Duoneb 0.5-3(2.5) Mg/3 Ml (Albuterol/Ipratropium) 3 Ml Ampul.neb 3 Ml NEB Q4HRS Clonidine Hcl 0.2 Mg Tablet 0.2 Mg PO TID Multiple Vitamins (Multivitamin) 1 Each Tablet 1 Tab PO DAILY 30 Days Miralax (Polyethylene Glycol 3350) 17 Gm Powd.pack 1 Packet PO DAILY 2 Days dissolve in water Famotidine 20 Mg Tablet 20 Mg PO HS Zofran (Ondansetron Hcl) 4 Mg Tablet 4 Mg PO Q8HRS PRN Tears Again (Polyvinyl Alcohol) 15 Ml Drops 2 Drop EACHEYE Q4HRS 30 Days Polyvinyl Alcohol 15 Ml Drops 2 Drop EACHEYE Q4HRS 30 Days Ropinirole Hcl 1 Mg Tablet 1 Mg PO BID Magnesium Oxide 400 Mg Tablet 400 Mg PO DAILY Loratadine 10 Mg Tablet 10 Mg PO DAILY Humalog (Insulin Lispro) 100 Unit/1 Ml Vial 100 Unit SQ BIDWMEALS 70 - 150 0 units 151 - 200 0 units 201 - 250 2 units 251 - 300 3 units 301 - 349 4 units if FSBS is under 70 or 350 and over call MD [guaifenesin Syrup] 10 Ml PO Q4HRS PRN Coreg (Carvedilol) 25 Mg Tablet 50 Mg PO BIDWMEALS Peridex (Chlorhexidine Gluconate) 15 Ml Mouthwash 15 Ml PO BID 30 Days Swish in mouth for 30 seconds then spit out Calcium Carbonate 500 Mg Tablet 500 Mg PO Q4HRS Atorvastatin Calcium 10 Mg Tablet 10 Mg PO HS Acetaminophen 325 Mg Tablet 650 Mg PO Q6HRS Metformin Hcl 500 Mg Tablet 250 Mg PO BIDWMEALS Imodium A-D (Loperamide HCl) 2 Mg Capsule 2 Mg PO DAILY PRN Risperidone 0.5 Mg Tablet 2 Mg PO DAILY Risperidone 1 Mg Tablet 1 Tab PO QHS Levothyroxine Sodium 112 Mcg Tablet 1 Tab PO DAILY Advair 500-50 Diskus (Fluticasone/Salmeterol) 1 Each Disk.w.dev 1 Puff IH BID Nystatin 15 Gm Powder 1 Scott TP PRN BID PRN Clonazepam (Clonazepam) 0.5 Mg Tablet 1 Tab PO BID Gas-X (Simethicone) 80 Mg Tab.chew 160 Mg PO Q2HR PRN Gabapentin (Gabapentin) 100 Mg Capsule 100 Mg PO TID Vitals/I & O Vital Sign - Last 24 Hours 11/29/20 11/29/20 11/29/20 11/29/20 15:00 19:00 20:00 22:46 Temp 97.2 97.6 96.1 97.2 97.6 96.1 Pulse 91 90 89 Resp 21 18 18 B/P (MAP) 144/93 (110) 150/93 (112) 141/83 (102) Pulse Ox 96 97 94 O2 Delivery Nasal Cannula Nasal Cannula Nasal Cannula Nasal Cannula O2 Flow Rate 4.0 4.0 4.0 4.0 11/30/20 11/30/20 11/30/20 11/30/20 03:00 07:00 08:00 08:52 Temp 98.0 97.2 98.0 97.2 Pulse 90 89 89 Resp 18 18 B/P (MAP) 161/92 (115) 147/78 (101) 147/78 Pulse Ox 96 98 O2 Delivery Nasal Cannula Nasal Cannula Nasal Cannula O2 Flow Rate 4.0 4.0 3.0 11/30/20 11:07 Temp 98.8 98.8 Pulse 92 Resp 18 B/P (MAP) 158/94 (115) Pulse Ox 98 O2 Delivery Nasal Cannula O2 Flow Rate 4.0 Intake and Output 11/29/20 11/29/20 11/30/20 15:00 23:00 07:00 Intake Total 100 ml 100 ml 0 ml Output Total 800 ml Balance -700 ml 100 ml 0 ml Justifications for Admission General Conditions Poss Metaboilic Acidosis?: Yes Justification for admission: Patient has tachycardia (> 100 beats per minute) or hypotension (SBP < 90 mm Hg) leading to inadequate systemic perfusion as indicated by metabolic acidosis with arterial pH of less than 7.35. ALTERED MENTAL STATUS WITH HYPOXIA Other Justification Fall, new right pleural effusion ASHLYN RHOADES MD Nov 30, 2020 14:43
[2020-11-30 15:26] VITALS: BP 144/91
[2020-11-30 19:00] VITALS: BP 119/67
[2020-11-30] MEDS: ATORVASTATIN CALCIUM 10 MG TABLET. PO SCH ×2 (21:00→21:02)
[2020-11-30] MEDS: FAMOTIDINE 20 MG TABLET. PO SCH ×2 (21:00→21:02)
--- NOTE | 2020-11-30 22:24 | NUR ---
Non administer medications for 2100 due to non verbal, not alert or oriented status at this time.
[2020-11-30 22:51] VITALS: BP 147/75
[2020-12-01] MEDS: IV 1/2 NORMAL SALINE 1,000 ML IV SCH ×2 (01:41→02:15)
[2020-12-01 02:49] VITALS: BP 139/70
[2020-12-01 05:00] LABS: ALBUMIN 1.9 g/dL (3.4-5.0); CALCIUM 7.6 mg/dL (8.5-10.1); CREATININE 2.8 mg/dL (0.6-1.0); GFR 20.9; PHOSPHORUS 4.6 mg/dL (2.6-4.7); POTASSIUM 4.4 mmol/L (3.5-5.1)
[2020-12-01] MEDS: DEXTROSE 50% 25 GM / 50ML DISP.SYRIN. IV PRN ×2 (05:43→10:13)
[2020-12-01] MEDS: LEVOTHYROXINE 112 MCG TABLET PO SCH (06:00)
[2020-12-01 07:56] VITALS: BP 150/83
--- NOTE | 2020-12-01 08:33 | PDOC ---
Infectious Disease Note Subjective: Subjective Patient says feels better Remains on O2 by nasal cannula No acute issues per RN Vital Signs: Vital Signs Vital Signs Date Time Temp Pulse Resp B/P (MAP) Pulse Ox O2 Delivery O2 Flow Rate FiO2 12/01/20 07:56 97.6 90 20 150/83 (105) 94 Nasal Cannula 2.0 97.6 Physical Exam: PHYSICAL EXAM GENERAL: Alert awake on O2 by nasal cannula, in no acute distress. HEENT: Normocephalic, atraumatic, anicteric. No thrush. NECK: Supple, no JVD. LUNGS: Clear bilaterally. Decreased breath sound at the bases. HEART: S1, S2, tachycardia. ABDOMEN: Soft, bowel sounds present, nontender, nondistended. EXTREMITIES: No edema, no cyanosis. GENITOURINARY: No Hutchins. DERMATOLOGIC: Warm, dry. No generalized rash. NEUROLOGIC: Alert awake PSYCHIATRIC: Calm cooperative Medications: Inpatient Meds: Current Medications Medications (Trade) Dose Ordered Sig/Eber Start Time Stop Time Status Last Admin Dose Admin Acetaminophen (Tylenol Supp) 650 mg PRN Q4HRS PRN 11/26/20 10:30 Acetaminophen (Tylenol) 650 mg Q6HRS 11/26/20 18:00 UNV Albuterol Sulfate (Ventolin Neb Soln) 2.5 mg PRN Q4HRS PRN 11/26/20 10:30 Albuterol/ Ipratropium (Combivent Respimat 20-100 Mcg) 1 puff RTQID 11/26/20 17:00 11/30/20 17:06 1 PUFF Albuterol/ Ipratropium (Duoneb) 3 ml Q4HRS 11/26/20 16:00 11/26/20 16:29 DC Ascorbic Acid (Vitamin C) 500 mg DAILY 11/27/20 11:00 11/30/20 08:52 500 MG Atorvastatin Calcium (Lipitor) 10 mg HS 11/26/20 21:00 11/29/20 20:07 10 MG Azithromycin 250 ml @ 250 mls/hr 1X ONCE 11/25/20 23:15 11/25/20 23:25 DC Barium Sulfate (Varibar Thin Liquid Apple) 148 gm 1X ONCE 11/29/20 12:45 11/29/20 12:46 DC 11/29/20 13:30 148 GM Bupropion HCl (Wellbutrin Xl) 150 mg DAILY 11/27/20 09:00 11/30/20 09:10 150 MG Calcium Carbonate/ Glycine (Oscal) 500 mg DAILY 11/27/20 09:00 11/30/20 08:52 500 MG Ceftriaxone Sodium (Rocephin) 1 gm 1X ONCE 11/25/20 23:15 11/25/20 23:25 DC Chlorhexidine Gluconate (Peridex) 15 ml BID 11/26/20 21:00 11/30/20 08:51 15 ML Dexamethasone Sodium Phosphate (Decadron) 10 mg 1X ONCE 11/25/20 23:15 11/25/20 23:16 DC 11/25/20 23:54 10 MG Dextrose (Dextrose 50%-Water Syringe) 12.5 gm PRN Q15MIN PRN 12/01/20 05:45 12/01/20 05:43 12.5 GM Docusate Sodium (Colace) 100 mg PRN BID PRN 11/26/20 10:30 Enoxaparin Sodium (Lovenox 30mg Syringe) 30 mg Q24H 11/26/20 11:00 11/30/20 08:53 30 MG Famotidine (Pepcid) 20 mg HS 11/26/20 21:00 11/29/20 20:07 20 MG Furosemide (Lasix) 40 mg 1X ONCE 11/26/20 16:00 11/26/20 16:01 DC 11/26/20 16:19 40 MG Gabapentin (Neurontin) 100 mg TID 11/26/20 14:00 11/30/20 13:42 100 MG Guaifenesin (Robitussin) 200 mg PRN Q4HRS PRN 11/26/20 10:30 Levothyroxine Sodium (Synthroid) 112 mcg DAILY06 11/27/20 06:00 11/30/20 06:06 112 MCG Metoprolol Succinate (Toprol Xl) 100 mg 1X ONCE 11/27/20 15:00 11/27/20 15:01 DC 11/27/20 14:51 100 MG Multivitamins (Thera M Plus) 1 tab DAILY 11/27/20 11:00 11/30/20 08:51 1 TAB Nystatin (Nystop) 1 luis PRN BID PRN 11/26/20 12:15 11/29/20 08:36 1 LUIS Ondansetron HCl (Zofran) 4 mg PRN Q4HRS PRN 11/26/20 10:30 Piperacillin Sod/ Tazobactam Sod 2.25 gm/Sodium Chloride 50 ml @ 100 mls/hr 1X ONCE 11/25/20 23:30 11/25/20 23:59 DC 11/25/20 23:30 100 MLS/HR Polyethylene Glycol (miraLAX PACKET) 17 gm DAILY 11/27/20 09:00 11/30/20 08:51 17 GM Ropinirole HCl (Requip) 1 mg BID 11/26/20 21:00 11/30/20 08:52 1 MG Simethicone (Gas-X) 160 mg PRN Q2HRS PRN 11/26/20 12:15 Sodium Monofluorophosphate (Fleet Adult) 133 ml PRN DAILY PRN 11/26/20 10:30 Sodium Chloride 1,000 ml @ 75 mls/hr [id number] 11/27/20 18:15 12/01/20 01:41 75 MLS/HR Sodium Chloride (Normal Saline Flush) 3 ml QSHIFT PRN 11/26/20 10:30 Vancomycin HCl 1.25 gm/Sodium Chloride 250 ml @ 250 mls/hr 1X ONCE 11/25/20 23:30 11/26/20 00:29 DC 11/26/20 00:38 250 MLS/HR Labs: Lab Laboratory Tests Test 11/30/20 11:34 11/30/20 16:35 11/30/20 19:02 12/01/20 04:00 Glucose (Fingerstick) 106 mg/dL (70-99) 75 mg/dL (70-99) 86 mg/dL (70-99) Sodium Level 142 mmol/L (136-145) Potassium Level 4.4 mmol/L (3.5-5.1) Chloride Level 104 mmol/L (98-107) Carbon Dioxide Level 32 mmol/L (21-32) Anion Gap 6 (6-14) Blood Urea Nitrogen 23 mg/dL (7-20) Creatinine 2.8 mg/dL (0.6-1.0) Estimated GFR (Cockcroft-Gault) 20.9 Glucose Level 57 mg/dL (70-99) Calcium Level 7.6 mg/dL (8.5-10.1) Phosphorus Level 4.6 mg/dL (2.6-4.7) Albumin 1.9 g/dL (3.4-5.0) Objective: Assessment: 1. COVID-19 infection with history of COVID-19 with acute respiratory failure in 10/2020. Repeat COVID test positive has been noted in the patient's for a couple of weeks after the initial infection. 2. Encephalopathy, likely metabolic with underlying schizoaffective disorder, anxiety and depression. 3. Acute on chronic congestive heart failure, compensated. 4. Mild troponin elevation. 5. Cardiomyopathy, status post automatic implantable cardioverter-defibrillator. 6. Paroxysmal atrial fibrillation. 7. Diabetes mellitus. 8. Acute kidney injury on chronic kidney disease. 9. Hypothyroidism. 10. Hypertension/hyperlipidemia. 11. Thrombocytopenia. Plan: Plan of Care 1. COVID-19 remains positive in some patients for weeks after initial infection. 2. Maintain aspiration precaution. 3. Monitor off antibiotics. 4. Continue supportive care. ID will sign off. Call if any questions Discussed with nursing staff. CARRIE AMOS MD Dec 01, 2020 08:33
--- NOTE | 2020-12-01 10:13 | RAD ---
EXAM: XR CHEST 1V INDICATION: Reason: pneumonia / Spl. Instructions: / History: . TECHNIQUE: Single view COMPARISON: 11/25/2020 FINDINGS: Left chest AICD is unchanged. The heart size is enlarged, similar to prior. The great vessels appear unremarkable. There is no hilar or mediastinal mass. The lungs remain low in volume and show patchy airspace opacities bilaterally, similar to prior. Thes e are more confluent at the left lung base.. There is no pleural effusion or pneumothorax. There are no significant osseous abnormalities. IMPRESSION: Cardiomegaly with patchy bilateral airspace opacities, similar to prior. Differential considerations include pulmonary edema versus atypical pneumonia. Electronically signed by: Woodrow Salinas MD (12/01/2020 10:11 AM) [facility] [place]
[2020-12-01] MEDS: IPRATROPIUM/ALBUTEROL 20/100mcg/INH INHALER. INH SCH ×4 (10:21→20:00)
[2020-12-01] MEDS: CHLORHEXIDINE 0.12% 15 ML MOUTHWASH. SWSP SCH ×2 (10:21→20:06)
[2020-12-01] MEDS: POLYETHYLENE GLYCOL 3350 17 GM PACKET. PO SCH (10:21)
[2020-12-01] MEDS: MULTIVITAMIN with MINERAL TABLET. PO SCH (10:22)
[2020-12-01] MEDS: buPROPion XL 150 MG TAB.ER.24H. PO SCH (10:22)
[2020-12-01] MEDS: ASCORBIC ACID 500 MG TABLET PO SCH (10:22)
[2020-12-01] MEDS: GABAPENTIN 100 MG CAPSULE. PO SCH ×3 (10:22→20:06)
[2020-12-01] MEDS: rOPINIRole 1 MG TABLET. PO SCH ×2 (10:23→20:06)
[2020-12-01] MEDS: METOPROLOL SUCC 24HR ER 100 MG TAB.ER.24H. PO SCH (10:23)
[2020-12-01] MEDS: ENOXAPARIN 30 MG/0.3 ML SYRINGE. SQ SCH (10:23)
[2020-12-01] MEDS: CALCIUM CARBONATE 500 MG TABLET PO SCH (10:23)
--- NOTE | 2020-12-01 10:57 | PDOC ---
PROGRESS NOTES Date of Service: DATE: 12/01/20 TIME: 10:57 Chief Complaint Chief Complaint VTE Prophylaxis Ordered VTE Prophylaxis Devices: Yes VTE Pharmacological Prophylaxi: Yes Assessment/Plan Assessment/Plan IMPRESSION ACUTE ALTERED MENTAL STATUS, SLOW TO IMPROVE acute hypoxic respiratory failure acute Metabolic encephalopathy with underlying anxiety, depression, schizoaffective disorder. PNEUMONIA Increased patchy mid and bibasilar opacities, represent atelectasis or developing consolidations. possible aspiration pneumonia Bilateral pleural effusions, left greater than right, unchanged. RECENT Fall - ct head negative, no other pain complaints, no fracture CHF s/p AICD not tolerant of BB, allergic to IZZY/ARB. 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 Encephalopathy - chronic due to schizophrenia Schizophrenia - Hypertension. Obesity COVID positive - 10/30/2020, still positive, RECOVERING acute renal injury- Suspect ATN- no improvement , UA No Micr hematuria - recent Renal Bx ordered , per nursing report IR unable to at this time cr 2.8 Supportive care , strict I/O ,avoid nephrotoxins Anemia - Hgb dropping, postmenopausal bleeding , D and C 11/20/2019, stable now Proteinuria- Nephrotic, No Micr hematuria , No WBC's or cast CKD stage 2/3 Cardiomyopathy with EF 45% s/p AICD Small to moderate left pleural effusion, unchanged. Small right pleural effusion, unchanged. Increased patchy left mid and bibasilar opacities Mild dysphasia of the oral and pharyngeal phases . No evidence of aspiration PLAN ADMIT Consult pulmonary consult nephrology IV FLUID SUPPORT // HYDRATION-HYPOTONIC SALINE pt/ot/st Secondary prevention Echo if COVID negative Ongoing lung optimization Plan outpatient ischemic evaluation FOLLOW RENAL FUNCTION OFF antibiotics cxr 11-30 ID S/O 11-30 CR=2.8 D/W RN Justifications for Admission Justifications for Admission Other Justification Fall, new right pleural effusion History of Present Illness History of Present Illness Identification/Chief Complaint Chief Complaint INC CONFUSION, ALTERED MENTATION// SOA History of Present Illness History of Present Illness SEEN IN ER WITH WORSENING HYPOXIA 60 year old female coming in from nursing facility for worsening mental status and hypoxia. Per staff report she was s atting in the 80s on 2.5 L nasal cannula. Patient was hospitalized at this facility for Covid 19 and intubated. Her test was + October 30. She was also seen again and discharged yesterday after a 3-day stay. baseline on 2.5 L nasal cannula Ms Mulligan is a 60 yo F w/ PMHx schizoaffective disorder, CHF with AICD in place, HLD, afib, depression with anxiety, HTN who returns to the hospital after a fall RECENTLY, D/C ON 11-23, Patient was just discharged the day prior after prolonged stay secondary to COVID-19 pneumonia (tested positive on 10/30/2020 - still positive on 11/21/20), acute respiratory failure, acute renal insufficiency, and postmenopausal bleeding s/p D&C. At baseline she feels on 3 to 4 L nasal cannula, stays in [facility]. Patient reportedly HAD ALTERED MENTAL STATUS WITH WORSENING HYPOXIA and was sent to the ER for evaluation. Past Medical History Past Medical History Past Medical History Past Medical History Past Medical History: A-Fib, Anxiety, Asthma, CHF, Constipation, Depression, Diabetes-Type II, GERD, High Cholesterol, Hypothyroid, Schizophrenia, Other Additional Past Medical Histor: SCHIZOAFFECTIVE, RESTLESS LEG Past Surgical History: Pacemaker Additional Past Surgical Histo: Pacemaker/defib/BATTERY REPLACED Smoking Status: Former Smoker Alcohol Use: None Drug Use: None FHX OBESITY Cardiovascular: CHF, HTN, Hyperlipidemia, Other Pulmonary: Asthma CENTRAL NERVOUS SYSTEM: Other GI: GERD, Other Heme/Onc: No pertinent hx Hepatobiliary: No pertinent hx Psych: Anxiety, Depression, Schizophrenia Musculoskeletal: Osteoarthritis, Other Rheumatologic: No pertinent hx Infectious disease: No pertinent hx Renal/: Chronic renal insuff, UTI Endocrine: Diabetes, Hypothyroidism Past Surgical History Past Surgical History: Pacemaker Family History Family History: Hypertension, Family History Unknown Social History Smoke: No ALCOHOL: none Drugs: None Current Problem List Problem List Problems Medical Problems: (1) COVID-19 Status: Acute (2) HCAP (healthcare-associated pneumonia) Vitals Vitals Vital Signs Date Time Temp Pulse Resp B/P (MAP) Pulse Ox O2 Delivery O2 Flow Rate FiO2 12/01/20 10:23 90 150/83 12/01/20 07:56 97.6 20 94 Nasal Cannula 2.0 97.6 Physical Exam Physical Exam GENERAL: Alert awake on O2 by nasal cannula, in no acute distress. HEENT: Normocephalic, atraumatic, anicteric. No thrush. NECK: Supple, no JVD. LUNGS: Clear bilaterally. Decreased breath sound at the bases. HEART: S1, S2, tachycardia. ABDOMEN: Soft, bowel sounds present, nontender, nondistended. EXTREMITIES: No edema, no cyanosis. GENITOURINARY: No Hutchins. DERMATOLOGIC: Warm, dry. No generalized rash. NEUROLOGIC: Alert awake PSYCHIATRIC: Calm cooperative General: Cooperative, No acute distress Heart: Regular rate Lungs: Clear, Crackles Abdomen: Normal bowel sounds, Soft, No tenderness Extremities: No cyanosis Skin: No rashes Labs LABS EXAM: XR CHEST 1V INDICATION: Reason: pneumonia / Spl. Instructions: / History: . TECHNIQUE: Single view COMPARISON: 11/25/2020 FINDINGS: Left chest AICD is unchanged. The heart size is enlarged, similar to prior. The great vessels appear unremarkable. There is no hilar or mediastinal mass. The lungs remain low in volume and show patchy airspace opacities bilaterally, similar to prior. These are more confluent at the left lung base.. There is no pleural effusion or pneumothorax. There are no significant osseous abnormalities. IMPRESSION: Cardiomegaly with patchy bilateral airspace opacities, similar to prior. Differential considerations include pulmonary edema versus atypical pneumonia. Electronically signed by: Kendall Salinas MD (12/01/2020 10:11 AM) [facility] [place] and SIGNED BY: KENDALL SALINAS MD DATE: 12/01/20 [id number] Laboratory Tests Test 11/30/20 11:34 11/30/20 16:35 11/30/20 19:02 12/01/20 04:00 Glucose (Fingerstick) 106 mg/dL (70-99) 75 mg/dL (70-99) 86 mg/dL (70-99) Sodium Level 142 mmol/L (136-145) Potassium Level 4.4 mmol/L (3.5-5.1) Chloride Level 104 mmol/L (98-107) Carbon Dioxide Level 32 mmol/L (21-32) Anion Gap 6 (6-14) Blood Urea Nitrogen 23 mg/dL (7-20) Creatinine 2.8 mg/dL (0.6-1.0) Estimated GFR (Cockcroft-Gault) 20.9 Glucose Level 57 mg/dL (70-99) Calcium Level 7.6 mg/dL (8.5-10.1) Phosphorus Level 4.6 mg/dL (2.6-4.7) Albumin 1.9 g/dL (3.4-5.0) Assessment and Plan Assessmemt and Plan Problems Medical Problems: (1) COVID-19 Status: Acute (2) HCAP (healthcare-associated pneumonia) Status: Acute Comment Review of Relevant I have reviewed the following items lucas (where applicable) has been applied. Labs Laboratory Tests Test 11/29/20 11:32 11/29/20 15:32 11/29/20 19:37 11/30/20 04:30 Glucose (Fingerstick) 110 mg/dL (70-99) 113 mg/dL (70-99) 92 mg/dL (70-99) Sodium Level 142 mmol/L (136-145) Potassium Level 4.4 mmol/L (3.5-5.1) Chloride Level 103 mmol/L (98-107) Carbon Dioxide Level 34 mmol/L (21-32) Anion Gap 5 (6-14) Blood Urea Nitrogen 22 mg/dL (7-20) Creatinine 2.6 mg/dL (0.6-1.0) Estimated GFR (Cockcroft-Gault) 22.8 Glucose Level 79 mg/dL (70-99) Calcium Level 8.1 mg/dL (8.5-10.1) Phosphorus Level 5.0 mg/dL (2.6-4.7) Albumin 2.0 g/dL (3.4-5.0) Test 11/30/20 06:57 11/30/20 11:34 11/30/20 16:35 11/30/20 19:02 Glucose (Fingerstick) 85 mg/dL (70-99) 106 mg/dL (70-99) 75 mg/dL (70-99) 86 mg/dL (70-99) Test 12/01/20 04:00 Sodium Level 142 mmol/L (136-145) Potassium Level 4.4 mmol/L (3.5-5.1) Chloride Level 104 mmol/L (98-107) Carbon Dioxide Level 32 mmol/L (21-32) Anion Gap 6 (6-14) Blood Urea Nitrogen 23 mg/dL (7-20) Creatinine 2.8 mg/dL (0.6-1.0) Estimated GFR (Cockcroft-Gault) 20.9 Glucose Level 57 mg/dL (70-99) Calcium Level 7.6 mg/dL (8.5-10.1) Phosphorus Level 4.6 mg/dL (2.6-4.7) Albumin 1.9 g/dL (3.4-5.0) Laboratory Tests Test 11/30/20 11:34 11/30/20 16:35 11/30/20 19:02 12/01/20 04:00 Glucose (Fingerstick) 106 mg/dL (70-99) 75 mg/dL (70-99) 86 mg/dL (70-99) Sodium Level 142 mmol/L (136-145) Potassium Level 4.4 mmol/L (3.5-5.1) Chloride Level 104 mmol/L (98-107) Carbon Dioxide Level 32 mmol/L (21-32) Anion Gap 6 (6-14) Blood Urea Nitrogen 23 mg/dL (7-20) Creatinine 2.8 mg/dL (0.6-1.0) Estimated GFR (Cockcroft-Gault) 20.9 Glucose Level 57 mg/dL (70-99) Calcium Level 7.6 mg/dL (8.5-10.1) Phosphorus Level 4.6 mg/dL (2.6-4.7) Albumin 1.9 g/dL (3.4-5.0) Microbiology 11/26/20 Blood Culture - Preliminary, Resulted NO GROWTH AFTER 4 DAYS Medications Current Medications Sodium Chloride 1,000 ml @ 1,000 mls/hr 1X ONCE IV Last administered on 11/25/20at 20:52; Start 11/25/20 at 20:45; Stop 11/25/20 at 21:44; Status DC Dexamethasone Sodium Phosphate (Decadron) 10 mg 1X ONCE IV Last administered on 11/25/20at 23:54; Start 11/25/20 at 23:15; Stop 11/25/20 at 23:16; Status DC Ceftriaxone Sodium (Rocephin) 1 gm 1X ONCE IVP ; Start 11/25/20 at 23:15; Stop 11/25/20 at 23:25; Status DC Azithromycin 250 ml @ 250 mls/hr 1X ONCE IV ; Start 11/25/20 at 23:15; Stop 11/25/20 at 23:25; Status DC Ondansetron HCl (Zofran) 4 mg PRN Q8HRS PRN IV NAUSEA/VOMITING; Start 11/25/20 at 23:15; Stop 11/26/20 at 23:14; Status DC Acetaminophen (Tylenol) 650 mg PRN Q4HRS PRN PO FEVER > 100.3'F; Start 11/25/20 at 23:15; Stop 11/26/20 at 23:14; Status DC Sodium Chloride 1,000 ml @ 75 mls/hr 1X ONCE IV Last administered on 11/25/20at 23:55; Start 11/25/20 at 23:15; Stop 11/26/20 at 12:34; Status DC Piperacillin Sod/ Tazobactam Sod 2.25 gm/Sodium Chloride 50 ml @ 100 mls/hr 1X ONCE IV Last administered on 11/25/20at 23:30; Start 11/25/20 at 23:30; Stop 11/25/20 at 23:59; Status DC Vancomycin HCl 1.25 gm/Sodium Chloride 250 ml @ 250 mls/hr 1X ONCE IV Last administered on 11/26/20at 00:38; Start 11/25/20 at 23:30; Stop 11/26/20 at 00:29; Status DC Sodium Chloride (Normal Saline Flush) 3 ml QSHIFT PRN IV AFTER MEDS AND BLOOD DRAWS; Start 11/26/20 at 10:30 Sodium Chloride 1,000 ml @ 75 mls/hr [id number] IV Last administered on 11/27/20at 13:49; Start 11/26/20 at 10:30; Stop 11/27/20 at 18:02; Status DC Ondansetron HCl (Zofran) 4 mg PRN Q4HRS PRN IV NAUSEA/VOMITING; Start 11/26/20 at 10:30 Acetaminophen (Tylenol) 650 mg PRN Q4HRS PRN PO TEMP OVER 100.4F OR MILD PAIN; Start 11/26/20 at 10:30 Acetaminophen (Tylenol Supp) 650 mg PRN Q4HRS PRN IN TEMP OVER 100.4F OR MILD PAIN; Start 11/26/20 at 10:30 Sodium Monofluorophosphate (Fleet Adult) 133 ml PRN DAILY PRN IN CONSTIPATION; Start 11/26/20 at 10:30 Docusate Sodium (Colace) 100 mg PRN BID PRN PO HARD STOOLS; Start 11/26/20 at 10:30 Albuterol Sulfate (Ventolin Neb Soln) 2.5 mg PRN Q4HRS PRN NEB SHORTNESS OF BREATH; Start 11/26/20 at 10:30 Guaifenesin (Robitussin) 200 mg PRN Q4HRS PRN PO COUGH; Start 11/26/20 at 10:30 Enoxaparin Sodium (Lovenox 30mg Syringe) 30 mg Q24H SQ Last administered on 12/01/20at 10:23; Start 11/26/20 at 11:00 Acetaminophen (Tylenol) 650 mg Q6HRS PO ; Start 11/26/20 at 18:00; Status UNV Atorvastatin Calcium (Lipitor) 10 mg HS PO Last administered on 11/29/20at 20:07; Start 11/26/20 at 21:00 Bupropion HCl (Wellbutrin Xl) 150 mg DAILY PO Last administered on 12/01/20at 10:22; Start 11/27/20 at 09:00 Calcium Carbonate/ Glycine (Oscal) 500 mg DAILY PO Last administered on 12/01/20at 10:23; Start 11/27/20 at 09:00 Chlorhexidine Gluconate (Peridex) 15 ml BID SWSP Last administered on 12/01/20at 10:21; Start 11/26/20 at 21:00 Famotidine (Pepcid) 20 mg HS PO Last administered on 11/29/20at 20:07; Start 11/26/20 at 21:00 Gabapentin (Neurontin) 100 mg TID PO Last administered on 12/01/20at 10:22; Start 11/26/20 at 14:00 Albuterol/ Ipratropium (Duoneb) 3 ml Q4HRS NEB ; Start 11/26/20 at 16:00; Stop 11/26/20 at 16:29; Status DC Levothyroxine Sodium (Synthroid) 112 mcg DAILY06 PO Last administered on 11/30/20at 06:06; Start 11/27/20 at 06:00 Nystatin (Nystop) 1 scott PRN BID PRN TP RASH Last administered on 11/29/20at 08:36; Start 11/26/20 at 12:15 Polyethylene Glycol (miraLAX PACKET) 17 gm DAILY PO Last administered on 12/01/20at 10:21; Start 11/27/20 at 09:00 Ropinirole HCl (Requip) 1 mg BID PO Last administered on 12/01/20at 10:23; Start 11/26/20 at 21:00 Simethicone (Gas-X) 160 mg PRN Q2HRS PRN PO GAS / BLOATING; Start 11/26/20 at 12:15 Furosemide (Lasix) 40 mg 1X ONCE IVP Last administered on 11/26/20at 16:19; Start 11/26/20 at 16:00; Stop 11/26/20 at 16:01; Status DC Albuterol/ Ipratropium (Combivent Respimat 20-100 Mcg) 1 puff RTQID INH Last administered on 12/01/20at 10:21; Start 11/26/20 at 17:00 Multivitamins (Thera M Plus) 1 tab DAILY PO Last administered on 12/01/20at 10:22; Start 11/27/20 at 11:00 Ascorbic Acid (Vitamin C) 500 mg DAILY PO Last administered on 12/01/20at 10:22; Start 11/27/20 at 11:00 Metoprolol Succinate (Toprol Xl) 100 mg DAILY PO Last administered on 12/01/20at 10:23; Start 11/28/20 at 09:00 Metoprolol Succinate (Toprol Xl) 100 mg 1X ONCE PO Last administered on 11/27/20at 14:51; Start 11/27/20 at 15:00; Stop 11/27/20 at 15:01; Status DC Sodium Chloride 1,000 ml @ 75 mls/hr [id number] IV Last administered on 12/01/20at 01:41; Start 11/27/20 at 18:15 Barium Sulfate (Varibar Thin Liquid Apple) 148 gm 1X ONCE PO Last administered on 11/29/20at 13:30; Start 11/29/20 at 12:45; Stop 11/29/20 at 12:46; Status DC Dextrose (Dextrose 50%-Water Syringe) 12.5 gm PRN Q15MIN PRN IV SEE COMMENTS Last administered on 12/01/20at 10:13; Start 12/01/20 at 05:45 Active Scripts Active Dicyclomine Hcl 20 Mg Tablet 1 Tab PO TID 10 Days Reported Tramadol Hcl 50 Mg Tablet 50 Mg PO Q6HRS PRN Mylanta Maximum Strength Liq (Mag Hydrox/Aluminum Hyd/Simeth) 355 Ml Oral.susp 30 Ml PO PRN PRN Ativan (Lorazepam) 0.5 Mg Tablet 0.5 Mg PO Q8HRS PRN Ibu (Ibuprofen) 400 Mg Tablet 1 Tab PO Q6HRS PRN 5 Days NEEDED FOR PAIN Wellbutrin Xl (Bupropion Hcl) 150 Mg Tab.er.24h 150 Mg PO DAILY Artificial Tears Drops (Peg 400/Hypromellose/Glycerin) 15 Ml Drops 1 Drop OS QID 30 Days Folic Acid 0.4 Mg Tablet 0.4 Mg PO DAILY Duoneb 0.5-3(2.5) Mg/3 Ml (Albuterol/Ipratropium) 3 Ml Ampul.neb 3 Ml NEB Q4HRS Clonidine Hcl 0.2 Mg Tablet 0.2 Mg PO TID Multiple Vitamins (Multivitamin) 1 Each Tablet 1 Tab PO DAILY 30 Days Miralax (Polyethylene Glycol 3350) 17 Gm Powd.pack 1 Packet PO DAILY 2 Days dissolve in water Famotidine 20 Mg Tablet 20 Mg PO HS Zofran (Ondansetron Hcl) 4 Mg Tablet 4 Mg PO Q8HRS PRN Tears Again (Polyvinyl Alcohol) 15 Ml Drops 2 Drop EACHEYE Q4HRS 30 Days Polyvinyl Alcohol 15 Ml Drops 2 Drop EACHEYE Q4HRS 30 Days Ropinirole Hcl 1 Mg Tablet 1 Mg PO BID Magnesium Oxide 400 Mg Tablet 400 Mg PO DAILY Loratadine 10 Mg Tablet 10 Mg PO DAILY Humalog (Insulin Lispro) 100 Unit/1 Ml Vial 100 Unit SQ BIDWMEALS 70 - 150 0 units 151 - 200 0 units 201 - 250 2 units 251 - 300 3 units 301 - 349 4 units if FSBS is under 70 or 350 and over call MD [guaifenesin Syrup] 10 Ml PO Q4HRS PRN Coreg (Carvedilol) 25 Mg Tablet 50 Mg PO BIDWMEALS Peridex (Chlorhexidine Gluconate) 15 Ml Mouthwash 15 Ml PO BID 30 Days Swish in mouth for 30 seconds then spit out Calcium Carbonate 500 Mg Tablet 500 Mg PO Q4HRS Atorvastatin Calcium 10 Mg Tablet 10 Mg PO HS Acetaminophen 325 Mg Tablet 650 Mg PO Q6HRS Metformin Hcl 500 Mg Tablet 250 Mg PO BIDWMEALS Imodium A-D (Loperamide HCl) 2 Mg Capsule 2 Mg PO DAILY PRN Risperidone 0.5 Mg Tablet 2 Mg PO DAILY Risperidone 1 Mg Tablet 1 Tab PO QHS Levothyroxine Sodium 112 Mcg Tablet 1 Tab PO DAILY Advair 500-50 Diskus (Fluticasone/Salmeterol) 1 Each Disk.w.dev 1 Puff IH BID Nystatin 15 Gm Powder 1 Scott TP PRN BID PRN Clonazepam (Clonazepam) 0.5 Mg Tablet 1 Tab PO BID Gas-X (Simethicone) 80 Mg Tab.chew 160 Mg PO Q2HR PRN Gabapentin (Gabapentin) 100 Mg Capsule 100 Mg PO TID Vitals/I & O Vital Sign - Last 24 Hours 11/30/20 11/30/20 11/30/20 11/30/20 11:07 15:26 19:00 20:00 Temp 98.8 98.5 97.6 98.8 98.5 97.6 Pulse 92 92 86 Resp 18 22 18 B/P (MAP) 158/94 (115) 144/91 (108) 119/67 (84) Pulse Ox 98 96 98 O2 Delivery Nasal Cannula Nasal Cannula Nasal Cannula Nasal Cannula O2 Flow Rate 4.0 4.0 2.0 3.0 11/30/20 12/01/20 12/01/20 12/01/20 22:51 02:49 07:56 10:23 Temp 98.0 98.2 97.6 98.0 98.2 97.6 Pulse 86 86 90 90 Resp 18 18 20 B/P (MAP) 147/75 (99) 139/70 (93) 150/83 (105) 150/83 Pulse Ox 94 91 94 O2 Delivery Nasal Cannula Nasal Cannula Nasal Cannula O2 Flow Rate 2.0 2.0 2.0 Intake and Output 11/30/20 11/30/20 12/01/20 15:00 23:00 07:00 Intake Total 170 ml 50 ml Balance 170 ml 50 ml Justicifation of Admission Dx: Justifications for Admission: Justification of Admission Dx: Yes WAYNE TROY MD Dec 01, 2020 10:57
[2020-12-01 11:03] VITALS: BP 167/90
[2020-12-01 15:18] VITALS: BP 144/87
[2020-12-01 19:00] VITALS: BP 158/87
[2020-12-01] MEDS: ATORVASTATIN CALCIUM 10 MG TABLET. PO SCH (20:06)
[2020-12-01] MEDS: FAMOTIDINE 20 MG TABLET. PO SCH (20:06)
[2020-12-01 22:46] VITALS: BP 151/94
[2020-12-02 03:00] VITALS: BP 174/98
[2020-12-02] MEDS: IV 1/2 NORMAL SALINE 1,000 ML IV SCH ×2 (03:57→04:55)
[2020-12-02] MEDS: LEVOTHYROXINE 112 MCG TABLET PO SCH (05:24)
[2020-12-02 07:00] VITALS: BP 168/90
[2020-12-02] MEDS: IPRATROPIUM/ALBUTEROL 20/100mcg/INH INHALER. INH SCH ×2 (08:29→12:00)
[2020-12-02] MEDS: GABAPENTIN 100 MG CAPSULE. PO SCH ×2 (08:30→14:08)
[2020-12-02] MEDS: buPROPion XL 150 MG TAB.ER.24H. PO SCH (08:30)
[2020-12-02] MEDS: CHLORHEXIDINE 0.12% 15 ML MOUTHWASH. SWSP SCH (08:30)
[2020-12-02] MEDS: MULTIVITAMIN with MINERAL TABLET. PO SCH (08:30)
[2020-12-02] MEDS: ASCORBIC ACID 500 MG TABLET PO SCH (08:30)
[2020-12-02] MEDS: rOPINIRole 1 MG TABLET. PO SCH (08:30)
[2020-12-02] MEDS: METOPROLOL SUCC 24HR ER 100 MG TAB.ER.24H. PO SCH (08:31)
[2020-12-02] MEDS: CALCIUM CARBONATE 500 MG TABLET PO SCH (08:31)
[2020-12-02] MEDS: POLYETHYLENE GLYCOL 3350 17 GM PACKET. PO SCH (08:31)
--- NOTE | 2020-12-02 10:07 | PDOC ---
[employer] PROGRESS NOTE Date of Service DOS: DATE: 12/02/20 TIME: 10:05 Chief Complaint Chief Complaint VTE Prophylaxis Ordered VTE Prophylaxis Devices: Yes VTE Pharmacological Prophylaxi: Yes Assessment/Plan Assessment/Plan IMPRESSION ACUTE ALTERED MENTAL STATUS, SLOW TO IMPROVE acute hypoxic respiratory failure acute Metabolic encephalopathy with underlying anxiety, depression, schizoaffective disorder. PNEUMONIA Increased patchy mid and bibasilar opacities, represent atelectasis or developing consolidations. possible aspiration pneumonia Bilateral pleural effusions, left greater than right, unchanged. RECENT Fall - ct head negative, no other pain complaints, no fracture CHF s/p AICD not tolerant of BB, allergic to IZZY/ARB. 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 Encephalopathy - chronic due to schizophrenia Schizophrenia - Hypertension. Obesity COVID positive - 10/30/2020, still positive, RECOVERING acute renal injury- Suspect ATN- no improvement , UA No Micr hematuria - recent Renal Bx ordered , per nursing report IR unable to at this time cr 2.8 Supportive care , strict I/O ,avoid nephrotoxins Anemia - Hgb dropping, postmenopausal bleeding , D and C 11/20/2019, stable now Proteinuria- Nephrotic, No Micr hematuria , No WBC's or cast CKD stage 2/3 Cardiomyopathy with EF 45% s/p AICD Small to moderate left pleural effusion, unchanged. Small right pleural effusion, unchanged. Increased patchy left mid and bibasilar opacities Mild dysphasia of the oral and pharyngeal phases . No evidence of aspiration PLAN ADMIT Consult pulmonary consult nephrology IV FLUID SUPPORT // HYDRATION-HYPOTONIC SALINE pt/ot/st Secondary prevention Echo if COVID negative Ongoing lung optimization Plan outpatient ischemic evaluation FOLLOW RENAL FUNCTION OFF antibiotics Justifications for Admission Justifications for Admission Other Justification Fall, new right pleural effusion History of Present Illness History of Present Illness SEEN IN ER WITH WORSENING HYPOXIA 60 year old female coming in from nursing facility for worsening mental status and hypoxia. Per staff report she was satting in the 80s on 2.5 L nasal cannula. Patient was hospitalized at this facility for Covid 19 and intubated. Her test was + October 30. She was also seen again and discharged yesterday after a 3-day stay. baseline on 2.5 L nasal cannula Ms Mulligan is a 60 yo F w/ PMHx schizoaffective disorder, CHF with AICD in place, HLD, afib, depression with anxiety, HTN who returns to the hospital after a fall RECENTLY, D/C ON 11-23, Patient was just discharged the day prior after prolonged stay secondary to COVID-19 pneumonia (tested positive on 10/30/2020 - still positive on 11/21/20), acute respiratory failure, acute renal insufficiency, and postmenopausal bleeding s/p D&C. At baseline she feels on 3 to 4 L nasal cannula, stays in [facility]. Patient reportedly HAD ALTERED MENTAL STATUS WITH WORSENING HYPOXIA and was sent to the ER for evaluation. 12/02: Patient seen and evaluated, breathing currently at her baseline O2 requirement of 2-3 L. He is afebrile off antibiotics, without complaints today. Kidney function appears to be at baseline. She may discharge back to her nursing facility today. Greater than 30 minutes was spent managing the discharge this patient. Vitals/I&O Vitals/I&O: Vital Signs Date Time Temp Pulse Resp B/P (MAP) Pulse Ox O2 Delivery O2 Flow Rate FiO2 12/02/20 08:31 90 168/90 12/02/20 07:00 95.5 18 Nasal Cannula 3.0 95.5 12/02/20 03:00 91 I & O 12/01/20 12/01/20 12/02/20 15:00 23:00 07:00 Intake Total 290 ml 120 ml 200 ml Balance 290 ml 120 ml 200 ml Physical Exam Physical Exam: GENERAL: Alert awake on O2 by nasal cannula, in no acute distress. HEENT: Normocephalic, atraumatic, anicteric. No thrush. NECK: Supple, no JVD. LUNGS: Clear bilaterally. Decreased breath sound at the bases. HEART: S1, S2, tachycardia. ABDOMEN: Soft, bowel sounds present, nontender, nondistended. EXTREMITIES: No edema, no cyanosis. GENITOURINARY: No Hutchins. DERMATOLOGIC: Warm, dry. No generalized rash. NEUROLOGIC: Alert awake PSYCHIATRIC: Calm cooperative General: Cooperative, No acute distress Heart: Regular rate Lungs: Clear, Crackles Abdomen: Normal bowel sounds, Soft, No tenderness Extremities: No cyanosis Skin: No rashes Labs Labs: Laboratory Tests Test 12/01/20 10:08 12/01/20 11:13 12/01/20 15:58 12/01/20 18:57 Glucose (Fingerstick) 68 mg/dL (70-99) 116 mg/dL (70-99) 88 mg/dL (70-99) 91 mg/dL (70-99) Test 12/02/20 03:17 12/02/20 07:17 Glucose (Fingerstick) 103 mg/dL (70-99) 111 mg/dL (70-99) Assessment and Plan Assessmemt and Plan Problems Medical Problems: (1) COVID-19 Status: Acute (2) HCAP (healthcare-associated pneumonia) Status: Acute Comment Review of Relevant I have reviewed the following items lucas (where applicable) has been applied. Justifications for Admission General Conditions Poss Metaboilic Acidosis?: Yes Justification for admission: Patient has tachycardia (> 100 beats per minute) or hypotension (SBP < 90 mm Hg) leading to inadequate systemic perfusion as indicated by metabolic acidosis with arterial pH of less than 7.35. ALTERED MENTAL STATUS WITH HYPOXIA Other Justification Fall, new right pleural effusion STONEY TILLMAN MD Dec 02, 2020 10:07
--- NOTE | 2020-12-02 10:17 | PDOC3 ---
Discharge Summary Visit Information Date of Admission: Dec 02, 2020 Date of Discharge: Nov 25, 2020 Final Diagnosis Problems Medical Problems: (1) COVID-19 Status: Acute (2) HCAP (healthcare-associated pneumonia) Status: Acute Brief Hospital Course Allergies Allergies Coded Allergies Type Severity Reaction Last Updated Verified lactose Allergy Intermediate 02/25/16 Yes lisinopril Allergy Intermediate 08/08/15 Yes Vital Signs Vital Signs Date Time Temp Pulse Resp B/P (MAP) Pulse Ox O2 Delivery O2 Flow Rate FiO2 12/02/20 08:31 90 168/90 12/02/20 07:00 95.5 18 Nasal Cannula 3.0 95.5 12/02/20 03:00 91 Lab Results Laboratory Tests Test 11/30/20 11:34 11/30/20 16:35 11/30/20 19:02 12/01/20 04:00 Glucose (Fingerstick) 106 mg/dL (70-99) 75 mg/dL (70-99) 86 mg/dL (70-99) Sodium Level 142 mmol/L (136-145) Potassium Level 4.4 mmol/L (3.5-5.1) Chloride Level 104 mmol/L (98-107) Carbon Dioxide Level 32 mmol/L (21-32) Anion Gap 6 (6-14) Blood Urea Nitrogen 23 mg/dL (7-20) Creatinine 2.8 mg/dL (0.6-1.0) Estimated GFR (Cockcroft-Gault) 20.9 Glucose Level 57 mg/dL (70-99) Calcium Level 7.6 mg/dL (8.5-10.1) Phosphorus Level 4.6 mg/dL (2.6-4.7) Albumin 1.9 g/dL (3.4-5.0) Test 12/01/20 06:13 12/01/20 07:03 12/01/20 10:08 12/01/20 11:13 Glucose (Fingerstick) 100 mg/dL (70-99) 81 mg/dL (70-99) 68 mg/dL (70-99) 116 mg/dL (70-99) Test 12/01/20 15:58 12/01/20 18:57 12/02/20 03:17 12/02/20 07:17 Glucose (Fingerstick) 88 mg/dL (70-99) 91 mg/dL (70-99) 103 mg/dL (70-99) 111 mg/dL (70-99) Laboratory Tests Test 12/01/20 11:13 12/01/20 15:58 12/01/20 18:57 12/02/20 03:17 Glucose (Fingerstick) 116 mg/dL (70-99) 88 mg/dL (70-99) 91 mg/dL (70-99) 103 mg/dL (70-99) Test 12/02/20 07:17 Glucose (Fingerstick) 111 mg/dL (70-99) Brief Hospital Course Ms. Mulligan is a 60 old female who presented with altered mental status, JACKIE. Consultation was placed to nephrology and ID. Her kidney function improved with IV hydration and she was treated with supportive care. Patient is COVID-19 recovered, on her baseline 2-3 L O2.. She was deemed COVID-19 recovered and stable for discharge back to her nursing facility. Discharge Information Scheduled Acetaminophen (Acetaminophen) 325 Mg Tablet, 650 MG PO Q6HRS for pain/temp, (Reported) Entered as Reported by: ELYSSA BOOTH on 12/02/19224 Last Action: Continued on 11/26/201214 by WAYNE TROY MD Atorvastatin Calcium (Atorvastatin Calcium) 10 Mg Tablet, 10 MG PO HS for FOR CHOLESTEROL, #30 Ref 0 (Reported) Entered as Reported by: ELYSSA BOOTH on 12/02/19225 Last Action: Continued on 11/26/201214 by WAYNE TROY MD Bupropion Hcl (Wellbutrin Xl) 150 Mg Tab.er.24h, 150 MG PO DAILY for major depressive disorder, (Reported) Entered as Reported by: DAVIE BERRIOS on 10/31/20 0510 Last Action: Continued on 11/26/201214 by WAYNE TROY MD Calcium Carbonate (Calcium Carbonate) 500 Mg Tablet, 500 MG PO Q4HRS for Heartburn, (Reported) Entered as Reported by: ELYSSA BOOTH on 12/02/19227 Last Action: Continued on 11/26/201214 by WAYNE TROY MD Carvedilol (Coreg) 25 Mg Tablet, 50 MG PO BIDWMEALS for CARDIAC, (Reported) Entered as Reported by: ELYSSA BOOTH on 12/02/19 0236 Last Action: Reviewed on 11/26/20811 by FREDI HAGAN RN Chlorhexidine Gluconate (Peridex) 15 Ml Mouthwash, 15 ML PO BID for Erosion of Teeth for 30 Days, #946 Ref 0 (Reported) Swish in mouth for 30 seconds then spit out Entered as Reported by: ELYSSA BOOTH on 12/02/19 0234 Last Action: Continued on 11/26/201214 by WAYNE TROY MD Clonazepam (Clonazepam ) 0.5 Mg Tablet, 1 TAB PO BID, #60 Ref 1 (Reported) Entered as Reported by: Fozia Yoon on 09/30/16 0645 Last Action: HELD on 11/26/201213 by WAYNE TROY MD Clonidine Hcl (Clonidine Hcl) 0.2 Mg Tablet, 0.2 MG PO TID for related to heart failure, (Reported) Entered as Reported by: DAVIE BERRIOS on 10/31/20509 Last Action: HELD on 11/26/201214 by WAYNE TROY MD Dicyclomine Hcl (Dicyclomine Hcl) 20 Mg Tablet, 1 TAB PO TID for diarrhea for 10 Days, #30 Ref 1 Prescribed by: MARY ELLEN FREEMAN MD on 10/28/202029 Last Action: HELD on 11/26/20 0950 by MARITZA CHIRINOS Famotidine (Famotidine) 20 Mg Tablet, 20 MG PO HS for gerd, (Reported) Entered as Reported by: DAVIE BERRIOS on 10/31/20 05 Last Action: Continued on 11/26/201214 by WAYNE TROY MD Fluticasone/Salmeterol (Advair 500-50 Diskus) 1 Each Disk.w.dev, 1 PUFF IH BID, #1 Ref 5 (Reported) Entered as Reported by: MARITZA SPIVEY on 03/21/18 0803 Last Action: Reviewed on 11/26/20811 by FREDI HAGAN RN Folic Acid (Folic Acid) 0.4 Mg Tablet, 0.4 MG PO DAILY for SUPPLEMENT, (Reported) Entered as Reported by: DAVIE BERRIOS on 10/31/20509 Last Action: Reviewed on 11/26/20811 by FREDI HAGAN RN Gabapentin (Gabapentin ) 100 Mg Capsule, 100 MG PO TID for pain, (Reported) Entered as Reported by: ODIN RALPH on 02/18/16 1101 Last Action: Continued on 11/26/201213 by WAYNE TROY MD Insulin Lispro (Humalog) 100 Unit/1 Ml Vial, 100 UNIT SQ BIDWMEALS for hyperglycemia, (Reported) 70 - 150 0 units 151 - 200 0 units 201 - 250 2 units 251 - 300 3 units 301 - 349 4 units if FSBS is under 70 or 350 and over call MD Entered as Reported by: ELYSSA BOOTH on 12/02/19 0257 Last Action: HELD on 11/26/201214 by WAYNE TROY MD Ipratropium/Albuterol Sulfate (Duoneb 0.5-3(2.5) Mg/3 Ml) 3 Ml Ampul.neb, 3 ML NEB Q4HRS for sob, (Reported) Entered as Reported by: DAVIE BERRIOS on 10/31/20 0510 Last Action: Continued on 11/26/201214 by WAYNE TROY MD Levothyroxine Sodium (Levothyroxine Sodium) 112 Mcg Tablet, 1 TAB PO DAILY, #30 Ref 5 (Reported) Entered as Reported by: MARITZA SPIVEY on 03/21/18 0803 Last Action: Continued on 11/26/201213 by WAYNE TROY MD Loratadine (Loratadine) 10 Mg Tablet, 10 MG PO DAILY for Allergic Rhinitis, (Reported) Entered as Reported by: ELYSSA BOOTH on 12/02/19 030 Last Action: HELD on 11/26/201214 by WAYNE TROY MD Magnesium Oxide (Magnesium Oxide) 400 Mg Tablet, 400 MG PO DAILY for Supplement, (Reported) Entered as Reported by: ELYSSA BOOTH on 12/02/19 030 Last Action: Reviewed on 11/26/20811 by FREDI HAGAN RN Metformin Hcl (Metformin Hcl) 500 Mg Tablet, 250 MG PO BIDWMEALS for ANTI- DIABETIC, Ref 0 (Reported) Entered as Reported by: SAMIRA GONZALES on 12/03/182228 Last Action: HELD on 11/26/201213 by WAYNE TROY MD Multivitamin (Multiple Vitamins) 1 Each Tablet, 1 TAB PO DAILY for deficiency of other vitamins for 30 Days, #30 Ref 0 (Reported) Entered as Reported by: DAVIE BERRIOS on 10/31/20509 Last Action: Reviewed on 11/26/20811 by FREDI HAGAN RN Peg 400/Hypromellose/Glycerin (Artificial Tears Drops) 15 Ml Drops, 1 DROP OS QID for irritation for 30 Days, #15 Ref 0 (Reported) Entered as Reported by: DAVIE BERRIOS on 10/31/20509 Last Action: Reviewed on 11/26/20811 by FREDI HAGAN RN Polyethylene Glycol 3350 (Miralax) 17 Gm Powd.pack, 1 PACKET PO DAILY for constipation for 2 Days, #2 Ref 0 (Reported) dissolve in water Entered as Reported by: DAVIE BERRIOS on 10/31/20509 Last Action: Continued on 11/26/201214 by WAYNE TROY MD Polyvinyl Alcohol (Polyvinyl Alcohol) 15 Ml Drops, 2 DROP EACHEYE Q4HRS for dry eyes for 30 Days, #15 Ref 0 (Reported) Entered as Reported by: ELYSSA BOOTH on 12/02/19 0320 Polyvinyl Alcohol (Tears Again) 15 Ml Drops, 2 DROP EACHEYE Q4HRS for Dry Eyes for 30 Days, #15 Ref 0 (Reported) Entered as Reported by: ELYSSA BOOTH on 12/02/19 0322 Last Action: Reviewed on 11/26/20811 by FREDI HAGAN RN Risperidone (Risperidone) 0.5 Mg Tablet, 2 MG PO DAILY, (Reported) Entered as Reported by: MARITZA SPIVEY on 03/21/18 0803 Last Action: Edited on 11/26/20811 by FREDI HAGAN RN Ropinirole Hcl (Ropinirole Hcl) 1 Mg Tablet, 1 MG PO BID for restless leg , (Reported) Entered as Reported by: ELYSSA BOOTH on 12/02/19 0317 Last Action: Continued on 11/26/201214 by WAYNE TROY MD Scheduled PRN Ibuprofen (Ibu) 400 Mg Tablet, 1 TAB PO Q6HRS PRN for PAIN for 5 Days, #20 Ref 0 (Reported) NEEDED FOR PAIN Entered as Reported by: FREDI HAGAN RN on 11/26/2014 Last Action: HELD on 11/26/201214 by WAYNE TROY MD Loperamide HCl (Imodium A-D) 2 Mg Capsule, 2 MG PO DAILY PRN for DIARRHEA, (Reported) Entered as Reported by: SAMIRA GONZALES on 12/03/182228 Last Action: HELD on 11/26/201213 by WAYNE TROY MD Lorazepam (Ativan) 0.5 Mg Tablet, 0.5 MG PO Q8HRS PRN for ANXIETY, (Reported) Entered as Reported by: FREDI AHGAN RN on 11/26/20819 Last Action: HELD on 11/26/201214 by WAYNE TROY MD Mag Hydrox/Aluminum Hyd/Simeth (Mylanta Maximum Strength Liq) 355 Ml Oral.susp, 30 ML PO PRN PRN for UPSET STOMACH, (Reported) Entered as Reported by: FREDI HAGAN RN on 11/26/20819 Last Action: HELD on 11/26/201214 by WAYNE TROY MD Nystatin (Nystatin) 15 Gm Powder, 1 TRAMAINE TP PRN BID PRN for RASH, #1 (Reported) Entered as Reported by: MARITZA SPIVEY on 03/21/18 0803 Last Action: Continued on 11/26/201213 by WAYNE TROY MD Ondansetron Hcl (Zofran) 4 Mg Tablet, 4 MG PO Q8HRS PRN for NAUSEA/VOMITING, (Reported) Entered as Reported by: ELYSSA BOOTH on 12/02/19 0324 Last Action: Reviewed on 11/26/20811 by FREDI HAGAN RN Simethicone (Gas-X) 80 Mg Tab.chew, 160 MG PO Q2HR PRN for GAS / BLOATING, (Reported) Entered as Reported by: ODIN RALPH on 02/18/16 1101 Last Action: Continued on 11/26/201213 by WAYNE TROY MD Tramadol Hcl (Tramadol Hcl) 50 Mg Tablet, 50 MG PO Q6HRS PRN for PAIN, (Reported) Entered as Reported by: FREDI HAGAN RN on 11/26/20819 Last Action: HELD on 11/26/201214 by WAYNE TROY MD [guaifenesin Syrup] , 10 ML PO Q4HRS PRN for COUGH, (Reported) Entered as Reported by: ELYSSA BOOTH on 12/02/19 0247 Last Action: Reviewed on 11/26/20 0812 by FREDI HAGAN, ANDREI Discontinued Medications Diphenoxylate Hcl/Atropine (Lomotil Tablet) 1 Each Tablet, 1 TAB PO TID for diarrhea for 3 Days, #9 Discontinued Reason: not taking Prescribed by: MARY ELLEN FREEMAN MD on 10/28/202029 Last Action: Discontinued on 11/26/20 0950 by MARITZA CHIRINOS Risperidone (Risperidone) 1 Mg Tablet, 1 TAB PO QHS, #30 Ref 1 (Reported) Entered as Reported by: MARITZA SPIVEY on 03/21/18 0803 Last Action: HELD on 11/26/20 1214 by WAYNE TROY MD Justicifation of Admission Dx: Justifications for Admission: Justification of Admission Dx: Yes STONEY TILLMAN MD Dec 02, 2020 10:17
[2020-12-02] MEDS: ENOXAPARIN 30 MG/0.3 ML SYRINGE. SQ SCH (10:23)
[2020-12-02 10:27] VITALS: BP 153/81
--- NOTE | 2020-12-02 10:44 | PDOC ---
Infectious Disease Note Subjective: Subjective Patient says feels better Eager for discharge home today Denies any fever, nausea, vomiting, diarrhea, abdominal Vital Signs: Vital Signs Vital Signs Date Time Temp Pulse Resp B/P (MAP) Pulse Ox O2 Delivery O2 Flow Rate FiO2 12/02/20 10:27 96.9 95 18 153/81 (105) 95 Nasal Cannula 3.0 96.9 Physical Exam: PHYSICAL EXAM GENERAL: Alert awake on O2 by nasal cannula, in no acute distress. HEENT: Normocephalic, atraumatic, anicteric. No thrush. NECK: Supple, no JVD. LUNGS: Clear bilaterally. Decreased breath sound at the bases. HEART: S1, S2, tachycardia. ABDOMEN: Soft, bowel sounds present, nontender, nondistended. EXTREMITIES: No edema, no cyanosis. GENITOURINARY: No Hutchins. DERMATOLOGIC: Warm, dry. No generalized rash. NEUROLOGIC: Alert awake PSYCHIATRIC: Calm cooperative Medications: Inpatient Meds: Current Medications Medications (Trade) Dose Ordered Sig/Eber Start Time Stop Time Status Last Admin Dose Admin Acetaminophen (Tylenol Supp) 650 mg PRN Q4HRS PRN 11/26/20 10:30 Acetaminophen (Tylenol) 650 mg Q6HRS 11/26/20 18:00 UNV Albuterol Sulfate (Ventolin Neb Soln) 2.5 mg PRN Q4HRS PRN 11/26/20 10:30 Albuterol/ Ipratropium (Combivent Respimat 20-100 Mcg) 1 puff RTQID 11/26/20 17:00 12/02/20 08:29 1 PUFF Albuterol/ Ipratropium (Duoneb) 3 ml Q4HRS 11/26/20 16:00 11/26/20 16:29 DC Ascorbic Acid (Vitamin C) 500 mg DAILY 11/27/20 11:00 12/02/20 08:30 500 MG Atorvastatin Calcium (Lipitor) 10 mg HS 11/26/20 21:00 12/01/20 20:06 10 MG Azithromycin 250 ml @ 250 mls/hr 1X ONCE 11/25/20 23:15 11/25/20 23:25 DC Barium Sulfate (Varibar Thin Liquid Apple) 148 gm 1X ONCE 11/29/20 12:45 11/29/20 12:46 DC 11/29/20 13:30 148 GM Bupropion HCl (Wellbutrin Xl) 150 mg DAILY 11/27/20 09:00 12/02/20 08:30 150 MG Calcium Carbonate/ Glycine (Oscal) 500 mg DAILY 11/27/20 09:00 12/02/20 08:31 500 MG Ceftriaxone Sodium (Rocephin) 1 gm 1X ONCE 11/25/20 23:15 11/25/20 23:25 DC Chlorhexidine Gluconate (Peridex) 15 ml BID 11/26/20 21:00 12/02/20 08:30 15 ML Dexamethasone Sodium Phosphate (Decadron) 10 mg 1X ONCE 11/25/20 23:15 11/25/20 23:16 DC 11/25/20 23:54 10 MG Dextrose (Dextrose 50%-Water Syringe) 12.5 gm PRN Q15MIN PRN 12/01/20 05:45 12/01/20 10:13 12.5 GM Docusate Sodium (Colace) 100 mg PRN BID PRN 11/26/20 10:30 Enoxaparin Sodium (Lovenox 30mg Syringe) 30 mg Q24H 11/26/20 11:00 12/02/20 10:23 30 MG Famotidine (Pepcid) 20 mg HS 11/26/20 21:00 12/01/20 20:06 20 MG Furosemide (Lasix) 40 mg 1X ONCE 11/26/20 16:00 11/26/20 16:01 DC 11/26/20 16:19 40 MG Gabapentin (Neurontin) 100 mg TID 11/26/20 14:00 12/02/20 08:30 100 MG Guaifenesin (Robitussin) 200 mg PRN Q4HRS PRN 11/26/20 10:30 Levothyroxine Sodium (Synthroid) 112 mcg DAILY06 11/27/20 06:00 12/02/20 05:24 112 MCG Metoprolol Succinate (Toprol Xl) 100 mg 1X ONCE 11/27/20 15:00 11/27/20 15:01 DC 11/27/20 14:51 100 MG Multivitamins (Thera M Plus) 1 tab DAILY 11/27/20 11:00 12/02/20 08:30 1 TAB Nystatin (Nystop) 1 luis PRN BID PRN 11/26/20 12:15 1/15/21 08:36 1 LUIS Ondansetron HCl (Zofran) 4 mg PRN Q4HRS PRN 11/26/20 10:30 Piperacillin Sod/ Tazobactam Sod 2.25 gm/Sodium Chloride 50 ml @ 100 mls/hr 1X ONCE 11/25/20 23:30 11/25/20 23:59 DC 11/25/20 23:30 100 MLS/HR Polyethylene Glycol (miraLAX PACKET) 17 gm DAILY 11/27/20 09:00 12/02/20 08:31 17 GM Ropinirole HCl (Requip) 1 mg BID 11/26/20 21:00 12/02/20 08:30 1 MG Simethicone (Gas-X) 160 mg PRN Q2HRS PRN 11/26/20 12:15 Sodium Monofluorophosphate (Fleet Adult) 133 ml PRN DAILY PRN 11/26/20 10:30 Sodium Chloride 1,000 ml @ 75 mls/hr [id number] 11/27/20 18:15 12/02/20 03:57 75 MLS/HR Sodium Chloride (Normal Saline Flush) 3 ml QSHIFT PRN 11/26/20 10:30 Vancomycin HCl 1.25 gm/Sodium Chloride 250 ml @ 250 mls/hr 1X ONCE 11/25/20 23:30 11/26/20 00:29 DC 11/26/20 00:38 250 MLS/HR Labs: Lab Laboratory Tests Test 12/01/20 11:13 12/01/20 15:58 12/01/20 18:57 12/02/20 03:17 Glucose (Fingerstick) 116 mg/dL (70-99) 88 mg/dL (70-99) 91 mg/dL (70-99) 103 mg/dL (70-99) Test 12/02/20 07:17 Glucose (Fingerstick) 111 mg/dL (70-99) Objective: Assessment: 1. COVID-19 infection with history of COVID-19 with acute respiratory failure in 10/2020. Repeat COVID test positive has been noted in the patient's for a couple of weeks after the initial infection. 2. Encephalopathy, likely metabolic with underlying schizoaffective disorder, anxiety and depression. 3. Acute on chronic congestive heart failure, compensated. 4. Mild troponin elevation. 5. Cardiomyopathy, status post automatic implantable cardioverter-defibrillator. 6. Paroxysmal atrial fibrillation. 7. Diabetes mellitus. 8. Acute kidney injury on chronic kidney disease. 9. Hypothyroidism. 10. Hypertension/hyperlipidemia. 11. Thrombocytopenia. Plan: Plan of Care 1. COVID-19 remains positive in some patients for weeks after initial infection. Patient's respiratory status remained stable 2. Maintain aspiration precaution. 3. Monitor off antibiotics. 4. Okay to DC from ID standpoint Discussed with nursing staff. CARRIE AMOS MD Dec 02, 2020 10:44
[2020-12-02 10:59] LABS: CALCIUM 8.1 mg/dL (8.5-10.1); CREATININE 2.6 mg/dL (0.6-1.0); GFR 22.8; PHOSPHORUS 4.2 mg/dL (2.6-4.7); POTASSIUM 4.6 mmol/L (3.5-5.1)
--- NOTE | 2020-12-02 11:48 | PDOC ---
DATE OF SERVICE DATE: 12/02/20 TIME: 11:48 SUBJECTIVE ROS Propped up in bed, states feeling better OBJECTIVE Vital Signs Vital Signs Date Time Temp Pulse Resp B/P (MAP) Pulse Ox O2 Delivery O2 Flow Rate FiO2 12/02/20 10:27 96.9 95 18 153/81 (105) 95 Nasal Cannula 3.0 96.9 I & 0 Intake and Output 12/02/20 07:00 Intake Total 610 ml Balance 610 ml Intake Oral 610 ml # Voids 4 PHYSICAL EXAM Physical Exam GENERAL: NAD HEENT: OM moist NECK: Supple, LUNGS: Clear bilaterally. Decreased breath sound at the bases. HEART: S1, S2, ABDOMEN: Soft, bowel sounds present, nontender, nondistended. EXTREMITIES: No edema, no cyanosis. GENITOURINARY: No Hutchins. DERMATOLOGIC: Warm, dry. No generalized rash. NEUROLOGIC: Alert awake PSYCHIATRIC: Calm cooperative DIAGNOSIS/ASSESSMENT Assessment & Plan JACKIE-ATN , improving down to 2.6 from 3.2 UA No Micr hematuria , ordered Renal Bx at recent hospitalization , IR recommended as OP after holding ASA for 5-7 days Supportive care , strict I/O ,avoid nephrotoxins Anemia - Hgb dropping, postmenopausal bleeding , D and C today Proteinuria- Nephrotic, No Micr hematuria , No WBC's or cast CKD stage 2/3 CHF compensated / CM with EF 45% COVID Positive Acute hypoxemic hypercapnic respiratory failure- extubated Blood cultures positive AICD in UTI HyperNatremia - resolved CKD stage 2 to 3 A Recent COVID 19 PNA with Ac Resp failure CM with EF OF 45% and AICD P AFIB DM II HTN COMMENT/RELEVANT DATA Meds Current Medications Medications (Trade) Dose Ordered Sig/Eber Start Time Stop Time Status Last Admin Dose Admin Acetaminophen (Tylenol Supp) 650 mg PRN Q4HRS PRN 11/26/20 10:30 Acetaminophen (Tylenol) 650 mg Q6HRS 11/26/20 18:00 UNV Albuterol Sulfate (Ventolin Neb Soln) 2.5 mg PRN Q4HRS PRN 11/26/20 10:30 Albuterol/ Ipratropium (Combivent Respimat 20-100 Mcg) 1 puff RTQID 11/26/20 17:00 12/02/20 08:29 1 PUFF Albuterol/ Ipratropium (Duoneb) 3 ml Q4HRS 11/26/20 16:00 11/26/20 16:29 DC Ascorbic Acid (Vitamin C) 500 mg DAILY 11/27/20 11:00 12/02/20 08:30 500 MG Atorvastatin Calcium (Lipitor) 10 mg HS 11/26/20 21:00 12/01/20 20:06 10 MG Azithromycin 250 ml @ 250 mls/hr 1X ONCE 11/25/20 23:15 11/25/20 23:25 DC Barium Sulfate (Varibar Thin Liquid Apple) 148 gm 1X ONCE 11/29/20 12:45 11/29/20 12:46 DC 11/29/20 13:30 148 GM Bupropion HCl (Wellbutrin Xl) 150 mg DAILY 11/27/20 09:00 12/02/20 08:30 150 MG Calcium Carbonate/ Glycine (Oscal) 500 mg DAILY 11/27/20 09:00 12/02/20 08:31 500 MG Ceftriaxone Sodium (Rocephin) 1 gm 1X ONCE 11/25/20 23:15 11/25/20 23:25 DC Chlorhexidine Gluconate (Peridex) 15 ml BID 11/26/20 21:00 12/02/20 08:30 15 ML Dexamethasone Sodium Phosphate (Decadron) 10 mg 1X ONCE 11/25/20 23:15 11/25/20 23:16 DC 11/25/20 23:54 10 MG Dextrose (Dextrose 50%-Water Syringe) 12.5 gm PRN Q15MIN PRN 12/01/20 05:45 12/01/20 10:13 12.5 GM Docusate Sodium (Colace) 100 mg PRN BID PRN 11/26/20 10:30 Enoxaparin Sodium (Lovenox 30mg Syringe) 30 mg Q24H 11/26/20 11:00 12/02/20 10:23 30 MG Famotidine (Pepcid) 20 mg HS 11/26/20 21:00 12/01/20 20:06 20 MG Furosemide (Lasix) 40 mg 1X ONCE 11/26/20 16:00 11/26/20 16:01 DC 11/26/20 16:19 40 MG Gabapentin (Neurontin) 100 mg TID 11/26/20 14:00 12/02/20 08:30 100 MG Guaifenesin (Robitussin) 200 mg PRN Q4HRS PRN 11/26/20 10:30 Levothyroxine Sodium (Synthroid) 112 mcg DAILY06 11/27/20 06:00 12/02/20 05:24 112 MCG Metoprolol Succinate (Toprol Xl) 100 mg 1X ONCE 11/27/20 15:00 11/27/20 15:01 DC 11/27/20 14:51 100 MG Multivitamins (Thera M Plus) 1 tab DAILY 11/27/20 11:00 12/02/20 08:30 1 TAB Nystatin (Nystop) 1 luis PRN BID PRN 11/26/20 12:15 11/29/20 08:36 1 LUIS Ondansetron HCl (Zofran) 4 mg PRN Q4HRS PRN 11/26/20 10:30 Piperacillin Sod/ Tazobactam Sod 2.25 gm/Sodium Chloride 50 ml @ 100 mls/hr 1X ONCE 11/25/20 23:30 11/25/20 23:59 DC 11/25/20 23:30 100 MLS/HR Polyethylene Glycol (miraLAX PACKET) 17 gm DAILY 11/27/20 09:00 12/02/20 08:31 17 GM Ropinirole HCl (Requip) 1 mg BID 11/26/20 21:00 12/02/20 08:30 1 MG Simethicone (Gas-X) 160 mg PRN Q2HRS PRN 11/26/20 12:15 Sodium Monofluorophosphate (Fleet Adult) 133 ml PRN DAILY PRN 11/26/20 10:30 Sodium Chloride 1,000 ml @ 75 mls/hr [id number] 11/27/20 18:15 12/02/20 03:57 75 MLS/HR Sodium Chloride (Normal Saline Flush) 3 ml QSHIFT PRN 11/26/20 10:30 Vancomycin HCl 1.25 gm/Sodium Chloride 250 ml @ 250 mls/hr 1X ONCE 11/25/20 23:30 11/26/20 00:29 DC 11/26/20 00:38 250 MLS/HR Lab Laboratory Tests Test 12/01/20 15:58 12/01/20 18:57 12/02/20 03:17 12/02/20 07:17 Glucose (Fingerstick) 88 mg/dL (70-99) 91 mg/dL (70-99) 103 mg/dL (70-99) 111 mg/dL (70-99) Test 12/02/20 10:10 12/02/20 11:01 Sodium Level 138 mmol/L (136-145) Potassium Level 4.6 mmol/L (3.5-5.1) Chloride Level 102 mmol/L (98-107) Carbon Dioxide Level 29 mmol/L (21-32) Anion Gap 7 (6-14) Blood Urea Nitrogen 23 mg/dL (7-20) Creatinine 2.6 mg/dL (0.6-1.0) Estimated GFR (Cockcroft-Gault) 22.8 Glucose Level 122 mg/dL (70-99) Calcium Level 8.1 mg/dL (8.5-10.1) Phosphorus Level 4.2 mg/dL (2.6-4.7) Albumin 2.0 g/dL (3.4-5.0) Glucose (Fingerstick) 100 mg/dL (70-99) Results All relevant outside records, renal labs, imaging studies, telemetry/EKG's were reviewed. Justicifation of Admission Dx: Justifications for Admission: Justification of Admission Dx: Yes SARAHI SORENSEN MD Dec 02, 2020 11:48
--- NOTE | 2020-12-02 12:08 | NUR ---
SW following for discharge planning. Spoke with RN and reviewed chart. SW faxed updated clinicals and discharge orders to [facility]. WC transport with 02 arranged by [facility] for 1430. Packet of clinicals ready to be sent with pt. RN to call report. No further SW needs at this time.
--- NOTE | 2020-12-02 15:17 | NUR ---
Pt was told discharge instructions, and was given a packet. Took IV out, unhooked pt from heart monitor. Pt's labs and vital signs were WNL. Pt was stable when leaving unit.
== END 2020-12-02 15:00 | DRG 177 ==
LOC: ER 20:28 → ED HOLD 23:30 → 6 SOUTH 11-26 14:30
PROVIDERS: ADMIT Family Medicine; ATTEND Family Medicine
DX: J69.0 Pneumonitis due to inhalation of food and vomit (principal); N17.0 Acute kidney failure with tubular necrosis; G93.41 Metabolic encephalopathy; I50.23 Acute on chronic systolic (congestive) heart failure; J96.01 Acute respiratory failure with hypoxia; I13.0 Hypertensive heart and chronic kidney disease with heart failure and stage 1 through stage 4 chronic kidney disease, or unspecified chronic kidney disease; I42.9 Cardiomyopathy, unspecified; E87.0 Hyperosmolality and hypernatremia; J44.0 Chronic obstructive pulmonary disease with (acute) lower respiratory infection; J98.11 Atelectasis; Z95.810 Presence of automatic (implantable) cardiac defibrillator; E11.42 Type 2 diabetes mellitus with diabetic polyneuropathy; E11.22 Type 2 diabetes mellitus with diabetic chronic kidney disease; I48.0 Paroxysmal atrial fibrillation; D69.6 Thrombocytopenia, unspecified; E03.9 Hypothyroidism, unspecified; F41.9 Anxiety disorder, unspecified; E78.00 Pure hypercholesterolemia, unspecified; K21.9 Gastro-esophageal reflux disease without esophagitis; F25.9 Schizoaffective disorder, unspecified; G25.81 Restless legs syndrome; E78.5 Hyperlipidemia, unspecified; N18.30 Chronic kidney disease, stage 3 unspecified; K59.00 Constipation, unspecified; F41.8 Other specified anxiety disorders; M19.90 Unspecified osteoarthritis, unspecified site; D64.9 Anemia, unspecified; E11.65 Type 2 diabetes mellitus with hyperglycemia; F32.9 Major depressive disorder, single episode, unspecified; K03.2 Erosion of teeth; N95.0 Postmenopausal bleeding; R47.02 Dysphasia; Y95 Nosocomial condition; E66.9 Obesity, unspecified; Z68.31 Body mass index [BMI] 31.0-31.9, adult; Z87.891 Personal history of nicotine dependence; Z87.440 Personal history of urinary (tract) infections; Z79.899 Other long term (current) drug therapy; Z86.718 Personal history of other venous thrombosis and embolism; Z79.51 Long term (current) use of inhaled steroids; Z79.4 Long term (current) use of insulin; Z88.8 Allergy status to other drugs, medicaments and biological substances; Z86.16 Personal history of COVID-19
CPT/HCPCS: 36415; 71045; 74230; 80048; 80053; 80069; 81001; 82550; 82962; 83605; 83735; 83874; 83880; 84443; 84484; 84550; 85007; 85025; 87040; 93005; 96361; 96365; 96375; J1100; J1650; J1940; J2543; J3370; J3490; J7030; J7050; 92610-GN; 92611-GN; 97110-GO; 97530-GO; 97530-GP; 97535-GO; 99285-25; G0378

== ENCOUNTER 2020-12-03 14:07 | Inpatient (IN) | payer MEDICAID ==
[~2020-12-03] VITALS: Ht 154.9 cm; Wt 89.0 kg
[~2020-12-03 14:07] MED LIST changes: +IBUP400T99 PO; +MAG-115 PO
[2020-12-03 14:39] LABS: BASO # 0.1 x10^3/uL (0.0-0.2); BASO % 1 % (0-3); EOS # 0.2 x10^3/uL (0.0-0.7); EOS % 2 % (0-3); HEMATOCRIT 25.3 % (36.0-47.0); HEMOGLOBIN 7.9 g/dL (12.0-15.5); LYMPH # 2.1 x10^3/uL (1.0-4.8); LYMPH % 21 % (24-48); MEAN CORPUSCULAR HEMOGLOBIN 30 pg (25-35); MEAN CORPUSCULAR HGB CONC 31 g/dL (31-37); MEAN CORPUSCULAR VOLUME 97 fL (79-100); MONO # 0.9 x10^3/uL (0.0-1.1); MONO % 9 % (0-9); NEUT # 6.8 x10^3/uL (1.8-7.7); NEUT % 67 % (31-73); PLATELET COUNT 168 x10^3/uL (140-400); RED CELL DISTRIBUTION WIDTH 18.8 % (11.5-14.5); WHITE BLOOD COUNT 10.1 x10^3/uL (4.0-11.0)
[2020-12-03 14:40] LABS: BILIRUBIN,URINE NEGATIVE (NEG); CLARITY,URINE CLEAR; COLOR,URINE YELLOW; NITRITE,URINE NEGATIVE (NEG); PH,URINE 6.5 (<5.0-8.0); PROTEIN,URINE >=300 mg/dL (NEG-TRACE); UROBILINOGEN,URINE 0.2 mg/dL (0.2 mg/dL)
[2020-12-03] MEDS ORDERED: IV NORMAL SALINE 1000ML BAG 1,000 ML IV ONE (14:45)
[2020-12-03 14:47] LABS: CALCIUM 8.4 mg/dL (8.5-10.1); CREATININE 2.9 mg/dL (0.6-1.0); GFR 20.1; POTASSIUM 4.8 mmol/L (3.5-5.1)
--- NOTE | 2020-12-03 14:51 | RAD ---
XR CHEST 1V History: Reason: sob / Spl. Instructions: / History: Comparison: November 30, 2020 Findings: Small bilateral pleural effusions, unchanged. Patchy bibasilar opacities, unchanged. Patchy left mid lung opacities, unchanged. Left-sided pacemaker, unchanged. Unchanged heart size. No pneumothorax. Impression: 1. Small bilateral pleural effusions with adjacent opacities, unchanged. Electronically signed by: Wilfredo Nagel DO (12/03/2020 2:49 PM) [id number]
[2020-12-03 14:52] LABS: ALBUMIN 2.1 g/dL (3.4-5.0); ALBUMIN/GLOBULIN RATIO 0.5 (1.0-1.7); TOTAL BILIRUBIN 0.3 mg/dL (0.2-1.0); TOTAL PROTEIN 6.6 g/dL (6.4-8.2)
[2020-12-03 14:59] LABS: BACTERIA,URINE 0 /HPF (0-FEW); RBC,URINE OCC /HPF (0-2)
[2020-12-03 14:59] LABS: BASE EXCESS ABG 1 mmol/L (-3-3); HCO3 ABG 28 mmol/L (21-28); PCO2 ABG 56 mmHg (35-46); PO2 ABG 74 mmHg (65-108); SAT O2 ABG 92 % (92-99)
[2020-12-03 15:00] LABS: HYALINE CASTS, URINE MODERATE /HPF
[2020-12-03 15:01] LABS: FIO2 ABG 28/2LNC
--- NOTE | 2020-12-03 16:04 | RAD ---
INDICATION: Reason: AMS / Spl. Instructions: / History: COMPARISON: November 21, 2020 TECHNIQUE: Axial CT images obtained through the head without intravenous contrast. One or more of the following individualized dose reduction techniques were utilized for this examinat ion: 1. Automated exposure control; 2. Adjustment of the mA and/or kV according to patient size; 3 . Use of iterative reconstruction technique. FINDINGS: No intracranial hemorrhage. No midline shift. Basal cisterns patents. Ventricles and sulci are globally prominent. No acute osseous abnormality. Mild mucosal thickening right frontal sinus. Scattered foci of low attenuation within the white matter. Basal ganglia calcifications again seen. IMPRESSION: 1. No acute intracranial hemorrhage. 2. Scattered regions of low attenuation within the white matter. Non-specific in nature but frequen tly secondary to chronic small vessel ischemic disease. 3. Prominence of ventricles and sulci which is frequently secondary to age related volume loss. Electronically signed by: Pepe Zuniga MD (12/03/2020 4:02 PM) [id number]
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
--- NOTE | 2020-12-03 18:33 | PDOC1 ---
History and Physical Date of Admission Date of Admission DATE: 12/03/20 TIME: 18:27 Source Source: Chart review History of Present Illness History of Present Illness Bing Mulligan is 60-year-old female DC yesterday after Pna and encephalopathy admit, returns today to the ER with altered mental status. Discharged yesterday after being admitted for several days due to respiratory failure, and she wasnt following commands or [facility]. They found that her pulse ox was 59% and placed on 4 L of oxygen. Upon EMS arrival she was GCS of 7. She did become somewhat more alert during transport. Patient is unable to provide any history. They state that she was able to sit on the side of the bed and was awake and alert yesterday. reviewing the DC, it looks like she was on 3 liters NC before DC, and should have been on that overnight, and I am worried from the story that she was hypoxic for some time on RA and her vital improved on 4 L. Her ABG here was OK, vital OK in ER Past Medical History Cardiovascular: CHF, HTN, Hyperlipidemia, Other Pulmonary: Asthma CENTRAL NERVOUS SYSTEM: Other GI: GERD, Other Heme/Onc: No pertinent hx Hepatobiliary: No pertinent hx Psych: Anxiety, Depression, Schizophrenia Musculoskeletal: Osteoarthritis, Other Rheumatologic: No pertinent hx Infectious disease: No pertinent hx Renal/: Chronic renal insuff, Acute renal failure, UTI Endocrine: Diabetes, Hypothyroidism Past Surgical History Past Surgical History: Pacemaker Family History Family History: Hypertension, Family History Unknown Social History ALCOHOL: none Drugs: None Current Problem List Problem List Problems Medical Problems: (1) Acute on chronic respiratory failure Status: Acute (2) Altered mental status Status: Acute Current Medications Current Medications Current Medications Sodium Chloride 1,000 ml @ 1,000 mls/hr 1X ONCE IV Last administered on 12/03/20at 14:38; Start 12/03/20 at 14:45; Stop 12/03/20 at 15:44; Status DC Active Scripts Active Dicyclomine Hcl 20 Mg Tablet 1 Tab PO TID 10 Days Reported Tramadol Hcl 50 Mg Tablet 50 Mg PO Q6HRS PRN Mylanta Maximum Strength Liq (Mag Hydrox/Aluminum Hyd/Simeth) 355 Ml Oral.susp 30 Ml PO PRN PRN Ativan (Lorazepam) 0.5 Mg Tablet 0.5 Mg PO Q8HRS PRN Ibu (Ibuprofen) 400 Mg Tablet 1 Tab PO Q6HRS PRN 5 Days NEEDED FOR PAIN Wellbutrin Xl (Bupropion Hcl) 150 Mg Tab.er.24h 150 Mg PO DAILY Artificial Tears Drops (Peg 400/Hypromellose/Glycerin) 15 Ml Drops 1 Drop OS QID 30 Days Folic Acid 0.4 Mg Tablet 0.4 Mg PO DAILY Duoneb 0.5-3(2.5) Mg/3 Ml (Albuterol/Ipratropium) 3 Ml Ampul.neb 3 Ml NEB Q4HRS Clonidine Hcl 0.2 Mg Tablet 0.2 Mg PO TID Multiple Vitamins (Multivitamin) 1 Each Tablet 1 Tab PO DAILY 30 Days Miralax (Polyethylene Glycol 3350) 17 Gm Powd.pack 1 Packet PO DAILY 2 Days dissolve in water Famotidine 20 Mg Tablet 20 Mg PO HS Zofran (Ondansetron Hcl) 4 Mg Tablet 4 Mg PO Q8HRS PRN Tears Again (Polyvinyl Alcohol) 15 Ml Drops 2 Drop EACHEYE Q4HRS 30 Days Polyvinyl Alcohol 15 Ml Drops 2 Drop EACHEYE Q4HRS 30 Days Ropinirole Hcl 1 Mg Tablet 1 Mg PO BID Magnesium Oxide 400 Mg Tablet 400 Mg PO DAILY Loratadine 10 Mg Tablet 10 Mg PO DAILY Humalog (Insulin Lispro) 100 Unit/1 Ml Vial 100 Unit SQ BIDWMEALS 70 - 150 0 units 151 - 200 0 units 201 - 250 2 units 251 - 300 3 units 301 - 349 4 units if FSBS is under 70 or 350 and over call MD [guaifenesin Syrup] 10 Ml PO Q4HRS PRN Coreg (Carvedilol) 25 Mg Tablet 50 Mg PO BIDWMEALS Peridex (Chlorhexidine Gluconate) 15 Ml Mouthwash 15 Ml PO BID 30 Days Swish in mouth for 30 seconds then spit out Calcium Carbonate 500 Mg Tablet 500 Mg PO Q4HRS Atorvastatin Calcium 10 Mg Tablet 10 Mg PO HS Acetaminophen 325 Mg Tablet 650 Mg PO Q6HRS Metformin Hcl 500 Mg Tablet 250 Mg PO BIDWMEALS Imodium A-D (Loperamide HCl) 2 Mg Capsule 2 Mg PO DAILY PRN Risperidone 0.5 Mg Tablet 2 Mg PO DAILY Levothyroxine Sodium 112 Mcg Tablet 1 Tab PO DAILY Advair 500-50 Diskus (Fluticasone/Salmeterol) 1 Each Disk.w.dev 1 Puff IH BID Nystatin 15 Gm Powder 1 Scott TP PRN BID PRN Clonazepam (Clonazepam) 0.5 Mg Tablet 1 Tab PO BID Gas-X (Simethicone) 80 Mg Tab.chew 160 Mg PO Q2HR PRN Gabapentin (Gabapentin) 100 Mg Capsule 100 Mg PO TID Allergies Allergies: Coded Allergies: lactose (Verified Allergy, Intermediate, 02/25/16) lisinopril (Verified Allergy, Intermediate, 08/08/15) ROS Review of System unable, pt lethargic, slow to respond, obtunded, Physical Exam General: No acute distress, Other (lethargic, does not follow commands, , opens eyes to verbal one time only, does not repeat, ) Lungs: Clear to auscultation Abdomen: Normal bowel sounds, Soft Extremities: No cyanosis, No edema Skin: No breakdown Neuro: Sensation intact (responds to light touch), Other Psych/Mental Status: Other Vitals Vitals Vital Signs Date Time Temp Pulse Resp B/P (MAP) Pulse Ox O2 Delivery O2 Flow Rate FiO2 12/03/20 16:50 80 99 12/03/20 14:07 96.2 30 98/59 (72) Room Air 96.2 Labs Labs Laboratory Tests Test 12/03/20 14:15 12/03/20 14:25 White Blood Count 10.1 x10^3/uL (4.0-11.0) Red Blood Count 2.60 x10^6/uL (3.50-5.40) Hemoglobin 7.9 g/dL (12.0-15.5) Hematocrit 25.3 % (36.0-47.0) Mean Corpuscular Volume 97 fL (79-100) Mean Corpuscular Hemoglobin 30 pg (25-35) Mean Corpuscular Hemoglobin Concent 31 g/dL (31-37) Red Cell Distribution Width 18.8 % (11.5-14.5) Platelet Count 168 x10^3/uL (140-400) Neutrophils (%) (Auto) 67 % (31-73) Lymphocytes (%) (Auto) 21 % (24-48) Monocytes (%) (Auto) 9 % (0-9) Eosinophils (%) (Auto) 2 % (0-3) Basophils (%) (Auto) 1 % (0-3) Neutrophils # (Auto) 6.8 x10^3/uL (1.8-7.7) Lymphocytes # (Auto) 2.1 x10^3/uL (1.0-4.8) Monocytes # (Auto) 0.9 x10^3/uL (0.0-1.1) Eosinophils # (Auto) 0.2 x10^3/uL (0.0-0.7) Basophils # (Auto) 0.1 x10^3/uL (0.0-0.2) O2 Saturation 92 % (92-99) Arterial Blood pH 7.31 (7.35-7.45) Arterial Blood pCO2 at Patient Temp 56 mmHg (35-46) Arterial Blood pO2 at Patient Temp 74 mmHg (65-108) Arterial Blood HCO3 28 mmol/L (21-28) Arterial Blood Base Excess 1 mmol/L (-3-3) FiO2 28/2lnc Sodium Level 137 mmol/L (136-145) Potassium Level 4.8 mmol/L (3.5-5.1) Chloride Level 100 mmol/L (98-107) Carbon Dioxide Level 32 mmol/L (21-32) Anion Gap 5 (6-14) Blood Urea Nitrogen 25 mg/dL (7-20) Creatinine 2.9 mg/dL (0.6-1.0) Estimated GFR (Cockcroft-Gault) 20.1 BUN/Creatinine Ratio 9 (6-20) Glucose Level 119 mg/dL (70-99) Lactic Acid Level 1.5 mmol/L (0.4-2.0) Calcium Level 8.4 mg/dL (8.5-10.1) Total Bilirubin 0.3 mg/dL (0.2-1.0) Aspartate Amino Transf (AST/SGOT) 20 U/L (15-37) Alanine Aminotransferase (ALT/SGPT) 12 U/L (14-59) Alkaline Phosphatase 105 U/L (46-116) Troponin I Quantitative 0.029 ng/mL (0.000-0.055) Total Protein 6.6 g/dL (6.4-8.2) Albumin 2.1 g/dL (3.4-5.0) Albumin/Globulin Ratio 0.5 (1.0-1.7) Urine Collection Type U cath Urine Color Yellow Urine Clarity Clear Urine pH 6.5 (<5.0-8.0) Urine Specific [place] 1.020 (1.000-1.030) Urine Protein >=300 mg/dL (NEG-TRACE) Urine Glucose (UA) Negative mg/dL (NEG) Urine Ketones (Stick) Trace mg/dL (NEG) Urine Blood Negative (NEG) Urine Nitrite Negative (NEG) Urine Bilirubin Negative (NEG) Urine Urobilinogen Dipstick 0.2 mg/dL (0.2 mg/dL) Urine Leukocyte Esterase Negative (NEG) Urine RBC Occ /HPF (0-2) Urine WBC 1-4 /HPF (0-4) Urine Bacteria 0 /HPF (0-FEW) Urine Hyaline Casts Moderate /HPF Urine Mucus Mod /LPF Laboratory Tests Test 12/03/20 14:15 12/03/20 14:25 White Blood Count 10.1 x10^3/uL (4.0-11.0) Red Blood Count 2.60 x10^6/uL (3.50-5.40) Hemoglobin 7.9 g/dL (12.0-15.5) Hematocrit 25.3 % (36.0-47.0) Mean Corpuscular Volume 97 fL (79-100) Mean Corpuscular Hemoglobin 30 pg (25-35) Mean Corpuscular Hemoglobin Concent 31 g/dL (31-37) Red Cell Distribution Width 18.8 % (11.5-14.5) Platelet Count 168 x10^3/uL (140-400) Neutrophils (%) (Auto) 67 % (31-73) Lymphocytes (%) (Auto) 21 % (24-48) Monocytes (%) (Auto) 9 % (0-9) Eosinophils (%) (Auto) 2 % (0-3) Basophils (%) (Auto) 1 % (0-3) Neutrophils # (Auto) 6.8 x10^3/uL (1.8-7.7) Lymphocytes # (Auto) 2.1 x10^3/uL (1.0-4.8) Monocytes # (Auto) 0.9 x10^3/uL (0.0-1.1) Eosinophils # (Auto) 0.2 x10^3/uL (0.0-0.7) Basophils # (Auto) 0.1 x10^3/uL (0.0-0.2) O2 Saturation 92 % (92-99) Arterial Blood pH 7.31 (7.35-7.45) Arterial Blood pCO2 at Patient Temp 56 mmHg (35-46) Arterial Blood pO2 at Patient Temp 74 mmHg (65-108) Arterial Blood HCO3 28 mmol/L (21-28) Arterial Blood Base Excess 1 mmol/L (-3-3) FiO2 28/2lnc Sodium Level 137 mmol/L (136-145) Potassium Level 4.8 mmol/L (3.5-5.1) Chloride Level 100 mmol/L (98-107) Carbon Dioxide Level 32 mmol/L (21-32) Anion Gap 5 (6-14) Blood Urea Nitrogen 25 mg/dL (7-20) Creatinine 2.9 mg/dL (0.6-1.0) Estimated GFR (Cockcroft-Gault) 20.1 BUN/Creatinine Ratio 9 (6-20) Glucose Level 119 mg/dL (70-99) Lactic Acid Level 1.5 mmol/L (0.4-2.0) Calcium Level 8.4 mg/dL (8.5-10.1) Total Bilirubin 0.3 mg/dL (0.2-1.0) Aspartate Amino Transf (AST/SGOT) 20 U/L (15-37) Alanine Aminotransferase (ALT/SGPT) 12 U/L (14-59) Alkaline Phosphatase 105 U/L (46-116) Troponin I Quantitative 0.029 ng/mL (0.000-0.055) Total Protein 6.6 g/dL (6.4-8.2) Albumin 2.1 g/dL (3.4-5.0) Albumin/Globulin Ratio 0.5 (1.0-1.7) Urine Collection Type U cath Urine Color Yellow Urine Clarity Clear Urine pH 6.5 (<5.0-8.0) Urine Specific [place] 1.020 (1.000-1.030) Urine Protein >=300 mg/dL (NEG-TRACE) Urine Glucose (UA) Negative mg/dL (NEG) Urine Ketones (Stick) Trace mg/dL (NEG) Urine Blood Negative (NEG) Urine Nitrite Negative (NEG) Urine Bilirubin Negative (NEG) Urine Urobilinogen Dipstick 0.2 mg/dL (0.2 mg/dL) Urine Leukocyte Esterase Negative (NEG) Urine RBC Occ /HPF (0-2) Urine WBC 1-4 /HPF (0-4) Urine Bacteria 0 /HPF (0-FEW) Urine Hyaline Casts Moderate /HPF Urine Mucus Mod /LPF VTE Prophylaxis Ordered VTE Prophylaxis Devices: Yes VTE Pharmacological Prophylaxi: Yes Assessment/Plan Assessment/Plan ACUTE ALTERED MENTAL STATUS, has worsened from discharged yesterday, acute Metabolic encephalopathy with underlying anxiety, depression, schizoaffective disorder. recent acute hypoxic respiratory failure from pneumonia, covid, stabel from DC possible aspiration pneumonia RECENT Fall - ct head negative, no other pain complaints, no fracture chronic systolic CHF s/p AICD , last EF 45% History of DVT bilateral legs Obesity BMI 35 Schizophrenia - Hypertension. COVID positive - 10/30/2020, still RECOVERING CKD 3-4, prior acute vasomotor nephropathy Justifications for Admission Other Justification Fall, new right pleural effusion HOMER BREEN MD Dec 03, 2020 18:32
[2020-12-03] MEDS ORDERED: MAG HYDROX/ALUMINUM HYD/SIMETH 30 ML ORAL.SUSP PO PRN (18:45)
[2020-12-03 19:00] VITALS: BP 111/68
[2020-12-03 19:22] LABS: BASE EXCESS ABG 2 mmol/L (-3-3); HCO3 ABG 29 mmol/L (21-28); PO2 ABG 67 mmHg (65-108); SAT O2 ABG 90 % (92-99)
[2020-12-03 19:23] LABS: PCO2 ABG 63 mmHg (35-46)
[2020-12-03 19:25] LABS: FIO2 ABG 28/2LNC
[2020-12-03] MEDS ORDERED: CALCIUM CARBONATE 500 MG TABLET PO PRN (20:00)
[2020-12-03] MEDS: IV DEXTROSE 5 %-0.45 % NACL 1,000 ML IV SCH (20:53)
[2020-12-03] MEDS: FAMOTIDINE 20 MG TABLET. PO SCH (21:00)
[2020-12-03] MEDS: GABAPENTIN 100 MG CAPSULE. PO SCH (21:00)
[2020-12-03] MEDS: ATORVASTATIN CALCIUM 10 MG TABLET. PO SCH (21:00)
[2020-12-03 21:03] LABS: BASE EXCESS ABG 0 mmol/L (-3-3); HCO3 ABG 26 mmol/L (21-28); PCO2 ABG 50 mmHg (35-46); PO2 ABG 87 mmHg (65-108); SAT O2 ABG 95 % (92-99)
[2020-12-03 21:11] LABS: FIO2 ABG 50
[2020-12-03 22:01] VITALS: BP 134/70
[2020-12-04] VITALS (9 sets, daily range): BP systolic 139–174; BP diastolic 70–91
[2020-12-04] MEDS: IV DEXTROSE 5 %-0.45 % NACL 1,000 ML IV SCH ×2 (06:42→20:40)
[2020-12-04] MEDS: LEVOTHYROXINE 112 MCG TABLET PO SCH (06:52)
[2020-12-04] MEDS: ACETAMINOPHEN 325 MG TABLET. PO SCH ×2 (06:53)
[2020-12-04 07:05] LABS: BASO # 0.1 x10^3/uL (0.0-0.2); BASO % 1 % (0-3); EOS # 0.3 x10^3/uL (0.0-0.7); EOS % 4 % (0-3); HEMATOCRIT 22.1 % (36.0-47.0); LYMPH # 1.5 x10^3/uL (1.0-4.8); LYMPH % 18 % (24-48); MEAN CORPUSCULAR HEMOGLOBIN 31 pg (25-35); MEAN CORPUSCULAR HGB CONC 32 g/dL (31-37); MEAN CORPUSCULAR VOLUME 97 fL (79-100); MONO # 0.7 x10^3/uL (0.0-1.1); MONO % 9 % (0-9); NEUT # 5.5 x10^3/uL (1.8-7.7); NEUT % 68 % (31-73); PLATELET COUNT 144 x10^3/uL (140-400); RED BLOOD COUNT 2.28 x10^6/uL (3.50-5.40); RED CELL DISTRIBUTION WIDTH 18.6 % (11.5-14.5); WHITE BLOOD COUNT 8.1 x10^3/uL (4.0-11.0)
[2020-12-04 07:25] LABS: ALBUMIN 1.9 g/dL (3.4-5.0); ALBUMIN/GLOBULIN RATIO 0.5 (1.0-1.7); CALCIUM 7.9 mg/dL (8.5-10.1); CREATININE 2.7 mg/dL (0.6-1.0); GFR 21.8; POTASSIUM 4.4 mmol/L (3.5-5.1); TOTAL BILIRUBIN 0.3 mg/dL (0.2-1.0); TOTAL PROTEIN 5.9 g/dL (6.4-8.2)
--- NOTE | 2020-12-04 07:38 | EKG ---
[facility] [address] [place] [address] Test Date: 2020-12-03 Test Time: 14:11:20 Pat Name: MARCOS CLIFTON Department: Room: Gender: F Primary Care Provider: : 1960 Requested By: CARMINE BAEZA Order Number: [id number] Reading MD: Measurements Intervals [place] Rate: 85 P: 82 [place]: 168 QRS: -109 QRSD: 132 T: 170 QT: 430 QTc: 512 Interpretive Statements SINUS RHYTHM ABNORMAL RIGHT SUPERIOR AXIS DEVIATION LEFT ANTERIOR FASCICULAR BLOCK NON SPECIFIC INTRAVENTRICULAR BLOCK QRS(T) CONTOUR ABNORMALITY CONSIDER ANTEROLATERAL MYOCARDIAL DAMAGE ABNORMAL ECG RI6.01 No previous ECG available for comparison
[2020-12-04] MEDS: POLYETHYLENE GLYCOL 3350 17 GM PACKET. PO SCH (09:00)
[2020-12-04] MEDS ORDERED: DEXTROSE 50% 25 GM / 50ML DISP.SYRIN. IV PRN (09:15)
[2020-12-04] MEDS ORDERED: LORazepam 0.5 MG TABLET PO PRN (09:15)
[2020-12-04] MEDS: buPROPion XL 150 MG TAB.ER.24H. PO SCH (09:31)
[2020-12-04] MEDS: GABAPENTIN 100 MG CAPSULE. PO SCH ×3 (09:32→20:28)
[2020-12-04] MEDS: rOPINIRole 1 MG TABLET. PO SCH ×2 (09:41→20:28)
--- NOTE | 2020-12-04 11:16 | CONS ---
DATE OF CONSULTATION: PULMONARY CONSULTATION ATTENDING PHYSICIAN: Dr. Pendleton. REASON FOR CONSULTATION: Respiratory failure. HISTORY OF PRESENT ILLNESS: The patient is 60 years old who is known to us from her previous admission. She has history of chronic hypoxic and hypercapnic respiratory failure and underlying schizophrenia. She was brought into the hospital after she was noted to have altered mental status and hypoxia. When EMS arrived, it appeared that oxygen was not hooked up. She was found to have oxygen saturation of 59%. She was placed on 4 liters. She had altered mental status with a [place] coma scale of 7. The patient's arterial blood gases revealed initially a pH of 7.31, pCO2 of 56 and a pO2 of 74 on 2 liters and the pH declined to 7.29 with a pCO2 increasing to 63. She was kept on BiPAP overnight and pH is now 7.33, pCO2 of 50 and a pO2 of 87. She is responding to commands. Chest x-ray revealed unchanged left basilar opacities, likely atelectasis. No cough, no fever, no chills, no chest pains. No nausea, vomiting or diarrhea reported. PAST MEDICAL HISTORY: History of chronic hypoxia and hypercapnia. History of congestive heart failure, hypertension, hyperlipidemia, asthma, schizophrenia, depression, osteoarthritis, chronic CKD, diabetes and hypothyroidism. PAST SURGICAL HISTORY: Pacemaker. FAMILY HISTORY: Hypertension. SOCIAL HISTORY: Smoked for about 10-15 years. MEDICATIONS: Reviewed as listed in the MRAD including clonazepam. REVIEW OF SYSTEMS: Limited, but 10-point system obtained and pertinent positives discussed as above. PHYSICAL EXAMINATION: VITAL SIGNS: Stable. Pulse ox 99% on 2 liters. NECK: Supple. LUNGS: Clear. CARDIOVASCULAR: With a regular rate. ABDOMEN: Soft. EXTREMITIES: With trace pitting edema. LABORATORY DATA: Reviewed. ABGs as discussed in my history of present illness. BUN 24, creatinine 2.7, bicarbonate 31. White cell count 8.1, hemoglobin 7.0 and platelets are 144. IMPRESSION: 1. Umizf-yd-lrmwyxq hypercapnic respiratory failure secondary to acute exacerbation of chronic obstructive pulmonary disease. Could have been contributed to by effect of benzodiazepine. She was also noted to be off of her oxygen at the skilled care facility and may have triggered her hypoxia. 2. No new infiltrates. 3. Anemia. 4. Chronic kidney disease. 5. Encephalopathy secondary to hypercapnia, now improving. 6. Severe protein-calorie malnutrition. 7. Toxic encephalopathy, improved. RECOMMENDATIONS: 1. Discussed with RN. At this time, clinically, she has improved. I will obtain another ABGs today. 2. BiPAP at bedtime and p.r.n. during the day. 3. Minimize benzodiazepines. 4. P.r.n. bronchodilators. 5. Continue supportive care. 6. Discussed with RN and Dr. Pendleton. MERRY STOKES MD DR: SARITA/natalia JOB#: [id number] / [id number] JORGE LD
[2020-12-04] MEDS: INSULIN LISPRO 300 UNITS/3 ML VIAL. SQ SCH ×2 (12:00→17:00)
[2020-12-04 12:16] LABS: BASE EXCESS ABG 5 mmol/L (-3-3); HCO3 ABG 32 mmol/L (21-28); PCO2 ABG 57 mmHg (35-46); PO2 ABG 59 mmHg (65-108); SAT O2 ABG 89 % (92-99)
[2020-12-04 12:19] LABS: FIO2 ABG 4L NC
--- NOTE | 2020-12-04 13:03 | PDOC ---
PROGRESS NOTES Date of Service: DATE: 12/04/20 TIME: 13:00 Chief Complaint Chief Complaint acute Toxic encephalopathy with overuse of benzodiazepenes, with underlying anxiety, depression, schizoaffective disorder. recent acute hypoxic respiratory failure from pneumonia, covid, stable from [place] possible aspiration pneumonia RECENT Fall - ct head negative, no other pain complaints, no fracture chronic systolic CHF s/p AICD , last EF 45% History of DVT bilateral legs Obesity BMI 35 Schizophrenia - Hypertension. 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 Vitals Vitals Vital Signs Date Time Temp Pulse Resp B/P (MAP) Pulse Ox O2 Delivery O2 Flow Rate FiO2 12/04/20 12:09 92 Nasal Cannula 4.0 12/04/20 11:45 98.4 83 20 153/72 98.4 Physical Exam General: Alert, Cooperative, No acute distress, Other Heart: Regular rate Lungs: Clear, Crackles Abdomen: Normal bowel sounds, Soft Extremities: No cyanosis, No edema Skin: No breakdown Labs LABS Laboratory Tests Test 12/03/20 14:15 12/03/20 14:25 12/03/20 18:03 12/03/20 20:49 White Blood Count 10.1 x10^3/uL (4.0-11.0) Red Blood Count 2.60 x10^6/uL (3.50-5.40) Hemoglobin 7.9 g/dL (12.0-15.5) Hematocrit 25.3 % (36.0-47.0) Mean Corpuscular Volume 97 fL (79-100) Mean Corpuscular Hemoglobin 30 pg (25-35) Mean Corpuscular Hemoglobin Concent 31 g/dL (31-37) Red Cell Distribution Width 18.8 % (11.5-14.5) Platelet Count 168 x10^3/uL (140-400) Neutrophils (%) (Auto) 67 % (31-73) Lymphocytes (%) (Auto) 21 % (24-48) Monocytes (%) (Auto) 9 % (0-9) Eosinophils (%) (Auto) 2 % (0-3) Basophils (%) (Auto) 1 % (0-3) Neutrophils # (Auto) 6.8 x10^3/uL (1.8-7.7) Lymphocytes # (Auto) 2.1 x10^3/uL (1.0-4.8) Monocytes # (Auto) 0.9 x10^3/uL (0.0-1.1) Eosinophils # (Auto) 0.2 x10^3/uL (0.0-0.7) Basophils # (Auto) 0.1 x10^3/uL (0.0-0.2) O2 Saturation 92 % (92-99) 90 % (92-99) Arterial Blood pH 7.31 (7.35-7.45) 7.29 (7.35-7.45) Arterial Blood pCO2 at Patient Temp 56 mmHg (35-46) 63 mmHg (35-46) Arterial Blood pO2 at Patient Temp 74 mmHg (65-108) 67 mmHg (65-108) Arterial Blood HCO3 28 mmol/L (21-28) 29 mmol/L (21-28) Arterial Blood Base Excess 1 mmol/L (-3-3) 2 mmol/L (-3-3) FiO2 28/2lnc 28/2lnc Sodium Level 137 mmol/L (136-145) Potassium Level 4.8 mmol/L (3.5-5.1) Chloride Level 100 mmol/L (98-107) Carbon Dioxide Level 32 mmol/L (21-32) Anion Gap 5 (6-14) Blood Urea Nitrogen 25 mg/dL (7-20) Creatinine 2.9 mg/dL (0.6-1.0) Estimated GFR (Cockcroft-Gault) 20.1 BUN/Creatinine Ratio 9 (6-20) Glucose Level 119 mg/dL (70-99) Lactic Acid Level 1.5 mmol/L (0.4-2.0) Calcium Level 8.4 mg/dL (8.5-10.1) Total Bilirubin 0.3 mg/dL (0.2-1.0) Aspartate Amino Transf (AST/SGOT) 20 U/L (15-37) Alanine Aminotransferase (ALT/SGPT) 12 U/L (14-59) Alkaline Phosphatase 105 U/L (46-116) Troponin I Quantitative 0.029 ng/mL (0.000-0.055) Total Protein 6.6 g/dL (6.4-8.2) Albumin 2.1 g/dL (3.4-5.0) Albumin/Globulin Ratio 0.5 (1.0-1.7) Urine Collection Type U cath Urine Color Yellow Urine Clarity Clear Urine pH 6.5 (<5.0-8.0) Urine Specific [place] 1.020 (1.000-1.030) Urine Protein >=300 mg/dL (NEG-TRACE) Urine Glucose (UA) Negative mg/dL (NEG) Urine Ketones (Stick) Trace mg/dL (NEG) Urine Blood Negative (NEG) Urine Nitrite Negative (NEG) Urine Bilirubin Negative (NEG) Urine Urobilinogen Dipstick 0.2 mg/dL (0.2 mg/dL) Urine Leukocyte Esterase Negative (NEG) Urine RBC Occ /HPF (0-2) Urine WBC 1-4 /HPF (0-4) Urine Bacteria 0 /HPF (0-FEW) Urine Hyaline Casts Moderate /HPF Urine Mucus Mod /LPF Glucose (Fingerstick) 76 mg/dL (70-99) Test 12/03/20 21:00 12/04/20 06:05 12/04/20 07:37 12/04/20 11:44 O2 Saturation 95 % (92-99) Arterial Blood pH 7.33 (7.35-7.45) Arterial Blood pCO2 at Patient Temp 50 mmHg (35-46) Arterial Blood pO2 at Patient Temp 87 mmHg (65-108) Arterial Blood pO2 (Temp corrected) mmHg Arterial Blood HCO3 26 mmol/L (21-28) Arterial Blood Base Excess 0 mmol/L (-3-3) FiO2 50 White Blood Count 8.1 x10^3/uL (4.0-11.0) Red Blood Count 2.28 x10^6/uL (3.50-5.40) Hemoglobin 7.0 g/dL (12.0-15.5) Hematocrit 22.1 % (36.0-47.0) Mean Corpuscular Volume 97 fL (79-100) Mean Corpuscular Hemoglobin 31 pg (25-35) Mean Corpuscular Hemoglobin Concent 32 g/dL (31-37) Red Cell Distribution Width 18.6 % (11.5-14.5) Platelet Count 144 x10^3/uL (140-400) Neutrophils (%) (Auto) 68 % (31-73) Lymphocytes (%) (Auto) 18 % (24-48) Monocytes (%) (Auto) 9 % (0-9) Eosinophils (%) (Auto) 4 % (0-3) Basophils (%) (Auto) 1 % (0-3) Neutrophils # (Auto) 5.5 x10^3/uL (1.8-7.7) Lymphocytes # (Auto) 1.5 x10^3/uL (1.0-4.8) Monocytes # (Auto) 0.7 x10^3/uL (0.0-1.1) Eosinophils # (Auto) 0.3 x10^3/uL (0.0-0.7) Basophils # (Auto) 0.1 x10^3/uL (0.0-0.2) Sodium Level 143 mmol/L (136-145) Potassium Level 4.4 mmol/L (3.5-5.1) Chloride Level 99 mmol/L (98-107) Carbon Dioxide Level 31 mmol/L (21-32) Anion Gap 13 (6-14) Blood Urea Nitrogen 24 mg/dL (7-20) Creatinine 2.7 mg/dL (0.6-1.0) Estimated GFR (Cockcroft-Gault) 21.8 BUN/Creatinine Ratio 9 (6-20) Glucose Level 80 mg/dL (70-99) Calcium Level 7.9 mg/dL (8.5-10.1) Total Bilirubin 0.3 mg/dL (0.2-1.0) Aspartate Amino Transf (AST/SGOT) 32 U/L (15-37) Alanine Aminotransferase (ALT/SGPT) 13 U/L (14-59) Alkaline Phosphatase 92 U/L (46-116) Total Protein 5.9 g/dL (6.4-8.2) Albumin 1.9 g/dL (3.4-5.0) Albumin/Globulin Ratio 0.5 (1.0-1.7) Glucose (Fingerstick) 100 mg/dL (70-99) 114 mg/dL (70-99) Test 12/04/20 12:10 O2 Saturation 89 % (92-99) Arterial Blood pH 7.36 (7.35-7.45) Arterial Blood pCO2 at Patient Temp 57 mmHg (35-46) Arterial Blood pO2 at Patient Temp 59 mmHg (65-108) Arterial Blood HCO3 32 mmol/L (21-28) Arterial Blood Base Excess 5 mmol/L (-3-3) FiO2 4l nc Assessment and Plan Assessmemt and Plan Problems Medical Problems: (1) Acute on chronic respiratory failure Status: Acute (2) Altered mental status Status: Acute Comment Review of Relevant I have reviewed the following items lucas (where applicable) has been applied. Labs Laboratory Tests Test 12/03/20 14:15 12/03/20 14:25 12/03/20 18:03 12/03/20 20:49 White Blood Count 10.1 x10^3/uL (4.0-11.0) Red Blood Count 2.60 x10^6/uL (3.50-5.40) Hemoglobin 7.9 g/dL (12.0-15.5) Hematocrit 25.3 % (36.0-47.0) Mean Corpuscular Volume 97 fL (79-100) Mean Corpuscular Hemoglobin 30 pg (25-35) Mean Corpuscular Hemoglobin Concent 31 g/dL (31-37) Red Cell Distribution Width 18.8 % (11.5-14.5) Platelet Count 168 x10^3/uL (140-400) Neutrophils (%) (Auto) 67 % (31-73) Lymphocytes (%) (Auto) 21 % (24-48) Monocytes (%) (Auto) 9 % (0-9) Eosinophils (%) (Auto) 2 % (0-3) Basophils (%) (Auto) 1 % (0-3) Neutrophils # (Auto) 6.8 x10^3/uL (1.8-7.7) Lymphocytes # (Auto) 2.1 x10^3/uL (1.0-4.8) Monocytes # (Auto) 0.9 x10^3/uL (0.0-1.1) Eosinophils # (Auto) 0.2 x10^3/uL (0.0-0.7) Basophils # (Auto) 0.1 x10^3/uL (0.0-0.2) O2 Saturation 92 % (92-99) 90 % (92-99) Arterial Blood pH 7.31 (7.35-7.45) 7.29 (7.35-7.45) Arterial Blood pCO2 at Patient Temp 56 mmHg (35-46) 63 mmHg (35-46) Arterial Blood pO2 at Patient Temp 74 mmHg (65-108) 67 mmHg (65-108) Arterial Blood HCO3 28 mmol/L (21-28) 29 mmol/L (21-28) Arterial Blood Base Excess 1 mmol/L (-3-3) 2 mmol/L (-3-3) FiO2 28/2lnc 28/2lnc Sodium Level 137 mmol/L (136-145) Potassium Level 4.8 mmol/L (3.5-5.1) Chloride Level 100 mmol/L (98-107) Carbon Dioxide Level 32 mmol/L (21-32) Anion Gap 5 (6-14) Blood Urea Nitrogen 25 mg/dL (7-20) Creatinine 2.9 mg/dL (0.6-1.0) Estimated GFR (Cockcroft-Gault) 20.1 BUN/Creatinine Ratio 9 (6-20) Glucose Level 119 mg/dL (70-99) Lactic Acid Level 1.5 mmol/L (0.4-2.0) Calcium Level 8.4 mg/dL (8.5-10.1) Total Bilirubin 0.3 mg/dL (0.2-1.0) Aspartate Amino Transf (AST/SGOT) 20 U/L (15-37) Alanine Aminotransferase (ALT/SGPT) 12 U/L (14-59) Alkaline Phosphatase 105 U/L (46-116) Troponin I Quantitative 0.029 ng/mL (0.000-0.055) Total Protein 6.6 g/dL (6.4-8.2) Albumin 2.1 g/dL (3.4-5.0) Albumin/Globulin Ratio 0.5 (1.0-1.7) Urine Collection Type U cath Urine Color Yellow Urine Clarity Clear Urine pH 6.5 (<5.0-8.0) Urine Specific [place] 1.020 (1.000-1.030) Urine Protein >=300 mg/dL (NEG-TRACE) Urine Glucose (UA) Negative mg/dL (NEG) Urine Ketones (Stick) Trace mg/dL (NEG) Urine Blood Negative (NEG) Urine Nitrite Negative (NEG) Urine Bilirubin Negative (NEG) Urine Urobilinogen Dipstick 0.2 mg/dL (0.2 mg/dL) Urine Leukocyte Esterase Negative (NEG) Urine RBC Occ /HPF (0-2) Urine WBC 1-4 /HPF (0-4) Urine Bacteria 0 /HPF (0-FEW) Urine Hyaline Casts Moderate /HPF Urine Mucus Mod /LPF Glucose (Fingerstick) 76 mg/dL (70-99) Test 12/03/20 21:00 12/04/20 06:05 12/04/20 07:37 12/04/20 11:44 O2 Saturation 95 % (92-99) Arterial Blood pH 7.33 (7.35-7.45) Arterial Blood pCO2 at Patient Temp 50 mmHg (35-46) Arterial Blood pO2 at Patient Temp 87 mmHg (65-108) Arterial Blood pO2 (Temp corrected) mmHg Arterial Blood HCO3 26 mmol/L (21-28) Arterial Blood Base Excess 0 mmol/L (-3-3) FiO2 50 White Blood Count 8.1 x10^3/uL (4.0-11.0) Red Blood Count 2.28 x10^6/uL (3.50-5.40) Hemoglobin 7.0 g/dL (12.0-15.5) Hematocrit 22.1 % (36.0-47.0) Mean Corpuscular Volume 97 fL (79-100) Mean Corpuscular Hemoglobin 31 pg (25-35) Mean Corpuscular Hemoglobin Concent 32 g/dL (31-37) Red Cell Distribution Width 18.6 % (11.5-14.5) Platelet Count 144 x10^3/uL (140-400) Neutrophils (%) (Auto) 68 % (31-73) Lymphocytes (%) (Auto) 18 % (24-48) Monocytes (%) (Auto) 9 % (0-9) Eosinophils (%) (Auto) 4 % (0-3) Basophils (%) (Auto) 1 % (0-3) Neutrophils # (Auto) 5.5 x10^3/uL (1.8-7.7) Lymphocytes # (Auto) 1.5 x10^3/uL (1.0-4.8) Monocytes # (Auto) 0.7 x10^3/uL (0.0-1.1) Eosinophils # (Auto) 0.3 x10^3/uL (0.0-0.7) Basophils # (Auto) 0.1 x10^3/uL (0.0-0.2) Sodium Level 143 mmol/L (136-145) Potassium Level 4.4 mmol/L (3.5-5.1) Chloride Level 99 mmol/L (98-107) Carbon Dioxide Level 31 mmol/L (21-32) Anion Gap 13 (6-14) Blood Urea Nitrogen 24 mg/dL (7-20) Creatinine 2.7 mg/dL (0.6-1.0) Estimated GFR (Cockcroft-Gault) 21.8 BUN/Creatinine Ratio 9 (6-20) Glucose Level 80 mg/dL (70-99) Calcium Level 7.9 mg/dL (8.5-10.1) Total Bilirubin 0.3 mg/dL (0.2-1.0) Aspartate Amino Transf (AST/SGOT) 32 U/L (15-37) Alanine Aminotransferase (ALT/SGPT) 13 U/L (14-59) Alkaline Phosphatase 92 U/L (46-116) Total Protein 5.9 g/dL (6.4-8.2) Albumin 1.9 g/dL (3.4-5.0) Albumin/Globulin Ratio 0.5 (1.0-1.7) Glucose (Fingerstick) 100 mg/dL (70-99) 114 mg/dL (70-99) Test 12/04/20 12:10 O2 Saturation 89 % (92-99) Arterial Blood pH 7.36 (7.35-7.45) Arterial Blood pCO2 at Patient Temp 57 mmHg (35-46) Arterial Blood pO2 at Patient Temp 59 mmHg (65-108) Arterial Blood HCO3 32 mmol/L (21-28) Arterial Blood Base Excess 5 mmol/L (-3-3) FiO2 4l nc Laboratory Tests Test 12/03/20 14:15 12/03/20 14:25 12/03/20 18:03 12/03/20 20:49 White Blood Count 10.1 x10^3/uL (4.0-11.0) Red Blood Count 2.60 x10^6/uL (3.50-5.40) Hemoglobin 7.9 g/dL (12.0-15.5) Hematocrit 25.3 % (36.0-47.0) Mean Corpuscular Volume 97 fL (79-100) Mean Corpuscular Hemoglobin 30 pg (25-35) Mean Corpuscular Hemoglobin Concent 31 g/dL (31-37) Red Cell Distribution Width 18.8 % (11.5-14.5) Platelet Count 168 x10^3/uL (140-400) Neutrophils (%) (Auto) 67 % (31-73) Lymphocytes (%) (Auto) 21 % (24-48) Monocytes (%) (Auto) 9 % (0-9) Eosinophils (%) (Auto) 2 % (0-3) Basophils (%) (Auto) 1 % (0-3) Neutrophils # (Auto) 6.8 x10^3/uL (1.8-7.7) Lymphocytes # (Auto) 2.1 x10^3/uL (1.0-4.8) Monocytes # (Auto) 0.9 x10^3/uL (0.0-1.1) Eosinophils # (Auto) 0.2 x10^3/uL (0.0-0.7) Basophils # (Auto) 0.1 x10^3/uL (0.0-0.2) O2 Saturation 92 % (92-99) 90 % (92-99) Arterial Blood pH 7.31 (7.35-7.45) 7.29 (7.35-7.45) Arterial Blood pCO2 at Patient Temp 56 mmHg (35-46) 63 mmHg (35-46) Arterial Blood pO2 at Patient Temp 74 mmHg (65-108) 67 mmHg (65-108) Arterial Blood HCO3 28 mmol/L (21-28) 29 mmol/L (21-28) Arterial Blood Base Excess 1 mmol/L (-3-3) 2 mmol/L (-3-3) FiO2 28/2lnc 28/2lnc Sodium Level 137 mmol/L (136-145) Potassium Level 4.8 mmol/L (3.5-5.1) Chloride Level 100 mmol/L (98-107) Carbon Dioxide Level 32 mmol/L (21-32) Anion Gap 5 (6-14) Blood Urea Nitrogen 25 mg/dL (7-20) Creatinine 2.9 mg/dL (0.6-1.0) Estimated GFR (Cockcroft-Gault) 20.1 BUN/Creatinine Ratio 9 (6-20) Glucose Level 119 mg/dL (70-99) Lactic Acid Level 1.5 mmol/L (0.4-2.0) Calcium Level 8.4 mg/dL (8.5-10.1) Total Bilirubin 0.3 mg/dL (0.2-1.0) Aspartate Amino Transf (AST/SGOT) 20 U/L (15-37) Alanine Aminotransferase (ALT/SGPT) 12 U/L (14-59) Alkaline Phosphatase 105 U/L (46-116) Troponin I Quantitative 0.029 ng/mL (0.000-0.055) Total Protein 6.6 g/dL (6.4-8.2) Albumin 2.1 g/dL (3.4-5.0) Albumin/Globulin Ratio 0.5 (1.0-1.7) Urine Collection Type U cath Urine Color Yellow Urine Clarity Clear Urine pH 6.5 (<5.0-8.0) Urine Specific [place] 1.020 (1.000-1.030) Urine Protein >=300 mg/dL (NEG-TRACE) Urine Glucose (UA) Negative mg/dL (NEG) Urine Ketones (Stick) Trace mg/dL (NEG) Urine Blood Negative (NEG) Urine Nitrite Negative (NEG) Urine Bilirubin Negative (NEG) Urine Urobilinogen Dipstick 0.2 mg/dL (0.2 mg/dL) Urine Leukocyte Esterase Negative (NEG) Urine RBC Occ /HPF (0-2) Urine WBC 1-4 /HPF (0-4) Urine Bacteria 0 /HPF (0-FEW) Urine Hyaline Casts Moderate /HPF Urine Mucus Mod /LPF Glucose (Fingerstick) 76 mg/dL (70-99) Test 12/03/20 21:00 12/04/20 06:05 12/04/20 07:37 12/04/20 11:44 O2 Saturation 95 % (92-99) Arterial Blood pH 7.33 (7.35-7.45) Arterial Blood pCO2 at Patient Temp 50 mmHg (35-46) Arterial Blood pO2 at Patient Temp 87 mmHg (65-108) Arterial Blood pO2 (Temp corrected) mmHg Arterial Blood HCO3 26 mmol/L (21-28) Arterial Blood Base Excess 0 mmol/L (-3-3) FiO2 50 White Blood Count 8.1 x10^3/uL (4.0-11.0) Red Blood Count 2.28 x10^6/uL (3.50-5.40) Hemoglobin 7.0 g/dL (12.0-15.5) Hematocrit 22.1 % (36.0-47.0) Mean Corpuscular Volume 97 fL (79-100) Mean Corpuscular Hemoglobin 31 pg (25-35) Mean Corpuscular Hemoglobin Concent 32 g/dL (31-37) Red Cell Distribution Width 18.6 % (11.5-14.5) Platelet Count 144 x10^3/uL (140-400) Neutrophils (%) (Auto) 68 % (31-73) Lymphocytes (%) (Auto) 18 % (24-48) Monocytes (%) (Auto) 9 % (0-9) Eosinophils (%) (Auto) 4 % (0-3) Basophils (%) (Auto) 1 % (0-3) Neutrophils # (Auto) 5.5 x10^3/uL (1.8-7.7) Lymphocytes # (Auto) 1.5 x10^3/uL (1.0-4.8) Monocytes # (Auto) 0.7 x10^3/uL (0.0-1.1) Eosinophils # (Auto) 0.3 x10^3/uL (0.0-0.7) Basophils # (Auto) 0.1 x10^3/uL (0.0-0.2) Sodium Level 143 mmol/L (136-145) Potassium Level 4.4 mmol/L (3.5-5.1) Chloride Level 99 mmol/L (98-107) Carbon Dioxide Level 31 mmol/L (21-32) Anion Gap 13 (6-14) Blood Urea Nitrogen 24 mg/dL (7-20) Creatinine 2.7 mg/dL (0.6-1.0) Estimated GFR (Cockcroft-Gault) 21.8 BUN/Creatinine Ratio 9 (6-20) Glucose Level 80 mg/dL (70-99) Calcium Level 7.9 mg/dL (8.5-10.1) Total Bilirubin 0.3 mg/dL (0.2-1.0) Aspartate Amino Transf (AST/SGOT) 32 U/L (15-37) Alanine Aminotransferase (ALT/SGPT) 13 U/L (14-59) Alkaline Phosphatase 92 U/L (46-116) Total Protein 5.9 g/dL (6.4-8.2) Albumin 1.9 g/dL (3.4-5.0) Albumin/Globulin Ratio 0.5 (1.0-1.7) Glucose (Fingerstick) 100 mg/dL (70-99) 114 mg/dL (70-99) Test 12/04/20 12:10 O2 Saturation 89 % (92-99) Arterial Blood pH 7.36 (7.35-7.45) Arterial Blood pCO2 at Patient Temp 57 mmHg (35-46) Arterial Blood pO2 at Patient Temp 59 mmHg (65-108) Arterial Blood HCO3 32 mmol/L (21-28) Arterial Blood Base Excess 5 mmol/L (-3-3) FiO2 4l nc Medications Current Medications Sodium Chloride 1,000 ml @ 1,000 mls/hr 1X ONCE IV Last administered on 12/03/20at 14:38; Start 12/03/20 at 14:45; Stop 12/03/20 at 15:44; Status DC Acetaminophen (Tylenol) 650 mg Q6HRS PO Last administered on 12/04/20at 06:53; Start 12/04/20 at 00:00; Stop 12/04/20 at 09:09; Status DC Atorvastatin Calcium (Lipitor) 10 mg HS PO ; Start 12/03/20 at 21:00 Bupropion HCl (Wellbutrin Xl) 150 mg DAILY PO Last administered on 12/04/20at 09:31; Start 12/04/20 at 09:00 Calcium Carbonate/ Glycine (Oscal) 500 mg PRN Q4HRS PRN PO GI SYMPTOMS; Start 12/03/20 at 20:00 Famotidine (Pepcid) 20 mg HS PO ; Start 12/03/20 at 21:00 Gabapentin (Neurontin) 100 mg TID PO Last administered on 12/04/20at 09:32; Start 12/03/20 at 21:00 Ibuprofen (Motrin) 400 mg PRN Q6HRS PRN PO PAIN; Start 12/03/20 at 18:45 Levothyroxine Sodium (Synthroid) 112 mcg DAILY07 PO Last administered on 12/04/20at 06:52; Start 12/04/20 at 07:00 Al Hydroxide/Mg Hydroxide (Mylanta Plus Xs) 30 ml PRN Q12HR PRN PO UPSET STOMACH; Start 12/03/20 at 18:45 Polyethylene Glycol (miraLAX PACKET) 17 gm DAILY PO ; Start 12/04/20 at 09:00 Dextrose/Sodium Chloride 1,000 ml @ 100 mls/hr Q10H IV Last administered on 12/04/20at 06:42; Start 12/03/20 at 19:00 Insulin Human Lispro (HumaLOG) 0-7 UNITS TIDWMEALS SQ ; Start 12/04/20 at 12:00 Dextrose (Dextrose 50%-Water Syringe) 12.5 gm PRN Q15MIN PRN IV SEE COMMENTS; Start 12/04/20 at 09:15 Acetaminophen (Tylenol) 650 mg PRN Q6HRS PRN PO pain; Start 12/04/20 at 09:15 Clonazepam (KlonoPIN) 0.5 mg BID PO ; Start 12/04/20 at 21:00 Lorazepam (Ativan) 0.5 mg PRN Q8HRS PRN PO ANXIETY; Start 12/04/20 at 09:15 Ropinirole HCl (Requip) 1 mg BID PO Last administered on 12/04/20at 09:41; Start 12/04/20 at 10:00 Active Scripts Active Reported Tramadol Hcl 50 Mg Tablet 50 Mg PO Q6HRS PRN Mylanta Maximum Strength Liq (Mag Hydrox/Aluminum Hyd/Simeth) 355 Ml Oral.susp 30 Ml PO PRN PRN Ativan (Lorazepam) 0.5 Mg Tablet 0.5 Mg PO Q8HRS PRN Ibu (Ibuprofen) 400 Mg Tablet 1 Tab PO Q6HRS PRN 5 Days NEEDED FOR PAIN Wellbutrin Xl (Bupropion Hcl) 150 Mg Tab.er.24h 150 Mg PO DAILY Artificial Tears Drops (Peg 400/Hypromellose/Glycerin) 15 Ml Drops 1 Drop OS QID 30 Days Folic Acid 0.4 Mg Tablet 0.4 Mg PO DAILY Duoneb 0.5-3(2.5) Mg/3 Ml (Albuterol/Ipratropium) 3 Ml Ampul.neb 3 Ml NEB Q4HRS Clonidine Hcl 0.2 Mg Tablet 0.2 Mg PO TID Multiple Vitamins (Multivitamin) 1 Each Tablet 1 Tab PO DAILY 30 Days Miralax (Polyethylene Glycol 3350) 17 Gm Powd.pack 1 Packet PO DAILY 2 Days dissolve in water Famotidine 20 Mg Tablet 20 Mg PO HS Zofran (Ondansetron Hcl) 4 Mg Tablet 4 Mg PO Q8HRS PRN Polyvinyl Alcohol 15 Ml Drops 2 Drop EACHEYE Q4HRS 30 Days Ropinirole Hcl 1 Mg Tablet 1 Mg PO BID Magnesium Oxide 400 Mg Tablet 400 Mg PO DAILY Loratadine 10 Mg Tablet 10 Mg PO DAILY Humalog (Insulin Lispro) 100 Unit/1 Ml Vial 0 SQ BIDWMEALS 70 - 150 0 units 151 - 200 0 units 201 - 250 2 units 251 - 300 3 units 301 - 349 4 units if FSBS is under 70 or 350 and over call MD [guaifenesin Syrup] 10 Ml PO Q4HRS PRN Coreg (Carvedilol) 25 Mg Tablet 50 Mg PO BIDWMEALS Peridex (Chlorhexidine Gluconate) 15 Ml Mouthwash 15 Ml PO BID 30 Days Swish in mouth for 30 seconds then spit out Calcium Carbonate 500 Mg Tablet 500 Mg PO Q4HRS Atorvastatin Calcium 10 Mg Tablet 10 Mg PO HS Acetaminophen 325 Mg Tablet 650 Mg PO Q6HRS Metformin Hcl 500 Mg Tablet 250 Mg PO BIDWMEALS Imodium A-D (Loperamide HCl) 2 Mg Capsule 2 Mg PO DAILY PRN Risperidone 0.5 Mg Tablet 0.5 Mg PO AFTRNOON Levothyroxine Sodium 112 Mcg Tablet 1 Tab PO DAILY Advair 500-50 Diskus (Fluticasone/Salmeterol) 1 Each Disk.w.dev 1 Puff IH BID Nystatin 15 Gm Powder 1 Scott TP PRN BID PRN Clonazepam (Clonazepam) 0.5 Mg Tablet 1 Tab PO BID Gas-X (Simethicone) 80 Mg Tab.chew 160 Mg PO Q2HR PRN Gabapentin (Gabapentin) 100 Mg Capsule 100 Mg PO TID Vitals/I & O Vital Sign - Last 24 Hours 12/03/20 12/03/20 12/03/20 12/03/20 14:07 14:56 15:11 15:26 Temp 96.2 96.2 Pulse 88 80 85 83 Resp 30 B/P (MAP) 98/59 (72) Pulse Ox 79 95 95 99 O2 Delivery Room Air 12/03/20 12/03/20 12/03/20 12/03/20 15:50 16:20 16:50 17:20 Pulse 81 82 80 81 Pulse Ox 97 97 99 97 12/03/20 12/03/20 12/03/20 12/03/20 17:50 18:20 19:00 19:01 Temp 97.6 97.6 Pulse 80 82 79 Resp 24 B/P (MAP) 111/68 (82) Pulse Ox 95 90 92 98 O2 Delivery BiPAP/CPAP BiPAP/CPAP 12/03/20 12/03/20 12/03/20 12/03/20 20:00 20:44 21:36 22:01 Temp 98.5 98.5 Pulse 81 Resp 20 B/P (MAP) 134/70 (91) Pulse Ox 98 97 97 O2 Delivery Bi-pap BiPAP/CPAP BiPAP/CPAP BiPAP/CPAP 12/04/20 12/04/20 12/04/20 12/04/20 00:30 02:24 04:06 07:00 Temp 98.5 98.2 98.5 98.2 Pulse 73 79 Resp 24 20 B/P (MAP) 141/70 (93) 142/76 (98) Pulse Ox 97 97 100 99 O2 Delivery BiPAP/CPAP BiPAP/CPAP BiPAP/CPAP BiPAP/CPAP 12/04/20 12/04/20 12/04/20 12/04/20 08:22 11:00 11:30 11:45 Temp 97.2 97.2 98.4 97.2 97.2 98.4 Pulse 94 94 83 Resp 18 18 20 B/P (MAP) 151/76 (101) 151/76 153/72 Pulse Ox 99 93 O2 Delivery BiPAP/CPAP Nasal Cannula O2 Flow Rate 6.0 12/04/20 12:09 Pulse Ox 92 O2 Delivery Nasal Cannula O2 Flow Rate 4.0 Intake and Output 12/03/20 12/03/20 12/04/20 15:00 23:00 07:00 Intake Total 1000 ml 1000 ml Balance 1000 ml 1000 ml Justicifation of Admission Dx: Justifications for Admission: Justification of Admission Dx: Yes HOMER BREEN MD Dec 04, 2020 13:03
--- NOTE | 2020-12-04 13:28 | NUR ---
SS following for discharge planning. SS reviewed pt chart and discussed with pt RN. Pt is LTC resident from [facility], ; fax [phone]. COVID19 recovered. PT/OT recommended [facility] unit. Pt is currently requiring oxygen at four liters nasal canula. SS will continue to follow for discharge planning.
[2020-12-04] MEDS ORDERED: CYANOCOBALAMIN (VITAMIN B-12) 1,000 MCG/ML VIAL. IM ONE (14:00)
[2020-12-04] MEDS: clonazePAM 0.5 MG TABLET PO SCH (20:28)
[2020-12-04] MEDS: ATORVASTATIN CALCIUM 10 MG TABLET. PO SCH (20:28)
[2020-12-04] MEDS: FAMOTIDINE 20 MG TABLET. PO SCH (20:28)
[2020-12-04] MEDS ORDERED: clonazePAM 0.5 MG TABLET PO SCH (21:00)
[2020-12-05 02:55] VITALS: BP 141/87
[2020-12-05] MEDS: LEVOTHYROXINE 112 MCG TABLET PO SCH (05:52)
[2020-12-05] MEDS: IV DEXTROSE 5 %-0.45 % NACL 1,000 ML IV SCH ×3 (05:53→21:00)
[2020-12-05 07:00] VITALS: BP 144/94
[2020-12-05] MEDS: INSULIN LISPRO 300 UNITS/3 ML VIAL. SQ SCH ×3 (08:00→17:00)
[2020-12-05] MEDS: buPROPion XL 150 MG TAB.ER.24H. PO SCH (08:34)
[2020-12-05] MEDS: rOPINIRole 1 MG TABLET. PO SCH ×2 (08:34→20:19)
[2020-12-05] MEDS: GABAPENTIN 100 MG CAPSULE. PO SCH (08:34)
[2020-12-05] MEDS: POLYETHYLENE GLYCOL 3350 17 GM PACKET. PO SCH (08:38)
[2020-12-05 10:13] LABS: CALCIUM 7.4 mg/dL (8.5-10.1); CREATININE 2.3 mg/dL (0.6-1.0); GFR 26.3; POTASSIUM 3.8 mmol/L (3.5-5.1)
[2020-12-05] MEDS ORDERED: ESTROGENS, CONJUGATED 0.625 MG TABLET PO ONE (10:30)
--- NOTE | 2020-12-05 10:32 | PDOC ---
PULMONARY PROGRESS NOTES DATE: 12/05/20 TIME: 10:27 Subjective PT. is on 4 liters N/C wore bipap overnight afebrile doing well this am Vitals Vital Signs Date Time Temp Pulse Resp B/P (MAP) Pulse Ox O2 Delivery O2 Flow Rate FiO2 12/05/20 08:00 Nasal Cannula 4.0 12/05/20 07:20 92 12/05/20 07:00 98.1 93 20 144/94 (111) 98.1 ROS: No Nausea, No Chest Pain, No Abdominal Pain, No Increase Cough General: Alert Lungs: Clear Cardiovascular: S1, S2 Abdomen: Soft, Non-tender Neuro Exam: Alert, Oriented Extremities: No Edema Skin: Warm, Dry Labs Laboratory Tests Test 12/03/20 14:15 12/03/20 14:25 12/03/20 18:03 12/03/20 20:49 White Blood Count 10.1 x10^3/uL (4.0-11.0) Red Blood Count 2.60 x10^6/uL (3.50-5.40) Hemoglobin 7.9 g/dL (12.0-15.5) Hematocrit 25.3 % (36.0-47.0) Mean Corpuscular Volume 97 fL (79-100) Mean Corpuscular Hemoglobin 30 pg (25-35) Mean Corpuscular Hemoglobin Concent 31 g/dL (31-37) Red Cell Distribution Width 18.8 % (11.5-14.5) Platelet Count 168 x10^3/uL (140-400) Neutrophils (%) (Auto) 67 % (31-73) Lymphocytes (%) (Auto) 21 % (24-48) Monocytes (%) (Auto) 9 % (0-9) Eosinophils (%) (Auto) 2 % (0-3) Basophils (%) (Auto) 1 % (0-3) Neutrophils # (Auto) 6.8 x10^3/uL (1.8-7.7) Lymphocytes # (Auto) 2.1 x10^3/uL (1.0-4.8) Monocytes # (Auto) 0.9 x10^3/uL (0.0-1.1) Eosinophils # (Auto) 0.2 x10^3/uL (0.0-0.7) Basophils # (Auto) 0.1 x10^3/uL (0.0-0.2) O2 Saturation 92 % (92-99) 90 % (92-99) Arterial Blood pH 7.31 (7.35-7.45) 7.29 (7.35-7.45) Arterial Blood pCO2 at Patient Temp 56 mmHg (35-46) 63 mmHg (35-46) Arterial Blood pO2 at Patient Temp 74 mmHg (65-108) 67 mmHg (65-108) Arterial Blood HCO3 28 mmol/L (21-28) 29 mmol/L (21-28) Arterial Blood Base Excess 1 mmol/L (-3-3) 2 mmol/L (-3-3) FiO2 28/2lnc 28/2lnc Sodium Level 137 mmol/L (136-145) Potassium Level 4.8 mmol/L (3.5-5.1) Chloride Level 100 mmol/L (98-107) Carbon Dioxide Level 32 mmol/L (21-32) Anion Gap 5 (6-14) Blood Urea Nitrogen 25 mg/dL (7-20) Creatinine 2.9 mg/dL (0.6-1.0) Estimated GFR (Cockcroft-Gault) 20.1 BUN/Creatinine Ratio 9 (6-20) Glucose Level 119 mg/dL (70-99) Lactic Acid Level 1.5 mmol/L (0.4-2.0) Calcium Level 8.4 mg/dL (8.5-10.1) Total Bilirubin 0.3 mg/dL (0.2-1.0) Aspartate Amino Transf (AST/SGOT) 20 U/L (15-37) Alanine Aminotransferase (ALT/SGPT) 12 U/L (14-59) Alkaline Phosphatase 105 U/L (46-116) Troponin I Quantitative 0.029 ng/mL (0.000-0.055) Total Protein 6.6 g/dL (6.4-8.2) Albumin 2.1 g/dL (3.4-5.0) Albumin/Globulin Ratio 0.5 (1.0-1.7) Urine Collection Type U cath Urine Color Yellow Urine Clarity Clear Urine pH 6.5 (<5.0-8.0) Urine Specific [place] 1.020 (1.000-1.030) Urine Protein >=300 mg/dL (NEG-TRACE) Urine Glucose (UA) Negative mg/dL (NEG) Urine Ketones (Stick) Trace mg/dL (NEG) Urine Blood Negative (NEG) Urine Nitrite Negative (NEG) Urine Bilirubin Negative (NEG) Urine Urobilinogen Dipstick 0.2 mg/dL (0.2 mg/dL) Urine Leukocyte Esterase Negative (NEG) Urine RBC Occ /HPF (0-2) Urine WBC 1-4 /HPF (0-4) Urine Bacteria 0 /HPF (0-FEW) Urine Hyaline Casts Moderate /HPF Urine Mucus Mod /LPF Glucose (Fingerstick) 76 mg/dL (70-99) Test 12/03/20 21:00 12/04/20 06:05 12/04/20 07:37 12/04/20 11:44 O2 Saturation 95 % (92-99) Arterial Blood pH 7.33 (7.35-7.45) Arterial Blood pCO2 at Patient Temp 50 mmHg (35-46) Arterial Blood pO2 at Patient Temp 87 mmHg (65-108) Arterial Blood pO2 (Temp corrected) mmHg Arterial Blood HCO3 26 mmol/L (21-28) Arterial Blood Base Excess 0 mmol/L (-3-3) FiO2 50 White Blood Count 8.1 x10^3/uL (4.0-11.0) Red Blood Count 2.28 x10^6/uL (3.50-5.40) Hemoglobin 7.0 g/dL (12.0-15.5) Hematocrit 22.1 % (36.0-47.0) Mean Corpuscular Volume 97 fL (79-100) Mean Corpuscular Hemoglobin 31 pg (25-35) Mean Corpuscular Hemoglobin Concent 32 g/dL (31-37) Red Cell Distribution Width 18.6 % (11.5-14.5) Platelet Count 144 x10^3/uL (140-400) Neutrophils (%) (Auto) 68 % (31-73) Lymphocytes (%) (Auto) 18 % (24-48) Monocytes (%) (Auto) 9 % (0-9) Eosinophils (%) (Auto) 4 % (0-3) Basophils (%) (Auto) 1 % (0-3) Neutrophils # (Auto) 5.5 x10^3/uL (1.8-7.7) Lymphocytes # (Auto) 1.5 x10^3/uL (1.0-4.8) Monocytes # (Auto) 0.7 x10^3/uL (0.0-1.1) Eosinophils # (Auto) 0.3 x10^3/uL (0.0-0.7) Basophils # (Auto) 0.1 x10^3/uL (0.0-0.2) Sodium Level 143 mmol/L (136-145) Potassium Level 4.4 mmol/L (3.5-5.1) Chloride Level 99 mmol/L (98-107) Carbon Dioxide Level 31 mmol/L (21-32) Anion Gap 13 (6-14) Blood Urea Nitrogen 24 mg/dL (7-20) Creatinine 2.7 mg/dL (0.6-1.0) Estimated GFR (Cockcroft-Gault) 21.8 BUN/Creatinine Ratio 9 (6-20) Glucose Level 80 mg/dL (70-99) Calcium Level 7.9 mg/dL (8.5-10.1) Total Bilirubin 0.3 mg/dL (0.2-1.0) Aspartate Amino Transf (AST/SGOT) 32 U/L (15-37) Alanine Aminotransferase (ALT/SGPT) 13 U/L (14-59) Alkaline Phosphatase 92 U/L (46-116) Total Protein 5.9 g/dL (6.4-8.2) Albumin 1.9 g/dL (3.4-5.0) Albumin/Globulin Ratio 0.5 (1.0-1.7) Glucose (Fingerstick) 100 mg/dL (70-99) 114 mg/dL (70-99) Test 12/04/20 12:10 12/04/20 17:05 12/04/20 20:25 12/05/20 07:34 O2 Saturation 89 % (92-99) Arterial Blood pH 7.36 (7.35-7.45) Arterial Blood pCO2 at Patient Temp 57 mmHg (35-46) Arterial Blood pO2 at Patient Temp 59 mmHg (65-108) Arterial Blood HCO3 32 mmol/L (21-28) Arterial Blood Base Excess 5 mmol/L (-3-3) FiO2 4l nc Glucose (Fingerstick) 119 mg/dL (70-99) 133 mg/dL (70-99) 120 mg/dL (70-99) Test 12/05/20 09:35 Sodium Level 135 mmol/L (136-145) Potassium Level 3.8 mmol/L (3.5-5.1) Chloride Level 101 mmol/L (98-107) Carbon Dioxide Level 28 mmol/L (21-32) Anion Gap 6 (6-14) Blood Urea Nitrogen 19 mg/dL (7-20) Creatinine 2.3 mg/dL (0.6-1.0) Estimated GFR (Cockcroft-Gault) 26.3 Glucose Level 132 mg/dL (70-99) Calcium Level 7.4 mg/dL (8.5-10.1) Laboratory Tests Test 12/04/20 11:44 12/04/20 12:10 12/04/20 17:05 12/04/20 20:25 Glucose (Fingerstick) 114 mg/dL (70-99) 119 mg/dL (70-99) 133 mg/dL (70-99) O2 Saturation 89 % (92-99) Arterial Blood pH 7.36 (7.35-7.45) Arterial Blood pCO2 at Patient Temp 57 mmHg (35-46) Arterial Blood pO2 at Patient Temp 59 mmHg (65-108) Arterial Blood HCO3 32 mmol/L (21-28) Arterial Blood Base Excess 5 mmol/L (-3-3) FiO2 4l nc Test 12/05/20 07:34 12/05/20 09:35 Glucose (Fingerstick) 120 mg/dL (70-99) Sodium Level 135 mmol/L (136-145) Potassium Level 3.8 mmol/L (3.5-5.1) Chloride Level 101 mmol/L (98-107) Carbon Dioxide Level 28 mmol/L (21-32) Anion Gap 6 (6-14) Blood Urea Nitrogen 19 mg/dL (7-20) Creatinine 2.3 mg/dL (0.6-1.0) Estimated GFR (Cockcroft-Gault) 26.3 Glucose Level 132 mg/dL (70-99) Calcium Level 7.4 mg/dL (8.5-10.1) Medications Active Scripts Medications Dose Route/Sig Max Daily Dose Days Date Category Dose Instructions Tramadol Hcl 50 Mg Tablet 50 Mg PO Q6HRS PRN 11/26/20 Reported Mylanta Maximum Strength Liq (Mag Hydrox/Aluminum Hyd/Simeth) 355 Ml Oral.susp 30 Ml PO PRN PRN 11/26/20 Reported Ativan (Lorazepam) 0.5 Mg Tablet 0.5 Mg PO Q8HRS PRN 11/26/20 Reported Ibu (Ibuprofen) 400 Mg Tablet 1 Tab PO Q6HRS PRN 5 11/26/20 Reported NEEDED FOR PAIN Wellbutrin Xl (Bupropion Hcl) 150 Mg Tab.er.24h 150 Mg PO DAILY 10/31/20 Reported Artificial Tears Drops (Peg 400/Hypromellose/Glycerin) 15 Ml Drops 1 Drop OS QID 30 10/31/20 Reported Folic Acid 0.4 Mg Tablet 0.4 Mg PO DAILY 10/31/20 Reported Duoneb 0.5-3(2.5) Mg/3 Ml (Albuterol/Ipratropium) 3 Ml Ampul.neb 3 Ml NEB Q4HRS 10/31/20 Reported Clonidine Hcl 0.2 Mg Tablet 0.2 Mg PO TID 10/31/20 Reported Multiple Vitamins (Multivitamin) 1 Each Tablet 1 Tab PO DAILY 30 10/31/20 Reported Miralax (Polyethylene Glycol 3350) 17 Gm Powd.pack 1 Packet PO DAILY 2 10/31/20 Reported dissolve in water Famotidine 20 Mg Tablet 20 Mg PO HS 10/31/20 Reported Zofran (Ondansetron Hcl) 4 Mg Tablet 4 Mg PO Q8HRS PRN 12/02/19 Reported Polyvinyl Alcohol 15 Ml Drops 2 Drop EACHEYE Q4HRS 30 12/02/19 Reported Ropinirole Hcl 1 Mg Tablet 1 Mg PO BID 12/02/19 Reported Magnesium Oxide 400 Mg Tablet 400 Mg PO DAILY 12/02/19 Reported Loratadine 10 Mg Tablet 10 Mg PO DAILY 12/02/19 Reported Humalog (Insulin Lispro) 100 Unit/1 Ml Vial 0 SQ BIDWMEALS 12/02/19 Reported 70 - 150 0 units 151 - 200 0 units 201 - 250 2 units 251 - 300 3 units 301 - 349 4 units if FSBS is under 70 or 350 and over call MD [guaifenesin Syrup] 10 Ml PO Q4HRS PRN 12/02/19 Reported Coreg (Carvedilol) 25 Mg Tablet 50 Mg PO BIDWMEALS 12/02/19 Reported Peridex (Chlorhexidine Gluconate) 15 Ml Mouthwash 15 Ml PO BID 30 12/02/19 Reported Swish in mouth for 30 seconds then spit out Calcium Carbonate 500 Mg Tablet 500 Mg PO Q4HRS 12/02/19 Reported Atorvastatin Calcium 10 Mg Tablet 10 Mg PO HS 12/02/19 Reported Acetaminophen 325 Mg Tablet 650 Mg PO Q6HRS 12/02/19 Reported Metformin Hcl 500 Mg Tablet 250 Mg PO BIDWMEALS 12/03/18 Reported Imodium A-D (Loperamide HCl) 2 Mg Capsule 2 Mg PO DAILY PRN 12/03/18 Reported Risperidone 0.5 Mg Tablet 0.5 Mg PO AFTRNOON 03/21/18 Reported Levothyroxine Sodium 112 Mcg Tablet 1 Tab PO DAILY 03/21/18 Reported Advair 500-50 Diskus (Fluticasone/Salmeterol) 1 Each Disk.w.dev 1 Puff IH BID 03/21/18 Reported Nystatin 15 Gm Powder 1 Scott TP PRN BID PRN 03/21/18 Reported Clonazepam (Clonazepam) 0.5 Mg Tablet 1 Tab PO BID 09/30/16 Reported Gas-X (Simethicone) 80 Mg Tab.chew 160 Mg PO Q2HR PRN 02/18/16 Reported Gabapentin (Gabapentin) 100 Mg Capsule 100 Mg PO TID 02/18/16 Reported Impression . IMPRESSION: 1. [id number] hypercapnic respiratory failure secondary to acute exacerbation of chronic obstructive pulmonary disease. Could have been contributed to by effect of benzodiazepine. She was also noted to be off of her oxygen at the skilled care facility and may have triggered her hypoxia. 2. No new infiltrates. 3. Anemia. 4. Chronic kidney disease. 5. Encephalopathy secondary to hypercapnia, now improving. 6. Severe protein-calorie malnutrition. 7. Toxic encephalopathy, improved. Plan . RECOMMENDATIONS: Continue supplemental oxygen to keep sats above 92%, remains on 4 liters N/C Continue BIPAP at night and with dayt time napping Avoid benzo use as much as possible Monitor HGB PRN nebs Follow speech recs -- currently on dysphasia I diet PT/OT DVT/GI PPX D/w MERRY MARTIN MD Dec 05, 2020 10:32
[2020-12-05 11:00] VITALS: BP 155/89
[2020-12-05 11:16] LABS: BASO # 0.1 x10^3/uL (0.0-0.2); BASO % 1 % (0-3); EOS # 0.3 x10^3/uL (0.0-0.7); EOS % 3 % (0-3); HEMATOCRIT 29.2 % (36.0-47.0); HEMOGLOBIN 9.3 g/dL (12.0-15.5); LYMPH # 1.2 x10^3/uL (1.0-4.8); LYMPH % 14 % (24-48); MEAN CORPUSCULAR HEMOGLOBIN 31 pg (25-35); MEAN CORPUSCULAR HGB CONC 32 g/dL (31-37); MEAN CORPUSCULAR VOLUME 96 fL (79-100); MONO # 0.8 x10^3/uL (0.0-1.1); MONO % 10 % (0-9); NEUT # 6.2 x10^3/uL (1.8-7.7); NEUT % 72 % (31-73); PLATELET COUNT 155 x10^3/uL (140-400); RED BLOOD COUNT 3.03 x10^6/uL (3.50-5.40); RED CELL DISTRIBUTION WIDTH 18.9 % (11.5-14.5); WHITE BLOOD COUNT 8.6 x10^3/uL (4.0-11.0)
--- NOTE | 2020-12-05 11:34 | NUR ---
SS following up with discharge planning. SS reviewed pt chart and discussed with pt RN. Pt is LTC resident from [facility], ; fax [phone]. COVID19 recovered. PT/OT recommended nursing home unit. Pt is currently requiring oxygen at four liters nasal canula. Pt received one unit of blood yesterday. Per RN, pt's oxygen sats dropping below 80 when sitting on edge of bed on four liters of oxygen. Pt is able to return to facility when medically stable. SS will continue to follow for discharge planning.
--- NOTE | 2020-12-05 13:52 | PDOC ---
PROGRESS NOTES Date of Service: DATE: 12/05/20 TIME: 13:51 Chief Complaint Chief Complaint acute Toxic encephalopathy with overuse of benzodiazepenes, with underlying anxiety, depression, schizoaffective disorder. recent acute hypoxic respiratory failure from pneumonia, covid, stable from [place] possible aspiration pneumonia RECENT Fall - ct head negative, no other pain complaints, no fracture chronic systolic CHF s/p AICD , last EF 45% History of DVT bilateral legs Obesity BMI 35 Schizophrenia - Hypertension. 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 Vitals Vitals Vital Signs Date Time Temp Pulse Resp B/P (MAP) Pulse Ox O2 Delivery O2 Flow Rate FiO2 12/05/20 11:00 97.3 102 27 155/89 (111) 94 BiPAP/CPAP 97.3 12/05/20 08:00 4.0 Physical Exam General: Alert, Cooperative, No acute distress, Other Heart: Regular rate Lungs: Clear Abdomen: Normal bowel sounds, Soft Extremities: No cyanosis, No edema Skin: No breakdown Labs LABS Laboratory Tests Test 12/04/20 17:05 12/04/20 20:25 12/05/20 07:34 12/05/20 09:35 Glucose (Fingerstick) 119 mg/dL (70-99) 133 mg/dL (70-99) 120 mg/dL (70-99) Sodium Level 135 mmol/L (136-145) Potassium Level 3.8 mmol/L (3.5-5.1) Chloride Level 101 mmol/L (98-107) Carbon Dioxide Level 28 mmol/L (21-32) Anion Gap 6 (6-14) Blood Urea Nitrogen 19 mg/dL (7-20) Creatinine 2.3 mg/dL (0.6-1.0) Estimated GFR (Cockcroft-Gault) 26.3 Glucose Level 132 mg/dL (70-99) Calcium Level 7.4 mg/dL (8.5-10.1) Test 12/05/20 11:00 White Blood Count 8.6 x10^3/uL (4.0-11.0) Red Blood Count 3.03 x10^6/uL (3.50-5.40) Hemoglobin 9.3 g/dL (12.0-15.5) Hematocrit 29.2 % (36.0-47.0) Mean Corpuscular Volume 96 fL (79-100) Mean Corpuscular Hemoglobin 31 pg (25-35) Mean Corpuscular Hemoglobin Concent 32 g/dL (31-37) Red Cell Distribution Width 18.9 % (11.5-14.5) Platelet Count 155 x10^3/uL (140-400) Neutrophils (%) (Auto) 72 % (31-73) Lymphocytes (%) (Auto) 14 % (24-48) Monocytes (%) (Auto) 10 % (0-9) Eosinophils (%) (Auto) 3 % (0-3) Basophils (%) (Auto) 1 % (0-3) Neutrophils # (Auto) 6.2 x10^3/uL (1.8-7.7) Lymphocytes # (Auto) 1.2 x10^3/uL (1.0-4.8) Monocytes # (Auto) 0.8 x10^3/uL (0.0-1.1) Eosinophils # (Auto) 0.3 x10^3/uL (0.0-0.7) Basophils # (Auto) 0.1 x10^3/uL (0.0-0.2) Assessment and Plan Assessmemt and Plan Problems Medical Problems: (1) Acute on chronic respiratory failure Status: Acute (2) Altered mental status Status: Acute Comment Review of Relevant I have reviewed the following items lucas (where applicable) has been applied. Labs Laboratory Tests Test 12/03/20 14:15 12/03/20 14:25 12/03/20 18:03 12/03/20 20:49 White Blood Count 10.1 x10^3/uL (4.0-11.0) Red Blood Count 2.60 x10^6/uL (3.50-5.40) Hemoglobin 7.9 g/dL (12.0-15.5) Hematocrit 25.3 % (36.0-47.0) Mean Corpuscular Volume 97 fL (79-100) Mean Corpuscular Hemoglobin 30 pg (25-35) Mean Corpuscular Hemoglobin Concent 31 g/dL (31-37) Red Cell Distribution Width 18.8 % (11.5-14.5) Platelet Count 168 x10^3/uL (140-400) Neutrophils (%) (Auto) 67 % (31-73) Lymphocytes (%) (Auto) 21 % (24-48) Monocytes (%) (Auto) 9 % (0-9) Eosinophils (%) (Auto) 2 % (0-3) Basophils (%) (Auto) 1 % (0-3) Neutrophils # (Auto) 6.8 x10^3/uL (1.8-7.7) Lymphocytes # (Auto) 2.1 x10^3/uL (1.0-4.8) Monocytes # (Auto) 0.9 x10^3/uL (0.0-1.1) Eosinophils # (Auto) 0.2 x10^3/uL (0.0-0.7) Basophils # (Auto) 0.1 x10^3/uL (0.0-0.2) O2 Saturation 92 % (92-99) 90 % (92-99) Arterial Blood pH 7.31 (7.35-7.45) 7.29 (7.35-7.45) Arterial Blood pCO2 at Patient Temp 56 mmHg (35-46) 63 mmHg (35-46) Arterial Blood pO2 at Patient Temp 74 mmHg (65-108) 67 mmHg (65-108) Arterial Blood HCO3 28 mmol/L (21-28) 29 mmol/L (21-28) Arterial Blood Base Excess 1 mmol/L (-3-3) 2 mmol/L (-3-3) FiO2 28/2lnc 28/2lnc Sodium Level 137 mmol/L (136-145) Potassium Level 4.8 mmol/L (3.5-5.1) Chloride Level 100 mmol/L (98-107) Carbon Dioxide Level 32 mmol/L (21-32) Anion Gap 5 (6-14) Blood Urea Nitrogen 25 mg/dL (7-20) Creatinine 2.9 mg/dL (0.6-1.0) Estimated GFR (Cockcroft-Gault) 20.1 BUN/Creatinine Ratio 9 (6-20) Glucose Level 119 mg/dL (70-99) Lactic Acid Level 1.5 mmol/L (0.4-2.0) Calcium Level 8.4 mg/dL (8.5-10.1) Total Bilirubin 0.3 mg/dL (0.2-1.0) Aspartate Amino Transf (AST/SGOT) 20 U/L (15-37) Alanine Aminotransferase (ALT/SGPT) 12 U/L (14-59) Alkaline Phosphatase 105 U/L (46-116) Troponin I Quantitative 0.029 ng/mL (0.000-0.055) Total Protein 6.6 g/dL (6.4-8.2) Albumin 2.1 g/dL (3.4-5.0) Albumin/Globulin Ratio 0.5 (1.0-1.7) Urine Collection Type U cath Urine Color Yellow Urine Clarity Clear Urine pH 6.5 (<5.0-8.0) Urine Specific [employer] 1.020 (1.000-1.030) Urine Protein >=300 mg/dL (NEG-TRACE) Urine Glucose (UA) Negative mg/dL (NEG) Urine Ketones (Stick) Trace mg/dL (NEG) Urine Blood Negative (NEG) Urine Nitrite Negative (NEG) Urine Bilirubin Negative (NEG) Urine Urobilinogen Dipstick 0.2 mg/dL (0.2 mg/dL) Urine Leukocyte Esterase Negative (NEG) Urine RBC Occ /HPF (0-2) Urine WBC 1-4 /HPF (0-4) Urine Bacteria 0 /HPF (0-FEW) Urine Hyaline Casts Moderate /HPF Urine Mucus Mod /LPF Glucose (Fingerstick) 76 mg/dL (70-99) Test 12/03/20 21:00 12/04/20 06:05 12/04/20 07:37 12/04/20 11:44 O2 Saturation 95 % (92-99) Arterial Blood pH 7.33 (7.35-7.45) Arterial Blood pCO2 at Patient Temp 50 mmHg (35-46) Arterial Blood pO2 at Patient Temp 87 mmHg (65-108) Arterial Blood pO2 (Temp corrected) mmHg Arterial Blood HCO3 26 mmol/L (21-28) Arterial Blood Base Excess 0 mmol/L (-3-3) FiO2 50 White Blood Count 8.1 x10^3/uL (4.0-11.0) Red Blood Count 2.28 x10^6/uL (3.50-5.40) Hemoglobin 7.0 g/dL (12.0-15.5) Hematocrit 22.1 % (36.0-47.0) Mean Corpuscular Volume 97 fL (79-100) Mean Corpuscular Hemoglobin 31 pg (25-35) Mean Corpuscular Hemoglobin Concent 32 g/dL (31-37) Red Cell Distribution Width 18.6 % (11.5-14.5) Platelet Count 144 x10^3/uL (140-400) Neutrophils (%) (Auto) 68 % (31-73) Lymphocytes (%) (Auto) 18 % (24-48) Monocytes (%) (Auto) 9 % (0-9) Eosinophils (%) (Auto) 4 % (0-3) Basophils (%) (Auto) 1 % (0-3) Neutrophils # (Auto) 5.5 x10^3/uL (1.8-7.7) Lymphocytes # (Auto) 1.5 x10^3/uL (1.0-4.8) Monocytes # (Auto) 0.7 x10^3/uL (0.0-1.1) Eosinophils # (Auto) 0.3 x10^3/uL (0.0-0.7) Basophils # (Auto) 0.1 x10^3/uL (0.0-0.2) Sodium Level 143 mmol/L (136-145) Potassium Level 4.4 mmol/L (3.5-5.1) Chloride Level 99 mmol/L (98-107) Carbon Dioxide Level 31 mmol/L (21-32) Anion Gap 13 (6-14) Blood Urea Nitrogen 24 mg/dL (7-20) Creatinine 2.7 mg/dL (0.6-1.0) Estimated GFR (Cockcroft-Gault) 21.8 BUN/Creatinine Ratio 9 (6-20) Glucose Level 80 mg/dL (70-99) Calcium Level 7.9 mg/dL (8.5-10.1) Total Bilirubin 0.3 mg/dL (0.2-1.0) Aspartate Amino Transf (AST/SGOT) 32 U/L (15-37) Alanine Aminotransferase (ALT/SGPT) 13 U/L (14-59) Alkaline Phosphatase 92 U/L (46-116) Total Protein 5.9 g/dL (6.4-8.2) Albumin 1.9 g/dL (3.4-5.0) Albumin/Globulin Ratio 0.5 (1.0-1.7) Glucose (Fingerstick) 100 mg/dL (70-99) 114 mg/dL (70-99) Test 12/04/20 12:10 12/04/20 17:05 12/04/20 20:25 12/05/20 07:34 O2 Saturation 89 % (92-99) Arterial Blood pH 7.36 (7.35-7.45) Arterial Blood pCO2 at Patient Temp 57 mmHg (35-46) Arterial Blood pO2 at Patient Temp 59 mmHg (65-108) Arterial Blood HCO3 32 mmol/L (21-28) Arterial Blood Base Excess 5 mmol/L (-3-3) FiO2 4l nc Glucose (Fingerstick) 119 mg/dL (70-99) 133 mg/dL (70-99) 120 mg/dL (70-99) Test 12/05/20 09:35 12/05/20 11:00 Sodium Level 135 mmol/L (136-145) Potassium Level 3.8 mmol/L (3.5-5.1) Chloride Level 101 mmol/L (98-107) Carbon Dioxide Level 28 mmol/L (21-32) Anion Gap 6 (6-14) Blood Urea Nitrogen 19 mg/dL (7-20) Creatinine 2.3 mg/dL (0.6-1.0) Estimated GFR (Cockcroft-Gault) 26.3 Glucose Level 132 mg/dL (70-99) Calcium Level 7.4 mg/dL (8.5-10.1) White Blood Count 8.6 x10^3/uL (4.0-11.0) Red Blood Count 3.03 x10^6/uL (3.50-5.40) Hemoglobin 9.3 g/dL (12.0-15.5) Hematocrit 29.2 % (36.0-47.0) Mean Corpuscular Volume 96 fL (79-100) Mean Corpuscular Hemoglobin 31 pg (25-35) Mean Corpuscular Hemoglobin Concent 32 g/dL (31-37) Red Cell Distribution Width 18.9 % (11.5-14.5) Platelet Count 155 x10^3/uL (140-400) Neutrophils (%) (Auto) 72 % (31-73) Lymphocytes (%) (Auto) 14 % (24-48) Monocytes (%) (Auto) 10 % (0-9) Eosinophils (%) (Auto) 3 % (0-3) Basophils (%) (Auto) 1 % (0-3) Neutrophils # (Auto) 6.2 x10^3/uL (1.8-7.7) Lymphocytes # (Auto) 1.2 x10^3/uL (1.0-4.8) Monocytes # (Auto) 0.8 x10^3/uL (0.0-1.1) Eosinophils # (Auto) 0.3 x10^3/uL (0.0-0.7) Basophils # (Auto) 0.1 x10^3/uL (0.0-0.2) Laboratory Tests Test 12/04/20 17:05 12/04/20 20:25 12/05/20 07:34 12/05/20 09:35 Glucose (Fingerstick) 119 mg/dL (70-99) 133 mg/dL (70-99) 120 mg/dL (70-99) Sodium Level 135 mmol/L (136-145) Potassium Level 3.8 mmol/L (3.5-5.1) Chloride Level 101 mmol/L (98-107) Carbon Dioxide Level 28 mmol/L (21-32) Anion Gap 6 (6-14) Blood Urea Nitrogen 19 mg/dL (7-20) Creatinine 2.3 mg/dL (0.6-1.0) Estimated GFR (Cockcroft-Gault) 26.3 Glucose Level 132 mg/dL (70-99) Calcium Level 7.4 mg/dL (8.5-10.1) Test 12/05/20 11:00 White Blood Count 8.6 x10^3/uL (4.0-11.0) Red Blood Count 3.03 x10^6/uL (3.50-5.40) Hemoglobin 9.3 g/dL (12.0-15.5) Hematocrit 29.2 % (36.0-47.0) Mean Corpuscular Volume 96 fL (79-100) Mean Corpuscular Hemoglobin 31 pg (25-35) Mean Corpuscular Hemoglobin Concent 32 g/dL (31-37) Red Cell Distribution Width 18.9 % (11.5-14.5) Platelet Count 155 x10^3/uL (140-400) Neutrophils (%) (Auto) 72 % (31-73) Lymphocytes (%) (Auto) 14 % (24-48) Monocytes (%) (Auto) 10 % (0-9) Eosinophils (%) (Auto) 3 % (0-3) Basophils (%) (Auto) 1 % (0-3) Neutrophils # (Auto) 6.2 x10^3/uL (1.8-7.7) Lymphocytes # (Auto) 1.2 x10^3/uL (1.0-4.8) Monocytes # (Auto) 0.8 x10^3/uL (0.0-1.1) Eosinophils # (Auto) 0.3 x10^3/uL (0.0-0.7) Basophils # (Auto) 0.1 x10^3/uL (0.0-0.2) Microbiology 12/03/20 Blood Culture - Preliminary, Resulted NO GROWTH AFTER 1 DAY Medications Current Medications Sodium Chloride 1,000 ml @ 1,000 mls/hr 1X ONCE IV Last administered on 12/03/20at 14:38; Start 12/03/20 at 14:45; Stop 12/03/20 at 15:44; Status DC Acetaminophen (Tylenol) 650 mg Q6HRS PO Last administered on 12/04/20at 06:53; Start 12/04/20 at 00:00; Stop 12/04/20 at 09:09; Status DC Atorvastatin Calcium (Lipitor) 10 mg HS PO Last administered on 12/04/20at 20:28; Start 12/03/20 at 21:00 Bupropion HCl (Wellbutrin Xl) 150 mg DAILY PO Last administered on 12/05/20at 08:34; Start 12/04/20 at 09:00 Calcium Carbonate/ Glycine (Oscal) 500 mg PRN Q4HRS PRN PO GI SYMPTOMS; Start 12/03/20 at 20:00 Famotidine (Pepcid) 20 mg HS PO Last administered on 12/04/20at 20:28; Start 12/03/20 at 21:00 Gabapentin (Neurontin) 100 mg TID PO Last administered on 12/05/20at 08:34; Start 12/03/20 at 21:00 Ibuprofen (Motrin) 400 mg PRN Q6HRS PRN PO PAIN; Start 12/03/20 at 18:45 Levothyroxine Sodium (Synthroid) 112 mcg DAILY07 PO Last administered on 12/05/20at 05:52; Start 12/04/20 at 07:00 Al Hydroxide/Mg Hydroxide (Mylanta Plus Xs) 30 ml PRN Q12HR PRN PO UPSET STOMACH; Start 12/03/20 at 18:45 Polyethylene Glycol (miraLAX PACKET) 17 gm DAILY PO ; Start 12/04/20 at 09:00 Dextrose/Sodium Chloride 1,000 ml @ 100 mls/hr Q10H IV Last administered on 12/05/20at 05:53; Start 12/03/20 at 19:00 Insulin Human Lispro (HumaLOG) 0-7 UNITS TIDWMEALS SQ ; Start 12/04/20 at 12:00 Dextrose (Dextrose 50%-Water Syringe) 12.5 gm PRN Q15MIN PRN IV SEE COMMENTS; Start 12/04/20 at 09:15 Acetaminophen (Tylenol) 650 mg PRN Q6HRS PRN PO pain; Start 12/04/20 at 09:15 Clonazepam (KlonoPIN) 0.5 mg BID PO ; Start 12/04/20 at 21:00; Stop 12/04/20 at 13:03; Status DC Lorazepam (Ativan) 0.5 mg PRN Q8HRS PRN PO ANXIETY; Start 12/04/20 at 09:15 Ropinirole HCl (Requip) 1 mg BID PO Last administered on 12/05/20at 08:34; Start 12/04/20 at 10:00 Clonazepam (KlonoPIN) 0.5 mg QHS PO Last administered on 12/04/20at 20:28; Start 12/04/20 at 21:00 Cyanocobalamin (Vitamin B-12) 1,000 mcg 1X ONCE IM Last administered on 12/04/20at 15:11; Start 12/04/20 at 14:00; Stop 12/04/20 at 14:01; Status DC Estrogens Conjugated (Premarin) 0.625 mg 1X ONCE PO ; Start 12/05/20 at 10:30; Stop 12/05/20 at 10:36; Status DC Estrogens Conjugated (Premarin) 0.3 mg DAILY PO ; Start 12/06/20 at 09:00 Active Scripts Active Reported Tramadol Hcl 50 Mg Tablet 50 Mg PO Q6HRS PRN Mylanta Maximum Strength Liq (Mag Hydrox/Aluminum Hyd/Simeth) 355 Ml Oral.susp 30 Ml PO PRN PRN Ativan (Lorazepam) 0.5 Mg Tablet 0.5 Mg PO Q8HRS PRN Ibu (Ibuprofen) 400 Mg Tablet 1 Tab PO Q6HRS PRN 5 Days NEEDED FOR PAIN Wellbutrin Xl (Bupropion Hcl) 150 Mg Tab.er.24h 150 Mg PO DAILY Artificial Tears Drops (Peg 400/Hypromellose/Glycerin) 15 Ml Drops 1 Drop OS QID 30 Days Folic Acid 0.4 Mg Tablet 0.4 Mg PO DAILY Duoneb 0.5-3(2.5) Mg/3 Ml (Albuterol/Ipratropium) 3 Ml Ampul.neb 3 Ml NEB Q4HRS Clonidine Hcl 0.2 Mg Tablet 0.2 Mg PO TID Multiple Vitamins (Multivitamin) 1 Each Tablet 1 Tab PO DAILY 30 Days Miralax (Polyethylene Glycol 3350) 17 Gm Powd.pack 1 Packet PO DAILY 2 Days dissolve in water Famotidine 20 Mg Tablet 20 Mg PO HS Zofran (Ondansetron Hcl) 4 Mg Tablet 4 Mg PO Q8HRS PRN Polyvinyl Alcohol 15 Ml Drops 2 Drop EACHEYE Q4HRS 30 Days Ropinirole Hcl 1 Mg Tablet 1 Mg PO BID Magnesium Oxide 400 Mg Tablet 400 Mg PO DAILY Loratadine 10 Mg Tablet 10 Mg PO DAILY Humalog (Insulin Lispro) 100 Unit/1 Ml Vial 0 SQ BIDWMEALS 70 - 150 0 units 151 - 200 0 units 201 - 250 2 units 251 - 300 3 units 301 - 349 4 units if FSBS is under 70 or 350 and over call MD [guaifenesin Syrup] 10 Ml PO Q4HRS PRN Coreg (Carvedilol) 25 Mg Tablet 50 Mg PO BIDWMEALS Peridex (Chlorhexidine Gluconate) 15 Ml Mouthwash 15 Ml PO BID 30 Days Swish in mouth for 30 seconds then spit out Calcium Carbonate 500 Mg Tablet 500 Mg PO Q4HRS Atorvastatin Calcium 10 Mg Tablet 10 Mg PO HS Acetaminophen 325 Mg Tablet 650 Mg PO Q6HRS Metformin Hcl 500 Mg Tablet 250 Mg PO BIDWMEALS Imodium A-D (Loperamide HCl) 2 Mg Capsule 2 Mg PO DAILY PRN Risperidone 0.5 Mg Tablet 0.5 Mg PO AFTRNOON Levothyroxine Sodium 112 Mcg Tablet 1 Tab PO DAILY Advair 500-50 Diskus (Fluticasone/Salmeterol) 1 Each Disk.w.dev 1 Puff IH BID Nystatin 15 Gm Powder 1 Scott TP PRN BID PRN Clonazepam (Clonazepam) 0.5 Mg Tablet 1 Tab PO BID Gas-X (Simethicone) 80 Mg Tab.chew 160 Mg PO Q2HR PRN Gabapentin (Gabapentin) 100 Mg Capsule 100 Mg PO TID Vitals/I & O Vital Sign - Last 24 Hours 12/04/20 12/04/20 12/04/20 12/04/20 14:37 19:23 19:33 20:58 Temp 98.4 98.2 98.4 98.2 Pulse 92 Resp 18 18 B/P (MAP) 161/91 (114) 155/88 (110) Pulse Ox 91 92 100 O2 Delivery Nasal Cannula Nasal Cannula Nasal Cannula BiPAP/CPAP O2 Flow Rate 4.0 4.0 4.0 12/04/20 12/05/20 12/05/20 12/05/20 22:39 00:38 02:55 04:20 Temp 97.3 98.0 97.3 98.0 Pulse 80 86 Resp 22 24 B/P (MAP) 139/90 (106) 141/87 (105) Pulse Ox 100 99 100 100 O2 Delivery BiPAP/CPAP BiPAP/CPAP BiPAP/CPAP BiPAP/CPAP 12/05/20 12/05/20 12/05/20 12/05/20 07:00 07:20 08:00 11:00 Temp 98.1 97.3 98.1 97.3 Pulse 93 102 Resp 20 27 B/P (MAP) 144/94 (111) 155/89 (111) Pulse Ox 92 92 94 O2 Delivery Nasal Cannula Nasal Cannula Nasal Cannula BiPAP/CPAP O2 Flow Rate 5.0 4.0 4.0 Intake and Output 12/04/20 12/04/20 12/05/20 15:00 23:00 07:00 Intake Total 400 ml 1240 ml 20 ml Output Total 400 ml Balance 400 ml 1240 ml -380 ml Justicifation of Admission Dx: Justifications for Admission: Justification of Admission Dx: Yes HOMER BREEN MD Dec 05, 2020 13:52
[2020-12-05 15:00] VITALS: BP 155/91
[2020-12-05 16:11] LABS: % BANDS 3 % (0-9); % EOS 2 % (0-5); % LYMPHS 16 % (24-48); % MONOS 7 % (0-10)
[2020-12-05 16:12] LABS: % MYELOS 1 % (0-0); % SEGS 71 % (35-66)
[2020-12-05 16:13] LABS: ANISOCYTOSIS MOD; PLT ESTIMATE ADEQUATE (ADEQUATE); POLYCHROMASIA MOD
[2020-12-05 19:11] VITALS: BP 141/83
[2020-12-05] MEDS: GABAPENTIN 300 MG CAPSULE. PO SCH (20:19)
[2020-12-05] MEDS: FAMOTIDINE 20 MG TABLET. PO SCH (20:19)
[2020-12-05] MEDS: clonazePAM 0.5 MG TABLET PO SCH (20:20)
[2020-12-05] MEDS: ATORVASTATIN CALCIUM 10 MG TABLET. PO SCH (20:20)
[2020-12-05 22:07] VITALS: BP 119/77
[2020-12-06] VITALS (7 sets, daily range): BP systolic 143–183; BP diastolic 85–105
[2020-12-06] MEDS: INSULIN LISPRO 300 UNITS/3 ML VIAL. SQ SCH ×3 (08:00→17:00)
[2020-12-06 08:47] LABS: BASO # 0.1 x10^3/uL (0.0-0.2); BASO % 1 % (0-3); EOS # 0.2 x10^3/uL (0.0-0.7); EOS % 2 % (0-3); HEMATOCRIT 27.5 % (36.0-47.0); HEMOGLOBIN 8.9 g/dL (12.0-15.5); LYMPH # 1.6 x10^3/uL (1.0-4.8); LYMPH % 18 % (24-48); MEAN CORPUSCULAR HEMOGLOBIN 31 pg (25-35); MEAN CORPUSCULAR HGB CONC 32 g/dL (31-37); MEAN CORPUSCULAR VOLUME 96 fL (79-100); MONO # 0.8 x10^3/uL (0.0-1.1); MONO % 9 % (0-9); NEUT # 6.4 x10^3/uL (1.8-7.7); NEUT % 71 % (31-73); PLATELET COUNT 121 x10^3/uL (140-400); RED BLOOD COUNT 2.88 x10^6/uL (3.50-5.40); RED CELL DISTRIBUTION WIDTH 19.2 % (11.5-14.5)
[2020-12-06] MEDS: POLYETHYLENE GLYCOL 3350 17 GM PACKET. PO SCH (09:00)
[2020-12-06] MEDS: rOPINIRole 1 MG TABLET. PO SCH ×2 (09:36→20:40)
[2020-12-06] MEDS: buPROPion XL 150 MG TAB.ER.24H. PO SCH (09:36)
[2020-12-06] MEDS: ESTROGENS, CONJUGATED 0.3 MG TABLET PO SCH (09:36)
[2020-12-06] MEDS: LEVOTHYROXINE 112 MCG TABLET PO SCH (09:36)
[2020-12-06 09:50] LABS: ALBUMIN 1.7 g/dL (3.4-5.0); ALBUMIN/GLOBULIN RATIO 0.4 (1.0-1.7); CALCIUM 7.4 mg/dL (8.5-10.1); CREATININE 2.4 mg/dL (0.6-1.0); POTASSIUM 4.1 mmol/L (3.5-5.1); TOTAL BILIRUBIN 0.3 mg/dL (0.2-1.0)
[2020-12-06] MEDS: CIPROFLOXACIN 0.3% OPHTH SOLUTION 5ML BOTTLE. OU SCH ×3 (10:09→21:00)
--- NOTE | 2020-12-06 10:44 | NUR ---
SS following up with discharge planning. SS reviewed pt chart and discussed with pt RN. Pt was on BIPAP but now is on nasal canula oxygen at five liters. Oxygen sat's being monitored. Per RN, pt needing BIPAP at HS and PRN. COVID19 recovered. Pt has pink eye now. PT/OT recommended intermediate unit. Pt is LTC resident from [facility], ; fax [phone], and is able to return when medically stable. SS phoned and faxed clinical updates to [place]. SS will continue to follow for discharge planning.
--- NOTE | 2020-12-06 10:58 | PDOC ---
PULMONARY PROGRESS NOTES DATE: 12/06/20 TIME: 10:56 Subjective Remains on BIPAP this am at 40% nursing reports some hypoxia on 4 liters N/C no increased cough or SOA Vitals Vital Signs Date Time Temp Pulse Resp B/P (MAP) Pulse Ox O2 Delivery O2 Flow Rate FiO2 12/06/20 07:55 Bi-pap 12/06/20 07:00 98.7 100 20 143/88 (106) 96 98.7 12/05/20 20:00 4.0 ROS: No Nausea, No Chest Pain, No Abdominal Pain, No Increase Cough General: Alert, Oriented X4 Lungs: Clear Cardiovascular: S1, S2 Abdomen: Soft, Non-tender Neuro Exam: Alert, Oriented Extremities: No Edema Skin: Warm, Dry Labs Laboratory Tests Test 12/04/20 11:44 12/04/20 12:10 12/04/20 17:05 12/04/20 20:25 Glucose (Fingerstick) 114 mg/dL (70-99) 119 mg/dL (70-99) 133 mg/dL (70-99) O2 Saturation 89 % (92-99) Arterial Blood pH 7.36 (7.35-7.45) Arterial Blood pCO2 at Patient Temp 57 mmHg (35-46) Arterial Blood pO2 at Patient Temp 59 mmHg (65-108) Arterial Blood HCO3 32 mmol/L (21-28) Arterial Blood Base Excess 5 mmol/L (-3-3) FiO2 4l nc Test 12/05/20 07:34 12/05/20 09:35 12/05/20 11:00 12/05/20 17:15 Glucose (Fingerstick) 120 mg/dL (70-99) 126 mg/dL (70-99) Sodium Level 135 mmol/L (136-145) Potassium Level 3.8 mmol/L (3.5-5.1) Chloride Level 101 mmol/L (98-107) Carbon Dioxide Level 28 mmol/L (21-32) Anion Gap 6 (6-14) Blood Urea Nitrogen 19 mg/dL (7-20) Creatinine 2.3 mg/dL (0.6-1.0) Estimated GFR (Cockcroft-Gault) 26.3 Glucose Level 132 mg/dL (70-99) Calcium Level 7.4 mg/dL (8.5-10.1) White Blood Count 8.6 x10^3/uL (4.0-11.0) Red Blood Count 3.03 x10^6/uL (3.50-5.40) Hemoglobin 9.3 g/dL (12.0-15.5) Hematocrit 29.2 % (36.0-47.0) Mean Corpuscular Volume 96 fL (79-100) Mean Corpuscular Hemoglobin 31 pg (25-35) Mean Corpuscular Hemoglobin Concent 32 g/dL (31-37) Red Cell Distribution Width 18.9 % (11.5-14.5) Platelet Count 155 x10^3/uL (140-400) Neutrophils (%) (Auto) 72 % (31-73) Lymphocytes (%) (Auto) 14 % (24-48) Monocytes (%) (Auto) 10 % (0-9) Eosinophils (%) (Auto) 3 % (0-3) Basophils (%) (Auto) 1 % (0-3) Neutrophils # (Auto) 6.2 x10^3/uL (1.8-7.7) Lymphocytes # (Auto) 1.2 x10^3/uL (1.0-4.8) Monocytes # (Auto) 0.8 x10^3/uL (0.0-1.1) Eosinophils # (Auto) 0.3 x10^3/uL (0.0-0.7) Basophils # (Auto) 0.1 x10^3/uL (0.0-0.2) Segmented Neutrophils % 71 % (35-66) Band Neutrophils % 3 % (0-9) Lymphocytes % 16 % (24-48) Monocytes % 7 % (0-10) Eosinophils % 2 % (0-5) Myelocytes % 1 % (0-0) Platelet Estimate Adequate (ADEQUATE) Polychromasia Mod Basophilic Stippling Present Anisocytosis Mod Test 12/05/20 21:24 12/06/20 07:22 12/06/20 08:25 Glucose (Fingerstick) 168 mg/dL (70-99) 128 mg/dL (70-99) White Blood Count 9.0 x10^3/uL (4.0-11.0) Red Blood Count 2.88 x10^6/uL (3.50-5.40) Hemoglobin 8.9 g/dL (12.0-15.5) Hematocrit 27.5 % (36.0-47.0) Mean Corpuscular Volume 96 fL (79-100) Mean Corpuscular Hemoglobin 31 pg (25-35) Mean Corpuscular Hemoglobin Concent 32 g/dL (31-37) Red Cell Distribution Width 19.2 % (11.5-14.5) Platelet Count 121 x10^3/uL (140-400) Neutrophils (%) (Auto) 71 % (31-73) Lymphocytes (%) (Auto) 18 % (24-48) Monocytes (%) (Auto) 9 % (0-9) Eosinophils (%) (Auto) 2 % (0-3) Basophils (%) (Auto) 1 % (0-3) Neutrophils # (Auto) 6.4 x10^3/uL (1.8-7.7) Lymphocytes # (Auto) 1.6 x10^3/uL (1.0-4.8) Monocytes # (Auto) 0.8 x10^3/uL (0.0-1.1) Eosinophils # (Auto) 0.2 x10^3/uL (0.0-0.7) Basophils # (Auto) 0.1 x10^3/uL (0.0-0.2) Sodium Level 139 mmol/L (136-145) Potassium Level 4.1 mmol/L (3.5-5.1) Chloride Level 104 mmol/L (98-107) Carbon Dioxide Level 30 mmol/L (21-32) Anion Gap 5 (6-14) Blood Urea Nitrogen 17 mg/dL (7-20) Creatinine 2.4 mg/dL (0.6-1.0) Estimated GFR (Cockcroft-Gault) 25.0 BUN/Creatinine Ratio 7 (6-20) Glucose Level 105 mg/dL (70-99) Calcium Level 7.4 mg/dL (8.5-10.1) Total Bilirubin 0.3 mg/dL (0.2-1.0) Aspartate Amino Transf (AST/SGOT) 22 U/L (15-37) Alanine Aminotransferase (ALT/SGPT) 12 U/L (14-59) Alkaline Phosphatase 104 U/L (46-116) Total Protein 6.0 g/dL (6.4-8.2) Albumin 1.7 g/dL (3.4-5.0) Albumin/Globulin Ratio 0.4 (1.0-1.7) Laboratory Tests Test 12/05/20 11:00 12/05/20 17:15 12/05/20 21:24 12/06/20 07:22 White Blood Count 8.6 x10^3/uL (4.0-11.0) Red Blood Count 3.03 x10^6/uL (3.50-5.40) Hemoglobin 9.3 g/dL (12.0-15.5) Hematocrit 29.2 % (36.0-47.0) Mean Corpuscular Volume 96 fL (79-100) Mean Corpuscular Hemoglobin 31 pg (25-35) Mean Corpuscular Hemoglobin Concent 32 g/dL (31-37) Red Cell Distribution Width 18.9 % (11.5-14.5) Platelet Count 155 x10^3/uL (140-400) Neutrophils (%) (Auto) 72 % (31-73) Lymphocytes (%) (Auto) 14 % (24-48) Monocytes (%) (Auto) 10 % (0-9) Eosinophils (%) (Auto) 3 % (0-3) Basophils (%) (Auto) 1 % (0-3) Neutrophils # (Auto) 6.2 x10^3/uL (1.8-7.7) Lymphocytes # (Auto) 1.2 x10^3/uL (1.0-4.8) Monocytes # (Auto) 0.8 x10^3/uL (0.0-1.1) Eosinophils # (Auto) 0.3 x10^3/uL (0.0-0.7) Basophils # (Auto) 0.1 x10^3/uL (0.0-0.2) Segmented Neutrophils % 71 % (35-66) Band Neutrophils % 3 % (0-9) Lymphocytes % 16 % (24-48) Monocytes % 7 % (0-10) Eosinophils % 2 % (0-5) Myelocytes % 1 % (0-0) Platelet Estimate Adequate (ADEQUATE) Polychromasia Mod Basophilic Stippling Present Anisocytosis Mod Glucose (Fingerstick) 126 mg/dL (70-99) 168 mg/dL (70-99) 128 mg/dL (70-99) Test 12/06/20 08:25 White Blood Count 9.0 x10^3/uL (4.0-11.0) Red Blood Count 2.88 x10^6/uL (3.50-5.40) Hemoglobin 8.9 g/dL (12.0-15.5) Hematocrit 27.5 % (36.0-47.0) Mean Corpuscular Volume 96 fL (79-100) Mean Corpuscular Hemoglobin 31 pg (25-35) Mean Corpuscular Hemoglobin Concent 32 g/dL (31-37) Red Cell Distribution Width 19.2 % (11.5-14.5) Platelet Count 121 x10^3/uL (140-400) Neutrophils (%) (Auto) 71 % (31-73) Lymphocytes (%) (Auto) 18 % (24-48) Monocytes (%) (Auto) 9 % (0-9) Eosinophils (%) (Auto) 2 % (0-3) Basophils (%) (Auto) 1 % (0-3) Neutrophils # (Auto) 6.4 x10^3/uL (1.8-7.7) Lymphocytes # (Auto) 1.6 x10^3/uL (1.0-4.8) Monocytes # (Auto) 0.8 x10^3/uL (0.0-1.1) Eosinophils # (Auto) 0.2 x10^3/uL (0.0-0.7) Basophils # (Auto) 0.1 x10^3/uL (0.0-0.2) Sodium Level 139 mmol/L (136-145) Potassium Level 4.1 mmol/L (3.5-5.1) Chloride Level 104 mmol/L (98-107) Carbon Dioxide Level 30 mmol/L (21-32) Anion Gap 5 (6-14) Blood Urea Nitrogen 17 mg/dL (7-20) Creatinine 2.4 mg/dL (0.6-1.0) Estimated GFR (Cockcroft-Gault) 25.0 BUN/Creatinine Ratio 7 (6-20) Glucose Level 105 mg/dL (70-99) Calcium Level 7.4 mg/dL (8.5-10.1) Total Bilirubin 0.3 mg/dL (0.2-1.0) Aspartate Amino Transf (AST/SGOT) 22 U/L (15-37) Alanine Aminotransferase (ALT/SGPT) 12 U/L (14-59) Alkaline Phosphatase 104 U/L (46-116) Total Protein 6.0 g/dL (6.4-8.2) Albumin 1.7 g/dL (3.4-5.0) Albumin/Globulin Ratio 0.4 (1.0-1.7) Medications Active Scripts Medications Dose Route/Sig Max Daily Dose Days Date Category Dose Instructions Tramadol Hcl 50 Mg Tablet 50 Mg PO Q6HRS PRN 11/26/20 Reported Mylanta Maximum Strength Liq (Mag Hydrox/Aluminum Hyd/Simeth) 355 Ml Oral.susp 30 Ml PO PRN PRN 11/26/20 Reported Ativan (Lorazepam) 0.5 Mg Tablet 0.5 Mg PO Q8HRS PRN 11/26/20 Reported Ibu (Ibuprofen) 400 Mg Tablet 1 Tab PO Q6HRS PRN 5 11/26/20 Reported NEEDED FOR PAIN Wellbutrin Xl (Bupropion Hcl) 150 Mg Tab.er.24h 150 Mg PO DAILY 10/31/20 Reported Artificial Tears Drops (Peg 400/Hypromellose/Glycerin) 15 Ml Drops 1 Drop OS QID 30 10/31/20 Reported Folic Acid 0.4 Mg Tablet 0.4 Mg PO DAILY 10/31/20 Reported Duoneb 0.5-3(2.5) Mg/3 Ml (Albuterol/Ipratropium) 3 Ml Ampul.neb 3 Ml NEB Q4HRS 10/31/20 Reported Clonidine Hcl 0.2 Mg Tablet 0.2 Mg PO TID 10/31/20 Reported Multiple Vitamins (Multivitamin) 1 Each Tablet 1 Tab PO DAILY 30 10/31/20 Reported Miralax (Polyethylene Glycol 3350) 17 Gm Powd.pack 1 Packet PO DAILY 2 10/31/20 Reported dissolve in water Famotidine 20 Mg Tablet 20 Mg PO HS 10/31/20 Reported Zofran (Ondansetron Hcl) 4 Mg Tablet 4 Mg PO Q8HRS PRN 12/02/19 Reported Polyvinyl Alcohol 15 Ml Drops 2 Drop EACHEYE Q4HRS 30 12/02/19 Reported Ropinirole Hcl 1 Mg Tablet 1 Mg PO BID 12/02/19 Reported Magnesium Oxide 400 Mg Tablet 400 Mg PO DAILY 12/02/19 Reported Loratadine 10 Mg Tablet 10 Mg PO DAILY 12/02/19 Reported Humalog (Insulin Lispro) 100 Unit/1 Ml Vial 0 SQ BIDWMEALS 12/02/19 Reported 70 - 150 0 units 151 - 200 0 units 201 - 250 2 units 251 - 300 3 units 301 - 349 4 units if FSBS is under 70 or 350 and over call [ethanaifenesin Syrup] 10 Ml PO Q4HRS PRN 12/02/19 Reported Coreg (Carvedilol) 25 Mg Tablet 50 Mg PO BIDWMEALS 12/02/19 Reported Peridex (Chlorhexidine Gluconate) 15 Ml Mouthwash 15 Ml PO BID 30 12/02/19 Reported Swish in mouth for 30 seconds then spit out Calcium Carbonate 500 Mg Tablet 500 Mg PO Q4HRS 12/02/19 Reported Atorvastatin Calcium 10 Mg Tablet 10 Mg PO HS 12/02/19 Reported Acetaminophen 325 Mg Tablet 650 Mg PO Q6HRS 12/02/19 Reported Metformin Hcl 500 Mg Tablet 250 Mg PO BIDWMEALS 12/03/18 Reported Imodium A-D (Loperamide HCl) 2 Mg Capsule 2 Mg PO DAILY PRN 12/03/18 Reported Risperidone 0.5 Mg Tablet 0.5 Mg PO AFTRNOON 03/21/18 Reported Levothyroxine Sodium 112 Mcg Tablet 1 Tab PO DAILY 03/21/18 Reported Advair 500-50 Diskus (Fluticasone/Salmeterol) 1 Each Disk.w.dev 1 Puff IH BID 03/21/18 Reported Nystatin 15 Gm Powder 1 Scott TP PRN BID PRN 03/21/18 Reported Clonazepam (Clonazepam) 0.5 Mg Tablet 1 Tab PO BID 09/30/16 Reported Gas-X (Simethicone) 80 Mg Tab.chew 160 Mg PO Q2HR PRN 02/18/16 Reported Gabapentin (Gabapentin) 100 Mg Capsule 100 Mg PO TID 02/18/16 Reported Impression . IMPRESSION: 1. [id number] hypercapnic respiratory failure secondary to acute exacerbation of chronic obstructive pulmonary disease. Could have been contributed to by effect of benzodiazepine. She was also noted to be off of her oxygen at the skilled care facility and may have triggered her hypoxia. 2. No new infiltrates. 3. Anemia. 4. Chronic kidney disease. 5. Encephalopathy secondary to hypercapnia, now improving. 6. Severe protein-calorie malnutrition. 7. Toxic encephalopathy, improved. Plan . RECOMMENDATIONS: Continue supplemental oxygen to keep sats above 92%, Continue BIPAP at night and PRN Avoid benzo/sedative medications use as much as possible Monitor HGB--improved PRN nebs Follow speech recs -- currently on dysphasia I diet PT/OT DVT/GI PPX D/W MERRY MARTIN MD Dec 06, 2020 10:58
--- NOTE | 2020-12-06 12:11 | PDOC ---
PROGRESS NOTES Date of Service: DATE: 12/06/20 TIME: 12:04 Chief Complaint Chief Complaint acute Toxic encephalopathy prob overuse of benzodiazepenes, with underlying anxiety, I have decreased the benzos and will stop, change to PRN ambien, recent acute hypoxic respiratory failure from pneumonia, covid, stable from [place] possible aspiration pneumonia RECENT Fall - ct head negative, no other pain complaints, no fracture chronic systolic CHF s/p AICD , last EF 45% History of DVT bilateral legs Obesity BMI 35 Schizophrenia - Hypertension. 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 discussed with her son by phone, he will be here today. Bipap PRN some right eye redness, no drainage, will start eye drops and cipro drops 12/05 I started estrogen/progestin today to taper the over prolifeative Endometrium that might be her anemia problem talked to the son at length yesterday will try to DC soon she is awake and getting better/stronger, , limited benzos and markedly better today, speech and PT and OT, restart rehab cont other current, I will decrease. Vitals Vitals Vital Signs Date Time Temp Pulse Resp B/P (MAP) Pulse Ox O2 Delivery O2 Flow Rate FiO2 12/06/20 11:00 98.8 108 20 151/90 (110) 90 Nasal Cannula 4.0 98.8 Physical Exam General: Alert, Cooperative, No acute distress, Other Heart: Regular rate Lungs: Clear Abdomen: Normal bowel sounds, Soft Extremities: No cyanosis, No edema Skin: No breakdown Labs LABS Laboratory Tests Test 12/05/20 17:15 12/05/20 21:24 12/06/20 07:22 12/06/20 08:25 Glucose (Fingerstick) 126 mg/dL (70-99) 168 mg/dL (70-99) 128 mg/dL (70-99) White Blood Count 9.0 x10^3/uL (4.0-11.0) Red Blood Count 2.88 x10^6/uL (3.50-5.40) Hemoglobin 8.9 g/dL (12.0-15.5) Hematocrit 27.5 % (36.0-47.0) Mean Corpuscular Volume 96 fL (79-100) Mean Corpuscular Hemoglobin 31 pg (25-35) Mean Corpuscular Hemoglobin Concent 32 g/dL (31-37) Red Cell Distribution Width 19.2 % (11.5-14.5) Platelet Count 121 x10^3/uL (140-400) Neutrophils (%) (Auto) 71 % (31-73) Lymphocytes (%) (Auto) 18 % (24-48) Monocytes (%) (Auto) 9 % (0-9) Eosinophils (%) (Auto) 2 % (0-3) Basophils (%) (Auto) 1 % (0-3) Neutrophils # (Auto) 6.4 x10^3/uL (1.8-7.7) Lymphocytes # (Auto) 1.6 x10^3/uL (1.0-4.8) Monocytes # (Auto) 0.8 x10^3/uL (0.0-1.1) Eosinophils # (Auto) 0.2 x10^3/uL (0.0-0.7) Basophils # (Auto) 0.1 x10^3/uL (0.0-0.2) Sodium Level 139 mmol/L (136-145) Potassium Level 4.1 mmol/L (3.5-5.1) Chloride Level 104 mmol/L (98-107) Carbon Dioxide Level 30 mmol/L (21-32) Anion Gap 5 (6-14) Blood Urea Nitrogen 17 mg/dL (7-20) Creatinine 2.4 mg/dL (0.6-1.0) Estimated GFR (Cockcroft-Gault) 25.0 BUN/Creatinine Ratio 7 (6-20) Glucose Level 105 mg/dL (70-99) Calcium Level 7.4 mg/dL (8.5-10.1) Total Bilirubin 0.3 mg/dL (0.2-1.0) Aspartate Amino Transf (AST/SGOT) 22 U/L (15-37) Alanine Aminotransferase (ALT/SGPT) 12 U/L (14-59) Alkaline Phosphatase 104 U/L (46-116) Total Protein 6.0 g/dL (6.4-8.2) Albumin 1.7 g/dL (3.4-5.0) Albumin/Globulin Ratio 0.4 (1.0-1.7) Assessment and Plan Assessmemt and Plan Problems Medical Problems: (1) Acute on chronic respiratory failure Status: Acute (2) Altered mental status Status: Acute Comment Review of Relevant I have reviewed the following items lucas (where applicable) has been applied. Labs Laboratory Tests Test 12/04/20 12:10 12/04/20 17:05 12/04/20 20:25 12/05/20 07:34 O2 Saturation 89 % (92-99) Arterial Blood pH 7.36 (7.35-7.45) Arterial Blood pCO2 at Patient Temp 57 mmHg (35-46) Arterial Blood pO2 at Patient Temp 59 mmHg (65-108) Arterial Blood HCO3 32 mmol/L (21-28) Arterial Blood Base Excess 5 mmol/L (-3-3) FiO2 4l nc Glucose (Fingerstick) 119 mg/dL (70-99) 133 mg/dL (70-99) 120 mg/dL (70-99) Test 12/05/20 09:35 12/05/20 11:00 12/05/20 17:15 12/05/20 21:24 Sodium Level 135 mmol/L (136-145) Potassium Level 3.8 mmol/L (3.5-5.1) Chloride Level 101 mmol/L (98-107) Carbon Dioxide Level 28 mmol/L (21-32) Anion Gap 6 (6-14) Blood Urea Nitrogen 19 mg/dL (7-20) Creatinine 2.3 mg/dL (0.6-1.0) Estimated GFR (Cockcroft-Gault) 26.3 Glucose Level 132 mg/dL (70-99) Calcium Level 7.4 mg/dL (8.5-10.1) White Blood Count 8.6 x10^3/uL (4.0-11.0) Red Blood Count 3.03 x10^6/uL (3.50-5.40) Hemoglobin 9.3 g/dL (12.0-15.5) Hematocrit 29.2 % (36.0-47.0) Mean Corpuscular Volume 96 fL (79-100) Mean Corpuscular Hemoglobin 31 pg (25-35) Mean Corpuscular Hemoglobin Concent 32 g/dL (31-37) Red Cell Distribution Width 18.9 % (11.5-14.5) Platelet Count 155 x10^3/uL (140-400) Neutrophils (%) (Auto) 72 % (31-73) Lymphocytes (%) (Auto) 14 % (24-48) Monocytes (%) (Auto) 10 % (0-9) Eosinophils (%) (Auto) 3 % (0-3) Basophils (%) (Auto) 1 % (0-3) Neutrophils # (Auto) 6.2 x10^3/uL (1.8-7.7) Lymphocytes # (Auto) 1.2 x10^3/uL (1.0-4.8) Monocytes # (Auto) 0.8 x10^3/uL (0.0-1.1) Eosinophils # (Auto) 0.3 x10^3/uL (0.0-0.7) Basophils # (Auto) 0.1 x10^3/uL (0.0-0.2) Segmented Neutrophils % 71 % (35-66) Band Neutrophils % 3 % (0-9) Lymphocytes % 16 % (24-48) Monocytes % 7 % (0-10) Eosinophils % 2 % (0-5) Myelocytes % 1 % (0-0) Platelet Estimate Adequate (ADEQUATE) Polychromasia Mod Basophilic Stippling Present Anisocytosis Mod Glucose (Fingerstick) 126 mg/dL (70-99) 168 mg/dL (70-99) Test 12/06/20 07:22 12/06/20 08:25 Glucose (Fingerstick) 128 mg/dL (70-99) White Blood Count 9.0 x10^3/uL (4.0-11.0) Red Blood Count 2.88 x10^6/uL (3.50-5.40) Hemoglobin 8.9 g/dL (12.0-15.5) Hematocrit 27.5 % (36.0-47.0) Mean Corpuscular Volume 96 fL (79-100) Mean Corpuscular Hemoglobin 31 pg (25-35) Mean Corpuscular Hemoglobin Concent 32 g/dL (31-37) Red Cell Distribution Width 19.2 % (11.5-14.5) Platelet Count 121 x10^3/uL (140-400) Neutrophils (%) (Auto) 71 % (31-73) Lymphocytes (%) (Auto) 18 % (24-48) Monocytes (%) (Auto) 9 % (0-9) Eosinophils (%) (Auto) 2 % (0-3) Basophils (%) (Auto) 1 % (0-3) Neutrophils # (Auto) 6.4 x10^3/uL (1.8-7.7) Lymphocytes # (Auto) 1.6 x10^3/uL (1.0-4.8) Monocytes # (Auto) 0.8 x10^3/uL (0.0-1.1) Eosinophils # (Auto) 0.2 x10^3/uL (0.0-0.7) Basophils # (Auto) 0.1 x10^3/uL (0.0-0.2) Sodium Level 139 mmol/L (136-145) Potassium Level 4.1 mmol/L (3.5-5.1) Chloride Level 104 mmol/L (98-107) Carbon Dioxide Level 30 mmol/L (21-32) Anion Gap 5 (6-14) Blood Urea Nitrogen 17 mg/dL (7-20) Creatinine 2.4 mg/dL (0.6-1.0) Estimated GFR (Cockcroft-Gault) 25.0 BUN/Creatinine Ratio 7 (6-20) Glucose Level 105 mg/dL (70-99) Calcium Level 7.4 mg/dL (8.5-10.1) Total Bilirubin 0.3 mg/dL (0.2-1.0) Aspartate Amino Transf (AST/SGOT) 22 U/L (15-37) Alanine Aminotransferase (ALT/SGPT) 12 U/L (14-59) Alkaline Phosphatase 104 U/L (46-116) Total Protein 6.0 g/dL (6.4-8.2) Albumin 1.7 g/dL (3.4-5.0) Albumin/Globulin Ratio 0.4 (1.0-1.7) Laboratory Tests Test 12/05/20 17:15 12/05/20 21:24 12/06/20 07:22 12/06/20 08:25 Glucose (Fingerstick) 126 mg/dL (70-99) 168 mg/dL (70-99) 128 mg/dL (70-99) White Blood Count 9.0 x10^3/uL (4.0-11.0) Red Blood Count 2.88 x10^6/uL (3.50-5.40) Hemoglobin 8.9 g/dL (12.0-15.5) Hematocrit 27.5 % (36.0-47.0) Mean Corpuscular Volume 96 fL (79-100) Mean Corpuscular Hemoglobin 31 pg (25-35) Mean Corpuscular Hemoglobin Concent 32 g/dL (31-37) Red Cell Distribution Width 19.2 % (11.5-14.5) Platelet Count 121 x10^3/uL (140-400) Neutrophils (%) (Auto) 71 % (31-73) Lymphocytes (%) (Auto) 18 % (24-48) Monocytes (%) (Auto) 9 % (0-9) Eosinophils (%) (Auto) 2 % (0-3) Basophils (%) (Auto) 1 % (0-3) Neutrophils # (Auto) 6.4 x10^3/uL (1.8-7.7) Lymphocytes # (Auto) 1.6 x10^3/uL (1.0-4.8) Monocytes # (Auto) 0.8 x10^3/uL (0.0-1.1) Eosinophils # (Auto) 0.2 x10^3/uL (0.0-0.7) Basophils # (Auto) 0.1 x10^3/uL (0.0-0.2) Sodium Level 139 mmol/L (136-145) Potassium Level 4.1 mmol/L (3.5-5.1) Chloride Level 104 mmol/L (98-107) Carbon Dioxide Level 30 mmol/L (21-32) Anion Gap 5 (6-14) Blood Urea Nitrogen 17 mg/dL (7-20) Creatinine 2.4 mg/dL (0.6-1.0) Estimated GFR (Cockcroft-Gault) 25.0 BUN/Creatinine Ratio 7 (6-20) Glucose Level 105 mg/dL (70-99) Calcium Level 7.4 mg/dL (8.5-10.1) Total Bilirubin 0.3 mg/dL (0.2-1.0) Aspartate Amino Transf (AST/SGOT) 22 U/L (15-37) Alanine Aminotransferase (ALT/SGPT) 12 U/L (14-59) Alkaline Phosphatase 104 U/L (46-116) Total Protein 6.0 g/dL (6.4-8.2) Albumin 1.7 g/dL (3.4-5.0) Albumin/Globulin Ratio 0.4 (1.0-1.7) Microbiology 12/03/20 Blood Culture - Preliminary, Resulted NO GROWTH AFTER 2 DAYS Medications Current Medications Sodium Chloride 1,000 ml @ 1,000 mls/hr 1X ONCE IV Last administered on 12/03/20at 14:38; Start 12/03/20 at 14:45; Stop 12/03/20 at 15:44; Status DC Acetaminophen (Tylenol) 650 mg Q6HRS PO Last administered on 12/04/20at 06:53; Start 12/04/20 at 00:00; Stop 12/04/20 at 09:09; Status DC Atorvastatin Calcium (Lipitor) 10 mg HS PO Last administered on 12/05/20at 20:2 0; Start 12/03/20 at 21:00 Bupropion HCl (Wellbutrin Xl) 150 mg DAILY PO Last administered on 12/06/20at 09:36; Start 12/04/20 at 09:00 Calcium Carbonate/ Glycine (Oscal) 500 mg PRN Q4HRS PRN PO GI SYMPTOMS; Start 12/03/20 at 20:00 Famotidine (Pepcid) 20 mg HS PO Last administered on 12/05/20at 20:19; Start 12/03/20 at 21:00 Gabapentin (Neurontin) 100 mg TID PO Last administered on 12/05/20at 08:34; Start 12/03/20 at 21:00; Stop 12/05/20 at 15:12; Status DC Ibuprofen (Motrin) 400 mg PRN Q6HRS PRN PO PAIN; Start 12/03/20 at 18:45 Levothyroxine Sodium (Synthroid) 112 mcg DAILY07 PO Last administered on 12/06/20at 09:36; Start 12/04/20 at 07:00 Al Hydroxide/Mg Hydroxide (Mylanta Plus Xs) 30 ml PRN Q12HR PRN PO UPSET STOMACH; Start 12/03/20 at 18:45 Polyethylene Glycol (miraLAX PACKET) 17 gm DAILY PO ; Start 12/04/20 at 09:00 Dextrose/Sodium Chloride 1,000 ml @ 100 mls/hr Q10H IV Last administered on 12/05/20at 21:00; Start 12/03/20 at 19:00 Insulin Human Lispro (HumaLOG) 0-7 UNITS TIDWMEALS SQ ; Start 12/04/20 at 12:00 Dextrose (Dextrose 50%-Water Syringe) 12.5 gm PRN Q15MIN PRN IV SEE COMMENTS; Start 12/04/20 at 09:15 Acetaminophen (Tylenol) 650 mg PRN Q6HRS PRN PO pain; Start 12/04/20 at 09:15 Clonazepam (KlonoPIN) 0.5 mg BID PO ; Start 12/04/20 at 21:00; Stop 12/04/20 at 13:03; Status DC Lorazepam (Ativan) 0.5 mg PRN Q8HRS PRN PO ANXIETY; Start 12/04/20 at 09:15; Stop 12/06/20 at 09:38; Status DC Ropinirole HCl (Requip) 1 mg BID PO Last administered on 12/06/20at 09:36; Start 12/04/20 at 10:00 Clonazepam (KlonoPIN) 0.5 mg QHS PO Last administered on 12/05/20at 20:20; Start 12/04/20 at 21:00; Stop 12/06/20 at 09:38; Status DC Cyanocobalamin (Vitamin B-12) 1,000 mcg 1X ONCE IM Last administered on 12/04/20at 15:11; Start 12/04/20 at 14:00; Stop 12/04/20 at 14:01; Status DC Estrogens Conjugated (Premarin) 0.625 mg 1X ONCE PO Last administered on 12/05/20at 16:40; Start 12/05/20 at 10:30; Stop 12/05/20 at 10:36; Status DC Estrogens Conjugated (Premarin) 0.3 mg DAILY PO Last administered on 12/06/20at 09:36; Start 12/06/20 at 09:00 Gabapentin (Neurontin) 300 mg QHS PO Last administered on 12/05/20at 20:19; Start 12/05/20 at 21:00 Ciprofloxacin (Ciloxan Ophth) 1 drop QID OU Last administered on 12/06/20at 10:09; Start 12/06/20 at 13:00 Glycerin/ Hypromellose/ Polyethylene (Artificial Tears) 1 drop PRN Q15MIN PRN OU DRY EYE; Start 12/06/20 at 09:45 Zolpidem Tartrate (Ambien) 5 mg PRN QHS PRN PO INSOMNIA, MAY REPEAT IN 1HR; Start 12/06/20 at 09:45 Active Scripts Active Reported Tramadol Hcl 50 Mg Tablet 50 Mg PO Q6HRS PRN Mylanta Maximum Strength Liq (Mag Hydrox/Aluminum Hyd/Simeth) 355 Ml Oral.susp 30 Ml PO PRN PRN Ativan (Lorazepam) 0.5 Mg Tablet 0.5 Mg PO Q8HRS PRN Ibu (Ibuprofen) 400 Mg Tablet 1 Tab PO Q6HRS PRN 5 Days NEEDED FOR PAIN Wellbutrin Xl (Bupropion Hcl) 150 Mg Tab.er.24h 150 Mg PO DAILY Artificial Tears Drops (Peg 400/Hypromellose/Glycerin) 15 Ml Drops 1 Drop OS QID 30 Days Folic Acid 0.4 Mg Tablet 0.4 Mg PO DAILY Duoneb 0.5-3(2.5) Mg/3 Ml (Albuterol/Ipratropium) 3 Ml Ampul.neb 3 Ml NEB Q4HRS Clonidine Hcl 0.2 Mg Tablet 0.2 Mg PO TID Multiple Vitamins (Multivitamin) 1 Each Tablet 1 Tab PO DAILY 30 Days Miralax (Polyethylene Glycol 3350) 17 Gm Powd.pack 1 Packet PO DAILY 2 Days dissolve in water Famotidine 20 Mg Tablet 20 Mg PO HS Zofran (Ondansetron Hcl) 4 Mg Tablet 4 Mg PO Q8HRS PRN Polyvinyl Alcohol 15 Ml Drops 2 Drop EACHEYE Q4HRS 30 Days Ropinirole Hcl 1 Mg Tablet 1 Mg PO BID Magnesium Oxide 400 Mg Tablet 400 Mg PO DAILY Loratadine 10 Mg Tablet 10 Mg PO DAILY Humalog (Insulin Lispro) 100 Unit/1 Ml Vial 0 SQ BIDWMEALS 70 - 150 0 units 151 - 200 0 units 201 - 250 2 units 251 - 300 3 units 301 - 349 4 units if FSBS is under 70 or 350 and over call MD [guaifenesin Syrup] 10 Ml PO Q4HRS PRN Coreg (Carvedilol) 25 Mg Tablet 50 Mg PO BIDWMEALS Peridex (Chlorhexidine Gluconate) 15 Ml Mouthwash 15 Ml PO BID 30 Days Swish in mouth for 30 seconds then spit out Calcium Carbonate 500 Mg Tablet 500 Mg PO Q4HRS Atorvastatin Calcium 10 Mg Tablet 10 Mg PO HS Acetaminophen 325 Mg Tablet 650 Mg PO Q6HRS Metformin Hcl 500 Mg Tablet 250 Mg PO BIDWMEALS Imodium A-D (Loperamide HCl) 2 Mg Capsule 2 Mg PO DAILY PRN Risperidone 0.5 Mg Tablet 0.5 Mg PO AFTRNOON Levothyroxine Sodium 112 Mcg Tablet 1 Tab PO DAILY Advair 500-50 Diskus (Fluticasone/Salmeterol) 1 Each Disk.w.dev 1 Puff IH BID Nystatin 15 Gm Powder 1 Scott TP PRN BID PRN Clonazepam (Clonazepam) 0.5 Mg Tablet 1 Tab PO BID Gas-X (Simethicone) 80 Mg Tab.chew 160 Mg PO Q2HR PRN Gabapentin (Gabapentin) 100 Mg Capsule 100 Mg PO TID Vitals/I & O Vital Sign - Last 24 Hours 12/05/20 12/05/20 12/05/20 12/05/20 15:00 19:11 19:28 20:00 Temp 98.0 98.8 98.0 98.8 Pulse 89 112 Resp 20 18 B/P (MAP) 155/91 (112) 141/83 (102) Pulse Ox 100 92 92 O2 Delivery BiPAP/CPAP Nasal Cannula Nasal Cannula Nasal Cannula O2 Flow Rate 4.0 4.0 4.0 12/05/20 12/05/20 12/06/20 12/06/20 22:07 23:04 02:04 07:00 Temp 97.9 97.7 98.7 97.9 97.7 98.7 Pulse 100 91 100 Resp 24 27 20 B/P (MAP) 119/77 (91) 149/88 (108) 143/88 (106) Pulse Ox 99 97 96 96 O2 Delivery BiPAP/CPAP BiPAP/CPAP BiPAP/CPAP BiPAP/CPAP 12/06/20 12/06/20 07:55 11:00 Temp 98.8 98.8 Pulse 108 Resp 20 B/P (MAP) 151/90 (110) Pulse Ox 90 O2 Delivery Bi-pap Nasal Cannula O2 Flow Rate 4.0 Intake and Output 12/05/20 12/05/2012/06/21 15:00 23:00 07:00 Intake Total 240 ml 1470 ml 50 ml Output Total 1100 ml Balance 240 ml 370 ml 50 ml Justicifation of Admission Dx: Justifications for Admission: Justification of Admission Dx: Yes HOMER BREEN MD Dec 06, 2020 12:11
--- NOTE | 2020-12-06 13:57 | RAD ---
Single view of the chest. 12/06/2020 12:05 PM Indication: Reason: SOA, hypercapnic / Spl. Instructions: / History: Comparison: Chest radiograph December 03, 2020 Findings: Patient is rotated. Cardiomediastinal silhouette is unchanged. Pacemaking/ICD device is akiko ssly stable. Mild bibasilar opacities possibly small effusions, atelectasis, or infiltrate appear sim ilar. No pneumothorax. No acute osseous changes noted in the interim IMPRESSION: Grossly stable radiographic appearance of the chest Electronically signed by: Yrn Cage MD (12/06/2020 1:55 PM) [id number]
[2020-12-06] MEDS: IV DEXTROSE 5 %-0.45 % NACL 1,000 ML IV SCH ×2 (14:50→17:00)
[2020-12-06] MEDS: FAMOTIDINE 20 MG TABLET. PO SCH (20:40)
[2020-12-06] MEDS: ACETAMINOPHEN 325 MG TABLET. PO PRN (20:40)
[2020-12-06] MEDS: GABAPENTIN 300 MG CAPSULE. PO SCH (20:40)
[2020-12-06] MEDS: ATORVASTATIN CALCIUM 10 MG TABLET. PO SCH (20:40)
[2020-12-07] MEDS: IV DEXTROSE 5 %-0.45 % NACL 1,000 ML IV SCH (01:14)
--- NOTE | 2020-12-07 01:30 | NUR ---
Patient had not voided yet this shift despite receiving IV fluids, bladder scan done revealing 410cc or urine retained. Urinary bladder is observed as distended, pt asked to void and is unable. Pt does state she does feel like she has to void. contacted and prn straight cath orders were received.
[2020-12-07 02:51] VITALS: BP 161/86
--- NOTE | 2020-12-07 04:48 | PDOC ---
PULMONARY PROGRESS NOTES DATE: 12/07/20 TIME: 04:47 Subjective on BIPAP 40% fio2 nursing reports some hypoxia on 4-5 liters N/C w activity no increased cough or SOA Vitals Vital Signs Date Time Temp Pulse Resp B/P (MAP) Pulse Ox O2 Delivery O2 Flow Rate FiO2 12/07/20 02:51 98.2 105 20 161/86 (111) 90 Nasal Cannula 4.0 98.2 ROS: No Nausea, No Chest Pain, No Abdominal Pain, No Increase Cough General: Alert, Oriented X4 Lungs: Clear Cardiovascular: S1, S2 Abdomen: Soft, Non-tender Neuro Exam: Alert, Oriented Extremities: No Edema Skin: Warm, Dry Labs Laboratory Tests Test 12/05/20 07:34 12/05/20 09:35 12/05/20 11:00 12/05/20 17:15 Glucose (Fingerstick) 120 mg/dL (70-99) 126 mg/dL (70-99) Sodium Level 135 mmol/L (136-145) Potassium Level 3.8 mmol/L (3.5-5.1) Chloride Level 101 mmol/L (98-107) Carbon Dioxide Level 28 mmol/L (21-32) Anion Gap 6 (6-14) Blood Urea Nitrogen 19 mg/dL (7-20) Creatinine 2.3 mg/dL (0.6-1.0) Estimated GFR (Cockcroft-Gault) 26.3 Glucose Level 132 mg/dL (70-99) Calcium Level 7.4 mg/dL (8.5-10.1) White Blood Count 8.6 x10^3/uL (4.0-11.0) Red Blood Count 3.03 x10^6/uL (3.50-5.40) Hemoglobin 9.3 g/dL (12.0-15.5) Hematocrit 29.2 % (36.0-47.0) Mean Corpuscular Volume 96 fL (79-100) Mean Corpuscular Hemoglobin 31 pg (25-35) Mean Corpuscular Hemoglobin Concent 32 g/dL (31-37) Red Cell Distribution Width 18.9 % (11.5-14.5) Platelet Count 155 x10^3/uL (140-400) Neutrophils (%) (Auto) 72 % (31-73) Lymphocytes (%) (Auto) 14 % (24-48) Monocytes (%) (Auto) 10 % (0-9) Eosinophils (%) (Auto) 3 % (0-3) Basophils (%) (Auto) 1 % (0-3) Neutrophils # (Auto) 6.2 x10^3/uL (1.8-7.7) Lymphocytes # (Auto) 1.2 x10^3/uL (1.0-4.8) Monocytes # (Auto) 0.8 x10^3/uL (0.0-1.1) Eosinophils # (Auto) 0.3 x10^3/uL (0.0-0.7) Basophils # (Auto) 0.1 x10^3/uL (0.0-0.2) Segmented Neutrophils % 71 % (35-66) Band Neutrophils % 3 % (0-9) Lymphocytes % 16 % (24-48) Monocytes % 7 % (0-10) Eosinophils % 2 % (0-5) Myelocytes % 1 % (0-0) Platelet Estimate Adequate (ADEQUATE) Polychromasia Mod Basophilic Stippling Present Anisocytosis Mod Test 12/05/20 21:24 12/06/20 07:22 12/06/20 08:25 12/06/20 11:31 Glucose (Fingerstick) 168 mg/dL (70-99) 128 mg/dL (70-99) 121 mg/dL (70-99) White Blood Count 9.0 x10^3/uL (4.0-11.0) Red Blood Count 2.88 x10^6/uL (3.50-5.40) Hemoglobin 8.9 g/dL (12.0-15.5) Hematocrit 27.5 % (36.0-47.0) Mean Corpuscular Volume 96 fL (79-100) Mean Corpuscular Hemoglobin 31 pg (25-35) Mean Corpuscular Hemoglobin Concent 32 g/dL (31-37) Red Cell Distribution Width 19.2 % (11.5-14.5) Platelet Count 121 x10^3/uL (140-400) Neutrophils (%) (Auto) 71 % (31-73) Lymphocytes (%) (Auto) 18 % (24-48) Monocytes (%) (Auto) 9 % (0-9) Eosinophils (%) (Auto) 2 % (0-3) Basophils (%) (Auto) 1 % (0-3) Neutrophils # (Auto) 6.4 x10^3/uL (1.8-7.7) Lymphocytes # (Auto) 1.6 x10^3/uL (1.0-4.8) Monocytes # (Auto) 0.8 x10^3/uL (0.0-1.1) Eosinophils # (Auto) 0.2 x10^3/uL (0.0-0.7) Basophils # (Auto) 0.1 x10^3/uL (0.0-0.2) Sodium Level 139 mmol/L (136-145) Potassium Level 4.1 mmol/L (3.5-5.1) Chloride Level 104 mmol/L (98-107) Carbon Dioxide Level 30 mmol/L (21-32) Anion Gap 5 (6-14) Blood Urea Nitrogen 17 mg/dL (7-20) Creatinine 2.4 mg/dL (0.6-1.0) Estimated GFR (Cockcroft-Gault) 25.0 BUN/Creatinine Ratio 7 (6-20) Glucose Level 105 mg/dL (70-99) Calcium Level 7.4 mg/dL (8.5-10.1) Total Bilirubin 0.3 mg/dL (0.2-1.0) Aspartate Amino Transf (AST/SGOT) 22 U/L (15-37) Alanine Aminotransferase (ALT/SGPT) 12 U/L (14-59) Alkaline Phosphatase 104 U/L (46-116) Total Protein 6.0 g/dL (6.4-8.2) Albumin 1.7 g/dL (3.4-5.0) Albumin/Globulin Ratio 0.4 (1.0-1.7) Test 12/06/20 16:43 12/06/20 20:54 Glucose (Fingerstick) 129 mg/dL (70-99) 151 mg/dL (70-99) Laboratory Tests Test 12/06/20 07:22 12/06/20 08:25 12/06/20 11:31 12/06/20 16:43 Glucose (Fingerstick) 128 mg/dL (70-99) 121 mg/dL (70-99) 129 mg/dL (70-99) White Blood Count 9.0 x10^3/uL (4.0-11.0) Red Blood Count 2.88 x10^6/uL (3.50-5.40) Hemoglobin 8.9 g/dL (12.0-15.5) Hematocrit 27.5 % (36.0-47.0) Mean Corpuscular Volume 96 fL (79-100) Mean Corpuscular Hemoglobin 31 pg (25-35) Mean Corpuscular Hemoglobin Concent 32 g/dL (31-37) Red Cell Distribution Width 19.2 % (11.5-14.5) Platelet Count 121 x10^3/uL (140-400) Neutrophils (%) (Auto) 71 % (31-73) Lymphocytes (%) (Auto) 18 % (24-48) Monocytes (%) (Auto) 9 % (0-9) Eosinophils (%) (Auto) 2 % (0-3) Basophils (%) (Auto) 1 % (0-3) Neutrophils # (Auto) 6.4 x10^3/uL (1.8-7.7) Lymphocytes # (Auto) 1.6 x10^3/uL (1.0-4.8) Monocytes # (Auto) 0.8 x10^3/uL (0.0-1.1) Eosinophils # (Auto) 0.2 x10^3/uL (0.0-0.7) Basophils # (Auto) 0.1 x10^3/uL (0.0-0.2) Sodium Level 139 mmol/L (136-145) Potassium Level 4.1 mmol/L (3.5-5.1) Chloride Level 104 mmol/L (98-107) Carbon Dioxide Level 30 mmol/L (21-32) Anion Gap 5 (6-14) Blood Urea Nitrogen 17 mg/dL (7-20) Creatinine 2.4 mg/dL (0.6-1.0) Estimated GFR (Cockcroft-Gault) 25.0 BUN/Creatinine Ratio 7 (6-20) Glucose Level 105 mg/dL (70-99) Calcium Level 7.4 mg/dL (8.5-10.1) Total Bilirubin 0.3 mg/dL (0.2-1.0) Aspartate Amino Transf (AST/SGOT) 22 U/L (15-37) Alanine Aminotransferase (ALT/SGPT) 12 U/L (14-59) Alkaline Phosphatase 104 U/L (46-116) Total Protein 6.0 g/dL (6.4-8.2) Albumin 1.7 g/dL (3.4-5.0) Albumin/Globulin Ratio 0.4 (1.0-1.7) Test 12/06/20 20:54 Glucose (Fingerstick) 151 mg/dL (70-99) Medications Active Scripts Medications Dose Route/Sig Max Daily Dose Days Date Category Dose Instructions Tramadol Hcl 50 Mg Tablet 50 Mg PO Q6HRS PRN 11/26/20 Reported Mylanta Maximum Strength Liq (Mag Hydrox/Aluminum Hyd/Simeth) 355 Ml Oral.susp 30 Ml PO PRN PRN 11/26/20 Reported Ativan (Lorazepam) 0.5 Mg Tablet 0.5 Mg PO Q8HRS PRN 11/26/20 Reported Ibu (Ibuprofen) 400 Mg Tablet 1 Tab PO Q6HRS PRN 5 11/26/20 Reported NEEDED FOR PAIN Wellbutrin Xl (Bupropion Hcl) 150 Mg Tab.er.24h 150 Mg PO DAILY 10/31/20 Reported Artificial Tears Drops (Peg 400/Hypromellose/Glycerin) 15 Ml Drops 1 Drop OS QID 30 10/31/20 Reported Folic Acid 0.4 Mg Tablet 0.4 Mg PO DAILY 10/31/20 Reported Duoneb 0.5-3(2.5) Mg/3 Ml (Albuterol/Ipratropium) 3 Ml Ampul.neb 3 Ml NEB Q4HRS 10/31/20 Reported Clonidine Hcl 0.2 Mg Tablet 0.2 Mg PO TID 10/31/20 Reported Multiple Vitamins (Multivitamin) 1 Each Tablet 1 Tab PO DAILY 30 10/31/20 Reported Miralax (Polyethylene Glycol 3350) 17 Gm Powd.pack 1 Packet PO DAILY 2 10/31/20 Reported dissolve in water Famotidine 20 Mg Tablet 20 Mg PO HS 10/31/20 Reported Zofran (Ondansetron Hcl) 4 Mg Tablet 4 Mg PO Q8HRS PRN 12/02/19 Reported Polyvinyl Alcohol 15 Ml Drops 2 Drop EACHEYE Q4HRS 30 12/02/19 Reported Ropinirole Hcl 1 Mg Tablet 1 Mg PO BID 12/02/19 Reported Magnesium Oxide 400 Mg Tablet 400 Mg PO DAILY 12/02/19 Reported Loratadine 10 Mg Tablet 10 Mg PO DAILY 12/02/19 Reported Humalog (Insulin Lispro) 100 Unit/1 Ml Vial 0 SQ BIDWMEALS 12/02/19 Reported 70 - 150 0 units 151 - 200 0 units 201 - 250 2 units 251 - 300 3 units 301 - 349 4 units if FSBS is under 70 or 350 and over call MD [guaifenesin Syrup] 10 Ml PO Q4HRS PRN 12/02/19 Reported Coreg (Carvedilol) 25 Mg Tablet 50 Mg PO BIDWMEALS 12/02/19 Reported Peridex (Chlorhexidine Gluconate) 15 Ml Mouthwash 15 Ml PO BID 30 12/02/19 Reported Swish in mouth for 30 seconds then spit out Calcium Carbonate 500 Mg Tablet 500 Mg PO Q4HRS 12/02/19 Reported Atorvastatin Calcium 10 Mg Tablet 10 Mg PO HS 12/02/19 Reported Acetaminophen 325 Mg Tablet 650 Mg PO Q6HRS 12/02/19 Reported Metformin Hcl 500 Mg Tablet 250 Mg PO BIDWMEALS 12/03/18 Reported Imodium A-D (Loperamide HCl) 2 Mg Capsule 2 Mg PO DAILY PRN 12/03/18 Reported Risperidone 0.5 Mg Tablet 0.5 Mg PO AFTRNOON 03/21/18 Reported Levothyroxine Sodium 112 Mcg Tablet 1 Tab PO DAILY 03/21/18 Reported Advair 500-50 Diskus (Fluticasone/Salmeterol) 1 Each Disk.w.dev 1 Puff IH BID 03/21/18 Reported Nystatin 15 Gm Powder 1 Scott TP PRN BID PRN 03/21/18 Reported Clonazepam (Clonazepam) 0.5 Mg Tablet 1 Tab PO BID 09/30/16 Reported Gas-X (Simethicone) 80 Mg Tab.chew 160 Mg PO Q2HR PRN 02/18/16 Reported Gabapentin (Gabapentin) 100 Mg Capsule 100 Mg PO TID 02/18/16 Reported Impression . IMPRESSION: 1. [id number] hypercapnic respiratory failure secondary to acute exacerbation of chronic obstructive pulmonary disease. Could have been contributed to by effect of benzodiazepine. She was also noted to be off of her oxygen at the [facility] care facility and may have triggered her hypoxia. 2. No new infiltrates. 3. Anemia. 4. Chronic kidney disease. 5. Encephalopathy secondary to hypercapnia, now improving. 6. Severe protein-calorie malnutrition. 7. Toxic encephalopathy, improved. Plan . RECOMMENDATIONS: Continue supplemental oxygen to keep sats 90% add BD add ICS Continue BIPAP at night and PRN Avoid benzo/sedative medications use as much as possible Monitor HGB--improved PRN nebs Follow speech recs -- currently on dysphasia I diet PT/OT DVT/GI PPX D/W LEWIS THOMAS MD Dec 07, 2020 04:48
[2020-12-07] MEDS: LEVOTHYROXINE 112 MCG TABLET PO SCH (05:24)
[2020-12-07 07:00] VITALS: BP 169/101
[2020-12-07] MEDS: INSULIN LISPRO 300 UNITS/3 ML VIAL. SQ SCH ×3 (08:00→17:00)
[2020-12-07] MEDS: IPRATRPIUM/ALBUTEROL 0.5/2.5MG 3 ML NEBU. NEB SCH ×4 (08:13→21:52)
[2020-12-07] MEDS: BUDESONIDE 0.5 MG/2 ML NEBU. NEB SCH ×2 (08:13→21:52)
[2020-12-07 08:37] LABS: BASO % 0 % (0-3); EOS # 0.3 x10^3/uL (0.0-0.7); EOS % 3 % (0-3); LYMPH # 1.5 x10^3/uL (1.0-4.8); LYMPH % 16 % (24-48); MEAN CORPUSCULAR HEMOGLOBIN 31 pg (25-35); MEAN CORPUSCULAR HGB CONC 32 g/dL (31-37); MEAN CORPUSCULAR VOLUME 96 fL (79-100); MONO # 0.7 x10^3/uL (0.0-1.1); MONO % 7 % (0-9); NEUT # 7.2 x10^3/uL (1.8-7.7); NEUT % 74 % (31-73); PLATELET COUNT 120 x10^3/uL (140-400); RED BLOOD COUNT 2.93 x10^6/uL (3.50-5.40); RED CELL DISTRIBUTION WIDTH 19.2 % (11.5-14.5); WHITE BLOOD COUNT 9.7 x10^3/uL (4.0-11.0)
[2020-12-07] MEDS: ESTROGENS, CONJUGATED 0.3 MG TABLET PO SCH (08:54)
[2020-12-07] MEDS: buPROPion XL 150 MG TAB.ER.24H. PO SCH (08:54)
[2020-12-07] MEDS: rOPINIRole 1 MG TABLET. PO SCH ×2 (08:54→21:43)
[2020-12-07] MEDS: POLYETHYLENE GLYCOL 3350 17 GM PACKET. PO SCH (08:55)
[2020-12-07] MEDS: CIPROFLOXACIN 0.3% OPHTH SOLUTION 5ML BOTTLE. OU SCH ×4 (08:56→21:00)
[2020-12-07 09:07] LABS: ALBUMIN 1.7 g/dL (3.4-5.0); ALBUMIN/GLOBULIN RATIO 0.4 (1.0-1.7); CALCIUM 7.2 mg/dL (8.5-10.1); CREATININE 2.2 mg/dL (0.6-1.0); GFR 27.6; POTASSIUM 4.1 mmol/L (3.5-5.1); TOTAL BILIRUBIN 0.3 mg/dL (0.2-1.0); TOTAL PROTEIN 6.1 g/dL (6.4-8.2)
[2020-12-07 11:00] VITALS: BP 166/97
[2020-12-07] MEDS ORDERED: ALBUMIN HUMAN 25% 50 ML IV ONE (13:15)
[2020-12-07] MEDS ORDERED: FUROSEMIDE 40 MG/4 ML VIAL. IVP ONE (13:15)
--- NOTE | 2020-12-07 14:28 | PDOC ---
PROGRESS NOTES Date of Service: DATE: 12/07/20 TIME: 14:27 Chief Complaint Chief Complaint acute Toxic encephalopathy prob overuse of benzodiazepenes, with underlying anxiety, I have decreased the benzos and will stop, change to PRN ambien, recent acute hypoxic respiratory failure from pneumonia, covid, stable from [place] possible aspiration pneumonia RECENT Fall - ct head negative, no other pain complaints, no fracture chronic systolic CHF s/p AICD , last EF 45% History of DVT bilateral legs Obesity BMI 35 Schizophrenia - Hypertension. 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 discussed with her son by phone, he will be here today. Bipap PRN some right eye redness, no drainage, will start eye drops and cipro drops 12/05 I started estrogen/progestin today to taper the over prolifeative Endometrium that might be her anemia problem talked to the son at length yesterday will try to DC soon she is awake and getting better/stronger, , limited benzos and markedly better today, speech and PT and OT, restart rehab cont other current, I will decrease. Vitals Vitals Vital Signs Date Time Temp Pulse Resp B/P (MAP) Pulse Ox O2 Delivery O2 Flow Rate FiO2 12/07/20 11:41 100 BiPAP/CPAP 12/07/20 11:00 98.3 100 20 166/97 (120) 98.3 12/07/20 08:14 4.0 Physical Exam General: Alert, Cooperative, No acute distress, Other Heart: Regular rate Lungs: Clear Abdomen: Normal bowel sounds, Soft Extremities: No cyanosis, No edema Skin: No breakdown Labs LABS Laboratory Tests Test 12/06/20 16:43 12/06/20 20:54 12/07/20 07:27 12/07/20 08:25 Glucose (Fingerstick) 129 mg/dL (70-99) 151 mg/dL (70-99) 127 mg/dL (70-99) White Blood Count 9.7 x10^3/uL (4.0-11.0) Red Blood Count 2.93 x10^6/uL (3.50-5.40) Hemoglobin 9.0 g/dL (12.0-15.5) Hematocrit 28.0 % (36.0-47.0) Mean Corpuscular Volume 96 fL (79-100) Mean Corpuscular Hemoglobin 31 pg (25-35) Mean Corpuscular Hemoglobin Concent 32 g/dL (31-37) Red Cell Distribution Width 19.2 % (11.5-14.5) Platelet Count 120 x10^3/uL (140-400) Neutrophils (%) (Auto) 74 % (31-73) Lymphocytes (%) (Auto) 16 % (24-48) Monocytes (%) (Auto) 7 % (0-9) Eosinophils (%) (Auto) 3 % (0-3) Basophils (%) (Auto) 0 % (0-3) Neutrophils # (Auto) 7.2 x10^3/uL (1.8-7.7) Lymphocytes # (Auto) 1.5 x10^3/uL (1.0-4.8) Monocytes # (Auto) 0.7 x10^3/uL (0.0-1.1) Eosinophils # (Auto) 0.3 x10^3/uL (0.0-0.7) Basophils # (Auto) 0.0 x10^3/uL (0.0-0.2) Sodium Level 139 mmol/L (136-145) Potassium Level 4.1 mmol/L (3.5-5.1) Chloride Level 104 mmol/L (98-107) Carbon Dioxide Level 29 mmol/L (21-32) Anion Gap 6 (6-14) Blood Urea Nitrogen 15 mg/dL (7-20) Creatinine 2.2 mg/dL (0.6-1.0) Estimated GFR (Cockcroft-Gault) 27.6 BUN/Creatinine Ratio 7 (6-20) Glucose Level 123 mg/dL (70-99) Calcium Level 7.2 mg/dL (8.5-10.1) Total Bilirubin 0.3 mg/dL (0.2-1.0) Aspartate Amino Transf (AST/SGOT) 19 U/L (15-37) Alanine Aminotransferase (ALT/SGPT) 9 U/L (14-59) Alkaline Phosphatase 108 U/L (46-116) Total Protein 6.1 g/dL (6.4-8.2) Albumin 1.7 g/dL (3.4-5.0) Albumin/Globulin Ratio 0.4 (1.0-1.7) Test 12/07/20 11:48 Glucose (Fingerstick) 97 mg/dL (70-99) Assessment and Plan Assessmemt and Plan Problems Medical Problems: (1) Acute on chronic respiratory failure Status: Acute (2) Altered mental status Status: Acute Comment Review of Relevant I have reviewed the following items lucas (where applicable) has been applied. Labs Laboratory Tests Test 12/05/20 17:15 12/05/20 21:24 12/06/20 07:22 12/06/20 08:25 Glucose (Fingerstick) 126 mg/dL (70-99) 168 mg/dL (70-99) 128 mg/dL (70-99) White Blood Count 9.0 x10^3/uL (4.0-11.0) Red Blood Count 2.88 x10^6/uL (3.50-5.40) Hemoglobin 8.9 g/dL (12.0-15.5) Hematocrit 27.5 % (36.0-47.0) Mean Corpuscular Volume 96 fL (79-100) Mean Corpuscular Hemoglobin 31 pg (25-35) Mean Corpuscular Hemoglobin Concent 32 g/dL (31-37) Red Cell Distribution Width 19.2 % (11.5-14.5) Platelet Count 121 x10^3/uL (140-400) Neutrophils (%) (Auto) 71 % (31-73) Lymphocytes (%) (Auto) 18 % (24-48) Monocytes (%) (Auto) 9 % (0-9) Eosinophils (%) (Auto) 2 % (0-3) Basophils (%) (Auto) 1 % (0-3) Neutrophils # (Auto) 6.4 x10^3/uL (1.8-7.7) Lymphocytes # (Auto) 1.6 x10^3/uL (1.0-4.8) Monocytes # (Auto) 0.8 x10^3/uL (0.0-1.1) Eosinophils # (Auto) 0.2 x10^3/uL (0.0-0.7) Basophils # (Auto) 0.1 x10^3/uL (0.0-0.2) Sodium Level 139 mmol/L (136-145) Potassium Level 4.1 mmol/L (3.5-5.1) Chloride Level 104 mmol/L (98-107) Carbon Dioxide Level 30 mmol/L (21-32) Anion Gap 5 (6-14) Blood Urea Nitrogen 17 mg/dL (7-20) Creatinine 2.4 mg/dL (0.6-1.0) Estimated GFR (Cockcroft-Gault) 25.0 BUN/Creatinine Ratio 7 (6-20) Glucose Level 105 mg/dL (70-99) Calcium Level 7.4 mg/dL (8.5-10.1) Total Bilirubin 0.3 mg/dL (0.2-1.0) Aspartate Amino Transf (AST/SGOT) 22 U/L (15-37) Alanine Aminotransferase (ALT/SGPT) 12 U/L (14-59) Alkaline Phosphatase 104 U/L (46-116) Total Protein 6.0 g/dL (6.4-8.2) Albumin 1.7 g/dL (3.4-5.0) Albumin/Globulin Ratio 0.4 (1.0-1.7) Test 12/06/20 11:31 12/06/20 16:43 12/06/20 20:54 12/07/20 07:27 Glucose (Fingerstick) 121 mg/dL (70-99) 129 mg/dL (70-99) 151 mg/dL (70-99) 127 mg/dL (70-99) Test 12/07/20 08:25 12/07/20 11:48 White Blood Count 9.7 x10^3/uL (4.0-11.0) Red Blood Count 2.93 x10^6/uL (3.50-5.40) Hemoglobin 9.0 g/dL (12.0-15.5) Hematocrit 28.0 % (36.0-47.0) Mean Corpuscular Volume 96 fL (79-100) Mean Corpuscular Hemoglobin 31 pg (25-35) Mean Corpuscular Hemoglobin Concent 32 g/dL (31-37) Red Cell Distribution Width 19.2 % (11.5-14.5) Platelet Count 120 x10^3/uL (140-400) Neutrophils (%) (Auto) 74 % (31-73) Lymphocytes (%) (Auto) 16 % (24-48) Monocytes (%) (Auto) 7 % (0-9) Eosinophils (%) (Auto) 3 % (0-3) Basophils (%) (Auto) 0 % (0-3) Neutrophils # (Auto) 7.2 x10^3/uL (1.8-7.7) Lymphocytes # (Auto) 1.5 x10^3/uL (1.0-4.8) Monocytes # (Auto) 0.7 x10^3/uL (0.0-1.1) Eosinophils # (Auto) 0.3 x10^3/uL (0.0-0.7) Basophils # (Auto) 0.0 x10^3/uL (0.0-0.2) Sodium Level 139 mmol/L (136-145) Potassium Level 4.1 mmol/L (3.5-5.1) Chloride Level 104 mmol/L (98-107) Carbon Dioxide Level 29 mmol/L (21-32) Anion Gap 6 (6-14) Blood Urea Nitrogen 15 mg/dL (7-20) Creatinine 2.2 mg/dL (0.6-1.0) Estimated GFR (Cockcroft-Gault) 27.6 BUN/Creatinine Ratio 7 (6-20) Glucose Level 123 mg/dL (70-99) Calcium Level 7.2 mg/dL (8.5-10.1) Total Bilirubin 0.3 mg/dL (0.2-1.0) Aspartate Amino Transf (AST/SGOT) 19 U/L (15-37) Alanine Aminotransferase (ALT/SGPT) 9 U/L (14-59) Alkaline Phosphatase 108 U/L (46-116) Total Protein 6.1 g/dL (6.4-8.2) Albumin 1.7 g/dL (3.4-5.0) Albumin/Globulin Ratio 0.4 (1.0-1.7) Glucose (Fingerstick) 97 mg/dL (70-99) Laboratory Tests Test 12/06/20 16:43 12/06/20 20:54 12/07/20 07:27 12/07/20 08:25 Glucose (Fingerstick) 129 mg/dL (70-99) 151 mg/dL (70-99) 127 mg/dL (70-99) White Blood Count 9.7 x10^3/uL (4.0-11.0) Red Blood Count 2.93 x10^6/uL (3.50-5.40) Hemoglobin 9.0 g/dL (12.0-15.5) Hematocrit 28.0 % (36.0-47.0) Mean Corpuscular Volume 96 fL (79-100) Mean Corpuscular Hemoglobin 31 pg (25-35) Mean Corpuscular Hemoglobin Concent 32 g/dL (31-37) Red Cell Distribution Width 19.2 % (11.5-14.5) Platelet Count 120 x10^3/uL (140-400) Neutrophils (%) (Auto) 74 % (31-73) Lymphocytes (%) (Auto) 16 % (24-48) Monocytes (%) (Auto) 7 % (0-9) Eosinophils (%) (Auto) 3 % (0-3) Basophils (%) (Auto) 0 % (0-3) Neutrophils # (Auto) 7.2 x10^3/uL (1.8-7.7) Lymphocytes # (Auto) 1.5 x10^3/uL (1.0-4.8) Monocytes # (Auto) 0.7 x10^3/uL (0.0-1.1) Eosinophils # (Auto) 0.3 x10^3/uL (0.0-0.7) Basophils # (Auto) 0.0 x10^3/uL (0.0-0.2) Sodium Level 139 mmol/L (136-145) Potassium Level 4.1 mmol/L (3.5-5.1) Chloride Level 104 mmol/L (98-107) Carbon Dioxide Level 29 mmol/L (21-32) Anion Gap 6 (6-14) Blood Urea Nitrogen 15 mg/dL (7-20) Creatinine 2.2 mg/dL (0.6-1.0) Estimated GFR (Cockcroft-Gault) 27.6 BUN/Creatinine Ratio 7 (6-20) Glucose Level 123 mg/dL (70-99) Calcium Level 7.2 mg/dL (8.5-10.1) Total Bilirubin 0.3 mg/dL (0.2-1.0) Aspartate Amino Transf (AST/SGOT) 19 U/L (15-37) Alanine Aminotransferase (ALT/SGPT) 9 U/L (14-59) Alkaline Phosphatase 108 U/L (46-116) Total Protein 6.1 g/dL (6.4-8.2) Albumin 1.7 g/dL (3.4-5.0) Albumin/Globulin Ratio 0.4 (1.0-1.7) Test 12/07/20 11:48 Glucose (Fingerstick) 97 mg/dL (70-99) Microbiology 12/03/20 Blood Culture - Preliminary, Resulted NO GROWTH AFTER 3 DAYS Medications Current Medications Sodium Chloride 1,000 ml @ 1,000 mls/hr 1X ONCE IV Last administered on 12/03/20at 14:38; Start 12/03/20 at 14:45; Stop 12/03/20 at 15:44; Status DC Acetaminophen (Tylenol) 650 mg Q6HRS PO Last administered on 12/04/20at 06:53; Start 12/04/20 at 00:00; Stop 12/04/20 at 09:09; Status DC Atorvastatin Calcium (Lipitor) 10 mg HS PO Last administered on 12/06/20at 20:40; Start 12/03/20 at 21:00 Bupropion HCl (Wellbutrin Xl) 150 mg DAILY PO Last administered on 12/07/20at 08:54; Start 12/04/20 at 09:00 Calcium Carbonate/ Glycine (Oscal) 500 mg PRN Q4HRS PRN PO GI SYMPTOMS; Start 12/03/20 at 20:00 Famotidine (Pepcid) 20 mg HS PO Last administered on 12/06/20at 20:40; Start 12/03/20 at 21:00 Gabapentin (Neurontin) 100 mg TID PO Last administered on 12/05/20at 08:34; Start 12/03/20 at 21:00; Stop 12/05/20 at 15:12; Status DC Ibuprofen (Motrin) 400 mg PRN Q6HRS PRN PO PAIN; Start 12/03/20 at 18:45 Levothyroxine Sodium (Synthroid) 112 mcg DAILY07 PO Last administered on 12/07/20at 05:24; Start 12/04/20 at 07:00 Al Hydroxide/Mg Hydroxide (Mylanta Plus Xs) 30 ml PRN Q12HR PRN PO UPSET STOMACH; Start 12/03/20 at 18:45 Polyethylene Glycol (miraLAX PACKET) 17 gm DAILY PO ; Start 12/04/20 at 09:00 Dextrose/Sodium Chloride 1,000 ml @ 100 mls/hr Q10H IV Last administered on 12/07/20at 01:14; Start 12/03/20 at 19:00; Stop 12/07/20 at 13:19; Status DC Insulin Human Lispro (HumaLOG) 0-7 UNITS TIDWMEALS SQ ; Start 12/04/20 at 12:00 Dextrose (Dextrose 50%-Water Syringe) 12.5 gm PRN Q15MIN PRN IV SEE COMMENTS; Start 12/04/20 at 09:15 Acetaminophen (Tylenol) 650 mg PRN Q6HRS PRN PO pain Last administered on 12/06/20at 20:40; Start 12/04/20 at 09:15 Clonazepam (KlonoPIN) 0.5 mg BID PO ; Start 12/04/20 at 21:00; Stop 12/04/20 at 13:03; Status DC Lorazepam (Ativan) 0.5 mg PRN Q8HRS PRN PO ANXIETY; Start 12/04/20 at 09:15; Stop 12/06/20 at 09:38; Status DC Ropinirole HCl (Requip) 1 mg BID PO Last administered on 12/07/20at 08:54; Start 12/04/20 at 10:00 Clonazepam (KlonoPIN) 0.5 mg QHS PO Last administered on 12/05/20at 20:20; Start 12/04/20 at 21:00; Stop 12/06/20 at 09:38; Status DC Cyanocobalamin (Vitamin B-12) 1,000 mcg 1X ONCE IM Last administered on 12/04/20at 15:11; Start 12/04/20 at 14:00; Stop 12/04/20 at 14:01; Status DC Estrogens Conjugated (Premarin) 0.625 mg 1X ONCE PO Last administered on 12/05/20at 16:40; Start 12/05/20 at 10:30; Stop 12/05/20 at 10:36; Status DC Estrogens Conjugated (Premarin) 0.3 mg DAILY PO Last administered on 12/07/20at 08:54; Start 12/06/20 at 09:00 Gabapentin (Neurontin) 300 mg QHS PO Last administered on 12/06/20at 20:40; Start 12/05/20 at 21:00 Ciprofloxacin (Ciloxan Ophth) 1 drop QID OU Last administered on 12/07/20at 13:56; Start 12/06/20 at 13:00 Glycerin/ Hypromellose/ Polyethylene (Artificial Tears) 1 drop PRN Q15MIN PRN OU DRY EYE; Start 12/06/20 at 09:45 Zolpidem Tartrate (Ambien) 5 mg PRN QHS PRN PO INSOMNIA, MAY REPEAT IN 1HR; Start 12/06/20 at 09:45 Albuterol/ Ipratropium (Duoneb) 3 ml RTQID NEB Last administered on 12/07/20at 11:39; Start 12/07/20 at 08:00 Budesonide (Pulmicort) 0.5 mg RTBID NEB Last administered on 12/07/20at 08:13; Start 12/07/20 at 08:00 Albumin Human 50 ml @ 50 mls/hr 1X ONCE IV Last administered on 12/07/20at 13:57; Start 12/07/20 at 13:15; Stop 12/07/20 at 14:14; Status DC Furosemide (Lasix) 40 mg 1X ONCE IVP Last administered on 12/07/20at 13:57; Start 12/07/20 at 13:15; Stop 12/07/20 at 13:17; Status DC Active Scripts Active Reported Tramadol Hcl 50 Mg Tablet 50 Mg PO Q6HRS PRN Mylanta Maximum Strength Liq (Mag Hydrox/Aluminum Hyd/Simeth) 355 Ml Oral.susp 30 Ml PO PRN PRN Ativan (Lorazepam) 0.5 Mg Tablet 0.5 Mg PO Q8HRS PRN Ibu (Ibuprofen) 400 Mg Tablet 1 Tab PO Q6HRS PRN 5 Days NEEDED FOR PAIN Wellbutrin Xl (Bupropion Hcl) 150 Mg Tab.er.24h 150 Mg PO DAILY Artificial Tears Drops (Peg 400/Hypromellose/Glycerin) 15 Ml Drops 1 Drop OS QID 30 Days Folic Acid 0.4 Mg Tablet 0.4 Mg PO DAILY Duoneb 0.5-3(2.5) Mg/3 Ml (Albuterol/Ipratropium) 3 Ml Ampul.neb 3 Ml NEB Q4HRS Clonidine Hcl 0.2 Mg Tablet 0.2 Mg PO TID Multiple Vitamins (Multivitamin) 1 Each Tablet 1 Tab PO DAILY 30 Days Miralax (Polyethylene Glycol 3350) 17 Gm Powd.pack 1 Packet PO DAILY 2 Days dissolve in water Famotidine 20 Mg Tablet 20 Mg PO HS Zofran (Ondansetron Hcl) 4 Mg Tablet 4 Mg PO Q8HRS PRN Polyvinyl Alcohol 15 Ml Drops 2 Drop EACHEYE Q4HRS 30 Days Ropinirole Hcl 1 Mg Tablet 1 Mg PO BID Magnesium Oxide 400 Mg Tablet 400 Mg PO DAILY Loratadine 10 Mg Tablet 10 Mg PO DAILY Humalog (Insulin Lispro) 100 Unit/1 Ml Vial 0 SQ BIDWMEALS 70 - 150 0 units 151 - 200 0 units 201 - 250 2 units 251 - 300 3 units 301 - 349 4 units if FSBS is under 70 or 350 and over call MD [guaifenesin Syrup] 10 Ml PO Q4HRS PRN Coreg (Carvedilol) 25 Mg Tablet 50 Mg PO BIDWMEALS Peridex (Chlorhexidine Gluconate) 15 Ml Mouthwash 15 Ml PO BID 30 Days Swish in mouth for 30 seconds then spit out Calcium Carbonate 500 Mg Tablet 500 Mg PO Q4HRS Atorvastatin Calcium 10 Mg Tablet 10 Mg PO HS Acetaminophen 325 Mg Tablet 650 Mg PO Q6HRS Metformin Hcl 500 Mg Tablet 250 Mg PO BIDWMEALS Imodium A-D (Loperamide HCl) 2 Mg Capsule 2 Mg PO DAILY PRN Risperidone 0.5 Mg Tablet 0.5 Mg PO AFTRNOON Levothyroxine Sodium 112 Mcg Tablet 1 Tab PO DAILY Advair 500-50 Diskus (Fluticasone/Salmeterol) 1 Each Disk.w.dev 1 Puff IH BID Nystatin 15 Gm Powder 1 Scott TP PRN BID PRN Clonazepam (Clonazepam) 0.5 Mg Tablet 1 Tab PO BID Gas-X (Simethicone) 80 Mg Tab.chew 160 Mg PO Q2HR PRN Gabapentin (Gabapentin) 100 Mg Capsule 100 Mg PO TID Vitals/I & O Vital Sign - Last 24 Hours 12/06/20 12/06/20 12/06/20 12/06/20 15:00 19:33 19:50 20:09 Temp 98.4 98.1 98.4 98.1 Pulse 116 114 Resp 20 18 B/P (MAP) 151/85 (107) 183/103 (129) 168/105 (126) Pulse Ox 92 91 O2 Delivery Nasal Cannula Nasal Cannula Nasal Cannula O2 Flow Rate 4.0 4.0 4.0 12/06/20 12/06/20 12/07/20 12/07/20 21:12 22:27 01:12 02:51 Temp 98.3 98.2 98.3 98.2 Pulse 108 105 Resp 24 20 B/P (MAP) 159/95 (116) 161/86 (111) Pulse Ox 95 98 95 90 O2 Delivery BiPAP/CPAP Nasal Cannula BiPAP/CPAP Nasal Cannula O2 Flow Rate 4.0 4.0 12/07/20 12/07/20 12/07/20 12/07/20 04:50 07:00 08:00 08:13 Temp 98.1 98.1 Pulse 106 Resp 20 B/P (MAP) 169/101 (123) Pulse Ox 95 97 100 O2 Delivery BiPAP/CPAP Nasal Cannula Nasal Cannula Nasal Cannula O2 Flow Rate 4.0 4.0 4.0 12/07/20 12/07/20 12/07/20 12/07/20 08:14 11:00 11:39 11:41 Temp 98.3 98.3 Pulse 100 Resp 20 B/P (MAP) 166/97 (120) Pulse Ox 100 100 100 100 O2 Delivery Nasal Cannula BiPAP/CPAP BiPAP/CPAP BiPAP/CPAP O2 Flow Rate 4.0 Intake and Output 12/06/20 12/06/20 12/07/20 15:00 23:00 07:00 Intake Total 100 ml 340 ml 200 ml Output Total 600 ml 1400 ml 700 ml Balance -500 ml -1060 ml -500 ml Justicifation of Admission Dx: Justifications for Admission: Justification of Admission Dx: Yes HOMER BREEN MD Dec 07, 2020 14:28
[2020-12-07 15:00] VITALS: BP 149/95
[2020-12-07 19:40] VITALS: BP 156/96
[2020-12-07] MEDS: FAMOTIDINE 20 MG TABLET. PO SCH (21:43)
[2020-12-07] MEDS: ATORVASTATIN CALCIUM 10 MG TABLET. PO SCH (21:43)
[2020-12-07] MEDS: GABAPENTIN 300 MG CAPSULE. PO SCH (21:44)
[2020-12-07 23:59] VITALS: BP 160/100
[2020-12-08 03:01] VITALS: BP 163/106
[2020-12-08 07:00] VITALS: BP 163/95
[2020-12-08] MEDS: IPRATRPIUM/ALBUTEROL 0.5/2.5MG 3 ML NEBU. NEB SCH ×4 (07:41→20:59)
[2020-12-08] MEDS: BUDESONIDE 0.5 MG/2 ML NEBU. NEB SCH ×2 (07:41→20:59)
[2020-12-08] MEDS: INSULIN LISPRO 300 UNITS/3 ML VIAL. SQ SCH ×3 (08:00→17:00)
[2020-12-08] MEDS: LEVOTHYROXINE 112 MCG TABLET PO SCH (08:28)
[2020-12-08] MEDS: ESTROGENS, CONJUGATED 0.3 MG TABLET PO SCH (08:28)
[2020-12-08] MEDS: CIPROFLOXACIN 0.3% OPHTH SOLUTION 5ML BOTTLE. OU SCH ×4 (08:28→20:44)
[2020-12-08] MEDS: POLYETHYLENE GLYCOL 3350 17 GM PACKET. PO SCH (08:28)
[2020-12-08] MEDS: rOPINIRole 1 MG TABLET. PO SCH ×2 (08:28→20:44)
[2020-12-08] MEDS: buPROPion XL 150 MG TAB.ER.24H. PO SCH (08:28)
[2020-12-08 11:00] VITALS: BP 157/97
--- NOTE | 2020-12-08 11:52 | PDOC ---
PULMONARY PROGRESS NOTES DATE: 12/08/20 TIME: 11:51 Subjective used BIPAP 40% fio2 overnight now on 02 5 lpm no increased cough or SOA Vitals Vital Signs Date Time Temp Pulse Resp B/P (MAP) Pulse Ox O2 Delivery O2 Flow Rate FiO2 12/08/20 11:46 90 Nasal Cannula 5.0 12/08/20 07:00 98.8 108 16 163/95 (117) 98.8 ROS: No Nausea, No Chest Pain, No Abdominal Pain, No Increase Cough General: Alert, Oriented X4 Lungs: Clear Cardiovascular: S1, S2 Abdomen: Soft, Non-tender Neuro Exam: Alert, Oriented Extremities: No Edema Skin: Warm, Dry Labs Laboratory Tests Test 12/06/20 16:43 12/06/20 20:54 12/07/20 07:27 12/07/20 08:25 Glucose (Fingerstick) 129 mg/dL (70-99) 151 mg/dL (70-99) 127 mg/dL (70-99) White Blood Count 9.7 x10^3/uL (4.0-11.0) Red Blood Count 2.93 x10^6/uL (3.50-5.40) Hemoglobin 9.0 g/dL (12.0-15.5) Hematocrit 28.0 % (36.0-47.0) Mean Corpuscular Volume 96 fL (79-100) Mean Corpuscular Hemoglobin 31 pg (25-35) Mean Corpuscular Hemoglobin Concent 32 g/dL (31-37) Red Cell Distribution Width 19.2 % (11.5-14.5) Platelet Count 120 x10^3/uL (140-400) Neutrophils (%) (Auto) 74 % (31-73) Lymphocytes (%) (Auto) 16 % (24-48) Monocytes (%) (Auto) 7 % (0-9) Eosinophils (%) (Auto) 3 % (0-3) Basophils (%) (Auto) 0 % (0-3) Neutrophils # (Auto) 7.2 x10^3/uL (1.8-7.7) Lymphocytes # (Auto) 1.5 x10^3/uL (1.0-4.8) Monocytes # (Auto) 0.7 x10^3/uL (0.0-1.1) Eosinophils # (Auto) 0.3 x10^3/uL (0.0-0.7) Basophils # (Auto) 0.0 x10^3/uL (0.0-0.2) Sodium Level 139 mmol/L (136-145) Potassium Level 4.1 mmol/L (3.5-5.1) Chloride Level 104 mmol/L (98-107) Carbon Dioxide Level 29 mmol/L (21-32) Anion Gap 6 (6-14) Blood Urea Nitrogen 15 mg/dL (7-20) Creatinine 2.2 mg/dL (0.6-1.0) Estimated GFR (Cockcroft-Gault) 27.6 BUN/Creatinine Ratio 7 (6-20) Glucose Level 123 mg/dL (70-99) Calcium Level 7.2 mg/dL (8.5-10.1) Total Bilirubin 0.3 mg/dL (0.2-1.0) Aspartate Amino Transf (AST/SGOT) 19 U/L (15-37) Alanine Aminotransferase (ALT/SGPT) 9 U/L (14-59) Alkaline Phosphatase 108 U/L (46-116) Total Protein 6.1 g/dL (6.4-8.2) Albumin 1.7 g/dL (3.4-5.0) Albumin/Globulin Ratio 0.4 (1.0-1.7) Test 12/07/20 11:48 12/07/20 16:50 12/07/20 21:01 12/08/20 07:31 Glucose (Fingerstick) 97 mg/dL (70-99) 94 mg/dL (70-99) 86 mg/dL (70-99) 83 mg/dL (70-99) Laboratory Tests Test 12/07/20 16:50 12/07/20 21:01 12/08/20 07:31 Glucose (Fingerstick) 94 mg/dL (70-99) 86 mg/dL (70-99) 83 mg/dL (70-99) Medications Active Scripts Medications Dose Route/Sig Max Daily Dose Days Date Category Dose Instructions Tramadol Hcl 50 Mg Tablet 50 Mg PO Q6HRS PRN 11/26/20 Reported Mylanta Maximum Strength Liq (Mag Hydrox/Aluminum Hyd/Simeth) 355 Ml Oral.susp 30 Ml PO PRN PRN 11/26/20 Reported Ativan (Lorazepam) 0.5 Mg Tablet 0.5 Mg PO Q8HRS PRN 11/26/20 Reported Ibu (Ibuprofen) 400 Mg Tablet 1 Tab PO Q6HRS PRN 5 11/26/20 Reported NEEDED FOR PAIN Wellbutrin Xl (Bupropion Hcl) 150 Mg Tab.er.24h 150 Mg PO DAILY 10/31/20 Reported Artificial Tears Drops (Peg 400/Hypromellose/Glycerin) 15 Ml Drops 1 Drop OS QID 30 10/31/20 Reported Folic Acid 0.4 Mg Tablet 0.4 Mg PO DAILY 10/31/20 Reported Duoneb 0.5-3(2.5) Mg/3 Ml (Albuterol/Ipratropium) 3 Ml Ampul.neb 3 Ml NEB Q4HRS 10/31/20 Reported Clonidine Hcl 0.2 Mg Tablet 0.2 Mg PO TID 10/31/20 Reported Multiple Vitamins (Multivitamin) 1 Each Tablet 1 Tab PO DAILY 30 10/31/20 Reported Miralax (Polyethylene Glycol 3350) 17 Gm Powd.pack 1 Packet PO DAILY 2 10/31/20 Reported dissolve in water Famotidine 20 Mg Tablet 20 Mg PO HS 10/31/20 Reported Zofran (Ondansetron Hcl) 4 Mg Tablet 4 Mg PO Q8HRS PRN 12/02/19 Reported Polyvinyl Alcohol 15 Ml Drops 2 Drop EACHEYE Q4HRS 30 12/02/19 Reported Ropinirole Hcl 1 Mg Tablet 1 Mg PO BID 12/02/19 Reported Magnesium Oxide 400 Mg Tablet 400 Mg PO DAILY 12/02/19 Reported Loratadine 10 Mg Tablet 10 Mg PO DAILY 12/02/19 Reported Humalog (Insulin Lispro) 100 Unit/1 Ml Vial 0 SQ BIDWMEALS 12/02/19 Reported 70 - 150 0 units 151 - 200 0 units 201 - 250 2 units 251 - 300 3 units 301 - 349 4 units if FSBS is under 70 or 350 and over call MD [guaifenesin Syrup] 10 Ml PO Q4HRS PRN 12/02/19 Reported Coreg (Carvedilol) 25 Mg Tablet 50 Mg PO BIDWMEALS 12/02/19 Reported Peridex (Chlorhexidine Gluconate) 15 Ml Mouthwash 15 Ml PO BID 30 12/02/19 Reported Swish in mouth for 30 seconds then spit out Calcium Carbonate 500 Mg Tablet 500 Mg PO Q4HRS 12/02/19 Reported Atorvastatin Calcium 10 Mg Tablet 10 Mg PO HS 12/02/19 Reported Acetaminophen 325 Mg Tablet 650 Mg PO Q6HRS 12/02/19 Reported Metformin Hcl 500 Mg Tablet 250 Mg PO BIDWMEALS 12/03/18 Reported Imodium A-D (Loperamide HCl) 2 Mg Capsule 2 Mg PO DAILY PRN 12/03/18 Reported Risperidone 0.5 Mg Tablet 0.5 Mg PO AFTRNOON 03/21/18 Reported Levothyroxine Sodium 112 Mcg Tablet 1 Tab PO DAILY 03/21/18 Reported Advair 500-50 Diskus (Fluticasone/Salmeterol) 1 Each Disk.w.dev 1 Puff IH BID 03/21/18 Reported Nystatin 15 Gm Powder 1 Scott TP PRN BID PRN 03/21/18 Reported Clonazepam (Clonazepam) 0.5 Mg Tablet 1 Tab PO BID 09/30/16 Reported Gas-X (Simethicone) 80 Mg Tab.chew 160 Mg PO Q2HR PRN 02/18/16 Reported Gabapentin (Gabapentin) 100 Mg Capsule 100 Mg PO TID 02/18/16 Reported Impression . IMPRESSION: 1. [id number] hypercapnic respiratory failure secondary to acute exacerbation of chronic obstructive pulmonary disease. Could have been contributed to by effect of benzodiazepine. She was also noted to be off of her oxygen at the skilled care facility and may have triggered her hypoxia. 2. No new infiltrates. 3. Anemia. 4. Chronic kidney disease. 5. Encephalopathy secondary to hypercapnia, now improving. 6. Severe protein-calorie malnutrition. 7. Toxic encephalopathy,resolved 8. obesity suspect karely ohs Plan . RECOMMENDATIONS: Continue supplemental oxygen to keep sats 90% BD ICS Continue BIPAP at night and PRN Avoid benzo/sedative medications use as much as possible Monitor HGB--improved PRN nebs Follow speech recs -- currently on dysphasia I diet PT/OT DVT/GI PPX D/W LEWIS THOMAS MD Dec 08, 2020 11:52
--- NOTE | 2020-12-08 12:00 | NUR ---
PATIENT REFUSED FINGER STICK FOR LUNCH
--- NOTE | 2020-12-08 13:59 | PDOC ---
PROGRESS NOTES Date of Service: DATE: 12/08/20 TIME: 13:58 Chief Complaint Chief Complaint acute Toxic encephalopathy prob overuse of benzodiazepenes, with underlying anxiety, I have decreased the benzos and will stop, change to PRN ambien, recent acute hypoxic respiratory failure from pneumonia, covid, stable from [place] possible aspiration pneumonia RECENT Fall - ct head negative, no other pain complaints, no fracture chronic systolic CHF s/p AICD , last EF 45% History of DVT bilateral legs Obesity BMI 35 Schizophrenia - Hypertension. COVID positive - 10/30/2020, still RECOVERING CKD 3-4, prior acute vasomotor nephropathy anemia, symptomatic, 1 u PRBC given yesterday, conjunctivitis, History of Present Illness History of Present Illness 12/08, more alert today, I think better without ANY BENZOS and we shoudl try to continue this. her ex- and her son Toni were both here today, I discussed plan to DC back to [place] maybe tomorrow, Toni would like to be called if that is the plan 12/07, still very weak, hypoxic, on BIPAP, will try albumin and lasix to try to optimize PULM fxn today cxr in AM if not better 12/06, some confusion this AM. discussed with her son by phone, he will be here today. Bipap PRN some right eye redness, no drainage, will start eye drops and cipro drops 12/05 I started estrogen/progestin today to taper the over prolifeative Endometrium that might be her anemia problem talked to the son at length yesterday will try to DC soon she is awake and getting better/stronger, , limited benzos and markedly better today, speech and PT and OT, restart rehab cont other current, I will decrease. Vitals Vitals Vital Signs Date Time Temp Pulse Resp B/P (MAP) Pulse Ox O2 Delivery O2 Flow Rate FiO2 12/08/20 11:46 90 Nasal Cannula 5.0 12/08/20 11:00 97.8 114 16 157/97 (117) 97.8 Physical Exam General: Alert, Cooperative, No acute distress, Other Heart: Regular rate Lungs: Clear Abdomen: Normal bowel sounds, Soft Extremities: No cyanosis, No edema Skin: No breakdown Labs LABS Laboratory Tests Test 12/07/20 16:50 12/07/20 21:01 12/08/20 07:31 Glucose (Fingerstick) 94 mg/dL (70-99) 86 mg/dL (70-99) 83 mg/dL (70-99) Assessment and Plan Assessmemt and Plan Problems Medical Problems: (1) Acute on chronic respiratory failure Status: Acute (2) Altered mental status Status: Acute Comment Review of Relevant I have reviewed the following items lucas (where applicable) has been applied. Labs Laboratory Tests Test 12/06/20 16:43 12/06/20 20:54 12/07/20 07:27 12/07/20 08:25 Glucose (Fingerstick) 129 mg/dL (70-99) 151 mg/dL (70-99) 127 mg/dL (70-99) White Blood Count 9.7 x10^3/uL (4.0-11.0) Red Blood Count 2.93 x10^6/uL (3.50-5.40) Hemoglobin 9.0 g/dL (12.0-15.5) Hematocrit 28.0 % (36.0-47.0) Mean Corpuscular Volume 96 fL (79-100) Mean Corpuscular Hemoglobin 31 pg (25-35) Mean Corpuscular Hemoglobin Concent 32 g/dL (31-37) Red Cell Distribution Width 19.2 % (11.5-14.5) Platelet Count 120 x10^3/uL (140-400) Neutrophils (%) (Auto) 74 % (31-73) Lymphocytes (%) (Auto) 16 % (24-48) Monocytes (%) (Auto) 7 % (0-9) Eosinophils (%) (Auto) 3 % (0-3) Basophils (%) (Auto) 0 % (0-3) Neutrophils # (Auto) 7.2 x10^3/uL (1.8-7.7) Lymphocytes # (Auto) 1.5 x10^3/uL (1.0-4.8) Monocytes # (Auto) 0.7 x10^3/uL (0.0-1.1) Eosinophils # (Auto) 0.3 x10^3/uL (0.0-0.7) Basophils # (Auto) 0.0 x10^3/uL (0.0-0.2) Sodium Level 139 mmol/L (136-145) Potassium Level 4.1 mmol/L (3.5-5.1) Chloride Level 104 mmol/L (98-107) Carbon Dioxide Level 29 mmol/L (21-32) Anion Gap 6 (6-14) Blood Urea Nitrogen 15 mg/dL (7-20) Creatinine 2.2 mg/dL (0.6-1.0) Estimated GFR (Cockcroft-Gault) 27.6 BUN/Creatinine Ratio 7 (6-20) Glucose Level 123 mg/dL (70-99) Calcium Level 7.2 mg/dL (8.5-10.1) Total Bilirubin 0.3 mg/dL (0.2-1.0) Aspartate Amino Transf (AST/SGOT) 19 U/L (15-37) Alanine Aminotransferase (ALT/SGPT) 9 U/L (14-59) Alkaline Phosphatase 108 U/L (46-116) Total Protein 6.1 g/dL (6.4-8.2) Albumin 1.7 g/dL (3.4-5.0) Albumin/Globulin Ratio 0.4 (1.0-1.7) Test 12/07/20 11:48 12/07/20 16:50 12/07/20 21:01 12/08/20 07:31 Glucose (Fingerstick) 97 mg/dL (70-99) 94 mg/dL (70-99) 86 mg/dL (70-99) 83 mg/dL (70-99) Laboratory Tests Test 12/07/20 16:50 12/07/20 21:01 12/08/20 07:31 Glucose (Fingerstick) 94 mg/dL (70-99) 86 mg/dL (70-99) 83 mg/dL (70-99) Microbiology 12/03/20 Blood Culture - Preliminary, Resulted NO GROWTH AFTER 4 DAYS Medications Current Medications Sodium Chloride 1,000 ml @ 1,000 mls/hr 1X ONCE IV Last administered on 12/03/20at 14:38; Start 12/03/20 at 14:45; Stop 12/03/20 at 15:44; Status DC Acetaminophen (Tylenol) 650 mg Q6HRS PO Last administered on 12/04/20at 06:53; Start 12/04/20 at 00:00; Stop 12/04/20 at 09:09; Status DC Atorvastatin Calcium (Lipitor) 10 mg HS PO Last administered on 12/07/20at 21:43; Start 12/03/20 at 21:00 Bupropion HCl (Wellbutrin Xl) 150 mg DAILY PO Last administered on 12/08/20at 08:28; Start 12/04/20 at 09:00 Calcium Carbonate/ Glycine (Oscal) 500 mg PRN Q4HRS PRN PO GI SYMPTOMS; Start 12/03/20 at 20:00 Famotidine (Pepcid) 20 mg HS PO Last administered on 12/07/20at 21:43; Start 12/03/20 at 21:00 Gabapentin (Neurontin) 100 mg TID PO Last administered on 12/05/20at 08:34; Start 12/03/20 at 21:00; Stop 12/05/20 at 15:12; Status DC Ibuprofen (Motrin) 400 mg PRN Q6HRS PRN PO PAIN; Start 12/03/20 at 18:45 Levothyroxine Sodium (Synthroid) 112 mcg DAILY07 PO Last administered on 12/08/20at 08:28; Start 12/04/20 at 07:00 Al Hydroxide/Mg Hydroxide (Mylanta Plus Xs) 30 ml PRN Q12HR PRN PO UPSET STOMACH; Start 12/03/20 at 18:45 Polyethylene Glycol (miraLAX PACKET) 17 gm DAILY PO Last administered on 12/08/20at 08:28; Start 12/04/20 at 09:00 Dextrose/Sodium Chloride 1,000 ml @ 100 mls/hr Q10H IV Last administered on 12/07/20at 01:14; Start 12/03/20 at 19:00; Stop 12/07/20 at 13:19; Status DC Insulin Human Lispro (HumaLOG) 0-7 UNITS TIDWMEALS SQ ; Start 12/04/20 at 12:00 Dextrose (Dextrose 50%-Water Syringe) 12.5 gm PRN Q15MIN PRN IV SEE COMMENTS; Start 12/04/20 at 09:15 Acetaminophen (Tylenol) 650 mg PRN Q6HRS PRN PO pain Last administered on 12/06/20at 20:40; Start 12/04/20 at 09:15 Clonazepam (KlonoPIN) 0.5 mg BID PO ; Start 12/04/20 at 21:00; Stop 12/04/20 at 13:03; Status DC Lorazepam (Ativan) 0.5 mg PRN Q8HRS PRN PO ANXIETY; Start 12/04/20 at 09:15; Stop 12/06/20 at 09:38; Status DC Ropinirole HCl (Requip) 1 mg BID PO Last administered on 12/08/20at 08:28; Start 12/04/20 at 10:00 Clonazepam (KlonoPIN) 0.5 mg QHS PO Last administered on 12/05/20at 20:20; Start 12/04/20 at 21:00; Stop 12/06/20 at 09:38; Status DC Cyanocobalamin (Vitamin B-12) 1,000 mcg 1X ONCE IM Last administered on 12/04/20at 15:11; Start 12/04/20 at 14:00; Stop 12/04/20 at 14:01; Status DC Estrogens Conjugated (Premarin) 0.625 mg 1X ONCE PO Last administered on 12/05/20at 16:40; Start 12/05/20 at 10:30; Stop 12/05/20 at 10:36; Status DC Estrogens Conjugated (Premarin) 0.3 mg DAILY PO Last administered on 12/08/20at 08:28; Start 12/06/20 at 09:00 Gabapentin (Neurontin) 300 mg QHS PO Last administered on 12/07/20at 21:44; Start 12/05/20 at 21:00 Ciprofloxacin (Ciloxan Ophth) 1 drop QID OU Last administered on 12/08/20at 08:28; Start 12/06/20 at 13:00 Glycerin/ Hypromellose/ Polyethylene (Artificial Tears) 1 drop PRN Q15MIN PRN OU DRY EYE; Start 12/06/20 at 09:45 Zolpidem Tartrate (Ambien) 5 mg PRN QHS PRN PO INSOMNIA, MAY REPEAT IN 1HR; Start 12/06/20 at 09:45 Albuterol/ Ipratropium (Duoneb) 3 ml RTQID NEB Last administered on 12/08/20at 11:46; Start 12/07/20 at 08:00 Budesonide (Pulmicort) 0.5 mg RTBID NEB Last administered on 12/08/20at 07:41; Start 1/23/21 at 08:00 Albumin Human 50 ml @ 50 mls/hr 1X ONCE IV Last administered on 12/07/20at 13:57; Start 12/07/20 at 13:15; Stop 12/07/20 at 14:14; Status DC Furosemide (Lasix) 40 mg 1X ONCE IVP Last administered on 12/07/20at 13:57; Start 12/07/20 at 13:15; Stop 12/07/20 at 13:17; Status DC Active Scripts Active Reported Tramadol Hcl 50 Mg Tablet 50 Mg PO Q6HRS PRN Mylanta Maximum Strength Liq (Mag Hydrox/Aluminum Hyd/Simeth) 355 Ml Oral.susp 30 Ml PO PRN PRN Ativan (Lorazepam) 0.5 Mg Tablet 0.5 Mg PO Q8HRS PRN Ibu (Ibuprofen) 400 Mg Tablet 1 Tab PO Q6HRS PRN 5 Days NEEDED FOR PAIN Wellbutrin Xl (Bupropion Hcl) 150 Mg Tab.er.24h 150 Mg PO DAILY Artificial Tears Drops (Peg 400/Hypromellose/Glycerin) 15 Ml Drops 1 Drop OS QID 30 Days Folic Acid 0.4 Mg Tablet 0.4 Mg PO DAILY Duoneb 0.5-3(2.5) Mg/3 Ml (Albuterol/Ipratropium) 3 Ml Ampul.neb 3 Ml NEB Q4HRS Clonidine Hcl 0.2 Mg Tablet 0.2 Mg PO TID Multiple Vitamins (Multivitamin) 1 Each Tablet 1 Tab PO DAILY 30 Days Miralax (Polyethylene Glycol 3350) 17 Gm Powd.pack 1 Packet PO DAILY 2 Days dissolve in water Famotidine 20 Mg Tablet 20 Mg PO HS Zofran (Ondansetron Hcl) 4 Mg Tablet 4 Mg PO Q8HRS PRN Polyvinyl Alcohol 15 Ml Drops 2 Drop EACHEYE Q4HRS 30 Days Ropinirole Hcl 1 Mg Tablet 1 Mg PO BID Magnesium Oxide 400 Mg Tablet 400 Mg PO DAILY Loratadine 10 Mg Tablet 10 Mg PO DAILY Humalog (Insulin Lispro) 100 Unit/1 Ml Vial 0 SQ BIDWMEALS 70 - 150 0 units 151 - 200 0 units 201 - 250 2 units 251 - 300 3 units 301 - 349 4 units if FSBS is under 70 or 350 and over call MD [guaifenesin Syrup] 10 Ml PO Q4HRS PRN Coreg (Carvedilol) 25 Mg Tablet 50 Mg PO BIDWMEALS Peridex (Chlorhexidine Gluconate) 15 Ml Mouthwash 15 Ml PO BID 30 Days Swish in mouth for 30 seconds then spit out Calcium Carbonate 500 Mg Tablet 500 Mg PO Q4HRS Atorvastatin Calcium 10 Mg Tablet 10 Mg PO HS Acetaminophen 325 Mg Tablet 650 Mg PO Q6HRS Metformin Hcl 500 Mg Tablet 250 Mg PO BIDWMEALS Imodium A-D (Loperamide HCl) 2 Mg Capsule 2 Mg PO DAILY PRN Risperidone 0.5 Mg Tablet 0.5 Mg PO AFTRNOON Levothyroxine Sodium 112 Mcg Tablet 1 Tab PO DAILY Advair 500-50 Diskus (Fluticasone/Salmeterol) 1 Each Disk.w.dev 1 Puff IH BID Nystatin 15 Gm Powder 1 Scott TP PRN BID PRN Clonazepam (Clonazepam) 0.5 Mg Tablet 1 Tab PO BID Gas-X (Simethicone) 80 Mg Tab.chew 160 Mg PO Q2HR PRN Gabapentin (Gabapentin) 100 Mg Capsule 100 Mg PO TID Vitals/I & O Vital Sign - Last 24 Hours 12/07/20 12/07/20 12/07/20 12/07/20 15:00 15:36 19:37 19:40 Temp 99.1 98.3 99.1 98.3 Pulse 98 104 Resp 20 24 B/P (MAP) 149/95 (113) 156/96 (116) Pulse Ox 98 100 95 O2 Delivery BiPAP/CPAP BiPAP/CPAP Bi-pap BiPAP/CPAP 12/07/20 12/07/20 12/08/20 12/08/20 22:02 23:59 01:09 03:01 Temp 98.5 98.9 98.5 98.9 Pulse 94 108 Resp 20 16 B/P (MAP) 160/100 (120) 163/106 (125) Pulse Ox 96 99 98 92 O2 Delivery BiPAP/CPAP BiPAP/CPAP BiPAP/CPAP Nasal Cannula O2 Flow Rate 6.0 12/08/20 12/08/20 12/08/20 12/08/20 07:00 07:43 07:44 08:00 Temp 98.8 98.8 Pulse 108 Resp 16 B/P (MAP) 163/95 (117) Pulse Ox 96 99 100 O2 Delivery Nasal Cannula BiPAP/CPAP Nasal Cannula Bi-pap O2 Flow Rate 6.0 5.0 5.0 12/08/20 12/08/20 12/08/20 09:35 11:00 11:46 Temp 97.8 97.8 Pulse 114 Resp 16 B/P (MAP) 157/97 (117) Pulse Ox 92 90 O2 Delivery Bi-pap Nasal Cannula Nasal Cannula O2 Flow Rate 5.0 6.0 5.0 Intake and Output 12/07/20 12/07/20 12/08/20 15:00 23:00 07:00 Intake Total 300 ml 2 ml 490 ml Output Total 600 ml Balance 300 ml 2 ml -110 ml Justicifation of Admission Dx: Justifications for Admission: Justification of Admission Dx: Yes HOMER BREEN MD Dec 08, 2020 13:59
[2020-12-08 15:00] VITALS: BP 158/101
[2020-12-08] MEDS: POLYVINYL ALCOHOL 1.4% OPHTH SOLUTION 15ML BOTTLE. OU PRN (17:15)
[2020-12-08 19:00] VITALS: BP 147/111
[2020-12-08] MEDS: FAMOTIDINE 20 MG TABLET. PO SCH (20:44)
[2020-12-08] MEDS: ZOLPIDEM 5 MG TABLET. PO PRN (20:44)
[2020-12-08] MEDS: ATORVASTATIN CALCIUM 10 MG TABLET. PO SCH (20:44)
[2020-12-08] MEDS: GABAPENTIN 300 MG CAPSULE. PO SCH (20:44)
[2020-12-08 22:55] VITALS: BP 153/100
[2020-12-09 02:49] VITALS: BP 150/96
[2020-12-09] MEDS: LEVOTHYROXINE 112 MCG TABLET PO SCH (06:32)
[2020-12-09 07:00] VITALS: BP 156/99
[2020-12-09] MEDS: BUDESONIDE 0.5 MG/2 ML NEBU. NEB SCH ×2 (07:31→21:20)
[2020-12-09] MEDS: IPRATRPIUM/ALBUTEROL 0.5/2.5MG 3 ML NEBU. NEB SCH ×4 (07:31→21:20)
[2020-12-09] MEDS: INSULIN LISPRO 300 UNITS/3 ML VIAL. SQ SCH ×3 (08:00→17:00)
[2020-12-09] MEDS: CIPROFLOXACIN 0.3% OPHTH SOLUTION 5ML BOTTLE. OU SCH ×4 (08:58→21:05)
[2020-12-09] MEDS: buPROPion XL 150 MG TAB.ER.24H. PO SCH (08:58)
[2020-12-09] MEDS: POLYETHYLENE GLYCOL 3350 17 GM PACKET. PO SCH (08:58)
[2020-12-09] MEDS: rOPINIRole 1 MG TABLET. PO SCH ×2 (08:58→21:04)
[2020-12-09] MEDS: ESTROGENS, CONJUGATED 0.3 MG TABLET PO SCH (08:58)
[2020-12-09 10:08] VITALS: BP 169/108
--- NOTE | 2020-12-09 10:40 | PDOC ---
PULMONARY PROGRESS NOTES DATE: 12/09/20 TIME: 10:42 Subjective PT. is sitting EOB, working with PT Remains on 5 liters N/C Wore BIPAP overnight Vitals Vital Signs Date Time Temp Pulse Resp B/P (MAP) Pulse Ox O2 Delivery O2 Flow Rate FiO2 12/09/20 10:08 99.3 119 20 169/108 (128) 90 Nasal Cannula 5.0 99.3 ROS: No Nausea, No Chest Pain, No Abdominal Pain, No Increase Cough General: Alert, Oriented X4 Lungs: Clear Cardiovascular: S1, S2 Abdomen: Soft, Non-tender Neuro Exam: Alert, Oriented Extremities: No Edema Skin: Warm, Dry Labs Laboratory Tests Test 12/07/20 11:48 12/07/20 16:50 12/07/20 21:01 12/08/20 07:31 Glucose (Fingerstick) 97 mg/dL (70-99) 94 mg/dL (70-99) 86 mg/dL (70-99) 83 mg/dL (70-99) Test 12/08/20 17:14 12/08/20 20:43 12/09/20 06:56 Glucose (Fingerstick) 86 mg/dL (70-99) 90 mg/dL (70-99) 92 mg/dL (70-99) Laboratory Tests Test 12/08/20 17:14 12/08/20 20:43 12/09/20 06:56 Glucose (Fingerstick) 86 mg/dL (70-99) 90 mg/dL (70-99) 92 mg/dL (70-99) Medications Active Scripts Medications Dose Route/Sig Max Daily Dose Days Date Category Dose Instructions Tramadol Hcl 50 Mg Tablet 50 Mg PO Q6HRS PRN 11/26/20 Reported Mylanta Maximum Strength Liq (Mag Hydrox/Aluminum Hyd/Simeth) 355 Ml Oral.susp 30 Ml PO PRN PRN 11/26/20 Reported Ativan (Lorazepam) 0.5 Mg Tablet 0.5 Mg PO Q8HRS PRN 11/26/20 Reported Ibu (Ibuprofen) 400 Mg Tablet 1 Tab PO Q6HRS PRN 5 11/26/20 Reported NEEDED FOR PAIN Wellbutrin Xl (Bupropion Hcl) 150 Mg Tab.er.24h 150 Mg PO DAILY 10/31/20 Reported Artificial Tears Drops (Peg 400/Hypromellose/Glycerin) 15 Ml Drops 1 Drop OS QID 30 10/31/20 Reported Folic Acid 0.4 Mg Tablet 0.4 Mg PO DAILY 10/31/20 Reported Duoneb 0.5-3(2.5) Mg/3 Ml (Albuterol/Ipratropium) 3 Ml Ampul.neb 3 Ml NEB Q4HRS 10/31/20 Reported Clonidine Hcl 0.2 Mg Tablet 0.2 Mg PO TID 10/31/20 Reported Multiple Vitamins (Multivitamin) 1 Each Tablet 1 Tab PO DAILY 30 10/31/20 Reported Miralax (Polyethylene Glycol 3350) 17 Gm Powd.pack 1 Packet PO DAILY 2 10/31/20 Reported dissolve in water Famotidine 20 Mg Tablet 20 Mg PO HS 10/31/20 Reported Zofran (Ondansetron Hcl) 4 Mg Tablet 4 Mg PO Q8HRS PRN 12/02/19 Reported Polyvinyl Alcohol 15 Ml Drops 2 Drop EACHEYE Q4HRS 30 12/02/19 Reported Ropinirole Hcl 1 Mg Tablet 1 Mg PO BID 12/02/19 Reported Magnesium Oxide 400 Mg Tablet 400 Mg PO DAILY 12/02/19 Reported Loratadine 10 Mg Tablet 10 Mg PO DAILY 12/02/19 Reported Humalog (Insulin Lispro) 100 Unit/1 Ml Vial 0 SQ BIDWMEALS 12/02/19 Reported 70 - 150 0 units 151 - 200 0 units 201 - 250 2 units 251 - 300 3 units 301 - 349 4 units if FSBS is under 70 or 350 and over call MD [guaifenesin Syrup] 10 Ml PO Q4HRS PRN 12/02/19 Reported Coreg (Carvedilol) 25 Mg Tablet 50 Mg PO BIDWMEALS 12/02/19 Reported Peridex (Chlorhexidine Gluconate) 15 Ml Mouthwash 15 Ml PO BID 30 12/02/19 Reported Swish in mouth for 30 seconds then spit out Calcium Carbonate 500 Mg Tablet 500 Mg PO Q4HRS 12/02/19 Reported Atorvastatin Calcium 10 Mg Tablet 10 Mg PO HS 12/02/19 Reported Acetaminophen 325 Mg Tablet 650 Mg PO Q6HRS 12/02/19 Reported Metformin Hcl 500 Mg Tablet 250 Mg PO BIDWMEALS 12/03/18 Reported Imodium A-D (Loperamide HCl) 2 Mg Capsule 2 Mg PO DAILY PRN 12/03/18 Reported Risperidone 0.5 Mg Tablet 0.5 Mg PO AFTRNOON 03/21/18 Reported Levothyroxine Sodium 112 Mcg Tablet 1 Tab PO DAILY 03/21/18 Reported Advair 500-50 Diskus (Fluticasone/Salmeterol) 1 Each Disk.w.dev 1 Puff IH BID 03/21/18 Reported Nystatin 15 Gm Powder 1 Scott TP PRN BID PRN 03/21/18 Reported Clonazepam (Clonazepam) 0.5 Mg Tablet 1 Tab PO BID 09/30/16 Reported Gas-X (Simethicone) 80 Mg Tab.chew 160 Mg PO Q2HR PRN 02/18/16 Reported Gabapentin (Gabapentin) 100 Mg Capsule 100 Mg PO TID 02/18/16 Reported Impression . IMPRESSION: 1. [id number] hypercapnic respiratory failure secondary to acute exacerbation of chronic obstructive pulmonary disease. Could have been contributed to by effect of benzodiazepine. She was also noted to be off of her oxygen at the skilled care facility and may have triggered her hypoxia. 2. No new infiltrates. 3. Anemia. 4. Chronic kidney disease. 5. Encephalopathy secondary to hypercapnia, now improving. 6. Severe protein-calorie malnutrition. 7. Toxic encephalopathy,resolved 8. obesity suspect karely ohs Plan . RECOMMENDATIONS: Continue supplemental oxygen to keep sats 90%, currently on 5 liters N/C Continue NEBS including pulmicort Continue BIPAP at night and PRN Avoid benzo/sedative medications Monitor HGB--improved/ stable Follow speech recs -- currently on dysphasia I diet PT/OT DVT/GI PPX D/W RN Pt. would benefit from LTACH placement, as she continue to have readmission to hospital MERRY STOKES MD Dec 09, 2020 10:40
[2020-12-09 14:23] VITALS: BP 141/117
--- NOTE | 2020-12-09 15:41 | PDOC ---
[facility] PROGRESS NOTE Date of Service DOS: DATE: 12/09/20 TIME: 15:38 Chief Complaint Chief Complaint acute Toxic encephalopathy possibly due overuse of benzodiazepenes, with underlying anxiety - DC'd ativan and started on Ambien QHS recent acute hypoxic respiratory failure from pneumonia, covid, stable from [place] possible aspiration pneumonia RECENT Fall - ct head negative, no other pain complaints, no fracture chronic systolic CHF s/p AICD , last EF 45% History of DVT bilateral legs Obesity BMI 35 Schizophrenia - Hypertension. COVID positive - 10/30/2020, still RECOVERING CKD 3-4, prior acute vasomotor nephropathy anemia, symptomatic, 1 u PRBC given yesterday, conjunctivitis, History of Present Illness History of Present Illness 12/09/20 No acute events overnight. tolerating BiPAP PRN and saturating 90% on 5 NC. > 50% time spent in patient chart, labs, and image review and discussion with RN and SW 12/08, more alert today, I think better without ANY BENZOS and we shoudl try to continue this. her ex- and her son Toni were both here today, I discussed plan to DC back to [place] maybe tomorrow, Toni would like to be called if that is the plan 12/07, still very weak, hypoxic, on BIPAP, will try albumin and lasix to try to optimize PULM fxn today cxr in AM if not better 12/06, some confusion this AM. discussed with her son by phone, he will be here today. Bipap PRN some right eye redness, no drainage, will start eye drops and cipro drops 12/05 I started estrogen/progestin today to taper the over prolifeative Endometrium that might be her anemia problem talked to the son at length yesterday will try to DC soon she is awake and getting better/stronger, , limited benzos and markedly better today, speech and PT and OT, restart rehab cont other current, I will decrease. Vitals/I&O Vitals/I&O: Vital Signs Date Time Temp Pulse Resp B/P (MAP) Pulse Ox O2 Delivery O2 Flow Rate FiO2 12/09/20 14:23 99.3 116 20 141/117 (125) 90 Nasal Cannula 5.0 99.3 I & O 12/08/20 12/08/20 12/09/20 15:00 23:00 07:00 Intake Total 300 ml 550 ml 0 ml Output Total 400 ml Balance 300 ml 550 ml -400 ml Physical Exam General: Alert, Cooperative, No acute distress, Other Heart: Regular rate Lungs: Clear Abdomen: Normal bowel sounds, Soft Extremities: No cyanosis, No edema Skin: No breakdown Labs Labs: Laboratory Tests Test 12/08/20 17:14 12/08/20 20:43 12/09/20 06:56 12/09/20 11:08 Glucose (Fingerstick) 86 mg/dL (70-99) 90 mg/dL (70-99) 92 mg/dL (70-99) 122 mg/dL (70-99) Assessment and Plan Assessmemt and Plan Problems Medical Problems: (1) Acute on chronic respiratory failure Status: Acute (2) Altered mental status Status: Acute Comment Review of Relevant I have reviewed the following items lucas (where applicable) has been applied. Justifications for Admission Other Justification Fall, new right pleural effusion SARAVANAN VINCENT MD Dec 09, 2020 15:41
[2020-12-09 19:05] VITALS: BP 133/88
[2020-12-09] MEDS: GABAPENTIN 300 MG CAPSULE. PO SCH (21:04)
[2020-12-09] MEDS: ATORVASTATIN CALCIUM 10 MG TABLET. PO SCH (21:04)
[2020-12-09] MEDS: ZOLPIDEM 5 MG TABLET. PO PRN (21:04)
[2020-12-09] MEDS: FAMOTIDINE 20 MG TABLET. PO SCH (21:04)
[2020-12-09 23:00] VITALS: BP 140/96
[2020-12-10 03:35] VITALS: BP 143/86
[2020-12-10] MEDS: LEVOTHYROXINE 112 MCG TABLET PO SCH (05:58)
[2020-12-10 07:00] VITALS: BP 148/85
[2020-12-10] MEDS: BUDESONIDE 0.5 MG/2 ML NEBU. NEB SCH ×2 (07:34→21:05)
[2020-12-10] MEDS: IPRATRPIUM/ALBUTEROL 0.5/2.5MG 3 ML NEBU. NEB SCH ×4 (07:34→21:05)
[2020-12-10] MEDS: INSULIN LISPRO 300 UNITS/3 ML VIAL. SQ SCH ×3 (08:00→17:00)
[2020-12-10] MEDS: POLYETHYLENE GLYCOL 3350 17 GM PACKET. PO SCH (08:53)
[2020-12-10] MEDS: CIPROFLOXACIN 0.3% OPHTH SOLUTION 5ML BOTTLE. OU SCH ×4 (08:53→20:18)
[2020-12-10] MEDS: rOPINIRole 1 MG TABLET. PO SCH ×2 (08:53→20:17)
[2020-12-10] MEDS: buPROPion XL 150 MG TAB.ER.24H. PO SCH (08:53)
[2020-12-10 10:48] VITALS: BP 148/99
--- NOTE | 2020-12-10 10:51 | PDOC ---
PULMONARY PROGRESS NOTES DATE: 12/10/20 TIME: 10:49 Subjective No overnight concerns from nursing Remains on 5 liters N/C Wore BIPAP overnight Vitals Vital Signs Date Time Temp Pulse Resp B/P (MAP) Pulse Ox O2 Delivery O2 Flow Rate FiO2 12/10/20 08:00 Nasal Cannula 5.0 12/10/20 07:42 98 12/10/20 07:00 98.0 111 24 148/85 (106) 98.0 ROS: No Nausea, No Chest Pain, No Abdominal Pain, No Increase Cough General: Alert, Oriented X4 Lungs: Clear Cardiovascular: S1, S2 Abdomen: Soft, Non-tender Neuro Exam: Alert, Oriented Extremities: No Edema Skin: Warm, Dry Labs Laboratory Tests Test 12/08/20 17:14 12/08/20 20:43 12/09/20 06:56 12/09/20 11:08 Glucose (Fingerstick) 86 mg/dL (70-99) 90 mg/dL (70-99) 92 mg/dL (70-99) 122 mg/dL (70-99) Test 12/09/20 16:04 12/09/20 20:45 12/10/20 07:48 Glucose (Fingerstick) 107 mg/dL (70-99) 111 mg/dL (70-99) 91 mg/dL (70-99) Laboratory Tests Test 12/09/20 11:08 12/09/20 16:04 12/09/20 20:45 12/10/20 07:48 Glucose (Fingerstick) 122 mg/dL (70-99) 107 mg/dL (70-99) 111 mg/dL (70-99) 91 mg/dL (70-99) Medications Active Scripts Medications Dose Route/Sig Max Daily Dose Days Date Category Dose Instructions Tramadol Hcl 50 Mg Tablet 50 Mg PO Q6HRS PRN 11/26/20 Reported Mylanta Maximum Strength Liq (Mag Hydrox/Aluminum Hyd/Simeth) 355 Ml Oral.susp 30 Ml PO PRN PRN 11/26/20 Reported Ativan (Lorazepam) 0.5 Mg Tablet 0.5 Mg PO Q8HRS PRN 11/26/20 Reported Ibu (Ibuprofen) 400 Mg Tablet 1 Tab PO Q6HRS PRN 5 11/26/20 Reported NEEDED FOR PAIN Wellbutrin Xl (Bupropion Hcl) 150 Mg Tab.er.24h 150 Mg PO DAILY 10/31/20 Reported Artificial Tears Drops (Peg 400/Hypromellose/Glycerin) 15 Ml Drops 1 Drop OS QID 30 10/31/20 Reported Folic Acid 0.4 Mg Tablet 0.4 Mg PO DAILY 10/31/20 Reported Duoneb 0.5-3(2.5) Mg/3 Ml (Albuterol/Ipratropium) 3 Ml Ampul.neb 3 Ml NEB Q4HRS 10/31/20 Reported Clonidine Hcl 0.2 Mg Tablet 0.2 Mg PO TID 10/31/20 Reported Multiple Vitamins (Multivitamin) 1 Each Tablet 1 Tab PO DAILY 30 10/31/20 Reported Miralax (Polyethylene Glycol 3350) 17 Gm Powd.pack 1 Packet PO DAILY 2 10/31/20 Reported dissolve in water Famotidine 20 Mg Tablet 20 Mg PO HS 10/31/20 Reported Zofran (Ondansetron Hcl) 4 Mg Tablet 4 Mg PO Q8HRS PRN 12/02/19 Reported Polyvinyl Alcohol 15 Ml Drops 2 Drop EACHEYE Q4HRS 30 12/02/19 Reported Ropinirole Hcl 1 Mg Tablet 1 Mg PO BID 12/02/19 Reported Magnesium Oxide 400 Mg Tablet 400 Mg PO DAILY 12/02/19 Reported Loratadine 10 Mg Tablet 10 Mg PO DAILY 12/02/19 Reported Humalog (Insulin Lispro) 100 Unit/1 Ml Vial 0 SQ BIDWMEALS 12/02/19 Reported 70 - 150 0 units 151 - 200 0 units 201 - 250 2 units 251 - 300 3 units 301 - 349 4 units if FSBS is under 70 or 350 and over call MD [guaifenesin Syrup] 10 Ml PO Q4HRS PRN 12/02/19 Reported Coreg (Carvedilol) 25 Mg Tablet 50 Mg PO BIDWMEALS 12/02/19 Reported Peridex (Chlorhexidine Gluconate) 15 Ml Mouthwash 15 Ml PO BID 30 12/02/19 Reported Swish in mouth for 30 seconds then spit out Calcium Carbonate 500 Mg Tablet 500 Mg PO Q4HRS 12/02/19 Reported Atorvastatin Calcium 10 Mg Tablet 10 Mg PO HS 12/02/19 Reported Acetaminophen 325 Mg Tablet 650 Mg PO Q6HRS 12/02/19 Reported Metformin Hcl 500 Mg Tablet 250 Mg PO BIDWMEALS 12/03/18 Reported Imodium A-D (Loperamide HCl) 2 Mg Capsule 2 Mg PO DAILY PRN 12/03/18 Reported Risperidone 0.5 Mg Tablet 0.5 Mg PO AFTRNOON 03/21/18 Reported Levothyroxine Sodium 112 Mcg Tablet 1 Tab PO DAILY 03/21/18 Reported Advair 500-50 Diskus (Fluticasone/Salmeterol) 1 Each Disk.w.dev 1 Puff IH BID 03/21/18 Reported Nystatin 15 Gm Powder 1 Scott TP PRN BID PRN 03/21/18 Reported Clonazepam (Clonazepam) 0.5 Mg Tablet 1 Tab PO BID 09/30/16 Reported Gas-X (Simethicone) 80 Mg Tab.chew 160 Mg PO Q2HR PRN 02/18/16 Reported Gabapentin (Gabapentin) 100 Mg Capsule 100 Mg PO TID 02/18/16 Reported Impression . IMPRESSION: 1. [id number] hypercapnic respiratory failure secondary to acute exacerbation of chronic obstructive pulmonary disease. Could have been contributed to by effect of benzodiazepine. She was also noted to be off of her oxygen at the skilled care facility and may have triggered her hypox---improved with use of BIPAP 2. No new infiltrates. 3. Anemia. 4. Chronic kidney disease. 5. Encephalopathy secondary to hypercapnia--resolved 6. Severe protein-calorie malnutrition. 7. Toxic encephalopathy,resolved 8. obesity suspect karely ohs Plan . RECOMMENDATIONS: Continue supplemental oxygen to keep sats 90%, currently on 5 liters N/C Continue NEBS including pulmicort Continue BIPAP at night and PRN Avoid benzo/sedative medications Monitor HGB--improved/ stable Follow speech recs -- currently on dysphasia I diet PT/OT DVT/GI PPX D/W workers' compensation hearings officer for D/C planning ----Pt. would benefit from LTACH placement, as she continue to have readmission to hospital MERRY STOKES MD Dec 10, 2020 10:50
--- NOTE | 2020-12-10 11:24 | NUR ---
SS following up with discharge planning. SS reviewed pt chart and discussed with pt RN. Pt is currently requiring oxygen at five liters nasal canula. COVID19 recovered. Pt is LTC resident from [facility], ; fax [phone], and is able to return when medically stable. SS will continue to follow for discharge planning.
--- NOTE | 2020-12-10 11:57 | PDOC ---
[employer] PROGRESS NOTE Date of Service DOS: DATE: 12/10/20 TIME: 11:56 Chief Complaint Chief Complaint acute Toxic encephalopathy possibly due overuse of benzodiazepenes, with underlying anxiety - DC'd ativan and started on Ambien QHS recent acute hypoxic respiratory failure from pneumonia, covid, stable from [place] possible aspiration pneumonia RECENT Fall - ct head negative, no other pain complaints, no fracture chronic systolic CHF s/p AICD , last EF 45% History of DVT bilateral legs Obesity BMI 35 Schizophrenia - Hypertension. 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 Patient is tolerating BiPAP as needed and saturating on 5 L nasal cannula at 98%. No increased work of breath. Pending acceptance into SNF. Patient's chart, labs, images were reviewed and discussed with RN 12/09/20 No acute events overnight. tolerating BiPAP PRN and saturating 90% on 5 NC. > 50% time spent in patient chart, labs, and image review and discussion with RN and SW 12/08, more alert today, I think better without ANY BENZOS and we shoudl try to continue this. her ex- and her son Toni were both here today, I discussed plan to DC back to [place] maybe tomorrow, Toni would like to be called if that is the plan 12/07, still very weak, hypoxic, on BIPAP, will try albumin and lasix to try to optimize PULM fxn today cxr in AM if not better 12/06, some confusion this AM. discussed with her son by phone, he will be here today. Bipap PRN some right eye redness, no drainage, will start eye drops and cipro drops 12/05 I started estrogen/progestin today to taper the over prolifeative Endometrium that might be her anemia problem talked to the son at length yesterday will try to DC soon she is awake and getting better/stronger, , limited benzos and markedly better today, speech and PT and OT, restart rehab cont other current, I will decrease. Vitals/I&O Vitals/I&O: Vital Signs Date Time Temp Pulse Resp B/P (MAP) Pulse Ox O2 Delivery O2 Flow Rate FiO2 1/26/21 10:48 98.4 109 24 148/99 (115) 92 Nasal Cannula 5.0 98.4 I & O 12/09/20 12/09/20 12/10/20 15:00 23:00 07:00 Intake Total 1000 ml 0 ml Output Total 200 ml 250 ml Balance 800 ml -250 ml Physical Exam General: Alert, Cooperative, No acute distress, Other Heart: Regular rate Lungs: Clear Abdomen: Normal bowel sounds, Soft Extremities: No cyanosis, No edema Skin: No breakdown Labs Labs: Laboratory Tests Test 12/09/20 16:04 12/09/20 20:45 12/10/20 07:48 Glucose (Fingerstick) 107 mg/dL (70-99) 111 mg/dL (70-99) 91 mg/dL (70-99) Assessment and Plan Assessmemt and Plan Problems Medical Problems: (1) Acute on chronic respiratory failure Status: Acute (2) Altered mental status Status: Acute Comment Review of Relevant I have reviewed the following items lucas (where applicable) has been applied. Justifications for Admission Other Justification Fall, new right pleural effusion SARAVANAN VINCENT MD Dec 10, 2020 11:57
[2020-12-10] MEDS: ESTROGENS, CONJUGATED 0.3 MG TABLET PO SCH (13:30)
[2020-12-10 14:47] VITALS: BP 125/86
[2020-12-10 19:45] VITALS: BP 122/60
[2020-12-10] MEDS: ZOLPIDEM 5 MG TABLET. PO PRN (20:17)
[2020-12-10] MEDS: ATORVASTATIN CALCIUM 10 MG TABLET. PO SCH (20:17)
[2020-12-10] MEDS: GABAPENTIN 300 MG CAPSULE. PO SCH (20:18)
[2020-12-10] MEDS: FAMOTIDINE 20 MG TABLET. PO SCH (20:18)
[2020-12-10 22:53] VITALS: BP 146/92
[2020-12-11 03:01] VITALS: BP 124/83
[2020-12-11] MEDS: LEVOTHYROXINE 112 MCG TABLET PO SCH (06:35)
[2020-12-11 07:00] VITALS: BP 141/82
[2020-12-11] MEDS: IPRATRPIUM/ALBUTEROL 0.5/2.5MG 3 ML NEBU. NEB SCH ×4 (07:42→21:24)
[2020-12-11] MEDS: BUDESONIDE 0.5 MG/2 ML NEBU. NEB SCH ×2 (07:42→21:24)
[2020-12-11] MEDS: INSULIN LISPRO 300 UNITS/3 ML VIAL. SQ SCH ×3 (08:00→17:00)
[2020-12-11] MEDS: rOPINIRole 1 MG TABLET. PO SCH ×2 (08:53→21:29)
[2020-12-11] MEDS: buPROPion XL 150 MG TAB.ER.24H. PO SCH (08:53)
[2020-12-11] MEDS: POLYETHYLENE GLYCOL 3350 17 GM PACKET. PO SCH (08:53)
[2020-12-11] MEDS: CIPROFLOXACIN 0.3% OPHTH SOLUTION 5ML BOTTLE. OU SCH ×4 (08:53→21:30)
[2020-12-11] MEDS: ESTROGENS, CONJUGATED 0.3 MG TABLET PO SCH (08:53)
--- NOTE | 2020-12-11 09:02 | PDOC ---
PULMONARY PROGRESS NOTES DATE: 12/11/20 TIME: 09:00 Subjective No overnight concerns from nursing Remains on 5 liters N/C Continues with BIPAP overnight Vitals Vital Signs Date Time Temp Pulse Resp B/P (MAP) Pulse Ox O2 Delivery O2 Flow Rate FiO2 12/11/20 07:43 99 Nasal Cannula 5.0 12/11/20 07:00 98.7 112 16 141/82 (101) 98.7 ROS: No Nausea, No Chest Pain, No Abdominal Pain, No Increase Cough General: Alert, Oriented X4 Lungs: Clear Cardiovascular: S1, S2 Abdomen: Soft, Non-tender Neuro Exam: Alert, Oriented Extremities: No Edema Skin: Warm, Dry Labs Laboratory Tests Test 12/09/20 11:08 12/09/20 16:04 12/09/20 20:45 12/10/20 07:48 Glucose (Fingerstick) 122 mg/dL (70-99) 107 mg/dL (70-99) 111 mg/dL (70-99) 91 mg/dL (70-99) Test 12/10/20 11:24 12/10/20 16:14 12/10/20 19:57 12/11/20 07:51 Glucose (Fingerstick) 91 mg/dL (70-99) 88 mg/dL (70-99) 109 mg/dL (70-99) 91 mg/dL (70-99) Laboratory Tests Test 12/10/20 11:24 12/10/20 16:14 12/10/20 19:57 12/11/20 07:51 Glucose (Fingerstick) 91 mg/dL (70-99) 88 mg/dL (70-99) 109 mg/dL (70-99) 91 mg/dL (70-99) Medications Active Scripts Medications Dose Route/Sig Max Daily Dose Days Date Category Dose Instructions Tramadol Hcl 50 Mg Tablet 50 Mg PO Q6HRS PRN 11/26/20 Reported Mylanta Maximum Strength Liq (Mag Hydrox/Aluminum Hyd/Simeth) 355 Ml Oral.susp 30 Ml PO PRN PRN 11/26/20 Reported Ativan (Lorazepam) 0.5 Mg Tablet 0.5 Mg PO Q8HRS PRN 11/26/20 Reported Ibu (Ibuprofen) 400 Mg Tablet 1 Tab PO Q6HRS PRN 5 11/26/20 Reported NEEDED FOR PAIN Wellbutrin Xl (Bupropion Hcl) 150 Mg Tab.er.24h 150 Mg PO DAILY 10/31/20 Reported Artificial Tears Drops (Peg 400/Hypromellose/Glycerin) 15 Ml Drops 1 Drop OS QID 30 10/31/20 Reported Folic Acid 0.4 Mg Tablet 0.4 Mg PO DAILY 10/31/20 Reported Duoneb 0.5-3(2.5) Mg/3 Ml (Albuterol/Ipratropium) 3 Ml Ampul.neb 3 Ml NEB Q4HRS 10/31/20 Reported Clonidine Hcl 0.2 Mg Tablet 0.2 Mg PO TID 10/31/20 Reported Multiple Vitamins (Multivitamin) 1 Each Tablet 1 Tab PO DAILY 30 10/31/20 Reported Miralax (Polyethylene Glycol 3350) 17 Gm Powd.pack 1 Packet PO DAILY 2 10/31/20 Reported dissolve in water Famotidine 20 Mg Tablet 20 Mg PO HS 10/31/20 Reported Zofran (Ondansetron Hcl) 4 Mg Tablet 4 Mg PO Q8HRS PRN 12/02/19 Reported Polyvinyl Alcohol 15 Ml Drops 2 Drop EACHEYE Q4HRS 30 12/02/19 Reported Ropinirole Hcl 1 Mg Tablet 1 Mg PO BID 12/02/19 Reported Magnesium Oxide 400 Mg Tablet 400 Mg PO DAILY 12/02/19 Reported Loratadine 10 Mg Tablet 10 Mg PO DAILY 12/02/19 Reported Humalog (Insulin Lispro) 100 Unit/1 Ml Vial 0 SQ BIDWMEALS 12/02/19 Reported 70 - 150 0 units 151 - 200 0 units 201 - 250 2 units 251 - 300 3 units 301 - 349 4 units if FSBS is under 70 or 350 and over call MD [guaifenesin Syrup] 10 Ml PO Q4HRS PRN 12/02/19 Reported Coreg (Carvedilol) 25 Mg Tablet 50 Mg PO BIDWMEALS 12/02/19 Reported Peridex (Chlorhexidine Gluconate) 15 Ml Mouthwash 15 Ml PO BID 30 12/02/19 Reported Swish in mouth for 30 seconds then spit out Calcium Carbonate 500 Mg Tablet 500 Mg PO Q4HRS 12/02/19 Reported Atorvastatin Calcium 10 Mg Tablet 10 Mg PO HS 12/02/19 Reported Acetaminophen 325 Mg Tablet 650 Mg PO Q6HRS 1/18/20 Reported Metformin Hcl 500 Mg Tablet 250 Mg PO BIDWMEALS 12/03/18 Reported Imodium A-D (Loperamide HCl) 2 Mg Capsule 2 Mg PO DAILY PRN 12/03/18 Reported Risperidone 0.5 Mg Tablet 0.5 Mg PO AFTRNOON 03/21/18 Reported Levothyroxine Sodium 112 Mcg Tablet 1 Tab PO DAILY 03/21/18 Reported Advair 500-50 Diskus (Fluticasone/Salmeterol) 1 Each Disk.w.dev 1 Puff IH BID 03/21/18 Reported Nystatin 15 Gm Powder 1 Scott TP PRN BID PRN 03/21/18 Reported Clonazepam (Clonazepam) 0.5 Mg Tablet 1 Tab PO BID 09/30/16 Reported Gas-X (Simethicone) 80 Mg Tab.chew 160 Mg PO Q2HR PRN 02/18/16 Reported Gabapentin (Gabapentin) 100 Mg Capsule 100 Mg PO TID 02/18/16 Reported Impression . IMPRESSION: 1. [id number] hypercapnic respiratory failure secondary to acute exacerbation of chronic obstructive pulmonary disease. Could have been contributed to by effect of benzodiazepine. She was also noted to be off of her oxygen at the [facility] care facility and may have triggered her hypox---improved with use of BIPAP 2. No new infiltrates. 3. Anemia. 4. Chronic kidney disease. 5. Encephalopathy secondary to hypercapnia--resolved 6. Severe protein-calorie malnutrition. 7. Toxic encephalopathy,resolved 8. obesity suspect karely ohs Plan . RECOMMENDATIONS: Continue supplemental oxygen to keep sats 90%, currently on 5 liters N/C, wean as tolerated Continue NEBS including pulmicort Continue BIPAP at night and PRN, with day time napping Avoid benzo/sedative medications Monitor HGB--improved/ stable Follow speech recs -- currently on dysphasia I diet PT/OT DVT/GI PPX D/W hydroponics worker for D/C planning ----Pt. would benefit from LTACH placement, as she continue to have readmission to hospital We will see on PRN basis, please call with questions or concerns MERRY STOKES MD Dec 11, 2020 09:02
[2020-12-11 09:56] LABS: BASO # 0.1 x10^3/uL (0.0-0.2); BASO % 1 % (0-3); EOS # 0.1 x10^3/uL (0.0-0.7); EOS % 1 % (0-3); HEMATOCRIT 30.6 % (36.0-47.0); HEMOGLOBIN 9.7 g/dL (12.0-15.5); LYMPH # 1.6 x10^3/uL (1.0-4.8); LYMPH % 13 % (24-48); MEAN CORPUSCULAR HEMOGLOBIN 30 pg (25-35); MEAN CORPUSCULAR HGB CONC 32 g/dL (31-37); MEAN CORPUSCULAR VOLUME 95 fL (79-100); MONO # 0.8 x10^3/uL (0.0-1.1); MONO % 7 % (0-9); NEUT # 9.4 x10^3/uL (1.8-7.7); NEUT % 78 % (31-73); PLATELET COUNT 121 x10^3/uL (140-400); RED BLOOD COUNT 3.22 x10^6/uL (3.50-5.40); RED CELL DISTRIBUTION WIDTH 18.9 % (11.5-14.5)
[2020-12-11 10:10] LABS: CALCIUM 7.6 mg/dL (8.5-10.1); CREATININE 2.8 mg/dL (0.6-1.0); GFR 20.9; MAGNESIUM 2.1 mg/dL (1.8-2.4); POTASSIUM 4.8 mmol/L (3.5-5.1)
--- NOTE | 2020-12-11 11:57 | PDOC ---
[employer] PROGRESS NOTE Date of Service DOS: DATE: 12/11/20 TIME: 11:46 Chief Complaint Chief Complaint acute Toxic encephalopathy possibly due overuse of benzodiazepenes, with underlying anxiety - DC'd ativan and started on Ambien QHS recent acute hypoxic respiratory failure from pneumonia, covid, stable from DC possible aspiration pneumonia RECENT Fall - ct head negative, no other pain complaints, no fracture chronic systolic CHF s/p AICD , last EF 45% History of DVT bilateral legs Obesity BMI 35 Schizophrenia - Hypertension. 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 Patient is currently on 5 L nasal cannula saturating 99%. No complaints voiced at this time. No agitation or lethargic episodes overnight. No benzos given. Patient's chart, labs, images were reviewed and discussed with RN 12/10/2020 No acute events overnight. Patient is tolerating BiPAP as needed and saturating on 5 L nasal cannula at 98%. No increased work of breath. Pending acceptance into SNF. Patient's chart, labs, images were reviewed and discussed with RN 12/09/20 No acute events overnight. tolerating BiPAP PRN and saturating 90% on 5 NC. > 50% time spent in patient chart, labs, and image review and discussion with RN and SW 12/08, more alert today, I think better without ANY BENZOS and we shoudl try to continue this. her ex- and her son Toni were both here today, I discussed plan to DC back to [place] maybe tomorrow, Toni would like to be called if that is the plan 12/07, still very weak, hypoxic, on BIPAP, will try albumin and lasix to try to optimize PULM fxn today cxr in AM if not better 12/06, some confusion this AM. discussed with her son by phone, he will be here today. Bipap PRN some right eye redness, no drainage, will start eye drops and cipro drops 12/05 I started estrogen/progestin today to taper the over prolifeative Endometrium that might be her anemia problem talked to the son at length yesterday will try to DC soon she is awake and getting better/stronger, , limited benzos and markedly better today, speech and PT and OT, restart rehab cont other current, I will decrease. Vitals/I&O Vitals/I&O: Vital Signs Date Time Temp Pulse Resp B/P (MAP) Pulse Ox O2 Delivery O2 Flow Rate FiO2 12/11/20 08:00 Nasal Cannula 5.0 12/11/20 07:43 99 12/11/20 07:00 98.7 112 16 141/82 (101) 98.7 I & O 12/10/20 12/10/20 12/11/20 15:00 23:00 07:00 Intake Total 220 ml 300 ml 150 ml Output Total 400 ml Balance 220 ml -100 ml 150 ml Physical Exam General: Alert, Cooperative, No acute distress, Other Heart: Regular rate Lungs: Clear Abdomen: Normal bowel sounds, Soft Extremities: No cyanosis, No edema Skin: No breakdown Labs Labs: Laboratory Tests Test 12/10/20 16:14 12/10/20 19:57 12/11/20 07:51 12/11/20 09:15 Glucose (Fingerstick) 88 mg/dL (70-99) 109 mg/dL (70-99) 91 mg/dL (70-99) White Blood Count 12.0 x10^3/uL (4.0-11.0) Red Blood Count 3.22 x10^6/uL (3.50-5.40) Hemoglobin 9.7 g/dL (12.0-15.5) Hematocrit 30.6 % (36.0-47.0) Mean Corpuscular Volume 95 fL (79-100) Mean Corpuscular Hemoglobin 30 pg (25-35) Mean Corpuscular Hemoglobin Concent 32 g/dL (31-37) Red Cell Distribution Width 18.9 % (11.5-14.5) Platelet Count 121 x10^3/uL (140-400) Neutrophils (%) (Auto) 78 % (31-73) Lymphocytes (%) (Auto) 13 % (24-48) Monocytes (%) (Auto) 7 % (0-9) Eosinophils (%) (Auto) 1 % (0-3) Basophils (%) (Auto) 1 % (0-3) Neutrophils # (Auto) 9.4 x10^3/uL (1.8-7.7) Lymphocytes # (Auto) 1.6 x10^3/uL (1.0-4.8) Monocytes # (Auto) 0.8 x10^3/uL (0.0-1.1) Eosinophils # (Auto) 0.1 x10^3/uL (0.0-0.7) Basophils # (Auto) 0.1 x10^3/uL (0.0-0.2) Sodium Level 135 mmol/L (136-145) Potassium Level 4.8 mmol/L (3.5-5.1) Chloride Level 98 mmol/L (98-107) Carbon Dioxide Level 27 mmol/L (21-32) Anion Gap 10 (6-14) Blood Urea Nitrogen 25 mg/dL (7-20) Creatinine 2.8 mg/dL (0.6-1.0) Estimated GFR (Cockcroft-Gault) 20.9 Glucose Level 76 mg/dL (70-99) Calcium Level 7.6 mg/dL (8.5-10.1) Magnesium Level 2.1 mg/dL (1.8-2.4) Assessment and Plan Assessmemt and Plan Problems Medical Problems: (1) Acute on chronic respiratory failure Status: Acute (2) Altered mental status Status: Acute Comment Review of Relevant I have reviewed the following items lucas (where applicable) has been applied. Justifications for Admission Other Justification Fall, new right pleural effusion SARAVANAN VINCENT MD Dec 11, 2020 11:57
--- NOTE | 2020-12-11 14:19 | NUR ---
SS following up with discharge planning. SS reviewed pt chart and discussed with pt RN. Pt is currently requiring oxygen at five liters nasal canula. COVID19 recovered. Pt needing BIPAP at HS and PRN. Dr. Tovar requesting LTACH referral. SS phoned and faxed referral to [facility], ; fax [phone]. Pt's RN notified. SS will continue to follow for discharge planning.
[2020-12-11 15:07] VITALS: BP 118/77
[2020-12-11 19:50] VITALS: BP 133/81
[2020-12-11] MEDS: ATORVASTATIN CALCIUM 10 MG TABLET. PO SCH (21:29)
[2020-12-11] MEDS: IBUPROFEN 400 MG TABLET. PO PRN (21:29)
[2020-12-11] MEDS: FAMOTIDINE 20 MG TABLET. PO SCH (21:29)
[2020-12-11] MEDS: GABAPENTIN 300 MG CAPSULE. PO SCH (21:29)
[2020-12-11] MEDS: ACETAMINOPHEN 325 MG TABLET. PO PRN (21:29)
[2020-12-11] MEDS: POLYVINYL ALCOHOL 1.4% OPHTH SOLUTION 15ML BOTTLE. OU PRN (21:30)
[2020-12-11] MEDS: ZOLPIDEM 5 MG TABLET. PO PRN (21:30)
[2020-12-11 23:06] VITALS: BP 141/83
[2020-12-12 03:08] VITALS: BP 136/90
[2020-12-12] MEDS: LEVOTHYROXINE 112 MCG TABLET PO SCH (06:38)
[2020-12-12 07:00] VITALS: BP 151/101
[2020-12-12] MEDS: BUDESONIDE 0.5 MG/2 ML NEBU. NEB SCH ×2 (07:48→20:32)
[2020-12-12] MEDS: IPRATRPIUM/ALBUTEROL 0.5/2.5MG 3 ML NEBU. NEB SCH ×4 (07:48→20:32)
[2020-12-12] MEDS: rOPINIRole 1 MG TABLET. PO SCH ×2 (09:24→21:38)
[2020-12-12] MEDS: ESTROGENS, CONJUGATED 0.3 MG TABLET PO SCH (09:24)
[2020-12-12] MEDS: CIPROFLOXACIN 0.3% OPHTH SOLUTION 5ML BOTTLE. OU SCH ×4 (09:24→21:38)
[2020-12-12] MEDS: POLYETHYLENE GLYCOL 3350 17 GM PACKET. PO SCH (09:24)
[2020-12-12] MEDS: buPROPion XL 150 MG TAB.ER.24H. PO SCH (09:24)
[2020-12-12] MEDS: INSULIN LISPRO 300 UNITS/3 ML VIAL. SQ SCH ×3 (09:25→16:51)
[2020-12-12 10:30] VITALS: BP 136/92
--- NOTE | 2020-12-12 10:53 | PDOC ---
PULMONARY PROGRESS NOTES DATE: 12/12/20 TIME: 10:52 Subjective No overnight concerns from nursing Remains on 5 liters N/C Continues with BIPAP overnight Vitals Vital Signs Date Time Temp Pulse Resp B/P (MAP) Pulse Ox O2 Delivery O2 Flow Rate FiO2 12/12/20 10:30 97.7 100 22 136/92 (107) 98 Nasal Cannula 5.0 97.7 ROS: No Nausea, No Chest Pain, No Abdominal Pain, No Increase Cough General: Alert, Oriented X4 Lungs: Clear Cardiovascular: S1, S2 Abdomen: Soft, Non-tender Neuro Exam: Alert, Oriented Extremities: No Edema Skin: Warm, Dry Labs Laboratory Tests Test 12/10/20 11:24 12/10/20 16:14 12/10/20 19:57 12/11/20 07:51 Glucose (Fingerstick) 91 mg/dL (70-99) 88 mg/dL (70-99) 109 mg/dL (70-99) 91 mg/dL (70-99) Test 12/11/20 09:15 12/11/20 12:05 12/11/20 16:57 12/11/20 18:25 White Blood Count 12.0 x10^3/uL (4.0-11.0) Red Blood Count 3.22 x10^6/uL (3.50-5.40) Hemoglobin 9.7 g/dL (12.0-15.5) Hematocrit 30.6 % (36.0-47.0) Mean Corpuscular Volume 95 fL (79-100) Mean Corpuscular Hemoglobin 30 pg (25-35) Mean Corpuscular Hemoglobin Concent 32 g/dL (31-37) Red Cell Distribution Width 18.9 % (11.5-14.5) Platelet Count 121 x10^3/uL (140-400) Neutrophils (%) (Auto) 78 % (31-73) Lymphocytes (%) (Auto) 13 % (24-48) Monocytes (%) (Auto) 7 % (0-9) Eosinophils (%) (Auto) 1 % (0-3) Basophils (%) (Auto) 1 % (0-3) Neutrophils # (Auto) 9.4 x10^3/uL (1.8-7.7) Lymphocytes # (Auto) 1.6 x10^3/uL (1.0-4.8) Monocytes # (Auto) 0.8 x10^3/uL (0.0-1.1) Eosinophils # (Auto) 0.1 x10^3/uL (0.0-0.7) Basophils # (Auto) 0.1 x10^3/uL (0.0-0.2) Sodium Level 135 mmol/L (136-145) Potassium Level 4.8 mmol/L (3.5-5.1) Chloride Level 98 mmol/L (98-107) Carbon Dioxide Level 27 mmol/L (21-32) Anion Gap 10 (6-14) Blood Urea Nitrogen 25 mg/dL (7-20) Creatinine 2.8 mg/dL (0.6-1.0) Estimated GFR (Cockcroft-Gault) 20.9 Glucose Level 76 mg/dL (70-99) Calcium Level 7.6 mg/dL (8.5-10.1) Magnesium Level 2.1 mg/dL (1.8-2.4) Glucose (Fingerstick) 87 mg/dL (70-99) 68 mg/dL (70-99) 100 mg/dL (70-99) Test 12/11/20 20:59 12/12/20 06:53 Glucose (Fingerstick) 76 mg/dL (70-99) 62 mg/dL (70-99) Laboratory Tests Test 12/11/20 12:05 12/11/20 16:57 12/11/20 18:25 12/11/20 20:59 Glucose (Fingerstick) 87 mg/dL (70-99) 68 mg/dL (70-99) 100 mg/dL (70-99) 76 mg/dL (70-99) Test 12/12/20 06:53 Glucose (Fingerstick) 62 mg/dL (70-99) Medications Active Scripts Medications Dose Route/Sig Max Daily Dose Days Date Category Dose Instructions Tramadol Hcl 50 Mg Tablet 50 Mg PO Q6HRS PRN 11/26/20 Reported Mylanta Maximum Strength Liq (Mag Hydrox/Aluminum Hyd/Simeth) 355 Ml Oral.susp 30 Ml PO PRN PRN 11/26/20 Reported Ativan (Lorazepam) 0.5 Mg Tablet 0.5 Mg PO Q8HRS PRN 1/12/21 Reported Ibu (Ibuprofen) 400 Mg Tablet 1 Tab PO Q6HRS PRN 5 11/26/20 Reported NEEDED FOR PAIN Wellbutrin Xl (Bupropion Hcl) 150 Mg Tab.er.24h 150 Mg PO DAILY 10/31/20 Reported Artificial Tears Drops (Peg 400/Hypromellose/Glycerin) 15 Ml Drops 1 Drop OS QID 30 10/31/20 Reported Folic Acid 0.4 Mg Tablet 0.4 Mg PO DAILY 10/31/20 Reported Duoneb 0.5-3(2.5) Mg/3 Ml (Albuterol/Ipratropium) 3 Ml Ampul.neb 3 Ml NEB Q4HRS 10/31/20 Reported Clonidine Hcl 0.2 Mg Tablet 0.2 Mg PO TID 10/31/20 Reported Multiple Vitamins (Multivitamin) 1 Each Tablet 1 Tab PO DAILY 30 10/31/20 Reported Miralax (Polyethylene Glycol 3350) 17 Gm Powd.pack 1 Packet PO DAILY 2 10/31/20 Reported dissolve in water Famotidine 20 Mg Tablet 20 Mg PO HS 10/31/20 Reported Zofran (Ondansetron Hcl) 4 Mg Tablet 4 Mg PO Q8HRS PRN 12/02/19 Reported Polyvinyl Alcohol 15 Ml Drops 2 Drop EACHEYE Q4HRS 30 12/02/19 Reported Ropinirole Hcl 1 Mg Tablet 1 Mg PO BID 12/02/19 Reported Magnesium Oxide 400 Mg Tablet 400 Mg PO DAILY 12/02/19 Reported Loratadine 10 Mg Tablet 10 Mg PO DAILY 12/02/19 Reported Humalog (Insulin Lispro) 100 Unit/1 Ml Vial 0 SQ BIDWMEALS 12/02/19 Reported 70 - 150 0 units 151 - 200 0 units 201 - 250 2 units 251 - 300 3 units 301 - 349 4 units if FSBS is under 70 or 350 and over call MD [guaifenesin Syrup] 10 Ml PO Q4HRS PRN 12/02/19 Reported Coreg (Carvedilol) 25 Mg Tablet 50 Mg PO BIDWMEALS 12/02/19 Reported Peridex (Chlorhexidine Gluconate) 15 Ml Mouthwash 15 Ml PO BID 30 12/02/19 Reported Swish in mouth for 30 seconds then spit out Calcium Carbonate 500 Mg Tablet 500 Mg PO Q4HRS 12/02/19 Reported Atorvastatin Calcium 10 Mg Tablet 10 Mg PO HS 12/02/19 Reported Acetaminophen 325 Mg Tablet 650 Mg PO Q6HRS 12/02/19 Reported Metformin Hcl 500 Mg Tablet 250 Mg PO BIDWMEALS 12/03/18 Reported Imodium A-D (Loperamide HCl) 2 Mg Capsule 2 Mg PO DAILY PRN 12/03/18 Reported Risperidone 0.5 Mg Tablet 0.5 Mg PO AFTRNOON 03/21/18 Reported Levothyroxine Sodium 112 Mcg Tablet 1 Tab PO DAILY 03/21/18 Reported Advair 500-50 Diskus (Fluticasone/Salmeterol) 1 Each Disk.w.dev 1 Puff IH BID 03/21/18 Reported Nystatin 15 Gm Powder 1 Scott TP PRN BID PRN 03/21/18 Reported Clonazepam (Clonazepam) 0.5 Mg Tablet 1 Tab PO BID 09/30/16 Reported Gas-X (Simethicone) 80 Mg Tab.chew 160 Mg PO Q2HR PRN 02/18/16 Reported Gabapentin (Gabapentin) 100 Mg Capsule 100 Mg PO TID 02/18/16 Reported Impression . IMPRESSION: 1. [id number] hypercapnic respiratory failure secondary to acute exacerbation of chronic obstructive pulmonary disease. Could have been contributed to by effect of benzodiazepine. She was also noted to be off of her oxygen at the skilled care facility and may have triggered her hypox---improved with use of BIPAP 2. No new infiltrates. 3. Anemia-- improved 4. Chronic kidney disease. 5. Encephalopathy secondary to hypercapnia--resolved 6. Severe protein-calorie malnutrition. 7. Toxic encephalopathy,resolved 8. obesity suspect karely ohs Plan . RECOMMENDATIONS: Continue supplemental oxygen to keep sats 90%, currently on 5 liters N/C, wean as tolerated Continue NEBS including pulmicort Continue BIPAP at night and PRN, with day time napping Avoid benzo/sedative medications Follow speech recs -- currently on dysphasia I diet PT/OT DVT/GI PPX D/W aniline press worker for D/C planning ----Pt. would benefit from LTACH placement, as she continue to have readmission to hospital We will see on PRN basis, please call with questions or concerns MERRY STOKES MD Dec 12, 2020 10:53
--- NOTE | 2020-12-12 11:34 | NUR ---
SS following up with discharge planning. SS reviewed pt chart and discussed with pt RN. Pt is currently requiring oxygen at five liters nasal canula. COVID19 recovered. Pt needing BIPAP at HS and PRN. Dr. Tovar requested LTACH referral. [facility] reported that they will not have any Medicaid beds until next week. SS phoned and faxed referral to [facility], ; fax [phone]. SS discussed with pt's son, Toni, and pt's son agreeable to LTACH. SS will continue to follow for discharge planning.
--- NOTE | 2020-12-12 13:54 | PDOC ---
[employer] PROGRESS NOTE Date of Service DOS: DATE: 12/12/20 TIME: 13:53 Chief Complaint Chief Complaint acute Toxic encephalopathy possibly due overuse of benzodiazepenes, with underlying anxiety - DC'd ativan and started on Ambien QHS recent acute hypoxic respiratory failure from pneumonia, covid, stable from DC possible aspiration pneumonia RECENT Fall - ct head negative, no other pain complaints, no fracture chronic systolic CHF s/p AICD , last EF 45% History of DVT bilateral legs Obesity BMI 35 Schizophrenia - Hypertension. COVID positive - 10/30/2020, still RECOVERING CKD 3-4, prior acute vasomotor nephropathy anemia, symptomatic, 1 u PRBC given yesterday, conjunctivitis, History of Present Illness History of Present Illness 12/04/2020 No acute events overnight. Patient saturating well on 10 l nasal cannula 99%. No complaints voiced at this time. No nursing concerns. Pending LTAC approval. Patient's chart, labs, images were reviewed and discussed with RN 12/11/2020 No acute events overnight. Patient is currently on 5 L nasal cannula saturating 99%. No complaints voiced at this time. No agitation or lethargic episodes overnight. No benzos given. Patient's chart, labs, images were reviewed and discussed with RN 12/10/2020 No acute events overnight. Patient is tolerating BiPAP as needed and saturating on 5 L nasal cannula at 98%. No increased work of breath. Pending acceptance into SNF. Patient's chart, labs, images were reviewed and discussed with RN 12/09/20 No acute events overnight. tolerating BiPAP PRN and saturating 90% on 5 NC. > 50% time spent in patient chart, labs, and image review and discussion with RN and SW 12/08, more alert today, I think better without ANY BENZOS and we shoudl try to continue this. her ex- and her son Toni were both here today, I discussed plan to DC back to [place] maybe tomorrow, Toni would like to be called if that is the plan 12/07, still very weak, hypoxic, on BIPAP, will try albumin and lasix to try to optimize PULM fxn today cxr in AM if not better 12/06, some confusion this AM. discussed with her son by phone, he will be here today. Bipap PRN some right eye redness, no drainage, will start eye drops and cipro drops 12/05 I started estrogen/progestin today to taper the over prolifeative Endometrium that might be her anemia problem talked to the son at length yesterday will try to DC soon she is awake and getting better/stronger, , limited benzos and markedly better today, speech and PT and OT, restart rehab cont other current, I will decrease. Vitals/I&O Vitals/I&O: Vital Signs Date Time Temp Pulse Resp B/P (MAP) Pulse Ox O2 Delivery O2 Flow Rate FiO2 12/12/20 12:23 97 Nasal Cannula 5.0 12/12/20 10:30 97.7 100 22 136/92 (107) 97.7 I & O 12/11/20 12/11/20 12/12/20 15:00 23:00 07:00 Intake Total 100 ml 440 ml 120 ml Output Total 350 ml Balance 100 ml 90 ml 120 ml Physical Exam General: Alert, Cooperative, No acute distress, Other Heart: Regular rate Lungs: Clear Abdomen: Normal bowel sounds, Soft Extremities: No cyanosis, No edema Skin: No breakdown Labs Labs: Laboratory Tests Test 12/11/20 16:57 12/11/20 18:25 12/11/20 20:59 12/12/20 06:53 Glucose (Fingerstick) 68 mg/dL (70-99) 100 mg/dL (70-99) 76 mg/dL (70-99) 62 mg/dL (70-99) Test 12/12/20 11:01 Glucose (Fingerstick) 84 mg/dL (70-99) Assessment and Plan Assessmemt and Plan Problems Medical Problems: (1) Acute on chronic respiratory failure Status: Acute (2) Altered mental status Status: Acute Comment Review of Relevant I have reviewed the following items lucas (where applicable) has been applied. Justifications for Admission Other Justification Fall, new right pleural effusion SARAVANAN VINCENT MD Dec 12, 2020 13:54
--- NOTE | 2020-12-12 14:26 | NUR ---
RN NOTE this RN took over care for this patient and agrees with previous RN's assessments and notes. patient assisted to left side and wedge placed call light within reach. will continue to monitor
[2020-12-12 14:43] VITALS: BP 140/80
--- NOTE | 2020-12-12 16:22 | NUR ---
SS following up with discharge planning. Pt accepted at [facility] pending insurance authorization from Medicaid. SS will continue to follow for discharge planning.
--- NOTE | 2020-12-12 17:01 | NUR ---
RN NOTE patients blood sugar was 65 gave 120ml of apple juice came up to 70 gave another 120 ml of apple juice and assisted patient with dinner. will continue to monitor
[2020-12-12 19:25] VITALS: BP 115/80
[2020-12-12] MEDS: ATORVASTATIN CALCIUM 10 MG TABLET. PO SCH (21:38)
[2020-12-12] MEDS: FAMOTIDINE 20 MG TABLET. PO SCH (21:38)
[2020-12-12] MEDS: IBUPROFEN 400 MG TABLET. PO PRN (21:39)
[2020-12-12] MEDS: ZOLPIDEM 5 MG TABLET. PO PRN (21:39)
[2020-12-12] MEDS: GABAPENTIN 300 MG CAPSULE. PO SCH (21:39)
[2020-12-12 23:15] VITALS: BP 106/74
[2020-12-13 03:25] VITALS: BP 100/71
[2020-12-13] MEDS: LEVOTHYROXINE 112 MCG TABLET PO SCH (05:30)
[2020-12-13 07:00] VITALS: BP 127/88
[2020-12-13] MEDS: BUDESONIDE 0.5 MG/2 ML NEBU. NEB SCH ×2 (07:58→19:41)
[2020-12-13] MEDS: IPRATRPIUM/ALBUTEROL 0.5/2.5MG 3 ML NEBU. NEB SCH ×4 (07:58→19:41)
[2020-12-13] MEDS: INSULIN LISPRO 300 UNITS/3 ML VIAL. SQ SCH ×3 (08:00→17:00)
[2020-12-13] MEDS: rOPINIRole 1 MG TABLET. PO SCH ×2 (08:22→21:36)
[2020-12-13] MEDS: buPROPion XL 150 MG TAB.ER.24H. PO SCH (08:23)
[2020-12-13] MEDS: ESTROGENS, CONJUGATED 0.3 MG TABLET PO SCH (08:23)
[2020-12-13] MEDS: CIPROFLOXACIN 0.3% OPHTH SOLUTION 5ML BOTTLE. OU SCH ×4 (08:23→21:36)
[2020-12-13] MEDS: POLYETHYLENE GLYCOL 3350 17 GM PACKET. PO SCH (08:23)
--- NOTE | 2020-12-13 09:38 | PDOC ---
PULMONARY PROGRESS NOTES DATE: 12/13/20 TIME: 09:37 Subjective No overnight concerns from nursing Remains on 4 liters N/C Continues with BIPAP overnight Vitals Vital Signs Date Time Temp Pulse Resp B/P (MAP) Pulse Ox O2 Delivery O2 Flow Rate FiO2 12/13/20 07:59 98 Nasal Cannula 5.0 12/13/20 07:00 97.7 98 18 127/88 (101) 97.7 ROS: No Nausea, No Chest Pain, No Abdominal Pain, No Increase Cough General: Alert, Oriented X4 Lungs: Clear Cardiovascular: S1, S2 Abdomen: Soft, Non-tender Neuro Exam: Alert, Oriented Extremities: No Edema Skin: Warm, Dry Labs Laboratory Tests Test 12/11/20 12:05 12/11/20 16:57 12/11/20 18:25 12/11/20 20:59 Glucose (Fingerstick) 87 mg/dL (70-99) 68 mg/dL (70-99) 100 mg/dL (70-99) 76 mg/dL (70-99) Test 12/12/20 06:53 12/12/20 11:01 12/12/20 16:03 12/12/20 17:00 Glucose (Fingerstick) 62 mg/dL (70-99) 84 mg/dL (70-99) 65 mg/dL (70-99) 70 mg/dL (70-99) Test 12/12/20 20:53 12/13/20 07:12 Glucose (Fingerstick) 69 mg/dL (70-99) 75 mg/dL (70-99) Laboratory Tests Test 12/12/20 11:01 12/12/20 16:03 12/12/20 17:00 12/12/20 20:53 Glucose (Fingerstick) 84 mg/dL (70-99) 65 mg/dL (70-99) 70 mg/dL (70-99) 69 mg/dL (70-99) Test 12/13/20 07:12 Glucose (Fingerstick) 75 mg/dL (70-99) Medications Active Scripts Medications Dose Route/Sig Max Daily Dose Days Date Category Dose Instructions Tramadol Hcl 50 Mg Tablet 50 Mg PO Q6HRS PRN 11/26/20 Reported Mylanta Maximum Strength Liq (Mag Hydrox/Aluminum Hyd/Simeth) 355 Ml Oral.susp 30 Ml PO PRN PRN 11/26/20 Reported Ativan (Lorazepam) 0.5 Mg Tablet 0.5 Mg PO Q8HRS PRN 11/26/20 Reported Ibu (Ibuprofen) 400 Mg Tablet 1 Tab PO Q6HRS PRN 5 11/26/20 Reported NEEDED FOR PAIN Wellbutrin Xl (Bupropion Hcl) 150 Mg Tab.er.24h 150 Mg PO DAILY 10/31/20 Reported Artificial Tears Drops (Peg 400/Hypromellose/Glycerin) 15 Ml Drops 1 Drop OS QID 30 10/31/20 Reported Folic Acid 0.4 Mg Tablet 0.4 Mg PO DAILY 10/31/20 Reported Duoneb 0.5-3(2.5) Mg/3 Ml (Albuterol/Ipratropium) 3 Ml Ampul.neb 3 Ml NEB Q4HRS 10/31/20 Reported Clonidine Hcl 0.2 Mg Tablet 0.2 Mg PO TID 10/31/20 Reported Multiple Vitamins (Multivitamin) 1 Each Tablet 1 Tab PO DAILY 30 10/31/20 Reported Miralax (Polyethylene Glycol 3350) 17 Gm Powd.pack 1 Packet PO DAILY 2 10/31/20 Reported dissolve in water Famotidine 20 Mg Tablet 20 Mg PO HS 10/31/20 Reported Zofran (Ondansetron Hcl) 4 Mg Tablet 4 Mg PO Q8HRS PRN 12/02/19 Reported Polyvinyl Alcohol 15 Ml Drops 2 Drop EACHEYE Q4HRS 30 12/02/19 Reported Ropinirole Hcl 1 Mg Tablet 1 Mg PO BID 12/02/19 Reported Magnesium Oxide 400 Mg Tablet 400 Mg PO DAILY 12/02/19 Reported Loratadine 10 Mg Tablet 10 Mg PO DAILY 12/02/19 Reported Humalog (Insulin Lispro) 100 Unit/1 Ml Vial 0 SQ BIDWMEALS 12/02/19 Reported 70 - 150 0 units 151 - 200 0 units 201 - 250 2 units 251 - 300 3 units 301 - 349 4 units if FSBS is under 70 or 350 and over call MD [guaifenesin Syrup] 10 Ml PO Q4HRS PRN 12/02/19 Reported Coreg (Carvedilol) 25 Mg Tablet 50 Mg PO BIDWMEALS 12/02/19 Reported Peridex (Chlorhexidine Gluconate) 15 Ml Mouthwash 15 Ml PO BID 30 12/02/19 Reported Swish in mouth for 30 seconds then spit out Calcium Carbonate 500 Mg Tablet 500 Mg PO Q4HRS 12/02/19 Reported Atorvastatin Calcium 10 Mg Tablet 10 Mg PO HS 12/02/19 Reported Acetaminophen 325 Mg Tablet 650 Mg PO Q6HRS 12/02/19 Reported Metformin Hcl 500 Mg Tablet 250 Mg PO BIDWMEALS 12/03/18 Reported Imodium A-D (Loperamide HCl) 2 Mg Capsule 2 Mg PO DAILY PRN 12/03/18 Reported Risperidone 0.5 Mg Tablet 0.5 Mg PO AFTRNOON 03/21/18 Reported Levothyroxine Sodium 112 Mcg Tablet 1 Tab PO DAILY 03/21/18 Reported Advair 500-50 Diskus (Fluticasone/Salmeterol) 1 Each Disk.w.dev 1 Puff IH BID 03/21/18 Reported Nystatin 15 Gm Powder 1 Scott TP PRN BID PRN 03/21/18 Reported Clonazepam (Clonazepam) 0.5 Mg Tablet 1 Tab PO BID 09/30/16 Reported Gas-X (Simethicone) 80 Mg Tab.chew 160 Mg PO Q2HR PRN 02/18/16 Reported Gabapentin (Gabapentin) 100 Mg Capsule 100 Mg PO TID 02/18/16 Reported Impression . IMPRESSION: 1. Qxfqr-my-oneeabq hypercapnic respiratory failure secondary to acute exacerbation of chronic obstructive pulmonary disease. Could have been contributed to by effect of benzodiazepine. She was also noted to be off of her oxygen at the skilled care facility and may have triggered her hypox---improved with use of BIPAP 2. No new infiltrates. 3. Anemia-- improved 4. Chronic kidney disease. 5. Encephalopathy secondary to hypercapnia--resolved 6. Severe protein-calorie malnutrition. 7. Toxic encephalopathy,resolved 8. obesity suspect karely ohs Plan . 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 would benefit from LTACH placement, as she continue to have readmission to hospital We will see on PRN basis, please call with questions or concerns MIGUEL NOE MD Dec 13, 2020 09:38
[2020-12-13 10:17] LABS: BASO # 0.2 x10^3/uL (0.0-0.2); BASO % 2 % (0-3); EOS # 0.2 x10^3/uL (0.0-0.7); EOS % 2 % (0-3); HEMATOCRIT 28.8 % (36.0-47.0); HEMOGLOBIN 9.3 g/dL (12.0-15.5); LYMPH # 1.5 x10^3/uL (1.0-4.8); LYMPH % 16 % (24-48); MEAN CORPUSCULAR HEMOGLOBIN 30 pg (25-35); MEAN CORPUSCULAR HGB CONC 32 g/dL (31-37); MEAN CORPUSCULAR VOLUME 94 fL (79-100); MONO # 0.7 x10^3/uL (0.0-1.1); MONO % 8 % (0-9); NEUT # 6.5 x10^3/uL (1.8-7.7); NEUT % 72 % (31-73); PLATELET COUNT 175 x10^3/uL (140-400); RED BLOOD COUNT 3.08 x10^6/uL (3.50-5.40); RED CELL DISTRIBUTION WIDTH 18.6 % (11.5-14.5)
[2020-12-13 10:25] LABS: CALCIUM 7.7 mg/dL (8.5-10.1); CREATININE 2.7 mg/dL (0.6-1.0); GFR 21.8; MAGNESIUM 2.3 mg/dL (1.8-2.4); POTASSIUM 4.9 mmol/L (3.5-5.1)
[2020-12-13 10:47] VITALS: BP 109/77
--- NOTE | 2020-12-13 11:46 | PDOC ---
[employer] PROGRESS NOTE Date of Service DOS: DATE: 12/13/20 TIME: 11:45 Chief Complaint Chief Complaint acute Toxic encephalopathy possibly due overuse of benzodiazepenes, with underlying anxiety - DC'd ativan and started on Ambien QHS recent acute hypoxic respiratory failure from pneumonia, covid, stable from DC possible aspiration pneumonia RECENT Fall - ct head negative, no other pain complaints, no fracture chronic systolic CHF s/p AICD , last EF 45% History of DVT bilateral legs Obesity BMI 35 Schizophrenia - Hypertension. COVID positive - 10/30/2020, still RECOVERING CKD 3-4, prior acute vasomotor nephropathy anemia, symptomatic, 1 u PRBC given yesterday, conjunctivitis, History of Present Illness History of Present Illness 12/13/2020 No acute events overnight. Saturating 98% on 5 L nasal cannula. No complaints voiced at this time and no concerns from nursing. [facility]. Patient's chart, labs, images were reviewed and discussed with RN 12/12/2020 No acute events overnight. Patient saturating well on 10 l nasal cannula 99%. No complaints voiced at this time. No nursing concerns. Pending LTAC approval. Patient's chart, labs, images were reviewed and discussed with RN 12/11/2020 No acute events overnight. Patient is currently on 5 L nasal cannula saturating 99%. No complaints voiced at this time. No agitation or lethargic episodes overnight. No benzos given. Patient's chart, labs, images were reviewed and discussed with RN 12/10/2020 No acute events overnight. Patient is tolerating BiPAP as needed and saturating on 5 L nasal cannula at 98%. No increased work of breath. Pending acceptance into SNF. Patient's chart, labs, images were reviewed and discussed with RN 12/09/20 No acute events overnight. tolerating BiPAP PRN and saturating 90% on 5 NC. > 50% time spent in patient chart, labs, and image review and discussion with RN and SW 12/08, more alert today, I think better without ANY BENZOS and we shoudl try to continue this. her ex- and her son Toni were both here today, I discussed plan to DC back to [place] maybe tomorrow, Toni would like to be called if that is the plan 12/07, still very weak, hypoxic, on BIPAP, will try albumin and lasix to try to optimize PULM fxn today cxr in AM if not better 12/06, some confusion this AM. discussed with her son by phone, he will be here today. Bipap PRN some right eye redness, no drainage, will start eye drops and cipro drops 12/05 I started estrogen/progestin today to taper the over prolifeative Endometrium that might be her anemia problem talked to the son at length yesterday will try to DC soon she is awake and getting better/stronger, , limited benzos and markedly better today, speech and PT and OT, restart rehab cont other current, I will decrease. Vitals/I&O Vitals/I&O: Vital Signs Date Time Temp Pulse Resp B/P (MAP) Pulse Ox O2 Delivery O2 Flow Rate FiO2 12/13/20 11:19 98 Nasal Cannula 5.0 12/13/20 10:47 97.8 106 18 109/77 (88) 97.8 I & O 12/12/20 12/12/20 12/13/20 15:00 23:00 07:00 Intake Total 700 ml 0 ml Balance 700 ml 0 ml Physical Exam General: Alert, Cooperative, No acute distress, Other Heart: Regular rate Lungs: Clear Abdomen: Normal bowel sounds, Soft Extremities: No cyanosis, No edema Skin: No breakdown Labs Labs: Laboratory Tests Test 12/12/20 16:03 12/12/20 17:00 12/12/20 20:53 12/13/20 07:12 Glucose (Fingerstick) 65 mg/dL (70-99) 70 mg/dL (70-99) 69 mg/dL (70-99) 75 mg/dL (70-99) Test 12/13/20 09:35 12/13/20 11:13 White Blood Count 9.0 x10^3/uL (4.0-11.0) Red Blood Count 3.08 x10^6/uL (3.50-5.40) Hemoglobin 9.3 g/dL (12.0-15.5) Hematocrit 28.8 % (36.0-47.0) Mean Corpuscular Volume 94 fL (79-100) Mean Corpuscular Hemoglobin 30 pg (25-35) Mean Corpuscular Hemoglobin Concent 32 g/dL (31-37) Red Cell Distribution Width 18.6 % (11.5-14.5) Platelet Count 175 x10^3/uL (140-400) Neutrophils (%) (Auto) 72 % (31-73) Lymphocytes (%) (Auto) 16 % (24-48) Monocytes (%) (Auto) 8 % (0-9) Eosinophils (%) (Auto) 2 % (0-3) Basophils (%) (Auto) 2 % (0-3) Neutrophils # (Auto) 6.5 x10^3/uL (1.8-7.7) Lymphocytes # (Auto) 1.5 x10^3/uL (1.0-4.8) Monocytes # (Auto) 0.7 x10^3/uL (0.0-1.1) Eosinophils # (Auto) 0.2 x10^3/uL (0.0-0.7) Basophils # (Auto) 0.2 x10^3/uL (0.0-0.2) Sodium Level 133 mmol/L (136-145) Potassium Level 4.9 mmol/L (3.5-5.1) Chloride Level 96 mmol/L (98-107) Carbon Dioxide Level 30 mmol/L (21-32) Anion Gap 7 (6-14) Blood Urea Nitrogen 29 mg/dL (7-20) Creatinine 2.7 mg/dL (0.6-1.0) Estimated GFR (Cockcroft-Gault) 21.8 Glucose Level 96 mg/dL (70-99) Calcium Level 7.7 mg/dL (8.5-10.1) Magnesium Level 2.3 mg/dL (1.8-2.4) Glucose (Fingerstick) 110 mg/dL (70-99) Assessment and Plan Assessmemt and Plan Problems Medical Problems: (1) Acute on chronic respiratory failure Status: Acute (2) Altered mental status Status: Acute Comment Review of Relevant I have reviewed the following items lucas (where applicable) has been applied. Justifications for Admission Other Justification Fall, new right pleural effusion SARAVANAN VINCENT MD Dec 13, 2020 11:46
--- NOTE | 2020-12-13 14:23 | NUR ---
SS following up with discharge planning. SS reviewed pt chart and discussed with pt RN. Pt is currently requiring oxygen at five liters nasal canula and BIPAP HS and PRN. COVID19 recovered. Pt accepted at [facility], ; fax [phone], pending insurance authorization. SS discussed with Jairon at [facility], , and was notified that insurance authorization is still pending at this time. SS will continue to follow for discharge planning.
[2020-12-13 14:49] VITALS: BP 123/84
[2020-12-13 19:10] VITALS: BP 132/77
[2020-12-13] MEDS: FAMOTIDINE 20 MG TABLET. PO SCH (21:36)
[2020-12-13] MEDS: ATORVASTATIN CALCIUM 10 MG TABLET. PO SCH (21:36)
[2020-12-13] MEDS: GABAPENTIN 300 MG CAPSULE. PO SCH (21:36)
[2020-12-13] MEDS: ZOLPIDEM 5 MG TABLET. PO PRN (21:38)
[2020-12-13 22:35] VITALS: BP 147/85
[2020-12-14 03:39] VITALS: BP 126/84
[2020-12-14] MEDS: LEVOTHYROXINE 112 MCG TABLET PO SCH (05:54)
[2020-12-14 07:00] VITALS: BP 149/100
[2020-12-14] MEDS: INSULIN LISPRO 300 UNITS/3 ML VIAL. SQ SCH ×3 (08:00→17:00)
[2020-12-14] MEDS: BUDESONIDE 0.5 MG/2 ML NEBU. NEB SCH ×2 (08:00→18:01)
[2020-12-14] MEDS: IPRATRPIUM/ALBUTEROL 0.5/2.5MG 3 ML NEBU. NEB SCH ×4 (08:00→18:01)
[2020-12-14] MEDS: POLYETHYLENE GLYCOL 3350 17 GM PACKET. PO SCH (09:00)
[2020-12-14] MEDS: ESTROGENS, CONJUGATED 0.3 MG TABLET PO SCH (09:13)
[2020-12-14] MEDS: buPROPion XL 150 MG TAB.ER.24H. PO SCH (09:13)
[2020-12-14] MEDS: rOPINIRole 1 MG TABLET. PO SCH ×2 (09:13→21:24)
[2020-12-14] MEDS: CIPROFLOXACIN 0.3% OPHTH SOLUTION 5ML BOTTLE. OU SCH ×4 (09:13→21:24)
[2020-12-14 11:00] VITALS: BP 149/75
--- NOTE | 2020-12-14 11:39 | PDOC ---
[employer] PROGRESS NOTE Date of Service DOS: DATE: 12/14/20 TIME: 11:39 Chief Complaint Chief Complaint acute Toxic encephalopathy possibly due overuse of benzodiazepenes, with underlying anxiety - DC'd ativan and started on Ambien QHS recent acute hypoxic respiratory failure from pneumonia, covid, stable from DC possible aspiration pneumonia RECENT Fall - ct head negative, no other pain complaints, no fracture chronic systolic CHF s/p AICD , last EF 45% History of DVT bilateral legs Obesity BMI 35 Schizophrenia - Hypertension. COVID positive - 10/30/2020, still RECOVERING CKD 3-4, prior acute vasomotor nephropathy anemia, symptomatic, 1 u PRBC given yesterday, conjunctivitis, History of Present Illness History of Present Illness 12/14/2020 No acute events overnight. No acute agitative episodes. No benzos given. Pending insurance authorization for LTAC. Patient's chart, labs, images were reviewed and discussed with RN 12/13/2020 No acute events overnight. Saturating 98% on 5 L nasal cannula. No complaints voiced at this time and no concerns from nursing. P[facility] for [facility]. Patient's chart, labs, images were reviewed and discussed with RN 12/12/2020 No acute events overnight. Patient saturating well on 10 l nasal cannula 99%. No complaints voiced at this time. No nursing concerns. Pending LTAC approval. Patient's chart, labs, images were reviewed and discussed with RN 12/11/2020 No acute events overnight. Patient is currently on 5 L nasal cannula saturating 99%. No complaints voiced at this time. No agitation or lethargic episodes overnight. No benzos given. Patient's chart, labs, images were reviewed and discussed with RN 12/10/2020 No acute events overnight. Patient is tolerating BiPAP as needed and saturating on 5 L nasal cannula at 98%. No increased work of breath. Pending acceptance into SNF. Patient's chart, labs, images were reviewed and discussed with RN 12/09/20 No acute events overnight. tolerating BiPAP PRN and saturating 90% on 5 NC. > 50% time spent in patient chart, labs, and image review and discussion with RN and SW 12/08, more alert today, I think better without ANY BENZOS and we shoudl try to continue this. her ex- and her son Toni were both here today, I discussed plan to DC back to [place] maybe tomorrow, Toni would like to be called if that is the plan 12/07, still very weak, hypoxic, on BIPAP, will try albumin and lasix to try to optimize PULM fxn today cxr in AM if not better 12/06, some confusion this AM. discussed with her son by phone, he will be here today. Bipap PRN some right eye redness, no drainage, will start eye drops and cipro drops 12/05 I started estrogen/progestin today to taper the over prolifeative Endometrium that might be her anemia problem talked to the son at length yesterday will try to DC soon she is awake and getting better/stronger, , limited benzos and markedly better today, speech and PT and OT, restart rehab cont other current, I will decrease. Vitals/I&O Vitals/I&O: Vital Signs Date Time Temp Pulse Resp B/P (MAP) Pulse Ox O2 Delivery O2 Flow Rate FiO2 12/14/20 08:10 Nasal Cannula 4.0 12/14/20 08:02 95 12/14/20 07:00 96.0 107 22 149/100 (116) 96.0 I & O 0 12/13/20 12/13/20 12/14/20 15:00 23:00 07:00 Intake Total 480 ml 650 ml 0 ml Output Total 400 ml 350 ml Balance 480 ml 250 ml -350 ml Physical Exam General: Alert, Cooperative, No acute distress, Other Heart: Regular rate Lungs: Clear Abdomen: Normal bowel sounds, Soft Extremities: No cyanosis, No edema Skin: No breakdown Labs Labs: Laboratory Tests Test 12/13/20 16:05 12/13/20 20:34 12/14/20 08:04 Glucose (Fingerstick) 110 mg/dL (70-99) 107 mg/dL (70-99) 110 mg/dL (70-99) Assessment and Plan Assessmemt and Plan Problems Medical Problems: (1) Acute on chronic respiratory failure Status: Acute (2) Altered mental status Status: Acute Comment Review of Relevant I have reviewed the following items lucas (where applicable) has been applied. Justifications for Admission Other Justification Fall, new right pleural effusion SARAVANAN VINCENT MD Dec 14, 2020 11:39
[2020-12-14 15:00] VITALS: BP 115/83
--- NOTE | 2020-12-14 15:46 | NUR ---
Nursing: Patient was on 5L NC oxygen saturation dropped to 68%. Patient put on bipap and RT paged. RT came and assessed patient. Stable at this time, oxygen sat 97%
[2020-12-14 19:15] VITALS: BP 169/98
[2020-12-14] MEDS: GABAPENTIN 300 MG CAPSULE. PO SCH (21:24)
[2020-12-14] MEDS: ATORVASTATIN CALCIUM 10 MG TABLET. PO SCH (21:24)
[2020-12-14] MEDS: FAMOTIDINE 20 MG TABLET. PO SCH (21:24)
[2020-12-14 23:40] VITALS: BP 136/87
[2020-12-15 03:20] VITALS: BP 123/83
[2020-12-15] MEDS: LEVOTHYROXINE 112 MCG TABLET PO SCH (06:44)
[2020-12-15 07:00] VITALS: BP 148/88
[2020-12-15] MEDS: IPRATRPIUM/ALBUTEROL 0.5/2.5MG 3 ML NEBU. NEB SCH ×4 (07:43→20:08)
[2020-12-15] MEDS: BUDESONIDE 0.5 MG/2 ML NEBU. NEB SCH ×2 (07:44→20:08)
[2020-12-15] MEDS: INSULIN LISPRO 300 UNITS/3 ML VIAL. SQ SCH ×3 (08:00→17:00)
[2020-12-15] MEDS: ESTROGENS, CONJUGATED 0.3 MG TABLET PO SCH (08:45)
[2020-12-15] MEDS: buPROPion XL 150 MG TAB.ER.24H. PO SCH (08:45)
[2020-12-15] MEDS: rOPINIRole 1 MG TABLET. PO SCH ×2 (08:45→20:29)
[2020-12-15] MEDS: POLYETHYLENE GLYCOL 3350 17 GM PACKET. PO SCH ×2 (08:46→20:31)
[2020-12-15] MEDS: CIPROFLOXACIN 0.3% OPHTH SOLUTION 5ML BOTTLE. OU SCH ×4 (08:54→20:31)
--- NOTE | 2020-12-15 09:14 | PDOC ---
PULMONARY PROGRESS NOTES DATE: 12/15/20 TIME: 09:13 Subjective No overnight concerns from nursing Remains on 4 liters N/C Continues with BIPAP overnight Vitals Vital Signs Date Time Temp Pulse Resp B/P (MAP) Pulse Ox O2 Delivery O2 Flow Rate FiO2 12/15/20 07:44 97 Nasal Cannula 5.0 12/15/20 03:20 97.1 94 23 123/83 (96) 97.1 ROS: No Nausea, No Chest Pain, No Abdominal Pain, No Increase Cough General: Alert, Oriented X4 Lungs: Clear Cardiovascular: S1, S2 Abdomen: Soft, Non-tender Neuro Exam: Alert, Oriented Extremities: No Edema Skin: Warm, Dry Labs Laboratory Tests Test 12/13/20 09:35 12/13/20 11:13 12/13/20 16:05 12/13/20 20:34 White Blood Count 9.0 x10^3/uL (4.0-11.0) Red Blood Count 3.08 x10^6/uL (3.50-5.40) Hemoglobin 9.3 g/dL (12.0-15.5) Hematocrit 28.8 % (36.0-47.0) Mean Corpuscular Volume 94 fL (79-100) Mean Corpuscular Hemoglobin 30 pg (25-35) Mean Corpuscular Hemoglobin Concent 32 g/dL (31-37) Red Cell Distribution Width 18.6 % (11.5-14.5) Platelet Count 175 x10^3/uL (140-400) Neutrophils (%) (Auto) 72 % (31-73) Lymphocytes (%) (Auto) 16 % (24-48) Monocytes (%) (Auto) 8 % (0-9) Eosinophils (%) (Auto) 2 % (0-3) Basophils (%) (Auto) 2 % (0-3) Neutrophils # (Auto) 6.5 x10^3/uL (1.8-7.7) Lymphocytes # (Auto) 1.5 x10^3/uL (1.0-4.8) Monocytes # (Auto) 0.7 x10^3/uL (0.0-1.1) Eosinophils # (Auto) 0.2 x10^3/uL (0.0-0.7) Basophils # (Auto) 0.2 x10^3/uL (0.0-0.2) Sodium Level 133 mmol/L (136-145) Potassium Level 4.9 mmol/L (3.5-5.1) Chloride Level 96 mmol/L (98-107) Carbon Dioxide Level 30 mmol/L (21-32) Anion Gap 7 (6-14) Blood Urea Nitrogen 29 mg/dL (7-20) Creatinine 2.7 mg/dL (0.6-1.0) Estimated GFR (Cockcroft-Gault) 21.8 Glucose Level 96 mg/dL (70-99) Calcium Level 7.7 mg/dL (8.5-10.1) Magnesium Level 2.3 mg/dL (1.8-2.4) Glucose (Fingerstick) 110 mg/dL (70-99) 110 mg/dL (70-99) 107 mg/dL (70-99) Test 12/14/20 08:04 12/14/20 12:00 12/14/20 16:34 12/14/20 20:44 Glucose (Fingerstick) 110 mg/dL (70-99) 123 mg/dL (70-99) 96 mg/dL (70-99) 121 mg/dL (70-99) Test 12/15/20 08:01 Glucose (Fingerstick) 92 mg/dL (70-99) Laboratory Tests Test 12/14/20 12:00 12/14/20 16:34 12/14/20 20:44 12/15/20 08:01 Glucose (Fingerstick) 123 mg/dL (70-99) 96 mg/dL (70-99) 121 mg/dL (70-99) 92 mg/dL (70-99) Medications Active Scripts Medications Dose Route/Sig Max Daily Dose Days Date Category Dose Instructions Tramadol Hcl 50 Mg Tablet 50 Mg PO Q6HRS PRN 11/26/20 Reported Mylanta Maximum Strength Liq (Mag Hydrox/Aluminum Hyd/Simeth) 355 Ml Oral.susp 30 Ml PO PRN PRN 11/26/20 Reported Ativan (Lorazepam) 0.5 Mg Tablet 0.5 Mg PO Q8HRS PRN 11/26/20 Reported Ibu (Ibuprofen) 400 Mg Tablet 1 Tab PO Q6HRS PRN 5 11/26/20 Reported NEEDED FOR PAIN Wellbutrin Xl (Bupropion Hcl) 150 Mg Tab.er.24h 150 Mg PO DAILY 10/31/20 Reported Artificial Tears Drops (Peg 400/Hypromellose/Glycerin) 15 Ml Drops 1 Drop OS QID 30 10/31/20 Reported Folic Acid 0.4 Mg Tablet 0.4 Mg PO DAILY 10/31/20 Reported Duoneb 0.5-3(2.5) Mg/3 Ml (Albuterol/Ipratropium) 3 Ml Ampul.neb 3 Ml NEB Q4HRS 10/31/20 Reported Clonidine Hcl 0.2 Mg Tablet 0.2 Mg PO TID 10/31/20 Reported Multiple Vitamins (Multivitamin) 1 Each Tablet 1 Tab PO DAILY 30 10/31/20 Reported Miralax (Polyethylene Glycol 3350) 17 Gm Powd.pack 1 Packet PO DAILY 2 10/31/20 Reported dissolve in water Famotidine 20 Mg Tablet 20 Mg PO HS 10/31/20 Reported Zofran (Ondansetron Hcl) 4 Mg Tablet 4 Mg PO Q8HRS PRN 12/02/19 Reported Polyvinyl Alcohol 15 Ml Drops 2 Drop EACHEYE Q4HRS 30 12/02/19 Reported Ropinirole Hcl 1 Mg Tablet 1 Mg PO BID 12/02/19 Reported Magnesium Oxide 400 Mg Tablet 400 Mg PO DAILY 12/02/19 Reported Loratadine 10 Mg Tablet 10 Mg PO DAILY 12/02/19 Reported Humalog (Insulin Lispro) 100 Unit/1 Ml Vial 0 SQ BIDWMEALS 12/02/19 Reported 70 - 150 0 units 151 - 200 0 units 201 - 250 2 units 251 - 300 3 units 301 - 349 4 units if FSBS is under 70 or 350 and over call MD [guaifenesin Syrup] 10 Ml PO Q4HRS PRN 12/02/19 Reported Coreg (Carvedilol) 25 Mg Tablet 50 Mg PO BIDWMEALS 12/02/19 Reported Peridex (Chlorhexidine Gluconate) 15 Ml Mouthwash 15 Ml PO BID 30 12/02/19 Reported Swish in mouth for 30 seconds then spit out Calcium Carbonate 500 Mg Tablet 500 Mg PO Q4HRS 12/02/19 Reported Atorvastatin Calcium 10 Mg Tablet 10 Mg PO HS 12/02/19 Reported Acetaminophen 325 Mg Tablet 650 Mg PO Q6HRS 12/02/19 Reported Metformin Hcl 500 Mg Tablet 250 Mg PO BIDWMEALS 12/03/18 Reported Imodium A-D (Loperamide HCl) 2 Mg Capsule 2 Mg PO DAILY PRN 12/03/18 Reported Risperidone 0.5 Mg Tablet 0.5 Mg PO AFTRNOON 03/21/18 Reported Levothyroxine Sodium 112 Mcg Tablet 1 Tab PO DAILY 03/21/18 Reported Advair 500-50 Diskus (Fluticasone/Salmeterol) 1 Each Disk.w.dev 1 Puff IH BID 03/21/18 Reported Nystatin 15 Gm Powder 1 Scott TP PRN BID PRN 03/21/18 Reported Clonazepam (Clonazepam) 0.5 Mg Tablet 1 Tab PO BID 09/30/16 Reported Gas-X (Simethicone) 80 Mg Tab.chew 160 Mg PO Q2HR PRN 02/18/16 Reported Gabapentin (Gabapentin) 100 Mg Capsule 100 Mg PO TID 02/18/16 Reported Impression . IMPRESSION: 1. Wpfbl-[id number] hypercapnic respiratory failure secondary to acute exacerbation of chronic obstructive pulmonary disease. Could have been contributed to by effect of benzodiazepine. She was also noted to be off of her oxygen at the [facility] and may have triggered her hypox---improved with use of BIPAP 2. No new infiltrates. 3. Anemia-- improved 4. Chronic kidney disease. 5. Encephalopathy secondary to hypercapnia--resolved 6. Severe protein-calorie malnutrition. 7. Toxic encephalopathy,resolved 8. obesity suspect karely ohs Plan . 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 would benefit from LTACH placement, We will see on PRN basis, please call with questions or concerns MIGUEL NOE MD Dec 15, 2020 09:14
[2020-12-15 11:00] VITALS: BP 145/97
--- NOTE | 2020-12-15 11:43 | PDOC ---
[employer] PROGRESS NOTE Date of Service DOS: DATE: 12/15/20 TIME: 11:42 Chief Complaint Chief Complaint acute Toxic encephalopathy possibly due overuse of benzodiazepenes, with underlying anxiety - DC'd ativan and started on Ambien QHS recent acute hypoxic respiratory failure from pneumonia, covid, stable from DC possible aspiration pneumonia RECENT Fall - ct head negative, no other pain complaints, no fracture chronic systolic CHF s/p AICD , last EF 45% History of DVT bilateral legs Obesity BMI 35 Schizophrenia - Hypertension. COVID positive - 10/30/2020, still RECOVERING CKD 3-4, prior acute vasomotor nephropathy anemia, symptomatic, 1 u PRBC given yesterday, conjunctivitis, History of Present Illness History of Present Illness 12/15/2020 No acute events overnight. In the afternoon, patient did desaturate while on nasal cannula to 60%. Patient placed on BiPAP and clinically improved. Patient is currently on 5 L nasal cannula and saturating 93%. No concerns from nursing at this time. Patient's chart, labs, images were reviewed and discussed with RN 12/14/2020 No acute events overnight. No acute agitative episodes. No benzos given. Pending insurance authorization for LTAC. Patient's chart, labs, images were reviewed and discussed with RN 12/13/2020 No acute events overnight. Saturating 98% on 5 L nasal cannula. No complaints voiced at this time and no concerns from nursing. P[facility] for [facility]. Patient's chart, labs, images were reviewed and discussed with RN 12/12/2020 No acute events overnight. Patient saturating well on 10 l nasal cannula 99%. No complaints voiced at this time. No nursing concerns. Pending LTAC approval. Patient's chart, labs, images were reviewed and discussed with RN 12/11/2020 No acute events overnight. Patient is currently on 5 L nasal cannula saturating 99%. No complaints voiced at this time. No agitation or lethargic episodes overnight. No benzos given. Patient's chart, labs, images were reviewed and discussed with RN 12/10/2020 No acute events overnight. Patient is tolerating BiPAP as needed and saturating on 5 L nasal cannula at 98%. No increased work of breath. Pending acceptance into SNF. Patient's chart, labs, images were reviewed and discussed with RN 12/09/20 No acute events overnight. tolerating BiPAP PRN and saturating 90% on 5 NC. > 50% time spent in patient chart, labs, and image review and discussion with RN and SW 12/08, more alert today, I think better without ANY BENZOS and we shoudl try to continue this. her ex- and her son Toni were both here today, I discussed plan to DC back to [facility] maybe tomorrow, Toni would like to be called if that is the plan 12/07, still very weak, hypoxic, on BIPAP, will try albumin and lasix to try to optimize PULM fxn today cxr in AM if not better 12/06, some confusion this AM. discussed with her son by phone, he will be here today. Bipap PRN some right eye redness, no drainage, will start eye drops and cipro drops 12/05 I started estrogen/progestin today to taper the over prolifeative Endometrium that might be her anemia problem talked to the son at length yesterday will try to DC soon she is awake and getting better/stronger, , limited benzos and markedly better today, speech and PT and OT, restart rehab cont other current, I will decrease. Vitals/I&O Vitals/I&O: Vital Signs Date Time Temp Pulse Resp B/P (MAP) Pulse Ox O2 Delivery O2 Flow Rate FiO2 12/15/20 10:57 93 Nasal Cannula 4.0 12/15/20 07:00 97.5 102 20 148/88 (108) 97.5 I & O 12/14/20 12/14/20 12/15/20 15:00 23:00 07:00 Intake Total 250 ml 0 ml Output Total 150 ml Balance 250 ml -150 ml Physical Exam General: Alert, Cooperative, No acute distress, Other Heart: Regular rate Lungs: Clear Abdomen: Normal bowel sounds, Soft Extremities: No cyanosis, No edema Skin: No breakdown Labs Labs: Laboratory Tests Test 12/14/20 12:00 12/14/20 16:34 12/14/20 20:44 12/15/20 08:01 Glucose (Fingerstick) 123 mg/dL (70-99) 96 mg/dL (70-99) 121 mg/dL (70-99) 92 mg/dL (70-99) Test 12/15/20 11:40 Glucose (Fingerstick) 108 mg/dL (70-99) Assessment and Plan Assessmemt and Plan Problems Medical Problems: (1) Acute on chronic respiratory failure Status: Acute (2) Altered mental status Status: Acute Comment Review of Relevant I have reviewed the following items lucas (where applicable) has been applied. Justifications for Admission Other Justification Fall, new right pleural effusion SARAVANAN VINCENT MD Dec 15, 2020 11:43
[2020-12-15 12:51] LABS: CALCIUM 8.3 mg/dL (8.5-10.1); CREATININE 2.6 mg/dL (0.6-1.0); GFR 22.8; MAGNESIUM 2.5 mg/dL (1.8-2.4); POTASSIUM 5.5 mmol/L (3.5-5.1)
[2020-12-15 13:05] LABS: BASO # 0.1 x10^3/uL (0.0-0.2); BASO % 1 % (0-3); EOS # 0.1 x10^3/uL (0.0-0.7); EOS % 1 % (0-3); HEMOGLOBIN 9.7 g/dL (12.0-15.5); LYMPH # 1.6 x10^3/uL (1.0-4.8); LYMPH % 15 % (24-48); MEAN CORPUSCULAR HEMOGLOBIN 30 pg (25-35); MEAN CORPUSCULAR HGB CONC 31 g/dL (31-37); MEAN CORPUSCULAR VOLUME 95 fL (79-100); MONO # 0.8 x10^3/uL (0.0-1.1); MONO % 8 % (0-9); NEUT # 7.8 x10^3/uL (1.8-7.7); NEUT % 75 % (31-73); PLATELET COUNT 171 x10^3/uL (140-400); RED BLOOD COUNT 3.25 x10^6/uL (3.50-5.40); WHITE BLOOD COUNT 10.4 x10^3/uL (4.0-11.0)
[2020-12-15 15:00] VITALS: BP 150/88
[2020-12-15 19:45] VITALS: BP 132/92
[2020-12-15] MEDS: ACETAMINOPHEN 325 MG TABLET. PO PRN (20:29)
[2020-12-15] MEDS: GABAPENTIN 300 MG CAPSULE. PO SCH (20:29)
[2020-12-15] MEDS: ZOLPIDEM 5 MG TABLET. PO PRN (20:29)
[2020-12-15] MEDS: FAMOTIDINE 20 MG TABLET. PO SCH (20:29)
[2020-12-15] MEDS: ATORVASTATIN CALCIUM 10 MG TABLET. PO SCH (20:29)
[2020-12-15 23:10] VITALS: BP 145/94
[2020-12-16 03:45] VITALS: BP 153/94
[2020-12-16] MEDS: LEVOTHYROXINE 112 MCG TABLET PO SCH (05:53)
[2020-12-16 07:00] VITALS: BP 124/85
[2020-12-16] MEDS: BUDESONIDE 0.5 MG/2 ML NEBU. NEB SCH ×2 (07:36→20:00)
[2020-12-16] MEDS: IPRATRPIUM/ALBUTEROL 0.5/2.5MG 3 ML NEBU. NEB SCH ×4 (07:36→20:00)
[2020-12-16] MEDS: INSULIN LISPRO 300 UNITS/3 ML VIAL. SQ SCH ×3 (07:40→17:00)
[2020-12-16] MEDS: buPROPion XL 150 MG TAB.ER.24H. PO SCH (09:44)
[2020-12-16] MEDS: rOPINIRole 1 MG TABLET. PO SCH ×2 (09:44→20:32)
[2020-12-16] MEDS: POLYETHYLENE GLYCOL 3350 17 GM PACKET. PO SCH (09:44)
[2020-12-16] MEDS: ESTROGENS, CONJUGATED 0.3 MG TABLET PO SCH (09:44)
[2020-12-16] MEDS: CIPROFLOXACIN 0.3% OPHTH SOLUTION 5ML BOTTLE. OU SCH ×4 (09:46→20:33)
[2020-12-16 11:00] VITALS: BP 103/78
--- NOTE | 2020-12-16 11:47 | NUR ---
SS following up with discharge planning. SS reviewed pt chart and discussed with pt RN. Pt is currently requiring oxygen at five liters nasal canula and BIPAP HS and PRN. COVID19 recovered. Pt is LTC resident from [facility], ; fax [phone]. Pt was accepted at [facility] [phone]; fax [phone], pending insurance authorization from [place] Medicaid. SS was notified today that [place] Medicaid denied pt for LTACH with no option for peer to peer. Option was given to submit a written request for a fair hearing. Dr. Santo notified. SS will continue to follow for discharge planning.
--- NOTE | 2020-12-16 13:08 | PDOC ---
[employer] PROGRESS NOTE Date of Service DOS: DATE: 12/16/20 TIME: 13:00 Chief Complaint Chief Complaint A/P: Acute Encephalopathy - chronic due to schizophrenia Acute hypoxic respiratory failure from pneumonia, covid Likely aspiration pneumonia CHF s/p AICD not tolerant of BB, allergic to IZZY/ARB. 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 Obesity Recent COVID positive - 10/30/2020 JACKIE- Suspect ATN- no improvement , UA No Micr hematuria - Renal Bx ordered , per nursing report IR unable to at this time and recommned holding for 5-7 days and they are planning to schedule as OP Proteinuria- Nephrotic, No Micr hematuria , No WBC's or cast RECENT Fall - ct head negative, no other pain complaints, no fracture Hypertension. Anemia, symptomatic, 1 u PRBC given during stay Conjunctivitis SNU resident-generalized weakness History of Present Illness History of Present Illness Ms Mulligan is a 60 yo F w/ PMHx schizoaffective disorder, CHF with AICD in place, HLD, afib, depression with anxiety, HTN who returns to the hospital after confusion at her skilled nursing 1 day after a discharge, found hypoxic in the 60s. Was not on O2, though discharge with order for 3L NCO2 and prn BIPAP.. Patient was just discharged the day prior after prolonged stay secondary to COVID-19 pneumonia (tested positive on 10/30/2020 - still positive on 11/21/20), acute respiratory failure, acute renal insufficiency, and postmenopausal bleeding s/p D&C. At baseline she feels on 3 to 4 L nasal cannula, stays in [facility]. 12/05 I started estrogen/progestin today to taper the over prolifeative Endometrium that might be her anemia problem 12/06: some confusion this AM. discussed with her son by phone, he will be here today. Bipap PRN. some right eye redness, no drainage, will start eye drops and cipro drops 12/07: still very weak, hypoxic, on BIPAP, will try albumin and lasix to try to optimize PULM fxn today 12/08: more alert today, I think better without ANY BENZOS and we shoudl try to continue this. 12/09: No acute events overnight. tolerating BiPAP PRN and saturating 90% on 5 NC. > 50% time spent in patient chart, labs, and image review and discussion with RN and SW 12/10: No acute events overnight. Patient is tolerating BiPAP as needed and saturating on 5 L nasal cannula at 98%. No increased work of breath. 12/11: No acute events overnight. Patient is currently on 5 L nasal cannula saturating 99%. No complaints voiced at this time. No agitation or lethargic episodes overnight. No benzos given. 12/12: No acute events overnight. Patient saturating well on 10 l nasal cannula 99%. No complaints voiced at this time. No nursing concerns. Pending LTAC approval. Patient's chart, labs, images were reviewed and discussed with RN 12/13: No acute events overnight. Saturating 98% on 5 L nasal cannula. No complaints voiced at this time and no concerns from nursing. Pending [facility] approval for [facility]. 12/14: No acute events overnight. No acute agitative episodes. No benzos given. Pending insurance authorization for LTAC. Patient's chart, labs, images were reviewed and discussed with RN 12/15: No acute events overnight. In the afternoon, patient did desaturate while on nasal cannula to 60%. Patient placed on BiPAP and clinically improved. Patient is currently on 5 L nasal cannula and saturating 93%. Required BIPAP overnight, still hypoxic, on BIPAP currently. No pain complaints, just short of breath. D/w pulmonology will need LTACH on d/c for BIPAP titration given her recurrent admissions and BIPAP dependence. Vitals/I&O Vitals/I&O: Vital Signs Date Time Temp Pulse Resp B/P (MAP) Pulse Ox O2 Delivery O2 Flow Rate FiO2 12/16/20 11:06 BiPAP/CPAP 12/16/20 11:00 98.7 110 20 103/78 (86) 95 98.7 I & O 12/15/20 12/15/20 12/16/20 15:00 23:00 07:00 Intake Total 380 ml 280 ml 200 ml Output Total 150 ml Balance 380 ml 280 ml 50 ml Physical Exam General: Alert, Cooperative, No acute distress, Other Heart: Regular rate Lungs: Clear Abdomen: Normal bowel sounds, Soft Extremities: No cyanosis, No edema Skin: No breakdown Labs Labs: Laboratory Tests Test 12/15/20 17:01 12/15/20 21:16 2/1/21 07:34 12/16/20 11:40 Glucose (Fingerstick) 90 mg/dL (70-99) 96 mg/dL (70-99) 113 mg/dL (70-99) 104 mg/dL (70-99) Assessment and Plan Assessmemt and Plan Problems Medical Problems: (1) Acute on chronic respiratory failure Status: Acute (2) Altered mental status Status: Acute Comment Review of Relevant I have reviewed the following items lucas (where applicable) has been applied. Justifications for Admission Other Justification Fall, new right pleural effusion HAMILTON PEREZ MD Dec 16, 2020 13:08
--- NOTE | 2020-12-16 13:22 | NUR ---
Placed pt back on bipap due to destat into the lower 80's, will continue to monitor throughout shift.
[2020-12-16 15:00] VITALS: BP 115/75
[2020-12-16 19:51] VITALS: BP 134/83
[2020-12-16] MEDS: ZOLPIDEM 5 MG TABLET. PO PRN (20:32)
[2020-12-16] MEDS: GABAPENTIN 300 MG CAPSULE. PO SCH (20:32)
[2020-12-16] MEDS: FAMOTIDINE 20 MG TABLET. PO SCH (20:32)
[2020-12-16] MEDS: ACETAMINOPHEN 325 MG TABLET. PO PRN (20:33)
[2020-12-16] MEDS: ATORVASTATIN CALCIUM 10 MG TABLET. PO SCH (20:33)
[2020-12-16 22:53] VITALS: BP 116/81
[2020-12-17 03:06] VITALS: BP 131/73
[2020-12-17] MEDS: LEVOTHYROXINE 112 MCG TABLET PO SCH (06:03)
[2020-12-17 07:00] VITALS: BP 150/95
[2020-12-17] MEDS: INSULIN LISPRO 300 UNITS/3 ML VIAL. SQ SCH ×3 (08:00→17:00)
[2020-12-17] MEDS: BUDESONIDE 0.5 MG/2 ML NEBU. NEB SCH (08:00)
[2020-12-17] MEDS: IPRATRPIUM/ALBUTEROL 0.5/2.5MG 3 ML NEBU. NEB SCH ×3 (08:00→15:40)
[2020-12-17] MEDS: rOPINIRole 1 MG TABLET. PO SCH (08:26)
[2020-12-17] MEDS: buPROPion XL 150 MG TAB.ER.24H. PO SCH (08:26)
[2020-12-17] MEDS: POLYETHYLENE GLYCOL 3350 17 GM PACKET. PO SCH (08:26)
[2020-12-17] MEDS: ESTROGENS, CONJUGATED 0.3 MG TABLET PO SCH (08:26)
[2020-12-17] MEDS: CIPROFLOXACIN 0.3% OPHTH SOLUTION 5ML BOTTLE. OU SCH ×3 (08:27→17:00)
--- NOTE | 2020-12-17 09:56 | RAD ---
XR CHEST 1V Clinical Indication: Reason: SOA / Spl. Instructions: / History: Comparison: AP chest December 06, 2020. Findings: There is stable left chest dual-chamber biventricular ICD. The cardiomediastinal silhouette is stable . There is left basilar retrocardiac airspace disease. There is no pneumothorax. Question small bilat eral pleural effusions. No acute bone abnormality. IMPRESSION: 1. Left basilar retrocardiac airspace disease. 2. Small bilateral pleural effusions. Electronically signed by: Toni San MD (12/17/2020 9:53 AM) [id number]
[2020-12-17 10:08] VITALS: BP 145/101
--- NOTE | 2020-12-17 10:11 | PDOC ---
PULMONARY PROGRESS NOTES DATE: 12/17/20 TIME: 10:10 Subjective No overnight concerns from nursing Remains on 4 liters N/C remains weak Continues with BIPAP overnight Vitals Vital Signs Date Time Temp Pulse Resp B/P (MAP) Pulse Ox O2 Delivery O2 Flow Rate FiO2 12/17/20 08:00 Nasal Cannula 5.0 12/17/20 07:00 98.5 108 19 150/95 (113) 91 98.5 ROS: No Nausea, No Chest Pain, No Abdominal Pain, No Increase Cough General: Alert, Oriented X4 Lungs: Clear Cardiovascular: S1, S2 Abdomen: Soft, Non-tender Neuro Exam: Alert, Oriented Extremities: No Edema Skin: Warm, Dry Labs Laboratory Tests Test 12/15/20 11:40 12/15/20 12:20 12/15/20 17:01 12/15/20 21:16 Glucose (Fingerstick) 108 mg/dL (70-99) 90 mg/dL (70-99) 96 mg/dL (70-99) White Blood Count 10.4 x10^3/uL (4.0-11.0) Red Blood Count 3.25 x10^6/uL (3.50-5.40) Hemoglobin 9.7 g/dL (12.0-15.5) Hematocrit 31.0 % (36.0-47.0) Mean Corpuscular Volume 95 fL (79-100) Mean Corpuscular Hemoglobin 30 pg (25-35) Mean Corpuscular Hemoglobin Concent 31 g/dL (31-37) Red Cell Distribution Width 19.0 % (11.5-14.5) Platelet Count 171 x10^3/uL (140-400) Neutrophils (%) (Auto) 75 % (31-73) Lymphocytes (%) (Auto) 15 % (24-48) Monocytes (%) (Auto) 8 % (0-9) Eosinophils (%) (Auto) 1 % (0-3) Basophils (%) (Auto) 1 % (0-3) Neutrophils # (Auto) 7.8 x10^3/uL (1.8-7.7) Lymphocytes # (Auto) 1.6 x10^3/uL (1.0-4.8) Monocytes # (Auto) 0.8 x10^3/uL (0.0-1.1) Eosinophils # (Auto) 0.1 x10^3/uL (0.0-0.7) Basophils # (Auto) 0.1 x10^3/uL (0.0-0.2) Sodium Level 132 mmol/L (136-145) Potassium Level 5.5 mmol/L (3.5-5.1) Chloride Level 96 mmol/L (98-107) Carbon Dioxide Level 27 mmol/L (21-32) Anion Gap 9 (6-14) Blood Urea Nitrogen 32 mg/dL (7-20) Creatinine 2.6 mg/dL (0.6-1.0) Estimated GFR (Cockcroft-Gault) 22.8 Glucose Level 97 mg/dL (70-99) Calcium Level 8.3 mg/dL (8.5-10.1) Magnesium Level 2.5 mg/dL (1.8-2.4) Test 12/16/20 07:34 12/16/20 11:40 12/16/20 17:05 12/16/20 20:19 Glucose (Fingerstick) 113 mg/dL (70-99) 104 mg/dL (70-99) 89 mg/dL (70-99) 95 mg/dL (70-99) Test 12/17/20 07:05 Glucose (Fingerstick) 88 mg/dL (70-99) Laboratory Tests Test 12/16/20 11:40 12/16/20 17:05 12/16/20 20:19 12/17/20 07:05 Glucose (Fingerstick) 104 mg/dL (70-99) 89 mg/dL (70-99) 95 mg/dL (70-99) 88 mg/dL (70-99) Medications Active Scripts Medications Dose Route/Sig Max Daily Dose Days Date Category Dose Instructions Tramadol Hcl 50 Mg Tablet 50 Mg PO Q6HRS PRN 11/26/20 Reported Mylanta Maximum Strength Liq (Mag Hydrox/Aluminum Hyd/Simeth) 355 Ml Oral.susp 30 Ml PO PRN PRN 11/26/20 Reported Ativan (Lorazepam) 0.5 Mg Tablet 0.5 Mg PO Q8HRS PRN 11/26/20 Reported Ibu (Ibuprofen) 400 Mg Tablet 1 Tab PO Q6HRS PRN 5 11/26/20 Reported NEEDED FOR PAIN Wellbutrin Xl (Bupropion Hcl) 150 Mg Tab.er.24h 150 Mg PO DAILY 10/31/20 Reported Artificial Tears Drops (Peg 400/Hypromellose/Glycerin) 15 Ml Drops 1 Drop OS QID 30 10/31/20 Reported Folic Acid 0.4 Mg Tablet 0.4 Mg PO DAILY 10/31/20 Reported Duoneb 0.5-3(2.5) Mg/3 Ml (Albuterol/Ipratropium) 3 Ml Ampul.neb 3 Ml NEB Q4HRS 10/31/20 Reported Clonidine Hcl 0.2 Mg Tablet 0.2 Mg PO TID 10/31/20 Reported Multiple Vitamins (Multivitamin) 1 Each Tablet 1 Tab PO DAILY 30 10/31/20 Reported Miralax (Polyethylene Glycol 3350) 17 Gm Powd.pack 1 Packet PO DAILY 2 10/31/20 Reported dissolve in water Famotidine 20 Mg Tablet 20 Mg PO HS 10/31/20 Reported Zofran (Ondansetron Hcl) 4 Mg Tablet 4 Mg PO Q8HRS PRN 12/02/19 Reported Polyvinyl Alcohol 15 Ml Drops 2 Drop EACHEYE Q4HRS 30 12/02/19 Reported Ropinirole Hcl 1 Mg Tablet 1 Mg PO BID 12/02/19 Reported Magnesium Oxide 400 Mg Tablet 400 Mg PO DAILY 12/02/19 Reported Loratadine 10 Mg Tablet 10 Mg PO DAILY 12/02/19 Reported Humalog (Insulin Lispro) 100 Unit/1 Ml Vial 0 SQ BIDWMEALS 12/02/19 Reported 70 - 150 0 units 151 - 200 0 units 201 - 250 2 units 251 - 300 3 units 301 - 349 4 units if FSBS is under 70 or 350 and over call MD [guaifenesin Syrup] 10 Ml PO Q4HRS PRN 12/02/19 Reported Coreg (Carvedilol) 25 Mg Tablet 50 Mg PO BIDWMEALS 12/02/19 Reported Peridex (Chlorhexidine Gluconate) 15 Ml Mouthwash 15 Ml PO BID 30 12/02/19 Reported Swish in mouth for 30 seconds then spit out Calcium Carbonate 500 Mg Tablet 500 Mg PO Q4HRS 12/02/19 Reported Atorvastatin Calcium 10 Mg Tablet 10 Mg PO HS 12/02/19 Reported Acetaminophen 325 Mg Tablet 650 Mg PO Q6HRS 12/02/19 Reported Metformin Hcl 500 Mg Tablet 250 Mg PO BIDWMEALS 12/03/18 Reported Imodium A-D (Loperamide HCl) 2 Mg Capsule 2 Mg PO DAILY PRN 12/03/18 Reported Risperidone 0.5 Mg Tablet 0.5 Mg PO AFTRNOON 03/21/18 Reported Levothyroxine Sodium 112 Mcg Tablet 1 Tab PO DAILY 03/21/18 Reported Advair 500-50 Diskus (Fluticasone/Salmeterol) 1 Each Disk.w.dev 1 Puff IH BID 03/21/18 Reported Nystatin 15 Gm Powder 1 Scott TP PRN BID PRN 03/21/18 Reported Clonazepam (Clonazepam) 0.5 Mg Tablet 1 Tab PO BID 09/30/16 Reported Gas-X (Simethicone) 80 Mg Tab.chew 160 Mg PO Q2HR PRN 02/18/16 Reported Gabapentin (Gabapentin) 100 Mg Capsule 100 Mg PO TID 02/18/16 Reported Comments CXR IMPRESSION: 1. Left basilar retrocardiac airspace disease. 2. Small bilateral pleural effusions Impression . IMPRESSION: 1. [id number] hypercapnic respiratory failure secondary to acute exacerbation of chronic obstructive pulmonary disease. Could have been contributed to by effect of benzodiazepine. She was also noted to be off of her oxygen at the skilled care facility and may have triggered her hypox---improved with use of BIPAP 2. No new infiltrates. 3. Anemia-- improved 4. Chronic kidney disease. 5. Encephalopathy secondary to hypercapnia--resolved 6. Severe protein-calorie malnutrition. 7. Toxic encephalopathy,resolved 8. obesity suspect karely ohs Plan . RECOMMENDATIONS: Stable from respiratory standpoint Continue supplemental oxygen to keep sats 90%, currently on 5 liters N/C, wean as tolerated Continue NEBS including pulmicort Continue BIPAP at night and PRN, with day time napping Avoid benzo/sedative medications Follow speech recs -- currently on dysphasia I diet PT/OT --OOB as tolerated DVT/GI PPX D/W apron worker for D/C planning ---ok to D/C back to [facility] We will see on PRN basis, please call with questions or concerns MIGUEL NOE MD Dec 17, 2020 10:11
--- NOTE | 2020-12-17 10:25 | PDOC ---
[employer] PROGRESS NOTE Date of Service DOS: DATE: 12/17/20 TIME: 10:24 Chief Complaint Chief Complaint A/P: Acute Encephalopathy - chronic due to schizophrenia Acute hypoxic respiratory failure from pneumonia, covid Likely aspiration pneumonia CHF s/p AICD not tolerant of BB, allergic to IZZY/ARB. 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 Obesity Recent COVID positive - 10/30/2020 JACKIE- Suspect ATN- no improvement , UA No Micr hematuria - Renal Bx ordered , per nursing report IR unable to at this time and recommned holding for 5-7 days and they are planning to schedule as OP Proteinuria- Nephrotic, No Micr hematuria , No WBC's or cast RECENT Fall - ct head negative, no other pain complaints, no fracture Hypertension. Anemia, symptomatic, 1 u PRBC given during stay Conjunctivitis SNU resident-generalized weakness History of Present Illness History of Present Illness Ms Mulligan is a 60 yo F w/ PMHx schizoaffective disorder, CHF with AICD in place, HLD, afib, depression with anxiety, HTN who returns to the hospital after confusion at her retirement 1 day after a discharge, found hypoxic in the 60s. Was not on O2, though discharge with order for 3L NCO2 and prn BIPAP.. Patient was just discharged the day prior after prolonged stay secondary to COVID-19 pneumonia (tested positive on 10/30/2020 - still positive on 11/21/20), acute respiratory failure, acute renal insufficiency, and postmenopausal bleeding s/p D&C. At baseline she feels on 3 to 4 L nasal cannula, stays in [facility]. 12/05 I started estrogen/progestin today to taper the over prolifeative Endometrium that might be her anemia problem 12/06: some confusion this AM. discussed with her son by phone, he will be here today. Bipap PRN. some right eye redness, no drainage, will start eye drops and cipro drops 12/07: still very weak, hypoxic, on BIPAP, will try albumin and lasix to try to optimize PULM fxn today 12/08: more alert today, I think better without ANY BENZOS and we shoudl try to continue this. 12/09: No acute events overnight. tolerating BiPAP PRN and saturating 90% on 5 NC. > 50% time spent in patient chart, labs, and image review and discussion with RN and SW 12/10: No acute events overnight. Patient is tolerating BiPAP as needed and saturating on 5 L nasal cannula at 98%. No increased work of breath. 12/11: No acute events overnight. Patient is currently on 5 L nasal cannula saturating 99%. No complaints voiced at this time. No agitation or lethargic episodes overnight. No benzos given. 12/12: No acute events overnight. Patient saturating well on 10 l nasal cannula 99%. No complaints voiced at this time. No nursing concerns. Pending LTAC approval. Patient's chart, labs, images were reviewed and discussed with RN 12/13: No acute events overnight. Saturating 98% on 5 L nasal cannula. No complaints voiced at this time and no concerns from nursing. P[facility] for [facility]. 12/14: No acute events overnight. No acute agitative episodes. No benzos given. Pending insurance authorization for LTAC. Patient's chart, labs, images were reviewed and discussed with RN 12/15: No acute events overnight. In the afternoon, patient did desaturate while on nasal cannula to 60%. Patient placed on BiPAP and clinically improved. Patient is currently on 5 L nasal cannula and saturating 93%. 12/16: Required BIPAP overnight, still hypoxic, on BIPAP currently. No pain complaints, just short of breath. D/w pulmonology will need LTACH on d/c for BIPAP titration given her recurrent admissions and BIPAP dependence. BiPAP overnight. On 4 L NC O2 currently. No pain complaints less short of breath. Chest radiograph reviewed and improved from admission. Discussed with pulmonology with LTAC service denial the plan is to go back to SNF with BiPAP as needed while napping and at night as well as O2 when not on BiPAP. Vitals/I&O Vitals/I&O: Vital Signs Date Time Temp Pulse Resp B/P (MAP) Pulse Ox O2 Delivery O2 Flow Rate FiO2 12/17/20 10:08 97.9 109 22 145/101 (116) 94 Nasal Cannula 5.0 97.9 I & O 12/16/20 12/16/20 12/17/20 15:00 23:00 07:00 Intake Total 440 ml 100 ml Output Total 200 ml Balance 440 ml -100 ml Physical Exam General: Alert, Cooperative, No acute distress, Other Heart: Regular rate Lungs: Clear Abdomen: Normal bowel sounds, Soft Extremities: No cyanosis, No edema Skin: No breakdown Labs Labs: Laboratory Tests Test 12/16/20 11:40 12/16/20 17:05 12/16/20 20:19 12/17/20 07:05 Glucose (Fingerstick) 104 mg/dL (70-99) 89 mg/dL (70-99) 95 mg/dL (70-99) 88 mg/dL (70-99) Assessment and Plan Assessmemt and Plan Problems Medical Problems: (1) Acute on chronic respiratory failure Status: Acute (2) Altered mental status Status: Acute Comment Review of Relevant I have reviewed the following items lucas (where applicable) has been applied. Justifications for Admission Other Justification Fall, new right pleural effusion HAMILTON PEREZ MD Dec 17, 2020 10:24
[2020-12-17] MEDS ORDERED: CLON-77 PO (11:17)
--- NOTE | 2020-12-17 11:19 | SNU/HH DC ---
DISCHARGE ORDERS DISCHARGE INFORMATION: DISCHARGE DATE: Dec 17, 2020 FINAL DIAGNOSIS Problems Medical Problems: (1) Acute on chronic respiratory failure Status: Acute (2) Altered mental status Status: Acute CONDITION ON DISCHARGE: Stable CODE STATUS: Code Status: Full POST DISCHARGE ORDERS: ACTIVITY ORDERS: Activity as tolerated WEIGHT BEARING STATUS: No restrictions DIET AFTER DISCHARGE: Cardiac WOUND/INCISION CARE: No wound care needed CHECKS AFTER DISCHARGE: CHECKS AFTER DISCHARGE: Check blood press - daily, Check blood sugar, ac/hs, Check your Temp as needed TREATMENT/EQUIPMENT ORDERS: ADAPTIVE EQUIPMENT NEEDED: None RESPIRATORY EQUIPMENT NEEDED: Oxygen (4L /min when not on BIPAP), Nebulizer, BiPAP (24/6, rate of 30/min, FiO2 35%), [facility] Physical Therapy For: Evalulation/Treatment Occupational Therapy For: Evaluation/Treatment DISCHARGE MEDICATIONS: Home Meds Active Scripts Clonazepam (CLONAZEPAM ) 0.5 Mg Tablet, 1 TAB PO PRN BID PRN for ANXIETY / AGITATION for 30 Days, #30 TAB 1 Refill Prov:HAMILTON PEREZ MD 12/17/20 Reported Medications Mag Hydrox/Aluminum Hyd/Simeth (Mylanta Maximum Strength Liq) 355 Ml Oral.susp, 30 ML PO PRN PRN for UPSET STOMACH, MISC 11/26/20 Bupropion Hcl (WELLBUTRIN XL) 150 Mg Tab.er.24h, 150 MG PO DAILY for major depressive disorder, TAB.SR 10/31/20 Peg 400/Hypromellose/Glycerin (ARTIFICIAL TEARS DROPS) 15 Ml Drops, 1 DROP OS QID for irritation for 30 Days, #15 ML 0 Refills 10/31/20 Folic Acid (FOLIC ACID) 0.4 Mg Tablet, 0.4 MG PO DAILY for SUPPLEMENT, TAB 10/31/20 Ipratropium/Albuterol Sulfate (DUONEB 0.5-3(2.5) MG/3 ML) 3 Ml Ampul.neb, 3 ML NEB Q4HRS for sob, EACH 10/31/20 Multivitamin (MULTIPLE VITAMINS) 1 Each Tablet, 1 TAB PO DAILY for deficiency of other vitamins for 30 Days, #30 TAB 0 Refills 10/31/20 Polyethylene Glycol 3350 (MIRALAX) 17 Gm Powd.pack, 1 PACKET PO DAILY for constipation for 2 Days, #2 PACKET 0 Refills dissolve in water 10/31/20 Famotidine (FAMOTIDINE) 20 Mg Tablet, 20 MG PO HS for gerd, TAB 10/31/20 Ondansetron Hcl (ZOFRAN) 4 Mg Tablet, 4 MG PO Q8HRS PRN for NAUSEA/VOMITING, TAB 12/02/19 Polyvinyl Alcohol (POLYVINYL ALCOHOL) 15 Ml Drops, 2 DROP EACHEYE Q4HRS for dry eyes for 30 Days, #15 ML 0 Refills 12/02/19 Ropinirole Hcl (ROPINIROLE HCL) 1 Mg Tablet, 1 MG PO BID for restless leg , TAB 12/02/19 Magnesium Oxide (MAGNESIUM OXIDE) 400 Mg Tablet, 400 MG PO DAILY for Supplement, TAB 12/02/19 Loratadine (LORATADINE) 10 Mg Tablet, 10 MG PO DAILY for Allergic Rhinitis, TAB 12/02/19 Insulin Lispro (HUMALOG) 100 Unit/1 Ml Vial, 0 SQ BIDWMEALS for hyperglycemia, VIAL 70 - 150 0 units 151 - 200 0 units 201 - 250 2 units 251 - 300 3 units 301 - 349 4 units if FSBS is under 70 or 350 and over call MD 12/02/19 [guaifenesin Syrup] No Conflict Check, 10 ML PO Q4HRS PRN for COUGH 12/02/19 Carvedilol (COREG) 25 Mg Tablet, 50 MG PO BIDWMEALS for CARDIAC, TAB 12/02/19 Chlorhexidine Gluconate (PERIDEX) 15 Ml Mouthwash, 15 ML PO BID for Erosion of Teeth for 30 Days, #946 ML 0 Refills Swish in mouth for 30 seconds then spit out 12/02/19 Calcium Carbonate (CALCIUM CARBONATE) 500 Mg Tablet, 500 MG PO Q4HRS for Heartburn, TAB 12/02/19 Atorvastatin Calcium (ATORVASTATIN CALCIUM) 10 Mg Tablet, 10 MG PO HS for FOR CHOLESTEROL, #30 TAB 0 Refills 12/02/19 Acetaminophen (ACETAMINOPHEN) 325 Mg Tablet, 650 MG PO Q6HRS for pain/temp, TAB 12/02/19 Metformin Hcl (METFORMIN HCL) 500 Mg Tablet, 250 MG PO BIDWMEALS for ANTI- DIABETIC, TAB 0 Refills 12/03/18 Loperamide HCl (Imodium A-D) 2 Mg Capsule, 2 MG PO DAILY PRN for DIARRHEA, CAP 12/03/18 Risperidone (RISPERIDONE) 0.5 Mg Tablet, 0.5 MG PO AFTRNOON for , TAB 03/21/18 Levothyroxine Sodium (LEVOTHYROXINE SODIUM) 112 Mcg Tablet, 1 TAB PO DAILY, #30 TAB 5 Refills 03/21/18 Fluticasone/Salmeterol (ADVAIR 500-50 DISKUS) 1 Each Disk.w.dev, 1 PUFF IH BID, #1 INHALER 5 Refills 03/21/18 Nystatin (NYSTATIN) 15 Gm Powder, 1 TRAMAINE TP PRN BID PRN for RASH, #1 BOTTLE 03/21/18 Simethicone (GAS-X) 80 Mg Tab.chew, 160 MG PO Q2HR PRN for GAS / BLOATING, TAB.CHEW 02/18/16 Gabapentin (GABAPENTIN ) 100 Mg Capsule, 100 MG PO TID for pain, CAP 02/18/16 Discontinued Reported Medications Tramadol Hcl (TRAMADOL HCL) 50 Mg Tablet, 50 MG PO Q6HRS PRN for PAIN, TAB 11/26/20 Lorazepam (ATIVAN) 0.5 Mg Tablet, 0.5 MG PO Q8HRS PRN for ANXIETY, TAB 11/26/20 Ibuprofen (Ibu) 400 Mg Tablet, 1 TAB PO Q6HRS PRN for PAIN for 5 Days, #20 TAB 0 Refills NEEDED FOR PAIN 11/26/20 Clonidine Hcl (CLONIDINE HCL) 0.2 Mg Tablet, 0.2 MG PO TID for related to heart failure, TAB 10/31/20 HAMILTON PEREZ MD Dec 17, 2020 11:19
--- NOTE | 2020-12-17 11:21 | PDOC3 ---
Discharge Summary Visit Information Date of Admission: Dec 03, 2020 Date of Discharge: Dec 17, 2020 Admitting Diagnosis: Acute on chronic hypoxic respiratory failure Final Diagnosis Problems Medical Problems: (1) Acute on chronic respiratory failure Status: Acute (2) Altered mental status Status: Acute Brief Hospital Course Allergies Allergies Coded Allergies Type Severity Reaction Last Updated Verified lactose Allergy Intermediate 02/25/16 Yes lisinopril Allergy Intermediate 08/08/15 Yes Vital Signs Vital Signs Date Time Temp Pulse Resp B/P (MAP) Pulse Ox O2 Delivery O2 Flow Rate FiO2 12/17/20 10:08 97.9 109 22 145/101 (116) 94 Nasal Cannula 5.0 97.9 Lab Results Laboratory Tests Test 12/15/20 11:40 12/15/20 12:20 12/15/20 17:01 12/15/20 21:16 Glucose (Fingerstick) 108 mg/dL (70-99) 90 mg/dL (70-99) 96 mg/dL (70-99) White Blood Count 10.4 x10^3/uL (4.0-11.0) Red Blood Count 3.25 x10^6/uL (3.50-5.40) Hemoglobin 9.7 g/dL (12.0-15.5) Hematocrit 31.0 % (36.0-47.0) Mean Corpuscular Volume 95 fL (79-100) Mean Corpuscular Hemoglobin 30 pg (25-35) Mean Corpuscular Hemoglobin Concent 31 g/dL (31-37) Red Cell Distribution Width 19.0 % (11.5-14.5) Platelet Count 171 x10^3/uL (140-400) Neutrophils (%) (Auto) 75 % (31-73) Lymphocytes (%) (Auto) 15 % (24-48) Monocytes (%) (Auto) 8 % (0-9) Eosinophils (%) (Auto) 1 % (0-3) Basophils (%) (Auto) 1 % (0-3) Neutrophils # (Auto) 7.8 x10^3/uL (1.8-7.7) Lymphocytes # (Auto) 1.6 x10^3/uL (1.0-4.8) Monocytes # (Auto) 0.8 x10^3/uL (0.0-1.1) Eosinophils # (Auto) 0.1 x10^3/uL (0.0-0.7) Basophils # (Auto) 0.1 x10^3/uL (0.0-0.2) Sodium Level 132 mmol/L (136-145) Potassium Level 5.5 mmol/L (3.5-5.1) Chloride Level 96 mmol/L (98-107) Carbon Dioxide Level 27 mmol/L (21-32) Anion Gap 9 (6-14) Blood Urea Nitrogen 32 mg/dL (7-20) Creatinine 2.6 mg/dL (0.6-1.0) Estimated GFR (Cockcroft-Gault) 22.8 Glucose Level 97 mg/dL (70-99) Calcium Level 8.3 mg/dL (8.5-10.1) Magnesium Level 2.5 mg/dL (1.8-2.4) Test 12/16/20 07:34 12/16/20 11:40 12/16/20 17:05 12/16/20 20:19 Glucose (Fingerstick) 113 mg/dL (70-99) 104 mg/dL (70-99) 89 mg/dL (70-99) 95 mg/dL (70-99) Test 12/17/20 07:05 12/17/20 11:03 Glucose (Fingerstick) 88 mg/dL (70-99) 108 mg/dL (70-99) Laboratory Tests Test 12/16/20 11:40 12/16/20 17:05 12/16/20 20:19 12/17/20 07:05 Glucose (Fingerstick) 104 mg/dL (70-99) 89 mg/dL (70-99) 95 mg/dL (70-99) 88 mg/dL (70-99) Test 12/17/20 11:03 Glucose (Fingerstick) 108 mg/dL (70-99) Brief Hospital Course Ms Mulligan is a 60 yo F w/ PMHx schizoaffective disorder, CHF with AICD in place, HLD, afib, depression with anxiety, HTN who returns to the hospital after confusion at her retirement 1 day after a discharge, found hypoxic in the 60s. Was not on O2, though discharge with order for 3L NCO2 and prn BIPAP.. Patient was just discharged the day prior after prolonged stay secondary to COVID-19 pneumonia (tested positive on 10/30/2020 - still positive on 11/21/20), acute respiratory failure, acute renal insufficiency, and postmenopausal bleeding s/p D&C. At baseline she feels on 3 to 4 L nasal cannula, [facility]. Consults: Pulmonology 12/05 I started estrogen/progestin today to taper the over prolifeative Endometrium that might be her anemia problem 12/06: some confusion this AM. discussed with her son by phone, he will be here today. Bipap PRN. some right eye redness, no drainage, will start eye drops and cipro drops 12/07: still very weak, hypoxic, on BIPAP, will try albumin and lasix to try to optimize PULM fxn today 12/08: more alert today, I think better without ANY BENZOS and we shoudl try to continue this. 12/09: No acute events overnight. tolerating BiPAP PRN and saturating 90% on 5 NC. > 50% time spent in patient chart, labs, and image review and discussion with RN and SW 12/10: No acute events overnight. Patient is tolerating BiPAP as needed and saturating on 5 L nasal cannula at 98%. No increased work of breath. 12/11: No acute events overnight. Patient is currently on 5 L nasal cannula saturating 99%. No complaints voiced at this time. No agitation or lethargic episodes overnight. No benzos given. 12/12: No acute events overnight. Patient saturating well on 10 l nasal cannula 99%. No complaints voiced at this time. No nursing concerns. Pending LTAC approval. Patient's chart, labs, images were reviewed and discussed with RN 12/13: No acute events overnight. Saturating 98% on 5 L nasal cannula. No complaints voiced at this time and no concerns from nursing. Pending insurance approval for [facility]. 12/14: No acute events overnight. No acute agitative episodes. No benzos given. Pending insurance authorization for LTAC. Patient's chart, labs, images were reviewed and discussed with RN 12/15: No acute events overnight. In the afternoon, patient did desaturate while on nasal cannula to 60%. Patient placed on BiPAP and clinically improved. Patient is currently on 5 L nasal cannula and saturating 93%. 12/16: Required BIPAP overnight, still hypoxic, on BIPAP currently. No pain complaints, just short of breath. D/w pulmonology will need LTACH on d/c for BIPAP titration given her recurrent admissions and BIPAP dependence. BiPAP overnight. On 4 L NC O2 currently. No pain complaints less short of breath. Chest radiograph reviewed and improved from admission. Discussed with pulmonology with LTAC service denial the plan is to go back to SNF with BiPAP as needed while napping and at night as well as O2 when not on BiPAP. Problem list: Acute Encephalopathy - hypercapnea complicated by chronic due to schizophrenia Acute hypoxic respiratory failure from pneumonia, covid Likely aspiration pneumonia CHF s/p AICD not tolerant of BB, allergic to IZZY/ARB. 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 Obesity Recent COVID positive - 10/30/2020 JACKIE- Suspect ATN- no improvement , UA No Micr hematuria - Renal Bx ordered , per nursing report IR unable to at this time and recommned holding for 5-7 days and they are planning to schedule as OP Proteinuria- Nephrotic, No Micr hematuria , No WBC's or cast RECENT Fall - ct head negative, no other pain complaints, no fracture Hypertension. Anemia, symptomatic, 1 u PRBC given during stay Conjunctivitis SNU resident-generalized weakness Greater than 30 minutes spent on d/c to SNF Discharge Information Condition at Discharge: Improved Follow Up: Weeks (1) Disposition/Orders: D/C to Another Facility Scheduled Acetaminophen (Acetaminophen) 325 Mg Tablet, 650 MG PO Q6HRS for pain/temp, (Reported) Entered as Reported by: ELYSSA BOOTH on 12/02/19224 Last Action: Reviewed on 12/03/202346 by ZA CONTRERAS RN Atorvastatin Calcium (Atorvastatin Calcium) 10 Mg Tablet, 10 MG PO HS for FOR CHOLESTEROL, #30 Ref 0 (Reported) Entered as Reported by: ELYSSA BOOTH on 12/02/19225 Last Action: Reviewed on 12/03/202346 by ZA CONTRERAS RN Bupropion Hcl (Wellbutrin Xl) 150 Mg Tab.er.24h, 150 MG PO DAILY for major depressive disorder, (Reported) Entered as Reported by: DAVIE BERRIOS on 10/31/20 0510 Last Action: Reviewed on 12/03/202346 by ZA CONTRERAS RN Calcium Carbonate (Calcium Carbonate) 500 Mg Tablet, 500 MG PO Q4HRS for Heartburn, (Reported) Entered as Reported by: ELYSSA BOOTH on 12/02/19227 Last Action: Reviewed on 12/03/202346 by ZA CONTRERAS RN Carvedilol (Coreg) 25 Mg Tablet, 50 MG PO BIDWMEALS for CARDIAC, (Reported) Entered as Reported by: ELYSSA BOOTH on 12/02/19 0236 Last Action: Reviewed on 12/03/202346 by ZA CONTRERAS RN Chlorhexidine Gluconate (Peridex) 15 Ml Mouthwash, 15 ML PO BID for Erosion of Teeth for 30 Days, #946 Ref 0 (Reported) Swish in mouth for 30 seconds then spit out Entered as Reported by: ELYSSA BOOTH on 12/02/194 Last Action: Reviewed on 12/03/202346 by ZA CONTRERAS RN Famotidine (Famotidine) 20 Mg Tablet, 20 MG PO HS for gerd, (Reported) Entered as Reported by: DAVIE BERRIOS on 10/31/20 0510 Last Action: Continued on 12/03/201836 by HOMER BREEN Fluticasone/Salmeterol (Advair 500-50 Diskus) 1 Each Disk.w.dev, 1 PUFF IH BID, #1 Ref 5 (Reported) Entered as Reported by: MARITZA SPIVEY on 03/21/18 0803 Last Action: Reviewed on 12/03/202346 by ZA CONTRERAS RN Folic Acid (Folic Acid) 0.4 Mg Tablet, 0.4 MG PO DAILY for SUPPLEMENT, (Reported) Entered as Reported by: DAVIE BERRIOS on 10/31/20 0510 Last Action: Reviewed on 12/03/202346 by ZA CONTRERAS RN Gabapentin (Gabapentin ) 100 Mg Capsule, 100 MG PO TID for pain, (Reported) Entered as Reported by: ODIN RALPH on 02/18/16 1101 Last Action: Reviewed on 12/03/202346 by ZA CONTRERAS RN Insulin Lispro (Humalog) 100 Unit/1 Ml Vial, 0 SQ BIDWMEALS for hyperglycemia, (Reported) 70 - 150 0 units 151 - 200 0 units 201 - 250 2 units 251 - 300 3 units 301 - 349 4 units if FSBS is under 70 or 350 and over call MD Entered as Reported by: ELYSSA BOOTH on 12/02/19 0257 Last Action: Edited on 12/03/202346 by ZA CONTRERAS RN Ipratropium/Albuterol Sulfate (Duoneb 0.5-3(2.5) Mg/3 Ml) 3 Ml Ampul.neb, 3 ML NEB Q4HRS for sob, (Reported) Entered as Reported by: DAVIE BERRIOS on 10/31/20 05 Last Action: Reviewed on 12/03/202346 by ZA CONTRERAS RN Levothyroxine Sodium (Levothyroxine Sodium) 112 Mcg Tablet, 1 TAB PO DAILY, #30 Ref 5 (Reported) Entered as Reported by: MARITZA SPIVEY on 03/21/18 0803 Last Action: Reviewed on 12/03/202346 by ZA CONTRERAS RN Loratadine (Loratadine) 10 Mg Tablet, 10 MG PO DAILY for Allergic Rhinitis, (Rep orted) Entered as Reported by: ELYSSA BOOTH on 12/02/19 0303 Last Action: Reviewed on 12/03/202346 by ZA CONTRERAS RN Magnesium Oxide (Magnesium Oxide) 400 Mg Tablet, 400 MG PO DAILY for Supplement, (Reported) Entered as Reported by: ELYSSA BOOTH on 12/02/19 0304 Last Action: Reviewed on 12/03/202346 by ZA CONTRERAS RN Metformin Hcl (Metformin Hcl) 500 Mg Tablet, 250 MG PO BIDWMEALS for ANTI- DIABETIC, Ref 0 (Reported) Entered as Reported by: SAMIRA GONZALES on 12/03/182228 Last Action: Reviewed on 12/03/202346 by ZA CONTRERAS RN Multivitamin (Multiple Vitamins) 1 Each Tablet, 1 TAB PO DAILY for deficiency of other vitamins for 30 Days, #30 Ref 0 (Reported) Entered as Reported by: DAVIE BERRIOS on 10/31/20 05 Last Action: Reviewed on 12/03/202346 by ZA CONTRERAS RN Peg 400/Hypromellose/Glycerin (Artificial Tears Drops) 15 Ml Drops, 1 DROP OS QID for irritation for 30 Days, #15 Ref 0 (Reported) Entered as Reported by: DAVIE BERRIOS on 10/31/20 0510 Last Action: Reviewed on 12/03/202346 by ZA CONTRERAS RN Polyethylene Glycol 3350 (Miralax) 17 Gm Powd.pack, 1 PACKET PO DAILY for constipation for 2 Days, #2 Ref 0 (Reported) dissolve in water Entered as Reported by: DAVIE BERRIOS on 10/31/20 0510 Last Action: Reviewed on 12/03/202346 by ZA CONTRERAS RN Polyvinyl Alcohol (Polyvinyl Alcohol) 15 Ml Drops, 2 DROP EACHEYE Q4HRS for dry eyes for 30 Days, #15 Ref 0 (Reported) Entered as Reported by: ELYSSA BOOTH on 12/02/19 0320 Last Action: Reviewed on 12/03/202346 by ZA COTNRERAS RN Risperidone (Risperidone) 0.5 Mg Tablet, 0.5 MG PO AFTRNOON for , (Reported) Entered as Reported by: MARITZA SPIVEY on 03/21/18 0803 Last Action: Edited on 12/03/202346 by ZA CONTRERAS RN Ropinirole Hcl (Ropinirole Hcl) 1 Mg Tablet, 1 MG PO BID for restless leg , (Reported) Entered as Reported by: ELYSSA BOOTH on 12/02/197 Last Action: Continued on 12/04/20909 by HOMER BREEN Scheduled PRN Clonazepam (Clonazepam ) 0.5 Mg Tablet, 1 TAB PO PRN BID PRN for ANXIETY / AGITATION for 30 Days, #30 Ref 1 Prescribed by: HAMILTON PEREZ MD on 12/17/20 1117 Loperamide HCl (Imodium A-D) 2 Mg Capsule, 2 MG PO DAILY PRN for DIARRHEA, (Re ported) Entered as Reported by: SAMIRA GONZALES on 12/03/182228 Last Action: Reviewed on 12/03/202346 by ZA CONTRERAS RN Mag Hydrox/Aluminum Hyd/Simeth (Mylanta Maximum Strength Liq) 355 Ml Oral.susp, 30 ML PO PRN PRN for UPSET STOMACH, (Reported) Entered as Reported by: FREDI HAGAN RN on 11/26/20 0820 Last Action: Reviewed on 12/03/202346 by ZA CONTRERAS RN Nystatin (Nystatin) 15 Gm Powder, 1 TRAMAINE TP PRN BID PRN for RASH, #1 (Reported) Entered as Reported by: MARITZA SPIVEY on 03/21/18 0803 Last Action: Reviewed on 12/03/202346 by ZA CONTRERAS RN Ondansetron Hcl (Zofran) 4 Mg Tablet, 4 MG PO Q8HRS PRN for NAUSEA/VOMITING, (Reported) Entered as Reported by: ELYSSA BOOTH on 12/02/19 0324 Last Action: Reviewed on 12/03/202346 by ZA CONTRERAS RN Simethicone (Gas-X) 80 Mg Tab.chew, 160 MG PO Q2HR PRN for GAS / BLOATING, (Reported) Entered as Reported by: ODIN RALPH on 02/18/16 1101 Last Action: Reviewed on 12/03/202346 by ZA CONTRERAS RN [guaifenesin Syrup] , 10 ML PO Q4HRS PRN for COUGH, (Reported) Entered as Reported by: ELYSSA BOOTH on 12/02/19 0247 Last Action: Reviewed on 12/03/202346 by ZA CONTRERAS RN Discontinued Medications Clonidine Hcl (Clonidine Hcl) 0.2 Mg Tablet, 0.2 MG PO TID for related to heart failure, (Reported) Entered as Reported by: DAVIE BERRIOS on 10/31/20 0510 Last Action: Reviewed on 12/03/202346 by ZA CONTRERAS RN Ibuprofen (Ibu) 400 Mg Tablet, 1 TAB PO Q6HRS PRN for PAIN for 5 Days, #20 Ref 0 (Reported) NEEDED FOR PAIN Entered as Reported by: FREDI HAGAN RN on 11/26/20 0814 Last Action: Reviewed on 12/03/202346 by ZA CONTRERAS RN Lorazepam (Ativan) 0.5 Mg Tablet, 0.5 MG PO Q8HRS PRN for ANXIETY, (Reported) Entered as Reported by: FREDI HAGAN RN on 11/26/20 0820 Last Action: Continued on 12/04/20 0910 by HOMER BREEN Tramadol Hcl (Tramadol Hcl) 50 Mg Tablet, 50 MG PO Q6HRS PRN for PAIN, (Reported) Entered as Reported by: FREDI HAGAN RN on 11/26/20 0820 Last Action: Reviewed on 12/03/20 0929 by ZA CONTRERAS RN Justicifation of Admission Dx: Justifications for Admission: Justification of Admission Dx: Yes HAMILTON PEREZ MD Dec 17, 2020 11:21
--- NOTE | 2020-12-17 12:36 | NUR ---
SS following up with discharge planning. SS reviewed pt chart and discussed with pt RN. Pt is currently requiring oxygen at five liters nasal canula and BIPAP at . COVID19 recovered. Pt was denied by insurance for LTACH. Discharge orders for return to [facility], ; fax [phone], received. SS phoned and faxed discharge orders and clinical to [facility]. SS discussed with Reena at [facility]. Reena reported that she would review with nursing staff and would notify SS with transportation time for discharge. SS notified Reena that pt is stretcher transport. Pt, pt's RN, and pt's son notified.
[2020-12-17 14:42] VITALS: BP 149/88
--- NOTE | 2020-12-17 15:42 | NUR ---
SS following up with discharge planning. Pt will discharge today and return to [facility] at 1630 via [facility] ambulance. Pt, pt's RN, and pt's son notified. Packet and ambulance form on the chart.
--- NOTE | 2020-12-17 17:45 | NUR ---
discharge: All belongings with patient. Copy of chart sent with patient. report called to [facility] [phone]. Patient assisted off of unit via gurney accompanied by NAKIA medina.
== END 2020-12-17 15:40 | DRG 189 ==
LOC: ER 14:07 → 1 WEST ICU 16:21 → 2 NORTH 19:03
PROVIDERS: ADMIT Internal Medicine; ATTEND Internal Medicine
PROC: 5A09357 Assistance with Respiratory Ventilation, Less than 24 Consecutive Hours, Continuous Positive Airway Pressure (ICD-10-PCS; 2020-12-03)
PROC: 30233N1 Transfusion of Nonautologous Red Blood Cells into Peripheral Vein, Percutaneous Approach (ICD-10-PCS; principal; 2020-12-04)
PROC: 5A09357 Assistance with Respiratory Ventilation, Less than 24 Consecutive Hours, Continuous Positive Airway Pressure (ICD-10-PCS; 2020-12-04)
PROC: 5A09357 Assistance with Respiratory Ventilation, Less than 24 Consecutive Hours, Continuous Positive Airway Pressure (ICD-10-PCS; 2020-12-05)
PROC: 5A09357 Assistance with Respiratory Ventilation, Less than 24 Consecutive Hours, Continuous Positive Airway Pressure (ICD-10-PCS; 2020-12-06)
PROC: 5A09357 Assistance with Respiratory Ventilation, Less than 24 Consecutive Hours, Continuous Positive Airway Pressure (ICD-10-PCS; 2020-12-07)
PROC: 5A09357 Assistance with Respiratory Ventilation, Less than 24 Consecutive Hours, Continuous Positive Airway Pressure (ICD-10-PCS; 2020-12-08)
PROC: 5A09357 Assistance with Respiratory Ventilation, Less than 24 Consecutive Hours, Continuous Positive Airway Pressure (ICD-10-PCS; 2020-12-09)
PROC: 5A09357 Assistance with Respiratory Ventilation, Less than 24 Consecutive Hours, Continuous Positive Airway Pressure (ICD-10-PCS; 2020-12-10)
PROC: 5A09357 Assistance with Respiratory Ventilation, Less than 24 Consecutive Hours, Continuous Positive Airway Pressure (ICD-10-PCS; 2020-12-11)
PROC: 5A09357 Assistance with Respiratory Ventilation, Less than 24 Consecutive Hours, Continuous Positive Airway Pressure (ICD-10-PCS; 2020-12-12)
DX: J96.21 Acute and chronic respiratory failure with hypoxia (principal); U07.1 COVID-19; J69.0 Pneumonitis due to inhalation of food and vomit; E43 Unspecified severe protein-calorie malnutrition; G92 Toxic encephalopathy; N17.0 Acute kidney failure with tubular necrosis; N18.4 Chronic kidney disease, stage 4 (severe); I13.0 Hypertensive heart and chronic kidney disease with heart failure and stage 1 through stage 4 chronic kidney disease, or unspecified chronic kidney disease; J98.11 Atelectasis; J44.1 Chronic obstructive pulmonary disease with (acute) exacerbation; I50.22 Chronic systolic (congestive) heart failure; J96.22 Acute and chronic respiratory failure with hypercapnia; M19.90 Unspecified osteoarthritis, unspecified site; K21.9 Gastro-esophageal reflux disease without esophagitis; E78.00 Pure hypercholesterolemia, unspecified; E03.9 Hypothyroidism, unspecified; F25.9 Schizoaffective disorder, unspecified; I48.91 Unspecified atrial fibrillation; G25.81 Restless legs syndrome; E78.5 Hyperlipidemia, unspecified; E11.22 Type 2 diabetes mellitus with diabetic chronic kidney disease; D64.9 Anemia, unspecified; E66.9 Obesity, unspecified; H10.9 Unspecified conjunctivitis; N95.0 Postmenopausal bleeding; F41.8 Other specified anxiety disorders; Z68.37 Body mass index [BMI] 37.0-37.9, adult; Z86.718 Personal history of other venous thrombosis and embolism; Z87.891 Personal history of nicotine dependence; Z95.810 Presence of automatic (implantable) cardiac defibrillator; Z88.8 Allergy status to other drugs, medicaments and biological substances; Z82.49 Family history of ischemic heart disease and other diseases of the circulatory system
CPT/HCPCS: 36415; 36600; 51798; 70450; 71045; 80048; 80053; 81001; 82805; 82962; 83605; 83735; 84484; 85007; 85025; 86850; 86900; 86901; 86920; 87040; 93005; 94640; 94660; 94760; 96360; 96361; J1815; J1940; J3420; J7030; J7042; P9016; P9046; 92526-GN; 92610-GN; 97110-GO; 97110-GP; 97116-GP; 97530-GO; 97530-GP; 97535-GO; 99285-25; G0378; J7626

== ENCOUNTER 2020-12-18 12:04 | Emergency (ER) | payer MEDICAID ==
[2020-12-17 14:42] VITALS: BP 149/88
[~2020-12-18 12:04] MED LIST changes: +AMIODARONE 150 MG/3 ML VIAL ONE; +EPINEPHrine SYRINGE 1 MG/10 ML SYRINGE ONE; +SODIUM BICARB ADULT 8.4% 50 MEQ/50 ML DISP.SYRIN. ONE
[2020-12-18] MEDS ORDERED: EPINEPHrine VIAL 5 MG in IV NORMAL SALINE 250ML 250 ML IV ONE (12:30)
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
== END 2020-12-18 16:15 ==
LOC: ER 12:04
DX: I46.9 Cardiac arrest, cause unspecified (principal); I47.2 Ventricular tachycardia; I48.20 Chronic atrial fibrillation, unspecified; J45.909 Unspecified asthma, uncomplicated; E11.9 Type 2 diabetes mellitus without complications; F32.9 Major depressive disorder, single episode, unspecified; I50.9 Heart failure, unspecified; K21.9 Gastro-esophageal reflux disease without esophagitis; E78.00 Pure hypercholesterolemia, unspecified; E03.9 Hypothyroidism, unspecified; F20.9 Schizophrenia, unspecified; Z87.891 Personal history of nicotine dependence; Z95.0 Presence of cardiac pacemaker; Z98.890 Other specified postprocedural states; Z88.8 Allergy status to other drugs, medicaments and biological substances
CPT/HCPCS: 31500; 92950; 99291; J0171; J0282; J3490